=== PATIENT | female | born 1965 | race Caucasian/White ===

== ENCOUNTER 2020-04-02 09:37 | Emergency (ER) | payer MEDICAID, SELFPAY ==
[2020-04-02 09:44] VITALS: BP 117/71; BP 148/72; PULSE 120; PULSE 90; RESP 21; TEMP 36.7; O2SAT 96; O2SAT 99; BMI 31.5
[2020-04-02 09:53] VITALS: BP 117/71; PULSE 90; RESP 21; TEMP 36.7; O2SAT 97; BMI 31.1
--- NOTE | 2020-04-02 10:14 | XR_ITS ---
EXAMINATION: CHEST X-RAY CLINICAL INFORMATION: Chest pain COMPARISON: Previous chest x-ray January 2020 TECHNIQUE: AP portable chest FINDINGS: The cardiac and mediastinal contours are normal. The lungs are clear. There is no pleural effusion or pneumothorax. Bony structures are unremarkable. IMPRESSION: Unremarkable exam.
--- NOTE | 2020-04-02 10:19 | ED.CHESTPAIN ---
HPI - Chest Pain General Chief Complaint: Chest Pain Stated Complaint: CHEST PAIN,NITRO GIVEN Time Seen by Provider: 04/02/20 10:13 Source: patient and EMS Mode of arrival: EMS Limitations: no limitations History of Present Illness MD complaint: chest pain Onset (ago): day(s) (last night) Timing of current episode: constant Prior episodes: Yes Onset: during rest Pain location: substernal and left chest Pain radiation: left arm Severity: moderate Quality: heaviness Relieving factors: nothing Exacerbating factors: nothing Associated symptoms: dyspnea Treatment prior to arrival: nitroglycerin Related Data Home Medications Medication Instructions Recorded Confirmed Lipitor 04/02/20 amlodipine 04/02/20 clonazepam [Klonopin] 0.5 mg PO BID 04/02/20 04/02/20 gabapentin 100 mg PO DAILY 04/02/20 04/02/20 gabapentin 400 mg PO BEDTIME 04/02/20 04/02/20 iron 04/02/20 mirtazapine [Remeron] 30 mg PO BEDTIME 04/02/20 04/02/20 quetiapine [Seroquel] 50 mg PO BEDTIME 04/02/20 04/02/20 zolpidem [Ambien] 10 mg PO BEDTIME PRN 04/02/20 04/02/20 Allergies Allergy/AdvReac Type Severity Reaction Status Date / Time aspirin [ASA] Allergy Intermediate RASH, Unverified 03/19/20 15:41 nausea and vomiting ibuprofen [IBUPROFEN] Allergy Intermediate RASH Unverified 03/19/20 15:41 nicotine Allergy Intermediate RASH FROM Unverified 03/19/20 15:41 NICOTINE PATCH, nausea and vomiting ketorolac [From TORADOL] Allergy Mild RAPID HR Unverified 03/19/20 15:41 AND HIVES fentanyl Allergy Unknown Verified 01/02/20 00:00 Motrin AdvReac Unknown nausea and Uncoded 01/02/20 00:00 vomiting Review of Systems Review of Systems: Constitutional : No Weight loss, No Fever, No Chills ENT/Mouth : No Hearing loss, No Ear Pain Eyes: No Eye Pain, No Swelling Cardiovascular : pos Chest Pain, pos SOB, no Dyspnea on Exertion, No Orthopnea, No Edema, No Palpitations Respiratory : No Cough, No Sputum Gastrointestinal : pos Nausea, No Vomiting, No Diarrhea, No abdominal Pain, No Hematochezia, No Melena Genitourinary : No Urgency, No Flank Pain Musculoskeletal : No joint pain, No Myalgias, No Joint Swelling Skin : No Skin Lesions, No rash Neuro : No Weakness, No Numbness, NoDizziness, No Headache Psych : No Anxiety/Panic, No Depression Heme/Lymph: No Bruising, No Bleeding,No Lymphadenopathy Endocrine : No Polyuria, No Polydipsia PMFSH Past Medical History Attestation statement: The following information was validated with the patient. Medical History Anemia delivery delivered DVT (deep venous thrombosis) HTN (hypertension) Hypercholesteremia Kidney stones Surgical History Total knee replacement status Social History Social History Alcohol intake: never Smoking Status: Current every day smoker Smoked in Last 30 Days: Yes Use of substances other than those prescribed or required for medical reasons: No Advance Directives: No Advance Directives Information Provided: No Physical Exam Vital Signs and I&O and Narrative: Vital Signs and I&O: Vital Signs Temp 98.1 F 04/02/20 09:53 Pulse 75 04/02/20 10:34 Resp 12 04/02/20 11:31 BP 134/69 04/02/20 11:31 Pulse Ox 98 04/02/20 11:31 Intake & Output 04/01/20 04/02/20 04/02/20 18:59 06:59 18:59 Weight 74.642 kg Body Mass Index 31.1 Const: General: cooperative, healthy appearing, comfortable and no acute distress Orientation/consciousness: oriented to person, oriented to place, oriented to time and patient oriented x3 HENMT: Head: Yes normal to inspection Mouth: Normal oral and palatal mucosa present Eyes: Eyelids: Yes eyelids normal Pupils: Equal, round and reactive pupils present Neck: Neck: Yes normal visual inspection and Yes trachea midline Chest: Chest palpation & inspection: normal inspection of the chest and normal palpation of entire chest wall Resp: Effort & Inspection: normal respiratory effort and able to speak in complete sentences Auscultation: clear to auscultation bilaterally Cardio: Rate: regular rate Rhythm: regular rhythm Peripheral pulses: Peripheral pulses 2+ throughout GI: Inspection: Yes normal to inspection Palpation (GI): Soft to palpation and nontender Skin: General skin exam: no rashes or lesions noted Neuro: General: oriented to person, oriented to place, oriented to time and patient oriented x3 Cranial nerves: Yes CN's II-XII intact bilaterally and Yes Equal, round and reactive pupils present Cognition (Neuro): normal cognition Motor exam (neuro): 5/5 motor strength present throughout Sensory Exam: Normal double simultaneous stimulation for sensation Extrem: General: Yes normal to inspection and Yes no pedal edema Psych: Appearance: grossly normal Mental Status: mental status grossly normal Speech and movement: Normal speech and movement present Course Course Hospital Course: no acute findings the patient now wants to leave at this time, negative EKG and troponin stable for DC MDM - Chest Pain MDM Narrative Medical decision making narrative: patient on AC therapy because of recent DVT has been compliant - PE seems unlikely reports chest pain since last night with some nausea and dyspnea, has a hx of chest pain with negative workup, will obtain labs, EKG, troponin x 1, CXR, PO medications, has allergy to ASA and reports no improvement with nitro Lab Data Result diagrams: 04/02/20 10:47 04/02/20 10:47 Labs: Lab Results 04/02/20 04/02/20 04/02/20 Range/Units 10:47 10:47 10:47 WBC 5.8 (4.8-10.8) X10*3/uL RBC 4.09 L (4.20-5.50) X10*6/uL Hgb 10.9 L (12.0-16.0) g/dl Hct 34.1 L (37-47) % MCV 83.4 (80-98) fL MCH 26.7 L (27.0-33.0) pg MCHC 32.0 (31.0-35.0) g/dl RDW 14.2 (11.0-16.0) % Plt Count 225 (160-400) X10*3/uL MPV 9.5 (9.4-12.3) fL Immature Gran % (Auto) 0.3 (0.0-0.4) % Neut % (Auto) 72.2 (45-73) % Lymph % (Auto) 19.2 L (20-40) % [place] % (Auto) 7.3 (2-11) % Eos % (Auto) 0.7 (0-4) % Baso % (Auto) 0.3 (0-2) % Neut # (Auto) 4.2 (2.0-8.3) X10*3/uL Lymph # (Auto) 1.1 L (1.2-4.9) X10*3/uL [place] # (Auto) 0.4 (0.1-1.2) X10*3/uL Eos # (Auto) 0.0 (0.0-0.4) X10*3/uL Baso # (Auto) 0.0 (0.0-0.2) X10*3/uL Abs Immat Gran (auto) 0.02 (0.00-0.03) X10*3/uL Absolute Nucleated RBC 0.000 (0.0-0.012) X10*3/uL Nucleated RBC % (auto) 0.0 (0.0-0.2) /100WBC Hold Blue Top SEE NOTE Sodium 137 (135-145) mmol/L Potassium 4.0 (3.3-5.1) mmol/l Chloride 103 (96-108) mmol/L Carbon Dioxide 26 (22-29) mmol/L Anion Gap 12 (12-20) BUN 12 (9-16) mg/dL Estim Creat Clear Calc 77.3 Estimated GFR > 60 Random Glucose 121 H (60-115) mg/dL Calcium 9.0 (8.4-10.2) mg/dL Magnesium 1.7 (1.6-2.6) mg/dL Total Bilirubin 0.2 (0.0-1.0) mg/dL Direct Bilirubin < 0.2 (0.0-0.5) mg/dL AST 35 H (5-31) U/L ALT 56 H (0-31) U/L Alkaline Phosphatase 110 (39-117) U/L Troponin I High Sens (<3.5-17.0) ng/L Total Protein 6.7 (6.5-8.0) g/dL Albumin 4.2 (3.5-5.0) g/dL Lipase 36 (8-78) U/L 04/02/20 Range/Units 10:47 WBC (4.8-10.8) X10*3/uL RBC (4.20-5.50) X10*6/uL Hgb (12.0-16.0) g/dl Hct (37-47) % MCV (80-98) fL MCH (27.0-33.0) pg MCHC (31.0-35.0) g/dl RDW (11.0-16.0) % Plt Count (160-400) X10*3/uL MPV (9.4-12.3) fL Immature Gran % (Auto) (0.0-0.4) % Neut % (Auto) (45-73) % Lymph % (Auto) (20-40) % Doug[place] % (Auto) (2-11) % Eos % (Auto) (0-4) % Baso % (Auto) (0-2) % Neut # (Auto) (2.0-8.3) X10*3/uL Lymph # (Auto) (1.2-4.9) X10*3/uL [place] # (Auto) (0.1-1.2) X10*3/uL Eos # (Auto) (0.0-0.4) X10*3/uL Baso # (Auto) (0.0-0.2) X10*3/uL Abs Immat Gran (auto) (0.00-0.03) X10*3/uL Absolute Nucleated RBC (0.0-0.012) X10*3/uL Nucleated RBC % (auto) (0.0-0.2) /100WBC Hold Blue Top Sodium (135-145) mmol/L Potassium (3.3-5.1) mmol/l Chloride (96-108) mmol/L Carbon Dioxide (22-29) mmol/L Anion Gap (12-20) BUN (9-16) mg/dL Estim Creat Clear Calc Estimated GFR Random Glucose (60-115) mg/dL Calcium (8.4-10.2) mg/dL Magnesium (1.6-2.6) mg/dL Total Bilirubin (0.0-1.0) mg/dL Direct Bilirubin (0.0-0.5) mg/dL AST (5-31) U/L ALT (0-31) U/L Alkaline Phosphatase (39-117) U/L Troponin I High Sens < 3.5 (<3.5-17.0) ng/L Total Protein (6.5-8.0) g/dL Albumin (3.5-5.0) g/dL Lipase (8-78) U/L ECG Data ECG #1: Attestation: I personally reviewed and interpreted this ECG as follows: ECG interpretation date: 04/02/20 ECG interpretation time: 10:20 Prior ECG tracings: available for review Pacemaker model: normal sinus rhythm 87 normal axis, normal qrs, normal qTc, normal ST T wav Discharge Plan Discharge Clinical Impression: Chest pain Patient Disposition: Home, Self-Care Instructions: Chest Pain (ED) Prescriptions: No Action clonazepam [Klonopin] 0.5 mg Tablet 0.5 mg PO BID RF: 0 gabapentin 400 mg Capsule 400 mg PO BEDTIME RF: 0 mirtazapine [Remeron] 30 mg Tablet 30 mg PO BEDTIME RF: 0 zolpidem [Ambien] 10 mg Tablet 10 mg PO BEDTIME PRN (Reason: Sleep) RF: 0 gabapentin 100 mg Tablet 100 mg PO DAILY RF: 0 quetiapine [Seroquel] 50 mg Tablet 50 mg PO BEDTIME RF: 0 Lipitor RF: 0 amlodipine RF: 0 iron RF: 0 Referrals: Amber Quiroz MD [Primary Care Provider] - 04/06/20
[2020-04-02] MEDS: Acetaminophen 325 MG TABLET 650 MG PO (10:31)
[2020-04-02] MEDS: Cyclobenzaprine HCl 10 MG TABLET PO (10:32)
[2020-04-02 10:34] VITALS: BP 142/76; PULSE 75; RESP 14; O2SAT 99
[2020-04-02 10:55] LABS: MANUAL DIFF FLAG NO
[2020-04-02 10:57] LABS: Basophils Percent Auto 0.3 % (0-2); Eosinophils Percent Auto 0.7 % (0-4); Hematocrit 34.1 % (37-47); Hemoglobin 10.9 g/dl (12.0-16.0); Imm Gran Abs Auto 0.02 X10*3/uL (0.00-0.03); Imm Gran Pct Auto 0.3 % (0.0-0.4); Lymphocytes Absolute Auto 1.1 X10*3/uL (1.2-4.9); Lymphocytes Percent Auto 19.2 % (20-40); Mean Corpuscular Hemoglobin 26.7 pg (27.0-33.0); Mean Corpuscular Volume 83.4 fL (80-98); Mean Platelet Volume 9.5 fL (9.4-12.3); Monocytes Absolute Auto 0.4 X10*3/uL (0.1-1.2); Monocytes Percent Auto 7.3 % (2-11); Neutrophils Absolute Auto 4.2 X10*3/uL (2.0-8.3); Neutrophils Percent Auto 72.2 % (45-73); Platelet Count 225 X10*3/uL (160-400); Red Blood Count 4.09 X10*6/uL (4.20-5.50); Red Cell Distribution Width 14.2 % (11.0-16.0); White Blood Count 5.8 X10*3/uL (4.8-10.8)
[2020-04-02 11:25] LABS: Troponin-I High Sensitivity < 3.5 ng/L (<3.5-17.0)
[2020-04-02 11:26] LABS: Alanine Aminotransferase 56 U/L (0-31); Albumin Level 4.2 g/dL (3.5-5.0); Alkaline Phosphatase 110 U/L (39-117); Anion Gap 12 (12-20); Aspartate Amino Transferase 35 U/L (5-31); Bilirubin Direct < 0.2 mg/dL (0.0-0.5); Bilirubin Total 0.2 mg/dL (0.0-1.0); Blood Urea Nitrogen 12 mg/dL (9-16); Carbon Dioxide 26 mmol/L (22-29); Chloride 103 mmol/L (96-108); Glucose Random 121 mg/dL (60-115); Lipase 36 U/L (8-78); Magnesium 1.7 mg/dL (1.6-2.6); Sodium 137 mmol/L (135-145); Total Protein 6.7 g/dL (6.5-8.0)
[2020-04-02] MEDS: ondansetron HCL 4 MG/2 ML VIAL IVPUSH (11:30)
[2020-04-02 11:31] VITALS: BP 134/69; RESP 12; O2SAT 98
[2020-04-02 12:12] LABS: Creatinine Clr Calc Pharmacy 77.3; Estimated Glomerular Filt Rate > 60
[2020-04-02 12:22] VITALS: BP 144/71; PULSE 76; RESP 12
== END 2020-04-02 12:25 | disposition home or self-care (01) ==
PROVIDERS: Emergency Provider Emergency Medicine; PCP Family Medicine
DX: R07.9 Chest pain, unspecified (principal); I10 Essential (primary) hypertension; Z86.718 Personal history of other venous thrombosis and embolism; Z79.899 Other long term (current) drug therapy
CPT/HCPCS: 36415; 71045; 80048; 80076; 83690; 83735; 84484; 85025; 96374; 99284; J2405

== ENCOUNTER 2020-05-28 05:52 | Emergency (ER) | payer MEDICAID, SELFPAY ==
[2020-05-28 06:03] VITALS: BP 104/58; BP 115/74; PULSE 71; PULSE 74; RESP 18; TEMP 36.6; O2SAT 100; O2SAT 98; BMI 24.1
[2020-05-28 06:11] VITALS: BP 104/68; PULSE 71; RESP 16; TEMP 36.6; O2SAT 94
[2020-05-28 06:39] LABS: Glucose Urine UA NEG (NEG); Leukocyte Esterase Urine NEG (NEG); Nitrite Urine NEG (NEG); PH >= 9.0 (5.0-8.0); Urine Blood 1+ (NEG); Urine Ketones NEG (NEG); Urine Protein NEG (NEG-TRACE)
[2020-05-28 06:40] LABS: Appearance Urine HAZY; Color Urine STRAW
[2020-05-28 06:46] LABS: Bacteria Urine 3+ /LPF; RBC Urine 0 /HPF (0); WBC Urine 0 /HPF (0-4)
[2020-05-28 07:21] LABS: Amphetamine Screen Urine Not Detected (Not Detect); Barbiturates, Urine Not Detected (Not Detect); Benzodiazepines Screen Urine Not Detected (Not Detect); Cannabinoid Screen Urine Not Detected (Not Detect); Cocaine Screen Urine Not Detected (Not Detect); Opiate Screen Urine Not Detected (Not Detect); Phencyclidine Screen Urine Not Detected (Not Detect)
--- NOTE | 2020-05-28 07:30 | CT_ITS ---
EXAMINATION: CT ABDOMEN AND PELVIS WITHOUT CONTRAST CLINICAL INFORMATION: Bilateral flank pain. COMPARISON: 03/24/2020 TECHNIQUE: Multidetector volumetric imaging was performed from the superior aspect of the liver through the pubic symphysis. Sagittal and coronal reformatted images were obtained on the technologist's workstation. This CT examination was performed using dose optimization techniques as appropriate, variously including the following: *Automated exposure control *Adjustment of mA and/or kV according to patient size (this includes techniques or standardized protocols for targeted exams where dose is matched to indication/reason for exam; i.e. extremities or head) *Use of iterative reconstruction technique DLP: 546 mGy-cm FINDINGS: LUNG BASES: Minimal hazy opacity, likely atelectasis, in lower lobes. No focal consolidation or pleural effusion at either lung base. LIVER: The liver has normal size, shape, and attenuation. No focal liver lesion. GALLBLADDER AND BILIARY TREE: No radiopaque gallstones, wall thickening or pericholecystic fluid. No intrahepatic or extrahepatic bile duct dilatation. PANCREAS: Normal. No evidence of pancreatic ductal dilatation or mass. SPLEEN: Normal. ADRENAL GLANDS: Normal. KIDNEYS AND URETERS: Kidneys are normal in size. 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 0.3 cm stone in the interpolar region of the right kidney. No hydronephrosis or perinephric edema. The ureters are unremarkable. BOWEL AND PERITONEUM: Stomach is unremarkable. No dilated loops of bowel. The appendix is normal. Moderate to large amount of fecal material is present in the nondilated colon. No fecal impaction in the rectum. No overt bowel wall thickening or mesenteric fat stranding. No ascites or pneumoperitoneum. ABDOMINAL WALL: There is a very small fat-containing umbilical hernia. VASCULATURE: Unremarkable. LYMPH NODES: No pathologic sized lymph nodes in the abdomen or pelvis. No inguinal lymphadenopathy. BLADDER AND PELVIC VISCERA: The urinary bladder is empty and, therefore, suboptimally evaluated. No bladder calculi. The uterus and adnexa are unremarkable. SKELETAL: The visualized lower thoracic and lumbar vertebra have normal height and alignment. Moderate facet arthropathy of L4-5 and L5-S1. No aggressive osseous lesions. CT/CT abdomen pelvis wo con IMPRESSION: * No acute imaging abnormalities in the abdomen or pelvis compared to 03/24/2020. * Small stone is present within the right kidney. No evidence of ureterolithiasis or hydroureteronephrosis. 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 * The appendix is normal. No inflammatory change or obstruction along the gastrointestinal tract.
--- NOTE | 2020-05-28 07:30 | PC.NURSE ---
this rn and md to bedside. pt is very drowsy, upon exam shows no signs of pain to either flank. pt keeps saying yes to every question. pt to bathroom for ua and aware of plan of care for labs and ? ct
--- NOTE | 2020-05-28 07:38 | ED.GENADULT ---
HPI - General Adult General Chief complaint: General Medical Stated complaint: lbp Time Seen by Provider: 05/28/20 07:23 History of Present Illness HPI narrative: Patient is a 54-year-old female presents today with having abdominal pain. The pain is dull in nature in both flank area as well. Positive nausea no vomiting. No diarrhea. No coughing or congestion or upper respiratory symptoms. No chest pain no shortness of breath. No bloody urine. Patient from home. Question history of kidney stones in the past. Question pain on urination.. MD complaint: Related Data Home Medications Medication Instructions Recorded Confirmed Lipitor 04/02/20 amlodipine 04/02/20 clonazepam [Klonopin] 0.5 mg PO BID 04/02/20 04/02/20 gabapentin 100 mg PO DAILY 04/02/20 04/02/20 gabapentin 400 mg PO BEDTIME 04/02/20 04/02/20 iron 04/02/20 mirtazapine [Remeron] 30 mg PO BEDTIME 04/02/20 04/02/20 quetiapine [Seroquel] 50 mg PO BEDTIME 04/02/20 04/02/20 zolpidem [Ambien] 10 mg PO BEDTIME PRN 04/02/20 04/02/20 Allergies Allergy/AdvReac Type Severity Reaction Status Date / Time aspirin [ASA] Allergy Intermediate RASH, Verified 05/28/20 06:09 nausea and vomiting ibuprofen [IBUPROFEN] Allergy Intermediate RASH Verified 05/28/20 06:09 nicotine Allergy Intermediate RASH FROM Verified 05/28/20 06:09 NICOTINE PATCH, nausea and vomiting ketorolac [From TORADOL] Allergy Mild RAPID HR Verified 05/28/20 06:09 AND BOBBI Motrin AdvReac Unknown nausea and Uncoded 01/02/20 00:00 vomiting Review of Systems Review of Systems: Constitutional: No Weight loss, No Fever, No Chills, No Night Sweats, No Fatigue, No Malaise ENT/Mouth: No Hearing loss, No Ear Pain, No Nasal Congestion, No Sinus Pain, No Hoarseness, No sore throat, No Rhinorrhea, No Swallowing Difficulty Eyes: No Eye Pain, No Swelling, No Redness, No Foreign Body, No Discharge, No Vision Changes Cardiovascular: No Chest Pain, No SOB, No Dyspnea on Exertion, No Orthopnea, No Edema, No Palpitations Respiratory: No Cough, No Sputum, No Wheezing, No Smoke Exposure, No Dyspnea Gastrointestinal: Positive Nausea, No Vomiting, No Diarrhea, No Constipation, positive abdominal Pain, No Hematochezia, No Melena Genitourinary: no irregular bleeding, No Dysuria, No Urinary Frequency, No Hematuria, No Urinary Incontinence, No Urgency, No Flank Pain, No Urinary Flow Changes, No Hesitancy Musculoskeletal: No joint pain, No Myalgias, No Joint Swelling Skin: No Skin Lesions, No rash Neuro: No Weakness, No Numbness, No Paresthesias, No Loss of Consciousness, No Dizziness, No Headache Psych: No Anxiety/Panic, No Depression, No SI/HI/AH/VH, No Social Issues, Heme/Lymph: No Bruising, No Bleeding,No Lymphadenopathy Endocrine: No Polyuria, No Polydipsia, No Temperature Intolerance [facility] Past Medical History Medical History Anemia delivery delivered DVT (deep venous thrombosis) HTN (hypertension) Hypercholesteremia Kidney stones Surgical History Total knee replacement status Social History Social History Alcohol intake: never Smoking Status: Current every day smoker Use of substances other than those prescribed or required for medical reasons: No Advance Directives: No Physical Exam Vital Signs: Vital Signs: Last Vital Signs Temp 98 F 05/28/20 06:11 Pulse 71 05/28/20 06:11 Resp 16 05/28/20 06:11 BP 104/68 05/28/20 06:11 Pulse Ox 94 05/28/20 06:11 Body Mass Index 24.1 Appearance: Alert. Oriented X3. No acute distress. Eyes: Pupils equal, round and reactive to light. ENT: Pharynx normal. Neck: Normal inspection. Neck supple. No lymph nodes noted. No crepitus CVS: Normal heart rate and rhythm. Pulses normal. Normal S1 and S2 Respiratory: No respiratory distress. Breath sounds normal. No Wheezing. No rales Abdomen: Soft and nontender. No rigidity. No distention. good BS x4 Skin: Skin warm and dry. Normal skin color. Normal skin turgor. Extremities: No lower extremity edema. Neurovascular intact to all extremities. No Lacerations. No Rash Neuro: Oriented X 3. No motor deficit. No sensory deficit. Moving all extermities. No slurred speech Medical Decision Making MDM Narrative Medical decision making narrative: CT scan of the abdomen pelvis did not show any acute evidence of abscess, perforation. No kidney stones noted. No obstruction noted. Patient's electrolytes unremarkable. Urine negative for infection. Will discharge patient home close follow-up on an outpatient basis Lab Data Result diagrams: 05/28/20 08:00 05/28/20 08:01 Labs: Lab Results 05/28/20 05/28/20 05/28/20 Range/Units 06:30 06:30 08:00 WBC 6.5 (4.8-10.8) X10*3/uL RBC 3.71 L (4.20-5.50) X10*6/uL Hgb 10.0 L (12.0-16.0) g/dl Hct 31.7 L (37-47) % MCV 85.4 (80-98) fL MCH 27.0 (27.0-33.0) pg MCHC 31.5 (31.0-35.0) g/dl RDW 15.6 (11.0-16.0) % Plt Count 243 (160-400) X10*3/uL MPV 9.8 (9.4-12.3) fL Immature Gran % (Auto) 0.2 (0.0-0.4) % Neut % (Auto) 65.3 (45-73) % Lymph % (Auto) 25.9 (20-40) % [place] % (Auto) 7.2 (2-11) % Eos % (Auto) 1.1 (0-4) % Baso % (Auto) 0.3 (0-2) % Lymph # (Auto) 1.7 (1.2-4.9) X10*3/uL [place] # (Auto) 0.5 (0.1-1.2) X10*3/uL Eos # (Auto) 0.1 (0.0-0.4) X10*3/uL Baso # (Auto) 0.0 (0.0-0.2) X10*3/uL Abs Immat Gran (auto) 0.01 (0.00-0.03) X10*3/uL Absolute Neuts (auto) 4.3 (2.0-8.3) X10*3/uL Absolute Nucleated RBC 0.000 (0.0-0.012) X10*3/uL Nucleated RBC % (auto) 0.0 (0.0-0.2) /100WBC Sodium (135-145) mmol/L Potassium (3.3-5.1) mmol/l Chloride (96-108) mmol/L Carbon Dioxide (22-29) mmol/L Anion Gap (12-20) BUN (9-16) mg/dL Creatinine (0.5-1.4) mg/dL Estim Creat Clear Calc Estimated GFR Random Glucose (60-115) mg/dL Calcium (8.4-10.2) mg/dL Total Bilirubin (0.0-1.0) mg/dL Direct Bilirubin (0.0-0.5) mg/dL AST (5-31) U/L ALT (0-31) U/L Alkaline Phosphatase (39-117) U/L Total Protein (6.5-8.0) g/dL Albumin (3.5-5.0) g/dL Lipase (8-78) U/L Urine Color STRAW Urine Appearance HAZY Urine pH >= 9.0 H (5.0-8.0) Ur Specific [place] 1.010 (1.005-1.025) Urine Protein NEG (NEG-TRACE) MG/DL Urine Glucose (UA) NEG (NEG) MG/DL Urine Ketones NEG (NEG) MG/DL Urine Blood 1+ H (NEG) Urine Nitrite NEG (NEG) Ur Leukocyte Esterase NEG (NEG) Urine RBC 0 (0) /HPF Urine WBC 0 (0-4) /HPF Ur Squamous Epith Cells NONE /LPF Urine Bacteria 3+ /LPF Urine Opiates Screen Not Detected (Not Detect) Ur Barbiturates Screen Not Detected (Not Detect) Ur Phencyclidine Scrn Not Detected (Not Detect) Ur Amphetamines Screen Not Detected (Not Detect) U Benzodiazepines Scrn Not Detected (Not Detect) Urine Cocaine Screen Not Detected (Not Detect) U Marijuana (THC) Screen Not Detected (Not Detect) 05/28/20 05/28/20 Range/Units 08:01 08:01 WBC (4.8-10.8) X10*3/uL RBC (4.20-5.50) X10*6/uL Hgb (12.0-16.0) g/dl Hct (37-47) % MCV (80-98) fL MCH (27.0-33.0) pg MCHC (31.0-35.0) g/dl RDW (11.0-16.0) % Plt Count (160-400) X10*3/uL MPV (9.4-12.3) fL Immature Gran % (Auto) (0.0-0.4) % Neut % (Auto) (45-73) % Lymph % (Auto) (20-40) % [place] % (Auto) (2-11) % Eos % (Auto) (0-4) % Baso % (Auto) (0-2) % Lymph # (Auto) (1.2-4.9) X10*3/uL [place] # (Auto) (0.1-1.2) X10*3/uL Eos # (Auto) (0.0-0.4) X10*3/uL Baso # (Auto) (0.0-0.2) X10*3/uL Abs Immat Gran (auto) (0.00-0.03) X10*3/uL Absolute Neuts (auto) (2.0-8.3) X10*3/uL Absolute Nucleated RBC (0.0-0.012) X10*3/uL Nucleated RBC % (auto) (0.0-0.2) /100WBC Sodium 138 (135-145) mmol/L Potassium 4.0 (3.3-5.1) mmol/l Chloride 106 (96-108) mmol/L Carbon Dioxide 25 (22-29) mmol/L Anion Gap 11 L (12-20) BUN 13 (9-16) mg/dL Creatinine 0.76 (0.5-1.4) mg/dL Estim Creat Clear Calc 68.5 Estimated GFR > 60 Random Glucose 106 (60-115) mg/dL Calcium 8.3 L D (8.4-10.2) mg/dL Total Bilirubin 0.4 (0.0-1.0) mg/dL Direct Bilirubin 0.2 (0.0-0.5) mg/dL AST 24 (5-31) U/L ALT 32 H (0-31) U/L Alkaline Phosphatase 98 (39-117) U/L Total Protein 6.4 L (6.5-8.0) g/dL Albumin 3.9 (3.5-5.0) g/dL Lipase 10 (8-78) U/L Urine Color YELLOW Urine Appearance CLEAR Urine pH 8.0 (5.0-8.0) Ur Specific [place] 1.010 (1.005-1.025) Urine Protein NEG (NEG-TRACE) MG/DL Urine Glucose (UA) NEG (NEG) MG/DL Urine Ketones NEG (NEG) MG/DL Urine Blood 1+ H (NEG) Urine Nitrite NEG (NEG) Ur Leukocyte Esterase NEG (NEG) Urine RBC 0-2 (0) /HPF Urine WBC 0 (0-4) /HPF Ur Squamous Epith Cells NONE /LPF Urine Bacteria 1+ /LPF Urine Opiates Screen (Not Detect) Ur Barbiturates Screen (Not Detect) Ur Phencyclidine Scrn (Not Detect) Ur Amphetamines Screen (Not Detect) U Benzodiazepines Scrn (Not Detect) Urine Cocaine Screen (Not Detect) U Marijuana (THC) Screen (Not Detect) Discharge Plan Discharge Clinical Impression: Abdominal pain Patient Disposition: Home, Self-Care Instructions: Abdominal Pain (ED) Prescriptions: No Action clonazepam [Klonopin] 0.5 mg Tablet 0.5 mg PO BID RF: 0 gabapentin 400 mg Capsule 400 mg PO BEDTIME RF: 0 mirtazapine [Remeron] 30 mg Tablet 30 mg PO BEDTIME RF: 0 zolpidem [Ambien] 10 mg Tablet 10 mg PO BEDTIME PRN (Reason: Sleep) RF: 0 gabapentin 100 mg Tablet 100 mg PO DAILY RF: 0 quetiapine [Seroquel] 50 mg Tablet 50 mg PO BEDTIME RF: 0 Lipitor RF: 0 amlodipine RF: 0 iron RF: 0 Referrals: [facility] [Primary Care Provider] - 2 days Print Language: Turkmen
[2020-05-28 08:09] LABS: MANUAL DIFF FLAG NO
[2020-05-28 08:13] LABS: Basophils Percent Auto 0.3 % (0-2); Eosinophils Absolute Auto 0.1 X10*3/uL (0.0-0.4); Eosinophils Percent Auto 1.1 % (0-4); Hematocrit 31.7 % (37-47); Imm Gran Abs Auto 0.01 X10*3/uL (0.00-0.03); Imm Gran Pct Auto 0.2 % (0.0-0.4); Lymphocytes Absolute Auto 1.7 X10*3/uL (1.2-4.9); Lymphocytes Percent Auto 25.9 % (20-40); Mean Corpuscular HGB Conc 31.5 g/dl (31.0-35.0); Mean Corpuscular Volume 85.4 fL (80-98); Mean Platelet Volume 9.8 fL (9.4-12.3); Monocytes Absolute Auto 0.5 X10*3/uL (0.1-1.2); Monocytes Percent Auto 7.2 % (2-11); Neutrophils Absolute Auto 4.3 X10*3/uL (2.0-8.3); Neutrophils Percent Auto 65.3 % (45-73); Platelet Count 243 X10*3/uL (160-400); Red Blood Count 3.71 X10*6/uL (4.20-5.50); Red Cell Distribution Width 15.6 % (11.0-16.0); White Blood Count 6.5 X10*3/uL (4.8-10.8)
[2020-05-28 08:14] LABS: Glucose Urine UA NEG (NEG); Leukocyte Esterase Urine NEG (NEG); Nitrite Urine NEG (NEG); UACC Culture Trigger NO; Urine Blood 1+ (NEG); Urine Ketones NEG (NEG); Urine Protein NEG (NEG-TRACE)
[2020-05-28 08:15] LABS: Appearance Urine CLEAR; Color Urine YELLOW
[2020-05-28 08:40] LABS: Alanine Aminotransferase 32 U/L (0-31); Albumin Level 3.9 g/dL (3.5-5.0); Alkaline Phosphatase 98 U/L (39-117); Anion Gap 11 (12-20); Aspartate Amino Transferase 24 U/L (5-31); Bilirubin Direct 0.2 mg/dL (0.0-0.5); Bilirubin Total 0.4 mg/dL (0.0-1.0); Blood Urea Nitrogen 13 mg/dL (9-16); Calcium 8.3 mg/dL (8.4-10.2); Carbon Dioxide 25 mmol/L (22-29); Chloride 106 mmol/L (96-108); Creatinine Clr Calc Pharmacy 68.5; Estimated Glomerular Filt Rate > 60; Glucose Random 106 mg/dL (60-115); Lipase 10 U/L (8-78); Sodium 138 mmol/L (135-145); Total Protein 6.4 g/dL (6.5-8.0)
[2020-05-28 08:42] LABS: Bacteria Urine 1+ /LPF; RBC Urine 0-2 /HPF (0); WBC Urine 0 /HPF (0-4)
[2020-05-28] MEDS: 0.9 % Sodium Chloride 1,000 ML 999 ML IVCONT (08:45)
--- NOTE | 2020-05-28 09:28 | PC.NURSE ---
pt woken up for the second time and made aware that she is discharged and can get dressed to go home.
== END 2020-05-28 09:45 | disposition home or self-care (01) ==
PROVIDERS: Emergency Provider Emergency Medicine Emergency Medical Services
DX: R10.9 Unspecified abdominal pain (principal); I10 Essential (primary) hypertension; F17.200 Nicotine dependence, unspecified, uncomplicated; Z71.6 Tobacco abuse counseling; Z79.899 Other long term (current) drug therapy
CPT/HCPCS: 36415; 74176; 80048; 80076; 80307; 81001; 81003; 83690; 85025; 87086; 96361; 96374; 99284

== ENCOUNTER 2020-06-24 18:14 | Emergency (ER) | payer MEDICAID, SELFPAY ==
--- NOTE | 2020-06-24 18:20 | ED.ABDPAIN ---
HPI - Abdominal Pain General Chief Complaint: Abdominal Pain Stated Complaint: abd pain/vomiting Time Seen by Provider: 06/24/20 18:26 Source: patient and EMS Mode of arrival: EMS Limitations: no limitations History of Present Illness HPI narrative: 54-year-old female with past medical history of anemia, arthritis, asthma, COPD, GERD, headaches, hypertension, history of kidney stones with lithotripsy, cardiac murmur, substance abuse, and pancreatitis presents via EMS for 2 days of nausea, vomiting, right flank pain and hematuria. Patient states to have 10/10 pain, feels like something is clawing inside of her kidney, denies fevers, chills, chest pain or pressure, palpitations, shortness of breath, abdominal distention, dysuria, and edema. MD elicited complaint: flank pain Pertinent past history: kidney stones Onset (ago): day(s) (2) Pain Consistency: constant Location: RLQ, LLQ, L flank, R flank and groin Severity: severe Pain scale (0-10): 10 Quality: stabbing and sharp Radiation: bilateral flank Exacerbating factors: vomiting and movement Relieving factors: nothing Associated symptoms: nausea, vomiting and hematuria Treatments prior to arrival: NSAIDs Related Data Home Medications Medication Instructions Recorded Confirmed Lipitor 04/02/20 amlodipine 04/02/20 clonazepam [Klonopin] 0.5 mg PO BID 04/02/20 04/02/20 gabapentin 100 mg PO DAILY 04/02/20 04/02/20 gabapentin 400 mg PO BEDTIME 04/02/20 04/02/20 iron 04/02/20 mirtazapine [Remeron] 30 mg PO BEDTIME 04/02/20 04/02/20 quetiapine [Seroquel] 50 mg PO BEDTIME 04/02/20 04/02/20 zolpidem [Ambien] 10 mg PO BEDTIME PRN 04/02/20 04/02/20 Previous Rx's Medication Instructions Recorded nitrofurantoin monohyd/m-cryst 100 mg PO Q12H 7 Days #14 cap 06/24/20 [Macrobid] phenazopyridine [Pyridium] 200 mg PO TID PRN 3 Days #7 tab 06/24/20 prednisone 20 mg PO DAILY 6 Days #6 tab 06/24/20 tamsulosin 0.4 mg PO DAILY #14 cap 06/24/20 Allergies Allergy/AdvReac Type Severity Reaction Status Date / Time aspirin [ASA] Allergy Intermediate RASH, Verified 05/28/20 06:09 nausea and vomiting ibuprofen [IBUPROFEN] Allergy Intermediate RASH Verified 05/28/20 06:09 nicotine Allergy Intermediate RASH FROM Verified 05/28/20 06:09 NICOTINE PATCH, nausea and vomiting ketorolac [From TORADOL] Allergy Mild RAPID HR Verified 05/28/20 06:09 AND HIVES Review of Systems Review of Systems Constitutional: No Fever, No Chills ENT/Mouth: No sore throat Eyes: No Eye Pain, No Swelling, No Redness Cardiovascular: No Chest Pain, No SOB Respiratory: No Cough, No Sputum, No Wheezing Gastrointestinal: positive Nausea, positive Vomiting, No Diarrhea, positive abdominal pain Genitourinary: No Dysuria, positive urinary frequency, positive Hematuria, positive Flank Pain, no hesitancy Musculoskeletal: No joint pain, No Myalgias Skin: No Skin Lesions, No rash Neuro: No Weakness, No Numbness, No Headache Psych: No Anxiety/Panic, No Depression Heme/Lymph: No Bruising, No Lymphadenopathy Endocrine: No Polyuria, No Polydipsia Yes all other systems are reviewed and are negative Physical Exam Vital Signs: Vital Signs: Last Vital Signs Temp 98.8 F 06/24/20 19:44 Pulse 74 06/24/20 19:44 Resp 16 06/24/20 19:44 BP 131/69 06/24/20 19:44 Pulse Ox 99 06/24/20 19:44 Body Mass Index 27.9 Appearance: Alert. Oriented X3. Moderate distress. Eyes: Pupils equal, round and reactive to light. ENT: Pharynx normal. Neck: Normal inspection. Neck supple. CVS: Normal heart rate and rhythm. Pulses normal. Respiratory: No respiratory distress. Breath sounds normal. Abdomen: Soft and right lower quadrant and suprapubic tender to deep palpation, bilateral CVA tenderness Skin: Skin warm and dry. Normal skin color. Normal skin turgor. Extremities: No lower extremity edema. Neuro: No motor deficit. No sensory deficit. Course Course Course Narrative: 54-year-old female presents with right flank pain, nausea, vomiting, and hematuria. We will order a L of fluid, morphine as she is allergic to Toradol, Zofran for nausea, kidney stone protocol tamsulosin and prednisone, and CT scan of the abdomen. Urinalysis is pending. CT positive for nonobstructing kidney stone and a non changing angio myoma. Urinalysis positive for UTI. Plan is to discharge with p.o. medications. Patient is requesting more narcotics, detailed description regarding proper use of narcotics and that patient does not meet the requirements for prescription. Patient verbalized understanding of and agrees to plan of care to discharge home. MDM - Abdominal Pain Differential Diagnosis Differential diagnosis: Likely abdominal pain, acute appendicitis, bowel perforation, calculus of kidney, ovarian cyst, pancreatitis, renal colic and small bowel obstruction Medical Records Attestation: I reviewed the patient's medical records. Lab Data Attestation: I reviewed the patient's lab results. Result diagrams: 06/24/20 18:59 06/24/20 18:59 Labs: Lab Results 06/24/20 06/24/20 06/24/20 Range/Units 18:59 18:59 18:59 WBC 5.4 (4.8-10.8) X10*3/uL RBC 4.07 L (4.20-5.50) X10*6/uL Hgb 11.1 L (12.0-16.0) g/dl Hct 35.4 L (37-47) % MCV 87.0 (80-98) fL MCH 27.3 (27.0-33.0) pg MCHC 31.4 (31.0-35.0) g/dl RDW 14.6 (11.0-16.0) % Plt Count 250 (160-400) X10*3/uL MPV 9.9 (9.4-12.3) fL Immature Gran % (Auto) 0.0 (0.0-0.4) % Neut % (Auto) 49.8 (45-73) % Lymph % (Auto) 39.8 (20-40) % Sac % (Auto) 8.1 (2-11) % Eos % (Auto) 1.9 (0-4) % Baso % (Auto) 0.4 (0-2) % Lymph # (Auto) 2.2 (1.2-4.9) X10*3/uL Sac # (Auto) 0.4 (0.1-1.2) X10*3/uL Eos # (Auto) 0.1 (0.0-0.4) X10*3/uL Baso # (Auto) 0.0 (0.0-0.2) X10*3/uL Abs Immat Gran (auto) 0.00 (0.00-0.03) X10*3/uL Absolute Neuts (auto) 2.7 (2.0-8.3) X10*3/uL Absolute Nucleated RBC 0.000 (0.0-0.012) X10*3/uL Nucleated RBC % (auto) 0.0 (0.0-0.2) /100WBC PT 11.5 (10.8-13.0) SEC INR 1.0 (0.9-1.1) APTT 35.0 (24.1-38.0) SEC Sodium 145 (135-145) mmol/L Potassium 3.4 (3.3-5.1) mmol/l Chloride 108 (96-108) mmol/L Carbon Dioxide 28 (22-29) mmol/L Anion Gap 12 (12-20) BUN 14 (9-16) mg/dL Creatinine 0.83 (0.5-1.4) mg/dL Estim Creat Clear Calc 67.1 Estimated GFR > 60 Random Glucose 167 H D (60-115) mg/dL Calcium 8.6 (8.4-10.2) mg/dL Total Bilirubin 0.3 (0.0-1.0) mg/dL Direct Bilirubin 0.2 (0.0-0.5) mg/dL AST 17 (5-31) U/L ALT 15 (0-31) U/L Alkaline Phosphatase 102 (39-117) U/L Total Protein 6.8 (6.5-8.0) g/dL Albumin 4.1 (3.5-5.0) g/dL Lipase 21 (8-78) U/L Urine Color Urine Appearance Urine pH (5.0-8.0) Ur Specific [place] (1.005-1.025) Urine Protein (NEG-TRACE) MG/DL Urine Glucose (UA) (NEG) MG/DL Urine Ketones (NEG) MG/DL Urine Blood (NEG) Urine Nitrite (NEG) Ur Leukocyte Esterase (NEG) Urine RBC (0) /HPF Urine WBC (0-4) /HPF Ur Squamous Epith Cells /LPF Urine Bacteria /LPF 06/24/20 Range/Units 19:49 WBC (4.8-10.8) X10*3/uL RBC (4.20-5.50) X10*6/uL Hgb (12.0-16.0) g/dl Hct (37-47) % MCV (80-98) fL MCH (27.0-33.0) pg MCHC (31.0-35.0) g/dl RDW (11.0-16.0) % Plt Count (160-400) X10*3/uL MPV (9.4-12.3) fL Immature Gran % (Auto) (0.0-0.4) % Neut % (Auto) (45-73) % Lymph % (Auto) (20-40) % Sac % (Auto) (2-11) % Eos % (Auto) (0-4) % Baso % (Auto) (0-2) % Lymph # (Auto) (1.2-4.9) X10*3/uL Sac # (Auto) (0.1-1.2) X10*3/uL Eos # (Auto) (0.0-0.4) X10*3/uL Baso # (Auto) (0.0-0.2) X10*3/uL Abs Immat Gran (auto) (0.00-0.03) X10*3/uL Absolute Neuts (auto) (2.0-8.3) X10*3/uL Absolute Nucleated RBC (0.0-0.012) X10*3/uL Nucleated RBC % (auto) (0.0-0.2) /100WBC PT (10.8-13.0) SEC INR (0.9-1.1) APTT (24.1-38.0) SEC Sodium (135-145) mmol/L Potassium (3.3-5.1) mmol/l Chloride (96-108) mmol/L Carbon Dioxide (22-29) mmol/L Anion Gap (12-20) BUN (9-16) mg/dL Creatinine (0.5-1.4) mg/dL Estim Creat Clear Calc Estimated GFR Random Glucose (60-115) mg/dL Calcium (8.4-10.2) mg/dL Total Bilirubin (0.0-1.0) mg/dL Direct Bilirubin (0.0-0.5) mg/dL AST (5-31) U/L ALT (0-31) U/L Alkaline Phosphatase (39-117) U/L Total Protein (6.5-8.0) g/dL Albumin (3.5-5.0) g/dL Lipase (8-78) U/L Urine Color YELLOW Urine Appearance HAZY Urine pH 5.5 (5.0-8.0) Ur Specific [place] >= 1.030 H (1.005-1.025) Urine Protein NEG (NEG-TRACE) MG/DL Urine Glucose (UA) NEG (NEG) MG/DL Urine Ketones NEG (NEG) MG/DL Urine Blood 2+ H (NEG) Urine Nitrite NEG (NEG) Ur Leukocyte Esterase 1+ H (NEG) Urine RBC 1-4 (0) /HPF Urine WBC 5-9 H (0-4) /HPF Ur Squamous Epith Cells 1+ /LPF Urine Bacteria 2+ /LPF Imaging Data CT scan - abdomen: Attestation: I personally reviewed and interpreted this imaging study as follows: Radiologist's impression: EXAMINATION: CT ABDOMEN AND PELVIS WITHOUT CONTRAST CLINICAL INFORMATION: Right flank pain COMPARISON: CT of the abdomen and pelvis 05/28/2020 TECHNIQUE: Multidetector volumetric imaging was performed from the superior aspect of the liver through the pubic symphysis. Sagittal and coronal reformatted images were obtained on the technologist's workstation. This CT examination was performed using dose optimization techniques as appropriate, variously including the following: *Automated exposure control *Adjustment of mA and/or kV according to patient size (this includes techniques or standardized protocols for targeted exams where dose is matched to indication/reason for exam; i.e. extremities or head) *Use of iterative reconstruction technique DLP: 587 mGy-cm FINDINGS: LUNG BASES: The visualized lung bases are unremarkable. LIVER, GALLBLADDER, AND BILIARY TREE: The liver is normal in size, shape, and attenuation. No focal hepatic lesion or biliary ductal dilatation is present. The gallbladder is unremarkable with no evidence of radiopaque gallstones, gallbladder wall thickening, or obvious pericholecystic inflammatory changes. PANCREAS: Unremarkable. SPLEEN: Unremarkable. ADRENAL GLANDS: Unremarkable. KIDNEYS AND URETERS: The kidneys are normal in size, shape, and attenuation. No hydronephrosis or hydroureter. Again demonstrated is a 0.3 cm nonobstructive calculus in the interpolar region of the right kidney. There is also a 1.3 cm fat-containing lesion in the superior pole of the right kidney, likely in store marketing representative of a small angiomyolipoma. No perinephric stranding. BLADDER: Unremarkable. GASTROINTESTINAL TRACT: The stomach and small bowel are nondistended. Moderate amount of stool within the colon. Normal appendix. ABDOMINAL WALL: No significant hernia is appreciated. LYMPH NODES: Normal. VASCULAR: Normal caliber of the abdominal aorta. Minimal scattered atheromatous calcifications. PELVIC VISCERA: Unremarkable. OSSEOUS STRUCTURES: No acute or suspicious osseous abnormalities. CT/CT abdomen pelvis wo con IMPRESSION: No acute process within the abdomen or pelvis. Nonobstructive calculus in the right kidney is stable since the prior study. No ureteral calculi or hydronephrosis. 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 Normal appendix. No inflammatory change or obstruction. Chest x-ray: Attestation: I personally reviewed and interpreted this imaging study as follows: Discharge Plan Discharge Clinical Impression: Calculus of kidney UTI (urinary tract infection) Qualifiers: Urinary tract infection type: acute cystitis Hematuria presence: with hematuria Qualified Code(s): N30.01 - Acute cystitis with hematuria Patient Disposition: Home, Self-Care Instructions: Kidney Stones (ED), Urinary Tract Infection in Women (ED) Additional Instructions: You were evaluated for right flank pain. CT scan shows a nonobstructing small 3 mm kidney stone. Please follow-up with urology. We have prescribed Flomax and prednisone for you. You may take [id number] Tylenol and or Motrin as needed for pain management. Thank you for choosing this emergency department for evaluation. Please follow-up with primary care physician as needed. Return to the emergency department for any new, concerning, or worsening symptoms. Prescriptions: New tamsulosin 0.4 mg capsule 0.4 mg PO DAILY Qty: 14 RF: 0 prednisone 20 mg tablet 20 mg PO DAILY 6 Days Qty: 6 RF: 0 phenazopyridine [Pyridium] 200 mg tablet 200 mg PO TID PRN (Reason: pain) 3 Days Qty: 7 RF: 0 nitrofurantoin monohyd/m-cryst [Macrobid] 100 mg capsule 100 mg PO Q12H 7 Days Qty: 14 RF: 0 No Action clonazepam [Klonopin] 0.5 mg Tablet 0.5 mg PO BID RF: 0 gabapentin 400 mg Capsule 400 mg PO BEDTIME RF: 0 mirtazapine [Remeron] 30 mg Tablet 30 mg PO BEDTIME RF: 0 zolpidem [Ambien] 10 mg Tablet 10 mg PO BEDTIME PRN (Reason: Sleep) RF: 0 gabapentin 100 mg Tablet 100 mg PO DAILY RF: 0 quetiapine [Seroquel] 50 mg Tablet 50 mg PO BEDTIME RF: 0 Lipitor RF: 0 amlodipine RF: 0 iron RF: 0 Referrals: Jim Wing MD [Physician] - 2 days (renal stone) Interventions: ED Discharge Assessment Last Done: 06/24/20 20:41 Discharge Date/Time: 06/24/20 20:42 [facility] Past Medical History Attestation statement: The following information was validated with the patient. Source: old records reviewed Medical History Anemia delivery delivered DVT (deep venous thrombosis) HTN (hypertension) Hypercholesteremia Kidney stones Surgical History Total knee replacement status Social History Social History Alcohol intake: never Smoking Status: Current every day smoker Smoked in Last 30 Days: No Use of substances other than those prescribed or required for medical reasons: No Advance Directives: No Advance Directives Information Provided: Yes
--- NOTE | 2020-06-24 18:21 | ECG_ITS ---
Test Reason : ABD PAIN Blood Pressure : / mmHG Vent. Rate : 073 BPM Atrial Rate : 073 BPM P-R Int : 162 ms QRS Dur : 084 ms QT Int : 402 ms P-R-T Axes : 060 024 045 degrees QTc Int : 442 ms Normal sinus rhythm Normal ECG When compared with ECG of 02-APR-2020 10:13, No significant change was found Referred By: Belinda Buenrostro Electronically Signed By:BRENDEN KERN MD
[2020-06-24 18:22] VITALS: BP 150/65; BP 190/110; PULSE 110; PULSE 95; RESP 20; TEMP 37.2; O2SAT 98; BMI 27.9
[2020-06-24 18:40] VITALS: BP 141/96; PULSE 92; RESP 18; TEMP 37.2; O2SAT 98
[2020-06-24] MEDS: ondansetron HCL 4 MG/2 ML VIAL IVPUSH (18:56)
[2020-06-24] MEDS: Morphine Sulfate 4 MG/ML CARTRIDGE IVPUSH (18:57)
[2020-06-24] MEDS: Tamsulosin HCL 0.4 MG CAPSULE PO (18:57)
[2020-06-24] MEDS: predniSONE 20 MG TABLET PO (18:57)
[2020-06-24] MEDS: 0.9 % Sodium Chloride 1,000 ML 999 ML IVCONT (18:57)
[2020-06-24 19:10] LABS: MANUAL DIFF FLAG NO
[2020-06-24 19:11] LABS: Basophils Percent Auto 0.4 % (0-2); Eosinophils Absolute Auto 0.1 X10*3/uL (0.0-0.4); Eosinophils Percent Auto 1.9 % (0-4); Hematocrit 35.4 % (37-47); Hemoglobin 11.1 g/dl (12.0-16.0); Lymphocytes Absolute Auto 2.2 X10*3/uL (1.2-4.9); Lymphocytes Percent Auto 39.8 % (20-40); Mean Corpuscular HGB Conc 31.4 g/dl (31.0-35.0); Mean Corpuscular Hemoglobin 27.3 pg (27.0-33.0); Mean Platelet Volume 9.9 fL (9.4-12.3); Monocytes Absolute Auto 0.4 X10*3/uL (0.1-1.2); Monocytes Percent Auto 8.1 % (2-11); Neutrophils Absolute Auto 2.7 X10*3/uL (2.0-8.3); Neutrophils Percent Auto 49.8 % (45-73); Platelet Count 250 X10*3/uL (160-400); Red Blood Count 4.07 X10*6/uL (4.20-5.50); Red Cell Distribution Width 14.6 % (11.0-16.0); White Blood Count 5.4 X10*3/uL (4.8-10.8)
[2020-06-24 19:17] LABS: Prothrombin Time 11.5 SEC (10.8-13.0)
[2020-06-24 19:30] LABS: Alanine Aminotransferase 15 U/L (0-31); Albumin Level 4.1 g/dL (3.5-5.0); Alkaline Phosphatase 102 U/L (39-117); Anion Gap 12 (12-20); Aspartate Amino Transferase 17 U/L (5-31); Bilirubin Direct 0.2 mg/dL (0.0-0.5); Bilirubin Total 0.3 mg/dL (0.0-1.0); Blood Urea Nitrogen 14 mg/dL (9-16); Calcium 8.6 mg/dL (8.4-10.2); Carbon Dioxide 28 mmol/L (22-29); Chloride 108 mmol/L (96-108); Creatinine Clr Calc Pharmacy 67.1; Estimated Glomerular Filt Rate > 60; Glucose Random 167 mg/dL (60-115); Lipase 21 U/L (8-78); Potassium 3.4 mmol/l (3.3-5.1); Sodium 145 mmol/L (135-145); Total Protein 6.8 g/dL (6.5-8.0)
[2020-06-24 19:44] VITALS: BP 131/69; PULSE 74; RESP 16; TEMP 37.1; O2SAT 99
[2020-06-24 20:08] LABS: Glucose Urine UA NEG (NEG); Leukocyte Esterase Urine 1+ (NEG); Nitrite Urine NEG (NEG); PH 5.5 (5.0-8.0); Specific Gravity - Urine >= 1.030 (1.005-1.025); Urine Blood 2+ (NEG); Urine Ketones NEG (NEG); Urine Protein NEG (NEG-TRACE)
[2020-06-24 20:15] LABS: Appearance Urine HAZY; Color Urine YELLOW
[2020-06-24 20:29] LABS: Bacteria Urine 2+ /LPF; Squamous Epithelial Cell Urine 1+ /LPF
== END 2020-06-24 20:42 | disposition home or self-care (01) ==
PROVIDERS: Nurse Practitioner Family; Emergency Provider Emergency Medicine; PCP Family Medicine
DX: N20.0 Calculus of kidney (principal); N30.01 Acute cystitis with hematuria; I10 Essential (primary) hypertension; Z87.442 Personal history of urinary calculi
CPT/HCPCS: 36415; 74176; 80048; 80076; 81001; 81003; 83690; 85025; 85610; 85730; 87086; 93005; 96361; 96374; 96375; 99284; J2270; J2405

== ENCOUNTER 2020-06-30 05:47 | Emergency (ER) | payer MEDICAID, SELFPAY ==
[2020-06-30 05:55] VITALS: BP 101/47; PULSE 91; RESP 20; TEMP 36.4; O2SAT 97; BMI 26.0
[2020-06-30 06:00] VITALS: BP 101/47; PULSE 91; RESP 20; TEMP 36.4; O2SAT 97
--- NOTE | 2020-06-30 06:05 | ED.ABDPAIN ---
HPI - Abdominal Pain General Chief Complaint: Abdominal Pain Stated Complaint: flank pain Time Seen by Provider: 06/30/20 05:57 Related Data Home Medications Medication Instructions Recorded Confirmed Lipitor 04/02/20 amlodipine 04/02/20 clonazepam [Klonopin] 0.5 mg PO BID 04/02/20 04/02/20 gabapentin 100 mg PO DAILY 04/02/20 04/02/20 gabapentin 400 mg PO BEDTIME 04/02/20 04/02/20 iron 04/02/20 mirtazapine [Remeron] 30 mg PO BEDTIME 04/02/20 04/02/20 quetiapine [Seroquel] 50 mg PO BEDTIME 04/02/20 04/02/20 zolpidem [Ambien] 10 mg PO BEDTIME PRN 04/02/20 04/02/20 Previous Rx's Medication Instructions Recorded nitrofurantoin monohyd/m-cryst 100 mg PO Q12H 7 Days #14 cap 06/24/20 [Macrobid] phenazopyridine [Pyridium] 200 mg PO TID PRN 3 Days #7 tab 06/24/20 prednisone 20 mg PO DAILY 6 Days #6 tab 06/24/20 tamsulosin 0.4 mg PO DAILY #14 cap 06/24/20 Allergies Allergy/AdvReac Type Severity Reaction Status Date / Time aspirin [ASA] Allergy Intermediate RASH, Verified 05/28/20 06:09 nausea and vomiting ibuprofen [IBUPROFEN] Allergy Intermediate RASH Verified 05/28/20 06:09 nicotine Allergy Intermediate RASH FROM Verified 05/28/20 06:09 NICOTINE PATCH, nausea and vomiting ketorolac [From TORADOL] Allergy Mild RAPID HR Verified 05/28/20 06:09 AND HIVES Physical Exam Vital Signs: Vital Signs: Last Vital Signs Temp 97.6 F 06/30/20 05:55 Pulse 91 06/30/20 05:55 Resp 20 06/30/20 05:55 BP 101/47 L 06/30/20 05:55 Pulse Ox 97 06/30/20 05:55 Body Mass Index 26.0 Discharge Plan Discharge Prescriptions: No Action clonazepam [Klonopin] 0.5 mg Tablet 0.5 mg PO BID RF: 0 gabapentin 400 mg Capsule 400 mg PO BEDTIME RF: 0 mirtazapine [Remeron] 30 mg Tablet 30 mg PO BEDTIME RF: 0 zolpidem [Ambien] 10 mg Tablet 10 mg PO BEDTIME PRN (Reason: Sleep) RF: 0 gabapentin 100 mg Tablet 100 mg PO DAILY RF: 0 quetiapine [Seroquel] 50 mg Tablet 50 mg PO BEDTIME RF: 0 Lipitor RF: 0 amlodipine RF: 0 iron RF: 0 tamsulosin 0.4 mg capsule 0.4 mg PO DAILY Qty: 14 RF: 0 prednisone 20 mg tablet 20 mg PO DAILY 6 Days Qty: 6 RF: 0 phenazopyridine [Pyridium] 200 mg tablet 200 mg PO TID PRN (Reason: pain) 3 Days Qty: 7 RF: 0 nitrofurantoin monohyd/m-cryst [Macrobid] 100 mg capsule 100 mg PO Q12H 7 Days Qty: 14 RF: 0 PMFSH Past Medical History Medical History Anemia delivery delivered DVT (deep venous thrombosis) HTN (hypertension) Hypercholesteremia Kidney stones Surgical History Total knee replacement status Social History Social History Alcohol intake: never Smoking Status: Current every day smoker
[2020-06-30 06:18] LABS: Basophils Percent Auto 0.3 % (0-2); Eosinophils Absolute Auto 0.1 X10*3/uL (0.0-0.4); Eosinophils Percent Auto 0.7 % (0-4); Hematocrit 34.9 % (37-47); Hemoglobin 11.1 g/dl (12.0-16.0); Imm Gran Abs Auto 0.02 X10*3/uL (0.00-0.03); Imm Gran Pct Auto 0.3 % (0.0-0.4); Lymphocytes Absolute Auto 1.8 X10*3/uL (1.2-4.9); Mean Corpuscular HGB Conc 31.8 g/dl (31.0-35.0); Mean Corpuscular Hemoglobin 27.3 pg (27.0-33.0); Mean Corpuscular Volume 85.7 fL (80-98); Mean Platelet Volume 9.4 fL (9.4-12.3); Monocytes Absolute Auto 0.4 X10*3/uL (0.1-1.2); Monocytes Percent Auto 6.5 % (2-11); Neutrophils Absolute Auto 4.5 X10*3/uL (2.0-8.3); Neutrophils Percent Auto 65.2 % (45-73); Platelet Count 271 X10*3/uL (160-400); Red Blood Count 4.07 X10*6/uL (4.20-5.50); Red Cell Distribution Width 14.5 % (11.0-16.0); White Blood Count 6.8 X10*3/uL (4.8-10.8)
[2020-06-30 06:21] LABS: MANUAL DIFF FLAG NO
[2020-06-30] MEDS: 0.9 % Sodium Chloride 1,000 ML 999 ML IV (06:39)
[2020-06-30 06:40] VITALS: RESP 20
[2020-06-30] MEDS: fentaNYL citrate/PF 100 MCG/2 ML VIAL 25 MCG IVPUSH (06:40)
[2020-06-30 07:00] LABS: Alanine Aminotransferase 22 U/L (0-31); Albumin Level 4.5 g/dL (3.5-5.0); Alkaline Phosphatase 99 U/L (39-117); Anion Gap 15 (12-20); Aspartate Amino Transferase 24 U/L (5-31); Bilirubin Total 0.4 mg/dL (0.0-1.0); Blood Urea Nitrogen 8 mg/dL (9-16); Calcium 8.8 mg/dL (8.4-10.2); Carbon Dioxide 23 mmol/L (22-29); Chloride 107 mmol/L (96-108); Creatinine Clr Calc Pharmacy 68.2; Estimated Glomerular Filt Rate > 60; Glucose Random 119 mg/dL (60-115); Potassium 2.8 mmol/l (3.3-5.1); Sodium 142 mmol/L (135-145); Total Protein 7.2 g/dL (6.5-8.0)
[2020-06-30 07:17] LABS: Glucose Urine UA 100 MG/DL (NEG); Leukocyte Esterase Urine NEG (NEG); Nitrite Urine NEG (NEG); Specific Gravity - Urine <= 1.005 (1.005-1.025); Urine Blood NEG (NEG); Urine Ketones NEG (NEG); Urine Protein NEG (NEG-TRACE)
--- NOTE | 2020-06-30 07:18 | ED_ITS ---
HPI - General Adult General Chief complaint: Abdominal Pain Stated complaint: flank pain Time Seen by Provider: 06/30/20 05:57 Source: patient Mode of arrival: EMS Limitations: no limitations History of Present Illness HPI narrative: 54-year-old female who presents the emergency department for evaluation right-sided abdominal pain. The patient was seen in the emergency department on 06/24/2020 for similar complaint. She states that she has been having nausea and vomiting x2 weeks. She states she is vomiting 5-10 times a day. She states that since 06/23/2020 she has been experiencing right-sided abdominal pain. She states that the pain is a constant, grabbing like sensation which is 10/10. The pain is associated with nausea and vomiting. She states that she has had low-grade fever at home but did not check her temperature. She has had frequency and dysuria. When she was seen on 06/24/[address] scan of the abdomen pelvis without IV contrast that revealed a 3 mm right kidney stone with no obstruction and no ureteral stone, she also had a 1.3 cm fat containing lesion of the right kidney which consistent with an angiomyolipoma. Related Data Home Medications Medication Instructions Recorded Confirmed Lipitor 04/02/20 amlodipine 04/02/20 clonazepam [Klonopin] 0.5 mg PO BID 04/02/20 04/02/20 gabapentin 100 mg PO DAILY 04/02/20 04/02/20 gabapentin 400 mg PO BEDTIME 04/02/20 04/02/20 iron 04/02/20 mirtazapine [Remeron] 30 mg PO BEDTIME 04/02/20 04/02/20 quetiapine [Seroquel] 50 mg PO BEDTIME 04/02/20 04/02/20 zolpidem [Ambien] 10 mg PO BEDTIME PRN 04/02/20 04/02/20 Previous Rx's Medication Instructions Recorded nitrofurantoin monohyd/m-cryst 100 mg PO Q12H 7 Days #14 cap 06/24/20 [Macrobid] phenazopyridine [Pyridium] 200 mg PO TID PRN 3 Days #7 tab 06/24/20 prednisone 20 mg PO DAILY 6 Days #6 tab 06/24/20 tamsulosin 0.4 mg PO DAILY #14 cap 06/24/20 Allergies Allergy/AdvReac Type Severity Reaction Status Date / Time aspirin [ASA] Allergy Intermediate RASH, Verified 05/28/20 06:09 nausea and vomiting ibuprofen [IBUPROFEN] Allergy Intermediate RASH Verified 05/28/20 06:09 nicotine Allergy Intermediate RASH FROM Verified 05/28/20 06:09 NICOTINE PATCH, nausea and vomiting ketorolac [From TORADOL] Allergy Mild RAPID HR Verified 05/28/20 06:09 AND HIVES Review of Systems Review of Systems: Yes all other systems are reviewed and are negative Constitutional: Constitutional: Reports as per HPI Eyes: Eyes: Reports as per HPI ENT: Reports as per HPI Cardiovascular: Cardiovascular: Reports as per HPI Respiratory: Respiratory: Reports as per HPI Gastrointestinal: Gastrointestinal: Reports as per HPI Genitourinary: Genitourinary: Reports as per HPI Musculoskeletal: Musculoskeletal: Reports as per HPI Integumentary/Breasts: Skin/Breast: Reports as per HPI Neurologic: Reports as per HPI and Reports Abnormal speech present Psychiatric: Psychiatric: Reports as per HPI Allergic/Immunologic: Allergic/Immunologic: Reports as per HPI FORMERLY [facility] Past Medical History Medical History Anemia delivery delivered DVT (deep venous thrombosis) HTN (hypertension) Hypercholesteremia Kidney stones Surgical History Total knee replacement status Social History Social History Alcohol intake: never Smoking Status: Current every day smoker Advance Directives: No Advance Directives Information Provided: No Physical Exam Vital Signs: Vital Signs: Last Vital Signs Temp 97.6 F 06/30/20 06:00 Pulse 91 06/30/20 06:00 Resp 20 06/30/20 06:40 BP 101/47 L 06/30/20 06:00 Pulse Ox 97 06/30/20 06:00 Body Mass Index 26.0 Const: General: cooperative and in distress ( moderate, secondary to right- sided abdominal pain) Orientation/consciousness: oriented to person and oriented to place Limitations: no limitations HENMT: Head: Yes normal to inspection, Yes normocephalic and Yes atraumatic Ears: external ears normal General nose exam: Normal external nose present Face and sinus: Yes normal facial exam Mouth: Normal oral and palatal mucosa present Throat: Yes posterior oropharynx normal Eyes: Periorbital: periorbital findings normal Eyelids: Yes eyelids normal Conjunctivae: conjunctivae normal Sclerae: sclerae normal Corneas: corneas normal Pupils: Equal, round and reactive pupils present Direct Ophthalmoscopy: normal light reflex Neck: Neck: Yes full ROM, Yes no lymphadenopathy, Yes no meningeal signs, Yes trachea midline and Yes supple Chest: Chest palpation & inspection: normal inspection of the chest and normal palpation of entire chest wall Resp: Effort & Inspection: normal respiratory effort and able to speak in complete sentences Auscultation: clear to auscultation bilaterally Cardio: Rate: regular rate Rhythm: regular rhythm Heart sounds: S1 normal heart sound present, S2 normal heart sound present and no murmurs GI: Inspection: Yes normal to inspection Palpation (GI): Soft to palpation, Tenderness to palpation present (GI) in the RLQ (Moderate) and in the RUQ (Moderate); Dominguez's sign negative, no guarding, not rigid and No hepatosplenomegaly present : General: Yes no CVA tenderness and Yes other (Moderate right CVA tenderness) Back/Spine/Pelvis: Cervical Spine: normal cervical lordosis Thoracic/Lumbar Spine: thoracic and lumbar spine normal to inspection Skin: Lesions: no lesions Rashes: no rashes Wounds: no wounds Neuro: General: oriented to person, oriented to place and no meningeal signs Cranial nerves: Yes Equal, round and reactive pupils present Cognition (Neuro): normal cognition Speech: Abnormal speech present Motor exam (neuro): 5/5 motor strength present throughout Extrem: General: Yes normal to inspection and Yes full ROM Psych: Appearance: well kempt Mental Status: mental status grossly normal Speech and movement: Normal speech and movement present Affect: normal affect Attitude: cooperative Thought process: Normal thought process present Thought content: Normal thought content present Course Course Course Narrative: 54-year-old female with history of hypertension, COPD, anemia, arthritis, pancreatitis, kidney stones, substance use disorder who presents the emergency department for evaluation of 2 weeks of nausea and vomiting and 7 days of right-sided abdominal pain. This is the patient's 2nd ER visit on her 1st ER visit on 06/24/[address] scan which revealed a right-sided kidney stone but no evidence of ureterolithiasis or hydronephrosis. The patient does appear to be in distress secondary to her pain. She was ordered to get fentanyl 25 mg IV for her pain. She was also ordered to get regular 10 mg IV and Benadryl 50 mg IV for her nausea and vomiting. She also be treated with normal saline IV x1 L. 0736: The patient refused the CT scan. The patient does not want to stay in the hospital any longer and wants to leave. The patient was medicated with fentanyl, Reglan and Benadryl. She is feeling slightly better and she states that she wants to go home and follow-up with her urologist. Patient's laboratory evaluation revealed a low potassium of 2.8. The patient was given potassium chloride 20 mEq orally. The patient's renal function is normal. The patient's urinalysis was negative. The patient was advised to follow-up with her urologist, PCP, and return to the emergency department if her symptoms get worse. Medical Decision Making Lab Data Result diagrams: 06/30/20 06:11 06/30/20 06:11 Labs: Lab Results 06/30/20 06/30/20 06/30/20 Range/Units 06:11 06:11 07:07 WBC 6.8 (4.8-10.8) X10*3/uL RBC 4.07 L (4.20-5.50) X10*6/uL Hgb 11.1 L (12.0-16.0) g/dl Hct 34.9 L (37-47) % MCV 85.7 (80-98) fL MCH 27.3 (27.0-33.0) pg MCHC 31.8 (31.0-35.0) g/dl RDW 14.5 (11.0-16.0) % Plt Count 271 (160-400) X10*3/uL MPV 9.4 (9.4-12.3) fL Immature Gran % (Auto) 0.3 (0.0-0.4) % Neut % (Auto) 65.2 (45-73) % Lymph % (Auto) 27.0 (20-40) % [place] % (Auto) 6.5 (2-11) % Eos % (Auto) 0.7 (0-4) % Baso % (Auto) 0.3 (0-2) % Lymph # (Auto) 1.8 (1.2-4.9) X10*3/uL [place] # (Auto) 0.4 (0.1-1.2) X10*3/uL Eos # (Auto) 0.1 (0.0-0.4) X10*3/uL Baso # (Auto) 0.0 (0.0-0.2) X10*3/uL Abs Immat Gran (auto) 0.02 (0.00-0.03) X10*3/uL Absolute Neuts (auto) 4.5 (2.0-8.3) X10*3/uL Absolute Nucleated RBC 0.000 (0.0-0.012) X10*3/uL Nucleated RBC % (auto) 0.0 (0.0-0.2) /100WBC Sodium 142 (135-145) mmol/L Potassium 2.8 L (3.3-5.1) mmol/l Chloride 107 (96-108) mmol/L Carbon Dioxide 23 (22-29) mmol/L Anion Gap 15 (12-20) BUN 8 L (9-16) mg/dL Creatinine 0.79 (0.5-1.4) mg/dL Estim Creat Clear Calc 68.2 Estimated GFR > 60 Random Glucose 119 H (60-115) mg/dL Calcium 8.8 (8.4-10.2) mg/dL Total Bilirubin 0.4 (0.0-1.0) mg/dL AST 24 D (5-31) U/L ALT 22 (0-31) U/L Alkaline Phosphatase 99 (39-117) U/L Total Protein 7.2 (6.5-8.0) g/dL Albumin 4.5 (3.5-5.0) g/dL Urine Color PINK Urine Appearance CLEAR Urine pH 5.0 (5.0-8.0) Ur Specific [place] <= 1.005 (1.005-1.025) Urine Protein NEG (NEG-TRACE) MG/DL Urine Glucose (UA) 100 H (NEG) MG/DL Urine Ketones NEG (NEG) MG/DL Urine Blood NEG (NEG) Urine Nitrite NEG (NEG) Ur Leukocyte Esterase NEG (NEG) Discharge Plan Discharge Clinical Impression: Acute hypokalemia Abdominal pain Qualifiers: Abdominal location: right upper quadrant Qualified Code(s): R10.11 - Right upper quadrant pain Nausea & vomiting Qualifiers: Vomiting type: unspecified Vomiting Intractability: non-intractable Qualified Code(s): R11.2 - Nausea with vomiting, unspecified Patient Disposition: Home, Self-Care Instructions: Hypokalemia (ED), Abdominal Pain (ED) Additional Instructions: Your blood work revealed a low potassium. You were given oral potassium prior to being discharged. Follow the low potassium instructions increase the potassium in her diet. Take Tylenol (acetaminophen) 500 mg pills, 2 pills every 4 to 6 hours as needed for pain. Follow-up with your doctor in 2 days. Please return to the emergency department if your symptoms get worse or if you develop any symptoms that are concerning to you. Prescriptions: No Action clonazepam [Klonopin] 0.5 mg Tablet 0.5 mg PO BID RF: 0 gabapentin 400 mg Capsule 400 mg PO BEDTIME RF: 0 mirtazapine [Remeron] 30 mg Tablet 30 mg PO BEDTIME RF: 0 zolpidem [Ambien] 10 mg Tablet 10 mg PO BEDTIME PRN (Reason: Sleep) RF: 0 gabapentin 100 mg Tablet 100 mg PO DAILY RF: 0 quetiapine [Seroquel] 50 mg Tablet 50 mg PO BEDTIME RF: 0 Lipitor RF: 0 amlodipine RF: 0 iron RF: 0 tamsulosin 0.4 mg capsule 0.4 mg PO DAILY Qty: 14 RF: 0 prednisone 20 mg tablet 20 mg PO DAILY 6 Days Qty: 6 RF: 0 phenazopyridine [Pyridium] 200 mg tablet 200 mg PO TID PRN (Reason: pain) 3 Days Qty: 7 RF: 0 nitrofurantoin monohyd/m-cryst [Macrobid] 100 mg capsule 100 mg PO Q12H 7 Days Qty: 14 RF: 0
[2020-06-30 07:20] LABS: Appearance Urine CLEAR; Color Urine PINK
[2020-06-30] MEDS: diphenhydrAMINE HCL 50 MG/ML VIAL IVPUSH (07:25)
[2020-06-30] MEDS: Metoclopramide HCl 10 MG/2 ML VIAL IVPUSH (07:25)
--- NOTE | 2020-06-30 07:33 | PC.NURSE ---
REPORT FROM ROBYN. PT HERE WITH KIDNEY STONE. MEDICATED WITH FENTANYL DIRECTLY BEFORE SHIFT CHANGE. [id number] MORE PAIN MEDS. MEDICATED WITH BENADRYL AND REGLAN PER ORDERS. URINE TO LAB. AWAITING CT.
--- NOTE | 2020-06-30 07:40 | PC.NURSE ---
PT HAS DECIDED SHE WANT TO GO HOME. HAS URO APPT LATER TODAY. AWARE. IV DC'ED
[2020-06-30] MEDS: Potassium Chloride ER 20 MEQ TAB.ER.PRT PO (07:46)
== END 2020-06-30 07:50 | disposition home or self-care (01) ==
PROVIDERS: Student in an Organized Health Care Education/Training Program; Emergency Provider Emergency Medicine Emergency Medical Services
DX: E87.6 Hypokalemia (principal); R10.11 Right upper quadrant pain; R11.2 Nausea with vomiting, unspecified; I10 Essential (primary) hypertension; Z87.891 Personal history of nicotine dependence; Z79.899 Other long term (current) drug therapy
CPT/HCPCS: 36415; 80053; 81003; 85025; 96361; 96374; 96375; 99284; J1200; J2765; J3010

== ENCOUNTER 2020-07-15 20:34 | Emergency (ER) | payer MEDICAID, SELFPAY | END 2020-07-15 21:19 | disposition left against medical advice (07) | PROVIDERS: Emergency Provider Emergency Medicine | DX: Z13.89 Encounter for screening for other disorder (principal) | CPT/HCPCS: 99281 ==

== ENCOUNTER 2020-07-16 16:26 | Emergency (ER) | payer MEDICAID, SELFPAY ==
[2020-07-16 16:51] VITALS: BP 177/96; PULSE 80; RESP 20; TEMP 37.3; O2SAT 96; BMI 26.0
--- NOTE | 2020-07-16 19:34 | ED_ITS ---
HPI - Abdominal Pain General Chief Complaint: Abdominal Pain Stated Complaint: abd pain Time Seen by Provider: 07/16/20 19:24 Source: patient and EMS Mode of arrival: EMS Limitations: no limitations History of Present Illness HPI narrative: 54 y/o female with history of anxiety, depression, DVT, kidney stones, HLD who presents with left sided flank pain for the last 3 days associated with nausea and vomiting. She states she was here for the same yesterday but left before being seen because she was tired of waiting. She says the pain is constant and she has not been able to eat for the last 2 days because of the pain. She denies urinary symptoms. No fever, chills, or diarrhea. She states she has a known kidney stone that is 3mm that was found on CT scan in June. MD elicited complaint: flank pain Pertinent past history: kidney stones Onset (ago): day(s) (3) Pain Consistency: constant Location: L flank Severity: severe Quality: sharp Radiation: LLQ Exacerbating factors: eating and movement Relieving factors: nothing Context: history of similar episodes Associated symptoms: nausea and vomiting Related Data Home Medications Medication Instructions Recorded Confirmed Lipitor 04/02/20 amlodipine 04/02/20 clonazepam [Klonopin] 0.5 mg PO BID 04/02/20 04/02/20 gabapentin 100 mg PO DAILY 04/02/20 04/02/20 gabapentin 400 mg PO BEDTIME 04/02/20 04/02/20 iron 04/02/20 mirtazapine [Remeron] 30 mg PO BEDTIME 04/02/20 04/02/20 quetiapine [Seroquel] 50 mg PO BEDTIME 04/02/20 04/02/20 zolpidem [Ambien] 10 mg PO BEDTIME PRN 04/02/20 04/02/20 Previous Rx's Medication Instructions Recorded nitrofurantoin monohyd/m-cryst 100 mg PO Q12H 7 Days #14 cap 06/24/20 [Macrobid] phenazopyridine [Pyridium] 200 mg PO TID PRN 3 Days #7 tab 06/24/20 prednisone 20 mg PO DAILY 6 Days #6 tab 06/24/20 tamsulosin 0.4 mg PO DAILY #14 cap 06/24/20 Allergies Allergy/AdvReac Type Severity Reaction Status Date / Time aspirin [ASA] Allergy Intermediate RASH, Verified 05/28/20 06:09 nausea and vomiting ibuprofen [IBUPROFEN] Allergy Intermediate RASH Verified 05/28/20 06:09 nicotine Allergy Intermediate RASH FROM Verified 05/28/20 06:09 NICOTINE PATCH, nausea and vomiting ketorolac [From TORADOL] Allergy Mild RAPID HR Verified 05/28/20 06:09 AND HIVES Review of Systems Review of Systems Constitutional: No Fever, No Chills Cardiovascular: No Chest Pain, No SOB, No Orthopnea, No Edema Respiratory: No Cough, No Sputum, No Wheezing, No dyspnea Gastrointestinal: + Nausea, + Vomiting, No Diarrhea, + abdominal Pain Genitourinary: No Dysuria, No Urinary Frequency, No Hematuria Musculoskeletal: No joint pain, No Myalgias Skin: No Skin Lesions, No rash Neuro: No Weakness, No Numbness, No Dizziness, No Headache Psych: + Anxiety/Panic, No Depression Heme/Lymph: No Bruising, No Lymphadenopathy Endocrine: No Polyuria, No Polydipsia Physical Exam Vital Signs: Vital Signs: Last Vital Signs Temp 99.1 F 07/16/20 16:51 Pulse 80 07/16/20 20:00 Resp 20 07/16/20 20:00 BP 164/84 H 07/16/20 20:00 Pulse Ox 96 07/16/20 20:00 Body Mass Index 26.0 Appearance: Alert. Oriented X3. Appears uncomfortable and in pain. Eyes: Pupils equal, round and reactive to light. ENT: Pharynx normal. Neck: Normal inspection. Neck supple. CVS: Normal heart rate and rhythm. Pulses normal. Respiratory: No respiratory distress. Breath sounds normal. Abdomen: Soft with mild LLQ tenderness, left flank tenderness without CVA tenderness. +BS. No rebound or guarding. Skin: Skin warm and dry. Normal skin color. Normal skin turgor. No rashes. Extremities: No lower extremity edema. Neuro: Oriented X 3. No motor deficit. No sensory deficit. Course Course Course Narrative: 54 y/o female with history of right sided kidney stones presenting with left sided flank pain x3 days ago. Seen here for the same yesterday but left without being seen after not getting IV fentanyl in the ambulance. She was cursing and screaming in the waiting room. After security asked her to quiet down she left the department. Today she returns with persistent pain reported N/V. She has had 2 CT scans in the last 2 months. Will get blood work and renal U/S to assess for hyponephrosis/obstructing stone. Concern for medication seeking given her demands. She is refusing IV decadron, Flomax, asking for IV fentanyl. Reevaluation(s) Reevaluation #1: Patient demanding IV narcotics. When offered oral [place] she accepted. She is now refusing Renal U/S and wants to be discharged. UA is negative. Doubt obstructive nephrolothiasis. Patient can be discharged with plan to f/u with PCP or return to the ER if pain persists or worsens. MDM - Abdominal Pain Lab Data Result diagrams: 07/16/20 19:55 07/16/20 19:55 Labs: Lab Results 07/16/20 07/16/20 07/16/20 Range/Units 19:55 19:55 19:55 WBC 7.3 (4.8-10.8) X10*3/uL RBC 4.04 L (4.20-5.50) X10*6/uL Hgb 11.2 L (12.0-16.0) g/dl Hct 35.6 L (37-47) % MCV 88.1 (80-98) fL MCH 27.7 (27.0-33.0) pg MCHC 31.5 (31.0-35.0) g/dl RDW 14.7 (11.0-16.0) % Plt Count 294 (160-400) X10*3/uL MPV 9.6 (9.4-12.3) fL Immature Gran % (Auto) 0.5 H (0.0-0.4) % Neut % (Auto) 63.4 (45-73) % Lymph % (Auto) 28.7 (20-40) % [place] % (Auto) 5.6 (2-11) % Eos % (Auto) 1.4 (0-4) % Baso % (Auto) 0.4 (0-2) % Lymph # (Auto) 2.1 (1.2-4.9) X10*3/uL [place] # (Auto) 0.4 (0.1-1.2) X10*3/uL Eos # (Auto) 0.1 (0.0-0.4) X10*3/uL Baso # (Auto) 0.0 (0.0-0.2) X10*3/uL Abs Immat Gran (auto) 0.04 H (0.00-0.03) X10*3/uL Absolute Neuts (auto) 4.6 (2.0-8.3) X10*3/uL Absolute Nucleated RBC 0.000 (0.0-0.012) X10*3/uL Nucleated RBC % (auto) 0.0 (0.0-0.2) /100WBC Sodium Cancelled Potassium Cancelled Chloride Cancelled Carbon Dioxide Cancelled Anion Gap Cancelled BUN Cancelled Creatinine Cancelled Estim Creat Clear Calc Cancelled Estimated GFR Cancelled Random Glucose Cancelled Calcium Cancelled Magnesium Cancelled Urine Color YELLOW Urine Appearance CLEAR Urine pH 6.0 (5.0-8.0) Ur Specific [place] 1.025 (1.005-1.025) Urine Protein NEG (NEG-TRACE) MG/DL Urine Glucose (UA) NEG (NEG) MG/DL Urine Ketones NEG (NEG) MG/DL Urine Blood NEG (NEG) Urine Nitrite NEG (NEG) Ur Leukocyte Esterase NEG (NEG) Critical Care Time Critical Care Time Critical Care Time: No Discharge Plan Discharge Clinical Impression: Acute left flank pain Patient Disposition: Home, Self-Care Instructions: Flank Pain (ED) Additional Instructions: Follow up with your doctor tomorrow. Come back to the ER if you have worsening or persistent pain. Prescriptions: No Action clonazepam [Klonopin] 0.5 mg Tablet 0.5 mg PO BID RF: 0 gabapentin 400 mg Capsule 400 mg PO BEDTIME RF: 0 mirtazapine [Remeron] 30 mg Tablet 30 mg PO BEDTIME RF: 0 zolpidem [Ambien] 10 mg Tablet 10 mg PO BEDTIME PRN (Reason: Sleep) RF: 0 gabapentin 100 mg Tablet 100 mg PO DAILY RF: 0 quetiapine [Seroquel] 50 mg Tablet 50 mg PO BEDTIME RF: 0 Lipitor RF: 0 amlodipine RF: 0 iron RF: 0 tamsulosin 0.4 mg capsule 0.4 mg PO DAILY Qty: 14 RF: 0 prednisone 20 mg tablet 20 mg PO DAILY 6 Days Qty: 6 RF: 0 phenazopyridine [Pyridium] 200 mg tablet 200 mg PO TID PRN (Reason: pain) 3 Days Qty: 7 RF: 0 nitrofurantoin monohyd/m-cryst [Macrobid] 100 mg capsule 100 mg PO Q12H 7 Days Qty: 14 RF: 0 Interventions: ED Discharge Assessment Last Done: 07/16/20 20:29 Discharge Date/Time: 07/16/20 20:30 [facility] Past Medical History Attestation statement: The following information was validated with the patient. Medical History Anemia delivery delivered DVT (deep venous thrombosis) HTN (hypertension) Hypercholesteremia Kidney stones Surgical History Total knee replacement status Social History Social History Alcohol intake: unknown Smoking Status: Unknown if ever smoked Use of substances other than those prescribed or required for medical reasons: Unknown Advance Directives: No
[2020-07-16 20:00] VITALS: BP 164/84; PULSE 80; RESP 20; O2SAT 96
[2020-07-16 20:03] LABS: MANUAL DIFF FLAG NO
[2020-07-16 20:05] LABS: Basophils Percent Auto 0.4 % (0-2); Eosinophils Absolute Auto 0.1 X10*3/uL (0.0-0.4); Eosinophils Percent Auto 1.4 % (0-4); Hematocrit 35.6 % (37-47); Hemoglobin 11.2 g/dl (12.0-16.0); Imm Gran Abs Auto 0.04 X10*3/uL (0.00-0.03); Imm Gran Pct Auto 0.5 % (0.0-0.4); Lymphocytes Absolute Auto 2.1 X10*3/uL (1.2-4.9); Lymphocytes Percent Auto 28.7 % (20-40); Mean Corpuscular HGB Conc 31.5 g/dl (31.0-35.0); Mean Corpuscular Hemoglobin 27.7 pg (27.0-33.0); Mean Corpuscular Volume 88.1 fL (80-98); Mean Platelet Volume 9.6 fL (9.4-12.3); Monocytes Absolute Auto 0.4 X10*3/uL (0.1-1.2); Monocytes Percent Auto 5.6 % (2-11); Neutrophils Absolute Auto 4.6 X10*3/uL (2.0-8.3); Neutrophils Percent Auto 63.4 % (45-73); Platelet Count 294 X10*3/uL (160-400); Red Blood Count 4.04 X10*6/uL (4.20-5.50); Red Cell Distribution Width 14.7 % (11.0-16.0); White Blood Count 7.3 X10*3/uL (4.8-10.8)
[2020-07-16] MEDS: ondansetron HCL 4 MG/2 ML VIAL IVPUSH (20:11)
[2020-07-16] MEDS: HYDROcodone Bit/Acetam 5/325 TABLET 1 TAB PO (20:12)
[2020-07-16] MEDS: 0.9 % Sodium Chloride 1,000 ML 999 ML IVCONT (20:12)
[2020-07-16 20:15] LABS: Glucose Urine UA NEG (NEG); Leukocyte Esterase Urine NEG (NEG); Nitrite Urine NEG (NEG); Specific Gravity - Urine 1.025 (1.005-1.025); Urine Blood NEG (NEG); Urine Ketones NEG (NEG); Urine Protein NEG (NEG-TRACE)
[2020-07-16 20:20] LABS: Appearance Urine CLEAR; Color Urine YELLOW
--- NOTE | 2020-07-16 20:26 | PC.NURSE ---
Patient refused steroids and Flomax. Patient only interested in pain medication and antinausea medication. Patient upset at the choice of pain medication she was given stating it wouldn't help her pain and that she needed something for pain. Patient refused ultrasound stating she wanted to leave. ED provider made aware and patient was discharged.
== END 2020-07-16 20:30 | disposition home or self-care (01) ==
PROVIDERS: Physician Assistant; Emergency Provider Internal Medicine
DX: R10.32 Left lower quadrant pain (principal); I10 Essential (primary) hypertension; Z86.718 Personal history of other venous thrombosis and embolism; Z79.899 Other long term (current) drug therapy
CPT/HCPCS: 36415; 81003; 85025; 96374; 96375; 99284; 99285; J2405

== ENCOUNTER 2020-08-05 05:45 | Emergency (ER) | payer MEDICAID, SELFPAY ==
[2020-08-05 05:59] VITALS: BP 139/54; BP 158/82; PULSE 100; PULSE 96; RESP 18; TEMP 37; O2SAT 96; O2SAT 98; BMI 26.0
--- NOTE | 2020-08-05 06:01 | ED_ITS ---
HPI - General Adult General Chief complaint: Abdominal Pain Stated complaint: abd pain Time Seen by Provider: 08/05/20 06:01 Source: patient Mode of arrival: EMS History of Present Illness HPI narrative: This is a 54-year-old female who presents with few days worsening bilateral back pain that she states radiates into both of her lower extremities as well as the anterior abdomen. This is not been associated with any nausea vomiting and patient states that she continues to have a bowel movement daily denies any urinary or fecal incontinence. In addition, patient denies any urinary pain/burning/frequency. She does describe an elevated temperature. She denies any falls or trauma to her back. Related Data Home Medications Medication Instructions Recorded Confirmed Lipitor 04/02/20 amlodipine 04/02/20 clonazepam [Klonopin] 0.5 mg PO BID 04/02/20 04/02/20 gabapentin 100 mg PO DAILY 04/02/20 04/02/20 gabapentin 400 mg PO BEDTIME 04/02/20 04/02/20 iron 04/02/20 mirtazapine [Remeron] 30 mg PO BEDTIME 04/02/20 04/02/20 quetiapine [Seroquel] 50 mg PO BEDTIME 04/02/20 04/02/20 zolpidem [Ambien] 10 mg PO BEDTIME PRN 04/02/20 04/02/20 Previous Rx's Medication Instructions Recorded nitrofurantoin monohyd/m-cryst 100 mg PO Q12H 7 Days #14 cap 06/24/20 [Macrobid] phenazopyridine [Pyridium] 200 mg PO TID PRN 3 Days #7 tab 06/24/20 prednisone 20 mg PO DAILY 6 Days #6 tab 06/24/20 tamsulosin 0.4 mg PO DAILY #14 cap 06/24/20 Allergies Allergy/AdvReac Type Severity Reaction Status Date / Time aspirin [ASA] Allergy Intermediate RASH, Verified 08/05/20 05:59 nausea and vomiting ibuprofen [IBUPROFEN] Allergy Intermediate RASH Verified 08/05/20 05:59 nicotine Allergy Intermediate RASH FROM Verified 08/05/20 05:59 NICOTINE PATCH, nausea and vomiting ketorolac [From TORADOL] Allergy Mild RAPID HR Verified 08/05/20 05:59 AND HIVES Review of Systems Review of Systems: Pertinent positives and negatives as stated in HPI 10 point review of systems otherwise negative. PMFSH Past Medical History Source: nursing notes reviewed Medical History Anemia delivery delivered DVT (deep venous thrombosis) HTN (hypertension) Hypercholesteremia Kidney stones Surgical History Total knee replacement status Social History Social History Alcohol intake: unknown Smoking Status: Unknown if ever smoked Advance Directives: No Physical Exam Vital Signs: Vital Signs: Last Vital Signs Temp 97.8 F 08/05/20 08:02 Pulse 79 08/05/20 08:02 Resp 16 08/05/20 08:02 BP 128/51 L 08/05/20 08:02 Pulse Ox 95 08/05/20 08:02 Body Mass Index 26.0 VITAL SIGNS: Reviewed. GENERAL: Well developed, well nourished, in no acute distress. HEAD: Normocephalic/atraumatic EYES: PERRLA, EOMI EARS: Ext canals without abnormality NOSE: Nares patent bilateral OROPHARYNX: no oral lesions noted, posterior pharynx clear and non-erythematous without noted tonsillar enlargement/erythema/exudates NECK: Supple, no adenopathy LUNGS: Normal breath sounds. SpO2<96> CARDIOVASCULAR: Regular rate and rhythm without noted murmurs, no JVD or lower extremity edema. ABDOMEN: Obese, Soft, non-tender, non-distended with bowel sounds. BACK: No tenderness to palpation along the mid vertebral line, there is some noted tenderness on paraspinal palpation across the lumbar at approximately L3/L4 MUSCULOSKELETAL: No tenderness, deformities, or effusions noted on gross inspection. EXTREMITIES: No cyanosis, clubbing or edema. SKIN: Inspection of the skin reveals no rashes NEUROLOGIC: Alert and oriented x 4. Course Course Course Narrative: This is a 54-year-old female with history and clinical presentation consistent with chronic pain and recurrent ureterolithiasis. Doubt underlying diverticulitis, UTI, pyelonephritis. Review of all investigations is negative for any acute findings of infection, anemia (chronically stable), UTI. Patient decline GI cocktail as well as Tylenol but was requesting Zofran despite denying nausea and vomiting. On re- evaluation patient is noted to have significantly deescalated in her expression of pain during her stay here in the emergency department. She understands that she will undergo a CT scan for further evaluation. Signed out to Dr De Leon: plan f/u CT scan abd/pelvis and likely discharge. Medical Decision Making Lab Data Result diagrams: 08/05/20 06:29 08/05/20 06:29 Labs: Lab Results 08/05/20 08/05/20 08/05/20 Range/Units 06:29 06:29 06:29 WBC 6.4 (4.8-10.8) X10*3/uL RBC 4.29 (4.20-5.50) X10*6/uL Hgb 11.6 L (12.0-16.0) g/dl Hct 36.7 L (37-47) % MCV 85.5 (80-98) fL MCH 27.0 (27.0-33.0) pg MCHC 31.6 (31.0-35.0) g/dl RDW 13.9 (11.0-16.0) % Plt Count 245 (160-400) X10*3/uL MPV 10.2 (9.4-12.3) fL Immature Gran % (Auto) 0.3 (0.0-0.4) % Neut % (Auto) 53.8 (45-73) % Lymph % (Auto) 33.6 (20-40) % Nye % (Auto) 10.0 (2-11) % Eos % (Auto) 2.0 (0-4) % Baso % (Auto) 0.3 (0-2) % Lymph # (Auto) 2.2 (1.2-4.9) X10*3/uL Nye # (Auto) 0.6 (0.1-1.2) X10*3/uL Eos # (Auto) 0.1 (0.0-0.4) X10*3/uL Baso # (Auto) 0.0 (0.0-0.2) X10*3/uL Abs Immat Gran (auto) 0.02 (0.00-0.03) X10*3/uL Absolute Neuts (auto) 3.4 (2.0-8.3) X10*3/uL Absolute Nucleated RBC 0.000 (0.0-0.012) X10*3/uL Nucleated RBC % (auto) 0.0 (0.0-0.2) /100WBC Sodium 145 (135-145) mmol/L Potassium 3.3 (3.3-5.1) mmol/L Chloride 111 H (96-108) mmol/L Carbon Dioxide 24 (22-29) mmol/L Anion Gap 13 (12-20) BUN 11 (9-16) mg/dL Creatinine 0.75 (0.5-1.4) mg/dL Estim Creat Clear Calc 71.8 Estimated GFR > 60 Random Glucose 100 (60-115) mg/dL Calcium 9.2 (8.4-10.2) mg/dL Total Bilirubin 1.2 H (0.0-1.0) mg/dL AST 26 (5-31) U/L ALT 20 (0-31) U/L Alkaline Phosphatase 103 (39-117) U/L Total Protein 7.6 (6.5-8.0) g/dL Albumin 4.7 (3.5-5.0) g/dL Urine Color Urine Appearance Urine pH (5.0-8.0) Ur Specific [place] (1.005-1.025) Urine Protein (NEG-TRACE) MG/DL Urine Glucose (UA) (NEG) MG/DL Urine Ketones (NEG) MG/DL Urine Blood (NEG) Urine Nitrite (NEG) Ur Leukocyte Esterase (NEG) Urine Opiates Screen (Not Detect) Ur Barbiturates Screen (Not Detect) Ur Phencyclidine Scrn (Not Detect) Ur Amphetamines Screen (Not Detect) U Benzodiazepines Scrn (Not Detect) Urine Cocaine Screen (Not Detect) U Marijuana (THC) Screen (Not Detect) Ethyl Alcohol < 10 mg/dL 08/05/20 08/05/20 Range/Units 06:29 06:29 WBC (4.8-10.8) X10*3/uL RBC (4.20-5.50) X10*6/uL Hgb (12.0-16.0) g/dl Hct (37-47) % MCV (80-98) fL MCH (27.0-33.0) pg MCHC (31.0-35.0) g/dl RDW (11.0-16.0) % Plt Count (160-400) X10*3/uL MPV (9.4-12.3) fL Immature Gran % (Auto) (0.0-0.4) % Neut % (Auto) (45-73) % Lymph % (Auto) (20-40) % Nye % (Auto) (2-11) % Eos % (Auto) (0-4) % Baso % (Auto) (0-2) % Lymph # (Auto) (1.2-4.9) X10*3/uL Nye # (Auto) (0.1-1.2) X10*3/uL Eos # (Auto) (0.0-0.4) X10*3/uL Baso # (Auto) (0.0-0.2) X10*3/uL Abs Immat Gran (auto) (0.00-0.03) X10*3/uL Absolute Neuts (auto) (2.0-8.3) X10*3/uL Absolute Nucleated RBC (0.0-0.012) X10*3/uL Nucleated RBC % (auto) (0.0-0.2) /100WBC Sodium (135-145) mmol/L Potassium (3.3-5.1) mmol/L Chloride (96-108) mmol/L Carbon Dioxide (22-29) mmol/L Anion Gap (12-20) BUN (9-16) mg/dL Creatinine (0.5-1.4) mg/dL Estim Creat Clear Calc Estimated GFR Random Glucose (60-115) mg/dL Calcium (8.4-10.2) mg/dL Total Bilirubin (0.0-1.0) mg/dL AST (5-31) U/L ALT (0-31) U/L Alkaline Phosphatase (39-117) U/L Total Protein (6.5-8.0) g/dL Albumin (3.5-5.0) g/dL Urine Color YELLOW Urine Appearance CLOUDY Urine pH 6.0 (5.0-8.0) Ur Specific [place] 1.025 (1.005-1.025) Urine Protein NEG (NEG-TRACE) MG/DL Urine Glucose (UA) NEG (NEG) MG/DL Urine Ketones NEG (NEG) MG/DL Urine Blood NEG (NEG) Urine Nitrite NEG (NEG) Ur Leukocyte Esterase NEG (NEG) Urine Opiates Screen Not Detected (Not Detect) Ur Barbiturates Screen Not Detected (Not Detect) Ur Phencyclidine Scrn Not Detected (Not Detect) Ur Amphetamines Screen Not Detected (Not Detect) U Benzodiazepines Scrn Not Detected (Not Detect) Urine Cocaine Screen Not Detected (Not Detect) U Marijuana (THC) Screen Not Detected (Not Detect) Ethyl Alcohol mg/dL Discharge Plan Discharge Prescriptions: No Action clonazepam [Klonopin] 0.5 mg Tablet 0.5 mg PO BID RF: 0 gabapentin 400 mg Capsule 400 mg PO BEDTIME RF: 0 mirtazapine [Remeron] 30 mg Tablet 30 mg PO BEDTIME RF: 0 zolpidem [Ambien] 10 mg Tablet 10 mg PO BEDTIME PRN (Reason: Sleep) RF: 0 gabapentin 100 mg Tablet 100 mg PO DAILY RF: 0 quetiapine [Seroquel] 50 mg Tablet 50 mg PO BEDTIME RF: 0 Lipitor RF: 0 amlodipine RF: 0 iron RF: 0 tamsulosin 0.4 mg capsule 0.4 mg PO DAILY Qty: 14 RF: 0 prednisone 20 mg tablet 20 mg PO DAILY 6 Days Qty: 6 RF: 0 phenazopyridine [Pyridium] 200 mg tablet 200 mg PO TID PRN (Reason: pain) 3 Days Qty: 7 RF: 0 nitrofurantoin monohyd/m-cryst [Macrobid] 100 mg capsule 100 mg PO Q12H 7 Days Qty: 14 RF: 0
--- NOTE | 2020-08-05 06:02 | CT_ITS ---
EXAMINATION: CT ABDOMEN AND PELVIS WITH CONTRAST CLINICAL INFORMATION: Abdominal pain COMPARISON: Previous CT scan of the abdomen and pelvis most recent June 2020 TECHNIQUE: Multidetector volumetric images were obtained from the superior aspect of the liver through the pubic symphysis following administration 85 mL of Omnipaque 350 intravenous contrast. Sagittal and coronal reformatted images were obtained on the technologist's workstation. Oral contrast: Yes This CT examination was performed using dose optimization techniques as appropriate, variously including the following: *Automated exposure control *Adjustment of mA and/or kV according to patient size (this includes techniques or standardized protocols for targeted exams where dose is matched to indication/reason for exam; i.e. extremities or head) *Use of iterative reconstruction technique DLP: 597 mGy-cm FINDINGS: LUNG BASES: The visualized lung bases are unremarkable. LIVER, GALLBLADDER, AND BILIARY TREE: The liver is normal in size, shape, and attenuation. No focal hepatic lesion or biliary ductal dilatation is present. The gallbladder is unremarkable with no evidence of radiopaque gallstones, gallbladder wall thickening, or obvious pericholecystic inflammatory changes. PANCREAS: Unremarkable. SPLEEN: Unremarkable. ADRENAL GLANDS: Unremarkable. KIDNEYS AND URETERS: There is a 1.4 cm low-attenuation fatty lesion in the upper pole of the right kidney. This is stable from previous exams and likely represents a benign angiomyolipoma. There is a small 3 mm stone in the mid right kidney. There is a small 3 mm low-attenuation lesion exophytic to the upper pole right kidney probably representing a cyst. The left kidney is unremarkable. BLADDER: Unremarkable. GASTROINTESTINAL TRACT: The small and large bowel are unremarkable. The appendix is unremarkable. ABDOMINAL WALL: There is a small umbilical hernia containing fat. LYMPH NODES: Normal. VASCULAR: Unremarkable. PELVIC VISCERA: Unremarkable. OSSEOUS STRUCTURES: Unremarkable. CT/CT abdomen pelvis w con IMPRESSION: No acute findings. Small 3 mm nonobstructing right renal stone. 1.3 cm fatty lesion in the upper pole of the right kidney probably representing a angiomyolipoma.
[2020-08-05 06:36] LABS: MANUAL DIFF FLAG NO
[2020-08-05 06:37] LABS: Glucose Urine UA NEG (NEG); Leukocyte Esterase Urine NEG (NEG); Nitrite Urine NEG (NEG); Specific Gravity - Urine 1.025 (1.005-1.025); Urine Blood NEG (NEG); Urine Ketones NEG (NEG); Urine Protein NEG (NEG-TRACE)
[2020-08-05 06:39] LABS: Appearance Urine CLOUDY; Color Urine YELLOW
[2020-08-05 06:41] LABS: Basophils Percent Auto 0.3 % (0-2); Eosinophils Absolute Auto 0.1 X10*3/uL (0.0-0.4); Hematocrit 36.7 % (37-47); Hemoglobin 11.6 g/dl (12.0-16.0); Imm Gran Abs Auto 0.02 X10*3/uL (0.00-0.03); Imm Gran Pct Auto 0.3 % (0.0-0.4); Lymphocytes Absolute Auto 2.2 X10*3/uL (1.2-4.9); Lymphocytes Percent Auto 33.6 % (20-40); Mean Corpuscular HGB Conc 31.6 g/dl (31.0-35.0); Mean Corpuscular Volume 85.5 fL (80-98); Mean Platelet Volume 10.2 fL (9.4-12.3); Monocytes Absolute Auto 0.6 X10*3/uL (0.1-1.2); Neutrophils Absolute Auto 3.4 X10*3/uL (2.0-8.3); Neutrophils Percent Auto 53.8 % (45-73); Platelet Count 245 X10*3/uL (160-400); Red Blood Count 4.29 X10*6/uL (4.20-5.50); Red Cell Distribution Width 13.9 % (11.0-16.0); White Blood Count 6.4 X10*3/uL (4.8-10.8)
[2020-08-05 07:03] LABS: Ethanol < 10 mg/dL
[2020-08-05 07:06] LABS: Alanine Aminotransferase 20 U/L (0-31); Albumin Level 4.7 g/dL (3.5-5.0); Alkaline Phosphatase 103 U/L (39-117); Anion Gap 13 (12-20); Aspartate Amino Transferase 26 U/L (5-31); Bilirubin Total 1.2 mg/dL (0.0-1.0); Blood Urea Nitrogen 11 mg/dL (9-16); Calcium 9.2 mg/dL (8.4-10.2); Carbon Dioxide 24 mmol/L (22-29); Chloride 111 mmol/L (96-108); Creatinine Clr Calc Pharmacy 71.8; Estimated Glomerular Filt Rate > 60; Glucose Random 100 mg/dL (60-115); Potassium 3.3 mmol/L (3.3-5.1); Sodium 145 mmol/L (135-145); Total Protein 7.6 g/dL (6.5-8.0)
[2020-08-05 07:08] LABS: Amphetamine Screen Urine Not Detected (Not Detect); Barbiturates, Urine Not Detected (Not Detect); Benzodiazepines Screen Urine Not Detected (Not Detect); Cannabinoid Screen Urine Not Detected (Not Detect); Cocaine Screen Urine Not Detected (Not Detect); Opiate Screen Urine Not Detected (Not Detect); Phencyclidine Screen Urine Not Detected (Not Detect)
[2020-08-05] MEDS: ondansetron HCL 4 MG/2 ML VIAL IVPUSH (07:19)
[2020-08-05] MEDS: 0.9 % Sodium Chloride 1,000 ML 999 ML IV (07:19)
[2020-08-05 08:02] VITALS: BP 128/51; PULSE 79; RESP 16; TEMP 36.6; O2SAT 95
--- NOTE | 2020-08-05 08:20 | PC.NURSE ---
report taken from zaihda rn pt here for abd pain, offered gi cocktail and tylenol which pt refused. pt sts ill just go home i have zofran there . pt educated about need for imaging prior to heavy pain management. pt sts she will wait for ct scan and take a dose of zofran. pt appears to be in no distress, resting comfortably in stretcher while conversing with provider and this rn.
[2020-08-05] MEDS: iohexoL 350 MG/ML 100 ML INFUS..BTL 85 ML IV (08:41)
== END 2020-08-05 11:17 | disposition home or self-care (01) ==
PROVIDERS: Emergency Provider Student in an Organized Health Care Education/Training Program
DX: R10.9 Unspecified abdominal pain (principal); M54.42 Lumbago with sciatica, left side; M54.41 Lumbago with sciatica, right side; N20.0 Calculus of kidney; N28.9 Disorder of kidney and ureter, unspecified; I10 Essential (primary) hypertension; Z87.442 Personal history of urinary calculi; Z86.718 Personal history of other venous thrombosis and embolism; Z79.899 Other long term (current) drug therapy
CPT/HCPCS: 36415; 74177; 80053; 80307; 80320; 81003; 85025; 96361; 96374; 99284; J2405; Q9967

== ENCOUNTER 2020-08-18 20:14 | Emergency (ER) | payer MEDICAID, SELFPAY | END 2020-08-18 20:59 | disposition left against medical advice (07) | PROVIDERS: Emergency Provider Emergency Medicine | DX: Z20.822 Contact with and (suspected) exposure to COVID-19 (principal) ==

== ENCOUNTER 2020-09-21 05:26 | Emergency (ER) | payer MEDICAID, SELFPAY ==
--- NOTE | ~2020-09-21 | XR_ITS ---
EXAMINATION: XR CHEST CLINICAL INFORMATION: cough COMPARISON: 04/02/2020 TECHNIQUE: Frontal view of the chest was obtained. FINDINGS: Cardiac leads overlie the chest. Mild dependent atelectasis. No consolidation, pneumothorax, or pleural effusion. Cardiomediastinal contours are normal. Pulmonary vasculature is unremarkable. No acute osseous abnormalities. XR/XR chest 1V IMPRESSION: Mild dependent atelectasis. No acute pulmonary findings.
[2020-09-21 05:38] VITALS: BP 129/70; PULSE 91; RESP 18; TEMP 36.6; O2SAT 97; BMI 26.0
--- NOTE | 2020-09-21 05:44 | ECG_ITS ---
Test Reason : CHEST PAIN Blood Pressure : / mmHG Vent. Rate : 089 BPM Atrial Rate : 089 BPM P-R Int : 130 ms QRS Dur : 072 ms QT Int : 466 ms P-R-T Axes : 045 002 084 degrees QTc Int : 566 ms Normal sinus rhythm Cannot rule out Anterior infarct , age undetermined T wave abnormality, consider lateral ischemia Prolonged QT Abnormal ECG When compared with ECG of 24-JUN-2020 19:40, Nonspecific T wave abnormality now evident in Inferior leads T wave inversion now evident in Anterolateral leads QT has lengthened Referred By: Joann Herman Electronically Signed By:CHEYANNE RODRIGUEZ
--- NOTE | 2020-09-21 05:46 | ED.GENADULT ---
HPI - General Adult General Chief complaint: Chest Pain Stated complaint: CHEST PAIN RADIATES TO LEFT ARM AND JAW Time Seen by Provider: 09/21/20 05:38 Source: patient Mode of arrival: EMS Limitations: no limitations History of Present Illness HPI narrative: Patient comes emergency room complaining of cough and chest pain , occasional shortness of breath that started yesterday and radiates towards the left arm. Patient states it is constant, pressure-like sensation. Patient denies fever chills. Complaining of nausea and vomiting, no diarrhea, no abdominal pain. Related Data Home Medications Medication Instructions Recorded Confirmed Lipitor 04/02/20 amlodipine 04/02/20 clonazepam [Klonopin] 0.5 mg PO BID 04/02/20 04/02/20 gabapentin 100 mg PO DAILY 04/02/20 04/02/20 gabapentin 400 mg PO BEDTIME 04/02/20 04/02/20 iron 04/02/20 mirtazapine [Remeron] 30 mg PO BEDTIME 04/02/20 04/02/20 quetiapine [Seroquel] 50 mg PO BEDTIME 04/02/20 04/02/20 zolpidem [Ambien] 10 mg PO BEDTIME PRN 04/02/20 04/02/20 Previous Rx's Medication Instructions Recorded nitrofurantoin monohyd/m-cryst 100 mg PO Q12H 7 Days #14 cap 06/24/20 [Macrobid] phenazopyridine [Pyridium] 200 mg PO TID PRN 3 Days #7 tab 06/24/20 prednisone 20 mg PO DAILY 6 Days #6 tab 06/24/20 tamsulosin 0.4 mg PO DAILY #14 cap 06/24/20 naproxen [Naprosyn] 500 mg PO BID #20 tab 08/05/20 Allergies Allergy/AdvReac Type Severity Reaction Status Date / Time aspirin [ASA] Allergy Intermediate RASH, Verified 08/05/20 05:59 nausea and vomiting ibuprofen [IBUPROFEN] Allergy Intermediate RASH Verified 08/05/20 05:59 nicotine Allergy Intermediate RASH FROM Verified 08/05/20 05:59 NICOTINE PATCH, nausea and vomiting ketorolac [From TORADOL] Allergy Mild RAPID HR Verified 08/05/20 05:59 AND HIVES Review of Systems Review of Systems: Constitutional : No Weight loss, No Fever, No Chills, No Night Sweats, No Fatigue, No Malaise ENT/Mouth : No Hearing loss, No Ear Pain, No Nasal Congestion, No Sinus Pain, No Hoarseness, No sore throat, No Rhinorrhea, No Swallowing Difficulty Eyes: No Eye Pain, No Swelling, No Redness, No Foreign Body, No Discharge, No Vision Changes Cardiovascular : Complaining of left-sided chest pain radiating towards the left shoulder No SOB, No Dyspnea on Exertion, No Orthopnea, No Edema, No Palpitations Respiratory : No Cough, No Sputum, No Wheezing, No Smoke Exposure, occasional Dyspnea Gastrointestinal : Complaining of nausea and vomiting, No Diarrhea, No Constipation, No abdominal Pain, No Hematochezia, No Melena Genitourinary : no irregular bleeding, No Dysuria, No Urinary Frequency, No Hematuria, No Urinary Incontinence, No Urgency, No Flank Pain, No Urinary Flow Changes, No Hesitancy Musculoskeletal : No joint pain, No Myalgias, No Joint Swelling Skin : No Skin Lesions, No rash Neuro : No Weakness, No Numbness, No Paresthesias, No Loss of Consciousness, No Dizziness, No Headache Psych : No Anxiety/Panic, No Depression, No SI/HI/AH/VH, No Social Issues, Heme/Lymph: No Bruising, No Bleeding,No Lymphadenopathy Endocrine : No Polyuria, No Polydipsia, No Temperature Intolerance [facility] Past Medical History Medical History Anemia delivery delivered DVT (deep venous thrombosis) HTN (hypertension) Hypercholesteremia Kidney stones Surgical History Total knee replacement status Social History Social History Alcohol intake: never Smoking Status: Current every day smoker Use of substances other than those prescribed or required for medical reasons: No Advance Directives: No Physical Exam Vital Signs: Vital Signs: Last Vital Signs Temp 97.8 F 09/21/20 05:38 Pulse 82 09/21/20 07:18 Resp 20 09/21/20 07:18 BP 121/65 09/21/20 07:18 Pulse Ox 98 09/21/20 07:18 Body Mass Index 26.0 Appearance: Alert. Oriented X3. No acute distress but very anxious Eyes: Pupils equal, round and reactive to light. ENT: Pharynx normal. Neck: Normal inspection. Neck supple. No lymph nodes noted. No crepitus CVS: Normal heart rate and rhythm. Pulses normal. Normal S1 and S2, nonreproducible chest pain Respiratory: No respiratory distress. Breath sounds normal. No Wheezing. No rales Abdomen: Soft and nontender. No rigidity. No distention. good BS x4 Skin: Skin warm and dry. Normal skin color. Normal skin turgor. Extremities: No lower extremity edema. No lower extremity edema. No Lacerations. No Rash Neuro: Oriented X 3. No motor deficit. No sensory deficit. Moving all extermities. No slurred speech. Course Course Course Narrative: Patient had several low blood pressure reads, however it was noted that the patient's blood pressure cuff was not placed properly. Patient was sleeping comfortably. When she was walking up, patient requested requesting IV morphine. Declined Tylenol, states that only morphine works. D-dimer pending. And given to Dr. Swan Medical Decision Making Lab Data Result diagrams: 09/21/20 06:10 09/21/20 06:10 Labs: Lab Results 09/21/20 09/21/20 09/21/20 Range/Units 06:10 06:10 06:10 WBC 6.5 (4.8-10.8) X10*3/uL RBC 4.20 (4.20-5.50) X10*6/uL Hgb 11.4 L (12.0-16.0) g/dl Hct 35.8 L (37-47) % MCV 85.2 (80-98) fL MCH 27.1 (27.0-33.0) pg MCHC 31.8 (31.0-35.0) g/dl RDW 14.3 (11.0-16.0) % Plt Count 239 (160-400) X10*3/uL MPV 10.2 (9.4-12.3) fL Immature Gran % (Auto) 0.2 (0.0-0.4) % Neut % (Auto) 62.9 (45-73) % Lymph % (Auto) 26.2 (20-40) % Yell % (Auto) 8.7 (2-11) % Eos % (Auto) 1.7 (0-4) % Baso % (Auto) 0.3 (0-2) % Lymph # (Auto) 1.7 (1.2-4.9) X10*3/uL Yell # (Auto) 0.6 (0.1-1.2) X10*3/uL Eos # (Auto) 0.1 (0.0-0.4) X10*3/uL Baso # (Auto) 0.0 (0.0-0.2) X10*3/uL Abs Immat Gran (auto) 0.01 (0.00-0.03) X10*3/uL Absolute Neuts (auto) 4.1 (2.0-8.3) X10*3/uL Absolute Nucleated RBC 0.000 (0.0-0.012) X10*3/uL Nucleated RBC % (auto) 0.0 (0.0-0.2) /100WBC Sodium 145 (135-145) mmol/L Potassium 3.2 L (3.3-5.1) mmol/L Chloride 109 H (96-108) mmol/L Carbon Dioxide 23 (22-29) mmol/L Anion Gap 16 (12-20) BUN 11 (9-16) mg/dL Creatinine 0.77 (0.5-1.4) mg/dL Estim Creat Clear Calc 70.0 Estimated GFR > 60 Random Glucose 148 H D (60-115) mg/dL Calcium 8.6 D (8.4-10.2) mg/dL Magnesium 2.0 (1.6-2.6) mg/dL Total Bilirubin 0.3 (0.0-1.0) mg/dL Direct Bilirubin 0.2 (0.0-0.5) mg/dL AST 17 (5-31) U/L ALT 13 (0-31) U/L Alkaline Phosphatase 93 (39-117) U/L Troponin I High Sens < 3.5 (<3.5-17.0) ng/L B-Natriuretic Peptide < 10 (<100) pg/mL Total Protein 6.7 (6.5-8.0) g/dL Albumin 4.1 (3.5-5.0) g/dL Imaging Data Chest x-ray: Radiologist's impression: FINDINGS: Cardiac leads overlie the chest. Mild dependent atelectasis. No consolidation, pneumothorax, or pleural effusion. Cardiomediastinal contours are normal. Pulmonary vasculature is unremarkable. No acute osseous abnormalities. XR/XR chest 1V IMPRESSION: Mild dependent atelectasis. No acute pulmonary findings. ECG Data Attestation: I personally reviewed and interpreted this ECG as follows: (Sinus rhythm, heart rate 89, nonspecific ST segment depressions in V4 through V6, no T-wave inversions, prolonged QTC at 566) Discharge Plan Discharge Clinical Impression: Chest pain, Nausea and vomiting Prescriptions: No Action clonazepam [Klonopin] 0.5 mg Tablet 0.5 mg PO BID RF: 0 gabapentin 400 mg Capsule 400 mg PO BEDTIME RF: 0 mirtazapine [Remeron] 30 mg Tablet 30 mg PO BEDTIME RF: 0 zolpidem [Ambien] 10 mg Tablet 10 mg PO BEDTIME PRN (Reason: Sleep) RF: 0 gabapentin 100 mg Tablet 100 mg PO DAILY RF: 0 quetiapine [Seroquel] 50 mg Tablet 50 mg PO BEDTIME RF: 0 Lipitor RF: 0 amlodipine RF: 0 iron RF: 0 tamsulosin 0.4 mg capsule 0.4 mg PO DAILY Qty: 14 RF: 0 prednisone 20 mg tablet 20 mg PO DAILY 6 Days Qty: 6 RF: 0 phenazopyridine [Pyridium] 200 mg tablet 200 mg PO TID PRN (Reason: pain) 3 Days Qty: 7 RF: 0 nitrofurantoin monohyd/m-cryst [Macrobid] 100 mg capsule 100 mg PO Q12H 7 Days Qty: 14 RF: 0 naproxen [Naprosyn] 500 mg tablet 500 mg PO BID Qty: 20 RF: 0
[2020-09-21 06:15] LABS: MANUAL DIFF FLAG NO
[2020-09-21 06:17] LABS: Basophils Percent Auto 0.3 % (0-2); Eosinophils Absolute Auto 0.1 X10*3/uL (0.0-0.4); Eosinophils Percent Auto 1.7 % (0-4); Hematocrit 35.8 % (37-47); Hemoglobin 11.4 g/dl (12.0-16.0); Imm Gran Abs Auto 0.01 X10*3/uL (0.00-0.03); Imm Gran Pct Auto 0.2 % (0.0-0.4); Lymphocytes Absolute Auto 1.7 X10*3/uL (1.2-4.9); Lymphocytes Percent Auto 26.2 % (20-40); Mean Corpuscular HGB Conc 31.8 g/dl (31.0-35.0); Mean Corpuscular Hemoglobin 27.1 pg (27.0-33.0); Mean Corpuscular Volume 85.2 fL (80-98); Mean Platelet Volume 10.2 fL (9.4-12.3); Monocytes Absolute Auto 0.6 X10*3/uL (0.1-1.2); Monocytes Percent Auto 8.7 % (2-11); Neutrophils Absolute Auto 4.1 X10*3/uL (2.0-8.3); Neutrophils Percent Auto 62.9 % (45-73); Platelet Count 239 X10*3/uL (160-400); Red Cell Distribution Width 14.3 % (11.0-16.0); White Blood Count 6.5 X10*3/uL (4.8-10.8)
[2020-09-21] MEDS: ondansetron HCL 4 MG/2 ML VIAL IVPUSH (06:38)
--- NOTE | 2020-09-21 06:39 | PC.NURSE ---
patient woken multiple times from a sound sleep. Patient was medicated with zofran per order, before this RN as done administering the zofran the patient was sleeping, vitals stable.
[2020-09-21 06:41] LABS: Alanine Aminotransferase 13 U/L (0-31); Albumin Level 4.1 g/dL (3.5-5.0); Alkaline Phosphatase 93 U/L (39-117); Anion Gap 16 (12-20); Aspartate Amino Transferase 17 U/L (5-31); Bilirubin Direct 0.2 mg/dL (0.0-0.5); Bilirubin Total 0.3 mg/dL (0.0-1.0); Blood Urea Nitrogen 11 mg/dL (9-16); Calcium 8.6 mg/dL (8.4-10.2); Carbon Dioxide 23 mmol/L (22-29); Chloride 109 mmol/L (96-108); Estimated Glomerular Filt Rate > 60; Glucose Random 148 mg/dL (60-115); Potassium 3.2 mmol/L (3.3-5.1); Sodium 145 mmol/L (135-145); Total Protein 6.7 g/dL (6.5-8.0)
[2020-09-21 06:43] VITALS: BP 115/70; PULSE 80; RESP 20; O2SAT 94
[2020-09-21 06:44] VITALS: PULSE 80
[2020-09-21 06:44] LABS: Troponin-I High Sensitivity < 3.5 ng/L (<3.5-17.0)
--- NOTE | 2020-09-21 06:51 | PC.NURSE ---
RECEIVED REPORT FROM DOROTA PERRY PT IS CURRENTLY ASLEEP, RESPIRATIONS EVEN AND UNLABORED
[2020-09-21 06:52] LABS: B Type Natriuretic Peptide < 10 pg/mL (<100)
[2020-09-21 07:18] VITALS: BP 121/65; PULSE 82; RESP 20; O2SAT 98
--- NOTE | 2020-09-21 07:21 | PC.NURSE ---
pt sleeping but easily arousable, pt still reports chest pain 9/10, vs stable, ns on the monitor. pt is having some audible wheezing, sound mostly in the upper airway but also slight wheezing on the left lower lobe. pt falls right back to sleep
[2020-09-21] MEDS: Potassium Chloride Packet 20 MEQ PACKET 40 MEQ PO (07:36)
[2020-09-21 08:02] LABS: D Dimer 231 NG/ML
[2020-09-21 09:23] VITALS: BP 108/65; PULSE 72; RESP 20; O2SAT 98
== END 2020-09-21 09:24 | disposition home or self-care (01) ==
PROVIDERS: Emergency Provider Emergency Medicine; PCP Internal Medicine Geriatric Medicine
DX: R07.9 Chest pain, unspecified (principal); R11.2 Nausea with vomiting, unspecified; I10 Essential (primary) hypertension; F17.200 Nicotine dependence, unspecified, uncomplicated; Z86.718 Personal history of other venous thrombosis and embolism; Z87.442 Personal history of urinary calculi; Z79.899 Other long term (current) drug therapy
CPT/HCPCS: 36415; 71045; 80048; 80076; 83735; 83880; 84484; 85025; 85379; 93005; 96374; 99284; J2405

== ENCOUNTER 2020-10-18 04:08 | Emergency (ER) | payer MEDICAID, SELFPAY ==
--- NOTE | ~2020-10-18 | XR_ITS ---
EXAMINATION: LUMBOSACRAL SPINE 3 VIEWS CLINICAL INFORMATION: Lumbar pain. COMPARISON: 08/05/2020. TECHNIQUE: AP, lateral, spot lateral views of the lumbosacral spine are provided. FINDINGS: There are no fractures. The lumbar vertebrae are in normal alignment. Disc heights and vertebral body heights are well-preserved. There is slight increased sclerosis within the facet joints of the lumbar spine. XR/XR lumbar spine 2-3V IMPRESSION: Mild lumbar spine degenerative change without evidence of acute injury. EXAMINATIONS: PELVIS 1 VIEW AND BILATERAL HIPS 2 VIEWS EACH CLINICAL INFORMATION: Bilateral hip pain. COMPARISON: 08/05/2020. TECHNIQUE: A supine view of the pelvis is provided. AP neutral and frog-leg lateral views of each hip are provided. FINDINGS: There are no fractures. Both femoral heads are seated within well-formed acetabula. No dysplastic changes are identified. The visualized bowel gas pattern is unremarkable. IMPRESSION: Unremarkable pelvic and bilateral hip radiographs.
--- NOTE | ~2020-10-18 | XR_ITS ---
EXAMINATION: LUMBOSACRAL SPINE 3 VIEWS CLINICAL INFORMATION: Lumbar pain. COMPARISON: 08/05/2020. TECHNIQUE: AP, lateral, spot lateral views of the lumbosacral spine are provided. FINDINGS: There are no fractures. The lumbar vertebrae are in normal alignment. Disc heights and vertebral body heights are well-preserved. There is slight increased sclerosis within the facet joints of the lumbar spine. XR/XR hip BI w PEL1V IMPRESSION: Mild lumbar spine degenerative change without evidence of acute injury. EXAMINATIONS: PELVIS 1 VIEW AND BILATERAL HIPS 2 VIEWS EACH CLINICAL INFORMATION: Bilateral hip pain. COMPARISON: 08/05/2020. TECHNIQUE: A supine view of the pelvis is provided. AP neutral and frog-leg lateral views of each hip are provided. FINDINGS: There are no fractures. Both femoral heads are seated within well-formed acetabula. No dysplastic changes are identified. The visualized bowel gas pattern is unremarkable. IMPRESSION: Unremarkable pelvic and bilateral hip radiographs.
[2020-10-18 04:12] VITALS: BP 144/78; PULSE 98; O2SAT 99
--- NOTE | 2020-10-18 04:16 | ED_ITS ---
HPI - General Adult General Chief complaint: Back Pain/Injury Stated complaint: NON TRAUMATIC HIP/BACK PAIN Time Seen by Provider: 10/18/20 04:09 Source: patient Mode of arrival: EMS Limitations: no limitations History of Present Illness HPI narrative: Patient comes emergency room complaining of bilateral hip pain and lumbar pain. Patient states it has been present for 3 days, was unable to sleep and came to the emergency room via EMS. Patient denies trauma. When EMS arrived to the patient's residence, patient was ambulatory, was able to climb to the ambulance by herself with no assistance. Patient denies fever, chills, denies UTI symptoms, no flank pain. Patient denies urinary/fecal incontinence or retention Related Data Home Medications Medication Instructions Recorded Confirmed clonazepam [Klonopin] 0.5 mg PO BID PRN 04/02/20 04/02/20 gabapentin 400 mg PO BEDTIME 04/02/20 04/02/20 iron 04/02/20 mirtazapine [Remeron] 30 mg PO BEDTIME 04/02/20 04/02/20 zolpidem [Ambien] 10 mg PO BEDTIME PRN 04/02/20 04/02/20 amlodipine 1 tab PO DAILY 09/21/20 atorvastatin 1 tab PO DAILY 09/21/20 clonidine HCl 1 tab PO BID PRN 09/21/20 cyanocobalamin (vitamin B-12) 1 tab PO DAILY 09/21/20 docusate sodium [DOK] 1 - 2 cap PO BEDTIME PRN 09/21/20 fluoxetine 3 cap PO QAM 09/21/20 gabapentin 1 cap PO TID PRN 09/21/20 loratadine 1 tab PO DAILY 09/21/20 ondansetron HCl 1 tab PO Q8H PRN 09/21/20 polyvinyl alcohol [Artificial 1 drp OPHTHALMIC (EYE) TID 09/21/20 Tears (polyvin alc)] quetiapine 1 tab PO BID PRN 09/21/20 topiramate 1 tab PO BID 09/21/20 Previous Rx's Medication Instructions Recorded nitrofurantoin monohyd/m-cryst 100 mg PO Q12H 7 Days #14 cap 06/24/20 [Macrobid] tamsulosin 0.4 mg PO DAILY #14 cap 06/24/20 naproxen [Naprosyn] 500 mg PO BID #20 tab 08/05/20 tramadol 50 mg PO TID PRN #3 tab 10/18/20 Allergies Allergy/AdvReac Type Severity Reaction Status Date / Time aspirin [ASA] Allergy Intermediate RASH, Verified 08/05/20 05:59 nausea and vomiting ibuprofen [IBUPROFEN] Allergy Intermediate RASH Verified 08/05/20 05:59 nicotine Allergy Intermediate RASH FROM Verified 08/05/20 05:59 NICOTINE PATCH, nausea and vomiting ketorolac [From TORADOL] Allergy Mild RAPID HR Verified 08/05/20 05:59 AND HIVES Review of Systems Review of Systems: Constitutional : No Weight loss, No Fever, No Chills, No Night Sweats, No Fatigue, No Malaise ENT/Mouth : No Hearing loss, No Ear Pain, No Nasal Congestion, No Sinus Pain, No Hoarseness, No sore throat, No Rhinorrhea, No Swallowing Difficulty Eyes: No Eye Pain, No Swelling, No Redness, No Foreign Body, No Discharge, No Vision Changes Cardiovascular : No Chest Pain, No SOB, No Dyspnea on Exertion, No Orthopnea, No Edema, No Palpitations Respiratory : No Cough, No Sputum, No Wheezing, No Smoke Exposure, No Dyspnea Gastrointestinal : No Nausea, No Vomiting, No Diarrhea, No Constipation, No abdominal Pain, No Hematochezia, No Melena Genitourinary : no irregular bleeding, No Dysuria, No Urinary Frequency, No Hematuria, No Urinary Incontinence, No Urgency, No Flank Pain, No Urinary Flow Changes, No Hesitancy Musculoskeletal : Complaining of chronic bilateral knee pain, complaining of bilateral hip pain and lumbar pain, denies trauma Skin : No Skin Lesions, No rash Neuro : No Weakness, No Numbness, No Paresthesias, No Loss of Consciousness, No Dizziness, No Headache Psych : No Anxiety/Panic, No Depression, No SI/HI/AH/VH, No Social Issues, Heme/Lymph: No Bruising, No Bleeding,No Lymphadenopathy Endocrine : No Polyuria, No Polydipsia, No Temperature Intolerance [facility] Past Medical History Medical History Anemia delivery delivered DVT (deep venous thrombosis) HTN (hypertension) Hypercholesteremia Kidney stones Surgical History Total knee replacement status Social History Social History Alcohol intake: never Smoking Status: Current every day smoker Advance Directives: No Advance Directives Information Provided: No Physical Exam Vital Signs: Vital Signs: Last Vital Signs Temp 98.6 F 10/18/20 04:22 Pulse 112 H 10/18/20 04:22 Resp 18 10/18/20 04:22 BP 154/72 H 10/18/20 04:22 Pulse Ox 97 10/18/20 04:22 Body Mass Index 30.5 Appearance: Alert. Oriented X3. No acute distress. Eyes: Pupils equal, round and reactive to light. ENT: Pharynx normal. Neck: Normal inspection. Neck supple. No lymph nodes noted. No crepitus CVS: Normal heart rate and rhythm. Pulses normal. Normal S1 and S2 Respiratory: No respiratory distress. Breath sounds normal. No Wheezing. No rales Abdomen: Soft and nontender. No rigidity. No distention. good BS x4 Back: Mild pain to palpation over the lumbar area. Skin: Skin warm and dry. Normal skin color. Normal skin turgor. Extremities: No lower extremity edema. Patient is able to flex and extend knees and hips bilaterally, normal rotation bilaterally. Patient has normal gait Neuro: Oriented X 3. No motor deficit. No sensory deficit. Moving all extermities. No slurred speech. Course Course Course Narrative: I discussed the x-rays with the patient, patient likely has ever musculoskeletal pain. Patient will follow-up with her PCP on Monday Medical Decision Making Lab Data Labs: Lab Results 10/18/20 Range/Units 05:08 Urine Color YELLOW Urine Appearance CLEAR Urine pH 5.0 (5.0-8.0) Ur Specific [place] >= 1.030 H (1.005-1.025) Urine Protein NEG (NEG-TRACE) MG/DL Urine Glucose (UA) >=1000 H (NEG) MG/DL Urine Ketones NEG (NEG) MG/DL Urine Blood NEG (NEG) Urine Nitrite NEG (NEG) Ur Leukocyte Esterase NEG (NEG) Urine RBC 1-4 (0) /HPF Urine WBC 1-4 (0-4) /HPF Ur Squamous Epith Cells 1+ /LPF Urine Bacteria 1+ /LPF Urine Yeast 1+ /HPF Imaging Data Lumbar x-ray: Radiologist's impression: There are no fractures. The lumbar vertebrae are in normal alignment. Disc heights and vertebral body heights are well-preserved. There is slight increased sclerosis within the facet joints of the lumbar spine. XR/XR hip BI w PEL1V IMPRESSION: Mild lumbar spine degenerative change without evidence of acute injury. Bilateral hip: Radiologist's impression: A supine view of the pelvis is provided. AP neutral and frog-leg lateral views of each hip are provided. FINDINGS: There are no fractures. Both femoral heads are seated within well-formed acetabula. No dysplastic changes are identified. The visualized bowel gas pattern is unremarkable. IMPRESSION: Unremarkable pelvic and bilateral hip radiographs. Discharge Plan Discharge Clinical Impression: Arthralgia of hip Qualifiers: Laterality: bilateral Qualified Code(s): M25.551 - Pain in right hip Patient Disposition: Home, Self-Care Instructions: Arthralgia (ED) Additional Instructions: Please follow-up with your primary care physician tomorrow. If you have any worsening or new symptoms, please return to the emergency room or call 911 Prescriptions: New tramadol 50 mg tablet 50 mg PO TID PRN (Reason: pain) Qty: 3 RF: 0 No Action quetiapine 25 mg tablet 1 tab PO BID PRN (Reason: anxiety) RF: 0 atorvastatin 10 mg tablet 1 tab PO DAILY RF: 0 polyvinyl alcohol [Artificial Tears (polyvin alc)] 1.4 % drops 1 drp ophthalmic (eye) TID RF: 0 ondansetron HCl 4 mg tablet 1 tab PO Q8H PRN (Reason: nausea) RF: 0 topiramate 25 mg tablet 1 tab PO BID RF: 0 clonidine HCl 0.2 mg tablet 1 tab PO BID PRN (Reason: Panic Attack(S)) RF: 0 cyanocobalamin (vitamin B-12) 500 mcg tablet 1 tab PO DAILY RF: 0 amlodipine 10 mg tablet 1 tab PO DAILY RF: 0 docusate sodium [DOK] 100 mg capsule 1 - 2 cap PO BEDTIME PRN (Reason: constipation) RF: 0 gabapentin 100 mg capsule 1 cap PO TID PRN (Reason: anxiety) RF: 0 fluoxetine 20 mg capsule 3 cap PO QAM RF: 0 loratadine 10 mg tablet 1 tab PO DAILY RF: 0 clonazepam [Klonopin] 0.5 mg Tablet 0.5 mg PO BID PRN (Reason: Anxiety) RF: 0 gabapentin 400 mg Capsule 400 mg PO BEDTIME RF: 0 mirtazapine [Remeron] 30 mg Tablet 30 mg PO BEDTIME RF: 0 zolpidem [Ambien] 10 mg Tablet 10 mg PO BEDTIME PRN (Reason: Sleep) RF: 0 iron RF: 0 tamsulosin 0.4 mg capsule 0.4 mg PO DAILY Qty: 14 RF: 0 nitrofurantoin monohyd/m-cryst [Macrobid] 100 mg capsule 100 mg PO Q12H 7 Days Qty: 14 RF: 0 naproxen [Naprosyn] 500 mg tablet 500 mg PO BID Qty: 20 RF: 0
[2020-10-18 04:22] VITALS: BP 154/72; PULSE 112; RESP 18; TEMP 37; O2SAT 97; BMI 30.5
[2020-10-18] MEDS: Acetaminophen 325 MG TABLET 650 MG PO (05:03)
[2020-10-18 05:16] LABS: Glucose Urine UA >=1000 MG/DL (NEG); Leukocyte Esterase Urine NEG (NEG); Nitrite Urine NEG (NEG); Specific Gravity - Urine >= 1.030 (1.005-1.025); Urine Blood NEG (NEG); Urine Ketones NEG (NEG); Urine Protein NEG (NEG-TRACE)
[2020-10-18 05:27] LABS: Appearance Urine CLEAR; Bacteria Urine 1+ /LPF; Color Urine YELLOW; Squamous Epithelial Cell Urine 1+ /LPF
[2020-10-18] MEDS: traMADoL HCL 50 MG TABLET PO (05:43)
[2020-10-18 05:45] VITALS: BP 157/61; PULSE 91; RESP 18; O2SAT 98
[2020-10-18 05:52] LABS: Amphetamine Screen Urine Not Detected (Not Detect); Barbiturates, Urine Not Detected (Not Detect); Benzodiazepines Screen Urine Not Detected (Not Detect); Cannabinoid Screen Urine Not Detected (Not Detect); Cocaine Screen Urine Not Detected (Not Detect); Opiate Screen Urine Not Detected (Not Detect); Phencyclidine Screen Urine Not Detected (Not Detect)
== END 2020-10-18 05:52 | disposition home or self-care (01) ==
PROVIDERS: Emergency Provider Emergency Medicine; PCP Family Medicine
DX: M25.551 Pain in right hip (principal); M54.5 Low back pain; M25.552 Pain in left hip; Z79.899 Other long term (current) drug therapy; F17.200 Nicotine dependence, unspecified, uncomplicated; Z71.6 Tobacco abuse counseling
CPT/HCPCS: 72100; 73521; 80307; 81001; 99284

== ENCOUNTER 2020-11-14 18:29 | Emergency (ER) | payer MEDICAID, SELFPAY ==
--- NOTE | 2020-11-14 19:10 | ECG_ITS ---
Test Reason : CP,ANXIETY Blood Pressure : / mmHG Vent. Rate : 081 BPM Atrial Rate : 081 BPM P-R Int : 142 ms QRS Dur : 076 ms QT Int : 404 ms P-R-T Axes : 061 012 067 degrees QTc Int : 469 ms Normal sinus rhythm Nonspecific ST abnormality Abnormal ECG When compared with ECG of 21-SEP-2020 05:46, Nonspecific T wave abnormality no longer evident in Inferior leads T wave inversion no longer evident in Anterolateral leads QT has shortened Referred By: Belinda Buenrostro Electronically Signed By:Himanshu Patrick
--- NOTE | 2020-11-14 19:10 | ED.ANXIETY ---
HPI - Anxiety General Chief Complaint: Anxiety Stated Complaint: panic attack Time Seen by Provider: 11/14/20 20:14 Source: patient Mode of arrival: ambulatory Limitations: no limitations History of Present Illness HPI narrative: 54-year-old female with past medical history of anemia, DVT, hypertension, hyperlipidemia, kidney stones, anxiety depression presents with panic attack and anxiety. Patient was informed approximately an hour ago that her mother suddenly, she was called by emergency room physician from [place]. Patient is appropriately and visibly upset, crying, sobbing, and states to have chest pain at this time. She does not report any other symptoms. MD complaint: anxiety and shortness of breath Onset (ago): hour(s) (Within the hour of arrival) Severity: moderate Quality: constant History of similar episodes: No Provoking factors: emotional stress and recent /illness of family member Relieving factors: nothing Exacerbating factors: thinking about event Associated symptoms: chest pain Related Data Home Medications Medication Instructions Recorded Confirmed clonazepam [Klonopin] 0.5 mg PO BID PRN 04/02/20 04/02/20 gabapentin 400 mg PO BEDTIME 04/02/20 04/02/20 iron 04/02/20 mirtazapine [Remeron] 30 mg PO BEDTIME 04/02/20 04/02/20 zolpidem [Ambien] 10 mg PO BEDTIME PRN 04/02/20 04/02/20 amlodipine 1 tab PO DAILY 09/21/20 atorvastatin 1 tab PO DAILY 09/21/20 clonidine HCl 1 tab PO BID PRN 09/21/20 cyanocobalamin (vitamin B-12) 1 tab PO DAILY 09/21/20 docusate sodium [DOK] 1 - 2 cap PO BEDTIME PRN 09/21/20 fluoxetine 3 cap PO QAM 09/21/20 gabapentin 1 cap PO TID PRN 09/21/20 loratadine 1 tab PO DAILY 09/21/20 ondansetron HCl 1 tab PO Q8H PRN 09/21/20 polyvinyl alcohol [Artificial 1 drp OPHTHALMIC (EYE) TID 09/21/20 Tears (polyvin alc)] quetiapine 1 tab PO BID PRN 09/21/20 topiramate 1 tab PO BID 09/21/20 Previous Rx's Medication Instructions Recorded nitrofurantoin monohyd/m-cryst 100 mg PO Q12H 7 Days #14 cap 06/24/20 [Macrobid] tamsulosin 0.4 mg PO DAILY #14 cap 06/24/20 naproxen [Naprosyn] 500 mg PO BID #20 tab 08/05/20 tramadol 50 mg PO TID PRN #3 tab 10/18/20 Allergies Allergy/AdvReac Type Severity Reaction Status Date / Time aspirin [ASA] Allergy Intermediate RASH, Verified 08/05/20 05:59 nausea and vomiting ibuprofen [IBUPROFEN] Allergy Intermediate RASH Verified 08/05/20 05:59 nicotine Allergy Intermediate RASH FROM Verified 08/05/20 05:59 NICOTINE PATCH, nausea and vomiting ketorolac [From TORADOL] Allergy Mild RAPID HR Verified 08/05/20 05:59 AND HIVES Review of Systems Review of Systems: Constitutional: No Fever, No Chills ENT/Mouth: No Ear Pain, No Nasal Congestion, No sore throat Eyes: No Eye Pain, No Swelling, No Redness Cardiovascular: Positive Chest Pain, positive SOB Respiratory: No Cough, No Sputum, No Dyspnea Gastrointestinal: No Nausea, No Vomiting, No Diarrhea, No Hematochezia, No Melena Genitourinary: No Dysuria, No Urinary Frequency, No Hematuria Musculoskeletal: No Myalgias Skin: No Skin Lesions, No rash Neuro: No Weakness, No Numbness, No Paresthesias, No Dizziness, No Headache Psych: positive Anxiety, positive panic, positive Depression, no SI/HI Heme/Lymph: No Lymphadenopathy Endocrine: No Polyuria, No Polydipsia Yes all other systems are reviewed and are negative [facility] Past Medical History Attestation statement: The following information was validated with the patient. Source: old records reviewed Medical History Anemia delivery delivered DVT (deep venous thrombosis) HTN (hypertension) Hypercholesteremia Kidney stones Surgical History Total knee replacement status Social History Social History Alcohol intake: unknown Smoking Status: Current every day smoker Use of substances other than those prescribed or required for medical reasons: Unknown Last Used Substance: Unknown Advance Directives: No Advance Directives Information Provided: No Patient : No Physical Exam Vital Signs: Vital Signs: Last Vital Signs Temp 98.2 F 11/14/20 19:26 Pulse 76 11/14/20 20:59 Resp 16 11/14/20 20:59 BP 120/61 11/14/20 20:59 Pulse Ox 98 11/14/20 20:59 Body Mass Index 26.0 Appearance: Alert. Oriented X3. Severe emotional distress. Eyes: Pupils equal, round and reactive to light. ENT: Pharynx normal. Neck: Normal inspection. Neck supple. CVS: Tachycardic heart rate and rhythm. Pulses normal. Respiratory: No respiratory distress. Breath sounds normal. Abdomen: Soft and nontender. Skin: Skin warm and dry. Normal skin color. Normal skin turgor. Extremities: No lower extremity edema. Neuro: No motor deficit. No sensory deficit. Course Course Course Narrative: 54-year-old female presents with panic and anxiety, appropriate to the situation. Her mother suddenly and she was informed by telephone by emergency room provider from [place] within the hour arrival. Patient states to have chest pain, we will order EKG, labs and troponin. I will give Ativan 2 mg p.o.. EKG is normal sinus no indication of ST elevation or depression. Patient does not want labs drawn, states that is causing her more anxiety. Approximately an hour and a half after p.o. Ativan, patient heart rate is 76, states to have a dull ache however she would like to leave. Her son has purchased tickets for her to fly to [place] in the morning. Plan of care is to discharge home. She does have a prescription for Klonopin, and she was advised to use that medication to help with anxiety and panic symptoms. MDM - Anxiety Differential Diagnosis Differential diagnosis: Likely hyperventilation, panic disorder and acute anxiety Medical Records Attestation: I reviewed the patient's medical records. ECG Data Attestation: I personally reviewed and interpreted this ECG as follows: ECG interpretation date: 11/14/20 ECG interpretation time: 19:48 Prior ECG tracings: available for review Interpretation: Vent. rate 81 BPM [place] interval 142 ms QRS duration 76 ms QT/QTc 404/469 ms P-R-T axes 61 12 67 Normal sinus rhythm Nonspecific ST abnormality Abnormal ECG When compared with ECG of 21-SEP-2020 05:46, Nonspecific T wave abnormality no longer evident in Inferior leads T wave inversion no longer evident in Anterolateral leads QT has shortened Discharge Plan Discharge Clinical Impression: Acute anxiety, Hyperventilation Patient Disposition: Home, Self-Care Instructions: Anxiety (ED) Additional Instructions: Please follow-up with her primary care physician. You are prescribed Klonopin, please take this medication to help with your anxiety. I am sorry for the loss of your mother. Thank you for choosing this emergency department for evaluation. Please follow-up with primary care physician as needed. Return to the emergency department for any new, concerning, or worsening symptoms. Prescriptions: No Action quetiapine 25 mg tablet 1 tab PO BID PRN (Reason: anxiety) RF: 0 atorvastatin 10 mg tablet 1 tab PO DAILY RF: 0 polyvinyl alcohol [Artificial Tears (polyvin alc)] 1.4 % drops 1 drp ophthalmic (eye) TID RF: 0 ondansetron HCl 4 mg tablet 1 tab PO Q8H PRN (Reason: nausea) RF: 0 topiramate 25 mg tablet 1 tab PO BID RF: 0 clonidine HCl 0.2 mg tablet 1 tab PO BID PRN (Reason: Panic Attack(S)) RF: 0 cyanocobalamin (vitamin B-12) 500 mcg tablet 1 tab PO DAILY RF: 0 amlodipine 10 mg tablet 1 tab PO DAILY RF: 0 docusate sodium [DOK] 100 mg capsule 1 - 2 cap PO BEDTIME PRN (Reason: constipation) RF: 0 gabapentin 100 mg capsule 1 cap PO TID PRN (Reason: anxiety) RF: 0 fluoxetine 20 mg capsule 3 cap PO QAM RF: 0 loratadine 10 mg tablet 1 tab PO DAILY RF: 0 clonazepam [Klonopin] 0.5 mg Tablet 0.5 mg PO BID PRN (Reason: Anxiety) RF: 0 gabapentin 400 mg Capsule 400 mg PO BEDTIME RF: 0 mirtazapine [Remeron] 30 mg Tablet 30 mg PO BEDTIME RF: 0 zolpidem [Ambien] 10 mg Tablet 10 mg PO BEDTIME PRN (Reason: Sleep) RF: 0 iron RF: 0 tamsulosin 0.4 mg capsule 0.4 mg PO DAILY Qty: 14 RF: 0 nitrofurantoin monohyd/m-cryst [Macrobid] 100 mg capsule 100 mg PO Q12H 7 Days Qty: 14 RF: 0 naproxen [Naprosyn] 500 mg tablet 500 mg PO BID Qty: 20 RF: 0 tramadol 50 mg tablet 50 mg PO TID PRN (Reason: pain) Qty: 3 RF: 0 Interventions: ED Discharge Assessment Last Done: 11/14/20 21:00 Discharge Date/Time: 11/14/20 21:02
[2020-11-14 19:26] VITALS: BP 153/76; PULSE 98; RESP 20; TEMP 36.8; O2SAT 97; BMI 26.0
[2020-11-14] MEDS: LORazepam 1 MG TABLET 2 MG PO (19:49)
--- NOTE | 2020-11-14 20:15 | PC.NURSE ---
PT WAS MED WITH TYLENOL PREVIOUSLY. PT NOW CALLED AND STATED THAT SHE HAS TO GO. HER SON IS WAITING IN [facility]. HE HAS BOUGHT TICKETS TO [place] AND THEY ARE LEAVING TONIGHT. PT REPORTS ANXIETY AND PAIN IS UNDER CONTROL. PT APPEARS CALM. NO FURTHER CRYING. PT ATE [employer]. PT DECLINED LABS. PROVIDER AWARE. PT TO BE DISCHARGED.
[2020-11-14] MEDS: Acetaminophen 325 MG TABLET 650 MG PO (20:19)
[2020-11-14 20:59] VITALS: BP 120/61; PULSE 76; RESP 16; O2SAT 98
== END 2020-11-14 21:02 | disposition home or self-care (01) ==
PROVIDERS: Emergency Provider Emergency Medicine; PCP Family Medicine
DX: F41.9 Anxiety disorder, unspecified (principal); R06.4 Hyperventilation; R00.0 Tachycardia, unspecified; Z72.89 Other problems related to lifestyle; Z63.4 Disappearance and death of family member; I10 Essential (primary) hypertension; E78.5 Hyperlipidemia, unspecified; F17.200 Nicotine dependence, unspecified, uncomplicated; Z86.718 Personal history of other venous thrombosis and embolism; Z87.442 Personal history of urinary calculi
CPT/HCPCS: 93005; 99283; 99284

== ENCOUNTER 2020-11-26 02:17 | Emergency (ER) | payer MEDICAID, SELFPAY ==
--- NOTE | ~2020-11-26 | CT_ITS ---
EXAMINATION: CT ABDOMEN AND PELVIS WITHOUT CONTRAST CLINICAL INFORMATION: Left flank pain COMPARISON: 08/05/2020 TECHNIQUE: Multidetector volumetric imaging was performed from the superior aspect of the liver through the pubic symphysis. Sagittal and coronal reformatted images were obtained on the technologist's workstation. This CT examination was performed using dose optimization techniques as appropriate, variously including the following: *Automated exposure control *Adjustment of mA and/or kV according to patient size (this includes techniques or standardized protocols for targeted exams where dose is matched to indication/reason for exam; i.e. extremities or head) *Use of iterative reconstruction technique DLP: 628 mGy-cm FINDINGS: LUNG BASES: The visualized lung bases are unremarkable. LIVER, GALLBLADDER, AND BILIARY TREE: The liver is normal in size, shape, and attenuation. No focal hepatic lesion or biliary ductal dilatation is present. The gallbladder is contracted with no evidence of radiopaque gallstones, gallbladder wall thickening, or obvious pericholecystic inflammatory changes. PANCREAS: Unremarkable. SPLEEN: Unremarkable. ADRENAL GLANDS: Unremarkable. KIDNEYS AND URETERS: The kidneys are normal in size, shape, and attenuation. No hydronephrosis or hydroureter. Left midpole 0.3 cm calculus is 10 cm from the posterior axillary line. Adjacent smaller calculus noted. 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 BLADDER: Unremarkable. GASTROINTESTINAL TRACT: The stomach is unremarkable. Normal caliber small bowel. There is no obstruction. Normal appendix. No colonic wall thickening or inflammatory change. No free air or free fluid. ABDOMINAL WALL: No significant hernia is appreciated. LYMPH NODES: Normal. VASCULAR: Unremarkable. PELVIC VISCERA: The uterus and adnexa are unremarkable. OSSEOUS STRUCTURES: No acute or suspicious osseous abnormality. CT/CT abdomen pelvis wo con IMPRESSION: No hydronephrosis. Small nonobstructing left midpole renal calculi.
[2020-11-26 02:20] VITALS: BP 138/72; PULSE 81; RESP 18; TEMP 36.4; O2SAT 98; BMI 26.4
[2020-11-26 02:48] LABS: MANUAL DIFF FLAG NO
[2020-11-26 02:53] LABS: Basophils Percent Auto 0.3 % (0-2); Eosinophils Absolute Auto 0.2 X10*3/uL (0.0-0.4); Eosinophils Percent Auto 2.3 % (0-4); Hematocrit 35.7 % (37-47); Hemoglobin 11.5 g/dl (12.0-16.0); Imm Gran Abs Auto 0.03 X10*3/uL (0.00-0.03); Imm Gran Pct Auto 0.4 % (0.0-0.4); Lymphocytes Absolute Auto 2.8 X10*3/uL (1.2-4.9); Lymphocytes Percent Auto 40.3 % (20-40); Mean Corpuscular HGB Conc 32.2 g/dl (31.0-35.0); Mean Corpuscular Hemoglobin 27.5 pg (27.0-33.0); Mean Corpuscular Volume 85.4 fL (80-98); Mean Platelet Volume 9.7 fL (9.4-12.3); Monocytes Absolute Auto 0.4 X10*3/uL (0.1-1.2); Monocytes Percent Auto 6.2 % (2-11); Neutrophils Absolute Auto 3.5 X10*3/uL (2.0-8.3); Neutrophils Percent Auto 50.5 % (45-73); Platelet Count 282 X10*3/uL (160-400); Red Blood Count 4.18 X10*6/uL (4.20-5.50); Red Cell Distribution Width 14.6 % (11.0-16.0)
[2020-11-26 02:55] LABS: Glucose Urine UA >=1000 MG/DL (NEG); Leukocyte Esterase Urine NEG (NEG); Nitrite Urine NEG (NEG); Specific Gravity - Urine >= 1.030 (1.005-1.025); Urine Blood NEG (NEG); Urine Ketones NEG (NEG); Urine Protein NEG (NEG-TRACE)
[2020-11-26 02:56] LABS: Appearance Urine CLEAR; Color Urine YELLOW
[2020-11-26 03:01] LABS: Bacteria Urine TRACE /LPF; RBC Urine 0-2 /HPF (0); Squamous Epithelial Cell Urine TRACE /LPF; WBC Urine 0-2 /HPF (0-4)
[2020-11-26 03:03] LABS: COVID-19 Test Negative (Negative); IDNOW Serial# 9DD0AD1C
[2020-11-26 03:15] LABS: Alanine Aminotransferase 39 U/L (0-31); Alkaline Phosphatase 112 U/L (39-117); Anion Gap 13 (12-20); Aspartate Amino Transferase 34 U/L (5-31); Bilirubin Total 0.2 mg/dL (0.0-1.0); Blood Urea Nitrogen 14 mg/dL (9-16); Calcium 8.7 mg/dL (8.4-10.2); Carbon Dioxide 24 mmol/L (22-29); Chloride 108 mmol/L (96-108); Creatinine Clr Calc Pharmacy 77.7; Estimated Glomerular Filt Rate > 60; Glucose Random 139 mg/dL (60-115); Potassium 3.7 mmol/L (3.3-5.1); Sodium 141 mmol/L (135-145); Total Protein 7.2 g/dL (6.5-8.0)
--- NOTE | 2020-11-26 03:28 | ED_ITS ---
HPI - Abdominal Pain General Chief Complaint: Abdominal Pain Stated Complaint: Abd pain Time Seen by Provider: 11/26/20 03:08 Source: patient Mode of arrival: ambulatory Limitations: no limitations History of Present Illness HPI narrative: Patient comes emergency room complaining of left flank pain. Patient states that she has had multiple episodes of flank pain in the past, this episode started yesterday. Patient denies dysuria, no nausea vomiting, no abdominal pain. Related Data Home Medications Medication Instructions Recorded Confirmed albuterol sulfate [ProAir HFA] 2 puff PO Q4-6H PRN 11/26/20 11/26/20 amlodipine 1 tab PO DAILY 11/26/20 11/26/20 ascorbic acid (vitamin C) 1 tab PO BID 11/26/20 11/26/20 atorvastatin 1 tab PO DAILY 11/26/20 11/26/20 clonidine HCl 1 tab PO BID PRN 11/26/20 11/26/20 cyanocobalamin (vitamin B-12) 1 tab PO DAILY 11/26/20 11/26/20 docusate sodium 1 - 2 cap PO BEDTIME PRN 11/26/20 11/26/20 fluoxetine 3 cap PO QAM 11/26/20 11/26/20 gabapentin 1 cap PO BEDTIME 11/26/20 11/26/20 gabapentin 1 cap PO TID PRN 11/26/20 11/26/20 loratadine 1 tab PO DAILY 11/26/20 11/26/20 loratadine 1 tab PO DAILY 11/26/20 11/26/20 mirtazapine 1 tab PO BEDTIME 11/26/20 11/26/20 mirtazapine 1 tab PO BEDTIME 11/26/20 11/26/20 ondansetron HCl 1 tab PO Q8H PRN 11/26/20 11/26/20 polyvinyl alcohol [Artificial 1 drp OPHTHALMIC (EYE) TID 11/26/20 11/26/20 Tears (polyvin alc)] quetiapine 1 tab PO BID PRN 11/26/20 11/26/20 topiramate 1 tab PO BID 11/26/20 11/26/20 zolpidem 1 tab PO BEDTIME PRN 11/26/20 11/26/20 Previous Rx's Medication Instructions Recorded tramadol 50 mg PO Q8H PRN #3 tab 11/26/20 Allergies Allergy/AdvReac Type Severity Reaction Status Date / Time aspirin [ASA] Allergy Intermediate RASH, Verified 08/05/20 05:59 nausea and vomiting ibuprofen [IBUPROFEN] Allergy Intermediate RASH Verified 08/05/20 05:59 nicotine Allergy Intermediate RASH FROM Verified 08/05/20 05:59 NICOTINE PATCH, nausea and vomiting ketorolac [From TORADOL] Allergy Mild RAPID HR Verified 08/05/20 05:59 AND HIVES Review of Systems Review of Systems Constitutional : No Weight loss, No Fever, No Chills, No Night Sweats, No Fatigue, No Malaise ENT/Mouth : No Hearing loss, No Ear Pain, No Nasal Congestion, No Sinus Pain, No Hoarseness, No sore throat, No Rhinorrhea, No Swallowing Difficulty Eyes: No Eye Pain, No Swelling, No Redness, No Foreign Body, No Discharge, No Vision Changes Cardiovascular : No Chest Pain, No SOB, No Dyspnea on Exertion, No Orthopnea, No Edema, No Palpitations Respiratory : No Cough, No Sputum, No Wheezing, No Smoke Exposure, No Dyspnea Gastrointestinal : Complaining of Nausea, No Vomiting, No Diarrhea, No Constipation, No abdominal Pain, complaining of left flank pain, No Hematochezia, No Melena Genitourinary : no irregular bleeding, No Dysuria, No Urinary Frequency, No Hematuria, No Urinary Incontinence, No Urgency, No Flank Pain, No Urinary Flow Changes, No Hesitancy Musculoskeletal : No joint pain, No Myalgias, No Joint Swelling Skin : No Skin Lesions, No rash Neuro : No Weakness, No Numbness, No Paresthesias, No Loss of Consciousness, No Dizziness, No Headache Psych : No Anxiety/Panic, No Depression, No SI/HI/AH/VH, No Social Issues, Heme/Lymph: No Bruising, No Bleeding,No Lymphadenopathy Endocrine : No Polyuria, No Polydipsia, No Temperature Intolerance Physical Exam Vital Signs: Vital Signs: Last Vital Signs Temp 97.6 F 11/26/20 02:20 Pulse 81 11/26/20 02:20 Resp 18 11/26/20 02:20 BP 138/72 11/26/20 02:20 Pulse Ox 98 11/26/20 02:20 Body Mass Index 26.4 Appearance: Alert. Oriented X3. No acute distress. Eyes: Pupils equal, round and reactive to light. ENT: Pharynx normal. Neck: Normal inspection. Neck supple. No lymph nodes noted. No crepitus CVS: Normal heart rate and rhythm. Pulses normal. Normal S1 and S2 Respiratory: No respiratory distress. Breath sounds normal. No Wheezing. No rales Abdomen: Soft and nontender. No rigidity. No distention. , positive CVA tenderness on the left side Skin: Skin warm and dry. Normal skin color. Normal skin turgor. Extremities: No lower extremity edema. No lower extremity edema. No Lacerations. No Rash Neuro: Oriented X 3. No motor deficit. No sensory deficit. Moving all extermities. No slurred speech. Course Course Course Narrative: Discussed the labs and imaging with the patient, patient does not have any signs that patient may be passing stones or passed a stone. Patient does have a chronic 2 mm nonobstructing left midpole renal calculi. MDM - Abdominal Pain Lab Data Result diagrams: 11/26/20 02:31 11/26/20 02:31 Labs: Lab Results 11/26/20 11/26/20 11/26/20 Range/Units 02:31 02:31 02:31 WBC 7.0 (4.8-10.8) X10*3/uL RBC 4.18 L (4.20-5.50) X10*6/uL Hgb 11.5 L (12.0-16.0) g/dl Hct 35.7 L (37-47) % MCV 85.4 (80-98) fL MCH 27.5 (27.0-33.0) pg MCHC 32.2 (31.0-35.0) g/dl RDW 14.6 (11.0-16.0) % Plt Count 282 (160-400) X10*3/uL MPV 9.7 (9.4-12.3) fL Immature Gran % (Auto) 0.4 (0.0-0.4) % Neut % (Auto) 50.5 (45-73) % Lymph % (Auto) 40.3 H (20-40) % [place] % (Auto) 6.2 (2-11) % Eos % (Auto) 2.3 (0-4) % Baso % (Auto) 0.3 (0-2) % Lymph # (Auto) 2.8 (1.2-4.9) X10*3/uL [place] # (Auto) 0.4 (0.1-1.2) X10*3/uL Eos # (Auto) 0.2 (0.0-0.4) X10*3/uL Baso # (Auto) 0.0 (0.0-0.2) X10*3/uL Abs Immat Gran (auto) 0.03 (0.00-0.03) X10*3/uL Absolute Neuts (auto) 3.5 (2.0-8.3) X10*3/uL Absolute Nucleated RBC 0.000 (0.0-0.012) X10*3/uL Nucleated RBC % (auto) 0.0 (0.0-0.2) /100WBC Hold Blue Top SEE NOTE Sodium 141 (135-145) mmol/L Potassium 3.7 (3.3-5.1) mmol/L Chloride 108 (96-108) mmol/L Carbon Dioxide 24 (22-29) mmol/L Anion Gap 13 (12-20) BUN 14 (9-16) mg/dL Creatinine 0.69 (0.5-1.4) mg/dL Estim Creat Clear Calc 77.7 Estimated GFR > 60 Random Glucose 139 H (60-115) mg/dL Calcium 8.7 (8.4-10.2) mg/dL Total Bilirubin 0.2 (0.0-1.0) mg/dL AST 34 H D (5-31) U/L ALT 39 H (0-31) U/L Alkaline Phosphatase 112 D (39-117) U/L Total Protein 7.2 (6.5-8.0) g/dL Albumin 4.0 (3.5-5.0) g/dL Urine Color Urine Appearance Urine pH (5.0-8.0) Ur Specific [place] (1.005-1.025) Urine Protein (NEG-TRACE) MG/DL Urine Glucose (UA) (NEG) MG/DL Urine Ketones (NEG) MG/DL Urine Blood (NEG) Urine Nitrite (NEG) Ur Leukocyte Esterase (NEG) Urine RBC (0) /HPF Urine WBC (0-4) /HPF Ur Squamous Epith Cells /LPF Urine Bacteria /LPF COVID-19 ([facility]) (Negative) COVID-19 Clin Com 11/26/20 11/26/20 Range/Units 02:31 02:31 WBC (4.8-10.8) X10*3/uL RBC (4.20-5.50) X10*6/uL Hgb (12.0-16.0) g/dl Hct (37-47) % MCV (80-98) fL MCH (27.0-33.0) pg MCHC (31.0-35.0) g/dl RDW (11.0-16.0) % Plt Count (160-400) X10*3/uL MPV (9.4-12.3) fL Immature Gran % (Auto) (0.0-0.4) % Neut % (Auto) (45-73) % Lymph % (Auto) (20-40) % [place] % (Auto) (2-11) % Eos % (Auto) (0-4) % Baso % (Auto) (0-2) % Lymph # (Auto) (1.2-4.9) X10*3/uL [place] # (Auto) (0.1-1.2) X10*3/uL Eos # (Auto) (0.0-0.4) X10*3/uL Baso # (Auto) (0.0-0.2) X10*3/uL Abs Immat Gran (auto) (0.00-0.03) X10*3/uL Absolute Neuts (auto) (2.0-8.3) X10*3/uL Absolute Nucleated RBC (0.0-0.012) X10*3/uL Nucleated RBC % (auto) (0.0-0.2) /100WBC Hold Blue Top Sodium (135-145) mmol/L Potassium (3.3-5.1) mmol/L Chloride (96-108) mmol/L Carbon Dioxide (22-29) mmol/L Anion Gap (12-20) BUN (9-16) mg/dL Creatinine (0.5-1.4) mg/dL Estim Creat Clear Calc Estimated GFR Random Glucose (60-115) mg/dL Calcium (8.4-10.2) mg/dL Total Bilirubin (0.0-1.0) mg/dL AST (5-31) U/L ALT (0-31) U/L Alkaline Phosphatase (39-117) U/L Total Protein (6.5-8.0) g/dL Albumin (3.5-5.0) g/dL Urine Color YELLOW Urine Appearance CLEAR Urine pH 5.0 (5.0-8.0) Ur Specific [place] >= 1.030 H (1.005-1.025) Urine Protein NEG (NEG-TRACE) MG/DL Urine Glucose (UA) >=1000 H (NEG) MG/DL Urine Ketones NEG (NEG) MG/DL Urine Blood NEG (NEG) Urine Nitrite NEG (NEG) Ur Leukocyte Esterase NEG (NEG) Urine RBC 0-2 (0) /HPF Urine WBC 0-2 (0-4) /HPF Ur Squamous Epith Cells TRACE /LPF Urine Bacteria TRACE /LPF COVID-19 ([facility]) Negative (Negative) COVID-19 Clin Com See Note Imaging Data CT scan - abdomen: Radiologist's impression: LUNG BASES: The visualized lung bases are unremarkable. LIVER, GALLBLADDER, AND BILIARY TREE: The liver is normal in size, shape, and attenuation. No focal hepatic lesion or biliary ductal dilatation is present. The gallbladder is contracted with no evidence of radiopaque gallstones, gallbladder wall thickening, or obvious pericholecystic inflammatory changes. PANCREAS: Unremarkable. SPLEEN: Unremarkable. ADRENAL GLANDS: Unremarkable. KIDNEYS AND URETERS: The kidneys are normal in size, shape, and attenuation. No hydronephrosis or hydroureter. Left midpole 0.3 cm calculus is 10 cm from the posterior axillary line. Adjacent smaller calculus noted. 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 BLADDER: Unremarkable. GASTROINTESTINAL TRACT: The stomach is unremarkable. Normal caliber small bowel. There is no obstruction. Normal appendix. No colonic wall thickening or inflammatory change. No free air or free fluid. ABDOMINAL WALL: No significant hernia is appreciated. LYMPH NODES: Normal. VASCULAR: Unremarkable. PELVIC VISCERA: The uterus and adnexa are unremarkable. OSSEOUS STRUCTURES: No acute or suspicious osseous abnormality. CT/CT abdomen pelvis wo con IMPRESSION: No hydronephrosis. Small nonobstructing left midpole renal calculi. Discharge Plan Discharge Clinical Impression: Acute flank pain Patient Disposition: Home, Self-Care Instructions: Flank Pain (ED) Additional Instructions: Please follow-up with your primary care physician tomorrow. If you have any wo rsening or new symptoms, please return to the emergency room or call 911 Prescriptions: New tramadol 50 mg tablet 50 mg PO Q8H PRN (Reason: pain) Qty: 3 RF: 0 No Action quetiapine 25 mg tablet 1 tab PO BID PRN (Reason: anxiety) RF: 0 atorvastatin 10 mg tablet 1 tab PO DAILY RF: 0 polyvinyl alcohol [Artificial Tears (polyvin alc)] 1.4 % drops 1 drp ophthalmic (eye) TID RF: 0 ondansetron HCl 4 mg tablet 1 tab PO Q8H PRN (Reason: nausea) RF: 0 gabapentin 400 mg capsule 1 cap PO BEDTIME RF: 0 topiramate 25 mg tablet 1 tab PO BID RF: 0 clonidine HCl 0.2 mg tablet 1 tab PO BID PRN (Reason: panic attack) RF: 0 cyanocobalamin (vitamin B-12) 500 mcg tablet 1 tab PO DAILY RF: 0 ascorbic acid (vitamin C) 250 mg tablet 1 tab PO BID RF: 0 amlodipine 10 mg tablet 1 tab PO DAILY RF: 0 mirtazapine 30 mg tablet 1 tab PO BEDTIME RF: 0 mirtazapine 30 mg tablet 1 tab PO BEDTIME RF: 0 docusate sodium 100 mg capsule 1 - 2 cap PO BEDTIME PRN (Reason: constipation) RF: 0 gabapentin 100 mg capsule 1 cap PO TID PRN (Reason: anxiety) RF: 0 zolpidem 10 mg tablet 1 tab PO BEDTIME PRN (Reason: insomnia) RF: 0 albuterol sulfate [ProAir HFA] 90 mcg/actuation HFA aerosol inhaler 2 puff PO Q4-6H PRN (Reason: dyspnea) RF: 0 fluoxetine 20 mg capsule 3 cap PO QAM RF: 0 loratadine 10 mg tablet 1 tab PO DAILY RF: 0 loratadine 10 mg tablet 1 tab PO DAILY RF: 0 Referrals: Jim Wing MD [Physician] - 2 days PMF Past Medical History Medical History Anemia delivery delivered DVT (deep venous thrombosis) HTN (hypertension) Hypercholesteremia Kidney stones Surgical History Total knee replacement status Social History Social History Alcohol intake: current Alcohol intake frequency: 0-2 drinks per day Patient Tobacco Use Status: Current someday Tobacco user Use of substances other than those prescribed or required for medical reasons: No Advance Directives: No Advance Directives Information Provided: No Patient : No
[2020-11-26] MEDS: traMADoL HCL 50 MG TABLET PO (03:36)
[2020-11-26] MEDS: ondansetron HCL 4 MG/2 ML VIAL IVPUSH (03:36)
[2020-11-26 04:54] VITALS: BP 99/59; PULSE 69; RESP 16; O2SAT 98
--- NOTE | 2020-11-26 04:57 | PC.NURSE ---
pt ready for discharge. pt given juice and saltibes per her request.
== END 2020-11-26 07:06 | disposition home or self-care (01) ==
PROVIDERS: Emergency Provider Emergency Medicine; PCP Family Medicine
DX: R10.9 Unspecified abdominal pain (principal); Z79.899 Other long term (current) drug therapy; Z20.822 Contact with and (suspected) exposure to COVID-19
CPT/HCPCS: 36415; 74176; 80053; 81001; 85025; 87635; 96374; 99284; J2405

== ENCOUNTER 2020-12-01 03:33 | Emergency (ER) | payer MEDICAID, SELFPAY ==
[2020-12-01 03:34] VITALS: BP 159/92; BP 179/92; PULSE 20; PULSE 96; RESP 18; TEMP 37.1; O2SAT 95; O2SAT 98; BMI 26.0
--- NOTE | 2020-12-01 04:40 | PC.NURSE ---
requested records from leightonsonya vasques's [place] [facility] [place] [place]
[2020-12-01 05:02] VITALS: BP 160/60; PULSE 80; RESP 16; O2SAT 98
--- NOTE | 2020-12-01 05:05 | ED.ABDPAIN ---
HPI - Abdominal Pain General Chief Complaint: Abdominal Pain Stated Complaint: abdominal pain Time Seen by Provider: 12/01/20 04:12 Source: patient Mode of arrival: ambulatory Limitations: no limitations History of Present Illness HPI narrative: 55-year-old female came in for evaluation of abdominal pain. Patient is complaining of abdominal pain with nausea and vomiting, that started 3 weeks ago, patient claimed that she had endometrial biopsy done at [facility] last week and she is scheduled for gynecological surgery for hysterectomy next months, record was requested from [facility] there is no biopsy was done on this patient at [facility], patient has multiple ED visits to [facility] for pain related issue last visit was 5 days ago and patient had unremarkable CT and blood workup, reviewing the chart from 5 days ago patient did not mention the 3 weeks history of pelvic pain. Related Data Home Medications Medication Instructions Recorded Confirmed albuterol sulfate [ProAir HFA] 2 puff PO Q4-6H PRN 11/26/20 11/26/20 amlodipine 1 tab PO DAILY 11/26/20 11/26/20 ascorbic acid (vitamin C) 1 tab PO BID 11/26/20 11/26/20 atorvastatin 1 tab PO DAILY 11/26/20 11/26/20 clonidine HCl 1 tab PO BID PRN 11/26/20 11/26/20 cyanocobalamin (vitamin B-12) 1 tab PO DAILY 11/26/20 11/26/20 docusate sodium 1 - 2 cap PO BEDTIME PRN 11/26/20 11/26/20 fluoxetine 3 cap PO QAM 11/26/20 11/26/20 gabapentin 1 cap PO BEDTIME 11/26/20 11/26/20 gabapentin 1 cap PO TID PRN 11/26/20 11/26/20 loratadine 1 tab PO DAILY 11/26/20 11/26/20 loratadine 1 tab PO DAILY 11/26/20 11/26/20 mirtazapine 1 tab PO BEDTIME 11/26/20 11/26/20 mirtazapine 1 tab PO BEDTIME 11/26/20 11/26/20 ondansetron HCl 1 tab PO Q8H PRN 11/26/20 11/26/20 polyvinyl alcohol [Artificial 1 drp OPHTHALMIC (EYE) TID 11/26/20 11/26/20 Tears (polyvin alc)] quetiapine 1 tab PO BID PRN 11/26/20 11/26/20 topiramate 1 tab PO BID 11/26/20 11/26/20 zolpidem 1 tab PO BEDTIME PRN 11/26/20 11/26/20 Previous Rx's Medication Instructions Recorded tramadol 50 mg PO Q8H PRN #3 tab 11/26/20 Allergies Allergy/AdvReac Type Severity Reaction Status Date / Time aspirin [ASA] Allergy Intermediate RASH, Verified 12/01/20 03:34 nausea and vomiting ibuprofen [IBUPROFEN] Allergy Intermediate RASH Verified 12/01/20 03:34 nicotine Allergy Intermediate RASH FROM Verified 12/01/20 03:34 NICOTINE PATCH, nausea and vomiting ketorolac [From TORADOL] Allergy Mild RAPID HR Verified 12/01/20 03:34 AND HIVES Review of Systems Review of Systems All other systems are reviewed and are negative Constitutional: Reports as per HPI and Reports no additional constitutional complaints Eyes: Reports as per HPI and Reports no additional eye complaints Reports system reviewed and no additional complaints, except as documented Cardiovascular: Reports as per HPI and Reports no additional cardiovascular complaints Respiratory: Reports as per HPI and Reports no additional respiratory complaints Gastrointestinal: Reports as per HPI and Reports no additional gastrointestinal complaints Genitourinary: Reports no additional female genitourinary complaints Musculoskeletal: Reports no additional musculoskeletal complaints Skin/Breast: Reports system reviewed and no additional complaints, except as docu Psychiatric: Reports no additional psychiatric complaints Endocrine: Reports no additional endocrine complaints Hematologic/Lymphatic: Reports no additional hematologic/lymphatic complaints Allergic/Immunologic: Reports no additional allergic/immunologic complaints Reports system reviewed and no additional complaints, except as documented and Reports Abnormal speech present Physical Exam Vital Signs: Vital Signs: Last Vital Signs Temp 98.7 F 12/01/20 03:34 Pulse 80 12/01/20 05:02 Resp 16 12/01/20 05:02 BP 160/60 H 12/01/20 05:02 Pulse Ox 98 12/01/20 05:02 Body Mass Index 26.0 Vital signs have been reviewed as appeared to be correct. Blood pressure normal. Heart rate normal. Respiration rate normal. Temperature normal. Oxygen saturation normal. Appearance: Alert. Oriented X3. No acute distress. Head: Normal external exam. Normocephalic. Atraumatic. No Kong signs noted. No raccoon eyes noted Eyes: PERRLA. EOMI. Conjunctiva and sclera normal. Eyelids normal. ENT: TM's Normal. Pharynx normal. Uvula midline. Moist mucous membranes. No trismus noted. No drooling noted. No muffled voice noted. Neck: Normal inspection. Neck supple. FROM. No adenopathy. Thyroid Normal. No meningeal signs. No neck mass noted. CVS: Normal heart rate and rhythm. Heart sound normal. No murmurs noted. Pulses normal throughout. Respiratory: No respiratory distress. Painless inspiration. Breath sounds normal. No wheezes/rales/rhonchi noted. Chest nontender. No accessory muscle usage noted or decreased air movement noted. Abdomen: Soft and nontender. Bowel sounds normal in all 4 quadrants. No distention noted. No organomegaly noted. No visible injury noted. Back: No CVA tenderness. Full range of motion noted. Skin: Skin warm and dry. Normal skin color. Normal skin turgor. No rashes/lesions/lacerations noted. Extremities: No lower extremity edema. Extremities exhibit normal range of motion. Extremities nontender. Neuro: Oriented X 3. No motor deficit. No sensory deficit. Reflexes normal. Course Course Course Narrative: Assessment and plan. 55-year-old female with multiple ED visits for abdominal pain , patient also was asked for narcotic medication, patient also was have a negative workup in the ED, patient gave me a false information that she had gynecological biopsy done at [facility] when the record was requested from [facility] there was no such biopsy done on this patient. Patient was offered p.o. medication to control her symptoms but patient is looking for narcotic medication which I felt no valid indication for strong pain medication especially with a negative recent workup. Patient refused to take discharge instruction and walked out of the ED. Discharge Plan Discharge Clinical Impression: Abdominal pain, chronic, generalized Patient Disposition: Home, Self-Care Instructions: Chronic Pain (ED) Prescriptions: No Action quetiapine 25 mg tablet 1 tab PO BID PRN (Reason: anxiety) RF: 0 atorvastatin 10 mg tablet 1 tab PO DAILY RF: 0 polyvinyl alcohol [Artificial Tears (polyvin alc)] 1.4 % drops 1 drp ophthalmic (eye) TID RF: 0 ondansetron HCl 4 mg tablet 1 tab PO Q8H PRN (Reason: nausea) RF: 0 gabapentin 400 mg capsule 1 cap PO BEDTIME RF: 0 topiramate 25 mg tablet 1 tab PO BID RF: 0 clonidine HCl 0.2 mg tablet 1 tab PO BID PRN (Reason: panic attack) RF: 0 cyanocobalamin (vitamin B-12) 500 mcg tablet 1 tab PO DAILY RF: 0 ascorbic acid (vitamin C) 250 mg tablet 1 tab PO BID RF: 0 amlodipine 10 mg tablet 1 tab PO DAILY RF: 0 mirtazapine 30 mg tablet 1 tab PO BEDTIME RF: 0 mirtazapine 30 mg tablet 1 tab PO BEDTIME RF: 0 docusate sodium 100 mg capsule 1 - 2 cap PO BEDTIME PRN (Reason: constipation) RF: 0 gabapentin 100 mg capsule 1 cap PO TID PRN (Reason: anxiety) RF: 0 zolpidem 10 mg tablet 1 tab PO BEDTIME PRN (Reason: insomnia) RF: 0 albuterol sulfate [ProAir HFA] 90 mcg/actuation HFA aerosol inhaler 2 puff PO Q4-6H PRN (Reason: dyspnea) RF: 0 fluoxetine 20 mg capsule 3 cap PO QAM RF: 0 loratadine 10 mg tablet 1 tab PO DAILY RF: 0 loratadine 10 mg tablet 1 tab PO DAILY RF: 0 tramadol 50 mg tablet 50 mg PO Q8H PRN (Reason: pain) Qty: 3 RF: 0 Referrals: Physician,Unknown [Primary Care Provider] - 2 days PMFSH Past Medical History Medical History Anemia delivery delivered DVT (deep venous thrombosis) HTN (hypertension) Hypercholesteremia Kidney stones Surgical History Total knee replacement status Social History Social History Alcohol intake: current Alcohol intake frequency: 0-2 drinks per day Patient Tobacco Use Status: Current someday Tobacco user Advance Directives: No Advance Directives Information Provided: No
--- NOTE | 2020-12-01 05:07 | PC.NURSE ---
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 pt got dressed immediately following and walked out of room to waiting room. pt does not want to wait for discharge paperwork.
== END 2020-12-01 05:53 | disposition home or self-care (01) ==
PROVIDERS: Emergency Provider Emergency Medicine
DX: R10.84 Generalized abdominal pain (principal); Z79.899 Other long term (current) drug therapy
CPT/HCPCS: 99283

== ENCOUNTER → 2020-12-25 09:24 | Outpatient (BNVA) | payer MEDICAID, SELFPAY | PROVIDERS: PCP Family Medicine; Visit Provider Urology | DX: N20.0 Calculus of kidney (principal); N39.0 Urinary tract infection, site not specified | CPT/HCPCS: 99212 ==

== ENCOUNTER 2021-01-14 20:23 | Emergency (ER) | payer MEDICAID, SELFPAY ==
[2021-01-14 20:27] VITALS: BP 163/94; PULSE 98; RESP 20; TEMP 36.9; O2SAT 95; BMI 26.0
--- NOTE | 2021-01-14 20:48 | ED.FEMALEGU ---
HPI - Female Genitourinary General Chief complaint: Urogenital-Female Stated complaint: back pain ? kidney stones Time Seen by Provider: 01/14/21 20:48 Related Data Home Medications Medication Instructions Recorded Confirmed albuterol sulfate [ProAir HFA] 2 puff PO Q4-6H PRN 11/26/20 11/26/20 amlodipine 1 tab PO DAILY 11/26/20 11/26/20 ascorbic acid (vitamin C) 1 tab PO BID 11/26/20 11/26/20 atorvastatin 1 tab PO DAILY 11/26/20 11/26/20 clonidine HCl 1 tab PO BID PRN 11/26/20 11/26/20 cyanocobalamin (vitamin B-12) 1 tab PO DAILY 11/26/20 11/26/20 docusate sodium 1 - 2 cap PO BEDTIME PRN 11/26/20 11/26/20 fluoxetine 3 cap PO QAM 11/26/20 11/26/20 gabapentin 1 cap PO BEDTIME 11/26/20 11/26/20 gabapentin 1 cap PO TID PRN 11/26/20 11/26/20 loratadine 1 tab PO DAILY 11/26/20 11/26/20 loratadine 1 tab PO DAILY 11/26/20 11/26/20 mirtazapine 1 tab PO BEDTIME 11/26/20 11/26/20 mirtazapine 1 tab PO BEDTIME 11/26/20 11/26/20 ondansetron HCl 1 tab PO Q8H PRN 11/26/20 11/26/20 polyvinyl alcohol [Artificial 1 drp OPHTHALMIC (EYE) TID 11/26/20 11/26/20 Tears (polyvin alc)] quetiapine 1 tab PO BID PRN 11/26/20 11/26/20 topiramate 1 tab PO BID 11/26/20 11/26/20 zolpidem 1 tab PO BEDTIME PRN 11/26/20 11/26/20 Previous Rx's Medication Instructions Recorded tramadol 50 mg PO Q8H PRN #3 tab 11/26/20 Allergies Allergy/AdvReac Type Severity Reaction Status Date / Time aspirin [ASA] Allergy Intermediate RASH, Verified 01/14/21 20:32 nausea and vomiting ibuprofen [IBUPROFEN] Allergy Intermediate RASH Verified 01/14/21 20:32 nicotine Allergy Intermediate RASH FROM Verified 01/14/21 20:32 NICOTINE PATCH, nausea and vomiting ketorolac [From TORADOL] Allergy Mild RAPID HR Verified 01/14/21 20:32 AND HIVES PMF Past Medical History Medical History Anemia delivery delivered DVT (deep venous thrombosis) HTN (hypertension) Hypercholesteremia Kidney stones Surgical History Total knee replacement status Social History Social History Alcohol intake: current Alcohol intake frequency: 0-2 drinks per day Patient Tobacco Use Status: Current someday Tobacco user Advance Directives: No Advance Directives Information Provided: Yes Patient : No Physical Exam Vital Signs: Vital Signs: Last Vital Signs Temp 98.4 F 01/14/21 20:27 Pulse 98 01/14/21 20:27 Resp 20 01/14/21 20:27 BP 163/94 H 01/14/21 20:27 Pulse Ox 95 01/14/21 20:27 Body Mass Index 26.0 MDM - Female Genitourinary Lab Data Result diagrams: 01/14/21 21:50 01/14/21 21:50 Discharge Plan Discharge Prescriptions: No Action quetiapine 25 mg tablet 1 tab PO BID PRN (Reason: anxiety) RF: 0 atorvastatin 10 mg tablet 1 tab PO DAILY RF: 0 polyvinyl alcohol [Artificial Tears (polyvin alc)] 1.4 % drops 1 drp ophthalmic (eye) TID RF: 0 ondansetron HCl 4 mg tablet 1 tab PO Q8H PRN (Reason: nausea) RF: 0 gabapentin 400 mg capsule 1 cap PO BEDTIME RF: 0 topiramate 25 mg tablet 1 tab PO BID RF: 0 clonidine HCl 0.2 mg tablet 1 tab PO BID PRN (Reason: panic attack) RF: 0 cyanocobalamin (vitamin B-12) 500 mcg tablet 1 tab PO DAILY RF: 0 ascorbic acid (vitamin C) 250 mg tablet 1 tab PO BID RF: 0 amlodipine 10 mg tablet 1 tab PO DAILY RF: 0 mirtazapine 30 mg tablet 1 tab PO BEDTIME RF: 0 mirtazapine 30 mg tablet 1 tab PO BEDTIME RF: 0 docusate sodium 100 mg capsule 1 - 2 cap PO BEDTIME PRN (Reason: constipation) RF: 0 gabapentin 100 mg capsule 1 cap PO TID PRN (Reason: anxiety) RF: 0 zolpidem 10 mg tablet 1 tab PO BEDTIME PRN (Reason: insomnia) RF: 0 albuterol sulfate [ProAir HFA] 90 mcg/actuation HFA aerosol inhaler 2 puff PO Q4-6H PRN (Reason: dyspnea) RF: 0 fluoxetine 20 mg capsule 3 cap PO QAM RF: 0 loratadine 10 mg tablet 1 tab PO DAILY RF: 0 loratadine 10 mg tablet 1 tab PO DAILY RF: 0 tramadol 50 mg tablet 50 mg PO Q8H PRN (Reason: pain) Qty: 3 RF: 0
[2021-01-14 21:54] LABS: MANUAL DIFF FLAG NO
[2021-01-14 21:57] LABS: Basophils Percent Auto 0.3 % (0-2); Eosinophils Absolute Auto 0.1 X10*3/uL (0.0-0.4); Hematocrit 35.8 % (37-47); Hemoglobin 11.6 g/dl (12.0-16.0); Imm Gran Abs Auto 0.01 X10*3/uL (0.00-0.03); Imm Gran Pct Auto 0.2 % (0.0-0.4); Lymphocytes Percent Auto 34.1 % (20-40); Mean Corpuscular HGB Conc 32.4 g/dl (31.0-35.0); Mean Corpuscular Hemoglobin 27.3 pg (27.0-33.0); Mean Corpuscular Volume 84.2 fL (80-98); Mean Platelet Volume 9.1 fL (9.4-12.3); Monocytes Absolute Auto 0.4 X10*3/uL (0.1-1.2); Monocytes Percent Auto 6.6 % (2-11); Neutrophils Absolute Auto 3.4 X10*3/uL (2.0-8.3); Neutrophils Percent Auto 57.8 % (45-73); Platelet Count 286 X10*3/uL (160-400); Red Blood Count 4.25 X10*6/uL (4.20-5.50); Red Cell Distribution Width 13.9 % (11.0-16.0); White Blood Count 5.9 X10*3/uL (4.8-10.8)
[2021-01-14 22:21] LABS: Alanine Aminotransferase 12 U/L (0-31); Albumin Level 4.4 g/dL (3.5-5.0); Alkaline Phosphatase 103 U/L (39-117); Anion Gap 13 (12-20); Aspartate Amino Transferase 16 U/L (5-31); Bilirubin Total 0.4 mg/dL (0.0-1.0); Blood Urea Nitrogen 8 mg/dL (9-16); Calcium 9.1 mg/dL (8.4-10.2); Carbon Dioxide 24 mmol/L (22-29); Chloride 110 mmol/L (96-108); Creatinine Clr Calc Pharmacy 66.6; Estimated Glomerular Filt Rate > 60; Glucose Random 96 mg/dL (60-115); Lipase 45 U/L (8-78); Potassium 3.5 mmol/L (3.3-5.1); Sodium 143 mmol/L (135-145); Total Protein 7.4 g/dL (6.5-8.0)
--- NOTE | 2021-01-14 22:23 | ED_ITS ---
HPI - Female Genitourinary General Chief complaint: Urogenital-Female Stated complaint: back pain ? kidney stones Time Seen by Provider: 01/14/21 20:48 Source: patient Mode of arrival: EMS History of Present Illness HPI Narrative: 55-year-old female who denies any past medical history other than kidney stones presents with right flank pain this been ongoing for 4 days and states she has associated nausea, vomiting but denies any diarrhea and describes urinary frequency. Patient states she spoke with Urology today and was advised to come to the ER. She has also been evaluated at [facility] at the end of December. Related Data Home Medications Medication Instructions Recorded Confirmed albuterol sulfate [ProAir HFA] 2 puff PO Q4-6H PRN 11/26/20 11/26/20 amlodipine 1 tab PO DAILY 11/26/20 11/26/20 ascorbic acid (vitamin C) 1 tab PO BID 11/26/20 11/26/20 atorvastatin 1 tab PO DAILY 11/26/20 11/26/20 clonidine HCl 1 tab PO BID PRN 11/26/20 11/26/20 cyanocobalamin (vitamin B-12) 1 tab PO DAILY 11/26/20 11/26/20 docusate sodium 1 - 2 cap PO BEDTIME PRN 11/26/20 11/26/20 fluoxetine 3 cap PO QAM 11/26/20 11/26/20 gabapentin 1 cap PO BEDTIME 11/26/20 11/26/20 gabapentin 1 cap PO TID PRN 11/26/20 11/26/20 loratadine 1 tab PO DAILY 11/26/20 11/26/20 loratadine 1 tab PO DAILY 11/26/20 11/26/20 mirtazapine 1 tab PO BEDTIME 11/26/20 11/26/20 mirtazapine 1 tab PO BEDTIME 11/26/20 11/26/20 ondansetron HCl 1 tab PO Q8H PRN 11/26/20 11/26/20 polyvinyl alcohol [Artificial 1 drp OPHTHALMIC (EYE) TID 11/26/20 11/26/20 Tears (polyvin alc)] quetiapine 1 tab PO BID PRN 11/26/20 11/26/20 topiramate 1 tab PO BID 11/26/20 11/26/20 zolpidem 1 tab PO BEDTIME PRN 11/26/20 11/26/20 Previous Rx's Medication Instructions Recorded tramadol 50 mg PO Q8H PRN #3 tab 11/26/20 Allergies Allergy/AdvReac Type Severity Reaction Status Date / Time aspirin [ASA] Allergy Intermediate RASH, Verified 01/14/21 20:32 nausea and vomiting ibuprofen [IBUPROFEN] Allergy Intermediate RASH Verified 01/14/21 20:32 nicotine Allergy Intermediate RASH FROM Verified 01/14/21 20:32 NICOTINE PATCH, nausea and vomiting ketorolac [From TORADOL] Allergy Mild RAPID HR Verified 01/14/21 20:32 AND HIVES Review of Systems Review of Systems: Pertinent positives and negatives as stated in HPI 10 point review of systems is otherwise negative. [facility] Past Medical History Source: nursing notes reviewed Medical History Anemia delivery delivered DVT (deep venous thrombosis) HTN (hypertension) Hypercholesteremia Kidney stones Surgical History Total knee replacement status Social History Social History Alcohol intake: current Alcohol intake frequency: 0-2 drinks per day Patient Tobacco Use Status: Current someday Tobacco user Advance Directives: No Advance Directives Information Provided: Yes Patient : No Physical Exam Vital Signs: Vital Signs: Last Vital Signs Temp 98.4 F 01/14/21 20:27 Pulse 98 01/14/21 20:27 Resp 20 01/14/21 20:27 BP 163/94 H 01/14/21 20:27 Pulse Ox 95 01/14/21 20:27 Body Mass Index 26.0 VITAL SIGNS: Reviewed. GENERAL: Well developed, well nourished, tearful/crying. HEAD: Normocephalic/atraumatic EYES: PERRLA, EOMI OROPHARYNX: no oral lesions noted, posterior pharynx clear NECK: Supple, no adenopathy LUNGS: Normal breath sounds. No adventitious sounds or accessory muscle use. SpO2<95> CARDIOVASCULAR: Regular rate and rhythm without noted murmurs ABDOMEN: Soft, non-tender, non-distended with bowel sounds, right CVA tenderness SKIN: Inspection of the skin reveals no rashes NEUROLOGIC: Alert and oriented x 4. Strength and sensation to light touch were grossly intact x 4. Course Course Course Narrative: 55-year-old female presents with right-sided flank pain for 4 days, possible pyelonephritis versus renal colic. Patient became upset and eloped refusing to sign paperwork against medical advice and left the emergency room. Review of results and investigations negative for acute findings. MDM - Female Genitourinary Lab Data Result diagrams: 01/14/21 21:50 01/14/21 21:50 Labs: Lab Results 01/14/21 01/14/21 Range/Units 21:50 21:50 WBC 5.9 (4.8-10.8) X10*3/uL RBC 4.25 (4.20-5.50) X10*6/uL Hgb 11.6 L (12.0-16.0) g/dl Hct 35.8 L (37-47) % MCV 84.2 (80-98) fL MCH 27.3 (27.0-33.0) pg MCHC 32.4 (31.0-35.0) g/dl RDW 13.9 (11.0-16.0) % Plt Count 286 (160-400) X10*3/uL MPV 9.1 L (9.4-12.3) fL Immature Gran % (Auto) 0.2 (0.0-0.4) % Neut % (Auto) 57.8 (45-73) % Lymph % (Auto) 34.1 (20-40) % [place] % (Auto) 6.6 (2-11) % Eos % (Auto) 1.0 (0-4) % Baso % (Auto) 0.3 (0-2) % Lymph # (Auto) 2.0 (1.2-4.9) X10*3/uL [place] # (Auto) 0.4 (0.1-1.2) X10*3/uL Eos # (Auto) 0.1 (0.0-0.4) X10*3/uL Baso # (Auto) 0.0 (0.0-0.2) X10*3/uL Abs Immat Gran (auto) 0.01 (0.00-0.03) X10*3/uL Absolute Neuts (auto) 3.4 (2.0-8.3) X10*3/uL Absolute Nucleated RBC 0.000 (0.0-0.012) X10*3/uL Nucleated RBC % (auto) 0.0 (0.0-0.2) /100WBC Sodium 143 (135-145) mmol/L Potassium 3.5 (3.3-5.1) mmol/L Chloride 110 H (96-108) mmol/L Carbon Dioxide 24 (22-29) mmol/L Anion Gap 13 (12-20) BUN 8 L (9-16) mg/dL Creatinine 0.80 (0.5-1.4) mg/dL Estim Creat Clear Calc 66.6 Estimated GFR > 60 Random Glucose 96 (60-115) mg/dL Calcium 9.1 (8.4-10.2) mg/dL Total Bilirubin 0.4 (0.0-1.0) mg/dL AST 16 D (5-31) U/L ALT 12 (0-31) U/L Alkaline Phosphatase 103 (39-117) U/L Total Protein 7.4 (6.5-8.0) g/dL Albumin 4.4 (3.5-5.0) g/dL Lipase 45 (8-78) U/L Discharge Plan Discharge Clinical Impression: Flank pain Patient Disposition: Elopement Prescriptions: No Action quetiapine 25 mg tablet 1 tab PO BID PRN (Reason: anxiety) RF: 0 atorvastatin 10 mg tablet 1 tab PO DAILY RF: 0 polyvinyl alcohol [Artificial Tears (polyvin alc)] 1.4 % drops 1 drp ophthalmic (eye) TID RF: 0 ondansetron HCl 4 mg tablet 1 tab PO Q8H PRN (Reason: nausea) RF: 0 gabapentin 400 mg capsule 1 cap PO BEDTIME RF: 0 topiramate 25 mg tablet 1 tab PO BID RF: 0 clonidine HCl 0.2 mg tablet 1 tab PO BID PRN (Reason: panic attack) RF: 0 cyanocobalamin (vitamin B-12) 500 mcg tablet 1 tab PO DAILY RF: 0 ascorbic acid (vitamin C) 250 mg tablet 1 tab PO BID RF: 0 amlodipine 10 mg tablet 1 tab PO DAILY RF: 0 mirtazapine 30 mg tablet 1 tab PO BEDTIME RF: 0 mirtazapine 30 mg tablet 1 tab PO BEDTIME RF: 0 docusate sodium 100 mg capsule 1 - 2 cap PO BEDTIME PRN (Reason: constipation) RF: 0 gabapentin 100 mg capsule 1 cap PO TID PRN (Reason: anxiety) RF: 0 zolpidem 10 mg tablet 1 tab PO BEDTIME PRN (Reason: insomnia) RF: 0 albuterol sulfate [ProAir HFA] 90 mcg/actuation HFA aerosol inhaler 2 puff PO Q4-6H PRN (Reason: dyspnea) RF: 0 fluoxetine 20 mg capsule 3 cap PO QAM RF: 0 loratadine 10 mg tablet 1 tab PO DAILY RF: 0 loratadine 10 mg tablet 1 tab PO DAILY RF: 0 tramadol 50 mg tablet 50 mg PO Q8H PRN (Reason: pain) Qty: 3 RF: 0 Interventions: ED Discharge Assessment Last Done: 01/14/21 22:43 Discharge Date/Time: 01/14/21 22:44
--- NOTE | 2021-01-14 22:40 | PC.NURSE ---
This RN to bedside to medicate patient for pain. and Radiology also at bedside. Pt refused pain medication and demanded that this RN remove the patient's peripheral IV access. This RN attempted to explain the purpose of initiating pain treatment with Tylenol, but patient refuses medications. States Tylenol and Zofran?! are you fucking kidding me? for this pain?! no! I'll go to [facility]. Fuck you guys, I'm out of here. Give me the gauze or I'll rip out the IV myself! Pt refused to sign AMA paperwork. Eloped from ED refusing medical care. IV access removed from left AC prior to elopement. Provider () & drum puller (Kristopher Villafana) aware/witnessed interaction.
== END 2021-01-14 22:44 | disposition left against medical advice (07) ==
PROVIDERS: Emergency Provider Student in an Organized Health Care Education/Training Program
DX: R10.9 Unspecified abdominal pain (principal); I10 Essential (primary) hypertension; Z87.442 Personal history of urinary calculi
CPT/HCPCS: 36415; 80053; 83690; 85025; 99283

== ENCOUNTER 2021-01-29 02:56 | Emergency (ER) | payer MEDICAID, SELFPAY ==
--- NOTE | ~2021-01-29 | CT_ITS ---
EXAMINATION: CT ABDOMEN AND PELVIS WITHOUT CONTRAST CLINICAL INFORMATION: Flank pain. (Laterality not indicated) COMPARISON: 11/26/2020 TECHNIQUE: Multidetector volumetric imaging was performed from the superior aspect of the liver through the pubic symphysis. Sagittal and coronal reformatted images were obtained on the technologist's workstation. This CT examination was performed using dose optimization techniques as appropriate, variously including the following: *Automated exposure control *Adjustment of mA and/or kV according to patient size (this includes techniques or standardized protocols for targeted exams where dose is matched to indication/reason for exam; i.e. extremities or head) *Use of iterative reconstruction technique DLP: 594 mGy-cm FINDINGS: LUNG BASES: The visualized lung bases are unremarkable. LIVER, GALLBLADDER, AND BILIARY TREE: The liver is normal in size, shape, and attenuation. No focal hepatic lesion or biliary ductal dilatation is present. The gallbladder is unremarkable with no evidence of radiopaque gallstones, gallbladder wall thickening, or obvious pericholecystic inflammatory changes. PANCREAS: Unremarkable. SPLEEN: Unremarkable. ADRENAL GLANDS: Unremarkable. KIDNEYS AND URETERS: There are bilateral nonobstructive intrarenal calculi numbering at least 4 within the left kidney and one within the right kidney ranging in size from punctate to 3 mm. No ureteral calculi. No hydronephrosis. 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 BLADDER: Unremarkable. GASTROINTESTINAL TRACT: No intestinal obstruction or inflammation. Scattered left colonic diverticula. No evidence of diverticulitis. Normal appendix. ABDOMINAL WALL: No significant hernia is appreciated. LYMPH NODES: Normal. VASCULAR: Unremarkable. PELVIC VISCERA: Uterus and adnexa unremarkable. OSSEOUS STRUCTURES: Unremarkable. CT/CT abdomen pelvis wo con IMPRESSION: Bilateral nonobstructive intrarenal calculi. No ureteral calculi or hydronephrosis. Scattered left colonic diverticula without evidence of diverticulitis.
[2021-01-29 03:05] VITALS: BP 140/68; PULSE 87; RESP 20; TEMP 36.6; O2SAT 99; BMI 27.9
[2021-01-29 03:31] LABS: Glucose Urine UA NEG (NEG); Leukocyte Esterase Urine NEG (NEG); Nitrite Urine NEG (NEG); PH 6.5 (5.0-8.0); Specific Gravity - Urine <= 1.005 (1.005-1.025); UACC Culture Trigger NO; Urine Blood 3+ (NEG); Urine Ketones NEG (NEG); Urine Protein 2+ MG/DL (NEG-TRACE)
[2021-01-29 03:33] LABS: Appearance Urine CLEAR; Color Urine PINK
--- NOTE | 2021-01-29 03:57 | ED.ABDPAIN ---
HPI - Abdominal Pain General Chief Complaint: Abdominal Pain Stated Complaint: RIGHT SIDED FLANK PAIN Time Seen by Provider: 01/29/21 03:08 Source: patient Mode of arrival: EMS History of Present Illness HPI narrative: 55-year-old female with history of kidney stones presents with right flank pain for 3 days and associated nausea, vomiting, chills but denies any fevers. Patient also states she has had notable hematuria. Otherwise, she denies any shortness of breath, chest pain. Related Data Home Medications Medication Instructions Recorded Confirmed albuterol sulfate 90 mcg/actuation 2 puff PO Q4-6H PRN 11/26/20 11/26/20 aerosol inhaler (ProAir HFA) amlodipine 10 mg tablet 1 tab PO DAILY 11/26/20 11/26/20 ascorbic acid (vitamin C) 250 mg 1 tab PO BID 11/26/20 11/26/20 tablet atorvastatin 10 mg tablet 1 tab PO DAILY 11/26/20 11/26/20 clonidine HCl 0.2 mg tablet 1 tab PO BID PRN 11/26/20 11/26/20 cyanocobalamin (vitamin B-12) 500 1 tab PO DAILY 11/26/20 11/26/20 mcg tablet docusate sodium 100 mg capsule 1 - 2 cap PO BEDTIME PRN 11/26/20 11/26/20 fluoxetine 20 mg capsule 3 cap PO QAM 11/26/20 11/26/20 gabapentin 100 mg capsule 1 cap PO TID PRN 11/26/20 11/26/20 gabapentin 400 mg capsule 1 cap PO BEDTIME 11/26/20 11/26/20 loratadine 10 mg tablet 1 tab PO DAILY 11/26/20 11/26/20 loratadine 10 mg tablet 1 tab PO DAILY 11/26/20 11/26/20 mirtazapine 30 mg tablet 1 tab PO BEDTIME 11/26/20 11/26/20 mirtazapine 30 mg tablet 1 tab PO BEDTIME 11/26/20 11/26/20 ondansetron HCl 4 mg tablet 1 tab PO Q8H PRN 11/26/20 11/26/20 polyvinyl alcohol 1.4 % eye drops 1 drp OPHTHALMIC (EYE) TID 11/26/20 11/26/20 (Artificial Tears (polyvinyl alcohol)) quetiapine 25 mg tablet 1 tab PO BID PRN 11/26/20 11/26/20 topiramate 25 mg tablet 1 tab PO BID 11/26/20 11/26/20 zolpidem 10 mg tablet 1 tab PO BEDTIME PRN 11/26/20 11/26/20 Previous Rx's Medication Instructions Recorded tramadol 50 mg tablet 50 mg PO Q8H PRN #3 tab 11/26/20 Allergies Allergy/AdvReac Type Severity Reaction Status Date / Time aspirin [ASA] Allergy Intermediate RASH, Verified 01/14/21 20:32 nausea and vomiting ibuprofen [IBUPROFEN] Allergy Intermediate RASH Verified 01/14/21 20:32 nicotine Allergy Intermediate RASH FROM Verified 01/14/21 20:32 NICOTINE PATCH, nausea and vomiting ketorolac [From TORADOL] Allergy Mild RAPID HR Verified 01/14/21 20:32 AND HIVES Review of Systems Review of Systems Pertinent positives and negatives as stated in HPI 10 point review of systems is otherwise negative. Physical Exam Vital Signs: Vital Signs: Last Vital Signs Temp 97.9 F 01/29/21 03:05 Pulse 87 01/29/21 03:05 Resp 20 01/29/21 03:05 BP 140/68 H 01/29/21 03:05 Pulse Ox 99 01/29/21 03:05 Body Mass Index 27.9 VITAL SIGNS: Reviewed. GENERAL: Well developed, well nourished, in no acute distress. HEAD: Normocephalic/atraumatic EYES: PERRLA, EOMI EARS: Ext canals without abnormality OROPHARYNX: no oral lesions noted, posterior pharynx clear LUNGS: Normal breath sounds. No adventitious sounds or accessory muscle use. SpO2<99> CARDIOVASCULAR: Regular rate and rhythm without noted murmurs ABDOMEN: Soft, tenderness to palpation at right flank without rebound non-distended with bowel sounds, no CVA tenderness SKIN: Inspection of the skin reveals no rashes NEUROLOGIC: Alert and oriented x 4. Strength and sensation to light touch were grossly intact x 4. Course Course Course Narrative: 55-year-old female with history and clinical presentation suggestive of renal colic and less likely pyelonephritis or UTI. MDM - Abdominal Pain Lab Data Labs: Lab Results 01/29/21 Range/Units 03:23 Urine Color PINK Urine Appearance CLEAR Urine pH 6.5 (5.0-8.0) Ur Specific [place] <= 1.005 (1.005-1.025) Urine Protein 2+ H (NEG-TRACE) MG/DL Urine Glucose (UA) NEG (NEG) MG/DL Urine Ketones NEG (NEG) MG/DL Urine Blood 3+ H (NEG) Urine Nitrite NEG (NEG) Ur Leukocyte Esterase NEG (NEG) Urine RBC 1-4 (0) /HPF Urine WBC 0-2 (0-4) /HPF Ur Squamous Epith Cells 3+ /LPF Urine Bacteria TRACE /LPF Urine Mucus 1+ /LPF Urine Yeast TRACE /HPF Discharge Plan Discharge Clinical Impression: Flank pain Patient Disposition: Elopement Prescriptions: No Action quetiapine 25 mg tablet 1 tab PO BID PRN (Reason: anxiety) RF: 0 atorvastatin 10 mg tablet 1 tab PO DAILY RF: 0 polyvinyl alcohol [Artificial Tears (polyvin alc)] 1.4 % drops 1 drp ophthalmic (eye) TID RF: 0 ondansetron HCl 4 mg tablet 1 tab PO Q8H PRN (Reason: nausea) RF: 0 gabapentin 400 mg capsule 1 cap PO BEDTIME RF: 0 topiramate 25 mg tablet 1 tab PO BID RF: 0 clonidine HCl 0.2 mg tablet 1 tab PO BID PRN (Reason: panic attack) RF: 0 cyanocobalamin (vitamin B-12) 500 mcg tablet 1 tab PO DAILY RF: 0 ascorbic acid (vitamin C) 250 mg tablet 1 tab PO BID RF: 0 amlodipine 10 mg tablet 1 tab PO DAILY RF: 0 mirtazapine 30 mg tablet 1 tab PO BEDTIME RF: 0 mirtazapine 30 mg tablet 1 tab PO BEDTIME RF: 0 docusate sodium 100 mg capsule 1 - 2 cap PO BEDTIME PRN (Reason: constipation) RF: 0 gabapentin 100 mg capsule 1 cap PO TID PRN (Reason: anxiety) RF: 0 zolpidem 10 mg tablet 1 tab PO BEDTIME PRN (Reason: insomnia) RF: 0 albuterol sulfate [ProAir HFA] 90 mcg/actuation HFA aerosol inhaler 2 puff PO Q4-6H PRN (Reason: dyspnea) RF: 0 fluoxetine 20 mg capsule 3 cap PO QAM RF: 0 loratadine 10 mg tablet 1 tab PO DAILY RF: 0 loratadine 10 mg tablet 1 tab PO DAILY RF: 0 tramadol 50 mg tablet 50 mg PO Q8H PRN (Reason: pain) Qty: 3 RF: 0 PMFSH Past Medical History Source: nursing notes reviewed Medical History Anemia delivery delivered DVT (deep venous thrombosis) HTN (hypertension) Hypercholesteremia Kidney stones Surgical History Total knee replacement status Social History Social History Alcohol intake: current Alcohol intake frequency: 0-2 drinks per day Patient Tobacco Use Status: Current someday Tobacco user Advance Directives: No Patient : No
[2021-01-29 04:06] LABS: Bacteria Urine TRACE /LPF; Mucus Urine 1+ /LPF; Squamous Epithelial Cell Urine 3+ /LPF; WBC Urine 0-2 /HPF (0-4)
[2021-01-29] MEDS: Ondansetron ODT 4 MG TAB.RAPDIS TRANSLINGU (04:12)
--- NOTE | 2021-01-29 05:14 | PC.NURSE ---
Pt requesting pain meds to Dr Delgado directly. Dr Delgado discussed with pt a plan to monitor pt to ensure zofran has been effective and then pain needs can me addressed. Pt agreeable to Dr Delgado. Within 3 minutes' time, pt requesting pain meds from this RN. This RN explains to pt that no pain meds have been ordered, but this RN will advocate for pt. While this RN in another pt's room, pt eloped from dept.
== END 2021-01-29 05:10 | disposition left against medical advice (07) ==
PROVIDERS: Emergency Provider Student in an Organized Health Care Education/Training Program; PCP Family Medicine
DX: N20.0 Calculus of kidney (principal); Z87.442 Personal history of urinary calculi
CPT/HCPCS: 74176; 81001; 99283; 99284

== ENCOUNTER 2021-03-11 03:51 | Emergency (ER) | payer MEDICAID, SELFPAY ==
--- NOTE | ~2021-03-11 | CT_ITS ---
EXAMINATION: CT ABDOMEN AND PELVIS WITHOUT CONTRAST CLINICAL INFORMATION: Flank pain, bilateral COMPARISON: Multiple CT scans of the abdomen and pelvis the most recent of which was 01/29/2021. The patient has had 7 CT scans of the abdomen and pelvis since 12/13/2019 with many more previous TECHNIQUE: Multidetector volumetric imaging was performed from the superior aspect of the liver through the pubic symphysis. Sagittal and coronal reformatted images were obtained on the technologist's workstation. This CT examination was performed using dose optimization techniques as appropriate, variously including the following: *Automated exposure control *Adjustment of mA and/or kV according to patient size (this includes techniques or standardized protocols for targeted exams where dose is matched to indication/reason for exam; i.e. extremities or head) *Use of iterative reconstruction technique DLP: 559 mGy-cm FINDINGS: LUNG BASES: The visualized lung bases are unremarkable. LIVER, GALLBLADDER, AND BILIARY TREE: The liver is normal in size, shape, and attenuation. No focal hepatic lesion or biliary ductal dilatation is present. The gallbladder is unremarkable with no evidence of radiopaque gallstones, gallbladder wall thickening, or obvious pericholecystic inflammatory changes. PANCREAS: Unremarkable. SPLEEN: Unremarkable. ADRENAL GLANDS: Unremarkable. KIDNEYS AND URETERS: The kidneys are normal in size, shape, and attenuation. Again seen are bilateral punctate small calcifications, left greater than right without obstruction. No hydronephrosis, hydroureter, or ureteral calculi seen. No perinephric stranding. BLADDER: Unremarkable. GASTROINTESTINAL TRACT: Scattered colonic diverticula without diverticulitis. The small and large bowel are otherwise unremarkable. The appendix is unremarkable. ABDOMINAL WALL: No significant hernia is appreciated. LYMPH NODES: No retroperitoneal lymphadenopathy. VASCULAR: Unremarkable. PELVIC VISCERA: An anteverted uterus is present. Abnormal adnexal mass is not seen. No free fluid present. OSSEOUS STRUCTURES: Unremarkable. CT/CT abdomen pelvis wo con IMPRESSION: Unchanged bilateral small punctate intrarenal calculi. No evidence of obstruction. A cause for the patient's acute bilateral flank pain has once again not been found.
--- NOTE | 2021-03-11 04:07 | ECG_ITS ---
Test Reason : BACK PAIN Blood Pressure : / mmHG Vent. Rate : 074 BPM Atrial Rate : 074 BPM P-R Int : 166 ms QRS Dur : 078 ms QT Int : 434 ms P-R-T Axes : 039 008 069 degrees QTc Int : 481 ms Normal sinus rhythm Cannot rule out Inferior infarct , age undetermined ST & T wave abnormality, consider anterolateral ischemia Abnormal ECG When compared with ECG of 14-NOV-2020 19:48, Nonspecific T wave abnormality now evident in Inferior leads T wave inversion now evident in Anterolateral leads Referred By: Shanti Delgado Electronically Signed By:JEANMARIE RIVERS
[2021-03-11 04:13] VITALS: BP 125/66; BP 126/86; PULSE 75; PULSE 80; RESP 20; TEMP 36.5; O2SAT 97; O2SAT 98; BMI 24.5
[2021-03-11 04:31] LABS: MANUAL DIFF FLAG NO
--- NOTE | 2021-03-11 04:31 | ED_ITS ---
HPI - Back Pain/Injury General Chief Complaint: Back Pain/Injury Stated Complaint: LOW BACK PAIN,NO INJURY Time Seen by Provider: 03/11/21 04:07 Source: patient Mode of arrival: ambulatory History of Present Illness HPI Narrative: 55-year-old female with presentation for lower back pain since yesterday and unable to get pain relief and states that this is not been associated with any shortness of breath, fevers, chills, urinary pain/burn ing/frequency. Patient insists that she is having kidney stones. Related Data Home Medications Medication Instructions Recorded Confirmed albuterol sulfate 90 mcg/actuation 2 puff PO Q4-6H PRN 11/26/20 11/26/20 aerosol inhaler (ProAir HFA) amlodipine 10 mg tablet 1 tab PO DAILY 11/26/20 11/26/20 ascorbic acid (vitamin C) 250 mg 1 tab PO BID 11/26/20 11/26/20 tablet atorvastatin 10 mg tablet 1 tab PO DAILY 11/26/20 11/26/20 clonidine HCl 0.2 mg tablet 1 tab PO BID PRN 11/26/20 11/26/20 cyanocobalamin (vitamin B-12) 500 1 tab PO DAILY 11/26/20 11/26/20 mcg tablet docusate sodium 100 mg capsule 1 - 2 cap PO BEDTIME PRN 11/26/20 11/26/20 fluoxetine 20 mg capsule 3 cap PO QAM 11/26/20 11/26/20 gabapentin 100 mg capsule 1 cap PO TID PRN 11/26/20 11/26/20 gabapentin 400 mg capsule 1 cap PO BEDTIME 11/26/20 11/26/20 loratadine 10 mg tablet 1 tab PO DAILY 11/26/20 11/26/20 loratadine 10 mg tablet 1 tab PO DAILY 11/26/20 11/26/20 mirtazapine 30 mg tablet 1 tab PO BEDTIME 11/26/20 11/26/20 mirtazapine 30 mg tablet 1 tab PO BEDTIME 11/26/20 11/26/20 ondansetron HCl 4 mg tablet 1 tab PO Q8H PRN 11/26/20 11/26/20 polyvinyl alcohol 1.4 % eye drops 1 drp OPHTHALMIC (EYE) TID 11/26/20 11/26/20 (Artificial Tears (polyvinyl alcohol)) quetiapine 25 mg tablet 1 tab PO BID PRN 11/26/20 11/26/20 topiramate 25 mg tablet 1 tab PO BID 11/26/20 11/26/20 zolpidem 10 mg tablet 1 tab PO BEDTIME PRN 11/26/20 11/26/20 Previous Rx's Medication Instructions Recorded tramadol 50 mg tablet 50 mg PO Q8H PRN #3 tab 11/26/20 Allergies Allergy/AdvReac Type Severity Reaction Status Date / Time aspirin [ASA] Allergy Intermediate RASH, Verified 01/14/21 20:32 nausea and vomiting ibuprofen [IBUPROFEN] Allergy Intermediate RASH Verified 01/14/21 20:32 nicotine Allergy Intermediate RASH FROM Verified 01/14/21 20:32 NICOTINE PATCH, nausea and vomiting ketorolac [From TORADOL] Allergy Mild RAPID HR Verified 01/14/21 20:32 AND HIVES Review of Systems Review of Systems: Pertinent positives and negatives as stated in a HPI and 10 point review of systems is otherwise negative. [facility] Past Medical History Source: nursing notes reviewed Medical History Anemia delivery delivered DVT (deep venous thrombosis) HTN (hypertension) Hypercholesteremia Kidney stones Surgical History Total knee replacement status Social History Social History Alcohol intake: current Alcohol intake frequency: holidays/special occasions only Patient Tobacco Use Status: Current everyday Tobacco user Use of substances other than those prescribed or required for medical reasons: No Advance Directives: No Advance Directives Information Provided: Yes Physical Exam Vital Signs: Vital Signs: Last Vital Signs Temp 97.7 F 03/11/21 04:13 Pulse 75 03/11/21 04:13 Resp 16 03/11/21 06:49 BP 125/66 03/11/21 04:13 Pulse Ox 97 03/11/21 04:13 Body Mass Index 24.5 VITAL SIGNS: Reviewed. GENERAL: Well developed, well nourished, in no acute distress. HEAD: Normocephalic/atraumatic EYES: PERRLA, EOMI OROPHARYNX: no oral lesions noted, posterior pharynx clear LUNGS: Normal breath sounds. No adventitious sounds or accessory muscle use. SpO2<97> CARDIOVASCULAR: Regular rate and rhythm without noted murmurs, no JVD or lower extremity edema. ABDOMEN: Soft, non-tender, non-distended with bowel sounds no CVA tenderness NEUROLOGIC: Alert and oriented x 4. Strength and sensation to light touch were grossly intact x 4. Course Course Course Narrative: 55-year-old female with history and clinical presentation suggestive of possible acute on chronic back pain but will explore infectious etiologies and possible but less likely renal colic. Review of all investigations is only significant for the presence of hypokalemia which was repleted. All results and findings were discussed with patient bedside shoes otherwise discharged home in stable condition. MDM - Back Pain/Injury Lab Data Result diagrams: 03/11/21 04:26 03/11/21 04:26 Labs: Lab Results 03/11/21 03/11/21 03/11/21 Range/Units 04:26 04:26 04:36 WBC 5.9 (4.8-10.8) X10*3/uL RBC 4.16 L (4.20-5.50) X10*6/uL Hgb 11.1 L (12.0-16.0) g/dl Hct 34.7 L (37-47) % MCV 83.4 (80-98) fL MCH 26.7 L (27.0-33.0) pg MCHC 32.0 (31.0-35.0) g/dl RDW 13.9 (11.0-16.0) % Plt Count 258 (160-400) X10*3/uL MPV 9.0 L (9.4-12.3) fL Immature Gran % (Auto) 0.3 (0.0-0.4) % Neut % (Auto) 54.4 (45-73) % Lymph % (Auto) 36.2 (20-40) % [place] % (Auto) 7.7 (2-11) % Eos % (Auto) 1.2 (0-4) % Baso % (Auto) 0.2 (0-2) % Lymph # (Auto) 2.2 (1.2-4.9) X10*3/uL [place] # (Auto) 0.5 (0.1-1.2) X10*3/uL Eos # (Auto) 0.1 (0.0-0.4) X10*3/uL Baso # (Auto) 0.0 (0.0-0.2) X10*3/uL Abs Immat Gran (auto) 0.02 (0.00-0.03) X10*3/uL Absolute Neuts (auto) 3.2 (2.0-8.3) X10*3/uL Absolute Nucleated RBC 0.000 (0.0-0.012) X10*3/uL Nucleated RBC % (auto) 0.0 (0.0-0.2) /100WBC Sodium 140 (135-145) mmol/L Potassium 2.7 L D (3.3-5.1) mmol/L Chloride 107 (96-108) mmol/L Carbon Dioxide 23 (22-29) mmol/L Anion Gap 13 (12-20) BUN 9 (9-16) mg/dL Creatinine 0.78 (0.5-1.4) mg/dL Estim Creat Clear Calc 66.4 Estimated GFR > 60 Random Glucose 123 H (60-115) mg/dL Calcium 8.9 (8.4-10.2) mg/dL Total Bilirubin 0.5 (0.0-1.0) mg/dL AST 17 (5-31) U/L ALT 11 (0-31) U/L Alkaline Phosphatase 98 (39-117) U/L Total Protein 6.7 (6.5-8.0) g/dL Albumin 4.2 (3.5-5.0) g/dL Urine Color YELLOW Urine Appearance HAZY Urine pH 7.5 (5.0-8.0) Ur Specific [place] 1.010 (1.005-1.025) Urine Protein NEG (NEG-TRACE) MG/DL Urine Glucose (UA) NEG (NEG) MG/DL Urine Ketones NEG (NEG) MG/DL Urine Blood TRACE (NEG) Urine Nitrite NEG (NEG) Ur Leukocyte Esterase NEG (NEG) Urine RBC 1-4 (0) /HPF Urine WBC 1-4 (0-4) /HPF Ur Squamous Epith Cells 1+ /LPF Urine Bacteria 4+ /LPF ECG Data Attestation: I personally reviewed and interpreted this ECG as follows: Prior ECG tracings: available for review (11/14/2020 no acute changes on comparison) Interpretation: Normal sinus rhythm, HR-74, no STEMI, [place]/QRS/QTC are within normal limits. Discharge Plan Discharge Clinical Impression: Back pain Patient Disposition: Home, Self-Care Instructions: Back Pain (ED), Lower Back Exercises (ED) Additional Instructions: Recommend [id number] Tylenol/ibuprofen as needed for pain control. Consider lidocaine patch as well as the use of a heating pad. Follow-up with your primary care provider for re-evaluation. Return to the ER for acute worsening of your symptoms. Prescriptions: No Action quetiapine 25 mg tablet 1 tab PO BID PRN (Reason: anxiety) RF: 0 atorvastatin 10 mg tablet 1 tab PO DAILY RF: 0 polyvinyl alcohol [Artificial Tears (polyvin alc)] 1.4 % drops 1 drp ophthalmic (eye) TID RF: 0 ondansetron HCl 4 mg tablet 1 tab PO Q8H PRN (Reason: nausea) RF: 0 gabapentin 400 mg capsule 1 cap PO BEDTIME RF: 0 topiramate 25 mg tablet 1 tab PO BID RF: 0 clonidine HCl 0.2 mg tablet 1 tab PO BID PRN (Reason: panic attack) RF: 0 cyanocobalamin (vitamin B-12) 500 mcg tablet 1 tab PO DAILY RF: 0 ascorbic acid (vitamin C) 250 mg tablet 1 tab PO BID RF: 0 amlodipine 10 mg tablet 1 tab PO DAILY RF: 0 mirtazapine 30 mg tablet 1 tab PO BEDTIME RF: 0 mirtazapine 30 mg tablet 1 tab PO BEDTIME RF: 0 docusate sodium 100 mg capsule 1 - 2 cap PO BEDTIME PRN (Reason: constipation) RF: 0 gabapentin 100 mg capsule 1 cap PO TID PRN (Reason: anxiety) RF: 0 zolpidem 10 mg tablet 1 tab PO BEDTIME PRN (Reason: insomnia) RF: 0 albuterol sulfate [ProAir HFA] 90 mcg/actuation HFA aerosol inhaler 2 puff PO Q4-6H PRN (Reason: dyspnea) RF: 0 fluoxetine 20 mg capsule 3 cap PO QAM RF: 0 loratadine 10 mg tablet 1 tab PO DAILY RF: 0 loratadine 10 mg tablet 1 tab PO DAILY RF: 0 tramadol 50 mg tablet 50 mg PO Q8H PRN (Reason: pain) Qty: 3 RF: 0 Referrals: [facility] [Primary Care Provider] - 2 days Print Language: Luxembourger
[2021-03-11 04:32] LABS: Basophils Percent Auto 0.2 % (0-2); Eosinophils Absolute Auto 0.1 X10*3/uL (0.0-0.4); Eosinophils Percent Auto 1.2 % (0-4); Hematocrit 34.7 % (37-47); Hemoglobin 11.1 g/dl (12.0-16.0); Imm Gran Abs Auto 0.02 X10*3/uL (0.00-0.03); Imm Gran Pct Auto 0.3 % (0.0-0.4); Lymphocytes Absolute Auto 2.2 X10*3/uL (1.2-4.9); Lymphocytes Percent Auto 36.2 % (20-40); Mean Corpuscular Hemoglobin 26.7 pg (27.0-33.0); Mean Corpuscular Volume 83.4 fL (80-98); Monocytes Absolute Auto 0.5 X10*3/uL (0.1-1.2); Monocytes Percent Auto 7.7 % (2-11); Neutrophils Absolute Auto 3.2 X10*3/uL (2.0-8.3); Neutrophils Percent Auto 54.4 % (45-73); Platelet Count 258 X10*3/uL (160-400); Red Blood Count 4.16 X10*6/uL (4.20-5.50); Red Cell Distribution Width 13.9 % (11.0-16.0); White Blood Count 5.9 X10*3/uL (4.8-10.8)
[2021-03-11 04:44] LABS: Appearance Urine HAZY; Color Urine YELLOW; Glucose Urine UA NEG (NEG); Leukocyte Esterase Urine NEG (NEG); Nitrite Urine NEG (NEG); PH 7.5 (5.0-8.0); UACC Culture Trigger NO; Urine Blood TRACE (NEG); Urine Ketones NEG (NEG); Urine Protein NEG (NEG-TRACE)
[2021-03-11] MEDS: Acetaminophen 325 MG TABLET 975 MG PO (04:44)
[2021-03-11 04:51] LABS: Bacteria Urine 4+ /LPF; Squamous Epithelial Cell Urine 1+ /LPF
[2021-03-11 04:59] LABS: Alanine Aminotransferase 11 U/L (0-31); Albumin Level 4.2 g/dL (3.5-5.0); Alkaline Phosphatase 98 U/L (39-117); Anion Gap 13 (12-20); Aspartate Amino Transferase 17 U/L (5-31); Bilirubin Total 0.5 mg/dL (0.0-1.0); Blood Urea Nitrogen 9 mg/dL (9-16); Calcium 8.9 mg/dL (8.4-10.2); Carbon Dioxide 23 mmol/L (22-29); Chloride 107 mmol/L (96-108); Creatinine Clr Calc Pharmacy 66.4; Estimated Glomerular Filt Rate > 60; Glucose Random 123 mg/dL (60-115); Potassium 2.7 mmol/L (3.3-5.1); Sodium 140 mmol/L (135-145); Total Protein 6.7 g/dL (6.5-8.0)
[2021-03-11] MEDS: Ondansetron ODT 4 MG TAB.RAPDIS TRANSLINGU (05:02)
--- NOTE | 2021-03-11 05:25 | PC.NURSE ---
medicated pt for pain. pt still reporting back discomfort. provider is aware. No new orders
--- NOTE | 2021-03-11 05:49 | PC.NURSE ---
pt is a&O, no sob or chest pain. No sign of distress at this time . pt still reports pain. provider is aware and will continue to montor .
[2021-03-11 06:49] VITALS: RESP 16
--- NOTE | 2021-03-11 06:50 | PC.NURSE ---
pt is sleeping at this time, no sign of distress. Will continue to monitor
--- NOTE | 2021-03-11 07:30 | PC.NURSE ---
pt is sound asleep, resp even and unlabored.
[2021-03-11 08:26] VITALS: BP 118/75; PULSE 67; RESP 17; TEMP 36.5; O2SAT 98
[2021-03-11] MEDS: Potassium Chloride ER 20 MEQ TAB.ER.PRT 60 MEQ PO (08:37)
--- NOTE | 2021-03-11 08:48 | PC.NURSE ---
pt took 1 tab of potassium 20meq and refused the other 2 tabs (potassium 40meq)
== END 2021-03-11 08:53 | disposition home or self-care (01) ==
PROVIDERS: Emergency Provider Student in an Organized Health Care Education/Training Program
DX: M54.5 Low back pain (principal); I10 Essential (primary) hypertension; F17.210 Nicotine dependence, cigarettes, uncomplicated; Z86.718 Personal history of other venous thrombosis and embolism; Z87.442 Personal history of urinary calculi; Z87.440 Personal history of urinary (tract) infections
CPT/HCPCS: 36415; 74176; 80053; 81001; 85025; 93005; 99284; 99285

== ENCOUNTER 2021-03-13 01:23 | Emergency (ER) | payer MEDICAID, SELFPAY ==
--- NOTE | ~2021-03-13 | XR_ITS ---
EXAMINATION: XR CHEST CLINICAL INFORMATION: Chest pain COMPARISON: 09/21/2020 TECHNIQUE: Frontal view of the chest was obtained. FINDINGS: No significant abnormality is noted involving the heart, lungs, mediastinum, bony thorax or soft tissues. XR/XR chest 1V IMPRESSION: Unremarkable examination.
[2021-03-13 01:42] VITALS: BP 133/80; BP 144/98; PULSE 72; PULSE 91; RESP 11; TEMP 36.7; O2SAT 97; BMI 26.0
--- NOTE | 2021-03-13 02:25 | ED.CHESTPAIN ---
HPI - Chest Pain General Chief Complaint: Chest Pain Stated Complaint: ? KIDNEY STONE AND CP X'S 20 MINUTES Time Seen by Provider: 03/13/21 02:25 Source: patient Mode of arrival: EMS History of Present Illness HPI narrative: 55-year-old female who arrives from home via EMS with complaints of chest pain that she states was a 10/10 and radiated into the neck left upper arm as well as left lower leg and was associated with chills but denies any vomiting or diarrhea. As per EMS patient had called earlier, but then refused to come in. She is otherwise denying fever, shortness of breath. Related Data Home Medications Medication Instructions Recorded Confirmed albuterol sulfate 90 mcg/actuation 2 puff PO Q4-6H PRN 11/26/20 11/26/20 aerosol inhaler (ProAir HFA) amlodipine 10 mg tablet 1 tab PO DAILY 11/26/20 11/26/20 ascorbic acid (vitamin C) 250 mg 1 tab PO BID 11/26/20 11/26/20 tablet atorvastatin 10 mg tablet 1 tab PO DAILY 11/26/20 11/26/20 clonidine HCl 0.2 mg tablet 1 tab PO BID PRN 11/26/20 11/26/20 cyanocobalamin (vitamin B-12) 500 1 tab PO DAILY 11/26/20 11/26/20 mcg tablet docusate sodium 100 mg capsule 1 - 2 cap PO BEDTIME PRN 11/26/20 11/26/20 fluoxetine 20 mg capsule 3 cap PO QAM 11/26/20 11/26/20 gabapentin 100 mg capsule 1 cap PO TID PRN 11/26/20 11/26/20 gabapentin 400 mg capsule 1 cap PO BEDTIME 11/26/20 11/26/20 loratadine 10 mg tablet 1 tab PO DAILY 11/26/20 11/26/20 loratadine 10 mg tablet 1 tab PO DAILY 11/26/20 11/26/20 mirtazapine 30 mg tablet 1 tab PO BEDTIME 11/26/20 11/26/20 mirtazapine 30 mg tablet 1 tab PO BEDTIME 11/26/20 11/26/20 ondansetron HCl 4 mg tablet 1 tab PO Q8H PRN 11/26/20 11/26/20 polyvinyl alcohol 1.4 % eye drops 1 drp OPHTHALMIC (EYE) TID 11/26/20 11/26/20 (Artificial Tears (polyvinyl alcohol)) quetiapine 25 mg tablet 1 tab PO BID PRN 11/26/20 11/26/20 topiramate 25 mg tablet 1 tab PO BID 11/26/20 11/26/20 zolpidem 10 mg tablet 1 tab PO BEDTIME PRN 11/26/20 11/26/20 Previous Rx's Medication Instructions Recorded tramadol 50 mg tablet 50 mg PO Q8H PRN #3 tab 11/26/20 Allergies Allergy/AdvReac Type Severity Reaction Status Date / Time aspirin [ASA] Allergy Intermediate RASH, Verified 03/13/21 01:54 nausea and vomiting ibuprofen [IBUPROFEN] Allergy Intermediate RASH Verified 03/13/21 01:54 nicotine Allergy Intermediate RASH FROM Verified 03/13/21 01:54 NICOTINE PATCH, nausea and vomiting ketorolac [From TORADOL] Allergy Mild RAPID HR Verified 03/13/21 01:54 AND HIVES Review of Systems Review of Systems: Pertinent positives and negatives as stated in HPI 10 point review of systems is otherwise negative. PMFSH Past Medical History Source: nursing notes reviewed Medical History Anemia delivery delivered DVT (deep venous thrombosis) HTN (hypertension) Hypercholesteremia Kidney stones Surgical History Total knee replacement status Social History Social History Alcohol intake: current Alcohol intake frequency: holidays/special occasions only Patient Tobacco Use Status: Current everyday Tobacco user Advance Directives: No Advance Directives Information Provided: No Physical Exam Vital Signs: Vital Signs: Last Vital Signs Temp 97.8 F 03/13/21 06:00 Pulse 56 03/13/21 06:00 Resp 16 03/13/21 06:00 BP 125/62 03/13/21 06:00 Pulse Ox 98 03/13/21 06:00 Body Mass Index 26.0 VITAL SIGNS: Reviewed. GENERAL: Well developed, well nourished, in no acute distress. HEAD: Normocephalic/atraumatic, EYES: PERRLA, EOMI OROPHARYNX: no oral lesions noted, posterior pharynx clear LUNGS: Normal breath sounds. No adventitious sounds or accessory muscle use. SpO2<97> CARDIOVASCULAR: Regular rate and rhythm without noted murmurs, no JVD or lower extremity edema. ABDOMEN: Soft, non-tender, non-distended with bowel sounds. SKIN: Inspection of the skin reveals no rashes NEUROLOGIC: Alert and oriented x 4. Strength and sensation to light touch were grossly intact x 4. Course Course Course Narrative: 55-year-old female with history and clinical presentation suggestive of possible GERD but will rule out cardiopulmonary etiologies. Review of all investigations without acute findings other than low potassium which was repleted with 60 mEq of potassium chloride by mouth. Will repeat 2nd troponin although there are no significant EKG changes on review and initial high sensitivity troponin is undetectable. Second troponin undetectable and patient was asymptomatic on re-evaluation and discharged home in stable condition. MDM - Chest Pain Lab Data Result diagrams: 03/13/21 02:47 03/13/21 02:47 Labs: Lab Results 03/13/21 03/13/21 03/13/21 Range/Units 02:47 02:47 02:47 WBC 4.6 L (4.8-10.8) X10*3/uL RBC 4.10 L (4.20-5.50) X10*6/uL Hgb 11.1 L (12.0-16.0) g/dl Hct 34.0 L (37-47) % MCV 82.9 (80-98) fL MCH 27.1 (27.0-33.0) pg MCHC 32.6 (31.0-35.0) g/dl RDW 13.5 (11.0-16.0) % Plt Count 235 (160-400) X10*3/uL MPV 9.4 (9.4-12.3) fL Immature Gran % (Auto) 0.2 (0.0-0.4) % Neut % (Auto) 47.5 (45-73) % Lymph % (Auto) 42.1 H (20-40) % [place] % (Auto) 7.8 (2-11) % Eos % (Auto) 2.2 (0-4) % Baso % (Auto) 0.2 (0-2) % Lymph # (Auto) 2.0 (1.2-4.9) X10*3/uL [place] # (Auto) 0.4 (0.1-1.2) X10*3/uL Eos # (Auto) 0.1 (0.0-0.4) X10*3/uL Baso # (Auto) 0.0 (0.0-0.2) X10*3/uL Abs Immat Gran (auto) 0.01 (0.00-0.03) X10*3/uL Absolute Neuts (auto) 2.2 (2.0-8.3) X10*3/uL Absolute Nucleated RBC 0.000 (0.0-0.012) X10*3/uL Nucleated RBC % (auto) 0.0 (0.0-0.2) /100WBC Sodium 141 (135-145) mmol/L Potassium 3.1 L (3.3-5.1) mmol/L Chloride 109 H (96-108) mmol/L Carbon Dioxide 25 (22-29) mmol/L Anion Gap 10 L (12-20) BUN 8 L (9-16) mg/dL Creatinine 0.66 (0.5-1.4) mg/dL Estim Creat Clear Calc 80.7 Estimated GFR > 60 Random Glucose 91 (60-115) mg/dL Calcium 8.8 (8.4-10.2) mg/dL Total Bilirubin 0.3 (0.0-1.0) mg/dL AST 16 (5-31) U/L ALT 11 (0-31) U/L Alkaline Phosphatase 84 (39-117) U/L Troponin I High Sens < 3.5 (<3.5-17.0) ng/L Total Protein 6.3 L (6.5-8.0) g/dL Albumin 3.9 (3.5-5.0) g/dL 03/13/21 Range/Units 06:18 WBC (4.8-10.8) X10*3/uL RBC (4.20-5.50) X10*6/uL Hgb (12.0-16.0) g/dl Hct (37-47) % MCV (80-98) fL MCH (27.0-33.0) pg MCHC (31.0-35.0) g/dl RDW (11.0-16.0) % Plt Count (160-400) X10*3/uL MPV (9.4-12.3) fL Immature Gran % (Auto) (0.0-0.4) % Neut % (Auto) (45-73) % Lymph % (Auto) (20-40) % [place] % (Auto) (2-11) % Eos % (Auto) (0-4) % Baso % (Auto) (0-2) % Lymph # (Auto) (1.2-4.9) X10*3/uL [place] # (Auto) (0.1-1.2) X10*3/uL Eos # (Auto) (0.0-0.4) X10*3/uL Baso # (Auto) (0.0-0.2) X10*3/uL Abs Immat Gran (auto) (0.00-0.03) X10*3/uL Absolute Neuts (auto) (2.0-8.3) X10*3/uL Absolute Nucleated RBC (0.0-0.012) X10*3/uL Nucleated RBC % (auto) (0.0-0.2) /100WBC Sodium (135-145) mmol/L Potassium (3.3-5.1) mmol/L Chloride (96-108) mmol/L Carbon Dioxide (22-29) mmol/L Anion Gap (12-20) BUN (9-16) mg/dL Creatinine (0.5-1.4) mg/dL Estim Creat Clear Calc Estimated GFR Random Glucose (60-115) mg/dL Calcium (8.4-10.2) mg/dL Total Bilirubin (0.0-1.0) mg/dL AST (5-31) U/L ALT (0-31) U/L Alkaline Phosphatase (39-117) U/L Troponin I High Sens < 3.5 (<3.5-17.0) ng/L Total Protein (6.5-8.0) g/dL Albumin (3.5-5.0) g/dL ECG Data ECG #1: Attestation: I personally reviewed and interpreted this ECG as follows: Prior ECG tracings: available for review (03/11/2021 no acute changes on comparison) Interpretation: Normal sinus rhythm, HR -70, no STEMI, [place]/QRS/QTC are within normal limits. Discharge Plan Discharge Clinical Impression: Atypical chest pain, Gastroesophageal reflux disease Patient Disposition: Home, Self-Care Instructions: Diet for Stomach Ulcers and Gastritis (ED), Gastroesophageal Reflux Disease (ED) Additional Instructions: 1. Resume all home medications as prescribed. 2. Will start you on a prescription for omeprazole, an antacid 3. Follow-up with your primary care provider on Monday morning. Return to the ER for acute worsening of her symptoms. Prescriptions: No Action quetiapine 25 mg tablet 1 tab PO BID PRN (Reason: anxiety) RF: 0 atorvastatin 10 mg tablet 1 tab PO DAILY RF: 0 polyvinyl alcohol [Artificial Tears (polyvin alc)] 1.4 % drops 1 drp ophthalmic (eye) TID RF: 0 ondansetron HCl 4 mg tablet 1 tab PO Q8H PRN (Reason: nausea) RF: 0 gabapentin 400 mg capsule 1 cap PO BEDTIME RF: 0 topiramate 25 mg tablet 1 tab PO BID RF: 0 clonidine HCl 0.2 mg tablet 1 tab PO BID PRN (Reason: panic attack) RF: 0 cyanocobalamin (vitamin B-12) 500 mcg tablet 1 tab PO DAILY RF: 0 ascorbic acid (vitamin C) 250 mg tablet 1 tab PO BID RF: 0 amlodipine 10 mg tablet 1 tab PO DAILY RF: 0 mirtazapine 30 mg tablet 1 tab PO BEDTIME RF: 0 mirtazapine 30 mg tablet 1 tab PO BEDTIME RF: 0 docusate sodium 100 mg capsule 1 - 2 cap PO BEDTIME PRN (Reason: constipation) RF: 0 gabapentin 100 mg capsule 1 cap PO TID PRN (Reason: anxiety) RF: 0 zolpidem 10 mg tablet 1 tab PO BEDTIME PRN (Reason: insomnia) RF: 0 albuterol sulfate [ProAir HFA] 90 mcg/actuation HFA aerosol inhaler 2 puff PO Q4-6H PRN (Reason: dyspnea) RF: 0 fluoxetine 20 mg capsule 3 cap PO QAM RF: 0 loratadine 10 mg tablet 1 tab PO DAILY RF: 0 loratadine 10 mg tablet 1 tab PO DAILY RF: 0 tramadol 50 mg tablet 50 mg PO Q8H PRN (Reason: pain) Qty: 3 RF: 0 Referrals: [facility] [Primary Care Provider] - 2 days Print Language: Surinamese
--- NOTE | 2021-03-13 02:26 | ECG_ITS ---
Test Reason : CP Blood Pressure : / mmHG Vent. Rate : 070 BPM Atrial Rate : 070 BPM P-R Int : 156 ms QRS Dur : 080 ms QT Int : 422 ms P-R-T Axes : 047 023 021 degrees QTc Int : 455 ms Normal sinus rhythm Nonspecific ST and T wave abnormality Abnormal ECG When compared with ECG of 11-MAR-2021 04:21, No significant change was found Referred By: Shanti Delgado Electronically Signed By:JEANMARIE RIVERS
[2021-03-13 02:51] LABS: MANUAL DIFF FLAG NO
[2021-03-13 02:55] LABS: Basophils Percent Auto 0.2 % (0-2); Eosinophils Absolute Auto 0.1 X10*3/uL (0.0-0.4); Eosinophils Percent Auto 2.2 % (0-4); Hemoglobin 11.1 g/dl (12.0-16.0); Imm Gran Abs Auto 0.01 X10*3/uL (0.00-0.03); Imm Gran Pct Auto 0.2 % (0.0-0.4); Lymphocytes Percent Auto 42.1 % (20-40); Mean Corpuscular HGB Conc 32.6 g/dl (31.0-35.0); Mean Corpuscular Hemoglobin 27.1 pg (27.0-33.0); Mean Corpuscular Volume 82.9 fL (80-98); Mean Platelet Volume 9.4 fL (9.4-12.3); Monocytes Absolute Auto 0.4 X10*3/uL (0.1-1.2); Monocytes Percent Auto 7.8 % (2-11); Neutrophils Absolute Auto 2.2 X10*3/uL (2.0-8.3); Neutrophils Percent Auto 47.5 % (45-73); Platelet Count 235 X10*3/uL (160-400); Red Cell Distribution Width 13.5 % (11.0-16.0); White Blood Count 4.6 X10*3/uL (4.8-10.8)
[2021-03-13 03:12] LABS: Alanine Aminotransferase 11 U/L (0-31); Albumin Level 3.9 g/dL (3.5-5.0); Alkaline Phosphatase 84 U/L (39-117); Anion Gap 10 (12-20); Aspartate Amino Transferase 16 U/L (5-31); Bilirubin Total 0.3 mg/dL (0.0-1.0); Blood Urea Nitrogen 8 mg/dL (9-16); Calcium 8.8 mg/dL (8.4-10.2); Carbon Dioxide 25 mmol/L (22-29); Chloride 109 mmol/L (96-108); Creatinine Clr Calc Pharmacy 80.7; Estimated Glomerular Filt Rate > 60; Glucose Random 91 mg/dL (60-115); Potassium 3.1 mmol/L (3.3-5.1); Sodium 141 mmol/L (135-145); Total Protein 6.3 g/dL (6.5-8.0); Troponin-I High Sensitivity < 3.5 ng/L (<3.5-17.0)
[2021-03-13 04:31] VITALS: BP 107/55; PULSE 54; RESP 16; O2SAT 95
[2021-03-13] MEDS: Potassium Chloride ER 20 MEQ TAB.ER.PRT 60 MEQ PO (04:44)
--- NOTE | 2021-03-13 04:50 | PC.NURSE ---
Pt medicated per AUG with PO potassium and tolerating well but reports nausea. Dr Delgado made aware. Per Sandy, plan for ODT zofran.
[2021-03-13] MEDS: Ondansetron ODT 4 MG TAB.RAPDIS TRANSLINGU (04:56)
[2021-03-13 06:00] VITALS: BP 125/62; PULSE 56; RESP 16; TEMP 36.6; O2SAT 98
[2021-03-13 06:44] LABS: Troponin-I High Sensitivity < 3.5 ng/L (<3.5-17.0)
== END 2021-03-13 09:06 | disposition home or self-care (01) ==
PROVIDERS: Emergency Provider Student in an Organized Health Care Education/Training Program
DX: R07.89 Other chest pain (principal); K21.9 Gastro-esophageal reflux disease without esophagitis; I10 Essential (primary) hypertension; E78.5 Hyperlipidemia, unspecified; F17.210 Nicotine dependence, cigarettes, uncomplicated; Z86.718 Personal history of other venous thrombosis and embolism; Z87.442 Personal history of urinary calculi; Z87.440 Personal history of urinary (tract) infections; Z79.02 Long term (current) use of antithrombotics/antiplatelets; Z79.899 Other long term (current) drug therapy
CPT/HCPCS: 36415; 71045; 80053; 84484; 85025; 93005; 99283; 99284

== ENCOUNTER 2021-05-26 05:57 | Emergency (ER) | payer MEDICAID, SELFPAY ==
[2021-05-26 06:03] VITALS: BP 129/94; BP 143/85; PULSE 79; PULSE 85; RESP 18; TEMP 36.8; O2SAT 100; O2SAT 99; BMI 27.9
[2021-05-26 06:06] VITALS: BP 143/85; PULSE 66; RESP 18; TEMP 36.8; O2SAT 99
--- NOTE | 2021-05-26 06:34 | ED.FEMALEGU ---
HPI - Female Genitourinary General Chief complaint: Urogenital-Female Stated complaint: VAGINAL BLEEDING Time Seen by Provider: 05/26/21 06:34 Source: patient Mode of arrival: ambulatory Limitations: no limitations History of Present Illness HPI Narrative: Patient went to [facility] for vaginal bleeding and UTI. Patient is taking antibiotics and has some vaginal bleeding. She had a CT scan that was negative. Patient with N/V. 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 came here because the ED is too busy. Patient has been here multiple times for the same. Tearful during the interview MD elicited complaint: dysuria, UTI and vaginal bleeding Pertinent past history: recurrent UTIs Onset (ago): day(s) Consistency: constant Related Data Home Medications Medication Instructions Recorded Confirmed albuterol sulfate 90 mcg/actuation 2 puff PO Q4-6H PRN 11/26/20 11/26/20 aerosol inhaler (ProAir HFA) amlodipine 10 mg tablet 1 tab PO DAILY 11/26/20 11/26/20 ascorbic acid (vitamin C) 250 mg 1 tab PO BID 11/26/20 11/26/20 tablet atorvastatin 10 mg tablet 1 tab PO DAILY 11/26/20 11/26/20 clonidine HCl 0.2 mg tablet 1 tab PO BID PRN 11/26/20 11/26/20 cyanocobalamin (vitamin B-12) 500 1 tab PO DAILY 11/26/20 11/26/20 mcg tablet docusate sodium 100 mg capsule 1 - 2 cap PO BEDTIME PRN 11/26/20 11/26/20 fluoxetine 20 mg capsule 3 cap PO QAM 11/26/20 11/26/20 gabapentin 100 mg capsule 1 cap PO TID PRN 11/26/20 11/26/20 gabapentin 400 mg capsule 1 cap PO BEDTIME 11/26/20 11/26/20 loratadine 10 mg tablet 1 tab PO DAILY 11/26/20 11/26/20 loratadine 10 mg tablet 1 tab PO DAILY 11/26/20 11/26/20 mirtazapine 30 mg tablet 1 tab PO BEDTIME 11/26/20 11/26/20 mirtazapine 30 mg tablet 1 tab PO BEDTIME 11/26/20 11/26/20 ondansetron HCl 4 mg tablet 1 tab PO Q8H PRN 11/26/20 11/26/20 polyvinyl alcohol 1.4 % eye drops 1 drp OPHTHALMIC (EYE) TID 11/26/20 11/26/20 (Artificial Tears (polyvinyl alcohol)) quetiapine 25 mg tablet 1 tab PO BID PRN 11/26/20 11/26/20 topiramate 25 mg tablet 1 tab PO BID 11/26/20 11/26/20 zolpidem 10 mg tablet 1 tab PO BEDTIME PRN 11/26/20 11/26/20 Previous Rx's Medication Instructions Recorded tramadol 50 mg tablet 50 mg PO Q8H PRN #3 tab 11/26/20 nitrofurantoin 100 mg PO BID #14 cap 05/26/21 monohydrate/macrocrystals 100 mg capsule (Macrobid) phenazopyridine 100 mg tablet 100 mg PO TID PRN #6 tab 05/26/21 (Pyridium) Allergies Allergy/AdvReac Type Severity Reaction Status Date / Time aspirin [ASA] Allergy Intermediate RASH, Verified 03/13/21 01:54 nausea and vomiting ibuprofen [IBUPROFEN] Allergy Intermediate RASH Verified 03/13/21 01:54 nicotine Allergy Intermediate RASH FROM Verified 03/13/21 01:54 NICOTINE PATCH, nausea and vomiting ketorolac [From TORADOL] Allergy Mild RAPID HR Verified 03/13/21 01:54 AND HIVES Review of Systems Constitutional: Constitutional: Reports no additional constitutional complaints Eyes: Eyes: Reports no additional eye complaints ENT: Denies dizziness Cardiovascular: Cardiovascular: Reports no additional cardiovascular complaints Respiratory: Respiratory: Reports as per HPI Gastrointestinal: Gastrointestinal: Reports no additional gastrointestinal complaints Genitourinary: Genitourinary: Reports no additional female genitourinary complaints Musculoskeletal: Musculoskeletal: Reports no additional musculoskeletal complaints Integumentary/Breasts: Skin/Breast: Denies rash Neurologic: Reports system reviewed and no additional complaints, except as documented, Denies dizziness and Denies Sensory deficit (Neuro) Psychiatric: Psychiatric: Denies anxiety PMFSH Past Medical History Medical History Anemia delivery delivered DVT (deep venous thrombosis) HTN (hypertension) Hypercholesteremia Kidney stones Surgical History Total knee replacement status Social History Social History Alcohol intake: current Alcohol intake frequency: holidays/special occasions only Patient Tobacco Use Status: Current everyday Tobacco user Advance Directives: No Advance Directives Information Provided: Yes Physical Exam Vital Signs: Vital Signs: Last Vital Signs Temp 98.2 F 05/26/21 06:06 Pulse 66 05/26/21 08:22 Resp 14 05/26/21 08:22 BP 119/55 L 05/26/21 08:22 Pulse Ox 97 05/26/21 08:22 Body Mass Index 27.9 Const: General: healthy appearing Nutritional Appearance: average body habitus Orientation/consciousness: oriented to person and patient oriented x3 Limitations: no limitations HENMT: Head: Yes normal to inspection Ears: external ears normal General nose exam: Normal external nose present Mouth: Normal oral and palatal mucosa present and oropharynx normal Throat: Yes posterior oropharynx normal Eyes: General: appearance normal, both eyes and all related structures Neck: Other: supple Neck: Yes normal visual inspection Chest: Chest palpation & inspection: normal inspection of the chest Resp: Auscultation: clear to auscultation bilaterally Cardio: Jugular venous distension: no JVD Rate: regular rate Rhythm: regular rhythm Heart sounds: S1 normal heart sound present and S2 normal heart sound present GI: Inspection: Yes normal to inspection Palpation (GI): Soft to palpation, nontender and No hepatosplenomegaly present Auscultation: normal bowel sounds : Other: no vaginal bleeding on pelvic exam General: Yes no CVA tenderness Back/Spine/Pelvis: Back: no CVA tenderness Skin: General skin exam: no rashes or lesions noted Neuro: General: oriented to person and patient oriented x3 Cranial nerves: Yes CN's II-XII intact bilaterally Motor exam (neuro): 5/5 motor strength present throughout Sensory Exam: No Sensory deficit (Neuro) Extrem: General: Yes normal to inspection Psych: Appearance: grossly normal Course Reevaluation(s) Reevaluation #1: Reviewed [facility] records, 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 [facility] she has a long history of opiate abuse. will dc on macrobid, no pelvic bleeding today. Time: 09:04 MDM - Female Genitourinary Lab Data Result diagrams: 05/26/21 07:30 05/26/21 07:30 Labs: Lab Results 05/26/21 05/26/21 Range/Units 07:30 07:30 WBC 5.4 (4.8-10.8) X10*3/uL RBC 4.13 L (4.20-5.50) X10*6/uL Hgb 11.2 L (12.0-16.0) g/dl Hct 34.9 L (37.0-47.0) % MCV 84.5 (80.0-98.0) fL MCH 27.1 (27.0-33.0) pg MCHC 32.1 (31.0-35.0) g/dl RDW 14.9 (11.0-16.0) % Plt Count 243 (160-400) X10*3/uL MPV 9.5 (9.4-12.3) fL Immature Gran % (Auto) 0.4 (0.0-0.4) % Neut % (Auto) 60.3 (45-73) % Lymph % (Auto) 27.2 (20-40) % [place] % (Auto) 8.9 (2-11) % Eos % (Auto) 2.6 (0-4) % Baso % (Auto) 0.6 (0-2) % Lymph # (Auto) 1.5 (1.2-4.9) X10*3/uL [place] # (Auto) 0.5 (0.1-1.2) X10*3/uL Eos # (Auto) 0.1 (0.0-0.4) X10*3/uL Baso # (Auto) 0.0 (0.0-0.2) X10*3/uL Abs Immat Gran (auto) 0.02 (0.00-0.03) X10*3/uL Absolute Neuts (auto) 3.2 (2.0-8.3) x10*3/uL Absolute Nucleated RBC 0.000 (0.0-0.012) X10*3/uL Nucleated RBC % (auto) 0.0 (0.0-0.2) /100WBC Sodium 142 (135-145) mmol/L Potassium 3.2 L (3.3-5.1) mmol/L Chloride 111 H (96-108) mmol/L Carbon Dioxide 22 (22-29) mmol/L Anion Gap 12 (12-20) BUN 15 D (9-16) mg/dL Creatinine 0.71 (0.5-1.4) mg/dL Estim Creat Clear Calc 77.5 Estimated GFR > 60 Random Glucose 137 H (60-115) mg/dL Calcium 8.6 (8.4-10.2) mg/dL Discharge Plan Discharge Clinical Impression: Recurrent UTI Patient Disposition: Home, Self-Care Instructions: Urinary Tract Infection in Women (ED) Prescriptions: New nitrofurantoin monohyd/m-cryst [Macrobid] 100 mg capsule 100 mg PO BID Qty: 14 RF: 0 phenazopyridine [Pyridium] 100 mg tablet 100 mg PO TID PRN (Reason: pain) Qty: 6 RF: 0 No Action quetiapine 25 mg tablet 1 tab PO BID PRN (Reason: anxiety) RF: 0 atorvastatin 10 mg tablet 1 tab PO DAILY RF: 0 polyvinyl alcohol [Artificial Tears (polyvin alc)] 1.4 % drops 1 drp ophthalmic (eye) TID RF: 0 ondansetron HCl 4 mg tablet 1 tab PO Q8H PRN (Reason: nausea) RF: 0 gabapentin 400 mg capsule 1 cap PO BEDTIME RF: 0 topiramate 25 mg tablet 1 tab PO BID RF: 0 clonidine HCl 0.2 mg tablet 1 tab PO BID PRN (Reason: panic attack) RF: 0 cyanocobalamin (vitamin B-12) 500 mcg tablet 1 tab PO DAILY RF: 0 ascorbic acid (vitamin C) 250 mg tablet 1 tab PO BID RF: 0 amlodipine 10 mg tablet 1 tab PO DAILY RF: 0 mirtazapine 30 mg tablet 1 tab PO BEDTIME RF: 0 mirtazapine 30 mg tablet 1 tab PO BEDTIME RF: 0 docusate sodium 100 mg capsule 1 - 2 cap PO BEDTIME PRN (Reason: constipation) RF: 0 gabapentin 100 mg capsule 1 cap PO TID PRN (Reason: anxiety) RF: 0 zolpidem 10 mg tablet 1 tab PO BEDTIME PRN (Reason: insomnia) RF: 0 albuterol sulfate [ProAir HFA] 90 mcg/actuation HFA aerosol inhaler 2 puff PO Q4-6H PRN (Reason: dyspnea) RF: 0 fluoxetine 20 mg capsule 3 cap PO QAM RF: 0 loratadine 10 mg tablet 1 tab PO DAILY RF: 0 loratadine 10 mg tablet 1 tab PO DAILY RF: 0 tramadol 50 mg tablet 50 mg PO Q8H PRN (Reason: pain) Qty: 3 RF: 0 Referrals: Physician,Unknown J [Primary Care Provider] - 1 week
[2021-05-26 07:33] LABS: MANUAL DIFF FLAG NO
[2021-05-26 07:34] LABS: Basophils Percent Auto 0.6 % (0-2); Eosinophils Absolute Auto 0.1 X10*3/uL (0.0-0.4); Eosinophils Percent Auto 2.6 % (0-4); Hematocrit 34.9 % (37.0-47.0); Hemoglobin 11.2 g/dl (12.0-16.0); Imm Gran Abs Auto 0.02 X10*3/uL (0.00-0.03); Imm Gran Pct Auto 0.4 % (0.0-0.4); Lymphocytes Absolute Auto 1.5 X10*3/uL (1.2-4.9); Lymphocytes Percent Auto 27.2 % (20-40); Mean Corpuscular HGB Conc 32.1 g/dl (31.0-35.0); Mean Corpuscular Hemoglobin 27.1 pg (27.0-33.0); Mean Corpuscular Volume 84.5 fL (80.0-98.0); Mean Platelet Volume 9.5 fL (9.4-12.3); Monocytes Absolute Auto 0.5 X10*3/uL (0.1-1.2); Monocytes Percent Auto 8.9 % (2-11); Neutrophils Absolute Auto 3.2 x10*3/uL (2.0-8.3); Neutrophils Percent Auto 60.3 % (45-73); Platelet Count 243 X10*3/uL (160-400); Red Blood Count 4.13 X10*6/uL (4.20-5.50); Red Cell Distribution Width 14.9 % (11.0-16.0); White Blood Count 5.4 X10*3/uL (4.8-10.8)
[2021-05-26 07:56] LABS: Anion Gap 12 (12-20); Blood Urea Nitrogen 15 mg/dL (9-16); Calcium 8.6 mg/dL (8.4-10.2); Carbon Dioxide 22 mmol/L (22-29); Chloride 111 mmol/L (96-108); Creatinine Clr Calc Pharmacy 77.5; Estimated Glomerular Filt Rate > 60; Glucose Random 137 mg/dL (60-115); Potassium 3.2 mmol/L (3.3-5.1); Sodium 142 mmol/L (135-145)
--- NOTE | 2021-05-26 07:59 | PC.NURSE ---
Patient alert and oriented x 3. Patient c/o pain and nausea awaiting Md for pelvic exam. MD ordering something for nausea. Patient uncomfortable and aggravated. Will continue to monitor.
[2021-05-26 08:22] VITALS: BP 119/55; PULSE 66; RESP 14; O2SAT 97
[2021-05-26] MEDS: Phenazopyridine HCL 100 MG TABLET PO (09:29)
[2021-05-26] MEDS: Nitrofurantoin Monohyd/M-Cryst 100 MG CAPSULE PO (09:29)
== END 2021-05-26 09:37 | disposition home or self-care (01) ==
PROVIDERS: Emergency Provider Emergency Medicine
DX: N39.0 Urinary tract infection, site not specified (principal); F17.200 Nicotine dependence, unspecified, uncomplicated; Z79.899 Other long term (current) drug therapy; Z71.6 Tobacco abuse counseling
CPT/HCPCS: 36415; 80048; 85025; 99283; 99284

== ENCOUNTER 2021-07-15 12:09 | Emergency (ER) | payer MEDICAID, SELFPAY ==
--- NOTE | ~2021-07-15 | CT_ITS ---
EXAMINATION: CT ABDOMEN AND PELVIS WITHOUT CONTRAST CLINICAL INFORMATION: Bilateral flank pain, hematuria COMPARISON: CT abdomen from 03/11/2021 TECHNIQUE: Multidetector volumetric imaging was performed from the superior aspect of the liver through the pubic symphysis. Sagittal and coronal reformatted images were obtained on the technologist's workstation. This CT examination was performed using dose optimization techniques as appropriate, variously including the following: *Automated exposure control *Adjustment of mA and/or kV according to patient size (this includes techniques or standardized protocols for targeted exams where dose is matched to indication/reason for exam; i.e. extremities or head) *Use of iterative reconstruction technique DLP: 637 mGy-cm FINDINGS: LUNG BASES: Bibasilar atelectasis. Heart is not enlarged. No pericardial effusion. No large pleural effusion. LIVER, GALLBLADDER, AND BILIARY TREE: The liver is normal in size, shape, and attenuation. No focal hepatic lesion or biliary ductal dilatation is present. The gallbladder is unremarkable with no evidence of radiopaque gallstones, gallbladder wall thickening, or obvious pericholecystic inflammatory changes. PANCREAS: Unremarkable. SPLEEN: Unremarkable. ADRENAL GLANDS: Unremarkable. KIDNEYS AND URETERS: Multiple bilateral calculi are noted the largest appearing in the left renal interpolar region measuring 4 mm. No hydronephrosis identified. BLADDER: Suboptimally distended. GASTROINTESTINAL TRACT: Colonic diverticulosis without acute diverticulitis. Mild to moderate fecal loading of the ascending and proximal transverse colon. The small and large bowel are unremarkable. The appendix is unremarkable. ABDOMINAL WALL: No significant hernia is appreciated. LYMPH NODES: No enlarged lymph nodes per size criteria. VASCULAR: Abdominal aorta is nonaneurysmal. Atherosclerotic calcifications of the abdominal aorta and its branches. PELVIC VISCERA: Anteverted uterus. Air noted in the vaginal introitus, likely iatrogenic. OSSEOUS STRUCTURES: Multilevel degenerative changes of the thoracolumbar spine. No large lytic or blastic lesions are noted. CT/CT abdomen pelvis wo con IMPRESSION: 1. No acute process of the abdomen or pelvis identified. 2. Redemonstration of bilateral nephrolithiasis largest measuring up to 4 mm in the left renal interpolar region without hydronephrosis. 3. Colonic diverticulosis without acute diverticulitis.
[2021-07-15 12:21] VITALS: BP 122/72; PULSE 66; O2SAT 99
--- NOTE | 2021-07-15 12:23 | ED.ABDPAIN ---
HPI - Abdominal Pain General Chief Complaint: Back Pain/Injury Stated Complaint: MIGUELINA FLANK PAIN,TIAGO RED BLOOD IN URINE Time Seen by Provider: 07/15/21 12:23 Source: patient Mode of arrival: ambulatory Limitations: no limitations History of Present Illness HPI narrative: This is a 55-year-old female past medical history significant for kidney stones, DVT, HTN presenting to the emergency department with bilateral flank pain and hematuria times 7 days progressively worsening Patient is coming from [facility]. According to provider at [facility] patient initially was complaining of abdominal pain and right-sided flank pain is now turned into bilateral flank pain w/ associated hematuria that is severe in nature. Patient tells me its severe in nature and constant. She was recently seen at [facility] where she had a CT done, he tells me that there were bilateral kidney stones, unsure of the location or size. Emiliana Higginbotham did a UA that showed calcium oxalate crystals. No UTI. Patient complains of nausea, and vomiting. No fevers, chills, chest pain, shortness of breath, weakness, headache, dizziness. She does have a history of kidney stones. She has been given Pyridium, with little to no relief. To note patient is on a section 21 and she should be discharged back to [facility] MD elicited complaint: flank pain Pertinent past history: kidney stones Onset (ago): day(s) (7) Pain Consistency: constant Location: other (Bilateral flanks) Severity: moderate Quality: sharp Radiation: none Migration to: no migration Exacerbating factors: nothing Relieving factors: nothing Associated symptoms: nausea Related Data Home Medications Medication Instructions Recorded Confirmed albuterol sulfate 90 mcg/actuation 2 puff PO Q4-6H PRN 11/26/20 11/26/20 aerosol inhaler (ProAir HFA) amlodipine 10 mg tablet 1 tab PO DAILY 11/26/20 11/26/20 ascorbic acid (vitamin C) 250 mg 1 tab PO BID 11/26/20 11/26/20 tablet atorvastatin 10 mg tablet 1 tab PO DAILY 11/26/20 11/26/20 clonidine HCl 0.2 mg tablet 1 tab PO BID PRN 11/26/20 11/26/20 cyanocobalamin (vitamin B-12) 500 1 tab PO DAILY 11/26/20 11/26/20 mcg tablet docusate sodium 100 mg capsule 1 - 2 cap PO BEDTIME PRN 11/26/20 11/26/20 fluoxetine 20 mg capsule 3 cap PO QAM 11/26/20 11/26/20 gabapentin 100 mg capsule 1 cap PO TID PRN 11/26/20 11/26/20 gabapentin 400 mg capsule 1 cap PO BEDTIME 11/26/20 11/26/20 loratadine 10 mg tablet 1 tab PO DAILY 11/26/20 11/26/20 loratadine 10 mg tablet 1 tab PO DAILY 11/26/20 11/26/20 mirtazapine 30 mg tablet 1 tab PO BEDTIME 11/26/20 11/26/20 mirtazapine 30 mg tablet 1 tab PO BEDTIME 11/26/20 11/26/20 ondansetron HCl 4 mg tablet 1 tab PO Q8H PRN 11/26/20 11/26/20 polyvinyl alcohol 1.4 % eye drops 1 drp OPHTHALMIC (EYE) TID 11/26/20 11/26/20 (Artificial Tears (polyvinyl alcohol)) quetiapine 25 mg tablet 1 tab PO BID PRN 11/26/20 11/26/20 topiramate 25 mg tablet 1 tab PO BID 11/26/20 11/26/20 zolpidem 10 mg tablet 1 tab PO BEDTIME PRN 11/26/20 11/26/20 Previous Rx's Medication Instructions Recorded tramadol 50 mg tablet 50 mg PO Q8H PRN #3 tab 11/26/20 nitrofurantoin 100 mg PO BID #14 cap 05/26/21 monohydrate/macrocrystals 100 mg capsule (Macrobid) phenazopyridine 100 mg tablet 100 mg PO TID PRN #6 tab 05/26/21 (Pyridium) cefuroxime axetil 250 mg tablet 250 mg PO BID 7 Days #14 tab 07/15/21 morphine 15 mg immediate release 15 mg PO BID PRN #8 tab 07/15/21 tablet Allergies Allergy/AdvReac Type Severity Reaction Status Date / Time aspirin [ASA] Allergy Intermediate RASH, Verified 03/13/21 01:54 nausea and vomiting ibuprofen [IBUPROFEN] Allergy Intermediate RASH Verified 03/13/21 01:54 nicotine Allergy Intermediate RASH FROM Verified 03/13/21 01:54 NICOTINE PATCH, nausea and vomiting ketorolac [From TORADOL] Allergy Mild RAPID HR Verified 03/13/21 01:54 AND HIVES Review of Systems Review of Systems Constitutional : No Fever, No Chills ENT/Mouth : No sore throat Eyes: No Eye Pain, No Swelling, No Redness Cardiovascular : No Chest Pain, No SOB Respiratory : No Cough, No Sputum, No Wheezing Gastrointestinal : + Nausea, + Vomiting, No Diarrhea, + abdominal pain Genitourinary : No Dysuria, No urinary frequency, positive Hematuria, positive Flank Pain, positive hesitancy Musculoskeletal : No joint pain, No Myalgias Skin : No Skin Lesions, No rash Neuro : No Weakness, No Numbness, No Headache Psych : No Anxiety/Panic, No Depression Heme/Lymph: No Bruising, No Lymphadenopathy Endocrine : No Polyuria, No Polydipsia All other systems reviewed and are negative Yes all other systems are reviewed and are negative Physical Exam Vital Signs: Vital Signs: Last Vital Signs Temp 97.7 F 07/15/21 12:27 Pulse 69 07/15/21 12:27 Resp 18 07/15/21 12:27 BP 132/71 07/15/21 12:27 Pulse Ox 98 07/15/21 12:27 BMI result Body Mass Index 26.0 VSS Appearance: Alert.? Oriented X3.? No acute distress.? Head: Normocephalic, atraumatic, no step-offs or deformities Eyes: Pupils equal, round and reactive to light.? ENT: Pharynx normal.? Neck: Normal inspection.? Neck supple.? CVS: Normal heart rate and rhythm.? Pulses normal.? Respiratory: No respiratory distress.? Breath sounds normal.? Abdomen: Soft and + diffusely tender.? Skin: Skin warm and dry.? Normal skin color.? Normal skin turgor.? Extremities: No lower extremity edema.? No calf ttp. 5/5 strength to bilateral upper and lower extremities Back: No midline tenderness, no C-spine tenderness, full range of motion, + CVA tenderness bilaterally Neuro: Oriented X 3.? No motor deficit.? No sensory deficit. CN 2-12 intact. Course Reevaluation(s) Reevaluation #1: Urine positive for nitrates, and blood. CT shows a nonobstructing stone about 4 mm. Labs are pending. Pain improved after administration of morphine. Time: 14:22 Reevaluation #2: Lab significant for leukopenia which has been present the past, a normocytic anemia is noted, noted to be present in the past appears to be chronic in nature. No acute electrolyte abnormalities. Chloride is noted to be elevated however this appears to be chronic in nature this could be secondary to dehydration. Time: 16:43 Reevaluation #3: I will discharge patient home and treat her for UTI as she is symptomatic, there is nitrates and the urine. It is likely that patient passed a kidney stone likely why there is blood in her urine. There is a renal stone noted in the left interpolar region however unlikely that this is causing patient's symptoms. Unlikely that this is pyelo however I will treat with an antibiotic that covers Patient tells me she just went to the bathroom and saw a large stone, consistent with patients story. . At this time I feel comfortable with discharge back to [facility] with pain medicine and antibiotics Time: 17:12 MDM - Abdominal Pain MDM Narrative Medical decision making narrative: [id number] 55 yo f pmhx kidney stones, DVT, HTN presenting to ED form [facility] with bilateral flank pain and hematuria times 7 days progressively worsening. She had a CT scan done a few days ago at [facility] which showed bilateral kidney stones, unsure of location or size. [facility] has been giving pyridium little to no relief Patient is currently on a section 21, she is at [facility] for command auditory hallucinations, telling her to harm herself. Pe significant for bilateral CVA tenderness, and diffusely tender abdomen upon palpation. Plan- labs, dry ct, UA Will rule out obstructive uropathy, UTI. Will give fluids, and zofran Medical Records Attestation: I reviewed the patient's medical records. Lab Data Attestation: I reviewed the patient's lab results. Result diagrams: 07/15/21 15:56 07/15/21 15:56 Labs: Lab Results 07/15/21 07/15/21 07/15/21 Range/Units 13:15 13:15 13:17 WBC (4.8-10.8) X10*3/uL RBC (4.20-5.50) X10*6/uL Hgb (12.0-16.0) g/dl Hct (37.0-47.0) % MCV (80.0-98.0) fL MCH (27.0-33.0) pg MCHC (31.0-35.0) g/dl RDW (11.0-16.0) % Plt Count (160-400) X10*3/uL MPV (9.4-12.3) fL Immature Gran % (Auto) (0.0-0.4) % Neut % (Auto) (45-73) % Lymph % (Auto) (20-40) % [place] % (Auto) (2-11) % Eos % (Auto) (0-4) % Baso % (Auto) (0-2) % Lymph # (Auto) (1.2-4.9) X10*3/uL [place] # (Auto) (0.1-1.2) X10*3/uL Eos # (Auto) (0.0-0.4) X10*3/uL Baso # (Auto) (0.0-0.2) X10*3/uL Abs Immat Gran (auto) (0.00-0.03) X10*3/uL Absolute Neuts (auto) (2.0-8.3) x10*3/uL Absolute Nucleated RBC (0.0-0.012) X10*3/uL Nucleated RBC % (auto) (0.0-0.2) /100WBC Sodium (135-145) mmol/L Potassium (3.3-5.1) mmol/L Chloride (96-108) mmol/L Carbon Dioxide (22-29) mmol/L Anion Gap (12-20) BUN (9-16) mg/dL Creatinine (0.5-1.4) mg/dL Estim Creat Clear Calc Estimated GFR Random Glucose (60-115) mg/dL Calcium (8.4-10.2) mg/dL Magnesium (1.6-2.6) mg/dL Total Bilirubin (0.0-1.0) mg/dL AST (5-31) U/L ALT (0-31) U/L Alkaline Phosphatase (39-117) U/L Total Protein (6.5-8.0) g/dL Albumin (3.5-5.0) g/dL Lipase (8-78) U/L Urine Color YELLOW Urine Appearance HAZY Urine pH 6.0 (5.0-8.0) Ur Specific [place] 1.025 (1.005-1.025) Urine Protein TRACE (NEG-TRACE) MG/DL Urine Glucose (UA) NEG (NEG) MG/DL Urine Ketones NEG (NEG) MG/DL Urine Blood 3+ H (NEG) Urine Nitrite POS H (NEG) Ur Leukocyte Esterase NEG (NEG) Urine RBC 1-4 (0) /HPF Urine WBC 0 (0-4) /HPF Ur Squamous Epith Cells 1+ /LPF Urine Bacteria 1+ /LPF Urine Mucus TRACE /LPF Urine Test NEGATIVE (NEGATIVE) COVID-19 ([facility]) Negative (Negative) COVID-19 Clin Com See Note 07/15/21 07/15/21 Range/Units 15:56 15:56 WBC 4.2 L (4.8-10.8) X10*3/uL RBC 3.81 L (4.20-5.50) X10*6/uL Hgb 10.4 L (12.0-16.0) g/dl Hct 33.3 L (37.0-47.0) % MCV 87.4 (80.0-98.0) fL MCH 27.3 (27.0-33.0) pg MCHC 31.2 (31.0-35.0) g/dl RDW 14.2 (11.0-16.0) % Plt Count 216 (160-400) X10*3/uL MPV 10.0 (9.4-12.3) fL Immature Gran % (Auto) 0.2 (0.0-0.4) % Neut % (Auto) 46.3 (45-73) % Lymph % (Auto) 44.1 H (20-40) % [place] % (Auto) 7.5 (2-11) % Eos % (Auto) 1.4 (0-4) % Baso % (Auto) 0.5 (0-2) % Lymph # (Auto) 1.9 (1.2-4.9) X10*3/uL [place] # (Auto) 0.3 (0.1-1.2) X10*3/uL Eos # (Auto) 0.1 (0.0-0.4) X10*3/uL Baso # (Auto) 0.0 (0.0-0.2) X10*3/uL Abs Immat Gran (auto) 0.01 (0.00-0.03) X10*3/uL Absolute Neuts (auto) 2.0 (2.0-8.3) x10*3/uL Absolute Nucleated RBC 0.000 (0.0-0.012) X10*3/uL Nucleated RBC % (auto) 0.0 (0.0-0.2) /100WBC Sodium 144 (135-145) mmol/L Potassium 4.3 D (3.3-5.1) mmol/L Chloride 114 H (96-108) mmol/L Carbon Dioxide 26 (22-29) mmol/L Anion Gap 8 L (12-20) BUN 11 (9-16) mg/dL Creatinine 0.73 (0.5-1.4) mg/dL Estim Creat Clear Calc 72.9 Estimated GFR > 60 Random Glucose 98 (60-115) mg/dL Calcium 8.5 (8.4-10.2) mg/dL Magnesium 1.9 (1.6-2.6) mg/dL Total Bilirubin 0.2 (0.0-1.0) mg/dL AST 22 (5-31) U/L ALT 23 (0-31) U/L Alkaline Phosphatase 95 (39-117) U/L Total Protein 6.4 L (6.5-8.0) g/dL Albumin 3.8 (3.5-5.0) g/dL Lipase 24 (8-78) U/L Urine Color Urine Appearance Urine pH (5.0-8.0) Ur Specific [place] (1.005-1.025) Urine Protein (NEG-TRACE) MG/DL Urine Glucose (UA) (NEG) MG/DL Urine Ketones (NEG) MG/DL Urine Blood (NEG) Urine Nitrite (NEG) Ur Leukocyte Esterase (NEG) Urine RBC (0) /HPF Urine WBC (0-4) /HPF Ur Squamous Epith Cells /LPF Urine Bacteria /LPF Urine Mucus /LPF Urine Test (NEGATIVE) COVID-19 ([facility]) (Negative) COVID-19 Clin Com Imaging Data CT scan - abdomen: Attestation: I personally reviewed and interpreted this imaging study as follows: Radiologist's impression: CT/CT abdomen pelvis wo con IMPRESSION: 1.? No acute process of the abdomen or pelvis identified. 2.? Redemonstration of bilateral nephrolithiasis largest measuring up to 4 mm in the left renal interpolar region without hydronephrosis. 3.? Colonic diverticulosis without acute diverticulitis. Critical Care Time Critical Care Time Critical Care Time: No Discharge Plan Discharge Clinical Impression: Kidney stones, Urinary tract infection Patient Disposition: Home, Self-Care Instructions: Kidney Stones (ED) Additional Instructions: Take your medications as prescribed. If you were prescribed antibiotics today, it is important that you take your medication to their entirety, do not skip any doses, do not finish them early. Follow-up with your primary care provider this week. Follow-up with Urology. Return to the emergency department with new or worsening symptoms. In case of emergency call 911 Prescriptions: New morphine 15 mg tablet 15 mg PO BID PRN (Reason: pain) Qty: 8 RF: 0 cefuroxime axetil 250 mg tablet 250 mg PO BID 7 Days Qty: 14 RF: 0 No Action quetiapine 25 mg tablet 1 tab PO BID PRN (Reason: anxiety) RF: 0 atorvastatin 10 mg tablet 1 tab PO DAILY RF: 0 polyvinyl alcohol [Artificial Tears (polyvin alc)] 1.4 % drops 1 drp ophthalmic (eye) TID RF: 0 ondansetron HCl 4 mg tablet 1 tab PO Q8H PRN (Reason: nausea) RF: 0 gabapentin 400 mg capsule 1 cap PO BEDTIME RF: 0 topiramate 25 mg tablet 1 tab PO BID RF: 0 clonidine HCl 0.2 mg tablet 1 tab PO BID PRN (Reason: panic attack) RF: 0 cyanocobalamin (vitamin B-12) 500 mcg tablet 1 tab PO DAILY RF: 0 ascorbic acid (vitamin C) 250 mg tablet 1 tab PO BID RF: 0 amlodipine 10 mg tablet 1 tab PO DAILY RF: 0 mirtazapine 30 mg tablet 1 tab PO BEDTIME RF: 0 mirtazapine 30 mg tablet 1 tab PO BEDTIME RF: 0 docusate sodium 100 mg capsule 1 - 2 cap PO BEDTIME PRN (Reason: constipation) RF: 0 gabapentin 100 mg capsule 1 cap PO TID PRN (Reason: anxiety) RF: 0 zolpidem 10 mg tablet 1 tab PO BEDTIME PRN (Reason: insomnia) RF: 0 albuterol sulfate [ProAir HFA] 90 mcg/actuation HFA aerosol inhaler 2 puff PO Q4-6H PRN (Reason: dyspnea) RF: 0 fluoxetine 20 mg capsule 3 cap PO QAM RF: 0 loratadine 10 mg tablet 1 tab PO DAILY RF: 0 loratadine 10 mg tablet 1 tab PO DAILY RF: 0 tramadol 50 mg tablet 50 mg PO Q8H PRN (Reason: pain) Qty: 3 RF: 0 nitrofurantoin monohyd/m-cryst [Macrobid] 100 mg capsule 100 mg PO BID Qty: 14 RF: 0 phenazopyridine [Pyridium] 100 mg tablet 100 mg PO TID PRN (Reason: pain) Qty: 6 RF: 0 Referrals: Jim Wing MD [Physician] - 2 days Amber Quiroz MD [Primary Care Provider] - 2 days [facility] Past Medical History Attestation statement: The following information was validated with the patient. Source: old records reviewed and nursing notes reviewed Medical History Anemia delivery delivered DVT (deep venous thrombosis) HTN (hypertension) Hypercholesteremia Kidney stones Surgical History Total knee replacement status Social History Social History Alcohol intake: current Alcohol intake frequency: holidays/special occasions only Patient Tobacco Use Status: Current everyday Tobacco user Advance Directives: No Advance Directives Information Provided: No
[2021-07-15 12:27] VITALS: BP 132/71; PULSE 69; RESP 18; TEMP 36.5; O2SAT 98; BMI 26.0
[2021-07-15 13:26] LABS: Appearance Urine HAZY; Color Urine YELLOW; Glucose Urine UA NEG (NEG); Leukocyte Esterase Urine NEG (NEG); Nitrite Urine POS (NEG); Specific Gravity - Urine 1.025 (1.005-1.025); UACC Culture Trigger YES; Urine Blood 3+ (NEG); Urine Ketones NEG (NEG); Urine Protein TRACE MG/DL (NEG-TRACE)
[2021-07-15 13:29] LABS: UPreg QC Valid YES; Urine Pregnancy NEGATIVE (NEGATIVE)
[2021-07-15 13:42] LABS: Bacteria Urine 1+ /LPF; Mucus Urine TRACE /LPF; Squamous Epithelial Cell Urine 1+ /LPF; WBC Urine 0 /HPF (0-4)
[2021-07-15 13:49] LABS: COVID-19 Test Negative (Negative); IDNOW Serial# 9DD0AD1C
[2021-07-15] MEDS: ondansetron HCL 4 MG/2 ML VIAL IVPUSH (14:29)
[2021-07-15] MEDS: Morphine Sulfate 4 MG/ML CARTRIDGE IVPUSH (14:29)
[2021-07-15] MEDS: 0.9 % Sodium Chloride 1,000 ML 999 ML IV (14:30)
--- NOTE | 2021-07-15 15:02 | PC.NURSE ---
kevin ([place]) from [facility] called [facility] and was updated on pt.
[2021-07-15 16:04] LABS: MANUAL DIFF FLAG NO
[2021-07-15 16:14] LABS: Basophils Percent Auto 0.5 % (0-2); Eosinophils Absolute Auto 0.1 X10*3/uL (0.0-0.4); Eosinophils Percent Auto 1.4 % (0-4); Hematocrit 33.3 % (37.0-47.0); Hemoglobin 10.4 g/dl (12.0-16.0); Imm Gran Abs Auto 0.01 X10*3/uL (0.00-0.03); Imm Gran Pct Auto 0.2 % (0.0-0.4); Lymphocytes Absolute Auto 1.9 X10*3/uL (1.2-4.9); Lymphocytes Percent Auto 44.1 % (20-40); Mean Corpuscular HGB Conc 31.2 g/dl (31.0-35.0); Mean Corpuscular Hemoglobin 27.3 pg (27.0-33.0); Mean Corpuscular Volume 87.4 fL (80.0-98.0); Monocytes Absolute Auto 0.3 X10*3/uL (0.1-1.2); Monocytes Percent Auto 7.5 % (2-11); Neutrophils Percent Auto 46.3 % (45-73); Platelet Count 216 X10*3/uL (160-400); Red Blood Count 3.81 X10*6/uL (4.20-5.50); Red Cell Distribution Width 14.2 % (11.0-16.0); White Blood Count 4.2 X10*3/uL (4.8-10.8)
[2021-07-15 16:23] LABS: Alanine Aminotransferase 23 U/L (0-31); Albumin Level 3.8 g/dL (3.5-5.0); Alkaline Phosphatase 95 U/L (39-117); Anion Gap 8 (12-20); Aspartate Amino Transferase 22 U/L (5-31); Bilirubin Total 0.2 mg/dL (0.0-1.0); Blood Urea Nitrogen 11 mg/dL (9-16); Calcium 8.5 mg/dL (8.4-10.2); Carbon Dioxide 26 mmol/L (22-29); Chloride 114 mmol/L (96-108); Creatinine Clr Calc Pharmacy 72.9; Estimated Glomerular Filt Rate > 60; Glucose Random 98 mg/dL (60-115); Lipase 24 U/L (8-78); Magnesium 1.9 mg/dL (1.6-2.6); Potassium 4.3 mmol/L (3.3-5.1); Sodium 144 mmol/L (135-145); Total Protein 6.4 g/dL (6.5-8.0)
[2021-07-15] MEDS: Morphine Sulfate 2 MG/ML CARTRIDGE IVPUSH (16:39)
[2021-07-15 17:20] VITALS: BP 141/68; PULSE 62; RESP 18; TEMP 36.5; O2SAT 97
--- NOTE | 2021-07-15 17:25 | PC.NURSE ---
attempted x 4 to contact stacie regarding d/c. unsuccessful. careteam to attempt to make contact.
--- NOTE | 2021-07-15 17:50 | PC.NURSE ---
attempted 2x to get in contact with jeff. Unanswered. Care team aware.
== END 2021-07-16 01:50 | disposition home or self-care (01) ==
PROVIDERS: Physician Assistant; Emergency Provider Emergency Medicine; PCP Family Medicine
DX: N20.0 Calculus of kidney (principal); N39.0 Urinary tract infection, site not specified; Z20.822 Contact with and (suspected) exposure to COVID-19; I10 Essential (primary) hypertension; E78.5 Hyperlipidemia, unspecified; Z87.442 Personal history of urinary calculi; Z86.718 Personal history of other venous thrombosis and embolism; Z79.899 Other long term (current) drug therapy; Z87.440 Personal history of urinary (tract) infections; Z79.02 Long term (current) use of antithrombotics/antiplatelets
CPT/HCPCS: 74176; 80053; 81001; 81025; 83690; 83735; 85025; 87086; 87635; 96361; 96374; 96375; 96376; 99284; J2270; J2405

== ENCOUNTER 2021-07-21 12:37 | Emergency (ER) | payer MEDICAID, SELFPAY ==
--- NOTE | ~2021-07-21 | CT_ITS ---
EXAMINATION: CT ABDOMEN AND PELVIS WITHOUT CONTRAST CLINICAL INFORMATION: Left flank pain. Rule out stone. COMPARISON: Previous CT of the abdomen and pelvis most recent 07/20/2021 TECHNIQUE: Multidetector volumetric imaging was performed from the superior aspect of the liver through the pubic symphysis. Sagittal and coronal reformatted images were obtained on the technologist's workstation. This CT examination was performed using dose optimization techniques as appropriate, variously including the following: *Automated exposure control *Adjustment of mA and/or kV according to patient size (this includes techniques or standardized protocols for targeted exams where dose is matched to indication/reason for exam; i.e. extremities or head) *Use of iterative reconstruction technique DLP: 621 mGy-cm FINDINGS: LUNG BASES: The visualized lung bases are unremarkable. LIVER, GALLBLADDER, AND BILIARY TREE: The liver is normal in size, shape, and attenuation. No focal hepatic lesion or biliary ductal dilatation is present. The gallbladder is unremarkable with no evidence of radiopaque gallstones, gallbladder wall thickening, or obvious pericholecystic inflammatory changes. PANCREAS: Unremarkable. SPLEEN: Unremarkable. ADRENAL GLANDS: Unremarkable. 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 There are small bilateral nonobstructing renal stones. Largest stone measures 3 mm in the upper pole of the left kidney. No hydronephrosis, ureteral dilatation or ureteral stone is seen. BLADDER: Unremarkable. GASTROINTESTINAL TRACT: There is stool throughout the colon questionable for constipation. The small and large bowel are otherwise unremarkable. The appendix is unremarkable. ABDOMINAL WALL: There is an umbilical hernia containing fat. LYMPH NODES: Normal. VASCULAR: Unremarkable. PELVIC VISCERA: There is a tampon in place. Pelvic structures are otherwise unremarkable. OSSEOUS STRUCTURES: Unremarkable. CT/CT abdomen pelvis wo con IMPRESSION: Small bilateral nonobstructing renal stones. 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 Stool throughout the colon questionable for constipation. Fleischner guidelines were followed.
--- NOTE | 2021-07-21 12:42 | ED_ITS ---
HPI - Abdominal Pain General Chief Complaint: Urogenital-Female Stated Complaint: left flank pain (miravista expect) Time Seen by Provider: 07/21/21 12:42 Source: patient Mode of arrival: ambulatory Limitations: no limitations History of Present Illness HPI narrative: This is a 55-year-old female past medical history significant for nephrolithiasis, DVT, hypertension presenting to the emergency department with severe 10/10 left-sided flank pain and hematuria times 14 days intermittently. Patient is coming from [facility]. According to the provider from the [facility] patient has been in excruciating pain over the past few days, she has also been complaining about blood in her urine. She tells me that the pain is constant in nature and severe, she describes it as stabbing pain. She was seen here on July 15, 2021 where a CTscan was obtained, and showed a 4 mm stone that was nonobstructing. Patient also complains of nausea. Patient tells me that she is very uncomfortable. She denies fevers, chills, chest pain, shortness of breath, weakness, headache, dizziness. To note, patient is at [facility] for command auditory hallucinations and acute psychosis. She is here on a section 21 MD elicited complaint: flank pain (L) Pertinent past history: kidney stones Onset (ago): day(s) (14) Pain Consistency: constant Severity: severe Quality: sharp Radiation: none Migration to: no migration Exacerbating factors: nothing Relieving factors: nothing Associated symptoms: nausea Treatments prior to arrival: other ( patient has been taking p.o. morphine for pain.) Related Data Home Medications Medication Instructions Recorded Confirmed albuterol sulfate 90 2 puff PO Q4-6H PRN 11/26/20 11/26/20 mcg/actuation aerosol inhaler (ProAir HFA) amlodipine 10 mg tablet 1 tab PO DAILY 11/26/20 11/26/20 ascorbic acid (vitamin C) 250 1 tab PO BID 11/26/20 11/26/20 mg tablet atorvastatin 10 mg tablet 1 tab PO DAILY 11/26/20 11/26/20 clonidine HCl 0.2 mg tablet 1 tab PO BID PRN 11/26/20 11/26/20 cyanocobalamin (vitamin B-12) 1 tab PO DAILY 05/27/21 05/27/21 500 mcg tablet docusate sodium 100 mg 1 - 2 cap PO BEDTIME PRN 11/26/20 11/26/20 capsule fluoxetine 20 mg capsule 3 cap PO QAM 11/26/20 11/26/20 gabapentin 100 mg capsule 1 cap PO TID PRN 11/26/20 11/26/20 gabapentin 400 mg capsule 1 cap PO BEDTIME 11/26/20 11/26/20 loratadine 10 mg tablet 1 tab PO DAILY 11/26/20 11/26/20 loratadine 10 mg tablet 1 tab PO DAILY 11/26/20 11/26/20 mirtazapine 30 mg tablet 1 tab PO BEDTIME 11/26/20 11/26/20 mirtazapine 30 mg tablet 1 tab PO BEDTIME 11/26/20 11/26/20 ondansetron HCl 4 mg tablet 1 tab PO Q8H PRN 11/26/20 11/26/20 polyvinyl alcohol 1.4 % eye 1 drp OPHTHALMIC (EYE) TID 11/26/20 11/26/20 drops (Artificial Tears (polyvinyl alcohol)) quetiapine 25 mg tablet 1 tab PO BID PRN 11/26/20 11/26/20 topiramate 25 mg tablet 1 tab PO BID 11/26/20 11/26/20 zolpidem 10 mg tablet 1 tab PO BEDTIME PRN 11/26/20 11/26/20 Previous Rx's Medication Instructions Recorded tramadol 50 mg tablet 50 mg PO Q8H PRN #3 tab 11/26/20 nitrofurantoin 100 mg PO BID #14 cap 05/26/21 monohydrate/macrocrystals 100 mg capsule (Macrobid) phenazopyridine 100 mg tablet 100 mg PO TID PRN #6 tab 05/26/21 (Pyridium) cefuroxime axetil 250 mg tablet 250 mg PO BID 7 Days #14 tab 07/15/21 morphine 15 mg immediate release 15 mg PO BID PRN #8 tab 07/15/21 tablet docusate sodium 100 mg capsule 100 mg PO BID #20 cap 07/21/21 (Colace) sennosides 8.6 mg tablet (senna) 8.6 mg PO BEDTIME #14 tab 07/21/21 Allergies Allergy/AdvReac Type Severity Reaction Status Date / Time aspirin [ASA] Allergy Intermediate RASH, Verified 03/13/21 01:54 nausea and vomiting ibuprofen Allergy Intermediate RASH Verified 03/13/21 01:54 [IBUPROFEN] nicotine Allergy Intermediate RASH FROM Verified 03/13/21 01:54 NICOTINE PATCH, nausea and vomiting ketorolac [From Allergy Mild RAPID HR Verified 03/13/21 01:54 TORADOL] AND HIVES Review of Systems Review of Systems Constitutional : No Fever, No Chills ENT/Mouth : No sore throat Eyes: No Eye Pain, No Swelling, No Redness Cardiovascular : No Chest Pain, No SOB Respiratory : No Cough, No Sputum, No Wheezing Gastrointestinal : positive Nausea, No Vomiting, No Diarrhea, no abdominal pain Genitourinary : positive Dysuria, positive urinary frequency, positive Hematuria, positive Flank Pain, positive hesitancy Musculoskeletal : No joint pain, No Myalgias Skin : No Skin Lesions, No rash Neuro : No Weakness, No Numbness, No Headache All other systems reviewed and are negative Yes all other systems are reviewed and are negative Physical Exam Verdana 4l Vital Signs: Verdana 4d Verdana 4d Vital Signs: Verdana 4d Verdana 4Bd Last Vital Signs Verdana 4d Harness Repairer New 4d Harness Repairer New 4d Temp 97.9 F 07/21/21 13:48 Harness Repairer New 4d Pulse 83 07/21/21 15:31 Harness Repairer NewNew 4d Resp 16 07/21/21 15:31 BP 130/66 07/21/21 15:31 Pulse Ox 97 07/21/21 15:31 BMI result Body Mass Index 29.2 VSS Appearance: Alert.? Oriented X3.? No acute distress.? Head: Normocephalic, atraumatic, no step-offs or deformities Eyes: Pupils equal, round and reactive to light.? ENT: Pharynx normal.? Neck: Normal inspection.? Neck supple.? CVS: Normal heart rate and rhythm.? Pulses normal.? Respiratory: No respiratory distress.? Breath sounds normal.? Abdomen: Soft and nontender.? Skin: Skin warm and dry.? Normal skin color.? Normal skin turgor.? Extremities: No lower extremity edema.? No calf ttp. 5/5 strength to bilateral upper and lower extremities Back: No midline tenderness, no C-spine tenderness, full range of motion, no CVA tenderness bilaterally Neuro: Oriented X 3.? No motor deficit.? No sensory deficit. Course Reevaluation(s) Reevaluation #1: I discussed this case with Dr. Ham who reviewed patient's labs, and imaging. He feels as though patient is safe for discharge back to [facility]. She could be passing stones which are causing her to have hematuria however they should not be causing her symptoms as they are nonobstructing and due to their location. I will reach out to urology as well. Time: 16:00 Reevaluation #2: Dr. Guerrero agrees that the left flank pain is not secondary to the stones. Likely patient is experiencing remnant cystitis At this time patient will be discharged back to [facility]. Time: 16:08 MDM - Abdominal Pain MDM Narrative Medical decision making narrative: 1249 55-year-old female presenting to the emergency department with left-sided flank pain and hematuria. She has presented to multiple emergency department for the same complaint and has had multiple negative workups. Last time she was here she had a CT of the abdomen and pelvis which showed a nonobstructing Kidney stone. She was discharged on p.o. morphine and treated for a UTI. Patient is out of pain medicine and tells me she is having pain again. She was brought in by ambulance from [facility] where she is admitted for command auditory hallucinations and acute psychosis. Patient tells me shes sure blood is in urine and not vaginal bleeding. Physical exam benign Plan at this time is to obtain a dry CT as requested by the provider at [facility] for her to return. He is concern for obstruction however based off my examination and my history and physical obstruction is unlikely. Patient will be given morphine for pain. I will obtain a urine in basic lab work. Fluids will also be given Medical Records Attestation: I reviewed the patient's medical records. Lab Data Attestation: I reviewed the patient's lab results. Result diagrams: 07/21/21 12:57 07/21/21 12:57 Labs: Lab Results 07/21/21 07/21/21 07/21/21 Range/Units 12:57 12:57 13:05 WBC 4.6 L (4.8-10.8) X10*3/uL RBC 4.13 L (4.20-5.50) X10*6/uL Hgb 11.1 L (12.0-16.0) g/dl Hct 35.5 L (37.0-47.0) % MCV 86.0 (80.0-98.0) fL MCH 26.9 L (27.0-33.0) pg MCHC 31.3 (31.0-35.0) g/dl RDW 14.0 (11.0-16.0) % Plt Count 236 (160-400) X10*3/uL MPV 10.0 (9.4-12.3) fL Immature Gran % (Auto) 0.0 (0.0-0.4) % Neut % (Auto) 54.5 (45-73) % Lymph % (Auto) 33.1 (20-40) % Emanuel % (Auto) 9.4 (2-11) % Eos % (Auto) 2.6 (0-4) % Baso % (Auto) 0.4 (0-2) % Lymph # (Auto) 1.5 (1.2-4.9) X10*3/uL Emanuel # (Auto) 0.4 (0.1-1.2) X10*3/uL Eos # (Auto) 0.1 (0.0-0.4) X10*3/uL Baso # (Auto) 0.0 (0.0-0.2) X10*3/uL Abs Immat Gran (auto) 0.00 (0.00-0.03) X10*3/uL Absolute Neuts (auto) 2.5 (2.0-8.3) x10*3/uL Absolute Nucleated RBC 0.000 (0.0-0.012) X10*3/uL Nucleated RBC % (auto) 0.0 (0.0-0.2) /100WBC Sodium 141 (135-145) mmol/L Potassium 4.3 (3.3-5.1) mmol/L Chloride 106 (96-108) mmol/L Carbon Dioxide 26 (22-29) mmol/L Anion Gap 13 (12-20) BUN 12 (9-16) mg/dL Creatinine 0.67 (0.5-1.4) mg/dL Estim Creat Clear Calc TNP Estimated GFR > 60 Random Glucose 128 H (60-115) mg/dL Calcium 9.2 D (8.4-10.2) mg/dL Total Bilirubin 0.3 (0.0-1.0) mg/dL AST 55 H (5-31) U/L ALT 72 H (0-31) U/L Alkaline Phosphatase 90 (39-117) U/L Total Protein 6.9 (6.5-8.0) g/dL Albumin 4.1 (3.5-5.0) g/dL Lipase 16 (8-78) U/L Urine Color RED A Urine Appearance TURBID Urine pH 8.5 H (5.0-8.0) Ur Specific [place] 1.020 (1.005-1.025) Urine Protein 2+ H (NEG-TRACE) MG/DL Urine Glucose (UA) NEG (NEG) MG/DL Urine Ketones NEG (NEG) MG/DL Urine Blood 3+ H (NEG) Urine Nitrite SEE NOTE (NEG) Ur Leukocyte Esterase SEE NOTE (NEG) Urine RBC 0-2 (0) /HPF Urine WBC 0 (0-4) /HPF Ur Squamous Epith Cells 1+ /LPF Amorphous Sediment 3+ /LPF Urine Bacteria NONE /LPF COVID-19 ([facility]) (Negative) COVID-19 Clin Com 07/21/21 Range/Units 13:35 WBC (4.8-10.8) X10*3/uL RBC (4.20-5.50) X10*6/uL Hgb (12.0-16.0) g/dl Hct (37.0-47.0) % MCV (80.0-98.0) fL MCH (27.0-33.0) pg MCHC (31.0-35.0) g/dl RDW (11.0-16.0) % Plt Count (160-400) X10*3/uL MPV (9.4-12.3) fL Immature Gran % (Auto) (0.0-0.4) % Neut % (Auto) (45-73) % Lymph % (Auto) (20-40) % Emanuel % (Auto) (2-11) % Eos % (Auto) (0-4) % Baso % (Auto) (0-2) % Lymph # (Auto) (1.2-4.9) X10*3/uL Emanuel # (Auto) (0.1-1.2) X10*3/uL Eos # (Auto) (0.0-0.4) X10*3/uL Baso # (Auto) (0.0-0.2) X10*3/uL Abs Immat Gran (auto) (0.00-0.03) X10*3/uL Absolute Neuts (auto) (2.0-8.3) x10*3/uL Absolute Nucleated RBC (0.0-0.012) X10*3/uL Nucleated RBC % (auto) (0.0-0.2) /100WBC Sodium (135-145) mmol/L Potassium (3.3-5.1) mmol/L Chloride (96-108) mmol/L Carbon Dioxide (22-29) mmol/L Anion Gap (12-20) BUN (9-16) mg/dL Creatinine (0.5-1.4) mg/dL Estim Creat Clear Calc Estimated GFR Random Glucose (60-115) mg/dL Calcium (8.4-10.2) mg/dL Total Bilirubin (0.0-1.0) mg/dL AST (5-31) U/L ALT (0-31) U/L Alkaline Phosphatase (39-117) U/L Total Protein (6.5-8.0) g/dL Albumin (3.5-5.0) g/dL Lipase (8-78) U/L Urine Color Urine Appearance Urine pH (5.0-8.0) Ur Specific [place] (1.005-1.025) Urine Protein (NEG-TRACE) MG/DL Urine Glucose (UA) (NEG) MG/DL Urine Ketones (NEG) MG/DL Urine Blood (NEG) Urine Nitrite (NEG) Ur Leukocyte Esterase (NEG) Urine RBC (0) /HPF Urine WBC (0-4) /HPF Ur Squamous Epith Cells /LPF Amorphous Sediment /LPF Urine Bacteria /LPF COVID-19 ([facility]) Negative (Negative) COVID-19 Clin Com See Note Critical Care Time Critical Care Time Critical Care Time: Yes Total Critical Care Time: 35 Attestation: I attest to this time spent taking care of the patient speaking to provider at [facility], obtaining history and physical, reviewing old charts, reviewing imaging speaking to urology & My attending Discharge Plan Discharge Clinical Impression: Flank pain, Hematuria, Constipation Patient Disposition: Home, Self-Care Instructions: Flank Pain (ED) Additional Instructions: Take your medications as prescribed. If you were prescribed antibiotics today, it is important that you take your medication to their entirety, do not skip any doses, do not finish them early. Follow-up with your primary care provider this week. Return to the emergency department with new or worsening symptoms. In case of emergency call 911 Prescriptions: New sennosides [senna] 8.6 mg tablet 8.6 mg PO BEDTIME Qty: 14 RF: 0 docusate sodium [Colace] 100 mg capsule 100 mg PO BID Qty: 20 RF: 0 No Action quetiapine 25 mg tablet 1 tab PO BID PRN (Reason: anxiety) RF: 0 atorvastatin 10 mg tablet 1 tab PO DAILY RF: 0 polyvinyl alcohol [Artificial Tears (polyvin alc)] 1.4 % drops 1 drp ophthalmic (eye) TID RF: 0 ondansetron HCl 4 mg tablet 1 tab PO Q8H PRN (Reason: nausea) RF: 0 gabapentin 400 mg capsule 1 cap PO BEDTIME RF: 0 topiramate 25 mg tablet 1 tab PO BID RF: 0 clonidine HCl 0.2 mg tablet 1 tab PO BID PRN (Reason: panic attack) RF: 0 cyanocobalamin (vitamin B-12) 500 mcg tablet 1 tab PO DAILY RF: 0 ascorbic acid (vitamin C) 250 mg tablet 1 tab PO BID RF: 0 amlodipine 10 mg tablet 1 tab PO DAILY RF: 0 mirtazapine 30 mg tablet 1 tab PO BEDTIME RF: 0 mirtazapine 30 mg tablet 1 tab PO BEDTIME RF: 0 docusate sodium 100 mg capsule 1 - 2 cap PO BEDTIME PRN (Reason: constipation) RF: 0 gabapentin 100 mg capsule 1 cap PO TID PRN (Reason: anxiety) RF: 0 zolpidem 10 mg tablet 1 tab PO BEDTIME PRN (Reason: insomnia) RF: 0 albuterol sulfate [ProAir HFA] 90 mcg/actuation HFA aerosol inhaler 2 puff PO Q4-6H PRN (Reason: dyspnea) RF: 0 fluoxetine 20 mg capsule 3 cap PO QAM RF: 0 loratadine 10 mg tablet 1 tab PO DAILY RF: 0 loratadine 10 mg tablet 1 tab PO DAILY RF: 0 tramadol 50 mg tablet 50 mg PO Q8H PRN (Reason: pain) Qty: 3 RF: 0 morphine 15 mg tablet 15 mg PO BID PRN (Reason: pain) Qty: 8 RF: 0 cefuroxime axetil 250 mg tablet 250 mg PO BID 7 Days Qty: 14 RF: 0 nitrofurantoin monohyd/m-cryst [Macrobid] 100 mg capsule 100 mg PO BID Qty: 14 RF: 0 phenazopyridine [Pyridium] 100 mg tablet 100 mg PO TID PRN (Reason: pain) Qty: 6 RF: 0 PMFSH Past Medical History Attestation statement: The following information was validated with the patient. Source: old records reviewed and nursing notes reviewed Medical History Anemia delivery delivered DVT (deep venous thrombosis) HTN (hypertension) Hypercholesteremia Kidney stones Surgical History Total knee replacement status Social History Social History Alcohol intake: current Alcohol intake frequency: holidays/special occasions only Patient Tobacco Use Status: Current everyday Tobacco user Advance Directives: No Advance Directives Information Provided: Yes
[2021-07-21 13:06] LABS: MANUAL DIFF FLAG NO
[2021-07-21 13:08] LABS: Basophils Percent Auto 0.4 % (0-2); Eosinophils Absolute Auto 0.1 X10*3/uL (0.0-0.4); Eosinophils Percent Auto 2.6 % (0-4); Hematocrit 35.5 % (37.0-47.0); Hemoglobin 11.1 g/dl (12.0-16.0); Lymphocytes Absolute Auto 1.5 X10*3/uL (1.2-4.9); Lymphocytes Percent Auto 33.1 % (20-40); Mean Corpuscular HGB Conc 31.3 g/dl (31.0-35.0); Mean Corpuscular Hemoglobin 26.9 pg (27.0-33.0); Monocytes Absolute Auto 0.4 X10*3/uL (0.1-1.2); Monocytes Percent Auto 9.4 % (2-11); Neutrophils Absolute Auto 2.5 x10*3/uL (2.0-8.3); Neutrophils Percent Auto 54.5 % (45-73); Platelet Count 236 X10*3/uL (160-400); Red Blood Count 4.13 X10*6/uL (4.20-5.50); White Blood Count 4.6 X10*3/uL (4.8-10.8)
[2021-07-21 13:24] LABS: Appearance Urine TURBID; Color Urine RED; Glucose Urine UA NEG (NEG); PH 8.5 (5.0-8.0); UACC Culture Trigger NO; Urine Blood 3+ (NEG); Urine Ketones NEG (NEG); Urine Protein 2+ MG/DL (NEG-TRACE)
[2021-07-21 13:24] LABS: Alanine Aminotransferase 72 U/L (0-31); Albumin Level 4.1 g/dL (3.5-5.0); Alkaline Phosphatase 90 U/L (39-117); Anion Gap 13 (12-20); Aspartate Amino Transferase 55 U/L (5-31); Bilirubin Total 0.3 mg/dL (0.0-1.0); Blood Urea Nitrogen 12 mg/dL (9-16); Calcium 9.2 mg/dL (8.4-10.2); Carbon Dioxide 26 mmol/L (22-29); Chloride 106 mmol/L (96-108); Estimated Glomerular Filt Rate > 60; Glucose Random 128 mg/dL (60-115); Lipase 16 U/L (8-78); Potassium 4.3 mmol/L (3.3-5.1); Sodium 141 mmol/L (135-145); Total Protein 6.9 g/dL (6.5-8.0)
[2021-07-21 13:26] LABS: Amorphous Sediment Urine 3+ /LPF; RBC Urine 0-2 /HPF (0); Squamous Epithelial Cell Urine 1+ /LPF; WBC Urine 0 /HPF (0-4)
[2021-07-21] MEDS: 0.9 % Sodium Chloride 1,000 ML 999 ML IV (13:45)
[2021-07-21] MEDS: Morphine Sulfate 4 MG/ML CARTRIDGE IVPUSH (13:46)
[2021-07-21 13:48] VITALS: BP 139/69; PULSE 92; RESP 18; TEMP 36.6; O2SAT 97; BMI 29.2
[2021-07-21 13:59] LABS: COVID-19 Test Negative (Negative)
[2021-07-21] MEDS: ondansetron HCL 4 MG/2 ML VIAL IVPUSH (15:28)
[2021-07-21 15:31] VITALS: BP 130/66; PULSE 83; RESP 16; O2SAT 97
[2021-07-21] MEDS: Docusate Sodium 100 MG CAPSULE PO (16:37)
[2021-07-21 16:58] VITALS: BP 120/61; PULSE 76; RESP 16; TEMP 36.6; O2SAT 98
== END 2021-07-21 20:07 | disposition home or self-care (01) ==
LOC: HO.ED 13:11
PROVIDERS: Physician Assistant; Emergency Provider Emergency Medicine
DX: R31.9 Hematuria, unspecified (principal); K59.00 Constipation, unspecified; R10.9 Unspecified abdominal pain; F17.200 Nicotine dependence, unspecified, uncomplicated; I10 Essential (primary) hypertension; Z20.822 Contact with and (suspected) exposure to COVID-19; Z86.718 Personal history of other venous thrombosis and embolism; Z79.899 Other long term (current) drug therapy; Z71.6 Tobacco abuse counseling
CPT/HCPCS: 36415; 74176; 80053; 81001; 83690; 85025; 87635; 96361; 96374; 96375; 99284; 99291; J2270; J2405

== ENCOUNTER 2021-11-23 07:50 | Emergency (ER) | payer MEDICAID, SELFPAY ==
--- NOTE | ~2021-11-23 | CT_ITS ---
EXAMINATION: CT ABDOMEN AND PELVIS WITHOUT CONTRAST CLINICAL INFORMATION: History of kidney stones with right flank pain. COMPARISON: None TECHNIQUE: Multidetector volumetric imaging was performed from the superior aspect of the liver through the pubic symphysis. Sagittal and coronal reformatted images were obtained on the technologist's workstation. This CT examination was performed using dose optimization techniques as appropriate, variously including the following: *Automated exposure control *Adjustment of mA and/or kV according to patient size (this includes techniques or standardized protocols for targeted exams where dose is matched to indication/reason for exam; i.e. extremities or head) *Use of iterative reconstruction technique DLP: 475 mGy-cm FINDINGS: LUNG BASES: The lung bases are clear. Heart size is normal. LIVER, GALLBLADDER, AND BILIARY TREE: The liver is normal in size, shape, and attenuation. No focal hepatic lesion or biliary ductal dilatation is present. The gallbladder is unremarkable with no evidence of radiopaque gallstones, gallbladder wall thickening, or obvious pericholecystic inflammatory changes. PANCREAS: Unremarkable. SPLEEN: Unremarkable. ADRENAL GLANDS: Unremarkable. KIDNEYS AND URETERS: The kidneys are normal in size, shape, and attenuation. There are small radiopaque calculi seen in both kidneys. Largest radiopaque calculi left kidney measures 4 mm upper pole and at least four 2mm radiopaque calculi in upper and midpole left kidney. There is no caliectasis or hydronephrosis. A 1.3 cm fatty lesion is seen in the upper pole left kidney cortex likely angiomyolipoma. There is 3 mm and 2 mm radiopaque calculi mid pole right kidney without caliectasis. There is no hydronephrosis or hydroureter. BLADDER: Unremarkable. GASTROINTESTINAL TRACT: The small and large bowel are unremarkable. The appendix is unremarkable. ABDOMINAL WALL: There is a small umbilical hernia containing fat. LYMPH NODES: Normal. VASCULAR: Unremarkable. PELVIC VISCERA: The uterus is anteverted and appears unremarkable. There is fatty's strands extending from the tip of the bladder through the umbilicus likely a urachal remnant or scar. OSSEOUS STRUCTURES: There is bilateral L4-L5 facet joint arthropathy and vacuum disc phenomena. CT/CT abdomen pelvis wo con IMPRESSION: Bilateral nonobstructive radiopaque renal calculi. There is no hydroureteronephrosis on either side. Angiomyolipoma upper pole right kidney. Mild constipation. Appendix is not seen. Small umbilical hernia containing fat Fleischner guidelines were followed.
[2021-11-23 07:55] VITALS: BP 126/94; PULSE 90; O2SAT 98
[2021-11-23 08:00] VITALS: BP 132/84; PULSE 91; RESP 16; TEMP 36.3; O2SAT 99; BMI 27.9
[2021-11-23 08:15] LABS: Appearance Urine CLOUDY; Color Urine YELLOW; Glucose Urine UA NEG (NEG); Leukocyte Esterase Urine TRACE (NEG); Nitrite Urine NEG (NEG); PH 5.5 (5.0-8.0); Specific Gravity - Urine >= 1.030 (1.005-1.025); Urine Blood NEG (NEG); Urine Ketones 5 MG/DL (NEG); Urine Protein TRACE MG/DL (NEG-TRACE)
[2021-11-23 08:38] LABS: Bacteria Urine 1+ /LPF; Mucus Urine 3+ /LPF; RBC Urine 0 /HPF (0); Squamous Epithelial Cell Urine 3+ /LPF
[2021-11-23 08:50] LABS: MANUAL DIFF FLAG NO
[2021-11-23 08:52] LABS: Basophils Percent Auto 0.2 % (0-2); Eosinophils Percent Auto 0.3 % (0-4); Hematocrit 40.9 % (37.0-47.0); Hemoglobin 12.6 g/dl (12.0-16.0); Imm Gran Abs Auto 0.01 X10*3/uL (0.00-0.03); Imm Gran Pct Auto 0.2 % (0.0-0.4); Lymphocytes Absolute Auto 1.5 X10*3/uL (1.2-4.9); Lymphocytes Percent Auto 26.4 % (20-40); Mean Corpuscular HGB Conc 30.8 g/dl (31.0-35.0); Mean Corpuscular Hemoglobin 26.5 pg (27.0-33.0); Mean Corpuscular Volume 86.1 fL (80.0-98.0); Mean Platelet Volume 9.9 fL (9.4-12.3); Monocytes Absolute Auto 0.4 X10*3/uL (0.1-1.2); Monocytes Percent Auto 6.6 % (2-11); Neutrophils Absolute Auto 3.8 x10*3/uL (2.0-8.3); Neutrophils Percent Auto 66.3 % (45-73); Platelet Count 289 X10*3/uL (160-400); Red Blood Count 4.75 X10*6/uL (4.20-5.50); Red Cell Distribution Width 14.9 % (11.0-16.0); White Blood Count 5.8 X10*3/uL (4.8-10.8)
[2021-11-23 09:15] LABS: Alanine Aminotransferase 13 U/L (0-31); Albumin Level 4.8 g/dL (3.5-5.0); Alkaline Phosphatase 93 U/L (39-117); Anion Gap 16 (12-20); Aspartate Amino Transferase 16 U/L (5-31); Bilirubin Total 0.3 mg/dL (0.0-1.0); Blood Urea Nitrogen 19 mg/dL (9-16); Calcium 9.8 mg/dL (8.4-10.2); Carbon Dioxide 25 mmol/L (22-29); Chloride 116 mmol/L (96-108); Creatinine Clr Calc Pharmacy 67.2; Estimated Glomerular Filt Rate > 60; Glucose Random 123 mg/dL (60-115); Lipase 24 U/L (8-78); Potassium 3.7 mmol/L (3.3-5.1); Sodium 153 mmol/L (135-145)
[2021-11-23 09:40] VITALS: RESP 17
[2021-11-23] MEDS: HYDROmorphone HCl 0.5 MG/0.5 ML SYRINGE IVPUSH (09:40)
[2021-11-23 09:58] LABS: Magnesium 2.1 mg/dL (1.6-2.6)
[2021-11-23] MEDS: ondansetron HCL 4 MG/2 ML VIAL IVPUSH (10:08)
[2021-11-23] MEDS: 0.9 % Sodium Chloride 1,000 ML 999 ML IVCONT ×2 (10:34→10:35)
[2021-11-23 10:41] VITALS: BP 142/75; PULSE 67; RESP 17; O2SAT 100
[2021-11-23] MEDS: Nitrofurantoin Monohyd/M-Cryst 100 MG CAPSULE PO (10:41)
[2021-11-23] MEDS: Phenazopyridine HCL 100 MG TABLET PO (10:41)
[2021-11-23 11:43] VITALS: RESP 18
--- NOTE | 2021-11-23 13:46 | ED_ITS ---
HPI - Abdominal Pain General Chief Complaint: Abdominal Pain Stated Complaint: ABD PAIN Time Seen by Provider: 11/23/21 09:14 Source: patient Mode of arrival: ambulatory Limitations: no limitations History of Present Illness HPI narrative: 56-year-old female with a past medical history of kidney stones, DVT, hypert ension presenting to the ED with complaints is severe 10/10 right-sided flank pain with associated suprapubic abdominal pain and nausea/vomiting for the past few days worse since this morning. Reports she is taking Zofran and tramadol and no symptomatic relief. She reports she feels like this is a kidney stone. She denies any fevers, dizziness, headaches, neck pain/stiffness, trouble swallowing or breathing, chest pain or shortness of breath, radiation of the abdominal pain, black or bloody emesis, black or bloody stools, diarrhea, constipation, dysuria, hematuria, abnormal vaginal discharge, recent travel or sick contacts or possible bad food exposure or recent antibiotic usage or hospit alization or any other symptoms complaints or concerns at this time. MD elicited complaint: abdominal pain and flank pain Pertinent past history: kidney stones Onset (ago): day(s) Pain Consistency: constant Location: R flank Severity: severe Pain scale (0-10): 10 Quality: stabbing, aching and sharp Radiation: none Migration to: no migration Exacerbating factors: nothing Relieving factors: nothing Associated symptoms: nausea and vomiting Related Data Home Medications Medication Instructions Recorded Confirmed albuterol sulfate 90 mcg/actuation 2 puff PO Q4-6H PRN 11/26/20 11/26/20 aerosol inhaler (ProAir HFA) amlodipine 10 mg tablet 1 tab PO DAILY 11/26/20 11/26/20 ascorbic acid (vitamin C) 250 mg 1 tab PO BID 11/26/20 11/26/20 tablet atorvastatin 10 mg tablet 1 tab PO DAILY 11/26/20 11/26/20 clonidine HCl 0.2 mg tablet 1 tab PO BID PRN 11/26/20 11/26/20 cyanocobalamin (vitamin B-12) 500 1 tab PO DAILY 11/26/20 11/26/20 mcg tablet docusate sodium 100 mg capsule 1 - 2 cap PO BEDTIME PRN 11/26/20 11/26/20 fluoxetine 20 mg capsule 3 cap PO QAM 11/26/20 11/26/20 gabapentin 100 mg capsule 1 cap PO TID PRN 11/26/20 11/26/20 gabapentin 400 mg capsule 1 cap PO BEDTIME 11/26/20 11/26/20 loratadine 10 mg tablet 1 tab PO DAILY 11/26/20 11/26/20 loratadine 10 mg tablet 1 tab PO DAILY 11/26/20 11/26/20 mirtazapine 30 mg tablet 1 tab PO BEDTIME 11/26/20 11/26/20 mirtazapine 30 mg tablet 1 tab PO BEDTIME 11/26/20 11/26/20 ondansetron HCl 4 mg tablet 1 tab PO Q8H PRN 11/26/20 11/26/20 polyvinyl alcohol 1.4 % eye drops 1 drp OPHTHALMIC (EYE) TID 11/26/20 11/26/20 (Artificial Tears (polyvinyl alcohol)) quetiapine 25 mg tablet 1 tab PO BID PRN 11/26/20 11/26/20 topiramate 25 mg tablet 1 tab PO BID 11/26/20 11/26/20 zolpidem 10 mg tablet 1 tab PO BEDTIME PRN 11/26/20 11/26/20 Previous Rx's Medication Instructions Recorded tramadol 50 mg tablet 50 mg PO Q8H PRN #3 tab 11/26/20 nitrofurantoin 100 mg PO BID #14 cap 05/26/21 monohydrate/macrocrystals 100 mg capsule (Macrobid) phenazopyridine 100 mg tablet 100 mg PO TID PRN #6 tab 05/26/21 (Pyridium) cefuroxime axetil 250 mg tablet 250 mg PO BID 7 Days #14 tab 07/15/21 morphine 15 mg immediate release 15 mg PO BID PRN #8 tab 07/15/21 tablet docusate sodium 100 mg capsule 100 mg PO BID #20 cap 07/21/21 (Colace) sennosides 8.6 mg tablet (senna) 8.6 mg PO BEDTIME #14 tab 07/21/21 docusate sodium 100 mg capsule 100 mg PO BID PRN #14 cap 11/23/21 (Colace) nitrofurantoin 100 mg PO BID 7 Days #14 cap 11/23/21 monohydrate/macrocrystals 100 mg capsule (Macrobid) ondansetron 4 mg disintegrating 4 mg PO Q6H #14 tab 11/23/21 tablet Allergies Allergy/AdvReac Type Severity Reaction Status Date / Time aspirin [ASA] Allergy Intermediate RASH, Verified 11/23/21 08:01 nausea and vomiting ibuprofen [IBUPROFEN] Allergy Intermediate RASH Verified 11/23/21 08:01 nicotine Allergy Intermediate RASH FROM Verified 11/23/21 08:01 NICOTINE PATCH, nausea and vomiting ketorolac [From TORADOL] Allergy Mild RAPID HR Verified 11/23/21 08:01 AND HIVES Review of Systems Review of Systems Constitutional : No Weight loss, No Fever, No Chills, No Night Sweats, No Fatigue, No Malaise ENT/Mouth : No Hearing loss, No Ear Pain, No Nasal Congestion, No Sinus Pain, No Hoarseness, No sore throat, No Rhinorrhea, No Swallowing Difficulty Eyes: No Eye Pain, No Swelling, No Redness, No Foreign Body, No Discharge, No Vision Changes Cardiovascular : No Chest Pain, No SOB, No Dyspnea on Exertion, No Orthopnea, No Edema, No Palpitations Respiratory : No Cough, No Sputum, No Wheezing, No Smoke Exposure, No Dyspnea Gastrointestinal : + Nausea, + Vomiting, No Diarrhea, No Constipation, + abdomin al Pain, No Hematochezia, No Melena Genitourinary : no irregular bleeding, No Dysuria, No Urinary Frequency, No Hematuria, No Urinary Incontinence, No Urgency, No Flank Pain, No Urinary Flow Changes, No Hesitancy Musculoskeletal : No joint pain, No Myalgias, No Joint Swelling Skin : No Skin Lesions, No rash Neuro : No Weakness, No Numbness, No Paresthesias, No Loss of Consciousness, No Dizziness, No Headache Psych : No Anxiety/Panic, No Depression, No SI/HI/AH/VH, No Social Issues, Heme/Lymph: No Bruising, No Bleeding,No Lymphadenopathy Endocrine : No Polyuria, No Polydipsia, No Temperature Intolerance Yes all other systems are reviewed and are negative [facility] Past Medical History Attestation statement: The following information was validated with the patient. Medical History Anemia delivery delivered DVT (deep venous thrombosis) HTN (hypertension) Hypercholesteremia Kidney stones Surgical History Total knee replacement status Social History Social History Alcohol intake: current Alcohol intake frequency: holidays/special occasions only Patient Tobacco Use Status: Current everyday Tobacco user Advance Directives: No Advance Directives Information Provided: No Physical Exam ED Vital Signs: Vital Signs - 24 hr 11/23/21 08:00 11/23/21 09:40 11/23/21 10:41 Temperature 97.4 F Pulse Rate 91 67 Respiratory Rate 16 17 17 Blood Pressure 132/84 142/75 H Pulse Oximetry 99 100 11/23/21 11:43 Temperature Pulse Rate Respiratory Rate 18 Blood Pressure Pulse Oximetry BMI result Body Mass Index 27.9 Vital signs have been reviewed and all within normal limits Appearance: Alert. Oriented X3. No acute distress. Head: Normal external exam. Normocephalic. Eyes: PERRLA. EOMI. Conjunctiva and sclera normal. Eyelids normal. ENT: Pharynx normal. Uvula midline. Moist mucous membranes. No trismus noted. No drooling noted. No muffled voice noted. Neck: Normal inspection. Neck supple. FROM. No adenopathy. No meningeal signs. CVS: Normal heart rate and rhythm. Heart sound normal. No murmurs noted. Pulses normal throughout. Respiratory: No respiratory distress. Painless inspiration. Breath sounds normal. No wheezes/rales/rhonchi noted. Chest nontender. No accessory muscle usage noted or decreased air movement noted. Abdomen: Soft and mild TTP to suprapubic/right flank. Nondistended. No guarding. No rigidity. Bowel sounds normal in all 4 quadrants. No distention noted. No organomegaly noted. No visible injury noted. No rebound tenderness. Negative Rovsing sign. Negative obturator's sign. Negative psoas sign. Negative Dominguez sign. Back: No CVA tenderness. Full range of motion noted. Skin: Skin warm and dry. Normal skin color. Normal skin turgor. No rashes/lesions/lacerations noted. Extremities: Extremities exhibit normal range of motion. Extremities nontender. Neuro: Oriented X 3. No motor deficit. No sensory deficit. Reflexes normal. Normal steady gait. CN's II-XII intact bilaterally? Course Course Course Narrative: 8:40am - 56-year-old female with a past medical history of kidney stones, DVT, hypertension presenting to the ED with complaints is severe 10/10 right-sided flank pain with associated suprapubic abdominal pain and nausea/vomiting for the past few days worse since this morning. Reports she is taking Zofran and tramadol and no symptomatic relief. She reports she feels like this is a kidney stone. Plan: Labs, UA, CT scan abdomen pelvis without IV contrast. Provide IV fluids with 4 mg of Zofran due to patient does not want Reglan and Dilaudid due to patient does not want morphine then re-evaluate. Reevaluation(s) Reevaluation #1: - labs were reviewed and patient's sodium at 01:53. Chloride 116. BUN 19. Random glucose 123. Otherwise all other labs are within normal limits and patient UA with a trace of leukocytes therefore will treat for UTI. - CT scan abdomen pelvis without IV contrast revealed constipation and other acute processes. - will provide 2 L of IV fluids of normal saline then recheck the patient's chemistry. Time: 13:52 Reevaluation #2: - repeat sodium 148. Therefore improving patient is now eating and drinking n ormally. Therefore at this time will instruct to return if any new or worsening symptoms follow-up with PCP for recheck sodium level within the next 2 days. Patient understands agrees with this plan. Time: 13:57 MDM - Abdominal Pain Medical Records Attestation: I reviewed the patient's medical records. Lab Data Attestation: I reviewed the patient's lab results. Result diagrams: 11/23/21 08:45 11/23/21 08:45 Labs: Lab Results 11/23/21 11/23/21 11/23/21 Range/Units 08:07 08:45 08:45 WBC 5.8 (4.8-10.8) X10*3/uL RBC 4.75 (4.20-5.50) X10*6/uL Hgb 12.6 (12.0-16.0) g/dl Hct 40.9 (37.0-47.0) % MCV 86.1 (80.0-98.0) fL MCH 26.5 L (27.0-33.0) pg MCHC 30.8 L (31.0-35.0) g/dl RDW 14.9 (11.0-16.0) % Plt Count 289 (160-400) X10*3/uL MPV 9.9 (9.4-12.3) fL Immature Gran % (Auto) 0.2 (0.0-0.4) % Neut % (Auto) 66.3 (45-73) % Lymph % (Auto) 26.4 (20-40) % Roberts % (Auto) 6.6 (2-11) % Eos % (Auto) 0.3 (0-4) % Baso % (Auto) 0.2 (0-2) % Lymph # (Auto) 1.5 (1.2-4.9) X10*3/uL Roberts # (Auto) 0.4 (0.1-1.2) X10*3/uL Eos # (Auto) 0.0 (0.0-0.4) X10*3/uL Baso # (Auto) 0.0 (0.0-0.2) X10*3/uL Abs Immat Gran (auto) 0.01 (0.00-0.03) X10*3/uL Absolute Neuts (auto) 3.8 (2.0-8.3) x10*3/uL Absolute Nucleated RBC 0.000 (0.0-0.012) X10*3/uL Nucleated RBC % (auto) 0.0 (0.0-0.2) /100WBC Sodium 153 H (135-145) mmol/L Potassium 3.7 (3.3-5.1) mmol/L Chloride 116 H (96-108) mmol/L Carbon Dioxide 25 (22-29) mmol/L Anion Gap 16 (12-20) BUN 19 H D (9-16) mg/dL Creatinine 0.81 (0.5-1.4) mg/dL Estim Creat Clear Calc 67.2 Estimated GFR > 60 Random Glucose 123 H (60-115) mg/dL Calcium 9.8 D (8.4-10.2) mg/dL Magnesium 2.1 (1.6-2.6) mg/dL Total Bilirubin 0.3 (0.0-1.0) mg/dL AST 16 D (5-31) U/L ALT 13 (0-31) U/L Alkaline Phosphatase 93 (39-117) U/L Total Protein 8.0 (6.5-8.0) g/dL Albumin 4.8 (3.5-5.0) g/dL Lipase 24 (8-78) U/L Urine Color YELLOW Urine Appearance CLOUDY Urine pH 5.5 (5.0-8.0) Ur Specific [place] >= 1.030 H (1.005-1.025) Urine Protein TRACE (NEG-TRACE) MG/DL Urine Glucose (UA) NEG (NEG) MG/DL Urine Ketones 5 (NEG) MG/DL Urine Blood NEG (NEG) Urine Nitrite NEG (NEG) Ur Leukocyte Esterase TRACE H (NEG) Urine RBC 0 (0) /HPF Urine WBC 5-9 H (0-4) /HPF Ur Squamous Epith Cells 3+ /LPF Urine Bacteria 1+ /LPF Urine Mucus 3+ /LPF Imaging Data CT scan abdomen pelvis without IV contrast.: Attestation: I personally reviewed and interpreted this imaging study as follows: Radiologist's impression: FINDINGS: LUNG BASES: The lung bases are clear. Heart size is normal.? LIVER, GALLBLADDER, AND BILIARY TREE: The liver is normal in size, shape, and attenuation. No focal hepatic lesion or biliary ductal dilatation is present. The gallbladder is unremarkable with no evidence of radiopaque gallstones, gallbladder wall thickening, or obvious pericholecystic inflammatory changes.? PANCREAS: Unremarkable.? SPLEEN: Unremarkable.? ADRENAL GLANDS: Unremarkable.? KIDNEYS AND URETERS: The kidneys are normal in size, shape, and attenuation. There are small radiopaque calculi seen in both kidneys. Largest radiopaque calculi left kidney measures 4 mm upper pole and at least four 2mm radiopaque calculi in upper and midpole left kidney. There is no caliectasis or hydronephrosis. A 1.3 cm fatty lesion is seen in the upper pole left kidney cortex likely angiomyolipoma. There is 3 mm and 2 mm radiopaque calculi mid pole right kidney without caliectasis. There is no hydronephrosis or hydroureter. BLADDER: Unremarkable.? GASTROINTESTINAL TRACT: The small and large bowel are unremarkable. The appendix is unremarkable.? ABDOMINAL WALL: There is a small umbilical hernia containing fat.? LYMPH NODES: Normal. VASCULAR: Unremarkable. PELVIC VISCERA: The uterus is anteverted and appears unremarkable. There is fatty's strands extending from the tip of the bladder through the umbilicus likely a urachal remnant or scar.? OSSEOUS STRUCTURES: There is bilateral L4-L5 facet joint arthropathy and vacuum disc phenomena. ? CT/CT abdomen pelvis wo con IMPRESSION: Bilateral nonobstructive radiopaque renal calculi. There is no hydroureteronephrosis on either side. ? Angiomyolipoma upper pole right kidney. ? Mild constipation. Appendix is not seen. ? Small umbilical hernia containing fat ? ? ? Fleischner guidelines were followed. Critical Care Time Critical Care Time Critical Care Time: Yes Total Critical Care Time: 60 Attestation: I personally attest to this time spent taking care of the patient Discharge Plan Discharge Clinical Impression: Gastroenteritis, Constipation, UTI (urinary tract infection), Acute hypernatremia Patient Disposition: Home, Self-Care Instructions: Constipation (ED), Urinary Tract Infection in Women (DC), Gastroenteritis (ED), Hypernatremia (ED) Additional Instructions: You should have repeat sodium levels within the next 2-3 days your sodium is now at 148 normal is 135-145. Return if any new or worsening symptoms follow up with her primary care provider for repeat sodium testing. Prescriptions: New docusate sodium [Colace] 100 mg capsule 100 mg PO BID PRN (Reason: Constipation) Qty: 14 0RF ondansetron 4 mg tablet,disintegrating 4 mg PO Q6H Qty: 14 0RF nitrofurantoin monohyd/m-cryst [Macrobid] 100 mg capsule 100 mg PO BID 7 Days Qty: 14 0RF Rx Instructions: must administer with a meal/food No Action quetiapine 25 mg tablet 1 tab PO BID PRN (Reason: anxiety) 0RF atorvastatin 10 mg tablet 1 tab PO DAILY 0RF polyvinyl alcohol [Artificial Tears (polyvin alc)] 1.4 % drops 1 drp ophthalmic (eye) TID 0RF ondansetron HCl 4 mg tablet 1 tab PO Q8H PRN (Reason: nausea) 0RF gabapentin 400 mg capsule 1 cap PO BEDTIME 0RF topiramate 25 mg tablet 1 tab PO BID 0RF clonidine HCl 0.2 mg tablet 1 tab PO BID PRN (Reason: panic attack) 0RF cyanocobalamin (vitamin B-12) 500 mcg tablet 1 tab PO DAILY 0RF ascorbic acid (vitamin C) 250 mg tablet 1 tab PO BID 0RF amlodipine 10 mg tablet 1 tab PO DAILY 0RF mirtazapine 30 mg tablet 1 tab PO BEDTIME 0RF mirtazapine 30 mg tablet 1 tab PO BEDTIME 0RF docusate sodium 100 mg capsule 1 - 2 cap PO BEDTIME PRN (Reason: constipation) 0RF gabapentin 100 mg capsule 1 cap PO TID PRN (Reason: anxiety) 0RF zolpidem 10 mg tablet 1 tab PO BEDTIME PRN (Reason: insomnia) 0RF albuterol sulfate [ProAir HFA] 90 mcg/actuation HFA aerosol inhaler 2 puff PO Q4-6H PRN (Reason: dyspnea) 0RF fluoxetine 20 mg capsule 3 cap PO QAM 0RF loratadine 10 mg tablet 1 tab PO DAILY 0RF loratadine 10 mg tablet 1 tab PO DAILY 0RF tramadol 50 mg tablet 50 mg PO Q8H PRN (Reason: pain) Qty: 3 0RF morphine 15 mg tablet 15 mg PO BID PRN (Reason: pain) Qty: 8 0RF cefuroxime axetil 250 mg tablet 250 mg PO BID 7 Days Qty: 14 0RF nitrofurantoin monohyd/m-cryst [Macrobid] 100 mg capsule 100 mg PO BID Qty: 14 0RF Rx Instructions: must administer with a meal/food phenazopyridine [Pyridium] 100 mg tablet 100 mg PO TID PRN (Reason: pain) Qty: 6 0RF sennosides [senna] 8.6 mg tablet 8.6 mg PO BEDTIME Qty: 14 0RF docusate sodium [Colace] 100 mg capsule 100 mg PO BID Qty: 20 0RF Referrals: Amber Quiroz MD [Primary Care Provider] - 2 days Print Language: Moroccan
[2021-11-23 13:53] LABS: Anion Gap 9 (12-20); Blood Urea Nitrogen 14 mg/dL (9-16); Calcium 8.3 mg/dL (8.4-10.2); Carbon Dioxide 23 mmol/L (22-29); Chloride 120 mmol/L (96-108); Estimated Glomerular Filt Rate > 60; Glucose Random 112 mg/dL (60-115); Potassium 3.7 mmol/L (3.3-5.1); Sodium 148 mmol/L (135-145)
--- NOTE | 2021-11-23 14:09 | PC.NURSE ---
PT UP OOB BY SELF TO BATHROOM AND BACK SEVERAL TIMES, PT REQUESTED FOOT AND DRINK X 5, FOOD AND DRINK WERE PROVIDED. PT REQUESTED BUS PASS TO GET HOME, ONE BUS PASS WAS PROVIDED.
== END 2021-11-23 14:20 | disposition home or self-care (01) ==
PROVIDERS: Physician Assistant Medical; Emergency Provider Emergency Medicine Emergency Medical Services; PCP Family Medicine
DX: K52.9 Noninfective gastroenteritis and colitis, unspecified (principal); K59.00 Constipation, unspecified; N39.0 Urinary tract infection, site not specified; E87.0 Hyperosmolality and hypernatremia; R10.9 Unspecified abdominal pain; F17.200 Nicotine dependence, unspecified, uncomplicated
CPT/HCPCS: 36415; 74176; 80048; 80053; 81001; 83690; 83735; 85025; 87086; 96361; 96374; 96375; 99283; 99284; J1170; J2405

== ENCOUNTER 2022-04-13 11:40 | Emergency (ER) | payer MEDICAID, SELFPAY ==
[2022-04-13 11:43] VITALS: BP 136/94; PULSE 71; O2SAT 98
[2022-04-13 11:57] VITALS: BP 114/63; PULSE 65; RESP 16; TEMP 36.3; O2SAT 95; BMI 26.4
[2022-04-13 12:07] LABS: MANUAL DIFF FLAG NO
[2022-04-13 12:10] LABS: Basophils Percent Auto 0.3 % (0-2); Eosinophils Percent Auto 0.3 % (0-4); Hematocrit 34.7 % (37.0-47.0); Hemoglobin 11.2 g/dl (12.0-16.0); Imm Gran Abs Auto 0.01 X10*3/uL (0.00-0.03); Imm Gran Pct Auto 0.2 % (0.0-0.4); Lymphocytes Absolute Auto 1.7 X10*3/uL (1.2-4.9); Lymphocytes Percent Auto 28.1 % (20-40); Mean Corpuscular HGB Conc 32.3 g/dl (31.0-35.0); Mean Corpuscular Volume 83.6 fL (80.0-98.0); Mean Platelet Volume 9.3 fL (9.4-12.3); Monocytes Absolute Auto 0.4 X10*3/uL (0.1-1.2); Neutrophils Absolute Auto 3.8 x10*3/uL (2.0-8.3); Neutrophils Percent Auto 65.1 % (45-73); Platelet Count 282 X10*3/uL (160-400); Red Blood Count 4.15 X10*6/uL (4.20-5.50); Red Cell Distribution Width 14.1 % (11.0-16.0); White Blood Count 5.9 X10*3/uL (4.8-10.8)
[2022-04-13 12:25] LABS: Anion Gap 17 (12-20); Blood Urea Nitrogen 9 mg/dL (9-16); Calcium 9.2 mg/dL (8.4-10.2); Carbon Dioxide 24 mmol/L (22-29); Chloride 107 mmol/L (96-108); Creatinine Clr Calc Pharmacy 71.6; Estimated Glomerular Filt Rate > 60; Glucose Random 99 mg/dL (60-115); Potassium 3.5 mmol/L (3.3-5.1); Sodium 144 mmol/L (135-145)
== END 2022-04-13 17:52 | disposition left against medical advice (07) ==
LOC: HO.ED 16:48
PROVIDERS: Emergency Provider Emergency Medicine
DX: R10.32 Left lower quadrant pain (principal); Z79.899 Other long term (current) drug therapy
CPT/HCPCS: 36415; 80048; 85025; 99281; 99283

== ENCOUNTER 2022-08-01 23:35 | Emergency (ER) | payer MEDICAID, SELFPAY ==
--- NOTE | ~2022-08-01 | CT_ITS ---
EXAMINATION: CT ABDOMEN AND PELVIS WITHOUT CONTRAST CLINICAL INFORMATION: Bilateral flank pain, history of stones COMPARISON: 11/23/2021 TECHNIQUE: Multidetector volumetric imaging was performed from the superior aspect of the liver through the pubic symphysis. Sagittal and coronal reformatted images were obtained on the technologist's workstation. This CT examination was performed using dose optimization techniques as appropriate, variously including the following: *Automated exposure control *Adjustment of mA and/or kV according to patient size (this includes techniques or standardized protocols for targeted exams where dose is matched to indication/reason for exam; i.e. extremities or head) *Use of iterative reconstruction technique DLP: 527 mGy-cm FINDINGS: LUNG BASES: The visualized lung bases are unremarkable. LIVER, GALLBLADDER, AND BILIARY TREE: The liver is normal in size, shape, and attenuation. No focal hepatic lesion or biliary ductal dilatation is present. The gallbladder is unremarkable with no evidence of radiopaque gallstones, gallbladder wall thickening, or obvious pericholecystic inflammatory changes. PANCREAS: Unremarkable. SPLEEN: Unremarkable. ADRENAL GLANDS: Unremarkable. KIDNEYS AND URETERS: No hydronephrosis or obstructing calculus bilaterally. There are several bilateral renal calculi measuring up to 4 mm. Fat density structure in the upper right kidney measuring 1.3 cm is suspicious for an angiomyolipoma. BLADDER: Nearly empty and not adequately evaluated. GASTROINTESTINAL TRACT: No evidence of bowel obstruction or significant wall thickening. Moderate to large volume of stool is present. Appendix appears collapsed. No free fluid or free air is seen. ABDOMINAL WALL: No significant hernia is appreciated. LYMPH NODES: Normal. VASCULAR: Mild scattered atherosclerotic calcifications. PELVIC VISCERA: Unremarkable. OSSEOUS STRUCTURES: There is facet arthropathy of the lower lumbar spine. CT/CT abdomen pelvis wo IV con IMPRESSION: 1. No hydronephrosis or obstructing calculus bilaterally. Several bilateral renal calculi measuring up to 4 mm. 2. Moderate to large volume of stool.
[2022-08-01 23:44] VITALS: BP 162/70; PULSE 96; O2SAT 99; BMI 24.0
--- NOTE | 2022-08-01 23:47 | ED.ABDPAIN ---
HPI - Abdominal Pain General Chief Complaint: Back Pain/Injury Stated Complaint: LOWER BACK PAIN Time Seen by Provider: 08/01/22 23:40 Source: patient and EMS Mode of arrival: EMS Limitations: no limitations History of Present Illness HPI narrative: 56-year-old female presents via EMS for bilateral lower back pain, hematuria, and 10/10 flank pain. Patient has known kidney stones, recurrent UTIs. MD elicited complaint: flank pain Pertinent past history: kidney stones and past UTI Onset (ago): day(s) (1) Pain Consistency: constant Location: L flank and R flank Severity: severe Pain scale (0-10): 10 Quality: aching Radiation: none Migration to: no migration Exacerbating factors: movement Relieving factors: nothing Context: history of similar episodes Associated symptoms: nausea and vomiting Related Data Home Medications Medication Instructions Recorded Confirmed albuterol sulfate 90 mcg/actuation 2 puff PO Q4-6H PRN dyspnea 11/26/20 11/26/20 aerosol inhaler (ProAir HFA) amlodipine 10 mg tablet 1 tab PO DAILY 11/26/20 11/26/20 ascorbic acid (vitamin C) 250 mg 1 tab PO BID 11/26/20 11/26/20 tablet atorvastatin 10 mg tablet 1 tab PO DAILY 11/26/20 11/26/20 clonidine HCl 0.2 mg tablet 1 tab PO BID PRN panic attack 11/26/20 11/26/20 cyanocobalamin (vitamin B-12) 500 1 tab PO DAILY 11/26/20 11/26/20 mcg tablet docusate sodium 100 mg capsule 1 - 2 cap PO BEDTIME PRN 11/26/20 11/26/20 constipation fluoxetine 20 mg capsule 3 cap PO QAM 11/26/20 11/26/20 gabapentin 100 mg capsule 1 cap PO TID PRN anxiety 11/26/20 11/26/20 gabapentin 400 mg capsule 1 cap PO BEDTIME 11/26/20 11/26/20 loratadine 10 mg tablet 1 tab PO DAILY 11/26/20 11/26/20 loratadine 10 mg tablet 1 tab PO DAILY 11/26/20 11/26/20 mirtazapine 30 mg tablet 1 tab PO BEDTIME 11/26/20 11/26/20 mirtazapine 30 mg tablet 1 tab PO BEDTIME 11/26/20 11/26/20 ondansetron HCl 4 mg tablet 1 tab PO Q8H PRN nausea 11/26/20 11/26/20 polyvinyl alcohol 1.4 % eye drops 1 drp ophthalmic (eye) TID 11/26/20 11/26/20 (Artificial Tears (polyvinyl alcohol)) quetiapine 25 mg tablet 1 tab PO BID PRN anxiety 11/26/20 11/26/20 topiramate 25 mg tablet 1 tab PO BID 11/26/20 11/26/20 zolpidem 10 mg tablet 1 tab PO BEDTIME PRN insomnia 11/26/20 11/26/20 Previous Rx's Medication Instructions Recorded tramadol 50 mg tablet 50 mg PO Q8H PRN pain #3 tabs 11/26/20 nitrofurantoin 100 mg PO BID #14 caps 05/26/21 monohydrate/macrocrystals 100 mg capsule (Macrobid) phenazopyridine 100 mg tablet 100 mg PO TID PRN pain 6 doses #6 05/26/21 (Pyridium) tabs cefuroxime axetil 250 mg tablet 250 mg PO BID 7 days #14 tabs 07/15/21 morphine 15 mg immediate release 15 mg PO BID PRN pain #8 tabs 07/15/21 tablet docusate sodium 100 mg capsule 100 mg PO BID #20 caps 07/21/21 (Colace) sennosides 8.6 mg tablet (senna) 8.6 mg PO BEDTIME #14 tabs 07/21/21 docusate sodium 100 mg capsule 100 mg PO BID PRN Constipation #14 11/23/21 (Colace) caps nitrofurantoin 100 mg PO BID uti 7 days #14 caps 11/23/21 monohydrate/macrocrystals 100 mg capsule (Macrobid) ondansetron 4 mg disintegrating 4 mg PO Q6H nausea/vomiting #14 11/23/21 tablet tabs cephalexin 500 mg capsule 500 mg PO Q8H 7 days #21 caps 08/02/22 Allergies Allergy/AdvReac Type Severity Reaction Status Date / Time aspirin [ASA] Allergy Intermediate RASH, Verified 11/23/21 08:01 nausea and vomiting ibuprofen [IBUPROFEN] Allergy Intermediate RASH Verified 11/23/21 08:01 nicotine Allergy Intermediate RASH FROM Verified 11/23/21 08:01 NICOTINE PATCH, nausea and vomiting ketorolac [From TORADOL] Allergy Mild RAPID HR Verified 11/23/21 08:01 AND HIVES Review of Systems Review of Systems Constitutional: No Fever, No Chills Cardiovascular: No Chest Pain, No SOB Respiratory: No Cough, No Dyspnea Gastrointestinal: Positive Nausea, positive Vomiting, No Diarrhea, positive bilateral flank Pain Genitourinary: No Dysuria, positive Hematuria Musculoskeletal: No joint pain, No Myalgias, No Joint Swelling Skin: No Skin lacerations, No rash Neuro: No Weakness, No Numbness, No Paresthesias No Dizziness, No Headache Yes all other systems are reviewed and are negative [facility] Past Medical History Attestation statement: The following information was validated with the patient. Source: old records reviewed Medical History Anemia delivery delivered DVT (deep venous thrombosis) HTN (hypertension) Hypercholesteremia Kidney stones Surgical History Total knee replacement status Social History Social History Alcohol intake: current Alcohol intake frequency: holidays/special occasions only Patient Tobacco Use Status: Current everyday Tobacco user Advance Directives: No Physical Exam ED Vital Signs: BMI result Body Mass Index 24.0 Appearance: Alert. Oriented X3. Crying upon arrival. Eyes: Pupils equal, round and reactive to light. ENT: Pharynx normal. Neck: Normal inspection. Neck supple. CVS: Normal heart rate and rhythm. Pulses normal. Respiratory: No respiratory distress. Breath sounds normal. Abdomen: Soft and diffusely tender. No rigidity or distention. Skin: Skin warm and dry. Normal skin color. Normal skin turgor. Extremities: No lower extremity edema. Gait will bounce well coordinated. Neuro: No motor deficit. No sensory deficit. Cranial nerves 2-12 intact. Course Course Course Narrative: 56-year-old female presents with out of bilateral flank pain, and hematuria. States that she has bilateral kidney stones. Pain started several hours ago, and is associated with nausea and vomiting. A review of records indicates that this patient presents to this facility on a regular basis. While she does have a history of renal carcinoma, recurrent UTIs, and kidney stones, I feel that pain management should be Tylenol at this time. Patient did refuse Tylenol, considering patient's diffuse abdominal pain to minimal palpation, will order CT scan of abdomen and pelvis. Labs are unremarkable, WBC 6.4, H&H 10.8/33 which is consistent with her prior values. Chemistries are normal. Urinalysis positive for leukocyte esterase and bacteria. Will treat with cephalexin 500 mg every 8 hours. Influenza COVID RSV are negative. Patient is requesting morphine, however I do not feel that morphine is appropriate at this time. Patient also requesting prescription for home use, which I also do not feel is appropriate. Patient is dissatisfied with care, Medical Decision Making Differential Diagnosis Differential Diagnoses: The differential diagnosis associated with the presentation includes Lab Data MDM Lab Attestation statement: I reviewed the patient's lab results. 08/02/22 00:17 08/02/22 00:17 Labs: Lab Results 08/02/22 08/02/22 08/02/22 Range/Units 00:17 00:17 00:17 WBC 6.4 (4.8-10.8) X10*3/uL RBC 3.96 L (4.20-5.50) X10*6/uL Hgb 10.8 L (12.0-16.0) g/dl Hct 33.0 L (37.0-47.0) % MCV 83.3 (80.0-98.0) fL MCH 27.3 (27.0-33.0) pg MCHC 32.7 (31.0-35.0) g/dl RDW 14.2 (11.0-16.0) % Plt Count 202 D (160-400) X10*3/uL MPV 9.2 L (9.4-12.3) fL Immature Gran % (Auto) 0.2 (0.0-0.4) % Neut % (Auto) 68.5 (45-73) % Lymph % (Auto) 21.9 (20-40) % [place] % (Auto) 8.6 (2-11) % Eos % (Auto) 0.5 (0-4) % Baso % (Auto) 0.3 (0-2) % Lymph # (Auto) 1.4 (1.2-4.9) X10*3/uL [place] # (Auto) 0.6 (0.1-1.2) X10*3/uL Eos # (Auto) 0.0 (0.0-0.4) X10*3/uL Baso # (Auto) 0.0 (0.0-0.2) X10*3/uL Abs Immat Gran (auto) 0.01 (0.00-0.03) X10*3/uL Absolute Neuts (auto) 4.4 (2.0-8.3) x10*3/uL Absolute Nucleated RBC 0.000 (0.0-0.012) X10*3/uL Nucleated RBC % (auto) 0.0 (0.0-0.2) /100WBC Sodium 140 (135-145) mmol/L Potassium 3.9 (3.3-5.1) mmol/L Chloride 105 (96-108) mmol/L Carbon Dioxide 24 (22-29) mmol/L Anion Gap 15 (12-20) BUN 14 (9-16) mg/dL Creatinine 0.75 (0.5-1.4) mg/dL Estim Creat Clear Calc 71.4 Estimated GFR > 60 Random Glucose 119 H (60-115) mg/dL Calcium 9.0 (8.4-10.2) mg/dL Urine Color Urine Appearance Urine pH (5.0-9.0) Ur Specific [place] (1.005-1.025) Urine Protein (Neg-Trace) mg/dL Urine Glucose (UA) (Negative) mg/dL Urine Ketones (Negative) mg/dL Urine Blood (Negative) Urine Nitrite (Negative) Ur Leukocyte Esterase (Negative) Urine RBC (0-2) /HPF Urine WBC (0-5) /HPF Ur Squamous Epith Cells (0-2) /HPF Urine Bacteria (None Seen) Hyaline Casts (0-2) /LPF Influenza Type A (PCR) NEGATIVE (Negative) Influenza Type B (PCR) NEGATIVE (Negative) RSV RNA Qual (PCR) NEGATIVE (Negative) SARS-CoV-2 RNA (RT-PCR) NEGATIVE (Negative) 08/02/22 Range/Units 00:29 WBC (4.8-10.8) X10*3/uL RBC (4.20-5.50) X10*6/uL Hgb (12.0-16.0) g/dl Hct (37.0-47.0) % MCV (80.0-98.0) fL MCH (27.0-33.0) pg MCHC (31.0-35.0) g/dl RDW (11.0-16.0) % Plt Count (160-400) X10*3/uL MPV (9.4-12.3) fL Immature Gran % (Auto) (0.0-0.4) % Neut % (Auto) (45-73) % Lymph % (Auto) (20-40) % [place] % (Auto) (2-11) % Eos % (Auto) (0-4) % Baso % (Auto) (0-2) % Lymph # (Auto) (1.2-4.9) X10*3/uL [place] # (Auto) (0.1-1.2) X10*3/uL Eos # (Auto) (0.0-0.4) X10*3/uL Baso # (Auto) (0.0-0.2) X10*3/uL Abs Immat Gran (auto) (0.00-0.03) X10*3/uL Absolute Neuts (auto) (2.0-8.3) x10*3/uL Absolute Nucleated RBC (0.0-0.012) X10*3/uL Nucleated RBC % (auto) (0.0-0.2) /100WBC Sodium (135-145) mmol/L Potassium (3.3-5.1) mmol/L Chloride (96-108) mmol/L Carbon Dioxide (22-29) mmol/L Anion Gap (12-20) BUN (9-16) mg/dL Creatinine (0.5-1.4) mg/dL Estim Creat Clear Calc Estimated GFR Random Glucose (60-115) mg/dL Calcium (8.4-10.2) mg/dL Urine Color Yellow Urine Appearance Turbid Urine pH 6.5 (5.0-9.0) Ur Specific [place] 1.020 (1.005-1.025) Urine Protein 30 (1+) H (Neg-Trace) mg/dL Urine Glucose (UA) Negative (Negative) mg/dL Urine Ketones Negative (Negative) mg/dL Urine Blood Trace H (Negative) Urine Nitrite Negative (Negative) Ur Leukocyte Esterase Large (3+) H (Negative) Urine RBC 0-2 (0-2) /HPF Urine WBC >50 H (0-5) /HPF Ur Squamous Epith Cells 6-10 (0-2) /HPF Urine Bacteria 1+ (None Seen) Hyaline Casts 3-5 (0-2) /LPF Influenza Type A (PCR) (Negative) Influenza Type B (PCR) (Negative) RSV RNA Qual (PCR) (Negative) SARS-CoV-2 RNA (RT-PCR) (Negative) Independent Interpretation I performed an independent interpretation of an: CT Scan Radiology Impression Discussion of test interpretation with radiology: I have reviewed the radiologist's reading. Radiologist Impression: FINDINGS: LUNG BASES: The visualized lung bases are unremarkable.? LIVER, GALLBLADDER, AND BILIARY TREE: The liver is normal in size, shape, and attenuation. No focal hepatic lesion or biliary ductal dilatation is present. The gallbladder is unremarkable with no evidence of radiopaque gallstones, gallbladder wall thickening, or obvious pericholecystic inflammatory changes.? PANCREAS: Unremarkable.? SPLEEN: Unremarkable.? ADRENAL GLANDS: Unremarkable.? KIDNEYS AND URETERS: No hydronephrosis or obstructing calculus bilaterally. There are several bilateral renal calculi measuring up to 4 mm. Fat density structure in the upper right kidney measuring 1.3 cm is suspicious for an angiomyolipoma. BLADDER: Nearly empty and not adequately evaluated.? GASTROINTESTINAL TRACT: No evidence of bowel obstruction or significant wall thickening. Moderate to large volume of stool is present. Appendix appears collapsed. No free fluid or free air is seen. ABDOMINAL WALL: No significant hernia is appreciated.? LYMPH NODES: Normal. VASCULAR: Mild scattered atherosclerotic calcifications. PELVIC VISCERA: Unremarkable.? OSSEOUS STRUCTURES: There is facet arthropathy of the lower lumbar spine.? CT/CT abdomen pelvis wo IV con IMPRESSION: 1.? No hydronephrosis or obstructing calculus bilaterally. Several bilateral renal calculi measuring up to 4 mm. 2.? Moderate to large volume of stool. External Record Review External record reviewed: Outpatient record and Prior outpatient labs Prescription Management I considered prescription management with: Pain Medication (Tylenol Motrin) and Antibiotic Chronic Conditions Patient?s care impacted by: Hypertension Medications Administered Discontinued Medications Generic Name Dose Route Start Last Admin Trade Name Freq PRN Reason Stop Dose Admin Acetaminophen 650 mg 08/01/22 23:49 08/02/22 01:14 Acetaminophen 325 Mg Tablet PO 08/01/22 23:50 Not Given ONCE ONE Sodium Chloride 1,000 mls @ 999 mls/hr 08/01/22 23:45 08/02/22 00:11 Ns IVCONT 08/02/22 00:45 999 mls/hr .Q1H1M ADELA Administration Ondansetron HCl 4 mg 08/01/22 23:49 08/02/22 00:11 Ondansetron Hcl 4 Mg/2 Ml Vial IVPUSH 08/01/22 23:50 4 mg ONCE ONE Administration Discharge Plan Discharge Clinical Impression: Recurrent UTI, Kidney stones Patient Disposition: Home, Self-Care Instructions: Kidney Stones (ED), Urinary Tract Infection in Women (ED) Additional Instructions: You were evaluated for bilateral flank pain. CT scan indicates chronic kidney stones that have not changed, and constipation. Urinalysis positive for UTI. Please take Keflex 500 mg every 8 hours for 7 days. Drink plenty of fluids. Take Tylenol and Motrin as needed for pain management. Thank you for choosing this emergency department for evaluation. Please follow-up with primary care physician as needed. Return to the emergency department for any new, concerning, or worsening symptoms. Prescriptions: New cephalexin 500 mg capsule 500 mg PO Q8H 7 Days Qty: 21 0RF No Action quetiapine 25 mg tablet 1 tab PO BID PRN (Reason: anxiety) atorvastatin 10 mg tablet 1 tab PO DAILY polyvinyl alcohol [Artificial Tears (polyvin alc)] 1.4 % drops 1 drp ophthalmic (eye) TID ondansetron HCl 4 mg tablet 1 tab PO Q8H PRN (Reason: nausea) gabapentin 400 mg capsule 1 cap PO BEDTIME topiramate 25 mg tablet 1 tab PO BID clonidine HCl 0.2 mg tablet 1 tab PO BID PRN (Reason: panic attack) cyanocobalamin (vitamin B-12) 500 mcg tablet 1 tab PO DAILY ascorbic acid (vitamin C) 250 mg tablet 1 tab PO BID amlodipine 10 mg tablet 1 tab PO DAILY mirtazapine 30 mg tablet 1 tab PO BEDTIME mirtazapine 30 mg tablet 1 tab PO BEDTIME docusate sodium 100 mg capsule 1 - 2 cap PO BEDTIME PRN (Reason: constipation) gabapentin 100 mg capsule 1 cap PO TID PRN (Reason: anxiety) zolpidem 10 mg tablet 1 tab PO BEDTIME PRN (Reason: insomnia) albuterol sulfate [ProAir HFA] 90 mcg/actuation HFA aerosol inhaler 2 puff PO Q4-6H PRN (Reason: dyspnea) fluoxetine 20 mg capsule 3 cap PO QAM loratadine 10 mg tablet 1 tab PO DAILY loratadine 10 mg tablet 1 tab PO DAILY tramadol 50 mg tablet 50 mg PO Q8H PRN (Reason: pain) Qty: 3 0RF morphine 15 mg tablet 15 mg PO BID PRN (Reason: pain) Qty: 8 0RF cefuroxime axetil 250 mg tablet 250 mg PO BID 7 Days Qty: 14 0RF nitrofurantoin monohyd/m-cryst [Macrobid] 100 mg capsule 100 mg PO BID Qty: 14 0RF Rx Instructions: must administer with a meal/food phenazopyridine [Pyridium] 100 mg tablet 100 mg PO TID PRN (Reason: pain) Qty: 6 0RF sennosides [senna] 8.6 mg tablet 8.6 mg PO BEDTIME Qty: 14 0RF docusate sodium [Colace] 100 mg capsule 100 mg PO BID Qty: 20 0RF docusate sodium [Colace] 100 mg capsule 100 mg PO BID PRN (Reason: Constipation) Qty: 14 0RF ondansetron 4 mg tablet,disintegrating 4 mg PO Q6H Qty: 14 0RF nitrofurantoin monohyd/m-cryst [Macrobid] 100 mg capsule 100 mg PO BID 7 Days Qty: 14 0RF Rx Instructions: must administer with a meal/food Referrals: Jim Wing MD [Physician] - 2 weeks (Recurrent UTIs kidney stones)
[2022-08-02] MEDS: ondansetron HCL 4 MG/2 ML VIAL IVPUSH (00:11)
[2022-08-02] MEDS: 0.9 % Sodium Chloride 1,000 ML 999 ML IVCONT (00:11)
[2022-08-02 00:21] LABS: MANUAL DIFF FLAG NO
[2022-08-02 00:22] LABS: Basophils Percent Auto 0.3 % (0-2); Eosinophils Percent Auto 0.5 % (0-4); Hemoglobin 10.8 g/dl (12.0-16.0); Imm Gran Abs Auto 0.01 X10*3/uL (0.00-0.03); Imm Gran Pct Auto 0.2 % (0.0-0.4); Lymphocytes Absolute Auto 1.4 X10*3/uL (1.2-4.9); Lymphocytes Percent Auto 21.9 % (20-40); Mean Corpuscular HGB Conc 32.7 g/dl (31.0-35.0); Mean Corpuscular Hemoglobin 27.3 pg (27.0-33.0); Mean Corpuscular Volume 83.3 fL (80.0-98.0); Mean Platelet Volume 9.2 fL (9.4-12.3); Monocytes Absolute Auto 0.6 X10*3/uL (0.1-1.2); Monocytes Percent Auto 8.6 % (2-11); Neutrophils Absolute Auto 4.4 x10*3/uL (2.0-8.3); Neutrophils Percent Auto 68.5 % (45-73); Platelet Count 202 X10*3/uL (160-400); Red Blood Count 3.96 X10*6/uL (4.20-5.50); Red Cell Distribution Width 14.2 % (11.0-16.0); White Blood Count 6.4 X10*3/uL (4.8-10.8)
[2022-08-02 00:36] LABS: Anion Gap 15 (12-20); Blood Urea Nitrogen 14 mg/dL (9-16); Carbon Dioxide 24 mmol/L (22-29); Chloride 105 mmol/L (96-108); Creatinine Clr Calc Pharmacy 71.4; Estimated Glomerular Filt Rate > 60; Glucose Random 119 mg/dL (60-115); Potassium 3.9 mmol/L (3.3-5.1); Sodium 140 mmol/L (135-145)
[2022-08-02 00:41] LABS: Appearance Urine Turbid; Color Urine Yellow; Glucose Urine UA Negative (Negative); Leukocyte Esterase Urine Large (3+) (Negative); Nitrite Urine Negative (Negative); PH 6.5 (5.0-9.0); UMIC TRIGGER UACC YES; Urine Blood Trace (Negative); Urine Ketones Negative (Negative); Urine Protein 30 (1+) mg/dL (Neg-Trace)
[2022-08-02 00:50] LABS: Bacteria Urine 1+ (None Seen); RBC Urine 0-2 /HPF (0-2); UACC Culture Trigger YES; WBC Urine >50 /HPF (0-5)
[2022-08-02 01:13] LABS: Influenza A PCR NEGATIVE (Negative); Influenza B PCR NEGATIVE (Negative); Resp Syncy Virus RNA Qual PCR NEGATIVE (Negative); SARS COV2 PCR INHOUSE NEGATIVE (Negative)
[2022-08-02] MEDS: cephALEXin 500 MG CAPSULE PO (01:32)
== END 2022-08-02 01:45 | disposition home or self-care (01) ==
PROVIDERS: Nurse Practitioner Family; Emergency Provider Emergency Medicine; PCP Family Medicine
DX: N20.0 Calculus of kidney (principal); N39.0 Urinary tract infection, site not specified; Z20.822 Contact with and (suspected) exposure to COVID-19; Z20.828 Contact with and (suspected) exposure to other viral communicable diseases; Z87.442 Personal history of urinary calculi; Z87.440 Personal history of urinary (tract) infections; Z79.02 Long term (current) use of antithrombotics/antiplatelets; Z79.899 Other long term (current) drug therapy
CPT/HCPCS: 0241U; 74176; 80048; 81001; 85025; 87086; 96374; 99284; J2405

== ENCOUNTER 2023-03-02 13:33 | Emergency (ER) | payer MEDICAID, SELFPAY ==
--- NOTE | ~2023-03-02 | CT_ITS ---
EXAMINATION: CT ABDOMEN AND PELVIS WITHOUT CONTRAST CLINICAL INFORMATION: Right flank pain and hematuria. COMPARISON: 08/02/2022 TECHNIQUE: Multidetector volumetric imaging was performed from the superior aspect of the liver through the pubic symphysis. Sagittal and coronal reformatted images were obtained on the technologist's workstation. This CT examination was performed using dose optimization techniques as appropriate, variously including the following: *Automated exposure control *Adjustment of mA and/or kV according to patient size (this includes techniques or standardized protocols for targeted exams where dose is matched to indication/reason for exam; i.e. extremities or head) *Use of iterative reconstruction technique DLP: 508 mGy-cm FINDINGS: LUNG BASES: The visualized lung bases are unremarkable. LIVER, GALLBLADDER, AND BILIARY TREE: The noncontrast liver is normal in size and contour. No biliary ductal dilatation is present. The gallbladder is unremarkable with no evidence of radiopaque gallstones, gallbladder wall thickening, or obvious pericholecystic inflammatory changes. PANCREAS: Unremarkable. SPLEEN: Unremarkable. ADRENAL GLANDS: Unremarkable. KIDNEYS AND URETERS: The kidneys are symmetric in size. There are multiple bilateral renal calculi. No hydronephrosis or perinephric stranding. 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 BLADDER: Unremarkable. GASTROINTESTINAL TRACT: Small and large bowel loops are of normal caliber. No small bowel obstruction. Moderate fecal retention in the colon. ABDOMINAL WALL: No significant hernia is appreciated. LYMPH NODES: No bulky abdominal or pelvic lymphadenopathy. VASCULAR: Normal caliber abdominal aorta. PELVIC VISCERA: Anteverted uterus. Vaginal tampon is in place. OSSEOUS STRUCTURES: No destructive bone lesions. CT/CT abdomen pelvis wo IV con IMPRESSION: Nephrolithiasis without hydronephrosis.
[2023-03-02 13:45] VITALS: BP 153/79; BP 160/100; PULSE 78; PULSE 90; RESP 18; TEMP 36.8; O2SAT 96; O2SAT 99; BMI 26.4
[2023-03-02 13:49] VITALS: BP 153/79; PULSE 73; RESP 16; TEMP 36.8; O2SAT 99
[2023-03-02 14:01] LABS: MANUAL DIFF FLAG NO
[2023-03-02 14:03] LABS: Basophils Percent Auto 0.5 % (0-2); Eosinophils Absolute Auto 0.1 X10*3/uL (0.0-0.4); Eosinophils Percent Auto 1.6 % (0-4); Hematocrit 39.2 % (37.0-47.0); Hemoglobin 12.6 g/dl (12.0-16.0); Imm Gran Abs Auto 0.01 X10*3/uL (0.00-0.03); Imm Gran Pct Auto 0.3 % (0.0-0.4); Lymphocytes Absolute Auto 1.4 X10*3/uL (1.2-4.9); Lymphocytes Percent Auto 37.7 % (20-40); Mean Corpuscular HGB Conc 32.1 g/dl (31.0-35.0); Mean Corpuscular Hemoglobin 26.9 pg (27.0-33.0); Mean Corpuscular Volume 83.8 fL (80.0-98.0); Mean Platelet Volume 10.1 fL (9.4-12.3); Monocytes Absolute Auto 0.3 X10*3/uL (0.1-1.2); Monocytes Percent Auto 7.5 % (2-11); Neutrophils Absolute Auto 1.9 x10*3/uL (2.0-8.3); Neutrophils Percent Auto 52.4 % (45-73); Platelet Count 264 X10*3/uL (160-400); Red Blood Count 4.68 X10*6/uL (4.20-5.50); Red Cell Distribution Width 14.4 % (11.0-16.0); White Blood Count 3.7 X10*3/uL (4.8-10.8)
[2023-03-02] MEDS: 0.9 % Sodium Chloride 1,000 ML 999 ML IV (14:05)
[2023-03-02] MEDS: ondansetron HCL 4 MG/2 ML VIAL IVPUSH (14:05)
[2023-03-02] MEDS: HYDROmorphone HCl 1 MG/ML SYRINGE IVPUSH (14:05)
--- NOTE | 2023-03-02 14:17 | PC.NURSE ---
pt a&ox3, vss, nsr on the athletic monitor. pt tearful d/t 10/10 r flank pain that radiates to RLQ. pt verbalizes n/v/dysuria/hematuria. 22g IV placed in the right hand w/o complications. labs drawn and sent to lab. medications and IVF administered per provider order. call vazquez placed within reach.
--- NOTE | 2023-03-02 14:37 | PC.NURSE ---
pt currently being transferred to CT.
[2023-03-02 14:42] LABS: Alanine Aminotransferase 27 U/L (0-31); Albumin Level 4.4 g/dL (3.5-5.0); Alkaline Phosphatase 106 U/L (39-117); Anion Gap 11 (12-20); Aspartate Amino Transferase 25 U/L (5-31); Bilirubin Total 0.3 mg/dL (0.0-1.0); Blood Urea Nitrogen 18 mg/dL (9-16); Calcium 9.3 mg/dL (8.4-10.2); Carbon Dioxide 25 mmol/L (22-29); Chloride 111 mmol/L (96-108); Creatinine Clr Calc Pharmacy 75.8; Estimated Glomerular Filt Rate > 60; Glucose Random 93 mg/dL (60-115); Potassium 4.1 mmol/L (3.3-5.1); Sodium 143 mmol/L (135-145); Total Protein 7.5 g/dL (6.5-8.0)
--- NOTE | 2023-03-02 14:46 | ED_ITS ---
HPI - General Adult General Chief complaint: General Medical Stated complaint: ABD PAIN Time Seen by Provider: 03/02/23 13:40 Source: patient Limitations: no limitations History of Present Illness HPI narrative: with 57-year-old female presents with right flank pain. Symptoms started 3 days ago. The pain is severe. It is constant with exacerbating features. Associated with nausea vomiting. She has had no fevers or chills. She has hematuria. There is no clear relieving or exacerbating features. She denies any diarrhea constipation. The pain is described as sharp and aching in nature. Related Data Home Medications Medication Instructions Recorded Confirmed albuterol sulfate 90 mcg/actuation 2 puff PO Q4-6H PRN dyspnea 11/26/20 11/26/20 aerosol inhaler (ProAir HFA) amlodipine 10 mg tablet 1 tab PO DAILY 11/26/20 11/26/20 ascorbic acid (vitamin C) 250 mg 1 tab PO BID 11/26/20 11/26/20 tablet atorvastatin 10 mg tablet 1 tab PO DAILY 11/26/20 11/26/20 clonidine HCl 0.2 mg tablet 1 tab PO BID PRN panic attack 11/26/20 11/26/20 cyanocobalamin (vitamin B-12) 500 1 tab PO DAILY 11/26/20 11/26/20 mcg tablet docusate sodium 100 mg capsule 1 - 2 cap PO BEDTIME PRN 11/26/20 11/26/20 constipation fluoxetine 20 mg capsule 3 cap PO QAM 11/26/20 11/26/20 gabapentin 100 mg capsule 1 cap PO TID PRN anxiety 11/26/20 11/26/20 gabapentin 400 mg capsule 1 cap PO BEDTIME 11/26/20 11/26/20 loratadine 10 mg tablet 1 tab PO DAILY 11/26/20 11/26/20 loratadine 10 mg tablet 1 tab PO DAILY 11/26/20 11/26/20 mirtazapine 30 mg tablet 1 tab PO BEDTIME 11/26/20 11/26/20 mirtazapine 30 mg tablet 1 tab PO BEDTIME 11/26/20 11/26/20 ondansetron HCl 4 mg tablet 1 tab PO Q8H PRN nausea 11/26/20 11/26/20 polyvinyl alcohol 1.4 % eye drops 1 drp ophthalmic (eye) TID 11/26/20 11/26/20 (Artificial Tears (polyvinyl alcohol)) quetiapine 25 mg tablet 1 tab PO BID PRN anxiety 11/26/20 11/26/20 topiramate 25 mg tablet 1 tab PO BID 11/26/20 11/26/20 zolpidem 10 mg tablet 1 tab PO BEDTIME PRN insomnia 11/26/20 11/26/20 Previous Rx's Medication Instructions Recorded tramadol 50 mg tablet 50 mg PO Q8H PRN pain #3 tabs 11/26/20 nitrofurantoin 100 mg PO BID #14 caps 05/26/21 monohydrate/macrocrystals 100 mg capsule (Macrobid) phenazopyridine 100 mg tablet 100 mg PO TID PRN pain 6 doses #6 05/26/21 (Pyridium) tabs cefuroxime axetil 250 mg tablet 250 mg PO BID 7 days #14 tabs 07/15/21 morphine 15 mg immediate release 15 mg PO BID PRN pain #8 tabs 07/15/21 tablet docusate sodium 100 mg capsule 100 mg PO BID #20 caps 07/21/21 (Colace) sennosides 8.6 mg tablet (senna) 8.6 mg PO BEDTIME #14 tabs 07/21/21 docusate sodium 100 mg capsule 100 mg PO BID PRN Constipation #14 11/23/21 (Colace) caps nitrofurantoin 100 mg PO BID uti 7 days #14 caps 11/23/21 monohydrate/macrocrystals 100 mg capsule (Macrobid) ondansetron 4 mg disintegrating 4 mg PO Q6H nausea/vomiting #14 11/23/21 tablet tabs cephalexin 500 mg capsule 500 mg PO Q8H 7 days #21 caps 08/02/22 Allergies Allergy/AdvReac Type Severity Reaction Status Date / Time aspirin [ASA] Allergy Intermediate RASH, Verified 03/02/23 13:45 nausea and vomiting ibuprofen [IBUPROFEN] Allergy Intermediate RASH Verified 03/02/23 13:45 nicotine Allergy Intermediate RASH FROM Verified 03/02/23 13:45 NICOTINE PATCH, nausea and vomiting ketorolac [From TORADOL] Allergy Mild RAPID HR Verified 03/02/23 13:45 AND HIVES Review of Systems Review of Systems: CONSTITUTIONAL: Denies weight loss, fever and chills. HEENT: Denies changes in vision and hearing. RESPIRATORY: Denies SOB and cough. CV: Denies palpitations no CP. GI: Denies abdominal pain, nausea, vomiting and diarrhea. : Denies dysuria and urinary frequency. MSK: Denies myalgia and joint pain. SKIN: Denies rash and pruritus. NEUROLOGICAL: Denies headache and syncope. PSYCHIATRIC: Denies recent changes in mood. Denies anxiety and depression. All other ROS are negative unless in HPI PMFSH Past Medical History Medical History Anemia delivery delivered DVT (deep venous thrombosis) HTN (hypertension) Hypercholesteremia Kidney stones Surgical History Total knee replacement status Social History Social History Alcohol intake: never Patient Tobacco Use Status: Current everyday Tobacco user Smoked in Last 30 Days: Yes Use of substances other than those prescribed or required for medical reasons: No Advance Directives: No Patient : No Physical Exam ED Vital Signs: Vital Signs - 24 hr 03/02/23 13:45 03/02/23 13:49 Temperature 98.2 F 98.2 F Pulse Rate 78 73 Respiratory Rate 18 16 Blood Pressure 153/79 H 153/79 H Pulse Oximetry 99 99 Oxygen Delivery Method Room Air Room Air BMI result Body Mass Index 26.4 GEN: Well developed, no acute distress, alert, oriented HEENT: Normocephalic, atraumatic, normal external ears, nose appears normal Eyes: Normal to appearance Neck: Supple, no lymphadenopathy Respiratory: Talks in complete sentences, no respiratory distress Extremities: No clubbing cyanosis or edema Neurologic: No focal neurologic deficits, cranial nerves 2-12 intact, gait normal Skin: No rash Psych: No SI or HI, pressured speech Medications Administered Generic Name Dose Route Start Last Admin Trade Name Freq PRN Reason Stop Dose Admin Hydromorphone HCl 1 mg 03/02/23 13:44 03/02/23 14:05 Hydromorphone Hcl 1 Mg/Ml Syringe IVPUSH 1 mg Q2H PRN Administration Pain, Severe (Pain Scale 7-10) Protocol Discontinued Medications Generic Name Dose Route Start Last Admin Trade Name Freq PRN Reason Stop Dose Admin Sodium Chloride 1,000 mls @ 999 mls/hr 03/02/23 13:45 03/02/23 14:05 Ns IV 03/02/23 14:45 999 mls/hr .Q1H1M ADELA Administration Ondansetron HCl 4 mg 03/02/23 13:44 03/02/23 14:05 Ondansetron Hcl 4 Mg/2 Ml Vial IVPUSH 03/02/23 13:45 4 mg ONCE ONE Administration Medical Decision Making Medical Decision Making [facility] Narrative: 57-year-old female presents with pressured speech, adjustment reaction, possible bipolar. Will medically. The patient. Will re-evaluate the patient. Differential diagnosis includes adjustment reaction, depression, anxiety, PTSD, substance abuse. Differential Diagnosis Differential Diagnoses: The differential diagnosis associated with the presentation includes ( See above) Lab Data [facility] Lab Attestation statement: I reviewed the patient's lab results. 03/02/23 13:57 03/02/23 14:21 Labs: Lab Results 03/02/23 03/02/23 Range/Units 13:57 14:21 WBC 3.7 L (4.8-10.8) X10*3/uL RBC 4.68 (4.20-5.50) X10*6/uL Hgb 12.6 (12.0-16.0) g/dl Hct 39.2 (37.0-47.0) % MCV 83.8 (80.0-98.0) fL MCH 26.9 L (27.0-33.0) pg MCHC 32.1 (31.0-35.0) g/dl RDW 14.4 (11.0-16.0) % Plt Count 264 D (160-400) X10*3/uL MPV 10.1 (9.4-12.3) fL Immature Gran % (Auto) 0.3 (0.0-0.4) % Neut % (Auto) 52.4 (45-73) % Lymph % (Auto) 37.7 (20-40) % [place] % (Auto) 7.5 (2-11) % Eos % (Auto) 1.6 (0-4) % Baso % (Auto) 0.5 (0-2) % Lymph # (Auto) 1.4 (1.2-4.9) X10*3/uL [place] # (Auto) 0.3 (0.1-1.2) X10*3/uL Eos # (Auto) 0.1 (0.0-0.4) X10*3/uL Baso # (Auto) 0.0 (0.0-0.2) X10*3/uL Abs Immat Gran (auto) 0.01 (0.00-0.03) X10*3/uL Absolute Neuts (auto) 1.9 L (2.0-8.3) x10*3/uL Absolute Nucleated RBC 0.000 (0.0-0.012) X10*3/uL Nucleated RBC % (auto) 0.0 (0.0-0.2) /100WBC Sodium 143 (135-145) mmol/L Potassium 4.1 (3.3-5.1) mmol/L Chloride 111 H (96-108) mmol/L Carbon Dioxide 25 (22-29) mmol/L Anion Gap 11 L (12-20) BUN 18 H (9-16) mg/dL Creatinine 0.69 (0.5-1.4) mg/dL Estim Creat Clear Calc 75.8 Estimated GFR > 60 Random Glucose 93 (60-115) mg/dL Calcium 9.3 (8.4-10.2) mg/dL Total Bilirubin 0.3 (0.0-1.0) mg/dL AST 25 (5-31) U/L ALT 27 (0-31) U/L Alkaline Phosphatase 106 (39-117) U/L Total Protein 7.5 (6.5-8.0) g/dL Albumin 4.4 (3.5-5.0) g/dL Independent Historian Clinical information obtained from an independent historian. History obtained from or confirmed by: EMS Prescription Management I considered prescription management with: Other ( antihypertensive, anxiety medications) Discharge Plan Discharge Clinical Impression: Adjustment reaction, Hypertension Patient Disposition: Still a Patient Prescriptions: No Action quetiapine 25 mg tablet 1 tab PO BID PRN (Reason: anxiety) atorvastatin 10 mg tablet 1 tab PO DAILY polyvinyl alcohol [Artificial Tears (polyvin alc)] 1.4 % drops 1 drp ophthalmic (eye) TID ondansetron HCl 4 mg tablet 1 tab PO Q8H PRN (Reason: nausea) gabapentin 400 mg capsule 1 cap PO BEDTIME topiramate 25 mg tablet 1 tab PO BID clonidine HCl 0.2 mg tablet 1 tab PO BID PRN (Reason: panic attack) cyanocobalamin (vitamin B-12) 500 mcg tablet 1 tab PO DAILY ascorbic acid (vitamin C) 250 mg tablet 1 tab PO BID amlodipine 10 mg tablet 1 tab PO DAILY mirtazapine 30 mg tablet 1 tab PO BEDTIME mirtazapine 30 mg tablet 1 tab PO BEDTIME docusate sodium 100 mg capsule 1 - 2 cap PO BEDTIME PRN (Reason: constipation) gabapentin 100 mg capsule 1 cap PO TID PRN (Reason: anxiety) zolpidem 10 mg tablet 1 tab PO BEDTIME PRN (Reason: insomnia) albuterol sulfate [ProAir HFA] 90 mcg/actuation HFA aerosol inhaler 2 puff PO Q4-6H PRN (Reason: dyspnea) fluoxetine 20 mg capsule 3 cap PO QAM loratadine 10 mg tablet 1 tab PO DAILY loratadine 10 mg tablet 1 tab PO DAILY tramadol 50 mg tablet 50 mg PO Q8H PRN (Reason: pain) Qty: 3 0RF morphine 15 mg tablet 15 mg PO BID PRN (Reason: pain) Qty: 8 0RF cefuroxime axetil 250 mg tablet 250 mg PO BID 7 Days Qty: 14 0RF nitrofurantoin monohyd/m-cryst [Macrobid] 100 mg capsule 100 mg PO BID Qty: 14 0RF Rx Instructions: must administer with a meal/food phenazopyridine [Pyridium] 100 mg tablet 100 mg PO TID PRN (Reason: pain) Qty: 6 0RF sennosides [senna] 8.6 mg tablet 8.6 mg PO BEDTIME Qty: 14 0RF docusate sodium [Colace] 100 mg capsule 100 mg PO BID Qty: 20 0RF docusate sodium [Colace] 100 mg capsule 100 mg PO BID PRN (Reason: Constipation) Qty: 14 0RF ondansetron 4 mg tablet,disintegrating 4 mg PO Q6H Qty: 14 0RF nitrofurantoin monohyd/m-cryst [Macrobid] 100 mg capsule 100 mg PO BID 7 Days Qty: 14 0RF Rx Instructions: must administer with a meal/food cephalexin 500 mg capsule 500 mg PO Q8H 7 Days Qty: 21 0RF
[2023-03-02 15:23] VITALS: BP 129/44; PULSE 60; RESP 16; TEMP 36.7; O2SAT 97
--- NOTE | 2023-03-02 15:25 | PC.NURSE ---
pt a&ox3, vss, nsr on the manager monitoring. pt verbalizing no change in pain level post medication administration - still rating r flank/RLQ pain at a 8-9/10. urine specimen obtained and sent to lab. pt's IVF still hung and running. pt resting comfortably with the lights dimmed while watching television. call vazquez placed within reach.
[2023-03-02 16:05] LABS: Appearance Urine Clear; Color Urine Orange; Glucose Urine UA Negative (Negative); Leukocyte Esterase Urine Small (1+) (Negative); Nitrite Urine Negative (Negative); UMIC TRIGGER UACC YES; Urine Blood Large (3+) (Negative); Urine Ketones Negative (Negative); Urine Protein 30 (1+) mg/dL (Neg-Trace)
[2023-03-02 16:07] LABS: Bacteria Urine None Seen (None Seen); Hyaline Casts Urine 0-2 /LPF (0-2); RBC Urine >20 /HPF (0-2); Squamous Epithelial Cell Urine 0-2 /HPF (0-2); UACC Culture Trigger YES; WBC Urine 0-5 /HPF (0-5)
== END 2023-03-02 16:27 | disposition home or self-care (01) ==
PROVIDERS: Emergency Provider Emergency Medicine; PCP Family Medicine
DX: N20.0 Calculus of kidney (principal); F43.20 Adjustment disorder, unspecified; I10 Essential (primary) hypertension; D64.9 Anemia, unspecified; F17.200 Nicotine dependence, unspecified, uncomplicated; Z79.899 Other long term (current) drug therapy
CPT/HCPCS: 36415; 74176; 80053; 81001; 81003; 85025; 87086; 96361; 96374; 96375; 99284; J1170; J2405

== ENCOUNTER 2023-04-26 04:38 | Emergency (ER) | payer MEDICAID, SELFPAY ==
--- NOTE | ~2023-04-26 | CT_ITS ---
EXAMINATION: CT ABDOMEN AND PELVIS WITH CONTRAST CLINICAL INFORMATION: Right flank and upper quadrant pain COMPARISON: 03/02/2023 TECHNIQUE: Multidetector volumetric images were obtained from the superior aspect of the liver through the pubic symphysis following administration 85 mL of Omnipaque 350 intravenous contrast. Sagittal and coronal reformatted images were obtained on the technologist's workstation. Oral contrast: No This CT examination was performed using dose optimization techniques as appropriate, variously including the following: *Automated exposure control *Adjustment of mA and/or kV according to patient size (this includes techniques or standardized protocols for targeted exams where dose is matched to indication/reason for exam; i.e. extremities or head) *Use of iterative reconstruction technique DLP: 534 mGy-cm FINDINGS: LUNG BASES: The visualized lung bases are unremarkable. LIVER, GALLBLADDER, AND BILIARY TREE: The liver is normal in size, shape, and attenuation. Tiny hypodensity adjacent to the gallbladder is suggestive of a cyst. No biliary ductal dilatation is present. The gallbladder is unremarkable with no evidence of radiopaque gallstones, gallbladder wall thickening, or obvious pericholecystic inflammatory changes. PANCREAS: Unremarkable. SPLEEN: Unremarkable. ADRENAL GLANDS: Unremarkable. KIDNEYS AND URETERS: Bilateral nephrograms are symmetric. No hydronephrosis or obstructing calculus identified. A 1.3 cm fat density focus in the right upper pole is most consistent with a benign angiomyolipoma. There are several scattered bilateral renal calculi measuring up to 5 mm on the left. BLADDER: Unremarkable. GASTROINTESTINAL TRACT: No evidence of bowel obstruction or significant wall thickening. The appendix is unremarkable. No free fluid or free air is seen. ABDOMINAL WALL: No significant hernia is appreciated. LYMPH NODES: Normal. VASCULAR: Mild atherosclerotic calcification. PELVIC VISCERA: Unremarkable. OSSEOUS STRUCTURES: Unremarkable. CT/CT abdomen pelvis w IV con IMPRESSION: 1. No acute findings identified in the abdomen/pelvis. 2. Scattered bilateral renal calculi without hydronephrosis.
[2023-04-26 04:45] VITALS: BP 152/80; PULSE 91; RESP 18; TEMP 36.8; O2SAT 98; BMI 27.6
[2023-04-26 05:16] LABS: Basophils Percent Auto 0.3 % (0-2); Eosinophils Absolute Auto 0.1 X10*3/uL (0.0-0.4); Hematocrit 36.7 % (37.0-47.0); Hemoglobin 11.6 g/dl (12.0-16.0); Imm Gran Abs Auto 0.02 X10*3/uL (0.00-0.03); Imm Gran Pct Auto 0.3 % (0.0-0.4); Lymphocytes Absolute Auto 2.2 X10*3/uL (1.2-4.9); Lymphocytes Percent Auto 33.1 % (20-40); MANUAL DIFF FLAG NO; Mean Corpuscular HGB Conc 31.6 g/dl (31.0-35.0); Mean Corpuscular Hemoglobin 26.2 pg (27.0-33.0); Mean Corpuscular Volume 82.8 fL (80.0-98.0); Mean Platelet Volume 9.5 fL (9.4-12.3); Monocytes Absolute Auto 0.5 X10*3/uL (0.1-1.2); Monocytes Percent Auto 7.9 % (2-11); Neutrophils Absolute Auto 3.8 x10*3/uL (2.0-8.3); Neutrophils Percent Auto 57.4 % (45-73); Platelet Count 258 X10*3/uL (160-400); Red Blood Count 4.43 X10*6/uL (4.20-5.50); Red Cell Distribution Width 14.1 % (11.0-16.0); White Blood Count 6.7 X10*3/uL (4.8-10.8)
--- NOTE | 2023-04-26 05:28 | PC.NURSE ---
Pt ambulated with a steady gait to room, Pt AOx3, Pt reporting 10/10 constant lower abdominal pain that radiates to the right flank x2 days. Reporting n/v, denies diarrhea. Pt reports going [employer] [facility] last year for an inflamed appendix that did not get removed, pt states it feels exactly the same. Pt denies burning and pain with urination. denies CP/SOB. Bowel sounds heard in all 4 quadrants, tender on palpation. IV line placed, blood collected and sent to lab. Pt waiting for provider, and CT scan. HX of kidney stones.
[2023-04-26 05:31] LABS: Alanine Aminotransferase 30 U/L (0-31); Albumin Level 4.5 g/dL (3.5-5.0); Alkaline Phosphatase 113 U/L (39-117); Anion Gap 15 (12-20); Aspartate Amino Transferase 31 U/L (5-31); Bilirubin Total 0.4 mg/dL (0.0-1.0); Blood Urea Nitrogen 17 mg/dL (9-16); Calcium 9.3 mg/dL (8.4-10.2); Carbon Dioxide 20 mmol/L (22-29); Chloride 109 mmol/L (96-108); Creatinine Clr Calc Pharmacy 78.2; Estimated Glomerular Filt Rate > 60; Glucose Random 113 mg/dL (60-115); Potassium 3.5 mmol/L (3.3-5.1); Sodium 140 mmol/L (135-145); Total Protein 7.9 g/dL (6.5-8.0)
--- NOTE | 2023-04-26 05:32 | ED.ABDPAIN ---
HPI - Abdominal Pain General Chief Complaint: Abdominal Pain Stated Complaint: Abd pain Time Seen by Provider: 04/26/23 05:20 Source: patient Mode of arrival: ambulatory History of Present Illness HPI narrative: 57[facility] of right flank/right lower quadrant pain that she states has been ongoing since Monday and she reports a history of kidney stones. In addition, patient states that she was recently treated at [facility] non operatively for appendicitis Related Data Home Medications Medication Instructions Recorded Confirmed albuterol sulfate 90 mcg/actuation 2 puff PO Q4-6H PRN dyspnea 11/26/20 11/26/20 aerosol inhaler (ProAir HFA) amlodipine 10 mg tablet 1 tab PO DAILY 11/26/20 11/26/20 ascorbic acid (vitamin C) 250 mg 1 tab PO BID 11/26/20 11/26/20 tablet atorvastatin 10 mg tablet 1 tab PO DAILY 11/26/20 11/26/20 clonidine HCl 0.2 mg tablet 1 tab PO BID PRN panic attack 11/26/20 11/26/20 cyanocobalamin (vitamin B-12) 500 1 tab PO DAILY 11/26/20 11/26/20 mcg tablet docusate sodium 100 mg capsule 1 - 2 cap PO BEDTIME PRN 11/26/20 11/26/20 constipation fluoxetine 20 mg capsule 3 cap PO QAM 11/26/20 11/26/20 gabapentin 100 mg capsule 1 cap PO TID PRN anxiety 11/26/20 11/26/20 gabapentin 400 mg capsule 1 cap PO BEDTIME 11/26/20 11/26/20 loratadine 10 mg tablet 1 tab PO DAILY 11/26/20 11/26/20 loratadine 10 mg tablet 1 tab PO DAILY 11/26/20 11/26/20 mirtazapine 30 mg tablet 1 tab PO BEDTIME 11/26/20 11/26/20 mirtazapine 30 mg tablet 1 tab PO BEDTIME 11/26/20 11/26/20 ondansetron HCl 4 mg tablet 1 tab PO Q8H PRN nausea 11/26/20 11/26/20 polyvinyl alcohol 1.4 % eye drops 1 drp ophthalmic (eye) TID 11/26/20 11/26/20 (Artificial Tears (polyvinyl alcohol)) quetiapine 25 mg tablet 1 tab PO BID PRN anxiety 11/26/20 11/26/20 topiramate 25 mg tablet 1 tab PO BID 11/26/20 11/26/20 zolpidem 10 mg tablet 1 tab PO BEDTIME PRN insomnia 11/26/20 11/26/20 Previous Rx's Medication Instructions Recorded tramadol 50 mg tablet 50 mg PO Q8H PRN pain #3 tabs 11/26/20 nitrofurantoin 100 mg PO BID #14 caps 05/26/21 monohydrate/macrocrystals 100 mg capsule (Macrobid) phenazopyridine 100 mg tablet 100 mg PO TID PRN pain 6 doses #6 05/26/21 (Pyridium) tabs cefuroxime axetil 250 mg tablet 250 mg PO BID 7 days #14 tabs 07/15/21 morphine 15 mg immediate release 15 mg PO BID PRN pain #8 tabs 07/15/21 tablet docusate sodium 100 mg capsule 100 mg PO BID #20 caps 07/21/21 (Colace) sennosides 8.6 mg tablet (senna) 8.6 mg PO BEDTIME #14 tabs 07/21/21 docusate sodium 100 mg capsule 100 mg PO BID PRN Constipation #14 11/23/21 (Colace) caps nitrofurantoin 100 mg PO BID uti 7 days #14 caps 11/23/21 monohydrate/macrocrystals 100 mg capsule (Macrobid) ondansetron 4 mg disintegrating 4 mg PO Q6H nausea/vomiting #14 11/23/21 tablet tabs cephalexin 500 mg capsule 500 mg PO Q8H 7 days #21 caps 08/02/22 ondansetron 4 mg disintegrating 4 mg PO Q8H PRN nausea and 03/02/23 tablet vomiting #10 tabs phenazopyridine 200 mg tablet 200 mg PO TID PRN pain 6 doses #6 03/02/23 (Pyridium) tabs Allergies Allergy/AdvReac Type Severity Reaction Status Date / Time aspirin [ASA] Allergy Intermediate RASH, Verified 04/26/23 04:44 nausea and vomiting ibuprofen [IBUPROFEN] Allergy Intermediate RASH Verified 04/26/23 04:44 nicotine Allergy Intermediate RASH FROM Verified 04/26/23 04:44 NICOTINE PATCH, nausea and vomiting ketorolac [From TORADOL] Allergy Mild RAPID HR Verified 04/26/23 04:44 AND HIVES Review of Systems Review of Systems Pertinent positives and negatives as [facility] Past Medical History Source: nursing notes reviewed Medical History delivery delivered HTN (hypertension) Anemia Hypercholesteremia DVT (deep venous thrombosis) Kidney stones Surgical History Total knee replacement status Social History Social History Unable to assess alcohol history related to: Unknown Alcohol intake: never Patient Tobacco Use Status: Current everyday Tobacco user Smoked in Last 30 Days: No Use of substances other than those prescribed or required for medical reasons: No Advance Directives: No Advance Directives Information Provided: Yes Patient : No Physical Exam ED Vital Signs: Vital Signs - 24 hr 04/26/23 04:45 04/26/23 05:42 04/26/23 06:33 Temperature 98.3 F 98.4 F Pulse Rate 91 68 Respiratory Rate 18 18 24 H Blood Pressure 152/80 H 129/74 Pulse Oximetry 98 98 Oxygen Delivery Method Room Air Room Air BMI result Body Mass Index 27.6 VITAL SIGNS: Reviewed. GENERAL: Well developed, well nourished, in no acute distress. HEAD: Normocephalic/atraumatic EYES: PERRLA, EOMI EARS: Ext canals without abnormality NOSE: Nares patent bilateral OROPHARYNX: no oral lesions noted, posterior pharynx clear NECK: Supple, no adenopathy LUNGS: Normal breath sounds. No adventitious sounds or accessory muscle use. SpO2<98> CARDIOVASCULAR: Regular rate and rhythm without noted murmurs ABDOMEN: Soft, discomfort noted in the right lower quadrant without rebound, non-distended with bowel sounds. MUSCULOSKELETAL: No tenderness, deformities, or effusions noted on gross inspection. EXTREMITIES: No cyanosis, clubbing or edema. SKIN: Inspection of the skin reveals no rashes NEUROLOGIC: Alert and oriented x 4. Strength and sensation to light touch were grossly intact x 4. Medical Decision Making Medical Decision Making MDM Narrative: 57-year-old female with history and clinical presentation, DDX: Renal colic, appendicitis, UTI, no clinical suspicion for obstructive symptoms or cholecystitis. I reviewed all investigations and hematologic indices are negative for leukocytosis or left shift, there is a normocytic stable anemia and no thrombocytopenia. Chemistry indices do not demonstrate any ALL and there is no electrolyte or liver enzyme abnormalities. CT scan was negative for any acute intra-abdominal pathologies and otherwise my interpretation is in agreement with radiology's impression. COVID-19 is negative. Patient received 1 L of IV fluids as well as anti emetics and pain medication. Patient states that she did not get any relief from the pain medication provided. My interpretation is that patient may be suffering from musculoskeletal pain as there is no evidence acute intra-abdominal infection. Patient is otherwise discharged instructions to follow-up with her primary care doctor. Differential Diagnosis Differential Diagnoses: The differential diagnosis associated with the presentation includes Please see the discussion above Admission/Observation Consideration of admission/observation: Escalation of care including admission/observation considered Please see the discussion above Lab Data MDM Lab Attestation statement: I reviewed the patient's lab results. Please see the discussion above 04/26/23 05:10 04/26/23 05:10 Labs: Lab Results 04/26/23 Range/Units 05:10 WBC 6.7 (4.8-10.8) X10*3/uL RBC 4.43 (4.20-5.50) X10*6/uL Hgb 11.6 L (12.0-16.0) g/dl Hct 36.7 L (37.0-47.0) % MCV 82.8 (80.0-98.0) fL MCH 26.2 L (27.0-33.0) pg MCHC 31.6 (31.0-35.0) g/dl RDW 14.1 (11.0-16.0) % Plt Count 258 (160-400) X10*3/uL MPV 9.5 (9.4-12.3) fL Immature Gran % (Auto) 0.3 (0.0-0.4) % Neut % (Auto) 57.4 (45-73) % Lymph % (Auto) 33.1 (20-40) % Meigs % (Auto) 7.9 (2-11) % Eos % (Auto) 1.0 (0-4) % Baso % (Auto) 0.3 (0-2) % Lymph # (Auto) 2.2 (1.2-4.9) X10*3/uL Meigs # (Auto) 0.5 (0.1-1.2) X10*3/uL Eos # (Auto) 0.1 (0.0-0.4) X10*3/uL Baso # (Auto) 0.0 (0.0-0.2) X10*3/uL Abs Immat Gran (auto) 0.02 (0.00-0.03) X10*3/uL Absolute Neuts (auto) 3.8 (2.0-8.3) x10*3/uL Absolute Nucleated RBC 0.000 (0.0-0.012) X10*3/uL Nucleated RBC % (auto) 0.0 (0.0-0.2) /100WBC Sodium 140 (135-145) mmol/L Potassium 3.5 (3.3-5.1) mmol/L Chloride 109 H (96-108) mmol/L Carbon Dioxide 20 L (22-29) mmol/L Anion Gap 15 (12-20) BUN 17 H (9-16) mg/dL Creatinine 0.71 (0.5-1.4) mg/dL Estim Creat Clear Calc 78.2 Estimated GFR > 60 Random Glucose 113 (60-115) mg/dL Calcium 9.3 (8.4-10.2) mg/dL Total Bilirubin 0.4 (0.0-1.0) mg/dL AST 31 (5-31) U/L ALT 30 (0-31) U/L Alkaline Phosphatase 113 (39-117) U/L Total Protein 7.9 (6.5-8.0) g/dL Albumin 4.5 (3.5-5.0) g/dL Lipase 19 (8-78) U/L COVID-19 ([facility]) Negative (Negative) COVID-19 Clin Com See Note Radiology Impression Discussion of test interpretation with radiology: I have reviewed the radiologist's reading. Radiologist Impression: Please see the discussion above External Record Review External record reviewed: Outpatient record, Prior outpatient labs and Prior outpatient radiology Chronic Conditions Patient?s care impacted by: Hypertension Medications Administered Discontinued Medications Generic Name Dose Route Start Last Admin Trade Name Freq PRN Reason Stop Dose Admin Fentanyl 25 mcg 04/26/23 05:29 04/26/23 05:42 Fentanyl Citrate/Pf 100 Mcg/2 Ml Vial IVPUSH 04/26/23 05:30 25 mcg ONCE ONE Administration Protocol Sodium Chloride 1,000 mls @ 999 mls/hr 04/26/23 05:30 04/26/23 07:03 Ns IV 04/26/23 06:30 Infused .Q1H1M ADELA Infusion Iohexol 85 ml 04/26/23 06:06 04/26/23 06:06 Iohexol 350 Mg/Ml 100 Ml Infus..Btl IV 04/26/23 06:07 85 ml ONCE ONE Administration Ondansetron HCl 4 mg 04/26/23 05:29 04/26/23 05:44 Ondansetron Hcl 4 Mg/2 Ml Vial IVPUSH 04/26/23 05:30 4 mg ONCE ONE Administration Critical Care Time Critical Care Time Critical Care Time: Yes Total Critical Care Time: 30 Attestation: I personally attest to this time spent taking care of the patient. Discharge Plan Discharge Clinical Impression: Musculoskeletal pain Patient Disposition: Home, Self-Care Instructions: Musculoskeletal Pain (ED) Additional Instructions: 1. Resume all home medications as prescribed. 2. Follow-up with primary care doctor in the next 1-2 days. Return to the ER for any worsening symptoms. Prescriptions: No Action quetiapine 25 mg tablet 1 tab PO BID PRN (Reason: anxiety) atorvastatin 10 mg tablet 1 tab PO DAILY polyvinyl alcohol [Artificial Tears (polyvin alc)] 1.4 % drops 1 drp ophthalmic (eye) TID ondansetron HCl 4 mg tablet 1 tab PO Q8H PRN (Reason: nausea) gabapentin 400 mg capsule 1 cap PO BEDTIME topiramate 25 mg tablet 1 tab PO BID clonidine HCl 0.2 mg tablet 1 tab PO BID PRN (Reason: panic attack) cyanocobalamin (vitamin B-12) 500 mcg tablet 1 tab PO DAILY ascorbic acid (vitamin C) 250 mg tablet 1 tab PO BID amlodipine 10 mg tablet 1 tab PO DAILY mirtazapine 30 mg tablet 1 tab PO BEDTIME mirtazapine 30 mg tablet 1 tab PO BEDTIME docusate sodium 100 mg capsule 1 - 2 cap PO BEDTIME PRN (Reason: constipation) gabapentin 100 mg capsule 1 cap PO TID PRN (Reason: anxiety) zolpidem 10 mg tablet 1 tab PO BEDTIME PRN (Reason: insomnia) albuterol sulfate [ProAir HFA] 90 mcg/actuation HFA aerosol inhaler 2 puff PO Q4-6H PRN (Reason: dyspnea) fluoxetine 20 mg capsule 3 cap PO QAM loratadine 10 mg tablet 1 tab PO DAILY loratadine 10 mg tablet 1 tab PO DAILY tramadol 50 mg tablet 50 mg PO Q8H PRN (Reason: pain) Qty: 3 0RF morphine 15 mg tablet 15 mg PO BID PRN (Reason: pain) Qty: 8 0RF cefuroxime axetil 250 mg tablet 250 mg PO BID 7 Days Qty: 14 0RF nitrofurantoin monohyd/m-cryst [Macrobid] 100 mg capsule 100 mg PO BID Qty: 14 0RF Rx Instructions: must administer with a meal/food phenazopyridine [Pyridium] 100 mg tablet 100 mg PO TID PRN (Reason: pain) Qty: 6 0RF sennosides [senna] 8.6 mg tablet 8.6 mg PO BEDTIME Qty: 14 0RF docusate sodium [Colace] 100 mg capsule 100 mg PO BID Qty: 20 0RF docusate sodium [Colace] 100 mg capsule 100 mg PO BID PRN (Reason: Constipation) Qty: 14 0RF ondansetron 4 mg tablet,disintegrating 4 mg PO Q6H Qty: 14 0RF nitrofurantoin monohyd/m-cryst [Macrobid] 100 mg capsule 100 mg PO BID 7 Days Qty: 14 0RF Rx Instructions: must administer with a meal/food cephalexin 500 mg capsule 500 mg PO Q8H 7 Days Qty: 21 0RF phenazopyridine [Pyridium] 200 mg tablet 200 mg PO TID PRN (Reason: pain) Qty: 6 0RF ondansetron 4 mg tablet,disintegrating 4 mg PO Q8H PRN (Reason: nausea and vomiting) Qty: 10 0RF Referrals: Amber Quiroz MD [Primary Care Provider] -
[2023-04-26 05:33] LABS: COVID-19 Test Negative (Negative); IDNOW Serial# 6674DD1D
[2023-04-26 05:42] VITALS: RESP 18
[2023-04-26] MEDS: fentaNYL citrate/PF 100 MCG/2 ML VIAL 25 MCG IVPUSH (05:42)
[2023-04-26 05:43] LABS: Lipase 19 U/L (8-78)
[2023-04-26] MEDS: ondansetron HCL 4 MG/2 ML VIAL IVPUSH (05:44)
[2023-04-26] MEDS: 0.9 % Sodium Chloride 1,000 ML 999 ML IV (05:44)
[2023-04-26] MEDS: iohexoL 350 MG/ML 100 ML INFUS..BTL 85 ML IV (06:06)
[2023-04-26 06:33] VITALS: BP 129/74; PULSE 68; RESP 24; TEMP 36.9; O2SAT 98
--- NOTE | 2023-04-26 07:51 | PC.NURSE ---
Initial contact with pt. pt refused tyl and lido patch. pt spoken to by MD regarding dispo. pt adeel, pulled out her own IV, states she will go to [facility].
[2023-04-26 07:59] LABS: Appearance Urine Clear; Color Urine Dark Yellow; Glucose Urine UA Negative (Negative); Leukocyte Esterase Urine Small (1+) (Negative); Nitrite Urine Negative (Negative); PH 6.5 (5.0-9.0); Specific Gravity - Urine >= 1.030 (1.005-1.025); UMIC TRIGGER UACC YES; Urine Blood Large (3+) (Negative); Urine Ketones Negative (Negative); Urine Protein 100 (2+) mg/dL (Neg-Trace)
[2023-04-26 08:12] LABS: Bacteria Urine None Seen (None Seen); Hyaline Casts Urine 0-2 /LPF (0-2); Squamous Epithelial Cell Urine 0-2 /HPF (0-2); UACC Culture Trigger YES; WBC Urine 0-5 /HPF (0-5)
== END 2023-04-26 08:04 | disposition home or self-care (01) ==
PROVIDERS: Student in an Organized Health Care Education/Training Program; Emergency Provider Emergency Medicine; PCP Family Medicine
DX: M79.18 Myalgia, other site (principal); Z11.52 Encounter for screening for COVID-19; I10 Essential (primary) hypertension; E78.00 Pure hypercholesterolemia, unspecified; D64.9 Anemia, unspecified; F17.200 Nicotine dependence, unspecified, uncomplicated; Z86.718 Personal history of other venous thrombosis and embolism; Z87.442 Personal history of urinary calculi; Z79.899 Other long term (current) drug therapy
CPT/HCPCS: 36415; 74177; 80053; 81001; 83690; 85025; 87086; 87635; 96361; 96374; 96375; 99284; 99285; J2405; J3010; Q9967

== ENCOUNTER 2023-06-19 11:58 | Outpatient (REF) | payer MEDICAID, SELFPAY | END 2023-06-19 11:59 | disposition home or self-care (01) | LOC: HO.HOSX 11:58 | PROVIDERS: Visit Provider Orthopaedic Surgery | DX: Z13.89 Encounter for screening for other disorder (principal) ==

== ENCOUNTER 2023-09-28 02:25 | Emergency (ER) | payer MEDICAID, SELFPAY ==
[2023-09-28 06:42] LABS: MANUAL DIFF FLAG NO
[2023-09-28 06:47] LABS: Sodium 143 mmol/L (135-145)
[2023-09-28 06:48] LABS: Anion Gap 13 (12-20); Carbon Dioxide 23 mmol/L (22-29); Chloride 110 mmol/L (96-108); Potassium 2.8 mmol/L (3.3-5.1)
[2023-09-28 06:49] LABS: Blood Urea Nitrogen 14 mg/dL (9-16); Calcium 9.1 mg/dL (8.4-10.2); Estimated Glomerular Filt Rate > 60; Glucose Random 122 mg/dL (60-115)
[2023-09-28 06:50] LABS: Basophils Percent Auto 0.3 % (0-2); Eosinophils Absolute Auto 0.1 X10*3/uL (0.0-0.4); Hematocrit 37.7 % (37.0-47.0); Hemoglobin 12.5 g/dl (12.0-16.0); Imm Gran Abs Auto 0.01 X10*3/uL (0.00-0.03); Imm Gran Pct Auto 0.2 % (0.0-0.4); Lymphocytes Absolute Auto 2.2 X10*3/uL (1.2-4.9); Lymphocytes Percent Auto 38.1 % (20-40); Mean Corpuscular HGB Conc 33.2 g/dl (31.0-35.0); Mean Corpuscular Hemoglobin 27.4 pg (27.0-33.0); Mean Corpuscular Volume 82.7 fL (80.0-98.0); Mean Platelet Volume 9.7 fL (9.4-12.3); Monocytes Absolute Auto 0.4 X10*3/uL (0.1-1.2); Monocytes Percent Auto 7.4 % (2-11); Neutrophils Absolute Auto 3.1 x10*3/uL (2.0-8.3); Platelet Count 240 X10*3/uL (160-400); Red Blood Count 4.56 X10*6/uL (4.20-5.50); Red Cell Distribution Width 14.5 % (11.0-16.0); White Blood Count 5.8 X10*3/uL (4.8-10.8)
== END 2023-09-28 06:10 | disposition left against medical advice (07) ==
PROVIDERS: Emergency Provider Emergency Medicine
DX: N20.0 Calculus of kidney (principal)
CPT/HCPCS: 36415; 80048; 85025; 99283

== ENCOUNTER 2023-11-01 05:09 | Emergency (ER) | payer MEDICAID, SELFPAY ==
--- NOTE | ~2023-11-01 | CT_ITS ---
EXAMINATION: CT ABDOMEN AND PELVIS WITHOUT CONTRAST CLINICAL INFORMATION: History of lithotripsy and stent on the left. Bilateral flank COMPARISON: 04/26/2023 TECHNIQUE: Multidetector volumetric imaging was performed from the superior aspect of the liver through the pubic symphysis. Sagittal and coronal reformatted images were obtained on the technologist's workstation. This CT examination was performed using dose optimization techniques as appropriate, variously including the following: *Automated exposure control *Adjustment of mA and/or kV according to patient size (this includes techniques or standardized protocols for targeted exams where dose is matched to indication/reason for exam; i.e. extremities or head) *Use of iterative reconstruction technique DLP: 500 mGy-cm FINDINGS: LUNG BASES: The visualized lung bases are unremarkable. LIVER, GALLBLADDER, AND BILIARY TREE: The liver is normal in size, shape, and attenuation. No focal hepatic lesion or biliary ductal dilatation is present. The gallbladder is unremarkable with no evidence of radiopaque gallstones, gallbladder wall thickening, or obvious pericholecystic inflammatory changes. PANCREAS: Unremarkable. SPLEEN: Unremarkable. ADRENAL GLANDS: Unremarkable. KIDNEYS AND URETERS: Right kidney demonstrate no hydroureteronephrosis. There is stable upper pole fat-containing lesion consistent with the appearance of angiomyolipoma, measured 1.3 cm and nonobstructing small calculi, with the largest in the interpolar region of the kidney measured 0.2 cm.. Left kidney revealed mild hydroureteronephrosis in spite of ureteral stent, originating from left pelvis with distal pigtail of catheter seen in the urinary bladder. There are a few small stones in the collecting system of left kidney with the largest conglomerate of stones in the lower pole, measured 0.5 cm. There is mild perinephric stranding. BLADDER: Urinary bladder is partially distended with no obvious stones GASTROINTESTINAL TRACT: The small and large bowel are unremarkable. The appendix is unremarkable. ABDOMINAL WALL: There is fat-containing small umbilical hernia LYMPH NODES: Normal. VASCULAR: Unremarkable. PELVIC VISCERA: Unremarkable. OSSEOUS STRUCTURES: There is facets arthropathy at the level of L4-L5 and L5-S1 CT/CT abdomen pelvis wo IV con IMPRESSION: 1. Mild hydroureteronephrosis on the left in spite of ureteral stent. 2. Bilateral nephrolithiasis. 3. 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 4. Small fat-containing umbilical hernia. 5. 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 Fleischner guidelines were followed.
[2023-11-01 05:12] VITALS: BP 160/90; PULSE 103; O2SAT 98
[2023-11-01 05:19] VITALS: BP 156/47; PULSE 98; RESP 18; TEMP 37.2; O2SAT 99; BMI 28.2
--- NOTE | 2023-11-01 05:29 | ED_ITS ---
HPI - Abdominal Pain General Chief Complaint: Abdominal Pain Stated Complaint: ABD PAIN/ BLOOD IN URINE Time Seen by Provider: 11/01/23 05:29 Source: patient Mode of arrival: EMS Limitations: no limitations History of Present Illness HPI narrative: 57-year-old female with a history of hypertension, anemia, hypercholesterolemia, DVT, kidney stones, right total knee replacement, who presents emergency department for evaluation of bilateral flank pain, bilateral lower abdominal pain, hematuria. Patient states she had a left kidney stone with lithotripsy and stent placed on 10/11/2023. She states that she has had increased pain over the last 3 days with increased hematuria. She states that it is hard to urinate and she is concerned that she might have a urine infection. She states she did have a fever of 100.9 degrees F at home. She had nausea and vomiting. She states that she has oxycodone and this is not helping her pain. She states the pain is currently 10/10. Related Data Home Medications ?Medication ?Instructions ?Recorded ?Confirmed albuterol sulfate 90 mcg/actuation 2 puff PO Q4-6H PRN dyspnea 11/26/20 11/26/20 aerosol inhaler (ProAir HFA) amlodipine 10 mg tablet 1 tab PO DAILY 11/26/20 11/26/20 ascorbic acid (vitamin C) 250 mg 1 tab PO BID 11/26/20 11/26/20 tablet atorvastatin 10 mg tablet 1 tab PO DAILY 11/26/20 11/26/20 clonidine HCl 0.2 mg tablet 1 tab PO BID PRN panic attack 11/26/20 11/26/20 cyanocobalamin (vitamin B-12) 500 1 tab PO DAILY 11/26/20 11/26/20 mcg tablet docusate sodium 100 mg capsule 1 - 2 cap PO BEDTIME PRN 11/26/20 11/26/20 constipation fluoxetine 20 mg capsule 3 cap PO QAM 11/26/20 11/26/20 gabapentin 100 mg capsule 1 cap PO TID PRN anxiety 11/26/20 11/26/20 gabapentin 400 mg capsule 1 cap PO BEDTIME 11/26/20 11/26/20 loratadine 10 mg tablet 1 tab PO DAILY 11/26/20 11/26/20 loratadine 10 mg tablet 1 tab PO DAILY 11/26/20 11/26/20 mirtazapine 30 mg tablet 1 tab PO BEDTIME 11/26/20 11/26/20 mirtazapine 30 mg tablet 1 tab PO BEDTIME 11/26/20 11/26/20 ondansetron HCl 4 mg tablet 1 tab PO Q8H PRN nausea 11/26/20 11/26/20 polyvinyl alcohol 1.4 % eye drops 1 drp ophthalmic (eye) TID 11/26/20 11/26/20 (Artificial Tears (polyvinyl alcohol)) quetiapine 25 mg tablet 1 tab PO BID PRN anxiety 11/26/20 11/26/20 topiramate 25 mg tablet 1 tab PO BID 11/26/20 11/26/20 zolpidem 10 mg tablet 1 tab PO BEDTIME PRN insomnia 11/26/20 11/26/20 Previous Rx's ?Medication ?Instructions ?Recorded tramadol 50 mg tablet 50 mg PO Q8H PRN pain #3 tabs 11/26/20 nitrofurantoin 100 mg PO BID #14 caps 05/26/21 monohydrate/macrocrystals 100 mg capsule (Macrobid) phenazopyridine 100 mg tablet 100 mg PO TID PRN pain 6 doses #6 05/26/21 (Pyridium) tabs cefuroxime axetil 250 mg tablet 250 mg PO BID 7 days #14 tabs 07/15/21 morphine 15 mg immediate release 15 mg PO BID PRN pain #8 tabs 07/15/21 tablet docusate sodium 100 mg capsule 100 mg PO BID #20 caps 07/21/21 (Colace) sennosides 8.6 mg tablet (senna) 8.6 mg PO BEDTIME #14 tabs 07/21/21 docusate sodium 100 mg capsule 100 mg PO BID PRN Constipation #14 11/23/21 (Colace) caps nitrofurantoin 100 mg PO BID uti 7 days #14 caps 11/23/21 monohydrate/macrocrystals 100 mg capsule (Macrobid) ondansetron 4 mg disintegrating 4 mg PO Q6H nausea/vomiting #14 11/23/21 tablet tabs cephalexin 500 mg capsule 500 mg PO Q8H 7 days #21 caps 08/02/22 ondansetron 4 mg disintegrating 4 mg PO Q8H PRN nausea and 03/02/23 tablet vomiting #10 tabs phenazopyridine 200 mg tablet 200 mg PO TID PRN pain 6 doses #6 03/02/23 (Pyridium) tabs Allergies Allergy/AdvReac Type Severity Reaction Status Date / Time aspirin [ASA] Allergy Intermediate RASH, Verified 11/01/23 05:21 nausea and vomiting ibuprofen [IBUPROFEN] Allergy Intermediate RASH Verified 11/01/23 05:21 nicotine Allergy Intermediate RASH FROM Verified 11/01/23 05:21 NICOTINE PATCH, nausea and vomiting ketorolac [From TORADOL] Allergy Mild RAPID HR Verified 11/01/23 05:21 AND HIVES haloperidol [From Haldol] Allergy Anaphylaxis Verified 11/01/23 05:21 Review of Systems Review of Systems Yes all other systems are reviewed and are negative [facility] Past Medical History [facility] Narrative: Social history: She denies tobacco, alcohol and drug use Medical History delivery delivered HTN (hypertension) Anemia Hypercholesteremia DVT (deep venous thrombosis) Kidney stones Surgical History Total knee replacement status Social History Social History Unable to assess alcohol history related to: Unknown Alcohol intake: never Patient Tobacco Use Status: Current everyday Tobacco user Smoked in Last 30 Days: No Use of substances other than those prescribed or required for medical reasons: No Advance Directives: No Advance Directives Information Provided: No Do you have a plan to hurt others: No Plan Patient : No Physical Exam ED Vital Signs: Vital Signs - 24 hr 11/01/23 05:19 Temperature 98.9 F Pulse Rate 98 Respiratory Rate 18 Blood Pressure 156/47 H Pulse Oximetry 99 Oxygen Delivery Method Room Air BMI result Body Mass Index 28.2 Vital signs revealed an elevated blood pressure of 156/47 otherwise unremarkable Exam: General: Awake, alert , in moderate distress secondary to abdominal pain Head: Normocephalic, atraumatic EENT: PERRL, Lids normal, sclera normal, conjunctiva normal, nose normal , ears normal, throat without erythema or exudates Neck: Supple, no adenopathy Lung: breath sounds symmetric, no wheezing, rales or rhonchi Chest: symmetric movement, nontender Heart: regular rate and rhythm, normal S1, S2 , 2/6 systolic murmur best heard at left upper sternal border Abdomen: soft, moderate RLQ and LLQ tenderness, normoactive bowel sounds, no rebound Back: Moderate left CVA tenderness, mild to moderate right CVA tenderness Extremities: no deformities, moves all extremities symmetrically Neuro: Awake, alert, oriented, normal speech, moves all extremities symmetrically Psych: Pleasant, cooperative Medical Decision Making Medical Decision Making MDM Narrative: 57-year-old female with a history of hypertension, anemia, hypercholesterolemia, DVT, kidney stones, right total knee replacement, who presents emergency department for evaluation of bilateral flank pain, bilateral lower abdominal pain, hematuria. Patient states she had a left kidney stone with lithotripsy and stent placed on 10/11/2023 with increased pain over the last 3 days, increased hematuria, nausea, difficulty urinating and fever. Patient's vital signs did reveal an elevated blood pressure otherwise unremarkable. Patient's abdominal exam did reveal right lower and left lower quadrant tenderness as well as bilateral CVA tenderness left greater than right. Differential diagnosis: ?Includes but is not limited to ureteral stone, ureteral colic, urinary tract infection, renal infection, diverticulitis, appendicitis, pancreatitis, anemia, electrolyte abnormalities Following evaluation was ordered: CBC, CMP, lipase, PT/INR, PTT, urinalysis, CT scan of the abdomen pelvis with IV contrast Patient was initially treated with the following: Dilaudid 1 mg IV, Benadryl 50 mg IV, Zofran 4 mg IV, normal saline x1 L Course: 08:49 My independent interpretation patient's laboratory evaluation is as follows: CBC was normal. BUN elevated 17. Glucose elevated 139. LFTs were normal. Lipase was normal. Coags normal. Urinalysis revealed elevated specific gravity, positive protein, blood, nitrates, leukocyte esterase. Microscopic revealed greater than 20 RBCs, 0-5 WBCs and no bacteria suggesting that she was not have a urinary tract infection. At the end of my shift, patient's CT scan of the abdomen pelvis without IV contrast is pending and the patient's care was turned over to my colleague, Dr. Nick De Leon Admission/Observation Consideration of admission/observation: Escalation of care including admission/observation considered Lab Data MDM Lab Attestation statement: I reviewed the patient's lab results. 11/01/23 05:30 11/01/23 05:30 Labs: Lab Results 11/01/23 11/01/23 Range/Units 05:30 06:19 WBC 5.4 (4.8-10.8) X10*3/uL RBC 4.48 (4.20-5.50) X10*6/uL Hgb 12.2 (12.0-16.0) g/dl Hct 37.0 (37.0-47.0) % MCV 82.6 (80.0-98.0) fL MCH 27.2 (27.0-33.0) pg MCHC 33.0 (31.0-35.0) g/dl RDW 14.2 (11.0-16.0) % Plt Count 260 (160-400) X10*3/uL MPV 9.1 L (9.4-12.3) fL Immature Gran % (Auto) 0.2 (0.0-0.4) % Neut % (Auto) 55.5 (45-73) % Lymph % (Auto) 35.5 (20-40) % [place] % (Auto) 6.9 (2-11) % Eos % (Auto) 1.5 (0-4) % Baso % (Auto) 0.4 (0-2) % Lymph # (Auto) 1.9 (1.2-4.9) X10*3/uL [place] # (Auto) 0.4 (0.1-1.2) X10*3/uL Eos # (Auto) 0.1 (0.0-0.4) X10*3/uL Baso # (Auto) 0.0 (0.0-0.2) X10*3/uL Abs Immat Gran (auto) 0.01 (0.00-0.03) X10*3/uL Absolute Neuts (auto) 3.0 (2.0-8.3) x10*3/uL Absolute Nucleated RBC 0.000 (0.0-0.012) X10*3/uL Nucleated RBC % (auto) 0.0 (0.0-0.2) /100WBC PT 11.4 (11.1-13.3) SEC INR 0.9 (0.9-1.1) APTT 32.9 (26.0-36.8) SEC Sodium 140 (135-145) mmol/L Potassium 3.3 (3.3-5.1) mmol/L Chloride 107 (96-108) mmol/L Carbon Dioxide 22 (22-29) mmol/L Anion Gap 14 (12-20) BUN 17 H (9-16) mg/dL Creatinine 0.63 (0.5-1.4) mg/dL Estim Creat Clear Calc 85.6 Estimated GFR > 60 Random Glucose 139 H (60-115) mg/dL Calcium 9.3 (8.4-10.2) mg/dL Total Bilirubin 0.2 (0.0-1.0) mg/dL AST 18 (5-31) U/L ALT 15 (0-31) U/L Alkaline Phosphatase 97 (39-117) U/L Total Protein 7.9 (6.5-8.0) g/dL Albumin 4.5 (3.5-5.0) g/dL Lipase 16 (8-78) U/L Urine Color RED Urine Appearance Cloudy Urine pH 6.5 (5.0-9.0) Ur Specific [place] >= 1.030 H (1.005-1.025) Urine Protein 300 (3+) H (Neg-Trace) mg/dL Urine Glucose (UA) Negative (Negative) mg/dL Urine Ketones Negative (Negative) mg/dL Urine Blood Large (3+) H (Negative) Urine Nitrite Positive H (Negative) Ur Leukocyte Esterase Trace H (Negative) Urine RBC >20 H (0-2) /HPF Urine WBC 0-5 (0-5) /HPF Ur Squamous Epith Cells 0-2 (0-2) /HPF Urine Bacteria None Seen (None Seen) Hyaline Casts 0-2 (0-2) /LPF External Record Review External record reviewed: Inpatient record Chronic Conditions Patient?s care impacted by: Other (Kidney stones) Medications Administered Discontinued Medications Generic Name Dose Route Start Last Admin Trade Name Freq PRN Reason Stop Dose Admin Diphenhydramine HCl 50 mg 11/01/23 05:29 11/01/23 05:39 Diphenhydramine Hcl 50 Mg/Ml Vial IVPUSH 11/01/23 05:30 50 mg ONCE STA Administration Hydromorphone HCl 1 mg 11/01/23 05:29 11/01/23 05:39 Hydromorphone Hcl 1 Mg/Ml Syringe IVPUSH 11/01/23 05:30 1 mg ONCE STA Administration Protocol Hydromorphone HCl 1 mg 11/01/23 06:23 11/01/23 06:30 Hydromorphone Hcl 1 Mg/Ml Syringe IVPUSH 11/01/23 06:24 1 mg ONCE STA Administration Protocol Sodium Chloride 1,000 mls @ 999 mls/hr 11/01/23 05:29 11/01/23 06:41 Ns IV 11/01/23 06:29 Infused .Q1H1M STA Infusion Ondansetron HCl 4 mg 11/01/23 05:29 11/01/23 05:39 Ondansetron Hcl 4 Mg/2 Ml Vial IVPUSH 11/01/23 05:30 4 mg ONCE ONE Administration Discharge Plan Discharge Clinical Impression: Bilateral flank pain Patient Disposition: Still a Patient Prescriptions: No Action quetiapine 25 mg tablet 1 tab PO BID PRN (Reason: anxiety) atorvastatin 10 mg tablet 1 tab PO DAILY polyvinyl alcohol [Artificial Tears (polyvin alc)] 1.4 % drops 1 drp ophthalmic (eye) TID ondansetron HCl 4 mg tablet 1 tab PO Q8H PRN (Reason: nausea) gabapentin 400 mg capsule 1 cap PO BEDTIME topiramate 25 mg tablet 1 tab PO BID clonidine HCl 0.2 mg tablet 1 tab PO BID PRN (Reason: panic attack) cyanocobalamin (vitamin B-12) 500 mcg tablet 1 tab PO DAILY ascorbic acid (vitamin C) 250 mg tablet 1 tab PO BID amlodipine 10 mg tablet 1 tab PO DAILY mirtazapine 30 mg tablet 1 tab PO BEDTIME mirtazapine 30 mg tablet 1 tab PO BEDTIME docusate sodium 100 mg capsule 1 - 2 cap PO BEDTIME PRN (Reason: constipation) gabapentin 100 mg capsule 1 cap PO TID PRN (Reason: anxiety) zolpidem 10 mg tablet 1 tab PO BEDTIME PRN (Reason: insomnia) albuterol sulfate [ProAir HFA] 90 mcg/actuation HFA aerosol inhaler 2 puff PO Q4-6H PRN (Reason: dyspnea) fluoxetine 20 mg capsule 3 cap PO QAM loratadine 10 mg tablet 1 tab PO DAILY loratadine 10 mg tablet 1 tab PO DAILY tramadol 50 mg tablet 50 mg PO Q8H PRN (Reason: pain) Qty: 3 0RF morphine 15 mg tablet 15 mg PO BID PRN (Reason: pain) Qty: 8 0RF cefuroxime axetil 250 mg tablet 250 mg PO BID 7 Days Qty: 14 0RF nitrofurantoin monohyd/m-cryst [Macrobid] 100 mg capsule 100 mg PO BID Qty: 14 0RF Rx Instructions: must administer with a meal/food phenazopyridine [Pyridium] 100 mg tablet 100 mg PO TID PRN (Reason: pain) Qty: 6 0RF sennosides [senna] 8.6 mg tablet 8.6 mg PO BEDTIME Qty: 14 0RF docusate sodium [Colace] 100 mg capsule 100 mg PO BID Qty: 20 0RF docusate sodium [Colace] 100 mg capsule 100 mg PO BID PRN (Reason: Constipation) Qty: 14 0RF ondansetron 4 mg tablet,disintegrating 4 mg PO Q6H Qty: 14 0RF nitrofurantoin monohyd/m-cryst [Macrobid] 100 mg capsule 100 mg PO BID 7 Days Qty: 14 0RF Rx Instructions: must administer with a meal/food cephalexin 500 mg capsule 500 mg PO Q8H 7 Days Qty: 21 0RF phenazopyridine [Pyridium] 200 mg tablet 200 mg PO TID PRN (Reason: pain) Qty: 6 0RF ondansetron 4 mg tablet,disintegrating 4 mg PO Q8H PRN (Reason: nausea and vomiting) Qty: 10 0RF Print Language: Bulgarian
[2023-11-01 05:39] LABS: Basophils Percent Auto 0.4 % (0-2); Eosinophils Absolute Auto 0.1 X10*3/uL (0.0-0.4); Eosinophils Percent Auto 1.5 % (0-4); Hemoglobin 12.2 g/dl (12.0-16.0); Imm Gran Abs Auto 0.01 X10*3/uL (0.00-0.03); Imm Gran Pct Auto 0.2 % (0.0-0.4); Lymphocytes Absolute Auto 1.9 X10*3/uL (1.2-4.9); Lymphocytes Percent Auto 35.5 % (20-40); MANUAL DIFF FLAG NO; Mean Corpuscular Hemoglobin 27.2 pg (27.0-33.0); Mean Corpuscular Volume 82.6 fL (80.0-98.0); Mean Platelet Volume 9.1 fL (9.4-12.3); Monocytes Absolute Auto 0.4 X10*3/uL (0.1-1.2); Monocytes Percent Auto 6.9 % (2-11); Neutrophils Percent Auto 55.5 % (45-73); Platelet Count 260 X10*3/uL (160-400); Red Blood Count 4.48 X10*6/uL (4.20-5.50); Red Cell Distribution Width 14.2 % (11.0-16.0); White Blood Count 5.4 X10*3/uL (4.8-10.8)
[2023-11-01] MEDS: HYDROmorphone HCl 1 MG/ML SYRINGE IVPUSH ×2 (05:39→06:30)
[2023-11-01] MEDS: ondansetron HCL 4 MG/2 ML VIAL IVPUSH (05:39)
[2023-11-01] MEDS: 0.9 % Sodium Chloride 1,000 ML 999 ML IV (05:39)
[2023-11-01] MEDS: diphenhydrAMINE HCL 50 MG/ML VIAL IVPUSH (05:39)
[2023-11-01 05:48] LABS: INTERNATIONAL NORM RATIO 0.9 (0.9-1.1); Prothrombin Time 11.4 SEC (11.1-13.3)
[2023-11-01 05:51] LABS: Partial Thromboplastin Time 32.9 SEC (26.0-36.8)
[2023-11-01 05:55] LABS: Alanine Aminotransferase 15 U/L (0-31); Albumin Level 4.5 g/dL (3.5-5.0); Alkaline Phosphatase 97 U/L (39-117); Anion Gap 14 (12-20); Aspartate Amino Transferase 18 U/L (5-31); Bilirubin Total 0.2 mg/dL (0.0-1.0); Blood Urea Nitrogen 17 mg/dL (9-16); Calcium 9.3 mg/dL (8.4-10.2); Carbon Dioxide 22 mmol/L (22-29); Chloride 107 mmol/L (96-108); Creatinine Clr Calc Pharmacy 85.6; Estimated Glomerular Filt Rate > 60; Glucose Random 139 mg/dL (60-115); Lipase 16 U/L (8-78); Potassium 3.3 mmol/L (3.3-5.1); Sodium 140 mmol/L (135-145); Total Protein 7.9 g/dL (6.5-8.0)
[2023-11-01 06:26] LABS: Appearance Urine Cloudy; Color Urine RED; Glucose Urine UA Negative (Negative); Leukocyte Esterase Urine Trace (Negative); Nitrite Urine Positive (Negative); PH 6.5 (5.0-9.0); Specific Gravity - Urine >= 1.030 (1.005-1.025); UMIC TRIGGER UACC YES; Urine Blood Large (3+) (Negative); Urine Ketones Negative (Negative); Urine Protein 300 (3+) mg/dL (Neg-Trace)
[2023-11-01 08:11] LABS: Bacteria Urine None Seen (None Seen); Hyaline Casts Urine 0-2 /LPF (0-2); RBC Urine >20 /HPF (0-2); Squamous Epithelial Cell Urine 0-2 /HPF (0-2); UACC Culture Trigger YES; WBC Urine 0-5 /HPF (0-5)
--- NOTE | 2023-11-01 08:23 | PC.NURSE ---
Pt wants to be discharged, her son is on his way. Does not want to wait for discharge, wants provider to call her.
[2023-11-01 08:26] VITALS: BP 156/47; PULSE 98; RESP 18; TEMP 37.2; O2SAT 99
== END 2023-11-01 08:26 | disposition still patient (30) ==
PROVIDERS: Emergency Medicine Emergency Medical Services; Emergency Provider Emergency Medicine; PCP Family Medicine
DX: R10.9 Unspecified abdominal pain (principal); I10 Essential (primary) hypertension; E78.00 Pure hypercholesterolemia, unspecified; F17.200 Nicotine dependence, unspecified, uncomplicated; Z87.442 Personal history of urinary calculi; Z96.0 Presence of urogenital implants; Z87.440 Personal history of urinary (tract) infections; Z86.718 Personal history of other venous thrombosis and embolism; Z79.02 Long term (current) use of antithrombotics/antiplatelets; Z79.899 Other long term (current) drug therapy
CPT/HCPCS: 36415; 51798; 74176; 80053; 81001; 83690; 85025; 85610; 85730; 87086; 96361; 96374; 96375; 96376; 99284; 99285; J1170; J1200; J2405

== ENCOUNTER 2024-04-01 06:49 | Emergency (ER) | payer MEDICAID, SELFPAY ==
[2024-04-01] VITALS (7 sets, daily range): BP systolic 150–154; BP diastolic 58–76; PULSE 63–70; RESP 14–22; TEMP 36.6–36.8; O2SAT 97–98; BMI 28.0
--- NOTE | ~2024-04-01 | CT_ITS ---
EXAMINATION: CT ABDOMEN AND PELVIS WITHOUT CONTRAST CLINICAL INFORMATION: Flank pain. COMPARISON: November 01, 2023 TECHNIQUE: Multidetector volumetric imaging was performed from the superior aspect of the liver through the pubic symphysis. Sagittal and coronal reformatted images were obtained on the technologist's workstation. This CT examination was performed using dose optimization techniques as appropriate, variously including the following: *Automated exposure control *Adjustment of mA and/or kV according to patient size (this includes techniques or standardized protocols for targeted exams where dose is matched to indication/reason for exam; i.e. extremities or head) *Use of iterative reconstruction technique DLP: 490 mGy-cm FINDINGS: LUNG BASES: No pleural or pericardial effusion. LIVER, GALLBLADDER, AND BILIARY TREE: The noncontrast liver is normal in size and contour. No biliary ductal dilatation is present. The gallbladder is unremarkable with no evidence of radiopaque gallstones, gallbladder wall thickening, or obvious pericholecystic inflammatory changes. PANCREAS: Unremarkable. SPLEEN: Unremarkable. ADRENAL GLANDS: Unremarkable. KIDNEYS AND URETERS: The kidneys are symmetric in size. 1.7 x 1.3 cm upper pole right renal angiomyolipoma. Multiple bilateral nonobstructing renal calculi. No ureteral calculus. No hydronephrosis. No perinephric fluid collection. BLADDER: Under distended No bladder calculus. GASTROINTESTINAL TRACT: Moderate fecal retention in colon. No small bowel obstruction. Appendix is within normal limits. ABDOMINAL WALL: Small fat-containing umbilical hernia. LYMPH NODES: No bulky lymphadenopathy. VASCULAR: Normal caliber abdominal aorta. PELVIC VISCERA: Unremarkable. OSSEOUS STRUCTURES: No destructive bone lesions. CT/CT abdomen pelvis wo IV con IMPRESSION: Bilateral nonobstructing renal calculi. No hydronephrosis. 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 Electronically signed by: Joe Cash MD 04/01/2024 10:02 AM EDT
--- NOTE | 2024-04-01 06:53 | ED_ITS ---
HPI - General Adult General Chief complaint: General Medical Stated complaint: RIGHT SIDED FLANK PAIN Time Seen by Provider: 04/01/24 06:51 Source: patient and EMS Mode of arrival: EMS Limitations: no limitations History of Present Illness ED Provider: Luis F BELLE narrative: This is a 58 year old female presenting w/ right flank pain X few days worsening. Reports this feels like her typical kidney stone. Pain > 10/10. Reports she is followed by urology out of [facility]. Denies fevers, chills, nausea, vomiting, abd pain, headache, changes in urination/bowel habits, cp, sob. Related Data Home Medications ?Medication ?Instructions ?Recorded ?Confirmed albuterol sulfate 90 mcg/actuation 2 puff PO Q4-6H PRN dyspnea 11/26/20 11/26/20 aerosol inhaler (ProAir HFA) amlodipine 10 mg tablet 1 tab PO DAILY 11/26/20 11/26/20 ascorbic acid (vitamin C) 250 mg 1 tab PO BID 11/26/20 11/26/20 tablet atorvastatin 10 mg tablet 1 tab PO DAILY 11/26/20 11/26/20 clonidine HCl 0.2 mg tablet 1 tab PO BID PRN panic attack 11/26/20 11/26/20 cyanocobalamin (vitamin B-12) 500 1 tab PO DAILY 11/26/20 11/26/20 mcg tablet docusate sodium 100 mg capsule 1 - 2 cap PO BEDTIME PRN 11/26/20 11/26/20 constipation fluoxetine 20 mg capsule 3 cap PO QAM 11/26/20 11/26/20 gabapentin 100 mg capsule 1 cap PO TID PRN anxiety 11/26/20 11/26/20 gabapentin 400 mg capsule 1 cap PO BEDTIME 11/26/20 11/26/20 loratadine 10 mg tablet 1 tab PO DAILY 11/26/20 11/26/20 loratadine 10 mg tablet 1 tab PO DAILY 11/26/20 11/26/20 mirtazapine 30 mg tablet 1 tab PO BEDTIME 11/26/20 11/26/20 mirtazapine 30 mg tablet 1 tab PO BEDTIME 11/26/20 11/26/20 ondansetron HCl 4 mg tablet 1 tab PO Q8H PRN nausea 11/26/20 11/26/20 polyvinyl alcohol 1.4 % eye drops 1 drp ophthalmic (eye) TID 11/26/20 11/26/20 (Artificial Tears (polyvinyl alcohol)) quetiapine 25 mg tablet 1 tab PO BID PRN anxiety 11/26/20 11/26/20 topiramate 25 mg tablet 1 tab PO BID 11/26/20 11/26/20 zolpidem 10 mg tablet 1 tab PO BEDTIME PRN insomnia 11/26/20 11/26/20 Previous Rx's ?Medication ?Instructions ?Recorded tramadol 50 mg tablet 50 mg PO Q8H PRN pain #3 tabs 11/26/20 nitrofurantoin 100 mg PO BID #14 caps 05/26/21 monohydrate/macrocrystals 100 mg capsule (Macrobid) phenazopyridine 100 mg tablet 100 mg PO TID PRN pain 6 doses #6 05/26/21 (Pyridium) tabs cefuroxime axetil 250 mg tablet 250 mg PO BID 7 days #14 tabs 07/15/21 morphine 15 mg immediate release 15 mg PO BID PRN pain #8 tabs 07/15/21 tablet docusate sodium 100 mg capsule 100 mg PO BID #20 caps 07/21/21 (Colace) sennosides 8.6 mg tablet (senna) 8.6 mg PO BEDTIME #14 tabs 07/21/21 docusate sodium 100 mg capsule 100 mg PO BID PRN Constipation #14 11/23/21 (Colace) caps nitrofurantoin 100 mg PO BID uti 7 days #14 caps 11/23/21 monohydrate/macrocrystals 100 mg capsule (Macrobid) ondansetron 4 mg disintegrating 4 mg PO Q6H nausea/vomiting #14 11/23/21 tablet tabs cephalexin 500 mg capsule 500 mg PO Q8H 7 days #21 caps 08/02/22 ondansetron 4 mg disintegrating 4 mg PO Q8H PRN nausea and 03/02/23 tablet vomiting #10 tabs phenazopyridine 200 mg tablet 200 mg PO TID PRN pain 6 doses #6 03/02/23 (Pyridium) tabs acetaminophen 325 mg capsule 650 mg (2 x 325 mg) PO Q6H PRN 04/01/24 (Tylenol) pain #30 caps cefdinir 300 mg capsule 300 mg PO BID 5 days #10 caps 04/01/24 Allergies Allergy/AdvReac Type Severity Reaction Status Date / Time aspirin [ASA] Allergy Intermediate RASH, Verified 04/01/24 07:24 nausea and vomiting ibuprofen [IBUPROFEN] Allergy Intermediate RASH Verified 04/01/24 07:24 nicotine Allergy Intermediate RASH FROM Verified 04/01/24 07:24 NICOTINE PATCH, nausea and vomiting ketorolac [From TORADOL] Allergy Mild RAPID HR Verified 04/01/24 07:24 AND HIVES haloperidol [From Haldol] Allergy Anaphylaxis Verified 04/01/24 07:24 Review of Systems 2 Review of Systems: 97 98% 24 poc 111 190/110 Yes all other systems are reviewed and are negative [facility] Past Medical History Attestation statement: The following information was validated with the patient. Source: old records reviewed and nursing notes reviewed Medical History delivery delivered HTN (hypertension) Anemia Hypercholesteremia DVT (deep venous thrombosis) Kidney stones Surgical History Total knee replacement status Social History Social History Unable to assess alcohol history related to: Unknown Alcohol intake: never Patient Tobacco Use Status: Current everyday Tobacco user Smoked in Last 30 Days: No Use of substances other than those prescribed or required for medical reasons: No Advance Directives: No Advance Directives Information Provided: Yes Do you have a plan to hurt others: No Plan Physical Exam ED Vital Signs: Vital Signs - 24 hr 04/01/24 07:18 04/01/24 07:32 04/01/24 07:34 Temperature 97.9 F 97.9 F Pulse Rate 67 70 Respiratory Rate 18 22 H 18 Blood Pressure 154/76 H 154/76 H Pulse Oximetry 98 97 Oxygen Delivery Method Room Air Room Air 04/01/24 08:10 04/01/24 09:37 04/01/24 10:23 Temperature Pulse Rate 63 Respiratory Rate 22 H 14 20 Blood Pressure 152/58 H Pulse Oximetry 97 Oxygen Delivery Method Room Air 04/01/24 10:23 04/01/24 10:34 Temperature 98.2 F Pulse Rate 70 Respiratory Rate 18 18 Blood Pressure 150/76 H Pulse Oximetry 98 Oxygen Delivery Method Room Air BMI result Body Mass Index 28.0 vss Appearance: Alert.? Oriented X3.? No acute distress.? Head: Normocephalic, atraumatic, no step-offs or deformities Eyes: Pupils equal, round and reactive to light.? CVS: Normal heart rate and rhythm.? Pulses normal.? Respiratory: No respiratory distress.? Breath sounds normal.? Abdomen: Soft and nontender.? Skin: Skin warm and dry.? Normal skin color.? Normal skin turgor.? Extremities: No lower extremity edema.? No calf ttp. 5/5 strength to bilateral upper and lower extremities + right sided CVA tenderness Neuro: Oriented X 3.? No motor deficit.? No sensory deficit. CN 2-12 intact Course Reevaluation(s) Reevaluation #1: CBC is leukopenia with baseline normocytic anemia. Chemistry no acute findings eating intervention. 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 Wing who states that they follow this in the office. Unlikely with causing patient's symptoms. Urine still pending. Time: 10:09 Reevaluation #2: UA within trace bacteria likely infection will treat for UTI. Patient eating and drinking crackers wheel alignment technician gave her crackers. Looked better and felt better at time of discharge. Time: 10:50 Medications Administered Discontinued Medications Generic Name Dose Route Start Last Admin Trade Name Heq PRN Reason Stop Dose Admin Fentanyl 50 mcg 04/01/24 10:13 04/01/24 10:23 Fentanyl Citrate/Pf 100 Mcg/2 Ml Vial IVPUSH 04/01/24 10:14 50 mcg ONCE ONE Administration Protocol Hydromorphone HCl 1 mg 04/01/24 08:01 04/01/24 08:10 Hydromorphone Hcl 1 Mg/Ml Syringe IVPUSH 04/01/24 08:02 1 mg ONCE ONE Administration Protocol Sodium Chloride 1,000 mls @ 999 mls/hr 04/01/24 07:00 04/01/24 10:26 Ns IV 04/01/24 08:00 Infused .Q1H1M ADELA Infusion Morphine Sulfate 4 mg 04/01/24 06:54 04/01/24 07:32 Morphine Sulfate 4 Mg/Ml Cartridge IVPUSH 04/01/24 06:55 4 mg ONCE ONE Administration Protocol Prednisone 20 mg 04/01/24 06:59 04/01/24 07:32 Prednisone 20 Mg Tablet PO 04/01/24 07:00 20 mg ONCE ONE Administration Tamsulosin HCl 0.4 mg 04/01/24 06:59 04/01/24 07:32 Tamsulosin Hcl 0.4 Mg Capsule PO 04/01/24 07:00 0.4 mg ONCE ONE Administration Medical Decision Making Medical Decision Making [facility] Narrative: 0655 58 yo f presents w/ right flank pain x few days PE benign Hx and PE concerning for kidney stone vs hydronephrosis vs obstructive uropathy. No signs of systemic illness. Unlikely cauda equina, epidural abscess, cord compression Plan- labs, urine, ct abd Differential Diagnosis Differential Diagnoses: The differential diagnosis associated with the presentation includes Hx and PE concerning for kidney stone vs hydronephrosis vs obstructive uropathy. No signs of systemic illness. Unlikely cauda equina, epidural abscess, cord compression Admission/Observation Consideration of admission/observation: Escalation of care including admission/observation considered Lab Data [facility] Lab Attestation statement: I reviewed the patient's lab results. 04/01/24 07:17 04/01/24 07:17 Labs: Lab Results 04/01/24 04/01/24 Range/Units 07:17 09:37 WBC 3.5 L (4.8-10.8) X10*3/uL RBC 4.20 (4.20-5.50) X10*6/uL Hgb 11.1 L (12.0-16.0) g/dl Hct 34.6 L (37.0-47.0) % MCV 82.4 (80.0-98.0) fL MCH 26.4 L (27.0-33.0) pg MCHC 32.1 (31.0-35.0) g/dl RDW 14.4 (11.0-16.0) % Plt Count 231 (160-400) X10*3/uL MPV 9.4 (9.4-12.3) fL Immature Gran % (Auto) 0.0 (0.0-0.4) % Neut % (Auto) 35.8 L (45-73) % Lymph % (Auto) 54.0 H (20-40) % [place] % (Auto) 8.2 (2-11) % Eos % (Auto) 1.7 (0-4) % Baso % (Auto) 0.3 (0-2) % Lymph # (Auto) 1.9 (1.2-4.9) X10*3/uL [place] # (Auto) 0.3 (0.1-1.2) X10*3/uL Eos # (Auto) 0.1 (0.0-0.4) X10*3/uL Baso # (Auto) 0.0 (0.0-0.2) X10*3/uL Abs Immat Gran (auto) 0.00 (0.00-0.03) X10*3/uL Absolute Neuts (auto) 1.3 L (2.0-8.3) x10*3/uL Absolute Nucleated RBC 0.000 (0.0-0.012) X10*3/uL Nucleated RBC % (auto) 0.0 (0.0-0.2) /100WBC Sodium 143 (135-145) mmol/L Potassium 3.9 (3.3-5.1) mmol/L Chloride 109 H (96-108) mmol/L Carbon Dioxide 24 (22-29) mmol/L Anion Gap 14 (12-20) BUN 12 (9-16) mg/dL Creatinine 0.73 (0.5-1.4) mg/dL Estim Creat Clear Calc 72.7 Estimated GFR > 60 Random Glucose 104 (60-115) mg/dL Calcium 8.6 D (8.4-10.2) mg/dL Magnesium 2.0 (1.6-2.6) mg/dL Total Bilirubin 0.3 (0.0-1.0) mg/dL AST 20 (5-31) U/L ALT 15 (0-31) U/L Alkaline Phosphatase 88 (39-117) U/L Total Protein 6.8 (6.5-8.0) g/dL Albumin 3.8 (3.5-5.0) g/dL Urine Color [place] A Urine Appearance Cloudy Urine pH 7.0 (5.0-9.0) Ur Specific [place] 1.015 (1.005-1.025) Urine Protein 30 (1+) H (Neg-Trace) mg/dL Urine Glucose (UA) Negative (Negative) mg/dL Urine Ketones Negative (Negative) mg/dL Urine Blood Large (3+) H (Negative) Urine Nitrite Negative (Negative) Ur Leukocyte Esterase Trace H (Negative) Urine RBC >20 H (0-2) /HPF Urine WBC 0-5 (0-5) /HPF Ur Squamous Epith Cells >20 (0-2) /HPF Urine Bacteria Trace (None Seen) Hyaline Casts 0-2 (0-2) /LPF External Record Review External record reviewed: Inpatient record, Office record, Outpatient record, Prior outpatient labs, Prior outpatient radiology, Primary care record and Outside ED record Chronic Conditions Patient?s care impacted by: Other (recurent UTI, kidney stones ) Critical Care Time Critical Care Time Critical Care Time: Yes Total Critical Care Time: 35 Attestation: I attest to this time spent taking care of the patient, obtaining history, physical, reviewing labs, imaging, treatment of patients condition +/- specialist/hospitalist consult Discharge Plan Discharge Clinical Impression: Angiomyolipoma of kidney, Acute right flank pain, UTI (urinary tract infection) Patient Disposition: Home, Self-Care Instructions: Urinary Tract Infection in Women (ED), Flank Pain (ED), Lipoma (ED) Additional Instructions: Take your medications as prescribed. If you were prescribed antibiotics today, it is important that you take your medication to their entirety, do not skip any doses, do not finish them early. Follow-up with your primary care provider this week. Return to the emergency department with new or worsening symptoms. Such as fevers, chills, chest pain, shortness of breath, nausea, vomiting, dizziness, headache, vision changes, lethargy In case of emergency call 911 Follow-up with urology CT/CT abdomen pelvis wo IV con IMPRESSION: Bilateral nonobstructing renal calculi. No hydronephrosis. 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 Prescriptions: New cefdinir 300 mg capsule 300 mg PO BID 5 Days Qty: 10 0RF acetaminophen [Tylenol] 325 mg capsule 650 mg PO Q6H PRN (Reason: pain) Qty: 30 0RF No Action quetiapine 25 mg tablet 1 tab PO BID PRN (Reason: anxiety) atorvastatin 10 mg tablet 1 tab PO DAILY polyvinyl alcohol [Artificial Tears (polyvin alc)] 1.4 % drops 1 drp ophthalmic (eye) TID ondansetron HCl 4 mg tablet 1 tab PO Q8H PRN (Reason: nausea) gabapentin 400 mg capsule 1 cap PO BEDTIME topiramate 25 mg tablet 1 tab PO BID clonidine HCl 0.2 mg tablet 1 tab PO BID PRN (Reason: panic attack) cyanocobalamin (vitamin B-12) 500 mcg tablet 1 tab PO DAILY ascorbic acid (vitamin C) 250 mg tablet 1 tab PO BID amlodipine 10 mg tablet 1 tab PO DAILY mirtazapine 30 mg tablet 1 tab PO BEDTIME mirtazapine 30 mg tablet 1 tab PO BEDTIME docusate sodium 100 mg capsule 1 - 2 cap PO BEDTIME PRN (Reason: constipation) gabapentin 100 mg capsule 1 cap PO TID PRN (Reason: anxiety) zolpidem 10 mg tablet 1 tab PO BEDTIME PRN (Reason: insomnia) albuterol sulfate [ProAir HFA] 90 mcg/actuation HFA aerosol inhaler 2 puff PO Q4-6H PRN (Reason: dyspnea) fluoxetine 20 mg capsule 3 cap PO QAM loratadine 10 mg tablet 1 tab PO DAILY loratadine 10 mg tablet 1 tab PO DAILY tramadol 50 mg tablet 50 mg PO Q8H PRN (Reason: pain) Qty: 3 0RF morphine 15 mg tablet 15 mg PO BID PRN (Reason: pain) Qty: 8 0RF cefuroxime axetil 250 mg tablet 250 mg PO BID 7 Days Qty: 14 0RF nitrofurantoin monohyd/m-cryst [Macrobid] 100 mg capsule 100 mg PO BID Qty: 14 0RF Rx Instructions: must administer with a meal/food phenazopyridine [Pyridium] 100 mg tablet 100 mg PO TID PRN (Reason: pain) Qty: 6 0RF sennosides [senna] 8.6 mg tablet 8.6 mg PO BEDTIME Qty: 14 0RF docusate sodium [Colace] 100 mg capsule 100 mg PO BID Qty: 20 0RF docusate sodium [Colace] 100 mg capsule 100 mg PO BID PRN (Reason: Constipation) Qty: 14 0RF ondansetron 4 mg tablet,disintegrating 4 mg PO Q6H Qty: 14 0RF nitrofurantoin monohyd/m-cryst [Macrobid] 100 mg capsule 100 mg PO BID 7 Days Qty: 14 0RF Rx Instructions: must administer with a meal/food cephalexin 500 mg capsule 500 mg PO Q8H 7 Days Qty: 21 0RF phenazopyridine [Pyridium] 200 mg tablet 200 mg PO TID PRN (Reason: pain) Qty: 6 0RF ondansetron 4 mg tablet,disintegrating 4 mg PO Q8H PRN (Reason: nausea and vomiting) Qty: 10 0RF Referrals: [facility] [Provider Group] - 1 day Amber Quiroz MD [Primary Care Provider] - 2 days Stand Alone Forms: Work/School Release Interventions: ED Discharge Assessment Last Done: 04/01/24 10:34 Discharge Date/Time: 04/01/24 10:35 Print Language: Cymro
[2024-04-01 07:23] LABS: MANUAL DIFF FLAG NO
[2024-04-01 07:25] LABS: Basophils Percent Auto 0.3 % (0-2); Eosinophils Absolute Auto 0.1 X10*3/uL (0.0-0.4); Eosinophils Percent Auto 1.7 % (0-4); Hematocrit 34.6 % (37.0-47.0); Hemoglobin 11.1 g/dl (12.0-16.0); Lymphocytes Absolute Auto 1.9 X10*3/uL (1.2-4.9); Mean Corpuscular HGB Conc 32.1 g/dl (31.0-35.0); Mean Corpuscular Hemoglobin 26.4 pg (27.0-33.0); Mean Corpuscular Volume 82.4 fL (80.0-98.0); Mean Platelet Volume 9.4 fL (9.4-12.3); Monocytes Absolute Auto 0.3 X10*3/uL (0.1-1.2); Monocytes Percent Auto 8.2 % (2-11); Neutrophils Absolute Auto 1.3 x10*3/uL (2.0-8.3); Neutrophils Percent Auto 35.8 % (45-73); Platelet Count 231 X10*3/uL (160-400); Red Cell Distribution Width 14.4 % (11.0-16.0); White Blood Count 3.5 X10*3/uL (4.8-10.8)
[2024-04-01] MEDS: predniSONE 20 MG TABLET PO (07:32)
[2024-04-01] MEDS: Tamsulosin HCL 0.4 MG CAPSULE PO (07:32)
[2024-04-01] MEDS: Morphine Sulfate 4 MG/ML CARTRIDGE IVPUSH (07:32)
[2024-04-01] MEDS: 0.9 % Sodium Chloride 1,000 ML 999 ML IV (07:33)
[2024-04-01 07:39] LABS: Alanine Aminotransferase 15 U/L (0-31); Albumin Level 3.8 g/dL (3.5-5.0); Alkaline Phosphatase 88 U/L (39-117); Anion Gap 14 (12-20); Aspartate Amino Transferase 20 U/L (5-31); Bilirubin Total 0.3 mg/dL (0.0-1.0); Blood Urea Nitrogen 12 mg/dL (9-16); Calcium 8.6 mg/dL (8.4-10.2); Carbon Dioxide 24 mmol/L (22-29); Chloride 109 mmol/L (96-108); Creatinine Clr Calc Pharmacy 72.7; Estimated Glomerular Filt Rate > 60; Glucose Random 104 mg/dL (60-115); Potassium 3.9 mmol/L (3.3-5.1); Sodium 143 mmol/L (135-145); Total Protein 6.8 g/dL (6.5-8.0)
[2024-04-01] MEDS: HYDROmorphone HCl 1 MG/ML SYRINGE IVPUSH (08:10)
[2024-04-01 10:06] LABS: Appearance Urine Cloudy; Color Urine Orange; Glucose Urine UA Negative (Negative); Leukocyte Esterase Urine Trace (Negative); Nitrite Urine Negative (Negative); Specific Gravity - Urine 1.015 (1.005-1.025); UMIC TRIGGER UACC YES; Urine Blood Large (3+) (Negative); Urine Ketones Negative (Negative); Urine Protein 30 (1+) mg/dL (Neg-Trace)
[2024-04-01 10:07] LABS: Bacteria Urine Trace (None Seen); Hyaline Casts Urine 0-2 /LPF (0-2); RBC Urine >20 /HPF (0-2); Squamous Epithelial Cell Urine >20 /HPF (0-2); WBC Urine 0-5 /HPF (0-5)
[2024-04-01] MEDS: fentaNYL citrate/PF 100 MCG/2 ML VIAL 50 MCG IVPUSH (10:23)
== END 2024-04-01 10:35 | disposition home or self-care (01) ==
PROVIDERS: Physician Assistant; Emergency Provider Emergency Medicine; PCP Family Medicine
DX: N39.0 Urinary tract infection, site not specified (principal); R10.9 Unspecified abdominal pain; D17.71 Benign lipomatous neoplasm of kidney; Z79.899 Other long term (current) drug therapy
CPT/HCPCS: 36415; 74176; 80053; 81001; 81003; 83735; 85025; 96361; 96374; 96375; 99284; J1170; J2270; J3010

== ENCOUNTER 2024-07-15 15:08 | Emergency (ER) | payer MEDICAID, SELFPAY ==
--- NOTE | ~2024-07-15 | CT_ITS ---
EXAMINATION: CT ABDOMEN AND PELVIS WITHOUT CONTRAST CLINICAL INFORMATION: Right flank pain, hematuria, unable to pee . History of stones. COMPARISON: Numerous priors CTs of the abdomen and pelvis, numbering 43 at this institution since 01/22/2016, the most recent 04/01/2024. TECHNIQUE: Multidetector volumetric imaging was performed from the superior aspect of the liver through the pubic symphysis. Sagittal and coronal reformatted images were obtained on the technologist's workstation. This CT examination was performed using dose optimization techniques as appropriate, variously including the following: *Automated exposure control *Adjustment of mA and/or kV according to patient size (this includes techniques or standardized protocols for targeted exams where dose is matched to indication/reason for exam; i.e. extremities or head) *Use of iterative reconstruction technique DAP = 431 mGy-cm2 FINDINGS: LUNG BASES: The visualized lung bases are unremarkable. There are no effusions. Heart size is normal. LIVER, GALLBLADDER, AND BILIARY TREE: The liver is normal in size, shape, and attenuation. No focal hepatic lesion or biliary ductal dilatation is present. The gallbladder is unremarkable with no evidence of radiopaque gallstones, gallbladder wall thickening, or obvious pericholecystic inflammatory changes. PANCREAS: Unremarkable. SPLEEN: Unremarkable. ADRENAL GLANDS: Unremarkable. KIDNEYS AND URETERS: -Right kidney demonstrates approximately four 2-3 mm calculi, nonobstructing. No hydronephrosis or hydroureter. 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 -Left kidney demonstrates approximately five 2-3 mm calculi, nonobstructing. No hydronephrosis or hydroureter. There is no mass lesion identified. -There is a 3 mm calculus present in the most distal right ureter, which appears nonobstructing (series 3, image 64). This was not present on the prior exam. BLADDER: Normal in appearance. No wall thickening, stone, or mass identified. GASTROINTESTINAL TRACT: -The stomach is distended with a recent meal. -Normal duodenum and small bowel. -The large bowel is unremarkable. The appendix is unremarkable. -No rectal abnormality. ABDOMINAL WALL: No significant hernia is appreciated. LYMPH NODES: -No abnormal lymphadenopathy present. VASCULAR: -Mild vascular calcifications. No aortic aneurysm. PELVIC VISCERA: -Uterus and adnexal structures appear normal. OSSEOUS STRUCTURES: -No acute findings. There is a hemangioma in the L3 vertebral body. Mild degenerative facet changes present L4-S1. -Mild degenerative hip joint changes bilaterally. CT/CT abdomen pelvis wo IV con IMPRESSION: 1. There is a nonobstructing 3 mm calculus in the most distal right ureter, just proximal to the right UVJ . There is no hydronephrosis. 2. Bilateral nonobstructing nephrolithiasis. 3. Normal urinary bladder. 4. Additional ancillary findings as discussed in the body of the report. Electronically signed by: Eliezer Whyte MD 07/15/2024 04:54 PM EST
[2024-07-15 15:16] VITALS: BP 143/87; PULSE 94; O2SAT 98
--- NOTE | 2024-07-15 15:16 | ED.ABDPAIN ---
HPI - Abdominal Pain General Chief Complaint: Abdominal Pain Stated Complaint: R FLANK PAIN,H/O KIDNEY STONE PER EMS Time Seen by Provider: 07/15/24 15:15 Source: patient, EMS, RN notes reviewed and old records reviewed Mode of arrival: EMS History of Present Illness ED Provider: Daksha Mckinnon PA-C HPI narrative: 58-year-old female with a past medical history HTN, anemia, HLD, DVT, renal stones, presenting to the ED via EMS c/o right flank paid radiating to lower abdomen with associated nausea, vomiting, & hematuria since last night. Admits symptoms are similar to prior kidney stones. States now she is unable to urinate. Denies fever, chills, diarrhea/constipation. Patient received 200 mcg of fentanyl [employer] with no relief Related Data Home Medications ?Medication ?Instructions ?Recorded ?Confirmed albuterol sulfate 90 mcg/actuation 2 puff PO Q4-6H PRN dyspnea 11/26/20 11/26/20 aerosol inhaler (ProAir HFA) amlodipine 10 mg tablet 1 tab PO DAILY 11/26/20 11/26/20 ascorbic acid (vitamin C) 250 mg 1 tab PO BID 11/26/20 11/26/20 tablet atorvastatin 10 mg tablet 1 tab PO DAILY 11/26/20 11/26/20 clonidine HCl 0.2 mg tablet 1 tab PO BID PRN panic attack 11/26/20 11/26/20 cyanocobalamin (vitamin B-12) 500 1 tab PO DAILY 11/26/20 11/26/20 mcg tablet docusate sodium 100 mg capsule 1 - 2 cap PO BEDTIME PRN 11/26/20 11/26/20 constipation fluoxetine 20 mg capsule 3 cap PO QAM 11/26/20 11/26/20 gabapentin 100 mg capsule 1 cap PO TID PRN anxiety 11/26/20 11/26/20 gabapentin 400 mg capsule 1 cap PO BEDTIME 11/26/20 11/26/20 loratadine 10 mg tablet 1 tab PO DAILY 11/26/20 11/26/20 loratadine 10 mg tablet 1 tab PO DAILY 11/26/20 11/26/20 mirtazapine 30 mg tablet 1 tab PO BEDTIME 11/26/20 11/26/20 mirtazapine 30 mg tablet 1 tab PO BEDTIME 11/26/20 11/26/20 ondansetron HCl 4 mg tablet 1 tab PO Q8H PRN nausea 11/26/20 11/26/20 polyvinyl alcohol 1.4 % eye drops 1 drp ophthalmic (eye) TID 11/26/20 11/26/20 (Artificial Tears (polyvinyl alcohol)) quetiapine 25 mg tablet 1 tab PO BID PRN anxiety 11/26/20 11/26/20 topiramate 25 mg tablet 1 tab PO BID 11/26/20 11/26/20 zolpidem 10 mg tablet 1 tab PO BEDTIME PRN insomnia 11/26/20 11/26/20 Previous Rx's ?Medication ?Instructions ?Recorded tramadol 50 mg tablet 50 mg PO Q8H PRN pain #3 tabs 11/26/20 nitrofurantoin 100 mg PO BID #14 caps 05/26/21 monohydrate/macrocrystals 100 mg capsule (Macrobid) phenazopyridine 100 mg tablet 100 mg PO TID PRN pain 6 doses #6 05/26/21 (Pyridium) tabs cefuroxime axetil 250 mg tablet 250 mg PO BID 7 days #14 tabs 07/15/21 morphine 15 mg immediate release 15 mg PO BID PRN pain #8 tabs 07/15/21 tablet docusate sodium 100 mg capsule 100 mg PO BID #20 caps 07/21/21 (Colace) sennosides 8.6 mg tablet (senna) 8.6 mg PO BEDTIME #14 tabs 07/21/21 docusate sodium 100 mg capsule 100 mg PO BID PRN Constipation #14 11/23/21 (Colace) caps nitrofurantoin 100 mg PO BID uti 7 days #14 caps 11/23/21 monohydrate/macrocrystals 100 mg capsule (Macrobid) ondansetron 4 mg disintegrating 4 mg PO Q6H nausea/vomiting #14 11/23/21 tablet tabs cephalexin 500 mg capsule 500 mg PO Q8H 7 days #21 caps 08/02/22 ondansetron 4 mg disintegrating 4 mg PO Q8H PRN nausea and 03/02/23 tablet vomiting #10 tabs phenazopyridine 200 mg tablet 200 mg PO TID PRN pain 6 doses #6 03/02/23 (Pyridium) tabs acetaminophen 325 mg capsule 650 mg (2 x 325 mg) PO Q6H PRN 09/30/24 (Tylenol) pain #30 caps cefdinir 300 mg capsule 300 mg PO BID 5 days #10 caps 04/01/24 Allergies Allergy/AdvReac Type Severity Reaction Status Date / Time aspirin [ASA] Allergy Intermediate RASH, Verified 04/01/24 07:24 nausea and vomiting ibuprofen [IBUPROFEN] Allergy Intermediate RASH Verified 04/01/24 07:24 nicotine Allergy Intermediate RASH FROM Verified 04/01/24 07:24 NICOTINE PATCH, nausea and vomiting ketorolac [From TORADOL] Allergy Mild RAPID HR Verified 04/01/24 07:24 AND HIVES haloperidol [From Haldol] Allergy Anaphylaxis Verified 04/01/24 07:24 metoclopramide [From Reglan] Allergy Unknown Verified 07/15/24 15:28 Review of Systems Review of Systems Yes all other systems are reviewed and are negative Constitutional: Reports as per [facility] Past Medical History Attestation statement: The following information was validated with the patient. Source: old records reviewed Medical History delivery delivered HTN (hypertension) Anemia Hypercholesteremia DVT (deep venous thrombosis) Kidney stones Surgical History Total knee replacement status Social History Social History Unable to assess alcohol history related to: Unknown Alcohol intake: never Patient Tobacco Use Status: Current everyday Tobacco user Smoked in Last 30 Days: No Use of substances other than those prescribed or required for medical reasons: No Advance Directives: No Advance Directives Information Provided: Yes Do you have a plan to hurt others: No Plan Physical Exam ED Vital Signs: Vital Signs - 24 hr 07/15/24 15:18 07/15/24 15:32 Temperature 98.3 F 98.3 F Pulse Rate 90 90 Respiratory Rate 20 20 Blood Pressure 164/82 H 164/82 H Pulse Oximetry 95 95 Oxygen Delivery Method Room Air Room Air BMI result Body Mass Index 28.0 Const Other: tearful General: cooperative, healthy appearing and no acute distress Orientation/consciousness: patient oriented x3 Limitations: no limitations HENMT Head: Yes normal to inspection and Yes atraumatic Ears: hearing grossly normal bilaterally General nose exam: Normal external nose present Face and sinus: Yes normal facial exam Eyes General: appearance normal, both eyes and all related structures EOM: EOMs intact bilaterally Neck Neck: Yes normal visual inspection and Yes no meningeal signs Resp Effort & Inspection: normal respiratory effort and no respiratory distress Auscultation: clear to auscultation bilaterally Cardio Rate: regular rate Heart sounds: S1 normal heart sound present and S2 normal heart sound present GI Inspection: Yes normal to inspection Palpation (GI): Soft to palpation, Tenderness to palpation present (GI) suprapubicly, no guarding and not rigid General: Yes no CVA tenderness Back/Spine/Pelvis Back: no CVA tenderness Skin Rashes: no rashes Wounds: no wounds Neuro General: patient oriented x3, tone normal and no meningeal signs Cranial nerves: Yes CN's II-XII intact bilaterally Gait exam (Neuro): Normal gait present Extrem General: Yes normal to inspection Course Course Course Narrative: -1630-- ED care transferred to [facility] pending labs, UA & CT. Dispo per results Medical Decision Making Medical Decision Making [facility] Narrative: 58-year-old female with a past medical history HTN, anemia, HLD, DVT, renal stones, presenting to the ED via EMS c/o right flank paid radiating to lower abdomen with associated nausea, vomiting, & hematuria since last night. On exam vital signs stable, NAD, nontoxic appearing, abdomen soft with suprapubic tenderness, no CVAT. Tearful. Appears uncomfortable. Concern for renal stone. Rule out UTI/pyelo. Lower suspicion for appendicitis/diverticulitis or cholecystitis/lithiasis Plan: Labs, UA, CT AP, IVF, pain control, re-evaluate Please refer to course for remaining clinical decision making, interpretation of labs/imaging results, and discussions with consultants and/or family members. Differential Diagnosis Differential Diagnoses: The differential diagnosis associated with the presentation includes As above Admission/Observation Consideration of admission/observation: Escalation of care including admission/observation considered Lab Data MDM Lab Attestation statement: I reviewed the patient's lab results. 07/15/24 15:47 07/15/24 15:47 Labs: Lab Results 07/15/24 Range/Units 15:47 WBC 4.3 L (4.8-10.8) X10*3/uL RBC 4.33 (4.20-5.50) X10*6/uL Hgb 11.6 L (12.0-16.0) g/dl Hct 35.4 L (37.0-47.0) % MCV 81.8 (80.0-98.0) fL MCH 26.8 L (27.0-33.0) pg MCHC 32.8 (31.0-35.0) g/dl RDW 14.6 (11.0-16.0) % Plt Count 236 (160-400) X10*3/uL MPV 9.1 L (9.4-12.3) fL Immature Gran % (Auto) 0.2 (0.0-0.4) % Neut % (Auto) 46.3 (45-73) % Lymph % (Auto) 44.7 H (20-40) % [place] % (Auto) 6.5 (2-11) % Eos % (Auto) 1.6 (0-4) % Baso % (Auto) 0.7 (0-2) % Lymph # (Auto) 1.9 (1.2-4.9) X10*3/uL [place] # (Auto) 0.3 (0.1-1.2) X10*3/uL Eos # (Auto) 0.1 (0.0-0.4) X10*3/uL Baso # (Auto) 0.0 (0.0-0.2) X10*3/uL Abs Immat Gran (auto) 0.01 (0.00-0.03) X10*3/uL Absolute Neuts (auto) 2.0 (2.0-8.3) x10*3/uL Absolute Nucleated RBC 0.000 (0.0-0.012) X10*3/uL Nucleated RBC % (auto) 0.0 (0.0-0.2) /100WBC Independent Interpretation I performed an independent interpretation of an: CT Scan Radiology Impression Discussion of test interpretation with radiology: I have reviewed the radiologist's reading. Independent Historian Clinical information obtained from an independent historian. History obtained from or confirmed by: EMS External Record Review External record reviewed: Inpatient record, Office record, Outpatient record, Prior outpatient labs, Prior outpatient radiology, Primary care record and Outside ED record Tests considered The following testing was considered but not selected: As above Prescription Management I considered prescription management with: Pain Medication Chronic Conditions Patient?s care impacted by: Other Social Determinants Patient?s care significantly limited by Social Determinants of Health including: Other Social Determinant of Health Medications Administered Generic Name Dose Route Start Last Admin Trade Name Freq PRN Reason Stop Dose Admin Sodium Chloride 1,000 mls @ 999 mls/hr 07/15/24 15:30 07/15/24 15:44 Ns IV 07/15/24 16:30 999 mls/hr .Q1H1M ADELA Administration Discontinued Medications Generic Name Dose Route Start Last Admin Trade Name Freq PRN Reason Stop Dose Admin Morphine Sulfate 2 mg 07/15/24 15:25 07/15/24 15:44 Morphine Sulfate 2 Mg/Ml Cartridge IVPUSH 07/15/24 15:26 2 mg ONCE ONE Administration Protocol Discharge Plan Discharge Clinical Impression: Acute right flank pain Patient Disposition: Still a Patient Prescriptions: No Action quetiapine 25 mg tablet 1 tab PO BID PRN (Reason: anxiety) atorvastatin 10 mg tablet 1 tab PO DAILY polyvinyl alcohol [Artificial Tears (polyvin alc)] 1.4 % drops 1 drp ophthalmic (eye) TID ondansetron HCl 4 mg tablet 1 tab PO Q8H PRN (Reason: nausea) gabapentin 400 mg capsule 1 cap PO BEDTIME topiramate 25 mg tablet 1 tab PO BID clonidine HCl 0.2 mg tablet 1 tab PO BID PRN (Reason: panic attack) cyanocobalamin (vitamin B-12) 500 mcg tablet 1 tab PO DAILY ascorbic acid (vitamin C) 250 mg tablet 1 tab PO BID amlodipine 10 mg tablet 1 tab PO DAILY mirtazapine 30 mg tablet 1 tab PO BEDTIME mirtazapine 30 mg tablet 1 tab PO BEDTIME docusate sodium 100 mg capsule 1 - 2 cap PO BEDTIME PRN (Reason: constipation) gabapentin 100 mg capsule 1 cap PO TID PRN (Reason: anxiety) zolpidem 10 mg tablet 1 tab PO BEDTIME PRN (Reason: insomnia) albuterol sulfate [ProAir HFA] 90 mcg/actuation HFA aerosol inhaler 2 puff PO Q4-6H PRN (Reason: dyspnea) fluoxetine 20 mg capsule 3 cap PO QAM loratadine 10 mg tablet 1 tab PO DAILY loratadine 10 mg tablet 1 tab PO DAILY tramadol 50 mg tablet 50 mg PO Q8H PRN (Reason: pain) Qty: 3 0RF morphine 15 mg tablet 15 mg PO BID PRN (Reason: pain) Qty: 8 0RF cefuroxime axetil 250 mg tablet 250 mg PO BID 7 Days Qty: 14 0RF nitrofurantoin monohyd/m-cryst [Macrobid] 100 mg capsule 100 mg PO BID Qty: 14 0RF Rx Instructions: must administer with a meal/food phenazopyridine [Pyridium] 100 mg tablet 100 mg PO TID PRN (Reason: pain) Qty: 6 0RF sennosides [senna] 8.6 mg tablet 8.6 mg PO BEDTIME Qty: 14 0RF docusate sodium [Colace] 100 mg capsule 100 mg PO BID Qty: 20 0RF docusate sodium [Colace] 100 mg capsule 100 mg PO BID PRN (Reason: Constipation) Qty: 14 0RF ondansetron 4 mg tablet,disintegrating 4 mg PO Q6H Qty: 14 0RF nitrofurantoin monohyd/m-cryst [Macrobid] 100 mg capsule 100 mg PO BID 7 Days Qty: 14 0RF Rx Instructions: must administer with a meal/food cephalexin 500 mg capsule 500 mg PO Q8H 7 Days Qty: 21 0RF phenazopyridine [Pyridium] 200 mg tablet 200 mg PO TID PRN (Reason: pain) Qty: 6 0RF ondansetron 4 mg tablet,disintegrating 4 mg PO Q8H PRN (Reason: nausea and vomiting) Qty: 10 0RF cefdinir 300 mg capsule 300 mg PO BID 5 Days Qty: 10 0RF acetaminophen [Tylenol] 325 mg capsule 650 mg PO Q6H PRN (Reason: pain) Qty: 30 0RF Print Language: Kinyarwanda
[2024-07-15 15:18] VITALS: BP 164/82; PULSE 90; RESP 20; TEMP 36.8; O2SAT 95; BMI 28.0
[2024-07-15 15:32] VITALS: BP 164/82; PULSE 90; RESP 20; TEMP 36.8; O2SAT 95
[2024-07-15] MEDS: Morphine Sulfate 2 MG/ML CARTRIDGE IVPUSH ×2 (15:44→16:33)
[2024-07-15] MEDS: 0.9 % Sodium Chloride 1,000 ML 999 ML IV (15:44)
[2024-07-15 15:50] LABS: MANUAL DIFF FLAG NO
[2024-07-15 15:54] LABS: Basophils Percent Auto 0.7 % (0-2); Eosinophils Absolute Auto 0.1 X10*3/uL (0.0-0.4); Eosinophils Percent Auto 1.6 % (0-4); Hematocrit 35.4 % (37.0-47.0); Hemoglobin 11.6 g/dl (12.0-16.0); Imm Gran Abs Auto 0.01 X10*3/uL (0.00-0.03); Imm Gran Pct Auto 0.2 % (0.0-0.4); Lymphocytes Absolute Auto 1.9 X10*3/uL (1.2-4.9); Lymphocytes Percent Auto 44.7 % (20-40); Mean Corpuscular HGB Conc 32.8 g/dl (31.0-35.0); Mean Corpuscular Hemoglobin 26.8 pg (27.0-33.0); Mean Corpuscular Volume 81.8 fL (80.0-98.0); Mean Platelet Volume 9.1 fL (9.4-12.3); Monocytes Absolute Auto 0.3 X10*3/uL (0.1-1.2); Monocytes Percent Auto 6.5 % (2-11); Neutrophils Percent Auto 46.3 % (45-73); Platelet Count 236 X10*3/uL (160-400); Red Blood Count 4.33 X10*6/uL (4.20-5.50); Red Cell Distribution Width 14.6 % (11.0-16.0); White Blood Count 4.3 X10*3/uL (4.8-10.8)
[2024-07-15 16:07] LABS: Alanine Aminotransferase 18 U/L (0-31); Albumin Level 3.9 g/dL (3.5-5.0); Alkaline Phosphatase 86 U/L (39-117); Anion Gap 10 (12-20); Aspartate Amino Transferase 24 U/L (5-31); Bilirubin Direct < 0.2 mg/dL (0.0-0.5); Bilirubin Total 0.2 mg/dL (0.0-1.0); Blood Urea Nitrogen 12 mg/dL (9-16); Calcium 8.1 mg/dL (8.4-10.2); Carbon Dioxide 26 mmol/L (22-29); Chloride 113 mmol/L (96-108); Creatinine Clr Calc Pharmacy 73.8; Estimated Glomerular Filt Rate > 60; Glucose Random 137 mg/dL (60-115); Lipase 32 U/L (8-78); Magnesium 1.8 mg/dL (1.6-2.6); Potassium 3.6 mmol/L (3.3-5.1); Sodium 145 mmol/L (135-145); Total Protein 6.7 g/dL (6.5-8.0)
[2024-07-15 16:33] VITALS: RESP 22
[2024-07-15 16:52] LABS: Appearance Urine Hazy; Color Urine Other; Glucose Urine UA Negative (Negative); Leukocyte Esterase Urine Negative (Negative); Nitrite Urine Positive (Negative); PH 5.5 (5.0-9.0); Specific Gravity - Urine 1.025 (1.005-1.025); UMIC TRIGGER UACC YES; Urine Blood Large (3+) (Negative); Urine Ketones Negative (Negative); Urine Protein 100 (2+) mg/dL (Neg-Trace)
[2024-07-15 16:58] LABS: Bacteria Urine None Seen (None Seen); Hyaline Casts Urine 0-2 /LPF (0-2); RBC Urine >20 /HPF (0-2); UACC Culture Trigger YES; WBC Urine 0-5 /HPF (0-5)
[2024-07-15 17:16] VITALS: RESP 24
[2024-07-15] MEDS: Tamsulosin HCL 0.4 MG CAPSULE PO (17:16)
[2024-07-15] MEDS: HYDROmorphone HCl 1 MG/ML SYRINGE IVPUSH (17:16)
[2024-07-15] MEDS: cefTRIAXone sodium 2 GM VIAL IVPUSH (18:23)
[2024-07-15] MEDS: Acetaminophen 1,000 MG/100 ML PIGGYBACK 400 MG IV (18:24)
[2024-07-15] MEDS: diphenhydrAMINE HCL 50 MG/ML VIAL 25 MG IVPUSH (18:24)
--- NOTE | 2024-07-15 18:37 | PC.NURSE ---
Pt. audibly crying in bui, stating that she needs pain medication. This RN brought over the ordered IV Tylenol for pt. Pt. refused Tylenol and Compazine, stating I only want Dilaudid . [facility] Rizvi notified
[2024-07-15] MEDS: oxyCODONE HCl Immed Release 5 MG TABLET 10 MG PO (19:11)
[2024-07-15] MEDS: Ondansetron ODT 4 MG TAB.RAPDIS TRANSLINGU (19:11)
[2024-07-15 19:19] VITALS: BP 164/82; PULSE 90; RESP 20; TEMP 36.8; O2SAT 95
== END 2024-07-15 19:21 | disposition home or self-care (01) ==
PROVIDERS: Physician Assistant; Emergency Provider Emergency Medicine; PCP Family Medicine
DX: R10.9 Unspecified abdominal pain (principal); I10 Essential (primary) hypertension; E78.00 Pure hypercholesterolemia, unspecified; F17.200 Nicotine dependence, unspecified, uncomplicated; Z86.718 Personal history of other venous thrombosis and embolism; Z87.442 Personal history of urinary calculi; Z79.02 Long term (current) use of antithrombotics/antiplatelets; Z79.899 Other long term (current) drug therapy
CPT/HCPCS: 36415; 74176; 80048; 80076; 81001; 83690; 83735; 85025; 87040; 87086; 96361; 96365; 96375; 96376; 99284; J0131; J0696; J0737; J1171; J1200; J2270

== ENCOUNTER → 2024-07-15 15:23 | Outpatient (BNV) | payer MEDICAID, SELFPAY | PROVIDERS: Emergency Provider Emergency Medicine; PCP Family Medicine; Visit Provider Radiology Diagnostic Radiology | DX: N20.2 Calculus of kidney with calculus of ureter (principal) | CPT/HCPCS: 74176 ==

== ENCOUNTER 2024-08-14 09:30 | Emergency (ER) | payer MEDICAID, SELFPAY ==
--- NOTE | ~2024-08-14 | CT_ITS ---
EXAMINATION: CT ABDOMEN PELVIS WITHOUT IV CONTRAST HISTORY: R flank pain, hx stones COMPARISON: Comparison is made with the prior examination dated 07/15/2024. TECHNIQUE: CT scan of the abdomen and pelvis was performed without contrast using standard departmental protocol. Coronal and sagittal reformatted images were generated and reviewed. Oral contrast material was not administered per department protocol. This CT exam was performed with one or more of the following dose reduction techniques: automated exposure control, adjustment of the mA and/or kV according to patient size, use of iterative reconstruction technique. DLP: 365 mGy-cm FINDINGS: LOWER CHEST: The visualized lung bases are clear. There is no pleural effusion. CARDIOVASCULATURE: The heart is normal in size. There is no pericardial effusion. LIVER: The liver is normal in size and contour. The liver has an unremarkable unenhanced appearance. GALLBLADDER / BILE DUCTS: The gallbladder is unremarkable. There is no intra or extrahepatic biliary ductal dilatation. SPLEEN: The spleen is normal in size and has an unremarkable unenhanced appearance. PANCREAS: The pancreas has an unremarkable unenhanced appearance. ADRENAL GLANDS: Unremarkable. KIDNEYS/RETROPERITONEUM: Again seen is a 1.3 cm fat density mass at the upper pole of the right kidney, consistent with an angiomyolipoma. Multiple tiny bilateral renal calculi are noted measuring up to 2 mm in size. There is no hydronephrosis. No ureteral calculi are identified. LYMPH NODES: No retroperitoneal lymphadenopathy is identified in the abdomen or pelvis. VASCULATURE: The abdominal aorta is normal in caliber. MESENTERY/PERITONEUM: No free fluid. No masses. There is no free intraperitoneal gas. STOMACH: The stomach is collapsed, limiting evaluation. SMALL BOWEL: The small bowel is normal in caliber. COLON: The colon is unremarkable. APPENDIX: Normal. URINARY BLADDER/PELVIC ORGANS: The urinary bladder is collapsed, limiting evaluation. The uterus has an unremarkable unenhanced appearance. BONES / SOFT TISSUES: There is a tiny fat-containing umbilical hernia. The bones are intact. CT/CT abdomen pelvis wo IV con IMPRESSION: Bilateral nephrolithiasis as described, without evidence of ureteral obstruction. Electronically signed by: Misha Curtis MD 08/14/2024 11:31 AM [facility]
--- NOTE | 2024-08-14 09:37 | ED.GENADULT ---
HPI - General Adult General Chief complaint: Abdominal Pain Stated complaint: R FLANK TO GROIN PAIN,BLOODY URINE,H/O KID STONES Time Seen by Provider: 08/14/24 09:34 Source: patient, RN notes reviewed and old records reviewed Mode of arrival: ambulatory Limitations: no limitations History of Present Illness ED Provider: Lakesha HPI narrative: Patient is a 58-year-old female presenting to the emergency department with complaint of right flank pain radiating to lower abdomen which began yesterday. Also complains of hematuria/dark urine. Denies fevers. Reports nausea but denies vomiting denies diarrhea or constipation. Reports history of kidney stones and states that her symptoms feel similar. MD complaint: flank pain Onset (ago): day(s) Location: right Radiation: abdomen Severity: severe Quality: aching Pain Consistency: constant Treatments prior to arrival: none Related Data Home Medications ?Medication ?Instructions ?Recorded ?Confirmed albuterol sulfate 90 mcg/actuation 2 puff PO Q4-6H PRN dyspnea 11/26/20 11/26/20 aerosol inhaler (ProAir HFA) amlodipine 10 mg tablet 1 tab PO DAILY 11/26/20 11/26/20 ascorbic acid (vitamin C) 250 mg 1 tab PO BID 11/26/20 11/26/20 tablet atorvastatin 10 mg tablet 1 tab PO DAILY 11/26/20 11/26/20 clonidine HCl 0.2 mg tablet 1 tab PO BID PRN panic attack 11/26/20 11/26/20 cyanocobalamin (vitamin B-12) 500 1 tab PO DAILY 11/26/20 11/26/20 mcg tablet docusate sodium 100 mg capsule 1 - 2 cap PO BEDTIME PRN 11/26/20 11/26/20 constipation fluoxetine 20 mg capsule 3 cap PO QAM 11/26/20 11/26/20 gabapentin 100 mg capsule 1 cap PO TID PRN anxiety 11/26/20 11/26/20 gabapentin 400 mg capsule 1 cap PO BEDTIME 11/26/20 11/26/20 loratadine 10 mg tablet 1 tab PO DAILY 11/26/20 11/26/20 loratadine 10 mg tablet 1 tab PO DAILY 11/26/20 11/26/20 mirtazapine 30 mg tablet 1 tab PO BEDTIME 11/26/20 11/26/20 mirtazapine 30 mg tablet 1 tab PO BEDTIME 11/26/20 11/26/20 ondansetron HCl 4 mg tablet 1 tab PO Q8H PRN nausea 11/26/20 11/26/20 polyvinyl alcohol 1.4 % eye drops 1 drp ophthalmic (eye) TID 11/26/20 11/26/20 (Artificial Tears (polyvinyl alcohol)) quetiapine 25 mg tablet 1 tab PO BID PRN anxiety 11/26/20 11/26/20 topiramate 25 mg tablet 1 tab PO BID 11/26/20 11/26/20 zolpidem 10 mg tablet 1 tab PO BEDTIME PRN insomnia 11/26/20 11/26/20 Previous Rx's ?Medication ?Instructions ?Recorded tramadol 50 mg tablet 50 mg PO Q8H PRN pain #3 tabs 11/26/20 nitrofurantoin 100 mg PO BID #14 caps 05/26/21 monohydrate/macrocrystals 100 mg capsule (Macrobid) phenazopyridine 100 mg tablet 100 mg PO TID PRN pain 6 doses #6 05/26/21 (Pyridium) tabs cefuroxime axetil 250 mg tablet 250 mg PO BID 7 days #14 tabs 07/15/21 morphine 15 mg immediate release 15 mg PO BID PRN pain #8 tabs 07/15/21 tablet docusate sodium 100 mg capsule 100 mg PO BID #20 caps 07/21/21 (Colace) sennosides 8.6 mg tablet (senna) 8.6 mg PO BEDTIME #14 tabs 07/21/21 docusate sodium 100 mg capsule 100 mg PO BID PRN Constipation #14 11/23/21 (Colace) caps nitrofurantoin 100 mg PO BID uti 7 days #14 caps 11/23/21 monohydrate/macrocrystals 100 mg capsule (Macrobid) ondansetron 4 mg disintegrating 4 mg PO Q6H nausea/vomiting #14 11/23/21 tablet tabs cephalexin 500 mg capsule 500 mg PO Q8H 7 days #21 caps 08/02/22 ondansetron 4 mg disintegrating 4 mg PO Q8H PRN nausea and 03/02/23 tablet vomiting #10 tabs phenazopyridine 200 mg tablet 200 mg PO TID PRN pain 6 doses #6 03/02/23 (Pyridium) tabs acetaminophen 325 mg capsule 650 mg (2 x 325 mg) PO Q6H PRN 04/01/24 (Tylenol) pain #30 caps cefdinir 300 mg capsule 300 mg PO BID 5 days #10 caps 04/01/24 cephalexin 500 mg capsule 500 mg PO BID #14 caps 07/15/24 ondansetron HCl 4 mg tablet 4 mg PO Q8H PRN nausea and 07/15/24 vomiting #10 tabs oxycodone 5 mg tablet 5 mg PO Q6H PRN pain, moderate #10 07/15/24 tabs tamsulosin 0.4 mg capsule (Flomax) 0.4 mg PO DAILY #6 caps 07/15/24 dicyclomine 10 mg capsule 10 mg PO BID #14 caps 08/14/24 ondansetron 4 mg disintegrating 4 mg PO Q8H PRN nausea and 08/14/24 tablet vomiting #10 tabs Allergies Allergy/AdvReac Type Severity Reaction Status Date / Time aspirin [ASA] Allergy Intermediate RASH, Verified 08/14/24 09:57 nausea and vomiting ibuprofen [IBUPROFEN] Allergy Intermediate RASH Verified 08/14/24 09:57 nicotine Allergy Intermediate RASH FROM Verified 08/14/24 09:57 NICOTINE PATCH, nausea and vomiting ketorolac [From TORADOL] Allergy Mild RAPID HR Verified 08/14/24 09:57 AND HIVES haloperidol [From Haldol] Allergy Anaphylaxis Verified 08/14/24 09:57 metoclopramide [From Reglan] Allergy Unknown Verified 08/14/24 09:57 Review of Systems Review of Systems: As per hpi Yes all other systems are reviewed and are negative Constitutional: Constitutional: Reports as per [facility]PI [facility] Past Medical History Medical History delivery delivered HTN (hypertension) Anemia Hypercholesteremia DVT (deep venous thrombosis) Kidney stones Surgical History Total knee replacement status Social History Social History Unable to assess alcohol history related to: Unknown Alcohol intake: never Patient Tobacco Use Status: Current everyday Tobacco user Smoked in Last 30 Days: Yes Use of substances other than those prescribed or required for medical reasons: No Advance Directives: No Advance Directives Information Provided: Yes Do you have a plan to hurt others: No Plan Patient : No Physical Exam ED Vital Signs: Vital Signs - 24 hr 08/14/24 09:56 08/14/24 11:55 08/14/24 12:17 Temperature 97.9 F Pulse Rate 84 64 Respiratory Rate 18 18 18 Blood Pressure 126/61 123/64 Pulse Oximetry 99 99 Oxygen Delivery Method Room Air Room Air BMI result Body Mass Index 22.1 Vital signs have been reviewed and appear to be correct. Blood pressure normal. Heart rate normal. Respiratory rate normal. Temperature normal. Oxygen saturation normal. Const General: cooperative, healthy appearing and no acute distress Orientation/consciousness: oriented to person, oriented to place, oriented to time and patient oriented x3 Limitations: no limitations HENMT Head: Yes normocephalic and Yes atraumatic Ears: external ears normal General nose exam: Normal external nose present Face and sinus: Yes face symmetric Mouth: oropharynx normal and moist mucous membranes Throat: Yes uvula midline Eyes Pupils: Equal, round and reactive pupils present Neck Neck: Yes normal visual inspection and Yes supple Resp Effort & Inspection: normal respiratory effort and able to speak in complete sentences Auscultation: clear to auscultation bilaterally Cardio Rate: regular rate Rhythm: regular rhythm Heart sounds: S1 normal heart sound present and S2 normal heart sound present GI Palpation (GI): Soft to palpation and nontender Auscultation: normoactive bowel sounds General: Yes no CVA tenderness Back/Spine/Pelvis Back: no CVA tenderness Skin General skin exam: elasticity normal and turgor normal Neuro General: oriented to person, oriented to place, oriented to time, patient oriented x3, moves all extremities, no focal motor deficits and CN's II-XI intact bilaterally Cranial nerves: Yes Equal, round and reactive pupils present Cognition (Neuro): normal cognition Extrem General: Yes full ROM, Yes no pedal edema and Yes no calf tenderness Psych Mental Status: mental status grossly normal Affect: normal affect Thought process: Normal thought process present Medications Administered Discontinued Medications Generic Name Dose Route Start Last Admin Trade Name Freq PRN Reason Stop Dose Admin Sodium Chloride 1,000 mls @ 999 mls/hr 08/14/24 10:00 08/14/24 11:33 Ns IV 08/14/24 11:00 Infused .Q1H1M ADELA Infusion Morphine Sulfate 4 mg 08/14/24 09:57 08/14/24 10:18 Morphine Sulfate 4 Mg/Ml Cartridge IVPUSH 08/14/24 09:58 4 mg ONCE ONE Administration Protocol Morphine Sulfate 2 mg 08/14/24 11:49 08/14/24 11:55 Morphine Sulfate 2 Mg/Ml Cartridge IVPUSH 08/14/24 11:50 2 mg ONCE ONE Administration Protocol Ondansetron HCl 4 mg 08/14/24 09:57 08/14/24 10:18 Ondansetron Hcl 4 Mg/2 Ml Vial IVPUSH 08/14/24 09:58 4 mg ONCE ONE Administration Medical Decision Making Medical Decision Making [facility] Narrative: Patient is a 58-year-old female presenting to the emergency department with complaint of right flank pain radiating to lower abdomen which began yesterday. On exam patient is awake, A+Ox3, VS WNL, afebrile, normal neurological exam without focal deficits, physical exam findings as above. Given reported symptoms and physical exam findings, initial differential includes but is not limited to UTI, pyelonephritis, renal colic, ureteral calculi, hydronephrosis. Labs unremarkable. UA is without evidence of infection. CT A/P notable for no evidence of obstructing calculi or other explanation for patient's symptoms. My interpretation is in agreement with the radiologist's interpretation. Pain improved with medication given in the ED. Feel patient is stable for discharge home, follow up with PCP. Will send prescriptions for bentyl, zofran. Return precautions discussed at bedside. Patient verbalized understanding of and agreement with plan. Differential Diagnosis Differential Diagnoses: The differential diagnosis associated with the presentation includes As per [facility] Admission/Observation Consideration of admission/observation: Escalation of care including admission/observation considered Patient would have been admitted to the hospital had their work up had any findings where hospital admission was appropriate and their clinical presentation warranted hospital admission. Lab Data [facility] Lab Attestation statement: I reviewed the patient's lab results. As per [facility] 08/14/24 10:04 08/14/24 10:04 Labs: Lab Results 08/14/24 08/14/24 08/14/24 Range/Units 10:04 10:39 11:57 WBC 4.1 L (4.8-10.8) X10*3/uL RBC 4.64 (4.20-5.50) X10*6/uL Hgb 12.5 (12.0-16.0) g/dl Hct 37.9 (37.0-47.0) % MCV 81.7 (80.0-98.0) fL MCH 26.9 L (27.0-33.0) pg MCHC 33.0 (31.0-35.0) g/dl RDW 14.9 (11.0-16.0) % Plt Count 229 (160-400) X10*3/uL MPV 10.1 (9.4-12.3) fL Immature Gran % (Auto) 0.2 (0.0-0.4) % Neut % (Auto) 49.7 (45-73) % Lymph % (Auto) 41.0 H (20-40) % [place] % (Auto) 6.4 (2-11) % Eos % (Auto) 2.0 (0-4) % Baso % (Auto) 0.7 (0-2) % Lymph # (Auto) 1.7 (1.2-4.9) X10*3/uL [place] # (Auto) 0.3 (0.1-1.2) X10*3/uL Eos # (Auto) 0.1 (0.0-0.4) X10*3/uL Baso # (Auto) 0.0 (0.0-0.2) X10*3/uL Abs Immat Gran (auto) 0.01 (0.00-0.03) X10*3/uL Absolute Neuts (auto) 2.0 (2.0-8.3) x10*3/uL Absolute Nucleated RBC 0.000 (0.0-0.012) X10*3/uL Nucleated RBC % (auto) 0.0 (0.0-0.2) /100WBC Sodium 143 (135-145) mmol/L Potassium 3.1 L (3.3-5.1) mmol/L Chloride 113 H (96-108) mmol/L Carbon Dioxide 22 (22-29) mmol/L Anion Gap 11 L (12-20) BUN 10 (9-16) mg/dL Creatinine 0.74 (0.5-1.4) mg/dL Estim Creat Clear Calc 61.7 Estimated GFR > 60 Random Glucose 109 (60-115) mg/dL Calcium 8.7 D (8.4-10.2) mg/dL Total Bilirubin 0.4 (0.0-1.0) mg/dL AST 21 (5-31) U/L ALT 14 (0-31) U/L Alkaline Phosphatase 75 (39-117) U/L Total Protein 7.4 (6.5-8.0) g/dL Albumin 4.3 (3.5-5.0) g/dL Urine Color Yellow Urine Appearance Clear Urine pH 7.0 (5.0-9.0) Ur Specific [place] 1.015 (1.005-1.025) Urine Protein Negative (Neg-Trace) mg/dL Urine Glucose (UA) Negative (Negative) mg/dL Urine Ketones Negative (Negative) mg/dL Urine Blood Negative (Negative) Urine Nitrite Negative (Negative) Ur Leukocyte Esterase Negative (Negative) Influenza Type A (PCR) NEGATIVE (Negative) Influenza Type B (PCR) NEGATIVE (Negative) RSV RNA Qual (PCR) NEGATIVE (Negative) SARS-CoV-2 RNA (RT-PCR) NEGATIVE (Negative) Independent Interpretation I performed an independent interpretation of an: CT Scan Interpretation: CT A/P is without evidence of obstructing calculi or hydronephrosis Radiology Impression Discussion of test interpretation with radiology: I have reviewed the radiologist's reading. Radiologist Impression: CT/CT abdomen pelvis wo IV con IMPRESSION: Bilateral nephrolithiasis as described, without evidence of ureteral obstruction. External Record Review External record reviewed: Inpatient record, Office record and Outpatient record Prescription Management I considered prescription management with: Pain Medication and Other Discharge Plan Discharge Clinical Impression: Abdominal pain Patient Disposition: Home, Self-Care Instructions: Abdominal Pain (ED) Additional Instructions: You have been evaluated in the emergency department today for abdominal pain. Your evaluation did not show evidence of medical conditions requiring emergent intervention at this time. Please schedule an appointment with your primary care physician. Take medications as prescribed. Return to the emergency department if you experience worsening or uncontrolled pain, fevers 100.4? F or greater, recurrent vomiting, inability to tolerate food or fluids by mouth, bloody stools or vomit, black or tarry stools, or any other concerning symptoms. Prescriptions: New ondansetron 4 mg tablet,disintegrating 4 mg PO Q8H PRN (Reason: nausea and vomiting) Qty: 10 0RF dicyclomine 10 mg capsule 10 mg PO BID Qty: 14 0RF No Action quetiapine 25 mg tablet 1 tab PO BID PRN (Reason: anxiety) atorvastatin 10 mg tablet 1 tab PO DAILY polyvinyl alcohol [Artificial Tears (polyvin alc)] 1.4 % drops 1 drp ophthalmic (eye) TID ondansetron HCl 4 mg tablet 1 tab PO Q8H PRN (Reason: nausea) gabapentin 400 mg capsule 1 cap PO BEDTIME topiramate 25 mg tablet 1 tab PO BID clonidine HCl 0.2 mg tablet 1 tab PO BID PRN (Reason: panic attack) cyanocobalamin (vitamin B-12) 500 mcg tablet 1 tab PO DAILY ascorbic acid (vitamin C) 250 mg tablet 1 tab PO BID amlodipine 10 mg tablet 1 tab PO DAILY mirtazapine 30 mg tablet 1 tab PO BEDTIME mirtazapine 30 mg tablet 1 tab PO BEDTIME docusate sodium 100 mg capsule 1 - 2 cap PO BEDTIME PRN (Reason: constipation) gabapentin 100 mg capsule 1 cap PO TID PRN (Reason: anxiety) zolpidem 10 mg tablet 1 tab PO BEDTIME PRN (Reason: insomnia) albuterol sulfate [ProAir HFA] 90 mcg/actuation HFA aerosol inhaler 2 puff PO Q4-6H PRN (Reason: dyspnea) fluoxetine 20 mg capsule 3 cap PO QAM loratadine 10 mg tablet 1 tab PO DAILY loratadine 10 mg tablet 1 tab PO DAILY tramadol 50 mg tablet 50 mg PO Q8H PRN (Reason: pain) Qty: 3 0RF morphine 15 mg tablet 15 mg PO BID PRN (Reason: pain) Qty: 8 0RF cefuroxime axetil 250 mg tablet 250 mg PO BID 7 Days Qty: 14 0RF nitrofurantoin monohyd/m-cryst [Macrobid] 100 mg capsule 100 mg PO BID Qty: 14 0RF Rx Instructions: must administer with a meal/food phenazopyridine [Pyridium] 100 mg tablet 100 mg PO TID PRN (Reason: pain) Qty: 6 0RF sennosides [senna] 8.6 mg tablet 8.6 mg PO BEDTIME Qty: 14 0RF docusate sodium [Colace] 100 mg capsule 100 mg PO BID Qty: 20 0RF docusate sodium [Colace] 100 mg capsule 100 mg PO BID PRN (Reason: Constipation) Qty: 14 0RF ondansetron 4 mg tablet,disintegrating 4 mg PO Q6H Qty: 14 0RF nitrofurantoin monohyd/m-cryst [Macrobid] 100 mg capsule 100 mg PO BID 7 Days Qty: 14 0RF Rx Instructions: must administer with a meal/food cephalexin 500 mg capsule 500 mg PO Q8H 7 Days Qty: 21 0RF phenazopyridine [Pyridium] 200 mg tablet 200 mg PO TID PRN (Reason: pain) Qty: 6 0RF ondansetron 4 mg tablet,disintegrating 4 mg PO Q8H PRN (Reason: nausea and vomiting) Qty: 10 0RF cephalexin 500 mg capsule 500 mg PO BID Qty: 14 0RF ondansetron HCl 4 mg tablet 4 mg PO Q8H PRN (Reason: nausea and vomiting) Qty: 10 0RF tamsulosin [Flomax] 0.4 mg capsule 0.4 mg PO DAILY Qty: 6 0RF oxycodone 5 mg tablet 5 mg PO Q6H PRN (Reason: pain, moderate) Qty: 10 0RF Rx Instructions: Partial Fill upon patient request. cefdinir 300 mg capsule 300 mg PO BID 5 Days Qty: 10 0RF acetaminophen [Tylenol] 325 mg capsule 650 mg PO Q6H PRN (Reason: pain) Qty: 30 0RF Print Language: Somali
[2024-08-14 09:56] VITALS: BP 126/61; BP 148/96; PULSE 84; PULSE 96; RESP 18; TEMP 36.6; O2SAT 100; O2SAT 99; BMI 22.1
[2024-08-14] MEDS: ondansetron HCL 4 MG/2 ML VIAL IVPUSH (10:18)
[2024-08-14] MEDS: Morphine Sulfate 4 MG/ML CARTRIDGE IVPUSH (10:18)
[2024-08-14] MEDS: 0.9 % Sodium Chloride 1,000 ML 999 ML IV (10:19)
[2024-08-14 10:33] LABS: MANUAL DIFF FLAG NO
[2024-08-14 10:36] LABS: Basophils Percent Auto 0.7 % (0-2); Eosinophils Absolute Auto 0.1 X10*3/uL (0.0-0.4); Hematocrit 37.9 % (37.0-47.0); Hemoglobin 12.5 g/dl (12.0-16.0); Imm Gran Abs Auto 0.01 X10*3/uL (0.00-0.03); Imm Gran Pct Auto 0.2 % (0.0-0.4); Lymphocytes Absolute Auto 1.7 X10*3/uL (1.2-4.9); Mean Corpuscular Hemoglobin 26.9 pg (27.0-33.0); Mean Corpuscular Volume 81.7 fL (80.0-98.0); Mean Platelet Volume 10.1 fL (9.4-12.3); Monocytes Absolute Auto 0.3 X10*3/uL (0.1-1.2); Monocytes Percent Auto 6.4 % (2-11); Neutrophils Percent Auto 49.7 % (45-73); Platelet Count 229 X10*3/uL (160-400); Red Blood Count 4.64 X10*6/uL (4.20-5.50); Red Cell Distribution Width 14.9 % (11.0-16.0); White Blood Count 4.1 X10*3/uL (4.8-10.8)
[2024-08-14 10:49] LABS: Alanine Aminotransferase 14 U/L (0-31); Albumin Level 4.3 g/dL (3.5-5.0); Alkaline Phosphatase 75 U/L (39-117); Anion Gap 11 (12-20); Aspartate Amino Transferase 21 U/L (5-31); Bilirubin Total 0.4 mg/dL (0.0-1.0); Blood Urea Nitrogen 10 mg/dL (9-16); Calcium 8.7 mg/dL (8.4-10.2); Carbon Dioxide 22 mmol/L (22-29); Chloride 113 mmol/L (96-108); Creatinine Clr Calc Pharmacy 61.7; Estimated Glomerular Filt Rate > 60; Glucose Random 109 mg/dL (60-115); Potassium 3.1 mmol/L (3.3-5.1); Sodium 143 mmol/L (135-145); Total Protein 7.4 g/dL (6.5-8.0)
[2024-08-14 11:23] LABS: Influenza A PCR NEGATIVE (Negative); Influenza B PCR NEGATIVE (Negative); Resp Syncy Virus RNA Qual PCR NEGATIVE (Negative); SARS COV2 PCR INHOUSE NEGATIVE (Negative)
--- OUTSIDE RECORDS SUMMARY | 2024-08-14 11:48 | XMS_ITS | Encounter Summary ---
Author Organization [employer] Address [address] [place] [address] Care Team Providers Care Vat Overhauler Name Role Phone Amber Quiroz MD Primary Care Provider [phone] Reason for Visit * Reason Onset Date Comments Appointment Request 11/22/2023 Encounter Details Date Type Department Care Team ([facility] st Contact Info) Description 11/22/2023 Telephone [facility] [address], [place] [phone] Amber Quiroz MD [address] [place], [place] [phone] Appointment Request Social History Tobacco Use Types Packs/Day Years Used Date Smoking Tobacco: Every Day Cigarettes Housing Stability Answer Date Recorded What is your housing situation today? I have olyedgar soria 05/08/[address] you li ve. Do you have problems with any of the following? None of the above 05/08/2023 Food Insecurity Answer Date Recorded Within the past 12 months, y ou worried that your food would run out before you got money to buy more: Never True 05/10/2023 Within the past 12 months,th e food you bought just didn't last and you didn't have enough money to get more: Never True 01/2023 Transportation Answer Date Recorded In the past 12 months, has l ack of transportation kept you from medical appts, meetings, work or from getting things needed for daily living? Yes, it has kept me from medical appointments or getting medications. 05/08/2023 Utilities Answer Date Recorded In the past 12 months, has t he electric, gas, oil or water company threatened to shut off services in your home? No 05/08/2023 Comments Unknown Sex and Gender Information Value Date Recorded Sex Assigned at Female 05/02/2022 10:14 AM EDT Legal Sex Female 10:14 AM EDT Gender Identity Female 05/02/2022 10:14 AM EDT Sexual Orientation Straight 05/02/2022 10 :14 AM EDT documented as of this encounter Miscellaneous Notes * Telephone Encounter - Luis Dsouza - 11/22/2023 2:05 PM EDT Tc from pt requesting to reschedule HDF appt for today, pt stated she wasn't able to make it due tosleep difficulty. Please contact pt at [phone]. documented in this encounter Plan of Treatment Not on file documented as of this encounter Visit Diagnoses Not on filedocumented in this encounter Care Teams Vat Overhauler Relationship Specialty Start Date End Date Amber Quiroz MD [address] [place] [address] PCP - General Family Medicine 07/03/18 documented as of this encounter
--- OUTSIDE RECORDS SUMMARY | 2024-08-14 11:48 | XMS_ITS | Encounter Summary ---
Author Organization [employer] Address [address] [place] [address] Care Team Providers Care Negative Assembler Name Role Phone Amber Quiroz MD Primary Care Provider [phone] Encounter Details Date Type Department Care Team (Late st Contact Info) Description 11/16/2022 Abstract [facility]INE [address] [place], [place] [phone] Amber Quiroz MD [address] [place] [address] Social History Tobacco Use Types Packs/Day Years Used Date Smoking Tobacco: Never Assessed Comments Unknown Sex and Gender Information Value Date Recorded Sex Assigned at Female 05/02/2022 10:14 AM EDT Legal Sex Female 10:14 AM EDT Gender Identity Female 05/02/2022 10:14 AM EDT Sexual Orientation Straight 05/02/2022 10 :14 AM EDT documented as of this encounter Plan of Treatment Not on file documented as of this encounter Visit Diagnoses Not on filedocumented in this encounter Care Teams Negative Assembler Relationship Specialty Start Date End Date Amber Quiroz MD [address] [place], [place] [phone] PCP - General Family Medicine 07/03/18 documented as of this encounter
--- OUTSIDE RECORDS SUMMARY | 2024-08-14 11:48 | XMS_ITS | Encounter Summary ---
Author Organization [employer] Address [address] [place] [address] Care Team Providers Care Living Supervisor Name Role Phone Amber Quiroz MD Primary Care Provider [phone] Encounter Details Date Type Department Care Team (Late st Contact Info) Description 07/15/2024 Orders Only GENERIC EXTERNAL DATA DEPARTMENT Provider, Generic External Data Social History Tobacco Use Types Packs/Day Years Used Date Smoking Tobacco: Former Cigarettes Housing Stability Answer Date Recorded What [...] before you got money to buy more: Sometimes True 2023 Within the past 12 months,th e food you bought just didn't last and you didn't have enough money to get more: Sometimes True 02/27/2024 Transportation Answer Date Recorded In the past [...] off services in your home? No 05/08/2023 Internet Access Answer Date Recorded Internet Access Q1 No 03/04/2024 Internet Access Q2 I do not want or need it 08/2023 Comments Unknown Sex and Gender Information Value Date Recorded Sex Assigned at Female 05/02/2022 10:14 AM EDT Legal Sex Female 10:14 AM EDT Gender Identity Female 05/02/2022 10:14 AM EDT Sexual Orientation Straight 05/02/2022 10 :14 AM EDT documented as of this encounter Plan of Treatment Not on file documented as of this encounter Procedures Procedure Name Priority Date/Time Associated Diagnosis Comments CT ABDOMEN PELVIS WO CONTRAST Routine 08/14/2024 10:31 AM EST BLOOD CULTURE (FIRST) Routine 07/15/2024 6:09 PM EST BLOOD CULTURE (SECOND) Routine 07/15/2024 6:09 PM EST CULTURE, URINE, ROUTINE Routine 07/15/2024 5:00 PM EST URINALYSIS, COMPLETE, WITH REFLEX TO CULTURE Routine 07/15/2024 4:[address] ABDOMEN PELVIS WO CONTRAST Routine 07/15/2024 4:03 PM EST documented in this encounter Results * CT Abdomen Pelvis w/o Contrast (08/14/2024 10:31 AM EST) Anatomical Region Laterality Modality Body, Pelvis, Abdomen Computed T omography 08/14/2024 10:3 1 AM EST Narrative 08/14/2024 11:34 AM EST ? [facility] ?[address] ?[place] [address] ? CT Scan Report ? Signed ? Patient: Marquez,Zelidez ?MR#: [id number] ?? 760 ? : 1965 ?Acct:[id number] ? Age/Sex: 58 / F ?ADM Date: 02/12/25 ? Loc: HO.ED ? Attending Dr: ? Ordering Physician: Radha Crowder NP ?? Date of Service: 08/14/24 ?? Procedure(s): CT abdomen pelvis wo IV con ?? Accession Number(s): [id number] ? cc: Amber Quiroz MD; Radha Crowder NP ? Report Number: ?? [id number]: Total DLP = ??365.00 mGy-cm ?? EXAMINATION: ??CT ABDOMEN PELVIS WITHOUT IV CONTRAST ? HISTORY: R flank pain, hx stones ? COMPARISON: Comparison is made with the prior examination dated ?? 07/15/2024. ? TECHNIQUE: CT scan of the abdomen and pelvis was performed without ?? contrast using standard departmental protocol. ?? Coronal and sagittal ?? reformatted images were generated and reviewed. ??Oral contrast material ?? was not administered per department protocol. ? This CT exam was performed with one or more of the following dose ?? reduction techniques: automated exposure control, adjustment of the mA ?? and/or kV according to patient size, use of iterative reconstruction ?? technique. ? DLP: 365 mGy-cm ? FINDINGS: ? LOWER CHEST: The visualized lung bases are clear. There is no pleural ?? effusion. ? CARDIOVASCULATURE: The heart is normal in size. ??There is no ?? pericardial effusion. ? LIVER: ??The liver is normal in size and contour. ??The liver has an ?? unremarkable unenhanced appearance. ? GALLBLADDER / BILE DUCTS: ??The gallbladder is unremarkable. There is no ?? intra or extrahepatic biliary ductal dilatation. ? SPLEEN: The spleen is normal in size and has an unremarkable unenhanced ?? appearance. ? PANCREAS: The pancreas has an unremarkable unenhanced appearance. ? ADRENAL GLANDS: Unremarkable. ? KIDNEYS/RETROPERITONEUM: Again seen is a 1.3 cm fat density mass at the ?? upper pole of the right kidney, consistent with an angiomyolipoma. ?? Multiple tiny bilateral renal calculi are noted measuring up to 2 mm in ?? size. There is no hydronephrosis. No ureteral calculi are identified. ? LYMPH NODES: ??No retroperitoneal lymphadenopathy is identified in the ?? abdomen or pelvis. ? VASCULATURE: ??The abdominal aorta is normal in caliber. ? MESENTERY/PERITONEUM: No free fluid. No masses. ??There is no free ?? intraperitoneal gas. ? STOMACH: ??The stomach is collapsed, limiting evaluation. ? SMALL BOWEL: ?? The small bowel is normal in caliber. ? COLON: ??The colon is unremarkable. ? APPENDIX: ??Normal. ? URINARY BLADDER/PELVIC ORGANS: The urinary bladder is collapsed, ?? limiting evaluation. ??The uterus has an unremarkable unenhanced ?? appearance. ? BONES / SOFT TISSUES: ??There is a tiny fat-containing umbilical hernia. ?? The bones are intact. ? CT/CT abdomen pelvis wo IV con ?? IMPRESSION: ?? Bilateral nephrolithiasis as described, without evidence of ureteral ?? obstruction. ? Electronically signed by: ??Misha Curtis MD ??08/14/2024 11:31 AM EST ?? RP ? Dictated By: ?Misha Curtis MD ? Signed By: ?<Electronically signed by Misha Curtis MD in OV> ?08/14/24 1131 ? DD/ 1031 ? TD/TT: 08/14/24 1104 ? Cigar Brander: ? Procedure Note True, Image - 08/14/[address] [place] [address] [address] Scan Report Signed Patient: Heidi Marquez#: [id number] 760 : 1965Acct:[id number] Age/Sex: 58 / FADM Date: 08/14/24 Loc: HO.ED Attending Dr: Ordering Physician: Radha Crowder NP Date of Service: 08/14/24 Procedure(s): CT abdomen pelvis wo IV con Accession Number(s): [id number] cc: Amber Quiroz MD; Radha Crowder NP Report Number: [id number]: Total DLP = 365.00 mGy-cm EXAMINATION: CT ABDOMEN PELVIS WITHOUT IV CONTRAST HISTORY: R flank pain, hx stones COMPARISON: Comparison is made with the prior examination dated 07/15/2024. TECHNIQUE: CT scan of the abdomen and pelvis was performed without contrast using standard departmental protocol. Coronal and sagittal reformatted images were generated and reviewed. Oral contrast material was not administered per department protocol. This CT exam was performed with one or more of the following dose reduction techniques: automated exposure control, adjustment of the mA and/or kV according to patient size, use of iterative reconstruction technique. DLP: 365 mGy-cm FINDINGS: LOWER CHEST: The visualized lung bases are clear. There is no pleural effusion. CARDIOVASCULATURE: The heart is normal in size. There is no pericardial effusion. LIVER: The liver is normal in size and contour. The liver has an unremarkable unenhanced appearance. GALLBLADDER / BILE DUCTS: The gallbladder is unremarkable. There is no intra or extrahepatic biliary ductal dilatation. SPLEEN: The spleen is normal in size and has an unremarkable unenhanced appearance. PANCREAS: The pancreas has an unremarkable unenhanced appearance. ADRENAL GLANDS: Unremarkable. KIDNEYS/RETROPERITONEUM: Again seen is a 1.3 cm fat density mass at the upper pole of the right kidney, consistent with an angiomyolipoma. Multiple tiny bilateral renal calculi are noted measuring up to 2 mm in size. There is no hydronephrosis. No ureteral calculi are identified. LYMPH NODES: No retroperitoneal lymphadenopathy is identified in the abdomen or pelvis. VASCULATURE: The abdominal aorta is normal in caliber. MESENTERY/PERITONEUM: No free fluid. No masses. There is no free intraperitoneal gas. STOMACH: The stomach is collapsed, limiting evaluation. SMALL BOWEL: The small bowel is normal in caliber. COLON: The colon is unremarkable. APPENDIX: Normal. URINARY BLADDER/PELVIC ORGANS: The urinary bladder is collapsed, limiting evaluation. The uterus has an unremarkable unenhanced appearance. BONES / SOFT TISSUES: There is a tiny fat-containing umbilical hernia. The bones are intact. CT/CT abdomen pelvis wo IV con IMPRESSION: Bilateral nephrolithiasis as described, without evidence of ureteral obstruction. Electronically signed by: Misha Curtis MD 08/14/2024 11:31 AM EST Dictated By: Misha Curtis MD Signed By: <Electronically signed by Misha Curtis MD in OV> 08/14/24 1131 DD/ 1031 TD/TT: 08/14/24 1104 Cigar Brander: [facility] External Provider IMG CT PROCEDURES Final Result * Blood Culture (First) (07/15/2024 6:09 PM EST) Blood Venous blood specimen / Unknown 07/15/2024 6:09 PM EST 07/15/2024 6:14 PM EST Comment:Blood [facility] - 07/20/2024 8:14 PM EST Blood Culture (First) No growth after 5 days. Specimen Source: Blood Generic External Data Provider LAB MICROBIOLOGY - GENERAL ORDERABLES Final Result Performing Organization Address City/[facility]/ZIP Co de Phone Number [facility] [address] [place] [phone] * Blood Culture (Second) (07/15/2024 6:09 PM EST) Blood Venous blood specimen / Unknown 07/15/2024 6:09 PM EST 07/15/2024 6:14 PM EST Comment:Blood [facility] - 07/20/2024 8:14 PM EST Blood Culture (Second) No growth after 5 days. Specimen Source: Blood Generic External Data Provider LAB MICROBIOLOGY - GENERAL ORDERABLES Final Result Performing Organization Address City/[facility]/ZIP Co de Phone Number [facility] [address] [place] [phone] * Culture, Urine, Routine (07/15/2024 5:00 PM EST) Urine Urine specimen obtained by clean catch procedure / Unknown 07/15/2024 5:00 PM EST 07/15/2024 5:00 PM EST Comment:[facility] - 07/17/2024 10:40 AM EST Urine Culture Report Result Urine Culture 10,000 to 50,000 cfu/ml Urine Culture Mixed bacterial geovanny characteristic of Urine Culture urogenital contamination. Specimen Source: Urine clean catch Generic External Data Provider LAB MICROBIOLOGY - GENERAL ORDERABLES Final Result Performing Organization Address City/[facility]/ZIP Co de Phone Number [facility] [address] [place] [address] [phone] * (ABNORMAL) Urinalysis, Complete, with Reflex to Culture (07/15/2024 4:36 PM EST) Color Urine Other(A) [facility] Appearance Urine Hazy [facility] PH 5.5 5.0 - 9.0 [facility] Glucose Urine UA Negative Negative mg/dL [facility] Urine Blood Large (3+)(A) Negative [facility] Specific Irons - Urine 1.025 1.005 - 1.025 [facility] Urine Protein 100 (2+)(A) Neg-Trace mg/dL [facility] Urine Ketones Negative Negative mg/dL [facility] Nitrite Urine Positive(A) Negative [facility] Leukocyte Esterase Urine Negative Negative [facility] RBC Urine >20(A) 0 - 2 /HPF [facility] Urine WBC 0-5 0 - 5 /HPF [facility] Urine Squamous Epithelial Cell 3-5 0 - 2 /HPF [facility] Urine Bacteria None Seen None Seen [facility] Hyaline Casts, Urine 0-2 0 - 2 /LPF [facility] 07/15/2024 4:36 PM EST 07/15/2024 4:49 PM EST Narrative [facility] - 07/15/2024 4:59 PM EST [id number], Clean Catch us Generic External Data Provider LAB URINE ORDERAB LES Final Result Performing Organization Address [facility]/ZIP Co de Phone Number [facility] [address] [place] [address] [phone] * CT Abdomen Pelvis w/o Contrast (07/15/2024 4:03 PM EST) Anatomical Region Laterality Modality Body, Pelvis, Abdomen Computed T omography 07/15/2024 4:03 PM EST Narrative 07/15/2024 4:58 PM EST ? [facility] ?[address] ?[place] [address] ? CT Scan Report ? Signed ? Patient: Marquez,Zelidez ?MR#: [id number] ?? 760 ? : 1965 ?Acct:[id number] ? Age/Sex: 58 / F ?ADM Date: 07/15/24 ? Loc: HO.ED ? Attending Dr: ? Ordering Physician: Daksha Mckinnon ?? Date of Service: 07/15/24 ?? Procedure(s): CT abdomen pelvis wo IV con ?? Accession Number(s): [id number] ? cc: Daksha Mckinnon; Amber Quiroz MD ? Report Number: ?? [id number]: Total DLP = ??431.00 mGy-cm ?? EXAMINATION: ?? CT ABDOMEN AND PELVIS WITHOUT CONTRAST ? CLINICAL INFORMATION: ?? Right flank pain, hematuria, unable to pee . History of stones. ? COMPARISON: ?? Numerous priors CTs of the abdomen and pelvis, numbering 43 at this ?? institution since 01/22/2016, the most recent 04/01/2024. ? TECHNIQUE: ?? Multidetector volumetric imaging was performed from the superior aspect ?? of the liver through the pubic symphysis. Sagittal and coronal ?? reformatted images were obtained on the technologist's workstation. ? This CT examination was performed using dose optimization techniques as ?? appropriate, variously including the following: ?? *Automated exposure control ?? *Adjustment of mA and/or kV according to patient size (this includes ?? techniques or standardized protocols for targeted exams where dose is ?? matched to indication/reason for exam; i.e. extremities or head) ?? *Use of iterative reconstruction technique ? DAP = 431 mGy-cm2 ? FINDINGS: ?? LUNG BASES: The visualized lung bases are unremarkable. There are no ?? effusions. Heart size is normal. ? LIVER, GALLBLADDER, AND BILIARY TREE: The liver is normal in size, ?? shape, and attenuation. No focal hepatic lesion or biliary ductal ?? dilatation is present. The gallbladder is unremarkable with no evidence ?? of radiopaque gallstones, gallbladder wall thickening, or obvious ?? pericholecystic inflammatory changes. ? PANCREAS: Unremarkable. ? SPLEEN: Unremarkable. ? ADRENAL GLANDS: Unremarkable. ? KIDNEYS AND URETERS: ?? -Right kidney demonstrates approximately four 2-3 mm calculi, ?? nonobstructing. No hydronephrosis or hydroureter. There is a stable 1.6 ?? cm angiomyolipoma in the superior pole. ?? -Left kidney demonstrates approximately five 2-3 mm calculi, ?? nonobstructing. No hydronephrosis or hydroureter. There is no mass ?? lesion identified. ?? -There is a 3 mm calculus present in the most distal right ureter, ?? which appears nonobstructing (series 3, image 64). This was not present ?? on the prior exam. ? BLADDER: Normal in appearance. No wall thickening, stone, or mass ?? identified. ? GASTROINTESTINAL TRACT: ?? -The stomach is distended with a recent meal. ?? -Normal duodenum and small bowel. ?? -The large bowel is unremarkable. The appendix is unremarkable. ? -No rectal abnormality. ? ABDOMINAL WALL: No significant hernia is appreciated. ? LYMPH NODES: ?? -No abnormal lymphadenopathy present. ? VASCULAR: ?? -Mild vascular calcifications. No aortic aneurysm. ? PELVIC VISCERA: ?? -Uterus and adnexal structures appear normal. ? OSSEOUS STRUCTURES: ?? -No acute findings. There is a hemangioma in the L3 vertebral body. ?? Mild degenerative facet changes present L4-S1. ?? -Mild degenerative hip joint changes bilaterally. ? CT/CT abdomen pelvis wo IV con ?? IMPRESSION: ?? 1. There is a nonobstructing 3 mm calculus in the most distal right ?? ureter, just proximal to the right UVJ . There is no hydronephrosis. ?? 2. Bilateral nonobstructing nephrolithiasis. ?? 3. Normal urinary bladder. ?? 4. Additional ancillary findings as discussed in the body of the report. ? Electronically signed by: ??Eliezer Whyte MD ??07/15/2024 04:54 PM EST RP ? Dictated By: ?Eliezer Whyte MD ? Signed By: ?<Electronically signed by Eliezer Whyte MD in OV> ?07/15/24 1654 ? DD/ 1603 ? TD/TT: 07/15/24 1617 ? Cigar Brander: ? Procedure Note Donotuseinterpreter, Image - 07/15/[address] [address] [address] Scan Report Signed Patient: John MarquezMR#: [id number] 760 : 1965Acct:[id number] Age/Sex: 58 / FADM Date: 07/15/24 Loc: HO.ED Attending Dr: Ordering Physician: Daksha Mckinnon Date of Service: 07/15/24 Procedure(s): CT abdomen pelvis wo IV con Accession Number(s): [id number] cc: Daksha Mckinnon; Amber Quiroz MD Report Number: [id number]: Total DLP = 431.00 mGy-cm EXAMINATION: CT ABDOMEN AND PELVIS WITHOUT CONTRAST CLINICAL INFORMATION: Right flank pain, hematuria, unable to pee . History of stones. COMPARISON: Numerous priors CTs of the abdomen and pelvis, numbering 43 at this institution since 01/22/2016, the most recent 04/01/2024. TECHNIQUE: Multidetector volumetric imaging was performed from the superior aspect of the liver through the pubic symphysis. Sagittal and coronal reformatted images were obtained on the technologist's workstation. This CT examination was performed using dose optimization techniques as appropriate, variously including the following: *Automated exposure control *Adjustment of mA and/or kV according to patient size (this includes techniques or standardized protocols for targeted exams where dose is matched to indication/reason for exam; i.e. extremities or head) *Use of iterative reconstruction technique DAP = 431 mGy-cm2 FINDINGS: LUNG BASES: The visualized lung bases are unremarkable. There are no effusions. Heart size is normal. LIVER, GALLBLADDER, AND BILIARY TREE: The liver is normal in size, shape, and attenuation. No focal hepatic lesion or biliary ductal dilatation is present. The gallbladder is unremarkable with no evidence of radiopaque gallstones, gallbladder wall thickening, or obvious pericholecystic inflammatory changes. PANCREAS: Unremarkable. SPLEEN: Unremarkable. ADRENAL GLANDS: Unremarkable. KIDNEYS AND URETERS: -Right kidney demonstrates approximately four 2-3 mm calculi, nonobstructing. No hydronephrosis or hydroureter. 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 -Left kidney demonstrates approximately five 2-3 mm calculi, nonobstructing. No hydronephrosis or hydroureter. There is no mass lesion identified. -There is a 3 mm calculus present in the most distal right ureter, which appears nonobstructing (series 3, image 64). This was not present on the prior exam. BLADDER: Normal in appearance. No wall thickening, stone, or mass identified. GASTROINTESTINAL TRACT: -The stomach is distended with a recent meal. -Normal duodenum and small bowel. -The large bowel is unremarkable. The appendix is unremarkable. -No rectal abnormality. ABDOMINAL WALL: No significant hernia is appreciated. LYMPH NODES: -No abnormal lymphadenopathy present. VASCULAR: -Mild vascular calcifications. No aortic aneurysm. PELVIC VISCERA: -Uterus and adnexal structures appear normal. OSSEOUS STRUCTURES: -No acute findings. There is a hemangioma in the L3 vertebral body. Mild degenerative facet changes present L4-S1. -Mild degenerative hip joint changes bilaterally. CT/CT abdomen pelvis wo IV con IMPRESSION: 1. There is a nonobstructing 3 mm calculus in the most distal right ureter, just proximal to the right UVJ . There is no hydronephrosis. 2. Bilateral nonobstructing nephrolithiasis. 3. Normal urinary bladder. 4. Additional ancillary findings as discussed in the body of the report. Electronically signed by: Eliezer Whyte MD 07/15/2024 04:54 PM [facility] Dictated By: Eliezer Whyte MD Signed By: <Electronically signed by Eliezer Whyte MD in OV> 07/15/24 1654 DD/ 1603 TD/TT: 07/15/24 1617 Cigar Brander: [facility] External Provider IMG CT PROCEDURES Final Result documented in this encounter Visit Diagnoses Not on filedocumented in this encounter Care Teams Living Supervisor Relationship Specialty Start Date End Date Amber Quiroz MD [address] [place] [address] PCP - General Family Medicine 07/03/18 documented as of this encounter
--- OUTSIDE RECORDS SUMMARY | 2024-08-14 11:48 | XMS_ITS | Encounter Summary ---
Author Organization [employer] Address [address] [facility] [address] [place] [address] Care Team Providers Care Furnishings Conservator Name Role Phone Amber Quiroz MD Primary Care Provider [phone] Reason for Visit * Reason Comments Med Refill Encounter Details Date Type Department Care Team (Late st Contact Info) Description 04/26/2023 Refill [facility] MEDICINE [address] [place], [place] [phone] Amber Quiroz MD [address] [place] [address] Nausea Social History Tobacco Use Types Packs/Day Years Used Date Smoking Tobacco: Every Day Cigarettes Comments Unknown Sex and Gender Information Value Date Recorded Sex Assigned at Female 05/02/2022 10:14 AM EDT Legal Sex Female 10:14 AM EDT Gender Identity Female 05/02/2022 10:14 AM EDT Sexual Orientation Straight 05/02/2022 10 :14 AM EDT documented as of this encounter Plan of Treatment Not on file documented as of this encounter Visit Diagnoses Diagnosis Nausea Nausea alone documented in this encounter Care Teams Furnishings Conservator Relationship Specialty Start Date End Date Amber Quiroz MD [address] [place], [place] [phone] PCP - General Family Medicine 07/03/18 documented as of this encounter
--- OUTSIDE RECORDS SUMMARY | 2024-08-14 11:48 | XMS_ITS | Encounter Summary ---
Author Organization [employer] Address [address] [facility] [address] [place] [address] Care Team Providers Care [facility] Shift Lead Name Role Phone Amber Quiroz MD Primary Care Provider [phone] Reason for Visit * Reason Comments Med Refill Encounter Details Date Type Department Care Team (Late st Contact Info) Description 04/26/2023 Refill [facility] MEDICINE [address] [place] [address] Alan Partida MD [address] [place] [address] Moderate persistent asthma without complication; Nausea Social History Tobacco Use Types Packs/Day [...] as of this encounter Visit Diagnoses Diagnosis Moderate persistent asthma without complication Nausea Nausea alone documented in this encounter Care Teams [facility] Shift Lead Relationship Specialty Start Date End Date Amber Quiroz MD [address] [place], [place] [phone] PCP - General Family Medicine 07/03/18 documented as of this encounter
--- OUTSIDE RECORDS SUMMARY | 2024-08-14 11:48 | XMS_ITS | Encounter Summary ---
Author Organization [employer] Address [address] [facility] [address] [place] [address] Care Team Providers Care Desk Manager Name Role Phone Amber Quiroz MD Primary Care Provider [phone] Reason for Visit * Reason Comments Med Refill Encounter Details Date Type Department Care Team ([facility] st Contact Info) Description 11/29/2023 Refill [facility] MEDICINE [address] [place], [place] [phone] Charleen Latif MD [address] [place], [place] [phone] Nephrolithiasis Social History Tobacco Use Types Packs/Day Years [...] t he electric, gas, oil or water [employer] threatened to shut off services in your [...] as of this encounter Visit Diagnoses Diagnosis Nephrolithiasis Calculus of kidney documented in this encounter Care Teams Desk Manager Relationship Specialty Start Date End Date Amber Quiroz MD [address] [place] [address] PCP - General Family Medicine 07/03/18 documented as of this encounter
--- OUTSIDE RECORDS SUMMARY | 2024-08-14 11:48 | XMS_ITS | Encounter Summary ---
Author Organization [email or web address] Address [address] 7t [place] [address] Care Team Providers Care Retail Business Manager Name Role Phone Amber Quiroz MD Primary Care Provider [phone] Encounter Details Date Type Department Care Team (Late st Contact Info) Description 07/28/2022 Orders Only [facility] MEDICINE [address] [place], [place] [phone] Anabell Martinez LPN Social History Tobacco Use Types Packs/Day Years [...] Procedure Name Priority Date/Time Associated Diagnosis Comments URINALYSIS, COMPLETE, WITH REFLEX TO CULTURE Routine 08/02/2022 12:29 AM EST SARS COV2/INFLUENZA A/B AND RSV RNA QL NAAT Routine 08/02/2022 12:17 AM EST CBC WITH AUTO DIFFERENTIAL Routine 08/02/2022 12:17 AM EST BASIC METABOLIC PANEL Routine 08/02/2022 12:17 AM EST CULTURE, URINE, ROUTINE Routine 08/02/2022 12:00 AM EST documented in this encounter Results * (ABNORMAL) Urinalysis, Complete, with Reflex to Culture (08/02/2022 12:29 AM EST) Color Urine Yellow [facility] Appearance Urine Turbid [facility] PH 6.5 5.0 - 9.0 [facility] Glucose Urine UA Negative Negative mg/dL [facility] Urine Blood Trace(A) Negative [facility] Specific [place] - Urine 1.020 1.005 - 1.025 [facility] Urine Protein 30 (1+)(A) Neg-Trace mg/dL [facility] Urine Ketones Negative Negative mg/dL [facility] Nitrite Urine Negative Negative [facility] Leukocyte Esterase Urine Large (3+)(A) Negative [facility] RBC Urine 0-2 0 - 2 /HPF [facility] Urine WBC >50(A) 0 - 5 /HPF [facility] Urine Squamous Epithelial Cell 6-10 0 - 2 /HPF [facility] Urine Bacteria 1+ None Seen [facility] Hyaline Casts, Urine 3-5 0 - 2 /LPF [facility] 08/02/2022 12:2 9 AM EST 08/02/2022 12:31 AM EST Narrative [facility] - 08/02/2022 12:50 AM EST Urine, Clean Catch [facility] External Provider LAB URI NE ORDERABLES Final Result [facility] [address] [place] [address] [phone] * SARS-CoV-2 RNA, Influenza A/B, and RSV RNA, Ql NAAT (08/02/2022 12:17 AM EST) Influenza A PCR NEGATIVE Negative [facility] Influenza B PCR NEGATIVE Negative [facility] Resp Syncy Virus RNA Qual PCR NEGATIVE Negative [facility] SARS COV2 PCR NEGATIVE Negative [facility] SARS/Flu/RSV Note See Note [facility] Comment:All test results mus t be correlated with clinical findings.Negative results do not preclude SARS-CoV2, influenza Avirus, influenza B virus and/or RSV infectionand should not be used as the sole basis for treatment orother patient management decisions. Negative results must becombined with clinical observations, patient history, andepidemiological information.This test has not been evaluated for monitoring treatment ofinfection.This test has been authorized by the FDA under an EmergencyUse Authorization (EUA) for use by authorized laboratories.Testing performed on the [employer] GeneXpert utilizingreal-time RT-PCR.All SARS CoV2 and positive influenza A/B results arereported to [facility]. 08/02/2022 12:1 7 AM EST 08/02/2022 12:19 AM EST [facility] Exter nal Provider LAB MICROBIOLOGY - GENERAL ORDERABLES Final Result [facility] [address] [place] [phone] * (ABNORMAL) Basic Metabolic Panel (08/02/2022 12:17 AM EST) Sodium 140 135 - 145 mmol/L [facility] Potassium 3.9 3.3 - 5.1 mmol/L [facility] Chloride 105 96 - 108 mmol/L [facility] Carbon Dioxide 24 22 - 29 mmol/L [facility] Anion Gap 15 12 - 20 [facility] Urea Nitrogen (BUN) 14 9 - 16 mg/dL [facility] Creatinine, Serum 0.75 0.5 - 1.4 mg/dL [facility] Creatinine Clr Calc Pharmacy 71.4 [facility] Comment:Provided height and weight: 162.56 cm,63.503 kg.eGFR (calculated from the MDRD study equation) and eCrCl(calculated from the Cockcroft-Gault equation) are based ondifferent parameters and may not yield comparable results.If eCrCl result is absurd, please check patient'sheight/weight. Estimated Glomerular Filt Rate >60 [facility] Comment:NOTE: For -Am erican individuals, multiply the result by 1.210.Chronic Kidney Disease: Estimated GFR < 60 mL/min/1.61b9Lyeium Kidney Disease: Estimated GFR < 15 mL/min/1.73m2 Glucose 119(H) 60 - 115 mg/dL [facility] Calcium 9.0 8.4 - 10.2 mg/dL [facility] 08/02/2022 12:1 7 AM EST 08/02/2022 12:19 AM EST [facility] External Provider LAB BLO OD ORDERABLES Final Result [facility] [address] [place] [address] [phone] * (ABNORMAL) CBC auto differential (08/02/2022 12:17 AM EST) White Blood Count 6.4 4.8 - 10.8 X10*3/uL [facility] Red Blood Count 3.96(L) 4.20 - 5.50 X10*6/uL [facility] Hemoglobin 10.8(L) 12.0 - 16.0 g/dl [facility] Hematocrit 33.0(L) 37.0 - 47.0 % [facility] Mean Corpuscular Volume 83.3 80.0 - 98.0 fL [facility] Mean Corpuscular Hemoglobin 27.3 27.0 - 33.0 pg [facility] Mean Corpuscular HGB Conc 32.7 31.0 - 35.0 g/dl [facility] Red Cell Distribution Width 14.2 11.0 - 16.0 % [facility] Platelet Count 202 160 - 400 X10*3/uL [facility] Mean Platelet Volume 9.2(L) 9.4 - 12.3 fL [facility] Neutrophils Percent Auto 68.5 45 - 73 % [facility] Imm Gran Pct Auto 0.2 0.0 - 0.4 % [facility] Lymphocytes Percent Auto 21.9 20 - 40 % [facility] Monocytes Percent Auto 8.6 2 - 11 % [facility] Eosinophils Percent Auto 0.5 0 - 4 % [facility] Basophils Percent Auto 0.3 0 - 2 % [facility] NRBC Pct Auto 0.0 0.0 - 0.2 /100WBC [facility] Neutrophils Absolute Auto 4.4 2.0 - 8.3 x10*3/uL [facility] Imm Gran Abs Auto 0.01 0.00 - 0.03 X10*3/uL [facility] Lymphocytes Absolute Auto 1.4 1.2 - 4.9 X10*3/uL [facility] Monocytes Absolute Auto 0.6 0.1 - 1.2 X10*3/uL [facility] Eosinophils Absolute Auto 0.0 0.0 - 0.4 X10*3/uL [facility] Basophils Absolute Auto 0.0 0.0 - 0.2 X10*3/uL [facility] NRBC Abs Auto 0.000 0.0 - 0.012 X10*3/uL [facility] 08/02/2022 12:1 7 AM EST 08/02/2022 12:19 AM EST [facility] External Provider LAB BLO OD ORDERABLES Final Result Performing Organization Address City[facility]/ZIP Co de Phone Number [facility] [address] [place] [phone] * Culture, Urine, Routine (08/02/2022 12:00 AM EST) 08/02/2022 08/02/2022 7:3 1 AM EST Comment:UACC Narrative [facility] - 08/03/2022 9:19 AM EST Urine Culture No growth. Specimen Source: Urine clean catch [facility] Exter nal Provider LAB MICROBIOLOGY - GENERAL ORDERABLES Final Result Performing Organization Address [facility] Co de Phone Number [facility] [address] [place] [phone] documented in this encounter Visit Diagnoses Not on filedocumented in this encounter Care Teams Retail Business Manager Relationship Specialty Start Date End Date Amber Quiroz MD [address] [place] [phone] PCP - General Family Medicine 07/03/18 documented as of this encounter
--- OUTSIDE RECORDS SUMMARY | 2024-08-14 11:48 | XMS_ITS | Encounter Summary ---
Author Organization [employer] Address [address] [place] [address] Care Team Providers Care Chairman President And Chief Executive Officer Name Role Phone Amber Quiroz MD Primary Care Provider [phone] Encounter Details Date Type Department Care Team (Late st Contact Info) Description 12/12/2023 Orders Only [facility] MEDICINE [address] [place], [place] [phone] Amber Quiroz MD [address] [place], [place] [phone] Nephrolithiasis (Primary Dx) Social History Tobacco Use Types Packs/Day Years Used Date Smoking Tobacco: Former Cigarettes Housing Stability Answer Date Recorded What is your housing situation today? I have oly estella 05/08/[address] you li [...] as of this encounter Visit Diagnoses Diagnosis Nephrolithiasis- Primary Calculus of kidney documented in this encounter Care Teams Chairman President And Chief Executive Officer Relationship Specialty Start Date End Date Amber Quiroz MD [address] [place] [address] PCP - General Family Medicine 07/03/18 documented as of this encounter
--- OUTSIDE RECORDS SUMMARY | 2024-08-14 11:48 | XMS_ITS | Encounter Summary ---
Author Organization [employer] Address [address] [facility] 7t [place] [address] Care Team Providers Care Laundry Marker Supervisor Name Role Phone Amber Quiroz MD Primary Care Provider [phone] Reason for Visit * Reason Comments Med Refill Encounter Details Date Type Department Care Team ([facility] st Contact Info) Description 06/01/2023 Refill [facility] MED[facility]INE [address] [place], [place] [phone] Amber Quiroz MD [address] [place], [place] [phone] Pain Social History Tobacco Use Types Packs/Day Years [...] the past 12 months, has t he [employer], oil or water company threatened to shut [...] as of this encounter Visit Diagnoses Diagnosis Pain Generalized pain documented in this encounter Care Teams Laundry Marker Supervisor Relationship Specialty Start Date End Date Amber Quiroz MD [address] [place] [address] PCP - General Family Medicine 07/03/18 documented as of this encounter
--- OUTSIDE RECORDS SUMMARY | 2024-08-14 11:48 | XMS_ITS | Encounter Summary ---
Author Organization [employer] Address [address] [facility] [address]t [place] [address] Care Team Providers Care Resolution Analyst Name Role Phone Amber Quiroz MD Primary Care Provider [phone] Reason for Visit * Reason Onset Date Comments Nurse Triage 01/11/2024 Encounter Details Date Type Department Care Team ([facility] st Contact Info) Description 01/11/2024 Telephone [facility] MED[facility]INE [address] [place], [place] [phone] Amber Quiroz MD [address] [place], [place] [phone] Nurse Triage Social History Tobacco Use Types Packs/Day Years [...] t he electric, gas, oil or water [employer] threatened to shut off services in your home? No 05/08/2023 Comments Unknown Sex and Gender Information Value Date Recorded Sex Assigned at Female 05/02/2022 10:14 AM EDT Legal Sex Female 10:14 AM EDT Gender Identity Female 05/02/2022 10:14 AM EDT Sexual Orientation Straight 05/02/2022 10 :14 AM EDT documented as of this encounter Miscellaneous Notes * Telephone Encounter - Lacy Sahni LPN - 01/11/2024 3:39 PM EDT Triage call returend again once HDF appt slot provided to use. Patient in tears due to pain. Tylenol not at all helpful. Given HDF appt tomorrow at 1030am with [employer] G[employer] ADJUSTER. RX updated with pending HDF. Team tasked that if medication available from PCP [facility] * Telephone Encounter - Lacy Sahni LPN - 01/11/2024 3:31 PM EDT Triage in process. Patient requesting pain medication for kidney stone pain in [facility] 01/07/24-01/08/24. Patient not seeing any stones passing. Was given pain medication and IVF at time of hospitalization. Requires HDF appt. and is looking to see if some medication may be prescribed pending a visit. PCP Team tasked to follow with patient if medication available. Will continue to look for HDF appt andcall patient back. Protocol Used: Medication Question Call (Adult) Protocol-Based Disposition: Callback or Video Visit by PCP Today Override (Final) Disposition: Discuss with PCP and Callback by Nurse within 1 Hour Override Reason: Already seen and worse Override Notes: Seen and treated at [facility] known kidney stones wants something for pain . Previously had Oxycodone. Video visit offer not recorded Positive Triage Question: * Caller wants to use a complementary or alternative medicine * All higher-acuity triage questions were negative * Telephone Encounter - Ezekiel Lorenzo - 01/11/2024 2:53 PM EDT Symptom: Urination Pain Outcome: Schedule an urgent appointment (within 1 hour) or talk to a nurse or provider soon Reason: Severe pain now The caller accepted this outcome Patient is having pain due to Kidney Stones documented in this encounter Plan of Treatment Not on file documented as of this encounter Visit Diagnoses Not on filedocumented in this encounter Care Teams Resolution Analyst Relationship Specialty Start Date End Date Amber Quiroz MD [address] [place] [phone] PCP - General Family Medicine 07/03/18 documented as of this encounter
--- OUTSIDE RECORDS SUMMARY | 2024-08-14 11:48 | XMS_ITS | Encounter Summary ---
Author Organization [employer] Address [address] [place] [address] Care Team Providers Care Checker Loader Name Role Phone Amber Quiroz MD Primary Care Provider [phone] Encounter Details Date Type Department Care Team ([facility] st Contact Info) Description 11/24/2023 Telephone [facility] MEDICINE [address] [place], [place] [phone] Amber Quiroz MD [address] [place], [place] [phone] Social History Tobacco Use Types Packs/Day Years [...] on filedocumented in this encounter Care Teams Checker Loader Relationship Specialty Start Date End Date Amber Quiroz MD [address] [place] [address] PCP - General Family Medicine 07/03/18 documented as of this encounter
--- OUTSIDE RECORDS SUMMARY | 2024-08-14 11:48 | XMS_ITS | Encounter Summary ---
Author Organization [employer] Address [address] [facility] 7t [place] [address] Care Team Providers Care Assistant Toddler Teacher Name Role Phone Amber Quiroz MD Primary Care Provider [phone] Reason for Visit * Reason Onset Date Comments Med Refill 01/10/2024 Encounter Details Date Type Department Care Team ([facility] st Contact Info) Description 01/10/2024 Telephone [facility] MEDICINE [address] [place], [place] [phone] Amber Quiroz MD [address] [place], [place] [phone] Med Refill Social History Tobacco Use Types Packs/Day Years [...] encounter Miscellaneous Notes * Telephone Encounter - Rachelle Lucero RN - 01/10/2024 3:54 PM EDT Pt asking for both refills of Oxycodone 5mg (last refill on 11/29 qty 12)and Tramadol 50mg (last refill 12/11 qty15). Please advise * Telephone Encounter - Ezekiel Lorenzo - 01/10/2024 3:30 PM EDT TC from pt requesting medication refill. Medications needing refill : traMADol (Ultram) 50 MG tablet and oxyCODONE (Roxicodone) 5 MG immediate release tablet To be sent to: [facility] - [place], [place] - [address] [place] [address] documented in this encounter Plan of Treatment Not on file documented as of this encounter Visit Diagnoses Not on filedocumented in this encounter Care Teams Assistant Toddler Teacher Relationship Specialty Start Date End Date Amber Quiroz MD [address] [facility] [place] [address] PCP - General Family Medicine 07/03/18 documented as of this encounter
--- OUTSIDE RECORDS SUMMARY | 2024-08-14 11:49 | XMS_ITS | Encounter Summary ---
Author Organization [employer] Address [address] 7t [place] [address] Care Team Providers Care Reviewer Sales Name Role Phone Amber Quiroz MD Primary Care Provider [phone] Encounter Details Date Type Department Care Team (Late st Contact Info) Description 04/05/2023 Orders Only [facility] [address] [facility] [address] Anabell Martinez LPN Social History Tobacco Use [...] on filedocumented in this encounter Care Teams Reviewer Sales Relationship Specialty Start Date End Date Amber Quiroz MD [address] [place] [address] PCP - General Family Medicine 07/03/18 documented as of this encounter
--- OUTSIDE RECORDS SUMMARY | 2024-08-14 11:49 | XMS_ITS | Encounter Summary ---
Author Organization [employer] Address [address] [facility] 7t [place] [address] Care Team Providers Care Optical Instrument Inspector Name Role Phone Amber Quiroz MD Primary Care Provider [phone] Reason for Visit * Reason Onset Date Comments Med Refill 06/21/2024 Encounter Details Date Type Department Care Team ([facility] st Contact Info) Description 06/21/[address] [facility] MED[facility]INE [address] [place], [place] [phone] Amber Quiroz MD [address] [place], [place] [phone] Med Refill Social History Tobacco Use Types [...] Telephone Encounter - Rachelle Lucero RN - 06/21/2024 10:31 AM EST Please see message below from triage nurse and advise. Called pt. She states she has a kidney infection, stones and severe back pain. Pain 04/11. Pt states The pain is so bad that it is making me vomit . Pt. Was put on antibiotic and pt. Is requesting a refill on her Oxycodone to ease pain. Pt istaking Tylenol extra strength with no relief. Please advise. RIDER TICKET WORKER checked 06/21/24. Last refill of Oxycodone 5mg 11/30/23 qty 12. * Telephone Encounter - Gemma Oliveira - 06/21/2024 10:12 AM EST TC from pt requesting medication refill. Medications needing refill : oxyCODONE (Oxy-IR) 5 MG immediate release capsule To be sent to: [facility] - [place], [place] - [address] [facility] documented in this encounter Plan of Treatment Not on file documented as of this encounter Visit Diagnoses Not on filedocumented in this encounter Care Teams Optical Instrument Inspector Relationship Specialty Start Date End Date Amber Quiroz MD [address] [facility] [place] [address] PCP - General Family Medicine 07/03/18 documented as of this encounter
--- OUTSIDE RECORDS SUMMARY | 2024-08-14 11:49 | XMS_ITS | Encounter Summary ---
Author Organization [employer] Address [address] [facility] [address] 7t [place] [address] Care Team Providers Care Insulation Engineman Name Role Phone Amber Quiroz MD Primary Care Provider [phone] Encounter Details Date Type Department Care Team (Late st Contact Info) Description 03/22/2023 Orders Only [facility] MED[facility]INE [address] [place], [place] [phone] Amber Quiroz MD [address] [place] [address] ASCUS of cervix with negative high risk HPV (Primary Dx); History of cervical dysplasia Social History Tobacco Use Types Packs/Day Years [...] as of this encounter Visit Diagnoses Diagnosis ASCUS of cervix with negative high risk HPV- Primary History of cervical dysplasia Personal history of cervical dysplasia documented in this encounter Care Teams Insulation Engineman Relationship Specialty Start Date End Date Amber Quiroz MD [address] [place] [phone] PCP - General Family Medicine 07/03/18 documented as of this encounter
--- OUTSIDE RECORDS SUMMARY | 2024-08-14 11:49 | XMS_ITS | Encounter Summary ---
Author Organization [employer] Address [address] [facility] 7t [place] [address] Care Team Providers Care Post Closing Specialist Name Role Phone Amber Quiroz MD Primary Care Provider [phone] Reason for Visit * Reason Onset Date Comments Nurse Triage 07/16/2024 Encounter Details Date Type Department Care Team ([facility] st Contact Info) Description 07/16/2024 Telephone [facility] MED[facility]INE [address] [place], [place] [phone] Amber Quiroz MD [address] [place], [place] [phone] Nurse Triage Social History Tobacco Use Types [...] t he electric, gas, oil or water [employer] threatened to shut off services in your [...] Telephone Encounter - Lacy Sahni LPN - 07/16/2024 11:35 AM EST Triage call returned to patient who confirms she was seen last night for right flank pain with identified kidney stone. Patient reports that she is having vomiting as related to pain in right side. Is able to drink water. Patient reports she is unsure how many of the ABT she was discharge home withshe has taken and that she continues with blood noted in urine. Patient reporting severe pain as stone is still inside me . Med compliance and increased fluids discussed. Reviewed with patient home care recommendations, reasons to call back and symptoms that require immediate evaluation in UC or ER. Patient verbalized understanding and agrees. Protocol Used: Recent Medical Visit for Illness Follow-up Call (Adult) Protocol-Based Disposition: Home Care Positive Triage Question: * Recent medical visit within 24 hours and symptoms SAME (unchanged) and caller has additional questions triager can answer * All higher-acuity triage questions were negative Care Advice Discussed: * Note to Triager - Patient Feels Same * Continue Treatment * Reasons To Call Back - You become worse * Telephone Encounter - Khai Kaminski - 07/16/2024 10:32 AM EST Symptoms: Abdominal Pain - Female - Not , Vomiting, Urine - Blood In Outcome: Talk to a nurse or provider within 15 minutes Reason: Severe pain now The caller accepted this outcome. documented in this encounter Plan of Treatment Not on file documented as of this encounter Visit Diagnoses Not on filedocumented in this encounter Care Teams Post Closing Specialist Relationship Specialty Start Date End Date Amber Quiroz MD [address] [place] [address] PCP - General Family Medicine 07/03/18 documented as of this encounter
--- OUTSIDE RECORDS SUMMARY | 2024-08-14 11:49 | XMS_ITS | Clinical Summary ---
Author Organization [employer] Address [address] [facility] [address] [place] [address] Care Team Providers Care Play Back Operator Name Role Phone Amber Quiroz MD Primary Care Provider [phone] Allergies Active Allergy Reactions Criticality Noted Date Comments Acetaminophen 04/24/2023 Aspirin Rash Low 03/02/2023 Haloperidol 04/24/2023 Ibuprofen Rash Low 04/22/2013 Iodinated Contrast Media Hives 03/02/2023 Iodine Rash Low 03/02/2023 Ketorolac Tromethamine Other 03/02/2023 Increased heart rate Metoclopramide 04/24/2023 Nicotine Rash Low 03/02/2023 Nicotine patch Medications FLUoxetine (PROzac) 20 MG capsule TOME ELIZABETH C PSULAS POR V A ORAL TODOS LOS D EN LA DE RICKY 3 Active gabapentin (Neurontin) 100 MG capsule TOME BELINDA C PSULA TODOS LOS D EN LA DE RICKY 3 Active gabapentin (Neurontin) 400 MG capsule TOME BELINDA C PSULA TODOS LOS D AL ACOSTARSE 3 Active clonazePAM (KlonoPIN) 0.5 MG tablet TAKE 1 TABLET BY MOUTH TWICE A DAY NEEDED FOR SEVERE ANXIETY 3 Active mirtazapine (Remeron) 30 MG tablet TOME BELINAD TABLETA TODOS LOS D AL ACOSTARSE 3 Active prazosin (Minipress) 1 MG capsule TOME BELINDA C PSULA TODOS LOS D AL ACOSTARSE 3 Active QUEtiapine (SEROquel) 100 MG tablet TOME BELINDA TABLETA TODOS LOS D AL ACOSTARSE 3 Active topiramate (Topamax) 25 MG tablet TOME BELIDNA TABLETA DOS VECES AL D A 3 Active zolpidem (Ambien) 10 MG tablet TOME BELINDA TABLETA TODOS LOS D AL ACOSTARSE CUANDO SEA NECESARIO FOR INSOMNIA 3 Active lisinopril 10 MG tabletIndications: Essential hypertension TAKE 1 TABLET BY MOUTH EVERY DAY IN THE MORNING 90 tablet 4 Active Fluticasone-Salmet nusrat (Advair Diskus) 500-50 MCG/ACT aerosol powder Inhale 1 puff 2 times daily. 60 each 5 4 Active loratadine (Claritin) 10 MG tabletIndications: Allergic rhinitis, unspecified seasonality, unspecified trigger Take 1 tablet (10 mg) by mouth Once per day. 90 tablet 3 4 Active melatonin 5 MG tablet Take 2 tablets by mouth at bedtime. 4 Active naloxone (Narcan) 4 mg/0.1 mL nasal spray PLEASE SEE ATTACHED FOR DETAILED DIRECTIONS 4 Active amLODIPine (Norvasc) 10 MG tablet TAKE 1 TABLET BY MOUTH EVERY DAY 90 tablet 1 4 Active atorvastatin (Lipitor) 10 MG tablet TAKE 1 TABLET BY MOUTH EVERY DAY 90 tablet 1 4 Active cefpodoxime (Vantin) 100 MG tablet TOME BELINDA TABLETA CADA 12 HORAS POR 5 D 3 Active ondansetron ODT (Zofran-ODT) 4 MG disintegrating tablet TOME BELINDA TABLETA POR V A ORAL CADA OCHO HORAS CUANDO SEA NECESARIO FOR NAUSEA 4 Active oxyCODONE (Oxy-IR) 5 MG immediate release capsule TAKE 1 CAPSULE BY MOUTH EVERY 8 HOURS NEEDED FOR PAIN 4 Active potassium chloride ER (Micro-K) 10 MEQ ER capsule TOME BELINDA C PSULA TODOS LOS D POR 7 D 3 Active traMADol (Ultram) 50 MG tablet TOME 1 TABLETA POR V A ORAL CADA 12 HORAS 4 Active ondansetron (Zofran) 4 MG tabletIndications: Nausea TAKE 1 TABLET BY MOUTH EVERY 8 HOURS NEEDED FOR NAUSEA AND VOMITING 30 tablet 1 4 Active albuterol (Ventolin HFA) 108 (90 Base) MCG/ACT inhalerIndications :Moderate persistent asthma without complication INHALE 2 PUFFS BY MOUTH EVERY 4 TO 6 HOURS NEEDED DIFFICULTY BREATHING NO MORE THAN FOUR TIMES DAILY 18 g 4 Active acetaminophen (Tylenol 8 Hour) 650 MG ER tabletIndications: Pain TAKE 1 TABLET BY MOUTH EVERY 8 HOURS NEEDED FOR PAIN OR FEVER 60 tablet 1 4 Active Active Problems Patient Care Coordination No te Formatting of this note migh t be different from the original. 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 Atypical chest pain 04/01/2024 Arthralgia of hip 04/01/2024 Back pain 04/01/2024 Hyperlipidemia 04/01/2024 Moderate persistent asthma without complication 11/30/2023 Allergic rhinitis 11/30/2023 Nephrolithiasis 11/30/2023 Nausea 11/30/2023 Assessment & Plan (11/30/2023 8:32 AM EDT): Continue Zofran prn Kidney stones 07/27/2023 Loin pain hematuria syndrome 05/04/202308/2022 Anxiety 03/22/2023 CP (chronic pancreatitis) 03/22/2023 Delivery by elective section 03/22/2023 H/O tubal ligation 03/22/2023 Hx of renal calculi 03/22/2023 Cobalamin deficiency 11/07/2018 History of total knee arthroplasty 03/19/2018 Dyslipidemia 07/13/2016 Osteoarthritis of knee 07/13/2016 Essential hypertension 09/16/2015 Assessment & Plan (11/30/2023 8:30 AM EDT): -Goal BP < 140/90 per JNC-8, < 130/80 per ACC/AHA guideline (Tx threshold > 140/90) -Continue Amlodipine 10 mg daily. -Continue working on lifestyle modification. -Continue checking home BP -Follow up in 2 months or sooner if any problem arises Recurrent urinary tract infection 04/21/2014 Disorder of lung 04/22/2013 05/04/2023 Asthma with COPD 10/22/2012 Lung mass 10/22/2012 05/04/2023 Anemia 06/05/2012 Assessment & Plan (11/30/2023 8:31 AM EDT): - Labs ordered - Counseled on increasing consumption of iron rich foods Gastroesophageal reflux disease 06/05/2012 Impaired fasting glucose 06/05/2012 Mood disorder 06/05/2012 Panic disorder without agoraphobia 12/26/2011 Encounters Date Type Department Care Team Description 07/16/2024 Telephone [facility] [address] [place] [address] Amber Quiroz MD Nurse Triage 07/15/2024 Orders Only GENERIC EXTERNAL DATA DEPARTMENT Provider, Generic External Data 06/21/2024 Telephone [facility] [address] [place] [address] Amber Quiroz MD Med Refill 06/21/2024 Telephone [facility] [address] [place] [address] Amber Quiroz MD ER Follow-up 06/20/2024 Refill [facility] [address] [place], [place] [phone] Amber Quiroz MD Pain 06/07/2024 Refill [facility] [address] [place] [address] Amber Quiroz MD Nausea; Moderate persistent asthma without complication from Last 3 Months Immunizations Name Administration Dates Next Due DTaP 11/05/2012 Hep B, adult 11/29/2023,04/18/2023,03/22/2023 Influenza Injectable Quadriv alant Preservative Free IIV4 MDCK 07/17/2018 Influenza injectable quadriv alent preservative free 03/22/2023,04/02/2021,06/29/2020,03/07,04/29/2017,04/28/2017,07/13/2016 Influenza, IIV3, injectable 04/21/2014, 8 Influenza, Injectable, MDCK, preservative free 06/02/2015 Influenza, Split (incl. archana fied surface antigen) 07/25/2013 Moderna Covid-19 Vaccine + 08/10/2021 Pfizer Covid-19 Vaccine 12+ 02/19/2021, 1 Pneumococcal Conjugate PCV 13 04/29/2017 Pneumococcal Polysaccharide PPSV23 09/14/2015,,08/15/2012 Pneumococcal, Unspecified 08/15/2012 TD (adult), 2 Lf tetanus tox oid, preservative free, adsorbed 03/15/2019 Td (adult), 5 Lf tetanus tox oid, preservative free, adsorbed 12/21/2012 Tdap 08/15/2012 Zoster, Recombinant 04/03/2023 Family History Medical History Relation Name Comments Coronary artery disease Father Relation Name Status Comments Father Social History Tobacco Use Types Packs/Day Years Used Date Smoking Tobacco: Former Cigarettes Tobacco Cessation:Counseling Given: Not Answered Housing Stability Answer Date Recorded What is your housing situation today? I have oly soria 05/08/[address] you [...] Orientation Straight 05/02/2022 10 :14 AM EDT Last Filed Vital Signs Vital Sign Reading Time Taken Comments Blood Pressure 137/96 01/12/2024 10:24 AM EDT Pulse 82 01/12/2024 10:24 AM EDT Temperature 36.7 ??C (98 ??F) 01/12/2024 10:24 AM EDT Respiratory Rate 20 01/12/2024 10:24 AM EDT Oxygen Saturation 98% 01/12/2024 10:24 AM EDT Inhaled Oxygen Concentration - - Weight 67.1 kg (148 lb) 01/12/2024 10:24 AM EDT Height 152.4 cm (5') 01/12/2024 10:24 AM EDT Body Mass Index 28.9 01/12/2024 10:24 AM EDT Plan of Treatment Health Maintenance Due Date Last Done Comments CT Colonography 1964 Depression Screening 1964 FIT DNA/Cologuard 1964 FIT 1964 FOBT 1965 HIV Screening 1965 Lipid Panel 1964 Sigmoidoscopy 1964 Alcohol/Substance Use Screening 1976 Hepatitis C Screening 1982 Mammogram 2004 Colonoscopy 07/31/2021 Colorectal Cancer Screening 07/31/2021 Colposcopy 07/31/2021 Pneumococcal Vaccine: 50+ Years (3 of 3 - PCV20 or PCV21) 04/29/2022 04/29/2017, 09/14/2015, 09/21/2014, Additional history exists Zoster Vaccines (2 of 2) 05/29/2023 04/03/2023 COVID-19 Vaccine ( season) 2024 08/10/2021, 02/19/2021, 01/29/2021 Influenza Vaccine (#1) 2024 , 04/02/2021, 06/29/2020, Additional history exists Pap Smear 07/30/2024 07/30/2021 Tobacco Screening 01/18/2025 01/19/2024 SDOH Screening 02/26/2025 02/27/2024 Cervical Cancer Screening 07/30/2026 HPV/Cotest 07/30/2026 07/30/2021, 01/28/2019 DTaP/Tdap/Td Vaccines (5 - Td or Tdap) 03/15/2029 03/15/2019, 12/21/2012, 11/05/2012, Additional history exists RSV Patients and Patients Aged 60 years or older (1 - 1-dose 75+ series) 11/20/2039 Hepatitis B Vaccines Completed 11/29/2023, 04/18/2023, 03/22/2023 HIB Vaccines Aged Out No longer eligi ble based on patient's age to complete this topic HPV Vaccines Aged Out No longer eligi ble based on patient's age to complete this topic Hepatitis A Vaccines Aged Out No long er eligible based on patient's age to complete this topic IPV Vaccines Aged Out No longer eligi ble based on patient's age to complete this topic Meningococcal Vaccine Aged Out No isela laila eligible based on patient's age to complete this topic RSV under 20 months Aged Out No longe r eligible based on patient's age to complete this topic Rotavirus Vaccines Aged Out No longer eligible based on patient's age to complete this topic Procedures Procedure Name Priority Date/Time Associated Diagnosis Comments CT ABDOMEN PELVIS WO CONTRAST Routine 08/14/2024 10:31 AM EST BLOOD CULTURE (FIRST) Routine 07/15/2024 6:09 PM EST BLOOD CULTURE (SECOND) Routine 07/15/2024 6:09 PM EST CULTURE, URINE, ROUTINE Routine 07/15/2024 5:00 PM EST URINALYSIS, COMPLETE, WITH REFLEX TO CULTURE Routine 07/15/2024 4:[address] ABDOMEN PELVIS WO CONTRAST Routine 07/15/2024 4:03 PM EST THINPREP IMAGING PAP AND HPV MRNA E6/E7 WITH REFLEX TO HPV 16,18/45 Routine 07/30/2021 10:17 AM EST from Last 3 Months or Most Recently Relevant to Health Maintenance Results * CT Abdomen Pelvis w/o Contrast (08/14/2024 10:31 AM EST) Only the most recent of2 resultswithin the time period is included. Anatomical Region Laterality Modality Body, Pelvis, Abdomen Computed T omography 08/14/2024 10:3 1 AM EST Narrative 08/14/2024 11:34 AM EST ? [facility] ?[address] ?[place] [address] ? CT Scan Report ? Signed ? Patient: Marquez,Zelidez ?MR#: [id number] ?? [id number] ? : 1965 ?Acct:[id number] ? Age/Sex: 58 / F ?ADM Date: 08/14/24 ? Loc: HO.ED ? Attending Dr: ? Ordering Physician: Radha Crowder NP ?? Date of Service: 08/14/24 ?? Procedure(s): CT abdomen pelvis wo IV con ?? Accession Number(s): [id number] ? cc: Amber Quiroz MD; Radha Crowder NP ? Report Number: ?? [id number]: Total DLP = ??365.00 mGy-cm ?? EXAMINATION: [...] DD/ 1031 ? TD/TT: 08/14/24 1104 ? Chiropractic Physician: ? Procedure Note Donotuseinterpreter, Image - 08/14/[address] [address] [address] Scan Report Signed Patient: Heidi Marquez#: [id number] : 1965Acct:[id number] Age/Sex: 58 / FADM Date: 08/14/24 Loc: HO.ED Attending Dr: Ordering Physician: Radha Crowder NP Date of Service: 08/14/24 Procedure(s): CT abdomen pelvis wo IV con Accession Number(s): [id number] cc: Amber Quiroz MD; Radha Crowder NP Report Number: [id number]: Total DLP = 365.00 mGy-cm EXAMINATION: CT [...] 08/14/24 1131 DD/ 1031 TD/TT: 08/14/24 1104 Chiropractic Physician: [facility] External Provider IMG CT PROCEDURES Final Result * Blood Culture (First) (07/15/2024 6:09 PM EST) Blood Venous blood specimen / Unknown 07/15/2024 6:09 PM EST 07/15/2024 6:14 PM EST Comment:Blood Narrative [facility] - 07/20/2024 8:14 PM EST Blood Culture (First) No growth after 5 days. Specimen Source: Blood Generic External Data Provider LAB MICROBIOLOGY - GENERAL ORDERABLES Final Result [facility] [address] [place] [phone] * Blood Culture (Second) (07/15/2024 6:09 PM EST) Blood Venous blood specimen / Unknown 07/15/2024 6:09 PM EST 07/15/2024 6:14 PM EST Comment:Blood Narrative [facility] - 07/20/2024 8:14 PM EST Blood Culture (Second) No growth after 5 days. Specimen Source: Blood Generic External Data Provider LAB MICROBIOLOGY - GENERAL ORDERABLES Final Result Performing Organization Address [facility] Co de Phone Number [facility] [address] [place] [phone] * Culture, Urine, Routine (07/15/2024 5:00 PM EST) Urine Urine specimen obtained by clean catch procedure / Unknown 07/15/2024 5:00 PM EST 07/15/2024 5:00 PM EST Comment:UACC Narrative [facility] - 07/17/2024 10:40 AM EST Urine Culture Report Result Urine Culture 10,000 to 50,000 cfu/ml Urine Culture Mixed bacterial geovanny characteristic of Urine Culture urogenital contamination. Specimen Source: Urine clean catch [employer] External Data Provider LAB MICROBIOLOGY - GENERAL ORDERABLES Final Result Performing Organization Address [facility] de Phone Number [facility] [address] [place] [phone] * (ABNORMAL) Urinalysis, Complete, with Reflex to Culture (07/15/2024 4:36 PM EST) Color Urine Other(A) [facility] Appearance Urine Hazy [facility] PH 5.5 5.0 - 9.0 [facility] Glucose Urine UA Negative Negative mg/dL [facility] Urine Blood Large (3+)(A) Negative [facility] Specific [place] - Urine 1.025 1.005 - 1.025 [facility] Urine Protein 100 (2+)(A) Neg-Trace mg/dL [facility] Urine Ketones Negative Negative mg/dL [facility] Nitrite Urine Positive(A) Negative [facility] Leukocyte Esterase Urine Negative Negative [facility] RBC Urine >20(A) 0 - 2 /HPF [facility] Urine WBC 0-5 0 - 5 /HPF [facility] Urine Squamous Epithelial Cell 3-5 0 - 2 /HPF [facility] Urine Bacteria None Seen None Seen [facility] Hyaline Casts, Urine 0-2 0 - 2 /LPF [facility] 07/15/2024 4:36 PM EST 07/15/2024 4:49 PM EST Narrative [facility] - 07/15/2024 4:59 PM EST [id number], Clean Catch us Generic External Data Provider LAB URINE ORDERAB LES Final Result [facility] [address] [place] [phone] * (ABNORMAL) THINPREP TIS PAP AND HPV mRNA E6/E7 WITH REFLEX TO HPV 16,18/45 (07/30/2021 10:17 AM EST) Clinical Information: PM BLEEDING [facility] COMMENT SEE COMMENT [facility] Comment: EXPLANATORY NOTE: ? The Pap is a screening test for cervical cancer. It is ?? not a diagnostic test and is subject to false negative ?? and false positive results. It is most reliable when a ?? satisfactory sample, regularly obtained, is submitted ?? with relevant clinical findings and history, and when ?? the Pap result is evaluated along with historic and ?? current clinical information. ?? COMMENT: This Pap test has been evaluated with computer assisted technology. [facility] Household Chores: SEE COMMENT [facility] Comment: BJ, CT(ASCP) CT screening location: [address] ??[phone] General Categorization: EPITHELIAL CELL ABNORMALITY(A ) [facility] HPV nRNA E6/E7 Not Detected Not Detected [facility] Comment: Methodology: Assistant Guest Services Manager-Mediated Amplification This assay detects E6/E7 viral messenger RNA (mRNA) from 14 high-risk HPV types (16,18,31,33,35,39,45,51,52,56,58,59,66,68). ? The analytical performance characteristics of this assay have been determined by [employer]. The modifications have not been cleared or approved by the FDA. This assay has been validated pursuant to the CLIA regulations and is used for clinical purposes. ?? For additional information, please refer to http://education.Aptera/faq/AWG776i9 (This link if provided for information/ educational purposes only.) Infection Shift in vaginal geovanny suggestive of bacterial vaginosis. [facility] Interpretation/Res ult: SEE COMMENT(A) [facility] Comment: Atypical Squamous Cells of Undetermined Significance (ASC-US) Rare cells are approaching low grade dysplasia. LMP: NONE GIVEN [facility] PATHOLOGIST: SEE COMMENT [facility] Comment: Jennifer Branch M.D., Board Certified in Anatomic and Clinical Pathology (electronic signature) Consulting Pathologist [facility] Pathology [phone] Prev. BX: NONE GIVEN [facility] Prev. PAP: NONE [facility]IVEN [facility] SOURCE: None given [facility] Statement Of Adequacy: SEE COMMENT [facility] Comment: Satisfactory for evaluation. Endocervical/transformation zone component present. 07/30/2021 10:1 7 AM EST us Saleem Maier MD LAB PATHOLOGY ORDERABLES Final R esult Performing Organization Address City/State/[facility] Co de Phone Number [facility] [address] from Last 3 Months or Most Recently Relevant to Health Maintenance Insurance [facility] C3 Care Teams Play Back Operator Relationship Specialty Start Date End Date Amber Quiroz MD [address] [place] [phone] PCP - General Family Medicine 07/03/18
--- OUTSIDE RECORDS SUMMARY | 2024-08-14 11:49 | XMS_ITS | Encounter Summary ---
Author Organization [employer] Address [address] [facility] [address] [place] [address] Care Team Providers Care Manufacturing Finance Manager Name Role Phone Amber Quiroz MD Primary Care Provider [phone] Encounter Details Date Type Department Care Team (Late st Contact Info) Description 12/12/2022 Orders Only [facility] MEDICINE [address] [place], [place] [phone] Anabell Martinez LPN Social History Tobacco Use [...] on filedocumented in this encounter Care Teams Manufacturing Finance Manager Relationship Specialty Start Date End Date Amber Quiroz MD [address] [place] [address] PCP - General Family Medicine 07/03/18 documented as of this encounter
[2024-08-14 11:55] VITALS: RESP 18
[2024-08-14] MEDS: Morphine Sulfate 2 MG/ML CARTRIDGE IVPUSH (11:55)
[2024-08-14 12:06] LABS: Appearance Urine Clear; Color Urine Yellow; Glucose Urine UA Negative (Negative); Leukocyte Esterase Urine Negative (Negative); Nitrite Urine Negative (Negative); Specific Gravity - Urine 1.015 (1.005-1.025); Urine Blood Negative (Negative); Urine Ketones Negative (Negative); Urine Protein Negative (Neg-Trace)
[2024-08-14 12:17] VITALS: BP 123/64; PULSE 64; RESP 18; O2SAT 99
[2024-08-14 12:49] VITALS: BP 123/64; PULSE 64; RESP 18; TEMP 36.8; O2SAT 99
== END 2024-08-14 12:56 | disposition home or self-care (01) ==
PROVIDERS: Registered Nurse Emergency; Emergency Provider Emergency Medicine; PCP Family Medicine
DX: R10.2 Pelvic and perineal pain (principal); R31.9 Hematuria, unspecified; R11.0 Nausea; Z03.818 Encounter for observation for suspected exposure to other biological agents ruled out; Z79.899 Other long term (current) drug therapy
CPT/HCPCS: 0241U; 36415; 74176; 80053; 81003; 85025; 96361; 96374; 96375; 96376; 99284; J2270; J2405

== ENCOUNTER → 2024-08-14 09:57 | Outpatient (BNV) | payer MEDICAID, SELFPAY | PROVIDERS: Emergency Provider Emergency Medicine; PCP Family Medicine; Visit Provider Radiology Diagnostic Radiology | DX: N20.0 Calculus of kidney (principal) | CPT/HCPCS: 74176 ==

== ENCOUNTER 2024-08-17 05:43 | Emergency (ER) | payer MEDICAID, SELFPAY ==
[2024-08-17 05:51] VITALS: BP 124/70; PULSE 68; O2SAT 99
[2024-08-17 05:54] VITALS: BP 133/71; PULSE 88; RESP 20; TEMP 36.8; O2SAT 100
[2024-08-17 05:56] VITALS: BMI 24.6
--- NOTE | 2024-08-17 06:08 | PC.NURSE ---
pt unhappy with meds offered her for pain. states she wanted to leave instead. aware
--- NOTE | 2024-08-17 06:25 | ED_ITS ---
HPI - General Adult General Chief complaint: Back Pain/Injury Stated complaint: UPPER ABD PAIN Time Seen by Provider: 08/17/24 05:50 Source: patient Mode of arrival: EMS Limitations: no limitations History of Present Illness ED Provider: HPI narrative: Patient with frequent ED visits with nonobstructive kidney stones been here on 08/[address] scans in last 6 months showing nonobstructive kidney stone asking for narcotics comes here for the pain which is similar pain as in the past no nausea no vomiting Related Data Home Medications ?Medication ?Instructions ?Recorded ?Confirmed albuterol sulfate 90 mcg/actuation 2 puff PO Q4-6H PRN dyspnea 11/26/20 11/26/20 aerosol inhaler (ProAir HFA) amlodipine 10 mg tablet 1 tab PO DAILY 11/26/20 11/26/20 ascorbic acid (vitamin C) 250 mg 1 tab PO BID 11/26/20 11/26/20 tablet atorvastatin 10 mg tablet 1 tab PO DAILY 11/26/20 11/26/20 clonidine HCl 0.2 mg tablet 1 tab PO BID PRN panic attack 11/26/20 11/26/20 cyanocobalamin (vitamin B-12) 500 1 tab PO DAILY 11/26/20 11/26/20 mcg tablet docusate sodium 100 mg capsule 1 - 2 cap PO BEDTIME PRN 11/26/20 11/26/20 constipation fluoxetine 20 mg capsule 3 cap PO QAM 11/26/20 11/26/20 gabapentin 100 mg capsule 1 cap PO TID PRN anxiety 11/26/20 11/26/20 gabapentin 400 mg capsule 1 cap PO BEDTIME 11/26/20 11/26/20 loratadine 10 mg tablet 1 tab PO DAILY 11/26/20 11/26/20 loratadine 10 mg tablet 1 tab PO DAILY 11/26/20 11/26/20 mirtazapine 30 mg tablet 1 tab PO BEDTIME 11/26/20 11/26/20 mirtazapine 30 mg tablet 1 tab PO BEDTIME 11/26/20 11/26/20 ondansetron HCl 4 mg tablet 1 tab PO Q8H PRN nausea 11/26/20 11/26/20 polyvinyl alcohol 1.4 % eye drops 1 drp ophthalmic (eye) TID 11/26/20 11/26/20 (Artificial Tears (polyvinyl alcohol)) quetiapine 25 mg tablet 1 tab PO BID PRN anxiety 11/26/20 11/26/20 topiramate 25 mg tablet 1 tab PO BID 11/26/20 11/26/20 zolpidem 10 mg tablet 1 tab PO BEDTIME PRN insomnia 11/26/20 11/26/20 Previous Rx's ?Medication ?Instructions ?Recorded tramadol 50 mg tablet 50 mg PO Q8H PRN pain #3 tabs 11/26/20 nitrofurantoin 100 mg PO BID #14 caps 05/26/21 monohydrate/macrocrystals 100 mg capsule (Macrobid) phenazopyridine 100 mg tablet 100 mg PO TID PRN pain 6 doses #6 05/26/21 (Pyridium) tabs cefuroxime axetil 250 mg tablet 250 mg PO BID 7 days #14 tabs 07/15/21 morphine 15 mg immediate release 15 mg PO BID PRN pain #8 tabs 07/15/21 tablet docusate sodium 100 mg capsule 100 mg PO BID #20 caps 07/21/21 (Colace) sennosides 8.6 mg tablet (senna) 8.6 mg PO BEDTIME #14 tabs 07/21/21 docusate sodium 100 mg capsule 100 mg PO BID PRN Constipation #14 11/23/21 (Colace) caps nitrofurantoin 100 mg PO BID uti 7 days #14 caps 11/23/21 monohydrate/macrocrystals 100 mg capsule (Macrobid) ondansetron 4 mg disintegrating 4 mg PO Q6H nausea/vomiting #14 11/23/21 tablet tabs cephalexin 500 mg capsule 500 mg PO Q8H 7 days #21 caps 08/02/22 ondansetron 4 mg disintegrating 4 mg PO Q8H PRN nausea and 03/02/23 tablet vomiting #10 tabs phenazopyridine 200 mg tablet 200 mg PO TID PRN pain 6 doses #6 03/02/23 (Pyridium) tabs acetaminophen 325 mg capsule 650 mg (2 x 325 mg) PO Q6H PRN 04/01/24 (Tylenol) pain #30 caps cefdinir 300 mg capsule 300 mg PO BID 5 days #10 caps 04/01/24 cephalexin 500 mg capsule 500 mg PO BID #14 caps 07/15/24 ondansetron HCl 4 mg tablet 4 mg PO Q8H PRN nausea and 07/15/24 vomiting #10 tabs oxycodone 5 mg tablet 5 mg PO Q6H PRN pain, moderate #10 07/15/24 tabs tamsulosin 0.4 mg capsule (Flomax) 0.4 mg PO DAILY #6 caps 07/15/24 dicyclomine 10 mg capsule 10 mg PO BID #14 caps 08/14/24 ondansetron 4 mg disintegrating 4 mg PO Q8H PRN nausea and 08/14/24 tablet vomiting #10 tabs Allergies Allergy/AdvReac Type Severity Reaction Status Date / Time aspirin [ASA] Allergy Intermediate RASH, Verified 08/17/24 05:57 nausea and vomiting ibuprofen [IBUPROFEN] Allergy Intermediate RASH Verified 08/17/24 05:57 nicotine Allergy Intermediate RASH FROM Verified 08/17/24 05:57 NICOTINE PATCH, nausea and vomiting ketorolac [From TORADOL] Allergy Mild RAPID HR Verified 08/17/24 05:57 AND HIVES haloperidol [From Haldol] Allergy Anaphylaxis Verified 08/17/24 05:57 metoclopramide [From Reglan] Allergy Unknown Verified 08/17/24 05:57 Review of Systems Review of Systems: Yes all other systems are reviewed and are negative [facility] Past Medical History Medical History delivery delivered HTN (hypertension) Anemia Hypercholesteremia DVT (deep venous thrombosis) Kidney stones Surgical History Total knee replacement status Social History Social History Unable to assess alcohol history related to: Unknown Alcohol intake: never Patient Tobacco Use Status: Current everyday Tobacco user Advance Directives: No Advance Directives Information Provided: No Physical Exam ED Vital Signs: Vital Signs - 24 hr 08/17/24 05:54 08/17/24 06:36 Temperature 98.3 F 98.3 F Pulse Rate 88 88 Respiratory Rate 20 20 Blood Pressure 133/71 133/71 Pulse Oximetry 100 100 Oxygen Delivery Method Room Air Room Air BMI result Body Mass Index 24.6 Appearance: Alert. Oriented X3. No acute distress. Eyes: PERRLA, No Nystagmus ENT: Pharynx normal. Oral Mucosa moist Neck: Normal inspection. Neck supple. CVS: Normal heart rate and rhythm. Pulses normal. Respiratory: No respiratory distress. Equal air entry bilateral, no wheezing/rales/rhonchi Abdomen: Soft and nontender. Bowel sounds are present, no mass palpable, no CVA tenderness Skin: Skin warm and dry. Normal skin color. Normal skin turgor. Extremities: No lower extremity edema. No calf tenderness Neuro: Oriented X 3. No motor deficit. 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's narcotic seeker refused other pain management and walked out of the ER without any significant with distress Discharge Plan Discharge Clinical Impression: Chronic pain Patient Disposition: Left W/O Completing Treatment Prescriptions: No Action quetiapine 25 mg tablet 1 tab PO BID PRN (Reason: anxiety) atorvastatin 10 mg tablet 1 tab PO DAILY polyvinyl alcohol [Artificial Tears (polyvin alc)] 1.4 % drops 1 drp ophthalmic (eye) TID ondansetron HCl 4 mg tablet 1 tab PO Q8H PRN (Reason: nausea) gabapentin 400 mg capsule 1 cap PO BEDTIME topiramate 25 mg tablet 1 tab PO BID clonidine HCl 0.2 mg tablet 1 tab PO BID PRN (Reason: panic attack) cyanocobalamin (vitamin B-12) 500 mcg tablet 1 tab PO DAILY ascorbic acid (vitamin C) 250 mg tablet 1 tab PO BID amlodipine 10 mg tablet 1 tab PO DAILY mirtazapine 30 mg tablet 1 tab PO BEDTIME mirtazapine 30 mg tablet 1 tab PO BEDTIME docusate sodium 100 mg capsule 1 - 2 cap PO BEDTIME PRN (Reason: constipation) gabapentin 100 mg capsule 1 cap PO TID PRN (Reason: anxiety) zolpidem 10 mg tablet 1 tab PO BEDTIME PRN (Reason: insomnia) albuterol sulfate [ProAir HFA] 90 mcg/actuation HFA aerosol inhaler 2 puff PO Q4-6H PRN (Reason: dyspnea) fluoxetine 20 mg capsule 3 cap PO QAM loratadine 10 mg tablet 1 tab PO DAILY loratadine 10 mg tablet 1 tab PO DAILY tramadol 50 mg tablet 50 mg PO Q8H PRN (Reason: pain) Qty: 3 0RF morphine 15 mg tablet 15 mg PO BID PRN (Reason: pain) Qty: 8 0RF cefuroxime axetil 250 mg tablet 250 mg PO BID 7 Days Qty: 14 0RF nitrofurantoin monohyd/m-cryst [Macrobid] 100 mg capsule 100 mg PO BID Qty: 14 0RF Rx Instructions: must administer with a meal/food phenazopyridine [Pyridium] 100 mg tablet 100 mg PO TID PRN (Reason: pain) Qty: 6 0RF sennosides [senna] 8.6 mg tablet 8.6 mg PO BEDTIME Qty: 14 0RF docusate sodium [Colace] 100 mg capsule 100 mg PO BID Qty: 20 0RF docusate sodium [Colace] 100 mg capsule 100 mg PO BID PRN (Reason: Constipation) Qty: 14 0RF ondansetron 4 mg tablet,disintegrating 4 mg PO Q6H Qty: 14 0RF nitrofurantoin monohyd/m-cryst [Macrobid] 100 mg capsule 100 mg PO BID 7 Days Qty: 14 0RF Rx Instructions: must administer with a meal/food cephalexin 500 mg capsule 500 mg PO Q8H 7 Days Qty: 21 0RF phenazopyridine [Pyridium] 200 mg tablet 200 mg PO TID PRN (Reason: pain) Qty: 6 0RF ondansetron 4 mg tablet,disintegrating 4 mg PO Q8H PRN (Reason: nausea and vomiting) Qty: 10 0RF cephalexin 500 mg capsule 500 mg PO BID Qty: 14 0RF ondansetron HCl 4 mg tablet 4 mg PO Q8H PRN (Reason: nausea and vomiting) Qty: 10 0RF tamsulosin [Flomax] 0.4 mg capsule 0.4 mg PO DAILY Qty: 6 0RF oxycodone 5 mg tablet 5 mg PO Q6H PRN (Reason: pain, moderate) Qty: 10 0RF Rx Instructions: Partial Fill upon patient request. ondansetron 4 mg tablet,disintegrating 4 mg PO Q8H PRN (Reason: nausea and vomiting) Qty: 10 0RF dicyclomine 10 mg capsule 10 mg PO BID Qty: 14 0RF cefdinir 300 mg capsule 300 mg PO BID 5 Days Qty: 10 0RF acetaminophen [Tylenol] 325 mg capsule 650 mg PO Q6H PRN (Reason: pain) Qty: 30 0RF Interventions: ED Discharge Assessment Last Done: 08/17/24 06:36 Discharge Date/Time: 08/17/24 06:34
[2024-08-17 06:36] VITALS: BP 133/71; PULSE 88; RESP 20; TEMP 36.8; O2SAT 100
== END 2024-08-17 06:34 | disposition left against medical advice (07) ==
PROVIDERS: Emergency Provider Internal Medicine; PCP Family Medicine
DX: G89.29 Other chronic pain (principal); N20.0 Calculus of kidney; Z79.899 Other long term (current) drug therapy
CPT/HCPCS: 99281; 99283

== ENCOUNTER 2024-09-03 16:23 | Outpatient (REF) | payer MEDICAID, SELFPAY ==
[2024-09-03 18:16] LABS: MANUAL DIFF FLAG NO
[2024-09-03 18:35] LABS: Estimated Average Glucose 114 mg/dL; Hemoglobin A1C 114.6314 umol/L; Hemoglobin A1c % 5.6 % (<6.0); Total Hemoglobin (HGBA1C) 3066.5146 umol/L
[2024-09-03 18:45] LABS: Basophils Percent Auto 0.5 % (0-2); Eosinophils Absolute Auto 0.1 X10*3/uL (0.0-0.4); Eosinophils Percent Auto 1.4 % (0-4); Hematocrit 35.9 % (37.0-47.0); Hemoglobin 11.4 g/dl (12.0-16.0); Imm Gran Abs Auto 0.01 X10*3/uL (0.00-0.03); Imm Gran Pct Auto 0.2 % (0.0-0.4); Lymphocytes Absolute Auto 1.9 X10*3/uL (1.2-4.9); Lymphocytes Percent Auto 45.1 % (20-40); Mean Corpuscular HGB Conc 31.8 g/dl (31.0-35.0); Mean Corpuscular Hemoglobin 26.3 pg (27.0-33.0); Mean Corpuscular Volume 82.7 fL (80.0-98.0); Mean Platelet Volume 10.5 fL (9.4-12.3); Monocytes Absolute Auto 0.3 X10*3/uL (0.1-1.2); Monocytes Percent Auto 6.8 % (2-11); Platelet Count 277 X10*3/uL (160-400); Red Blood Count 4.34 X10*6/uL (4.20-5.50); Red Cell Distribution Width 15.3 % (11.0-16.0); White Blood Count 4.3 X10*3/uL (4.8-10.8)
[2024-09-03 18:47] LABS: Alanine Aminotransferase 11 U/L (0-31); Albumin Level 4.4 g/dL (3.5-5.0); Alkaline Phosphatase 87 U/L (39-117); Anion Gap 13 (12-20); Aspartate Amino Transferase 28 U/L (5-31); Bilirubin Total 0.4 mg/dL (0.0-1.0); Blood Urea Nitrogen 15 mg/dL (9-16); Calcium 8.6 mg/dL (8.4-10.2); Carbon Dioxide 23 mmol/L (22-29); Chloride 111 mmol/L (96-108); Cholesterol 183 mg/dL (<200); Estimated Glomerular Filt Rate > 60; Glucose Random 91 mg/dL (60-115); HDL Cholesterol 49 mg/dL (>40); Iron 69 mcg/dL (30-160); LDL Cholesterol Calculated 112 mg/dL (<100); Percent Iron Saturation 28 % (15-50); Potassium 3.9 mmol/L (3.3-5.1); Sodium 143 mmol/L (135-145); Total Iron Binding Capacity 250 mcg/dL (228-428); Triglycerides 112 mg/dL (<150); Unsaturated Iron Binding 181 ug/dL
[2024-09-03 19:05] LABS: Ferritin 51 ng/mL (10-250); TSH reflex Free T4 1.08 uIU/mL (0.32-4.0)
[2024-09-03 19:08] LABS: Folate 9.9 ng/mL (> or = 4.0); Vitamin B12 247 pg/mL (200-900)
[2024-09-03 19:15] LABS: Reflex LDLD? No
--- OUTSIDE RECORDS SUMMARY | 2024-09-03 20:09 | XMS_ITS | Encounter Summary ---
Author Organization [employer] Address [address] [facility] 7t [place] [address] Care Team Providers Care Wire Stitcher Operator Name Role Phone Amber Quiroz MD Primary Care Provider [phone] Reason for Visit * Reason Comments Med Refill Encounter Details Date Type Department Care Team ([facility] st Contact Info) Description 08/15/2024 Refill [facility] MEDICINE [address] [place], [place] [phone] Amber Quiroz MD [address] [place], [place] [phone] Nausea Social History Tobacco Use Types Packs/Day [...] the past 12 months, has t he [employer], [employer], oil or water company threatened to shut [...] as of this encounter Plan of Treatment Upcoming Encounters Date Type Department Care Team (Late st Contact Info) Description 10/01/2024 11:30 AM EDT Telemedicine [facility] MEDICINE [address] [place] [address] 11/12/2024 1:30 PM EDT Office Visit [facility] MEDICINE [address] [place] [phone] Amber Quiroz MD [address] [place] [address] documented as of this encounter Visit Diagnoses Diagnosis Nausea Nausea alone documented in this encounter Care Teams Wire Stitcher Operator Relationship Specialty Start Date End Date Amber Quiroz MD [address] [place] [address] PCP - General Family Medicine 07/03/18 documented as of this encounter
--- OUTSIDE RECORDS SUMMARY | 2024-09-03 20:09 | XMS_ITS | Encounter Summary ---
Author Organization [employer] Address [address] [facility] 7t [place] [address] Care Team Providers Care Aircraft Cylinder Mechanic Name Role Phone Amber Quiroz MD Primary Care Provider [phone] Reason for Visit * Reason Comments Med Refill Encounter Details Date Type Department Care Team ([facility] st Contact Info) Description 08/29/2024 Refill [facility] MEDICINE [address] [place], [place] [phone] Amber Quiroz MD 230 [place], [place] [phone] Social History Tobacco Use Types Packs/Day Years [...] the past 12 months, has t he [employer], [employer], [employer], oil or water [employer] threatened to shut off services in [...] Info) Description 10/01/2024 11:30 AM EDT Telemedicine [facility] MEDICINE [address] [place] [address] 11/12/2024 1:30 PM EDT Office Visit [facility] MEDICINE [address] [place] [address] Amber Quiroz MD [address] [place] [address] documented as of this encounter Visit Diagnoses Not on filedocumented in this encounter Care Teams Aircraft Cylinder Mechanic Relationship Specialty Start Date End Date Amber Quiroz MD [address] [place] [phone] PCP - General Family Medicine 07/03/18 documented as of this encounter
--- OUTSIDE RECORDS SUMMARY | 2024-09-03 20:09 | XMS_ITS | Encounter Summary ---
Author Organization [employer] Address [address] [facility] [address] 7t [place] [address] Care Team Providers Care Surface Boss Name Role Phone Amber Quiroz MD Primary Care Provider [phone] Encounter Details Date Type Department Care Team (Late st Contact Info) Description 08/14/2024 Orders Only GENERIC EXTERNAL DATA DEPARTMENT Provider, [...] Info) Description 10/01/2024 11:30 AM EDT Telemedicine [facility] MEDICINE [address] [place] [phone] 11/12/2024 1:30 PM EDT Office Visit [facility] [address] [place] [address] Amber Quiroz MD [address] [place] [address] documented as of this encounter Procedures Procedure Name Priority Date/Time Associated Diagnosis Comments URINALYSIS WITH REFLEX MICROSCOPIC Routine 08/14/2024 11:57 AM EST documented in this encounter Results * Urinalysis w/reflex microscopic (08/14/2024 11:57 AM EST) Color Urine Yellow [facility] Appearance Urine Clear [facility] PH 7.0 5.0 - 9.0 [facility] Glucose Urine UA Negative Negative mg/dL [facility] Urine Blood Negative Negative [facility] Specific [place] - Urine 1.015 1.005 - 1.025 [facility] Urine Protein Negative Neg-Trace mg/dL [facility] Urine Ketones Negative Negative mg/dL [facility] Nitrite Urine Negative Negative [facility] Leukocyte Esterase Urine Negative Negative [facility] 08/14/2024 11:5 7 AM EST 08/14/2024 12:00 PM EST Narrative [facility] - 08/14/2024 12:07 PM EST Urine, Clean Catch us Generic External Data Provider LAB URINE ORDERAB LES Final Result [facility] [address] [place] [phone] documented in this encounter Visit Diagnoses Not on filedocumented in this encounter Care Teams Surface Boss Relationship Specialty Start Date End Date Amber Quiroz MD [address] [place] [phone] PCP - General Family Medicine 07/03/18 documented as of this encounter
--- OUTSIDE RECORDS SUMMARY | 2024-09-03 20:09 | XMS_ITS | Encounter Summary ---
Author Organization [employer] Address [address] [facility] 7t [place] [address] Care Team Providers Care Spray Painter Name Role Phone Amber Quiroz MD Primary Care Provider [phone] Reason for Visit * Reason Onset Date Comments Med Refill 01/10/2024 Encounter Details Date Type Department Care Team ([facility] st Contact Info) Description 01/10/2024 Telephone [facility] MEDICINE [address] [place], [place] [phone] Amber Quiroz MD [address] [place], [place] [phone] Med Refill Social History Tobacco Use Types [...] immediate release tablet To be sent to: [facility] - [place], [place] - [address] [place] [address] documented in this encounter Plan of Treatment Upcoming Encounters Date Type Department Care Team (Late st Contact Info) Description 10/01/2024 11:30 AM EDT Telemedicine [facility] MEDICINE [address] [place] [address] 11/12/2024 1:30 PM EDT Office Visit [facility] MEDICINE [address] [place] [address] Amber Quiroz MD [address] [place] [phone] documented as of this encounter Visit Diagnoses Not on filedocumented in this encounter Care Teams Spray Painter Relationship Specialty Start Date End Date Amber Quiroz MD [address] [place] [phone] PCP - General Family Medicine 07/03/18 documented as of this encounter
--- OUTSIDE RECORDS SUMMARY | 2024-09-03 20:09 | XMS_ITS | Encounter Summary ---
Author Organization [employer] Address 75 [facility] 7t [place] [address] Care Team Providers Care Sports Equipment Supervisor Name Role Phone Amber Quiroz MD Primary Care Provider Reason for Visit * Reason Comments Med Refill Encounter Details Date Type Department Care Team (Late st Contact Info) Description 04/26/2023 Refill [facility] MEDICINE [address] [place] [phone] Alan Partida MD [address] [place], [place] [phone] Moderate persistent asthma without complication; Nausea Social [...] Info) Description 10/01/2024 11:30 AM EDT Telemedicine [facility] MEDICINE [address] [place] [address] [phone] 11/12/2024 1:30 PM EDT Office Visit [facility] MEDICINE [address] [place] [phone] Amber Quiroz MD [address] [place], [place] [phone] documented as of this encounter Visit Diagnoses Diagnosis Moderate persistent asthma without complication Nausea Nausea alone documented in this encounter Care Teams Sports Equipment Supervisor Relationship Specialty Start Date End Date Amber Quiroz MD [address] [place] [address] 24071 PCP - General Family Medicine 07/03/18 documented as of this encounter
--- OUTSIDE RECORDS SUMMARY | 2024-09-03 20:09 | XMS_ITS | Encounter Summary ---
Author Organization [employer] Address [address] [facility] 7t [place] [address] Care Team Providers Care Supervisor Fertilizer Name Role Phone Amber Quiroz MD Primary Care Provider [phone] Reason for Visit * Reason Onset Date Comments Nurse Triage 08/21/2024 Encounter Details Date Type Department Care Team ([facility] st Contact Info) Description 08/21/2024 Telephone [facility] MEDICINE [address] [place], [place] [phone] Amber Quiroz MD [address] [place], [place] [phone] Nurse Triage Social History Tobacco Use Types [...] t he electric, gas, oil or water [employer] threatened to shut off services in your [...] encounter Miscellaneous Notes * Telephone Encounter - Cheryl Larkin RN - 08/22/2024 11:01 AM EST Pt went to [facility] ED last night. Pt to F/U PRN * Telephone Encounter - Lacy Sahni LPN - 08/21/2024 12:56 PM EST Triage call returned to patient who reports recent ED visits where they did nothing to help me . Patient seen in [facility] ED most recent on 08/17/24 note in chart. Patient reports severe pain in both flanks. Reports that she is unable to sleep is tearful and has vomited 5 times since midnight due to thepain. Is not taking any OTC analgesics due to allergies. Patient reports that she needs to see a Urologist and that she can't wait . Patient advised no sick appts available at time of call and PCP not available. Patient does not want to return to ED as she is too sick. Concerns for dehydration discussed and fluids encouraged in small amounts due to nausea. Disposition reviewed. Forwarded to PCP and team as FYI to follow up PRN Protocol Used: Flank Pain (Adult) Protocol-Based Disposition: Go to ED Now Override (Final) Disposition: Discuss with PCP and Callback by Nurse Today Override Reason: Caller refused suggested disposition Positive Triage Question: * Severe pain (e.g., excruciating, scale 8-10) and present > 1 hour * All higher-acuity triage questions were negative Care Advice Discussed: * Reasons To Call Back - You become worse * Telephone Encounter - Riccardo Danielarez - 08/21/2024 12:07 PM EST Symptom: Flank Pain Outcome: Schedule an urgent appointment (within 1 hour) or talk to a nurse or provider soon Reason: Kidney stone diagnosed in the past The caller accepted this outcome. documented in this encounter Plan of Treatment Upcoming Encounters Date Type Department Care Team (Late st Contact Info) Description 10/01/2024 11:30 AM EDT Telemedicine [facility] MEDICINE [address] [place] [phone] 11/12/2024 1:30 PM EDT Office Visit [facility] MEDICINE [address] [place] [address] 84[address] Amber Quiroz MD [address] [place] [address] [phone] documented as of this encounter Visit Diagnoses Not on filedocumented in this encounter Care Teams Supervisor Fertilizer Relationship Specialty Start Date End Date Amber Quiroz MD [address] [place] [address] [phone] PCP - General Family Medicine 07/03/18 documented as of this encounter
--- OUTSIDE RECORDS SUMMARY | 2024-09-03 20:09 | XMS_ITS | Encounter Summary ---
Author Organization [employer] Address 75 [facility] 7t [place] [address] Care Team Providers Care Creative Designer Name Role Phone Amber Quiroz MD Primary Care Provider Reason for Visit * Reason Comments Care Coordination CM/CHW outreach Encounter Details Date Type Department Care Team (Latest Contact Info) Description 08/28/2024 Patient Outreach [facility] MEDICINE [address] [place], [place] [phone] Amber Quiroz MD [address] [place], [place] [phone] Care Coordination (CM/CHW outreach) Social History Tobacco Use Types Packs/Day Years [...] AM EDT documented as of this encounter Progress Notes * Roxanne Dsouza - 08/28/2024 10:54 AM EST CHW Roxanne Dsouza, placed outbound call to patient in regards to offer Adult Complex Care Program and SDOH services. No answer at this time. CHW LVM introducing herself from [facility] CMDepartment with CHW's name, department and direct contact number requesting call back. Will re-attempt to contact within 5 days. and address not confirmed. documented in this encounter Plan of Treatment Upcoming Encounters Date Type Department Care Team (Late st Contact Info) Description 10/01/2024 11:30 AM EDT Telemedicine [facility] MEDICINE [address] [place] [phone] 11/12/2024 1:30 PM EDT Office Visit [facility] MEDICINE [address] [place] [phone] Amber Quiroz MD [address] [place] [address] [phone] documented as of this encounter Visit Diagnoses Not on filedocumented in this encounter Care Teams Creative Designer Relationship Specialty Start Date End Date Amber Quiroz MD [address] [place] [address] [phone] PCP - General Family Medicine 07/03/18 documented as of this encounter
--- OUTSIDE RECORDS SUMMARY | 2024-09-03 20:09 | XMS_ITS | Encounter Summary ---
Author Organization [employer] Address [address] [facility] 7t [place] [address] Care Team Providers Care Clinical Data Management Director Name Role Phone Amber Quiroz MD Primary Care Provider [phone] Reason for Visit * Reason Onset Date Comments Appointment Request 11/22/2023 Encounter Details Date Type Department Care Team ([facility] st Contact Info) Description 11/22/2023 Telephone [facility] MEDICINE [address] [place], [place] [phone] Amber Quiroz MD [address] [place], [place] [phone] Appointment Request Social History Tobacco Use Types [...] due tosleep difficulty. Please contact pt at [phone]. documented in this encounter Plan of Treatment Upcoming Encounters Date Type Department Care Team (Late st Contact Info) Description 10/01/2024 11:30 AM EDT Telemedicine [facility] MEDICINE [address] [place] [phone] 11/12/2024 1:30 PM EDT Office Visit [facility] MEDICINE [address] [place] [address] Amber Quiroz MD [address] [place] [address] [phone] documented as of this encounter Visit Diagnoses Not on filedocumented in this encounter Care Teams Clinical Data Management Director Relationship Specialty Start Date End Date Amber Quiroz MD [address] [place] [address] [phone] PCP - General Family Medicine 07/03/18 documented as of this encounter
--- OUTSIDE RECORDS SUMMARY | 2024-09-03 20:09 | XMS_ITS | Encounter Summary ---
Author Organization [employer] Address [address] [facility] [address] 7[address] [place] [address] Care Team Providers Care Floating Labor Gang Supervisor Name Role Phone Amber Quiroz MD Primary Care Provider [phone] Reason for Visit * Reason Onset Date Comments Care Management 08/15/2024 [facility]- chart revi ew Encounter Details Date Type Department Care Team ([facility] st Contact Info) Description 08/15/2024 Telephone [facility] [address] [place] [address] Marixa Eric, [place] [address] [place], [place] [phone] Care Management ([facility]- chart review) Social History Tobacco Use Types Packs/Day Years [...] encounter Miscellaneous Notes * Telephone Encounter - Marixa Eric RN - 08/15/2024 8:03 AM EST MARIE Eric RN, performed chart review, in anticipation of initial assessment with patient, as patient has stratified for Adult Complex Care through the ADT feed. History significant for anemia, anxiety, asthma and COPD, chronic pancreatitis, dyslipidemia, HTN, GERD, total knee arthroplasty, renal calculi, impaired fasting glucose, mood disorder, osteoarthritis of knee, panic disorder with agoraphobia, recurrent UTI, disorder of lung, lung mass, kidney stones, chronic generalized abdominal pain, atypical chest pain, arthralgia, and back pain. Specialists include [facility], Cardiology, and [facility]. ED visits within the last 12 months include [facility] ED 08/14/24, [facility] ED 07[facility]17/24, [facility] ED , [facility] ED 05/04/24, [facility] ED 04/01/24, and [facility] ED 03/20/24. Last appointmentin PCP office on 01/12/24. Patient no showed PE with PCP on 03/12/24 and no showed f/u visit on 04/01/24. No future appointments scheduled at this time. documented in this encounter Plan of Treatment Upcoming Encounters Date Type Department Care Team (Late st Contact Info) Description 10/01/2024 11:30 AM EDT Telemedicine [facility] [address] [place] [address] 11/12/2024 1:30 PM EDT Office Visit [facility] [address] [place] [address] Amber Quiroz MD [address] [place] [address] documented as of this encounter Visit Diagnoses Not on filedocumented in this encounter Care Teams Floating Labor Gang Supervisor Relationship Specialty Start Date End Date Amber Quiroz MD [address] [place] [address] PCP - General Family Medicine 07/03/18 documented as of this encounter
--- OUTSIDE RECORDS SUMMARY | 2024-09-03 20:09 | XMS_ITS | Encounter Summary ---
Author Organization [employer] Address [address] [facility] 7t [place] [address] Care Team Providers Care Accountant Cost Name Role Phone Amber Quiroz MD Primary Care Provider [phone] Reason for Visit * Reason Onset Date Comments Nurse Triage 08/26/2024 Encounter Details Date Type Department Care Team ([facility] st Contact Info) Description 08/26/2024 Telephone [facility] [address] [place], [place] [phone] Amber Quiroz MD [address] [place], [place] [phone] Nurse Triage Social History Tobacco Use Types [...] t he electric, gas, oil or water [employer] threatened to shut off services in your [...] Telephone Encounter - Cheryl Larkin RN - 08/27/2024 10:45 AM EST This is an ongoing issue. Pt has been seen at the ED multiple times for this. Telephone call placed to pt. She hasn't had follow up for multiple ED visits. Pt tearful on the phone. Reporting hematuria and severe 10/10 flank pain. Reports, I have stones deep down . Booked apptwith PCP for next week /. Pt agreeable. * Telephone Encounter - Jaimie Beckman RN - 08/26/2024 9:40 AM EST Sent to team for ER status check PRN. * Telephone Encounter - Jaimie Beckman RN - 08/26/2024 9:30 AM EST No broadcaster needed as this story writer speaks Kiswahili. Call returned to John Marquez to triage below. Pt reports having Bilat flank pain x 1-2 weeks. Reports having burning pain with passing urine. Having also bloody urine. Pt having nausea and vomiting. Pt advised of disposition, pt states wants something for pain. Pt advised that due to sx requires evaluation. Agrees to seek ER. Protocol Used: Flank Pain (Adult) Protocol-Based Disposition: Go to ED/UCC Now (or to Office with PCP Approval) Positive Triage Questions: * Blood in urine (red, pink, or tea-colored) * Vomiting * All higher-acuity triage questions were negative Care Advice Discussed: * Reasons To Call Back - Fever over 100.4 F (38.0 C) - Burning with urination or blood in urine - You become worse * Telephone Encounter - Rashmi Iyer - 08/26/2024 9:16 AM EST Symptom: Flank Pain Outcome: Schedule an urgent appointment (within 1 hour) or talk to a nurse or provider soon Reason: Kidney stone diagnosed in the past The caller accepted this outcome. [phone] tongan documented in this encounter Plan of Treatment Upcoming Encounters Date Type Department Care Team (Late st Contact Info) Description 10/01/2024 11:30 AM EDT Telemedicine [facility] [address] [place] [address] 11/12/2024 1:30 PM EDT Office Visit [facility] [address] [place] [address] Amber Quiroz MD [address] [place] [address] documented as of this encounter Visit Diagnoses Not on filedocumented in this encounter Care Teams Accountant Cost Relationship Specialty Start Date End Date Amber Quiroz MD [address] [place] [address] PCP - General Family Medicine 07/03/18 documented as of this encounter
--- OUTSIDE RECORDS SUMMARY | 2024-09-03 20:09 | XMS_ITS | Encounter Summary ---
Author Organization [employer] Address [address] [facility] 7 [place] [address] Care Team Providers Care Computer Publisher Name Role Phone Amber Quiroz MD Primary Care Provider [phone] Reason for Visit * Reason Comments Med Refill Encounter Details Date Type Department Care Team ([facility] st Contact Info) Description 11/29/2023 Refill [facility] [address] [place], [place] [phone] Charleen Latif MD 230 [place], [place] [phone] Nephrolithiasis Social History Tobacco Use Types Packs/Day [...] t he electric, gas, oil or water [employer] threatened to shut off services in your [...] Info) Description 10/01/2024 11:30 AM EDT Telemedicine [facility] [address] [place] [address] 11/12/2024 1:30 PM EDT Office Visit [facility] [address] [place] [address] Amber Quiroz MD [address] [place] [address] documented as of this encounter Visit Diagnoses Diagnosis Nephrolithiasis Calculus of kidney documented in this encounter Care Teams Computer Publisher Relationship Specialty Start Date End Date Amber Quiroz MD [address] [place] [address] PCP - General Family Medicine 07/03/18 documented as of this encounter
--- OUTSIDE RECORDS SUMMARY | 2024-09-03 20:09 | XMS_ITS | Encounter Summary ---
Author Organization [employer] Address [address] [facility] 7t [place] [address] Care Team Providers Care Food Preparation Worker Name Role Phone Amber Quiroz MD Primary Care Provider [phone] Reason for Visit * Reason Comments Med Refill Encounter Details Date Type Department Care Team ([facility] st Contact Info) Description 06/01/2023 Refill [facility] [address] [place], [place] [phone] Amber Quiroz MD 230 [place], [place] [phone] Pain Social History Tobacco Use Types Packs/Day [...] the past 12 months, has t he [employer], [facility], oil or water company threatened to shut [...] 10/01/2024 11:30 AM EDT Telemedicine [facility] [address] [place] [address] 11/12/2024 1:30 PM EDT Office Visit [facility] [address] [place] [address] Amber Quiroz MD [address] [place] [address] documented as of this encounter Visit Diagnoses Diagnosis Pain Generalized pain documented in this encounter Care Teams Food Preparation Worker Relationship Specialty Start Date End Date Amber Quiroz MD [address] [place] [address] PCP - General Family Medicine 07/03/18 documented as of this encounter
--- OUTSIDE RECORDS SUMMARY | 2024-09-03 20:09 | XMS_ITS | Encounter Summary ---
Author Organization [employer] Address [address] [facility] 7t [place] [address] Care Team Providers Care Head Of Integrated Media Name Role Phone Amber Quiroz MD Primary Care Provider [phone] Encounter Details Date Type Department Care Team ([facility] st Contact Info) Description 09/03/2024 3:00 PM EST Office Visit [facility] [address] [place], [place] [phone] Amber Quiroz MD 230 [place], [place] [phone] Loin pain hematuria syndrome (Primary Dx); Essential hypertension; Kidney stones; Nephrolithiasis; Mood disorder (CMS/HCC); Dyslipidemia; Encounter for immunization Social History Tobacco Use Types Packs/Day Years [...] AM EDT documented as of this encounter Last Filed Vital Signs Vital Sign Reading Time Taken Comments Blood Pressure 159/99 09/03/2024 3:19 PM EST Pulse 78 09/03/2024 3:19 PM EST Temperature 36.2 ??C (97.1 ??F) 09/03/2024 3:19 PM ES T Respiratory Rate 17 09/03/2024 3:19 PM EST Oxygen Saturation 99% 09/03/2024 3:19 PM EST Inhaled Oxygen Concentration - - Weight 61 kg (134 lb 6.4 oz) 09/03/2024 3:19 PM EST Height 154.9 cm (5' 1 ) 09/03/2024 3:19 PM EST Body Mass Index 25.39 09/03/2024 3:19 PM EST documented in this encounter Miscellaneous Notes * Assessment & Plan Note - Magda Patel MA - 09/03/2024 1:18 PM ESTAssociated Problem(s): Essential hypertension -Goal BP < 140/90 per JNC-8, < 130/80 per ACC/AHA guideline (Tx threshold > 140/90) -Continue Amlodipine 10 mg daily. -Continue working on lifestyle modification. -Continue checking home BP -Follow up in 2 months or sooner if any problem arises documented in this encounter Plan of Treatment Upcoming Encounters Date Type Department Care Team (Late st Contact Info) Description 10/01/2024 11:30 AM EDT Telemedicine [facility] [address] [place] [address] 11/12/2024 1:30 PM EDT Office Visit [facility] [address] [place] [address] Amber Quiroz MD [address] [place] [address] documented as of this encounter Visit Diagnoses Diagnosis Loin pain hematuria syndrome- Primary Essential hypertension Unspecified essential hypertension Kidney stones Calculus of kidney Nephrolithiasis Calculus of kidney Mood disorder (CMS/HCC) Unspecified episodic mood disorder Dyslipidemia Other and unspecified hyperlipidemia Encounter for immunization documented in this encounter Care Teams Head Of Integrated Media Relationship Specialty Start Date End Date Amber Quiroz MD [address] [place] [address] PCP - General Family Medicine 07/03/18 documented as of this encounter
--- OUTSIDE RECORDS SUMMARY | 2024-09-03 20:09 | XMS_ITS | Encounter Summary ---
Author Organization [employer] Address [address] [facility] 7t [place] [address] Care Team Providers Care Advertising Consultant Name Role Phone Amber Quiroz MD Primary Care Provider [phone] Encounter Details Date Type Department Care Team (Latest Contact Info) Description 09/03/2024 Travel Social History Tobacco Use Types Packs/Day Years [...] Info) Description 10/01/2024 11:30 AM EDT Telemedicine [address] [address] 11/12/2024 1:30 PM EDT Office Visit [facility] [address] [place] [address] Amber Quiroz MD [address] [place] [address] documented as of this encounter Visit Diagnoses Not on filedocumented in this encounter Care Teams Advertising Consultant Relationship Specialty Start Date End Date Amber Quiroz MD [address] [place] [address] PCP - General Family Medicine 07/03/18 documented as of this encounter
--- OUTSIDE RECORDS SUMMARY | 2024-09-03 20:09 | XMS_ITS | Encounter Summary ---
Author Organization [employer] Address [address] [facility] [address] 7t [place] [address] Care Team Providers Care Pathology Laboratory Aide Name Role Phone Amber Quiroz MD Primary Care Provider [phone] Encounter Details Date Type Department Care Team (Late st Contact Info) Description 12/12/2023 Orders Only [facility] 230 [place], [place] [phone] Amber Quiroz MD [address] [place], [place] [phone] Nephrolithiasis (Primary Dx) Social History Tobacco Use [...] Info) Description 10/01/2024 11:30 AM EDT Telemedicine [facility] [address] [place] [address] 11/12/2024 1:30 PM EDT Office Visit [facility] [address] [place] [address] Amber Quiroz MD [address] [place] [address] documented as of this encounter Visit Diagnoses Diagnosis Nephrolithiasis- Primary Calculus of kidney documented in this encounter Care Teams Pathology Laboratory Aide Relationship Specialty Start Date End Date Amber Quiroz MD [address] [place] [address] PCP - General Family Medicine 07/03/18 documented as of this encounter
--- OUTSIDE RECORDS SUMMARY | 2024-09-03 20:09 | XMS_ITS | Encounter Summary ---
Author Organization [employer] Address [address] [facility] [address] 7t [place] [address] Care Team Providers Care Welder Gas Automatic Name Role Phone Amber Quiroz MD Primary Care Provider [phone] Reason for Visit * Reason Onset Date Comments chart prep 08/28/2024 Encounter Details Date Type Department Care Team ([facility] st Contact Info) Description 08/28/2024 Telephone [facility] [address] [place], [place] [phone] Shellie Eric MA chart prep Social History Tobacco Use Types Packs/Day Years [...] encounter Miscellaneous Notes * Telephone Encounter - Shellie Eric MA - 08/28/2024 3:34 PM EST ..chart Prep Labs: not applicable Images: not applicable Vaccines due: Covid Due and Flu Due Referrals: Completed Screenings: Colonoscopy and Mammogram Overdue care gaps: Sbirt, PHQ-9, and rosa-7 documented in this encounter Plan of Treatment Upcoming Encounters Date Type Department Care Team (Late st Contact Info) Description 10/01/2024 11:30 AM EDT Telemedicine [facility] [address] [place] [address] 11/12/2024 1:30 PM EDT Office Visit [facility] [address] [place] [address] Amber Quiroz MD [address] [place] [address] documented as of this encounter Visit Diagnoses Not on filedocumented in this encounter Care Teams Welder Gas Automatic Relationship Specialty Start Date End Date Amber Quiroz MD [address] [place] [address] PCP - General Family Medicine 07/03/18 documented as of this encounter
--- OUTSIDE RECORDS SUMMARY | 2024-09-03 20:09 | XMS_ITS | Encounter Summary ---
Author Organization [employer] Address [address] [facility] 7t [place] [address] Care Team Providers Care Regulatory Manager Name Role Phone Amber Quiroz MD Primary Care Provider [phone] Reason for Visit * Reason Comments Care Coordination CM/CHW outreach Encounter Details Date Type Department Care Team (Latest Contact Info) Description 08/15/2024 Patient Outreach [facility] [address] [place], [place] [phone] Amber Quiroz MD 230 [place], [place] [phone] Care Coordination (CM/CHW outreach) Social History Tobacco [...] encounter Progress Notes * Roxanne Dsouza - 08/15/2024 9:42 AM EST CHW Roxanne Dsouza, placed outbound call to patient in regards to offer Adult Complex Care Program and SDOH services. No answer at this time. CHW LVM introducing herself from [facility] CMDepartment with CHW's name, department and direct contact number requesting call back. Will re-attempt to contact within 5 days. and address not confirmed. documented in this encounter Plan of Treatment Upcoming Encounters Date Type Department Care Team (Late st Contact Info) Description 10/01/2024 11:30 AM EDT Telemedicine [facility] [address] [place] [address] 11/12/2024 1:30 PM EDT Office Visit [facility] [address] [place] [address] Amber Quiroz MD [address] [place] [address] documented as of this encounter Visit Diagnoses Not on filedocumented in this encounter Care Teams Regulatory Manager Relationship Specialty Start Date End Date Amber Quiroz MD [address] [place] [address] PCP - General Family Medicine 07/03/18 documented as of this encounter
--- OUTSIDE RECORDS SUMMARY | 2024-09-03 20:09 | XMS_ITS | Encounter Summary ---
Author Organization [facility] Address [address] [facility] 7 [place] [address] Care Team Providers Care Lettuce Cutter Name Role Phone Amber Quiroz MD Primary Care Provider [phone] Reason for Visit * Reason Comments Med Refill Encounter Details Date Type Department Care Team (Late st Contact Info) Description 04/26/2023 Refill [facility] [address] [place] [address] [phone] Amber Quiroz MD [address] [place] [address] Nausea Social History Tobacco Use Types Packs/Day [...] Info) Description 10/01/2024 11:30 AM EDT Telemedicine [facility] [address] [place] [address] [phone] 11/12/2024 1:30 PM EDT Office Visit [facility] [address] [place] [address] Amber Quiroz MD [address] [place] [address] [phone] documented as of this encounter Visit Diagnoses Diagnosis Nausea Nausea alone documented in this encounter Care Teams Lettuce Cutter Relationship Specialty Start Date End Date Amber Quiroz MD 230 [place] [address] PCP - General Family Medicine 07/03/18 documented as of this encounter
--- OUTSIDE RECORDS SUMMARY | 2024-09-03 20:09 | XMS_ITS | Encounter Summary ---
Author Organization [facility] Address [address] [facility] 7t [place] [address] Care Team Providers Care Bar Staff Name Role Phone Amber Quiroz MD Primary Care Provider [phone] Encounter Details Date Type Department Care Team (Late st Contact Info) Description 07/28/2022 Orders Only [facility]INE [address] [place] [phone] Anabell Martinez LPN Social History Tobacco Use [...] Info) Description 10/01/2024 11:30 AM EDT Telemedicine [address] [address] 11/12/2024 1:30 PM EDT Office Visit [address] [phone] Amber Quiroz MD [address] [place] [phone] documented as of this encounter Procedures Procedure [...] (08/02/2022 12:29 AM EST) Color Urine Yellow [facility] Appearance Urine Turbid [facility] PH 6.5 5.0 - 9.0 [facility] Glucose Urine UA Negative Negative mg/dL [facility] Urine Blood Trace(A) Negative [facility] Specific Combs - Urine 1.020 1.005 - 1.025 [facility] Urine Protein 30 (1+)(A) Neg-Trace mg/dL [facility] Urine Ketones Negative Negative mg/dL [facility] Nitrite Urine Negative Negative [facility] Leukocyte Esterase Urine Large (3+)(A) Negative [facility] RBC Urine 0-2 0 - 2 /HPF [facility] Urine WBC >50(A) 0 - 5 /HPF [facility] Urine Squamous Epithelial Cell 6-10 0 - 2 /HPF [facility] Urine Bacteria 1+ None Seen [facility] Hyaline Casts, Urine 3-5 0 - 2 /LPF [facility] 08/02/2022 12:2 9 AM EST 08/02/2022 12:31 AM EST Narrative [facility] - 08/02/2022 12:50 AM EST Urine, Clean Catch [facility] External Provider LAB URI NE ORDERABLES Final Result [facility] [address] [place] [address] [phone] * SARS-CoV-2 RNA, Influenza A/B, and RSV RNA, Ql NAAT (08/02/2022 12:17 AM EST) Influenza A PCR NEGATIVE Negative [facility] Influenza B PCR NEGATIVE Negative [facility] Resp Syncy Virus RNA Qual PCR NEGATIVE Negative [facility] SARS COV2 PCR NEGATIVE Negative [facility] SARS/Flu/RSV Note See Note [facility] Comment:All test results mus t be [...] use by authorized laboratories.Testing performed on the [employer] GeneXpert utilizingreal-time RT-PCR.All SARS CoV2 and positive influenza A/B results arereported to [facility]. 08/02/2022 12:1 7 AM EST 08/02/2022 12:19 AM EST [facility] Exter nal Provider LAB MICROBIOLOGY - GENERAL ORDERABLES Final Result [facility] [address] [place] [phone] * (ABNORMAL) Basic Metabolic Panel (08/02/2022 12:17 AM EST) Sodium 140 135 - 145 mmol/L [facility] Potassium 3.9 3.3 - 5.1 mmol/L [facility] Chloride 105 96 - 108 mmol/L [facility] Carbon Dioxide 24 22 - 29 mmol/L [facility] Anion Gap 15 12 - 20 [facility] Urea Nitrogen (BUN) 14 9 - 16 mg/dL [facility] Creatinine, Serum 0.75 0.5 - 1.4 mg/dL [facility] Creatinine Clr Calc Pharmacy 71.4 [facility] Comment:Provided height and weight: 162.56 cm,63.503 kg.eGFR (calculated from the MDRD study equation) and eCrCl(calculated from the Cockcroft-Gault equation) are based ondifferent parameters and may not yield comparable results.If eCrCl result is absurd, please check patient'sheight/weight. Estimated Glomerular Filt Rate >60 [facility] Comment:NOTE: For -Am erican individuals, multiply the result by 1.210.Chronic Kidney Disease: Estimated GFR < 60 mL/min/1.73c2Vqxkmb Kidney Disease: Estimated GFR < 15 mL/min/1.73m2 Glucose 119(H) 60 - 115 mg/dL [facility] Calcium 9.0 8.4 - 10.2 mg/dL [facility] 08/02/2022 12:1 7 AM EST 08/02/2022 12:19 AM EST [facility] External Provider LAB BLO OD ORDERABLES Final Result [facility] [address] [place] [phone] * (ABNORMAL) CBC auto differential (08/02/2022 12:17 AM EST) White Blood Count 6.4 4.8 - 10.8 X10*3/uL [facility] Red Blood Count 3.96(L) 4.20 - 5.50 X10*6/uL [facility] Hemoglobin 10.8(L) 12.0 - 16.0 g/dl [facility] Hematocrit 33.0(L) 37.0 - 47.0 % [facility] Mean Corpuscular Volume 83.3 80.0 - 98.0 fL [facility] Mean Corpuscular Hemoglobin 27.3 27.0 - 33.0 pg [facility] Mean Corpuscular HGB Conc 32.7 31.0 - 35.0 g/dl [facility] Red Cell Distribution Width 14.2 11.0 - 16.0 % [facility] Platelet Count 202 160 - 400 X10*3/uL [facility] Mean Platelet Volume 9.2(L) 9.4 - 12.3 fL [facility] Neutrophils Percent Auto 68.5 45 - 73 % [facility] Imm Gran Pct Auto 0.2 0.0 - 0.4 % [facility] Lymphocytes Percent Auto 21.9 20 - 40 % [facility] Monocytes Percent Auto 8.6 2 - 11 % [facility] Eosinophils Percent Auto 0.5 0 - 4 % [facility] Basophils Percent Auto 0.3 0 - 2 % [facility] NRBC Pct Auto 0.0 0.0 - 0.2 /100WBC [facility] Neutrophils Absolute Auto 4.4 2.0 - 8.3 x10*3/uL [facility] Imm Gran Abs Auto 0.01 0.00 - 0.03 X10*3/uL [facility] Lymphocytes Absolute Auto 1.4 1.2 - 4.9 X10*3/uL [facility] Monocytes Absolute Auto 0.6 0.1 - 1.2 X10*3/uL [facility] Eosinophils Absolute Auto 0.0 0.0 - 0.4 X10*3/uL [facility] Basophils Absolute Auto 0.0 0.0 - 0.2 X10*3/uL [facility] NRBC Abs Auto 0.000 0.0 - 0.012 X10*3/uL [facility] 08/02/2022 12:1 7 AM EST 08/02/2022 12:19 AM EST [facility] External Provider LAB BLO OD ORDERABLES Final Result [facility] [address] [place] [phone] * Culture, Urine, Routine (08/02/2022 12:00 AM EST) 08/02/2022 08/02/2022 7:3 1 AM EST Comment:UACC Narrative [facility] - 08/03/2022 9:19 AM EST Urine Culture No growth. Specimen Source: Urine clean catch [facility] Exter nal Provider LAB MICROBIOLOGY - GENERAL ORDERABLES Final Result Performing Organization Address City/State/[facility] Co de Phone Number [facility] [address] [place] [phone] documented in this encounter Visit Diagnoses Not on filedocumented in this encounter Care Teams Bar Staff Relationship Specialty Start Date End Date Amber Quiroz MD [address] [place] [phone] PCP - General Family Medicine 07/03/18 documented as of this encounter
--- OUTSIDE RECORDS SUMMARY | 2024-09-03 20:09 | XMS_ITS | Encounter Summary ---
Author Organization [employer] Address [address] 7t [place] [address] Care Team Providers Care Manager Women Name Role Phone Amber Quiroz MD Primary Care Provider Encounter Details Date Type Department Care Team ([facility] st Contact Info) Description 11/24/2023 Telephone [facility] [address] [place], [place] [phone] Amber Quiroz MD [address] [place], [place] [phone] Social History Tobacco Use Types Packs/Day Years [...] Info) Description 10/01/2024 11:30 AM EDT Telemedicine [facility] [address] [place] [address] 11/12/2024 1:30 PM EDT Office Visit [address] [address] Amber Quiroz MD [address] [place] [phone] documented as of this encounter Visit Diagnoses Not on filedocumented in this encounter Care Teams Manager Women Relationship Specialty Start Date End Date Amber Quiroz MD [address] [place] [phone] PCP - General Family Medicine 07/03/18 documented as of this encounter
--- OUTSIDE RECORDS SUMMARY | 2024-09-03 20:09 | XMS_ITS | Encounter Summary ---
Author Organization [employer] Address [address] [facility] 7t [place] [address] Care Team Providers Care Hogshead Dumper Name Role Phone Amber Quiroz MD Primary Care Provider [phone] Reason for Visit * Reason Onset Date Comments Nurse Triage 01/11/2024 Encounter Details Date Type Department Care Team ([facility] st Contact Info) Description 01/11/2024 Telephone [facility] [address] [place], [place] [phone] Amber Quiroz MD 230 [place], [place] [phone] Nurse Triage Social History Tobacco Use Types [...] t he electric, gas, oil or water [employer] threatened to shut off services in your [...] HDF appt tomorrow at 1030am with García PICKLE PROCESSOR. RX updated with pending HDF. Team tasked that if medication available from PCP for [facility]. * Telephone Encounter - Lacy Sahni LPN - 01/11/2024 3:31 PM EDT Triage in process. Patient requesting pain medication for kidney stone pain in [facility] 01/07/24-01/08/24. Patient not seeing any stones passing. [...] worse Override Notes: Seen and treated at [facility] known kidney stones wants something for pain [...] Info) Description 10/01/2024 11:30 AM EDT Telemedicine [facility] [address] [place] [phone] 11/12/2024 1:30 PM EDT Office Visit [facility] [address] [place] [phone] Amber Quiroz MD [address] [place] [address] documented as of this encounter Visit Diagnoses Not on filedocumented in this encounter Care Teams Hogshead Dumper Relationship Specialty Start Date End Date Amber Quiroz MD [address] [place] [phone] PCP - General Family Medicine 07/03/18 documented as of this encounter
--- OUTSIDE RECORDS SUMMARY | 2024-09-03 20:09 | XMS_ITS | Encounter Summary ---
Author Organization [employer] [facility] Address [address] [facility] 7t [place] [address] Care Team Providers Care Quality Assurance Clerk Name Role Phone Amber Quiroz MD Primary Care Provider [phone] Encounter Details Date Type Department Care Team (Late st Contact Info) Description 11/16/[address] [facility] MEDICINE [address] [place] [address] [phone] Amber Quiroz MD [address] [place] [address] [phone] Social History Tobacco Use Types Packs/Day Years [...] 11:30 AM EDT Telemedicine [facility]INE [address] [place] [address] [phone] 11/12/2024 1:30 PM EDT Office Visit [facility] [address] [place] [address] [phone] Amber Qiuroz MD [address] [place] [address] [phone] documented as of this encounter Visit Diagnoses Not on filedocumented in this encounter Care Teams Quality Assurance Clerk Relationship Specialty Start Date End Date Amber Quiroz MD [address] [place] [address] PCP - General Family Medicine 07/03/18 documented as of this encounter
--- OUTSIDE RECORDS SUMMARY | 2024-09-03 20:09 | XMS_ITS | Encounter Summary ---
Author Organization [employer] Address [address] [facility] 7t [place] [address] Care Team Providers Care Prefitter Doors Name Role Phone Amber Quiroz MD Primary Care Provider [phone] Reason for Visit * Reason Onset Date Comments Appointment Request 09/03/2024 Encounter Details Date Type Department Care Team ([facility] st Contact Info) Description 09/03/2024 Telephone [facility] MEDICINE [address] [place], [place] [phone] Amber Quiorz MD 230 [place], [place] [phone] Appointment Request Social History Tobacco Use Types [...] t he electric, gas, oil or water [employer] threatened to shut off services in your [...] encounter Miscellaneous Notes * Telephone Encounter - Sofía Samayoa - 09/03/2024 4:21 PM EST Called Patient, left vm advised to call back and make 2 f/u appointments: Nabor RAYA visit 2-3 weeks for BP check 30 min 10 weeks f/u with PCP 15 min for for RV HTN / kidney stone Ok to schedule if Patient calls back. documented in this encounter Plan of Treatment Upcoming Encounters Date Type Department Care Team (Late st Contact Info) Description 10/01/2024 11:30 AM EDT Telemedicine [facility] MEDICINE [address] [place] [address] 11/12/2024 1:30 PM EDT Office Visit [facility] [address] [place] [phone] Amber Quiroz MD [address] [place] [phone] documented as of this encounter Visit Diagnoses Not on filedocumented in this encounter Care Teams Prefitter Doors Relationship Specialty Start Date End Date Amber Quiroz MD [address] [place] [phone] PCP - General Family Medicine 07/03/18 documented as of this encounter
--- OUTSIDE RECORDS SUMMARY | 2024-09-03 20:09 | XMS_ITS | Encounter Summary ---
Author Organization [employer] Address [address] [facility] [address] [place] [address] Care Team Providers Care Chemist Organic Name Role Phone Amber Quiroz MD Primary Care Provider [phone] Reason for Visit * Reason Comments Med Refill Encounter Details Date Type Department Care Team ([facility] st Contact Info) Description 08/25/2024 Refill [facility] [address] [place], [place] [phone] Amber Quiroz MD 230 [place], [place] [phone] Pain Social History Tobacco Use Types Packs/Day [...] t he electric, gas, oil or water [employer] threatened to shut off services in your [...] Info) Description 10/01/2024 11:30 AM EDT Telemedicine [facility] MED[facility] [address] [place] [phone] 11/12/2024 1:30 PM EDT Office Visit [facility] [address] [place] [phone] Amber Quiroz MD [address] [place] [address] documented as of this encounter Visit Diagnoses Diagnosis Pain Generalized pain documented in this encounter Care Teams Chemist Organic Relationship Specialty Start Date End Date Amber Quiroz MD [address] [place] [phone] PCP - General Family Medicine 07/03/18 documented as of this encounter
--- OUTSIDE RECORDS SUMMARY | 2024-09-03 20:10 | XMS_ITS | Encounter Summary ---
Author Organization [employer] Address [address] [facility] 7t [place] [address] Care Team Providers Care Disability Insurance Hearing Officer Name Role Phone Amber Quiroz MD Primary Care Provider [phone] Reason for Visit * Reason Onset Date Comments Med Refill 06/21/2024 Encounter Details Date Type Department Care Team ([facility] st Contact Info) Description 06/21/2024 Telephone [facility] [address] [place], [place] [phone] Amber Quiroz MD [address] [place], [place] [phone] Med Refill Social History Tobacco Use Types [...] extra strength with no relief. Please advise. WOOD LAST MAKER checked 06/21/24. Last refill of Oxycodone 5mg 11/30/23 qty 12. * Telephone Encounter - Gemma Oliveira - 06/21/2024 10:12 AM EST TC from pt requesting medication refill. Medications needing refill : oxyCODONE (Oxy-IR) 5 MG immediate release capsule To be sent to: [facility] - [place], [place] - [address] documented in this encounter Plan of Treatment Upcoming Encounters Date Type Department Care Team ([facility] st Contact Info) Description 10/01/2024 11:30 AM EDT Telemedicine [facility] [address] [place] [address] 11/12/2024 1:30 PM EDT Office Visit [facility] [address] [place] [address] [phone] Amber Quiroz MD [address] [place], [place] [phone] documented as of this encounter Visit Diagnoses Not on filedocumented in this encounter Care Teams Disability Insurance Hearing Officer Relationship Specialty Start Date End Date Amber Quiroz MD [address] [place], [place] [phone] PCP - General Family Medicine 07/03/18 documented as of this encounter
--- OUTSIDE RECORDS SUMMARY | 2024-09-03 20:10 | XMS_ITS | Clinical Summary ---
Author Organization [employer] Address [address] [facility] [address] [place] [address] Care Team Providers Care Pharmacy Technician Infusion Name Role Phone Amber Quiroz MD Primary Care Provider [phone] Allergies Active Allergy Reactions Criticality Noted Date Comments Acetaminophen 04/24/2023 Aspirin Rash Low 03/02/2023 Haloperidol 04/24/2023 Ibuprofen Rash Low 04/22/2013 Iodinated Contrast Media Hives 03/02/2023 Iodine Rash Low 03/02/2023 Ketorolac Tromethamine Other 03/02/2023 Increased heart rate Metoclopramide 04/24/2023 Nicotine Rash Low 03/02/2023 Nicotine patch Medications FLUoxetine (PROzac) 20 MG capsule TOME ELIZABETH C PSULAS POR V A ORAL TODOS LOS D EN LA [place] RICKY 023 Active gabapentin (Neurontin) 100 MG capsule TOME BELINDA C PSULA TODOS LOS D EN LA [place] RICKY 023 Active gabapentin (Neurontin) 400 MG capsule TOME BELINDA C PSULA TODOS LOS D AL ACOSTARSE 023 Active clonazePAM (KlonoPIN) 0.5 MG tablet TAKE 1 TABLET BY MOUTH TWICE A DAY NEEDED FOR SEVERE ANXIETY 023 Active mirtazapine (Remeron) 30 MG tablet TOME BELINDA TABLETA TODOS LOS D AL ACOSTARSE 023 Active prazosin (Minipress) 1 MG capsule TOME BELINDA C PSULA TODOS LOS D AL ACOSTARSE 10/08/2 023 Active QUEtiapine (SEROquel) 100 MG tablet TOME BELINDA TABLETA TODOS LOS D AL ACOSTARSE Active topiramate (Topamax) 25 MG tablet TOME BELINDA TABLETA DOS VECES AL D A Active zolpidem (Ambien) 10 MG tablet TOME BELINDA TABLETA TODOS LOS D AL ACOSTARSE CUANDO SEA NECESARIO FOR INSOMNIA Active lisinopril 10 MG tabletIndications :Essential hypertension TAKE 1 TABLET BY MOUTH EVERY DAY IN THE MORNING 90 tablet Active Fluticasone-Salme terol (Advair Diskus) 500-50 MCG/ACT aerosol powder Inhale 1 puff 2 times daily. 60 each 5 Active loratadine (Claritin) 10 MG tabletIndications :Allergic rhinitis, unspecified seasonality, unspecified trigger Take 1 tablet (10 mg) by mouth Once per day. 90 tablet 3 Active melatonin 5 MG tablet Take 2 tablets by mouth at bedtime. Active naloxone (Narcan) 4 mg/0.1 mL nasal spray PLEASE SEE ATTACHED FOR DETAILED DIRECTIONS Active cefpodoxime (Vantin) 100 MG tablet TOME BELINDA TABLETA CADA 12 HORAS POR 5 D Active ondansetron ODT (Zofran-ODT) 4 MG disintegrating tablet TOME BELINDA TABLETA POR V A ORAL CADA OCHO HORAS CUANDO SEA NECESARIO FOR NAUSEA Active oxyCODONE (Oxy-IR) 5 MG immediate release capsule TAKE 1 CAPSULE BY MOUTH EVERY 8 HOURS NEEDED FOR PAIN Active potassium chloride ER (Micro-K) 10 MEQ ER capsule TOME BELINDA C PSULA TODOS LOS D POR 7 D Active albuterol (Ventolin HFA) 108 (90 Base) MCG/ACT inhalerIndication s:Moderate persistent asthma without complication INHALE 2 PUFFS BY MOUTH EVERY 4 TO 6 HOURS NEEDED DIFFICULTY BREATHING NO MORE THAN FOUR TIMES DAILY 18 g Active ondansetron (Zofran) 4 MG tabletIndications :Nausea TAKE 1 TABLET BY MOUTH EVERY 8 HOURS NEEDED FOR NAUSEA AND VOMITING 30 tablet 1 025 Active acetaminophen (Tylenol 8 Hour) 650 MG ER tabletIndications :Pain TAKE 1 TABLET BY MOUTH EVERY 8 HOURS NEEDED FOR PAIN OR FEVER 60 tablet 1 025 Active amLODIPine (Norvasc) 10 MG tablet TAKE 1 TABLET BY MOUTH EVERY DAY 90 tablet 1 025 Active atorvastatin (Lipitor) 10 MG tablet TAKE 1 TABLET BY MOUTH EVERY DAY 90 tablet 1 025 Active traMADol (Ultram) 50 MG tabletIndications :Nephrolithiasis Take 1 tablet (50 mg) by mouth every 8 (eight) hours if needed for severe pain. 15 tablet 025 Active amLODIPine (Norvasc) 10 MG tablet TAKE 1 TABLET BY MOUTH EVERY DAY 90 tablet 1 024 2024 Discontinued atorvastatin (Lipitor) 10 MG tablet TAKE 1 TABLET BY MOUTH EVERY DAY 90 tablet 1 024 2024 Discontinued traMADol (Ultram) 50 MG tablet TOME 1 TABLETA POR V A ORAL CADA 12 HORAS 024 2024 Discontinued(R eorder (will not trigger notification to Pharmacy)) ondansetron (Zofran) 4 MG tabletIndications :Nausea TAKE 1 TABLET BY MOUTH EVERY 8 HOURS NEEDED FOR NAUSEA AND VOMITING 30 tablet 1 024 2024 Discontinued acetaminophen (Tylenol 8 Hour) 650 MG ER tabletIndications :Pain TAKE 1 TABLET BY MOUTH EVERY 8 HOURS NEEDED FOR PAIN OR FEVER 60 tablet 1 024 2024 Discontinued Active Problems Patient Care Coordination No te Formatting of this note migh t be different from the original. 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 Atypical chest pain 04/01/2024 Arthralgia of hip 04/01/2024 Back pain 04/01/2024 Hyperlipidemia 04/01/2024 Moderate persistent asthma without complication 11/30/2023 Allergic rhinitis 11/30/2023 Nausea 11/30/2023 Assessment & Plan (11/30/2023 8:32 AM EDT): Continue Zofran prn Nephrolithiasis 07/27/2023 Loin pain hematuria syndrome 05/04/202308/2022 Anxiety 03/22/2023 CP (chronic pancreatitis) 03/22/2023 Delivery by elective section 03/22/2023 H/O tubal ligation 03/22/2023 Cobalamin deficiency 11/07/2018 History of total knee arthroplasty 03/19/2018 Dyslipidemia 07/13/2016 Osteoarthritis of knee 07/13/2016 Essential hypertension 09/16/2015 Assessment & Plan (09/03/2024 1:18 PM EST): -Goal BP < 140/90 per JNC-8, < 130/80 per ACC/AHA guideline (Tx threshold > 140/90) -Continue Amlodipine 10 mg daily. -Continue working on lifestyle modification. -Continue checking home BP -Follow up in 2 months or sooner if any problem arises Assessment & Plan (11/30/2023 8:30 AM EDT): [...] Encounters Date Type Department Care Team Description 09/03/2024 3:00 PM EST Office Visit [address] [phone] Amber Quiroz MD Loin pain hematuria syndrome (Primary Dx); Essential hypertension; Kidney stones; Nephrolithiasis; Mood disorder ([facility]/HCC); Dyslipidemia; Encounter for immunization 09/03/[address] [facility] [address] [place] [phone] Amber Quiroz MD Appointment Request 09/03/2024 Travel 08/29/[address] [facility] [address] [place] [phone] Amber Quiroz MD 08/28/[address] [facility] [address] [place] [phone] Shellie Eric MA chart prep 08/28/2024 Patient Outreach [address] [address] Amber Quiroz MD Care Coordination (CM/CHW outreach) 08/26/[address] [facility] [address] [place] [phone] Amber Quiroz MD Nurse Triage 08/25/2024 Refill [facility] [address] [place], [place] [phone] Amber Quiroz MD Pain 08/21/[address] [facility] [address] [place] [phone] Amber Quiroz MD Nurse Triage 08/15/[address] [facility] [address] [place] [phone] Amber Quiroz MD Care Coordination (CM/CHW outreach) 08/15/[address] [facility] [address] [place] [phone] Marixa Eric RN Care Management (C3CM- chart review) 08/15/[address] [facility] [address] [place] [address] [phone] Amber Quiroz MD Nausea 08/14/2024 Orders Only GENERIC EXTERNAL DATA DEPARTMENT Provider, Generic External Data 07/16/[address] [facility] [address] [place] [phone] Amber Quiroz MD Nurse Triage 07/15/2024 Orders Only GENERIC EXTERNAL DATA DEPARTMENT Provider, Generic External Data 06/21/[address] [facility] [address] [place] [address] Amber Quiroz MD Med Refill 06/21/[address] [facility] [address] [place] [address] Amber Quiroz MD ER Follow-up 06/20/[address] [facility] [address] [place], [place] [phone] Amber Quiroz MD Pain 06/07/[address] [facility] [address] [place] [address] Amber Quiroz MD Nausea; Moderate persistent asthma without complication from Last 3 Months Immunizations Name Administration Dates Next Due DTaP 11/05/2012 Hep B, adult 11/29/2023,04/18/2023,03/22/2023 Influenza Injectable Quadriv alant Preservative Free IIV4 MDCK 07/17/2018 Influenza injectable quadriv alent preservative free 03/22/2023,04/02/2021,06/29/2020,03/07,04/29/2017,04/28/2017,07/13/2016 Influenza, IIV3, injectable 04/21/2014, 8 Influenza, Injectable, MDCK, preservative free 06/02/2015 Influenza, Split (incl. archana fied surface antigen) 07/25/2013 Influenza, seasonal, injecta ble, preservative free 09/03/2024 Moderna Covid-19 Vaccine 12+ 08/10/2021 Pfizer Covid-19 Vaccine 12+ 02/19/2021, 1 Pneumococcal Conjugate PCV 13 04/29/2017 Pneumococcal Conjugate PCV 20 09/03/2024 Pneumococcal Polysaccharide PPSV23 09/14/2015,,08/15/2012 Pneumococcal, Unspecified 08/15/2012 [...] Mass Index 25.39 09/03/2024 3:19 PM EST Plan of Treatment Upcoming Encounters Date Type Department Care Team (Late st Contact Info) Description 10/01/2024 11:[address] [facility] [address] [place] [address] [phone] 11/12/2024 1:30 PM EDT Office Visit [facility] [address] [place] [address] [phone] Amber Quiroz MD [address] [place], [place] [phone] Health Maintenance Due Date Last Done Comments CT Colonography 1965 Depression Screening 1965 FIT DNA/Cologuard 1965 FIT 1965 FOBT 1965 HIV Screening 1965 Sigmoidoscopy 1965 Hepatitis C Screening 1982 Mammogram 2004 Colonoscopy 07/31/2021 Colorectal Cancer Screening 07/31/2021 Colposcopy 07/31/2021 Zoster Vaccines (2 of 2) 05/29/2023 04/03/2023 COVID-19 Vaccine ( season) 2024 08/10/2021, 02/19/2021, 01/29/2021 Pap Smear 07/30/2024 07/30/2021 SDOH Screening 02/26/2025 02/27/2024 Alcohol/Substance Use Screening 09/03/2025 09/03/2024 Tobacco Screening 09/03/2025 09/03/2024 Cervical Cancer Screening 07/30/2026 HPV/Cotest 07/30/2026 07/30/2021, 01/28/2019 DTaP/Tdap/Td Vaccines (5 - Td or Tdap) 03/15/2029 03/15/2019, 12/21/2012, 11/05/2012, Additional history exists Lipid Panel 09/03/2029 09/03/2024 RSV Patients and Patients Aged 60 years or older (1 - 1-dose 75+ series) 11/20/2039 Hepatitis B Vaccines Completed 11/29/2023, 04/18/2023, 03/22/2023 Influenza Vaccine Completed 09/03/2024, , 04/02/2021, Additional history exists Pneumococcal Vaccine: 50+ Years Completed 09/03/2024, 04/29/2017, 09/14/2015, Additional history exists HIB Vaccines Aged Out No longer eligi [...] Procedure Name Priority Date/Time Associated Diagnosis Comments VITAMIN B12/FOLATE, SERUM PANEL Routine 09/03/2024 4:26 PM EST Iron deficiency anemia, unspecified iron deficiency anemia type IRON AND TOTAL IRON BINDING CAPACITY Routine 09/03/2024 4:26 PM EST Iron deficiency anemia, unspecified iron deficiency anemia type FERRITIN Routine 09/03/2024 4:26 PM EST Iron deficiency anemia, unspecified iron deficiency anemia type CBC WITH AUTO DIFFERENTIAL Routine 09/03/2024 4:26 PM EST Iron deficiency anemia, unspecified iron deficiency anemia type LIPID PANEL WITH REFLEX TO DIRECT LDL Routine 09/03/2024 4:26 PM EST Dyslipidemia COMPREHENSIVE METABOLIC PANEL Routine 09/03/2024 4:26 PM EST Essential hypertension HEMOGLOBIN A1C Routine 09/03/2024 4:26 PM EST Dyslipidemia TSH W/REFLEX TO FT4 Routine 09/03/2024 4 :26 PM EST Essential hypertension URINALYSIS WITH REFLEX MICROSCOPIC Routine 08/14/2024 11:[address] ABDOMEN PELVIS WO CONTRAST Routine 08/14/2024 [...] Recently Relevant to Health Maintenance Results * Vitamin B12/Folate, Serum Panel (09/03/2024 4:26 PM EST) Vitamin B12 247 200 - 900 pg/mL [facility] Comment:NORMAL 200-900 PG/ML INDETERMINATE 160-199 PG/ML DEFICIENT < 160 PG/ML Folate 9.9 > or = 4.0 ng/mL [facility] Comment:Reference Values:> o r = 4.0 ng/mL< 4.0 ng/mL suggests folate deficiency Methotrexate, aminopterin and folinic acid(leucovorin) are chemotherapeutic agents whose molecularstructures are similar to folate; therefore, the Architectfolate assay cannot be used for patients using these drugs. 09/03/2024 4:26 PM EST 09/03/2024 6:14 PM EST us Amber Quiroz MD LAB BLOOD ORDERABLES Final Resul t [facility] [address] [place] [phone] * TSH with Reflex to Free T4 (09/03/2024 4:26 PM EST) TSH reflex Free T4 1.08 0.32 - 4.0 uIU/mL [facility] Blood 09/03/2024 4:26 PM EST 09/03/2024 6:14 PM EST Amber Quiroz MD LAB BLOOD ORDERABLES Final Resul t Performing Organization Address [facility] Co de Phone Number [facility] [address] [place] [phone] * (ABNORMAL) Lipid Panel with Reflex to Direct LDL (09/03/2024 4:26 PM EST) Triglycerides 112 <150 mg/dL [facility] Comment:Desirable Triglyceri de: less than 150 mg/dLBorderline High Triglyceride 150-199 mg/dLHigh Triglyceride: 200-499 mg/dLVery High Triglyceride: greater than or equal to 5OO mg/dL Cholesterol 183 <200 mg/dL [facility] Comment:Desirable Cholestero l: less than 200 mg/dLBorderline High Cholesterol: 200-239 mg/dLHigh Cholesterol: greater than 239 mg/dL LDL Cholesterol Calculated 112(H) <100 mg/dL [facility] Comment:Desirable LDL: less than 100 mg/dLNear Optimal/Above Optimal LDL: 110- 129 mg/dLBorderline High LDL: 130-159 mg/dLHigh LDL: 160-189 mg/dLVery High LDL: greater than or equal to 190 mg/dL HDL Cholesterol 49 >40 mg/dL [facility] Comment:Desirable HDL: great er than 40 mg/dL Note: This HDL assay may give artificially low results in patients with liver disease. Blood 09/03/2024 4:26 PM EST 09/03/2024 6:14 PM EST Amber Quiroz MD LAB BLOOD ORDERABLES Final Resul t Performing Organization Address [facility]/ZIP Co de Phone Number [facility] [address] [place] [phone] * Iron And Total Iron Binding Capacity (09/03/2024 4:26 PM EST) Iron 69 30 - 160 mcg/dL [facility] Comment:Slight Hemolysis.Int erpret result with caution. Total Iron Binding Capacity 250 228 - 428 mcg/dL [facility] Percent Iron Saturation 28 15 - 50 % [facility] Unsaturated Iron Binding 181 ug/dL [facility] Blood Venous blood specimen / Unknown 09/03/2024 4:26 PM EST 09/03/2024 6:14 PM EST Amber Quiroz MD LAB BLOOD ORDERABLES Final Resul t Performing Organization Address [facility]/ZIP Co de Phone Number [facility] [address] [place] [phone] * Hemoglobin A1c (09/03/2024 4:26 PM EST) Hemoglobin A1c 5.6 <6.0 % [facility] Comment:Hemoglobin A1C Refer ence Range Adults: 4.8 - 6.0 % Non diabetic: < 6.0 % Goal: < 7.0 %Additional Action Suggested: > 8.0 %Note: Hemoglobin A1c results are invalid for patients with abnormal amounts of HbF. Blood transfusions may impact the HbA1c concentration in the patient sample. Estimated Average Glucose 114 mg/dL [facility] Comment:eAG = Estimated ave rage glucose which is %A1C expressed asaverage glucose, using the formula of the [id number] Glucose study (ADAG), Diabetes Care, Vol.31,#8,Jan. 2007 Blood Venous blood specimen / Unknown 09/03/2024 4:26 PM EST 09/03/2024 6:14 PM EST Amber Quiroz MD LAB BLOOD ORDERABLES Final Resul t Performing Organization Address [facility]/ZIP Co de Phone Number [facility] [address] [place] [phone] * Ferritin (09/03/2024 4:26 PM EST) Ferritin 51 10 - 250 ng/mL [facility] Blood Venous blood specimen / Unknown 09/03/2024 4:26 PM EST 09/03/2024 6:14 PM EST us Amber Quiroz MD LAB BLOOD ORDERABLES Final Resul t [facility] [address] [place] [address] [phone] * (ABNORMAL) Comprehensive Metabolic Panel (09/03/2024 4:26 PM EST) Sodium 143 135 - 145 mmol/L [facility] Potassium 3.9 3.3 - 5.1 mmol/L [facility] Comment:Slight Hemolysis.Int erpret result with caution. Chloride 111(H) 96 - 108 mmol/L [facility] Carbon Dioxide 23 22 - 29 mmol/L [facility] Anion Gap 13 12 - 20 [facility] Urea Nitrogen (BUN) 15 9 - 16 mg/dL [facility] Creatinine, Serum 0.66 0.5 - 1.4 mg/dL [facility] Estimated Glomerular Filt Rate >60 [facility] Comment:Chronic Kidney Disea se: Estimated GFR < 60 mL/min/1.01j5Apufwy Kidney Disease: Estimated GFR < 15 mL/min/1.73m2 Glucose 91 60 - 115 mg/dL [facility] Calcium 8.6 8.4 - 10.2 mg/dL [facility] Bilirubin, Total 0.4 0.0 - 1.0 mg/dL [facility] Aspartate Amino Transferase 28 5 - 31 U/L [facility] Comment:Slight Hemolysis.Int erpret result with caution. Alanine Aminotransferase 11 0 - 31 U/L [facility] Total Protein 8.0 6.5 - 8.0 g/dL [facility] Albumin Level 4.4 3.5 - 5.0 g/dL [facility] Alkaline Phosphatase 87 39 - 117 U/L [facility] Blood Venous blood specimen / Unknown 09/03/2024 4:26 PM EST 09/03/2024 6:14 PM EST us Amber Quiroz MD LAB BLOOD ORDERABLES Final Resul t Performing Organization Address [facility] Co de Phone Number [facility] [address] [place] [phone] * Urinalysis w/reflex microscopic (08/14/2024 11:57 AM EST) Color Urine Yellow [facility] Appearance Urine Clear [facility] PH 7.0 5.0 - 9.0 [facility] Glucose Urine UA Negative Negative mg/dL [facility] Urine Blood Negative Negative [facility] Specific [place] - Urine 1.015 1.005 - 1.025 [facility] Urine Protein Negative Neg-Trace mg/dL [facility] Urine Ketones Negative Negative mg/dL [facility] Nitrite Urine Negative Negative [facility] Leukocyte Esterase Urine Negative Negative [facility] 08/14/2024 11:5 7 AM EST 08/14/2024 12:00 PM EST Narrative [facility] - 08/14/2024 12:07 PM EST Urine, Clean Catch us Generic External Data Provider LAB URINE ORDERAB LES Final Result Performing Organization Address [facility] Co de Phone Number [facility] [address] [place] [phone] * CT Abdomen Pelvis w/o Contrast (08/14/2024 10:31 AM EST) Only the most recent of2 resultswithin the time period is included. Anatomical Region Laterality Modality Body, Pelvis, Abdomen Computed T omography 08/14/2024 10:3 1 AM EST Narrative 08/14/2024 11:34 AM EST ? [facility] ?[address] ?[place] [address] ? CT Scan Report ? Signed ? Patient: Marquez,Zelidez ?MR#: [id number] ?? [id number] ? : 1965 ?Acct:[id number] ? Age/Sex: 58 / F ?ADM Date: 08/14/24 ? Loc: HO.ED ? Attending Dr: ? Ordering Physician: Radha Crowder NP ?? Date of Service: 08/14/24 ?? Procedure(s): CT abdomen pelvis wo IV con ?? Accession Number(s): [id number] ? cc: Amber Quiroz MD; Radha Crowder NP ? Report Number: ?? [id number]: Total DLP = ??365.00 mGy-cm ?? EXAMINATION: [...] DD/ 1031 ? TD/TT: 08/14/24 1104 ? Sales Representative Publications: ? Procedure Note True, Nisha - 08/14/[address] [address] [address] Scan Report Signed Patient: Heidi Marquez#: [id number] : 1965Acct:[id number] Age/Sex: 58 / FADM Date: 08/14/24 Loc: HO.ED Attending Dr: Ordering Physician: Radha Crowder NP Date of Service: 08/14/24 Procedure(s): CT abdomen pelvis wo IV con Accession Number(s): [id number] cc: Amber Quiroz MD; Radha Crowder NP Report Number: [id number]: Total DLP = 365.00 mGy-cm EXAMINATION: CT [...] 08/14/24 1131 DD/ 1031 TD/TT: 08/14/24 1104 Sales Representative Publications: [facility] External Provider IMG CT PROCEDURES Final Result * Blood Culture (First) (07/15/2024 6:09 PM EST) Blood Venous blood specimen / Unknown 07/15/2024 6:09 PM EST 07/15/2024 6:14 PM EST Comment:Blood Narrative [facility] - 07/20/2024 8:14 PM EST Blood Culture (First) No growth after 5 days. Specimen Source: Blood Generic External Data Provider LAB MICROBIOLOGY - GENERAL ORDERABLES Final Result Performing Organization Address City/[facility]/ZIP Co de Phone Number [facility] [address] [place] [address] [phone] * Blood Culture (Second) (07/15/2024 6:09 PM EST) Blood Venous blood specimen / Unknown 07/15/2024 6:09 PM EST 07/15/2024 6:14 PM EST Comment:Blood [facility] - 07/20/2024 8:14 PM EST Blood Culture (Second) No growth after 5 days. Specimen Source: Blood Generic External Data Provider LAB MICROBIOLOGY - GENERAL ORDERABLES Final Result Performing Organization Address [facility]/ZIP Co de Phone Number [facility] [address] [place] [address] [phone] * Culture, Urine, Routine (07/15/2024 5:00 PM EST) Urine Urine specimen obtained by clean catch procedure / Unknown 07/15/2024 5:00 PM EST 07/15/2024 5:00 PM EST Comment:UACC Maxx [facility] - 07/17/2024 10:40 AM EST Urine Culture Report Result Urine Culture 10,000 to 50,000 cfu/ml Urine Culture Mixed bacterial geovanny characteristic of Urine Culture urogenital contamination. Specimen Source: Urine clean catch us Generic External Data Provider LAB MICROBIOLOGY - GENERAL ORDERABLES Final Result [facility] [address] [place] [phone] * (ABNORMAL) Urinalysis, Complete, with Reflex to Culture (07/15/2024 4:36 PM EST) Color Urine Other(A) [facility] Appearance Urine Hazy [facility] PH 5.5 5.0 - 9.0 [facility] Glucose Urine UA Negative Negative mg/dL [facility] Urine Blood Large (3+)(A) Negative [facility] Specific [place] - Urine 1.025 1.005 - 1.025 [facility] Urine Protein 100 (2+)(A) Neg-Trace mg/dL [facility] Urine Ketones Negative Negative mg/dL [facility] Nitrite Urine Positive(A) Negative [facility] Leukocyte Esterase Urine Negative Negative [facility] RBC Urine >20(A) 0 - 2 /HPF [facility] Urine WBC 0-5 0 - 5 /HPF [facility] Urine Squamous Epithelial Cell 3-5 0 - 2 /HPF [facility] Urine Bacteria None Seen None Seen [facility] Hyaline Casts, Urine 0-2 0 - 2 /LPF [facility] 07/15/2024 4:36 PM EST 07/15/2024 4:49 PM EST Narrative [facility] - 07/15/2024 4:59 PM EST [id number], Clean Catch us Generic External Data Provider LAB URINE ORDERAB LES Final Result [facility] [address] [place] [address] [phone] * (ABNORMAL) THINPREP TIS PAP AND HPV mRNA E6/E7 WITH REFLEX TO HPV 16,18/45 (07/30/2021 10:17 AM EST) Clinical Information: PM [facility] COMMENT SEE COMMENT [facility] [...] has been evaluated with computer assisted technology. [facility] Corporate Sales Trainer: SEE COMMENT [facility] Comment: BJ, CT(ASCP) CT screening location: [address] ??[phone] General Categorization: EPITHELIAL CELL ABNORMALITY(A ) [facility] HPV nRNA E6/E7 Not Detected Not Detected [facility] Comment: Methodology: Compliance Attorney-Mediated Amplification This assay detects E6/E7 viral messenger RNA (mRNA) from 14 high-risk HPV types (16,18,31,33,35,39,45,51,52,56,58,59,66,68). ? The analytical performance characteristics of this assay have been determined by [employer]. The modifications have not been cleared or approved by the FDA. This assay has been validated pursuant to the CLIA regulations and is used for clinical purposes. ?? For additional information, please refer to http://education.[employer]/faq/IHK214y8 (This link if provided for information/ educational purposes only.) Infection Shift in vaginal geovanny suggestive of bacterial vaginosis. 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 LMP: NONE [facility] PATHOLOGIST: SEE COMMENT [facility] Comment: Jennifer Branch M.D., Board Certified in Anatomic and Clinical Pathology (electronic signature) Consulting Pathologist [facility] [phone] Prev. BX: NONE [facility]EN [facility] Prev. PAP: NONE [facility]IVEN [facility] SOURCE: None given [facility] Statement Of Adequacy: SEE COMMENT [facility] Comment: Satisfactory for evaluation. Endocervical/transformation zone component present. 07/30/2021 10:1 7 AM EST us Saleem Maier MD LAB PATHOLOGY ORDERABLES Final R esult [facility] [address] [place] [address], from Last 3 Months or Most Recently Relevant to Health Maintenance Insurance [employer] Care Teams Pharmacy Technician Infusion Relationship Specialty Start Date End Date Amber Quiroz MD [address] [place] [address] PCP - General Family Medicine 07/03/18
--- OUTSIDE RECORDS SUMMARY | 2024-09-03 20:10 | XMS_ITS | Clinical Summary ---
Author Organization [facility] Address [address] [place] [address] Phone Care Team Providers Care Graphic Art Technician Name Role Phone Physician, No Pcp Primary Care Provider Unavaila ble Allergies Active Allergy Reactions Criticality Noted Date Comments Aspirin Congestion of the throat 08/21/2024 Ibuprofen Swallowing Problem 08/21/2024 Acetaminophen Swallowing Problem 08/21/2024 Medications No known medications Active Problems No known active problems Encounters Date Type Department Care Team Description 08/21/2024 3:41 PM EST - 08/21/2024 7:08 PM EST Emergency [facility] Emergency [address] [place] [address] Bilateral flank pain (Primary Dx); Cocaine use; Injury of head, initial encounter Discharge Disposition: Home or Self Care from Last 3 Months Social History Tobacco Use Types Packs/Day Years Used Date Smoking Tobacco: Never Assessed Comments Unknown Sex and Gender Information Value Date Recorded Sex Assigned at Female 08/21/2024 5:24 PM EST Legal Sex Female 1:51 PM EST Gender Identity Female 08/21/2024 5:15 PM EST Sexual Orientation Straight 08/21/2024 5: 24 PM EST Obstetrics History Last Filed Vital Signs Vital Sign Reading Time Taken Comments Blood Pressure 119/70 08/21/2024 4:25 PM EST Pulse 74 08/21/2024 4:25 PM EST Temperature 36.6 ??C (97.9 ??F) 08/21/2024 4:10 PM ES T Respiratory Rate 16 08/21/2024 4:25 PM EST Oxygen Saturation 99% 08/21/2024 4:25 PM EST Inhaled Oxygen Concentration - - Weight 62.6 kg (138 lb) 08/21/2024 3:14 PM EST Height 154.9 cm (5' 1 ) 08/21/2024 3:14 PM EST Body Mass Index 26.07 08/21/2024 3:14 PM EST Plan of Treatment Health Maintenance Due Date Last Done Comments Breast Cancer Screening 1965 Cervical Cancer Screening: Pap Smear 1985 Pneumococcal Vaccine: 50+ Years (3 of 3 - PCV20 or PCV21) 04/29/2022 04/29/2017, 09/14/2015, 09/21/2014, Additional history exists Pneumococcal Vaccine: Pediatrics (0 to 5 Years) and At-Risk Patients (6 to 64 Years) (3 of 3 - PCV20 or PCV21) 04/29/2022 04/29/2017, 09/14/2015, 09/21/2014, Additional history exists Cholesterol Screening (Lipid Panel) 05/31/2022 Colorectal Cancer Screening: Colonoscopy 05/31/2022 Depression Screening 05/31/2022 HIV Screening 05/31/2022 Hepatitis C Screening 05/31/2022 Social Influencers of Health Screening 05/31/2022 Zoster Vaccines (2 of 2) 05/29/2023 04/03/2023 COVID-19 Vaccine ( season) 2024 08/10/2021, 02/19/2021, 01/29/2021 Influenza Vaccine (#1) 2024 , 04/02/2021, 06/29/2020, Additional history exists Hypertension/CHF/CAD Annual BMP Blood Test 08/21/2025 08/21/2024 DTaP,Tdap,and Td Vaccines (5 - Td or Tdap) 03/15/2029 03/15/2019, 12/21/2012, 11/05/2012, Additional history exists RSV Immunization Patients 60+ Years Old (1 - 1-dose 75+ series) 11/20/2039 Hepatitis [...] on patient's age to complete this topic MMR Vaccines Aged Out No longer eligi ble based on patient's age to complete this topic Meningococcal ACWY Vaccine Aged Out N o longer eligible based on patient's age to complete this topic Meningococcal B Vacine Aged Out No lo nger eligible based on patient's age to complete this topic RSV Immunization Patients Under 20 months Aged Out No longer eligible based on patient's age to complete this topic Varicella Vaccines Aged Out No longer eligible based on patient's age to complete this topic Procedures Procedure Name Priority Date/Time Associated Diagnosis Comments ECG ANNOTATED 08/22/2024 DRUG ABUSE SCREEN 8A PANEL, URINE STAT 08/21/2024 6:02 PM EST VAUGHN URINE CULTURE TUBE STAT 08/21/2024 6:00 PM EST URINALYSIS WITH REFLEX MICROSCOPIC AND CULTURE STAT 08/21/2024 6:00 PM EST URINALYSIS WITH REFLEX MICROSCOPIC AND CULTURE STAT 08/21/2024 6:00 PM EST CULTURE URINE STAT 08/21/2024 6:[address] HEAD WO CONTRAST STAT 08/21/2024 5 :00 PM EST ECG 12-LEAD STAT 08/21/2024 4:34 PM EST CBC WITH AUTO DIFFERENTIAL STAT 08/21/2024 3:50 PM EST LIPASE STAT 08/21/2024 3:50 PM EST COMPREHENSIVE METABOLIC PANEL STAT 08/21/2024 3:50 PM EST CBC AND DIFFERENTIAL STAT 08/21/2024 3:50 PM EST from Last 3 Months Results * ECG-Annotated (08/22/2024) us Provider Onbase MD ECG ORDERABLES Final Result * (ABNORMAL) Drug abuse screen 8a panel, urine (08/21/2024 6:02 PM EST) Amphetamine Screen, Ur Negative Negative LAB CHEMISTRY METHOD 5 6:35 PM [facility] Comment:Certain OTC medicati ons containing ephedrine, phenylephrine, pseudoephedrine and phenylpropanolamine can cause false positive results. Barbiturate Screen, Ur Negative Negative LAB CHEMISTRY METHOD 5 6:35 PM EST [facility] Benzodiazepine Screen, Ur Negative Negative LAB CHEMISTRY METHOD 5 6:35 PM [facility] Cocaine Screen, Ur Positive(A ) Negative LAB CHEMISTRY METHOD 5 6:35 PM [facility] Opiate Screen, Ur Negative Negative LAB CHEMISTRY METHOD 5 6:35 PM [facility] Cannabinoid (THC) Screen, Ur Positive(A ) Negative LAB CHEMISTRY METHOD 5 6:35 PM [facility] Comment:Specimens from patie nts taking pantoprazole sodium (Protonix) have been shown to produce false positive results. Oxycodone Screen, Ur Negative Negative LAB CHEMISTRY METHOD 5 6:35 PM [facility] Fentanyl, Ur Negative Negative LAB CHEMISTRY METHOD 5 6:35 PM [facility] Urine Urine specimen obtained by clean catch procedure / Unknown Non-blood Collection / Unknown 08/21/2024 6:02 PM EST 08/21/2024 6:09 PM EST [facility] - 08/21/2024 6:35 PM EST Assay cutoffs: Amphetamines ? 1000 ng/mL Barbiturates ?200 ng/mL Benzodiazepines ?? 200 ng/mL Cocaine ? 300 ng/mL Fentanyl ?1 ng/mL Opiates ? 300 ng/mL Oxycodone ? 100 ng/mL THC ?50 ng/mL Semi-quantitative assay for screening purposes only. Unconfirmed screening result should not be used for non-medical purposes. *ALTERNATE METHOD CONFIRMATION DONE UPON REQUEST ONLY* Za LUO LAB URINE ORDERABLES Final Result [facility] [address] [place] [address], * (ABNORMAL) Urinalysis with reflex microscopic and culture (08/21/2024 6:00 PM EST) Specific [place] Urine 1.019 1.003 - 1.030 LAB URINALYSIS - AUTOMATED METHOD 08/21/2024 6:43 PM [facility] pH, Urine 6.5 5.0 - 8.0 pH LAB URINALYSIS - AUTOMATED METHOD 08/21/2024 6:43 PM [facility] Leukocytes, Urine Trace(A) Negative LAB URINALYSIS - AUTOMATED METHOD 08/21/2024 6:43 PM [facility] Nitrite, Urine Negative Negative LAB URINALYSIS - AUTOMATED METHOD 08/21/2024 6:43 PM [facility] Protein, Urine Negative <=Trace mg/dL LAB URINALYSIS - AUTOMATED METHOD 08/21/2024 6:43 PM [facility] Glucose, Urine Negative Negative mg/dL LAB URINALYSIS - AUTOMATED METHOD 08/21/2024 6:43 PM [facility] Ketones, Urine Negative Negative mg/dL LAB URINALYSIS - AUTOMATED METHOD 08/21/2024 6:43 PM [facility] Urobilinogen , Urine 1.0 0.2 - 1.0 mg/dL LAB URINALYSIS - AUTOMATED METHOD 08/21/2024 6:43 PM [facility] Bilirubin, Urine Negative Negative LAB URINALYSIS - AUTOMATED METHOD 08/21/2024 6:43 PM [facility] Blood, Urine Negative Negative LAB URINALYSIS - AUTOMATED METHOD 08/21/2024 6:43 PM [facility] RBC, Urine 3.9 0 - 4 /HPF LAB URINALYSIS - AUTOMATED METHOD 08/21/2024 6:43 PM [facility] WBC, Urine 4.4(H) 0 - 4 /HPF LAB URINALYSIS - AUTOMATED METHOD 08/21/2024 6:43 PM [facility] Squamous Epithelial, Urine >100(H) 0 - 60 /LPF LAB URINALYSIS - AUTOMATED METHOD 08/21/2024 6:43 PM [facility] Bacteria, Urine Moderate(A) Negative /HPF LAB URINALYSIS - AUTOMATED METHOD 08/21/2024 6:43 PM [facility] Hyaline Casts, Urine 2.4 0 - 3 /LPF LAB URINALYSIS - AUTOMATED METHOD 08/21/2024 6:43 PM [facility] Urine Urine specimen obtained by clean catch procedure / Unknown Non-blood Collection / Unknown 08/21/2024 6:00 PM EST 08/21/2024 6:09 PM EST us Ramiro Maier DO LAB URINE ORDERABLES Final Resu lt [facility] [address] [place] [address], * Vaughn urine culture tube (08/21/2024 6:00 PM EST) Extra Tube Hold for add-ons. 08/21/2024 8:01 PM [facility] Comment:Auto resulted. Urine Urine specimen obtained by clean catch procedure / Unknown Non-blood Collection / Unknown 08/21/2024 6:00 PM EST 08/21/2024 6:09 PM EST Ramiro Miguelrussell Maier DO LAB URINE ORDERABLES Final Resu lt Performing Organization Address City/[facility]/ZIP Co de Phone Number [facility] [address] [place] [address], [place] [phone] * Culture urine (08/21/2024 6:00 PM EST) Culture, Urine 10,000-49,000 CFU/mL Mixed urogenital geovanny, no uropathogens present. Suggest repeat specimen if clinically indicated. 08/22/2024 2:06 PM EST [facility] Urine Urine specimen obtained by clean catch procedure / Unknown Non-blood Collection / Unknown 08/21/2024 6:00 PM EST 08/21/2024 6:43 PM EST Ramiro Ryan Livier [facility] MICROBIOLOGY - GENERAL ORDE RABLES Final Result Performing Organization Address [facility] Co de Phone Number [facility] [address] [place] [address], [place] [phone] * CT Head wo Contrast (08/21/2024 5:00 PM EST) Anatomical Region Laterality Modality Head and Neck Computed Tomogra phy 08/21/2024 5:12 PM EST Impressions 08/21/2024 5:12 PM EST 1. No acute intracranial findings. This document has been electronically signed by: Marycruz Kevin MD on 08/21/2024 17:12:02 Narrative 08/21/2024 5:12 PM EST INDICATION: Syncope, simple, normal neuro exam CT head without contrast Comparison: None Findings: No intra-axial mass, midline shift, hydrocephalus, or acute hemorrhage. No significant atrophy-like change or white matter disease. There is no sinus or mastoid fluid. The orbits are unremarkable. There is no acute fracture. Procedure Note Marycruz Kevin MD - 08/21/2024 INDICATION: Syncope, simple, normal neuro exam CT head without contrast Comparison: None Findings: No intra-axial mass, midline shift, hydrocephalus, or acute hemorrhage. No significant atrophy-like change or white matter disease. There is no sinus or mastoid fluid. The orbits are unremarkable. There is no acute fracture. IMPRESSION: 1. No acute intracranial findings. This document has been electronically signed by: Marycruz Kevin MD on 08/21/2024 17:12:[address] PROCEDURES Final Resu lt * ECG 12 lead (08/21/2024 4:34 PM EST) [facility] Ventricular Rate ECG 77 BPM GEMUSE Atrial Rate 77 BPM GEMUSE P-R Interval 160 ms GEMUSE QRS Duration 86 ms GEMUSE Q-T Interval 392 ms GEMUSE QTc 443 ms GEMUSE P Wave [place] 58 degrees GEMUSE R [place] 11 degrees GEMUSE T [place] 43 degrees GEMUSE ECG Interpretation Normal sinus rhythm When compared with ECG of 16-SEP-2021 21:49, Nonspecific T wave abnormality no longer evident in Lateral leads Confirmed by YAQUELIN DE LA FUENTE ([id number]) on 08/21/2024 8:22:46 PM GEMUSE 08/21/2024 4:34 PM EST 08/21/2024 8:22 PM EST Wayne Kay MD ECG ORDERABLES Final Result GEMUSE * (ABNORMAL) CBC auto differential (08/21/2024 3:50 PM EST) [facility] WBC 4.6(L) 4.8 - 10.8 K/mcL LAB HEMETOLOGY METHOD 08/21/2024 4:06 PM EST [facility] RBC 4.60 3.80 - 4.80 M/mcL LAB HEMETOLOGY METHOD 08/21/2024 4:06 PM EST [facility] Hemoglobin 12.2 11.5 - 16.0 g/dL LAB HEMETOLOGY METHOD 08/21/2024 4:06 PM EST [facility] Hematocrit 37.6 35.0 - 47.0 % LAB HEMETOLOGY METHOD 08/21/2024 4:06 PM [facility] MCV 82.6 79.0 - 98.0 FL LAB HEMETOLOGY METHOD 08/21/2024 4:06 PM [facility] MCH 26.8(L) 27.0 - 32.0 pcg LAB HEMETOLOGY METHOD 08/21/2024 4:06 PM [facility] MCHC 32.4 32.0 - 37.0 g/dL LAB HEMETOLOGY METHOD 08/21/2024 4:06 PM [facility] RDW 15.2(H) 11.0 - 15.0 % LAB HEMETOLOGY METHOD 08/21/2024 4:06 PM [facility] Platelets 235 130 - 400 K/mcL LAB HEMETOLOGY METHOD 08/21/2024 4:06 PM [facility] MPV 10.3 7.0 - 11.0 FL LAB HEMETOLOGY METHOD 08/21/2024 4:06 PM [facility] NRBC 0.0 <1.0 % LAB HEMETOLOGY METHOD 08/21/2024 4:06 PM [facility] NRBC Absolute 0.00 <0.10 K/mcL LAB HEMETOLOGY METHOD 08/21/2024 4:06 PM [facility] Neutrophils Relative 49.4 % LAB HEMETOLOGY METHOD 08/21/2024 4:06 PM [facility] Lymphocytes Relative 40.3 % LAB HEMETOLOGY METHOD 08/21/2024 4:06 PM [facility] Monocytes Relative 7.7 % LAB HEMETOLOGY METHOD 08/21/2024 4:06 PM [facility] Eosinophils Relative 2.2 % LAB HEMETOLOGY METHOD 08/21/2024 4:06 PM [facility] Basophils Relative 0.2 % LAB HEMETOLOGY METHOD 08/21/2024 4:06 PM EST [facility] Immature Granulocytes Relative 0.2 % LAB HEMETOLOGY METHOD 08/21/2024 4:06 PM [facility] Neutrophils Absolute 2.26 1.50 - 7.00 K/mcL LAB HEMETOLOGY METHOD 08/21/2024 4:06 PM [facility] Lymphocytes Absolute 1.84 1.00 - 5.00 K/mcL LAB HEMETOLOGY METHOD 08/21/2024 4:06 PM [facility] Monocytes Absolute 0.35 0.20 - 1.00 K/mcL LAB HEMETOLOGY METHOD 08/21/2024 4:06 PM [facility] Eosinophils Absolute 0.10 0.00 - 0.50 K/mcL LAB HEMETOLOGY METHOD 08/21/2024 4:06 PM EST [facility] Basophils Absolute 0.01 0.00 - 0.20 K/mcL LAB HEMETOLOGY METHOD 08/21/2024 4:06 PM [facility] Immature Granulocytes Absolute 0.01 0.00 - 0.03 K/mcL LAB HEMETOLOGY METHOD 08/21/2024 4:06 PM [facility] Blood Venous blood specimen / Unknown Venipuncture / Unknown 08/21/2024 3:50 PM EST 08/21/2024 3:56 PM EST us Ramiro Maier DO LAB BLOOD ORDERABLES Final Resu lt [facility] [address] [place] [address], * Lipase (08/21/2024 3:50 PM EST) Lipase 34 13 - 75 unit/L LAB CHEMISTRY METHOD 08/21/2024 4:26 PM EST [facility] Blood Venous blood specimen / Unknown Venipuncture / Unknown 08/21/2024 3:50 PM EST 08/21/2024 3:56 PM EST us Ramiro Davis Livier [facility] BLOOD ORDERABLES Final Resu lt [facility] [address] [place] [address], [place] [phone] * (ABNORMAL) Comprehensive metabolic panel (08/21/2024 3:50 PM EST) Sodium 144 133 - 145 mmol/L LAB CHEMISTRY METHOD 08/21/2024 4:26 PM [facility] Potassium 3.5 3.5 - 5.5 mmol/L LAB CHEMISTRY METHOD 08/21/2024 4:26 PM [facility] Chloride 113(H) 96 - 110 mmol/L LAB CHEMISTRY METHOD 08/21/2024 4:26 PM [facility] CO2 23 21 - 32 mmol/L LAB CHEMISTRY METHOD 08/21/2024 4:26 PM [facility] Anion Gap 8 3 - 11 LAB CHEMISTRY METHOD 08/21/2024 4:26 PM [facility] Glucose 108(H) 70 - 100 mg/dL LAB CHEMISTRY METHOD 08/21/2024 4:26 PM [facility] BUN 13 5 - 25 mg/dL LAB CHEMISTRY METHOD 08/21/2024 4:26 PM [facility] Creatinine 0.54 0.50 - 1.10 mg/dL LAB CHEMISTRY METHOD 08/21/2024 4:26 PM [facility] eGFR 106 >=60 mL/min/1. 73m2 LAB CHEMISTRY METHOD 08/21/2024 4:26 PM [facility] Comment:Calculation based on the??Chronic Kidney Disease Epidemiology Collaboration (CKD-EPI) equation refit??without adjustment for race. BUN/Creatinine Ratio 24.1 LAB CHEMISTRY METHOD 08/21/2024 4:26 PM [facility] Calcium 9.3 8.5 - 10.5 mg/dL LAB CHEMISTRY METHOD 08/21/2024 4:26 PM [facility] AST (SGOT) 27 10 - 42 unit/L LAB CHEMISTRY METHOD 08/21/2024 4:26 PM [facility] ALT (SGPT) 36 10 - 60 unit/L LAB CHEMISTRY METHOD 08/21/2024 4:26 PM [facility] Alkaline Phosphatase 109 42 - 121 unit/L LAB CHEMISTRY METHOD 08/21/2024 4:26 PM [facility] Total Protein 7.2 6.0 - 8.0 g/dL LAB CHEMISTRY METHOD 08/21/2024 4:26 PM [facility] Albumin 3.9 3.2 - 5.0 g/dL LAB CHEMISTRY METHOD 08/21/2024 4:26 PM [facility] Total Bilirubin 0.2 0.0 - 1.4 mg/dL LAB CHEMISTRY METHOD 08/21/2024 4:26 PM [facility] Blood Venous blood specimen / Unknown Venipuncture / Unknown 08/21/2024 3:50 PM EST 08/21/2024 3:56 PM EST us Ramiro Maier DO LAB BLOOD ORDERABLES Final Resu lt [facility] [address] [place] [address], [place] [phone] from Last 3 [id number] MEDICAID - [place] Care Teams Graphic Art Technician Relationship Specialty Start Date End Date Physician, No Pcp PCP - General 08/21/24
--- OUTSIDE RECORDS SUMMARY | 2024-09-03 20:10 | XMS_ITS | Encounter Summary ---
Author Organization [employer] Address [address] [place] [address] Care Team Providers Care Resource Management Planner Name Role Phone Amber Quiroz MD Primary Care Provider [phone] Encounter Details Date Type Department Care Team (Late st Contact Info) Description 03/22/2023 Orders Only [facility] [address] [place] [address] [phone] Amber Quiroz MD [address] [place] [address] [phone] ASCUS of cervix with negative high risk [...] Info) Description 10/01/2024 11:30 AM EDT Telemedicine [facility] [address] [place] [address] [phone] 11/12/2024 1:30 PM EDT Office Visit [facility] [address] [place] [address] [phone] Amber Quiroz MD [address] [place] [address] [phone] documented as of this encounter Visit Diagnoses Diagnosis ASCUS of cervix with negative high risk HPV- Primary History of cervical dysplasia Personal history of cervical dysplasia documented in this encounter Care Teams Resource Management Planner Relationship Specialty Start Date End Date Amber Quiroz MD [address] [place] [address] PCP - General Family Medicine 07/03/18 documented as of this encounter
--- OUTSIDE RECORDS SUMMARY | 2024-09-03 20:10 | XMS_ITS | Encounter Summary ---
Author Organization [facility] Address [address] [place] [address] Care Team Providers Care Br[employer] Supervisor Name Role Phone Physician, No Pcp Primary Care Provider Unavaila ble Reason for Visit * Reason Comments Flank Pain Bilat flank pain Encounter Details Date Type Department Care Team (Late st Contact Info) Description 08/21/2024 3:41 PM EST - 08/21/2024 7:08 PM EST Emergency [facility] Emergency [address] [place] [address] Bilateral flank pain (Primary Dx); Cocaine use; Injury of head, initial encounter Discharge Disposition: Home or Self Care Social History Tobacco Use Types Packs/Day Years Used Date Smoking Tobacco: Never Assessed Comments Unknown Sex and Gender Information Value Date Recorded Sex Assigned at Female 08/21/2024 5:24 PM EST Legal Sex Female 1:51 PM EST Gender Identity Female 08/21/2024 5:15 PM EST Sexual Orientation Straight 08/21/2024 5: 24 PM EST documented as of this encounter Last Filed [...] Mass Index 26.07 08/21/2024 3:14 PM EST documented in this encounter Functional Status * Are you deaf or do you have serious difficulty hearing? Answer Date of Assessment Author No 08/21/2024 3:20 PM EST Lynn Bentley RN * Are you blind or do you have serious difficulty seeing, even when wearing glasses? Answer Date of Assessment Author No 08/21/2024 3:20 PM EST Lynn Bentley RN * Do you have serious difficulty walking or climbing stairs? Answer Date of Assessment Author No 08/21/2024 3:20 PM EST Lynn Bentley RN * Do you have serious difficulty dressing or bathing? Answer Date of Assessment Author No 08/21/2024 3:20 PM EST Lynn Bentley RN * Because of a physical, mental, or emotional condition, do you have serious difficulty doing errandsalone such as visiting the doctor? Answer Date of Assessment Author No 08/21/2024 3:20 PM Lynn Mason RN documented as of this encounter Mental Status * Because of a physical, mental, or emotional condition, do you have serious difficulty concentrating, remembering, or making decisions? (5 years old or older) Answer Entry Date Author No 08/21/2024 3:20 PM Lynn Mason RN documented in this encounter Discharge Instructions * Discharge Instructions* PUJA Dickson - 08/21/2024 6:53 PM EST I am discharging you home with head injury precautions. Please follow-up with your primary care provider within 1 week for a reevaluation of your symptoms. If you do not have a primary care provider of record, referrals are given. Follow up with your primary provider. Call tomorrow for appointment. Return to Emergency Department if symptoms worsen, do not improve, or any other concern. Get well soon! Thank you for coming to the [facility] Emergency Department today. Our entire team works together to provide you with the best care possible. Examination and treatment you received in the emergency department has been rendered on an EMERGENCY basis only. It is not intended to be a substitute for or an effort to provide complete medical care. You should follow-up with your primary care provider. Please report to your physician any new or remaining problems, because it is impossible to recognize and treat all elements of injury or illness in a single emergency department visit. In the event that you're unable to obtain a followup appointment in a timely fashion, OR you are not getting any better, OR you are getting worse, OR you develop any symptoms of concern, please return here immediately for further evaluation. The emergency department is open 24 hours a day, 7 days aweek. Your discharge report is based on information that was available when you were in the emergency department. If you do not have a primary care provider, please contact one of the following to make arrangements to follow up. [facility] Gabriela Kennedy [facility] * Attachments The following attachments cannot be sent through Care Everywhere. * Flank Pain ([place]) * Head Injury: Closed: General Info ([place]) documented in this encounter Discharge Disposition Disposition Code Departure Means Destination Comment s Home or Self Care documented in this encounter Progress Notes * Holly Castro RN - 08/21/2024 3:51 PM EST Patient brought back from waiting room post fall in the waiting room restroom. Patient endorses flank pain, headache and new onset dizziness. Patient has a lump to the anterior right forehead. Patient stated she was able to pull the pull cord in the restroom to call for assistance. Patient A&O x4. * Lynn Bentley RN - 08/21/2024 3:16 PM EST BIBA from home. Pt c/o of bilateral flank pain for 5 days. Pt reports that she vomited 5 x today. Pt reports dizziness, poor PO intake, cannot sleep from the pain. Pt reports a hx of kidney stones/kidney disease. Denies any urinary symptoms. * Nicci Espinal RN - 08/21/2024 2:36 PM EST PT BIBA FROM HOME, HERE FOR BILATERAL FLANK PAIN, PT UNCLEAR ON TIMELINE, PT HAS BEEN PRIMARILY GOING TO [facility] BUT NO LONGER WANTS TO GO BACK THERE BECAUSE THEY WILL NO LONGER GIVE HER MORPHINE, PT BEING DIFFICULT IN ANSWERING EMS QUESTIONS, TOOK APAP 30 MINS OFFICE MESSENGER. PT AMBULATORY ON SCENE FOR EMS. Nicci sEpinal RN 08/21/24 1437 * PUJA Dickson - 08/21/2024 2:29 PM EST Emergency Medicine Note Patient Name: John Marquez Initial Evaluation: 08/21/2024 : 1965 Patient's PCP: No Pcp Physician Emergency Physician: PUJA Dickson History of Present Illness Chief Complaint: Chief Complaint Patient presents with Flank Pain Bilat flank pain This is a 58-year-old female with a past medical history of hyperlipidemia, anxiety and renal calculi presenting for evaluation of bilateral flank pain that she states she has had for the past 7 days. Patient states the pain is there and has not been worsening, equal bilaterally. Patient has not taken any [id number]-[id number] medication for treatment of her discomfort. She denies have any fevers, chills, dysuria, hematuria, nausea or vomiting. Following her arrival in the emergency department thepatient was in the bathroom in the waiting room alone and had an unwitnessed fall, striking her head on the floor. Patient denies any loss of consciousness. CT imaging of the brain was ordered immedia tely thereafter. patrol guard used: No ROS: I have performed a ROS with the pertinent positives and negatives documented in the history ofpresent illness. Previous History History reviewed. No pertinent past medical history. History reviewed. No pertinent surgical history. No family history on file. is allergic to aspirin, motrin [ibuprofen], and tylenol [acetaminophen]. No current facility-administered medications on file prior to encounter. No current outpatient medications on file prior to encounter. Physical Exam ED Triage Vitals Temp Heart Rate Resp BP 08/21/24 1514 08/21/24 1514 08/21/24 1514 08/21/24 1514 36.5 ??C (97.7 ??F) 91 18 103/74 SpO2 Temp Source Heart Rate Source Patient Position 08/21/24 1514 08/21/24 1514 08/21/24 1514 08/21/24 1539 100 % Oral Monitor Sitting BP Location FiO2 (%) 08/21/24 1514 -- Left arm Physical Exam General: awake, anxious, cooperative, no apparent distress, vital signs reviewed, patient is afebrile Skin: warm, dry, no diaphoresis, hematoma measuring approximately 2.5 cm round on the right forehead, no active bleeding Eyes: EOMI, no photophobia, no nystagmus Neck: soft/supple, full range of motion, no nuchal rigidity, no midline or paraspinous muscular tenderness of the cervical spine Respiratory: clear to auscultation bilaterally throughout Cardiovascular: regular rate and rhythm, no murmur Gastrointestinal: soft, nontender, no flank pain or CVA tenderness on examination, abdomen is nondistended, normal active bowel sounds Musculoskeletal: patient able to move all four extremities without limitation Neurological: alert and oriented X3, no focal deficits Results Labs Reviewed COMPREHENSIVE METABOLIC PANEL - Abnormal Result Value Sodium 144 Potassium 3.5 Chloride 113 (*) CO2 23 Anion Gap 8 Glucose 108 (*) BUN 13 Creatinine 0.54 eGFR 106 BUN/Creatinine Ratio 24.1 Calcium 9.3 AST (SGOT) 27 ALT (SGPT) 36 Alkaline Phosphatase 109 Total Protein 7.2 Albumin 3.9 Total Bilirubin 0.2 CBC WITH AUTO DIFFERENTIAL - Abnormal WBC 4.6 (*) RBC 4.60 Hemoglobin 12.2 Hematocrit 37.6 MCV 82.6 MCH 26.8 (*) MCHC 32.4 RDW 15.2 (*) Platelets 235 MPV 10.3 NRBC 0.0 NRBC Absolute 0.00 Neutrophils Relative 49.4 Lymphocytes Relative 40.3 Monocytes Relative 7.7 Eosinophils Relative 2.2 Basophils Relative 0.2 Immature Granulocytes Relative 0.2 Neutrophils Absolute 2.26 Lymphocytes Absolute 1.84 Monocytes Absolute 0.35 Eosinophils Absolute 0.10 Basophils Absolute 0.01 Immature Granulocytes Absolute 0.01 URINALYSIS WITH REFLEX MICROSCOPIC AND CULTURE - Abnormal Specific [place] Urine 1.019 pH, Urine 6.5 Leukocytes, Urine Trace (*) Nitrite, Urine Negative Protein, Urine Negative Glucose, Urine Negative Ketones, Urine Negative Urobilinogen, Urine 1.0 Bilirubin, Urine Negative Blood, Urine Negative RBC, Urine 3.9 WBC, Urine 4.4 (*) Squamous Epithelial, Urine >100 (*) Bacteria, Urine Moderate (*) Hyaline Casts, Urine 2.4 DRUG ABUSE SCREEN 8A PANEL, URINE - Abnormal Amphetamine Screen, Ur Negative Barbiturate Screen, Ur Negative Benzodiazepine Screen, Ur Negative Cocaine Screen, Ur Positive (*) Opiate Screen, Ur Negative Cannabinoid (THC) Screen, Ur Positive (*) Oxycodone Screen, Ur Negative Fentanyl, Ur Negative Narrative: Assay cutoffs: Amphetamines 1000 ng/mL Barbiturates 200 ng/mL Benzodiazepines 200 ng/mL Cocaine 300 ng/mL Fentanyl 1 ng/mL Opiates 300 ng/mL Oxycodone 100 ng/mL THC 50 ng/mL Semi-quantitative assay for screening purposes only. Unconfirmed screening result should not be used for non-medical purposes. *ALTERNATE METHOD CONFIRMATION DONE UPON REQUEST ONLY* LIPASE - Normal Lipase 34 CULTURE URINE CBC AND DIFFERENTIAL Narrative: The following orders were created for panel order CBC and differential. Procedure Abnormality Status --------- ------ CBC auto differential[[id number]] Abnormal Final result Please view results for these tests on the individual orders. URINALYSIS WITH REFLEX MICROSCOPIC AND CULTURE Narrative: The following orders were created for panel order Urinalysis with reflex microscopic and culture. Procedure Abnormality Status --------- ------ Urinalysis with reflex m...[[id number]] Abnormal Final result Vaughn urine culture tube[[id number]] In process Please view results for these tests on the individual orders. Abnormal Labs Reviewed COMPREHENSIVE METABOLIC PANEL - Abnormal; Notable for the following components: Result Value Chloride 113 (*) Glucose 108 (*) All other components within normal limits CBC WITH AUTO DIFFERENTIAL - Abnormal; Notable for the following components: WBC 4.6 (*) MCH 26.8 (*) RDW 15.2 (*) All other components within normal limits URINALYSIS WITH REFLEX MICROSCOPIC AND CULTURE - Abnormal; Notable for the following components: Leukocytes, Urine Trace (*) WBC, Urine 4.4 (*) Squamous Epithelial, Urine >100 (*) Bacteria, Urine Moderate (*) All other components within normal limits DRUG ABUSE SCREEN 8A PANEL, URINE - Abnormal; Notable for the following components: Cocaine Screen, Ur Positive (*) Cannabinoid (THC) Screen, Ur Positive (*) All other components within normal limits Narrative: Assay cutoffs: Amphetamines 1000 ng/mL Barbiturates 200 ng/mL Benzodiazepines 200 ng/mL Cocaine 300 ng/mL Fentanyl 1 ng/mL Opiates 300 ng/mL Oxycodone 100 ng/mL THC 50 ng/mL Semi-quantitative assay for screening purposes only. Unconfirmed screening result should not be used for non-medical purposes. *ALTERNATE METHOD CONFIRMATION DONE UPON REQUEST ONLY* CT Head wo Contrast Final Result 1. No acute intracranial findings. This document has been electronically signed by: Marycruz Kevin MD on 08/21/2024 17:12:02 I have discussed the incidental/abnormal imaging and/or lab abnormalities with the patient and haveinstructed them the need for further evaluation and workup with their primary care doctor. The laboratory results, imaging results and other diagnostic exam results were reviewed in the EMR. EKG Interpretation Critical Care Time None ? Differential Diagnosis Bilateral flank pain Acute urinary tract infection Pyelonephritis Nephrolithiasis Medical Decision Making Medical Decision Making Patient is evaluated. Results of CT imaging of the brain is pending at this time. Patient's laboratories are reviewed and urinalysis will be obtained. Patient will be given IV fluids, morphine and Zofran for her symptoms. Medications ondansetron ODT (ZOFRAN-ODT) disintegrating tablet 4 mg (4 mg oral Given 08/21/241725) sodium chloride 0.9 % bolus 1,000 mL (1,000 mL intravenous New Bag 08/21/241725) morphine 2 mg/mL injection 2 mg (2 mg intravenous Given 08/21/241725) ED Course as of 08/21/241853Aug 21, 20241818 There were no acute abnormalities noted on CT imaging of the brain. Urinalysis is pending. [RO] 1849 Patient's laboratories are reviewed. There is no evidence of hematuria and the patient does not have flank pain on examination. Patient will be discharged home. [RO] ED Course User Index [RO] PUJA Dickson Clinical Impressions as of 08/21/24 1854 Bilateral flank pain Cocaine use Injury of head, initial encounter Procedures Procedures Diagnosis 1. Bilateral flank pain 2. Cocaine use 3. Injury of head, initial encounter Disposition Discharge ED Prescriptions None Physician Attestation PUJA Dickson 08/21/24 1720 PUJA Dickson 08/21/24 1854 Cosigned by Ramiro Maier DO at 08/22/2024 3:19 PM EST documented in this encounter Plan of Treatment Not on file documented as of this encounter Procedures Procedure Name Priority Date/Time Associated Diagnosis Comments ECG ANNOTATED 08/22/2024 DRUG ABUSE SCREEN 8A PANEL, URINE STAT 08/21/2024 6:02 PM EST URINALYSIS WITH REFLEX MICROSCOPIC AND CULTURE STAT 08/21/2024 6:00 PM EST VAUGHN URINE CULTURE TUBE STAT 08/21/2024 6:00 PM EST URINALYSIS WITH REFLEX MICROSCOPIC AND CULTURE STAT 08/21/2024 6:00 PM EST CULTURE URINE STAT 08/21/2024 6:[address] HEAD WO CONTRAST STAT 08/21/2024 5 :00 PM EST ECG 12-LEAD STAT 08/21/2024 4:34 PM EST CBC WITH AUTO DIFFERENTIAL STAT 08/21/2024 3:50 PM EST CBC AND DIFFERENTIAL STAT 08/21/2024 3:50 PM EST LIPASE STAT 08/21/2024 3:50 PM EST COMPREHENSIVE METABOLIC PANEL STAT 08/21/2024 3:50 PM EST documented in this encounter Results * ECG-Annotated (08/22/2024) us Provider Onbase MD ECG ORDERABLES Final Result * (ABNORMAL) Drug abuse screen 8a panel, urine (08/21/2024 6:02 PM EST) Amphetamine Screen, Ur Negative Negative LAB CHEMISTRY METHOD 5 6:35 PM [facility] Comment:Certain OTC medicati ons containing ephedrine, phenylephrine, pseudoephedrine and phenylpropanolamine can cause false positive results. Barbiturate Screen, Ur Negative Negative LAB CHEMISTRY METHOD 5 6:35 PM [facility] Benzodiazepine Screen, Ur Negative Negative LAB CHEMISTRY METHOD 5 6:35 PM [facility] Cocaine Screen, Ur Positive(A ) Negative LAB CHEMISTRY METHOD 5 6:35 PM [facility] Opiate Screen, Ur Negative Negative LAB CHEMISTRY METHOD 5 6:35 PM [facility] Cannabinoid (THC) Screen, Ur Positive(A ) Negative LAB CHEMISTRY METHOD 5 6:35 PM [facility] Comment:Specimens from patie nts taking pantoprazole sodium (Protonix) have been shown to produce false positive results. Oxycodone Screen, Ur Negative Negative LAB CHEMISTRY METHOD 5 6:35 PM [facility] Fentanyl, Ur Negative Negative LAB CHEMISTRY METHOD 5 6:35 PM [facility] Urine Urine specimen obtained by clean catch procedure / Unknown Non-blood Collection / Unknown 08/21/2024 6:02 PM EST 08/21/2024 6:[address] [facility] - 08/21/2024 6:35 PM EST [...] Za LUO LAB URINE ORDERABLES Final Result Performing Organization Address [facility] de Phone Number [facility] [address] [place] [address], [place] [phone] * Culture urine (08/21/2024 6:00 PM EST) Culture, Urine 10,000-49,000 CFU/mL Mixed urogenital geovanny, no uropathogens present. Suggest repeat specimen if clinically indicated. 08/22/2024 2:06 PM EST [facility] Urine Urine specimen obtained by clean catch procedure / Unknown Non-blood Collection / Unknown 08/21/2024 6:00 PM EST 08/21/2024 6:43 PM EST Ramiro Maier DO LAB MICROBIOLOGY - GENERAL ORDMarisel VALLEJO Final Result Performing Organization Address [facility] Co de Phone Number [facility] [address] [place] [address], [place] [phone] * Vaughn urine culture tube (08/21/2024 6:00 PM EST) Extra Tube Hold for add-ons. 08/21/2024 8:01 PM EST [facility] Comment:Auto resulted. Urine Urine specimen obtained by clean catch procedure / Unknown Non-blood Collection / Unknown 08/21/2024 6:00 PM EST 08/21/2024 6:09 PM EST us Ramiro Maier DO LAB URINE ORDERABLES Final Resu lt [facility] [address] [place] [address], [place] [phone] * (ABNORMAL) Urinalysis with reflex microscopic and culture (08/21/2024 6:00 PM EST) Specific [place] Urine 1.019 1.003 - 1.030 LAB URINALYSIS - AUTOMATED METHOD 08/21/2024 6:43 PM [facility] pH, Urine 6.5 5.0 - 8.0 pH LAB URINALYSIS - AUTOMATED METHOD 08/21/2024 6:43 PM [facility] Leukocytes, Urine Trace(A) Negative LAB URINALYSIS - AUTOMATED METHOD 08/21/2024 6:43 PM [facility] Nitrite, Urine Negative Negative LAB URINALYSIS - AUTOMATED METHOD 08/21/2024 6:43 PM [facility] Protein, Urine Negative <=Trace mg/dL LAB URINALYSIS - AUTOMATED METHOD 08/21/2024 6:43 PM [facility] Glucose, Urine Negative Negative mg/dL LAB URINALYSIS - AUTOMATED METHOD 08/21/2024 6:43 PM [facility] Ketones, Urine Negative Negative mg/dL LAB URINALYSIS - AUTOMATED METHOD 08/21/2024 6:43 PM [facility] Urobilinogen , Urine 1.0 0.2 - 1.0 mg/dL LAB URINALYSIS - AUTOMATED METHOD 08/21/2024 6:43 PM [facility] Bilirubin, Urine Negative Negative LAB URINALYSIS - AUTOMATED METHOD 08/21/2024 6:43 PM [facility] Blood, Urine Negative Negative LAB URINALYSIS - AUTOMATED METHOD 08/21/2024 6:43 PM EST [facility] RBC, Urine 3.9 0 - 4 /HPF LAB URINALYSIS - AUTOMATED METHOD 08/21/2024 6:43 PM [facility] WBC, Urine 4.4(H) 0 - 4 /HPF LAB URINALYSIS - AUTOMATED METHOD 08/21/2024 6:43 PM [facility] Squamous Epithelial, Urine >100(H) 0 - 60 /LPF LAB URINALYSIS - AUTOMATED METHOD 08/21/2024 6:43 PM [facility] Bacteria, Urine Moderate(A) Negative /HPF LAB URINALYSIS - AUTOMATED METHOD 08/21/2024 6:43 PM [facility] Hyaline Casts, Urine 2.4 0 - 3 /LPF LAB URINALYSIS - AUTOMATED METHOD 08/21/2024 6:43 PM [facility] Urine Urine specimen obtained by clean catch procedure / Unknown Non-blood Collection / Unknown 08/21/2024 6:00 PM EST 08/21/2024 6:09 PM EST us Ramiro Maier DO LAB URINE ORDERABLES Final Resu lt [facility] [address] [place] [address], [place] [phone] * CT Head wo Contrast (08/21/2024 5:00 [...] ECG 12 lead (08/21/2024 4:34 PM EST) Ventricular Rate ECG 77 BPM GEMUSE Atrial Rate 77 BPM GEMUSE P-R Interval 160 ms GEMUSE QRS Duration 86 ms GEMUSE Q-T Interval 392 ms GEMUSE QTc 443 ms GEMUSE P Wave [place] 58 degrees GEMUSE R [place] 11 degrees GEMUSE T [place] 43 degrees GEMUSE ECG Interpretation Normal sinus rhythm When compared with ECG of 16-SEP-2021 21:49, Nonspecific T wave abnormality no longer evident in Lateral leads Confirmed by YAQUELIN DE LA FUENTE ([id number]) on 08/21/2024 8:22:46 PM GEMUSE 08/21/2024 4:34 PM EST 08/21/2024 8:22 PM EST Wayne Kay MD ECG ORDERABLES Final Result GEMUSE * (ABNORMAL) CBC auto differential (08/21/2024 3:50 PM EST) WBC 4.6(L) 4.8 - 10.8 K/[facility] HEMETOLOGY METHOD 08/21/2024 4:06 PM EST [facility] RBC 4.60 3.80 - 4.80 M/[facility] LAB HEMETOLOGY METHOD 08/21/2024 4:06 PM [facility] Hemoglobin 12.2 11.5 - 16.0 g/dL LAB HEMETOLOGY METHOD 08/21/2024 4:06 PM [facility] Hematocrit 37.6 35.0 - 47.0 % LAB HEMETOLOGY METHOD 08/21/2024 4:06 PM [facility] MCV 82.6 79.0 - 98.0 FL LAB HEMETOLOGY METHOD 08/21/2024 4:06 PM [facility] MCH 26.8(L) 27.0 - 32.0 pcg LAB HEMETOLOGY METHOD 08/21/2024 4:06 PM [facility] MCHC 32.4 32.0 - 37.0 g/dL LAB HEMETOLOGY METHOD 08/21/2024 4:06 PM [facility] RDW 15.2(H) 11.0 - 15.0 % LAB HEMETOLOGY METHOD 08/21/2024 4:06 PM [facility] Platelets 235 130 - 400 K/mcL LAB HEMETOLOGY METHOD 08/21/2024 4:06 PM [facility] MPV 10.3 7.0 - 11.0 FL LAB HEMETOLOGY METHOD 08/21/2024 4:06 PM [facility] NRBC 0.0 <1.0 % LAB HEMETOLOGY METHOD 08/21/2024 4:06 PM [facility] NRBC Absolute 0.00 <0.10 K/mcL LAB HEMETOLOGY METHOD 08/21/2024 4:06 PM [facility] Neutrophils Relative 49.4 % LAB HEMETOLOGY METHOD 08/21/2024 4:06 PM [facility] Lymphocytes Relative 40.3 % LAB HEMETOLOGY METHOD 08/21/2024 4:06 PM [facility] Monocytes Relative 7.7 % LAB HEMETOLOGY METHOD 08/21/2024 4:06 PM EST [facility] Eosinophils Relative 2.2 % LAB HEMETOLOGY METHOD 08/21/2024 4:06 PM [facility] Basophils Relative 0.2 % LAB HEMETOLOGY METHOD 08/21/2024 4:06 PM [facility] Immature Granulocytes Relative 0.2 % LAB HEMETOLOGY METHOD 08/21/2024 4:06 PM [facility] Neutrophils Absolute 2.26 1.50 - 7.00 K/mcL LAB HEMETOLOGY METHOD 08/21/2024 4:06 PM [facility] Lymphocytes Absolute 1.84 1.00 - 5.00 K/mcL LAB HEMETOLOGY METHOD 08/21/2024 4:06 PM [facility] Monocytes Absolute 0.35 0.20 - 1.00 K/mcL LAB HEMETOLOGY METHOD 08/21/2024 4:06 PM EST [facility] Eosinophils Absolute 0.10 0.00 - 0.50 K/mcL LAB HEMETOLOGY METHOD 08/21/2024 4:06 PM [facility] Basophils Absolute 0.01 0.00 - 0.20 K/mcL LAB HEMETOLOGY METHOD 08/21/2024 4:06 PM [facility] Immature Granulocytes Absolute 0.01 0.00 - 0.03 K/mcL LAB HEMETOLOGY METHOD 08/21/2024 4:06 PM [facility] Blood Venous blood specimen / Unknown Venipuncture / Unknown 08/21/2024 3:50 PM EST 08/21/2024 3:56 PM EST us Ramiro Maier DO LAB BLOOD ORDERABLES Final Resu lt [facility]) [facility] [address] [place] [address], [place] [phone] * Lipase (08/21/2024 3:50 PM EST) Lipase 34 13 - 75 unit/L LAB CHEMISTRY METHOD 08/21/2024 4:26 PM [facility] Blood Venous blood specimen / Unknown Venipuncture / Unknown 08/21/2024 3:50 PM EST 08/21/2024 3:56 PM EST Ramiro Maier DO LAB BLOOD ORDERABLES Final Resu lt [facility] [address] [place] [address], [place] [phone] * (ABNORMAL) Comprehensive metabolic panel (08/21/2024 3:50 PM EST) Pathologist [facility] Sodium 144 133 - 145 mmol/L LAB CHEMISTRY METHOD 08/21/2024 4:26 PM [facility] Potassium 3.5 3.5 - 5.5 mmol/L LAB CHEMISTRY METHOD 08/21/2024 4:26 PM [facility] Chloride 113(H) 96 - 110 mmol/L LAB CHEMISTRY METHOD 08/21/2024 4:26 PM [facility] CO2 23 21 - 32 mmol/L LAB CHEMISTRY METHOD 08/21/2024 4:26 PM [facility] Anion Gap 8 3 - 11 LAB CHEMISTRY METHOD 08/21/2024 4:26 PM [facility] Glucose 108(H) 70 - 100 mg/dL LAB CHEMISTRY METHOD 08/21/2024 4:26 PM [facility] BUN 13 5 - 25 mg/dL LAB CHEMISTRY METHOD 08/21/2024 4:26 PM [facility] Creatinine 0.54 0.50 - 1.10 mg/dL LAB CHEMISTRY METHOD 08/21/2024 4:26 PM [facility] eGFR 106 >=60 mL/min/1. 73m2 LAB CHEMISTRY METHOD 08/21/2024 4:26 PM [facility] Comment:Calculation based on the??Chronic Kidney Disease Epidemiology Collaboration (CKD-EPI) equation refit??without adjustment for race. BUN/Creatinine Ratio 24.1 LAB CHEMISTRY METHOD 08/21/2024 4:26 PM [facility] Calcium 9.3 8.5 - 10.5 mg/dL LAB CHEMISTRY METHOD 08/21/2024 4:26 PM [facility] AST (SGOT) 27 10 - 42 unit/L LAB CHEMISTRY METHOD 08/21/2024 4:26 PM [facility] ALT (SGPT) 36 10 - 60 unit/L LAB CHEMISTRY METHOD 08/21/2024 4:26 PM [facility] Alkaline Phosphatase 109 42 - 121 unit/L LAB CHEMISTRY METHOD 08/21/2024 4:26 PM [facility] Total Protein 7.2 6.0 - 8.0 g/dL LAB CHEMISTRY METHOD 08/21/2024 4:26 PM [facility] Albumin 3.9 3.2 - 5.0 g/dL LAB CHEMISTRY METHOD 08/21/2024 4:26 PM [facility] Total Bilirubin 0.2 0.0 - 1.4 mg/dL LAB CHEMISTRY METHOD 08/21/2024 4:26 PM [facility] Blood Venous blood specimen / Unknown Venipuncture / Unknown 08/21/2024 3:50 PM EST 08/21/2024 3:56 PM EST us Ramiro Maier DO LAB BLOOD ORDERABLES Final Resu lt [facility] [address] [place] [address], [place] [phone] documented in this encounter Visit Diagnoses Diagnosis Bilateral flank pain- Primary Abdominal pain, unspecified site Cocaine use Injury of head, initial encounter documented in this encounter Administered Medications Inactive Administered Medications - up to 3 most recent administrations Medication Order MAR Action Action Date Dose Rate Site morphine 2 mg/mL injection 2 mg 2 mg, intravenous, Once, On Mon08/21/24 at 1714, For 1 dose Given 08/21/2024 5:26 PM EST 2 mg ondansetron ODT (ZOFRAN-ODT) disintegrating tablet 4 mg 4 mg, oral, Once, On Mon08/21/24 at 1704, For 1 dose Given 08/21/2024 5:26 PM EST 4 mg sodium chloride 0.9 % bolus 1,000 mL 1,000 mL, intravenous, at 4,000 mL/hr, Administer over 0.25 Hours, Once, On Mon08/21/24 at 1714, For 1 dose New Bag 08/21/2024 5:26 PM EST 1,000 mL 4000 mL/hr documented in this encounter Active and Recently Administered Medications Times are shown in EST. Scheduled Medication Order 08/19/2024 08/20/2024 08/21/2024 morphine 2 mg/mL injection 2 mg (COMPLETED) 2 mg, intravenous, Once, On Mon08/21/24 at 1714, For 1 dose 1726 (Given - Provid er: Holly Castro RN) ondansetron ODT (ZOFRAN-ODT) disintegrating tablet 4 mg (COMPLETED) 4 mg, oral, Once, On Mon08/21/24 at 1704, For 1 dose 1726 (Given - Provid er: Holly Castro RN) sodium chloride 0.9 % bolus 1,000 mL (COMPLETED) 1,000 mL, intravenous, at 4,000 mL/hr, Administer over 0.25 Hours, Once, On Mon08/21/24 at 1714, For 1 dose 1726 (New Bag - Prov ider: Holly Castro, DOROTA)1741 (Stopped - Provider: Holly Castro RN) documented in this encounter Care Teams Brush Fabrication Supervisor Relationship Specialty Start Date End Date Physician, No Pcp PCP - General 08/21/24 documented as of this encounter
--- OUTSIDE RECORDS SUMMARY | 2024-09-03 20:10 | XMS_ITS | Encounter Summary ---
Author Organization [employer] Address [address] [facility] [address] [place] [address] Care Team Providers Care Nanotechnology Engineering Technician Name Role Phone Amber Quiroz MD Primary Care Provider [phone] Encounter Details Date Type Department Care Team (Late st Contact Info) Description 04/05/2023 Orders Only [facility] MED & PEDS [address] [place] [address] Anabell Martinez LPN Social History Tobacco Use [...] 10/01/2024 11:30 AM EDT Telemedicine [facility] MEDICINE [address] [place] [address] [phone] 11/12/2024 1:30 PM EDT Office Visit [facility] [address] [place] [phone] Amber Quiroz MD [address] [place] [phone] documented as of this encounter Visit Diagnoses Not on filedocumented in this encounter Care Teams Nanotechnology Engineering Technician Relationship Specialty Start Date End Date Amber Quiroz MD [address] [place] [address] PCP - General Family Medicine 07/03/18 documented as of this encounter
--- OUTSIDE RECORDS SUMMARY | 2024-09-03 20:10 | XMS_ITS | Encounter Summary ---
Author Organization [employer] [facility] Address [address] [facility] [address] [place] [address] Care Team Providers Care Patch Worker Name Role Phone Amber Quiroz MD Primary Care Provider [phone] Encounter Details Date Type Department Care Team (Late st Contact Info) Description 12/12/2022 Orders Only [facility] [address] [place] [phone] Anabell Martinez LPN Social History Tobacco Use [...] Info) Description 10/01/2024 11:30 AM EDT Telemedicine [facility] [address] [place] [phone] 11/12/2024 1:30 PM EDT Office Visit [facility] [address] [place] [phone] Amber Quiroz MD [address] [place] [phone] documented as of this encounter Visit Diagnoses Not on filedocumented in this encounter Care Teams Patch Worker Relationship Specialty Start Date End Date Amber Quiroz MD [address] [place] [address] PCP - General Family Medicine 07/03/18 documented as of this encounter
== END 2024-09-03 16:24 | disposition home or self-care (01) ==
LOC: HO.HHCL 16:23
PROVIDERS: Visit Provider Family Medicine
DX: D50.9 Iron deficiency anemia, unspecified (principal); E78.5 Hyperlipidemia, unspecified; I10 Essential (primary) hypertension
CPT/HCPCS: 80053; 80061; 82607; 82728; 82746; 83036; 83540; 84443; 85025

== ENCOUNTER 2024-09-30 14:57 | Emergency (ER) | payer MEDICAID, SELFPAY ==
--- NOTE | ~2024-09-30 | CT_ITS ---
EXAMINATION: CT ABDOMEN AND PELVIS WITHOUT CONTRAST CLINICAL INFORMATION: Left flank pain. COMPARISON: August 14, 2024. TECHNIQUE: Multidetector volumetric imaging was performed from the superior aspect of the liver through the pubic symphysis. Sagittal and coronal reformatted images were obtained on the technologist's workstation. This CT examination was performed using dose optimization techniques as appropriate, variously including the following: *Automated exposure control *Adjustment of mA and/or kV according to patient size (this includes techniques or standardized protocols for targeted exams where dose is matched to indication/reason for exam; i.e. extremities or head) *Use of iterative reconstruction technique. DLP: 395 mGy centimeter. FINDINGS: Limited evaluation of the intra-abdominal organs and vascular structures due to lack of IV contrast. LUNG BASES: No acute airspace disease. LIVER, GALLBLADDER, AND BILIARY TREE: Liver measures 15 cm. No pericholecystic fluid collection or gallbladder wall thickening. No intrahepatic or extrahepatic biliary ductal dilatation. PANCREAS: No peripancreatic fluid collections. No main pancreatic ductal dilatation. SPLEEN: 7 cm. ADRENAL GLANDS: No nodular lesions. KIDNEYS AND URETERS: Multiple, punctate, less than 1.5 mm calculi throughout the pelvicalyceal systems both kidneys. No hydronephrosis. There is a 1.7 cm well-defined fat density lesion in the corticomedullary junction, upper pole right kidney. BLADDER: Fluid-filled. GASTROINTESTINAL TRACT: Inspissated secretions versus tiny appendicolith and within normal size short length appendix.. No ascites. No pneumoperitoneum. No pneumatosis intestinalis. No gross wall thickening. There is a group of distal prominent gas-filled small bowel loops/ileal loops converging in the left lower pelvis. ABDOMINAL WALL: Small fat-containing umbilical hernia. LYMPH NODES: No lymphadenopathy, mesenteric, retroperitoneum. VASCULAR: Calcified plaques without aneurysm, abdominal aorta. Calcified plaque in the origin of the right main renal artery. PELVIC VISCERA: Inadequate evaluation. 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 Mild multilevel thoracolumbar spondylosis. No acute fracture or gross listhesis. CT/CT abdomen pelvis wo IV con IMPRESSION: Nonobstructing, less than 1.5 mm, nephrolithiasis, bilaterally. Mild gas distended ileal loops without intestinal obstruction pattern. 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 Small fat-containing umbilical hernia. Fleischner guidelines were followed. Electronically signed by: Shayan Newberry MD 10/01/2024 08:12 AM EDT
[2024-09-30 15:22] VITALS: BP 131/73; PULSE 65; O2SAT 100
[2024-09-30 15:23] VITALS: BP 126/74; PULSE 66; RESP 20; TEMP 37.2; O2SAT 100; O2SAT 99; BMI 26.6
--- NOTE | 2024-09-30 15:30 | ED.ABDPAIN ---
HPI - Abdominal Pain General Chief Complaint: General Medical Stated Complaint: L FLANK [id number], N/V,H/O HIDNEY CA & STONES Time Seen by Provider: 09/30/24 15:26 Source: patient, EMS, RN notes reviewed and old records reviewed Mode of arrival: EMS Limitations: no limitations History of Present Illness ED Provider: CONRADO ALANIZ PA-C HPI narrative: 58 year old female with pmhx significant for nephrolithiasis, hypertension, anemia, DVT, chronic pain presents to the ED today via EMS from home for evaluation of left flank pain x3 days. Admits to associated nausea and vomiting. States she is unable to tolerate PO. She has been taking Tramadol at home without improvement. Admits to voiding in small amounts. Denies dysuria or hematuria. Reports recent diagnosis of kidney cancer 2-3 weeks ago. Has a surgery scheduled with her urologist for removal of mass in two weeks. Denies starting chemo or radiation. Denies fever, chills, diarrhea, constipation. Patient has been evaluated various times or flank pain and nonobstructing renal stones over the past few years. Multiple CTs of her abdomen. Requests opioid pain medication for management. Given fentanyl and zofran via [facility] [employer] today. Related Data Home Medications ?Medication ?Instructions ?Recorded ?Confirmed albuterol sulfate 90 mcg/actuation 2 puff PO Q4-6H PRN dyspnea 11/26/20 11/26/20 aerosol inhaler (ProAir HFA) amlodipine 10 mg tablet 1 tab PO DAILY 11/26/20 11/26/20 ascorbic acid (vitamin C) 250 mg 1 tab PO BID 11/26/20 11/26/20 tablet atorvastatin 10 mg tablet 1 tab PO DAILY 11/26/20 11/26/20 clonidine HCl 0.2 mg tablet 1 tab PO BID PRN panic attack 11/26/20 11/26/20 cyanocobalamin (vitamin B-12) 500 1 tab PO DAILY 11/26/20 11/26/20 mcg tablet docusate sodium 100 mg capsule 1 - 2 cap PO BEDTIME PRN 11/26/20 11/26/20 constipation fluoxetine 20 mg capsule 3 cap PO QAM 11/26/20 11/26/20 gabapentin 100 mg capsule 1 cap PO TID PRN anxiety 11/26/20 11/26/20 gabapentin 400 mg capsule 1 cap PO BEDTIME 11/26/20 11/26/20 loratadine 10 mg tablet 1 tab PO DAILY 11/26/20 11/26/20 loratadine 10 mg tablet 1 tab PO DAILY 11/26/20 11/26/20 mirtazapine 30 mg tablet 1 tab PO BEDTIME 11/26/20 11/26/20 mirtazapine 30 mg tablet 1 tab PO BEDTIME 11/26/20 11/26/20 ondansetron HCl 4 mg tablet 1 tab PO Q8H PRN nausea 11/26/20 11/26/20 polyvinyl alcohol 1.4 % eye drops 1 drp ophthalmic (eye) TID 11/26/20 11/26/20 (Artificial Tears (polyvinyl alcohol)) quetiapine 25 mg tablet 1 tab PO BID PRN anxiety 11/26/20 11/26/20 topiramate 25 mg tablet 1 tab PO BID 11/26/20 11/26/20 zolpidem 10 mg tablet 1 tab PO BEDTIME PRN insomnia 11/26/20 11/26/20 Previous Rx's ?Medication ?Instructions ?Recorded tramadol 50 mg tablet 50 mg PO Q8H PRN pain #3 tabs 11/26/20 nitrofurantoin 100 mg PO BID #14 caps 05/26/21 monohydrate/macrocrystals 100 mg capsule (Macrobid) phenazopyridine 100 mg tablet 100 mg PO TID PRN pain 6 doses #6 05/26/21 (Pyridium) tabs cefuroxime axetil 250 mg tablet 250 mg PO BID 7 days #14 tabs 07/15/21 morphine 15 mg immediate release 15 mg PO BID PRN pain #8 tabs 07/15/21 tablet docusate sodium 100 mg capsule 100 mg PO BID #20 caps 07/21/21 (Colace) sennosides 8.6 mg tablet (senna) 8.6 mg PO BEDTIME #14 tabs 07/21/21 docusate sodium 100 mg capsule 100 mg PO BID PRN Constipation #14 11/23/21 (Colace) caps nitrofurantoin 100 mg PO BID uti 7 days #14 caps 11/23/21 monohydrate/macrocrystals 100 mg capsule (Macrobid) ondansetron 4 mg disintegrating 4 mg PO Q6H nausea/vomiting #14 11/23/21 tablet tabs cephalexin 500 mg capsule 500 mg PO Q8H 7 days #21 caps 08/02/22 ondansetron 4 mg disintegrating 4 mg PO Q8H PRN nausea and 03/02/23 tablet vomiting #10 tabs phenazopyridine 200 mg tablet 200 mg PO TID PRN pain 6 doses #6 03/02/23 (Pyridium) tabs acetaminophen 325 mg capsule 650 mg (2 x 325 mg) PO Q6H PRN 04/01/24 (Tylenol) pain #30 caps cefdinir 300 mg capsule 300 mg PO BID 5 days #10 caps 04/01/24 cephalexin 500 mg capsule 500 mg PO BID #14 caps 07/15/24 ondansetron HCl 4 mg tablet 4 mg PO Q8H PRN nausea and 07/15/24 vomiting #10 tabs oxycodone 5 mg tablet 5 mg PO Q6H PRN pain, moderate #10 07/15/24 tabs tamsulosin 0.4 mg capsule (Flomax) 0.4 mg PO DAILY #6 caps 07/15/24 dicyclomine 10 mg capsule 10 mg PO BID #14 caps 08/14/24 ondansetron 4 mg disintegrating 4 mg PO Q8H PRN nausea and 08/14/24 tablet vomiting #10 tabs Allergies Allergy/AdvReac Type Severity Reaction Status Date / Time aspirin [ASA] Allergy Intermediate RASH, Verified 09/30/24 15:27 nausea and vomiting ibuprofen [IBUPROFEN] Allergy Intermediate RASH Verified 09/30/24 15:27 nicotine Allergy Intermediate RASH FROM Verified 09/30/24 15:27 NICOTINE PATCH, nausea and vomiting ketorolac [From TORADOL] Allergy Mild RAPID HR Verified 09/30/24 15:27 AND HIVES haloperidol [From Haldol] Allergy Anaphylaxis Verified 09/30/24 15:27 metoclopramide [From Reglan] Allergy Unknown Verified 09/30/24 15:27 Review of Systems Review of Systems Yes all other systems are reviewed and are negative PMFSH Past Medical History Attestation statement: The following information was validated with the patient. Source: old records reviewed and nursing notes reviewed Medical History delivery delivered HTN (hypertension) Anemia Hypercholesteremia DVT (deep venous thrombosis) Kidney stones Surgical History Total knee replacement status Social History Social History Unable to assess alcohol history related to: Unknown Alcohol intake: never Patient Tobacco Use Status: Current everyday Tobacco user Smoked in Last 30 Days: No Use of substances other than those prescribed or required for medical reasons: No Advance Directives: No Advance Directives Information Provided: Yes Do you have a plan to hurt others: No Plan Patient : No Physical Exam ED Vital Signs: Vital Signs - 24 hr 09/30/24 15:23 09/30/24 15:23 09/30/24 16:23 Temperature 98.9 F 98.9 F 98.9 F Pulse Rate 66 66 66 Respiratory Rate 20 20 20 Blood Pressure 126/74 126/74 126/74 Pulse Oximetry 100 99 100 Oxygen Delivery Method Room Air Room Air Room Air BMI result Body Mass Index 26.6 vital signs stable General: Well appearing, in no acute distress. intermittently tearful. Skin: Warm, dry, intact. No rashes or lesions. Head: Normocephalic, atraumatic. EENT: Hearing is intact b/l. Conjunctiva clear. PERRLA. EOM intact. Moist mucous membranes.? Neck: Supple without LAD Cardiac: Chest wall symmetric. RRR Lungs: Normal respiratory effort without accessory muscle use. CTA bilaterally Abdomen: Soft, non-tender, non-distended. No rebound tenderness or guarding. Positive BS x4. bilateral cvat. Back: No midline spinous or paraspinal tenderness. No step off deformity. Ext: Upper and lower extremities atraumatic, without tenderness, deformity, swelling or erythema Neuro: AOx3. Normal speech. Ambulating with steady gait. Course Course Course Narrative: 7537 -- Patient states that she follows with urology/nephrology in [facility]. She can not recall the name of her doctor. She tells me that they recently diagnosed her with renal cancer and have plans for surgical excision in 2 weeks. I had the ED office secretary call over and request records from [facility] urology/nephrology. They state that they have not evaluated the patient in approximately 3 years. I have reviewed prior scans in our ED. 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 There were also multiple tiny bilateral renal calculi without evidence of obstruction. no other masses visualized. she was last evaluated by our urologist in 2020. > labs, UA, imaging pending 1619 -- bladder scan shows >145 cc. Patient states she has not voided since 7:00 a.m. today. She is refusing to provide us with a urine sample. tylenol ordered for pain. patient initially agreeable however quickly became agitated that she was not receiving anything stronger. I informed her that she had just received fentanyl en route to ED and that we are awaiting her work up results. > patient immediately dressed herself and requested to leave the ED AMA. she is choosing to leave without lab work/ UA/ imaging results. risks of leaving the ED without work up results discussed with patient. she verbalizes understanding. AMA paperwork signed. > at this time CBC without leukocytosis or left shift. There is normocytic anemia, stable when compared to priors. H&H above transfusion threshold. Chemistry without acute electrolyte abnormality requiring intervention. BUN slightly elevated to 19 with normal creatinine. Liver function at baseline. Lipase WNL. CTA/P pending. urine was never collected as patient did not provide a sample. Medical Decision Making Medical Decision Making [facility] Narrative: 58 year old female with pmhx significant for renal stones and chronic pain presents to the ED today via EMS from home for evaluation of left flank pain x3 days. Vital signs stable. Well-appearing and in no acute distress. Intermittently tearful. Abdomen is soft, nondistended, nontender to palpation. No rebound tenderness or guarding. There is bilateral CVAT. Differential diagnosis includes renal colic, nephrolithiasis, urinary tract infection, renal mass. Lower suspicion for obstructive uropathy. At this time, will obtain screening lab, urinalysis, bladder scan, and CT a/p. Records requested from [facility] nephrology/ urology. Medicated with Zofran and fentanyl prior to arrival in ED. Tylenol ordered. Differential Diagnosis Differential Diagnoses: The differential diagnosis associated with the presentation includes as above. Admission/Observation not indicated. Lab Data [facility] Lab Attestation statement: I reviewed the patient's lab results. as above. 09/30/24 15:40 09/30/24 15:40 Labs: Lab Results 09/30/24 Range/Units 15:40 WBC 5.2 (4.8-10.8) X10*3/uL RBC 4.16 L (4.20-5.50) X10*6/uL Hgb 11.3 L (12.0-16.0) g/dl Hct 34.6 L (37.0-47.0) % MCV 83.2 (80.0-98.0) fL MCH 27.2 (27.0-33.0) pg MCHC 32.7 (31.0-35.0) g/dl RDW 15.2 (11.0-16.0) % Plt Count 241 (160-400) X10*3/uL MPV 9.6 (9.4-12.3) fL Immature Gran % (Auto) 0.2 (0.0-0.4) % Neut % (Auto) 48.4 (45-73) % Lymph % (Auto) 43.7 H (20-40) % Tift % (Auto) 5.8 (2-11) % Eos % (Auto) 1.7 (0-4) % Baso % (Auto) 0.2 (0-2) % Lymph # (Auto) 2.3 (1.2-4.9) X10*3/uL Tift # (Auto) 0.3 (0.1-1.2) X10*3/uL Eos # (Auto) 0.1 (0.0-0.4) X10*3/uL Baso # (Auto) 0.0 (0.0-0.2) X10*3/uL Abs Immat Gran (auto) 0.01 (0.00-0.03) X10*3/uL Absolute Neuts (auto) 2.5 (2.0-8.3) x10*3/uL Absolute Nucleated RBC 0.000 (0.0-0.012) X10*3/uL Nucleated RBC % (auto) 0.0 (0.0-0.2) /100WBC Sodium 142 (135-145) mmol/L Potassium 3.7 (3.3-5.1) mmol/L Chloride 113 H (96-108) mmol/L Carbon Dioxide 21 L (22-29) mmol/L Anion Gap 12 (12-20) BUN 19 H (9-16) mg/dL Creatinine 0.64 (0.5-1.4) mg/dL Estim Creat Clear Calc 87.6 Estimated GFR > 60 Random Glucose 101 (60-115) mg/dL Calcium 8.5 (8.4-10.2) mg/dL Magnesium 1.9 (1.6-2.6) mg/dL Total Bilirubin 0.4 (0.0-1.0) mg/dL AST 29 (5-31) U/L ALT 14 (0-31) U/L Alkaline Phosphatase 87 (39-117) U/L Total Protein 6.8 (6.5-8.0) g/dL Albumin 4.0 (3.5-5.0) g/dL Lipase 17 (8-78) U/L Independent Historian Clinical information obtained from an independent historian. History obtained from or confirmed by: EMS External Record Review External record reviewed: Inpatient record, Office record, Outpatient record, Prior outpatient labs, Prior outpatient radiology, Primary care record and Outside ED record Prescription Management I considered prescription management with: Pain Medication Chronic Conditions Patient?s care impacted by: Hypertension Social Determinants Patient?s care significantly limited by Social Determinants of Health including: Other Social Determinant of Health Medications Administered Discontinued Medications Generic Name Dose Route Start Last Admin Trade Name Freq PRN Reason Stop Dose Admin Acetaminophen 975 mg 09/30/24 15:37 09/30/24 16:03 Acetaminophen 325 Mg Tablet PO 09/30/24 15:38 975 mg ONCE ONE Administration Critical Care Time Critical Care Time Critical Care Time: No Discharge Plan Discharge Clinical Impression: Left flank pain Patient Disposition: Left Against Medical Advice Instructions: Abdominal Pain (ED) Prescriptions: No Action quetiapine 25 mg tablet 1 tab PO BID PRN (Reason: anxiety) atorvastatin 10 mg tablet 1 tab PO DAILY polyvinyl alcohol [Artificial Tears (polyvin alc)] 1.4 % drops 1 drp ophthalmic (eye) TID ondansetron HCl 4 mg tablet 1 tab PO Q8H PRN (Reason: nausea) gabapentin 400 mg capsule 1 cap PO BEDTIME topiramate 25 mg tablet 1 tab PO BID clonidine HCl 0.2 mg tablet 1 tab PO BID PRN (Reason: panic attack) cyanocobalamin (vitamin B-12) 500 mcg tablet 1 tab PO DAILY ascorbic acid (vitamin C) 250 mg tablet 1 tab PO BID amlodipine 10 mg tablet 1 tab PO DAILY mirtazapine 30 mg tablet 1 tab PO BEDTIME mirtazapine 30 mg tablet 1 tab PO BEDTIME docusate sodium 100 mg capsule 1 - 2 cap PO BEDTIME PRN (Reason: constipation) gabapentin 100 mg capsule 1 cap PO TID PRN (Reason: anxiety) zolpidem 10 mg tablet 1 tab PO BEDTIME PRN (Reason: insomnia) albuterol sulfate [ProAir HFA] 90 mcg/actuation HFA aerosol inhaler 2 puff PO Q4-6H PRN (Reason: dyspnea) fluoxetine 20 mg capsule 3 cap PO QAM loratadine 10 mg tablet 1 tab PO DAILY loratadine 10 mg tablet 1 tab PO DAILY tramadol 50 mg tablet 50 mg PO Q8H PRN (Reason: pain) Qty: 3 0RF morphine 15 mg tablet 15 mg PO BID PRN (Reason: pain) Qty: 8 0RF cefuroxime axetil 250 mg tablet 250 mg PO BID 7 Days Qty: 14 0RF nitrofurantoin monohyd/m-cryst [Macrobid] 100 mg capsule 100 mg PO BID Qty: 14 0RF Rx Instructions: must administer with a meal/food phenazopyridine [Pyridium] 100 mg tablet 100 mg PO TID PRN (Reason: pain) Qty: 6 0RF sennosides [senna] 8.6 mg tablet 8.6 mg PO BEDTIME Qty: 14 0RF docusate sodium [Colace] 100 mg capsule 100 mg PO BID Qty: 20 0RF docusate sodium [Colace] 100 mg capsule 100 mg PO BID PRN (Reason: Constipation) Qty: 14 0RF ondansetron 4 mg tablet,disintegrating 4 mg PO Q6H Qty: 14 0RF nitrofurantoin monohyd/m-cryst [Macrobid] 100 mg capsule 100 mg PO BID 7 Days Qty: 14 0RF Rx Instructions: must administer with a meal/food cephalexin 500 mg capsule 500 mg PO Q8H 7 Days Qty: 21 0RF phenazopyridine [Pyridium] 200 mg tablet 200 mg PO TID PRN (Reason: pain) Qty: 6 0RF ondansetron 4 mg tablet,disintegrating 4 mg PO Q8H PRN (Reason: nausea and vomiting) Qty: 10 0RF cephalexin 500 mg capsule 500 mg PO BID Qty: 14 0RF ondansetron HCl 4 mg tablet 4 mg PO Q8H PRN (Reason: nausea and vomiting) Qty: 10 0RF tamsulosin [Flomax] 0.4 mg capsule 0.4 mg PO DAILY Qty: 6 0RF oxycodone 5 mg tablet 5 mg PO Q6H PRN (Reason: pain, moderate) Qty: 10 0RF Rx Instructions: Partial Fill upon patient request. ondansetron 4 mg tablet,disintegrating 4 mg PO Q8H PRN (Reason: nausea and vomiting) Qty: 10 0RF dicyclomine 10 mg capsule 10 mg PO BID Qty: 14 0RF cefdinir 300 mg capsule 300 mg PO BID 5 Days Qty: 10 0RF acetaminophen [Tylenol] 325 mg capsule 650 mg PO Q6H PRN (Reason: pain) Qty: 30 0RF Stand Alone Forms: Against Medical Advice Interventions: ED Discharge Assessment Last Done: 09/30/24 16:23 Discharge Date/Time: 09/30/24 16:27 Print Language: Occitan
[2024-09-30 15:45] LABS: MANUAL DIFF FLAG NO
[2024-09-30 15:50] LABS: Basophils Percent Auto 0.2 % (0-2); Eosinophils Absolute Auto 0.1 X10*3/uL (0.0-0.4); Eosinophils Percent Auto 1.7 % (0-4); Hematocrit 34.6 % (37.0-47.0); Hemoglobin 11.3 g/dl (12.0-16.0); Imm Gran Abs Auto 0.01 X10*3/uL (0.00-0.03); Imm Gran Pct Auto 0.2 % (0.0-0.4); Lymphocytes Absolute Auto 2.3 X10*3/uL (1.2-4.9); Lymphocytes Percent Auto 43.7 % (20-40); Mean Corpuscular HGB Conc 32.7 g/dl (31.0-35.0); Mean Corpuscular Hemoglobin 27.2 pg (27.0-33.0); Mean Corpuscular Volume 83.2 fL (80.0-98.0); Mean Platelet Volume 9.6 fL (9.4-12.3); Monocytes Absolute Auto 0.3 X10*3/uL (0.1-1.2); Monocytes Percent Auto 5.8 % (2-11); Neutrophils Absolute Auto 2.5 x10*3/uL (2.0-8.3); Neutrophils Percent Auto 48.4 % (45-73); Platelet Count 241 X10*3/uL (160-400); Red Blood Count 4.16 X10*6/uL (4.20-5.50); Red Cell Distribution Width 15.2 % (11.0-16.0); White Blood Count 5.2 X10*3/uL (4.8-10.8)
[2024-09-30] MEDS: Acetaminophen 325 MG TABLET 975 MG PO (16:03)
[2024-09-30 16:06] LABS: Alanine Aminotransferase 14 U/L (0-31); Anion Gap 12 (12-20); Aspartate Amino Transferase 29 U/L (5-31); Bilirubin Total 0.4 mg/dL (0.0-1.0); Blood Urea Nitrogen 19 mg/dL (9-16); Calcium 8.5 mg/dL (8.4-10.2); Carbon Dioxide 21 mmol/L (22-29); Chloride 113 mmol/L (96-108); Creatinine Clr Calc Pharmacy 87.6; Estimated Glomerular Filt Rate > 60; Glucose Random 101 mg/dL (60-115); Lipase 17 U/L (8-78); Magnesium 1.9 mg/dL (1.6-2.6); Potassium 3.7 mmol/L (3.3-5.1); Sodium 142 mmol/L (135-145); Total Protein 6.8 g/dL (6.5-8.0)
--- NOTE | 2024-09-30 16:06 | PC.NURSE ---
Informed MD about pt's bladder scan over >145, and asked pt. if she can provide u/a sample, pt. unable to provide at this time and informed RN that she is having anxiety, made MD aware at this time.
[2024-09-30 16:19] LABS: Alkaline Phosphatase 87 U/L (39-117)
[2024-09-30 16:23] VITALS: BP 126/74; PULSE 66; RESP 20; TEMP 37.2; O2SAT 100
--- NOTE | 2024-09-30 16:25 | PC.NURSE ---
Pt. signed AMA form, was informed what AMA meant and is still agreeing to leave, refusing to stay. made aware. Pt. informed that ER is not responsible for what happens to pt , if leaving. Pt. left with all belongings.
--- OUTSIDE RECORDS SUMMARY | 2024-09-30 17:30 | XMS_ITS | Encounter Summary ---
Author Organization [employer] Address [address] [facility] [address] [place] [address] Care Team Providers Care Flat Bed Knitter Name Role Phone Amber Quiroz MD Primary Care Provider [phone] Reason for Visit * Reason Onset Date Comments Nurse Triage 09/26/2024 Encounter Details Date Type Department Care Team ([facility] st Contact Info) Description 09/26/2024 Telephone [facility] [address] [place], [place] [phone] Amber Quiroz MD [address] [place], [place] [phone] Nurse Triage Social History Tobacco Use Types [...] t he electric, gas, oil or water [employer] threatened to shut off services in your [...] encounter Miscellaneous Notes * Telephone Encounter - Stacey Mathew RN - 09/26/2024 2:34 PM EDT Called pt. She states that yesterday she had an appt. With her Urologist yesterday. Pt. States she has a kidney stone. Pt. Is having increased pain and having a hard time urinating. Pt. States that Urologist states she may need surgery to remove stone. Pt. States she is having so much pain 04/11. Pt has been taking Tramadol with no relief. Pt. States that she thought Urologist, Dr. Shea , ? was going to send a stronger medication to her Pharmacy but there is nothing sent there. Pt. Also statesthat she has been calling the Urologist office but, she has not been able to get through. PCP is done for the day at [facility]. I advised pt. To try to get in touch with Urologist or if pain is intolerablewith Tramadol, to go to ED> Pt. Is in agreement with plan. No fever. Only small amounts of urinethroughout the day due to pain. No blood in urine but, pt. Is vomiting from the pain. Protocol Used: Flank Pain (Adult) Protocol-Based Disposition: Go to ED/[facility] Now (or to Office with PCP Approval) Video visit offer not recorded Positive Triage Questions: * Pain radiates into groin, scrotum * Pain or burning with passing urine (urination) * All higher-acuity triage questions were negative Care Advice Discussed: * Use Heat After 48 Hours for Pain * Continue Activity * Telephone Encounter - Albin Gamboa - 09/26/2024 2:30 PM EDT Symptom: Abdominal Pain - Female - Not Outcome: Schedule an urgent appointment (within 4 hours) or talk to a nurse or provider soon Reason: Fever The caller accepted this outcome. Contact pt at [phone] documented in this encounter Plan of Treatment Upcoming Encounters Date Type Department Care Team (Late st Contact Info) Description 10/01/2024 11:30 AM EDT Telemedicine [address] [address] 11/12/2024 1:30 PM EDT Office Visit [facility] [address] [place] [phone] Amber Quiroz MD [address] [place] [phone] documented as of this encounter Visit Diagnoses Not on filedocumented in this encounter Care Teams Flat Bed Knitter Relationship Specialty Start Date End Date Amber Quiroz MD [address] [place] [phone] PCP - General Family Medicine 07/03/18 documented as of this encounter
--- OUTSIDE RECORDS SUMMARY | 2024-09-30 17:30 | XMS_ITS | Clinical Summary ---
Author Organization [employer] Address [address] [facility] [address] [place] [address] Care Team Providers Care Dining Room Maid Name Role Phone Amber Quiroz MD Primary Care Provider [phone] Allergies Active Allergy Reactions Criticality Noted Date [...] DAY NEEDED FOR SEVERE ANXIETY 023 Active prazosin (Minipress) 1 MG capsule TOME BELINDA C PSULA TODOS LOS D AL ACOSTARSE 023 Active topiramate (Topamax) 25 MG tablet TOME BELINDA TABLETA DOS VECES AL D A 023 Active zolpidem (Ambien) 10 MG tablet TOME BELINDA TABLETA TODOS LOS D AL ACOSTARSE CUANDO SEA NECESARIO FOR INSOMNIA 023 Active loratadine (Claritin) 10 MG tabletIndications :Allergic rhinitis, unspecified seasonality, unspecified trigger Take 1 tablet (10 mg) by mouth Once per day. 90 tablet 3 024 Active naloxone (Narcan) 4 mg/0.1 mL nasal spray PLEASE SEE ATTACHED FOR DETAILED DIRECTIONS 024 Active ondansetron ODT (Zofran-ODT) 4 MG disintegrating tablet TOME BELINDA TABLETA POR V A ORAL CADA OCHO HORAS CUANDO SEA NECESARIO FOR NAUSEA 024 Active potassium chloride ER (Micro-K) 10 MEQ ER capsule TOME BELINDA C PSULA TODOS LOS D POR 7 D 023 Active ondansetron (Zofran) 4 MG tabletIndications :Nausea [...] EVERY DAY 90 tablet 1 025 Active Advair Diskus 500-50 MCG/ACT aerosol powder INHALE 1 PUFF BY MOUTH TWICE DAILY 60 each 5 025 Active gabapentin (Neurontin) 300 MG capsule TAKE 1 CAPSULE BY MOUTH TWICE A DAY AM & AFTERNOON 025 Active Melatonin 10 MG capsule TOME 1 C PSULA POR V A ORAL TODOS LOS D AL ACOSTARSE 025 Active mirtazapine (Remeron) 45 MG tablet TOME 1 TABLETA POR V A ORAL TODOS LOS D AL ACOSTARSE 025 Active traMADol (Ultram) 50 MG tabletIndications :Nephrolithiasis TAKE 1 TABLET BY MOUTH EVERY 8 HOURS NEEDED FOR SEVERE PAIN 15 tablet 025 Active albuterol (Ventolin HFA) 108 (90 Base) MCG/ACT inhalerIndication s:Moderate persistent asthma without complication INHALE 2 PUFFS BY MOUTH EVERY 4 TO 6 HOURS OR DIFFICULTY BREATHING. DO NOT EXCEED FOUR TIMES DAILY. 18 g 025 Active mirtazapine (Remeron) 30 MG tablet TOME BELINDA TABLETA TODOS LOS D AL ACOSTARSE 023 2024 Discontinued QUEtiapine (SEROquel) 100 MG tablet TOME BELINDA TABLETA TODOS LOS D AL ACOSTARSE 023 2024 Discontinued(M ed list cleanup (will not trigger notification to Pharmacy)) lisinopril 10 MG tabletIndications :Essential hypertension TAKE 1 TABLET BY MOUTH EVERY DAY IN THE MORNING 90 tablet 2024 Discontinued Fluticasone-Salme terol (Advair Diskus) 500-50 MCG/ACT aerosol powder Inhale 1 puff 2 times daily. 60 each 5 024 2024 Discontinued melatonin 5 MG tablet Take 2 tablets by mouth at bedtime. 2024 Discontinued cefpodoxime (Vantin) 100 MG tablet TOME BELINDA TABLETA CADA 12 HORAS POR 5 D 2024 Discontinued(M ed list cleanup (will not trigger notification to Pharmacy)) oxyCODONE (Oxy-IR) 5 MG immediate release capsule TAKE 1 CAPSULE BY MOUTH EVERY 8 HOURS NEEDED FOR PAIN 2024 Discontinued(M ed list cleanup (will not trigger notification to Pharmacy)) traMADol (Ultram) 50 MG tablet TOME 1 TABLETA POR V A ORAL CADA 12 HORAS 024 2024 Discontinued(R eorder (will not trigger notification to Pharmacy)) albuterol (Ventolin HFA) 108 (90 Base) MCG/ACT inhalerIndication s:Moderate persistent asthma without complication INHALE 2 PUFFS BY MOUTH EVERY 4 TO 6 HOURS NEEDED DIFFICULTY BREATHING NO MORE THAN FOUR TIMES DAILY 18 g 024 2024 Discontinued traMADol (Ultram) 50 MG tabletIndications :Nephrolithiasis Take 1 tablet (50 mg) by mouth every 8 (eight) hours if needed for severe pain. 15 tablet 025 2024 Discontinued Active Problems Patient Care Coordination No te Formatting of this note migh t be different from the original. 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 Most recent CT scan was in 2024 - They found a very small kidney stone and a 1.3 cm cyst on her right kidney. - Pt was advised to reschedule her appointment with urologist 09/03/24 - Prescribed traMADol (Ultram) 50 MG tablet 09/03/24 Loin pain hematuria syndrome 05/04/202308/2022 Assessment & Plan (09/10/2024 11:49 AM EDT): - Discussed about judicious use of pain medication - Discussed about the importance of keeping appointment with urologist - Agreed to prescribe tramadol to be used for severe pain Anxiety 03/22/2023 CP (chronic pancreatitis) 03/22/2023 Delivery by elective section 03/22/2023 H/O tubal ligation 03/22/2023 Cobalamin deficiency 11/07/2018 History of total knee arthroplasty 03/19/2018 Dyslipidemia 07/13/2016 Osteoarthritis of knee 07/13/2016 Essential hypertension 09/16/2015 Assessment & Plan (09/10/2024 12:04 PM EDT): -Goal BP < 140/90 per JNC-8, < 130/80 per ACC/AHA guideline (Tx threshold > 140/90) -Continue Amlodipine 10 mg daily. (Prazosin for mood disorder). -Previously prescribed lisinopril 10 mg daily -Continue working on lifestyle modification. -Continue checking home BP -Follow up in 2-3 weeks for BP check with our nurse. If home BP is persistently elevated (SBP > 130) or clinic SBP > 140, will add telmesartan. 20 mg daily or valsartan 40 mg daily. Assessment & Plan (11/30/2023 8:30 AM EDT): [...] Impaired fasting glucose 06/05/2012 Mood disorder 06/05/2012 Assessment & Plan (09/10/2024 11:59 AM EDT): - behavioral health service provider: Dr. Gordon. Patient has a therapist. - current Dx is unknown: depression; anxiety ; PTSD; panic attack; history of NTAY; bipolar - continue keeping appointments with behavioral health service provider and following their treatment plan - currently prescribed medications: gabapentin, melatonin; topiramate; mirtazapine; fluoxetine; clonazepam; zolpidem; prazosin Panic disorder without agoraphobia 12/26/2011 Resolved Problems Problem Noted Date Diagnosed Date Resolved Date Hyperlipidemia 04/01/2024 09/10/2024 Encounters Date Type Department Care Team Description 09/26/2024 Telephone [facility] [address] [place] [phone] Amber Quiroz MD Nurse Triage 09/25/2024 Refill [facility] [place] [address] Amber Quiroz MD Moderate persistent asthma without complication 09/25/2024 Telephone [facility] [place] [address] Amber Quiroz MD Care Management (C3- initial assessment/ enrollment #2. lvm) 09/24/2024 Patient Outreach [facility] [place] [phone] Amber Quiroz MD Care Coordination (CM/CHW appt reminder) 09/20/2024 Refill [facility] [place] [address] Amber Quiroz MD Nephrolithiasis 09/13/2024 Population Health Risk Score [facility] () [address] [phone] Provider, Population Health Generic 09/05/2024 Telephone [facility] [place] [phone] 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, RN Results 09/04/2024 Orders Only [facility] [place] [address] Amber Quiroz MD Routine screening for STI (sexually transmitted infection) (Primary Dx) 09/04/2024 Patient Outreach [facility] [place] [address] Amber Quiroz MD Care Coordination (CM/CHW outreach) 09/04/2024 Refill [facility] [place] [address] Amber Quiroz MD 09/03/2024 3:00 PM EST Office Visit [facility] [place] [phone] Amber Quiroz MD Loin pain hematuria syndrome (Primary Dx); Essential hypertension; Kidney stones; Nephrolithiasis; Mood disorder (CMS/HCC); Dyslipidemia; Encounter for immunization; Dietary counseling; Exercise counseling; Overweight; Panic disorder without agoraphobia; Anxiety; Iron deficiency anemia, unspecified iron deficiency anemia type 09/03/2024 Telephone [facility] [address] [place] [phone] Amber Quiroz MD Appointment Request 09/03/2024 Travel 08/29/2024 Refill [facility] [address] [place] [phone] Amber Quiroz MD 08/28/[address] [address] Shellie Eric MA chart prep 08/28/2024 Patient Outreach [address] [address] Amber Quiroz MD Care Coordination (CM/CHW outreach) 08/26/[address] [address] Amber Quiroz MD Nurse Triage 08/25/2024 Refill [facility] [address] [place], [place] [phone] Amber Quiroz MD Pain 08/21/[address] [address] Amber Quiroz MD Nurse Triage 08/15/2024 Patient Outreach [address] [address] Amber Quiroz MD Care Coordination (CM/CHW outreach) 08/15/[address] [address] Marixa Eric RN Care Management (C3- chart review) 08/15/2024 Refill [facility] [address] [place] [phone] Amber Quiroz MD Nausea 08/14/2024 Orders Only GENERIC EXTERNAL DATA DEPARTMENT Provider, Generic External Data 07/16/2024 Telephone [facility] [address] [place] [phone] Amber Quiroz MD Nurse Triage 07/15/2024 Orders Only GENERIC EXTERNAL DATA DEPARTMENT Provider, Generic External Data from Last 3 Months Immunizations Name Administration [...] 10/01/2024 11:30 AM EDT Telemedicine [facility] [address] [place] [phone] 11/12/2024 1:30 PM EDT Office Visit [facility] [address] [place] [phone] Amber Quiroz MD [address] [place] [phone] Health Maintenance Due Date Last Done Comments CT Colonography 1965 Depression Screening 1965 FIT DNA/Cologuard 1965 FIT 1965 FOBT 1965 HIV Screening 1965 Sigmoidoscopy 1965 Hepatitis C Screening 1982 Mammogram 2004 Colonoscopy 07/31/2021 Colorectal Cancer Screening 07/31/2021 Colposcopy 07/31/2021 Zoster Vaccines (2 of 2) 05/29/2023 04/03/2023 COVID-19 Vaccine ( - season) 2024 08/10/2021, 02/19/2021, 01/29/2021 Pap Smear 07/30/2024 07/30/2021 SDOH Screening 02/26/2025 02/27/2024 Alcohol/Substance Use Screening 09/03/2025 09/03/2024 Tobacco Screening 09/10/2025 09/10/2024 Cervical Cancer Screening 07/30/2026 HPV/Cotest 07/30/2026 07/30/2021, [...] Procedure Name Priority Date/Time Associated Diagnosis Comments AMB REFERRAL TO UROLOGY Urgent 09/25/2024 Nephrolithiasis PATHOLOGIST REVIEW - CBC Routine 09/03/2024 4:26 PM EST Iron deficiency anemia, unspecified iron deficiency anemia type VITAMIN B12/FOLATE, SERUM PANEL Routine 09/03/2024 4:26 [...] Recently Relevant to Health Maintenance Results * Referral to Urology (09/25/2024) us Amber Quiroz MD OUTPATIENT REFERRAL ORDERABLES F inal Result * Pathologist Review - CBC (09/03/2024 4:26 PM EST) Pathologist Review - CBC SEE NOTE [facility] Comment:Normochromic normocy tic anemia; white blood cells are mildlydecreased in number, but otherwise normal appearing.- Ray Viera M.D. Pathology Blood Venous blood specimen / Unknown 09/03/2024 4:26 PM EST 09/03/2024 6:14 PM EST Amber Quiroz MD LAB BLOOD ORDERABLES Final Resul t [facility] [address] [place] [phone] * Vitamin B12/Folate, Serum Panel (09/03/2024 4:26 PM EST) Vitamin B12 247 200 - 900 pg/mL [facility] Comment:NORMAL 200-900 PG/ML INDETERMINATE 160-199 PG/ML DEFICIENT < 160 PG/ML Folate 9.9 > or = 4.0 ng/mL [facility] Comment:Reference Values:> o r = 4.0 ng/mL< 4.0 ng/mL suggests folate deficiency Methotrexate, aminopterin and folinic acid(leucovorin) are chemotherapeutic agents whose molecularstructures are similar to folate; therefore, the Architectfolate assay cannot be used for patients using these drugs. 09/03/2024 4:26 PM EST 09/03/2024 6:14 PM EST us Amber Quiroz MD LAB BLOOD ORDERABLES Final Resul t Performing Organization Address City/[facility]/ZIP Co de Phone Number [facility] [address] [place] [phone] * TSH with Reflex to Free T4 (09/03/2024 4:26 PM EST) TSH reflex Free T4 1.08 0.32 - 4.0 uIU/mL [facility] Blood 09/03/2024 4:26 PM EST 09/03/2024 6:14 PM EST Amber Quiroz MD LAB BLOOD ORDERABLES Final Resul t Performing Organization Address City/[facility] Co de Phone Number [facility] [address] [place] [phone] * (ABNORMAL) Lipid Panel with Reflex to Direct LDL (09/03/2024 4:26 PM EST) Triglycerides 112 <150 mg/dL [facility] Comment:Desirable Triglyceri de: less than 150 mg/dLBorderline High Triglyceride 150-199 mg/dLHigh Triglyceride: 200-499 mg/dLVery High Triglyceride: greater than or equal to 5OO mg/dL Cholesterol 183 <200 mg/dL [facility] Comment:Desirable Cholestero l: less than 200 mg/dLBorderline High Cholesterol: 200-239 mg/dLHigh Cholesterol: greater than 239 mg/dL LDL Cholesterol Calculated 112(H) <100 mg/dL [facility] Comment:Desirable LDL: less than 100 mg/dLNear Optimal/Above Optimal LDL: 110- 129 mg/dLBorderline High LDL: 130-159 mg/dLHigh LDL: 160-189 mg/dLVery High LDL: greater than or equal to 190 mg/dL HDL Cholesterol 49 >40 mg/dL [facility] Comment:Desirable HDL: great er than 40 mg/dL Note: This HDL assay may give artificially low results in patients with liver disease. Blood 09/03/2024 4:26 PM EST 09/03/2024 6:14 PM EST us Abmer Quiroz MD LAB BLOOD ORDERABLES Final Resul t [facility] [address] [place] [phone] * (ABNORMAL) CBC auto differential (09/03/2024 4:26 PM EST) White Blood Count 4.3(L) 4.8 - 10.8 X10*3/uL [facility] Red Blood Count 4.34 4.20 - 5.50 X10*6/uL [facility] Hemoglobin 11.4(L) 12.0 - 16.0 g/dl [facility] Hematocrit 35.9(L) 37.0 - 47.0 % [facility] Mean Corpuscular Volume 82.7 80.0 - 98.0 fL [facility] Mean Corpuscular Hemoglobin 26.3(L) 27.0 - 33.0 pg [facility] Mean Corpuscular HGB Conc 31.8 31.0 - 35.0 g/dl [facility] Red Cell Distribution Width 15.3 11.0 - 16.0 % [facility] Platelet Count 277 160 - 400 X10*3/uL [facility] Mean Platelet Volume 10.5 9.4 - 12.3 fL [facility] Neutrophils Percent Auto 46.0 45 - 73 % [facility] Imm Gran Pct Auto 0.2 0.0 - 0.4 % [facility] Lymphocytes Percent Auto 45.1(H) 20 - 40 % [facility] Monocytes Percent Auto 6.8 2 - 11 % [facility] Eosinophils Percent Auto 1.4 0 - 4 % [facility] Basophils Percent Auto 0.5 0 - 2 % [facility] NRBC Pct Auto 0.0 0.0 - 0.2 /100WBC [facility] Neutrophils Absolute Auto 2.0 2.0 - 8.3 x10*3/uL [facility] Imm Gran Abs Auto 0.01 0.00 - 0.03 X10*3/uL [facility] Lymphocytes Absolute Auto 1.9 1.2 - 4.9 X10*3/uL [facility] Monocytes Absolute Auto 0.3 0.1 - 1.2 X10*3/uL [facility] Eosinophils Absolute Auto 0.1 0.0 - 0.4 X10*3/uL [facility] Basophils Absolute Auto 0.0 0.0 - 0.2 X10*3/uL [facility] NRBC Abs Auto 0.000 0.0 - 0.012 X10*3/uL [facility] Blood Venous blood specimen / Unknown 09/03/2024 4:26 PM EST 09/03/2024 6:14 PM EST Amber Quiroz MD LAB BLOOD ORDERABLES Final Resul t Performing Organization Address [facility] de Phone Number [facility] [address] [place] [phone] * Iron And Total Iron Binding Capacity (09/03/2024 4:26 PM EST) [facility] Iron 69 30 - 160 mcg/dL [facility] Comment:Slight Hemolysis.Int erpret result with caution. Total Iron Binding Capacity 250 228 - 428 mcg/dL [facility] Percent Iron Saturation 28 15 - 50 % [facility] Unsaturated Iron Binding 181 ug/dL [facility] Blood Venous blood specimen / Unknown 09/03/2024 4:26 PM EST 09/03/2024 6:14 PM EST Amber Quiroz MD LAB BLOOD ORDERABLES Final Resul t Performing Organization Address [facility] Co de Phone Number [facility] [address] [place] [phone] * Hemoglobin A1c (09/03/2024 4:26 PM EST) [facility] Hemoglobin A1c 5.6 <6.0 % [facility] Comment:Hemoglobin A1C Refer ence Range Adults: 4.8 - 6.0 % Non diabetic: < 6.0 % Goal: < 7.0 %Additional Action Suggested: > 8.0 %Note: Hemoglobin A1c results are invalid for patients with abnormal amounts of HbF. Blood transfusions may impact the HbA1c concentration in the patient sample. Estimated Average Glucose 114 mg/dL [facility] Comment:eAG = Estimated ave rage glucose which is %A1C expressed asaverage glucose, using the formula of the H3N-WonberaUcfhrvv Glucose study (ADAG), Diabetes Care, Vol.31,#8,2007 Blood Venous blood specimen / Unknown 09/03/2024 4:26 PM EST 09/03/2024 6:14 PM EST Amber Quiroz MD LAB BLOOD ORDERABLES Final Resul t Performing Organization Address [facility] de Phone Number [facility] [address] [place] [phone] * Ferritin (09/03/2024 4:26 PM EST) [facility] Ferritin 51 10 - 250 ng/mL [facility] Blood Venous blood specimen / Unknown 09/03/2024 4:26 PM EST 09/03/2024 6:14 PM EST Amber Quiroz MD LAB BLOOD ORDERABLES Final Resul t Performing Organization Address [facility] de Phone Number [facility] [address] [place] [phone] * (ABNORMAL) Comprehensive Metabolic Panel (09/03/2024 4:26 PM EST) [facility] Sodium 143 135 - 145 mmol/L [facility] Potassium 3.9 3.3 - 5.1 mmol/L [facility] Comment:Slight Hemolysis.Int erpret result with caution. Chloride 111(H) 96 - 108 mmol/L [facility] Carbon Dioxide 23 22 - 29 mmol/L [facility] Anion Gap 13 12 - 20 [facility] Urea Nitrogen (BUN) 15 9 - 16 mg/dL [facility] Creatinine, Serum 0.66 0.5 - 1.4 mg/dL [facility] Estimated Glomerular Filt Rate >60 [facility] Comment:Chronic Kidney Disea se: Estimated GFR < 60 mL/min/1.01o3Jyncwk Kidney Disease: Estimated GFR < 15 mL/min/1.73m2 Glucose 91 60 - 115 mg/dL [facility] Calcium 8.6 8.4 - 10.2 mg/dL [facility] Bilirubin, Total 0.4 0.0 - 1.0 mg/dL [facility] Aspartate Amino Transferase 28 5 - 31 U/L [facility] Comment:Slight Hemolysis.Int erpret result with caution. Alanine Aminotransferase 11 0 - 31 U/L [facility] Total Protein 8.0 6.5 - 8.0 g/dL [facility] Albumin Level 4.4 3.5 - 5.0 g/dL [facility] Alkaline Phosphatase 87 39 - 117 U/L [facility] Blood Venous blood specimen / Unknown 09/03/2024 4:26 PM EST 09/03/2024 6:14 PM EST us Amber Quiroz MD LAB BLOOD ORDERABLES Final Resul t [facility] [address] [place] [address] [phone] * Urinalysis w/reflex microscopic (08/14/2024 11:57 AM EST) Color Urine Yellow [facility] Appearance Urine Clear [facility] PH 7.0 5.0 - 9.0 [facility] Glucose Urine UA Negative Negative mg/dL [facility] Urine Blood Negative Negative [facility] Specific [place] - Urine 1.015 1.005 - 1.025 [facility] Urine Protein Negative Neg-Trace mg/dL [facility] Urine Ketones Negative Negative mg/dL [facility] Nitrite Urine Negative Negative [facility] Leukocyte Esterase Urine Negative Negative [facility] 08/14/2024 11:5 7 AM EST 08/14/2024 12:00 PM EST Narrative [facility] - 08/14/2024 12:07 PM EST Urine, Clean Catch us Generic External Data Provider LAB URINE ORDERAB LES Final Result [facility] [address] [place] [phone] * CT Abdomen Pelvis w/o Contrast (08/14/2024 10:31 AM EST) Only the most recent of2 resultswithin the time period is included. Anatomical Region Laterality Modality Body, Pelvis, Abdomen Computed T omography 08/14/2024 10:3 1 AM EST Narrative 08/14/2024 11:34 AM EST ? [facility] ?[address] ?[place] [address] ? CT Scan Report ? Signed ? Patient: John Mraquez ?MR#: [id number] ?? [id number] ? : 1965 ?Acct:[id number] ? Age/Sex: 58 / F ?ADM Date: 08/14/24 ? Loc: HO.ED ? Attending Dr: ? Ordering Physician: Radha Crowder NP ?? Date of Service: 08/14/24 ?? Procedure(s): CT abdomen pelvis wo IV con ?? Accession Number(s): [id number] ? cc: Amber Quiroz MD; Radha Crowder NP ? Report Number: ?? [id number]: Total DLP = ??365.00 mGy-cm ?? EXAMINATION: [...] signed by Misha Curtis MD in OV> ?08/14/241 ? DD/ 1031 ? TD/TT: 08/14/24 1104 ? Petroleum Inspector Supervisor: ? Procedure Note [facility], Image - 08/14/[address] [place] [address] [address] Scan Report Signed Patient: Heidi Marquez#: [id number] : 1965Acct:[id number] Age/Sex: 58 / FADM Date: 08/14/24 Loc: HO.ED Attending Dr: Ordering Physician: Radha Crowder NP Date of Service: 08/14/24 Procedure(s): CT abdomen pelvis wo IV con Accession Number(s): [id number] cc: Amber Quiroz MD; Radha Crowder NP Report Number: [id number]: Total DLP = 365.00 mGy-cm EXAMINATION: CT [...] 08/14/24 1131 DD/ 1031 TD/TT: 08/14/24 1104 Petroleum Inspector Supervisor: [facility] External Provider IMG CT PROCEDURES Final Result * Blood Culture (First) (07/15/2024 6:09 PM EST) Blood Venous blood specimen / Unknown 07/15/2024 6:09 PM EST 07/15/2024 6:14 PM EST Comment:[facility] - 07/20/2024 8:14 PM EST Blood Culture (First) No growth after 5 days. Specimen Source: Blood us Generic External Data Provider LAB MICROBIOLOGY - GENERAL ORDERABLES Final Result Performing Organization Address [facility]/ZIP Co de Phone Number [facility] [address] [place] [phone] * Blood Culture (Second) (07/15/2024 6:09 PM EST) Blood Venous blood specimen / Unknown 07/15/2024 6:09 PM EST 07/15/2024 6:14 PM EST Comment:[facility] - 07/20/2024 8:14 PM EST Blood Culture (Second) No growth after 5 days. Specimen Source: Blood Generic External Data Provider LAB MICROBIOLOGY - GENERAL ORDERABLES Final Result Performing Organization Address [facility] Co de Phone Number [facility] [address] [place] [phone] * Culture, Urine, Routine (07/15/2024 5:00 PM EST) Urine Urine specimen obtained by clean catch procedure / Unknown 07/15/2024 5:00 PM EST 07/15/2024 5:00 PM EST Comment:[facility] - 07/17/2024 10:40 AM EST Urine Culture Report Result Urine Culture 10,000 to 50,000 cfu/ml Urine Culture Mixed bacterial geovanny characteristic of Urine Culture urogenital contamination. Specimen Source: Urine clean catch Generic External Data Provider LAB MICROBIOLOGY - GENERAL ORDERABLES Final Result Performing Organization Address [facility] Co de Phone Number [facility] [address] [place] [phone] * (ABNORMAL) Urinalysis, Complete, with Reflex to Culture (07/15/2024 4:36 PM EST) Color Urine Other(A) [facility] Appearance Urine Hazy [facility] PH 5.5 5.0 - 9.0 [facility] Glucose Urine UA Negative Negative mg/dL [facility] Urine Blood Large (3+)(A) Negative [facility] Specific [place] - Urine 1.025 1.005 - 1.025 [facility] Urine Protein 100 (2+)(A) Neg-Trace mg/dL [facility] Urine Ketones Negative Negative mg/dL [facility] Nitrite Urine Positive(A) Negative [facility] Leukocyte Esterase Urine Negative Negative [facility] RBC Urine >20(A) 0 - 2 /HPF [facility] Urine WBC 0-5 0 - 5 /HPF [facility] Urine Squamous Epithelial Cell 3-5 0 - 2 /HPF [facility] Urine Bacteria None Seen None Seen [facility] Hyaline Casts, Urine 0-2 0 - 2 /LPF [facility] 07/15/2024 4:36 PM EST 07/15/2024 4:49 PM EST Narrative [facility] - 07/15/2024 4:59 PM EST [id number], Clean Catch us Generic External Data Provider LAB URINE ORDERAB LES Final Result Performing Organization Address [facility]/State/[facility] Co de Phone Number [facility] [address] [place] [phone] * (ABNORMAL) THINPREP TIS PAP AND HPV mRNA E6/E7 WITH REFLEX TO HPV 16,18/45 (07/30/2021 10:17 AM EST) Clinical Information: PM [facility] COMMENT SEE COMMENT [facility] Director Data Architecture: SEE COMMENT [facility] Comment: [facility], CT(ASCP) CT screening location: [address] ??[phone] General Categorization: EPITHELIAL CELL ABNORMALITY(A ) [facility] HPV nRNA E6/E7 Not Detected Not Detected [facility] Comment: Methodology: Parts Facilitator-Mediated Amplification This assay detects E6/E7 viral messenger RNA (mRNA) from 14 high-risk HPV types (16,18,31,33,35,39,45,51,52,56,58,59,66,68). ? The analytical performance characteristics of this assay have been determined by [employer]. The modifications have not been cleared or approved by the FDA. This assay has been validated pursuant to the CLIA regulations and is used for clinical purposes. ?? For additional information, please refer to http://education.[employer]/faq/DRC219y1 (This link if provided for information/ educational [...] N LAB SYSTEM PATHOLOGIST: SEE COMMENT FOUND [facility] Comment: Jennifer Branch M.D., Board Certified in Anatomic and Clinical Pathology (electronic signature) Consulting Pathologist [facility] [phone] Prev. BX: NONE GIVEN [facility]OUND[facility] N LAB SYSTEM Prev. PAP: NONE GIVEN [facility]OUND[facility] ON LAB SYSTEM SOURCE: None given [facility] N LAB SYSTEM Statement Of Adequacy: SEE COMMENT [facility] Comment: Satisfactory for evaluation. Endocervical/transformation zone component present. 07/30/2021 10:1 7 AM EST us Saleem Maier MD LAB PATHOLOGY ORDERABLES Final R esult [facility] [address] from Last 3 Months or Most Recently Relevant to Health Maintenance Insurance [facility] C3 Care Teams Dining Room Maid Relationship Specialty Start Date End Date Amber Quiroz MD [address] [place] [phone] PCP - General Family Medicine 07/03/18
--- OUTSIDE RECORDS SUMMARY | 2024-09-30 17:30 | XMS_ITS | Encounter Summary ---
Author Organization [employer] Address [address] [facility] 7t [place] [address] Care Team Providers Care Wooden Box Maker Name Role Phone Amber Quiroz MD Primary Care Provider [phone] Reason for Visit * Reason Onset Date Comments Appointment Request 11/22/2023 Encounter Details Date Type Department Care Team ([facility] st Contact Info) Description 11/22/2023 Telephone [facility] [address] [place], [place] [phone] Amber Quiroz MD [address] [place], [place] [phone] Appointment Request Social History Tobacco Use Types [...] due tosleep difficulty. Please contact pt at [phone]. documented in this encounter Plan of Treatment Upcoming Encounters Date Type Department Care Team (Late st Contact Info) Description 10/01/2024 11:30 AM EDT Telemedicine [facility] [address] [place] [address] 11/12/2024 1:30 PM EDT Office Visit [facility] [address] [place] [address] Amber Quiroz MD [address] [place] [phone] documented as of this encounter Visit Diagnoses Not on filedocumented in this encounter Care Teams Wooden Box Maker Relationship Specialty Start Date End Date Amber Quiroz MD [address] [place] [phone] PCP - General Family Medicine 07/03/18 documented as of this encounter
--- OUTSIDE RECORDS SUMMARY | 2024-09-30 17:30 | XMS_ITS | Encounter Summary ---
Author Organization [employer] Address [address] 7t [place] [address] Care Team Providers Care Supervisor Mattress And Boxsprings Name Role Phone Amber Quiroz MD Primary Care Provider [phone] Encounter Details Date Type Department Care Team (Late st Contact Info) Description 12/12/2023 Orders Only [facility] [address] [place], [place] [phone] Amber Quiroz MD [address] [place], [place] [phone] Nephrolithiasis (Primary Dx) Social History Tobacco Use [...] Info) Description 10/01/2024 11:30 AM EDT Telemedicine [facility] [address] [place] [address] 11/12/2024 1:30 PM EDT Office Visit [facility] [address] [place] [address] Amber Quiroz MD [address] [place] [phone] documented as of this encounter Visit Diagnoses Diagnosis Nephrolithiasis- Primary Calculus of kidney documented in this encounter Care Teams Supervisor Mattress And Boxsprings Relationship Specialty Start Date End Date Amber Quiroz MD [address] [place] [phone] PCP - General Family Medicine 07/03/18 documented as of this encounter
--- OUTSIDE RECORDS SUMMARY | 2024-09-30 17:30 | XMS_ITS | Encounter Summary ---
Author Organization [employer] [facility] Address [address] [facility] 7t [place] [address] Care Team Providers Care Sheriffs Officer Name Role Phone Amber Quiroz MD Primary Care Provider [phone] Encounter Details Date Type Department Care Team (Late st Contact Info) Description 07/28/2022 Orders Only [facility] [address] [place] [phone] Anabell Martinez LPN Social History Tobacco Use [...] Info) Description 10/01/2024 11:30 AM EDT Telemedicine [address] [address] 11/12/2024 1:30 PM EDT Office Visit [address] [phone] Amber Quiroz MD [address] [place] [address] documented as of this encounter Procedures Procedure [...] (08/02/2022 12:29 AM EST) Color Urine Yellow [facility] Appearance Urine Turbid [facility] PH 6.5 5.0 - 9.0 [facility] Glucose Urine UA Negative Negative mg/dL [facility] Urine Blood Trace(A) Negative [facility] Specific [place] - Urine 1.020 1.005 - 1.025 [facility] Urine Protein 30 (1+)(A) Neg-Trace mg/dL [facility] Urine Ketones Negative Negative mg/dL [facility] Nitrite Urine Negative Negative [facility] Leukocyte Esterase Urine Large (3+)(A) Negative [facility] RBC Urine 0-2 0 - 2 /HPF [facility] Urine WBC >50(A) 0 - 5 /HPF [facility] Urine Squamous Epithelial Cell 6-10 0 - 2 /HPF [facility] Urine Bacteria 1+ None Seen [facility] Hyaline Casts, Urine 3-5 0 - 2 /LPF [facility] 08/02/2022 12:2 9 AM EST 08/02/2022 12:31 AM EST Narrative [facility] - 08/02/2022 12:50 AM EST Urine, Clean Catch us [facility] External Provider LAB URI NE ORDERABLES Final Result [facility] [address] [place] [address] [phone] * SARS-CoV-2 RNA, Influenza A/B, and RSV RNA, Ql NAAT (08/02/2022 12:17 AM EST) Influenza A PCR NEGATIVE Negative [facility] Influenza B PCR NEGATIVE Negative [facility] Resp Syncy Virus RNA Qual PCR NEGATIVE Negative [facility] SARS COV2 PCR NEGATIVE Negative [facility] SARS/Flu/RSV Note See Note [facility] Comment:All test results mus t be [...] use by authorized laboratories.Testing performed on the [employer] GeneXpert utilizingreal-time RT-PCR.All SARS CoV2 and positive influenza A/B results arereported to [facility]. 08/02/2022 12:1 7 AM EST 08/02/2022 12:19 AM EST us [facility] Exter nal Provider LAB MICROBIOLOGY - GENERAL ORDERABLES Final Result [facility] [address] [place] [phone] * (ABNORMAL) Basic Metabolic Panel (08/02/2022 12:17 AM EST) Sodium 140 135 - 145 mmol/L [facility] Potassium 3.9 3.3 - 5.1 mmol/L [facility] Chloride 105 96 - 108 mmol/L [facility] Carbon Dioxide 24 22 - 29 mmol/L [facility] Anion Gap 15 12 - 20 [facility] Urea Nitrogen (BUN) 14 9 - 16 mg/dL [facility] Creatinine, Serum 0.75 0.5 - 1.4 mg/dL [facility] Creatinine Clr Calc Pharmacy 71.4 [facility] Comment:Provided height and weight: 162.56 cm,63.503 kg.eGFR (calculated from the MDRD study equation) and eCrCl(calculated from the Cockcroft-Gault equation) are based ondifferent parameters and may not yield comparable results.If eCrCl result is absurd, please check patient'sheight/weight. Estimated Glomerular Filt Rate >60 [facility] Comment:NOTE: For -Am erican individuals, multiply the result by 1.210.Chronic Kidney Disease: Estimated GFR < 60 mL/min/1.45o5Xuiuat Kidney Disease: Estimated GFR < 15 mL/min/1.73m2 Glucose 119(H) 60 - 115 mg/dL [facility] Calcium 9.0 8.4 - 10.2 mg/dL [facility] 08/02/2022 12:1 7 AM EST 08/02/2022 12:19 AM EST us [facility] External Provider LAB BLO OD ORDERABLES Final Result [facility] [address] [place] [phone] * (ABNORMAL) CBC auto differential (08/02/2022 12:17 AM EST) White Blood Count 6.4 4.8 - 10.8 X10*3/uL [facility] Red Blood Count 3.96(L) 4.20 - 5.50 X10*6/uL [facility] Hemoglobin 10.8(L) 12.0 - 16.0 g/dl [facility] Hematocrit 33.0(L) 37.0 - 47.0 % [facility] Mean Corpuscular Volume 83.3 80.0 - 98.0 fL [facility] Mean Corpuscular Hemoglobin 27.3 27.0 - 33.0 pg [facility] Mean Corpuscular HGB Conc 32.7 31.0 - 35.0 g/dl [facility] Red Cell Distribution Width 14.2 11.0 - 16.0 % [facility] Platelet Count 202 160 - 400 X10*3/uL [facility] Mean Platelet Volume 9.2(L) 9.4 - 12.3 fL [facility] Neutrophils Percent Auto 68.5 45 - 73 % [facility] Imm Gran Pct Auto 0.2 0.0 - 0.4 % [facility] Lymphocytes Percent Auto 21.9 20 - 40 % [facility] Monocytes Percent Auto 8.6 2 - 11 % [facility] Eosinophils Percent Auto 0.5 0 - 4 % [facility] Basophils Percent Auto 0.3 0 - 2 % [facility] NRBC Pct Auto 0.0 0.0 - 0.2 /100WBC [facility] Neutrophils Absolute Auto 4.4 2.0 - 8.3 x10*3/uL [facility] Imm Gran Abs Auto 0.01 0.00 - 0.03 X10*3/uL [facility] Lymphocytes Absolute Auto 1.4 1.2 - 4.9 X10*3/uL [facility] Monocytes Absolute Auto 0.6 0.1 - 1.2 X10*3/uL [facility] Eosinophils Absolute Auto 0.0 0.0 - 0.4 X10*3/uL [facility] Basophils Absolute Auto 0.0 0.0 - 0.2 X10*3/uL [facility] NRBC Abs Auto 0.000 0.0 - 0.012 X10*3/uL [facility] 08/02/2022 12:1 7 AM EST 08/02/2022 12:19 AM EST us [facility] External Provider LAB BLO OD ORDERABLES Final Result [facility] [address] [place] [phone] [phone] * Culture, Urine, Routine (08/02/2022 12:00 AM EST) 08/02/2022 08/02/2022 7:3 1 AM EST Comment:UACC Narrative [facility] - 08/03/2022 9:19 AM EST Urine Culture No growth. Specimen Source: Urine clean catch us [facility] Exter nal Provider LAB MICROBIOLOGY - GENERAL ORDERABLES Final Result Performing Organization Address City/State/[facility] Co de Phone Number [facility] [address] [place] [address] [phone] documented in this encounter Visit Diagnoses Not on filedocumented in this encounter Care Teams Sheriffs Officer Relationship Specialty Start Date End Date Amber Quiroz MD [address] [place] [phone] PCP - General Family Medicine 07/03/18 documented as of this encounter
--- OUTSIDE RECORDS SUMMARY | 2024-09-30 17:30 | XMS_ITS | Encounter Summary ---
Author Organization [employer] Address [address] [facility] 7t [place] [address] Care Team Providers Care Casting Room Helper Name Role Phone Amber Quiroz MD Primary Care Provider [phone] Reason for Visit * Reason Onset Date Comments Med Refill 01/10/2024 Encounter Details Date Type Department Care Team ([facility] st Contact Info) Description 01/10/[address] [facility] [address] [place], [place] [phone] Amber Quiroz MD [address] [place], [place] [phone] Med Refill Social History Tobacco Use Types [...] immediate release tablet To be sent to: [facility] - [place], [place] - [address] [place] [address] documented in this encounter Plan of Treatment Upcoming Encounters Date Type Department Care Team (Late st Contact Info) Description 10/01/2024 11:[address] [facility] [address] [place] [phone] 11/12/2024 1:30 PM EDT Office Visit [facility] [address] [place] [address] Amber Quiroz MD [address] [place] [address] documented as of this encounter Visit Diagnoses Not on filedocumented in this encounter Care Teams Casting Room Helper Relationship Specialty Start Date End Date Amber Quiroz MD [address] [place] [phone] PCP - General Family Medicine 07/03/18 documented as of this encounter
--- OUTSIDE RECORDS SUMMARY | 2024-09-30 17:30 | XMS_ITS | Encounter Summary ---
Author Organization [employer] Address [address] [facility] [address] 7t [place] [address] Care Team Providers Care Coal Trammer Name Role Phone Amber Quiroz MD Primary Care Provider [phone] Encounter Details Date Type Department Care Team ([facility] st Contact Info) Description 11/24/2023 Telephone [facility] [address] [place], [place] [phone] Amber Quiroz MD [address] [place], [place] [phone] Social History Tobacco Use Types Packs/Day Years [...] 10/01/2024 11:30 AM EDT Telemedicine [facility] [address] [place] [address] 11/12/2024 1:30 PM EDT Office Visit [address] [address] Amber Quiroz MD [address] [place] [address] documented as of this encounter Visit Diagnoses Not on filedocumented in this encounter Care Teams Coal Trammer Relationship Specialty Start Date End Date Amber Quiroz MD [address] [place] [phone] PCP - General Family Medicine 07/03/18 documented as of this encounter
--- OUTSIDE RECORDS SUMMARY | 2024-09-30 17:30 | XMS_ITS | Encounter Summary ---
Author Organization [employer] Address [address] [facility] 7t [place] [address] Care Team Providers Care Neurological Physiotherapist Name Role Phone Amber Quiroz MD Primary Care Provider [phone] Reason for Visit * Reason Comments Med Refill Encounter Details Date Type Department Care Team ([facility] st Contact Info) Description 06/01/2023 Refill [facility] [address] [place], [place] [phone] Amber Quiroz MD [address] [place], [place] [phone] Pain Social History Tobacco Use Types Packs/Day [...] the past 12 months, has t he [employer], oil or water company threatened to shut [...] Description 10/01/2024 11:30 AM EDT Telemedicine [facility] [address] [place] [address] 11/12/2024 1:30 PM EDT Office Visit [facility] [address] [place] [address] Amber Quiroz MD [address] [place] [address] documented as of this encounter Visit Diagnoses Diagnosis Pain Generalized pain documented in this encounter Care Teams Neurological Physiotherapist Relationship Specialty Start Date End Date Amber Quiroz MD [address] [place] [phone] PCP - General Family Medicine 07/03/18 documented as of this encounter
--- OUTSIDE RECORDS SUMMARY | 2024-09-30 17:30 | XMS_ITS | Encounter Summary ---
Author Organization [employer] Address [address] [facility] 7t [place] [address] Care Team Providers Care Foil Cutter Name Role Phone Amber Quiroz MD Primary Care Provider [phone] Reason for Visit * Reason Onset Date Comments Care Management 09/25/2024 C3CM- initial as sessment/ enrollment #2. lvm Encounter Details Date Type Department Care Team ([facility] st Contact Info) Description 09/25/2024 Telephone [facility] [address] [place], [place] [phone] Amber Quiroz MD [address] [place], [place] [phone] Care Management (C3CM- initial assessment/ enrollment #2. lvm) Social History Tobacco Use Types Packs/Day Years [...] Telephone Encounter - Marixa Eric RN - 09/25/2024 1:04 PM EDT CM Marixa Eric RN, placed outbound call to patient for agreed upon assessment time. No answer atthis time, left message requesting call back at [phone]. CM/CHW will attempt contact with patient to reschedule missed initial assessment. documented in this encounter Plan of Treatment Upcoming Encounters Date Type Department Care Team (Late st Contact Info) Description 10/01/2024 11:30 AM EDT Telemedicine [facility] [address] [place] [address] 11/12/2024 1:30 PM EDT Office Visit [facility] [address] [place] [address] Amber Quiroz MD [address] [place] [address] documented as of this encounter Visit Diagnoses Not on filedocumented in this encounter Care Teams Foil Cutter Relationship Specialty Start Date End Date Amber Quiroz MD [address] [place] [phone] PCP - General Family Medicine 07/03/18 documented as of this encounter
--- OUTSIDE RECORDS SUMMARY | 2024-09-30 17:30 | XMS_ITS | Encounter Summary ---
Author Organization [employer] [facility] Address [address] [facility] 7 [place] [address] Care Team Providers Care Building Materials Sales Attendant Name Role Phone Amber Quiroz MD Primary Care Provider [phone] Reason for Visit * Reason Comments Med Refill Encounter Details Date Type Department Care Team (Late st Contact Info) Description 04/26/2023 Refill [facility] [address] [place] [address] [phone] Amber Quiroz MD [address] [place] [phone] Nausea Social History Tobacco Use Types Packs/Day [...] Info) Description 10/01/2024 11:30 AM EDT Telemedicine [facility] [address] [place] [address] [phone] 11/12/2024 1:30 PM EDT Office Visit [facility] [address] [place] [address] Amber Quiroz MD [address] [place] [address] [phone] documented as of this encounter Visit Diagnoses Diagnosis Nausea Nausea alone documented in this encounter Care Teams Building Materials Sales Attendant Relationship Specialty Start Date End Date Amber Quiroz MD [address] [place] [address] PCP - General Family Medicine 07/03/18 documented as of this encounter
--- OUTSIDE RECORDS SUMMARY | 2024-09-30 17:30 | XMS_ITS | Encounter Summary ---
Author Organization [employer] Address [address] [facility] 7t [place] [address] Care Team Providers Care Stripper Color Name Role Phone Amber Quiroz MD Primary Care Provider [phone] Encounter Details Date Type Department Care Team (Late st Contact Info) Description 09/04/2024 Orders Only [facility] [address] [place], [place] [phone] Amber Quiroz MD [address] [place], [place] [phone] Routine screening for STI (sexually transmitted infection) (Primary Dx) Social History Tobacco Use Types [...] t he electric, gas, oil or water [employer] threatened to shut off services in your [...] 10/01/2024 11:30 AM EDT Telemedicine [facility] [address] [place] [phone] 11/12/2024 1:30 PM EDT Office Visit [facility] [address] [place] [address] [phone] Amber Quiroz MD [address] [place] [address] [phone] Scheduled Orders Name Type Priority Associated Diagnoses Orde r Schedule Syphilis Screen Lab Routine Routine screening for STI (sexually transmitted infection) Expected: 09/04/2024 (Approximate), Expires: 09/04/2025 Hepatitis C Antibody with Reflex to HCV, RNA, Quantitative, Real-Time PCR Lab Routine Routine screening for STI (sexually transmitted infection) Expected: 09/04/2024 (Approximate), Expires: 09/04/2025 Chlamydia/N. Gonorrhoeae RNA, TMA, Urogenitial Microbiology Routine Routine screening for STI (sexually transmitted infection) Expected: 09/04/2024 (Approximate), Expires: 09/04/2025 HIV-1/2 Antigen and Antibodies, Fourth Generation, with Reflexes Lab Routine Routine screening for STI (sexually transmitted infection) Expected: 09/04/2024 (Approximate), Expires: 09/04/2025 Hepatitis A Antibody, Total Lab Routine Routine screening for STI (sexually transmitted infection) Expected: 09/04/2024 (Approximate), Expires: 09/04/2025 documented as of this encounter Visit Diagnoses Diagnosis Routine screening for STI (sexually transmitted infection)- Primary Screening examination for venereal disease documented in this encounter Care Teams Stripper Color Relationship Specialty Start Date End Date Amber Quiroz MD [address] [place] [address] PCP - General Family Medicine 07/03/18 documented as of this encounter
--- OUTSIDE RECORDS SUMMARY | 2024-09-30 17:30 | XMS_ITS | Encounter Summary ---
Author Organization [employer] Address 75 [facility] 7t [place] [address] Care Team Providers Care Novelty Twister Tender Name Role Phone Amber Quiroz MD Primary Care Provider [phone] Reason for Visit * Reason Comments Med Refill Encounter Details Date Type Department Care Team ([facility] st Contact Info) Description 09/25/2024 Refill [facility] [address] [place], [place] [phone] Amber Quiroz MD 230 [place], [place] [phone] Moderate persistent asthma without complication Social History Tobacco Use Types Packs/Day Years [...] t he electric, gas, oil or water [employer] threatened to shut off services in your [...] Info) Description 10/01/2024 11:30 AM EDT Telemedicine [facility] [address] [place] [address] 11/12/2024 1:30 PM EDT Office Visit [facility] [address] [place] [address] Amber Quiroz MD [address] [place] [phone] documented as of this encounter Visit Diagnoses Diagnosis Moderate persistent asthma without complication documented in this encounter Care Teams Novelty Twister Tender Relationship Specialty Start Date End Date Amber Quiroz MD [address] [place] [address] 87667 PCP - General Family Medicine 07/03/18 documented as of this encounter
--- OUTSIDE RECORDS SUMMARY | 2024-09-30 17:30 | XMS_ITS | Encounter Summary ---
Author Organization [employer] Address 75 [facility] 7t [place] [address] Care Team Providers Care Re Dye Hand Name Role Phone Amber Quiroz MD Primary Care Provider [phone] Reason for Visit * Reason Comments Med Refill Encounter Details Date Type Department Care Team ([facility] st Contact Info) Description 09/20/2024 Refill [facility] 230 [place], [place] [phone] Amber Quiroz MD 230 [place], [place] [phone] Nephrolithiasis Social History Tobacco Use Types Packs/Day [...] t he electric, gas, oil or water [employer] threatened to shut off services in your [...] Telephone Encounter - Cheryl Larkin RN - 09/26/2024 9:31 AM EDT Telephone call placed to [facility] Cardiology. They confirmed pt went to her appt. They will fax me the OV note now. * Telephone Encounter - Briana Mitchell RN - 09/23/2024 11:06 AM EDT Called [facility] Urology, pt has appt there on 09/25/24. Will notify PCP and postpone to request office visit notes following this appt. documented in this encounter Plan of Treatment Upcoming Encounters Date Type Department Care Team (Late st Contact Info) Description 10/01/2024 11:30 AM EDT Telemedicine [facility] [address] [place] [phone] 11/12/2024 1:30 PM EDT Office Visit [facility] [address] [place] [phone] Amber Quiroz MD [address] [place] [phone] documented as of this encounter Visit Diagnoses Diagnosis Nephrolithiasis Calculus of kidney documented in this encounter Care Teams Re Dye Hand Relationship Specialty Start Date End Date Amber Quiroz MD [address] [place] [address] 98366 PCP - General Family Medicine 07/03/18 documented as of this encounter
--- OUTSIDE RECORDS SUMMARY | 2024-09-30 17:30 | XMS_ITS | Encounter Summary ---
Author Organization [employer] Address 75 [facility] 7t [place] [address] Care Team Providers Care Import/Export Freight Forwarder Name Role Phone Amber Quiroz MD Primary Care Provider [phone] Reason for Visit * Reason Onset Date Comments Nurse Triage 01/11/2024 Encounter Details Date Type Department Care Team ([facility] st Contact Info) Description 01/11/2024 Telephone [facility] 230 [place], [place] [phone] Amber Quiroz MD [address] [employer] [place], [place] [phone] Nurse Triage Social History Tobacco Use Types [...] t he electric, gas, oil or water [employer] threatened to shut off services in your home? No 05/08/2023 Comments Unknown Sex and Gender Information Value Date Recorded Sex Assigned at Female 05/02/2022 10:14 AM EDT Legal Sex Female 10:14 AM EDT Gender Identity Female 05/02/2022 10:14 AM EDT Sexual Orientation Straight 05/02/2022 10 :14 AM EDT documented as of this encounter Miscellaneous Notes * Telephone Encounter - Layc Sahni LPN - 01/11/2024 3:39 PM EDT Triage call returend again once HDF appt slot provided to use. Patient in tears due to pain. Tylenol not at all helpful. Given HDF appt tomorrow at 1030am with [facility]. RX updated with pending HDF. Team tasked that if medication available from [facility]CP [facility] * Telephone Encounter - Lacy Sahni LPN - 01/11/2024 3:31 PM EDT Triage in process. Patient requesting pain medication for kidney stone pain in [facility] 01/07/24-01/08/24. Patient not seeing any stones [...] worse Override Notes: Seen and treated at [facility] known kidney stones wants something for [...] Info) Description 10/01/2024 11:30 AM EDT Telemedicine [facility] [address] [place] [address] 11/12/2024 1:30 PM EDT Office Visit [facility] [address] [place] [address] Amber Quiroz MD [address] [place] [address] documented as of this encounter Visit Diagnoses Not on filedocumented in this encounter Care Teams Import/Export Freight Forwarder Relationship Specialty Start Date End Date Amber Quiroz MD [address] [place] [address] PCP - General Family Medicine 07/03/18 documented as of this encounter
--- OUTSIDE RECORDS SUMMARY | 2024-09-30 17:30 | XMS_ITS | Encounter Summary ---
Author Organization [id number] Address 75 [facility] 7 [place] [address] Care Team Providers Care Eyedotter Name Role Phone Amber Quiroz MD Primary Care Provider [phone] Reason for Visit * Reason Comments Med Refill Encounter Details Date Type Department Care Team ([facility] st Contact Info) Description 11/29/[address] [facility] 230 [place], [place] [phone] Charleen Latif MD [address] [place], [place] [phone] Nephrolithiasis Social History Tobacco Use Types Packs/Day [...] t he electric, gas, oil or water [employer] threatened to shut off services in your [...] 11:30 AM EDT Telemedicine [facility] [address] [place] [phone] 11/12/2024 1:30 PM EDT Office Visit [facility] [address] [place] [address] Amber Quiroz MD [address] [place] [address] documented as of this encounter Visit Diagnoses Diagnosis Nephrolithiasis Calculus of kidney documented in this encounter Care Teams Eyedotter Relationship Specialty Start Date End Date Amber Quiroz MD [address] [place] [address] PCP - General Family Medicine 07/03/18 documented as of this encounter
--- OUTSIDE RECORDS SUMMARY | 2024-09-30 17:30 | XMS_ITS | Encounter Summary ---
Author Organization [employer] [facility] Address [address] [facility] 7t [place] [address] Care Team Providers Care Furnace Combustion Analyst Name Role Phone Amber Quiroz MD Primary Care Provider [phone] Encounter Details Date Type Department Care Team (Late st Contact Info) Description 11/16/2022 Abstract [facility] [address] [place] [address] [phone] Amber Quiroz MD [address] [place] [address] [phone] Social History Tobacco Use Types Packs/Day Years [...] Info) Description 10/01/2024 11:30 AM EDT Telemedicine [facility] [address] [place] [address] [phone] 11/12/2024 1:30 PM EDT Office Visit [facility] [address] [place] [address] [phone] Amber Quiroz MD [address] [place] [address] [phone] documented as of this encounter Visit Diagnoses Not on filedocumented in this encounter Care Teams Furnace Combustion Analyst Relationship Specialty Start Date End Date Amber Quiroz MD 230 [place] [address] PCP - General Family Medicine 07/03/18 documented as of this encounter
--- OUTSIDE RECORDS SUMMARY | 2024-09-30 17:30 | XMS_ITS | Encounter Summary ---
Author Organization [facility] Address [address] [place] [address] Care Team Providers Care Floor Clerk Name Role Phone Physician, No Pcp Primary Care Provider Unavaila ble Encounter Details Date Type Department Care Team (Late st Contact Info) Description 09/25/2024 Lab Requisition [facility] - Main Lab [address] [facility] [place] [address] Zachery Chi PA [address] [place] [address] Calculus of ureter Social History Tobacco Use Types Packs/Day Years Used Date Smoking Tobacco: Never Assessed Comments Unknown Sex and Gender Information Value Date Recorded Sex Assigned at Female 08/21/2024 5:24 PM EST Legal Sex Female 1:51 PM EST Gender Identity Female 08/21/2024 5:15 PM EST Sexual Orientation Straight 08/21/2024 5: 24 PM EST documented as of this encounter Functional Status * Are you [...] Lynn Mason RN documented in this encounter Plan of Treatment Not on file documented as of this encounter Procedures Procedure Name Priority Date/Time Associated Diagnosis Comments PARATHYROID HORMONE INTACT Routine 09/25/2024 3:15 PM EDT Calculus of ureter documented in this encounter Results * Parathyroid hormone intact (09/25/2024 3:15 PM EDT) PTH 31.1 18.5 - 88.0 pcg/mL LAB CHEMISTRY METHOD 09/25/2024 7:10 PM EDT [facility] Blood Venous blood specimen / Unknown 09/25/2024 3:15 PM EDT 09/25/2024 6:18 PM EDT us Zachery Chi PA LAB BLOOD ORDERABLES Final Res ult [facility] [address] [place] [address], documented in this encounter Visit Diagnoses Diagnosis Calculus of ureter documented in this encounter Care Teams Floor Clerk Relationship Specialty Start Date End Date Physician, No Pcp PCP - General 08/21/24 documented as of this encounter
--- OUTSIDE RECORDS SUMMARY | 2024-09-30 17:30 | XMS_ITS | Encounter Summary ---
Author Organization [employer] Address [address] [facility] 7t [place] [address] Care Team Providers Care Cut Off Saw Tender Metal Name Role Phone Amber Quiroz MD Primary Care Provider [phone] Reason for Visit * Reason Comments Med Refill Encounter Details Date Type Department Care Team (Late st Contact Info) Description 04/26/2023 Refill [facility] [address] [place] [phone] Alan Partida MD 230 [place] [address] Moderate persistent asthma without complication; Nausea Social [...] Info) Description 10/01/2024 11:30 AM EDT Telemedicine [facility] [address] [place] [address] [phone] 11/12/2024 1:30 PM EDT Office Visit [facility] [address] [place] [address] Amber Quiroz MD [address] [place], [place] [phone] documented as of this encounter Visit Diagnoses Diagnosis Moderate persistent asthma without complication Nausea Nausea alone documented in this encounter Care Teams Cut Off Saw Tender Metal Relationship Specialty Start Date End Date Amber Quiroz MD [address] [place] [phone] PCP - General Family Medicine 07/03/18 documented as of this encounter
--- OUTSIDE RECORDS SUMMARY | 2024-09-30 17:31 | XMS_ITS | Encounter Summary ---
Author Organization [employer] Address 75 [facility] 7t [place] [address] Care Team Providers Care Renderer Name Role Phone Amber Quiroz MD Primary Care Provider [phone] Reason for Visit * Reason Onset Date Comments Med Refill 06/21/2024 Encounter Details Date Type Department Care Team ([facility] st Contact Info) Description 06/21/2024 Telephone [facility] [address] [place], [place] [phone] Amber Quiroz MD [address] [place], [place] [phone] Med Refill Social History Tobacco Use Types [...] extra strength with no relief. Please advise. EDUCATION ADVISER checked 06/21/24. Last refill of Oxycodone 5mg 11/30/23 qty 12. * Telephone Encounter - Gemma Oliveira - 06/21/2024 10:12 AM EST TC from pt requesting medication refill. Medications needing refill : oxyCODONE (Oxy-IR) 5 MG immediate release capsule To be sent to: [facility] - [place], [place] - [address] [facility] documented in this encounter Plan of Treatment Upcoming Encounters Date Type Department Care Team ([facility] st Contact Info) Description 10/01/2024 11:30 AM EDT Telemedicine [facility] [address] [place] [address] 11/12/2024 1:30 PM EDT Office Visit [facility] [address] [place] [address] [phone] Amber Quiroz MD [address] [place], [place] [phone] documented as of this encounter Visit Diagnoses Not on filedocumented in this encounter Care Teams Renderer Relationship Specialty Start Date End Date Amber Quiroz MD [address] [place], [place] [phone] PCP - General Family Medicine 07/03/18 documented as of this encounter
--- OUTSIDE RECORDS SUMMARY | 2024-09-30 17:31 | XMS_ITS | Encounter Summary ---
Author Organization [employer] Address 75 [facility] 7t [place] [address] Care Team Providers Care Electric Motorman Name Role Phone Amber Quiroz MD Primary Care Provider [phone] Encounter Details Date Type Department Care Team (Late st Contact Info) Description 03/22/2023 Orders Only [facility] [address] [place] [address] [phone] Amber Quiroz MD [address] [place] [address] [phone] ASCUS of cervix with negative high risk [...] Info) Description 10/01/2024 11:30 AM EDT Telemedicine [facility] [address] [place] [address] [phone] 11/12/2024 1:30 PM EDT Office Visit [facility] [address] [place] [address] [phone] Amber Quiroz MD [address] [place] [address] [phone] documented as of this encounter Visit Diagnoses Diagnosis ASCUS of cervix with negative high risk HPV- Primary History of cervical dysplasia Personal history of cervical dysplasia documented in this encounter Care Teams Electric Motorman Relationship Specialty Start Date End Date Amber Quiroz MD 230 [place] [address] PCP - General Family Medicine 07/03/18 documented as of this encounter
--- OUTSIDE RECORDS SUMMARY | 2024-09-30 17:31 | XMS_ITS | Encounter Summary ---
Author Organization [employer] Address 75 [facility] 7t [place] [address] Care Team Providers Care Education Rep Name Role Phone Amber Quiroz MD Primary Care Provider [phone] Encounter Details Date Type Department Care Team (Late st Contact Info) Description 04/05/2023 Orders Only [facility] [address] [place] [address] Anabell Martinez LPN Social History Tobacco Use [...] Info) Description 10/01/2024 11:30 AM EDT Telemedicine [facility] [address] [place] [address] [phone] 11/12/2024 1:30 PM EDT Office Visit [facility] [address] [place] [address] 16[address] Amber Quiroz MD [address] [place] [phone] documented as of this encounter Visit Diagnoses Not on filedocumented in this encounter Care Teams Education Rep Relationship Specialty Start Date End Date Amber Quiroz MD 230 [place] [address] PCP - General Family Medicine 07/03/18 documented as of this encounter
--- OUTSIDE RECORDS SUMMARY | 2024-09-30 17:31 | XMS_ITS | Encounter Summary ---
Author Organization [employer] [facility] Address 75 [facility] 7t [place] [address] Care Team Providers Care Geology Technician Name Role Phone Amber Quiroz MD Primary Care Provider [phone] Encounter Details Date Type Department Care Team (Late st Contact Info) Description 12/12/2022 Orders Only [facility] [address] [place] [address] Anabell Martinez LPN Social History Tobacco Use [...] Info) Description 10/01/2024 11:30 AM EDT Telemedicine [facility] [address] [place] [address] [phone] 11/12/2024 1:30 PM EDT Office Visit [facility] [address] [place] [address] 9[address] Amber Quiroz MD [address] [place] [address] [phone] documented as of this encounter Visit Diagnoses Not on filedocumented in this encounter Care Teams Geology Technician Relationship Specialty Start Date End Date Amber Quiroz MD 230 [place] [address] PCP - General Family Medicine 07/03/18 documented as of this encounter
--- OUTSIDE RECORDS SUMMARY | 2024-09-30 17:31 | XMS_ITS | Clinical Summary ---
Author Organization [facility] Address [address] [place] [address] Phone Care Team Providers Care Truck Headlight Assembler Name Role Phone Physician, No Pcp Primary Care Provider Unavaila ble Allergies Active Allergy Reactions Criticality Noted Date Comments Aspirin Congestion of the throat 08/21/2024 Ibuprofen Swallowing Problem 08/21/2024 Acetaminophen Swallowing Problem 08/21/2024 Medications No known medications Active Problems No known active problems Encounters Date Type Department Care Team Description 09/25/2024 Lab Requisition [facility] - Main Lab [address] [facility] [place] [address] Zachery Chi PA Calculus of ureter 08/21/2024 3:41 PM EST - 08/21/2024 7:08 PM EST Emergency [facility] Emergency [address] [place] [address] Bilateral flank pain (Primary Dx); [...] 08/10/2021, 02/19/2021, 01/29/2021 Influenza Vaccine (#1) 2024 3, 04/02/2021, 06/29/2020, Additional history exists Hypertension/CHF/CAD Annual [...] 09/25/2024 3:15 PM EDT Calculus of ureter ECG ANNOTATED 08/22/2024 DRUG ABUSE SCREEN 8A [...] EST from Last 3 Months Results * Parathyroid hormone intact (09/25/2024 3:15 PM EDT) Pathologist [facility] PTH 31.1 18.5 - 88.0 pcg/mL LAB CHEMISTRY METHOD 09/25/2024 7:10 PM EDT [facility] Blood Venous blood specimen / Unknown 09/25/2024 3:15 PM EDT 09/25/2024 6:18 PM EDT Zachery LUO LAB BLOOD ORDERABLES Final Res ult [facility] [address] [place] [address], [place] [phone] * ECG-Annotated (08/22/2024) Provider Onbase MD ECG ORDERABLES Final Result * (ABNORMAL) Drug abuse screen 8a panel, urine (08/21/2024 6:02 PM EST) Pathologist [facility] Amphetamine Screen, Ur Negative Negative LAB CHEMISTRY METHOD 5 6:35 PM EST [facility] Comment:Certain OTC medicati ons containing ephedrine, phenylephrine, pseudoephedrine and phenylpropanolamine can cause false positive results. Barbiturate Screen, Ur Negative Negative LAB CHEMISTRY METHOD 5 6:35 PM EST [facility] Benzodiazepine Screen, Ur Negative Negative LAB CHEMISTRY METHOD 5 6:35 PM EST [facility] Cocaine Screen, Ur Positive(A ) Negative LAB CHEMISTRY METHOD 5 6:35 PM EST [facility] Opiate Screen, Ur Negative Negative LAB CHEMISTRY METHOD 5 6:35 PM EST [facility] Cannabinoid (THC) Screen, Ur Positive(A ) Negative LAB CHEMISTRY METHOD 5 6:35 PM EST [facility] Comment:Specimens from patie nts taking pantoprazole sodium (Protonix) have been shown to produce false positive results. Oxycodone Screen, Ur Negative Negative LAB CHEMISTRY METHOD 5 6:35 PM EST [facility] Fentanyl, Ur Negative Negative LAB CHEMISTRY METHOD 5 6:35 PM [facility] Urine Urine specimen obtained by clean catch procedure / Unknown Non-blood Collection / Unknown 08/21/2024 6:02 PM EST 08/21/2024 6:09 PM EST [facility] - 08/21/2024 6:35 PM EST [...] Za LUO LAB URINE ORDERABLES Final Result [facility] [address] [place] [address], * (ABNORMAL) Urinalysis with reflex microscopic and culture (08/21/2024 6:00 PM EST) Specific [place] Urine 1.019 1.003 - 1.030 LAB URINALYSIS - AUTOMATED METHOD 08/21/2024 6:43 PM [facility] pH, Urine 6.5 5.0 - 8.0 pH LAB URINALYSIS - AUTOMATED METHOD 08/21/2024 6:43 PM [facility] Leukocytes, Urine Trace(A) Negative LAB URINALYSIS - AUTOMATED METHOD 08/21/2024 6:43 PM [facility] Nitrite, Urine Negative Negative LAB URINALYSIS - AUTOMATED METHOD 08/21/2024 6:43 PM [facility] Protein, Urine Negative <=Trace mg/dL LAB URINALYSIS - AUTOMATED METHOD 08/21/2024 6:43 PM [facility] Glucose, Urine Negative Negative mg/dL LAB URINALYSIS - AUTOMATED METHOD 08/21/2024 6:43 PM [facility] Ketones, Urine Negative Negative mg/dL LAB URINALYSIS - AUTOMATED METHOD 08/21/2024 6:43 PM [facility] Urobilinogen , Urine 1.0 0.2 - 1.0 mg/dL LAB URINALYSIS - AUTOMATED METHOD 08/21/2024 6:43 PM [facility] Bilirubin, Urine Negative Negative LAB URINALYSIS - AUTOMATED METHOD 08/21/2024 6:43 PM [facility] Blood, Urine Negative Negative LAB URINALYSIS - AUTOMATED METHOD 08/21/2024 6:43 PM [facility] RBC, Urine 3.9 0 - 4 /HPF LAB URINALYSIS - AUTOMATED METHOD 08/21/2024 6:43 PM [facility] WBC, Urine 4.4(H) 0 - 4 /HPF LAB URINALYSIS - AUTOMATED METHOD 08/21/2024 6:43 PM [facility] Squamous Epithelial, Urine >100(H) 0 - 60 /LPF LAB URINALYSIS - AUTOMATED METHOD 08/21/2024 6:43 PM [facility] Bacteria, Urine Moderate(A) Negative /HPF LAB URINALYSIS - AUTOMATED METHOD 08/21/2024 6:43 PM [facility] Hyaline Casts, Urine 2.4 0 - 3 /LPF LAB URINALYSIS - AUTOMATED METHOD 08/21/2024 6:43 PM EST [facility] Urine Urine specimen obtained by clean catch procedure / Unknown Non-blood Collection / Unknown 08/21/2024 6:00 PM EST 08/21/2024 6:09 PM EST Ramiro Maier DO LAB URINE ORDERABLES Final Resu lt Performing Organization Address City/[facility]/ZIP Co de Phone Number [facility] [address] [place] [address], [place] [phone] * Vaughn urine culture tube (08/21/2024 6:00 PM EST) Extra Tube Hold for add-ons. 08/21/2024 8:01 PM EST [facility] Comment:Auto resulted. Urine Urine specimen obtained by clean catch procedure / Unknown Non-blood Collection / Unknown 08/21/2024 6:00 PM EST 08/21/2024 6:09 PM EST Ramiro Miguelrussell Maier DO LAB URINE ORDERABLES Final Resu lt Performing Organization Address [facility]/ZIP Co de Phone Number [facility] [address] [place] [address], [place] [phone] * Culture urine (08/21/2024 6:00 PM EST) Culture, Urine 10,000-49,000 CFU/mL Mixed urogenital geovanny, no uropathogens present. Suggest repeat specimen if clinically indicated. 08/22/2024 2:06 PM EST [facility] Urine Urine specimen obtained by clean catch procedure / Unknown Non-blood Collection / Unknown 08/21/2024 6:00 PM EST 08/21/2024 6:43 PM EST Ramiro Miguelrussell Maier DO LAB MICROBIOLOGY - GENERAL ORDE RABDEANNA Final Result [facility] [place] [facility] [address] [place] [address], * CT Head wo Contrast (08/21/2024 5:00 [...] Kevin MD on 08/21/2024 17:12:[address] PROCEDURES Final Resu lt * ECG 12 lead (08/21/2024 4:34 PM EST) Ventricular Rate ECG 77 BPM GEMUSE Atrial Rate 77 BPM GEMUSE P-R Interval 160 ms GEMUSE QRS Duration 86 ms GEMUSE Q-T Interval 392 ms GEMUSE QTc 443 ms GEMUSE P Wave [place] 58 degrees GEMUSE R [place] 11 degrees GEMUSE T [place] 43 degrees GEMUSE ECG Interpretation Normal sinus [...] PM EST) WBC 4.6(L) 4.8 - 10.8 K/mcL LAB HEMETOLOGY METHOD 08/21/2024 4:06 PM [facility] RBC 4.60 3.80 - 4.80 M/mcL LAB HEMETOLOGY METHOD 08/21/2024 4:06 PM [facility] Hemoglobin 12.2 11.5 - 16.0 g/dL LAB HEMETOLOGY METHOD 08/21/2024 4:06 PM [facility] Hematocrit 37.6 35.0 - 47.0 % LAB HEMETOLOGY METHOD 08/21/2024 4:06 PM [facility] MCV 82.6 79.0 - 98.0 FL LAB HEMETOLOGY METHOD 08/21/2024 4:06 PM [facility] MCH 26.8(L) 27.0 - 32.0 pcg LAB HEMETOLOGY METHOD 08/21/2024 4:06 PM [facility] MCHC 32.4 32.0 - 37.0 g/dL LAB HEMETOLOGY METHOD 08/21/2024 4:06 PM [facility] RDW 15.2(H) 11.0 - 15.0 % LAB HEMETOLOGY METHOD 08/21/2024 4:06 PM [facility] Platelets 235 130 - 400 K/mcL LAB HEMETOLOGY METHOD 08/21/2024 4:06 PM [facility] MPV 10.3 7.0 - 11.0 FL LAB HEMETOLOGY METHOD 08/21/2024 4:06 PM [facility] NRBC 0.0 <1.0 % LAB HEMETOLOGY METHOD 08/21/2024 4:06 PM [facility] NRBC Absolute 0.00 <0.10 K/mcL LAB HEMETOLOGY METHOD 08/21/2024 4:06 PM [facility] Neutrophils Relative 49.4 % LAB HEMETOLOGY METHOD 08/21/2024 4:06 PM [facility] Lymphocytes Relative 40.3 % LAB HEMETOLOGY METHOD 08/21/2024 4:06 PM [facility] Monocytes Relative 7.7 % LAB HEMETOLOGY METHOD 08/21/2024 4:06 PM [facility] Eosinophils Relative 2.2 % LAB HEMETOLOGY METHOD 08/21/2024 4:06 PM [facility] Basophils Relative 0.2 % LAB HEMETOLOGY METHOD 08/21/2024 4:06 PM [facility] Immature Granulocytes Relative 0.2 % LAB HEMETOLOGY METHOD 08/21/2024 4:06 PM [facility] Neutrophils Absolute 2.26 1.50 - 7.00 K/mcL LAB HEMETOLOGY METHOD 08/21/2024 4:06 PM [facility] Lymphocytes Absolute 1.84 1.00 - 5.00 K/mcL LAB HEMETOLOGY METHOD 08/21/2024 4:06 PM [facility] Monocytes Absolute 0.35 0.20 - 1.00 K/mcL LAB HEMETOLOGY METHOD 08/21/2024 4:06 PM [facility] Eosinophils Absolute 0.10 0.00 - 0.50 K/mcL LAB HEMETOLOGY METHOD 08/21/2024 4:06 PM EST [facility] Basophils Absolute 0.01 0.00 - 0.20 K/mcL LAB HEMETOLOGY METHOD 08/21/2024 4:06 PM EST [facility] Immature Granulocytes Absolute 0.01 0.00 - 0.03 K/[facility] LAB HEMETOLOGY METHOD 08/21/2024 4:06 PM EST [facility] Blood Venous blood specimen / Unknown Venipuncture / Unknown 08/21/2024 3:50 PM EST 08/21/2024 3:56 PM EST Ramiro Maier DO LAB BLOOD ORDERABLES Final Resu lt Performing Organization Address [facility]/ZIP Co de Phone Number [facility] [address] [place] [address], [place] [phone] * Lipase (08/21/2024 3:50 PM EST) Pathologist [facility] Lipase 34 13 - 75 unit/L LAB CHEMISTRY METHOD 08/21/2024 4:26 PM EST [facility] Blood Venous blood specimen / Unknown Venipuncture / Unknown 08/21/2024 3:50 PM EST 08/21/2024 3:56 PM EST Ramiro Maier DO LAB BLOOD ORDERABLES Final Resu lt Performing Organization Address City/[facility]/ZIP Co de Phone Number [facility] [address] [place] [address], [place] [phone] * (ABNORMAL) Comprehensive metabolic panel (08/21/2024 3:50 PM EST) Pathologist [facility] Sodium 144 133 - 145 mmol/L LAB CHEMISTRY METHOD 08/21/2024 4:26 PM EST [facility] Potassium 3.5 3.5 - 5.5 mmol/L LAB CHEMISTRY METHOD 08/21/2024 4:26 PM EST [facility] Chloride 113(H) 96 - 110 mmol/L LAB CHEMISTRY METHOD 08/21/2024 4:26 PM [facility] CO2 23 21 - 32 mmol/L LAB CHEMISTRY METHOD 08/21/2024 4:26 PM [facility] Anion Gap 8 3 - 11 LAB CHEMISTRY METHOD 08/21/2024 4:26 PM [facility] Glucose 108(H) 70 - 100 mg/dL LAB CHEMISTRY METHOD 08/21/2024 4:26 PM [facility] BUN 13 5 - 25 mg/dL LAB CHEMISTRY METHOD 08/21/2024 4:26 PM [facility] Creatinine 0.54 0.50 - 1.10 mg/dL LAB CHEMISTRY METHOD 08/21/2024 4:26 PM [facility] eGFR 106 >=60 mL/min/1. 73m2 LAB CHEMISTRY METHOD 08/21/2024 4:26 PM [facility] Comment:Calculation based on the??Chronic Kidney Disease Epidemiology Collaboration (CKD-EPI) equation refit??without adjustment for race. BUN/Creatinine Ratio 24.1 LAB CHEMISTRY METHOD 08/21/2024 4:26 PM [facility] Calcium 9.3 8.5 - 10.5 mg/dL LAB CHEMISTRY METHOD 08/21/2024 4:26 PM [facility] AST (SGOT) 27 10 - 42 unit/L LAB CHEMISTRY METHOD 08/21/2024 4:26 PM [facility] ALT (SGPT) 36 10 - 60 unit/L LAB CHEMISTRY METHOD 08/21/2024 4:26 PM [facility] Alkaline Phosphatase 109 42 - 121 unit/L LAB CHEMISTRY METHOD 08/21/2024 4:26 PM [facility] Total Protein 7.2 6.0 - 8.0 g/dL LAB CHEMISTRY METHOD 08/21/2024 4:26 PM [facility] Albumin 3.9 3.2 - 5.0 g/dL LAB CHEMISTRY METHOD 08/21/2024 4:26 PM EST [facility] Total Bilirubin 0.2 0.0 - 1.4 mg/dL LAB CHEMISTRY METHOD 08/21/2024 4:26 PM EST [facility] Blood Venous blood specimen / Unknown Venipuncture / Unknown 08/21/2024 3:50 PM EST 08/21/2024 3:56 PM EST us Ramiro Maier DO LAB BLOOD ORDERABLES Final Resu lt [facility] ([facility]) [facility] [address] [place] [address], [place] [phone] from Last 3 Months Insurance MEDICAID - [place] Care Teams Truck Headlight Assembler Relationship Specialty Start Date End Date Physician, No Pcp PCP - General 08/21/24
== END 2024-09-30 16:27 | disposition left against medical advice (07) ==
PROVIDERS: Physician Assistant Medical; Emergency Provider Emergency Medicine
DX: R10.9 Unspecified abdominal pain (principal); R11.2 Nausea with vomiting, unspecified; I10 Essential (primary) hypertension; F17.210 Nicotine dependence, cigarettes, uncomplicated; Z79.899 Other long term (current) drug therapy; Z85.528 Personal history of other malignant neoplasm of kidney; Z87.442 Personal history of urinary calculi
CPT/HCPCS: 36415; 51798; 74176; 80053; 83690; 83735; 85025; 99284

== ENCOUNTER → 2024-09-30 15:33 | Outpatient (BNV) | payer MEDICAID, SELFPAY | PROVIDERS: Emergency Provider Emergency Medicine; Visit Provider Radiology Diagnostic Radiology | DX: N20.0 Calculus of kidney (principal); D17.71 Benign lipomatous neoplasm of kidney; K42.9 Umbilical hernia without obstruction or gangrene | CPT/HCPCS: 74176 ==

== ENCOUNTER 2024-10-09 01:00 | Emergency (ER) | payer MEDICAID, SELFPAY ==
--- NOTE | ~2024-10-09 | CT_ITS ---
CLINICAL HISTORY: flank pain CT abdomen and pelvis without contrast Comparison: CT/SR - CT ABDOMEN PELVIS WO IV CON - 09/30/24 16:06 EDT Findings: The lung bases are clear. The liver, gallbladder, pancreas, spleen, and adrenal glands are unremarkable. There are several punctate bilateral nonobstructing renal stones. There is no hydronephrosis. There is no ureteral stone or stone in the bladder. 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 The appendix is normal. The remainder of the gastrointestinal tract is unremarkable. The aorta is normal in diameter. There are no enlarged lymph nodes. Uterus and adnexa are grossly unremarkable. There is lower lumbar facet osteoarthritis. There is no fracture or suspicious lytic or sclerotic lesion. IMPRESSION: 1. No acute abnormality in the abdomen or pelvis. 2. Punctate bilateral nonobstructing renal stones. This document has been electronically signed by: Jhony Velez MD on 10/09/2024 03:51:10
[2024-10-09 01:11] VITALS: BP 118/77; BP 120/70; PULSE 83; PULSE 87; RESP 16; TEMP 36.5; O2SAT 95; O2SAT 96; BMI 26.1
[2024-10-09 01:14] VITALS: BP 118/77; PULSE 83; RESP 16; TEMP 36.5; O2SAT 95
[2024-10-09 01:25] LABS: Basophils Percent Auto 0.4 % (0-2); Eosinophils Absolute Auto 0.1 X10*3/uL (0.0-0.4); Eosinophils Percent Auto 2.2 % (0-4); Hematocrit 34.1 % (37.0-47.0); Hemoglobin 11.4 g/dl (12.0-16.0); Imm Gran Abs Auto 0.01 X10*3/uL (0.00-0.03); Imm Gran Pct Auto 0.2 % (0.0-0.4); MANUAL DIFF FLAG NO; Mean Corpuscular HGB Conc 33.4 g/dl (31.0-35.0); Mean Corpuscular Hemoglobin 27.4 pg (27.0-33.0); Mean Platelet Volume 9.6 fL (9.4-12.3); Monocytes Absolute Auto 0.4 X10*3/uL (0.1-1.2); Monocytes Percent Auto 8.6 % (2-11); Neutrophils Absolute Auto 2.2 x10*3/uL (2.0-8.3); Neutrophils Percent Auto 46.6 % (45-73); Platelet Count 232 X10*3/uL (160-400); Red Blood Count 4.16 X10*6/uL (4.20-5.50); Red Cell Distribution Width 15.1 % (11.0-16.0); White Blood Count 4.6 X10*3/uL (4.8-10.8)
[2024-10-09 01:26] LABS: Appearance Urine Cloudy; Color Urine Dark Yellow; Glucose Urine UA Negative (Negative); Leukocyte Esterase Urine Small (1+) (Negative); Nitrite Urine Negative (Negative); PH 5.5 (5.0-9.0); Specific Gravity - Urine >= 1.030 (1.005-1.025); UMIC TRIGGER UACC YES; Urine Blood Negative (Negative); Urine Ketones Trace mg/dL (Negative); Urine Protein Trace mg/dL (Neg-Trace)
--- OUTSIDE RECORDS SUMMARY | 2024-10-09 01:32 | XMS_ITS | Clinical Summary ---
Author Organization [employer] Address [address] [facility] [address] [place] [address] Care Team Providers Care Certified Nurse Midwife Name Role Phone Amber Quiroz MD Primary Care Provider [phone] Allergies Active Allergy Reactions Criticality Noted Date [...] LOS D POR 7 D 023 Active acetaminophen (Tylenol 8 Hour) 650 MG [...] TODOS LOS D AL ACOSTARSE 025 Active albuterol (Ventolin HFA) 108 (90 Base) MCG/ACT inhalerIndication s:Moderate persistent asthma without complication INHALE 2 PUFFS BY MOUTH EVERY 4 TO 6 HOURS OR DIFFICULTY BREATHING. DO NOT EXCEED FOUR TIMES DAILY. 18 g 025 Active ondansetron (Zofran) 4 MG tabletIndications :Nausea TAKE 1 TABLET BY MOUTH EVERY 8 HOURS NEEDED FOR NAUSEA AND VOMITING 30 tablet 025 Active traMADol (Ultram) 50 MG tabletIndications :Nephrolithiasis Take 1 tablet (50 mg) by mouth every 8 (eight) hours if needed for severe pain. 15 tablet 025 Active mirtazapine (Remeron) 30 MG tablet TOME BELINDA TABLETA TODOS LOS D AL ACOSTARSE 023 2024 Discontinued QUEtiapine (SEROquel) 100 MG tablet TOME BELINDA TABLETA TODOS LOS D AL ACOSTARSE 023 2024 Discontinued(M ed list cleanup (will not trigger notification to Pharmacy)) lisinopril 10 MG tabletIndications :Essential hypertension TAKE 1 TABLET BY MOUTH EVERY DAY IN THE MORNING 90 tablet 024 2024 Discontinued melatonin 5 MG tablet Take 2 tablets by mouth at bedtime. 024 2024 Discontinued cefpodoxime (Vantin) 100 MG tablet TOME BELINDA TABLETA CADA 12 HORAS POR 5 D 023 2024 Discontinued(M ed list cleanup (will not trigger notification to Pharmacy)) oxyCODONE (Oxy-IR) 5 MG immediate release capsule TAKE 1 CAPSULE BY MOUTH EVERY 8 HOURS NEEDED FOR PAIN 024 2024 Discontinued(M ed list cleanup (will not trigger notification to Pharmacy)) albuterol (Ventolin HFA) 108 (90 Base) MCG/ACT inhalerIndication s:Moderate persistent asthma without complication INHALE 2 PUFFS BY MOUTH EVERY 4 TO 6 HOURS NEEDED DIFFICULTY BREATHING NO MORE THAN FOUR TIMES DAILY 18 g 024 2024 Discontinued ondansetron (Zofran) 4 MG tabletIndications :Nausea TAKE 1 TABLET BY MOUTH EVERY 8 HOURS NEEDED FOR NAUSEA AND VOMITING 30 tablet 1 025 2024 Discontinued traMADol (Ultram) 50 MG tabletIndications :Nephrolithiasis Take 1 tablet (50 mg) by mouth every 8 (eight) hours if needed for severe pain. 15 tablet 025 2024 Discontinued traMADol (Ultram) 50 MG tabletIndications :Nephrolithiasis TAKE 1 TABLET BY MOUTH EVERY 8 HOURS NEEDED FOR SEVERE PAIN 15 tablet 025 2024 Discontinued(R eorder (will not trigger notification to Pharmacy)) Active Problems Patient Care Coordination No te [...] anxiety ; PTSD; panic attack; history of NATY; bipolar - continue keeping appointments with behavioral health service provider and following their treatment plan - currently prescribed medications: gabapentin, melatonin; topiramate; mirtazapine; fluoxetine; clonazepam; zolpidem; prazosin Panic disorder without agoraphobia 12/26/2011 Resolved Problems Problem Noted Date Diagnosed Date Resolved Date Hyperlipidemia 04/01/2024 09/10/2024 Encounters Date Type Department Care Team Description 10/08/2024 Refill [facility] [address] [place] [address] Rachelle Lucero RN Nephrolithiasis 10/08/2024 Telephone [facility] [address] [place] [address] Amber Quiroz MD 10/07/2024 Refill [facility] [address] [facility] [place] [address] Amber Quiroz MD Nausea 10/02/2024 Telephone [facility] [address] [facility] [place] [address] 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, 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 Question 10/01/2024 11:30 AM EDT Telemedicine [facility] [address] [facility] [place] [address] 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 RN Essential hypertension 10/01/2024 Travel 10/01/2024 Telephone [facility] [address] [place], [place] [address] [address] Amber Quiroz MD 09/26/[address] [place] [address] Amber Quiroz MD Nurse Triage 09/25/2024 Refill [facility] [address] [facility] [place] [address] Amber Quiroz MD Moderate persistent asthma without complication 09/25/2024 Telephone [facility] [address] [place], [place] [address] [address] Amber Quiroz MD Care Management (C3- initial assessment/ enrollment #2. lvm) 09/24/2024 Patient Outreach [facility] [address] [place], [place] [address] [address] Amber Quiroz MD Care Coordination (CM/CHW appt reminder) 09/20/2024 Refill [facility] [address] [facility] [place] [address] Amber Quiroz MD Nephrolithiasis 09/13/2024 Population Health Risk Score [facility] (C3) Department [address] [place] [phone] Provider, Population Health Generic 09/05/2024 Telephone [facility] [address] [place] [phone] 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 RN Results 09/04/2024 Orders Only [facility] [address] [place] [phone] Amber Quiroz MD Routine screening for STI (sexually transmitted infection) (Primary Dx) 09/04/2024 Patient Outreach [facility] [address] [place] [phone] Amber Quiroz MD Care Coordination (CM/CHW outreach) 09/04/2024 Refill [facility] [address] [place] [phone] Amber Quiroz MD 09/03/2024 3:00 PM EST Office Visit [facility] [address] [place] [phone] Amber Quiroz MD Loin pain hematuria syndrome (Primary Dx); Essential hypertension; Kidney stones; Nephrolithiasis; Mood disorder (CMS/HCC); Dyslipidemia; Encounter for immunization; Dietary counseling; Exercise counseling; Overweight; Panic disorder without agoraphobia; Anxiety; Iron deficiency anemia, unspecified iron deficiency anemia type 09/03/2024 Telephone [facility] [address] [place] [phone] Amber Quiroz MD Appointment Request 09/03/2024 Travel 08/29/2024 Refill [facility] [address] [place] [phone] Amber Quiroz MD 08/28/[address] [address] Shellie Eric MA chart prep 08/28/2024 Patient Outreach [address] [address] Amber Quiroz MD Care Coordination (CM/CHW outreach) 08/26/2024 Telephone [facility] [address] [place] [phone] Amber Quiroz MD Nurse Triage 08/25/2024 Refill [facility] [address] [place] [address] Amber Quiroz MD Pain 08/21/2024 Telephone [facility] [address] [place] [phone] Amber Quiroz MD Nurse Triage 08/15/2024 Patient Outreach [address] [address] Amber Quiroz MD Care Coordination (CM/CHW outreach) 08/15/[address] [address] Marixa Eric RN Care Management (C3CM- chart review) 08/15/[address] [address] Amber Quiroz MD Nausea 08/14/2024 Orders Only GENERIC EXTERNAL DATA DEPARTMENT Provider, Generic External Data 07/16/[address] [address] Amber Quiroz MD Nurse Triage 07/15/2024 Orders [...] Care Team (Late st Contact Info) Description 11/12/2024 1:30 PM EDT Office Visit [facility] [address] [place], [place] [phone] Amber Quiroz MD [address] [place], [place] [phone] Health Maintenance Due Date Last Done Comments [...] Maintenance Results * Referral to Urology (09/25/2024) Amber Quiroz MD OUTPATIENT REFERRAL ORDERABLES F inal Result * Pathologist Review - CBC (09/03/2024 4:26 PM EST) Pathologist Review - CBC SEE NOTE [facility] Comment:Normochromic normocy tic anemia; white blood cells are mildlydecreased in number, but otherwise normal appearing.- Ray Viera M.D. Pathology Blood Venous blood specimen / Unknown 09/03/2024 4:26 PM EST 09/03/2024 6:14 PM EST Amber Quiroz MD LAB BLOOD ORDERABLES Final Resul t [facility] [address] [place] [address] [phone] * Vitamin B12/Folate, Serum Panel (09/03/2024 4:26 PM EST) Vitamin B12 247 200 - 900 pg/mL [facility] Comment:NORMAL 200-900 PG/ML INDETERMINATE 160-199 PG/ML DEFICIENT < 160 PG/ML Folate 9.9 > or = 4.0 ng/mL [facility] Comment:Reference Values:> o r = 4.0 ng/mL< 4.0 ng/mL suggests folate deficiency Methotrexate, aminopterin and folinic acid(leucovorin) are chemotherapeutic agents whose molecularstructures are similar to folate; therefore, the Architectfolate assay cannot be used for patients using these drugs. 09/03/2024 4:26 PM EST 09/03/2024 6:14 PM EST Amber Quiroz MD LAB BLOOD ORDERABLES Final Resul t Performing Organization Address [facility]/ZIP Co de Phone Number [facility] [address] [place] [phone] * TSH with Reflex to Free T4 (09/03/2024 4:26 PM EST) TSH reflex Free T4 1.08 0.32 - 4.0 uIU/mL [facility] Blood 09/03/2024 4:26 PM EST 09/03/2024 6:14 PM EST Amber Quiroz MD LAB BLOOD ORDERABLES Final Resul t Performing Organization Address City/[facility]/ZIP Co de Phone Number [facility] [address] [place] [phone] * (ABNORMAL) Lipid Panel with Reflex to Direct LDL (09/03/2024 4:26 PM EST) Triglycerides 112 <150 mg/dL [facility] Comment:Desirable Triglyceri de: less than 150 mg/dLBorderline High Triglyceride 150-199 mg/dLHigh Triglyceride: 200-499 mg/dLVery High Triglyceride: greater than or equal to 5OO mg/dL Cholesterol 183 <200 mg/dL [facility] Comment:Desirable Cholestero l: less than 200 mg/dLBorderline High Cholesterol: 200-239 mg/dLHigh Cholesterol: greater than 239 mg/dL LDL Cholesterol Calculated 112(H) <100 mg/dL [facility] Comment:Desirable LDL: less than 100 mg/dLNear Optimal/Above Optimal LDL: 110- 129 mg/dLBorderline High LDL: 130-159 mg/dLHigh LDL: 160-189 mg/dLVery High LDL: greater than or equal to 190 mg/dL HDL Cholesterol 49 >40 mg/dL [facility] Comment:Desirable HDL: great er than 40 mg/dL Note: This HDL assay may give artificially low results in patients with liver disease. Blood 09/03/2024 4:26 PM EST 09/03/2024 6:14 PM EST us Amber Quiroz MD LAB BLOOD ORDERABLES Final Resul t [facility] [address] [place] [phone] * (ABNORMAL) CBC auto differential (09/03/2024 4:26 PM EST) White Blood Count 4.3(L) 4.8 - 10.8 X10*3/uL [facility] Red Blood Count 4.34 4.20 - 5.50 X10*6/uL [facility] Hemoglobin 11.4(L) 12.0 - 16.0 g/dl [facility] Hematocrit 35.9(L) 37.0 - 47.0 % [facility] Mean Corpuscular Volume 82.7 80.0 - 98.0 fL [facility] Mean Corpuscular Hemoglobin 26.3(L) 27.0 - 33.0 pg [facility] Mean Corpuscular HGB Conc 31.8 31.0 - 35.0 g/dl [facility] Red Cell Distribution Width 15.3 11.0 - 16.0 % [facility] Platelet Count 277 160 - 400 X10*3/uL [facility] Mean Platelet Volume 10.5 9.4 - 12.3 fL [facility] Neutrophils Percent Auto 46.0 45 - 73 % [facility] Imm Gran Pct Auto 0.2 0.0 - 0.4 % [facility] Lymphocytes Percent Auto 45.1(H) 20 - 40 % [facility] Monocytes Percent Auto 6.8 2 - 11 % [facility] Eosinophils Percent Auto 1.4 0 - 4 % [facility] Basophils Percent Auto 0.5 0 - 2 % [facility] NRBC Pct Auto 0.0 0.0 - 0.2 /100WBC [facility] Neutrophils Absolute Auto 2.0 2.0 - 8.3 x10*3/uL [facility] Imm Gran Abs Auto 0.01 0.00 - 0.03 X10*3/uL [facility] Lymphocytes Absolute Auto 1.9 1.2 - 4.9 X10*3/uL [facility] Monocytes Absolute Auto 0.3 0.1 - 1.2 X10*3/uL [facility] Eosinophils Absolute Auto 0.1 0.0 - 0.4 X10*3/uL [facility] Basophils Absolute Auto 0.0 0.0 - 0.2 X10*3/uL [facility] NRBC Abs Auto 0.000 0.0 - 0.012 X10*3/uL [facility] Blood Venous blood specimen / Unknown 09/03/2024 4:26 PM EST 09/03/2024 6:14 PM EST us Amber Quiroz MD LAB BLOOD ORDERABLES Final Resul t [facility] [address] [place] [phone] * Iron And Total Iron Binding Capacity (09/03/2024 4:26 PM EST) Iron 69 30 - 160 mcg/dL [facility] Comment:Slight Hemolysis.Int erpret result with caution. Total Iron Binding Capacity 250 228 - 428 mcg/dL [facility] Percent Iron Saturation 28 15 - 50 % [facility] Unsaturated Iron Binding 181 ug/dL [facility] Blood Venous blood specimen / Unknown 09/03/2024 4:26 PM EST 09/03/2024 6:14 PM EST Amber Quiroz MD LAB BLOOD ORDERABLES Final Resul t Performing Organization Address City/[facility]/ZIP Co de Phone Number [facility] [address] [place] [phone] * Hemoglobin A1c (09/03/2024 4:26 PM EST) Hemoglobin A1c 5.6 <6.0 % [facility] Comment:Hemoglobin A1C Refer ence Range Adults: 4.8 - 6.0 % Non diabetic: < 6.0 % Goal: < 7.0 %Additional Action Suggested: > 8.0 %Note: Hemoglobin A1c results are invalid for patients with abnormal amounts of HbF. Blood transfusions may impact the HbA1c concentration in the patient sample. Estimated Average Glucose 114 mg/dL [facility] Comment:eAG = Estimated ave rage glucose which is %A1C expressed asaverage glucose, using the formula of the Q0H-HphglngFuvsrmg Glucose study (ADAG), Diabetes Care, Vol.31,#8,Jan. 2007 Blood Venous blood specimen / Unknown 09/03/2024 4:26 PM EST 09/03/2024 6:14 PM EST Amber Quiroz MD LAB BLOOD ORDERABLES Final Resul t Performing Organization Address [facility] Co de Phone Number [facility] [address] [place] [phone] * Ferritin (09/03/2024 4:26 PM EST) Ferritin 51 10 - 250 ng/mL [facility] Blood Venous blood specimen / Unknown 09/03/2024 4:26 PM EST 09/03/2024 6:14 PM EST us Amber Quiroz MD LAB BLOOD ORDERABLES Final Resul t [facility] [address] [place] [phone] [phone] * (ABNORMAL) Comprehensive Metabolic Panel (09/03/2024 4:26 PM EST) Sodium 143 135 - 145 mmol/L [facility] Potassium 3.9 3.3 - 5.1 mmol/L [facility] Comment:Slight Hemolysis.Int erpret result with caution. Chloride 111(H) 96 - 108 mmol/L [facility] Carbon Dioxide 23 22 - 29 mmol/L [facility] Anion Gap 13 12 - 20 [facility] Urea Nitrogen (BUN) 15 9 - 16 mg/dL [facility] Creatinine, Serum 0.66 0.5 - 1.4 mg/dL [facility] Estimated Glomerular Filt Rate >60 [facility] Comment:Chronic Kidney Disea se: Estimated GFR < 60 mL/min/[id number] Kidney Disease: Estimated GFR < 15 mL/min/1.73m2 Glucose 91 60 - 115 mg/dL [facility] Calcium 8.6 8.4 - 10.2 mg/dL [facility] Bilirubin, Total 0.4 0.0 - 1.0 mg/dL [facility] Aspartate Amino Transferase 28 5 - 31 U/L [facility] Comment:Slight Hemolysis.Int erpret result with caution. Alanine Aminotransferase 11 0 - 31 U/L [facility] Total Protein 8.0 6.5 - 8.0 g/dL [facility] Albumin Level 4.4 3.5 - 5.0 g/dL [facility] Alkaline Phosphatase 87 39 - 117 U/L [facility] Blood Venous blood specimen / Unknown 09/03/2024 4:26 PM EST 09/03/2024 6:14 PM EST us Amber Quiroz MD LAB BLOOD ORDERABLES Final Resul t Performing Organization Address [facility] Co de Phone Number [facility] [address] [place] [phone] * Urinalysis w/reflex microscopic (08/14/2024 11:57 AM EST) Color Urine Yellow [facility] Appearance Urine Clear [facility] PH 7.0 5.0 - 9.0 [facility] Glucose Urine UA Negative Negative mg/dL [facility] Urine Blood Negative Negative [facility] Specific [place] - Urine 1.015 1.005 - 1.025 [facility] Urine Protein Negative Neg-Trace mg/dL [facility] Urine Ketones Negative Negative mg/dL [facility] Nitrite Urine Negative Negative [facility] Leukocyte Esterase Urine Negative Negative [facility] 08/14/2024 11:5 7 AM EST 08/14/2024 12:00 PM EST Narrative [facility] - 08/14/2024 12:07 PM EST Urine, Clean Catch us Generic External Data Provider LAB URINE ORDERAB LES Final Result Performing Organization Address [facility] de Phone Number [facility] [address] [place] [phone] * CT Abdomen Pelvis w/o Contrast (08/14/2024 10:31 AM EST) Only the most recent of2 resultswithin the time period is included. Anatomical Region Laterality Modality Body, Pelvis, Abdomen Computed T omography 08/14/2024 10:3 1 AM EST Narrative 08/14/2024 11:34 AM EST ? [facility] ?[address] ?[place] [address] ? CT Scan Report ? Signed ? Patient: Marquez,Zelidez ?MR#: [id number] ?? [id number] ? : 1965 ?Acct:[id number] ? Age/Sex: 58 / F ?ADM Date: 08/14/24 ? Loc: HO.ED ? Attending Dr: ? Ordering Physician: Radha Crowder NP ?? Date of Service: 08/14/24 ?? Procedure(s): CT abdomen pelvis wo IV con ?? Accession Number(s): [id number] ? cc: Amber Quiroz MD; Radha Crowder NP ? Report Number: ?? [id number]: Total DLP = ??365.00 mGy-cm ?? EXAMINATION: [...] DD/ 1031 ? TD/TT: 08/14/24 1104 ? Materials Management Manager: ? Procedure Note True, Image - 08/14/[address] [address] [address] Scan Report Signed Patient: Heidi Marquez#: [id number] : 1965Acct:[id number] Age/Sex: 58 / FADM Date: 08/14/24 Loc: HO.ED Attending Dr: Ordering Physician: Radha Crowder NP Date of Service: 08/14/24 Procedure(s): CT abdomen pelvis wo IV con Accession Number(s): [id number] cc: Amber Quiroz MD; Radha Crowder NP Report Number: [id number]: Total DLP = 365.00 mGy-cm EXAMINATION: CT [...] Misha Curtis MD 08/14/2024 11:31 AM EST RP Dictated By: Misha Curtis MD Signed By: <Electronically signed by Misha Curtis MD in OV> 08/14/24 1131 DD/ 1031 TD/TT: 08/14/24 1104 Materials Management Manager: [facility] External Provider IMG CT PROCEDURES Final Result * Blood Culture (First) (07/15/2024 6:09 PM EST) Blood Venous blood specimen / Unknown 07/15/2024 6:09 PM EST 07/15/2024 6:14 PM EST Comment:Blood [facility] - 07/20/2024 8:14 PM EST Blood Culture (First) No growth after 5 days. Specimen Source: Blood Generic External Data Provider LAB MICROBIOLOGY - GENERAL ORDERABLES Final Result Performing Organization Address City/[facility]/ZIP Co de Phone Number [facility] [address] [place] [phone] * Blood Culture (Second) (07/15/2024 6:09 PM EST) Blood Venous blood specimen / Unknown 07/15/2024 6:09 PM EST 07/15/2024 6:14 PM EST Comment:Blood [facility] - 07/20/2024 8:14 PM EST Blood Culture (Second) No growth after 5 days. Specimen Source: Blood Generic External Data Provider LAB MICROBIOLOGY - GENERAL ORDERABLES Final Result Performing Organization Address City/[facility]/ZIP Co de Phone Number [facility] [address] [place] [phone] * Culture, Urine, Routine (07/15/2024 5:00 PM EST) Urine Urine specimen obtained by clean catch procedure / Unknown 07/15/2024 5:00 PM EST 07/15/2024 5:00 PM EST Comment:UACC Narrative [facility] - 07/17/2024 10:40 AM EST Urine Culture Report Result Urine Culture 10,000 to 50,000 cfu/ml Urine Culture Mixed bacterial geovanny characteristic of Urine Culture urogenital contamination. Specimen Source: Urine clean catch us Generic External Data Provider LAB MICROBIOLOGY - GENERAL ORDERABLES Final Result [facility] [address] [place] [phone] [phone] * (ABNORMAL) Urinalysis, Complete, with Reflex to Culture (07/15/2024 4:36 PM EST) Color Urine Other(A) [facility] Appearance Urine Hazy [facility] PH 5.5 5.0 - 9.0 [facility] Glucose Urine UA Negative Negative mg/dL [facility] Urine Blood Large (3+)(A) Negative [facility] Specific [place] - Urine 1.025 1.005 - 1.025 [facility] Urine Protein 100 (2+)(A) Neg-Trace mg/dL [facility] Urine Ketones Negative Negative mg/dL [facility] [facility] Nitrite Urine Positive(A) Negative [facility] Leukocyte Esterase Urine Negative Negative [facility] RBC Urine >20(A) 0 - 2 /HPF [facility] Urine WBC 0-5 0 - 5 /HPF [facility] Urine Squamous Epithelial Cell 3-5 0 - 2 /HPF [facility] Urine Bacteria None Seen None Seen [facility] Hyaline Casts, Urine 0-2 0 - 2 /LPF [facility] 07/15/2024 4:36 PM EST 07/15/2024 4:49 PM EST Narrative [facility] - 07/15/2024 4:59 PM EST [id number], Clean Catch us Generic External Data Provider LAB URINE ORDERAB LES Final Result [facility] [address] [place] [address] [phone] * (ABNORMAL) THINPREP TIS PAP AND HPV mRNA E6/E7 WITH REFLEX TO HPV 16,18/45 (07/30/2021 10:17 AM EST) Clinical Information: PM BLEEDING [facility] COMMENT SEE COMMENT FOUNDATI [...] has been evaluated with computer assisted technology. [facility] Roastmaster: SEE COMMENT [facility] Comment: CHRISTIE CT(ASCP) CT screening location: [address] ??[id number] General Categorization: EPITHELIAL CELL ABNORMALITY(A ) [facility] HPV nRNA E6/E7 Not Detected Not Detected [facility] Comment: Methodology: Mastic Man-Mediated Amplification This assay detects E6/E7 viral messenger RNA (mRNA) from 14 high-risk HPV types (16,18,31,33,35,39,45,51,52,56,58,59,66,68). ? The analytical performance characteristics of this assay have been determined by [employer]. The modifications have not been cleared or approved by the FDA. This assay has been validated pursuant to the CLIA regulations and is used for clinical purposes. ?? For additional information, please refer to http://education.Fancorps/faq/PEK176f4 (This link if provided for information/ educational purposes only.) Infection Shift in vaginal geovanny suggestive of bacterial vaginosis. [facility] Interpretation/Res ult: SEE COMMENT(A) [facility] Comment: Atypical Squamous Cells of Undetermined Significance (ASC-US) Rare cells are approaching low grade dysplasia. LMP: NONE GIVEN [facility] PATHOLOGIST: SEE COMMENT FOUND ATPENDING SALE TO [facility] Comment: Jennifer Branch M.D., Board Certified in Anatomic and Clinical Pathology (electronic signature) Consulting Pathologist [facility] [phone] Prev. BX: NONE GIVEN [facility] Prev. PAP: NONE GIVEN [facility] ON [facility] SOURCE: None given [facility] Statement Of Adequacy: SEE COMMENT [facility] Comment: Satisfactory for evaluation. Endocervical/transformation zone component present. 07/30/2021 10:1 7 AM EST us Saleem Maier MD LAB PATHOLOGY ORDERABLES Final R esult [facility] [address] from Last 3 Months or Most Recently Relevant to Health Maintenance Insurance [employer] C3 * Guarantor: John Marquez Account Type Relation to Patient Date of Phone Billing Address Personal/Family [place] [address] Care Teams Certified Nurse Midwife Relationship Specialty Start Date End Date Amber Quiroz MD [address] [place] [phone] PCP - General Family Medicine 07/03/18
--- OUTSIDE RECORDS SUMMARY | 2024-10-09 01:32 | XMS_ITS | Encounter Summary ---
Author Organization [facility] Address [address] [facility] 7 [place] [address] Care Team Providers Care Welfare Specialist Name Role Phone Amber Quiroz MD Primary Care Provider [phone] Encounter Details Date Type Department Care Team (Late st Contact Info) Description 11/16/2022 Abstract [facility] [address] [place] [address] [phone] Amber Quiroz MD [address] [place] [address] Social History Tobacco Use Types Packs/Day Years [...] Description 11/12/2024 1:30 PM EDT Office Visit [facility] [address] [place] [address] [phone] Amber Quiroz MD [address], [place] [phone] documented as of this encounter Visit Diagnoses Not on filedocumented in this encounter Care Teams Welfare Specialist Relationship Specialty Start Date End Date Amber Quiroz MD [address] [place] [address], [place] [address] PCP - General Family Medicine 07/03/18 documented as of this encounter
--- OUTSIDE RECORDS SUMMARY | 2024-10-09 01:32 | XMS_ITS | Encounter Summary ---
Author Organization [employer] Address [address] [facility] 7t [place] [address] Care Team Providers Care Community Living Instructor Name Role Phone Amber Quiroz MD Primary Care Provider [phone] Reason for Visit * Reason Comments Med Refill Encounter Details Date Type Department Care Team ([facility] st Contact Info) Description 06/01/2023 Refill [facility] [address] [place], [place] [phone] Amber Quiroz MD [address] [place], [place] [phone] Pain Social History Tobacco Use Types Packs/Day [...] the past 12 months, has t he [employer] oil or water company threatened to shut [...] 11/12/2024 1:30 PM EDT Office Visit [facility] [address] [place] [address] Amber Quiroz MD [address] [place] [address] documented as of this encounter Visit Diagnoses Diagnosis Pain Generalized pain documented in this encounter Care Teams Community Living Instructor Relationship Specialty Start Date End Date Amber Quiroz MD [address] [place] [address] PCP - General Family Medicine 07/03/18 documented as of this encounter
--- OUTSIDE RECORDS SUMMARY | 2024-10-09 01:32 | XMS_ITS | Encounter Summary ---
Author Organization [employer] [facility] Address [address] [facility] 7t [place] [address] Care Team Providers Care Skidway Worker Name Role Phone Amber Quiroz MD Primary Care Provider [phone] Encounter Details Date Type Department Care Team (Late st Contact Info) Description 03/22/2023 Orders Only [facility] [address] [place] [address] [phone] Amber Quiroz MD [address] [place] [phone] ASCUS of cervix with negative high risk [...] Description 11/12/2024 1:30 PM EDT Office Visit [facility] [address] [place] [address] [phone] Amber Quiroz MD [address] [place] [address] [phone] documented as of this encounter Visit Diagnoses Diagnosis ASCUS of cervix with negative high risk HPV- Primary History of cervical dysplasia Personal history of cervical dysplasia documented in this encounter Care Teams Skidway Worker Relationship Specialty Start Date End Date Amber Quiroz MD [address] [place] [phone] PCP - General Family Medicine 07/03/18 documented as of this encounter
--- OUTSIDE RECORDS SUMMARY | 2024-10-09 01:32 | XMS_ITS | Clinical Summary ---
Author Organization [facility] Address [address] [place] [address] Phone Care Team Providers Care Charcoal Unloader Name Role Phone Physician, No Pcp Primary Care Provider Unavaila ble Allergies Active Allergy Reactions Criticality Noted Date Comments Aspirin Congestion of the throat 08/21/2024 Ibuprofen Swallowing Problem 08/21/2024 Acetaminophen Swallowing Problem 08/21/2024 Medications No known medications Active Problems No known active problems Encounters Date Type Department Care Team Description 09/25/2024 Lab Requisition [facility] - Main Lab [address] [facility] [place] [address] Zachery Chi PA Calculus of ureter 08/21/2024 3:41 PM EST - 08/21/2024 7:08 PM EST Emergency [facility] Emergency [address] [place] [address] Bilateral flank pain (Primary Dx); [...] season) 2024 08/10/2021, 02/19/2021, 01/29/2021 Influenza Vaccine (Season Ended) 2025 03/22/2023, 04/02/2021, 06/29/2020, Additional history exists Hypertension/CHF/CAD Annual BMP Blood Test 08/21/2025 08/21/2024 DTaP,Tdap,and Td Vaccines (5 - Td or Tdap) 03/15/2029 03/15/2019, 12/21/2012, 11/05/2012, Additional history exists RSV Immunization Adult Patients (1 - 1-dose 75+ series) 11/20/2039 Hepatitis [...] age to complete this topic Meningococcal B Vaccine Aged Out No l onger eligible based on patient's age to complete [...] hormone intact (09/25/2024 3:15 PM EDT) Pathologist [facility] 31.1 18.5 - 88.0 pcg/mL LAB CHEMISTRY METHOD 09/25/2024 7:10 PM EDT [facility] Blood Venous blood specimen / Unknown 09/25/2024 3:15 PM EDT 09/25/2024 6:18 PM EDT Zachery LUO LAB BLOOD ORDERABLES Final Res ult [facility] [address] [place] [address], [place] [phone] * ECG-Annotated (08/22/2024) Provider Onbase MD ECG ORDERABLES Final Result * (ABNORMAL) Drug abuse screen 8a panel, urine (08/21/2024 6:02 PM EST) [facility] [address] Amphetamine Screen, Ur Negative Negative LAB CHEMISTRY METHOD 5 6:35 PM EST [facility] Comment:Certain OTC medicati ons containing ephedrine, phenylephrine, pseudoephedrine and phenylpropanolamine can cause false positive results. Barbiturate Screen, Ur Negative Negative LAB CHEMISTRY METHOD 5 6:35 PM EST [facility] Benzodiazepine Screen, Ur Negative Negative LAB CHEMISTRY METHOD 5 6:35 PM EST [facility] Cocaine Screen, Ur Positive(A ) Negative LAB CHEMISTRY METHOD 5 6:35 PM EST [facility] Opiate Screen, Ur Negative Negative LAB CHEMISTRY METHOD 5 6:35 PM EST [facility] Cannabinoid (THC) Screen, Ur Positive(A ) Negative LAB CHEMISTRY METHOD 5 6:35 PM EST [facility] Comment:Specimens from patie nts taking pantoprazole sodium (Protonix) have been shown to produce false positive results. Oxycodone Screen, Ur Negative Negative LAB CHEMISTRY METHOD 5 6:35 PM EST [facility] Fentanyl, Ur Negative Negative LAB CHEMISTRY METHOD 5 6:35 PM EST [facility] Urine Urine specimen obtained by clean catch procedure / Unknown Non-blood Collection / Unknown 08/21/2024 6:02 PM EST 08/21/2024 6:09 PM EST Narrative [facility] - 08/21/2024 6:35 PM EST Assay [...] Final Result [facility] [address] [place] [address], * (ABNORMAL) Urinalysis with reflex microscopic and culture (08/21/2024 6:00 PM EST) Specific [place] Urine 1.019 1.003 - 1.030 LAB URINALYSIS - AUTOMATED METHOD 08/21/2024 6:43 PM EST [facility] pH, Urine 6.5 5.0 - 8.0 pH LAB URINALYSIS - AUTOMATED METHOD 08/21/2024 6:43 PM [facility] Leukocytes, Urine Trace(A) Negative LAB URINALYSIS - AUTOMATED METHOD 08/21/2024 6:43 PM [facility] Nitrite, Urine Negative Negative LAB URINALYSIS - AUTOMATED METHOD 08/21/2024 6:43 PM [facility] Protein, Urine Negative <=Trace mg/dL LAB URINALYSIS - AUTOMATED METHOD 08/21/2024 6:43 PM [facility] Glucose, Urine Negative Negative mg/dL LAB URINALYSIS - AUTOMATED METHOD 08/21/2024 6:43 PM [facility] Ketones, Urine Negative Negative mg/dL LAB URINALYSIS - AUTOMATED METHOD 08/21/2024 6:43 PM [facility] Urobilinogen , Urine 1.0 0.2 - 1.0 mg/dL LAB URINALYSIS - AUTOMATED METHOD 08/21/2024 6:43 PM [facility] Bilirubin, Urine Negative Negative LAB URINALYSIS - AUTOMATED METHOD 08/21/2024 6:43 PM [facility] Blood, Urine Negative Negative LAB URINALYSIS - AUTOMATED METHOD 08/21/2024 6:43 PM [facility] RBC, Urine 3.9 0 - 4 /HPF LAB URINALYSIS - AUTOMATED METHOD 08/21/2024 6:43 PM [facility] WBC, Urine 4.4(H) 0 - 4 /HPF LAB URINALYSIS - AUTOMATED METHOD 08/21/2024 6:43 PM [facility] Squamous Epithelial, Urine >100(H) 0 - 60 /LPF LAB URINALYSIS - AUTOMATED METHOD 08/21/2024 6:43 PM [facility] Bacteria, Urine Moderate(A) Negative /HPF LAB URINALYSIS - AUTOMATED METHOD 08/21/2024 6:43 PM [facility] Hyaline Casts, Urine 2.4 0 - 3 /LPF LAB URINALYSIS - AUTOMATED METHOD 08/21/2024 6:43 PM EST [facility] Urine Urine specimen obtained by clean catch procedure / Unknown Non-blood Collection / Unknown 08/21/2024 6:00 PM EST 08/21/2024 6:09 PM EST Ramiro Miguelrussell Maier DO LAB URINE ORDERABLES Final Resu lt [facility] [address] [place] [address], [place] [phone] * Vaughn urine culture tube (08/21/2024 6:00 PM EST) Extra Tube Hold for add-ons. 08/21/2024 8:01 PM EST [facility] Comment:Auto resulted. Urine Urine specimen obtained by clean catch procedure / Unknown Non-blood Collection / Unknown 08/21/2024 6:00 PM EST 08/21/2024 6:09 PM EST Ramiro Ryan Livier [facility] LAB URINE ORDERABLES Final Resu lt Performing Organization Address [facility]/ZIP Co de Phone Number [facility] [address] [place] [address], [place] [phone] * Culture urine (08/21/2024 6:00 PM EST) Culture, Urine 10,000-49,000 CFU/mL Mixed urogenital geovanny, no uropathogens present. Suggest repeat specimen if clinically indicated. 08/22/2024 2:06 PM EST [facility] Urine Urine specimen obtained by clean catch procedure / Unknown Non-blood Collection / Unknown 08/21/2024 6:00 PM EST 08/21/2024 6:43 PM EST Ramiro Miguelrussell Maier DO LAB MICROBIOLOGY - GENERAL ORDE RABLES Final Result Performing Organization Address [facility] Co de Phone Number [facility] [address] [place] [address], * CT Head wo Contrast (08/21/2024 5:00 [...] GEMUSE QTc 443 ms GEMUSE P Wave [place] 58 degrees GEMUSE R [place] 11 degrees GEMUSE T [place] 43 degrees GEMUSE ECG Interpretation Normal sinus rhythm When compared with ECG of 16-SEP-2021 21:49, Nonspecific T wave abnormality no longer evident in Lateral leads Confirmed by YAQUELIN DE LA FUENTE ([id number]) on 08/21/2024 8:22:46 PM GEMUSE 08/21/2024 4:34 PM EST 08/21/2024 8:22 PM EST us Wayne Kay MD ECG ORDERABLES Final Result GEMUSE * (ABNORMAL) CBC auto differential (08/21/2024 3:50 PM EST) WBC 4.6(L) 4.8 - 10.8 K/mcL LAB HEMETOLOGY METHOD 08/21/2024 4:06 PM [facility] RBC 4.60 3.80 - 4.80 M/mcL LAB HEMETOLOGY METHOD 08/21/2024 4:06 PM [facility] Hemoglobin 12.2 11.5 - 16.0 g/dL LAB HEMETOLOGY METHOD 08/21/2024 4:06 PM [facility] Hematocrit 37.6 35.0 - 47.0 % LAB HEMETOLOGY METHOD 08/21/2024 4:06 PM [facility] MCV 82.6 79.0 - 98.0 FL LAB HEMETOLOGY METHOD 08/21/2024 4:06 PM [facility] MCH 26.8(L) 27.0 - 32.0 pcg LAB HEMETOLOGY METHOD 08/21/2024 4:06 PM [facility] MCHC 32.4 32.0 - 37.0 g/dL LAB HEMETOLOGY METHOD 08/21/2024 4:06 PM [facility] RDW 15.2(H) 11.0 - 15.0 % LAB HEMETOLOGY METHOD 08/21/2024 4:06 PM [facility] Platelets 235 130 - 400 K/mcL LAB HEMETOLOGY METHOD 08/21/2024 4:06 PM [facility] MPV 10.3 7.0 - 11.0 FL LAB HEMETOLOGY METHOD 08/21/2024 4:06 PM [facility] NRBC 0.0 <1.0 % LAB HEMETOLOGY METHOD 08/21/2024 4:06 PM [facility] NRBC Absolute 0.00 <0.10 K/mcL LAB HEMETOLOGY METHOD 08/21/2024 4:06 PM [facility] Neutrophils Relative 49.4 % LAB HEMETOLOGY METHOD 08/21/2024 4:06 PM [facility] Lymphocytes Relative 40.3 % LAB HEMETOLOGY METHOD 08/21/2024 4:06 PM [facility] Monocytes Relative 7.7 % LAB HEMETOLOGY METHOD 08/21/2024 4:06 PM [facility] Eosinophils Relative 2.2 % LAB HEMETOLOGY METHOD 08/21/2024 4:06 PM [facility] Basophils Relative 0.2 % LAB HEMETOLOGY METHOD 08/21/2024 4:06 PM [facility] Immature Granulocytes Relative 0.2 % LAB HEMETOLOGY METHOD 08/21/2024 4:06 PM [facility] Neutrophils Absolute 2.26 1.50 - 7.00 K/mcL LAB HEMETOLOGY METHOD 08/21/2024 4:06 PM [facility] Lymphocytes Absolute 1.84 1.00 - 5.00 K/mcL LAB HEMETOLOGY METHOD 08/21/2024 4:06 PM [facility] Monocytes Absolute 0.35 0.20 - 1.00 K/mcL LAB HEMETOLOGY METHOD 08/21/2024 4:06 PM [facility] Eosinophils Absolute 0.10 0.00 - 0.50 K/mcL LAB HEMETOLOGY METHOD 08/21/2024 4:06 PM EST [facility] Basophils Absolute 0.01 0.00 - 0.20 K/[facility] HEMETOLOGY METHOD 08/21/2024 4:06 PM EST [facility] Immature Granulocytes Absolute 0.01 0.00 - 0.03 K/[facility] HEMETOLOGY METHOD 08/21/2024 4:06 PM [facility] Blood Venous blood specimen / Unknown Venipuncture / Unknown 08/21/2024 3:50 PM EST 08/21/2024 3:56 PM EST [employer] [facility] BLOOD ORDERABLES Final Resu lt Performing Organization Address City/[facility]/ZIP Co de Phone Number [facility] [address] [place] [address], [place] [phone] * Lipase (08/21/2024 3:50 PM EST) Lipase 34 13 - 75 unit/L LAB CHEMISTRY METHOD 08/21/2024 4:26 PM [facility] Blood Venous blood specimen / Unknown Venipuncture / Unknown 08/21/2024 3:50 PM EST 08/21/2024 3:56 PM EST [employer] Davis Livier LAB BLOOD ORDERABLES Final Resu lt Performing Organization Address City/[facility]/ZIP Co de Phone Number [facility] [address] [place] [address], [place] [phone] * (ABNORMAL) Comprehensive metabolic panel (08/21/2024 3:50 PM EST) Sodium 144 133 - 145 mmol/L LAB CHEMISTRY METHOD 08/21/2024 4:26 PM [facility] Potassium 3.5 3.5 - 5.5 mmol/L LAB CHEMISTRY METHOD 08/21/2024 4:26 PM [facility] Chloride 113(H) 96 - 110 mmol/L LAB CHEMISTRY METHOD 08/21/2024 4:26 PM [facility] CO2 23 21 - 32 mmol/L LAB CHEMISTRY METHOD 08/21/2024 4:26 PM [facility] Anion Gap 8 3 - 11 LAB CHEMISTRY METHOD 08/21/2024 4:26 PM [facility] Glucose 108(H) 70 - 100 mg/dL LAB CHEMISTRY METHOD 08/21/2024 4:26 PM [facility] BUN 13 5 - 25 mg/dL LAB CHEMISTRY METHOD 08/21/2024 4:26 PM [facility] Creatinine 0.54 0.50 - 1.10 mg/dL LAB CHEMISTRY METHOD 08/21/2024 4:26 PM [facility] eGFR 106 >=60 mL/min/1. 73m2 LAB CHEMISTRY METHOD 08/21/2024 4:26 PM [facility] Comment:Calculation based on the??Chronic Kidney Disease Epidemiology Collaboration (CKD-EPI) equation refit??without adjustment for race. BUN/Creatinine Ratio 24.1 LAB CHEMISTRY METHOD 08/21/2024 4:26 PM [facility] Calcium 9.3 8.5 - 10.5 mg/dL LAB CHEMISTRY METHOD 08/21/2024 4:26 PM [facility] AST (SGOT) 27 10 - 42 unit/L LAB CHEMISTRY METHOD 08/21/2024 4:26 PM [facility] ALT (SGPT) 36 10 - 60 unit/L LAB CHEMISTRY METHOD 08/21/2024 4:26 PM [facility] Alkaline Phosphatase 109 42 - 121 unit/L LAB CHEMISTRY METHOD 08/21/2024 4:26 PM [facility] Total Protein 7.2 6.0 - 8.0 g/dL LAB CHEMISTRY METHOD 08/21/2024 4:26 PM [facility] Albumin 3.9 3.2 - 5.0 g/dL LAB CHEMISTRY METHOD 08/21/2024 4:26 PM EST [facility] Total Bilirubin 0.2 0.0 - 1.4 mg/dL LAB CHEMISTRY METHOD 08/21/2024 4:26 PM EST [facility] Blood Venous blood specimen / Unknown Venipuncture / Unknown 08/21/2024 3:50 PM EST 08/21/2024 3:56 PM EST us Ramiro Maier DO LAB BLOOD ORDERABLES Final Resu lt [facility] [address] [place] [address], [place] [phone] from Last 3 Months Insurance MEDICAID - [place] Care Teams Charcoal Unloader Relationship Specialty Start Date End Date Physician, No Pcp PCP - General 08/21/24
--- OUTSIDE RECORDS SUMMARY | 2024-10-09 01:32 | XMS_ITS | Encounter Summary ---
Author Organization [facility] Address [address] [place] [address] Care Team Providers Care Claims Representative Name Role Phone Physician, No Pcp Primary Care Provider Unavaila ble Encounter Details Date Type Department Care Team (Late st Contact Info) Description 09/25/2024 Lab Requisition [facility] - Main Lab [address] [facility] [place] [address] Zachery Chi PA [address] [place] [address] Calculus of ureter Social History [...] LAB CHEMISTRY METHOD 09/25/2024 7:10 PM EDT [facility] Blood Venous blood specimen / Unknown 09/25/2024 3:15 PM EDT 09/25/2024 6:18 PM EDT us Zachery Chi PA LAB BLOOD ORDERABLES Final Res ult [facility] [address] [place] [address], documented in this encounter Visit Diagnoses Diagnosis Calculus of ureter documented in this encounter Care Teams Claims Representative Relationship Specialty Start Date End Date Physician, No Pcp PCP - General 08/21/24 documented as of this encounter
--- OUTSIDE RECORDS SUMMARY | 2024-10-09 01:32 | XMS_ITS | Encounter Summary ---
Author Organization [employer] Address [address] [facility] 7 [place] [address] Care Team Providers Care Manager Maintenance Name Role Phone Amber Quiroz MD Primary Care Provider [phone] Reason for Visit * Reason Comments Med Refill Encounter Details Date Type Department Care Team ([facility] st Contact Info) Description 11/29/2023 Refill [facility] [address] [place], [place] [phone] Charleen Latif MD [address] [place], [place] [phone] Nephrolithiasis Social History Tobacco Use Types Packs/Day [...] t he electric, gas, oil or water [employer] threatened to shut off services in your [...] 11/12/2024 1:30 PM EDT Office Visit [facility] [address] [place] [address] Amber Quiroz MD [address] [place] [phone] documented as of this encounter Visit Diagnoses Diagnosis Nephrolithiasis Calculus of kidney documented in this encounter Care Teams Manager Maintenance Relationship Specialty Start Date End Date Amber Quiroz MD [address] [place] [phone] PCP - General Family Medicine 07/03/18 documented as of this encounter
--- OUTSIDE RECORDS SUMMARY | 2024-10-09 01:32 | XMS_ITS | Encounter Summary ---
Author Organization [employer] Address [address] [facility] 7t [place] [address] Care Team Providers Care Contact Officer Name Role Phone Amber Quiroz MD Primary Care Provider [phone] Reason for Visit * Reason Comments Med Refill Encounter Details Date Type Department Care Team (Late st Contact Info) Description 04/26/2023 Refill [facility] [address] [place] [phone] Alan Partida MD [address] [place] [phone] Moderate persistent asthma without complication; Nausea Social [...] 11/12/2024 1:30 PM EDT Office Visit [facility] [address] [place] [address] [phone] Amber Quiroz MD [address] [place] [phone] documented as of this encounter Visit Diagnoses Diagnosis Moderate persistent asthma without complication Nausea Nausea alone documented in this encounter Care Teams Contact Officer Relationship Specialty Start Date End Date Amber Quiroz MD [address] [place] [address] PCP - General Family Medicine 07/03/18 documented as of this encounter
--- OUTSIDE RECORDS SUMMARY | 2024-10-09 01:32 | XMS_ITS | Encounter Summary ---
Author Organization [employer] Address [address] 7t [place] [address] Care Team Providers Care Creative Writing Professor Name Role Phone Amber Quiroz MD Primary Care Provider [phone] Encounter Details Date Type Department Care Team (Late st Contact Info) Description 09/04/2024 Orders Only [facility] MED[facility]INE 230 [place], [place] [phone] Amber Quiroz MD 230 [place], [place] [phone] Routine screening for STI (sexually transmitted infection) [...] t he electric, gas, oil or water [employer] threatened to shut off services in your [...] Visit [facility] MED[facility]INE [address] [place] [address] Amber Quiroz MD [address] [place] [phone] Scheduled Orders Name Type Priority Associated Diagnoses [...] disease documented in this encounter Care Teams Creative Writing Professor Relationship Specialty Start Date End Date Amber Quiroz MD [address] [place] [address], [place] [address] PCP - General Family Medicine 07/03/18 documented as of this encounter
--- OUTSIDE RECORDS SUMMARY | 2024-10-09 01:32 | XMS_ITS | Encounter Summary ---
Author Organization [employer] Address [address] [facility] [address] 7t [place] [address] Care Team Providers Care Staff Auditor Name Role Phone Amber Quiroz MD Primary Care Provider [phone] Encounter Details Date Type Department Care Team (Late st Contact Info) Description 12/12/2023 Orders Only [facility] 230 [place], [place] [phone] Amber Quiroz MD 230 [place], [place] [phone] Nephrolithiasis (Primary Dx) Social History Tobacco Use [...] Description 11/12/2024 1:30 PM EDT Office Visit [facility] 230 [place] [address] Amber Quiroz MD 230 [place] [address] documented as of this encounter Visit Diagnoses Diagnosis Nephrolithiasis- Primary Calculus of kidney documented in this encounter Care Teams Staff Auditor Relationship Specialty Start Date End Date Amber Quiroz MD [address] [place] [address] PCP - General Family Medicine 07/03/18 documented as of this encounter
--- OUTSIDE RECORDS SUMMARY | 2024-10-09 01:32 | XMS_ITS | Encounter Summary ---
Author Organization [employer] Address [address] [address] [address] [facility] [address] 7t [place] [address] Care Team Providers Care Air And Missile Defense Crewmember Name Role Phone Amber Quiroz MD Primary Care Provider [phone] Encounter Details Date Type Department Care Team (Late st Contact Info) Description 10/08/2024 Telephone [facility] [address] [place], [place] [phone] Amber Quiroz MD 230 [place], [place] [phone] Social History Tobacco Use Types Packs/Day Years [...] encounter Miscellaneous Notes * Telephone Encounter - Magda Haro LPN - 10/08/2024 1:41 PM EDT Received fax from [facility] requesting refill on Tramadol 50 mg. documented in this encounter Plan of Treatment Upcoming Encounters Date Type Department Care Team (Late st Contact Info) Description 11/12/2024 1:30 PM EDT Office Visit [facility] MEDICINE [address] [place] [address] Amber Quiroz MD 230 [place] [address] documented as of this encounter Visit Diagnoses Not on filedocumented in this encounter Care Teams Air And Missile Defense Crewmember Relationship Specialty Start Date End Date Amber Quiroz MD 230 [place] [address] PCP - General Family Medicine 07/03/18 documented as of this encounter
--- OUTSIDE RECORDS SUMMARY | 2024-10-09 01:32 | XMS_ITS | Encounter Summary ---
Author Organization [employer] Address [address] [facility] 7t [place] [address] Care Team Providers Care Staff Radiation Therapist Name Role Phone Amber Quiroz MD Primary Care Provider [phone] Reason for Visit * Reason Onset Date Comments Med Refill 10/08/2024 Encounter Details Date Type Department Care Team ([facility] st Contact Info) Description 10/08/2024 Refill [facility] MED & PEDS 505 [place] [address] Rachelle Lucero, RN 505 [place] [address] Nephrolithiasis Social History Tobacco Use Types Packs/Day [...] t he electric, gas, oil or water [employer] threatened to shut off services in your [...] Description 11/12/2024 1:30 PM EDT Office Visit [facility] 230 [place], [place] [phone] Amber Quiroz MD [address] [place] [address] documented as of this encounter Visit Diagnoses Diagnosis Nephrolithiasis Calculus of kidney documented in this encounter Care Teams Staff Radiation Therapist Relationship Specialty Start Date End Date Amber Quiroz MD [address] [place] [address] [phone] PCP - General Family Medicine 07/03/18 documented as of this encounter
--- OUTSIDE RECORDS SUMMARY | 2024-10-09 01:32 | XMS_ITS | Encounter Summary ---
Author Organization [employer] Address [address] [facility] [address] [facility] [facility] [address] 7t [place] [address] Care Team Providers Care Dude Wrangler Name Role Phone Amber Quiroz MD Primary Care Provider [phone] Encounter Details Date Type Department Care Team ([facility] st Contact Info) Description 11/24/2023 Telephone [facility] MED[facility]INE 230 [place], [place] [phone] Amber Quiroz MD 230 [place], [place] [phone] Social History Tobacco Use Types Packs/Day Years [...] PM EDT Office Visit [facility] MED[facility]INE 230 [place] [address] Amber Quiroz MD 230 [place] [address] documented as of this encounter Visit Diagnoses Not on filedocumented in this encounter Care Teams Dude Wrangler Relationship Specialty Start Date End Date Amber Quiroz MD 230 [place] [address] PCP - General Family Medicine 07/03/18 documented as of this encounter
--- OUTSIDE RECORDS SUMMARY | 2024-10-09 01:32 | XMS_ITS | Encounter Summary ---
Author Organization [employer] Address [address] [facility] 7t [place] [address] Care Team Providers Care Informatics Educator Name Role Phone Amber Quiroz MD Primary Care Provider [phone] Reason for Visit * Reason Comments Med Refill Encounter Details Date Type Department Care Team ([facility] st Contact Info) Description 10/07/2024 Refill [facility] MEDICINE 230 [place], [place] [phone] Amber Quiroz MD 230 [place], [place] [phone] Nausea Social History Tobacco Use Types Packs/Day [...] the past 12 months, has t he [employer], [employer], oil or water [employer] threatened to shut off services in your [...] Description 11/12/2024 1:30 PM EDT Office Visit [facility] MEDICINE [address] [place] [address] Amber Quiroz MD [address] [place] [address] documented as of this encounter Visit Diagnoses Diagnosis Nausea Nausea alone documented in this encounter Care Teams Informatics Educator Relationship Specialty Start Date End Date Amber Quiroz MD [address] [place] [address] PCP - General Family Medicine 07/03/18 documented as of this encounter
--- OUTSIDE RECORDS SUMMARY | 2024-10-09 01:32 | XMS_ITS | Encounter Summary ---
Author Organization [facility] Address [address] [facility] 7t [place] [address] Care Team Providers Care Powerbuilder Name Role Phone Amber Quiroz MD Primary Care Provider [phone] Encounter Details Date Type Department Care Team (Late st Contact Info) Description 12/12/2022 Orders Only [facility] MEDICINE [address] [place] [phone] Anabell Martinez LPN Social History Tobacco Use [...] Description 11/12/2024 1:30 PM EDT Office Visit [facility] [address] [place] [address] Amber Quiroz MD [address] [place] [address] documented as of this encounter Visit Diagnoses Not on filedocumented in this encounter Care Teams Powerbuilder Relationship Specialty Start Date End Date Amber Quiroz MD [address] [place] [address] PCP - General Family Medicine 1/1/19 documented as of this encounter
--- OUTSIDE RECORDS SUMMARY | 2024-10-09 01:32 | XMS_ITS | Encounter Summary ---
Author Organization [employer] Address 75 [facility] 7t [place] [address] Care Team Providers Care Director Community Center Name Role Phone Amber Quiroz MD Primary Care Provider [phone] Reason for Visit * Reason Onset Date Comments Appointment Request 11/22/2023 Encounter Details Date Type Department Care Team ([facility] st Contact Info) Description 11/22/2023 Telephone [facility] MEDICINE 230 [place], [place] [phone] Amber Quiroz MD 230 [place], [place] [phone] Appointment Request Social History Tobacco Use Types [...] Miscellaneous Notes * Telephone Encounter - Luis Meet - 11/22/2023 2:05 PM EDT Tc from pt requesting to reschedule HDF appt for today, pt stated she wasn't able to make it due tosleep difficulty. Please contact pt at [phone]. documented in this encounter Plan of Treatment Upcoming Encounters Date Type Department Care Team (Late st Contact Info) Description 11/12/2024 1:30 PM EDT Office Visit [facility]INE 230 [place] [address] Amber Quiroz MD 230 [place] [address] documented as of this encounter Visit Diagnoses Not on filedocumented in this encounter Care Teams Director Community Center Relationship Specialty Start Date End Date Amber Quiroz MD 230 [place] [address] PCP - General Family Medicine 07/03/18 documented as of this encounter
--- OUTSIDE RECORDS SUMMARY | 2024-10-09 01:32 | XMS_ITS | Encounter Summary ---
Author Organization [employer] Address [address] [facility] 7t [place] [address] Care Team Providers Care Building Drafter Name Role Phone Amber Quiroz MD Primary Care Provider [phone] Reason for Visit * Reason Onset Date Comments Nurse Triage 01/11/2024 Encounter Details Date Type Department Care Team ([facility] st Contact Info) Description 01/11/2024 Telephone [facility] MEDICINE 230 [place], [place] [phone] Amebr Quiroz MD 230 [place], [place] [phone] Nurse Triage Social History Tobacco Use Types [...] t he electric, gas, oil or water [employer] threatened to shut off services in your [...] HDF appt tomorrow at 1030am 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 RX updated with pending HDF. Team tasked that if medication available from [facility]CP for [facility] * Telephone Encounter - Lacy Sahni LPN - 01/11/2024 3:31 PM EDT Triage in process. Patient requesting pain medication for kidney stone pain in [facility] 01/07/24-01/08/24. Patient not seeing any stones passing. [...] worse Override Notes: Seen and treated at [facility] known kidney stones wants something for pain [...] Description 11/12/2024 1:30 PM EDT Office Visit [facility] MEDICINE [address] [place] [address] Amber Quiroz MD [address] [place] [address] [phone] documented as of this encounter Visit Diagnoses Not on filedocumented in this encounter Care Teams Building Drafter Relationship Specialty Start Date End Date Amber Quiroz MD [address] [place] [address] [phone] PCP - General Family Medicine 07/03/18 documented as of this encounter
--- OUTSIDE RECORDS SUMMARY | 2024-10-09 01:32 | XMS_ITS | Encounter Summary ---
Author Organization [employer] [facility] Address [address] [facility] 7 [place] [address] Care Team Providers Care Newspaper Delivery Counselor Name Role Phone Amber Quiroz MD Primary Care Provider [phone] Reason for Visit * Reason Comments Med Refill Encounter Details Date Type Department Care Team (Late st Contact Info) Description 04/26/2023 Refill [facility] MEDICINE [address] [place] [address] [phone] Amber Quiroz MD [address] [place] [address] Nausea Social History Tobacco Use Types Packs/Day [...] Description 11/12/2024 1:30 PM EDT Office Visit [facility] MEDICINE [address] [place] [address] [phone] Amber Quiroz MD [address] [place] [address] documented as of this encounter Visit Diagnoses Diagnosis Nausea Nausea alone documented in this encounter Care Teams Newspaper Delivery Counselor Relationship Specialty Start Date End Date Amber Quiroz MD [address] [place] [address] PCP - General Family Medicine 07/03/18 documented as of this encounter
--- OUTSIDE RECORDS SUMMARY | 2024-10-09 01:32 | XMS_ITS | Encounter Summary ---
Author Organization [employer] Address 75 [facility] 7t [place] [address] Care Team Providers Care Marketing Communications Leader Name Role Phone Amber Quiroz MD Primary Care Provider [phone] Reason for Visit * Reason Onset Date Comments Med Refill 01/10/2024 Encounter Details Date Type Department Care Team ([facility] st Contact Info) Description 01/10/2024 Telephone [facility] MEDICINE 230 [place], [place] [phone] Amber Quiroz MD 230 [place], [place] [phone] Med Refill Social History Tobacco Use Types [...] immediate release tablet To be sent to: [facility] - [place], [place] - [address] [place] [address] documented in this encounter Plan of Treatment Upcoming Encounters Date Type Department Care Team (Late st Contact Info) Description 11/12/2024 1:30 PM EDT Office Visit [facility] MEDICINE 230 [place] [address] Amber Quiroz MD 230 [place] [address] documented as of this encounter Visit Diagnoses Not on filedocumented in this encounter Care Teams Marketing Communications Leader Relationship Specialty Start Date End Date Amber Quiroz MD 230 [place] [address] PCP - General Family Medicine 07/03/18 documented as of this encounter
--- OUTSIDE RECORDS SUMMARY | 2024-10-09 01:32 | XMS_ITS | Encounter Summary ---
Author Organization [employer] Address [address] [facility] 7t [place] [address] Care Team Providers Care Gyroscope Technician Name Role Phone Amber Quiroz MD Primary Care Provider Encounter Details Date Type Department Care Team (Late st Contact Info) Description 07/28/2022 Orders Only [facility] [address] [place] [address] Anabell Martinez LPN Social History Tobacco Use [...] Description 11/12/2024 1:30 PM EDT Office Visit [facility] [address] [place] [address] Amber Quiroz MD [address] [place] [address] documented as of this encounter Procedures Procedure [...] (08/02/2022 12:29 AM EST) Color Urine Yellow [facility] Appearance Urine Turbid [facility] PH 6.5 5.0 - 9.0 [facility] Glucose Urine UA Negative Negative mg/dL [facility] Urine Blood Trace(A) Negative [facility] Specific [place] - Urine 1.020 1.005 - 1.025 [facility] Urine Protein 30 (1+)(A) Neg-Trace mg/dL [facility] Urine Ketones Negative Negative mg/dL [facility] Nitrite Urine Negative Negative [facility] Leukocyte Esterase Urine Large (3+)(A) Negative [facility] RBC Urine 0-2 0 - 2 /HPF [facility] Urine WBC >50(A) 0 - 5 /HPF [facility] Urine Squamous Epithelial Cell 6-10 0 - 2 /HPF [facility] Urine Bacteria 1+ None Seen [facility] Hyaline Casts, Urine 3-5 0 - 2 /LPF [facility] 08/02/2022 12:2 9 AM EST 08/02/2022 12:31 AM EST Narrative [facility] - 08/02/2022 12:50 AM EST Urine, Clean Catch us [facility] External Provider LAB URI NE ORDERABLES Final Result [facility] [address] [place] [phone] * SARS-CoV-2 RNA, Influenza A/B, and RSV RNA, Ql NAAT (08/02/2022 12:17 AM EST) Influenza A PCR NEGATIVE Negative [facility] Influenza B PCR NEGATIVE Negative [facility] Resp Syncy Virus RNA Qual PCR NEGATIVE Negative [facility] SARS COV2 PCR NEGATIVE Negative [facility] SARS/Flu/RSV Note See Note [facility] Comment:All test results mus t be [...] use by authorized laboratories.Testing performed on the [employer] GeneXpert utilizingreal-time RT-PCR.All SARS CoV2 and positive influenza A/B results arereported to [facility]. 08/02/2022 12:1 7 AM EST 08/02/2022 12:19 AM EST [facility] Exter nal Provider LAB MICROBIOLOGY - GENERAL ORDERABLES Final Result [facility] [address] [place] [phone] * (ABNORMAL) Basic Metabolic Panel (08/02/2022 12:17 AM EST) Sodium 140 135 - 145 mmol/L [facility] Potassium 3.9 3.3 - 5.1 mmol/L [facility] Chloride 105 96 - 108 mmol/L [facility] Carbon Dioxide 24 22 - 29 mmol/L [facility] Anion Gap 15 12 - 20 [facility] Urea Nitrogen (BUN) 14 9 - 16 mg/dL [facility] Creatinine, Serum 0.75 0.5 - 1.4 mg/dL [facility] Creatinine Clr Calc Pharmacy 71.4 [facility] Comment:Provided height and weight: 162.56 cm,63.503 kg.eGFR (calculated from the MDRD study equation) and eCrCl(calculated from the Cockcroft-Gault equation) are based ondifferent parameters and may not yield comparable results.If eCrCl result is absurd, please check patient'sheight/weight. Estimated Glomerular Filt Rate >60 [facility] Comment:NOTE: For -Am erican individuals, multiply the result by 1.210.Chronic Kidney Disease: Estimated GFR < 60 mL/min/1.16s7Lnuiym Kidney Disease: Estimated GFR < 15 mL/min/1.73m2 Glucose 119(H) 60 - 115 mg/dL [facility] Calcium 9.0 8.4 - 10.2 mg/dL [facility] 08/02/2022 12:1 7 AM EST 08/02/2022 12:19 AM EST [facility] External Provider LAB BLO OD ORDERABLES Final Result [facility] [address] [place] [address] [phone] * (ABNORMAL) CBC auto differential (08/02/2022 12:17 AM EST) White Blood Count 6.4 4.8 - 10.8 X10*3/uL [facility] Red Blood Count 3.96(L) 4.20 - 5.50 X10*6/uL [facility] Hemoglobin 10.8(L) 12.0 - 16.0 g/dl [facility] Hematocrit 33.0(L) 37.0 - 47.0 % [facility] Mean Corpuscular Volume 83.3 80.0 - 98.0 fL [facility] Mean Corpuscular Hemoglobin 27.3 27.0 - 33.0 pg [facility] Mean Corpuscular HGB Conc 32.7 31.0 - 35.0 g/dl [facility] Red Cell Distribution Width 14.2 11.0 - 16.0 % [facility] Platelet Count 202 160 - 400 X10*3/uL [facility] Mean Platelet Volume 9.2(L) 9.4 - 12.3 fL [facility] Neutrophils Percent Auto 68.5 45 - 73 % [facility] Imm Gran Pct Auto 0.2 0.0 - 0.4 % [facility] Lymphocytes Percent Auto 21.9 20 - 40 % [facility] Monocytes Percent Auto 8.6 2 - 11 % [facility] Eosinophils Percent Auto 0.5 0 - 4 % [facility] Basophils Percent Auto 0.3 0 - 2 % [facility] NRBC Pct Auto 0.0 0.0 - 0.2 /100WBC [facility] Neutrophils Absolute Auto 4.4 2.0 - 8.3 x10*3/uL [facility] Imm Gran Abs Auto 0.01 0.00 - 0.03 X10*3/uL [facility] Lymphocytes Absolute Auto 1.4 1.2 - 4.9 X10*3/uL [facility] Monocytes Absolute Auto 0.6 0.1 - 1.2 X10*3/uL [facility] Eosinophils Absolute Auto 0.0 0.0 - 0.4 X10*3/uL [facility] Basophils Absolute Auto 0.0 0.0 - 0.2 X10*3/uL [facility] NRBC Abs Auto 0.000 0.0 - 0.012 X10*3/uL [facility] 08/02/2022 12:1 7 AM EST 08/02/2022 12:19 AM EST us [facility] External Provider LAB BLO OD ORDERABLES Final Result [facility] [address] [place] [address] [phone] * Culture, Urine, Routine (08/02/2022 12:00 AM EST) 08/02/2022 08/02/2022 7:3 1 AM EST Comment:UACC Narrative [facility] - 08/03/2022 9:19 AM EST Urine Culture No growth. Specimen Source: Urine clean catch [facility] Exter nal Provider LAB MICROBIOLOGY - GENERAL ORDERABLES Final Result Performing Organization Address City/State/[facility] Co de Phone Number [facility] [address] [place] [address] [phone] documented in this encounter Visit Diagnoses Not on filedocumented in this encounter Care Teams Gyroscope Technician Relationship Specialty Start Date End Date Amber Quiroz MD [address] [place] [phone] PCP - General Family Medicine 07/03/18 documented as of this encounter
--- OUTSIDE RECORDS SUMMARY | 2024-10-09 01:32 | XMS_ITS | Encounter Summary ---
Author Organization [employer] Address [address] [facility] 7t [place] [address] Care Team Providers Care Heavy Duty Mechanic Name Role Phone Amber Quiroz MD Primary Care Provider [phone] Reason for Visit * Reason Onset Date Comments Med Refill 06/21/2024 Encounter Details Date Type Department Care Team ([facility] st Contact Info) Description 06/21/2024 Telephone [facility] MEDICINE 230 [place], [place] [phone] Amber Quiroz MD 230 [place], [place] [phone] Med Refill Social History Tobacco Use Types [...] extra strength with no relief. Please advise. MAILMASTER checked 06/21/24. Last refill of Oxycodone 5mg 11/30/23 qty 12. * Telephone Encounter - Gemma Oliveira - 06/21/2024 10:12 AM EST TC from pt requesting medication refill. Medications needing refill : oxyCODONE (Oxy-IR) 5 MG immediate release capsule To be sent to: [facility] - [place], [place] - [address] [facility] documented in this encounter Plan of Treatment Upcoming Encounters Date Type Department Care Team (Late st Contact Info) Description 11/12/2024 1:30 PM EDT Office Visit [facility] MEDICINE [address] [place] [address] Amber Quiroz MD 230 [place] [address] documented as of this encounter Visit Diagnoses Not on filedocumented in this encounter Care Teams Heavy Duty Mechanic Relationship Specialty Start Date End Date Amber Quiroz MD 230 [place] [address] PCP - General Family Medicine 07/03/18 documented as of this encounter
--- OUTSIDE RECORDS SUMMARY | 2024-10-09 01:32 | XMS_ITS | Encounter Summary ---
Author Organization [employer] Address [address] [facility] 7t [place] [address] Care Team Providers Care Community Support Specialist Name Role Phone Amber Quiroz MD Primary Care Provider [phone] Encounter Details Date Type Department Care Team (Late st Contact Info) Description 04/05/2023 Orders Only [facility]EDS [address] [place] [address] Anabell Martinez LPN Social History Tobacco Use [...] Description 11/12/2024 1:30 PM EDT Office Visit [facility] MEDICINE 230 [place] [address] Amber Quiroz MD 230 [place], [place] [phone] documented as of this encounter Visit Diagnoses Not on filedocumented in this encounter Care Teams Community Support Specialist Relationship Specialty Start Date End Date Amber Quiroz MD 230 [place], [place] [phone] PCP - General Family Medicine 07/03/18 documented as of this encounter
[2024-10-09 01:39] LABS: Bacteria Urine 4+ (None Seen); Calcium Oxalate Crystals Urine Present; RBC Urine 0-2 /HPF (0-2); UACC Culture Trigger YES
[2024-10-09 01:49] LABS: Alanine Aminotransferase 25 U/L (0-31); Alkaline Phosphatase 106 U/L (39-117); Anion Gap 14 (12-20); Aspartate Amino Transferase 29 U/L (5-31); Bilirubin Total 0.2 mg/dL (0.0-1.0); Blood Urea Nitrogen 20 mg/dL (9-16); Carbon Dioxide 21 mmol/L (22-29); Chloride 111 mmol/L (96-108); Creatinine Clr Calc Pharmacy 73.4; Estimated Glomerular Filt Rate > 60; Glucose Random 158 mg/dL (60-115); Lipase 120 U/L (8-78); Potassium 3.2 mmol/L (3.3-5.1); Sodium 143 mmol/L (135-145); Total Protein 6.7 g/dL (6.5-8.0)
[2024-10-09] MEDS: 0.9 % Sodium Chloride 1,000 ML 999 ML IV (02:20)
[2024-10-09] MEDS: ondansetron HCL 4 MG/2 ML VIAL IVPUSH ×2 (02:23→03:52)
[2024-10-09] MEDS: Morphine Sulfate 4 MG/ML CARTRIDGE IVPUSH ×2 (02:23→03:52)
[2024-10-09 02:24] VITALS: BP 120/68; PULSE 70; RESP 16; O2SAT 97
[2024-10-09 03:53] VITALS: BP 136/74; PULSE 70; RESP 18; TEMP 36.8; O2SAT 99
--- NOTE | 2024-10-09 04:13 | ED.FEMALEGU ---
HPI - Female Genitourinary General Chief complaint: Urogenital-Female Stated complaint: KIDNEY PAIN/CHEST PAIN Time Seen by Provider: 10/09/24 02:09 Source: patient Limitations: no limitations History of Present Illness ED Provider: Mercedes Valencia PA-C HPI Narrative: 58-year-old female with a history of kidney stones, recurrent urinary tract infections, hypertension, hyperlipidemia, constipation, who presents with bilateral flank pain. Patient states she was seen by her urologist today, she was diagnosed with renal colic. She states she was prescribed nausea and pain medication, but was not able to crab picker her meds. Patient did not have imaging by urology. Related Data Home Medications ?Medication ?Instructions ?Recorded ?Confirmed albuterol sulfate 90 mcg/actuation 2 puff PO Q4-6H PRN dyspnea 11/26/20 11/26/20 aerosol inhaler (ProAir HFA) amlodipine 10 mg tablet 1 tab PO DAILY 11/26/20 11/26/20 ascorbic acid (vitamin C) 250 mg 1 tab PO BID 11/26/20 11/26/20 tablet atorvastatin 10 mg tablet 1 tab PO DAILY 11/26/20 11/26/20 clonidine HCl 0.2 mg tablet 1 tab PO BID PRN panic attack 11/26/20 11/26/20 cyanocobalamin (vitamin B-12) 500 1 tab PO DAILY 11/26/20 11/26/20 mcg tablet docusate sodium 100 mg capsule 1 - 2 cap PO BEDTIME PRN 11/26/20 11/26/20 constipation fluoxetine 20 mg capsule 3 cap PO QAM 11/26/20 11/26/20 gabapentin 100 mg capsule 1 cap PO TID PRN anxiety 11/26/20 11/26/20 gabapentin 400 mg capsule 1 cap PO BEDTIME 11/26/20 11/26/20 loratadine 10 mg tablet 1 tab PO DAILY 11/26/20 11/26/20 loratadine 10 mg tablet 1 tab PO DAILY 11/26/20 11/26/20 mirtazapine 30 mg tablet 1 tab PO BEDTIME 11/26/20 11/26/20 mirtazapine 30 mg tablet 1 tab PO BEDTIME 11/26/20 11/26/20 ondansetron HCl 4 mg tablet 1 tab PO Q8H PRN nausea 11/26/20 11/26/20 polyvinyl alcohol 1.4 % eye drops 1 drp ophthalmic (eye) TID 11/26/20 11/26/20 (Artificial Tears (polyvinyl alcohol)) quetiapine 25 mg tablet 1 tab PO BID PRN anxiety 11/26/20 11/26/20 topiramate 25 mg tablet 1 tab PO BID 11/26/20 11/26/20 zolpidem 10 mg tablet 1 tab PO BEDTIME PRN insomnia 11/26/20 11/26/20 Previous Rx's ?Medication ?Instructions ?Recorded tramadol 50 mg tablet 50 mg PO Q8H PRN pain #3 tabs 11/26/20 nitrofurantoin 100 mg PO BID #14 caps 05/26/21 monohydrate/macrocrystals 100 mg capsule (Macrobid) phenazopyridine 100 mg tablet 100 mg PO TID PRN pain 6 doses #6 05/26/21 (Pyridium) tabs cefuroxime axetil 250 mg tablet 250 mg PO BID 7 days #14 tabs 07/15/21 morphine 15 mg immediate release 15 mg PO BID PRN pain #8 tabs 07/15/21 tablet docusate sodium 100 mg capsule 100 mg PO BID #20 caps 07/21/21 (Colace) sennosides 8.6 mg tablet (senna) 8.6 mg PO BEDTIME #14 tabs 07/21/21 docusate sodium 100 mg capsule 100 mg PO BID PRN Constipation #14 11/23/21 (Colace) caps nitrofurantoin 100 mg PO BID uti 7 days #14 caps 11/23/21 monohydrate/macrocrystals 100 mg capsule (Macrobid) ondansetron 4 mg disintegrating 4 mg PO Q6H nausea/vomiting #14 11/23/21 tablet tabs cephalexin 500 mg capsule 500 mg PO Q8H 7 days #21 caps 08/02/22 ondansetron 4 mg disintegrating 4 mg PO Q8H PRN nausea and 03/02/23 tablet vomiting #10 tabs phenazopyridine 200 mg tablet 200 mg PO TID PRN pain 6 doses #6 03/02/23 (Pyridium) tabs acetaminophen 325 mg capsule 650 mg (2 x 325 mg) PO Q6H PRN 04/01/24 (Tylenol) pain #30 caps cefdinir 300 mg capsule 300 mg PO BID 5 days #10 caps 04/01/24 cephalexin 500 mg capsule 500 mg PO BID #14 caps 07/15/24 ondansetron HCl 4 mg tablet 4 mg PO Q8H PRN nausea and 07/15/24 vomiting #10 tabs oxycodone 5 mg tablet 5 mg PO Q6H PRN pain, moderate #10 07/15/24 tabs tamsulosin 0.4 mg capsule (Flomax) 0.4 mg PO DAILY #6 caps 07/15/24 dicyclomine 10 mg capsule 10 mg PO BID #14 caps 08/14/24 ondansetron 4 mg disintegrating 4 mg PO Q8H PRN nausea and 08/14/24 tablet vomiting #10 tabs Allergies Allergy/AdvReac Type Severity Reaction Status Date / Time aspirin [ASA] Allergy Intermediate RASH, Verified 10/09/24 01:13 nausea and vomiting ibuprofen [IBUPROFEN] Allergy Intermediate RASH Verified 10/09/24 01:13 nicotine Allergy Intermediate RASH FROM Verified 10/09/24 01:13 NICOTINE PATCH, nausea and vomiting ketorolac [From TORADOL] Allergy Mild RAPID HR Verified 10/09/24 01:13 AND HIVES haloperidol [From Haldol] Allergy Anaphylaxis Verified 10/09/24 01:13 metoclopramide [From Reglan] Allergy Unknown Verified 10/09/24 01:13 Review of Systems Review of Systems: Yes all other systems are reviewed and are negative Constitutional: Constitutional: Denies fatigue and Denies fever(s) Cardiovascular: Cardiovascular: Denies chest pain and Denies dyspnea Respiratory: Respiratory: Denies cough and Denies dyspnea Gastrointestinal: Gastrointestinal: Denies abdominal pain, Reports nausea and Reports vomiting Genitourinary: Genitourinary: Reports hematuria, Reports dysuria and Reports flank pain Endocrine: Endocrine: Denies fatigue [facility] Past Medical History Attestation statement: The following information was validated with the patient. Medical History delivery delivered HTN (hypertension) Anemia Hypercholesteremia DVT (deep venous thrombosis) Kidney stones Surgical History Total knee replacement status Social History Social History Unable to assess alcohol history related to: Unknown Alcohol intake: never Patient Tobacco Use Status: Current everyday Tobacco user Physical Exam Vital Signs: Vital Signs: Last Vital Signs Temp 98.3 F 10/09/24 04:36 Pulse 70 10/09/24 04:36 Resp 18 10/09/24 04:36 BP 136/74 10/09/24 04:36 Pulse Ox 99 10/09/24 04:36 O2 Del Method Room Air 10/09/24 04:36 BMI result Body Mass Index 26.1 Const: Other: Alert, acting as if she is crying but yet there are no tears Orientation/consciousness: patient oriented x3 Resp: Effort & Inspection: normal respiratory effort Cardio: Other: Normal peripheral perfusion Skin: Other: Warm dry no rash Neuro: General: patient oriented x3, gait normal, no focal motor deficits and CN's II-XI intact bilaterally Medications Administered Discontinued Medications Generic Name Dose Route Start Last Admin Trade Name Freq PRN Reason Stop Dose Admin Sodium Chloride 1,000 mls @ 999 mls/hr 10/09/24 02:15 10/09/24 03:22 Ns IV 10/09/24 03:15 Infused .Q1H1M ADELA Infusion Morphine Sulfate 4 mg 10/09/24 02:09 10/09/24 02:23 Morphine Sulfate 4 Mg/Ml Cartridge IVPUSH 10/09/24 02:10 4 mg ONCE ONE Administration Protocol Morphine Sulfate 4 mg 10/09/24 03:42 10/09/24 03:52 Morphine Sulfate 4 Mg/Ml Cartridge IVPUSH 10/09/24 03:43 4 mg ONCE ONE Administration Protocol Ondansetron HCl 4 mg 10/09/24 02:09 10/09/24 02:23 Ondansetron Hcl 4 Mg/2 Ml Vial IVPUSH 10/09/24 02:10 4 mg ONCE ONE Administration Ondansetron HCl 4 mg 10/09/24 03:42 10/09/24 03:52 Ondansetron Hcl 4 Mg/2 Ml Vial IVPUSH 10/09/24 03:43 4 mg ONCE ONE Administration Medical Decision Making Medical Decision Making MDM Narrative: 58-year-old female with a history of kidney stones, recurrent urinary tract infections, hypertension, hyperlipidemia, constipation, who presents with bilateral flank pain. Patient states she was seen by her urologist today, she was diagnosed with renal colic. She states she was prescribed nausea and pain medication, but was not able to crab picker her meds. Problem: Known kidney stones History: Per patient I have considered the following differential diagnoses: Pyelonephritis, renal colic, UTI, medication seeking behavior Plan: Screening labs ordered including a urinalysis, there was no hematuria her urine saw infected her labs are unremarkable. The patient is well known to the emergency department, she often comes here with a presentation of ?renal colic?, and will have a negative assessment. It is very concerning that she is exhibiting medication seeking behaviors. I will objectively treat her pain and order a CT scan. Labs: No leukocytosis, not anemic, no electrolyte abnormality, renal function at baseline, urine not infected, no hematuria IMPRESSION: 1. No acute abnormality in the abdomen or pelvis. 2. Punctate bilateral nonobstructing renal stones. Lab Data 10/09/24 01:20 10/09/24 01:20 Labs: Lab Results 10/09/24 Range/Units 01:20 WBC 4.6 L (4.8-10.8) X10*3/uL RBC 4.16 L (4.20-5.50) X10*6/uL Hgb 11.4 L (12.0-16.0) g/dl Hct 34.1 L (37.0-47.0) % MCV 82.0 (80.0-98.0) fL MCH 27.4 (27.0-33.0) pg MCHC 33.4 (31.0-35.0) g/dl RDW 15.1 (11.0-16.0) % Plt Count 232 (160-400) X10*3/uL MPV 9.6 (9.4-12.3) fL Immature Gran % (Auto) 0.2 (0.0-0.4) % Neut % (Auto) 46.6 (45-73) % Lymph % (Auto) 42.0 H (20-40) % [place] % (Auto) 8.6 (2-11) % Eos % (Auto) 2.2 (0-4) % Baso % (Auto) 0.4 (0-2) % Lymph # (Auto) 2.0 (1.2-4.9) X10*3/uL [place] # (Auto) 0.4 (0.1-1.2) X10*3/uL Eos # (Auto) 0.1 (0.0-0.4) X10*3/uL Baso # (Auto) 0.0 (0.0-0.2) X10*3/uL Abs Immat Gran (auto) 0.01 (0.00-0.03) X10*3/uL Absolute Neuts (auto) 2.2 (2.0-8.3) x10*3/uL Absolute Nucleated RBC 0.000 (0.0-0.012) X10*3/uL Nucleated RBC % (auto) 0.0 (0.0-0.2) /100WBC Sodium 143 (135-145) mmol/L Potassium 3.2 L (3.3-5.1) mmol/L Chloride 111 H (96-108) mmol/L Carbon Dioxide 21 L (22-29) mmol/L Anion Gap 14 (12-20) BUN 20 H (9-16) mg/dL Creatinine 0.70 (0.5-1.4) mg/dL Estim Creat Clear Calc 73.4 Estimated GFR > 60 Random Glucose 158 H (60-115) mg/dL Calcium 9.0 (8.4-10.2) mg/dL Total Bilirubin 0.2 (0.0-1.0) mg/dL AST 29 (5-31) U/L ALT 25 (0-31) U/L Alkaline Phosphatase 106 (39-117) U/L Total Protein 6.7 (6.5-8.0) g/dL Albumin 4.0 (3.5-5.0) g/dL Lipase 120 H (8-78) U/L Urine Color Dark Yellow Urine Appearance Cloudy Urine pH 5.5 (5.0-9.0) Ur Specific [place] >= 1.030 H (1.005-1.025) Urine Protein Trace (Neg-Trace) mg/dL Urine Glucose (UA) Negative (Negative) mg/dL Urine Ketones Trace (Negative) mg/dL Urine Blood Negative (Negative) Urine Nitrite Negative (Negative) Ur Leukocyte Esterase Small (1+) H (Negative) Urine RBC 0-2 (0-2) /HPF Urine WBC 6-10 H (0-5) /HPF Ur Squamous Epith Cells 11-20 (0-2) /HPF Calcium Oxalate Crystal Present Urine Bacteria 4+ (None Seen) Hyaline Casts 3-5 (0-2) /LPF Discharge Plan Discharge Clinical Impression: Bilateral flank pain Patient Disposition: Home, Self-Care Additional Instructions: All of your labs were completely normal, including your urinalysis, you were not passing blood it was not infected. The CT scan of the abdomen and pelvis was completely normal as well you are not passing a kidney stone. Continue to follow up with your urologist as needed. Prescriptions: No Action quetiapine 25 mg tablet 1 tab PO BID PRN (Reason: anxiety) atorvastatin 10 mg tablet 1 tab PO DAILY polyvinyl alcohol [Artificial Tears (polyvin alc)] 1.4 % drops 1 drp ophthalmic (eye) TID ondansetron HCl 4 mg tablet 1 tab PO Q8H PRN (Reason: nausea) gabapentin 400 mg capsule 1 cap PO BEDTIME topiramate 25 mg tablet 1 tab PO BID clonidine HCl 0.2 mg tablet 1 tab PO BID PRN (Reason: panic attack) cyanocobalamin (vitamin B-12) 500 mcg tablet 1 tab PO DAILY ascorbic acid (vitamin C) 250 mg tablet 1 tab PO BID amlodipine 10 mg tablet 1 tab PO DAILY mirtazapine 30 mg tablet 1 tab PO BEDTIME mirtazapine 30 mg tablet 1 tab PO BEDTIME docusate sodium 100 mg capsule 1 - 2 cap PO BEDTIME PRN (Reason: constipation) gabapentin 100 mg capsule 1 cap PO TID PRN (Reason: anxiety) zolpidem 10 mg tablet 1 tab PO BEDTIME PRN (Reason: insomnia) albuterol sulfate [ProAir HFA] 90 mcg/actuation HFA aerosol inhaler 2 puff PO Q4-6H PRN (Reason: dyspnea) fluoxetine 20 mg capsule 3 cap PO QAM loratadine 10 mg tablet 1 tab PO DAILY loratadine 10 mg tablet 1 tab PO DAILY tramadol 50 mg tablet 50 mg PO Q8H PRN (Reason: pain) Qty: 3 0RF morphine 15 mg tablet 15 mg PO BID PRN (Reason: pain) Qty: 8 0RF cefuroxime axetil 250 mg tablet 250 mg PO BID 7 Days Qty: 14 0RF nitrofurantoin monohyd/m-cryst [Macrobid] 100 mg capsule 100 mg PO BID Qty: 14 0RF Rx Instructions: must administer with a meal/food phenazopyridine [Pyridium] 100 mg tablet 100 mg PO TID PRN (Reason: pain) Qty: 6 0RF sennosides [senna] 8.6 mg tablet 8.6 mg PO BEDTIME Qty: 14 0RF docusate sodium [Colace] 100 mg capsule 100 mg PO BID Qty: 20 0RF docusate sodium [Colace] 100 mg capsule 100 mg PO BID PRN (Reason: Constipation) Qty: 14 0RF ondansetron 4 mg tablet,disintegrating 4 mg PO Q6H Qty: 14 0RF nitrofurantoin monohyd/m-cryst [Macrobid] 100 mg capsule 100 mg PO BID 7 Days Qty: 14 0RF Rx Instructions: must administer with a meal/food cephalexin 500 mg capsule 500 mg PO Q8H 7 Days Qty: 21 0RF phenazopyridine [Pyridium] 200 mg tablet 200 mg PO TID PRN (Reason: pain) Qty: 6 0RF ondansetron 4 mg tablet,disintegrating 4 mg PO Q8H PRN (Reason: nausea and vomiting) Qty: 10 0RF cephalexin 500 mg capsule 500 mg PO BID Qty: 14 0RF ondansetron HCl 4 mg tablet 4 mg PO Q8H PRN (Reason: nausea and vomiting) Qty: 10 0RF tamsulosin [Flomax] 0.4 mg capsule 0.4 mg PO DAILY Qty: 6 0RF oxycodone 5 mg tablet 5 mg PO Q6H PRN (Reason: pain, moderate) Qty: 10 0RF Rx Instructions: Partial Fill upon patient request. ondansetron 4 mg tablet,disintegrating 4 mg PO Q8H PRN (Reason: nausea and vomiting) Qty: 10 0RF dicyclomine 10 mg capsule 10 mg PO BID Qty: 14 0RF cefdinir 300 mg capsule 300 mg PO BID 5 Days Qty: 10 0RF acetaminophen [Tylenol] 325 mg capsule 650 mg PO Q6H PRN (Reason: pain) Qty: 30 0RF Interventions: ED Discharge Assessment Last Done: 10/09/24 04:36 Discharge Date/Time: 10/09/24 04:37 Print Language: Tajik
[2024-10-09 04:36] VITALS: BP 136/74; PULSE 70; RESP 18; TEMP 36.8; O2SAT 99
== END 2024-10-09 04:37 | disposition home or self-care (01) ==
PROVIDERS: Emergency Provider Emergency Medicine
DX: N23 Unspecified renal colic (principal); R07.89 Other chest pain; N39.0 Urinary tract infection, site not specified; R11.0 Nausea; Z79.899 Other long term (current) drug therapy
CPT/HCPCS: 36415; 74176; 80053; 81001; 83690; 85025; 87086; 96361; 96374; 96375; 96376; 99284; J2270; J2405

== ENCOUNTER → 2024-10-09 02:06 | Outpatient (BNV) | payer MEDICAID, SELFPAY | PROVIDERS: Visit Provider Radiology Diagnostic Radiology | DX: N20.0 Calculus of kidney (principal); R10.9 Unspecified abdominal pain | CPT/HCPCS: 74176 ==

== ENCOUNTER 2024-10-17 10:06 | Emergency (ER) | payer MEDICAID, SELFPAY ==
--- NOTE | ~2024-10-17 | US_ITS ---
EXAMINATION: US KIDNEY BILATERAL HISTORY: right flank pain, hx kidney stones TECHNIQUE: Real-time grayscale ultrasound imaging of the kidneys was performed and images were reviewed. COMPARISON: Correlation is made with an unenhanced CT of the abdomen dated 10/09/2024. FINDINGS: Right kidney: The right kidney measures 10.6 x 4.2 x 5.0 cm. Renal parenchymal echotexture and thickness are normal. There is a 1.5 x 1.4 x 1.5 cm echogenic mass at the upper pole consistent with an angiomyolipoma as noted on CT. There is a 2 mm nonobstructing calculus in the interpolar region and a 3 mm nonobstructing calculus at the lower pole. There is minimal prominence of the renal pelvis without hydronephrosis. Left Kidney: The left kidney measures 10.3 x 5.2 x 5.0 cm. Renal parenchymal echotexture and thickness are normal. There are no masses. There is a 4 mm nonobstructing calculus in the interpolar region and a 3 mm nonobstructing calculus at the lower pole. There is no hydronephrosis. US/US renal BI IMPRESSION: 1. Bilateral nephrolithiasis as described. No hydronephrosis. 2. 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 Electronically signed by: Misha Curtis MD 10/17/2024 12:40 PM EDT
[2024-10-17 10:16] VITALS: BP 134/76; BP 146/65; PULSE 81; PULSE 92; RESP 16; TEMP 36.4; O2SAT 97; O2SAT 98; BMI 26.7
[2024-10-17 10:34] LABS: Basophils Percent Auto 0.5 % (0-2); Eosinophils Absolute Auto 0.1 X10*3/uL (0.0-0.4); Eosinophils Percent Auto 1.4 % (0-4); Hematocrit 36.7 % (37.0-47.0); Hemoglobin 11.8 g/dl (12.0-16.0); Imm Gran Abs Auto 0.01 X10*3/uL (0.00-0.03); Imm Gran Pct Auto 0.2 % (0.0-0.4); Lymphocytes Absolute Auto 1.4 X10*3/uL (1.2-4.9); Lymphocytes Percent Auto 31.3 % (20-40); MANUAL DIFF FLAG NO; Mean Corpuscular HGB Conc 32.2 g/dl (31.0-35.0); Mean Corpuscular Hemoglobin 27.2 pg (27.0-33.0); Mean Corpuscular Volume 84.6 fL (80.0-98.0); Mean Platelet Volume 9.5 fL (9.4-12.3); Monocytes Absolute Auto 0.3 X10*3/uL (0.1-1.2); Neutrophils Absolute Auto 2.6 x10*3/uL (2.0-8.3); Neutrophils Percent Auto 59.6 % (45-73); Platelet Count 229 X10*3/uL (160-400); Red Blood Count 4.34 X10*6/uL (4.20-5.50); Red Cell Distribution Width 14.7 % (11.0-16.0); White Blood Count 4.3 X10*3/uL (4.8-10.8)
--- NOTE | 2024-10-17 10:53 | ED_ITS ---
HPI - Abdominal Pain General Chief Complaint: Abdominal Pain Stated Complaint: R FLANK PAIN,N/V,H/O KIDNEY STONES PER EMS Time Seen by Provider: 10/17/24 10:36 Source: patient and EMS Mode of arrival: EMS Limitations: no limitations History of Present Illness ED Provider: Jacque Hassan PA-C HPI narrative: 58 yo female with history of kidney stones, history of UTIs who presents to the ER for evaluation of 1 week of bilateral, R>L flank pain along with pain w/ urination, blood in the urine and difficulty initiating urine stream for the last 1 week. She was recently seen at [facility] for the same, was told she has kidney stones with plans for outpatient intervention in 2 weeks. she reports today she had a fevers today and vomiting prompting visit today. she denies chest pain or SOB. no abdominal pain. MD elicited complaint: flank pain Pertinent past history: kidney stones Onset (ago): week(s) (1) Pain Consistency: constant Location: L flank and R flank Severity: severe Pain scale (0-10): 10 Quality: stabbing Radiation: none Exacerbating factors: vomiting and movement Relieving factors: nothing Context: history of similar episodes Associated symptoms: nausea, vomiting, fever and chills Related Data Home Medications ?Medication ?Instructions ?Recorded ?Confirmed albuterol sulfate 90 mcg/actuation 2 puff PO Q4-6H PRN dyspnea 11/26/20 11/26/20 aerosol inhaler (ProAir HFA) amlodipine 10 mg tablet 1 tab PO DAILY 11/26/20 11/26/20 ascorbic acid (vitamin C) 250 mg 1 tab PO BID 11/26/20 11/26/20 tablet atorvastatin 10 mg tablet 1 tab PO DAILY 11/26/20 11/26/20 clonidine HCl 0.2 mg tablet 1 tab PO BID PRN panic attack 11/26/20 11/26/20 cyanocobalamin (vitamin B-12) 500 1 tab PO DAILY 11/26/20 11/26/20 mcg tablet docusate sodium 100 mg capsule 1 - 2 cap PO BEDTIME PRN 11/26/20 11/26/20 constipation fluoxetine 20 mg capsule 3 cap PO QAM 11/26/20 11/26/20 gabapentin 100 mg capsule 1 cap PO TID PRN anxiety 11/26/20 11/26/20 gabapentin 400 mg capsule 1 cap PO BEDTIME 11/26/20 11/26/20 loratadine 10 mg tablet 1 tab PO DAILY 11/26/20 11/26/20 loratadine 10 mg tablet 1 tab PO DAILY 11/26/20 11/26/20 mirtazapine 30 mg tablet 1 tab PO BEDTIME 11/26/20 11/26/20 mirtazapine 30 mg tablet 1 tab PO BEDTIME 11/26/20 11/26/20 ondansetron HCl 4 mg tablet 1 tab PO Q8H PRN nausea 11/26/20 11/26/20 polyvinyl alcohol 1.4 % eye drops 1 drp ophthalmic (eye) TID 11/26/20 11/26/20 (Artificial Tears (polyvinyl alcohol)) quetiapine 25 mg tablet 1 tab PO BID PRN anxiety 11/26/20 11/26/20 topiramate 25 mg tablet 1 tab PO BID 11/26/20 11/26/20 zolpidem 10 mg tablet 1 tab PO BEDTIME PRN insomnia 11/26/20 11/26/20 Previous Rx's ?Medication ?Instructions ?Recorded tramadol 50 mg tablet 50 mg PO Q8H PRN pain #3 tabs 11/26/20 nitrofurantoin 100 mg PO BID #14 caps 05/26/21 monohydrate/macrocrystals 100 mg capsule (Macrobid) phenazopyridine 100 mg tablet 100 mg PO TID PRN pain 6 doses #6 05/26/21 (Pyridium) tabs cefuroxime axetil 250 mg tablet 250 mg PO BID 7 days #14 tabs 07/15/21 morphine 15 mg immediate release 15 mg PO BID PRN pain #8 tabs 07/15/21 tablet docusate sodium 100 mg capsule 100 mg PO BID #20 caps 07/21/21 (Colace) sennosides 8.6 mg tablet (senna) 8.6 mg PO BEDTIME #14 tabs 07/21/21 docusate sodium 100 mg capsule 100 mg PO BID PRN Constipation #14 11/23/21 (Colace) caps nitrofurantoin 100 mg PO BID uti 7 days #14 caps 11/23/21 monohydrate/macrocrystals 100 mg capsule (Macrobid) ondansetron 4 mg disintegrating 4 mg PO Q6H nausea/vomiting #14 11/23/21 tablet tabs cephalexin 500 mg capsule 500 mg PO Q8H 7 days #21 caps 08/02/22 ondansetron 4 mg disintegrating 4 mg PO Q8H PRN nausea and 03/02/23 tablet vomiting #10 tabs phenazopyridine 200 mg tablet 200 mg PO TID PRN pain 6 doses #6 03/02/23 (Pyridium) tabs acetaminophen 325 mg capsule 650 mg (2 x 325 mg) PO Q6H PRN 04/01/24 (Tylenol) pain #30 caps cefdinir 300 mg capsule 300 mg PO BID 5 days #10 caps 04/01/24 cephalexin 500 mg capsule 500 mg PO BID #14 caps 07/15/24 ondansetron HCl 4 mg tablet 4 mg PO Q8H PRN nausea and 07/15/24 vomiting #10 tabs oxycodone 5 mg tablet 5 mg PO Q6H PRN pain, moderate #10 07/15/24 tabs tamsulosin 0.4 mg capsule (Flomax) 0.4 mg PO DAILY #6 caps 07/15/24 dicyclomine 10 mg capsule 10 mg PO BID #14 caps 08/14/24 ondansetron 4 mg disintegrating 4 mg PO Q8H PRN nausea and 08/14/24 tablet vomiting #10 tabs cefuroxime axetil 250 mg tablet 250 mg PO BID 7 days #14 tabs 10/17/24 ondansetron 4 mg disintegrating 4 mg PO Q8H PRN nausea and 10/17/24 tablet vomiting #7 tabs oxycodone 5 mg tablet 5 mg PO Q8H PRN severe pain (scale 10/17/24 score 7-10) #9 tabs tamsulosin 0.4 mg capsule (Flomax) 0.4 mg PO BEDTIME #14 caps 10/17/24 Allergies Allergy/AdvReac Type Severity Reaction Status Date / Time aspirin [ASA] Allergy Intermediate RASH, Verified 10/17/24 10:16 nausea and vomiting ibuprofen [IBUPROFEN] Allergy Intermediate RASH Verified 10/17/24 10:16 nicotine Allergy Intermediate RASH FROM Verified 10/17/24 10:16 NICOTINE PATCH, nausea and vomiting ketorolac [From TORADOL] Allergy Mild RAPID HR Verified 10/17/24 10:16 AND HIVES haloperidol [From Haldol] Allergy Anaphylaxis Verified 10/17/24 10:16 metoclopramide [From Reglan] Allergy Unknown Verified 10/17/24 10:16 Review of Systems Review of Systems Yes all other systems are reviewed and are negative [facility] Past Medical History Medical History delivery delivered HTN (hypertension) Anemia Hypercholesteremia DVT (deep venous thrombosis) Kidney stones Surgical History Total knee replacement status Social History Social History Unable to assess alcohol history related to: Unknown Alcohol intake: never Patient Tobacco Use Status: Current everyday Tobacco user Advance Directives: No Advance Directives Information Provided: No Do you have a plan to hurt others: No Plan Physical Exam ED Vital Signs: Vital Signs - 24 hr 10/17/24 10:16 10/17/24 12:28 10/17/24 13:14 Temperature 97.6 F 98.6 F 98.6 F Pulse Rate 81 64 64 Respiratory Rate 16 18 18 Blood Pressure 134/76 111/64 111/64 Pulse Oximetry 98 99 99 Oxygen Delivery Method Room Air Room Air Room Air BMI result Body Mass Index 26.7 Appearance: Alert. Oriented X3. appears uncomfortable, laying on her left side, in pain Head: normocephalic, atraumatic. Eyes: Pupils equal, round and reactive to light. ENT: Pharynx normal. No tonsillar swelling or exudate. Neck: Normal inspection. Neck supple. CVS: Normal heart rate and rhythm. Pulses normal. Respiratory: No respiratory distress. Breath sounds normal. Abdomen: Soft and nontender. +BS x4. +CVA tenderness bilaterally Skin: Skin warm and dry. Normal skin color. Normal skin turgor. No rashes. Extremities: No lower extremity edema. No joint swelling. Neuro/psych: Oriented X 3. No motor deficit. No sensory deficit. CN II-XII intact. Normal speech and cognition. Medical Decision Making Medical Decision Making MDM Narrative: 58 yo female with history of recurrent kidney stones, history of recurrent UTIs presenting with urinary symptoms and flank pain for the last 1 week. afebrile with stable VS on arrival. asking for pain medication, reporting 10/10 pain. IV established and patient given IV morphine with minimal relief. Labs showing mild leukopenia, normal renal function. UA with blood and WBCs. chart reviewed - she had a recent CT scan of her abd/pelvis that showed punctate stones bilaterally without hydro. renal u/s today showing bilateral intrarenal stones without hydronephrosis upon re-evaluation patient was c/o ongoing pain so IV dilaudid given. this improved her pain. she was up ambulating and feeling much better. at this time she is stable for discharge home with pain control, abx, treatment for stones. she will call her urologist to see if she can get in sooner than the 2 weeks when her appointment is. Differential Diagnosis Differential Diagnoses: The differential diagnosis associated with the presentation includes obstructing kidney stone w/ hydronephrosis, UTI, interstitial cystitis, pyelonephritis, sepsis Admission/Observation Consideration of admission/observation: Escalation of care including admission/observation considered Lab Data MDM Lab Attestation statement: I reviewed the patient's lab results. stable anemia, normal renal function, as able 10/17/24 10:27 10/17/24 10:27 Labs: Lab Results 10/17/24 10/17/24 Range/Units 10:27 10:33 WBC 4.3 L (4.8-10.8) X10*3/uL RBC 4.34 (4.20-5.50) X10*6/uL Hgb 11.8 L (12.0-16.0) g/dl Hct 36.7 L (37.0-47.0) % MCV 84.6 (80.0-98.0) fL MCH 27.2 (27.0-33.0) pg MCHC 32.2 (31.0-35.0) g/dl RDW 14.7 (11.0-16.0) % Plt Count 229 (160-400) X10*3/uL MPV 9.5 (9.4-12.3) fL Immature Gran % (Auto) 0.2 (0.0-0.4) % Neut % (Auto) 59.6 (45-73) % Lymph % (Auto) 31.3 (20-40) % [place] % (Auto) 7.0 (2-11) % Eos % (Auto) 1.4 (0-4) % Baso % (Auto) 0.5 (0-2) % Lymph # (Auto) 1.4 (1.2-4.9) X10*3/uL [place] # (Auto) 0.3 (0.1-1.2) X10*3/uL Eos # (Auto) 0.1 (0.0-0.4) X10*3/uL Baso # (Auto) 0.0 (0.0-0.2) X10*3/uL Abs Immat Gran (auto) 0.01 (0.00-0.03) X10*3/uL Absolute Neuts (auto) 2.6 (2.0-8.3) x10*3/uL Absolute Nucleated RBC 0.000 (0.0-0.012) X10*3/uL Nucleated RBC % (auto) 0.0 (0.0-0.2) /100WBC Sodium 140 (135-145) mmol/L Potassium 3.8 (3.3-5.1) mmol/L Chloride 111 H (96-108) mmol/L Carbon Dioxide 22 (22-29) mmol/L Anion Gap 11 L (12-20) BUN 12 (9-16) mg/dL Creatinine 0.69 (0.5-1.4) mg/dL Estim Creat Clear Calc 75.2 Estimated GFR > 60 Random Glucose 160 H (60-115) mg/dL Calcium 8.8 (8.4-10.2) mg/dL Total Bilirubin 0.3 (0.0-1.0) mg/dL AST 22 (5-31) U/L ALT 16 (0-31) U/L Alkaline Phosphatase 103 (39-117) U/L Total Protein 7.0 (6.5-8.0) g/dL Albumin 4.3 (3.5-5.0) g/dL Urine Color Yellow Urine Appearance Cloudy Urine pH 6.0 (5.0-9.0) Ur Specific Ransom 1.020 (1.005-1.025) Urine Protein 100 (2+) H (Neg-Trace) mg/dL Urine Glucose (UA) Negative (Negative) mg/dL Urine Ketones Trace (Negative) mg/dL Urine Blood Large (3+) H (Negative) Urine Nitrite Negative (Negative) Ur Leukocyte Esterase Negative (Negative) Urine RBC >20 H (0-2) /HPF Urine WBC 6-10 H (0-5) /HPF Ur Squamous Epith Cells 0-2 (0-2) /HPF Urine Bacteria None Seen (None Seen) Hyaline Casts 3-5 (0-2) /LPF Influenza Type A (PCR) NEGATIVE (Negative) Influenza Type B (PCR) NEGATIVE (Negative) RSV RNA Qual (PCR) NEGATIVE (Negative) SARS-CoV-2 RNA (RT-PCR) NEGATIVE (Negative) Independent Interpretation I performed an independent interpretation of an: Ultrasound Interpretation: no visible hydroneprhosis Radiology Impression Discussion of test interpretation with radiology: I have reviewed the radiologist's reading. External Record Review External record reviewed: Outpatient record, Prior outpatient labs and Prior outpatient radiology Prescription Management I considered prescription management with: Pain Medication and Antibiotic Chronic Conditions Patient?s care impacted by: Other (kidney stones) Medications Administered Discontinued Medications Generic Name Dose Route Start Last Admin Trade Name Freq PRN Reason Stop Dose Admin Ceftriaxone Sodium 1 gm 10/17/24 10:59 10/17/24 12:37 Ceftriaxone Sodium 1 Gm Vial IVPUSH 10/17/24 11:00 1 gm ONCE ONE Administration Hydromorphone HCl 1 mg 10/17/24 12:27 10/17/24 12:37 Hydromorphone Hcl 1 Mg/Ml Syringe IVPUSH 10/17/24 12:28 1 mg ONCE ONE Administration Protocol Morphine Sulfate 4 mg 10/17/24 10:51 10/17/24 10:58 Morphine Sulfate 4 Mg/Ml Cartridge IVPUSH 10/17/24 10:52 4 mg ONCE ONE Administration Protocol Ondansetron HCl 4 mg 10/17/24 10:51 10/17/24 10:58 Ondansetron Hcl 4 Mg/2 Ml Vial IVPUSH 10/17/24 10:52 4 mg ONCE ONE Administration Critical Care Time Critical Care Time Critical Care Time: Yes Total Critical Care Time: 36 Attestation: I have personally provided critical care time exclusive of time spent on separately billable procedures. Time includes review of lab data, radiology results, bedside re-evaluation after IV narcotics and monitoring for potential decompensation. Intervention performed as documented. Discharge Plan Discharge Clinical Impression: Kidney stones, Recurrent UTI Patient Disposition: Home, Self-Care Instructions: Kidney Stones (ED), Urinary Tract Infection in Women (DC) Additional Instructions: Your kidney ultrasound today showed stones on both sided within the kidneys but no kidney swelling, obstruction, or need for intervention today Take the prescribed antibiotics as directed, complete the entire course and do not miss any doses Start the antibiotic tomorrow - you were given IV antibiotic today in the ER Take tylenol 975 mg every 6 hours Take the prescribed oxycodone as needed for severe pain only. do not drive after taking this medication take flomax nightly follow up with your Urologist as soon as possible Drink plenty of fluids If you develop new or worsening symptoms call 911 or come back to the ER for further evaluation. Prescriptions: New cefuroxime axetil 250 mg tablet 250 mg PO BID 7 Days Qty: 14 0RF ondansetron 4 mg tablet,disintegrating 4 mg PO Q8H PRN (Reason: nausea and vomiting) Qty: 7 0RF tamsulosin [Flomax] 0.4 mg capsule 0.4 mg PO BEDTIME Qty: 14 0RF oxycodone 5 mg tablet 5 mg PO Q8H PRN (Reason: severe pain (scale score 7-10)) Qty: 9 0RF Rx Instructions: Partial Fill upon patient request. No Action quetiapine 25 mg tablet 1 tab PO BID PRN (Reason: anxiety) atorvastatin 10 mg tablet 1 tab PO DAILY polyvinyl alcohol [Artificial Tears (polyvin alc)] 1.4 % drops 1 drp ophthalmic (eye) TID ondansetron HCl 4 mg tablet 1 tab PO Q8H PRN (Reason: nausea) gabapentin 400 mg capsule 1 cap PO BEDTIME topiramate 25 mg tablet 1 tab PO BID clonidine HCl 0.2 mg tablet 1 tab PO BID PRN (Reason: panic attack) cyanocobalamin (vitamin B-12) 500 mcg tablet 1 tab PO DAILY ascorbic acid (vitamin C) 250 mg tablet 1 tab PO BID amlodipine 10 mg tablet 1 tab PO DAILY mirtazapine 30 mg tablet 1 tab PO BEDTIME mirtazapine 30 mg tablet 1 tab PO BEDTIME docusate sodium 100 mg capsule 1 - 2 cap PO BEDTIME PRN (Reason: constipation) gabapentin 100 mg capsule 1 cap PO TID PRN (Reason: anxiety) zolpidem 10 mg tablet 1 tab PO BEDTIME PRN (Reason: insomnia) albuterol sulfate [ProAir HFA] 90 mcg/actuation HFA aerosol inhaler 2 puff PO Q4-6H PRN (Reason: dyspnea) fluoxetine 20 mg capsule 3 cap PO QAM loratadine 10 mg tablet 1 tab PO DAILY loratadine 10 mg tablet 1 tab PO DAILY tramadol 50 mg tablet 50 mg PO Q8H PRN (Reason: pain) Qty: 3 0RF morphine 15 mg tablet 15 mg PO BID PRN (Reason: pain) Qty: 8 0RF cefuroxime axetil 250 mg tablet 250 mg PO BID 7 Days Qty: 14 0RF nitrofurantoin monohyd/m-cryst [Macrobid] 100 mg capsule 100 mg PO BID Qty: 14 0RF Rx Instructions: must administer with a meal/food phenazopyridine [Pyridium] 100 mg tablet 100 mg PO TID PRN (Reason: pain) Qty: 6 0RF sennosides [senna] 8.6 mg tablet 8.6 mg PO BEDTIME Qty: 14 0RF docusate sodium [Colace] 100 mg capsule 100 mg PO BID Qty: 20 0RF docusate sodium [Colace] 100 mg capsule 100 mg PO BID PRN (Reason: Constipation) Qty: 14 0RF ondansetron 4 mg tablet,disintegrating 4 mg PO Q6H Qty: 14 0RF nitrofurantoin monohyd/m-cryst [Macrobid] 100 mg capsule 100 mg PO BID 7 Days Qty: 14 0RF Rx Instructions: must administer with a meal/food cephalexin 500 mg capsule 500 mg PO Q8H 7 Days Qty: 21 0RF phenazopyridine [Pyridium] 200 mg tablet 200 mg PO TID PRN (Reason: pain) Qty: 6 0RF ondansetron 4 mg tablet,disintegrating 4 mg PO Q8H PRN (Reason: nausea and vomiting) Qty: 10 0RF cephalexin 500 mg capsule 500 mg PO BID Qty: 14 0RF ondansetron HCl 4 mg tablet 4 mg PO Q8H PRN (Reason: nausea and vomiting) Qty: 10 0RF tamsulosin [Flomax] 0.4 mg capsule 0.4 mg PO DAILY Qty: 6 0RF oxycodone 5 mg tablet 5 mg PO Q6H PRN (Reason: pain, moderate) Qty: 10 0RF Rx Instructions: Partial Fill upon patient request. ondansetron 4 mg tablet,disintegrating 4 mg PO Q8H PRN (Reason: nausea and vomiting) Qty: 10 0RF dicyclomine 10 mg capsule 10 mg PO BID Qty: 14 0RF cefdinir 300 mg capsule 300 mg PO BID 5 Days Qty: 10 0RF acetaminophen [Tylenol] 325 mg capsule 650 mg PO Q6H PRN (Reason: pain) Qty: 30 0RF Interventions: ED Discharge Assessment Last Done: 10/17/24 13:14 Discharge Date/Time: 10/17/24 13:14 Print Language: Ugandan
[2024-10-17 10:55] LABS: Appearance Urine Cloudy; Color Urine Yellow; Glucose Urine UA Negative (Negative); Leukocyte Esterase Urine Negative (Negative); Nitrite Urine Negative (Negative); UMIC TRIGGER UACC YES; Urine Blood Large (3+) (Negative); Urine Ketones Trace mg/dL (Negative); Urine Protein 100 (2+) mg/dL (Neg-Trace)
[2024-10-17 10:56] LABS: Bacteria Urine None Seen (None Seen); RBC Urine >20 /HPF (0-2); Squamous Epithelial Cell Urine 0-2 /HPF (0-2); UACC Culture Trigger YES
[2024-10-17 10:58] LABS: Alanine Aminotransferase 16 U/L (0-31); Albumin Level 4.3 g/dL (3.5-5.0); Alkaline Phosphatase 103 U/L (39-117); Anion Gap 11 (12-20); Aspartate Amino Transferase 22 U/L (5-31); Bilirubin Total 0.3 mg/dL (0.0-1.0); Blood Urea Nitrogen 12 mg/dL (9-16); Calcium 8.8 mg/dL (8.4-10.2); Carbon Dioxide 22 mmol/L (22-29); Chloride 111 mmol/L (96-108); Creatinine Clr Calc Pharmacy 75.2; Estimated Glomerular Filt Rate > 60; Glucose Random 160 mg/dL (60-115); Potassium 3.8 mmol/L (3.3-5.1); Sodium 140 mmol/L (135-145)
[2024-10-17] MEDS: ondansetron HCL 4 MG/2 ML VIAL IVPUSH (10:58)
[2024-10-17] MEDS: Morphine Sulfate 4 MG/ML CARTRIDGE IVPUSH (10:58)
[2024-10-17 11:23] LABS: Influenza A PCR NEGATIVE (Negative); Influenza B PCR NEGATIVE (Negative); Resp Syncy Virus RNA Qual PCR NEGATIVE (Negative); SARS COV2 PCR INHOUSE NEGATIVE (Negative)
[2024-10-17 12:28] VITALS: BP 111/64; PULSE 64; RESP 18; TEMP 37; O2SAT 99
[2024-10-17] MEDS: HYDROmorphone HCl 1 MG/ML SYRINGE IVPUSH (12:37)
[2024-10-17] MEDS: cefTRIAXone sodium 1 GM VIAL IVPUSH (12:37)
--- OUTSIDE RECORDS SUMMARY | 2024-10-17 12:58 | XMS_ITS | Encounter Summary ---
Author Organization [email or web address] Address [address] [facility] [address] [place] [address] Care Team Providers Care Aircraft Engine Installer Name Role Phone Amber Quiroz MD Primary Care Provider [phone] Reason for Visit * Reason Onset Date Comments Appointment Request 11/22/2023 Encounter Details Date Type Department Care Team ([facility] st Contact Info) Description 11/22/2023 Telephone [facility] MEDICINE [address] [place], [place] [phone] Amber Quiroz MD [address] [place], [place] [phone] Appointment Request Social History Tobacco Use Types [...] due tosleep difficulty. Please contact pt at [phone]. documented in this encounter Plan of Treatment Upcoming Encounters Date Type Department Care Team (Late st Contact Info) Description 11/12/2024 1:30 PM EDT Office Visit [facility] MEDICINE [address] [place] [address] Amber Quiroz MD [address] [place] [address] documented as of this encounter Visit Diagnoses Not on filedocumented in this encounter Care Teams Aircraft Engine Installer Relationship Specialty Start Date End Date Amber Quiroz MD [address] [place] [address] PCP - General Family Medicine 07/03/18 documented as of this encounter
--- OUTSIDE RECORDS SUMMARY | 2024-10-17 12:58 | XMS_ITS | Encounter Summary ---
Author Organization [employer] Address [address] [facility] [address] [place] [address] Care Team Providers Care Pipe Installer Name Role Phone Amber Quiroz MD Primary Care Provider [phone] Encounter Details Date Type Department Care Team (Late st Contact Info) Description 09/04/2024 Orders Only [facility] MEDICINE [address] [place], [place] [phone] Amber Quiroz MD [address] [place], [place] [phone] Routine screening for STI (sexually transmitted infection) [...] t he electric, gas, oil or water [employer] threatened to shut off services in your [...] Description 11/12/2024 1:30 PM EDT Office Visit [facility] MEDICINE [address] [place] [phone] Amber Quiroz MD [address] [place] [phone] Scheduled Orders Name Type Priority Associated Diagnoses [...] disease documented in this encounter Care Teams Pipe Installer Relationship Specialty Start Date End Date Amber Quiroz MD [address] [place] [address], [place] [address] PCP - General Family Medicine 07/03/18 documented as of this encounter
--- OUTSIDE RECORDS SUMMARY | 2024-10-17 12:58 | XMS_ITS | Encounter Summary ---
Author Organization [employer] [facility] Address [address] [facility] [address] [place] [address] Care Team Providers Care Brick Tester Name Role Phone Amber Quiroz MD Primary Care Provider [phone] Encounter Details Date Type Department Care Team (Late st Contact Info) Description 11/16/2022 Abstract [facility] MEDICINE [address] [place] [address] [phone] Amber Quiroz MD [address] [place] [phone] Social History Tobacco Use Types Packs/Day Years [...] Description 11/12/2024 1:30 PM EDT Office Visit [facility] [address] [place] [address] [phone] Amber Quiroz MD [address] [place], [place] [phone] documented as of this encounter Visit Diagnoses Not on filedocumented in this encounter Care Teams Brick Tester Relationship Specialty Start Date End Date Amber Quiroz MD [address] [place] [address], [place] [address] PCP - General Family Medicine 07/03/18 documented as of this encounter
--- OUTSIDE RECORDS SUMMARY | 2024-10-17 12:58 | XMS_ITS | Encounter Summary ---
Author Organization [employer] Address [address] [facility] [address] [place] [address] Care Team Providers Care Mat Gauger Name Role Phone Amber Quiroz MD Primary Care Provider [phone] Encounter Details Date Type Department Care Team ([facility] st Contact Info) Description 11/24/2023 Telephone [facility] MEDICINE [address] [place], [place] [phone] Amber Quiroz MD [address] [place], [place] [phone] Social History Tobacco Use Types Packs/Day Years [...] Description 11/12/2024 1:30 PM EDT Office Visit [facility] MEDICINE [address] [place] [address] Amber Quiroz MD [address] [place] [address] documented as of this encounter Visit Diagnoses Not on filedocumented in this encounter Care Teams Mat Gauger Relationship Specialty Start Date End Date Amber Quiroz MD [address] [place] [address] PCP - General Family Medicine 07/03/18 documented as of this encounter
--- OUTSIDE RECORDS SUMMARY | 2024-10-17 12:58 | XMS_ITS | Encounter Summary ---
Author Organization [employer] Address [address] [facility] [address] [place] [address] Care Team Providers Care Making Line Worker Name Role Phone Amber Quiroz MD Primary Care Provider [phone] Reason for Visit * Reason Onset Date Comments Med Refill 01/10/2024 Encounter Details Date Type Department Care Team ([facility] st Contact Info) Description 01/10/2024 Telephone [facility] MEDICINE [address] [place], [place] [phone] Amber Quiroz MD [address] [place], [place] [phone] Med Refill Social History Tobacco Use Types [...] immediate release tablet To be sent to: [facility] - [place], [place] - [address] [place] [address] documented in this encounter Plan of Treatment Upcoming Encounters Date Type Department Care Team (Late st Contact Info) Description 11/12/2024 1:30 PM EDT Office Visit [facility] MEDICINE [address] [place] [address] Amber Quiroz MD [address] [place] [address] documented as of this encounter Visit Diagnoses Not on filedocumented in this encounter Care Teams Making Line Worker Relationship Specialty Start Date End Date Amber Quiroz MD [address] [place] [address] PCP - General Family Medicine 07/03/18 documented as of this encounter
--- OUTSIDE RECORDS SUMMARY | 2024-10-17 12:58 | XMS_ITS | Encounter Summary ---
Author Organization [employer] Address 75 [facility] 7t [place] [address] Care Team Providers Care Prison Guard Name Role Phone Amber Quiroz MD Primary Care Provider [phone] Encounter Details Date Type Department Care Team (Late st Contact Info) Description 07/28/2022 Orders Only [facility] [address] [place] [address] [phone] Anabell Martinez LPN Social History Tobacco Use [...] Description 11/12/2024 1:30 PM EDT Office Visit [facility] [address] [place] [address] 16751 Amber Quiroz MD [address] [place] [phone] documented as of this encounter Procedures Procedure [...] (08/02/2022 12:29 AM EST) Color Urine Yellow [facility] Appearance Urine Turbid [facility] PH 6.5 5.0 - 9.0 [facility] Glucose Urine UA Negative Negative mg/dL [facility] Urine Blood Trace(A) Negative [facility] Specific [place] - Urine 1.020 1.005 - 1.025 [facility] Urine Protein 30 (1+)(A) Neg-Trace mg/dL [facility] Urine Ketones Negative Negative mg/dL [facility] Nitrite Urine Negative Negative [facility] Leukocyte Esterase Urine Large (3+)(A) Negative [facility] RBC Urine 0-2 0 - 2 /HPF [facility] Urine WBC >50(A) 0 - 5 /HPF [facility] Urine Squamous Epithelial Cell 6-10 0 - 2 /HPF [facility] Urine Bacteria 1+ None Seen [facility] Hyaline Casts, Urine 3-5 0 - 2 /LPF [facility] 08/02/2022 12:2 9 AM EST 08/02/2022 12:31 AM EST Narrative [facility] - 08/02/2022 12:50 AM EST Urine, Clean Catch us [facility] External Provider LAB URI NE ORDERABLES Final Result [facility] [address] [place] [phone] * SARS-CoV-2 RNA, Influenza A/B, and RSV RNA, Ql NAAT (08/02/2022 12:17 AM EST) Influenza A PCR NEGATIVE Negative [facility] Influenza B PCR NEGATIVE Negative [facility] Resp Syncy Virus RNA Qual PCR NEGATIVE Negative [facility] SARS COV2 PCR NEGATIVE Negative [facility] SARS/Flu/RSV Note See Note [facility] Comment:All test results mus t [...] use by authorized laboratories.Testing performed on the [employer] GeneXpert utilizingreal-time RT-PCR.All SARS CoV2 and positive influenza A/B results arereported to [facility]. 08/02/2022 12:1 7 AM EST 08/02/2022 12:19 AM EST [facility] Exter nal Provider LAB MICROBIOLOGY - GENERAL ORDERABLES Final Result [facility] [address] [place] [address] [phone] * (ABNORMAL) Basic Metabolic Panel (08/02/2022 12:17 AM EST) Sodium 140 135 - 145 mmol/L [facility] Potassium 3.9 3.3 - 5.1 mmol/L [facility] Chloride 105 96 - 108 mmol/L [facility] Carbon Dioxide 24 22 - 29 mmol/L [facility] Anion Gap 15 12 - 20 [facility] Urea Nitrogen (BUN) 14 9 - 16 mg/dL [facility] Creatinine, Serum 0.75 0.5 - 1.4 mg/dL [facility] Creatinine Clr Calc Pharmacy 71.4 [facility] Comment:Provided height and weight: 162.56 cm,63.503 kg.eGFR (calculated from the MDRD study equation) and eCrCl(calculated from the Cockcroft-Gault equation) are based ondifferent parameters and may not yield comparable results.If eCrCl result is absurd, please check patient'sheight/weight. Estimated Glomerular Filt Rate >60 [facility] Comment:NOTE: For -Am erican individuals, multiply the result by 1.210.Chronic Kidney Disease: Estimated GFR < 60 mL/min/1.43h8Uuxasj Kidney Disease: Estimated GFR < 15 mL/min/1.73m2 Glucose 119(H) 60 - 115 mg/dL [facility] Calcium 9.0 8.4 - 10.2 mg/dL [facility] 08/02/2022 12:1 7 AM EST 08/02/2022 12:19 AM EST [facility] External Provider LAB BLO OD ORDERABLES Final Result [facility] [address] [place] [address] [phone] * (ABNORMAL) CBC auto differential (08/02/2022 12:17 AM EST) White Blood Count 6.4 4.8 - 10.8 X10*3/uL [facility] Red Blood Count 3.96(L) 4.20 - 5.50 X10*6/uL [facility] Hemoglobin 10.8(L) 12.0 - 16.0 g/dl [facility] Hematocrit 33.0(L) 37.0 - 47.0 % [facility] Mean Corpuscular Volume 83.3 80.0 - 98.0 fL [facility] Mean Corpuscular Hemoglobin 27.3 27.0 - 33.0 pg [facility] Mean Corpuscular HGB Conc 32.7 31.0 - 35.0 g/dl [facility] Red Cell Distribution Width 14.2 11.0 - 16.0 % [facility] Platelet Count 202 160 - 400 X10*3/uL [facility] Mean Platelet Volume 9.2(L) 9.4 - 12.3 fL [facility] Neutrophils Percent Auto 68.5 45 - 73 % [facility] Imm Gran Pct Auto 0.2 0.0 - 0.4 % [facility] Lymphocytes Percent Auto 21.9 20 - 40 % [facility] Monocytes Percent Auto 8.6 2 - 11 % [facility] Eosinophils Percent Auto 0.5 0 - 4 % [facility] Basophils Percent Auto 0.3 0 - 2 % [facility] NRBC Pct Auto 0.0 0.0 - 0.2 /100WBC [facility] Neutrophils Absolute Auto 4.4 2.0 - 8.3 x10*3/uL [facility] Imm Gran Abs Auto 0.01 0.00 - 0.03 X10*3/uL [facility] Lymphocytes Absolute Auto 1.4 1.2 - 4.9 X10*3/uL [facility] Monocytes Absolute Auto 0.6 0.1 - 1.2 X10*3/uL [facility] Eosinophils Absolute Auto 0.0 0.0 - 0.4 X10*3/uL [facility] Basophils Absolute Auto 0.0 0.0 - 0.2 X10*3/uL [facility] NRBC Abs Auto 0.000 0.0 - 0.012 X10*3/uL [facility] 08/02/2022 12:1 7 AM EST 08/02/2022 12:19 AM EST us [facility] External Provider LAB BLO OD ORDERABLES Final Result [facility] [address] [place] [phone] * Culture, Urine, Routine (08/02/2022 12:00 AM EST) 08/02/2022 08/02/2022 7:3 1 AM EST Comment:UACC Narrative [facility] - 08/03/2022 9:19 AM EST Urine Culture No growth. Specimen Source: Urine clean catch [facility] Exter nal Provider LAB MICROBIOLOGY - GENERAL ORDERABLES Final Result Performing Organization Address City/State/[facility] Co de Phone Number [facility] [address] [place] [phone] documented in this encounter Visit Diagnoses Not on filedocumented in this encounter Care Teams Prison Guard Relationship Specialty Start Date End Date Amber Quiroz MD [address] [place] [phone] PCP - General Family Medicine 07/03/18 documented as of this encounter
--- OUTSIDE RECORDS SUMMARY | 2024-10-17 12:58 | XMS_ITS | Encounter Summary ---
Author Organization [employer] Address [address] [facility] 7t [place] [address] Care Team Providers Care Train Planner Name Role Phone Amber Quiroz MD Primary Care Provider [phone] Reason for Visit * Reason Onset Date Comments Nurse Triage 10/15/2024 Encounter Details Date Type Department Care Team ([facility] st Contact Info) Description 10/15/2024 Telephone [facility] [address] [place], [place] [phone] Amber Quiroz MD 230 [place], [place] [phone] Nurse Triage Social History Tobacco Use Types [...] t he electric, gas, oil or water [employer] threatened to shut off services in your [...] Telephone Encounter - Stacey Mathew RN - 10/15/2024 11:32 AM EDT Date: 10/13/24 Hospital: [facility] Seen for: kidney stone Symptomatic Yes Called pt. She states that she was seen at [facility] on 10/13/24 for kidney stones and she still has not passed any. Pt was given a script for Oxycodone for 5 days and wants fu with a provider. Pt. Drinking lots of fluids to try to flush out kidney stone and wants fu this week. Appt given for10/16/24 at 215pm with Dilcia Villagran Protocol Used: Flank Pain (Adult) Protocol-Based Disposition: See in Office or Video Visit Today Video visit not offered Positive Triage Questions: * Moderate pain (e.g., interferes with normal activities or awakens from sleep) * History of kidney stones * All higher-acuity triage questions were negative Care Advice Discussed: * Use a Cold Pack for Pain * Use Heat After 48 Hours for Pain * Continue Activity * Pain Medicines * Telephone Encounter - Gemma Oliveira - 10/15/2024 11:00 AM EDT Patient calling to report ED visit on : Date: 10/13/24 Hospital: [facility] Seen for: kidney stone Symptomatic Yes *if yes message should go to Triage Patient advised will forward to team nurse for follow up Best contact number [phone] documented in this encounter Plan of Treatment Upcoming Encounters Date Type Department Care Team (Late st Contact Info) Description 11/12/2024 1:30 PM EDT Office Visit [facility] [address] [place] [address] Amber Quiroz MD [address] [place], [place] [phone] documented as of this encounter Visit Diagnoses Not on filedocumented in this encounter Care Teams Train Planner Relationship Specialty Start Date End Date Amber Quiroz MD [address] [place], [place] [phone] PCP - General Family Medicine 07/03/18 documented as of this encounter
--- OUTSIDE RECORDS SUMMARY | 2024-10-17 12:58 | XMS_ITS | Encounter Summary ---
Author Organization [employer] Address [address] [facility] [address] [place] [address] Care Team Providers Care Rn Cardiovascular Name Role Phone Amber Quiroz MD Primary Care Provider [phone] Encounter Details Date Type Department Care Team (Late st Contact Info) Description 12/12/2023 Orders Only [facility] [address] [place], [place] [phone] Amber Quiroz MD 230 [place], [place] [phone] Nephrolithiasis (Primary Dx) Social History Tobacco Use [...] EDT Office Visit [facility] [address] [place] [address] Amber Quiroz MD [address] [place] [address] documented as of this encounter Visit Diagnoses Diagnosis Nephrolithiasis- Primary Calculus of kidney documented in this encounter Care Teams Rn Cardiovascular Relationship Specialty Start Date End Date Amber Quiroz MD [address] [place] [phone] PCP - General Family Medicine 07/03/18 documented as of this encounter
--- OUTSIDE RECORDS SUMMARY | 2024-10-17 12:58 | XMS_ITS | Encounter Summary ---
Author Organization [employer] Address 75 [facility] 7 [place] [address] Care Team Providers Care Sustain Engineer Name Role Phone Amber Quiroz MD Primary Care Provider [phone] Reason for Visit * Reason Comments Med Refill Encounter Details Date Type Department Care Team ([facility] st Contact Info) Description 11/29/2023 Refill [facility] 230 [place], [place] [phone] Charleen Latif MD 230 [place], [place] [phone] Nephrolithiasis Social History Tobacco Use Types Packs/Day [...] t he electric, gas, oil or water [employer] threatened to shut off services in your [...] Visit [facility] [address] [place] [address] Amber Quiroz MD [address] [place] [phone] documented as of this encounter Visit Diagnoses Diagnosis Nephrolithiasis Calculus of kidney documented in this encounter Care Teams Sustain Engineer Relationship Specialty Start Date End Date Amber Quiroz MD [address] [place] [phone] PCP - General Family Medicine 07/03/18 documented as of this encounter
--- OUTSIDE RECORDS SUMMARY | 2024-10-17 12:58 | XMS_ITS | Encounter Summary ---
Author Organization [employer] [facility] Address 75 [facility] 7 [place] [address] Care Team Providers Care Director Of Collections Name Role Phone Amber Quiroz MD Primary Care Provider [phone] Reason for Visit * Reason Comments Med Refill Encounter Details Date Type Department Care Team (Late st Contact Info) Description 04/26/2023 Refill [facility] [address] [place] [address] [phone] Amber Quiroz MD [address] [place] [phone] Nausea Social History Tobacco Use Types Packs/Day [...] Description 11/12/2024 1:30 PM EDT Office Visit [facility] [address] [place] [address] [phone] Amber Quiroz MD [address] [place] [phone] documented as of this encounter Visit Diagnoses Diagnosis Nausea Nausea alone documented in this encounter Care Teams Director Of Collections Relationship Specialty Start Date End Date Amber Quiroz MD [address] [place] [phone] PCP - General Family Medicine 07/03/18 documented as of this encounter
--- OUTSIDE RECORDS SUMMARY | 2024-10-17 12:58 | XMS_ITS | Encounter Summary ---
Author Organization [facility] Address [address] [facility] 7t [place] [address] Care Team Providers Care Yard Operator Name Role Phone Amber Quiroz MD Primary Care Provider [phone] Reason for Visit * Reason Comments Med Refill Encounter Details Date Type Department Care Team (Late st Contact Info) Description 04/26/2023 Refill [facility] [address] [place] [phone] Alan Partida MD [address] [place] [phone] Moderate persistent asthma without complication; Nausea Social [...] 1:30 PM EDT Office Visit [facility] [address] [place] [phone] Amber Quiroz MD [address] [place] [address] documented as of this encounter Visit Diagnoses Diagnosis Moderate persistent asthma without complication Nausea Nausea alone documented in this encounter Care Teams Yard Operator Relationship Specialty Start Date End Date Amber Quiroz MD [address] [place] [address] PCP - General Family Medicine 07/03/18 documented as of this encounter
--- OUTSIDE RECORDS SUMMARY | 2024-10-17 12:58 | XMS_ITS | Encounter Summary ---
Author Organization [facility] Address [address] [place] [address] Care Team Providers Care Striker Off Name Role Phone Physician, No Pcp Primary Care Provider Unavaila ble Encounter Details Date Type Department Care Team (Late st Contact Info) Description 09/25/2024 Lab Requisition [facility] Main Lab [address] [facility] [place] [address] Zachery Chi PA [address] [place] [address] Calculus of ureter Social History [...] LAB CHEMISTRY METHOD 09/25/2024 7:10 PM EDT [facility] Blood Venous blood specimen / Unknown 09/25/2024 3:15 PM EDT 09/25/2024 6:18 PM EDT us Zachery Chi PA LAB BLOOD ORDERABLES Final Res ult [facility] [address] [place] [address], documented in this encounter Visit Diagnoses Diagnosis Calculus of ureter documented in this encounter Care Teams Striker Off Relationship Specialty Start Date End Date Physician, No Pcp PCP - General 08/21/24 documented as of this encounter
--- OUTSIDE RECORDS SUMMARY | 2024-10-17 12:58 | XMS_ITS | Encounter Summary ---
Author Organization [employer] Address 75 [facility] 7t [place] [address] Care Team Providers Care Clarification Operator Name Role Phone Amber Quiroz MD Primary Care Provider [phone] Reason for Visit * Reason Onset Date Comments Nurse Triage 01/11/2024 Encounter Details Date Type Department Care Team ([facility] st Contact Info) Description 01/11/2024 Telephone [facility] [address] [place], [place] [phone] Amber Quiroz MD 230 [place], [place] [phone] Nurse Triage Social History Tobacco Use Types [...] t he electric, gas, oil or water [employer] threatened to shut off services in your [...] HDF appt tomorrow at 1030am with García WEB MARKETING ANALYST. RX updated with pending HDF. Team tasked that if medication available from PCP for overnight use [facility] * Telephone Encounter - Lacy Sahni LPN - 01/11/2024 3:31 PM EDT Triage in process. Patient requesting pain medication for kidney stone pain in [facility] 01/07/24-01/08/24. Patient not seeing any stones [...] worse Override Notes: Seen and treated at [facility] known kidney stones wants something for [...] Description 11/12/2024 1:30 PM EDT Office Visit [facility] [address] [place] [phone] Amber Quiroz MD [address] [place] [address] [phone] documented as of this encounter Visit Diagnoses Not on filedocumented in this encounter Care Teams Clarification Operator Relationship Specialty Start Date End Date Amber Quiroz MD [address] [place] [address] [phone] PCP - General Family Medicine 07/03/18 documented as of this encounter
--- OUTSIDE RECORDS SUMMARY | 2024-10-17 12:58 | XMS_ITS | Encounter Summary ---
Author Organization [employer] Address 75 [facility] 7t [place] [address] Care Team Providers Care Plasterer Spot Name Role Phone Amber Quiroz MD Primary Care Provider [phone] Reason for Visit * Reason Onset Date Comments Sent to ED from Office 10/17/2024 Encounter Details Date Type Department Care Team ([facility] st Contact Info) Description 10/17/2024 Telephone [facility] 230 [place], [place] [phone] Cheryl Larkin, RN 230 [place], [place] [phone] Sent to ED from Office Social History Tobacco Use Types Packs/Day Years [...] t he electric, gas, oil or water [employer] threatened to shut off services in your [...] Telephone Encounter - Cheryl Larkin RN - 10/17/2024 9:52 AM EDT Pt walked into [facility] lobby. Has HDF booked for later this afternoon but is sobbing and statingthat she is in pain. This RN brought pt to a private exam room for triage. Pt was at [facility] 10/13-10/14 and at [facility] ED 10/16 for kidney stones. Pt reportedly has not passed any stones. Is in 10/10 right flank pain. Pain has worsened. Starting yesterday, pt is vomiting, unable to keep any food down, and has had a fever. No fever currently but reports temp was 100.0F this morning prior to her taking tylenol. Last vomited this morning. Also reporting blood in her urine. Is hunched over, clutching he abdomen. Appears to have difficulty walking d/t pain standing st raight. Vitals: Blood pressure: 146/65 RR: 20 Heart rate: 92 T: 97.3 F Pain: 10/10 right flank Given new Sx and severity of her pain, I recommended she return to the hospital. Discussed with Henry who she is scheduled to see later today who agrees with this assessment. Pt states that she had an Uber here, needs ambulance as she can barely walk she is in so much pain. Ambulance called. Gave report to EMT along with discharge paperwork and vitals. Pt wants to go to [facility], they agreed to bring her there. documented in this encounter Plan of Treatment Upcoming Encounters Date Type Department Care Team (Late Contact Info) Description 11/12/2024 1:30 PM EDT Office Visit [facility] [address] [place], [place] [phone] Amber Quiroz MD [address] [place] [address] documented as of this encounter Visit Diagnoses Not on filedocumented in this encounter Care Teams Plasterer Spot Relationship Specialty Start Date End Date Amber Quiroz MD [address] [place] [address] [phone] PCP - General Family Medicine 07/03/18 documented as of this encounter
--- OUTSIDE RECORDS SUMMARY | 2024-10-17 12:58 | XMS_ITS | Encounter Summary ---
Author Organization [employer] Address 75 [facility] 7t [place] [address] Care Team Providers Care Chief Technologist Name Role Phone Amber Quiroz MD Primary Care Provider [phone] Reason for Visit * Reason Comments Med Refill Encounter Details Date Type Department Care Team ([facility] st Contact Info) Description 06/01/2023 Refill [facility] 230 [place], [place] [phone] Amber Quiroz MD 230 [place], [place] [phone] Pain Social History Tobacco Use Types Packs/Day [...] the past 12 months, has t he [employer], oil or water company threatened to shut [...] Description 11/12/2024 1:30 PM EDT Office Visit [facility] [address] [place] [address] Amber Quiroz MD [address] [place] [address] documented as of this encounter Visit Diagnoses Diagnosis Pain Generalized pain documented in this encounter Care Teams Chief Technologist Relationship Specialty Start Date End Date Amber Quiroz MD [address] [place] [address] PCP - General Family Medicine 07/03/18 documented as of this encounter
--- OUTSIDE RECORDS SUMMARY | 2024-10-17 12:58 | XMS_ITS | Encounter Summary ---
Author Organization [employer] Address [address] [facility] 7t [place] [address] Care Team Providers Care Architecture Technician Name Role Phone Amber Quiroz MD Primary Care Provider [phone] Reason for Visit * Reason Onset Date Comments Chart Prep 10/16/2024 Encounter Details Date Type Department Care Team ([facility] st Contact Info) Description 10/16/2024 Telephone [facility] MED[facility]INE 230 [place], [place] [phone] Amber Quiroz MD 230 [place], [place] [phone] Chart Prep Social History Tobacco Use Types Packs/Day Years [...] t he electric, gas, oil or water [employer] threatened to shut off services in your [...] encounter Miscellaneous Notes * Telephone Encounter - Iraida Jo MA - 10/16/2024 3:14 PM EDT Chart Prep Labs: done ; labs sent 09/04/2024 not done. Images: not applicable Vaccines due: Covid Due and Shingles in pharmacy Due Referrals: Not Applicable Screenings: Colonoscopy , Mammogram, and Colposcopy Overdue care gaps: PQ9 and Disability documented in this encounter Plan of Treatment Upcoming Encounters Date Type Department Care Team (Late st Contact Info) Description 11/12/2024 1:30 PM EDT Office Visit [facility] [address] [place] [address] Amber Quiroz MD [address] [place] [phone] documented as of this encounter Visit Diagnoses Not on filedocumented in this encounter Care Teams Architecture Technician Relationship Specialty Start Date End Date Amber Quiroz MD [address] [place] [address] PCP - General Family Medicine 07/03/18 documented as of this encounter
--- OUTSIDE RECORDS SUMMARY | 2024-10-17 12:59 | XMS_ITS | Encounter Summary ---
Author Organization [employer] [facility] Address [address] [place] [address] Care Team Providers Care Shoe Stamper Name Role Phone Amber Quiroz MD Primary Care Provider [phone] Encounter Details Date Type Department Care Team (Late st Contact Info) Description 03/22/2023 Orders Only [facility] [address] [place] [address] [phone] Amber Quiroz MD [address] [place] [phone] ASCUS of cervix with negative high risk [...] Description 11/12/2024 1:30 PM EDT Office Visit [facility] [address] [place] [address] [phone] Amber Quiroz MD [address] [place] [address] [phone] documented as of this encounter Visit Diagnoses Diagnosis ASCUS of cervix with negative high risk HPV- Primary History of cervical dysplasia Personal history of cervical dysplasia documented in this encounter Care Teams Shoe Stamper Relationship Specialty Start Date End Date Amber Quiroz MD [address] [place] [phone] PCP - General Family Medicine 07/03/18 documented as of this encounter
--- OUTSIDE RECORDS SUMMARY | 2024-10-17 12:59 | XMS_ITS | Clinical Summary ---
Author Organization [facility] Address [address] [place] [address] Phone Care Team Providers Care Logistics Team Leader Name Role Phone Physician, No Pcp Primary Care Provider Unavaila ble Allergies Active Allergy Reactions Criticality Noted Date Comments Aspirin Congestion of the throat 08/21/2024 Ibuprofen Swallowing Problem 08/21/2024 Acetaminophen Swallowing Problem 08/21/2024 Medications No known medications Active Problems No known active problems Encounters Date Type Department Care Team Description 09/25/2024 Lab Requisition [facility] - Main Lab [address] [place] [address] Zachery Chi PA Calculus of ureter 08/21/2024 3:41 PM EST - 08/21/2024 7:[address] [facility] [address] [place] [address] Bilateral flank pain (Primary Dx); [...] hormone intact (09/25/2024 3:15 PM EDT) Pathologist [facility] PTH 31.1 18.5 - 88.0 pcg/mL LAB CHEMISTRY METHOD 09/25/2024 7:10 PM EDT [facility] Blood Venous blood specimen / Unknown 09/25/2024 3:15 PM EDT 09/25/2024 6:18 PM EDT Zachery LUO LAB BLOOD ORDERABLES Final Res ult [facility] [address] [place] [address], [place] [phone] * ECG-Annotated (08/22/2024) Provider Onbase MD ECG ORDERABLES Final Result * (ABNORMAL) Drug abuse screen 8a panel, urine (08/21/2024 6:02 PM EST) [facility] Amphetamine Screen, Ur Negative Negative LAB CHEMISTRY METHOD 5 6:35 PM EST [facility] Comment:Certain OTC medicati ons containing ephedrine, phenylephrine, pseudoephedrine and phenylpropanolamine can cause false positive results. Barbiturate Screen, Ur Negative Negative LAB CHEMISTRY METHOD 5 6:35 PM EST [facility] Benzodiazepine Screen, Ur Negative Negative LAB CHEMISTRY METHOD 5 6:35 PM EST [facility] Cocaine Screen, Ur Positive(A ) Negative LAB CHEMISTRY METHOD 5 6:35 PM EST [facility] Opiate Screen, Ur Negative Negative LAB CHEMISTRY METHOD 5 6:35 PM EST [facility] Cannabinoid (THC) Screen, Ur Positive(A ) Negative LAB CHEMISTRY METHOD 5 6:35 PM EST [facility] Comment:Specimens from patie nts taking pantoprazole sodium (Protonix) have been shown to produce false positive results. Oxycodone Screen, Ur Negative Negative LAB CHEMISTRY METHOD 5 6:35 PM EST [facility] Fentanyl, Ur Negative Negative LAB CHEMISTRY METHOD 5 6:35 PM EST [facility] Urine Urine specimen obtained by clean catch procedure / Unknown Non-blood Collection / Unknown 08/21/2024 6:02 PM EST 08/21/2024 6:09 PM EST Narrative [facility] - 08/21/2024 6:35 PM [...] Za LUO LAB URINE ORDERABLES Final Result [facility] [address] [place] [address], * (ABNORMAL) Urinalysis with reflex microscopic and culture (08/21/2024 6:00 PM EST) Specific [place] Urine 1.019 1.003 - 1.030 LAB URINALYSIS - AUTOMATED METHOD 08/21/2024 6:43 PM EST [facility] pH, Urine 6.5 5.0 - 8.0 pH LAB URINALYSIS - AUTOMATED METHOD 08/21/2024 6:43 PM [facility] Leukocytes, Urine Trace(A) Negative LAB URINALYSIS - AUTOMATED METHOD 08/21/2024 6:43 PM [facility] Nitrite, Urine Negative Negative LAB URINALYSIS - AUTOMATED METHOD 08/21/2024 6:43 PM [facility] Protein, Urine Negative <=Trace mg/dL LAB URINALYSIS - AUTOMATED METHOD 08/21/2024 6:43 PM [facility] Glucose, Urine Negative Negative mg/dL LAB URINALYSIS - AUTOMATED METHOD 08/21/2024 6:43 PM [facility] Ketones, Urine Negative Negative mg/dL LAB URINALYSIS - AUTOMATED METHOD 08/21/2024 6:43 PM [facility] Urobilinogen , Urine 1.0 0.2 - 1.0 mg/dL LAB URINALYSIS - AUTOMATED METHOD 08/21/2024 6:43 PM [facility] Bilirubin, Urine Negative Negative LAB URINALYSIS - AUTOMATED METHOD 08/21/2024 6:43 PM [facility] Blood, Urine Negative Negative LAB URINALYSIS - AUTOMATED METHOD 08/21/2024 6:43 PM [facility] RBC, Urine 3.9 0 - 4 /HPF LAB URINALYSIS - AUTOMATED METHOD 08/21/2024 6:43 PM [facility] WBC, Urine 4.4(H) 0 - 4 /HPF LAB URINALYSIS - AUTOMATED METHOD 08/21/2024 6:43 PM [facility] Squamous Epithelial, Urine >100(H) 0 - 60 /LPF LAB URINALYSIS - AUTOMATED METHOD 08/21/2024 6:43 PM [facility] Bacteria, Urine Moderate(A) Negative /HPF LAB URINALYSIS - AUTOMATED METHOD 08/21/2024 6:43 PM [facility] Hyaline Casts, Urine 2.4 0 - 3 /LPF LAB URINALYSIS - AUTOMATED METHOD 08/21/2024 6:43 PM EST [facility] Urine Urine specimen obtained by clean catch procedure / Unknown Non-blood Collection / Unknown 08/21/2024 6:00 PM EST 08/21/2024 6:09 PM EST Ramiro Miguelrussell Maier DO LAB URINE ORDERABLES Final Resu lt [facility] [address] [place] [address], [place] [phone] * Vaughn urine culture tube (08/21/2024 6:00 PM EST) Extra Tube Hold for add-ons. 08/21/2024 8:01 PM EST [facility] Comment:Auto resulted. Urine Urine specimen obtained by clean catch procedure / Unknown Non-blood Collection / Unknown 08/21/2024 6:00 PM EST 08/21/2024 6:09 PM EST Ramiro Ryan Livier [facility] LAB URINE ORDERABLES Final Resu lt Performing Organization Address [facility]/ZIP Co de Phone Number [facility] [address] [place] [address], [place] [phone] * Culture urine (08/21/2024 6:00 PM EST) Culture, Urine 10,000-49,000 CFU/mL Mixed urogenital geovanny, no uropathogens present. Suggest repeat specimen if clinically indicated. 08/22/2024 2:06 PM EST [facility] Urine Urine specimen obtained by clean catch procedure / Unknown Non-blood Collection / Unknown 08/21/2024 6:00 PM EST 08/21/2024 6:43 PM EST Ramiro Miguelrussell Maier DO LAB MICROBIOLOGY - GENERAL ORDE RABLES Final Result Performing Organization Address City/[facility] Co de Phone Number [facility] [address] [place] [address], * CT Head wo Contrast (08/21/2024 5:00 [...] GEMUSE QTc 443 ms GEMUSE P Wave Garland 58 degrees GEMUSE R Garland 11 degrees GEMUSE T Garland 43 degrees GEMUSE ECG Interpretation Normal sinus [...] K/mcL LAB HEMETOLOGY METHOD 08/21/2024 4:06 PM [facility] RBC 4.60 3.80 - 4.80 M/mcL LAB HEMETOLOGY METHOD 08/21/2024 4:06 PM [facility] Hemoglobin 12.2 11.5 - 16.0 g/dL LAB HEMETOLOGY METHOD 08/21/2024 4:06 PM [facility] Hematocrit 37.6 35.0 - 47.0 % LAB HEMETOLOGY METHOD 08/21/2024 4:06 PM [facility] MCV 82.6 79.0 - 98.0 FL LAB HEMETOLOGY METHOD 08/21/2024 4:06 PM [facility] MCH 26.8(L) 27.0 - 32.0 pcg LAB HEMETOLOGY METHOD 08/21/2024 4:06 PM [facility] MCHC 32.4 32.0 - 37.0 g/dL LAB HEMETOLOGY METHOD 08/21/2024 4:06 PM [facility] RDW 15.2(H) 11.0 - 15.0 % LAB HEMETOLOGY METHOD 08/21/2024 4:06 PM [facility] Platelets 235 130 - 400 K/mcL LAB HEMETOLOGY METHOD 08/21/2024 4:06 PM [facility] MPV 10.3 7.0 - 11.0 FL LAB HEMETOLOGY METHOD 08/21/2024 4:06 PM [facility] NRBC 0.0 <1.0 % LAB HEMETOLOGY METHOD 08/21/2024 4:06 PM [facility] NRBC Absolute 0.00 <0.10 K/mcL LAB HEMETOLOGY METHOD 08/21/2024 4:06 PM [facility] Neutrophils Relative 49.4 % LAB HEMETOLOGY METHOD 08/21/2024 4:06 PM [facility] Lymphocytes Relative 40.3 % LAB HEMETOLOGY METHOD 08/21/2024 4:06 PM [facility] Monocytes Relative 7.7 % LAB HEMETOLOGY METHOD 08/21/2024 4:06 PM [facility] Eosinophils Relative 2.2 % LAB HEMETOLOGY METHOD 08/21/2024 4:06 PM [facility] Basophils Relative 0.2 % LAB HEMETOLOGY METHOD 08/21/2024 4:06 PM [facility] Immature Granulocytes Relative 0.2 % LAB HEMETOLOGY METHOD 08/21/2024 4:06 PM [facility] Neutrophils Absolute 2.26 1.50 - 7.00 K/mcL LAB HEMETOLOGY METHOD 08/21/2024 4:06 PM [facility] Lymphocytes Absolute 1.84 1.00 - 5.00 K/mcL LAB HEMETOLOGY METHOD 08/21/2024 4:06 PM [facility] Monocytes Absolute 0.35 0.20 - 1.00 K/mcL LAB HEMETOLOGY METHOD 08/21/2024 4:06 PM [facility] Eosinophils Absolute 0.10 0.00 - 0.50 K/mcL LAB HEMETOLOGY METHOD 08/21/2024 4:06 PM EST [facility] Basophils Absolute 0.01 0.00 - 0.20 K/[facility] LAB HEMETOLOGY METHOD 08/21/2024 4:06 PM EST [facility] Immature Granulocytes Absolute 0.01 0.00 - 0.03 K/[facility] LAB HEMETOLOGY METHOD 08/21/2024 4:06 PM [facility] Blood Venous blood specimen / Unknown Venipuncture / Unknown 08/21/2024 3:50 PM EST 08/21/2024 3:56 PM EST Tonojameson mobicanvasrussell [facility] LAB BLOOD ORDERABLES Final Resu lt Performing Organization Address City/[facility]/ZIP Co de Phone Number [facility] [address] [place] [address], [place] [phone] * Lipase (08/21/2024 3:50 PM EST) Lipase 34 13 - 75 unit/L LAB CHEMISTRY METHOD 08/21/2024 4:26 PM [facility] Blood Venous blood specimen / Unknown Venipuncture / Unknown 08/21/2024 3:50 PM EST 08/21/2024 3:56 PM EST Tonojameson Davis Livier LAB BLOOD ORDERABLES Final Resu lt Performing Organization Address City/[facility]/ZIP Co de Phone Number [facility] [address] [place] [address], [place] [phone] * (ABNORMAL) Comprehensive metabolic panel (08/21/2024 3:50 PM EST) Sodium 144 133 - 145 mmol/L LAB CHEMISTRY METHOD 08/21/2024 4:26 PM [facility] Potassium 3.5 3.5 - 5.5 mmol/L LAB CHEMISTRY METHOD 08/21/2024 4:26 PM [facility] Chloride 113(H) 96 - 110 mmol/L LAB CHEMISTRY METHOD 08/21/2024 4:26 PM [facility] CO2 23 21 - 32 mmol/L LAB CHEMISTRY METHOD 08/21/2024 4:26 PM [facility] Anion Gap 8 3 - 11 LAB CHEMISTRY METHOD 08/21/2024 4:26 PM [facility] Glucose 108(H) 70 - 100 mg/dL LAB CHEMISTRY METHOD 08/21/2024 4:26 PM [facility] BUN 13 5 - 25 mg/dL LAB CHEMISTRY METHOD 08/21/2024 4:26 PM [facility] Creatinine 0.54 0.50 - 1.10 mg/dL LAB CHEMISTRY METHOD 08/21/2024 4:26 PM [facility] eGFR 106 >=60 mL/min/1. 73m2 LAB CHEMISTRY METHOD 08/21/2024 4:26 PM [facility] Comment:Calculation based on the??Chronic Kidney Disease Epidemiology Collaboration (CKD-EPI) equation refit??without adjustment for race. BUN/Creatinine Ratio 24.1 LAB CHEMISTRY METHOD 08/21/2024 4:26 PM [facility] Calcium 9.3 8.5 - 10.5 mg/dL LAB CHEMISTRY METHOD 08/21/2024 4:26 PM [facility] AST (SGOT) 27 10 - 42 unit/L LAB CHEMISTRY METHOD 08/21/2024 4:26 PM [facility] ALT (SGPT) 36 10 - 60 unit/L LAB CHEMISTRY METHOD 08/21/2024 4:26 PM [facility] Alkaline Phosphatase 109 42 - 121 unit/L LAB CHEMISTRY METHOD 08/21/2024 4:26 PM [facility] Total Protein 7.2 6.0 - 8.0 g/dL LAB CHEMISTRY METHOD 08/21/2024 4:26 PM [facility] Albumin 3.9 3.2 - 5.0 g/dL LAB CHEMISTRY METHOD 08/21/2024 4:26 PM EST [facility] Total Bilirubin 0.2 0.0 - 1.4 mg/dL LAB CHEMISTRY METHOD 08/21/2024 4:26 PM EST [facility] Blood Venous blood specimen / Unknown Venipuncture / Unknown 08/21/2024 3:50 PM EST 08/21/2024 3:56 PM EST us Ramiro Maier DO LAB BLOOD ORDERABLES Final Resu lt [facility] [address] [place] [address], [place] [phone] from Last 3 Months Insurance MEDICAID - [place] Care Teams Logistics Team Leader Relationship Specialty Start Date End Date Physician, No Pcp PCP - General 08/21/24
--- OUTSIDE RECORDS SUMMARY | 2024-10-17 12:59 | XMS_ITS | Encounter Summary ---
Author Organization [employer] Address [address] [place] [address] Care Team Providers Care Wool Grader Name Role Phone Amber Quiroz MD Primary Care Provider [phone] Encounter Details Date Type Department Care Team (Late st Contact Info) Description 04/05/2023 Orders Only [facility] [address] [place] [address] Anabell Martinez LPN Social History Tobacco Use [...] Description 11/12/2024 1:30 PM EDT Office Visit [facility] [address] [place] [address] Amber Quiroz MD [address] [place], [place] [phone] documented as of this encounter Visit Diagnoses Not on filedocumented in this encounter Care Teams Wool Grader Relationship Specialty Start Date End Date Amber Quiroz MD [address] [place], [place] [phone] PCP - General Family Medicine 07/03/18 documented as of this encounter
--- OUTSIDE RECORDS SUMMARY | 2024-10-17 12:59 | XMS_ITS | Clinical Summary ---
Author Organization [employer] Address [address] [facility] 7t [place] [address] Care Team Providers Care Buccaro Name Role Phone Amber Quiroz MD Primary Care Provider [phone] Allergies Active Allergy Reactions Criticality Noted Date [...] for severe pain. 15 tablet 025 Active albuterol (Ventolin HFA) [...] Encounters Date Type Department Care Team Description 10/17/2024 Telephone [facility] [address] [place] [phone] Cheryl Larkin, DOR[place] Sent to ED from Office 10/16/2024 Telephone [facility] [address] [place] [phone] Amber Quiroz MD Chart Prep 10/15/2024 Telephone [facility] [address] [place] [address] Amber Quiroz MD Nurse Triage 10/11/2024 Patient Outreach [facility] [address] [place] [address] Amber Quiroz MD Care Coordination (CM/CHW outreach) 10/11/2024 Patient Outreach [facility] [address] [place] [address] Amber Quiroz MD Care Coordination (CM/CHW outreach) 10/08/2024 Refill [facility] [address] [place] [address] Rachelle Lucero, DOROTA Nephrolithiasis 10/08/2024 Telephone [facility] [address] [place] [address] Amber Quiroz MD 10/07/2024 Refill [facility] [place] [address] Amber Quiroz MD Nausea 10/02/2024 Telephone [facility] [place] [address] 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, 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 Question 10/01/2024 11:30 AM EDT Telemedicine [facility] [place] [address] 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 RN Essential hypertension 10/01/2024 Travel 10/01/2024 Telephone [facility] [place] [address] Amber Quiroz MD 09/26/2024 Telephone [facility] [place] [address] Amber Quiroz MD Nurse Triage 09/25/2024 Refill [facility] [place] [address] Amber Quiroz MD Moderate persistent asthma without complication 09/25/2024 Telephone [facility] [place] [address] Amber Quiroz MD Care Management (C3- initial assessment/ enrollment #2. lvm) 09/24/2024 Patient Outreach [facility] [place] [address] Amber Quiroz MD Care Coordination (CM/CHW appt reminder) 09/20/2024 Refill [facility] [place] [address] Amber Quiroz MD Nephrolithiasis 09/13/2024 Population Health Risk Score Community [facility] (C3) Department [address] [place] [address] [phone] Provider, Population Health Generic 09/05/2024 Telephone [facility] [place] [address] 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 RN Results 09/04/2024 Orders Only [facility] [place] [address] Amber Quiroz MD Routine screening for STI (sexually transmitted infection) (Primary Dx) 09/04/2024 Patient Outreach [facility] [address] [place] [phone] Abmer Quiroz MD Care Coordination (CM/CHW outreach) 09/04/2024 Refill [facility] [address] [place] [address] Amber Quiroz MD 09/03/2024 3:00 PM EST Office Visit [facility] [address] [place] [address] Amber Quiroz MD Loin pain hematuria syndrome (Primary Dx); Essential hypertension; Kidney stones; Nephrolithiasis; Mood disorder (CMS/HCC); Dyslipidemia; Encounter for immunization; Dietary counseling; Exercise counseling; Overweight; Panic disorder without agoraphobia; Anxiety; Iron deficiency anemia, unspecified iron deficiency anemia type 09/03/2024 Telephone [facility] [address] [place] [phone] Amber Quiroz MD Appointment Request 09/03/2024 Travel 08/29/2024 Refill [facility] [address] [place] [address] Amber Quiroz MD 08/28/2024 Telephone [facility] [address] [place] [address] Shellie Eric MA chart prep 08/28/2024 Patient Outreach [facility] [address] [place] [phone] Amber Quiroz MD Care Coordination (CM/CHW outreach) 08/26/2024 Telephone [facility] [address] [place] [address] Amber Quiroz MD Nurse Triage 08/25/2024 Refill [facility] [address] [place] [address] Amber Quiroz MD Pain 08/21/2024 Telephone [facility] [address] [place] [address] Amber Quiroz MD Nurse Triage 08/15/2024 Patient Outreach [facility] [address] [place] [address] Amber Quiroz MD Care Coordination (CM/CHW outreach) 08/15/2024 Telephone [facility] [address] [place] [address] Marixa Eric RN Care Management (C3- chart review) 08/15/2024 Refill [facility] [address] [place] [address] Amber Quiroz MD Nausea 08/14/2024 Orders Only [...] 11/12/2024 1:30 PM EDT Office Visit [facility] [address] [place] [address] Amber Quiroz MD [address] [place] [address] Health Maintenance Due Date Last Done Comments [...] WO CONTRAST Routine 08/14/2024 10:31 AM EST THINPREP IMAGING PAP AND HPV MRNA E6/E7 WITH REFLEX TO HPV 16,18/45 Routine 07/30/2021 10:17 AM EST from Last 3 Months or Most Recently Relevant to Health Maintenance Results * Referral to Urology (09/25/2024) us Amber Quiroz MD OUTPATIENT REFERRAL ORDERABLES F inal Result * Pathologist Review - CBC (09/03/2024 4:26 PM EST) Pathologist Review - CBC SEE NOTE [facility] Comment:Normochromic normocy tic anemia; white blood cells are mildlydecreased in number, but otherwise normal appearing.- Ray Viera M.D. Pathology Blood Venous blood specimen / Unknown 09/03/2024 4:26 PM EST 09/03/2024 6:14 PM EST Amber Quiroz MD LAB BLOOD ORDERABLES Final Resul t Performing Organization Address [facility] Co de Phone Number [facility] [address] [place] [phone] * Vitamin B12/Folate, Serum Panel (09/03/2024 4:26 PM EST) Vitamin B12 247 200 - 900 pg/mL [facility] Comment:NORMAL 200-900 PG/ML INDETERMINATE 160-199 PG/ML DEFICIENT < 160 PG/ML Folate 9.9 > or = 4.0 ng/mL [facility] Comment:Reference Values:> o r = 4.0 ng/mL< 4.0 ng/mL suggests folate deficiency Methotrexate, aminopterin and folinic acid(leucovorin) are chemotherapeutic agents whose molecularstructures are similar to folate; therefore, the Architectfolate assay cannot be used for patients using these drugs. 09/03/2024 4:26 PM EST 09/03/2024 6:14 PM EST Amber Quiroz MD LAB BLOOD ORDERABLES Final Resul t Performing Organization Address [facility] Co de Phone Number [facility] [address] [place] [address] [phone] * TSH with Reflex to Free T4 (09/03/2024 4:26 PM EST) TSH reflex Free T4 1.08 0.32 - 4.0 uIU/mL [facility] Blood 09/03/2024 4:26 PM EST 09/03/2024 6:14 PM EST Amber Quiroz MD LAB BLOOD ORDERABLES Final Resul t [facility] [address] [place] [phone] * (ABNORMAL) Lipid Panel with Reflex to Direct LDL (09/03/2024 4:26 PM EST) Triglycerides 112 <150 mg/dL [facility] Comment:Desirable Triglyceri de: less than 150 mg/dLBorderline High Triglyceride 150-199 mg/dLHigh Triglyceride: 200-499 mg/dLVery High Triglyceride: greater than or equal to 5OO mg/dL Cholesterol 183 <200 mg/dL [facility] Comment:Desirable Cholestero l: less than 200 mg/dLBorderline High Cholesterol: 200-239 mg/dLHigh Cholesterol: greater than 239 mg/dL LDL Cholesterol Calculated 112(H) <100 mg/dL [facility] Comment:Desirable LDL: less than 100 mg/dLNear Optimal/Above Optimal LDL: 110- 129 mg/dLBorderline High LDL: 130-159 mg/dLHigh LDL: 160-189 mg/dLVery High LDL: greater than or equal to 190 mg/dL HDL Cholesterol 49 >40 mg/dL [facility] Comment:Desirable HDL: great er than 40 mg/dL Note: This HDL assay may give artificially low results in patients with liver disease. Blood 09/03/2024 4:2 6 PM EST 09/03/2024 6:14 PM EST Amber Quiroz MD LAB BLOOD ORDERABLES Final Resul t [facility] [address] [place], [place] [phone] * (ABNORMAL) CBC auto differential (09/03/2024 4:26 PM EST) White Blood Count 4.3(L) 4.8 - 10.8 X10*3/uL [facility] Red Blood Count 4.34 4.20 - 5.50 X10*6/uL [facility] Hemoglobin 11.4(L) 12.0 - 16.0 g/dl [facility] Hematocrit 35.9(L) 37.0 - 47.0 % [facility] Mean Corpuscular Volume 82.7 80.0 - 98.0 fL [facility] Mean Corpuscular Hemoglobin 26.3(L) 27.0 - 33.0 pg [facility] Mean Corpuscular HGB Conc 31.8 31.0 - 35.0 g/dl [facility] Red Cell Distribution Width 15.3 11.0 - 16.0 % [facility] Platelet Count 277 160 - 400 X10*3/uL [facility] Mean Platelet Volume 10.5 9.4 - 12.3 fL [facility] Neutrophils Percent Auto 46.0 45 - 73 % [facility] Imm Gran Pct Auto 0.2 0.0 - 0.4 % [facility] Lymphocytes Percent Auto 45.1(H) 20 - 40 % [facility] Monocytes Percent Auto 6.8 2 - 11 % [facility] Eosinophils Percent Auto 1.4 0 - 4 % [facility] Basophils Percent Auto 0.5 0 - 2 % [facility] NRBC Pct Auto 0.0 0.0 - 0.2 /100WBC [facility] Neutrophils Absolute Auto 2.0 2.0 - 8.3 x10*3/uL [facility] Imm Gran Abs Auto 0.01 0.00 - 0.03 X10*3/uL [facility] Lymphocytes Absolute Auto 1.9 1.2 - 4.9 X10*3/uL [facility] Monocytes Absolute Auto 0.3 0.1 - 1.2 X10*3/uL [facility] Eosinophils Absolute Auto 0.1 0.0 - 0.4 X10*3/uL [facility] Basophils Absolute Auto 0.0 0.0 - 0.2 X10*3/uL [facility] NRBC Abs Auto 0.000 0.0 - 0.012 X10*3/uL [facility] Blood Venous blood specimen / Unknown 09/03/2024 4:26 PM EST 09/03/2024 6:14 PM EST Amber Quiroz MD LAB BLOOD ORDERABLES Final Resul t Performing Organization Address [facility] Co de Phone Number [facility] [address] [place] [phone] * Iron And Total Iron Binding Capacity (09/03/2024 4:26 PM EST) Iron 69 30 - 160 mcg/dL [facility] Comment:Slight Hemolysis.Int erpret result with caution. Total Iron Binding Capacity 250 228 - 428 mcg/dL [facility] Percent Iron Saturation 28 15 - 50 % [facility] Unsaturated Iron Binding 181 ug/dL [facility] Blood Venous blood specimen / Unknown 09/03/2024 4:26 PM EST 09/03/2024 6:14 PM EST Amber Quiroz MD LAB BLOOD ORDERABLES Final Resul t Performing Organization Address [facility] Co de Phone Number [facility] [address] [place] [phone] * Hemoglobin A1c (09/03/2024 4:26 PM EST) Hemoglobin A1c 5.6 <6.0 % [facility] Comment:Hemoglobin A1C Refer ence Range Adults: 4.8 - 6.0 % Non diabetic: < 6.0 % Goal: < 7.0 %Additional Action Suggested: > 8.0 %Note: Hemoglobin A1c results are invalid for patients with abnormal amounts of HbF. Blood transfusions may impact the HbA1c concentration in the patient sample. Estimated Average Glucose 114 mg/dL [facility] Comment:eAG = Estimated ave rage glucose which is %A1C expressed asaverage glucose, using the formula of the [id number]-[id number] Glucose study (ADAG), Diabetes Care, Vol.31,#8,2007 Blood Venous blood specimen / Unknown 09/03/2024 4:26 PM EST 09/03/2024 6:14 PM EST Amber Quiroz MD LAB BLOOD ORDERABLES Final Resul t Performing Organization Address City/[facility]/ZIP Co de Phone Number [facility] [address] [place] [phone] * Ferritin (09/03/2024 4:26 PM EST) Ferritin 51 10 - 250 ng/mL [facility] Blood Venous blood specimen / Unknown 09/03/2024 4:26 PM EST 09/03/2024 6:14 PM EST Amber Quiroz MD LAB BLOOD ORDERABLES Final Resul t Performing Organization Address [facility] Co de Phone Number [facility] [address] [place] [address] [phone] * (ABNORMAL) Comprehensive Metabolic Panel (09/03/2024 4:26 PM EST) Sodium 143 135 - 145 mmol/L [facility] Potassium 3.9 3.3 - 5.1 mmol/L [facility] Comment:Slight Hemolysis.Int erpret result with caution. Chloride 111(H) 96 - 108 mmol/L [facility] Carbon Dioxide 23 22 - 29 mmol/L [facility] Anion Gap 13 12 - 20 [facility] Urea Nitrogen (BUN) 15 9 - 16 mg/dL [facility] Creatinine, Serum 0.66 0.5 - 1.4 mg/dL [facility] Estimated Glomerular Filt Rate >60 [facility] Comment:Chronic Kidney Disea se: Estimated GFR < 60 mL/min/1.37m7Uvkndr Kidney Disease: Estimated GFR < 15 mL/min/1.73m2 Glucose 91 60 - 115 mg/dL [facility] Calcium 8.6 8.4 - 10.2 mg/dL [facility] Bilirubin, Total 0.4 0.0 - 1.0 mg/dL [facility] Aspartate Amino Transferase 28 5 - 31 U/L [facility] Comment:Slight Hemolysis.Int erpret result with caution. Alanine Aminotransferase 11 0 - 31 U/L [facility] Total Protein 8.0 6.5 - 8.0 g/dL [facility] Albumin Level 4.4 3.5 - 5.0 g/dL [facility] Alkaline Phosphatase 87 39 - 117 U/L [facility] Blood Venous blood specimen / Unknown 09/03/2024 4:26 PM EST 09/03/2024 6:14 PM EST us Amber Quiroz MD LAB BLOOD ORDERABLES Final Resul t [facility] [address] [place] [address] [phone] * Urinalysis w/reflex microscopic (08/14/2024 11:57 AM EST) Color Urine Yellow [facility] Appearance Urine Clear [facility] PH 7.0 5.0 - 9.0 [facility] Glucose Urine UA Negative Negative mg/dL [facility] Urine Blood Negative Negative [facility] Specific [place] - Urine 1.015 1.005 - 1.025 [facility] Urine Protein Negative Neg-Trace mg/dL [facility] Urine Ketones Negative Negative mg/dL [facility] Nitrite Urine Negative Negative [facility] Leukocyte Esterase Urine Negative Negative [facility] 08/14/2024 11:5 7 AM EST 08/14/2024 12:00 PM EST Narrative [facility] - 08/14/2024 12:07 PM EST Urine, Clean Catch us Generic External Data Provider LAB URINE ORDERAB LES Final Result [facility] [address] [facility] [place] [address] [phone] * CT Abdomen Pelvis w/o Contrast (08/14/2024 10:31 AM EST) Anatomical Region Laterality Modality Body, Pelvis, Abdomen Computed T omography 08/14/2024 10:3 1 AM EST Narrative 08/14/2024 11:34 AM EST ? [facility] ?[address] ?[place] [address] ? CT Scan Report ? Signed ? Patient: Marquez,Zelidez ?MR#: [id number] ?? [id number] ? : 1965 ?Acct:[id number] ? Age/Sex: 58 / F ?ADM Date: 08/14/24 ? Loc: HO.ED ? Attending Dr: ? Ordering Physician: Radha Crowder NP ?? Date of Service: 08/14/24 ?? Procedure(s): CT abdomen pelvis wo IV con ?? Accession Number(s): [id number] ? cc: Amber Quiroz MD; Radha Crowder NP ? Report Number: ?? [id number]: Total DLP = ??365.00 mGy-cm ?? EXAMINATION: [...] by Misha Curtis MD in OV> ?08/14/24 113 ? DD/ 1031 ? TD/TT: 08/14/24 1104 ? [employer]: ? Procedure Note True, Nisha - 08/14/[address] [address] [address] Scan Report Signed Patient: Heidi Marquez#: [id number] : 1965Acct:[id number] Age/Sex: 58 / FADM Date: 08/14/24 Loc: HO.ED Attending Dr: Ordering Physician: Radha Crowder NP Date of Service: 08/14/24 Procedure(s): CT abdomen pelvis wo IV con Accession Number(s): [id number] cc: Amber Quiroz MD; Radha Crowder NP Report Number: [id number]: Total DLP = 365.00 mGy-cm EXAMINATION: CT [...] 08/14/24 1131 DD/ 1031 TD/TT: 08/14/24 1104 [employer]: [facility] External Provider IMG CT PROCEDURES Final Result * (ABNORMAL) THINPREP TIS PAP AND HPV mRNA E6/E7 WITH REFLEX TO HPV 16,18/45 (07/30/2021 10:17 AM EST) Clinical Information: [facility] COMMENT SEE COMMENT FOUNDAT[facility] [...] has been evaluated with computer assisted technology. [facility] Sound Effects Person: SEE COMMENT [facility] Comment: CHRISTIE CT(ASCP) CT screening location: [address] ??[id number] General Categorization: EPITHELIAL CELL ABNORMALITY(A ) [facility] HPV nRNA E6/E7 Not Detected Not Detected [facility] Comment: Methodology: Outreach Clinician-Mediated Amplification This assay detects E6/E7 viral messenger RNA (mRNA) from 14 high-risk HPV types (16,18,31,33,35,39,45,51,52,56,58,59,66,68). ? The analytical performance characteristics of this assay have been determined by [employer]. The modifications have not been cleared or approved by the FDA. This assay has been validated pursuant to the CLIA regulations and is used for clinical purposes. ?? For additional information, please refer to http://education.wst.cn/faq/WFP921g9 (This link if provided for information/ educational purposes only.) Infection Shift in vaginal geovanny suggestive of bacterial vaginosis. [facility] Interpretation/Res ult: SEE COMMENT(A) [facility] Comment: Atypical Squamous Cells of Undetermined Significance (ASC-US) Rare cells are approaching low grade dysplasia. LMP: NONE GIVEN [facility]OUND[facility] N LAB SYSTEM PATHOLOGIST: SEE COMMENT FOUND [facility] Comment: Jennifer Branch M.D., Board Certified in Anatomic and Clinical Pathology (electronic signature) Consulting Pathologist [facility] [phone] Prev. BX: NONE GIVEN [facility]OUND[facility] N LAB SYSTEM Prev. PAP: NONE GIVEN FOUNDATI ON LAB SYSTEM SOURCE: None given [facility] N [facility] SYSTEM Statement Of Adequacy: SEE COMMENT [facility] Comment: Satisfactory for evaluation. Endocervical/transformation zone component present. 07/30/2021 10:1 7 AM EST us Saleem Maier MD LAB PATHOLOGY ORDERABLES Final R esult [facility] [address] from Last 3 Months or Most Recently Relevant to Health Maintenance Insurance [facility] C3 Care Teams Buccaro Relationship Specialty Start Date End Date Amber Qiuroz MD [address] [place] [phone] PCP - General Family Medicine 07/03/18
--- OUTSIDE RECORDS SUMMARY | 2024-10-17 12:59 | XMS_ITS | Encounter Summary ---
Author Organization [employer] Address [address] [facility] 7t [place] [address] Care Team Providers Care Local Sales Associate Name Role Phone Amber Quiroz MD Primary Care Provider [phone] Reason for Visit * Reason Onset Date Comments Med Refill 06/21/2024 Encounter Details Date Type Department Care Team ([facility] st Contact Info) Description 06/21/2024 Telephone [facility] [address] [place], [place] [phone] Amber Quiroz MD [address] [place], [place] [phone] Med Refill Social History Tobacco Use Types [...] extra strength with no relief. Please advise. PIPELINE CONTROLLER checked 06/21/24. Last refill of Oxycodone 5mg 11/30/23 qty 12. * Telephone Encounter - Gemma Oliveira - 06/21/2024 10:12 AM EST TC from pt requesting medication refill. Medications needing refill : oxyCODONE (Oxy-IR) 5 MG immediate release capsule To be sent to: [facility] - [place], [place] - [address] [facility] documented in this encounter Plan of Treatment Upcoming Encounters Date Type Department Care Team (Late st Contact Info) Description 11/12/2024 1:30 PM EDT Office Visit [facility] [address] [place] [address] Amber Quiroz MD [address] [place] [address] documented as of this encounter Visit Diagnoses Not on filedocumented in this encounter Care Teams Local Sales Associate Relationship Specialty Start Date End Date Amber Quiroz MD [address] [place] [address] PCP - General Family Medicine 07/03/18 documented as of this encounter
--- OUTSIDE RECORDS SUMMARY | 2024-10-17 12:59 | XMS_ITS | Encounter Summary ---
Author Organization [employer] [facility] Address [address] [facility] 7t [place] [address] Care Team Providers Care Manager Database Administration Name Role Phone Amber Quiroz MD Primary Care Provider [phone] Encounter Details Date Type Department Care Team (Late st Contact Info) Description 12/12/2022 Orders Only [facility] [address] [place] [phone] Anabell Martinez LPN Social History Tobacco Use [...] Description 11/12/2024 1:30 PM EDT Office Visit [facility] [address] [place] [phone] Amber Quiroz MD [address] [place] [phone] documented as of this encounter Visit Diagnoses Not on filedocumented in this encounter Care Teams Manager Database Administration Relationship Specialty Start Date End Date Amber Quiroz MD [address] [place] [phone] PCP - General Family Medicine 1/1/19 documented as of this encounter
[2024-10-17 13:14] VITALS: BP 111/64; PULSE 64; RESP 18; TEMP 37; O2SAT 99
== END 2024-10-17 13:14 | disposition home or self-care (01) ==
PROVIDERS: Emergency Provider Emergency Medicine
DX: N20.0 Calculus of kidney (principal); R10.9 Unspecified abdominal pain; Z87.440 Personal history of urinary (tract) infections; Z03.818 Encounter for observation for suspected exposure to other biological agents ruled out
CPT/HCPCS: 0241U; 36415; 76775; 80053; 81001; 85025; 87086; 96374; 96375; 99284; J0696; J1171; J2270; J2405

== ENCOUNTER → 2024-10-17 10:36 | Outpatient (BNV) | payer MEDICAID, SELFPAY | PROVIDERS: Emergency Provider Emergency Medicine; Visit Provider Radiology Diagnostic Radiology | DX: N20.0 Calculus of kidney (principal); D17.71 Benign lipomatous neoplasm of kidney | CPT/HCPCS: 76775 ==

== ENCOUNTER 2024-10-19 03:00 | Emergency (ER) | payer MEDICAID, SELFPAY ==
[2024-10-19 03:07] VITALS: BP 110/70; PULSE 78; O2SAT 98
[2024-10-19 03:09] VITALS: BP 128/47; PULSE 84; RESP 18; TEMP 36.9; O2SAT 98; BMI 25.3
[2024-10-19 03:19] VITALS: BP 128/47; PULSE 80; RESP 17; TEMP 36.9; O2SAT 97
--- NOTE | 2024-10-19 03:28 | ED_ITS ---
HPI - General Adult General Chief complaint: Abdominal Pain Stated complaint: Right side Flank Pain N/V weakness Time Seen by Provider: 10/19/24 03:11 Source: patient, RN notes reviewed and old records reviewed Mode of arrival: EMS Limitations: no limitations History of Present Illness ED Provider: Aubrey HPI narrative: 58-year-old female past medical history significant for hypertension, anemia, kidney stones and recurrent UTIs presents for evaluation of abdominal pain. Patient reports abdominal pain that led upper abdomen that radiates around to her epigastric and left upper abdomen. She states this feels different than her previous kidney stone pain She reports her pain is 10/10. Denies any nausea vomiting, diarrhea. The patient was seen here 2 days ago for flank pain She had labs, urinalysis and an ultrasound of the kidneys bilaterally She was ultimately discharged home with cefuroxime for UTI, Zofran, Flomax and oxycodone, 5 mg tablets with 9 tablets being prescribed She reports that she was also recently seen at [facility] The patient also states that she sees her urologist in 2 weeks' time Related Data Home Medications ?Medication ?Instructions ?Recorded ?Confirmed albuterol sulfate 90 mcg/actuation 2 puff PO Q4-6H PRN dyspnea 11/26/20 11/26/20 aerosol inhaler (ProAir HFA) amlodipine 10 mg tablet 1 tab PO DAILY 11/26/20 11/26/20 ascorbic acid (vitamin C) 250 mg 1 tab PO BID 11/26/20 11/26/20 tablet atorvastatin 10 mg tablet 1 tab PO DAILY 11/26/20 11/26/20 clonidine HCl 0.2 mg tablet 1 tab PO BID PRN panic attack 11/26/20 11/26/20 cyanocobalamin (vitamin B-12) 500 1 tab PO DAILY 11/26/20 11/26/20 mcg tablet docusate sodium 100 mg capsule 1 - 2 cap PO BEDTIME PRN 11/26/20 11/26/20 constipation fluoxetine 20 mg capsule 3 cap PO QAM 11/26/20 11/26/20 gabapentin 100 mg capsule 1 cap PO TID PRN anxiety 11/26/20 11/26/20 gabapentin 400 mg capsule 1 cap PO BEDTIME 11/26/20 11/26/20 loratadine 10 mg tablet 1 tab PO DAILY 11/26/20 11/26/20 loratadine 10 mg tablet 1 tab PO DAILY 11/26/20 11/26/20 mirtazapine 30 mg tablet 1 tab PO BEDTIME 11/26/20 11/26/20 mirtazapine 30 mg tablet 1 tab PO BEDTIME 11/26/20 11/26/20 ondansetron HCl 4 mg tablet 1 tab PO Q8H PRN nausea 11/26/20 11/26/20 polyvinyl alcohol 1.4 % eye drops 1 drp ophthalmic (eye) TID 11/26/20 11/26/20 (Artificial Tears (polyvinyl alcohol)) quetiapine 25 mg tablet 1 tab PO BID PRN anxiety 11/26/20 11/26/20 topiramate 25 mg tablet 1 tab PO BID 11/26/20 11/26/20 zolpidem 10 mg tablet 1 tab PO BEDTIME PRN insomnia 11/26/20 11/26/20 Previous Rx's ?Medication ?Instructions ?Recorded tramadol 50 mg tablet 50 mg PO Q8H PRN pain #3 tabs 11/26/20 nitrofurantoin 100 mg PO BID #14 caps 05/26/21 monohydrate/macrocrystals 100 mg capsule (Macrobid) phenazopyridine 100 mg tablet 100 mg PO TID PRN pain 6 doses #6 05/26/21 (Pyridium) tabs cefuroxime axetil 250 mg tablet 250 mg PO BID 7 days #14 tabs 07/15/21 morphine 15 mg immediate release 15 mg PO BID PRN pain #8 tabs 07/15/21 tablet docusate sodium 100 mg capsule 100 mg PO BID #20 caps 07/21/21 (Colace) sennosides 8.6 mg tablet (senna) 8.6 mg PO BEDTIME #14 tabs 07/21/21 docusate sodium 100 mg capsule 100 mg PO BID PRN Constipation #14 11/23/21 (Colace) caps nitrofurantoin 100 mg PO BID uti 7 days #14 caps 11/23/21 monohydrate/macrocrystals 100 mg capsule (Macrobid) ondansetron 4 mg disintegrating 4 mg PO Q6H nausea/vomiting #14 11/23/21 tablet tabs cephalexin 500 mg capsule 500 mg PO Q8H 7 days #21 caps 08/02/22 ondansetron 4 mg disintegrating 4 mg PO Q8H PRN nausea and 03/02/23 tablet vomiting #10 tabs phenazopyridine 200 mg tablet 200 mg PO TID PRN pain 6 doses #6 03/02/23 (Pyridium) tabs acetaminophen 325 mg capsule 650 mg (2 x 325 mg) PO Q6H PRN 04/01/24 (Tylenol) pain #30 caps cefdinir 300 mg capsule 300 mg PO BID 5 days #10 caps 04/01/24 cephalexin 500 mg capsule 500 mg PO BID #14 caps 07/15/24 ondansetron HCl 4 mg tablet 4 mg PO Q8H PRN nausea and 07/15/24 vomiting #10 tabs oxycodone 5 mg tablet 5 mg PO Q6H PRN pain, moderate #10 07/15/24 tabs tamsulosin 0.4 mg capsule (Flomax) 0.4 mg PO DAILY #6 caps 07/15/24 dicyclomine 10 mg capsule 10 mg PO BID #14 caps 08/14/24 ondansetron 4 mg disintegrating 4 mg PO Q8H PRN nausea and 08/14/24 tablet vomiting #10 tabs cefuroxime axetil 250 mg tablet 250 mg PO BID 7 days #14 tabs 10/17/24 ondansetron 4 mg disintegrating 4 mg PO Q8H PRN nausea and 10/17/24 tablet vomiting #7 tabs oxycodone 5 mg tablet 5 mg PO Q8H PRN severe pain (scale 10/17/24 score 7-10) #9 tabs tamsulosin 0.4 mg capsule (Flomax) 0.4 mg PO BEDTIME #14 caps 10/17/24 Allergies Allergy/AdvReac Type Severity Reaction Status Date / Time aspirin [ASA] Allergy Intermediate RASH, Verified 10/19/24 03:17 nausea and vomiting ibuprofen [IBUPROFEN] Allergy Intermediate RASH Verified 10/19/24 03:17 nicotine Allergy Intermediate RASH FROM Verified 10/19/24 03:17 NICOTINE PATCH, nausea and vomiting ketorolac [From TORADOL] Allergy Mild RAPID HR Verified 10/19/24 03:17 AND HIVES haloperidol [From Haldol] Allergy Anaphylaxis Verified 10/19/24 03:17 metoclopramide [From Reglan] Allergy Unknown Verified 10/19/24 03:17 Review of Systems 2 Constitutional: Constitutional: Denies body ache(s), Denies chills and Denies fever(s) ENT: Denies vertigo and Denies dizziness Cardiovascular: Cardiovascular: Denies chest pain and Denies dyspnea Respiratory: Respiratory: Denies cough and Denies dyspnea Gastrointestinal: Gastrointestinal: Reports abdominal pain, Denies hematochezia, Reports nausea and Denies vomiting Genitourinary: Genitourinary: Reports hematuria, Denies dysuria and Denies pelvic pain Musculoskeletal: Musculoskeletal: Denies back pain Integumentary/Breasts: Skin/Breast: Denies rash Neurologic: Denies vertigo and Denies dizziness Psychiatric: Psychiatric: Denies anxiety [facility] Past Medical History Medical History delivery delivered HTN (hypertension) Anemia Hypercholesteremia DVT (deep venous thrombosis) Kidney stones Surgical History Total knee replacement status Social History Social History Unable to assess alcohol history related to: Unknown Alcohol intake: never Patient Tobacco Use Status: Current everyday Tobacco user Smoked in Last 30 Days: No Use of substances other than those prescribed or required for medical reasons: Yes Substance Use Type: Prescription Drugs Patient : No Physical Exam ED Vital Signs: Vital Signs - 24 hr 10/19/24 03:09 10/19/24 03:19 Temperature 98.4 F 98.4 F Pulse Rate 84 80 Respiratory Rate 18 17 Blood Pressure 128/47 L 128/47 L Pulse Oximetry 98 97 Oxygen Delivery Method Room Air Room Air BMI result Body Mass Index 25.3 Const General: healthy appearing, comfortable, no acute distress, alert and awake Nutritional Appearance: well nourished Orientation/consciousness: patient oriented x3 HENMT Head: Yes normocephalic and Yes atraumatic Eyes Eyelids: Yes eyelids normal Conjunctivae: conjunctivae normal Sclerae: sclerae normal Corneas: corneas normal Pupils: Equal, round and reactive pupils present EOM: EOMs intact bilaterally Neck Neck: Yes full ROM Resp Effort & Inspection: normal respiratory effort, able to speak in complete sentences and not labored GI Inspection: No distended Palpation (GI): Soft to palpation, not firm, nontender, no guarding and not rigid Skin General skin exam: elasticity normal Neuro General: patient oriented x3 Cranial nerves: Yes Equal, round and reactive pupils present and Yes Bilaterally intact EOM present Cognition (Neuro): normal cognition Extrem Other: Moving all extremities well without any obvious deformities Medical Decision Making Medical Decision Making [facility] Narrative: 58-year-old female with a past medical history as above presents for evaluation of abdominal pain. She has a history of chronic abdominal pain. She has had [address] scans at this facility since December of 2020. She also goes to other local hospitals and reports having had CT scans at [facility] recently. The patient's exam is quite reassuring, vital signs are stable. She was afebrile, her blood pressure is 128/47, she was not tachycardic, tachypneic or hypoxic. I checked the patient's controlled substance prescription monitoring program which shows 107 prescriptions for the last 2 years for controlled substances. She has had a different prescribed visit 5 different pharmacies in the last 12 months. She was requesting a CT scan of the abdomen pelvis, I discussed the risks of ionizing radiation from numerous CAT scans. If she has drastically different labs are urinalysis findings compared to 2 days ago we could consider advanced imaging. But her vital signs are stable, exam is reassuring and I do not see any indication for emergent imaging at this time. The patient's right upper abdominal pain that radiates across the epigastrium and left upper quadrant also not consistent with her history of obstructive uropathy. Differential Diagnosis Differential Diagnoses: The differential diagnosis associated with the presentation includes Chronic abdominal pain Drug-seeking behavior Constipation Pancreatitis Cholecystitis Obstructive uropathy Pyelonephritis Lab Data [facility] Lab Attestation statement: I reviewed the patient's lab results. The patient has a mild leukopenia of 3 point 8 which is consistent with a baseline. No significant anemia. Normal platelet count. No electrolyte abnormalities. Renal function within normal limits. Urinalysis did not show any evidence of infection but does show hematuria which is chronic for the patient and again she has outpatient follow-up already scheduled. 10/19/24 03:31 10/19/24 03:31 Labs: Lab Results 10/19/24 Range/Units 03:31 WBC 3.8 L (4.8-10.8) X10*3/uL RBC 4.48 (4.20-5.50) X10*6/uL Hgb 12.2 (12.0-16.0) g/dl Hct 37.2 (37.0-47.0) % MCV 83.0 (80.0-98.0) fL MCH 27.2 (27.0-33.0) pg MCHC 32.8 (31.0-35.0) g/dl RDW 14.6 (11.0-16.0) % Plt Count 250 (160-400) X10*3/uL MPV 9.5 (9.4-12.3) fL Immature Gran % (Auto) 0.3 (0.0-0.4) % Neut % (Auto) 42.4 L (45-73) % Lymph % (Auto) 46.4 H (20-40) % [place] % (Auto) 7.7 (2-11) % Eos % (Auto) 2.7 (0-4) % Baso % (Auto) 0.5 (0-2) % Lymph # (Auto) 1.7 (1.2-4.9) X10*3/uL [place] # (Auto) 0.3 (0.1-1.2) X10*3/uL Eos # (Auto) 0.1 (0.0-0.4) X10*3/uL Baso # (Auto) 0.0 (0.0-0.2) X10*3/uL Abs Immat Gran (auto) 0.01 (0.00-0.03) X10*3/uL Absolute Neuts (auto) 1.6 L (2.0-8.3) x10*3/uL Absolute Nucleated RBC 0.000 (0.0-0.012) X10*3/uL Nucleated RBC % (auto) 0.0 (0.0-0.2) /100WBC Sodium 143 (135-145) mmol/L Potassium 3.6 (3.3-5.1) mmol/L Chloride 114 H (96-108) mmol/L Carbon Dioxide 22 (22-29) mmol/L Anion Gap 11 L (12-20) BUN 9 (9-16) mg/dL Creatinine 0.68 (0.5-1.4) mg/dL Estim Creat Clear Calc 74.5 Estimated GFR > 60 Random Glucose 105 (60-115) mg/dL Calcium 9.1 (8.4-10.2) mg/dL Total Bilirubin 0.6 (0.0-1.0) mg/dL AST 50 H (5-31) U/L ALT 35 H (0-31) U/L Alkaline Phosphatase 104 (39-117) U/L Total Protein 7.4 (6.5-8.0) g/dL Albumin 4.5 (3.5-5.0) g/dL Lipase 72 (8-78) U/L Urine Color Red A Urine Appearance Cloudy Urine pH 6.5 (5.0-9.0) Ur Specific [place] 1.015 (1.005-1.025) Urine Protein 30 (1+) H (Neg-Trace) mg/dL Urine Glucose (UA) Negative (Negative) mg/dL Urine Ketones Negative (Negative) mg/dL Urine Blood Large (3+) H (Negative) Urine Nitrite Negative (Negative) Ur Leukocyte Esterase Small (1+) H (Negative) Urine RBC >20 H (0-2) /HPF Urine WBC 0-5 (0-5) /HPF Ur Squamous Epith Cells 0-2 (0-2) /HPF Urine Bacteria None Seen (None Seen) Hyaline Casts 0-2 (0-2) /LPF Discharge Plan Discharge Clinical Impression: Abdominal pain Patient Disposition: Home, Self-Care Instructions: Abdominal Pain (ED) Additional Instructions: Your workup in the ER today was reassuring. Your pain is not consistent with pain related to kidney stones. You may follow up with GI as you may need an upper endoscopy. Take all of your medication as prescribed Follow-up with urology as planned for your hematuria Prescriptions: No Action quetiapine 25 mg tablet 1 tab PO BID PRN (Reason: anxiety) atorvastatin 10 mg tablet 1 tab PO DAILY polyvinyl alcohol [Artificial Tears (polyvin alc)] 1.4 % drops 1 drp ophthalmic (eye) TID ondansetron HCl 4 mg tablet 1 tab PO Q8H PRN (Reason: nausea) gabapentin 400 mg capsule 1 cap PO BEDTIME topiramate 25 mg tablet 1 tab PO BID clonidine HCl 0.2 mg tablet 1 tab PO BID PRN (Reason: panic attack) cyanocobalamin (vitamin B-12) 500 mcg tablet 1 tab PO DAILY ascorbic acid (vitamin C) 250 mg tablet 1 tab PO BID amlodipine 10 mg tablet 1 tab PO DAILY mirtazapine 30 mg tablet 1 tab PO BEDTIME mirtazapine 30 mg tablet 1 tab PO BEDTIME docusate sodium 100 mg capsule 1 - 2 cap PO BEDTIME PRN (Reason: constipation) gabapentin 100 mg capsule 1 cap PO TID PRN (Reason: anxiety) zolpidem 10 mg tablet 1 tab PO BEDTIME PRN (Reason: insomnia) albuterol sulfate [ProAir HFA] 90 mcg/actuation HFA aerosol inhaler 2 puff PO Q4-6H PRN (Reason: dyspnea) fluoxetine 20 mg capsule 3 cap PO QAM loratadine 10 mg tablet 1 tab PO DAILY loratadine 10 mg tablet 1 tab PO DAILY tramadol 50 mg tablet 50 mg PO Q8H PRN (Reason: pain) Qty: 3 0RF morphine 15 mg tablet 15 mg PO BID PRN (Reason: pain) Qty: 8 0RF cefuroxime axetil 250 mg tablet 250 mg PO BID 7 Days Qty: 14 0RF nitrofurantoin monohyd/m-cryst [Macrobid] 100 mg capsule 100 mg PO BID Qty: 14 0RF Rx Instructions: must administer with a meal/food phenazopyridine [Pyridium] 100 mg tablet 100 mg PO TID PRN (Reason: pain) Qty: 6 0RF sennosides [senna] 8.6 mg tablet 8.6 mg PO BEDTIME Qty: 14 0RF docusate sodium [Colace] 100 mg capsule 100 mg PO BID Qty: 20 0RF docusate sodium [Colace] 100 mg capsule 100 mg PO BID PRN (Reason: Constipation) Qty: 14 0RF ondansetron 4 mg tablet,disintegrating 4 mg PO Q6H Qty: 14 0RF nitrofurantoin monohyd/m-cryst [Macrobid] 100 mg capsule 100 mg PO BID 7 Days Qty: 14 0RF Rx Instructions: must administer with a meal/food cephalexin 500 mg capsule 500 mg PO Q8H 7 Days Qty: 21 0RF phenazopyridine [Pyridium] 200 mg tablet 200 mg PO TID PRN (Reason: pain) Qty: 6 0RF ondansetron 4 mg tablet,disintegrating 4 mg PO Q8H PRN (Reason: nausea and vomiting) Qty: 10 0RF cephalexin 500 mg capsule 500 mg PO BID Qty: 14 0RF ondansetron HCl 4 mg tablet 4 mg PO Q8H PRN (Reason: nausea and vomiting) Qty: 10 0RF tamsulosin [Flomax] 0.4 mg capsule 0.4 mg PO DAILY Qty: 6 0RF oxycodone 5 mg tablet 5 mg PO Q6H PRN (Reason: pain, moderate) Qty: 10 0RF Rx Instructions: Partial Fill upon patient request. ondansetron 4 mg tablet,disintegrating 4 mg PO Q8H PRN (Reason: nausea and vomiting) Qty: 10 0RF dicyclomine 10 mg capsule 10 mg PO BID Qty: 14 0RF cefuroxime axetil 250 mg tablet 250 mg PO BID 7 Days Qty: 14 0RF ondansetron 4 mg tablet,disintegrating 4 mg PO Q8H PRN (Reason: nausea and vomiting) Qty: 7 0RF tamsulosin [Flomax] 0.4 mg capsule 0.4 mg PO BEDTIME Qty: 14 0RF oxycodone 5 mg tablet 5 mg PO Q8H PRN (Reason: severe pain (scale score 7-10)) Qty: 9 0RF Rx Instructions: Partial Fill upon patient request. cefdinir 300 mg capsule 300 mg PO BID 5 Days Qty: 10 0RF acetaminophen [Tylenol] 325 mg capsule 650 mg PO Q6H PRN (Reason: pain) Qty: 30 0RF Referrals: Scotty Orr MD [Physician] - (chronic abdominal pain) Print Language: E[place]re[place]
[2024-10-19 03:39] LABS: Basophils Percent Auto 0.5 % (0-2); Eosinophils Absolute Auto 0.1 X10*3/uL (0.0-0.4); Eosinophils Percent Auto 2.7 % (0-4); Hematocrit 37.2 % (37.0-47.0); Hemoglobin 12.2 g/dl (12.0-16.0); Imm Gran Abs Auto 0.01 X10*3/uL (0.00-0.03); Imm Gran Pct Auto 0.3 % (0.0-0.4); Lymphocytes Absolute Auto 1.7 X10*3/uL (1.2-4.9); Lymphocytes Percent Auto 46.4 % (20-40); MANUAL DIFF FLAG NO; Mean Corpuscular HGB Conc 32.8 g/dl (31.0-35.0); Mean Corpuscular Hemoglobin 27.2 pg (27.0-33.0); Mean Platelet Volume 9.5 fL (9.4-12.3); Monocytes Absolute Auto 0.3 X10*3/uL (0.1-1.2); Monocytes Percent Auto 7.7 % (2-11); Neutrophils Absolute Auto 1.6 x10*3/uL (2.0-8.3); Neutrophils Percent Auto 42.4 % (45-73); Platelet Count 250 X10*3/uL (160-400); Red Blood Count 4.48 X10*6/uL (4.20-5.50); Red Cell Distribution Width 14.6 % (11.0-16.0); White Blood Count 3.8 X10*3/uL (4.8-10.8)
[2024-10-19 03:41] LABS: Appearance Urine Cloudy; Color Urine Red; Glucose Urine UA Negative (Negative); Leukocyte Esterase Urine Small (1+) (Negative); Nitrite Urine Negative (Negative); PH 6.5 (5.0-9.0); Specific Gravity - Urine 1.015 (1.005-1.025); UMIC TRIGGER UACC YES; Urine Blood Large (3+) (Negative); Urine Ketones Negative (Negative); Urine Protein 30 (1+) mg/dL (Neg-Trace)
[2024-10-19 03:48] LABS: Bacteria Urine None Seen (None Seen); Hyaline Casts Urine 0-2 /LPF (0-2); RBC Urine >20 /HPF (0-2); Squamous Epithelial Cell Urine 0-2 /HPF (0-2); UACC Culture Trigger YES; WBC Urine 0-5 /HPF (0-5)
[2024-10-19 04:07] LABS: Alanine Aminotransferase 35 U/L (0-31); Albumin Level 4.5 g/dL (3.5-5.0); Alkaline Phosphatase 104 U/L (39-117); Anion Gap 11 (12-20); Aspartate Amino Transferase 50 U/L (5-31); Bilirubin Total 0.6 mg/dL (0.0-1.0); Blood Urea Nitrogen 9 mg/dL (9-16); Calcium 9.1 mg/dL (8.4-10.2); Carbon Dioxide 22 mmol/L (22-29); Chloride 114 mmol/L (96-108); Creatinine Clr Calc Pharmacy 74.5; Estimated Glomerular Filt Rate > 60; Glucose Random 105 mg/dL (60-115); Lipase 72 U/L (8-78); Potassium 3.6 mmol/L (3.3-5.1); Sodium 143 mmol/L (135-145); Total Protein 7.4 g/dL (6.5-8.0)
[2024-10-19] MEDS: oxyCODONE HCl Immed Release 5 MG TABLET PO (04:29)
--- OUTSIDE RECORDS SUMMARY | 2024-10-19 04:43 | XMS_ITS | Encounter Summary ---
Author Organization [employer] Address [address] [facility] [address] [place] [address] Care Team Providers Care Juvenile Detention Officer Name Role Phone Amber Quiroz MD Primary Care Provider [phone] Encounter Details Date Type Department Care Team (Late st Contact Info) Description 07/28/[address] [facility] [address] [place] [phone] Anabell Martinez LPN Social History Tobacco Use [...] Description 11/12/2024 1:30 PM EDT Office Visit [facility] [address] [place] [phone] Amber Quiroz MD [address] [place] [phone] documented as of this encounter Procedures Procedure [...] (08/02/2022 12:29 AM EST) Color Urine Yellow [facility] Appearance Urine Turbid [facility] PH 6.5 5.0 - 9.0 [facility] Glucose Urine UA Negative Negative mg/dL [facility] Urine Blood Trace(A) Negative [facility] Specific [place] - Urine 1.020 1.005 - 1.025 [facility] Urine Protein 30 (1+)(A) Neg-Trace mg/dL [facility] Urine Ketones Negative Negative mg/dL [facility] Nitrite Urine Negative Negative [facility] Leukocyte Esterase Urine Large (3+)(A) Negative [facility] RBC Urine 0-2 0 - 2 /HPF [facility] Urine WBC >50(A) 0 - 5 /HPF [facility] Urine Squamous Epithelial Cell 6-10 0 - 2 /HPF [facility] Urine Bacteria 1+ None Seen [facility] Hyaline Casts, Urine 3-5 0 - 2 /LPF [facility] 08/02/2022 12:2 9 AM EST 08/02/2022 12:31 AM EST Narrative [facility] - 08/02/2022 12:50 AM EST Urine, Clean Catch us [facility] External Provider LAB URI NE ORDERABLES Final Result [facility] [address] [place] [phone] * SARS-CoV-2 RNA, Influenza A/B, and RSV RNA, Ql NAAT (08/02/2022 12:17 AM EST) Influenza A PCR NEGATIVE Negative [facility] Influenza B PCR NEGATIVE Negative [facility] Resp Syncy Virus RNA Qual PCR NEGATIVE Negative [facility] SARS COV2 PCR NEGATIVE Negative [facility] SARS/Flu/RSV Note See Note [facility] Comment:All test results mus t [...] use by authorized laboratories.Testing performed on the [employer] GeneXpert utilizingreal-time RT-PCR.All SARS CoV2 and positive influenza A/B results arereported to [facility]. 08/02/2022 12:1 7 AM EST 08/02/2022 12:19 AM EST [facility] Exter nal Provider LAB MICROBIOLOGY - GENERAL ORDERABLES Final Result [facility] [address] [place] [phone] * (ABNORMAL) Basic Metabolic Panel (08/02/2022 12:17 AM EST) Sodium 140 135 - 145 mmol/L [facility] Potassium 3.9 3.3 - 5.1 mmol/L [facility] Chloride 105 96 - 108 mmol/L [facility] Carbon Dioxide 24 22 - 29 mmol/L [facility] Anion Gap 15 12 - 20 [facility] Urea Nitrogen (BUN) 14 9 - 16 mg/dL [facility] Creatinine, Serum 0.75 0.5 - 1.4 mg/dL [facility] Creatinine Clr Calc Pharmacy 71.4 [facility] Comment:Provided height and weight: 162.56 cm,63.503 kg.eGFR (calculated from the MDRD study equation) and eCrCl(calculated from the Cockcroft-Gault equation) are based ondifferent parameters and may not yield comparable results.If eCrCl result is absurd, please check patient'sheight/weight. Estimated Glomerular Filt Rate >60 [facility] Comment:NOTE: For -Am erican individuals, multiply the result by 1.210.Chronic Kidney Disease: Estimated GFR < 60 mL/min/1.02a6Lmedgm Kidney Disease: Estimated GFR < 15 mL/min/1.73m2 Glucose 119(H) 60 - 115 mg/dL [facility] Calcium 9.0 8.4 - 10.2 mg/dL [facility] 08/02/2022 12:1 7 AM EST 08/02/2022 12:19 AM EST [facility] External Provider LAB BLO OD ORDERABLES Final Result [facility] [address] [place] [address] [phone] * (ABNORMAL) CBC auto differential (08/02/2022 12:17 AM EST) White Blood Count 6.4 4.8 - 10.8 X10*3/uL [facility] Red Blood Count 3.96(L) 4.20 - 5.50 X10*6/uL [facility] Hemoglobin 10.8(L) 12.0 - 16.0 g/dl [facility] Hematocrit 33.0(L) 37.0 - 47.0 % [facility] Mean Corpuscular Volume 83.3 80.0 - 98.0 fL [facility] Mean Corpuscular Hemoglobin 27.3 27.0 - 33.0 pg [facility] Mean Corpuscular HGB Conc 32.7 31.0 - 35.0 g/dl [facility] Red Cell Distribution Width 14.2 11.0 - 16.0 % [facility] Platelet Count 202 160 - 400 X10*3/uL [facility] Mean Platelet Volume 9.2(L) 9.4 - 12.3 fL [facility] Neutrophils Percent Auto 68.5 45 - 73 % [facility] Imm Gran Pct Auto 0.2 0.0 - 0.4 % [facility] Lymphocytes Percent Auto 21.9 20 - 40 % [facility] Monocytes Percent Auto 8.6 2 - 11 % [facility] Eosinophils Percent Auto 0.5 0 - 4 % [facility] Basophils Percent Auto 0.3 0 - 2 % [facility] NRBC Pct Auto 0.0 0.0 - 0.2 /100WBC [facility] Neutrophils Absolute Auto 4.4 2.0 - 8.3 x10*3/uL [facility] Imm Gran Abs Auto 0.01 0.00 - 0.03 X10*3/uL [facility] Lymphocytes Absolute Auto 1.4 1.2 - 4.9 X10*3/uL [facility] Monocytes Absolute Auto 0.6 0.1 - 1.2 X10*3/uL [facility] Eosinophils Absolute Auto 0.0 0.0 - 0.4 X10*3/uL [facility] Basophils Absolute Auto 0.0 0.0 - 0.2 X10*3/uL [facility] NRBC Abs Auto 0.000 0.0 - 0.012 X10*3/uL [facility] 08/02/2022 12:1 7 AM EST 08/02/2022 12:19 AM EST us [facility] External Provider LAB BLO OD ORDERABLES Final Result [facility] [address] [place] [phone] * Culture, Urine, Routine (08/02/2022 12:00 AM EST) 08/02/2022 08/02/2022 7:3 1 AM EST Comment:UACC Narrative [facility] - 08/03/2022 9:19 AM EST Urine Culture No growth. Specimen Source: Urine clean catch [facility] Exter nal Provider LAB MICROBIOLOGY - GENERAL ORDERABLES Final Result Performing Organization Address City/State/[facility] Co de Phone Number [facility] [address] [place] [phone] documented in this encounter Visit Diagnoses Not on filedocumented in this encounter Care Teams Juvenile Detention Officer Relationship Specialty Start Date End Date Amber Quiroz MD [address] [place] [phone] PCP - General Family Medicine 07/03/18 documented as of this encounter
--- OUTSIDE RECORDS SUMMARY | 2024-10-19 04:43 | XMS_ITS | Encounter Summary ---
Author Organization [email or web address] [facility] Address [address] [facility] 7[address] [place] [address] Care Team Providers Care Earth Science Professor Name Role Phone Amber Quiroz MD Primary Care Provider [phone] Encounter Details Date Type Department Care Team (Late st Contact Info) Description 12/12/2022 Orders Only [facility] [address] [place] [phone] Anabell Martinez LPN Social History Tobacco Use [...] Description 11/12/2024 1:30 PM EDT Office Visit [facility] [address] [place] [phone] Amber Quiroz MD [address] [place] [phone] documented as of this encounter Visit Diagnoses Not on filedocumented in this encounter Care Teams Earth Science Professor Relationship Specialty Start Date End Date Amber Quiroz MD [address] [place] [phone] PCP - General Family Medicine 1/1/19 documented as of this encounter
--- OUTSIDE RECORDS SUMMARY | 2024-10-19 04:43 | XMS_ITS | Clinical Summary ---
Author Organization [employer] Address [address] [facility] [address]t [place] [address] Care Team Providers Care Locomotive Operator Name Role Phone Amber Quiroz MD Primary Care Provider [phone] Allergies Active Allergy Reactions Criticality Noted Date [...] eorder (will not trigger notification to Pharmacy)) traMADol (Ultram) 50 MG tabletIndications :Nephrolithiasis Take 1 tablet (50 mg) by mouth every 8 (eight) hours if needed for severe pain. 15 tablet 025 2024 Discontinued(R eorder (will [...] Encounters Date Type Department Care Team Description 10/18/2024 Refill [facility] [address] [place] [address] Rachelle Lucero, DOROTA Nephrolithiasis 10/18/2024 Telephone [facility] [address] [place] [phone] Amber Quiroz MD Med Refill 10/17/2024 Telephone [facility] [address] [place] [phone] Cheryl Larkin, RN Sent to ED from Office 10/16/2024 Telephone [facility] [address] [place] [phone] Amber Quiroz MD Chart Prep 10/15/2024 Telephone [facility] [address] [place] [address] [phone] Amber Quiroz MD Nurse Triage 10/11/2024 Patient Outreach [facility] [address] [place] [address] [phone] Amber Quiroz MD Care Coordination (CM/CHW outreach) 10/11/2024 Patient Outreach [facility] [address] [place], [place] [address] [place] [address] Amber Quiroz MD Care Coordination (CM/CHW outreach) 10/08/2024 Refill [facility] [address] [place] [address] Rachelle Lucero, DOROTA Nephrolithiasis 10/08/2024 Telephone [facility] [address] [place] [address] Amber Quiroz MD 10/07/2024 Refill [facility] [address] [place] [phone] Amber Quiroz MD Nausea 10/02/2024 Telephone [facility] [address] [place] [phone] 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, detacker Question 10/01/2024 11:30 AM EDT Telemedicine [facility] [address] [place] [address] 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, DOROTA Essential hypertension 10/01/2024 Travel 10/01/2024 Telephone [facility] [address] [place] [address] Amber Quiroz MD 09/26/[address] [address] Amber Quiroz MD Nurse Triage 09/25/2024 Refill [facility] [address] [place] [phone] Amber Quiroz MD Moderate persistent asthma without complication 09/25/2024 Telephone [facility] [address] [place] [address] Amber Quiroz MD Care Management ([facility]- initial assessment/ enrollment #2. lvm) 09/24/2024 Patient Outreach [facility] [address] [place] [address] [phone] Amber Quiroz MD Care Coordination (CM/CHW appt reminder) 09/20/2024 Refill [facility] [address] [place] [address] [phone] Amber Quiroz MD Nephrolithiasis 09/13/2024 Population Health Risk Score [facility] () Department [address] [place] [phone] Provider, Population Health Generic 09/05/2024 Telephone [facility] [place] [address] 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 RN Results 09/04/2024 Orders Only [facility] [place] [address] Amber Quiroz MD Routine screening for STI (sexually transmitted infection) (Primary Dx) 09/04/2024 Patient Outreach [facility] [place] [address] Amber Quiroz MD Care Coordination (CM/CHW outreach) 09/04/2024 Refill [facility] [place] [address] Amber Quiroz MD 09/03/2024 3:00 PM EST Office Visit [facility] [place] [address] Amber Quiroz MD Loin pain hematuria syndrome (Primary Dx); Essential hypertension; Kidney stones; Nephrolithiasis; Mood disorder (CMS/HCC); Dyslipidemia; Encounter for immunization; Dietary counseling; Exercise counseling; Overweight; Panic disorder without agoraphobia; Anxiety; Iron deficiency anemia, unspecified iron deficiency anemia type 09/03/2024 Telephone [facility] [place] [address] Amber Quiroz MD Appointment Request 09/03/2024 Travel 08/29/2024 Refill [facility] [place] [address] Amber Quiroz MD 08/28/2024 Telephone [facility] [place] [address] Shellie Eric MA chart prep 08/28/2024 Patient Outreach [facility] [place] [address] Amber Quiroz MD Care Coordination (CM/CHW outreach) 08/26/2024 Telephone [facility] [address] [place] [phone] Amber Quiroz MD Nurse Triage 08/25/2024 Refill [facility] [address] [place] [address] Amber Quiroz MD Pain 08/21/2024 Telephone [facility] [address] [place] [address] Amber Quiroz MD Nurse Triage 08/15/2024 Patient Outreach [facility] [address] [place], [place] [phone] Amber Quiroz MD Care Coordination (CM/CHW outreach) 08/15/2024 Telephone [facility] [address] [place], [place] [phone] Marixa Eric RN Care Management (C3- chart review) 08/15/2024 Refill [facility] [address] [place], [place] [phone] Amber Quiroz MD Nausea 08/14/2024 Orders Only [...] ble, preservative free 09/03/2024 Moderna Covid-19 Vaccine + 08/10/2021 Pfizer Covid-19 [...] Description 11/12/2024 1:30 PM EDT Office Visit [facility] [address] [place] [address] Amber Quiroz MD [address] [place], [place] [phone] Health Maintenance Due Date Last Done Comments [...] EST) Pathologist Review - CBC SEE NOTE [facility] Comment:Normochromic normocy tic anemia; white blood cells are mildlydecreased in number, but otherwise normal appearing.- Ray Viera M.D. Pathology Blood Venous blood specimen / Unknown 09/03/2024 4:26 PM EST 09/03/2024 6:14 PM EST Amber Quiroz MD LAB BLOOD ORDERABLES Final Resul t [facility] [address] [place] [address] [phone] * Vitamin B12/Folate, Serum Panel (09/03/2024 4:26 PM EST) Vitamin B12 247 200 - 900 pg/mL [facility] Comment:NORMAL 200-900 PG/ML INDETERMINATE 160-199 PG/ML DEFICIENT < 160 PG/ML Folate 9.9 > or = 4.0 ng/mL [facility] Comment:Reference Values:> o r = 4.0 ng/mL< 4.0 ng/mL suggests folate deficiency Methotrexate, aminopterin and folinic acid(leucovorin) are chemotherapeutic agents whose molecularstructures are similar to folate; therefore, the Architectfolate assay cannot be used for patients using these drugs. 09/03/2024 4:26 PM EST 09/03/2024 6:14 PM EST Amber Quiroz MD LAB BLOOD ORDERABLES Final Resul t Performing Organization Address [facility] Co de Phone Number [facility] [address] [place] [phone] * TSH with Reflex to Free T4 (09/03/2024 4:26 PM EST) TSH reflex Free T4 1.08 0.32 - 4.0 uIU/mL [facility] Blood 09/03/2024 4:26 PM EST 09/03/2024 6:14 PM EST Amber Quiroz MD LAB BLOOD ORDERABLES Final Resul t Performing Organization Address [facility] Co de Phone Number [facility] [address] [place] [phone] * (ABNORMAL) Lipid Panel with Reflex to Direct LDL (09/03/2024 4:26 PM EST) Triglycerides 112 <150 mg/dL [facility] Comment:Desirable Triglyceri de: less than 150 mg/dLBorderline High Triglyceride 150-199 mg/dLHigh Triglyceride: 200-499 mg/dLVery High Triglyceride: greater than or equal to 5OO mg/dL Cholesterol 183 <200 mg/dL [facility] Comment:Desirable Cholestero l: less than 200 mg/dLBorderline High Cholesterol: 200-239 mg/dLHigh Cholesterol: greater than 239 mg/dL LDL Cholesterol Calculated 112(H) <100 mg/dL [facility] Comment:Desirable LDL: less than 100 mg/dLNear Optimal/Above Optimal LDL: 110- 129 mg/dLBorderline High LDL: 130-159 mg/dLHigh LDL: 160-189 mg/dLVery High LDL: greater than or equal to 190 mg/dL HDL Cholesterol 49 >40 mg/dL [facility] Comment:Desirable HDL: great er than 40 mg/dL Note: This HDL assay may give artificially low results in patients with liver disease. Blood 09/03/2024 4:26 PM EST 09/03/2024 6:14 PM EST us Amber Quiroz MD LAB BLOOD ORDERABLES Final Resul t [facility] [address] [place] [address] [phone] * (ABNORMAL) CBC auto differential (09/03/2024 4:26 PM EST) White Blood Count 4.3(L) 4.8 - 10.8 X10*3/uL [facility] Red Blood Count 4.34 4.20 - 5.50 X10*6/uL [facility] Hemoglobin 11.4(L) 12.0 - 16.0 g/dl [facility] Hematocrit 35.9(L) 37.0 - 47.0 % [facility] Mean Corpuscular Volume 82.7 80.0 - 98.0 fL [facility] Mean Corpuscular Hemoglobin 26.3(L) 27.0 - 33.0 pg [facility] Mean Corpuscular HGB Conc 31.8 31.0 - 35.0 g/dl [facility] Red Cell Distribution Width 15.3 11.0 - 16.0 % [facility] Platelet Count 277 160 - 400 X10*3/uL [facility] Mean Platelet Volume 10.5 9.4 - 12.3 fL [facility] Neutrophils Percent Auto 46.0 45 - 73 % [facility] Imm Gran Pct Auto 0.2 0.0 - 0.4 % [facility] Lymphocytes Percent Auto 45.1(H) 20 - 40 % [facility] Monocytes Percent Auto 6.8 2 - 11 % [facility] Eosinophils Percent Auto 1.4 0 - 4 % [facility] Basophils Percent Auto 0.5 0 - 2 % [facility] NRBC Pct Auto 0.0 0.0 - 0.2 /100WBC [facility] Neutrophils Absolute Auto 2.0 2.0 - 8.3 x10*3/uL [facility] Imm Gran Abs Auto 0.01 0.00 - 0.03 X10*3/uL [facility] Lymphocytes Absolute Auto 1.9 1.2 - 4.9 X10*3/uL [facility] Monocytes Absolute Auto 0.3 0.1 - 1.2 X10*3/uL [facility] Eosinophils Absolute Auto 0.1 0.0 - 0.4 X10*3/uL [facility] Basophils Absolute Auto 0.0 0.0 - 0.2 X10*3/uL [facility] NRBC Abs Auto 0.000 0.0 - 0.012 X10*3/uL [facility] Blood Venous blood specimen / Unknown 09/03/2024 4:26 PM EST 09/03/2024 6:14 PM EST us Amber Quiroz MD LAB BLOOD ORDERABLES Final Resul t [facility] [address] [place] [address] [phone] * Iron And Total Iron Binding Capacity (09/03/2024 4:26 PM EST) Iron 69 30 - 160 mcg/dL [facility] Comment:Slight Hemolysis.Int erpret result with caution. Total Iron Binding Capacity 250 228 - 428 mcg/dL [facility] Percent Iron Saturation 28 15 - 50 % [facility] Unsaturated Iron Binding 181 ug/dL [facility] Blood Venous blood specimen / Unknown 09/03/2024 4:26 PM EST 09/03/2024 6:14 PM EST us Amber Quiroz MD LAB BLOOD ORDERABLES Final Resul t Performing Organization Address [facility] Co de Phone Number [facility] [address] [place] [address] [phone] * Hemoglobin A1c (09/03/2024 4:26 PM EST) Hemoglobin A1c 5.6 <6.0 % [facility] Comment:Hemoglobin A1C Refer ence Range Adults: 4.8 - 6.0 % Non diabetic: < 6.0 % Goal: < 7.0 %Additional Action Suggested: > 8.0 %Note: Hemoglobin A1c results are invalid for patients with abnormal amounts of HbF. Blood transfusions may impact the HbA1c concentration in the patient sample. Estimated Average Glucose 114 mg/dL [facility] Comment:eAG = Estimated ave rage glucose which is %A1C expressed asaverage glucose, using the formula of the Q7C-AohzxieDkmolog Glucose study (ADAG), Diabetes Care, Vol.31,#8,Jan. 2007 Blood Venous blood specimen / Unknown 09/03/2024 4:26 PM EST 09/03/2024 6:14 PM EST us Amber Quiroz MD LAB BLOOD ORDERABLES Final Resul t Performing Organization Address [facility] Co de Phone Number [facility] [address] [place] [phone] * Ferritin (09/03/2024 4:26 PM EST) Ferritin 51 10 - 250 ng/mL [facility] Blood Venous blood specimen / Unknown 09/03/2024 4:26 PM EST 09/03/2024 6:14 PM EST Amber Quiroz MD LAB BLOOD ORDERABLES Final Resul t Performing Organization Address [facility] Co de Phone Number [facility] [address] [place] [phone] * (ABNORMAL) Comprehensive Metabolic Panel (09/03/2024 4:26 PM EST) Sodium 143 135 - 145 mmol/L [facility] Potassium 3.9 3.3 - 5.1 mmol/L [facility] Comment:Slight Hemolysis.Int erpret result with caution. Chloride 111(H) 96 - 108 mmol/L [facility] Carbon Dioxide 23 22 - 29 mmol/L [facility] Anion Gap 13 12 - 20 [facility] Urea Nitrogen (BUN) 15 9 - 16 mg/dL [facility] Creatinine, Serum 0.66 0.5 - 1.4 mg/dL [facility] Estimated Glomerular Filt Rate >60 [facility] Comment:Chronic Kidney Disea se: Estimated GFR < 60 mL/min/1.77q5Hmynpe Kidney Disease: Estimated GFR < 15 mL/min/1.73m2 Glucose 91 60 - 115 mg/dL [facility] Calcium 8.6 8.4 - 10.2 mg/dL [facility] Bilirubin, Total 0.4 0.0 - 1.0 mg/dL [facility] Aspartate Amino Transferase 28 5 - 31 U/L [facility] Comment:Slight Hemolysis.Int erpret result with caution. Alanine Aminotransferase 11 0 - 31 U/L [facility] Total Protein 8.0 6.5 - 8.0 g/dL [facility] Albumin Level 4.4 3.5 - 5.0 g/dL [facility] Alkaline Phosphatase 87 39 - 117 U/L [facility] Blood Venous blood specimen / Unknown 09/03/2024 4:26 PM EST 09/03/2024 6:14 PM EST us Amber Quiroz MD LAB BLOOD ORDERABLES Final Resul t [facility] [address] [place] [address] [phone] * Urinalysis w/reflex microscopic (08/14/2024 11:57 AM EST) Color Urine Yellow [facility] Appearance Urine Clear [facility] PH 7.0 5.0 - 9.0 [facility] Glucose Urine UA Negative Negative mg/dL [facility] Urine Blood Negative Negative [facility] Specific Porter - Urine 1.015 1.005 - 1.025 [facility] Urine Protein Negative Neg-Trace mg/dL [facility] Urine Ketones Negative Negative mg/dL [facility] Nitrite Urine Negative Negative [facility] Leukocyte Esterase Urine Negative Negative [facility] 08/14/2024 11:5 7 AM EST 08/14/2024 12:00 PM EST Narrative [facility] - 08/14/2024 12:07 PM EST Urine, Clean Catch us Generic External Data Provider LAB URINE ORDERAB LES Final Result [facility] [address] [place] [address] [phone] * CT Abdomen Pelvis w/o Contrast (08/14/2024 10:31 AM EST) Anatomical Region Laterality Modality Body, Pelvis, Abdomen Computed T omography 08/14/2024 10:3 1 AM EST Narrative 08/14/2024 11:34 AM EST ? [facility] ?[address] ?[place] [address] ? CT Scan Report ? Signed ? Patient: Marquez,Zelidez ?MR#: [id number] ?? [id number] ? : 1965 ?Acct:[id number] ? Age/Sex: 58 / F ?ADM Date: 08/14/25 ? Loc: HO.ED ? Attending Dr: ? Ordering Physician: Radha Crowder KILN DRAWER ?? Date of Service: 08/14/24 ?? Procedure(s): CT abdomen pelvis wo IV con ?? Accession Number(s): [id number] ? cc: Amber Quiroz MD; Radha Crowder NP ? Report Number: ?? [id number]: Total DLP = ??365.00 mGy-cm ?? EXAMINATION: [...] MD ? Signed By: ?<Electronically signed by iMsha Curtis MD in OV> ?08/14/24 1131 ? DD/ 1031 ? TD/TT: 08/14/24 1104 ? Sanitary Landfill Supervisor: ? Procedure Note True, Image - 08/14/[address] [place] [address] [address] Scan Report Signed Patient: Heidi Marquez#: [id number] : 1965Acct:[id number] Age/Sex: 58 / FADM Date: 08/14/24 Loc: HO.ED Attending Dr: Ordering Physician: Radha Crowder NP Date of Service: 08/14/24 Procedure(s): CT abdomen pelvis wo IV con Accession Number(s): [id number] cc: Amber Quiroz MD; Radha Crowder NP Report Number: [id number]: Total DLP = 365.00 mGy-cm EXAMINATION: CT [...] 08/14/24 1131 DD/ 1031 TD/TT: 08/14/24 1104 Sanitary Landfill Supervisor: us [facility] External Provider IMG CT PROCEDURES Final Result * (ABNORMAL) THINPREP TIS PAP AND HPV mRNA E6/E7 WITH REFLEX TO HPV 16,18/45 (07/30/2021 10:17 AM EST) Clinical Information: PM BLEEDING [facility] COMMENT SEE COMMENT [facility] ON [...] assisted technology. [facility] Welding Machine Operator Electroslag: SEE COMMENT [facility] Comment: BJ, CT(ASCP) CT screening location: [address] ??[address] General Categorization: EPITHELIAL CELL ABNORMALITY(A ) [facility] HPV nRNA E6/E7 Not Detected Not Detected [facility] Comment: Methodology: Title Insurance Examiner-Mediated Amplification This assay detects E6/E7 viral messenger RNA (mRNA) from 14 high-risk HPV types (16,18,31,33,35,39,45,51,52,56,58,59,66,68). ? The analytical performance characteristics of this assay have been determined by [employer]. The modifications have not been cleared or approved by the FDA. This assay has been validated pursuant to the CLIA regulations and is used for clinical purposes. ?? For additional information, please refer to http://education.MumsWay/faq/QLC525d2 (This link if provided for information/ educational purposes only.) Infection Shift in vaginal geovanny suggestive of bacterial vaginosis. 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 LMP: NONE GIVEN [facility] PATHOLOGIST: SEE COMMENT [facility] Comment: Jennifer Branch M.D., Board Certified in Anatomic and Clinical Pathology (electronic signature) Consulting Pathologist [facility] [phone] Prev. BX: NONE GIVEN [facility] Prev. PAP: NONE GIVEN [facility] ON [facility] SOURCE: None given [facility] Statement Of Adequacy: SEE COMMENT [facility] Comment: Satisfactory for evaluation. Endocervical/transformation zone component present. 07/30/2021 10:1 7 AM EST us Saleem Maier MD LAB PATHOLOGY ORDERABLES Final R esult [facility] [address] from Last 3 Months or Most Recently Relevant to Health Maintenance Insurance Care Teams Locomotive Operator Relationship Specialty Start Date End Date Amber Quiroz MD [address] [place] [address] PCP - General Family Medicine 07/03/18
--- OUTSIDE RECORDS SUMMARY | 2024-10-19 04:43 | XMS_ITS | Encounter Summary ---
Author Organization [employer] [facility] Address [address] [facility] [address] [place] [address] Care Team Providers Care Rotary Driller Name Role Phone Amber Quiroz MD Primary Care Provider [phone] Encounter Details Date Type Department Care Team (Late st Contact Info) Description 11/16/2022 Abstract [facility] [address] [place] [address] [phone] Amber Quiroz MD [address] [place] [phone] Social History Tobacco Use Types Packs/Day Years [...] Description 11/12/2024 1:30 PM EDT Office Visit [facility] [address] [place] [address] [phone] Amber Quiroz MD [address] [place], [place] [phone] documented as of this encounter Visit Diagnoses Not on filedocumented in this encounter Care Teams Rotary Driller Relationship Specialty Start Date End Date Amber Quiroz MD [address] [place] [address], [place] [address] PCP - General Family Medicine 07/03/18 documented as of this encounter
--- OUTSIDE RECORDS SUMMARY | 2024-10-19 04:43 | XMS_ITS | Encounter Summary ---
Author Organization [employer] Address [address] [facility] [address] [place] [address] Care Team Providers Care Etl Developer Name Role Phone Amber Quiroz MD Primary Care Provider [phone] Reason for Visit * Reason Onset Date Comments Nurse Triage 10/15/2024 Encounter Details Date Type Department Care Team ([facility] st Contact Info) Description 10/15/2024 Telephone [facility] [address] [place], [place] [phone] Amber Quiroz MD [address] [place], [place] [phone] Nurse Triage Social History Tobacco Use Types [...] t he electric, gas, oil or water [employer] threatened to shut off services in [...] 10/15/2024 11:32 AM EDT Date: 10/13/24 Hospital: [facility] Seen for: kidney stone Symptomatic Yes Called pt. She states that she was seen at [facility] on 10/13/24 for kidney stones and she [...] ED visit on : Date: 10/13/24 Hospital: [facility] Seen for: kidney stone Symptomatic Yes *if yes message should go to Triage Patient advised will forward to team nurse for follow up Best contact number [phone] documented in this encounter Plan of Treatment Upcoming Encounters Date Type Department Care Team (Late st Contact Info) Description 11/12/2024 1:30 PM EDT Office Visit [facility] [address] [place] [address] Amber Quiroz MD [address] [place], [place] [phone] documented as of this encounter Visit Diagnoses Not on filedocumented in this encounter Care Teams Etl Developer Relationship Specialty Start Date End Date Amber Quiroz MD [address] [place], [place] [phone] PCP - General Family Medicine 07/03/18 documented as of this encounter
--- OUTSIDE RECORDS SUMMARY | 2024-10-19 04:43 | XMS_ITS | Encounter Summary ---
Author Organization [employer] Address [address] [facility] 7t [place] [address] Care Team Providers Care Instructor Programmable Controllers Name Role Phone Amber Quiroz MD Primary Care Provider [phone] Reason for Visit * Reason Onset Date Comments Appointment Request 11/22/2023 Encounter Details Date Type Department Care Team ([facility] st Contact Info) Description 11/22/2023 Telephone [facility] MEDICINE [address] [place], [place] [phone] Amber Quiroz MD [address] [place], [place] [phone] Appointment Request Social History Tobacco Use Types [...] due tosleep difficulty. Please contact pt at [phone]. documented in this encounter Plan of Treatment Upcoming Encounters Date Type Department Care Team (Late st Contact Info) Description 11/12/2024 1:30 PM EDT Office Visit [facility] MEDICINE [address] [place] [address] Amber Quiroz MD 230 [place] [address] documented as of this encounter Visit Diagnoses Not on filedocumented in this encounter Care Teams Instructor Programmable Controllers Relationship Specialty Start Date End Date Amber Quiroz MD [address] [place] [address] PCP - General Family Medicine 07/03/18 documented as of this encounter
--- OUTSIDE RECORDS SUMMARY | 2024-10-19 04:43 | XMS_ITS | Encounter Summary ---
Author Organization [employer] Address [address] [facility] 7t [place] [address] Care Team Providers Care Head Tennis Coach Name Role Phone Amber Quiroz MD Primary Care Provider [phone] Encounter Details Date Type Department Care Team (Late st Contact Info) Description 09/04/2024 Orders Only [facility] MEDICINE [address] [place], [place] [phone] Amber Quiroz MD 230 [place], [place] [phone] Routine screening for STI (sexually transmitted infection) [...] t he electric, gas, oil or water [employer] threatened to shut off services in your [...] Description 11/12/2024 1:30 PM EDT Office Visit [facility] MEDICINE [address] [place] [address] Amber Quiroz MD [address] [place] [phone] Scheduled Orders Name Type Priority Associated Diagnoses [...] disease documented in this encounter Care Teams Head Tennis Coach Relationship Specialty Start Date End Date Amber Quiroz MD [address] [place] [address], [place] [address] PCP - General Family Medicine 07/03/18 documented as of this encounter
--- OUTSIDE RECORDS SUMMARY | 2024-10-19 04:43 | XMS_ITS | Clinical Summary ---
Author Organization [facility] Address [address] [place] [address] Phone Care Team Providers Care Assistant Product Manager Name Role Phone Physician, No Pcp Primary Care Provider Unavaila ble Allergies Active Allergy Reactions Criticality Noted Date Comments Aspirin Congestion of the throat 08/21/2024 Ibuprofen Swallowing Problem 08/21/2024 Acetaminophen Swallowing Problem 08/21/2024 Medications No known medications Active Problems No known active problems Encounters Date Type Department Care Team Description 09/25/2024 Lab Requisition [facility] [address] [facility] [place] [address] Zachery Chi PA Calculus of ureter 08/21/2024 3:41 PM EST - 08/21/2024 7:08 PM EST Emergency [facility] Emergency [address] [place] [address] Bilateral flank pain (Primary Dx); [...] hormone intact (09/25/2024 3:15 PM EDT) Pathologist [facility] PTH 31.1 18.5 - 88.0 pcg/mL LAB CHEMISTRY METHOD 09/25/2024 7:10 PM EDT [facility] Blood Venous blood specimen / Unknown 09/25/2024 3:15 PM EDT 09/25/2024 6:18 PM EDT Zachery LUO LAB BLOOD ORDERABLES Final Res ult [facility] [address] [place] [address], [place] [phone] * ECG-Annotated (08/22/2024) Provider Onbase MD ECG ORDERABLES Final Result * (ABNORMAL) Drug abuse screen 8a panel, urine (08/21/2024 6:02 PM EST) [facility] Amphetamine Screen, Ur Negative Negative LAB CHEMISTRY METHOD 5 6:35 PM EST [facility] Comment:Certain OTC medicati ons containing ephedrine, phenylephrine, pseudoephedrine and phenylpropanolamine can cause false positive results. Barbiturate Screen, Ur Negative Negative LAB CHEMISTRY METHOD 5 6:35 PM EST [facility] Benzodiazepine Screen, Ur Negative Negative LAB CHEMISTRY METHOD 5 6:35 PM EST [facility] Cocaine Screen, Ur Positive(A ) Negative LAB CHEMISTRY METHOD 5 6:35 PM EST [facility] Opiate Screen, Ur Negative Negative LAB CHEMISTRY METHOD 5 6:35 PM EST [facility] Cannabinoid (THC) Screen, Ur Positive(A ) Negative LAB CHEMISTRY METHOD 5 6:35 PM EST [facility] Comment:Specimens from patie nts taking pantoprazole sodium (Protonix) have been shown to produce false positive results. Oxycodone Screen, Ur Negative Negative LAB CHEMISTRY METHOD 5 6:35 PM EST [facility] Fentanyl, Ur Negative Negative LAB CHEMISTRY METHOD 5 6:35 PM EST [facility] Urine Urine specimen obtained by clean catch procedure / Unknown Non-blood Collection / Unknown 08/21/2024 6:02 PM EST 08/21/2024 6:09 PM EST Narrative [facility] - 08/21/2024 6:35 PM EST Assay [...] Za LUO LAB URINE ORDERABLES Final Result [facility] [address] [place] [address], * (ABNORMAL) Urinalysis with reflex microscopic and culture (08/21/2024 6:00 PM EST) Specific [place] Urine 1.019 1.003 - 1.030 LAB URINALYSIS - AUTOMATED METHOD 08/21/2024 6:43 PM EST [facility] pH, Urine 6.5 [...] - AUTOMATED METHOD 08/21/2024 6:43 PM EST [facility] Urine Urine specimen obtained by clean catch procedure / Unknown Non-blood Collection / Unknown 08/21/2024 6:00 PM EST 08/21/2024 6:09 PM EST Ramiro Miguelrussell Maier DO LAB URINE ORDERABLES Final Resu lt [facility] [address] [place] [address], [place] [phone] * Vaughn urine culture tube (08/21/2024 6:00 PM EST) Extra Tube Hold for add-ons. 08/21/2024 8:01 PM EST [facility] Comment:Auto resulted. Urine Urine specimen obtained by clean catch procedure / Unknown Non-blood Collection / Unknown 08/21/2024 6:00 PM EST 08/21/2024 6:09 PM EST Ramiro Ryan Livier [facility] LAB URINE ORDERABLES Final Resu lt Performing Organization Address [facility]/ZIP Co de Phone Number [facility] [address] [place] [address], [place] [phone] * Culture urine (08/21/2024 6:00 PM EST) Culture, Urine 10,000-49,000 CFU/mL Mixed urogenital geovanny, no uropathogens present. Suggest repeat specimen if clinically indicated. 08/22/2024 2:06 PM EST [facility] Urine Urine specimen obtained by clean catch procedure / Unknown Non-blood Collection / Unknown 08/21/2024 6:00 PM EST 08/21/2024 6:43 PM EST Ramiro Miguelrussell Maier DO LAB MICROBIOLOGY - GENERAL ORDE RABLES Final Result Performing Organization Address City/[facility] Co de Phone Number [facility] [address] [place] [address], * CT Head wo Contrast (08/21/2024 5:00 [...] GEMUSE QTc 443 ms GEMUSE P Wave [place] 58 degrees GEMUSE R [place] 11 degrees GEMUSE T [place] 43 degrees GEMUSE ECG Interpretation Normal sinus [...] 08/21/2024 4:06 PM [facility] RBC 4.60 3.80 - 4.80 M/mcL LAB HEMETOLOGY METHOD 08/21/2024 4:06 PM [facility] Hemoglobin 12.2 11.5 - 16.0 g/dL LAB HEMETOLOGY METHOD 08/21/2024 4:06 PM [facility] Hematocrit 37.6 35.0 - 47.0 [...] PM [facility] Immature Granulocytes Relative 0.2 % [...] LAB HEMETOLOGY METHOD 08/21/2024 4:06 PM EST [facility] Basophils Absolute 0.01 0.00 - 0.20 K[facility] LAB HEMETOLOGY METHOD 08/21/2024 4:06 PM EST [facility] Immature Granulocytes Absolute 0.01 0.00 - 0.03 [facility] LAB HEMETOLOGY METHOD 08/21/2024 4:06 PM [facility] Blood Venous blood specimen / Unknown Venipuncture / Unknown 08/21/2024 3:50 PM EST 08/21/2024 3:56 PM EST [employer]on [employer] [facility] LAB BLOOD ORDERABLES Final Resu lt Performing Organization Address City/[facility]/ZIP Co de Phone Number [facility] [address] [place] [address], [place] [phone] * Lipase (08/21/2024 3:50 PM EST) Lipase 34 13 - 75 unit/L LAB CHEMISTRY METHOD 08/21/2024 4:26 PM [facility] Blood Venous blood specimen / Unknown Venipuncture / Unknown 08/21/2024 3:50 PM EST 08/21/2024 3:56 PM EST [employer] Davis Livier LAB BLOOD ORDERABLES Final Resu lt Performing Organization Address City/[facility]/ZIP Co de Phone Number [facility] [address] [place] [address], [place] [phone] * (ABNORMAL) Comprehensive metabolic panel (08/21/2024 3:50 [...] LAB CHEMISTRY METHOD 08/21/2024 4:26 PM EST [facility] Total Bilirubin 0.2 0.0 - 1.4 mg/dL LAB CHEMISTRY METHOD 08/21/2024 4:26 PM EST [facility] Blood Venous blood specimen / Unknown Venipuncture / Unknown 08/21/2024 3:50 PM EST 08/21/2024 3:56 PM EST us Ramiro Maier DO LAB BLOOD ORDERABLES Final Resu lt [facility] [address] [place] [address], [place] [phone] from Last 3 Months Insurance MEDICAID - [place] Care Teams Assistant Product Manager Relationship Specialty Start Date End Date Physician, No Pcp PCP - General 08/21/24
--- OUTSIDE RECORDS SUMMARY | 2024-10-19 04:43 | XMS_ITS | Encounter Summary ---
Author Organization [employer] Address [address] [facility] 7t [place] [address] Care Team Providers Care Crusher And Binder Operator Name Role Phone Amber Quiroz MD Primary Care Provider [phone] Reason for Visit * Reason Onset Date Comments Med Refill 10/18/2024 Encounter Details Date Type Department Care Team ([facility] st Contact Info) Description 10/18/2024 Refill [facility] [address] [place] [address] Rachelle Lucero, RN [address] [place] [address] Nephrolithiasis Social History Tobacco Use Types Packs/Day [...] t he electric, gas, oil or water [employer] threatened to shut off services in your [...] 11/12/2024 1:30 PM EDT Office Visit [facility] MEDICINE [address] [place], [place] [phone] Amber Quiroz MD [address] [place] [address] documented as of this encounter Visit Diagnoses Diagnosis Nephrolithiasis Calculus of kidney documented in this encounter Care Teams Crusher And Binder Operator Relationship Specialty Start Date End Date Amber Quiroz MD [address] [place] [address] [phone] PCP - General Family Medicine 07/03/18 documented as of this encounter
--- OUTSIDE RECORDS SUMMARY | 2024-10-19 04:43 | XMS_ITS | Encounter Summary ---
Author Organization [employer] [facility] Address 75 [facility] 7 [place] [address] Care Team Providers Care Tobacco Sizer Name Role Phone Amber Quiroz MD Primary Care Provider [phone] Reason for Visit * Reason Comments Med Refill Encounter Details Date Type Department Care Team (Late st Contact Info) Description 04/26/2023 Refill [facility] MEDICINE [address] [place] [phone] Amber Quiroz MD [address] [place] [address] Nausea Social History Tobacco Use Types Packs/Day [...] Description 11/12/2024 1:30 PM EDT Office Visit [facility] MEDICINE [address] [place] [address] [phone] Amber Quiroz MD [address] [place] [phone] documented as of this encounter Visit Diagnoses Diagnosis Nausea Nausea alone documented in this encounter Care Teams Tobacco Sizer Relationship Specialty Start Date End Date Amber Quiroz MD [address] [place] [phone] PCP - General Family Medicine 07/03/18 documented as of this encounter
--- OUTSIDE RECORDS SUMMARY | 2024-10-19 04:43 | XMS_ITS | Encounter Summary ---
Author Organization [email or web address] Address 75 [facility] 7t [place] [address] Care Team Providers Care Executive Vice President Business Development Name Role Phone Amber Quiroz MD Primary Care Provider [phone] Reason for Visit * Reason Comments Med Refill Encounter Details Date Type Department Care Team ([facility] st Contact Info) Description 06/01/2023 Refill [facility] MEDICINE [address] [place], [place] [phone] Amber Quiroz MD [address] [place], [place] [phone] Pain Social History Tobacco Use Types Packs/Day [...] the past 12 months, has t he [employer], oil or water company threatened to shut [...] Description 11/12/2024 1:30 PM EDT Office Visit [facility] MEDICINE [address] [place] [address] Amber Quiroz MD [address] [place] [address] documented as of this encounter Visit Diagnoses Diagnosis Pain Generalized pain documented in this encounter Care Teams Executive Vice President Business Development Relationship Specialty Start Date End Date Amber Quiroz MD [address] [place] [address] PCP - General Family Medicine 07/03/18 documented as of this encounter
--- OUTSIDE RECORDS SUMMARY | 2024-10-19 04:43 | XMS_ITS | Encounter Summary ---
Author Organization [employer] [facility] Address 75 [facility] 7t [place] [address] Care Team Providers Care Machine Packer Name Role Phone Amber Quiroz MD Primary Care Provider [phone] Encounter Details Date Type Department Care Team (Late st Contact Info) Description 03/22/2023 Orders Only [facility] MEDICINE [address] [place] [address] [phone] Amber Quiroz MD [address] [place] [phone] ASCUS of cervix with negative high risk [...] 11/12/2024 1:30 PM EDT Office Visit [facility] MEDICINE [address] [place] [address] [phone] Amber Quiroz MD [address] [place] [address] [phone] documented as of this encounter Visit Diagnoses Diagnosis ASCUS of cervix with negative high risk HPV- Primary History of cervical dysplasia Personal history of cervical dysplasia documented in this encounter Care Teams Machine Packer Relationship Specialty Start Date End Date Amber Quiroz MD [address] [place] [phone] PCP - General Family Medicine 07/03/18 documented as of this encounter
--- OUTSIDE RECORDS SUMMARY | 2024-10-19 04:43 | XMS_ITS | Encounter Summary ---
Author Organization [facility] [employer] Address [address] [facility] 7t [place] [address] Care Team Providers Care Roll Panner Name Role Phone Amber Quiroz MD Primary Care Provider [phone] Encounter Details Date Type Department Care Team (Late st Contact Info) Description 12/12/2023 Orders Only [facility] MEDICINE [address] [place], [place] [phone] Amber Quiroz MD [address] [place], [place] [phone] Nephrolithiasis (Primary Dx) Social History Tobacco Use [...] Office Visit [facility] MEDICINE [address] [place] [address] Amber Quiroz MD [address] [place] [address] documented as of this encounter Visit Diagnoses Diagnosis Nephrolithiasis- Primary Calculus of kidney documented in this encounter Care Teams Roll Panner Relationship Specialty Start Date End Date Amber Quiroz MD [address] [place] [phone] PCP - General Family Medicine 07/03/18 documented as of this encounter
--- OUTSIDE RECORDS SUMMARY | 2024-10-19 04:43 | XMS_ITS | Encounter Summary ---
Author Organization [employer] Address 75 [facility] 7t [place] [address] Care Team Providers Care Material Control Supervisor Name Role Phone Amber Quiroz MD Primary Care Provider [phone] Reason for Visit * Reason Onset Date Comments Med Refill 01/10/2024 Encounter Details Date Type Department Care Team ([facility] st Contact Info) Description 01/10/2024 Telephone [facility] MEDICINE [address] [place], [place] [phone] Amber Quiroz MD [address] [place], [place] [phone] Med Refill Social History Tobacco Use Types [...] immediate release tablet To be sent to: [facility] - [place], [place] - [address] [place] [address] documented in this encounter Plan of Treatment Upcoming Encounters Date Type Department Care Team (Late st Contact Info) Description 11/12/2024 1:30 PM EDT Office Visit [facility] MEDICINE [address] [place] [address] Amber Quiroz MD [address] [place] [address] documented as of this encounter Visit Diagnoses Not on filedocumented in this encounter Care Teams Material Control Supervisor Relationship Specialty Start Date End Date Amber Quiroz MD [address] [place] [address] PCP - General Family Medicine 07/03/18 documented as of this encounter
--- OUTSIDE RECORDS SUMMARY | 2024-10-19 04:43 | XMS_ITS | Encounter Summary ---
Author Organization [employer] Address 75 [facility] 7t [place] [address] Care Team Providers Care Decorator Consultant Name Role Phone Amber Quiroz MD Primary Care Provider [phone] Reason for Visit * Reason Onset Date Comments Nurse Triage 01/11/2024 Encounter Details Date Type Department Care Team ([facility] st Contact Info) Description 01/11/2024 Telephone [facility] MEDICINE 230 [place], [place] [phone] Amber Quiroz MD 230 [place], [place] [phone] Nurse Triage Social History Tobacco Use Types [...] t he electric, gas, oil or water [employer] threatened to shut off services in your [...] HDF appt tomorrow at 1030am with García FINGERPRINT TECHNICIAN. RX updated with pending HDF. Team tasked that if medication available from PCP for overnight use [facility]. * Telephone Encounter - Lacy Sahni LPN - 01/11/2024 3:31 PM EDT Triage in process. Patient requesting pain medication for kidney stone pain in [facility] 01/07/24-01/08/24. Patient not seeing any [...] worse Override Notes: Seen and treated at [facility] known kidney stones wants something [...] Description 11/12/2024 1:30 PM EDT Office Visit [facility] MEDICINE [address] [place] [phone] Amber Quiroz MD [address] [place] [address] [phone] documented as of this encounter Visit Diagnoses Not on filedocumented in this encounter Care Teams Decorator Consultant Relationship Specialty Start Date End Date Amber Quiroz MD [address] [place] [address] [phone] PCP - General Family Medicine 07/03/18 documented as of this encounter
--- OUTSIDE RECORDS SUMMARY | 2024-10-19 04:43 | XMS_ITS | Encounter Summary ---
Author Organization [employer] Address 75 [facility] 7t [place] [address] Care Team Providers Care Tank Refinisher Name Role Phone Amber Quiroz MD Primary Care Provider Reason for Visit * Reason Onset Date Comments Med Refill 06/21/2024 Encounter Details Date Type Department Care Team ([facility] st Contact Info) Description 06/21/2024 Telephone [facility] MEDICINE [address] [place], [place] [phone] Amber Quiroz MD [address] [place], [place] [phone] Med Refill Social History Tobacco Use Types [...] extra strength with no relief. Please advise. EXPERIENTIAL THERAPIST checked 06/21/24. Last refill of Oxycodone 5mg 11/30/23 qty 12. * Telephone Encounter - Gemma Oliveira - 06/21/2024 10:12 AM EST TC from pt requesting medication refill. Medications needing refill : oxyCODONE (Oxy-IR) 5 MG immediate release capsule To be sent to: [facility] - [place], [place] - [address] [facility] documented in this encounter Plan of Treatment Upcoming Encounters Date Type Department Care Team (Late st Contact Info) Description 11/12/2024 1:30 PM EDT Office Visit [facility] MEDICINE [address] [place] [address] Amber Quiroz MD [address] [place] [address] documented as of this encounter Visit Diagnoses Not on filedocumented in this encounter Care Teams Tank Refinisher Relationship Specialty Start Date End Date Amber Quiroz MD [address] [place] [address] PCP - General Family Medicine 07/03/18 documented as of this encounter
--- OUTSIDE RECORDS SUMMARY | 2024-10-19 04:43 | XMS_ITS | Encounter Summary ---
Author Organization [email or web address] Address [address] [facility] [address] 7t [place] [address] Care Team Providers Care Strategic Partnership Representative Name Role Phone Amber Quiroz MD Primary Care Provider [phone] Encounter Details Date Type Department Care Team ([facility] st Contact Info) Description 11/24/2023 Telephone [facility] MEDICINE [address] [place], [place] [phone] Amber Quiroz MD [address] [place], [place] [phone] Social History Tobacco Use Types Packs/Day Years [...] EDT Office Visit [facility] MEDICINE [address] [place] [address] Amber Quiroz MD [address] [place] [address] documented as of this encounter Visit Diagnoses Not on filedocumented in this encounter Care Teams Strategic Partnership Representative Relationship Specialty Start Date End Date Amber Quiroz MD [address] [place] [address] PCP - General Family Medicine 07/03/18 documented as of this encounter
--- OUTSIDE RECORDS SUMMARY | 2024-10-19 04:43 | XMS_ITS | Encounter Summary ---
Author Organization [facility] Address [address] [place] [address] Care Team Providers Care Medical Pathology Teacher Name Role Phone Physician, No Pcp Primary Care Provider Unavaila ble Encounter Details Date Type Department Care Team (Late st Contact Info) Description 09/25/2024 Lab Requisition [facility] - Main Lab [address] [facility] [place] [address] Zachery Chi PA [address] [place] [address] Calculus of ureter Social History [...] LAB CHEMISTRY METHOD 09/25/2024 7:10 PM EDT [facility] Blood Venous blood specimen / Unknown 09/25/2024 3:15 PM EDT 09/25/2024 6:18 PM EDT us Zachery Chi PA LAB BLOOD ORDERABLES Final Res ult [facility] [address] [place] [address], documented in this encounter Visit Diagnoses Diagnosis Calculus of ureter documented in this encounter Care Teams Medical Pathology Teacher Relationship Specialty Start Date End Date Physician, No Pcp PCP - General 08/21/24 documented as of this encounter
--- OUTSIDE RECORDS SUMMARY | 2024-10-19 04:43 | XMS_ITS | Encounter Summary ---
Author Organization [employer] Address [address] [facility] 7t [place] [address] Care Team Providers Care Electrical Products Engineer Name Role Phone Amber Quiroz MD Primary Care Provider [phone] Reason for Visit * Reason Onset Date Comments Med Refill 10/18/2024 Encounter Details Date Type Department Care Team ([facility] st Contact Info) Description 10/18/2024 Telephone [facility] 230 [place], [place] [phone] Amber Quiroz MD 230 [place], [place] [phone] Med Refill Social History Tobacco Use Types [...] encounter Miscellaneous Notes * Telephone Encounter - Rashmi Iyer - 10/18/2024 9:22 AM EDT TC from pt requesting medication refill. Medications needing refill : traMADol (Ultram) 50 MG tablet To be sent to: [facility] Pharmacy- [address] [place] [phone] documented in this encounter Plan of Treatment Upcoming Encounters Date Type Department Care Team (Late st Contact Info) Description 11/12/2024 1:30 PM EDT Office Visit [facility] [address] [place] [phone] Amber Quiroz MD [address] [place] [phone] documented as of this encounter Visit Diagnoses Not on filedocumented in this encounter Care Teams Electrical Products Engineer Relationship Specialty Start Date End Date Amber Quiroz MD [address] [place] [phone] PCP - General Family Medicine 07/03/18 documented as of this encounter
--- OUTSIDE RECORDS SUMMARY | 2024-10-19 04:43 | XMS_ITS | Encounter Summary ---
Author Organization [employer] Address [address] [facility] 7t [place] [address] Care Team Providers Care Fire Support Specialist Name Role Phone Amber Quiroz MD Primary Care Provider [phone] Reason for Visit * Reason Onset Date Comments Sent to ED from Office 10/17/2024 Encounter Details Date Type Department Care Team ([facility] st Contact Info) Description 10/17/2024 Telephone [facility] 230 [place], [place] [phone] Cheryl Larkin, RN 230 [place], [place] [phone] Sent to ED from Office Social History [...] t he electric, gas, oil or water [employer] threatened to shut off services in your [...] 10/17/2024 9:52 AM EDT Pt walked into [facility] lobby. Has HDF booked for later this afternoon but is sobbing and statingthat she is in pain. This RN brought pt to a private exam room for triage. Pt was at [facility] 10/13-10/14 and at [facility] ED 10/16 for kidney stones. Pt [...] and vitals. Pt wants to go to [facility], they agreed to bring her there. documented in this encounter Plan of Treatment Upcoming Encounters Date Type Department Care Team (Late Contact Info) Description 11/12/2024 1:30 PM EDT Office Visit [facility] [address] [place], [place] [phone] Amber Quiroz MD 230 [place] [address] documented as of this encounter Visit Diagnoses Not on filedocumented in this encounter Care Teams Fire Support Specialist Relationship Specialty Start Date End Date Amber Quiroz MD [address] [place] [address] [phone] PCP - General Family Medicine 07/03/18 documented as of this encounter
--- OUTSIDE RECORDS SUMMARY | 2024-10-19 04:43 | XMS_ITS | Encounter Summary ---
Author Organization [email or web address] Address [address] [facility] 7 [place] [address] Care Team Providers Care Warehouse Receiver Name Role Phone Amber Quiorz MD Primary Care Provider [phone] Reason for Visit * Reason Comments Med Refill Encounter Details Date Type Department Care Team ([facility] st Contact Info) Description 11/29/2023 Refill [facility] 230 [place], [place] [phone] Charleen Latif MD 230 [place], [place] [phone] Nephrolithiasis Social History Tobacco Use Types Packs/Day [...] t he electric, gas, oil or water [employer] threatened to shut off services in your [...] Visit [facility]INE 230 [place] [phone] Amber Quiroz MD [address] [place] [phone] documented as of this encounter Visit Diagnoses Diagnosis Nephrolithiasis Calculus of kidney documented in this encounter Care Teams Warehouse Receiver Relationship Specialty Start Date End Date Amber Quiroz MD [address] [place] [phone] PCP - General Family Medicine 07/03/18 documented as of this encounter
--- OUTSIDE RECORDS SUMMARY | 2024-10-19 04:43 | XMS_ITS | Encounter Summary ---
Author Organization [employer] [facility] Address [address] [facility] 7t [place] [address] Care Team Providers Care Supervisor Rough End Name Role Phone Amber Quiroz MD Primary Care Provider [phone] Reason for Visit * Reason Comments Med Refill Encounter Details Date Type Department Care Team (Late st Contact Info) Description 04/26/2023 Refill [facility] [address] [place] [phone] Alan Partida MD [address] [place] [phone] Moderate persistent asthma without complication; Nausea Social [...] Description 11/12/2024 1:30 PM EDT Office Visit [facility] [address] [place] [phone] Amber Quiroz MD [address] [place] [phone] documented as of this encounter Visit Diagnoses Diagnosis Moderate persistent asthma without complication Nausea Nausea alone documented in this encounter Care Teams Supervisor Rough End Relationship Specialty Start Date End Date Amber Quiroz MD 230 [place] [address] PCP - General Family Medicine 07/03/18 documented as of this encounter
--- OUTSIDE RECORDS SUMMARY | 2024-10-19 04:43 | XMS_ITS | Encounter Summary ---
Author Organization [employer] Address [address] [facility] 7t [place] [address] Care Team Providers Care Policy Change Clerk Name Role Phone Amber Quiroz MD Primary Care Provider [phone] Encounter Details Date Type Department Care Team (Late st Contact Info) Description 04/05/2023 Orders Only [facility] [address] [place] [address] Anabell Martinez LPN Social History Tobacco Use [...] Description 11/12/2024 1:30 PM EDT Office Visit [facility] 230 [place] [address] Amber Quiroz MD 230 [place], [place] [phone] documented as of this encounter Visit Diagnoses Not on filedocumented in this encounter Care Teams Policy Change Clerk Relationship Specialty Start Date End Date Amber Quiroz MD 230 [place], [place] [phone] PCP - General Family Medicine 07/03/18 documented as of this encounter
--- OUTSIDE RECORDS SUMMARY | 2024-10-19 04:43 | XMS_ITS | Encounter Summary ---
Author Organization [employer] Address [address] [facility] 7t [place] [address] Care Team Providers Care Hospital Television Rental Clerk Name Role Phone Amber Quiroz MD Primary Care Provider [phone] Reason for Visit * Reason Onset Date Comments Chart Prep 10/16/2024 Encounter Details Date Type Department Care Team ([facility] st Contact Info) Description 10/16/2024 Telephone [facility] 230 [place], [place] [phone] Amber Quiroz MD 230 [place], [place] [phone] Chart Prep Social History Tobacco Use Types [...] t he electric, gas, oil or water [employer] threatened to shut off services in your [...] Description 11/12/2024 1:30 PM EDT Office Visit [facility] 230 [place] [address] Amber Quiroz MD 230 [place] [phone] documented as of this encounter Visit Diagnoses Not on filedocumented in this encounter Care Teams Hospital Television Rental Clerk Relationship Specialty Start Date End Date Amber Quiroz MD 230 [place] [address] PCP - General Family Medicine 07/03/18 documented as of this encounter
[2024-10-19 04:49] VITALS: BP 114/61; PULSE 65; RESP 17; TEMP 36.9; O2SAT 95
== END 2024-10-19 04:51 | disposition home or self-care (01) ==
LOC: HO.ED 04:40
PROVIDERS: Physician Assistant; Emergency Provider Emergency Medicine
DX: R10.12 Left upper quadrant pain (principal); R10.9 Unspecified abdominal pain; N39.0 Urinary tract infection, site not specified; D64.9 Anemia, unspecified; I10 Essential (primary) hypertension; Z79.899 Other long term (current) drug therapy
CPT/HCPCS: 36415; 80053; 81001; 83690; 85025; 87086; 99283; 99284

== ENCOUNTER 2024-11-02 12:48 | Emergency (ER) | payer MEDICAID, SELFPAY ==
[2024-11-02] VITALS (7 sets, daily range): BP systolic 117–153; BP diastolic 60–84; PULSE 61–104; RESP 18; TEMP 36.9; O2SAT 95–98
--- NOTE | ~2024-11-02 | CT_ITS ---
CLINICAL HISTORY: left flank pain CT abdomen and pelvis without contrast Comparison: CT/SR - CT ABDOMEN PELVIS WO IV CON - 10/09/24 02:42 EDT Findings: No consolidation or effusion. 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 Multiple tiny nonobstructive calculi within the bilateral kidneys. No ureteral calculus or hydronephrosis. Unremarkable liver, spleen, pancreas and adrenal glands. No calcified gallstones. No bowel obstruction, pneumoperitoneum, or pneumatosis. Pelvic contents unremarkable. Normal appendix. The bones are intact. IMPRESSION: 1. There are multiple tiny nonobstructive calculi within the bilateral kidneys. 2. 1.5 cm angiomyolipoma within the right upper kidney. This document has been electronically signed by: Xuan Paredes MD on 11/02/2024 14:39:55
--- NOTE | 2024-11-02 13:00 | ED.GENADULT ---
HPI - General Adult General Chief complaint: General Medical Stated complaint: FLANK PAIN,BLOODY URINE PER EMS Time Seen by Provider: 11/02/24 12:49 Source: patient Mode of arrival: EMS Limitations: no limitations History of Present Illness HPI narrative: This is a 58 years old the patient presented to emergency department via ambulance with a chief complaint of left flank pain hematuria pain and nausea. Denies any fever or chills Onset (ago): day(s) (3) Radiation: non-radiation Severity: moderate Quality: aching Pain Consistency: constant Relieving factors: none Exacerbating factors: none Associated symptoms: denies other symptoms Related Data Home Medications ?Medication ?Instructions ?Recorded ?Confirmed albuterol sulfate 90 mcg/actuation 2 puff PO Q4-6H PRN dyspnea 11/26/20 11/26/20 aerosol inhaler (ProAir HFA) amlodipine 10 mg tablet 1 tab PO DAILY 11/26/20 11/26/20 ascorbic acid (vitamin C) 250 mg 1 tab PO BID 11/26/20 11/26/20 tablet atorvastatin 10 mg tablet 1 tab PO DAILY 11/26/20 11/26/20 clonidine HCl 0.2 mg tablet 1 tab PO BID PRN panic attack 11/26/20 11/26/20 cyanocobalamin (vitamin B-12) 500 1 tab PO DAILY 11/26/20 11/26/20 mcg tablet docusate sodium 100 mg capsule 1 - 2 cap PO BEDTIME PRN 11/26/20 11/26/20 constipation fluoxetine 20 mg capsule 3 cap PO QAM 11/26/20 11/26/20 gabapentin 100 mg capsule 1 cap PO TID PRN anxiety 11/26/20 11/26/20 gabapentin 400 mg capsule 1 cap PO BEDTIME 11/26/20 11/26/20 loratadine 10 mg tablet 1 tab PO DAILY 11/26/20 11/26/20 loratadine 10 mg tablet 1 tab PO DAILY 11/26/20 11/26/20 mirtazapine 30 mg tablet 1 tab PO BEDTIME 11/26/20 11/26/20 mirtazapine 30 mg tablet 1 tab PO BEDTIME 11/26/20 11/26/20 ondansetron HCl 4 mg tablet 1 tab PO Q8H PRN nausea 11/26/20 11/26/20 polyvinyl alcohol 1.4 % eye drops 1 drp ophthalmic (eye) TID 11/26/20 11/26/20 (Artificial Tears (polyvinyl alcohol)) quetiapine 25 mg tablet 1 tab PO BID PRN anxiety 11/26/20 11/26/20 topiramate 25 mg tablet 1 tab PO BID 11/26/20 11/26/20 zolpidem 10 mg tablet 1 tab PO BEDTIME PRN insomnia 11/26/20 11/26/20 Previous Rx's ?Medication ?Instructions ?Recorded tramadol 50 mg tablet 50 mg PO Q8H PRN pain #3 tabs 11/26/20 nitrofurantoin 100 mg PO BID #14 caps 05/26/21 monohydrate/macrocrystals 100 mg capsule (Macrobid) phenazopyridine 100 mg tablet 100 mg PO TID PRN pain 6 doses #6 05/26/21 (Pyridium) tabs cefuroxime axetil 250 mg tablet 250 mg PO BID 7 days #14 tabs 07/15/21 morphine 15 mg immediate release 15 mg PO BID PRN pain #8 tabs 07/15/21 tablet docusate sodium 100 mg capsule 100 mg PO BID #20 caps 07/21/21 (Colace) sennosides 8.6 mg tablet (senna) 8.6 mg PO BEDTIME #14 tabs 07/21/21 docusate sodium 100 mg capsule 100 mg PO BID PRN Constipation #14 11/23/21 (Colace) caps nitrofurantoin 100 mg PO BID uti 7 days #14 caps 11/23/21 monohydrate/macrocrystals 100 mg capsule (Macrobid) ondansetron 4 mg disintegrating 4 mg PO Q6H nausea/vomiting #14 11/23/21 tablet tabs cephalexin 500 mg capsule 500 mg PO Q8H 7 days #21 caps 08/02/22 ondansetron 4 mg disintegrating 4 mg PO Q8H PRN nausea and 03/02/23 tablet vomiting #10 tabs phenazopyridine 200 mg tablet 200 mg PO TID PRN pain 6 doses #6 03/02/23 (Pyridium) tabs acetaminophen 325 mg capsule 650 mg (2 x 325 mg) PO Q6H PRN 04/01/24 (Tylenol) pain #30 caps cefdinir 300 mg capsule 300 mg PO BID 5 days #10 caps 04/01/24 cephalexin 500 mg capsule 500 mg PO BID #14 caps 07/15/24 ondansetron HCl 4 mg tablet 4 mg PO Q8H PRN nausea and 07/15/24 vomiting #10 tabs oxycodone 5 mg tablet 5 mg PO Q6H PRN pain, moderate #10 07/15/24 tabs tamsulosin 0.4 mg capsule (Flomax) 0.4 mg PO DAILY #6 caps 07/15/24 dicyclomine 10 mg capsule 10 mg PO BID #14 caps 08/14/24 ondansetron 4 mg disintegrating 4 mg PO Q8H PRN nausea and 08/14/24 tablet vomiting #10 tabs cefuroxime axetil 250 mg tablet 250 mg PO BID 7 days #14 tabs 10/17/24 ondansetron 4 mg disintegrating 4 mg PO Q8H PRN nausea and 10/17/24 tablet vomiting #7 tabs oxycodone 5 mg tablet 5 mg PO Q8H PRN severe pain (scale 10/17/24 score 7-10) #9 tabs tamsulosin 0.4 mg capsule (Flomax) 0.4 mg PO BEDTIME #14 caps 10/17/24 Allergies Allergy/AdvReac Type Severity Reaction Status Date / Time aspirin [ASA] Allergy Intermediate RASH, Verified 11/02/24 12:59 nausea and vomiting ibuprofen [IBUPROFEN] Allergy Intermediate RASH Verified 11/02/24 12:59 nicotine Allergy Intermediate RASH FROM Verified 11/02/24 12:59 NICOTINE PATCH, nausea and vomiting ketorolac [From TORADOL] Allergy Mild RAPID HR Verified 11/02/24 12:59 AND HIVES haloperidol [From Haldol] Allergy Anaphylaxis Verified 11/02/24 12:59 metoclopramide [From Reglan] Allergy Unknown Verified 11/02/24 12:59 Review of Systems Constitutional: Constitutional: Reports no additional constitutional complaints Cardiovascular: Cardiovascular: Reports no additional cardiovascular complaints PMFSH Past Medical History Attestation statement: The following information was validated with the patient. Medical History delivery delivered HTN (hypertension) Anemia Hypercholesteremia DVT (deep venous thrombosis) Kidney stones Surgical History Total knee replacement status Social History Social History Unable to assess alcohol history related to: Unknown Alcohol intake: never Patient Tobacco Use Status: Current everyday Tobacco user Smoked in Last 30 Days: No Use of substances other than those prescribed or required for medical reasons: No Substance Use Type: Prescription Drugs Advance Directives: No Advance Directives Information Provided: No Do you have a plan to hurt others: No Plan Patient : No Physical Exam ED Vital Signs: Vital Signs - 24 hr 11/02/24 12:57 11/02/24 13:31 11/02/24 14:00 Temperature 98.5 F Pulse Rate 67 104 H Respiratory Rate 18 18 18 Blood Pressure 117/60 153/84 H Pulse Oximetry 98 97 Oxygen Delivery Method Room Air Room Air 11/02/24 14:17 11/02/24 14:18 Temperature Pulse Rate 67 Respiratory Rate 18 18 Blood Pressure 120/63 Pulse Oximetry Oxygen Delivery Method BMI result Body Mass Index 30.0 No acute distress comfortable in the stretcher Const General: cooperative Nutritional Appearance: well nourished Orientation/consciousness: patient oriented x3 Limitations: no limitations HENMT Head: Yes normal to inspection General nose exam: Normal external nose present Mouth: Normal oral and palatal mucosa present Neck Neck: Yes normal visual inspection, Yes full ROM and Yes no lymphadenopathy Chest Chest palpation & inspection: normal inspection of the chest Resp Effort & Inspection: normal respiratory effort Auscultation: clear to auscultation bilaterally Cardio Jugular venous distension: no JVD Rate: regular rate Rhythm: regular rhythm GI Inspection: Yes normal to inspection Palpation (GI): Soft to palpation, not firm, nontender and no guarding Skin General skin exam: no rashes or lesions noted, elasticity normal and turgor normal Rashes: no rashes Neuro General: patient oriented x3 Cranial nerves: Yes CN's II-XII intact bilaterally Course Reevaluation(s) Reevaluation #1: On re-examination the patient is asymptomatic workup is essentially negative CT scan shows no ureteral stone no hydronephrosis UA shows no evidence of infection at this point I think the patient can be safely discharged home Time: 15:14 Medications Administered Discontinued Medications Generic Name Dose Route Start Last Admin Trade Name Freq PRN Reason Stop Dose Admin Sodium Chloride 1,000 mls @ 999 mls/hr 11/02/24 13:00 11/02/24 14:32 Ns IVCONT 11/02/24 14:00 Infused .Q1H1M ADELA Infusion Morphine Sulfate 4 mg 11/02/24 12:59 11/02/24 13:31 Morphine Sulfate 4 Mg/Ml Cartridge IVPUSH 11/02/24 13:00 4 mg ONCE ONE Administration Protocol Morphine Sulfate 4 mg 11/02/24 14:10 11/02/24 14:18 Morphine Sulfate 4 Mg/Ml Cartridge IVPUSH 11/02/24 14:11 4 mg ONCE ONE Administration Protocol Ondansetron HCl 4 mg 11/02/24 12:59 11/02/24 13:31 Ondansetron Hcl 4 Mg/2 Ml Vial IVPUSH 11/02/24 13:00 4 mg ONCE ONE Administration Medical Decision Making Medical Decision Making [facility] Narrative: Patient is here complaining of left flank pain hematuria working diagnosis renal colic we will do UA CT and reassess 15:18 CT scan shows no hydronephrosis no ureteral stone she does have hematuria in the urine, we will discharge the patient home follow-up with the urologist Differential Diagnosis Differential Diagnoses: The differential diagnosis associated with the presentation includes Differential diagnosis pyelonephritis/renal colic/musculoskeletal pain Admission/Observation Consideration of admission/observation: Escalation of care including admission/observation considered Lab Data [facility] Lab Attestation statement: I reviewed the patient's lab results. 11/02/24 13:21 11/02/24 13:21 Labs: Lab Results 11/02/24 11/02/24 Range/Units 13:21 14:17 WBC 5.5 (4.8-10.8) X10*3/uL RBC 3.79 L (4.20-5.50) X10*6/uL Hgb 10.4 L (12.0-16.0) g/dl Hct 31.6 L (37.0-47.0) % MCV 83.4 (80.0-98.0) fL MCH 27.4 (27.0-33.0) pg MCHC 32.9 (31.0-35.0) g/dl RDW 15.2 (11.0-16.0) % Plt Count 265 (160-400) X10*3/uL MPV 9.5 (9.4-12.3) fL Immature Gran % (Auto) 0.4 (0.0-0.4) % Neut % (Auto) 61.7 (45-73) % Lymph % (Auto) 30.0 (20-40) % [place] % (Auto) 6.1 (2-11) % Eos % (Auto) 1.4 (0-4) % Baso % (Auto) 0.4 (0-2) % Lymph # (Auto) 1.7 (1.2-4.9) X10*3/uL [place] # (Auto) 0.3 (0.1-1.2) X10*3/uL Eos # (Auto) 0.1 (0.0-0.4) X10*3/uL Baso # (Auto) 0.0 (0.0-0.2) X10*3/uL Abs Immat Gran (auto) 0.02 (0.00-0.03) X10*3/uL Absolute Neuts (auto) 3.4 (2.0-8.3) x10*3/uL Absolute Nucleated RBC 0.000 (0.0-0.012) X10*3/uL Nucleated RBC % (auto) 0.0 (0.0-0.2) /100WBC Sodium 145 (135-145) mmol/L Potassium 3.7 (3.3-5.1) mmol/L Chloride 115 H (96-108) mmol/L Carbon Dioxide 23 (22-29) mmol/L Anion Gap 11 L (12-20) BUN 16 (9-16) mg/dL Creatinine 0.61 (0.5-1.4) mg/dL Estim Creat Clear Calc 104.9 Estimated GFR > 60 Random Glucose 111 (60-115) mg/dL Calcium 8.7 (8.4-10.2) mg/dL Total Bilirubin 0.2 (0.0-1.0) mg/dL AST 29 (5-31) U/L ALT 27 (0-31) U/L Alkaline Phosphatase 91 (39-117) U/L Total Protein 6.5 (6.5-8.0) g/dL Albumin 3.9 (3.5-5.0) g/dL Urine Color Yellow Urine Appearance Clear Urine pH 5.0 (5.0-9.0) Ur Specific [place] 1.015 (1.005-1.025) Urine Protein 100 (2+) H (Neg-Trace) mg/dL Urine Glucose (UA) >=1000 H (Negative) mg/dL Urine Ketones Negative (Negative) mg/dL Urine Blood Large (3+) H (Negative) Urine Nitrite Negative (Negative) Ur Leukocyte Esterase Trace H (Negative) Urine RBC >20 H (0-2) /HPF Urine WBC 0-5 (0-5) /HPF Ur Squamous Epith Cells 0-2 (0-2) /HPF Urine Bacteria None Seen (None Seen) Hyaline Casts 0-2 (0-2) /LPF Independent Interpretation Interpretation: No hydronephrosis Radiology Impression Discussion of test interpretation with radiology: I have reviewed the radiologist's reading. Radiologist Impression: No hydronephrosis no ureteral stone External Record Review External record reviewed: Inpatient record Discharge Plan Discharge Clinical Impression: Acute left flank pain Hematuria Qualifiers: Hematuria type: unspecified type Qualified Code(s): R31.9 - Hematuria, unspecified Patient Disposition: Home, Self-Care Instructions: Hematuria (ED), Flank Pain (ED) Additional Instructions: Follow-up with the urologist, blood in the urine is to be followed up Prescriptions: No Action quetiapine 25 mg tablet 1 tab PO BID PRN (Reason: anxiety) atorvastatin 10 mg tablet 1 tab PO DAILY polyvinyl alcohol [Artificial Tears (polyvin alc)] 1.4 % drops 1 drp ophthalmic (eye) TID ondansetron HCl 4 mg tablet 1 tab PO Q8H PRN (Reason: nausea) gabapentin 400 mg capsule 1 cap PO BEDTIME topiramate 25 mg tablet 1 tab PO BID clonidine HCl 0.2 mg tablet 1 tab PO BID PRN (Reason: panic attack) cyanocobalamin (vitamin B-12) 500 mcg tablet 1 tab PO DAILY ascorbic acid (vitamin C) 250 mg tablet 1 tab PO BID amlodipine 10 mg tablet 1 tab PO DAILY mirtazapine 30 mg tablet 1 tab PO BEDTIME mirtazapine 30 mg tablet 1 tab PO BEDTIME docusate sodium 100 mg capsule 1 - 2 cap PO BEDTIME PRN (Reason: constipation) gabapentin 100 mg capsule 1 cap PO TID PRN (Reason: anxiety) zolpidem 10 mg tablet 1 tab PO BEDTIME PRN (Reason: insomnia) albuterol sulfate [ProAir HFA] 90 mcg/actuation HFA aerosol inhaler 2 puff PO Q4-6H PRN (Reason: dyspnea) fluoxetine 20 mg capsule 3 cap PO QAM loratadine 10 mg tablet 1 tab PO DAILY loratadine 10 mg tablet 1 tab PO DAILY tramadol 50 mg tablet 50 mg PO Q8H PRN (Reason: pain) Qty: 3 0RF morphine 15 mg tablet 15 mg PO BID PRN (Reason: pain) Qty: 8 0RF cefuroxime axetil 250 mg tablet 250 mg PO BID 7 Days Qty: 14 0RF nitrofurantoin monohyd/m-cryst [Macrobid] 100 mg capsule 100 mg PO BID Qty: 14 0RF Rx Instructions: must administer with a meal/food phenazopyridine [Pyridium] 100 mg tablet 100 mg PO TID PRN (Reason: pain) Qty: 6 0RF sennosides [senna] 8.6 mg tablet 8.6 mg PO BEDTIME Qty: 14 0RF docusate sodium [Colace] 100 mg capsule 100 mg PO BID Qty: 20 0RF docusate sodium [Colace] 100 mg capsule 100 mg PO BID PRN (Reason: Constipation) Qty: 14 0RF ondansetron 4 mg tablet,disintegrating 4 mg PO Q6H Qty: 14 0RF nitrofurantoin monohyd/m-cryst [Macrobid] 100 mg capsule 100 mg PO BID 7 Days Qty: 14 0RF Rx Instructions: must administer with a meal/food cephalexin 500 mg capsule 500 mg PO Q8H 7 Days Qty: 21 0RF phenazopyridine [Pyridium] 200 mg tablet 200 mg PO TID PRN (Reason: pain) Qty: 6 0RF ondansetron 4 mg tablet,disintegrating 4 mg PO Q8H PRN (Reason: nausea and vomiting) Qty: 10 0RF cephalexin 500 mg capsule 500 mg PO BID Qty: 14 0RF ondansetron HCl 4 mg tablet 4 mg PO Q8H PRN (Reason: nausea and vomiting) Qty: 10 0RF tamsulosin [Flomax] 0.4 mg capsule 0.4 mg PO DAILY Qty: 6 0RF oxycodone 5 mg tablet 5 mg PO Q6H PRN (Reason: pain, moderate) Qty: 10 0RF Rx Instructions: Partial Fill upon patient request. ondansetron 4 mg tablet,disintegrating 4 mg PO Q8H PRN (Reason: nausea and vomiting) Qty: 10 0RF dicyclomine 10 mg capsule 10 mg PO BID Qty: 14 0RF cefuroxime axetil 250 mg tablet 250 mg PO BID 7 Days Qty: 14 0RF ondansetron 4 mg tablet,disintegrating 4 mg PO Q8H PRN (Reason: nausea and vomiting) Qty: 7 0RF tamsulosin [Flomax] 0.4 mg capsule 0.4 mg PO BEDTIME Qty: 14 0RF oxycodone 5 mg tablet 5 mg PO Q8H PRN (Reason: severe pain (scale score 7-10)) Qty: 9 0RF Rx Instructions: Partial Fill upon patient request. cefdinir 300 mg capsule 300 mg PO BID 5 Days Qty: 10 0RF acetaminophen [Tylenol] 325 mg capsule 650 mg PO Q6H PRN (Reason: pain) Qty: 30 0RF Referrals: Jim Wing MD [Physician] - 3 days Print Language: Bruneian
--- OUTSIDE RECORDS SUMMARY | 2024-11-02 13:19 | XMS_ITS | Encounter Summary ---
Author Organization [employer] [facility] Address [address] [facility] [address] [place] [address] Care Team Providers Care Shot Polisher And Inspector Name Role Phone Amber Quiroz MD Primary Care Provider [phone] Encounter Details Date Type Department Care Team (Late st Contact Info) Description 11/16/2022 Abstract [facility] [address] [place] [address] [phone] Amber Quiroz MD [address] [place] [address] [phone] Social History Tobacco Use Types Packs/Day Years [...] Description 11/12/2024 1:30 PM EDT Office Visit [facility] [address] [place] [address] [phone] Amber Quiroz MD [address] [place], [place] [phone] documented as of this encounter Visit Diagnoses Not on filedocumented in this encounter Care Teams Shot Polisher And Inspector Relationship Specialty Start Date End Date Amber Quiroz MD [address] [place] [address], [place] [address] PCP - General Family Medicine 07/03/18 documented as of this encounter
--- OUTSIDE RECORDS SUMMARY | 2024-11-02 13:19 | XMS_ITS | Encounter Summary ---
Author Organization [employer] Address 75 [facility] 7t [place] [address] Care Team Providers Care Automobile Leasing Supervisor Name Role Phone Amber Quiroz MD Primary Care Provider [phone] Reason for Visit * Reason Onset Date Comments Med Refill 10/30/2024 Encounter Details Date Type Department Care Team ([facility] st Contact Info) Description 10/30/2024 Telephone [facility] MEDICINE [address] [place], [place] [phone] Amber Quiroz MD 230 [place], [place] [phone] Med Refill Social History Tobacco Use Types [...] encounter Miscellaneous Notes * Telephone Encounter - Rhona Iyer - 10/30/2024 9:12 AM EDT Pt walked in requesting refill on tramadol due to pain getting worse . documented in this encounter Plan of Treatment Upcoming Encounters Date Type Department Care Team (Late st Contact Info) Description 11/12/2024 1:30 PM EDT Office Visit [facility] MEDICINE [address] [place] [address] Amber Quiroz MD 230 [place] [address] documented as of this encounter Visit Diagnoses Not on filedocumented in this encounter Care Teams Automobile Leasing Supervisor Relationship Specialty Start Date End Date Amber Quiroz MD 230 [place] [address] PCP - General Family Medicine 07/03/18 documented as of this encounter
--- OUTSIDE RECORDS SUMMARY | 2024-11-02 13:19 | XMS_ITS | Encounter Summary ---
Author Organization [employer] Address [address] [facility] [address] 7t [place] [address] Care Team Providers Care Internal Sales Name Role Phone Amber Quiroz MD Primary Care Provider [phone] Encounter Details Date Type Department Care Team ([facility] st Contact Info) Description 11/24/2023 Telephone [facility] MEDICINE 230 [place], [place] [phone] Amber Quiroz MD 230 [place], [place] [phone] Social History Tobacco Use Types Packs/Day Years [...] Description 11/12/2024 1:30 PM EDT Office Visit [facility] MEDICINE [address] [place] [address] Amber Quiroz MD 230 [place] [address] documented as of this encounter Visit Diagnoses Not on filedocumented in this encounter Care Teams Internal Sales Relationship Specialty Start Date End Date Amber Quiroz MD 230 [place] [address] PCP - General Family Medicine 07/03/18 documented as of this encounter
--- OUTSIDE RECORDS SUMMARY | 2024-11-02 13:19 | XMS_ITS | Encounter Summary ---
Author Organization [employer] Address 75 [facility] 7 [place] [address] Care Team Providers Care Senior Marketing Specialist Name Role Phone Amber Quiroz MD Primary Care Provider [phone] Reason for Visit * Reason Comments Med Refill Encounter Details Date Type Department Care Team ([facility] st Contact Info) Description 10/30/2024 Refill [facility] MEDICINE 230 [place], [place] [phone] Charleen Latif MD 230 [place], [place] [phone] Nausea; Moderate persistent asthma without complication Social History [...] Office Visit [facility] MEDICINE 230 [place], [place] [phone] Amber Quiroz MD 230 [place] [address] documented as of this encounter Visit Diagnoses Diagnosis Nausea Nausea alone Moderate persistent asthma without complication documented in this encounter Care Teams Senior Marketing Specialist Relationship Specialty Start Date End Date Amber Quiroz MD 230 [place], [place] [phone] PCP - General Family Medicine 07/03/18 documented as of this encounter
--- OUTSIDE RECORDS SUMMARY | 2024-11-02 13:19 | XMS_ITS | Encounter Summary ---
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); White without pressure of peripheral retina of both eyes; Hyperopia of both eyes Social History Tobacco Use Types Packs/Day Years [...] Description 11/12/2024 1:30 PM EDT Office Visit [facility] MEDICINE 230 [place] [address] Amber Quiroz MD 230 [place] [address] documented as of this encounter Visit Diagnoses Diagnosis Anatomical narrow angle of both eyes- Primary White without pressure of peripheral retina of both eyes Other retinal disorders Hyperopia of both eyes documented in this encounter Care Teams Tow Operator Relationship Specialty Start Date End Date Amber Quiroz MD [address] [place] [phone] PCP - General Family Medicine 07/03/18 documented as of this encounter
--- OUTSIDE RECORDS SUMMARY | 2024-11-02 13:19 | XMS_ITS | Encounter Summary ---
Author Organization [employer] [facility] Address 75 [facility] 7t [place] [address] Care Team Providers Care Plant Packer Name Role Phone Amber Quiroz MD Primary Care Provider Reason for Visit * Reason Comments Med Refill Encounter Details Date Type Department Care Team (Late st Contact Info) Description 04/26/2023 Refill [facility] MEDICINE [address] [place] [phone] Alan Partida MD [address] [place] [phone] Moderate persistent asthma without complication; Nausea Social [...] 1:30 PM EDT Office Visit [facility] MEDICINE [address] [place] [address] [phone] Amber Quiroz MD [address] [place] [address] documented as of this encounter Visit Diagnoses Diagnosis Moderate persistent asthma without complication Nausea Nausea alone documented in this encounter Care Teams Plant Packer Relationship Specialty Start Date End Date Amber Quiroz MD 230 [place] [address] PCP - General Family Medicine 07/03/18 documented as of this encounter
--- OUTSIDE RECORDS SUMMARY | 2024-11-02 13:19 | XMS_ITS | Encounter Summary ---
Author Organization [employer] Address 75 [facility] 7t [place] [address] Care Team Providers Care Loom Control Chain Builder Name Role Phone Amber Quiroz MD Primary Care Provider [phone] Reason for Visit * Reason Comments Med Refill Encounter Details Date Type Department Care Team ([facility] st Contact Info) Description 06/01/2023 Refill [facility] MEDICINE 230 [place], [place] [phone] Amber Quiroz MD 230 [place], [place] [phone] Pain Social History Tobacco Use Types Packs/Day [...] the past 12 months, has t he [employer], oil or water company threatened to shut [...] Description 11/12/2024 1:30 PM EDT Office Visit [facility] MEDICINE 230 [place] [address] Amber Quiroz MD 230 [place] [address] documented as of this encounter Visit Diagnoses Diagnosis Pain Generalized pain documented in this encounter Care Teams Loom Control Chain Builder Relationship Specialty Start Date End Date Amber Quiroz MD 230 [place] [address] PCP - General Family Medicine 07/03/18 documented as of this encounter
--- OUTSIDE RECORDS SUMMARY | 2024-11-02 13:19 | XMS_ITS | Encounter Summary ---
Author Organization [employer] Address 75 [facility] 7t [place] [address] Care Team Providers Care Regional Climate Change Analyst Name Role Phone Amber Quiroz MD Primary Care Provider [phone] Reason for Visit * Reason Comments Med Refill Encounter Details Date Type Department Care Team ([facility] st Contact Info) Description 10/30/2024 Refill [facility] MEDICINE 230 [place], [place] [phone] Amber Quiroz MD 230 [place], [place] [phone] Moderate persistent asthma without complication Social History [...] t he electric, gas, oil or water [employer] threatened to shut off services in your [...] Description 11/12/2024 1:30 PM EDT Office Visit [facility] MEDICINE [address] [place] [address] [phone] Amber Quiroz MD [address] [place] [address] documented as of this encounter Visit Diagnoses Diagnosis Moderate persistent asthma without complication documented in this encounter Care Teams Regional Climate Change Analyst Relationship Specialty Start Date End Date Amber Quiroz MD [address] [place] [address] PCP - General Family Medicine 07/03/18 documented as of this encounter
--- OUTSIDE RECORDS SUMMARY | 2024-11-02 13:19 | XMS_ITS | Encounter Summary ---
Author Organization [email or web address] Address [address] [facility] [address] 7t [place] [address] Care Team Providers Care Chief Power Dispatcher Name Role Phone Amber Quiroz MD Primary Care Provider [phone] Reason for Visit * Reason Comments Med Refill Encounter Details Date Type Department Care Team ([facility] st Contact Info) Description 10/30/2024 Refill [facility]EDS [address] [place], [place] [phone] Dilcia Henry, ANP 230 [place] [address] Nephrolithiasis Social History Tobacco Use Types Packs/Day [...] t he electric, gas, oil or water [employer] threatened to shut off services in your [...] Telephone Encounter - Rachelle Lucero RN - 10/30/2024 4:26 PM EDT I tried calling pt with no answer. It does state on Rx Tramadol Q 8 hr, so maybe pt was not aware that 15 tab was to be per month? * Telephone Encounter - Rachelle Lucero RN - 10/30/2024 11:49 AM EDT TC back to pt, no answer. Refill request of Tramadol queued to PCP. documented in this encounter Plan of Treatment Upcoming Encounters Date Type Department Care Team (Late st Contact Info) Description 11/12/2024 1:30 PM EDT Office Visit [facility] MEDICINE [address] [place] [address] Amber Quiroz MD 230 [place] [address] documented as of this encounter Visit Diagnoses Diagnosis Nephrolithiasis Calculus of kidney documented in this encounter Care Teams Chief Power Dispatcher Relationship Specialty Start Date End Date Amber Quiroz MD [address] [place] [address] PCP - General Family Medicine 07/03/18 documented as of this encounter
--- OUTSIDE RECORDS SUMMARY | 2024-11-02 13:19 | XMS_ITS | Encounter Summary ---
Author Organization [employer] Address [address] [facility] 7t [place] [address] Care Team Providers Care Thread Machine Operator Name Role Phone Amber Quiroz MD Primary Care Provider [phone] Encounter Details Date Type Department Care Team (Late st Contact Info) Description 07/28/2022 Orders Only [facility] MEDICINE [address] [place] [phone] Anabell Martinez LPN Social History Tobacco Use [...] Description 11/12/2024 1:30 PM EDT Office Visit [facility] MEDICINE [address] [place] [phone] Amber Quiroz MD [address] [place] [address] [phone] documented as of this encounter Procedures Procedure [...] (08/02/2022 12:29 AM EST) Color Urine Yellow [facility] Appearance Urine Turbid [facility] PH 6.5 5.0 - 9.0 [facility] Glucose Urine UA Negative Negative mg/dL [facility] Urine Blood Trace(A) Negative [facility] Specific [employer] - Urine 1.020 1.005 - 1.025 [facility] Urine Protein 30 (1+)(A) Neg-Trace mg/dL [facility] Urine Ketones Negative Negative mg/dL [facility] Nitrite Urine Negative Negative [facility] Leukocyte Esterase Urine Large (3+)(A) Negative [facility] RBC Urine 0-2 0 - 2 /HPF [facility] Urine WBC >50(A) 0 - 5 /HPF [facility] Urine Squamous Epithelial Cell 6-10 0 - 2 /HPF [facility] Urine Bacteria 1+ None Seen [facility] Hyaline Casts, Urine 3-5 0 - 2 /LPF [facility] 08/02/2022 12:2 9 AM EST 08/02/2022 12:31 AM EST Narrative [facility] - 08/02/2022 12:50 AM EST Urine, Clean Catch us [facility] External Provider LAB URI NE ORDERABLES Final Result [facility] [address] [place] [phone] * SARS-CoV-2 RNA, Influenza A/B, and RSV RNA, Ql NAAT (08/02/2022 12:17 AM EST) Influenza A PCR NEGATIVE Negative [facility] Influenza B PCR NEGATIVE Negative [facility] Resp Syncy Virus RNA Qual PCR NEGATIVE Negative [facility] SARS COV2 PCR NEGATIVE Negative [facility] SARS/Flu/RSV Note See Note [facility] Comment:All test results mus t be [...] use by authorized laboratories.Testing performed on the [employer] GeneXpert utilizingreal-time RT-PCR.All SARS CoV2 and positive influenza A/B results arereported to [facility]. 08/02/2022 12:1 7 AM EST 08/02/2022 12:19 AM EST [facility] Exter nal Provider LAB MICROBIOLOGY - GENERAL ORDERABLES Final Result [facility] [address] [place] [phone] * (ABNORMAL) Basic Metabolic Panel (08/02/2022 12:17 AM EST) Sodium 140 135 - 145 mmol/L [facility] Potassium 3.9 3.3 - 5.1 mmol/L [facility] Chloride 105 96 - 108 mmol/L [facility] Carbon Dioxide 24 22 - 29 mmol/L [facility] Anion Gap 15 12 - 20 [facility] Urea Nitrogen (BUN) 14 9 - 16 mg/dL [facility] Creatinine, Serum 0.75 0.5 - 1.4 mg/dL [facility] Creatinine Clr Calc Pharmacy 71.4 [facility] Comment:Provided height and weight: 162.56 cm,63.503 kg.eGFR (calculated from the MDRD study equation) and eCrCl(calculated from the Cockcroft-Gault equation) are based ondifferent parameters and may not yield comparable results.If eCrCl result is absurd, please check patient'sheight/weight. Estimated Glomerular Filt Rate >60 [facility] Comment:NOTE: For -Am erican individuals, multiply the result by 1.210.Chronic Kidney Disease: Estimated GFR < 60 mL/min/1.31n2Ubppze Kidney Disease: Estimated GFR < 15 mL/min/1.73m2 Glucose 119(H) 60 - 115 mg/dL [facility] Calcium 9.0 8.4 - 10.2 mg/dL [facility] 08/02/2022 12:1 7 AM EST 08/02/2022 12:19 AM EST [facility] External Provider LAB BLO OD ORDERABLES Final Result [facility] [address] [place] [address] [phone] * (ABNORMAL) CBC auto differential (08/02/2022 12:17 AM EST) White Blood Count 6.4 4.8 - 10.8 X10*3/uL [facility] Red Blood Count 3.96(L) 4.20 - 5.50 X10*6/uL [facility] Hemoglobin 10.8(L) 12.0 - 16.0 g/dl [facility] Hematocrit 33.0(L) 37.0 - 47.0 % [facility] Mean Corpuscular Volume 83.3 80.0 - 98.0 fL [facility] Mean Corpuscular Hemoglobin 27.3 27.0 - 33.0 pg [facility] Mean Corpuscular HGB Conc 32.7 31.0 - 35.0 g/dl [facility] Red Cell Distribution Width 14.2 11.0 - 16.0 % [facility] Platelet Count 202 160 - 400 X10*3/uL [facility] Mean Platelet Volume 9.2(L) 9.4 - 12.3 fL [facility] Neutrophils Percent Auto 68.5 45 - 73 % [facility] Imm Gran Pct Auto 0.2 0.0 - 0.4 % [facility] Lymphocytes Percent Auto 21.9 20 - 40 % [facility] Monocytes Percent Auto 8.6 2 - 11 % [facility] Eosinophils Percent Auto 0.5 0 - 4 % [facility] Basophils Percent Auto 0.3 0 - 2 % [facility] NRBC Pct Auto 0.0 0.0 - 0.2 /100WBC [facility] Neutrophils Absolute Auto 4.4 2.0 - 8.3 x10*3/uL [facility] Imm Gran Abs Auto 0.01 0.00 - 0.03 X10*3/uL [facility] Lymphocytes Absolute Auto 1.4 1.2 - 4.9 X10*3/uL [facility] Monocytes Absolute Auto 0.6 0.1 - 1.2 X10*3/uL [facility] Eosinophils Absolute Auto 0.0 0.0 - 0.4 X10*3/uL [facility] Basophils Absolute Auto 0.0 0.0 - 0.2 X10*3/uL [facility] NRBC Abs Auto 0.000 0.0 - 0.012 X10*3/uL [facility] 08/02/2022 12:1 7 AM EST 08/02/2022 12:19 AM EST us [facility] External Provider LAB BLO OD ORDERABLES Final Result [facility] [address] [place] [address] [phone] * Culture, Urine, Routine (08/02/2022 12:00 AM EST) 08/02/2022 08/02/2022 7:3 1 AM EST Comment:UACC Narrative [facility] - 08/03/2022 9:19 AM EST Urine Culture No growth. Specimen Source: Urine clean catch [facility] Exter nal Provider LAB MICROBIOLOGY - GENERAL ORDERABLES Final Result Performing Organization Address City/State/[facility] Co de Phone Number [facility] [address] [place] [address] [phone] documented in this encounter Visit Diagnoses Not on filedocumented in this encounter Care Teams Thread Machine Operator Relationship Specialty Start Date End Date Amber Quiroz MD [address] [place] [phone] PCP - General Family Medicine 07/03/18 documented as of this encounter
--- OUTSIDE RECORDS SUMMARY | 2024-11-02 13:19 | XMS_ITS | Encounter Summary ---
Author Organization [employer] Address [address] [facility] [address] 7t [place] [address] Care Team Providers Care Charcoal Unloader Name Role Phone Amber Quiroz MD Primary Care Provider [phone] Encounter Details Date Type Department Care Team (Late st Contact Info) Description 12/12/2023 Orders Only [facility] MEDICINE 230 [place], [place] [phone] Amber Quiroz MD 230 [place], [place] [phone] Nephrolithiasis (Primary Dx) Social History Tobacco Use [...] 1:30 PM EDT Office Visit [facility] MEDICINE 230 [place] [address] Amber Quiroz MD 230 [place] [address] documented as of this encounter Visit Diagnoses Diagnosis Nephrolithiasis- Primary Calculus of kidney documented in this encounter Care Teams Charcoal Unloader Relationship Specialty Start Date End Date Amber Quiroz MD [address] [place] [address] PCP - General Family Medicine 07/03/18 documented as of this encounter
--- OUTSIDE RECORDS SUMMARY | 2024-11-02 13:19 | XMS_ITS | Encounter Summary ---
Author Organization [employer] Address 75 [facility] 7 [place] [address] Care Team Providers Care Scuba Dive Training Instructor Name Role Phone Amber Quiroz MD Primary Care Provider [phone] Reason for Visit * Reason Comments Med Refill Encounter Details Date Type Department Care Team ([facility] st Contact Info) Description 11/29/2023 Refill [facility] MEDICINE 230 [place], [place] [phone] Charleen Latif MD 230 [place], [place] [phone] Nephrolithiasis Social History Tobacco Use Types Packs/Day [...] t he electric, gas, oil or water How do you roll? threatened to shut off services in your [...] Description 11/12/2024 1:30 PM EDT Office Visit [facility] MEDICINE 230 [place] [address] Amber Quiroz MD [address] [place] [address] documented as of this encounter Visit Diagnoses Diagnosis Nephrolithiasis Calculus of kidney documented in this encounter Care Teams Scuba Dive Training Instructor Relationship Specialty Start Date End Date Amber Quiroz MD [address] [place] [address] PCP - General Family Medicine 07/03/18 documented as of this encounter
--- OUTSIDE RECORDS SUMMARY | 2024-11-02 13:19 | XMS_ITS | Encounter Summary ---
Author Organization [employer] Address 75 [facility] 7t [place] [address] Care Team Providers Care Chemistry Physics Teacher Name Role Phone Amber Quiroz MD Primary Care Provider [phone] Reason for Visit * Reason Onset Date Comments Med Refill 01/10/2024 Encounter Details Date Type Department Care Team ([facility] st Contact Info) Description 01/10/2024 Telephone [facility] MEDICINE 230 [place], [place] [phone] Amber Quiroz MD 230 [place], [place] [phone] Med Refill Social History Tobacco Use Types [...] immediate release tablet To be sent to: [facility] [place], [place] - [address] [place] [address] documented in this encounter Plan of Treatment Upcoming Encounters Date Type Department Care Team (Late st Contact Info) Description 11/12/2024 1:30 PM EDT Office Visit [facility] MEDICINE [address] [place] [address] Amber Quiroz MD [address] [place] [address] documented as of this encounter Visit Diagnoses Not on filedocumented in this encounter Care Teams Chemistry Physics Teacher Relationship Specialty Start Date End Date Amber Quiroz MD 230 [place] [address] PCP - General Family Medicine 07/03/18 documented as of this encounter
--- OUTSIDE RECORDS SUMMARY | 2024-11-02 13:19 | XMS_ITS | Encounter Summary ---
Author Organization [employer] turn off the lights [facility] Address 75 [facility] 7 [place] [address] Care Team Providers Care Dairy Husbandry Teacher Name Role Phone Amber Quiroz MD Primary Care Provider Reason for Visit * Reason Comments Med Refill Encounter Details Date Type Department Care Team (Late st Contact Info) Description 04/26/2023 Refill [facility] MEDICINE [address] [place] [address] [phone] Amber Quiroz MD [address] [place] [phone] Nausea Social History Tobacco Use Types Packs/Day [...] Description 11/12/2024 1:30 PM EDT Office Visit [facility] MEDICINE [address] [place] [address] [phone] Amber Quiroz MD [address] [place] [address] [phone] documented as of this encounter Visit Diagnoses Diagnosis Nausea Nausea alone documented in this encounter Care Teams Dairy Husbandry Teacher Relationship Specialty Start Date End Date Amber Quiroz MD [address] [place] [address] PCP - General Family Medicine 07/03/18 documented as of this encounter
--- OUTSIDE RECORDS SUMMARY | 2024-11-02 13:19 | XMS_ITS | Encounter Summary ---
Author Organization [employer] Address 75 [facility] 7t [place] [address] Care Team Providers Care [employer] Flatbed Truck Driver Name Role Phone Amber Quiroz MD Primary Care Provider [phone] Reason for Visit * Reason Onset Date Comments Nurse Triage 01/11/2024 Encounter Details Date Type Department Care Team ([facility] st Contact Info) Description 01/11/2024 Telephone [facility] [address] [place], [place] [phone] Amber Quiroz MD [address] [place], [place] [phone] Nurse Triage Social History Tobacco Use Types [...] t he electric, gas, oil or water [employer] threatened to shut off services in your [...] HDF appt tomorrow at 1030am with García JOB DEVELOPER. RX updated with pending HDF. Team tasked that if medication available from PCP for overnight use [facility]. * Telephone Encounter - Lacy Sahni LPN - 01/11/2024 3:31 PM EDT Triage in process. Patient requesting pain medication for kidney stone pain in [facility] 01/07/24-01/08/24. Patient not seeing any [...] worse Override Notes: Seen and treated at [facility] known kidney stones wants something [...] Visit [facility] [address] [place] [phone] Amber Quiroz MD [address] [place] [address] [phone] documented as of this encounter Visit Diagnoses Not on filedocumented in this encounter Care Teams Regional Company Flatbed Truck Driver Relationship Specialty Start Date End Date Amber Quiroz MD [address] [place] [address] [phone] PCP - General Family Medicine 07/03/18 documented as of this encounter
--- OUTSIDE RECORDS SUMMARY | 2024-11-02 13:19 | XMS_ITS | Encounter Summary ---
Author Organization [employer] Address 75 [facility] 7t [place] [address] Care Team Providers Care Tablet Making Machine Operator Helper Name Role Phone Amber Quiroz MD Primary Care Provider [phone] Reason for Visit * Reason Onset Date Comments Appointment Request 11/22/2023 Encounter Details Date Type Department Care Team ([facility] st Contact Info) Description 11/22/2023 Telephone [facility] MEDICINE [address] [place], [place] [phone] Amber Quiroz MD 230 [place], [place] [phone] Appointment Request Social History Tobacco Use Types [...] due tosleep difficulty. Please contact pt at [phone]. documented in this encounter Plan of Treatment Upcoming Encounters Date Type Department Care Team (Late st Contact Info) Description 11/12/2024 1:30 PM EDT Office Visit [facility] MED[facility]INE [address] [place] [address] Amber Quiroz MD 230 [place] [address] documented as of this encounter Visit Diagnoses Not on filedocumented in this encounter Care Teams Tablet Making Machine Operator Helper Relationship Specialty Start Date End Date Amber Quiroz MD [address] [place] [address] PCP - General Family Medicine 07/03/18 documented as of this encounter
--- OUTSIDE RECORDS SUMMARY | 2024-11-02 13:19 | XMS_ITS | Encounter Summary ---
Author Organization [employer] Address [address] [facility] [address] 7t [place] [address] Care Team Providers Care Container Finisher Name Role Phone Amber Quiroz MD Primary Care Provider [phone] Encounter Details Date Type Department Care Team (Latest Contact Info) Description 11/01/2024 Travel Social History Tobacco Use Types Packs/Day [...] Office Visit [facility] MED[facility]INE 230 [place], [place] [phone] Amber Quiroz MD 230 [place] [address] documented as of this encounter Visit Diagnoses Not on filedocumented in this encounter Care Teams Container Finisher Relationship Specialty Start Date End Date Amber Quiroz MD [address] [place] [address] [phone] PCP - General Family Medicine 07/03/18 documented as of this encounter
--- OUTSIDE RECORDS SUMMARY | 2024-11-02 13:19 | XMS_ITS | Encounter Summary ---
Author Organization [employer] Address 75 [facility] 7 [place] [address] Care Team Providers Care Mold Polisher Name Role Phone Amber Quiroz MD Primary Care Provider [phone] Reason for Visit * Reason Onset Date Comments Social Security Form 10/18/2024 I called re garding a Medical Source Opinion of Patient's Capability to Manage Benefits, from the Social Security Administration. I asked the patient if she has a psych provider, because her PCP feels that they may be able to complete for form. She stated that she has a psych provider that she sees every 2 months, but she would like for her PCP to complete the form, because she feels that her condition is not so bad that it would require for it to be completed by a psych provider. Encounter Details Date Type Department Care Team (Late st Contact Info) Description 10/18/[address] [facility] MEDICINE [address] [place] [address] Amber Quiroz MD [address] [place] [address] Social Security Form (I called regarding a Medical Source Opinion of Patient's Capability to Manage Benefits, from the Social Security Administration. I asked the patient if she has a psych provider, because her PCP feels that they may be able to complete for form. She stated that she has a psych provider that she sees every 2 months, but she would like for her PCP to complete the form, because she feels that her condition is not so bad that it would require for it to be completed by a psych provider.) Social History Tobacco Use Types Packs/Day Years [...] encounter Miscellaneous Notes * Telephone Encounter - Erin Kaminski MA - 10/29/2024 2:38 PM EDT I called regarding a Medical Source Opinion of Patient's Capability to Manage Benefits, from the Social Security Administration. I asked the patient if she has a psych provider, because her PCP feelsthat they may be able to complete the form. She stated that she has a psych provider that she sees every 2 months, but she would like for her PCP to complete the form, because she feels that her condition is not so bad that it would require for it to be completed by a psych provider. * Telephone Encounter - Rashmi Kojo Iyer - 10/18/2024 9:22 AM EDT TC from pt requesting medication refill. Medications needing refill : traMADol (Ultram) 50 MG tablet To be sent to: [facility] [address] [place] [phone] documented in this encounter Plan of Treatment Upcoming Encounters Date Type Department Care Team (Late st Contact Info) Description 11/12/2024 1:30 PM EDT Office Visit [facility] MEDICINE [address] [place], [place] [phone] Amber Quiroz MD 230 [place], [place] [phone] documented as of this encounter Visit Diagnoses Not on filedocumented in this encounter Care Teams Mold Polisher Relationship Specialty Start Date End Date Amber Quiroz MD [address] [place] [address] [phone] PCP - General Family Medicine 07/03/18 documented as of this encounter
--- OUTSIDE RECORDS SUMMARY | 2024-11-02 13:19 | XMS_ITS | Encounter Summary ---
Author Organization [employer] Address [address] [facility] [address] 7t [place] [address] Care Team Providers Care Dumper Central Concrete Mixing Plant Name Role Phone Amber Quiroz MD Primary Care Provider [phone] Encounter Details Date Type Department Care Team (Late st Contact Info) Description 09/04/2024 Orders Only [facility] MEDICINE 230 [place], [place] [phone] Amber Quiroz MD 230 [place], [place] [phone] Routine screening for STI (sexually transmitted infection) [...] t he electric, gas, oil or water [employer] threatened to shut off services in your [...] 1:30 PM EDT Office Visit [facility] MEDICINE [address] [place] [phone] Amber Quiroz MD [address] [place] [phone] Scheduled Orders Name Type Priority Associated Diagnoses [...] disease documented in this encounter Care Teams Dumper Central Concrete Mixing Plant Relationship Specialty Start Date End Date Amber Quiroz MD [address] [place] [address], [place] [address] PCP - General Family Medicine 07/03/18 documented as of this encounter
--- OUTSIDE RECORDS SUMMARY | 2024-11-02 13:19 | XMS_ITS | Encounter Summary ---
Author Organization [employer] Address [address] [facility] [address] 7t [place] [address] Care Team Providers Care Sales Associate Name Role Phone Amber Quiroz MD Primary Care Provider [phone] Encounter Details Date Type Department Care Team ([facility] Contact Info) Description 10/28/[address] [facility] PEDS [address] [place], [place] [phone] Rachelle Lucero, RN [address] [place], [place] Social History Tobacco Use Types Packs/Day Years [...] encounter Miscellaneous Notes * Telephone Encounter - Dede Christine - 10/30/2024 9:52 AM EDT Tc from pt returning call. Pt requesting to speak to KNIFE CUTTER nurse. Contact pt at [phone] * Telephone Encounter - Rachelle Lucero RN - 10/28/2024 9:31 AM EDT TC to [facility] urology regarding message below. Pt has not been seen in their office for over a year. NSto multiple appts. Pt has been seen in ER on 10/17 and 10/19. No documentation regarding changing themedication, pt might have been consulter by an ER provider. TC to pt to clarify, no answer. Lvm to v/b. documented in this encounter Plan of Treatment Upcoming Encounters Date Type Department Care Team (Late st Contact Info) Description 11/12/2024 1:30 PM EDT Office Visit [facility] MEDICINE [address] [place] [address] Amber Quiroz MD 230 [place] [address] documented as of this encounter Visit Diagnoses Not on filedocumented in this encounter Care Teams Sales Associate Relationship Specialty Start Date End Date Amber Quiroz MD 230 [place] [address] PCP - General Family Medicine 07/03/18 documented as of this encounter
--- OUTSIDE RECORDS SUMMARY | 2024-11-02 13:20 | XMS_ITS | Encounter Summary ---
Author Organization [employer] Address 75 [facility] 7t [place] [address] Care Team Providers Care Kiln Burner Name Role Phone Amber Quiroz MD Primary Care Provider [phone] Encounter Details Date Type Department Care Team (Late st Contact Info) Description 04/05/2023 Orders Only [facility] CH[facility] MED & PEDS [address] [place] [address] Anabell Martinez LPN Social History Tobacco Use [...] 1:30 PM EDT Office Visit [facility] MEDICINE [address] [place] [address] Amber Quiroz MD 230 [place], [place] [phone] documented as of this encounter Visit Diagnoses Not on filedocumented in this encounter Care Teams Kiln Burner Relationship Specialty Start Date End Date Amber Quiroz MD [address] [place], [place] [phone] PCP - General Family Medicine 07/03/18 documented as of this encounter
--- OUTSIDE RECORDS SUMMARY | 2024-11-02 13:20 | XMS_ITS | Clinical Summary ---
Author Organization [facility] Address [address] [place] [address] Phone Care Team Providers Care Senior Laboratory Technician Name Role Phone Physician, No Pcp Primary Care Provider Unavaila ble Allergies Active Allergy Reactions Criticality Noted Date Comments Aspirin Congestion of the throat 08/21/2024 Ibuprofen Swallowing Problem 08/21/2024 Acetaminophen Swallowing Problem 08/21/2024 Medications No known medications Active Problems No known active problems Encounters Date Type Department Care Team Description 09/25/2024 Lab Requisition [facility] - Main Lab [address] [facility] [place] [address] Zachery Chi PA Calculus of ureter 08/21/2024 3:41 PM EST - 08/21/2024 7:08 PM EST Emergency [facility] Emergency [address] [place] [address] Bilateral flank pain (Primary Dx); [...] hormone intact (09/25/2024 3:15 PM EDT) Pathologist [facility] PTH 31.1 18.5 - 88.0 pcg/mL LAB CHEMISTRY METHOD 09/25/2024 7:10 PM EDT [facility] Blood Venous blood specimen / Unknown 09/25/2024 3:15 PM EDT 09/25/2024 6:18 PM EDT Zachery LUO LAB BLOOD ORDERABLES Final Res ult [facility] [address] [place] [address], [place] [phone] * ECG-Annotated (08/22/2024) Provider Onbase MD ECG ORDERABLES Final Result * (ABNORMAL) Drug abuse screen 8a panel, urine (08/21/2024 6:02 PM EST) [facility] Amphetamine Screen, Ur Negative Negative LAB CHEMISTRY [...] 5 6:35 PM EST [facility] Urine Urine specimen obtained by clean catch procedure / Unknown Non-blood Collection / Unknown 08/21/2024 6:02 PM EST 08/21/2024 6:09 PM EST Narrative [facility] - 08/21/2024 6:35 PM EST [...] ORDERABLES Final Result [facility] [address] [place] [address], * (ABNORMAL) Urinalysis with reflex microscopic and culture (08/21/2024 6:00 PM EST) Specific [place] Urine 1.019 1.003 - 1.030 LAB URINALYSIS - AUTOMATED METHOD 08/21/2024 6:43 PM EST [facility] pH, Urine 6.5 5.0 - 8.0 pH LAB URINALYSIS - AUTOMATED METHOD 08/21/2024 6:43 PM [facility] Leukocytes, Urine Trace(A) Negative LAB URINALYSIS - AUTOMATED METHOD 08/21/2024 6:43 PM [facility] Nitrite, Urine Negative Negative LAB URINALYSIS - AUTOMATED METHOD 08/21/2024 6:43 PM [facility] Protein, Urine Negative <=Trace mg/dL LAB URINALYSIS - AUTOMATED METHOD 08/21/2024 6:43 PM [facility] Glucose, Urine Negative Negative mg/dL LAB URINALYSIS - AUTOMATED METHOD 08/21/2024 6:43 PM [facility] Ketones, Urine Negative Negative mg/dL LAB URINALYSIS - AUTOMATED METHOD 08/21/2024 6:43 PM [facility] Urobilinogen , Urine 1.0 0.2 - 1.0 mg/dL LAB URINALYSIS - AUTOMATED METHOD 08/21/2024 6:43 PM [facility] Bilirubin, Urine Negative Negative LAB URINALYSIS - AUTOMATED METHOD 08/21/2024 6:43 PM [facility] Blood, Urine Negative Negative LAB URINALYSIS - AUTOMATED METHOD 08/21/2024 6:43 PM [facility] RBC, Urine 3.9 0 - 4 /HPF LAB URINALYSIS - AUTOMATED METHOD 08/21/2024 6:43 PM [facility] WBC, Urine 4.4(H) 0 - 4 /HPF LAB URINALYSIS - AUTOMATED METHOD 08/21/2024 6:43 PM [facility] Squamous Epithelial, Urine >100(H) 0 - 60 /LPF LAB URINALYSIS - AUTOMATED METHOD 08/21/2024 6:43 PM [facility] Bacteria, Urine Moderate(A) Negative /HPF LAB URINALYSIS - AUTOMATED METHOD 08/21/2024 6:43 PM [facility] Hyaline Casts, Urine 2.4 0 - 3 /LPF LAB URINALYSIS - AUTOMATED METHOD 08/21/2024 6:43 PM EST [facility] Urine Urine specimen obtained by clean catch procedure / Unknown Non-blood Collection / Unknown 08/21/2024 6:00 PM EST 08/21/2024 6:09 PM EST Ramiro Miguelrussell Maier DO LAB URINE ORDERABLES Final Resu lt [facility] [address] [place] [address], [place] [phone] * Vaughn urine culture tube (08/21/2024 6:00 PM EST) Extra Tube Hold for add-ons. 08/21/2024 8:01 PM EST [facility] Comment:Auto resulted. Urine Urine specimen obtained by clean catch procedure / Unknown Non-blood Collection / Unknown 08/21/2024 6:00 PM EST 08/21/2024 6:09 PM EST Ramiro Ryan Livier [facility] LAB URINE ORDERABLES Final Resu lt Performing Organization Address [facility]/ZIP Co de Phone Number [facility] [address] [place] [address], [place] [phone] * Culture urine (08/21/2024 6:00 PM EST) [...] ORDE RABLES Final Result Performing Organization Address City/[facility] Co de Phone Number [facility]LY[facility] WILLIAMSON [facility] [address] [place] [address], * CT Head wo Contrast (08/21/2024 5:00 [...] GEMUSE QTc 443 ms GEMUSE P Wave [place] 58 degrees GEMUSE R [place] 11 degrees GEMUSE T [place] 43 degrees GEMUSE ECG Interpretation Normal sinus [...] K/mcL LAB HEMETOLOGY METHOD 08/21/2024 4:06 PM [facility] RBC 4.60 3.80 - 4.80 M/mcL LAB HEMETOLOGY METHOD 08/21/2024 4:06 PM [facility] Hemoglobin 12.2 11.5 - 16.0 g/dL LAB HEMETOLOGY METHOD 08/21/2024 4:06 PM [facility] Hematocrit 37.6 35.0 - 47.0 % LAB HEMETOLOGY METHOD 08/21/2024 4:06 PM [facility] MCV 82.6 79.0 - 98.0 FL LAB HEMETOLOGY METHOD 08/21/2024 4:06 PM [facility] MCH 26.8(L) 27.0 - 32.0 pcg LAB HEMETOLOGY METHOD 08/21/2024 4:06 PM [facility] MCHC 32.4 32.0 - 37.0 g/dL LAB HEMETOLOGY METHOD 08/21/2024 4:06 PM [facility] RDW 15.2(H) 11.0 - 15.0 % LAB HEMETOLOGY METHOD 08/21/2024 4:06 PM [facility] Platelets 235 130 - 400 K/mcL LAB HEMETOLOGY METHOD 08/21/2024 4:06 PM [facility] MPV 10.3 7.0 - 11.0 FL LAB HEMETOLOGY METHOD 08/21/2024 4:06 PM [facility] NRBC 0.0 <1.0 % LAB HEMETOLOGY METHOD 08/21/2024 4:06 PM [facility] NRBC Absolute 0.00 <0.10 K/mcL LAB HEMETOLOGY METHOD 08/21/2024 4:06 PM [facility] Neutrophils Relative 49.4 % LAB HEMETOLOGY METHOD 08/21/2024 4:06 PM [facility] Lymphocytes Relative 40.3 % LAB HEMETOLOGY METHOD 08/21/2024 4:06 PM [facility] Monocytes Relative 7.7 % LAB HEMETOLOGY METHOD 08/21/2024 4:06 PM [facility] Eosinophils Relative 2.2 % LAB HEMETOLOGY METHOD 08/21/2024 4:06 PM [facility] Basophils Relative 0.2 % LAB HEMETOLOGY METHOD 08/21/2024 4:06 PM [facility] Immature Granulocytes Relative 0.2 % LAB HEMETOLOGY METHOD 08/21/2024 4:06 PM [facility] Neutrophils Absolute 2.26 1.50 - 7.00 K/mcL LAB HEMETOLOGY METHOD 08/21/2024 4:06 PM [facility] Lymphocytes Absolute 1.84 1.00 - 5.00 K/mcL LAB HEMETOLOGY METHOD 08/21/2024 4:06 PM [facility] Monocytes Absolute 0.35 0.20 - 1.00 K/mcL LAB HEMETOLOGY METHOD 08/21/2024 4:06 PM [facility] Eosinophils Absolute 0.10 0.00 - 0.50 K/mcL LAB HEMETOLOGY METHOD 08/21/2024 4:06 PM EST [facility] Basophils Absolute 0.01 0.00 - 0.20 K/[facility] LAB HEMETOLOGY METHOD 08/21/2024 4:06 PM EST [facility] Immature Granulocytes Absolute 0.01 0.00 - 0.03 K/[facility] LAB HEMETOLOGY METHOD 08/21/2024 4:06 PM [facility] Blood Venous blood specimen / Unknown Venipuncture / Unknown 08/21/2024 3:50 PM EST 08/21/2024 3:56 PM EST Tonojameson Scanadurussell [facility] LAB BLOOD ORDERABLES Final Resu lt Performing Organization Address City/[facility]/ZIP Co de Phone Number [facility] [address] [place] [address], [place] [phone] * Lipase (08/21/2024 3:50 PM EST) Lipase 34 13 - 75 unit/L LAB CHEMISTRY METHOD 08/21/2024 4:26 PM [facility] Blood Venous blood specimen / Unknown Venipuncture / Unknown 08/21/2024 3:50 PM EST 08/21/2024 3:56 PM EST Tonojameson Davis Livier LAB BLOOD ORDERABLES Final Resu lt Performing Organization Address City/[facility]/ZIP Co de Phone Number [facility] [address] [place] [address], [place] [phone] * (ABNORMAL) Comprehensive metabolic panel (08/21/2024 3:50 PM EST) Sodium 144 133 - 145 mmol/L LAB CHEMISTRY METHOD 08/21/2024 4:26 PM [facility] Potassium 3.5 3.5 - 5.5 mmol/L LAB CHEMISTRY METHOD 08/21/2024 4:26 PM [facility] Chloride 113(H) 96 - 110 mmol/L LAB CHEMISTRY METHOD 08/21/2024 4:26 PM [facility] CO2 23 21 - 32 mmol/L LAB CHEMISTRY METHOD 08/21/2024 4:26 PM [facility] Anion Gap 8 3 - 11 LAB CHEMISTRY METHOD 08/21/2024 4:26 PM [facility] Glucose 108(H) 70 - 100 mg/dL LAB CHEMISTRY METHOD 08/21/2024 4:26 PM [facility] BUN 13 5 - 25 mg/dL LAB CHEMISTRY METHOD 08/21/2024 4:26 PM [facility] Creatinine 0.54 0.50 - 1.10 mg/dL LAB CHEMISTRY METHOD 08/21/2024 4:26 PM [facility] eGFR 106 >=60 mL/min/1. 73m2 LAB CHEMISTRY METHOD 08/21/2024 4:26 PM [facility] Comment:Calculation based on the??Chronic Kidney Disease Epidemiology Collaboration (CKD-EPI) equation refit??without adjustment for race. BUN/Creatinine Ratio 24.1 LAB CHEMISTRY METHOD 08/21/2024 4:26 PM [facility] Calcium 9.3 8.5 - 10.5 mg/dL LAB CHEMISTRY METHOD 08/21/2024 4:26 PM [facility] AST (SGOT) 27 10 - 42 unit/L LAB CHEMISTRY METHOD 08/21/2024 4:26 PM [facility] ALT (SGPT) 36 10 - 60 unit/L LAB CHEMISTRY METHOD 08/21/2024 4:26 PM [facility] Alkaline Phosphatase 109 42 - 121 unit/L LAB CHEMISTRY METHOD 08/21/2024 4:26 PM [facility] Total Protein 7.2 6.0 - 8.0 g/dL LAB CHEMISTRY METHOD 08/21/2024 4:26 PM [facility] Albumin 3.9 3.2 - 5.0 g/dL LAB CHEMISTRY METHOD 08/21/2024 4:26 PM EST [facility] Total Bilirubin 0.2 0.0 - 1.4 mg/dL LAB CHEMISTRY METHOD 08/21/2024 4:26 PM EST [facility] Blood Venous blood specimen / Unknown Venipuncture / Unknown 08/21/2024 3:50 PM EST 08/21/2024 3:56 PM EST us Ramiro Maier DO LAB BLOOD ORDERABLES Final Resu lt [facility] [address] [place] [address], [place] [phone] from Last 3 Months Insurance MEDICAID - [place] Care Teams Senior Laboratory Technician Relationship Specialty Start Date End Date Physician, No Pcp PCP - General 08/21/24
--- OUTSIDE RECORDS SUMMARY | 2024-11-02 13:20 | XMS_ITS | Encounter Summary ---
Author Organization [employer] Address [address] [facility] [address] [place] [address] Care Team Providers Care Passenger Brakeman Name Role Phone Amber Quiroz MD Primary Care Provider [phone] Encounter Details Date Type Department Care Team (Late st Contact Info) Description 12/12/[address] [facility] [address] [place] [address] [phone] Anabell Martinez LPN Social History Tobacco Use [...] Description 11/12/2024 1:30 PM EDT Office Visit [facility] [address] [place] [phone] Amber Quiroz MD [address] [place] [phone] documented as of this encounter Visit Diagnoses Not on filedocumented in this encounter Care Teams Passenger Brakeman Relationship Specialty Start Date End Date Amber Quiroz MD [address] [place] [phone] PCP - General Family Medicine 1/1/19 documented as of this encounter
--- OUTSIDE RECORDS SUMMARY | 2024-11-02 13:20 | XMS_ITS | Clinical Summary ---
Author Organization [employer] Address [address] [facility] [address] [place] [address] Care Team Providers Care Charge Poster Name Role Phone Amber Quiroz MD Primary Care Provider [phone] Allergies Active Allergy Reactions Criticality Noted Date [...] for severe pain. 15 tablet 025 Active gabapentin (Neurontin) 600 MG tablet TOME 1 TABLETA POR V A ORAL ELIZABETH VECES AL D A 025 Active Melatonin 10 MG sublingual tablet TOME 1 TABLETA POR V A ORAL TODOS LOS D AL ACOSTARSE Active ARIPiprazole (Abilify) 2 MG tablet Take 2 mg by mouth. Active ondansetron (Zofran) 4 MG tabletIndications :Nausea TAKE 1 TABLET BY MOUTH EVERY 8 HOURS NEEDED FOR NAUSEA AND VOMITING 30 tablet Active albuterol (Ventolin HFA) 108 (90 Base) MCG/ACT inhalerIndication s:Moderate persistent asthma without complication INHALE 2 PUFFS BY MOUTH EVERY 4 TO 6 HOURS OR DIFFICULTY BREATHING. DO NOT EXCEED FOUR TIMES DAILY. 18 g Active ondansetron (Zofran) 4 MG [...] EXCEED FOUR TIMES DAILY. 18 g 025 2024 Discontinued(R eorder (will not trigger notification to Pharmacy)) ondansetron (Zofran) 4 MG tabletIndications :Nausea TAKE 1 TABLET BY MOUTH EVERY 8 HOURS NEEDED FOR NAUSEA AND VOMITING 30 tablet 025 2024 Discontinued traMADol (Ultram) 50 MG tabletIndications :Nephrolithiasis Take 1 tablet (50 mg) by mouth every 8 (eight) hours if needed for severe pain. 15 tablet 025 2024 Discontinued(R eorder (will not trigger notification to Pharmacy)) amoxicillin (Amoxil) 500 MG capsule Take 1 capsule (500 mg) by mouth every 8 (eight) hours for 7 days. 21 capsule 025 2024 acetaminophen (Tylenol 8 Hour) 650 MG ER tablet Take 1 tablet (650 mg) by mouth every 8 (eight) hours if needed for mild pain for up to 7 days. Do not crush, chew, or split. 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); White without pressure of peripheral retina of both eyes; Hyperopia of both eyes 11/01/2024 Travel 10/30/[address] [address] Amber Quiroz MD Moderate persistent asthma without complication 10/30/[address] [address] Charleen Latif MD Nausea; Moderate persistent asthma without complication 10/30/2024 Refill [facility] [address] [place] [address] Dilcia Henry ANP Nephrolithiasis 10/30/[address] [address] Amber Quiroz MD Med Refill 10/28/2024 Telephone [facility] [address] [place] [address] Rachelle Lucero RN 10/25/2024 10:00 AM EDT Office Visit [facility]ENTAL [address] [place] [address] Boom Franklin DDS Pain 10/24/2024 10:45 AM EDT Immunization [address] [address] Allison Montgomery RN Encounter for immunization 10/24/[address] [address] Amber Quiroz MD 10/18/2024 Refill [facility] [address] [place] [address] Rachelle Lucero RN Nephrolithiasis 10/18/[address] [address] Amber Quiroz MD Social Security Form (I called regarding a [...] to be completed by a psych provider.) 10/17/2024 Telephone [facility] [address] [place] [address] Cheryl Larkin, RN Sent to ED from Office 10/16/2024 Telephone [facility] [address] [place] [address] Amber Quiroz MD Chart Prep 10/15/[address] [address] Amber Quiroz MD Nurse Triage 10/11/2024 Patient Outreach [address] [address] Amber Quiroz MD Care Coordination (CM/CHW outreach) 10/11/2024 Patient Outreach [address] [address] Amber Quiroz MD Care Coordination (CM/CHW outreach) 10/08/2024 Refill [facility] [address] [place] [address] Rachelle Lucero, DOROTA Nephrolithiasis 10/08/2024 Telephone [facility] [address] [place] [address] Amber Quiroz MD 10/07/2024 Refill [facility] [address] [place] [address] Amber Quiroz MD Nausea 10/02/2024 Telephone [facility] [address] [place] [address] 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 RN Medication Question 10/01/2024 11:30 AM EDT Telemedicine [facility] [address] [place] [address] 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 RN Essential hypertension 10/01/2024 Travel 10/01/2024 Telephone [facility] [address] [place] [address] Amber Quiroz MD 09/26/2024 Telephone [facility] [place] [address] Amber Quiroz MD Nurse Triage 09/25/2024 Refill [facility] [place] [address] Amber Quiroz MD Moderate persistent asthma without complication 09/25/2024 Telephone [facility] [place] [address] Amber Quiroz MD Care Management (C3- initial assessment/ enrollment #2. lvm) 09/24/2024 Patient Outreach [facility] [place] [address] Amber Quiroz MD Care Coordination (CM/CHW appt reminder) 09/20/2024 Refill [facility] [place] [address] Amber Quiroz MD Nephrolithiasis 09/13/2024 Population Health Risk Score [facility] () [address] [phone] Provider, Population Health Generic 09/05/2024 Telephone [facility] [place] [address] 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 RN Results 09/04/2024 Orders Only [facility] [place] [address] Amber Quiroz MD Routine screening for STI (sexually transmitted infection) (Primary Dx) 09/04/2024 Patient Outreach [facility] [place] [address] Amber Quiroz MD Care Coordination (CM/CHW outreach) 09/04/2024 Refill [facility] [place] [address] Amber Quiroz MD 09/03/2024 3:00 PM EST Office Visit [facility] [place] [address] Amber Quiroz MD Loin pain hematuria syndrome (Primary Dx); Essential hypertension; Kidney stones; Nephrolithiasis; Mood disorder (CMS/HCC); Dyslipidemia; Encounter for immunization; Dietary counseling; Exercise counseling; Overweight; Panic disorder without agoraphobia; Anxiety; Iron deficiency anemia, unspecified iron deficiency anemia type 09/03/2024 Telephone [facility] [address] [place] [address] Amber Quiroz MD Appointment Request 09/03/2024 Travel 08/29/2024 Refill [facility] [address] [place] [address] Amber Quiroz MD 08/28/2024 Telephone [facility] [address] [place] [address] Shellie Eric MA chart prep 08/28/2024 Patient Outreach [address] [address] Amber Quiroz MD Care Coordination (CM/CHW outreach) 08/26/2024 Telephone [facility] [address] [place] [address] Amber Quiroz MD Nurse Triage 08/25/2024 Refill [facility] [address] [place], [place] [phone] Amber Quiroz MD Pain 08/21/2024 Telephone [facility] [address] [place] [address] Amber Quiroz MD Nurse Triage 08/15/2024 Patient Outreach [address] [address] Amber Quiroz MD Care Coordination (CM/CHW outreach) 08/15/2024 Telephone [facility] [address] [place] [phone] Marixa Eric RN Care Management (C3CM- chart review) 08/15/2024 Refill [facility] [address] [place] [address] [phone] Amber Quiroz MD Nausea 08/14/2024 Orders Only [...] Vaccine 12+ 08/10/2021 Pfizer Covid-19 Vaccine 12+ 10/24/2024,,01/29/2021 Pneumococcal Conjugate PCV 13 04/29/2017 Pneumococcal Conjugate [...] 1:30 PM EDT Office Visit [facility] [address] [place] [address] Amber Quiroz MD [address] [place] [address] Health Maintenance Due Date Last Done Comments CT Colonography 1965 Dental Prophylaxis 1965 Depression Screening 1965 FIT DNA/Cologuard 1965 FIT 1965 FOBT 1965 HIV Screening 1965 Sigmoidoscopy 1965 Hepatitis C Screening 1982 Mammogram 2004 Dental X-Ray: Bitewings 11/24/2012 11/24/2011 Colonoscopy 07/31/2021 Colorectal Cancer Screening 07/31/2021 Colposcopy 07/31/2021 Zoster Vaccines (2 of 2) 05/29/2023 04/03/2023 Pap Smear 07/30/2024 07/30/2021 SDOH Screening 02/26/2025 02/27/2024 Dental Oral Exam 04/27/2025 10/25/2024 Alcohol/Substance Use Screening 09/03/2025 09/03/2024 Tobacco Screening 09/10/2025 09/10/2024 Cervical Cancer Screening 07/30/2026 HPV/Cotest 07/30/2026 07/30/2021, 01/28/2019 Dental X-Ray: Full Mouth 10/27/2027 025, 07/09/2012, 11/24/2011 DTaP/Tdap/Td Vaccines (5 - Td or Tdap) 03/15/2029 03/15/2019, 12/21/2012, 11/05/2012, Additional history exists Lipid Panel 09/03/2029 09/03/2024 RSV Patients and Patients Aged 60 years or older (1 - 1-dose 75+ series) 11/20/2039 Hepatitis B Vaccines Completed 11/29/2023, 04/18/2023, 03/22/2023 Influenza Vaccine Completed 09/03/2024, , 04/02/2021, Additional history exists Pneumococcal Vaccine: 50+ Years Completed 09/03/2024, 04/29/2017, 09/14/2015, Additional history exists COVID-19 Vaccine Completed 10/24/2024, 01/2022, 02/19/2021, Additional history exists HIB Vaccines Aged Out [...] topic Meningococcal Vaccine Aged Out No isela alila eligible based on patient's age to complete this topic RSV under 20 months Aged Out No longe r eligible based on patient's age to complete this topic Rotavirus Vaccines Aged Out No longer eligible based on patient's age to complete this topic Procedures Procedure Name Priority Date/Time Associated Diagnosis Comments CASE PRESENTATION, DETAILED AND EXTENSIVE TREATMENT PLANNING Routine 10/25/2024 10:00 AM EDT PANORAMIC RADIOGRAPHIC IMAGE Routine 10/25/2024 10:00 AM EDT PERIODIC ORAL EVALUATION - ESTABLISHED PATIENT Routine 10/25/2024 10:00 AM EDT COMPREHENSIVE PERIODONTAL EVALUATION - NEW OR ESTABLISHED PATIENT Routine 10/25/2024 10:00 AM EDT AMB REFERRAL TO UROLOGY Urgent 09/25/2024 Nephrolithiasis [...] HPV 16,18/45 Routine 07/30/2021 10:17 AM EST INTRAORAL - COMPLETE SERIES OF RADIOGRAPHIC IMAGES Routine 11/24/2011 12:00 AM EDT from Last 3 Months or Most Recently Relevant to Health Maintenance Results * Referral to Urology (09/25/2024) Amber Quiroz MD OUTPATIENT REFERRAL ORDERABLES F inal Result * Pathologist Review - CBC (09/03/2024 4:26 PM EST) Pathologist Review - CBC SEE NOTE [facility] Comment:Normochromic normocy tic anemia; white blood cells are mildlydecreased in number, but otherwise normal appearing.- Ray Viera M.D. Pathology Blood Venous blood specimen / Unknown 09/03/2024 4:26 PM EST 09/03/2024 6:14 PM EST Amber Quiroz MD LAB BLOOD ORDERABLES Final Resul t [facility] [address] [place] [phone] * Vitamin B12/Folate, Serum Panel (09/03/2024 4:26 PM EST) Vitamin B12 247 200 - 900 pg/mL [facility] Comment:NORMAL 200-900 PG/ML INDETERMINATE 160-199 PG/ML DEFICIENT < 160 PG/ML Folate 9.9 > or = 4.0 ng/mL [facility] Comment:Reference Values:> o r = 4.0 ng/mL< 4.0 ng/mL suggests folate deficiency Methotrexate, aminopterin and folinic acid(leucovorin) are chemotherapeutic agents whose molecularstructures are similar to folate; therefore, the Architectfolate assay cannot be used for patients using these drugs. 09/03/2024 4:26 PM EST 09/03/2024 6:14 PM EST Amber Quiroz MD LAB BLOOD ORDERABLES Final Resul t Performing Organization Address City/[facility]/ZIP Co de Phone Number [facility] [address] [place] [address] [phone] * TSH with Reflex to Free T4 (09/03/2024 4:26 PM EST) TSH reflex Free T4 1.08 0.32 - 4.0 uIU/mL [facility] Blood 09/03/2024 4:26 PM EST 09/03/2024 6:14 PM EST Amber Quiroz MD LAB BLOOD ORDERABLES Final Resul t Performing Organization Address [facility] Co de Phone Number [facility] [address] [place] [phone] * (ABNORMAL) Lipid Panel with Reflex to Direct LDL (09/03/2024 4:26 PM EST) Triglycerides 112 <150 mg/dL [facility] Comment:Desirable Triglyceri de: less than 150 mg/dLBorderline High Triglyceride 150-199 mg/dLHigh Triglyceride: 200-499 mg/dLVery High Triglyceride: greater than or equal to 5OO mg/dL Cholesterol 183 <200 mg/dL [facility] Comment:Desirable Cholestero l: less than 200 mg/dLBorderline High Cholesterol: 200-239 mg/dLHigh Cholesterol: greater than 239 mg/dL LDL Cholesterol Calculated 112(H) <100 mg/dL [facility] Comment:Desirable LDL: less than 100 mg/dLNear Optimal/Above Optimal LDL: 110- 129 mg/dLBorderline High LDL: 130-159 mg/dLHigh LDL: 160-189 mg/dLVery High LDL: greater than or equal to 190 mg/dL HDL Cholesterol 49 >40 mg/dL [facility] Comment:Desirable HDL: great er than 40 mg/dL Note: This HDL assay may give artificially low results in patients with liver disease. Blood 09/03/2024 4:2 6 PM EST 09/03/2024 6:14 PM EST us Amber Quiroz MD LAB BLOOD ORDERABLES Final Resul t [facility] [address] [place], [place] [phone] * (ABNORMAL) CBC auto differential (09/03/2024 4:26 PM EST) White Blood Count 4.3(L) 4.8 - 10.8 X10*3/uL [facility] Red Blood Count 4.34 4.20 - 5.50 X10*6/uL [facility] Hemoglobin 11.4(L) 12.0 - 16.0 g/dl [facility] Hematocrit 35.9(L) 37.0 - 47.0 % [facility] Mean Corpuscular Volume 82.7 80.0 - 98.0 fL [facility] Mean Corpuscular Hemoglobin 26.3(L) 27.0 - 33.0 pg [facility] Mean Corpuscular HGB Conc 31.8 31.0 - 35.0 g/dl [facility] Red Cell Distribution Width 15.3 11.0 - 16.0 % [facility] Platelet Count 277 160 - 400 X10*3/uL [facility] Mean Platelet Volume 10.5 9.4 - 12.3 fL [facility] Neutrophils Percent Auto 46.0 45 - 73 % [facility] Imm Gran Pct Auto 0.2 0.0 - 0.4 % [facility] Lymphocytes Percent Auto 45.1(H) 20 - 40 % [facility] Monocytes Percent Auto 6.8 2 - 11 % [facility] Eosinophils Percent Auto 1.4 0 - 4 % [facility] Basophils Percent Auto 0.5 0 - 2 % [facility] NRBC Pct Auto 0.0 0.0 - 0.2 /100WBC [facility] Neutrophils Absolute Auto 2.0 2.0 - 8.3 x10*3/uL [facility] Imm Gran Abs Auto 0.01 0.00 - 0.03 X10*3/uL [facility] Lymphocytes Absolute Auto 1.9 1.2 - 4.9 X10*3/uL [facility] Monocytes Absolute Auto 0.3 0.1 - 1.2 X10*3/uL [facility] Eosinophils Absolute Auto 0.1 0.0 - 0.4 X10*3/uL [facility] Basophils Absolute Auto 0.0 0.0 - 0.2 X10*3/uL [facility] NRBC Abs Auto 0.000 0.0 - 0.012 X10*3/uL [facility] Blood Venous blood specimen / Unknown 09/03/2024 4:26 PM EST 09/03/2024 6:14 PM EST Amber Quiroz MD LAB BLOOD ORDERABLES Final Resul t Performing Organization Address [facility] Phone Number [facility] [address] [place] [phone] * Iron And Total Iron Binding Capacity (09/03/2024 4:26 PM EST) Iron 69 30 - 160 mcg/dL [facility] Comment:Slight Hemolysis.Int erpret result with caution. Total Iron Binding Capacity 250 228 - 428 mcg/dL [facility] Percent Iron Saturation 28 15 - 50 % [facility] Unsaturated Iron Binding 181 ug/dL [facility] Blood Venous blood specimen / Unknown 09/03/2024 4:26 PM EST 09/03/2024 6:14 PM EST Amber Quiroz MD LAB BLOOD ORDERABLES Final Resul t Performing Organization Address [facility] de Phone Number [facility] [address] [place] [phone] * Hemoglobin A1c (09/03/2024 4:26 PM EST) Hemoglobin A1c 5.6 <6.0 % [facility] Comment:Hemoglobin A1C Refer ence Range Adults: 4.8 - 6.0 % Non diabetic: < 6.0 % Goal: < 7.0 %Additional Action Suggested: > 8.0 %Note: Hemoglobin A1c results are invalid for patients with abnormal amounts of HbF. Blood transfusions may impact the HbA1c concentration in the patient sample. Estimated Average Glucose 114 mg/dL [facility] Comment:eAG = Estimated ave rage glucose which is %A1C expressed asaverage glucose, using the formula of the B8O-JfcrvuwPmhtsta Glucose study (ADAG), Diabetes Care, Vol.31,#8,Jan. 2007 Blood Venous blood specimen / Unknown 09/03/2024 4:26 PM EST 09/03/2024 6:14 PM EST Amber Quiroz MD LAB BLOOD ORDERABLES Final Resul t Performing Organization Address City/[facility]/ZIP Co de Phone Number [facility] [address] [place] [phone] * Ferritin (09/03/2024 4:26 PM EST) Ferritin 51 10 - 250 ng/mL [facility] Blood Venous blood specimen / Unknown 09/03/2024 4:26 PM EST 09/03/2024 6:14 PM EST us Amber Quiroz MD LAB BLOOD ORDERABLES Final Resul t Performing Organization Address [facility]/ZIP Co de Phone Number [facility] [address] [place] [phone] * (ABNORMAL) Comprehensive Metabolic Panel (09/03/2024 4:26 PM EST) Sodium 143 135 - 145 mmol/L [facility] Potassium 3.9 3.3 - 5.1 mmol/L [facility] Comment:Slight Hemolysis.Int erpret result with caution. Chloride 111(H) 96 - 108 mmol/L [facility] Carbon Dioxide 23 22 - 29 mmol/L [facility] Anion Gap 13 12 - 20 [facility] Urea Nitrogen (BUN) 15 9 - 16 mg/dL [facility] Creatinine, Serum 0.66 0.5 - 1.4 mg/dL [facility] Estimated Glomerular Filt Rate >60 [facility] Comment:Chronic Kidney Disea se: Estimated GFR < 60 mL/min/[id number] Kidney Disease: Estimated GFR < 15 mL/min/1.73m2 Glucose 91 60 - 115 mg/dL [facility] Calcium 8.6 8.4 - 10.2 mg/dL [facility] Bilirubin, Total 0.4 0.0 - 1.0 mg/dL [facility] Aspartate Amino Transferase 28 5 - 31 U/L [facility] Comment:Slight Hemolysis.Int erpret result with caution. Alanine Aminotransferase 11 0 - 31 U/L [facility] Total Protein 8.0 6.5 - 8.0 g/dL [facility] Albumin Level 4.4 3.5 - 5.0 g/dL [facility] Alkaline Phosphatase 87 39 - 117 U/L [facility] Blood Venous blood specimen / Unknown 09/03/2024 4:26 PM EST 09/03/2024 6:14 PM EST us Amber Quiroz MD LAB BLOOD ORDERABLES Final Resul t [facility] [address] [place] [phone] * Urinalysis w/reflex microscopic (08/14/2024 11:57 AM EST) Color Urine Yellow [facility] Appearance Urine Clear [facility] PH 7.0 5.0 - 9.0 [facility] Glucose Urine UA Negative Negative mg/dL [facility] Urine Blood Negative Negative [facility] Specific [place] - Urine 1.015 1.005 - 1.025 [facility] Urine Protein Negative Neg-Trace mg/dL [facility] Urine Ketones Negative Negative mg/dL [facility] Nitrite Urine Negative Negative [facility] Leukocyte Esterase Urine Negative Negative [facility] 08/14/2024 11:5 7 AM EST 08/14/2024 12:00 PM EST Narrative [facility] - 08/14/2024 12:07 PM EST Urine, Clean Catch us Generic External Data Provider LAB URINE ORDERAB LES Final Result [facility] [address] [place] [address] [phone] * CT Abdomen Pelvis w/o Contrast (08/14/2024 10:31 AM EST) Anatomical Region Laterality Modality Body, Pelvis, Abdomen Computed T omography 08/14/2024 10:3 1 AM EST Narrative 08/14/2024 11:34 AM EST ? [facility] ?[address] ?[place] [address] ? CT Scan Report ? Signed ? Patient: Marquez,Zelidez ?MR#: [id number] ?? [id number] ? : 1965 ?Acct:[id number] ? Age/Sex: 58 / F ?ADM Date: 08/14/24 ? Loc: HO.ED ? Attending Dr: ? Ordering Physician: Radha Crowder NP ?? Date of Service: 08/14/24 ?? Procedure(s): CT abdomen pelvis wo IV con ?? Accession Number(s): [id number] ? cc: Amber Quiroz MD; Radha Crowder NP ? Report Number: ?? [id number]: Total DLP = ??365.00 mGy-cm ?? EXAMINATION: [...] DD/ 1031 ? TD/TT: 08/14/24 1104 ? Lien Searcher: ? Procedure Note Donotuseinterpreter, Image - 08/14/[address] [address] [address] Scan Report Signed Patient: Heidi Marquez#: [id number] : 1965Acct:[id number] Age/Sex: 58 / FADM Date: 08/14/24 Loc: HO.ED Attending Dr: Ordering Physician: Radha Crowder NP Date of Service: 08/14/24 Procedure(s): CT abdomen pelvis wo IV con Accession Number(s): [id number] cc: Amber Quiroz MD; Radha Crowder NP Report Number: [id number]: Total DLP = 365.00 mGy-cm EXAMINATION: CT [...] 08/14/24 1131 DD/ 1031 TD/TT: 08/14/24 1104 Lien Searcher: [facility] External Provider IMG CT PROCEDURES Final Result * (ABNORMAL) THINPREP TIS PAP AND HPV mRNA E6/E7 WITH REFLEX TO HPV 16,18/45 (07/30/2021 10:17 AM EST) Clinical Information: [facility] COMMENT SEE COMMENT [facility] ON [...] has been evaluated with computer assisted technology. [facility] Sexual Assault Counsellor: SEE COMMENT [facility] Comment: [facility], CT(ASCP) CT screening location: [address] ??[id number] General Categorization: EPITHELIAL CELL ABNORMALITY(A ) [facility] HPV nRNA E6/E7 Not Detected Not Detected [facility] Comment: Methodology: Dope Weigh Operator-Mediated Amplification This assay detects E6/E7 viral messenger RNA (mRNA) from 14 high-risk HPV types (16,18,31,33,35,39,45,51,52,56,58,59,66,68). ? The analytical performance characteristics of this assay have been determined by [employer]. The modifications have not been cleared or approved by the FDA. This assay has been validated pursuant to the CLIA regulations and is used for clinical purposes. ?? For additional information, please refer to http://education.incir.com/faq/MIW132x6 (This link if provided for information/ educational purposes only.) Infection Shift in vaginal geovanny suggestive of bacterial vaginosis. [facility] Interpretation/Res ult: SEE COMMENT(A) [facility] Comment: Atypical Squamous Cells of Undetermined Significance (ASC-US) Rare cells are approaching low grade dysplasia. LMP: NONE GIVEN [facility] SYSTEM PATHOLOGIST: SEE COMMENT FOUND [facility] Comment: Jennifer Branch M.D., Board Certified in Anatomic and Clinical Pathology (electronic signature) Consulting Pathologist [facility] [phone] Prev. BX: NONE GIVEN [facility] Prev. PAP: NONE GIVEN [facility]OUND[facility] ON LAB SYSTEM SOURCE: None given [facility] Statement Of Adequacy: SEE COMMENT [facility] Comment: Satisfactory for evaluation. Endocervical/transformation zone component present. 07/30/2021 10:1 7 AM EST us Saleem Maier MD LAB PATHOLOGY ORDERABLES Final R esult [facility] [address] from Last 3 Months or Most Recently Relevant to Health Maintenance Insurance [facility] C3 DENTAL-[facility] MEDICAID STAND ADULT Care Teams Charge Poster Relationship Specialty Start Date End Date Amber Quiroz MD [address] [place] [phone] PCP - General Family Medicine 07/03/18
--- OUTSIDE RECORDS SUMMARY | 2024-11-02 13:20 | XMS_ITS | Encounter Summary ---
Author Organization [employer] Address [address] [facility] 7[address] [place] [address] Care Team Providers Care Firer Retort Name Role Phone Amber Quiroz MD Primary Care Provider [phone] Reason for Visit * Reason Onset Date Comments Med Refill 06/21/2024 Encounter Details Date Type Department Care Team ([facility] st Contact Info) Description 06/21/2024 Telephone [facility] [address] [place], [place] [phone] Amber Quiroz MD [address] [place], [place] [phone] Med Refill Social History Tobacco Use Types [...] extra strength with no relief. Please advise. NEURO OPHTHALMOLOGIST checked 06/21/24. Last refill of Oxycodone 5mg 11/30/23 qty 12. * Telephone Encounter - Gemma Oliveira - 06/21/2024 10:12 AM EST TC from pt requesting medication refill. Medications needing refill : oxyCODONE (Oxy-IR) 5 MG immediate release capsule To be sent to: [facility] - [place], [place] - [address] [facility] documented in this encounter Plan of Treatment Upcoming Encounters Date Type Department Care Team (Late st Contact Info) Description 11/12/2024 1:30 PM EDT Office Visit [facility] [address] [place] [address] Amber Quiroz MD [address] [place] [phone] documented as of this encounter Visit Diagnoses Not on filedocumented in this encounter Care Teams Firer Retort Relationship Specialty Start Date End Date Amber Quiroz MD [address] [place] [address] PCP - General Family Medicine 07/03/18 documented as of this encounter
--- OUTSIDE RECORDS SUMMARY | 2024-11-02 13:20 | XMS_ITS | Encounter Summary ---
Author Organization [employer] [facility] Address [address] [facility] 7[address] [place] [address] Care Team Providers Care Correction Officer Head Name Role Phone Amber Quiroz MD Primary Care Provider [phone] Encounter Details Date Type Department Care Team (Late st Contact Info) Description 03/22/2023 Orders Only [facility] [address] [place] [address] [phone] Amber Quiroz MD [address] [place] [phone] ASCUS of cervix with negative high risk [...] Office Visit [facility] [address] [place] [address] [phone] Amber Quiroz MD [address] [place] [address] [phone] documented as of this encounter Visit Diagnoses Diagnosis ASCUS of cervix with negative high risk HPV- Primary History of cervical dysplasia Personal history of cervical dysplasia documented in this encounter Care Teams Correction Officer Head Relationship Specialty Start Date End Date Amber Quiroz MD [address] [place] [phone] PCP - General Family Medicine 07/03/18 documented as of this encounter
[2024-11-02 13:26] LABS: MANUAL DIFF FLAG NO
[2024-11-02] MEDS: 0.9 % Sodium Chloride 1,000 ML 999 ML IVCONT (13:28)
[2024-11-02 13:31] LABS: Basophils Percent Auto 0.4 % (0-2); Eosinophils Absolute Auto 0.1 X10*3/uL (0.0-0.4); Eosinophils Percent Auto 1.4 % (0-4); Hematocrit 31.6 % (37.0-47.0); Hemoglobin 10.4 g/dl (12.0-16.0); Imm Gran Abs Auto 0.02 X10*3/uL (0.00-0.03); Imm Gran Pct Auto 0.4 % (0.0-0.4); Lymphocytes Absolute Auto 1.7 X10*3/uL (1.2-4.9); Mean Corpuscular HGB Conc 32.9 g/dl (31.0-35.0); Mean Corpuscular Hemoglobin 27.4 pg (27.0-33.0); Mean Corpuscular Volume 83.4 fL (80.0-98.0); Mean Platelet Volume 9.5 fL (9.4-12.3); Monocytes Absolute Auto 0.3 X10*3/uL (0.1-1.2); Monocytes Percent Auto 6.1 % (2-11); Neutrophils Absolute Auto 3.4 x10*3/uL (2.0-8.3); Neutrophils Percent Auto 61.7 % (45-73); Platelet Count 265 X10*3/uL (160-400); Red Blood Count 3.79 X10*6/uL (4.20-5.50); Red Cell Distribution Width 15.2 % (11.0-16.0); White Blood Count 5.5 X10*3/uL (4.8-10.8)
[2024-11-02] MEDS: ondansetron HCL 4 MG/2 ML VIAL IVPUSH (13:31)
[2024-11-02] MEDS: Morphine Sulfate 4 MG/ML CARTRIDGE IVPUSH ×2 (13:31→14:18)
[2024-11-02 13:43] LABS: Alanine Aminotransferase 27 U/L (0-31); Albumin Level 3.9 g/dL (3.5-5.0); Alkaline Phosphatase 91 U/L (39-117); Anion Gap 11 (12-20); Aspartate Amino Transferase 29 U/L (5-31); Bilirubin Total 0.2 mg/dL (0.0-1.0); Blood Urea Nitrogen 16 mg/dL (9-16); Calcium 8.7 mg/dL (8.4-10.2); Carbon Dioxide 23 mmol/L (22-29); Chloride 115 mmol/L (96-108); Creatinine Clr Calc Pharmacy 104.9; Estimated Glomerular Filt Rate > 60; Glucose Random 111 mg/dL (60-115); Potassium 3.7 mmol/L (3.3-5.1); Sodium 145 mmol/L (135-145); Total Protein 6.5 g/dL (6.5-8.0)
--- NOTE | 2024-11-02 13:55 | PC.NURSE ---
Informed MD that pt. is requesting more pain medication.
[2024-11-02 14:40] LABS: Appearance Urine Clear; Color Urine Yellow; Glucose Urine UA >=1000 mg/dL (Negative); Leukocyte Esterase Urine Trace (Negative); Nitrite Urine Negative (Negative); Specific Gravity - Urine 1.015 (1.005-1.025); UMIC TRIGGER UACC YES; Urine Blood Large (3+) (Negative); Urine Ketones Negative (Negative); Urine Protein 100 (2+) mg/dL (Neg-Trace)
[2024-11-02 14:41] LABS: Bacteria Urine None Seen (None Seen); Hyaline Casts Urine 0-2 /LPF (0-2); RBC Urine >20 /HPF (0-2); Squamous Epithelial Cell Urine 0-2 /HPF (0-2); WBC Urine 0-5 /HPF (0-5)
== END 2024-11-02 15:27 | disposition home or self-care (01) ==
PROVIDERS: Emergency Provider Emergency Medicine; PCP Family Medicine
DX: R31.9 Hematuria, unspecified (principal); R10.9 Unspecified abdominal pain; I10 Essential (primary) hypertension; E78.00 Pure hypercholesterolemia, unspecified; F17.200 Nicotine dependence, unspecified, uncomplicated
CPT/HCPCS: 36415; 74176; 80053; 81001; 85025; 96361; 96374; 96375; 96376; 99284; J2270; J2405

== ENCOUNTER → 2024-11-02 12:59 | Outpatient (BNV) | payer MEDICAID, SELFPAY | PROVIDERS: Emergency Provider Emergency Medicine; PCP Family Medicine; Visit Provider Radiology Diagnostic Radiology | DX: D17.71 Benign lipomatous neoplasm of kidney (principal) | CPT/HCPCS: 74176 ==

== ENCOUNTER 2024-11-11 10:45 | Emergency (ER) | payer MEDICAID, SELFPAY ==
--- NOTE | ~2024-11-11 | CT_ITS ---
EXAMINATION: CT ABDOMEN AND PELVIS WITHOUT CONTRAST CLINICAL INFORMATION: Abdominal pain. COMPARISON: Numerous priors, most recently 11/02/2024. TECHNIQUE: Multidetector volumetric imaging was performed from the superior aspect of the liver through the pubic symphysis. Sagittal and coronal reformatted images were obtained on the technologist's workstation. This CT examination was performed using dose optimization techniques as appropriate, variously including the following: *Automated exposure control *Adjustment of mA and/or kV according to patient size (this includes techniques or standardized protocols for targeted exams where dose is matched to indication/reason for exam; i.e. extremities or head) *Use of iterative reconstruction technique FINDINGS: LUNG BASES: The visualized lung bases are unremarkable. There are no effusions. Heart size is normal. LIVER, GALLBLADDER, AND BILIARY TREE: The liver is normal in size, shape, and attenuation. No focal hepatic lesion or biliary ductal dilatation is present. The gallbladder is unremarkable with no evidence of radiopaque gallstones, gallbladder wall thickening, or obvious pericholecystic inflammatory changes. PANCREAS: Unremarkable. SPLEEN: Unremarkable. ADRENAL GLANDS: Unremarkable. KIDNEYS AND URETERS: -Right kidney demonstrates approximately four 2-3 mm calculi, nonobstructing. No hydronephrosis or hydroureter. 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 -Left kidney demonstrates approximately five 2-3 mm calculi, nonobstructing. No hydronephrosis or hydroureter. There is no mass lesion identified. -There is a 3 mm calculus present in the most distal right ureter, which appears nonobstructing (series 3, image 64). This was not present on the prior exam. BLADDER: Normal in appearance. No wall thickening, stone, or mass identified. GASTROINTESTINAL TRACT: -The stomach is distended with a recent meal. -Normal duodenum and small bowel. -The large bowel is unremarkable. The appendix is unremarkable. -No rectal abnormality. ABDOMINAL WALL: No significant hernia is appreciated. LYMPH NODES: -No abnormal lymphadenopathy present. VASCULAR: -Mild vascular calcifications. No aortic aneurysm. PELVIC VISCERA: -Uterus and adnexal structures appear normal. OSSEOUS STRUCTURES: -No acute findings. There is a hemangioma in the L3 vertebral body. Mild degenerative facet changes present L4-S1. -Mild degenerative hip joint changes bilaterally. CT/CT abdomen pelvis wo IV con IMPRESSION: 1. There are small bilateral nonobstructing renal calculi without evidence of hydronephrosis or urological obstruction. 2. Normal urinary bladder. 3. Additional ancillary findings as discussed in the body of the report. Electronically signed by: Eliezer Whyte MD 11/11/2024 11:52 AM EDT
[2024-11-11 11:01] VITALS: BP 184/92; PULSE 98; O2SAT 98
[2024-11-11 11:10] VITALS: BP 162/89; PULSE 87; RESP 18; TEMP 37.3; O2SAT 99; BMI 28.2
--- NOTE | 2024-11-11 11:16 | ED_ITS ---
HPI - Abdominal Pain General Chief Complaint: Abdominal Pain Stated Complaint: ABD/LOW BACK PAIN,NAUSEA/VOMTING PER EMS Time Seen by Provider: 11/11/24 11:06 Source: patient Mode of arrival: ambulatory Limitations: no limitations History of Present Illness ED Provider: Dr. Malik HPI narrative: 58 year old female past medical history chronic abdominal and flank pain recurrent UTI's and kidney stones who presents to the ER for acute flank pain and crying about bilateral pain and hematuria. She states she has nothing at home to take for her pain either. Denies any falls or injuries. Related Data Home Medications ?Medication ?Instructions ?Recorded ?Confirmed albuterol sulfate 90 mcg/actuation 2 puff PO Q4-6H PRN dyspnea 11/26/20 11/26/20 aerosol inhaler (ProAir HFA) amlodipine 10 mg tablet 1 tab PO DAILY 11/26/20 11/26/20 ascorbic acid (vitamin C) 250 mg 1 tab PO BID 11/26/20 11/26/20 tablet atorvastatin 10 mg tablet 1 tab PO DAILY 11/26/20 11/26/20 clonidine HCl 0.2 mg tablet 1 tab PO BID PRN panic attack 11/26/20 11/26/20 cyanocobalamin (vitamin B-12) 500 1 tab PO DAILY 11/26/20 11/26/20 mcg tablet docusate sodium 100 mg capsule 1 - 2 cap PO BEDTIME PRN 11/26/20 11/26/20 constipation fluoxetine 20 mg capsule 3 cap PO QAM 11/26/20 11/26/20 gabapentin 100 mg capsule 1 cap PO TID PRN anxiety 11/26/20 11/26/20 gabapentin 400 mg capsule 1 cap PO BEDTIME 11/26/20 11/26/20 loratadine 10 mg tablet 1 tab PO DAILY 11/26/20 11/26/20 loratadine 10 mg tablet 1 tab PO DAILY 11/26/20 11/26/20 mirtazapine 30 mg tablet 1 tab PO BEDTIME 11/26/20 11/26/20 mirtazapine 30 mg tablet 1 tab PO BEDTIME 11/26/20 11/26/20 ondansetron HCl 4 mg tablet 1 tab PO Q8H PRN nausea 11/26/20 11/26/20 polyvinyl alcohol 1.4 % eye drops 1 drp ophthalmic (eye) TID 11/26/20 11/26/20 (Artificial Tears (polyvinyl alcohol)) quetiapine 25 mg tablet 1 tab PO BID PRN anxiety 11/26/20 11/26/20 topiramate 25 mg tablet 1 tab PO BID 11/26/20 11/26/20 zolpidem 10 mg tablet 1 tab PO BEDTIME PRN insomnia 11/26/20 11/26/20 Previous Rx's ?Medication ?Instructions ?Recorded tramadol 50 mg tablet 50 mg PO Q8H PRN pain #3 tabs 11/26/20 nitrofurantoin 100 mg PO BID #14 caps 05/26/21 monohydrate/macrocrystals 100 mg capsule (Macrobid) phenazopyridine 100 mg tablet 100 mg PO TID PRN pain 6 doses #6 05/26/21 (Pyridium) tabs cefuroxime axetil 250 mg tablet 250 mg PO BID 7 days #14 tabs 07/15/21 morphine 15 mg immediate release 15 mg PO BID PRN pain #8 tabs 07/15/21 tablet docusate sodium 100 mg capsule 100 mg PO BID #20 caps 07/21/21 (Colace) sennosides 8.6 mg tablet (senna) 8.6 mg PO BEDTIME #14 tabs 07/21/21 docusate sodium 100 mg capsule 100 mg PO BID PRN Constipation #14 11/23/21 (Colace) caps nitrofurantoin 100 mg PO BID uti 7 days #14 caps 11/23/21 monohydrate/macrocrystals 100 mg capsule (Macrobid) ondansetron 4 mg disintegrating 4 mg PO Q6H nausea/vomiting #14 11/23/21 tablet tabs cephalexin 500 mg capsule 500 mg PO Q8H 7 days #21 caps 08/02/22 ondansetron 4 mg disintegrating 4 mg PO Q8H PRN nausea and 03/02/23 tablet vomiting #10 tabs phenazopyridine 200 mg tablet 200 mg PO TID PRN pain 6 doses #6 03/02/23 (Pyridium) tabs acetaminophen 325 mg capsule 650 mg (2 x 325 mg) PO Q6H PRN 04/01/24 (Tylenol) pain #30 caps cefdinir 300 mg capsule 300 mg PO BID 5 days #10 caps 04/01/24 cephalexin 500 mg capsule 500 mg PO BID #14 caps 07/15/24 ondansetron HCl 4 mg tablet 4 mg PO Q8H PRN nausea and 07/15/24 vomiting #10 tabs oxycodone 5 mg tablet 5 mg PO Q6H PRN pain, moderate #10 07/15/24 tabs tamsulosin 0.4 mg capsule (Flomax) 0.4 mg PO DAILY #6 caps 07/15/24 dicyclomine 10 mg capsule 10 mg PO BID #14 caps 08/14/24 ondansetron 4 mg disintegrating 4 mg PO Q8H PRN nausea and 08/14/24 tablet vomiting #10 tabs cefuroxime axetil 250 mg tablet 250 mg PO BID 7 days #14 tabs 10/17/24 ondansetron 4 mg disintegrating 4 mg PO Q8H PRN nausea and 10/17/24 tablet vomiting #7 tabs oxycodone 5 mg tablet 5 mg PO Q8H PRN severe pain (scale 10/17/24 score 7-10) #9 tabs tamsulosin 0.4 mg capsule (Flomax) 0.4 mg PO BEDTIME #14 caps 10/17/24 Allergies Allergy/AdvReac Type Severity Reaction Status Date / Time aspirin [ASA] Allergy Intermediate RASH, Verified 11/11/24 11:11 nausea and vomiting ibuprofen [IBUPROFEN] Allergy Intermediate RASH Verified 11/02/24 12:59 nicotine Allergy Intermediate RASH FROM Verified 11/02/24 12:59 NICOTINE PATCH, nausea and vomiting ketorolac [From TORADOL] Allergy Mild RAPID HR Verified 11/02/24 12:59 AND HIVES haloperidol [From Haldol] Allergy Anaphylaxis Verified 11/02/24 12:59 metoclopramide [From Reglan] Allergy Unknown Verified 11/02/24 12:59 Review of Systems Review of Systems Review of systems: General: Patient denies any fever chills recent illness or falls Musculoskeletal: Denies back pain or body aches or other injuries HEENT: denies headache, runny nose, ear pain Respiratory: denies shortness of breath, cough Cardiovascular: no chest pain or palpitations : denies dysuria, frequency Abdomen: no nausea vomiting denies abdominal pain Extremities: no swelling, no pain Skin: no diaphoresis Yes all other systems are reviewed and are negative PMFSH Past Medical History Medical History delivery delivered HTN (hypertension) Anemia Hypercholesteremia DVT (deep venous thrombosis) Kidney stones Surgical History Total knee replacement status Social History Social History Unable to assess alcohol history related to: Unknown Alcohol intake: never Patient Tobacco Use Status: Current everyday Tobacco user Substance Use Type: Prescription Drugs Advance Directives: No Advance Directives Information Provided: Yes Physical Exam ED Vital Signs: Vital Signs - 24 hr 11/11/24 11:10 Temperature 99.2 F Pulse Rate 87 Respiratory Rate 18 Blood Pressure 162/89 H Pulse Oximetry 99 Oxygen Delivery Method Room Air BMI result Body Mass Index 28.2 General: Well-appearing well-nourished in no signs of distress HEENT: Normocephalic atraumatic Neck: No signs of JVD, no masses no tenderness or lymphadenopathy Cardiovascular: Regular rate and rhythm Respiratory: Clear to auscultation bilaterally Abdomen: Soft nontender no masses no CVA tenderness Extremities: Normal pedal pulses no signs of edema Skin: Dry warm no rashes Back: No tenderness full ROM Course Course Course Narrative: CT is negative for anything acute labs are so far unremarkable we will give the patient over for urinalysis. Reevaluation(s) Reevaluation #1: with negative imaging and labs and normal vitals I do think this is likely chronic pain especially after reviewing her multiple visits. She is demanding more pain medications to give us a urine sample. I explained my concerns as I would feel okay giving some droperidol benadryl but I don't think IV morphine makes sense in a patient who is going home and has chronic pain. I would not feel comfortable sending home on morphine either so I will continue to wait for the urine. This took 15 minutes patient was noted to be manipulative and talking in circles about the pain medications. I did reassure her that we attempted to find something concerning and the last thing we need is her urine which she continues to tell me she will give me. Reevaluation #2: Urine again shows hematuria. Patient had no adverse reaction to the droperidol. I will send home with Urology follow up. Medical Decision Making Medical Decision Making MDM Narrative: I will send for CT and labs urine and treat with tylenol morpine droperidol benadryl and reassess. Differential Diagnosis Differential Diagnoses: The differential diagnosis associated with the presentation includes Kidney stone chronic pain, UTI, pyelo Admission/Observation Consideration of admission/observation: Escalation of care including admission/observation considered Lab Data [facility] Lab Attestation statement: I reviewed the patient's lab results. 11/11/24 11:17 11/11/24 11:17 Labs: Lab Results 11/11/24 11/11/24 Range/Units 11:17 12:56 WBC 5.9 (4.8-10.8) X10*3/uL RBC 3.87 L (4.20-5.50) X10*6/uL Hgb 10.5 L (12.0-16.0) g/dl Hct 33.5 L (37.0-47.0) % MCV 86.6 (80.0-98.0) fL MCH 27.1 (27.0-33.0) pg MCHC 31.3 (31.0-35.0) g/dl RDW 15.3 (11.0-16.0) % Plt Count 255 (160-400) X10*3/uL MPV 9.5 (9.4-12.3) fL Immature Gran % (Auto) 0.2 (0.0-0.4) % Neut % (Auto) 54.7 (45-73) % Lymph % (Auto) 36.4 (20-40) % Milam % (Auto) 6.6 (2-11) % Eos % (Auto) 1.9 (0-4) % Baso % (Auto) 0.2 (0-2) % Lymph # (Auto) 2.2 (1.2-4.9) X10*3/uL Milam # (Auto) 0.4 (0.1-1.2) X10*3/uL Eos # (Auto) 0.1 (0.0-0.4) X10*3/uL Baso # (Auto) 0.0 (0.0-0.2) X10*3/uL Abs Immat Gran (auto) 0.01 (0.00-0.03) X10*3/uL Absolute Neuts (auto) 3.2 (2.0-8.3) x10*3/uL Absolute Nucleated RBC 0.000 (0.0-0.012) X10*3/uL Nucleated RBC % (auto) 0.0 (0.0-0.2) /100WBC Sodium 141 (135-145) mmol/L Potassium 3.6 (3.3-5.1) mmol/L Chloride 109 H (96-108) mmol/L Carbon Dioxide 25 (22-29) mmol/L Anion Gap 11 L (12-20) BUN 15 (9-16) mg/dL Creatinine 0.55 (0.5-1.4) mg/dL Estim Creat Clear Calc 97.0 Estimated GFR > 60 Random Glucose 139 H (60-115) mg/dL Calcium 8.6 (8.4-10.2) mg/dL Total Bilirubin 0.1 (0.0-1.0) mg/dL Direct Bilirubin < 0.2 (0.0-0.5) mg/dL AST 25 (5-31) U/L ALT 22 (0-31) U/L Alkaline Phosphatase 121 H (39-117) U/L Total Protein 6.5 (6.5-8.0) g/dL Albumin 3.8 (3.5-5.0) g/dL Lipase 23 (8-78) U/L Urine Color DK YELLOW Urine Appearance Clear Urine pH 5.0 (5.0-9.0) Ur Specific [place] 1.010 (1.005-1.025) Urine Protein 300 (3+) H (Neg-Trace) mg/dL Urine Glucose (UA) Negative (Negative) mg/dL Urine Ketones Negative (Negative) mg/dL Urine Blood Large (3+) H (Negative) Urine Nitrite Negative (Negative) Ur Leukocyte Esterase Negative (Negative) Urine RBC >20 H (0-2) /HPF Urine WBC 0-5 (0-5) /HPF Ur Squamous Epith Cells 0-2 (0-2) /HPF Urine Bacteria Trace (None Seen) Hyaline Casts 0-2 (0-2) /LPF Independent Interpretation I performed an independent interpretation of an: CT Scan External Record Review External record reviewed: Inpatient record, Office record and Outpatient record Medications Administered Discontinued Medications Generic Name Dose Route Start Last Admin Trade Name Freq PRN Reason Stop Dose Admin Diphenhydramine HCl 25 mg 11/11/24 11:13 11/11/24 11:21 Diphenhydramine Hcl 50 Mg/Ml Vial IVPUSH 11/11/24 11:14 25 mg ONCE ONE Administration Diphenhydramine HCl 12.5 mg 11/11/24 12:15 11/11/24 12:27 Diphenhydramine Hcl 50 Mg/Ml Vial IVPUSH 11/11/24 12:16 12.5 mg ONCE ONE Administration Droperidol 1.25 mg 11/11/24 11:13 11/11/24 11:30 Droperidol 5 Mg/2 Ml Vial IM 11/11/24 11:14 Not Given ONCE ONE Droperidol 1.25 mg 11/11/24 12:15 11/11/24 12:28 Droperidol 5 Mg/2 Ml Vial IVPUSH 11/11/24 12:16 1.25 mg ONCE ONE Administration Sodium Chloride 1,000 mls @ 999 mls/hr 11/11/24 11:15 11/11/24 12:28 Ns IV 11/11/24 12:15 Infused .Q1H1M ADELA Infusion Morphine Sulfate 4 mg 11/11/24 11:13 11/11/24 11:22 Morphine Sulfate 4 Mg/Ml Cartridge IVPUSH 11/11/24 11:14 4 mg ONCE ONE Administration Protocol Ondansetron HCl 4 mg 11/11/24 11:28 11/11/24 11:39 Ondansetron Hcl 4 Mg/2 Ml Vial IVPUSH 11/11/24 11:29 4 mg ONCE ONE Administration Discharge Plan Discharge Clinical Impression: Hematuria, Chronic pain Patient Disposition: Home, Self-Care Instructions: Cancer Pain (ED), Hematuria (ED) Additional Instructions: You were seen today for acute on chronic pain and hematuria. You had labs urine and CT scan done. I do feel this is a chronic pain issue and you need to talk to your doctor or a pain specialist otherwise please follow up with your Urologist. Prescriptions: No Action quetiapine 25 mg tablet 1 tab PO BID PRN (Reason: anxiety) atorvastatin 10 mg tablet 1 tab PO DAILY polyvinyl alcohol [Artificial Tears (polyvin alc)] 1.4 % drops 1 drp ophthalmic (eye) TID ondansetron HCl 4 mg tablet 1 tab PO Q8H PRN (Reason: nausea) gabapentin 400 mg capsule 1 cap PO BEDTIME topiramate 25 mg tablet 1 tab PO BID clonidine HCl 0.2 mg tablet 1 tab PO BID PRN (Reason: panic attack) cyanocobalamin (vitamin B-12) 500 mcg tablet 1 tab PO DAILY ascorbic acid (vitamin C) 250 mg tablet 1 tab PO BID amlodipine 10 mg tablet 1 tab PO DAILY mirtazapine 30 mg tablet 1 tab PO BEDTIME mirtazapine 30 mg tablet 1 tab PO BEDTIME docusate sodium 100 mg capsule 1 - 2 cap PO BEDTIME PRN (Reason: constipation) gabapentin 100 mg capsule 1 cap PO TID PRN (Reason: anxiety) zolpidem 10 mg tablet 1 tab PO BEDTIME PRN (Reason: insomnia) albuterol sulfate [ProAir HFA] 90 mcg/actuation HFA aerosol inhaler 2 puff PO Q4-6H PRN (Reason: dyspnea) fluoxetine 20 mg capsule 3 cap PO QAM loratadine 10 mg tablet 1 tab PO DAILY loratadine 10 mg tablet 1 tab PO DAILY tramadol 50 mg tablet 50 mg PO Q8H PRN (Reason: pain) Qty: 3 0RF morphine 15 mg tablet 15 mg PO BID PRN (Reason: pain) Qty: 8 0RF cefuroxime axetil 250 mg tablet 250 mg PO BID 7 Days Qty: 14 0RF nitrofurantoin monohyd/m-cryst [Macrobid] 100 mg capsule 100 mg PO BID Qty: 14 0RF Rx Instructions: must administer with a meal/food phenazopyridine [Pyridium] 100 mg tablet 100 mg PO TID PRN (Reason: pain) Qty: 6 0RF sennosides [senna] 8.6 mg tablet 8.6 mg PO BEDTIME Qty: 14 0RF docusate sodium [Colace] 100 mg capsule 100 mg PO BID Qty: 20 0RF docusate sodium [Colace] 100 mg capsule 100 mg PO BID PRN (Reason: Constipation) Qty: 14 0RF ondansetron 4 mg tablet,disintegrating 4 mg PO Q6H Qty: 14 0RF nitrofurantoin monohyd/m-cryst [Macrobid] 100 mg capsule 100 mg PO BID 7 Days Qty: 14 0RF Rx Instructions: must administer with a meal/food cephalexin 500 mg capsule 500 mg PO Q8H 7 Days Qty: 21 0RF phenazopyridine [Pyridium] 200 mg tablet 200 mg PO TID PRN (Reason: pain) Qty: 6 0RF ondansetron 4 mg tablet,disintegrating 4 mg PO Q8H PRN (Reason: nausea and vomiting) Qty: 10 0RF cephalexin 500 mg capsule 500 mg PO BID Qty: 14 0RF ondansetron HCl 4 mg tablet 4 mg PO Q8H PRN (Reason: nausea and vomiting) Qty: 10 0RF tamsulosin [Flomax] 0.4 mg capsule 0.4 mg PO DAILY Qty: 6 0RF oxycodone 5 mg tablet 5 mg PO Q6H PRN (Reason: pain, moderate) Qty: 10 0RF Rx Instructions: Partial Fill upon patient request. ondansetron 4 mg tablet,disintegrating 4 mg PO Q8H PRN (Reason: nausea and vomiting) Qty: 10 0RF dicyclomine 10 mg capsule 10 mg PO BID Qty: 14 0RF cefuroxime axetil 250 mg tablet 250 mg PO BID 7 Days Qty: 14 0RF ondansetron 4 mg tablet,disintegrating 4 mg PO Q8H PRN (Reason: nausea and vomiting) Qty: 7 0RF tamsulosin [Flomax] 0.4 mg capsule 0.4 mg PO BEDTIME Qty: 14 0RF oxycodone 5 mg tablet 5 mg PO Q8H PRN (Reason: severe pain (scale score 7-10)) Qty: 9 0RF Rx Instructions: Partial Fill upon patient request. cefdinir 300 mg capsule 300 mg PO BID 5 Days Qty: 10 0RF acetaminophen [Tylenol] 325 mg capsule 650 mg PO Q6H PRN (Reason: pain) Qty: 30 0RF Print Language: Nepali
[2024-11-11 11:21] LABS: MANUAL DIFF FLAG NO
[2024-11-11] MEDS: diphenhydrAMINE HCL 50 MG/ML VIAL 25 MG IVPUSH (11:21)
[2024-11-11] MEDS: Morphine Sulfate 4 MG/ML CARTRIDGE IVPUSH (11:22)
[2024-11-11] MEDS: 0.9 % Sodium Chloride 1,000 ML 999 ML IV (11:26)
[2024-11-11 11:27] LABS: Basophils Percent Auto 0.2 % (0-2); Eosinophils Absolute Auto 0.1 X10*3/uL (0.0-0.4); Eosinophils Percent Auto 1.9 % (0-4); Hematocrit 33.5 % (37.0-47.0); Hemoglobin 10.5 g/dl (12.0-16.0); Imm Gran Abs Auto 0.01 X10*3/uL (0.00-0.03); Imm Gran Pct Auto 0.2 % (0.0-0.4); Lymphocytes Absolute Auto 2.2 X10*3/uL (1.2-4.9); Lymphocytes Percent Auto 36.4 % (20-40); Mean Corpuscular HGB Conc 31.3 g/dl (31.0-35.0); Mean Corpuscular Hemoglobin 27.1 pg (27.0-33.0); Mean Corpuscular Volume 86.6 fL (80.0-98.0); Mean Platelet Volume 9.5 fL (9.4-12.3); Monocytes Absolute Auto 0.4 X10*3/uL (0.1-1.2); Monocytes Percent Auto 6.6 % (2-11); Neutrophils Absolute Auto 3.2 x10*3/uL (2.0-8.3); Neutrophils Percent Auto 54.7 % (45-73); Platelet Count 255 X10*3/uL (160-400); Red Blood Count 3.87 X10*6/uL (4.20-5.50); Red Cell Distribution Width 15.3 % (11.0-16.0); White Blood Count 5.9 X10*3/uL (4.8-10.8)
[2024-11-11] MEDS: ondansetron HCL 4 MG/2 ML VIAL IVPUSH (11:39)
[2024-11-11 11:56] LABS: Alanine Aminotransferase 22 U/L (0-31); Albumin Level 3.8 g/dL (3.5-5.0); Anion Gap 11 (12-20); Aspartate Amino Transferase 25 U/L (5-31); Bilirubin Direct < 0.2 mg/dL (0.0-0.5); Bilirubin Total 0.1 mg/dL (0.0-1.0); Blood Urea Nitrogen 15 mg/dL (9-16); Calcium 8.6 mg/dL (8.4-10.2); Carbon Dioxide 25 mmol/L (22-29); Chloride 109 mmol/L (96-108); Estimated Glomerular Filt Rate > 60; Glucose Random 139 mg/dL (60-115); Lipase 23 U/L (8-78); Potassium 3.6 mmol/L (3.3-5.1); Sodium 141 mmol/L (135-145); Total Protein 6.5 g/dL (6.5-8.0)
--- OUTSIDE RECORDS SUMMARY | 2024-11-11 12:11 | XMS_ITS | Encounter Summary ---
Author Organization [employer] Address [address] [facility] 7t [place] [address] Care Team Providers Care Zigzag Stitcher Name Role Phone Amber Quiroz MD Primary Care Provider [phone] Reason for Visit * Reason Comments Care Coordination PT1 Encounter Details Date Type Department Care Team (Latest Contact Info) Description 11/08/2024 Patient Outreach [facility] [address] [place], [place] [phone] Amber Quiroz MD [address] [place], [place] [phone] Care Coordination (PT1) Social History Tobacco Use Types Packs/Day Years [...] t he electric, gas, oil or water [employer] threatened to shut off services in your [...] encounter Progress Notes * Roxanne Dsouza - 11/08/2024 9:50 AM EDT CHW Roxanne Dsouza scheduled PT1 for patients appt for 11/12/[address] Quiroz. Patient will be picked up at 1pm. CHW will remind patient of appt. documented in this encounter Plan of Treatment Upcoming Encounters Date Type Department Care Team (Late st Contact Info) Description 11/12/2024 1:30 PM EDT Office Visit [facility] [address] [place] [address] Amber Quiroz MD [address] [place] [address] documented as of this encounter Visit Diagnoses Not on filedocumented in this encounter Care Teams Zigzag Stitcher Relationship Specialty Start Date End Date Amber Quiroz MD [address] [place] [address] PCP - General Family Medicine 07/03/18 documented as of this encounter
--- OUTSIDE RECORDS SUMMARY | 2024-11-11 12:11 | XMS_ITS | Encounter Summary ---
Author Organization [employer] Address [address] [facility] [address] [place] [address] Care Team Providers Care Vice President Of Product Marketing Name Role Phone Amber Quiroz MD Primary Care Provider [phone] Encounter Details Date Type Department Care Team ([facility] st Contact Info) Description 11/24/2023 Telephone [facility] [address] [place], [place] [phone] Amber Quiroz MD [address] [place], [place] [phone] Social History Tobacco Use Types Packs/Day Years [...] Description 11/12/2024 1:30 PM EDT Office Visit [facility] [address] [place] [address] Amber Quiroz MD [address] [place] [address] documented as of this encounter Visit Diagnoses Not on filedocumented in this encounter Care Teams Vice President Of Product Marketing Relationship Specialty Start Date End Date Amber Quiroz MD [address] [place] [address] PCP - General Family Medicine 07/03/18 documented as of this encounter
--- OUTSIDE RECORDS SUMMARY | 2024-11-11 12:11 | XMS_ITS | Encounter Summary ---
Author Organization [employer] Address [address] [facility] [address] [place] [address] Care Team Providers Care Seat Builder Name Role Phone Amber Quiroz MD Primary Care Provider Reason for Visit * Reason Comments Med Refill Encounter Details Date Type Department Care Team (Late st Contact Info) Description 04/26/2023 Refill [facility] [address] [place] [address] [phone] Amber Quiroz MD [address] [place] [address] [phone] Nausea Social History Tobacco Use Types Packs/Day [...] 1:30 PM EDT Office Visit [facility] [address] [place] [address] [phone] Amber Quiroz MD [address] [place] [address] [phone] documented as of this encounter Visit Diagnoses Diagnosis Nausea Nausea alone documented in this encounter Care Teams Seat Builder Relationship Specialty Start Date End Date Amber Quiroz MD [address] [place] [address] PCP - General Family Medicine 07/03/18 documented as of this encounter
--- OUTSIDE RECORDS SUMMARY | 2024-11-11 12:11 | XMS_ITS | Encounter Summary ---
Author Organization [employer] Address [address] [facility] 7 [place] [address] Care Team Providers Care Building Services Supervisor Name Role Phone Amber Quiroz MD Primary Care Provider [phone] Encounter Details Date Type Department Care Team (Late st Contact Info) Description 11/16/2022 Abstract [facility] [address] [place] [address] [phone] Amber Quiroz MD [address] [place] [phone] Social History Tobacco Use Types Packs/Day Years [...] 11/12/2024 1:30 PM EDT Office Visit [facility] [address] [place] [address] [phone] Amber Quiroz MD [address] [place] [address] [phone] documented as of this encounter Visit Diagnoses Not on filedocumented in this encounter Care Teams Building Services Supervisor Relationship Specialty Start Date End Date Amber Quiroz MD [address] [place] [phone] PCP - General Family Medicine 07/03/18 documented as of this encounter
--- OUTSIDE RECORDS SUMMARY | 2024-11-11 12:11 | XMS_ITS | Clinical Summary ---
Author Organization [employer] Address [address] [facility] 7t [place] [address] Care Team Providers Care Residential Sales Representative Name Role Phone Amber Quiroz MD Primary Care Provider [phone] Allergies Active Allergy Reactions Criticality Noted Date Comments Acetaminophen 04/24/2023 Aspirin Rash Low 03/02/2023 Haloperidol 04/24/2023 Ibuprofen Rash Low 04/22/2013 Iodinated Contrast Media Hives 03/02/2023 Iodine Rash Low 03/02/2023 Ketorolac Tromethamine Other 03/02/2023 Increased heart rate Metoclopramide 04/24/2023 Nicotine Rash Low 03/02/2023 Nicotine patch Medications FLUoxetine (PROzac) 20 MG capsule TOME ELIZABETH C PSULAS POR V A ORAL TODOS LOS D EN LA AR RICKY 023 Active gabapentin (Neurontin) 100 MG capsule TOME BELINDA C PSULA TODOS LOS D EN LA AR RICKY 023 Active gabapentin (Neurontin) 400 MG [...] TODOS LOS D AL ACOSTARSE 025 Active gabapentin (Neurontin) 600 MG tablet TOME 1 TABLETA POR V A ORAL ELIZABETH VECES AL D A 025 Active Melatonin 10 MG sublingual tablet TOME 1 TABLETA POR V A ORAL TODOS LOS D AL ACOSTARSE 025 Active ARIPiprazole (Abilify) 2 MG tablet Take 2 mg by mouth. 025 Active traMADol (Ultram) 50 MG tabletIndications :Nephrolithiasis TAKE 1 TABLET BY MOUTH EVERY 8 HOURS NEEDED FOR SEVERE PAIN 15 tablet 025 Active ondansetron (Zofran) 4 MG tabletIndications :Nausea TAKE 1 TABLET BY MOUTH EVERY 8 HOURS NEEDED FOR NAUSEA AND VOMITING 30 tablet 025 Active albuterol (Ventolin HFA) 108 (90 Base) MCG/ACT inhalerIndication s:Moderate persistent asthma without complication INHALE 2 PUFFS BY MOUTH EVERY 4 TO 6 HOURS OR DIFFICULTY BREATHING. DO NOT EXCEED FOUR TIMES DAILY. 18 g 025 Active albuterol (Ventolin HFA) 108 (90 [...] severe pain. 15 tablet 025 2024 Discontinued amoxicillin (Amoxil) 500 MG capsule Take 1 capsule (500 mg) by mouth every 8 (eight) hours for 7 days. 21 capsule 025 2024 acetaminophen (Tylenol 8 Hour) 650 MG ER tablet Take 1 tablet (650 mg) by mouth every 8 (eight) hours if needed for mild pain for up to 7 days. Do not crush, chew, or split. 21 tablet 2024 Active Problems Patient Care Coordination No [...] Encounters Date Type Department Care Team Description 11/11/2024 Telephone [facility] MEDICINE [address] [place] [address] Amber Quiroz MD CHART PREP 11/11/2024 Telephone [facility] CHC ADULT DENTAL [address] [place], [place] [phone] Francisco Mohan DMD status of oral surgery appt 11/08/2024 Patient Outreach [facility] [address] [place] [address] Amber Quiroz MD Care Coordination (PT1) 11/06/2024 Patient Outreach [address] [address] Roxanne Dsouza Care Coordination (SDOH) 11/05/[address] [address] Amber Quiroz MD Care Management (C3CM- initial assessment/ enrollment.) 11/04/2024 Patient Outreach [address] [address] Amber Quiroz MD Care Coordination (CM/CHW appt reminder) 11/04/2024 Patient Outreach [address] [address] Amber Quiroz MD 11/04/2024 Patient Outreach [address] [address] Amber Quiroz MD 11/04/2024 Patient Outreach [address] [address] Amber Quiroz MD 11/02/2024 Orders Only GENERIC EXTERNAL DATA DEPARTMENT Provider, Generic External Data 11/01/2024 2:00 PM EDT Office Visit [facility] OPTOMETRY [address] [place] [address] Bernardo, Comfort, OD 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); White without pressure of peripheral retina of both eyes; Hyperopia of both eyes 11/01/2024 Travel 10/30/2024 Refill [facility] [address] [place] [address] Amber Quiroz MD Moderate persistent asthma without complication 10/30/[address] [address] Charleen Latif MD Nausea; Moderate persistent asthma without complication 10/30/2024 Refill [facility] [address] [place], [place] [phone] Dilcia Henry ANP Nephrolithiasis 10/30/2024 Telephone [facility] [address] [place] [address] Amber Quiroz MD Med Refill 10/28/2024 Telephone [facility] [address] [place] [address] Rachelle Lucero, DOROTA 10/25/2024 10:00 AM EDT Office Visit [facility] ADULT DENTAL [address] [place] [address] Boom Franklin DDS Pain 10/24/2024 10:45 AM EDT Immunization [address] [address] Allison Montgomery RN Encounter for immunization 10/24/[address] [address] Amber Quiroz MD 10/18/2024 Refill [facility] [address] [place], [place] [phone] Rachelle Lucero, DOROTA Nephrolithiasis 10/18/[address] [address] Amber Quiroz MD Social Security Form (I [...] completed by a psych provider.) 10/17/[address] [address] Cheryl Larkin, RN Sent to ED from Office 10/16/[address] [address] Amber Quiroz MD Chart Prep 10/15/[address] [address] Amber Quiroz MD Nurse Triage 10/11/2024 Patient Outreach [address] [place] [address] Amber Quiroz MD Care Coordination (CM/CHW outreach) 10/11/2024 Patient Outreach [facility] MEDICINE [address] [facility] [place] [address] Amber Quiroz MD Care Coordination (CM/CHW outreach) 10/08/2024 Refill [facility] [address] [place] [address] Rachelle Lucero, DOROTA Nephrolithiasis 10/08/2024 Telephone [facility] [address] [place] [address] Amber Quiroz MD 10/07/2024 Refill [facility] MEDICINE [address] [facility] [place] [address] Amber Quiroz MD Nausea 10/02/2024 Telephone [facility] MEDICINE [address] [place] [address] 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, supervisor instant potato 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 Question 10/01/2024 11:30 AM EDT Telemedicine [facility] MEDICINE [address] [place], [place] [address]j[place] [address] 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 RN Essential hypertension 10/01/2024 Travel 10/01/2024 Telephone [facility] MEDICINE [address] [place] [address] Amber Quiroz MD 09/26/2024 Telephone [facility] MEDICINE [address] [place] [address] Amber Quiroz MD Nurse Triage 09/25/2024 Refill [facility] MEDICINE [address] [place] [address] Amber Quiroz MD Moderate persistent asthma without complication 09/25/2024 Telephone [facility] MEDICINE [address] [place] [address] Amber Quiroz MD Care Management (C3- initial assessment/ enrollment #2. lvm) 09/24/2024 Patient Outreach [facility] MEDICINE [address] [place] [address] Amber Quiroz MD Care Coordination (CM/CHW appt reminder) 09/20/2024 Refill [facility] [place] [address] Amber Quiroz MD Nephrolithiasis 09/13/2024 Population Health Risk Score [facility] () [address] [phone] Provider, Population Health Generic 09/05/2024 Telephone [facility] [place] [address] 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 RN Results 09/04/2024 Orders Only [facility] [place] [address] Amber Quiroz MD Routine screening for STI (sexually transmitted infection) (Primary Dx) 09/04/2024 Patient Outreach [facility] [place] [address] Amber Quiroz MD Care Coordination (CM/CHW outreach) 09/04/2024 Refill [facility] [place] [address] Amber Quiroz MD 09/03/2024 3:00 PM EST Office Visit [facility] [place] [address] Amber Quiroz MD Loin pain hematuria syndrome (Primary Dx); Essential hypertension; Kidney stones; Nephrolithiasis; Mood disorder (CMS/HCC); Dyslipidemia; Encounter for immunization; Dietary counseling; Exercise counseling; Overweight; Panic disorder without agoraphobia; Anxiety; Iron deficiency anemia, unspecified iron deficiency anemia type 09/03/2024 Telephone [facility] [place] [address] Amber Quiroz MD Appointment Request 09/03/2024 Travel 08/29/2024 Refill [facility] [place] [address] Amber Quiroz MD 08/28/2024 Telephone [facility] [place] [address] Shellie Eric MA chart prep 08/28/2024 Patient Outreach [facility] MEDIC[facility] [address] [facility] [place] [address] Amber Quiroz MD Care Coordination (CM/CHW outreach) 08/26/2024 Telephone [facility] MEDICINE [address] [place] [address] Amber Quiroz MD Nurse Triage 08/25/2024 Refill [facility]S [address] [place], [place] [phone] Amber Quiroz MD Pain 08/21/2024 Telephone [facility] MEDICINE [address] [place] [address] Amber Quiroz MD Nurse Triage 08/15/2024 Patient Outreach [facility] MEDICINE [address] [place] [address] Amber Quiroz MD Care Coordination (CM/CHW outreach) 08/15/[address] [address] Marixa Eric RN Care Management (C3CM- chart review) 08/15/2024 Refill [facility] MEDICINE [address] [place] [address] Amber Quiroz MD Nausea 08/14/2024 Orders Only [...] Office Visit [facility] MEDICINE [address] [place], [place] [phone] Amber Quiroz MD [address] [place], [place] [phone] Health Maintenance Due Date Last Done Comments [...] Comments CT ABDOMEN PELVIS WO CONTRAST Routine 11/11/2024 11:[address] ABDOMEN PELVIS WO CONTRAST Routine 11/02/2024 2:39 PM EDT URINALYSIS, COMPLETE, WITH REFLEX TO CULTURE Routine 11/02/2024 2:17 PM EDT CASE PRESENTATION, DETAILED AND EXTENSIVE TREATMENT PLANNING [...] Results * CT Abdomen Pelvis w/o Contrast (11/11/2024 11:14 AM EDT) Only the most recent of3 resultswithin the time period is included. Anatomical Region Laterality Modality Body, Pelvis, Abdomen Computed T omography 11/11/2024 11:1 4 AM EDT Narrative 11/11/2024 11:55 AM EDT ? [facility] ?[address] ?[place] [address] ? CT Scan Report ? Signed ? Patient: Marquez,Zelimarcelo ?MR#: [id number] ?? [id number] ? : 1965 ?Acct:[id number] ? Age/Sex: 58 / F ?ADM Date: 11/11/24 ? Loc: HO.ED ? Attending Dr: ? Ordering Physician: Felix Malik DO ?? Date of Service: 11/11/24 ?? Procedure(s): CT abdomen pelvis wo IV con ?? Accession Number(s): [id number] ? cc: Felix Malik DO; Amber Quiroz MD ? Report Number: ?? [id number]: Total DLP = ??447.00 mGy-cm ?? EXAMINATION: ?? CT ABDOMEN AND PELVIS WITHOUT CONTRAST ? CLINICAL INFORMATION: ?? Abdominal pain. ? COMPARISON: ?? Numerous priors, most recently 11/02/2024. ? TECHNIQUE: ?? Multidetector volumetric imaging was [...] ?? *Use of iterative reconstruction technique ? FINDINGS: ?? LUNG BASES: The visualized [...] IV con ?? IMPRESSION: ?? 1. There are small bilateral nonobstructing renal calculi without ?? evidence of hydronephrosis or urological obstruction. ?? 2. Normal urinary bladder. ?? 3. Additional ancillary findings as discussed in the body of the report. ? Electronically signed by: ??Eliezer Whyte MD ??11/11/2024 11:52 AM EDT RP ? Dictated By: ?Eliezer Whyte MD ? Signed By: ?<Electronically signed by Eliezer Whyte MD in OV> ?11/11/24 1152 ? DD/ 1114 ? TD/TT: 11/11/24 1139 ? Lining Maker Hand: ? Procedure Note Donotuseinterpreter, Image - 11/11/[address] [place] [address] [address] Scan Report Signed Patient: John MarquezMR#: [id number] : 1965Acct:[id number] Age/Sex: 58 / FADM Date: 11/11/24 Loc: HO.ED Attending Dr: Ordering Physician: Felix Malik DO Date of Service: 11/11/24 Procedure(s): CT abdomen pelvis wo IV con Accession Number(s): [id number] cc: Felix Malik DO; Amber Quiroz MD Report Number: [id number]: Total DLP = 447.00 mGy-cm EXAMINATION: CT ABDOMEN AND PELVIS WITHOUT CONTRAST CLINICAL INFORMATION: Abdominal pain. COMPARISON: Numerous priors, most recently 11/02/2024. TECHNIQUE: Multidetector volumetric imaging was performed from [...] or head) *Use of iterative reconstruction technique FINDINGS: LUNG BASES: The visualized lung bases [...] pelvis wo IV con IMPRESSION: 1. There are small bilateral nonobstructing renal calculi without evidence of hydronephrosis or urological obstruction. 2. Normal urinary bladder. 3. Additional ancillary findings as discussed in the body of the report. Electronically signed by: Eliezer Whyte MD 11/11/2024 11:52 AM EDT Dictated By: Eliezer Whyte MD Signed By: <Electronically signed by Eliezer Whyte MD in OV> 11/11/24 1152 DD/ 1114 TD/TT: 11/11/24 1139 Lining Maker Hand: [facility] External Provider IMG CT PROCEDURES Final Result * (ABNORMAL) Urinalysis, Complete, with Reflex to Culture (11/02/2024 2:17 PM EDT) Color Urine Yellow [facility] Appearance Urine Clear [facility] PH 5.0 5.0 - 9.0 [facility] Glucose Urine UA >=1000(A) Negative mg/dL [facility] Urine Blood Large (3+)(A) Negative [facility] Specific [place] - Urine 1.015 1.005 - 1.025 [facility] Urine Protein 100 (2+)(A) Neg-Trace mg/dL [facility] Urine Ketones Negative Negative mg/dL [facility] Nitrite Urine Negative Negative [facility] Leukocyte Esterase Urine Trace(A) Negative [facility] RBC Urine >20(A) 0 - 2 /HPF [facility] Urine WBC 0-5 0 - 5 /HPF [facility] Urine Squamous Epithelial Cell 0-2 0 - 2 /HPF [facility] Urine Bacteria None Seen None Seen [facility] Hyaline Casts, Urine 0-2 0 - 2 /LPF [facility] 11/02/2024 2:17 PM EDT 11/02/2024 2:23 PM EDT Narrative [facility] - 11/02/2024 2:42 PM EDT Urine, Clean Catch us Generic External Data Provider LAB URINE ORDERAB LES Final Result Performing Organization Address [facility] de Phone Number [facility] [address] [place] [phone] * Referral to Urology (09/25/2024) us Amber [...] ORDERABLES Final Resul t Performing Organization Address [facility] Co de Phone Number [facility] [address] [place] [address] [phone] * Vitamin B12/Folate, Serum Panel (09/03/2024 [...] Resul t Performing Organization Address City/[facility]/ZIP Co de Phone Number [facility] [address] [place] [phone] * TSH with Reflex to Free T4 (09/03/2024 4:26 PM EST) Pathologist [facility] TSH reflex Free T4 1.08 0.32 - 4.0 uIU/mL [facility] Blood 09/03/2024 4:26 PM EST 09/03/2024 6:14 PM EST Amber Quiroz MD LAB BLOOD ORDERABLES Final Resul t Performing Organization Address City/[facility]/ZIP Co de Phone Number [facility] [address] [place] [phone] * (ABNORMAL) Lipid Panel with Reflex to Direct LDL (09/03/2024 4:26 PM EST) Triglycerides 112 <150 mg/dL [facility] Comment:Desirable Triglyceri de: less than [...] mg/dL HDL Cholesterol 49 >40 mg/dL [facility] Comment:Desirable HDL: great er than 40 mg/dL Note: This HDL assay may give artificially low results in patients with liver disease. Blood 09/03/2024 4:26 PM EST 09/03/2024 6:14 PM EST us Amber Quiroz MD LAB BLOOD ORDERABLES Final Resul t [facility] [address] [place] [phone] * (ABNORMAL) CBC auto differential [...] [facility] [address] [place] [phone] [phone] * Iron And Total Iron Binding [...] ORDERABLES Final Resul t Performing Organization Address [facility] Co de Phone Number [facility] [address] [place] [phone] * Hemoglobin A1c (09/03/2024 4:26 PM EST) Hemoglobin A1c 5.6 <6.0 % [facility] Comment:Hemoglobin A1C Refer ence Range [...] asaverage glucose, using the formula of the O4G-RrgxcimDbagujw Glucose study (ADAG), Diabetes Care, Vol.31,#8,Jan. 2007 Blood Venous blood specimen / Unknown 09/03/2024 4:26 PM EST 09/03/2024 6:14 PM EST Amber Quiroz MD LAB BLOOD ORDERABLES Final Resul t Performing Organization Address [facility] Co de Phone Number [facility] [address] [place] [phone] * Ferritin (09/03/2024 4:26 PM EST) Ferritin 51 10 - 250 ng/mL [facility] Blood Venous blood specimen / Unknown 09/03/2024 4:26 PM EST 09/03/2024 6:14 PM EST us Amber Quiroz MD LAB BLOOD ORDERABLES Final Resul t [facility] [address] [place] [phone] [phone] * (ABNORMAL) Comprehensive Metabolic Panel (09/03/2024 [...] Kidney Disea se: Estimated GFR < 60 mL/min/[id number] Kidney Disease: Estimated GFR < 15 mL/min/1.73m2 [...] ORDERABLES Final Resul t Performing Organization Address [facility] de Phone Number [facility] [address] [place] [phone] * Urinalysis w/reflex microscopic (08/14/2024 11:57 [...] [facility] Specific [place] - Urine 1.015 1.005 - 1.025 [facility] Urine Protein Negative Neg-Trace mg/dL [facility] Urine Ketones Negative Negative mg/dL [facility] Nitrite Urine Negative Negative [facility] Leukocyte Esterase Urine Negative Negative [facility] 08/14/2024 11:5 7 AM EST 08/14/2024 12:00 PM EST Narrative [facility] - 08/14/2024 12:07 PM EST Urine, Clean Catch us Generic External Data Provider LAB URINE ORDERAB LES Final Result Performing Organization Address [facility] de Phone Number [facility] [address] [place] [phone] * (ABNORMAL) THINPREP TIS PAP AND HPV mRNA E6/E7 WITH REFLEX TO HPV 16,18/45 (07/30/2021 10:17 AM EST) Clinical Information: PM [facility] COMMENT SEE COMMENT [facility] ON [...] has been evaluated with computer assisted technology. [facility] Supervisor Patching: SEE COMMENT [facility] Comment: [facility], CT(ASCP) CT screening location: [address] ??[phone] General Categorization: EPITHELIAL CELL ABNORMALITY(A ) [facility] HPV nRNA E6/E7 Not Detected Not Detected [facility] Comment: Methodology: Healthcare Architect-Mediated Amplification This assay detects E6/E7 viral messenger RNA (mRNA) from 14 high-risk HPV types (16,18,31,33,35,39,45,51,52,56,58,59,66,68). ? The analytical performance characteristics of this assay have been determined by [employer]. The modifications have not been cleared or approved by the FDA. This assay has been validated pursuant to the CLIA regulations and is used for clinical purposes. ?? For additional information, please refer to http://education.[employer]/faq/BBF490y7 (This link if provided for information/ educational purposes only.) Infection Shift in vaginal geovanny suggestive of bacterial vaginosis. [facility] Interpretation/Res ult: SEE COMMENT(A) [facility] Comment: Atypical Squamous Cells of Undetermined Significance (ASC-US) Rare cells are approaching low grade dysplasia. LMP: NONE GIVEN [facility] PATHOLOGIST: SEE COMMENT [facility]OUND [facility] Comment: Jennifer Branch M.D., Board Certified in Anatomic and Clinical Pathology (electronic signature) Consulting Pathologist [facility] [phone] Prev. BX: NONE GIVEN [facility] Prev. PAP: NONE GIVEN [facility] ON LAB SYSTEM SOURCE: None given [facility] Statement Of Adequacy: SEE COMMENT [facility] Comment: Satisfactory for evaluation. Endocervical/transformation zone component present. 07/30/2021 10:1 7 AM EST us Saleem Maier MD LAB PATHOLOGY ORDERABLES Final R esult [facility] [address] [place] [address], from Last 3 Months or Most Recently Relevant to Health Maintenance Insurance [facility] STANDARD DENTAL-[facility] MEDICAID STAND ADULT Care Teams Residential Sales Representative Relationship Specialty Start Date End Date Amber Quiroz MD [address] [facility] [place] [address] PCP - General Family Medicine 07/03/18
--- OUTSIDE RECORDS SUMMARY | 2024-11-11 12:11 | XMS_ITS | Encounter Summary ---
Author Organization [employer] Address [address] [facility] [address] [place] [address] Care Team Providers Care [employer] Manager Name Role Phone Amber Quiroz MD Primary Care Provider [phone] Reason for Visit * Reason Onset Date Comments CHART PREP 11/11/2024 Encounter Details Date Type Department Care Team ([facility] st Contact Info) Description 11/11/2024 Telephone [facility] [address] [place], [place] [phone] Amber Quiroz MD [address] [place], [place] [phone] CHART PREP Social History Tobacco Use Types Packs/Day Years [...] encounter Miscellaneous Notes * Telephone Encounter - Xochitl Bey MA - 11/11/2024 11:08 AM EDT Chart Prep Labs: not done 09/04/24 t/c for lab reminder no answer Images: done CT/ABD pelvis 11/02/24 Referrals: not applicable Vaccines due: Zoster Screenings: colonoscopy, mammogram, and pap smear Overdue care gaps: SDOH, PHQ-9, Oral health screening, Disability screen, and Tobacco documented in this encounter Plan of Treatment Upcoming Encounters Date Type Department Care Team (Late st Contact Info) Description 11/12/2024 1:30 PM EDT Office Visit [facility] [address] [place] [address] Amber Quiroz MD [address] [place] [phone] documented as of this encounter Visit Diagnoses Not on filedocumented in this encounter Care Teams [employer] Manager Relationship Specialty Start Date End Date Amber Quiroz MD [address] [place] [phone] PCP - General Family Medicine 07/03/18 documented as of this encounter
--- OUTSIDE RECORDS SUMMARY | 2024-11-11 12:11 | XMS_ITS | Encounter Summary ---
Author Organization [employer] Address 75 [facility] 7t [place] [address] Care Team Providers Care Plant Technician Name Role Phone Amber Quiroz MD Primary Care Provider [phone] Reason for Visit * Reason Onset Date Comments Appointment Request 11/22/2023 Encounter Details Date Type Department Care Team ([facility] st Contact Info) Description 11/22/2023 Telephone [facility] MEDICINE [address] [place], [place] [phone] Amber Quiroz MD [address] [place], [place] [phone] Appointment Request Social History Tobacco Use Types [...] t he electric, gas, oil or water Track the [employer] threatened to shut off services in your [...] due tosleep difficulty. Please contact pt at [phone]. documented in this encounter Plan of Treatment Upcoming Encounters Date Type Department Care Team (Late st Contact Info) Description 11/12/2024 1:30 PM EDT Office Visit [facility] MEDICINE [address] [place] [address] Amber Quiroz MD [address] [place] [address] documented as of this encounter Visit Diagnoses Not on filedocumented in this encounter Care Teams Plant Technician Relationship Specialty Start Date End Date Amber Quiroz MD [address] [place] [address] PCP - General Family Medicine 07/03/18 documented as of this encounter
--- OUTSIDE RECORDS SUMMARY | 2024-11-11 12:11 | XMS_ITS | Encounter Summary ---
Author Organization [employer] Address 75 [facility] 7t [place] [address] Care Team Providers Care Journeyman Pipefitter Name Role Phone Amber Quiroz MD Primary Care Provider [phone] Reason for Visit * Reason Onset Date Comments status of oral surgery appt 11/11/2024 Encounter Details Date Type Department Care Team ([facility] st Contact Info) Description 11/11/2024 Telephone [facility] CHC ADULT DENTAL [address] [place] [address] Francisco Mohan, DMD [address] [place], [place] status of oral surgery appt Social History Tobacco Use Types Packs/Day Years [...] encounter Miscellaneous Notes * Telephone Encounter - Raven Zeyad - 11/11/2024 8:48 AM EDT Patient is calling in to check in on status of Oral Surgery appt. Patient has shayan reminded that provider is in 1x per month and there is an active waiting list. She has been informed that appt is active requested and when it is her turn she will receive a call for scheduling. Patient understood DR documented in this encounter Plan of Treatment Upcoming Encounters Date Type Department Care Team (Late st Contact Info) Description 11/12/2024 1:30 PM EDT Office Visit [facility] MEDICINE [address] [place] [phone] Amber Quiroz MD [address] [place] [address] documented as of this encounter Visit Diagnoses Not on filedocumented in this encounter Care Teams Journeyman Pipefitter Relationship Specialty Start Date End Date Amber Quiroz MD [address] [place] [phone] PCP - General Family Medicine 07/03/18 documented as of this encounter
--- OUTSIDE RECORDS SUMMARY | 2024-11-11 12:11 | XMS_ITS | Encounter Summary ---
Author Organization [employer] Address 75 [facility] 7t [place] [address] Care Team Providers Care Deposition Operator Name Role Phone Amber Quiroz MD Primary Care Provider [phone] Reason for Visit * Reason Onset Date Comments Care Management 11/05/2024 C3CM- initial as sessment/ enrollment. Encounter Details Date Type Department Care Team ([facility] st Contact Info) Description 11/05/2024 Telephone [facility] MEDICINE [address] [place], [place] [phone] Amber Quiroz MD [address] [place], [place] [phone] Care Management (C3CM- initial assessment/ enrollment.) Social History Tobacco Use Types Packs/Day Years [...] Telephone Encounter - Marixa Eric RN - 11/05/2024 7:47 PM EDT MARIE Eric RN, provided notification to PCP Dr. Quiroz of patient's enrollment into C3 Complex Care Program. MARIE Eric RN, completed care plan and sent to HIM to be scanned into the medical record. PCP notified and awaiting review from provider. CM plan: -CM will assist with coordinating care, following up with referrals to specialists/scheduling appointments, and reminding patient of her scheduled visits -CM/CHW will assist with setting up transportation to the scheduled appointments -CM will assist with obtaining a BP monitor and Rx shower bar -CM will provide education on disease processes and management of chronic conditions -CM/CHW will provide resources based on positive SDOH needs. * Telephone Encounter - Marixa Eric RN - 11/05/2024 7:46 PM EDT MARIE Eric RN placed outbound call to patient for agreed upon time for initial assessment for enrollment into Adult Care Management Program. Patient's name, , and address were verified. John is a 58 year old female with Hx of anemia, anxiety, asthma with COPD, cobalamin deficiency, chronic pancreatitis, dyslipidemia, HTN, GERD, total knee arthroplasty, impaired fasting glucose, mood disorder, osteoarthritis of knee, panic disorder without agoraphobia, recurrent UTI, disorder of lung, lung mass, loin pain hematuria syndrome, asthma, allergic rhinitis, nephrolithiasis, abdominal pain/chronic generalized, angiomyolipoma of kidney, arthralgia of hip, back pain. Patient reports being followed by psych. She states she has an appointment scheduled via telehealth at 1:40pm today. Per patient, not currently established with a therapist. She states her therapist left practice and sheis currently in the process of getting a new one assigned to her. Patient states she will ask her psych provider to provide her with a status today. Patient states she is scheduled to see her Urologist on this week and is requesting assistance with setting up PT1. FELIPE Oliveira made aware and she will follow up with patient once transportation is set. Patient states she is established with vision and dental. She was recently seen by [facility] Optometry and states she was prescribed glasses. Per patient, informed that she would be referred to a specialist due to having cataracts and also seeing floaters in her visual field. She would like assistance with coordinating this. CM will outreach the office to f/u on the referral. Patient states she is also waiting on dental to contact her to schedule a f/u with oral surgery as she will be getting dentures. Patient c/o left knee pain and swelling x1 week. She denies injury or trauma. Patient reports elevating the extremity with no relief. She s tates she does take tramadol which does help manage the pain. Patient states she did have a right total knee arthroplasty in 2018. She states she has not seen Ortho since then and cannot recall who she did see at the time. She would like for PCP to refer to Ortho for further eval. Per patient, is scheduled to see PCP on 11/12 and plans on addressing her concerns during the office visit. 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 She states she filled out the application several weeks ago and is waiting on a nurse to go to the home to do an evaluation. She will f/u with the agency to inquire on a status and will f/u with CM if in need of additional assistance with this. Patient states she follows a healthy diet. She states she eats fruits/ vegetables and eats foods that arelow in salt. She denies any concerns with her weight. Patient is also requesting a BP monitor. She states she knows how to use the monitor. She also states she knows BP parameters and knows to f/u with PCP if readings are outside of normal range and/or if symptomatic. Patient verbalizes that she isable to recognize s/s evalated BP. Patient is agreeable with beginning to monitor and will keep logto review with CM at the next f/u call. Patient reports compliance to medications. She denies any concerns or side effects. Patient denies any further needs or concerns at this time. Care management program explained and contact information given. Patient verbalizes understanding, and able to repeat back to justowriter operator. A follow up call will be placed within 10 days, patient agrees with plan. documented in this encounter Plan of Treatment Upcoming Encounters Date Type Department Care Team (Late st Contact Info) Description 11/12/2024 1:30 PM EDT Office Visit [facility] MEDICINE [address] [place] [address] Amber Quiroz MD [address] [place] [address] documented as of this encounter Visit Diagnoses Not on filedocumented in this encounter Care Teams Deposition Operator Relationship Specialty Start Date End Date Amber Quiroz MD [address] [place] [phone] PCP - General Family Medicine 07/03/18 documented as of this encounter
--- OUTSIDE RECORDS SUMMARY | 2024-11-11 12:11 | XMS_ITS | Encounter Summary ---
Author Organization [employer] Address 75 [facility] 7t [place] [address] Care Team Providers Care Liberal Arts Dean Name Role Phone Amber Quiroz MD Primary Care Provider [phone] Encounter Details Date Type Department Care Team ([facility] st Contact Info) Description 09/04/2024 Orders Only [facility] MEDICINE [address] [place], [place] [phone] Amber Quiroz MD 230 [place], [place] [phone] Routine screening for STI (sexually transmitted infection) [...] the past 12 months, has t he [employer], [employer], oil or water company threatened to shut [...] Description 11/12/2024 1:30 PM EDT Office Visit [facility] MEDICINE [address] [place] [phone] Amber Quiroz MD [address] [place] [phone] Scheduled Orders Name Type Priority Associated Diagnoses [...] disease documented in this encounter Care Teams Liberal Arts Dean Relationship Specialty Start Date End Date Amber Quiroz MD [address] [place] [phone] PCP - General Family Medicine 07/03/18 documented as of this encounter
--- OUTSIDE RECORDS SUMMARY | 2024-11-11 12:11 | XMS_ITS | Encounter Summary ---
Author Organization [employer] Address 75 [facility] 7t [place] [address] Care Team Providers Care Bottle Cleaner Name Role Phone Amber Quiroz MD Primary Care Provider [phone] Reason for Visit * Reason Comments Med Refill Encounter Details Date Type Department Care Team (Late st Contact Info) Description 04/26/2023 Refill [facility] [address] [place] [address] Alan Partida MD [address] [place] [phone] Moderate persistent asthma without complication; Nausea Social [...] PM EDT Office Visit [facility] [address] [place] [address] [phone] Amber Quiroz MD [address] [place] [address] [phone] documented as of this encounter Visit Diagnoses Diagnosis Moderate persistent asthma without complication Nausea Nausea alone documented in this encounter Care Teams Bottle Cleaner Relationship Specialty Start Date End Date Amber Quiroz MD [address] [place] [address] PCP - General Family Medicine 07/03/18 documented as of this encounter
--- OUTSIDE RECORDS SUMMARY | 2024-11-11 12:11 | XMS_ITS | Encounter Summary ---
Author Organization [employer] Address [address] [facility] 7t [place] [address] Care Team Providers Care Head Grease Maker Name Role Phone Amber Quiroz MD Primary Care Provider [phone] Encounter Details Date Type Department Care Team (Late st Contact Info) Description 07/28/2022 Orders Only [facility] MEDICINE [address] [place] [address] [phone] Anabell Martinez LPN Social History Tobacco Use [...] 1:30 PM EDT Office Visit [facility] MEDICINE [address] [place] [address] Amber Quiroz MD [address] [place] [address] [phone] documented as of this encounter Procedures Procedure [...] (08/02/2022 12:29 AM EST) Color Urine Yellow [facility] Appearance Urine Turbid [facility] PH 6.5 5.0 - 9.0 [facility] Glucose Urine UA Negative Negative mg/dL [facility] Urine Blood Trace(A) Negative [facility] Specific [place] - Urine 1.020 1.005 - 1.025 [facility] Urine Protein 30 (1+)(A) Neg-Trace mg/dL [facility] Urine Ketones Negative Negative mg/dL [facility] Nitrite Urine Negative Negative [facility] Leukocyte Esterase Urine Large (3+)(A) Negative [facility] RBC Urine 0-2 0 - 2 /HPF [facility] Urine WBC >50(A) 0 - 5 /HPF [facility] Urine Squamous Epithelial Cell 6-10 0 - 2 /HPF [facility] Urine Bacteria 1+ None Seen [facility] Hyaline Casts, Urine 3-5 0 - 2 /LPF [facility] 08/02/2022 12:2 9 AM EST 08/02/2022 12:31 AM EST Narrative [facility] - 08/02/2022 12:50 AM EST Urine, Clean Catch us [facility] External Provider LAB URI NE ORDERABLES Final Result [facility] [address] [place] [phone] * SARS-CoV-2 RNA, Influenza A/B, and RSV RNA, Ql NAAT (08/02/2022 12:17 AM EST) Influenza A PCR NEGATIVE Negative [facility] Influenza B PCR NEGATIVE Negative [facility] Resp Syncy Virus RNA Qual PCR NEGATIVE Negative [facility] SARS COV2 PCR NEGATIVE Negative [facility] SARS/Flu/RSV Note See Note [facility] Comment:All test results mus t be [...] use by authorized laboratories.Testing performed on the [employer] GeneXpert utilizingreal-time RT-PCR.All SARS CoV2 and positive influenza A/B results arereported to [facility]. 08/02/2022 12:1 7 AM EST 08/02/2022 12:19 AM EST [facility] Exter nal Provider LAB MICROBIOLOGY - GENERAL ORDERABLES Final Result [facility] [address] [place] [phone] * (ABNORMAL) Basic Metabolic Panel (08/02/2022 12:17 AM EST) Sodium 140 135 - 145 mmol/L [facility] Potassium 3.9 3.3 - 5.1 mmol/L [facility] Chloride 105 96 - 108 mmol/L [facility] Carbon Dioxide 24 22 - 29 mmol/L [facility] Anion Gap 15 12 - 20 [facility] Urea Nitrogen (BUN) 14 9 - 16 mg/dL [facility] Creatinine, Serum 0.75 0.5 - 1.4 mg/dL [facility] Creatinine Clr Calc Pharmacy 71.4 [facility] Comment:Provided height and weight: 162.56 cm,63.503 kg.eGFR (calculated from the MDRD study equation) and eCrCl(calculated from the Cockcroft-Gault equation) are based ondifferent parameters and may not yield comparable results.If eCrCl result is absurd, please check patient'sheight/weight. Estimated Glomerular Filt Rate >60 [facility] Comment:NOTE: For -Am erican individuals, multiply the result by 1.210.Chronic Kidney Disease: Estimated GFR < 60 mL/min/1.36a3Fblsso Kidney Disease: Estimated GFR < 15 mL/min/1.73m2 Glucose 119(H) 60 - 115 mg/dL [facility] Calcium 9.0 8.4 - 10.2 mg/dL [facility] 08/02/2022 12:1 7 AM EST 08/02/2022 12:19 AM EST us [facility] External Provider LAB BLO OD ORDERABLES Final Result [facility] [address] [place] [phone] * (ABNORMAL) CBC auto differential (08/02/2022 12:17 AM EST) White Blood Count 6.4 4.8 - 10.8 X10*3/uL [facility] Red Blood Count 3.96(L) 4.20 - 5.50 X10*6/uL [facility] Hemoglobin 10.8(L) 12.0 - 16.0 g/dl [facility] Hematocrit 33.0(L) 37.0 - 47.0 % [facility] Mean Corpuscular Volume 83.3 80.0 - 98.0 fL [facility] Mean Corpuscular Hemoglobin 27.3 27.0 - 33.0 pg [facility] Mean Corpuscular HGB Conc 32.7 31.0 - 35.0 g/dl [facility] Red Cell Distribution Width 14.2 11.0 - 16.0 % [facility] Platelet Count 202 160 - 400 X10*3/uL [facility] Mean Platelet Volume 9.2(L) 9.4 - 12.3 fL [facility] Neutrophils Percent Auto 68.5 45 - 73 % [facility] Imm Gran Pct Auto 0.2 0.0 - 0.4 % [facility] Lymphocytes Percent Auto 21.9 20 - 40 % [facility] Monocytes Percent Auto 8.6 2 - 11 % [facility] Eosinophils Percent Auto 0.5 0 - 4 % [facility] Basophils Percent Auto 0.3 0 - 2 % [facility] NRBC Pct Auto 0.0 0.0 - 0.2 /100WBC [facility] Neutrophils Absolute Auto 4.4 2.0 - 8.3 x10*3/uL [facility] Imm Gran Abs Auto 0.01 0.00 - 0.03 X10*3/uL [facility] Lymphocytes Absolute Auto 1.4 1.2 - 4.9 X10*3/uL [facility] Monocytes Absolute Auto 0.6 0.1 - 1.2 X10*3/uL [facility] Eosinophils Absolute Auto 0.0 0.0 - 0.4 X10*3/uL [facility] Basophils Absolute Auto 0.0 0.0 - 0.2 X10*3/uL [facility] NRBC Abs Auto 0.000 0.0 - 0.012 X10*3/uL [facility] 08/02/2022 12:1 7 AM EST 08/02/2022 12:19 AM EST us [facility] External Provider LAB BLO OD ORDERABLES Final Result [facility] [address] [place] [phone] * Culture, Urine, Routine (08/02/2022 12:00 AM EST) 08/02/2022 08/02/2022 7:3 1 AM EST Comment:UACC Narrative [facility] - 08/03/2022 9:19 AM EST Urine Culture No growth. Specimen Source: Urine clean catch [facility] Exter nal Provider LAB MICROBIOLOGY - GENERAL ORDERABLES Final Result Performing Organization Address City/State/[facility] Co de Phone Number [facility] [address] [place] [address] [phone] documented in this encounter Visit Diagnoses Not on filedocumented in this encounter Care Teams Head Grease Maker Relationship Specialty Start Date End Date Amber Quiroz MD [address] [place] [phone] PCP - General Family Medicine 07/03/18 documented as of this encounter
--- OUTSIDE RECORDS SUMMARY | 2024-11-11 12:11 | XMS_ITS | Encounter Summary ---
Author Organization [employer] Address 75 [facility] 7 [place] [address] Care Team Providers Care Lapidary Apprentice Name Role Phone Amber Quiroz MD Primary Care Provider [phone] Encounter Details Date Type Department Care Team (Late st Contact Info) Description 12/12/2022 Orders Only [facility] MEDICINE [address] [place] [phone] Anabell Martinez LPN Social History Tobacco Use [...] Description 11/12/2024 1:30 PM EDT Office Visit [facility] MEDICINE [address] [place] [address] Amber Quiroz MD [address] [place] [phone] documented as of this encounter Visit Diagnoses Not on filedocumented in this encounter Care Teams Lapidary Apprentice Relationship Specialty Start Date End Date Amber Quiroz MD [address] [place] [phone] PCP - General Family Medicine 07/03/18 documented as of this encounter
--- OUTSIDE RECORDS SUMMARY | 2024-11-11 12:11 | XMS_ITS | Encounter Summary ---
Author Organization [employer] Address 75 [facility] 7t [place] [address] Care Team Providers Care Street Light Servicer Supervisor Name Role Phone Amber Quiroz MD Primary Care Provider [phone] Reason for Visit * Reason Onset Date Comments Med Refill 01/10/2024 Encounter Details Date Type Department Care Team (Late st Contact Info) Description 01/10/2024 Telephone [facility] [address] [place], [place] [phone] Amber Quiroz MD [address] [place], [place] [phone] Med Refill Social History Tobacco Use Types [...] immediate release tablet To be sent to: [facility] - [place], [place] - [address] [place] [address] documented in this encounter Plan of Treatment Upcoming Encounters Date Type Department Care Team (Late st Contact Info) Description 11/12/2024 1:30 PM EDT Office Visit [facility] [address] [place] [address] Amber Quiroz MD [address] [place] [address] documented as of this encounter Visit Diagnoses Not on filedocumented in this encounter Care Teams Street Light Servicer Supervisor Relationship Specialty Start Date End Date Amber Quiroz MD [address] [place] [address] PCP - General Family Medicine 07/03/18 documented as of this encounter
--- OUTSIDE RECORDS SUMMARY | 2024-11-11 12:11 | XMS_ITS | Encounter Summary ---
Author Organization [email or web address] Address [address] [facility] [address] 7t [place] [address] Care Team Providers Care Project Management Director Name Role Phone Amber Quiroz MD Primary Care Provider [phone] Reason for Visit * Reason Comments Care Coordination SDOH Encounter Details Date Type Department Care Team (Latest Contact Info) Description 11/06/2024 Patient Outreach [facility] MEDICINE [address] [place], [place] [phone] Roxanne Dsouza Care Coordination (SDOH) Social History Tobacco Use Types Packs/Day Years [...] encounter Progress Notes * Roxanne Dsouza - 11/06/2024 9:01 AM EDT CHW Roxanne Dsouza placed outbound call to patient to follow up on SDOH needs. Patient's name, and address confirmed. Patient states is doing well. CHW let patient know that I will be sending a referral to [facility] and will also help with PT1 to appts. No further questions or concerns. CHW reinforced direct contact information or CM for any additional questions or concerns and extended clinic hours on Mondays and Wednesdays, and Walk-In Urgent Care Located in [facility] of [facility]. Patient provided with after-hours line for [facility], , which offer night time triage service and option to transfer to marketing communications manager provider if needed. Patient verbalizes understanding, and able to repeat back to process description writer. A follow up call willbe placed within 10 days, patient agrees with plan. documented in this encounter Plan of Treatment Upcoming Encounters Date Type Department Care Team (Late st Contact Info) Description 11/12/2024 1:30 PM EDT Office Visit [facility] MEDICINE [address] [place] [address] Amber Quiroz MD [address] [place], [place] [phone] documented as of this encounter Visit Diagnoses Not on filedocumented in this encounter Care Teams Project Management Director Relationship Specialty Start Date End Date Amber Quiroz MD [address] [place] [address] PCP - General Family Medicine 07/03/18 documented as of this encounter
--- OUTSIDE RECORDS SUMMARY | 2024-11-11 12:11 | XMS_ITS | Clinical Summary ---
Author Organization [facility] Address [address] [place] [address] Phone Care Team Providers Care Manager Transport Name Role Phone Physician, No Pcp Primary Care Provider Unavaila ble Allergies Active Allergy Reactions Criticality Noted Date Comments Aspirin Congestion of the throat 08/21/2024 Ibuprofen Swallowing Problem 08/21/2024 Acetaminophen Swallowing Problem 08/21/2024 Medications No known medications Active Problems No known active problems Encounters Date Type Department Care Team Description 09/25/2024 Lab Requisition [facility] [address] [facility] [place] [address] Zachery Chi PA Calculus of ureter 08/21/2024 3:41 PM EST - 08/21/2024 7:08 PM EST Emergency [facility] Emergency [address] [place] [address] Bilateral flank pain (Primary Dx); [...] LAB CHEMISTRY METHOD 09/25/2024 7:10 PM EDT [facility] Blood Venous blood specimen / Unknown 09/25/2024 3:15 PM EDT 09/25/2024 6:18 PM EDT Zachery LUO LAB BLOOD ORDERABLES Final Res ult [facility] [address] [place] [address], [place] [phone] * ECG-Annotated (08/22/2024) Provider Onbase MD ECG ORDERABLES Final Result * (ABNORMAL) Drug abuse screen 8a panel, urine (08/21/2024 6:02 PM EST) [facility] Amphetamine Screen, Ur Negative Negative LAB CHEMISTRY METHOD 5 6:35 PM EST [facility] Comment:Certain OTC medicati ons containing ephedrine, phenylephrine, pseudoephedrine and phenylpropanolamine can cause false positive results. Barbiturate Screen, Ur Negative Negative LAB CHEMISTRY METHOD 5 6:35 PM EST [facility] Benzodiazepine Screen, Ur Negative Negative LAB CHEMISTRY METHOD 5 6:35 PM EST [facility] Cocaine Screen, Ur Positive(A ) Negative LAB CHEMISTRY METHOD 5 6:35 PM EST [facility] Opiate Screen, Ur Negative Negative LAB CHEMISTRY METHOD 5 6:35 PM EST [facility] Cannabinoid (THC) Screen, Ur Positive(A ) Negative LAB CHEMISTRY METHOD 5 6:35 PM EST [facility] Comment:Specimens from patie nts taking pantoprazole sodium (Protonix) have been shown to produce false positive results. Oxycodone Screen, Ur Negative Negative LAB CHEMISTRY METHOD 5 6:35 PM EST [facility] Fentanyl, Ur Negative Negative LAB CHEMISTRY METHOD 5 6:35 PM EST [facility] Urine Urine specimen obtained by clean catch procedure / Unknown Non-blood Collection / Unknown 08/21/2024 6:02 PM EST 08/21/2024 6:09 PM EST Narrative [facility] - 08/21/2024 6:35 PM EST [...] Za LUO LAB URINE ORDERABLES Final Result [facility] [address] [place] [address], * (ABNORMAL) Urinalysis with reflex microscopic and culture (08/21/2024 6:00 PM EST) Specific [place] Urine 1.019 1.003 - 1.030 LAB URINALYSIS - AUTOMATED METHOD 08/21/2024 6:43 PM EST [facility] pH, Urine 6.5 5.0 - 8.0 pH LAB URINALYSIS - AUTOMATED METHOD 08/21/2024 6:43 PM [facility] Leukocytes, Urine Trace(A) Negative LAB URINALYSIS - AUTOMATED METHOD 08/21/2024 6:43 PM [facility] Nitrite, Urine Negative Negative LAB URINALYSIS - AUTOMATED METHOD 08/21/2024 6:43 PM [facility] Protein, Urine Negative <=Trace mg/dL LAB URINALYSIS - AUTOMATED METHOD 08/21/2024 6:43 PM [facility] Glucose, Urine Negative Negative mg/dL LAB URINALYSIS - AUTOMATED METHOD 08/21/2024 6:43 PM [facility] Ketones, Urine Negative Negative mg/dL LAB URINALYSIS - AUTOMATED METHOD 08/21/2024 6:43 PM [facility] Urobilinogen , Urine 1.0 0.2 - 1.0 mg/dL LAB URINALYSIS - AUTOMATED METHOD 08/21/2024 6:43 PM [facility] Bilirubin, Urine Negative Negative LAB URINALYSIS - AUTOMATED METHOD 08/21/2024 6:43 PM [facility] Blood, Urine Negative Negative LAB URINALYSIS - AUTOMATED METHOD 08/21/2024 6:43 PM [facility] RBC, Urine 3.9 0 - 4 /HPF LAB URINALYSIS - AUTOMATED METHOD 08/21/2024 6:43 PM [facility] WBC, Urine 4.4(H) 0 - 4 /HPF LAB URINALYSIS - AUTOMATED METHOD 08/21/2024 6:43 PM [facility] Squamous Epithelial, Urine >100(H) 0 - 60 /LPF LAB URINALYSIS - AUTOMATED METHOD 08/21/2024 6:43 PM [facility] Bacteria, Urine Moderate(A) Negative /HPF LAB URINALYSIS - AUTOMATED METHOD 08/21/2024 6:43 PM [facility] Hyaline Casts, Urine 2.4 0 - 3 /LPF LAB URINALYSIS - AUTOMATED METHOD 08/21/2024 6:43 PM EST [facility] Urine Urine specimen obtained by clean catch procedure / Unknown Non-blood Collection / Unknown 08/21/2024 6:00 PM EST 08/21/2024 6:09 PM EST Ramiro Miguelrussell Maier DO LAB URINE ORDERABLES Final Resu lt [facility] [address] [place] [address], [place] [phone] * Vaughn urine culture tube (08/21/2024 6:00 PM EST) Extra Tube Hold for add-ons. 08/21/2024 8:01 PM EST [facility] Comment:Auto resulted. Urine Urine specimen obtained by clean catch procedure / Unknown Non-blood Collection / Unknown 08/21/2024 6:00 PM EST 08/21/2024 6:09 PM EST Ramiro Ryan Livier [facility]INLEY LAB URINE ORDERABLES Final Resu lt Performing Organization Address [facility]/ZIP Co de Phone Number [facility] [address] [place] [address], [place] [phone] * Culture urine (08/21/2024 6:00 PM EST) Culture, Urine 10,000-49,000 CFU/mL Mixed urogenital geovanny, no uropathogens present. Suggest repeat specimen if clinically indicated. 08/22/2024 2:06 PM EST [facility] Urine Urine specimen obtained by clean catch procedure / Unknown Non-blood Collection / Unknown 08/21/2024 6:00 PM EST 08/21/2024 6:43 PM EST Ramiro Miguelrussell Maier DO LAB MICROBIOLOGY - GENERAL ORDE RABLES Final Result Performing Organization Address City/[facility] Co de Phone Number [facility] [address] [place] [address], * CT Head wo Contrast (08/21/2024 5:00 [...] GEMUSE QTc 443 ms GEMUSE P Wave [place] 58 degrees GEMUSE R [place] 11 degrees GEMUSE T [place] 43 degrees GEMUSE ECG Interpretation Normal sinus [...] K/mcL LAB HEMETOLOGY METHOD 08/21/2024 4:06 PM [facility] RBC 4.60 3.80 - 4.80 M/mcL LAB HEMETOLOGY METHOD 08/21/2024 4:06 PM [facility] Hemoglobin 12.2 11.5 - 16.0 g/dL LAB HEMETOLOGY METHOD 08/21/2024 4:06 PM [facility] Hematocrit 37.6 35.0 - 47.0 % LAB HEMETOLOGY METHOD 08/21/2024 4:06 PM [facility] MCV 82.6 79.0 - 98.0 FL LAB HEMETOLOGY METHOD 08/21/2024 4:06 PM [facility] MCH 26.8(L) 27.0 - 32.0 pcg LAB HEMETOLOGY METHOD 08/21/2024 4:06 PM [facility] MCHC 32.4 32.0 - 37.0 g/dL LAB HEMETOLOGY METHOD 08/21/2024 4:06 PM [facility] RDW 15.2(H) 11.0 - 15.0 % LAB HEMETOLOGY METHOD 08/21/2024 4:06 PM [facility] Platelets 235 130 - 400 K/mcL LAB HEMETOLOGY METHOD 08/21/2024 4:06 PM [facility] MPV 10.3 7.0 - 11.0 FL LAB HEMETOLOGY METHOD 08/21/2024 4:06 PM [facility] NRBC 0.0 <1.0 % LAB HEMETOLOGY METHOD 08/21/2024 4:06 PM [facility] NRBC Absolute 0.00 <0.10 K/mcL LAB HEMETOLOGY METHOD 08/21/2024 4:06 PM [facility] Neutrophils Relative 49.4 % LAB HEMETOLOGY METHOD 08/21/2024 4:06 PM [facility] Lymphocytes Relative 40.3 % LAB HEMETOLOGY METHOD 08/21/2024 4:06 PM [facility] Monocytes Relative 7.7 % LAB HEMETOLOGY METHOD 08/21/2024 4:06 PM [facility] Eosinophils Relative 2.2 % LAB HEMETOLOGY METHOD 08/21/2024 4:06 PM [facility] Basophils Relative 0.2 % LAB HEMETOLOGY METHOD 08/21/2024 4:06 PM [facility] Immature Granulocytes Relative 0.2 % LAB HEMETOLOGY METHOD 08/21/2024 4:06 PM [facility] Neutrophils Absolute 2.26 1.50 - 7.00 K/mcL LAB HEMETOLOGY METHOD 08/21/2024 4:06 PM [facility] Lymphocytes Absolute 1.84 1.00 - 5.00 K/mcL LAB HEMETOLOGY METHOD 08/21/2024 4:06 PM [facility] Monocytes Absolute 0.35 0.20 - 1.00 K/mcL LAB HEMETOLOGY METHOD 08/21/2024 4:06 PM [facility] Eosinophils Absolute 0.10 0.00 - 0.50 K/mcL LAB HEMETOLOGY METHOD 08/21/2024 4:06 PM EST [facility] Basophils Absolute 0.01 0.00 - 0.20 K/[facility] LAB HEMETOLOGY METHOD 08/21/2024 4:06 PM EST [facility] Immature Granulocytes Absolute 0.01 0.00 - 0.03 K/[facility] LAB HEMETOLOGY METHOD 08/21/2024 4:06 PM [facility] Blood Venous blood specimen / Unknown Venipuncture / Unknown 08/21/2024 3:50 PM EST 08/21/2024 3:56 PM EST [employer] [facility] LAB BLOOD ORDERABLES Final Resu lt Performing Organization Address City/[facility]/ZIP Co de Phone Number [facility] [address] [place] [address], [place] [phone] * Lipase (08/21/2024 3:50 PM EST) Lipase 34 13 - 75 unit/L LAB CHEMISTRY METHOD 08/21/2024 4:26 PM [facility] Blood Venous blood specimen / Unknown Venipuncture / Unknown 08/21/2024 3:50 PM EST 08/21/2024 3:56 PM EST [employer] Davis Livier LAB BLOOD ORDERABLES Final Resu lt Performing Organization Address City/[facility]/ZIP Co de Phone Number [facility] [address] [place] [address], [place] [phone] * (ABNORMAL) Comprehensive metabolic panel (08/21/2024 3:50 PM EST) Sodium 144 133 - 145 mmol/L LAB CHEMISTRY METHOD 08/21/2024 4:26 PM [facility] Potassium 3.5 3.5 - 5.5 mmol/L LAB CHEMISTRY METHOD 08/21/2024 4:26 PM [facility] Chloride 113(H) 96 - 110 mmol/L LAB CHEMISTRY METHOD 08/21/2024 4:26 PM [facility] CO2 23 21 - 32 mmol/L LAB CHEMISTRY METHOD 08/21/2024 4:26 PM [facility] Anion Gap 8 3 - 11 LAB CHEMISTRY METHOD 08/21/2024 4:26 PM [facility] Glucose 108(H) 70 - 100 mg/dL LAB CHEMISTRY METHOD 08/21/2024 4:26 PM [facility] BUN 13 5 - 25 mg/dL LAB CHEMISTRY METHOD 08/21/2024 4:26 PM [facility] Creatinine 0.54 0.50 - 1.10 mg/dL LAB CHEMISTRY METHOD 08/21/2024 4:26 PM [facility] eGFR 106 >=60 mL/min/1. 73m2 LAB CHEMISTRY METHOD 08/21/2024 4:26 PM [facility] Comment:Calculation based on the??Chronic Kidney Disease Epidemiology Collaboration (CKD-EPI) equation refit??without adjustment for race. BUN/Creatinine Ratio 24.1 LAB CHEMISTRY METHOD 08/21/2024 4:26 PM [facility] Calcium 9.3 8.5 - 10.5 mg/dL LAB CHEMISTRY METHOD 08/21/2024 4:26 PM [facility] AST (SGOT) 27 10 - 42 unit/L LAB CHEMISTRY METHOD 08/21/2024 4:26 PM [facility] ALT (SGPT) 36 10 - 60 unit/L LAB CHEMISTRY METHOD 08/21/2024 4:26 PM [facility] Alkaline Phosphatase 109 42 - 121 unit/L LAB CHEMISTRY METHOD 08/21/2024 4:26 PM [facility] Total Protein 7.2 6.0 - 8.0 g/dL LAB CHEMISTRY METHOD 08/21/2024 4:26 PM [facility] Albumin 3.9 3.2 - 5.0 g/dL LAB CHEMISTRY METHOD 08/21/2024 4:26 PM EST [facility] Total Bilirubin 0.2 0.0 - 1.4 mg/dL LAB CHEMISTRY METHOD 08/21/2024 4:26 PM EST [facility] Blood Venous blood specimen / Unknown Venipuncture / Unknown 08/21/2024 3:50 PM EST 08/21/2024 3:56 PM EST us Ramiro Maier DO LAB BLOOD ORDERABLES Final Resu lt [facility] [address] [place] [address], [place] [phone] from Last 3 Months Insurance MEDICAID - [place] Care Teams Manager Transport Relationship Specialty Start Date End Date Physician, No Pcp PCP - General 08/21/24
--- OUTSIDE RECORDS SUMMARY | 2024-11-11 12:11 | XMS_ITS | Encounter Summary ---
Author Organization [employer] Address [address] 7[address] [place] [address] Care Team Providers Care Reel Worker Name Role Phone Amber Quiroz MD Primary Care Provider [phone] Encounter Details Date Type Department Care Team ([facility] st Contact Info) Description 11/04/2024 Patient Outreach [facility] [address] [place], [place] [phone] Amber Quiroz MD [address] [place], [place] [phone] Social History Tobacco Use Types Packs/Day Years [...] Description 11/12/2024 1:30 PM EDT Office Visit [facility] [address] [place] [address] [phone] Amber Quiroz MD [address] [place] [phone] documented as of this encounter Visit Diagnoses Not on filedocumented in this encounter Care Teams Reel Worker Relationship Specialty Start Date End Date Amber Quiroz MD [address] [place] [phone] PCP - General Family Medicine 07/03/18 documented as of this encounter
--- OUTSIDE RECORDS SUMMARY | 2024-11-11 12:11 | XMS_ITS | Encounter Summary ---
Author Organization [employer] Address [address] [facility] 7t [place] [address] Care Team Providers Care Child Development Teacher Name Role Phone Amber Quiroz MD Primary Care Provider [phone] Reason for Visit * Reason Onset Date Comments Med Refill 06/21/2024 Encounter Details Date Type Department Care Team ([facility] st Contact Info) Description 06/21/2024 Telephone [facility] [address] [place], [place] [phone] Amber Quiroz MD [address] [place], [place] [phone] Med Refill Social History Tobacco Use Types [...] t he electric, gas, oil or water [employer] threatened to shut off services in your [...] extra strength with no relief. Please advise. GRADALL OPERATOR checked 06/21/24. Last refill of Oxycodone 5mg 11/30/23 qty 12. * Telephone Encounter - Gemma Oliveira - 06/21/2024 10:12 AM EST TC from pt requesting medication refill. Medications needing refill : oxyCODONE (Oxy-IR) 5 MG immediate release capsule To be sent to: [facility] - [place], [place] - [address] [facility] documented in this encounter Plan of Treatment Upcoming Encounters Date Type Department Care Team (Late st Contact Info) Description 11/12/2024 1:30 PM EDT Office Visit [facility] [address] [place] [address] Amber Quiroz MD [address] [place] [address] documented as of this encounter Visit Diagnoses Not on filedocumented in this encounter Care Teams Child Development Teacher Relationship Specialty Start Date End Date Amber Quiroz MD [address] [place] [phone] PCP - General Family Medicine 07/03/18 documented as of this encounter
--- OUTSIDE RECORDS SUMMARY | 2024-11-11 12:11 | XMS_ITS | Encounter Summary ---
Author Organization [employer] Address [address] [facility] 7t [place] [address] Care Team Providers Care Dry Plasterer Name Role Phone Amber Quiroz MD Primary Care Provider [phone] Encounter Details Date Type Department Care Team (Late st Contact Info) Description 03/22/2023 Orders Only [facility] [address] [place] [address] [phone] Amber Quiroz MD [address] [place] [phone] ASCUS of cervix with negative high risk [...] Visit [facility] [address] [place] [address] [phone] Amber Quiroz MD [address] [place] [address] [phone] documented as of this encounter Visit Diagnoses Diagnosis ASCUS of cervix with negative high risk HPV- Primary History of cervical dysplasia Personal history of cervical dysplasia documented in this encounter Care Teams Dry Plasterer Relationship Specialty Start Date End Date Amber Quiroz MD [address] [place] [address] PCP - General Family Medicine 07/03/18 documented as of this encounter
--- OUTSIDE RECORDS SUMMARY | 2024-11-11 12:11 | XMS_ITS | Encounter Summary ---
Author Organization [employer] Address [address] 7t [place] [address] Care Team Providers Care Copra Processor Name Role Phone Amber Quiroz MD Primary Care Provider [phone] Encounter Details Date Type Department Care Team ([facility] st Contact Info) Description 12/12/2023 Orders Only [facility] [address] [place], [place] [phone] Amber Quiroz MD [address] [place], [place] [phone] Nephrolithiasis (Primary Dx) Social History Tobacco Use [...] PM EDT Office Visit [facility] [address] [place] [address] Amber Quiroz MD [address] [place] [phone] documented as of this encounter Visit Diagnoses Diagnosis Nephrolithiasis- Primary Calculus of kidney documented in this encounter Care Teams Copra Processor Relationship Specialty Start Date End Date Amber Quiroz MD [address] [place] [phone] PCP - General Family Medicine 07/03/18 documented as of this encounter
--- OUTSIDE RECORDS SUMMARY | 2024-11-11 12:11 | XMS_ITS | Encounter Summary ---
Author Organization [employer] Address [address] [facility] 7t [place] [address] Care Team Providers Care Mat Repairer Name Role Phone Amber Quiroz MD Primary Care Provider [phone] Encounter Details Date Type Department Care Team (Late st Contact Info) Description 04/05/2023 Orders Only [facility] [address] [place] [address] Anabell Martinez LPN Social History Tobacco Use [...] Visit [facility] [address] [place] [address] Amber Quiroz MD [address] [place], [place] [phone] documented as of this encounter Visit Diagnoses Not on filedocumented in this encounter Care Teams Mat Repairer Relationship Specialty Start Date End Date Amber Quiroz MD [address] [place] [address] [phone] PCP - General Family Medicine 07/03/18 documented as of this encounter
--- OUTSIDE RECORDS SUMMARY | 2024-11-11 12:11 | XMS_ITS | Encounter Summary ---
Author Organization [employer] Address [address] [facility] 7t [place] [address] Care Team Providers Care Guard Immigration Name Role Phone Amber Quiroz MD Primary Care Provider [phone] Reason for Visit * Reason Comments Med Refill Encounter Details Date Type Department Care Team ([facility] st Contact Info) Description 06/01/2023 Refill [facility] [address] [place], [place] [phone] Amber Quiroz MD [address] [place], [place] [phone] Pain Social History Tobacco Use Types Packs/Day [...] the past 12 months, has t he [id number], [employer], oil or water company threatened to shut [...] Office Visit [facility] [address] [place] [address] Amber Quiroz MD [address] [place] [address] documented as of this encounter Visit Diagnoses Diagnosis Pain Generalized pain documented in this encounter Care Teams Guard Immigration Relationship Specialty Start Date End Date Amber Quiroz MD [address] [place] [address] PCP - General Family Medicine 07/03/18 documented as of this encounter
--- OUTSIDE RECORDS SUMMARY | 2024-11-11 12:11 | XMS_ITS | Encounter Summary ---
Author Organization [employer] Address [address] [facility] 7 [place] [address] Care Team Providers Care Casting Chipper Name Role Phone Amber Quiroz MD Primary Care Provider [phone] Reason for Visit * Reason Comments Med Refill Encounter Details Date Type Department Care Team ([facility] st Contact Info) Description 11/29/2023 Refill [facility] [address] [place], [place] [phone] Charleen Latif MD [address] [place], [place] [phone] Nephrolithiasis Social History Tobacco Use Types Packs/Day [...] the past 12 months, has t he [employer], [employer], oil or water company threatened to shut [...] 11/12/2024 1:30 PM EDT Office Visit [facility] [address] [place] [address] Amber Quiroz MD [address] [place] [address] documented as of this encounter Visit Diagnoses Diagnosis Nephrolithiasis Calculus of kidney documented in this encounter Care Teams Casting Chipper Relationship Specialty Start Date End Date Amber Quiroz MD [address] [place] [address] PCP - General Family Medicine 07/03/18 documented as of this encounter
--- OUTSIDE RECORDS SUMMARY | 2024-11-11 12:11 | XMS_ITS | Encounter Summary ---
Author Organization [employer] Address [address] [facility] 7t [place] [address] Care Team Providers Care County Court Judge Name Role Phone Amber Quiroz MD Primary Care Provider [phone] Reason for Visit * Reason Onset Date Comments Nurse Triage 01/11/2024 Encounter Details Date Type Department Care Team ([facility] st Contact Info) Description 01/11/2024 Telephone [facility] [address] [place], [place] [phone] Amber Quiroz MD [address] [place], [place] [phone] Nurse Triage Social History Tobacco Use Types [...] HDF appt tomorrow at 1030am with García CARD PLAYER. RX updated with pending HDF. Team tasked that if medication available from PCP for [facility] * Telephone Encounter - Lacy Sahni LPN - 01/11/2024 3:31 PM EDT Triage in process. Patient requesting pain medication for kidney stone pain in [facility] 01/07/24-01/08/24. Patient not seeing any [...] worse Override Notes: Seen and treated at [facility] known kidney stones wants something [...] Office Visit [facility] [address] [place] [address] [phone] Amber Quiroz MD [address] [place] [address] [phone] documented as of this encounter Visit Diagnoses Not on filedocumented in this encounter Care Teams County Court Judge Relationship Specialty Start Date End Date Amber Quiroz MD [address] [place] [address] [phone] PCP - General Family Medicine 07/03/18 documented as of this encounter
--- OUTSIDE RECORDS SUMMARY | 2024-11-11 12:11 | XMS_ITS | Encounter Summary ---
Author Organization [facility] Address [address] [place] [address] Care Team Providers Care Supervisor Personnel Clerks Name Role Phone Physician, No Pcp Primary Care Provider Unavaila ble Encounter Details Date Type Department Care Team (Late st Contact Info) Description 09/25/2024 Lab Requisition [facility] - Main Lab [address] [facility] [place] [address] Zachery Chi PA [address] [place] [address] Calculus of ureter Social History [...] PA LAB BLOOD ORDERABLES Final Res ult [facility] [address] [place] [address], documented in this encounter Visit Diagnoses Diagnosis Calculus of ureter documented in this encounter Care Teams Supervisor Personnel Clerks Relationship Specialty Start Date End Date Physician, No Pcp PCP - General 08/21/24 documented as of this encounter
[2024-11-11 12:23] LABS: Alkaline Phosphatase 121 U/L (39-117)
[2024-11-11] MEDS: diphenhydrAMINE HCL 50 MG/ML VIAL 12.5 MG IVPUSH (12:27)
[2024-11-11] MEDS: droPERidol 5 MG/2 ML VIAL 1.25 MG IVPUSH (12:28)
[2024-11-11 13:10] LABS: Appearance Urine Clear; Color Urine DK YELLOW; Glucose Urine UA Negative (Negative); Leukocyte Esterase Urine Negative (Negative); UMIC TRIGGER UACC YES; Urine Blood Large (3+) (Negative); Urine Ketones Negative (Negative); Urine Protein 300 (3+) mg/dL (Neg-Trace)
[2024-11-11 13:23] LABS: Bacteria Urine Trace (None Seen); Hyaline Casts Urine 0-2 /LPF (0-2); Nitrite Urine Negative (Negative); RBC Urine >20 /HPF (0-2); Squamous Epithelial Cell Urine 0-2 /HPF (0-2); WBC Urine 0-5 /HPF (0-5)
[2024-11-11 13:47] VITALS: BP 143/80; PULSE 77; RESP 18; TEMP 37.2; O2SAT 99
== END 2024-11-11 13:47 | disposition home or self-care (01) ==
PROVIDERS: Emergency Provider Student in an Organized Health Care Education/Training Program; PCP Family Medicine
DX: R31.9 Hematuria, unspecified (principal); G89.4 Chronic pain syndrome; R10.30 Lower abdominal pain, unspecified; I10 Essential (primary) hypertension; E78.00 Pure hypercholesterolemia, unspecified; Z86.718 Personal history of other venous thrombosis and embolism
CPT/HCPCS: 36415; 74176; 80048; 80076; 81001; 81003; 83690; 85025; 96361; 96374; 96375; 96376; 99283; 99284; J1200; J1790; J2270; J2405

== ENCOUNTER → 2024-11-11 11:14 | Outpatient (BNV) | payer MEDICAID, SELFPAY | PROVIDERS: Emergency Provider Student in an Organized Health Care Education/Training Program; PCP Family Medicine; Visit Provider Radiology Diagnostic Radiology | DX: R10.9 Unspecified abdominal pain (principal) | CPT/HCPCS: 74176 ==

== ENCOUNTER 2024-11-14 05:18 | Emergency (ER) | payer MEDICAID, SELFPAY ==
--- NOTE | 2024-11-14 | ECG_ITS ---
Test Reason : CHEST PAIN Blood Pressure : */* mmHG Vent. Rate : 77 BPM Atrial Rate : 77 BPM P-R Int : 138 ms QRS Dur : 72 ms QT Int : 408 ms P-R-T Axes : 58 25 52 degrees QTcB Int : 461 ms Normal sinus rhythm Normal ECG When compared with ECG of 13-Mar-2021 01:37, Nonspecific T wave abnormality no longer evident in Inferior leads Referred By: Generic ED Physician Electronically Signed By: BRENDEN KERN MD
--- NOTE | ~2024-11-14 | XR_ITS ---
EXAMINATION: XR CHEST 1 VIEW HISTORY: chest pain COMPARISON: Comparison is made with the prior examination dated 03/13/2021. FINDINGS: A single AP portable view of the chest performed at 7:54 AM is submitted. The lungs are expanded and clear. There is no pleural effusion, pneumothorax, or pulmonary vascular congestion. The heart is normal in size. There is degenerative disc disease of the spine. XR/XR chest 1V IMPRESSION: No acute cardiopulmonary abnormality. Electronically signed by: Misha Curtis MD 11/14/2024 08:14 AM EDT
[2024-11-14 05:25] VITALS: BP 103/57; BP 134/95; PULSE 61; PULSE 85; RESP 11; TEMP 36.8; O2SAT 98; BMI 18.6
[2024-11-14 05:41] LABS: MANUAL DIFF FLAG NO
[2024-11-14 05:43] LABS: Basophils Percent Auto 0.2 % (0-2); Eosinophils Absolute Auto 0.1 X10*3/uL (0.0-0.4); Eosinophils Percent Auto 2.1 % (0-4); Hematocrit 37.7 % (37.0-47.0); Hemoglobin 12.4 g/dl (12.0-16.0); Lymphocytes Absolute Auto 1.8 X10*3/uL (1.2-4.9); Lymphocytes Percent Auto 32.8 % (20-40); Mean Corpuscular HGB Conc 32.9 g/dl (31.0-35.0); Mean Corpuscular Hemoglobin 27.4 pg (27.0-33.0); Mean Corpuscular Volume 83.4 fL (80.0-98.0); Mean Platelet Volume 9.5 fL (9.4-12.3); Monocytes Absolute Auto 0.4 X10*3/uL (0.1-1.2); Monocytes Percent Auto 7.9 % (2-11); Neutrophils Absolute Auto 3.1 x10*3/uL (2.0-8.3); Platelet Count 270 X10*3/uL (160-400); Red Blood Count 4.52 X10*6/uL (4.20-5.50); Red Cell Distribution Width 15.2 % (11.0-16.0); White Blood Count 5.3 X10*3/uL (4.8-10.8)
[2024-11-14 06:00] LABS: Alanine Aminotransferase 37 U/L (0-31); Albumin Level 4.4 g/dL (3.5-5.0); Alkaline Phosphatase 107 U/L (39-117); Anion Gap 14 (12-20); Aspartate Amino Transferase 44 U/L (5-31); Bilirubin Total 0.3 mg/dL (0.0-1.0); Blood Urea Nitrogen 16 mg/dL (9-16); Calcium 9.3 mg/dL (8.4-10.2); Carbon Dioxide 23 mmol/L (22-29); Chloride 110 mmol/L (96-108); Creatinine Clr Calc Pharmacy 66.7; Estimated Glomerular Filt Rate > 60; Glucose Random 97 mg/dL (60-115); Potassium 3.8 mmol/L (3.3-5.1); Sodium 143 mmol/L (135-145); Total Protein 7.5 g/dL (6.5-8.0)
[2024-11-14 06:05] LABS: Troponin-I High Sensitivity < 2.7 ng/L (<3.5-17.0)
--- NOTE | 2024-11-14 07:40 | ED.CHESTPAIN ---
HPI - Chest Pain General Chief Complaint: Chest Pain Stated Complaint: CP Sharp & radiating down L arm, Nausea Time Seen by Provider: 11/14/24 07:35 Source: patient Mode of arrival: EMS Limitations: no limitations History of Present Illness HPI narrative: This is a 58 years old female presented to the emergency department complaining of left sinus pain pain is described as sharp also complaining of nausea and vomiting. Pain started few hours ago. She is also complaining of chronic left flank pain. The patient is a frequent utilizer of the emergency department MD complaint: chest pain Onset (ago): hour(s) Onset: during rest Pain location: substernal and left chest Severity: moderate Quality: sharp Relieving factors: nothing Exacerbating factors: nothing Context: recent illness Risk Factors Coronary artery disease risk factors: none Related Data On Oral Contraceptives: No Home Medications ?Medication ?Instructions ?Recorded ?Confirmed albuterol sulfate 90 mcg/actuation 2 puff PO Q4-6H PRN dyspnea 11/26/20 11/26/20 aerosol inhaler (ProAir HFA) amlodipine 10 mg tablet 1 tab PO DAILY 11/26/20 11/26/20 ascorbic acid (vitamin C) 250 mg 1 tab PO BID 11/26/20 11/26/20 tablet atorvastatin 10 mg tablet 1 tab PO DAILY 11/26/20 11/26/20 clonidine HCl 0.2 mg tablet 1 tab PO BID PRN panic attack 11/26/20 11/26/20 cyanocobalamin (vitamin B-12) 500 1 tab PO DAILY 11/26/20 11/26/20 mcg tablet docusate sodium 100 mg capsule 1 - 2 cap PO BEDTIME PRN 11/26/20 11/26/20 constipation fluoxetine 20 mg capsule 3 cap PO QAM 11/26/20 11/26/20 gabapentin 100 mg capsule 1 cap PO TID PRN anxiety 11/26/20 11/26/20 gabapentin 400 mg capsule 1 cap PO BEDTIME 11/26/20 11/26/20 loratadine 10 mg tablet 1 tab PO DAILY 11/26/20 11/26/20 loratadine 10 mg tablet 1 tab PO DAILY 11/26/20 11/26/20 mirtazapine 30 mg tablet 1 tab PO BEDTIME 11/26/20 11/26/20 mirtazapine 30 mg tablet 1 tab PO BEDTIME 11/26/20 11/26/20 ondansetron HCl 4 mg tablet 1 tab PO Q8H PRN nausea 11/26/20 11/26/20 polyvinyl alcohol 1.4 % eye drops 1 drp ophthalmic (eye) TID 11/26/20 11/26/20 (Artificial Tears (polyvinyl alcohol)) quetiapine 25 mg tablet 1 tab PO BID PRN anxiety 11/26/20 11/26/20 topiramate 25 mg tablet 1 tab PO BID 11/26/20 11/26/20 zolpidem 10 mg tablet 1 tab PO BEDTIME PRN insomnia 11/26/20 11/26/20 Previous Rx's ?Medication ?Instructions ?Recorded tramadol 50 mg tablet 50 mg PO Q8H PRN pain #3 tabs 11/26/20 nitrofurantoin 100 mg PO BID #14 caps 05/26/21 monohydrate/macrocrystals 100 mg capsule (Macrobid) phenazopyridine 100 mg tablet 100 mg PO TID PRN pain 6 doses #6 05/26/21 (Pyridium) tabs cefuroxime axetil 250 mg tablet 250 mg PO BID 7 days #14 tabs 07/15/21 morphine 15 mg immediate release 15 mg PO BID PRN pain #8 tabs 07/15/21 tablet docusate sodium 100 mg capsule 100 mg PO BID #20 caps 07/21/21 (Colace) sennosides 8.6 mg tablet (senna) 8.6 mg PO BEDTIME #14 tabs 07/21/21 docusate sodium 100 mg capsule 100 mg PO BID PRN Constipation #14 11/23/21 (Colace) caps nitrofurantoin 100 mg PO BID uti 7 days #14 caps 11/23/21 monohydrate/macrocrystals 100 mg capsule (Macrobid) ondansetron 4 mg disintegrating 4 mg PO Q6H nausea/vomiting #14 11/23/21 tablet tabs cephalexin 500 mg capsule 500 mg PO Q8H 7 days #21 caps 08/02/22 ondansetron 4 mg disintegrating 4 mg PO Q8H PRN nausea and 03/02/23 tablet vomiting #10 tabs phenazopyridine 200 mg tablet 200 mg PO TID PRN pain 6 doses #6 03/02/23 (Pyridium) tabs acetaminophen 325 mg capsule 650 mg (2 x 325 mg) PO Q6H PRN 04/01/24 (Tylenol) pain #30 caps cefdinir 300 mg capsule 300 mg PO BID 5 days #10 caps 04/01/24 cephalexin 500 mg capsule 500 mg PO BID #14 caps 07/15/24 ondansetron HCl 4 mg tablet 4 mg PO Q8H PRN nausea and 07/15/24 vomiting #10 tabs oxycodone 5 mg tablet 5 mg PO Q6H PRN pain, moderate #10 07/15/24 tabs tamsulosin 0.4 mg capsule (Flomax) 0.4 mg PO DAILY #6 caps 07/15/24 dicyclomine 10 mg capsule 10 mg PO BID #14 caps 08/14/24 ondansetron 4 mg disintegrating 4 mg PO Q8H PRN nausea and 08/14/24 tablet vomiting #10 tabs cefuroxime axetil 250 mg tablet 250 mg PO BID 7 days #14 tabs 10/17/24 ondansetron 4 mg disintegrating 4 mg PO Q8H PRN nausea and 10/17/24 tablet vomiting #7 tabs oxycodone 5 mg tablet 5 mg PO Q8H PRN severe pain (scale 10/17/24 score 7-10) #9 tabs tamsulosin 0.4 mg capsule (Flomax) 0.4 mg PO BEDTIME #14 caps 10/17/24 Allergies Allergy/AdvReac Type Severity Reaction Status Date / Time aspirin [ASA] Allergy Intermediate RASH, Verified 11/14/24 05:30 nausea and vomiting ibuprofen [IBUPROFEN] Allergy Intermediate RASH Verified 11/14/24 05:30 nicotine Allergy Intermediate RASH FROM Verified 11/14/24 05:30 NICOTINE PATCH, nausea and vomiting ketorolac [From TORADOL] Allergy Mild RAPID HR Verified 11/14/24 05:30 AND HIVES haloperidol [From Haldol] Allergy Anaphylaxis Verified 11/14/24 05:30 metoclopramide [From Reglan] Allergy Unknown Verified 11/14/24 05:30 Review of Systems Constitutional: Constitutional: Reports no additional constitutional complaints Cardiovascular: Cardiovascular: Reports as per HPI ( ) and Reports chest pain Respiratory: Respiratory: Reports no additional respiratory complaints PMFSH Past Medical History Attestation statement: The following information was validated with the patient. Source: unable to obtain Medical History delivery delivered HTN (hypertension) Anemia Hypercholesteremia DVT (deep venous thrombosis) Kidney stones Surgical History Total knee replacement status Social History Social History Unable to assess alcohol history related to: Unknown Alcohol intake: never Patient Tobacco Use Status: Current everyday Tobacco user Smoked in Last 30 Days: No Use of substances other than those prescribed or required for medical reasons: No Substance Use Type: Prescription Drugs Advance Directives: No Advance Directives Information Provided: No Do you have a plan to hurt others: No Plan Patient : No Physical Exam Vital Signs: Vital Signs: Last Vital Signs Temp 98.2 F 11/14/24 05:25 Pulse 61 11/14/24 05:25 Resp 11 L 11/14/24 05:25 BP 103/57 L 11/14/24 05:25 Pulse Ox 98 11/14/24 05:25 O2 Del Method Room Air 11/14/24 05:25 BMI result Body Mass Index 18.6 No acute distress comfortable in the stretcher Const: General: cooperative Orientation/consciousness: patient oriented x3 HEENT: Head: Yes normal to inspection General nose exam: Normal external nose present Face and sinus: Yes normal facial exam Neck: Neck: Yes normal visual inspection and Yes full ROM Chest: Chest palpation & inspection: normal inspection of the chest Resp: Effort & Inspection: normal respiratory effort Auscultation: clear to auscultation bilaterally Cardio: Jugular venous distension: no JVD Rate: regular rate Rhythm: regular rhythm GI: Inspection: Yes normal to inspection Skin: General skin exam: no rashes or lesions noted Neuro: General: patient oriented x3 Cranial nerves: Yes CN's II-XII intact bilaterally Course Reevaluation(s) Reevaluation #1: She is feeling better at this time troponin x2 negative D-dimer negative anticipate discharge Time: 09:07 Medications Administered Discontinued Medications Generic Name Dose Route Start Last Admin Trade Name Freq PRN Reason Stop Dose Admin Diazepam 2.5 mg 11/14/24 08:26 11/14/24 08:33 Diazepam 10 Mg/2 Ml Cartridge IVPUSH 11/14/24 08:27 2.5 mg STAT STA Administration Morphine Sulfate 4 mg 11/14/24 07:40 11/14/24 07:52 Morphine Sulfate 4 Mg/Ml Cartridge IVPUSH 11/14/24 07:41 4 mg ONCE ONE Administration Protocol Morphine Sulfate 4 mg 11/14/24 08:26 11/14/24 08:33 Morphine Sulfate 4 Mg/Ml Cartridge IVPUSH 11/14/24 08:27 4 mg ONCE ONE Administration Protocol Ondansetron HCl 4 mg 11/14/24 07:40 11/14/24 07:51 Ondansetron Hcl 4 Mg/2 Ml Vial IVPUSH 11/14/24 07:41 4 mg ONCE ONE Administration Medical Decision Making Medical Decision Making [facility] Narrative: Patient is here with chest pain the chest pain is the size sharp atypical we will obtain a chest x-ray electrocardiogram and reassessed 09:00 workup completed delta trop is flat D-dimer negative anticipate discharge ACS has been ruled out, PE he has been rule out, pneumothorax has been ruled out most likely musculoskeletal pain Differential Diagnosis Differential Diagnoses: The differential diagnosis associated with the presentation includes Acute coronary syndrome/musculoskeletal chest pain/PE Admission/Observation Consideration of admission/observation: Escalation of care including admission/observation considered Lab Data [facility] Lab Attestation statement: I reviewed the patient's lab results. 11/14/24 05:36 11/14/24 05:36 Labs: Lab Results 11/14/24 11/14/24 Range/Units 05:36 07:49 WBC 5.3 (4.8-10.8) X10*3/uL RBC 4.52 (4.20-5.50) X10*6/uL Hgb 12.4 (12.0-16.0) g/dl Hct 37.7 (37.0-47.0) % MCV 83.4 (80.0-98.0) fL MCH 27.4 (27.0-33.0) pg MCHC 32.9 (31.0-35.0) g/dl RDW 15.2 (11.0-16.0) % Plt Count 270 (160-400) X10*3/uL MPV 9.5 (9.4-12.3) fL Immature Gran % (Auto) 0.0 (0.0-0.4) % Neut % (Auto) 57.0 (45-73) % Lymph % (Auto) 32.8 (20-40) % [place] % (Auto) 7.9 (2-11) % Eos % (Auto) 2.1 (0-4) % Baso % (Auto) 0.2 (0-2) % Lymph # (Auto) 1.8 (1.2-4.9) X10*3/uL [place] # (Auto) 0.4 (0.1-1.2) X10*3/uL Eos # (Auto) 0.1 (0.0-0.4) X10*3/uL Baso # (Auto) 0.0 (0.0-0.2) X10*3/uL Abs Immat Gran (auto) 0.00 (0.00-0.03) X10*3/uL Absolute Neuts (auto) 3.1 (2.0-8.3) x10*3/uL Absolute Nucleated RBC 0.000 (0.0-0.012) X10*3/uL Nucleated RBC % (auto) 0.0 (0.0-0.2) /100WBC D-Dimer High Sensitivty 231 NG/ML Sodium 143 (135-145) mmol/L Potassium 3.8 (3.3-5.1) mmol/L Chloride 110 H (96-108) mmol/L Carbon Dioxide 23 (22-29) mmol/L Anion Gap 14 (12-20) BUN 16 (9-16) mg/dL Creatinine 0.64 (0.5-1.4) mg/dL Estim Creat Clear Calc 66.7 Estimated GFR > 60 Random Glucose 97 (60-115) mg/dL Calcium 9.3 D (8.4-10.2) mg/dL Total Bilirubin 0.3 (0.0-1.0) mg/dL AST 44 H (5-31) U/L ALT 37 H (0-31) U/L Alkaline Phosphatase 107 (39-117) U/L Troponin I High Sens < 2.7 < 2.7 (<3.5-17.0) ng/L Total Protein 7.5 (6.5-8.0) g/dL Albumin 4.4 (3.5-5.0) g/dL Independent Interpretation I performed an independent interpretation of an: EKG (Normal sinus rhythm no ST-T changes no ischemia) and Plain X-Ray Radiology Impression Discussion of test interpretation with radiology: I have reviewed the radiologist's reading. Radiologist Impression: No acute disease External Record Review External record reviewed: Inpatient record Prescription Management I considered prescription management with: Pain Medication Discharge Plan Discharge Clinical Impression: Chest pain Qualifiers: Chest pain type: unspecified Qualified Code(s): R07.9 - Chest pain, unspecified Patient Disposition: Home, Self-Care Instructions: Chest Pain (DC) Additional Instructions: Follow-up with your primary care physician return if worse Prescriptions: No Action quetiapine 25 mg tablet 1 tab PO BID PRN (Reason: anxiety) atorvastatin 10 mg tablet 1 tab PO DAILY polyvinyl alcohol [Artificial Tears (polyvin alc)] 1.4 % drops 1 drp ophthalmic (eye) TID ondansetron HCl 4 mg tablet 1 tab PO Q8H PRN (Reason: nausea) gabapentin 400 mg capsule 1 cap PO BEDTIME topiramate 25 mg tablet 1 tab PO BID clonidine HCl 0.2 mg tablet 1 tab PO BID PRN (Reason: panic attack) cyanocobalamin (vitamin B-12) 500 mcg tablet 1 tab PO DAILY ascorbic acid (vitamin C) 250 mg tablet 1 tab PO BID amlodipine 10 mg tablet 1 tab PO DAILY mirtazapine 30 mg tablet 1 tab PO BEDTIME mirtazapine 30 mg tablet 1 tab PO BEDTIME docusate sodium 100 mg capsule 1 - 2 cap PO BEDTIME PRN (Reason: constipation) gabapentin 100 mg capsule 1 cap PO TID PRN (Reason: anxiety) zolpidem 10 mg tablet 1 tab PO BEDTIME PRN (Reason: insomnia) albuterol sulfate [ProAir HFA] 90 mcg/actuation HFA aerosol inhaler 2 puff PO Q4-6H PRN (Reason: dyspnea) fluoxetine 20 mg capsule 3 cap PO QAM loratadine 10 mg tablet 1 tab PO DAILY loratadine 10 mg tablet 1 tab PO DAILY tramadol 50 mg tablet 50 mg PO Q8H PRN (Reason: pain) Qty: 3 0RF morphine 15 mg tablet 15 mg PO BID PRN (Reason: pain) Qty: 8 0RF cefuroxime axetil 250 mg tablet 250 mg PO BID 7 Days Qty: 14 0RF nitrofurantoin monohyd/m-cryst [Macrobid] 100 mg capsule 100 mg PO BID Qty: 14 0RF Rx Instructions: must administer with a meal/food phenazopyridine [Pyridium] 100 mg tablet 100 mg PO TID PRN (Reason: pain) Qty: 6 0RF sennosides [senna] 8.6 mg tablet 8.6 mg PO BEDTIME Qty: 14 0RF docusate sodium [Colace] 100 mg capsule 100 mg PO BID Qty: 20 0RF docusate sodium [Colace] 100 mg capsule 100 mg PO BID PRN (Reason: Constipation) Qty: 14 0RF ondansetron 4 mg tablet,disintegrating 4 mg PO Q6H Qty: 14 0RF nitrofurantoin monohyd/m-cryst [Macrobid] 100 mg capsule 100 mg PO BID 7 Days Qty: 14 0RF Rx Instructions: must administer with a meal/food cephalexin 500 mg capsule 500 mg PO Q8H 7 Days Qty: 21 0RF phenazopyridine [Pyridium] 200 mg tablet 200 mg PO TID PRN (Reason: pain) Qty: 6 0RF ondansetron 4 mg tablet,disintegrating 4 mg PO Q8H PRN (Reason: nausea and vomiting) Qty: 10 0RF cephalexin 500 mg capsule 500 mg PO BID Qty: 14 0RF ondansetron HCl 4 mg tablet 4 mg PO Q8H PRN (Reason: nausea and vomiting) Qty: 10 0RF tamsulosin [Flomax] 0.4 mg capsule 0.4 mg PO DAILY Qty: 6 0RF oxycodone 5 mg tablet 5 mg PO Q6H PRN (Reason: pain, moderate) Qty: 10 0RF Rx Instructions: Partial Fill upon patient request. ondansetron 4 mg tablet,disintegrating 4 mg PO Q8H PRN (Reason: nausea and vomiting) Qty: 10 0RF dicyclomine 10 mg capsule 10 mg PO BID Qty: 14 0RF cefuroxime axetil 250 mg tablet 250 mg PO BID 7 Days Qty: 14 0RF ondansetron 4 mg tablet,disintegrating 4 mg PO Q8H PRN (Reason: nausea and vomiting) Qty: 7 0RF tamsulosin [Flomax] 0.4 mg capsule 0.4 mg PO BEDTIME Qty: 14 0RF oxycodone 5 mg tablet 5 mg PO Q8H PRN (Reason: severe pain (scale score 7-10)) Qty: 9 0RF Rx Instructions: Partial Fill upon patient request. cefdinir 300 mg capsule 300 mg PO BID 5 Days Qty: 10 0RF acetaminophen [Tylenol] 325 mg capsule 650 mg PO Q6H PRN (Reason: pain) Qty: 30 0RF Print Language: Citizen [place]
[2024-11-14] MEDS: ondansetron HCL 4 MG/2 ML VIAL IVPUSH (07:51)
[2024-11-14] MEDS: Morphine Sulfate 4 MG/ML CARTRIDGE IVPUSH ×2 (07:52→08:33)
[2024-11-14 08:05] LABS: D Dimer High Sensitivity 231 NG/ML
--- NOTE | 2024-11-14 08:08 | PC.NURSE ---
Pt yelling for nurse. crying stating she has pain. pt informed that there is not another order for pain medicine, dr cai notified via tiger text that pt would like more pain medicine.
[2024-11-14 08:19] LABS: Troponin-I High Sensitivity < 2.7 ng/L (<3.5-17.0)
[2024-11-14] MEDS: diazePAM 10 MG/2 ML CARTRIDGE 2.5 MG IVPUSH (08:33)
[2024-11-14 09:27] VITALS: BP 111/80; PULSE 63; RESP 14; TEMP 36.6; O2SAT 99
== END 2024-11-14 09:28 | disposition home or self-care (01) ==
PROVIDERS: Emergency Provider Emergency Medicine; PCP Family Medicine
DX: R07.9 Chest pain, unspecified (principal); J34.89 Other specified disorders of nose and nasal sinuses; R11.2 Nausea with vomiting, unspecified
CPT/HCPCS: 36415; 71045; 80053; 84484; 85025; 85379; 93005; 96374; 96375; 96376; 99284; J2270; J2405; J3360

== ENCOUNTER → 2024-11-14 05:25 | Outpatient (BNV) | payer MEDICAID, SELFPAY | PROVIDERS: Emergency Provider Emergency Medicine; PCP Family Medicine; Visit Provider Internal Medicine Cardiovascular Disease | DX: R07.9 Chest pain, unspecified (principal) | CPT/HCPCS: 93010 ==

== ENCOUNTER → 2024-11-14 07:38 | Outpatient (BNV) | payer MEDICAID, SELFPAY | PROVIDERS: Emergency Provider Emergency Medicine; PCP Family Medicine; Visit Provider Radiology Diagnostic Radiology | DX: R07.9 Chest pain, unspecified (principal) | CPT/HCPCS: 71045 ==

== ENCOUNTER 2024-11-15 17:53 | Emergency (ER) | payer MEDICAID, SELFPAY ==
--- NOTE | ~2024-11-15 | US_ITS ---
CLINICAL HISTORY: bilat flank pain --- Additional Notes or Special Instructions: please evaluate for hydronephrosis US renal Comparison: 10/17/2024 Findings: Right kidney 9.9 cm length. No significant focal abnormality. 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 Left kidney 10.4 cm length. No significant focal abnormality. Small nonobstructing lower pole stone. No bilateral hydronephrosis. Normal bilateral renal echogenicity. Impression: Small nonobstructing left renal stone Otherwise unremarkable This document has been electronically signed by: Gee Lucero MD on 11/15/2024 19:44:29
[2024-11-15 18:01] VITALS: BP 180/90; BP 187/77; PULSE 86; PULSE 90; RESP 18; TEMP 36.7; O2SAT 97; O2SAT 98; BMI 38.5
--- NOTE | 2024-11-15 18:07 | ECG_ITS ---
Test Reason : chest pain Blood Pressure : */* mmHG Vent. Rate : 77 BPM Atrial Rate : 77 BPM P-R Int : 138 ms QRS Dur : 72 ms QT Int : 410 ms P-R-T Axes : 47 8 31 degrees QTcB Int : 463 ms Normal sinus rhythm Normal ECG When compared with ECG of 14-Nov-2024 05:25, No significant change was found Referred By: Jonathan Burgos Electronically Signed By: BRENDEN KERN MD
--- OUTSIDE RECORDS SUMMARY | 2024-11-15 19:00 | XMS_ITS | Encounter Summary ---
Author Organization [employer] Address [address] [place] [address] Care Team Providers Care Groundman Name Role Phone Amber Quiroz MD Primary Care Provider [phone] Encounter Details Date Type Department Care Team ([facility] st Contact Info) Description 11/24/2023 Telephone [facility] [address] [place], [place] [phone] Amber Quiroz MD [address] [place], [place] [phone] Social History Tobacco Use Types Packs/Day Years [...] Care Team (Late st Contact Info) Description 12/04/2024 2:00 PM EDT Clinical Support [facility] [address] [place] [address] documented as of this encounter Visit Diagnoses Not on filedocumented in this encounter Care Teams Groundman Relationship Specialty Start Date End Date Amber Quiroz MD [address] [place] [address] PCP - General Family Medicine 07/03/18 documented as of this encounter
--- OUTSIDE RECORDS SUMMARY | 2024-11-15 19:00 | XMS_ITS | Encounter Summary ---
Author Organization [employer] Address [address] [place] [address] Care Team Providers Care Hand Ironer Name Role Phone Amber Quiroz MD Primary Care Provider [phone] Encounter Details Date Type Department Care Team (Late st Contact Info) Description 11/16/2022 Abstract [facility] [address] [place], [place] [phone] Amber Quiroz MD [address] [place] [address] Social History Tobacco Use Types Packs/Day Years [...] Description 12/04/2024 2:00 PM EDT Clinical Support [facility] [address] [place], [place] [phone] documented as of this encounter Visit Diagnoses Not on filedocumented in this encounter Care Teams Hand Ironer Relationship Specialty Start Date End Date Amber Quiroz MD [address] [place] [address] PCP - General Family Medicine 07/03/18 documented as of this encounter
--- OUTSIDE RECORDS SUMMARY | 2024-11-15 19:00 | XMS_ITS | Encounter Summary ---
Author Organization [employer] Address [address] [facility] [address] [address] [place] [address] Care Team Providers Care Bus Repair Supervisor Name Role Phone Amber Quiroz MD Primary Care Provider [phone] Reason for Visit * Reason Onset Date Comments Appointment Request 11/22/2023 Encounter Details Date Type Department Care Team ([facility] st Contact Info) Description 11/22/2023 Telephone [facility] [address] [place], [place] [phone] Amber Quiroz MD [address] [place], [place] [phone] Appointment Request Social History Tobacco Use Types [...] t he electric, gas, oil or water [employer] threatened to shut off services in your [...] due tosleep difficulty. Please contact pt at [phone]. documented in this encounter Plan of Treatment Upcoming Encounters Date Type Department Care Team (Late st Contact Info) Description 12/04/2024 2:00 PM EDT Clinical Support [facility] [address] [place] [address] documented as of this encounter Visit Diagnoses Not on filedocumented in this encounter Care Teams Bus Repair Supervisor Relationship Specialty Start Date End Date Amber Quiroz MD [address] [place] [address] PCP - General Family Medicine 07/03/18 documented as of this encounter
--- OUTSIDE RECORDS SUMMARY | 2024-11-15 19:00 | XMS_ITS | Encounter Summary ---
Author Organization [employer] Address [address] [place] [address] Care Team Providers Care Mechanical Sound Technician Name Role Phone Amber Quiroz MD Primary Care Provider [phone] Reason for Visit * Reason Onset Date Comments Care Management 11/05/2024 [facility]- initial as sessment/ enrollment. Encounter Details Date Type Department Care Team ([facility] st Contact Info) Description 11/05/2024 Telephone [facility] [address] [place], [place] [phone] Amber Quiroz MD [address] [place], [place] [phone] Care Management ([facility]- initial assessment/ enrollment.) Social [...] got money to buy more: Never True 11/12/2024 Within the past 12 months,th e food you bought just didn't last and you didn't have enough money to get more: Never True Transportation Answer Date Recorded In the past 12 months, has l ack of transportation kept you from medical appts, meetings, work or from getting things needed for daily living? No 11/12/2024 Utilities Answer Date Recorded In the past 12 months, has t he electric, gas, oil or water [employer] threatened to shut off services in your home? No 05/08/2023 Internet Access Answer Date Recorded Internet Access Q1 Yes 11/12/2024 Internet Access Q2 I do not want or need it 10/31 Comments Unknown Sex and Gender Information Value [...] and dental. She was recently seen by [facility] and states she was prescribed glasses. [...] is in the process of getting a TEST DESIGN ENGINEER. She states she filled out the application [...] understanding, and able to repeat back to health technical writer. A follow up call will be placed within 10 days, patient agrees with plan. documented in this encounter Plan of Treatment Upcoming Encounters Date Type Department Care Team (Late st Contact Info) Description 12/04/2024 2:00 PM EDT Clinical Support [facility] [address] [place] [address] documented as of this encounter Visit Diagnoses Not on filedocumented in this encounter Care Teams Mechanical Sound Technician Relationship Specialty Start Date End Date Amber Quiroz MD [address] [place] [address] PCP - General Family Medicine 07/03/18 documented as of this encounter
--- OUTSIDE RECORDS SUMMARY | 2024-11-15 19:00 | XMS_ITS | Encounter Summary ---
Author Organization [employer] Address 75 [facility] 7t [place] [address] Care Team Providers Care Industrial Controls Technician Name Role Phone Amber Quiroz MD Primary Care Provider [phone] Encounter Details Date Type Department Care Team ([facility] st Contact Info) Description 09/04/2024 Orders Only [facility] [address] [place], [place] [phone] Amber Quiroz MD 230 [place], [place] [phone] Routine screening for STI (sexually transmitted infection) [...] the past 12 months, has t he [employer], [employer], oil or water company threatened to shut [...] Description 12/04/2024 2:00 PM EDT Clinical Support [facility] [address] [place] [phone] Scheduled Orders Name Type Priority Associated Diagnoses [...] disease documented in this encounter Care Teams Industrial Controls Technician Relationship Specialty Start Date End Date Amber Quiroz MD [address] [place] [address] PCP - General Family Medicine 07/03/18 documented as of this encounter
--- OUTSIDE RECORDS SUMMARY | 2024-11-15 19:00 | XMS_ITS | Encounter Summary ---
Author Organization [employer] Address 75 [facility] 7 [place] [address] Care Team Providers Care Parking Enforcement Specialist Name Role Phone Amber Quiroz MD Primary Care Provider [phone] Reason for Visit * Reason Comments Med Refill Encounter Details Date Type Department Care Team ([facility] st Contact Info) Description 11/29/2023 Refill [facility] [address] [place], [place] [phone] Charleen Latif MD 230 [place], [place] [phone] Nephrolithiasis Social History Tobacco Use Types Packs/Day [...] the past 12 months, has t he [employer], [employer], oil or water company threatened to shut [...] Description 12/04/2024 2:00 PM EDT Clinical Support [facility] [address] [place] [address] documented as of this encounter Visit Diagnoses Diagnosis Nephrolithiasis Calculus of kidney documented in this encounter Care Teams Parking Enforcement Specialist Relationship Specialty Start Date End Date Amber Quiroz MD 230 [place] [address] PCP - General Family Medicine 07/03/18 documented as of this encounter
--- OUTSIDE RECORDS SUMMARY | 2024-11-15 19:00 | XMS_ITS | Encounter Summary ---
Author Organization [employer] Address [address] [facility] [address] 7t [place] [address] Care Team Providers Care Aircraft Maintenance Technician Name Role Phone Amber Quiroz MD Primary Care Provider [phone] Encounter Details Date Type Department Care Team (Late st Contact Info) Description 11/11/2024 Orders Only GENERIC EXTERNAL DATA DEPARTMENT Provider, [...] Description 12/04/2024 2:00 PM EDT Clinical Support [facility] 230 [place] [address] documented as of this encounter Procedures Procedure Name Priority Date/Time Associated Diagnosis Comments URINALYSIS, COMPLETE, WITH REFLEX TO CULTURE Routine 11/11/2024 12:56 PM EDT documented in this encounter Results * (ABNORMAL) Urinalysis, Complete, with Reflex to Culture (11/11/2024 12:56 PM EDT) Color Urine DK YELLOW [facility] Appearance Urine Clear [facility] PH 5.0 5.0 - 9.0 [facility] Glucose Urine UA Negative Negative mg/dL [facility] Urine Blood Large (3+)(A) Negative [facility] Specific [place] - Urine 1.010 1.005 - 1.025 [facility] Urine Protein 300 (3+)(A) Neg-Trace mg/dL [facility] Urine Ketones Negative Negative mg/dL [facility] Nitrite Urine Negative Negative [facility] Leukocyte Esterase Urine Negative Negative [facility] RBC Urine >20(A) 0 - 2 /HPF [facility] Urine WBC 0-5 0 - 5 /HPF [facility] Urine Squamous Epithelial Cell 0-2 0 - 2 /HPF [facility] Urine Bacteria Trace None Seen [facility] Hyaline Casts, Urine 0-2 0 - 2 /LPF [facility] 11/11/2024 12:5 6 PM EDT 11/11/2024 12:59 PM EDT Narrative [facility] - 11/11/2024 1:24 PM EDT Urine, Clean Catch us Generic External Data Provider LAB URINE ORDERAB LES Edited Result - Final [facility] [address] [place] [address] [phone] documented in this encounter Visit Diagnoses Not on filedocumented in this encounter Care Teams Aircraft Maintenance Technician Relationship Specialty Start Date End Date Amber Quiroz MD [address] [place] [phone] PCP - General Family Medicine 07/03/18 documented as of this encounter
--- OUTSIDE RECORDS SUMMARY | 2024-11-15 19:00 | XMS_ITS | Encounter Summary ---
Author Organization [employer] Address 75 [facility] 7t [place] [address] Care Team Providers Care Molecular Pathologist Name Role Phone Amber Quiroz MD Primary Care Provider [phone] Reason for Visit * Reason Comments Med Refill Encounter Details Date Type Department Care Team ([facility] st Contact Info) Description 06/01/2023 Refill [facility] 230 [place], [place] [phone] Amber Quiroz MD 230 [place], [place] [phone] Pain Social History Tobacco Use Types Packs/Day [...] the past 12 months, has t he [employer], [employer], oil or water company threatened to shut [...] Description 12/04/2024 2:00 PM EDT Clinical Support [facility] [address] [place] [address] documented as of this encounter Visit Diagnoses Diagnosis Pain Generalized pain documented in this encounter Care Teams Molecular Pathologist Relationship Specialty Start Date End Date Amber Quiroz MD [address] [place] [phone] PCP - General Family Medicine 07/03/18 documented as of this encounter
--- OUTSIDE RECORDS SUMMARY | 2024-11-15 19:00 | XMS_ITS | Encounter Summary ---
Author Organization [employer] Address [address] [facility] 7t [place] [address] Care Team Providers Care Baccarat Dealer Name Role Phone Amber Quiroz MD Primary Care Provider [phone] Encounter Details Date Type Department Care Team ([facility] st Contact Info) Description 11/04/2024 Patient Outreach [facility] 230 [place], [place] [phone] Amber Quiroz MD 230 [place], [place] [phone] Social History Tobacco Use Types Packs/Day Years [...] encounter Progress Notes * Roxanne Dsouza - 11/04/2024 10:27 AM EDT Patient requesting a call from WARDROBE COORDINATOR RN in regards to her tramadol 50mg. Stated she is due and has not received. Please call [phone]. documented in this encounter Plan of Treatment Upcoming Encounters Date Type Department Care Team (Late st Contact Info) Description 12/04/2024 2:00 PM EDT Clinical Support [facility] 230 [place] [address] documented as of this encounter Visit Diagnoses Not on filedocumented in this encounter Care Teams Baccarat Dealer Relationship Specialty Start Date End Date Amber Quiroz MD 230 [place] [address] PCP - General Family Medicine 07/03/18 documented as of this encounter
--- OUTSIDE RECORDS SUMMARY | 2024-11-15 19:00 | XMS_ITS | Encounter Summary ---
Author Organization [employer] Address [address] [facility] [address] 7t [place] [address] Care Team Providers Care Supervisor Compressed Yeast Name Role Phone Amber Quiroz MD Primary Care Provider [phone] Encounter Details Date Type Department Care Team ([facility] st Contact Info) Description 12/12/2023 Orders Only [facility] 230 [place], [place] [phone] Amber Quiroz MD 230 [place], [place] [phone] Nephrolithiasis (Primary Dx) Social History Tobacco Use [...] Description 12/04/2024 2:00 PM EDT Clinical Support [facility] [address] [place] [address] documented as of this encounter Visit Diagnoses Diagnosis Nephrolithiasis- Primary Calculus of kidney documented in this encounter Care Teams Supervisor Compressed Yeast Relationship Specialty Start Date End Date Amber Quiroz MD 230 [place] [address] PCP - General Family Medicine 07/03/18 documented as of this encounter
--- OUTSIDE RECORDS SUMMARY | 2024-11-15 19:00 | XMS_ITS | Encounter Summary ---
Author Organization [employer] Address [address] [place] [address] Care Team Providers Care Package Line Relief Operator Name Role Phone Physician, No Pcp Primary Care Provider Unavaila ble Encounter Details Date Type Department Care Team (Late st Contact Info) Description 09/25/2024 Lab Requisition [facility] - Main Lab [address] [facility] [place] [address] Zachery Chi PA [address] [place] [address] [place] [address] Calculus of ureter Social History [...] [facility] [address] [place] [address], documented in this encounter Visit Diagnoses Diagnosis Calculus of ureter documented in this encounter Care Teams Package Line Relief Operator Relationship Specialty Start Date End Date Physician, No Pcp PCP - General 08/21/24 documented as of this encounter
--- OUTSIDE RECORDS SUMMARY | 2024-11-15 19:00 | XMS_ITS | Encounter Summary ---
Author Organization [employer] Address 75 [facility] 7t [place] [address] Care Team Providers Care Blasting Helper Name Role Phone Amber Quiroz MD Primary Care Provider [phone] Reason for Visit * Reason Onset Date Comments status of oral surgery appt 11/11/2024 Encounter Details Date Type Department Care Team ([facility] Contact Info) Description 11/11/2024 Telephone [facility] [address] [place] [address] Francisco Mohan, DMD [address] [place], [place] status of oral surgery appt Social [...] the past 12 months, has t he [employer], [employer], oil or water company threatened to shut [...] Miscellaneous Notes * Telephone Encounter - Raven Jeffers - 11/11/2024 8:48 AM EDT Patient is [...] Description 12/04/2024 2:00 PM EDT Clinical Support [facility] 230 [place] [address] documented as of this encounter Visit Diagnoses Not on filedocumented in this encounter Care Teams Blasting Helper Relationship Specialty Start Date End Date Amber Quiroz MD 230 [place] [address] PCP - General Family Medicine 07/03/18 documented as of this encounter
--- OUTSIDE RECORDS SUMMARY | 2024-11-15 19:01 | XMS_ITS | Encounter Summary ---
Author Organization [employer] Address 75 [facility] 7t [place] [address] Care Team Providers Care Welder Experimental Name Role Phone Amber Quiroz MD Primary Care Provider [phone] Encounter Details Date Type Department Care Team (Late st Contact Info) Description 07/28/2022 Orders Only [facility] [address] [place] [address] [phone] Anabell Martinez LPN Social History Tobacco Use [...] Description 12/04/2024 2:00 PM EDT Clinical Support [facility] [address] [place] [phone] documented as of this encounter Procedures Procedure [...] (08/02/2022 12:29 AM EST) Color Urine Yellow [facility] Appearance Urine Turbid [facility] PH 6.5 5.0 - 9.0 [facility] Glucose Urine UA Negative Negative mg/dL [facility] Urine Blood Trace(A) Negative [facility] Specific [place] - Urine 1.020 1.005 - 1.025 [facility] Urine Protein 30 (1+)(A) Neg-Trace mg/dL [facility] Urine Ketones Negative Negative mg/dL [facility] Nitrite Urine Negative Negative [facility] Leukocyte Esterase Urine Large (3+)(A) Negative [facility] RBC Urine 0-2 0 - 2 /HPF [facility] Urine WBC >50(A) 0 - 5 /HPF [facility] Urine Squamous Epithelial Cell 6-10 0 - 2 /HPF [facility] Urine Bacteria 1+ None Seen [facility] Hyaline Casts, Urine 3-5 0 - 2 /LPF [facility] 08/02/2022 12:2 9 AM EST 08/02/2022 12:31 AM EST Narrative [facility] - 08/02/2022 12:50 AM EST Urine, Clean Catch us [facility] External Provider LAB URI NE ORDERABLES Final Result [facility] [address] [place] [phone] * SARS-CoV-2 RNA, Influenza A/B, and RSV RNA, Ql NAAT (08/02/2022 12:17 AM EST) Influenza A PCR NEGATIVE Negative [facility] Influenza B PCR NEGATIVE Negative [facility] Resp Syncy Virus RNA Qual PCR NEGATIVE Negative [facility] SARS COV2 PCR NEGATIVE Negative [facility] SARS/Flu/RSV Note See Note [facility] Comment:All test results mus t [...] use by authorized laboratories.Testing performed on the [employer] GeneXpert utilizingreal-time RT-PCR.All SARS CoV2 and positive influenza A/B results arereported to [facility]. 08/02/2022 12:1 7 AM EST 08/02/2022 12:19 AM EST us [facility] Exter nal Provider LAB MICROBIOLOGY - GENERAL ORDERABLES Final Result [facility] [address] [place] [phone] * (ABNORMAL) Basic Metabolic Panel (08/02/2022 12:17 AM EST) Pathologist [facility] Sodium 140 135 - 145 mmol/L [facility] Potassium 3.9 3.3 - 5.1 mmol/L [facility] Chloride 105 96 - 108 mmol/L [facility] Carbon Dioxide 24 22 - 29 mmol/L [facility] Anion Gap 15 12 - 20 [facility] Urea Nitrogen (BUN) 14 9 - 16 mg/dL [facility] Creatinine, Serum 0.75 0.5 - 1.4 mg/dL [facility] Creatinine Clr Calc Pharmacy 71.4 [facility] Comment:Provided height and weight: 162.56 cm,63.503 kg.eGFR (calculated from the MDRD study equation) and eCrCl(calculated from the Cockcroft-Gault equation) are based ondifferent parameters and may not yield comparable results.If eCrCl result is absurd, please check patient'sheight/weight. Estimated Glomerular Filt Rate >60 [facility] Comment:NOTE: For -Am erican individuals, multiply the result by 1.210.Chronic Kidney Disease: Estimated GFR < 60 mL/min/[id number] Kidney Disease: Estimated GFR < 15 mL/min/1.73m2 Glucose 119(H) 60 - 115 mg/dL [facility] Calcium 9.0 8.4 - 10.2 mg/dL [facility] 08/02/2022 12:1 7 AM EST 08/02/2022 12:19 AM EST [facility] External Provider LAB BLO OD ORDERABLES Final Result [facility] [address] [place] [phone] * (ABNORMAL) CBC auto differential (08/02/2022 12:17 AM EST) White Blood Count 6.4 4.8 - 10.8 X10*3/uL [facility] Red Blood Count 3.96(L) 4.20 - 5.50 X10*6/uL [facility] Hemoglobin 10.8(L) 12.0 - 16.0 g/dl [facility] Hematocrit 33.0(L) 37.0 - 47.0 % [facility] Mean Corpuscular Volume 83.3 80.0 - 98.0 fL [facility] Mean Corpuscular Hemoglobin 27.3 27.0 - 33.0 pg [facility] Mean Corpuscular HGB Conc 32.7 31.0 - 35.0 g/dl [facility] Red Cell Distribution Width 14.2 11.0 - 16.0 % [facility] Platelet Count 202 160 - 400 X10*3/uL [facility] Mean Platelet Volume 9.2(L) 9.4 - 12.3 fL [facility] Neutrophils Percent Auto 68.5 45 - 73 % [facility] Imm Gran Pct Auto 0.2 0.0 - 0.4 % [facility] Lymphocytes Percent Auto 21.9 20 - 40 % [facility] Monocytes Percent Auto 8.6 2 - 11 % [facility] Eosinophils Percent Auto 0.5 0 - 4 % [facility] Basophils Percent Auto 0.3 0 - 2 % [facility] NRBC Pct Auto 0.0 0.0 - 0.2 /100WBC [facility] Neutrophils Absolute Auto 4.4 2.0 - 8.3 x10*3/uL [facility] Imm Gran Abs Auto 0.01 0.00 - 0.03 X10*3/uL [facility] Lymphocytes Absolute Auto 1.4 1.2 - 4.9 X10*3/uL [facility] Monocytes Absolute Auto 0.6 0.1 - 1.2 X10*3/uL [facility] Eosinophils Absolute Auto 0.0 0.0 - 0.4 X10*3/uL [facility] Basophils Absolute Auto 0.0 0.0 - 0.2 X10*3/uL [facility] NRBC Abs Auto 0.000 0.0 - 0.012 X10*3/uL [facility] 08/02/2022 12:1 7 AM EST 08/02/2022 12:19 AM EST us [facility] External Provider LAB BLO OD ORDERABLES Final Result [facility] [address] [place] [phone] * Culture, Urine, Routine (08/02/2022 12:00 AM EST) 08/02/2022 08/02/2022 7:3 1 AM EST Comment:UACC Narrative [facility] - 08/03/2022 9:19 AM EST Urine Culture No growth. Specimen Source: Urine clean catch us [facility] Exter nal Provider LAB MICROBIOLOGY - GENERAL ORDERABLES Final Result [facility] [address] [place] [address] [phone] documented in this encounter Visit Diagnoses Not on filedocumented in this encounter Care Teams Welder Experimental Relationship Specialty Start Date End Date Amber Quiroz MD [address] [place] [phone] PCP - General Family Medicine 07/03/18 documented as of this encounter
--- OUTSIDE RECORDS SUMMARY | 2024-11-15 19:01 | XMS_ITS | Encounter Summary ---
Author Organization [employer] Address [address] [facility] [address] [place] [address] Care Team Providers Care Speedometer Mechanic Name Role Phone Amber Quiroz MD Primary Care Provider [phone] Encounter Details Date Type Department Care Team ([facility] st Contact Info) Description 11/15/2024 Telephone [facility] [address] [place], [place] [phone] Kian Sevilla, PharmD 230 [place], [place] [phone] Social History Tobacco Use Types Packs/Day Years [...] encounter Miscellaneous Notes * Telephone Encounter - Kian Sevilla PharmD - 11/15/2024 5:41 PM EDT Patient arrived at pharmacy appearing distressed ~5:30pm on 11/15. Stating she said the doctor wanted to see her as she was reporting pain pointing to abdominal area. This was after hours, the patientwas crying and stating my kidneys hurt her blood pressure is high . Called 911, EMS arrived ~5:42 PM. documented in this encounter Plan of Treatment Upcoming Encounters Date Type Department Care Team (Late st Contact Info) Description 12/04/2024 2:00 PM EDT Clinical Support [facility] [address] [place] [address] documented as of this encounter Visit Diagnoses Not on filedocumented in this encounter Care Teams Speedometer Mechanic Relationship Specialty Start Date End Date Amber Quiroz MD [address] [place] [address] PCP - General Family Medicine 07/03/18 documented as of this encounter
--- OUTSIDE RECORDS SUMMARY | 2024-11-15 19:01 | XMS_ITS | Encounter Summary ---
Author Organization [employer] Address 75 [facility] 7 [place] [address] Care Team Providers Care Equal Opportunity Representative Name Role Phone Amber Quiroz MD Primary Care Provider [phone] Reason for Visit * Reason Comments Med Refill Encounter Details Date Type Department Care Team (Late st Contact Info) Description 04/26/2023 Refill [facility] [address] [place] [address] [phone] Alan Partida MD [address] [place] [phone] Moderate persistent asthma without complication; Nausea Social [...] Description 12/04/2024 2:00 PM EDT Clinical Support [facility] [address] [place] [address] [phone] documented as of this encounter Visit Diagnoses Diagnosis Moderate persistent asthma without complication Nausea Nausea alone documented in this encounter Care Teams Equal Opportunity Representative Relationship Specialty Start Date End Date Amber Quiroz MD [address] [place] [address] [phone] PCP - General Family Medicine 07/03/18 documented as of this encounter
--- OUTSIDE RECORDS SUMMARY | 2024-11-15 19:01 | XMS_ITS | Encounter Summary ---
Author Organization [employer] Address 75 [facility] 7 [place] [address] Care Team Providers Care Grab Hooker Name Role Phone Amber Quiroz MD Primary Care Provider [phone] Reason for Visit * Reason Comments Med Refill Encounter Details Date Type Department Care Team (Late st Contact Info) Description 04/26/2023 Refill [facility] [address] [place] [address] [phone] Amber Quiroz MD [address] [place] [address] [phone] Nausea Social History Tobacco Use Types Packs/Day [...] Description 12/04/2024 2:00 PM EDT Clinical Support [facility] [address] [place] [address] [phone] documented as of this encounter Visit Diagnoses Diagnosis Nausea Nausea alone documented in this encounter Care Teams Grab Hooker Relationship Specialty Start Date End Date Amber Quiroz MD [address] [place] [address] [phone] PCP - General Family Medicine 07/03/18 documented as of this encounter
--- OUTSIDE RECORDS SUMMARY | 2024-11-15 19:01 | XMS_ITS | Encounter Summary ---
Author Organization [employer] Address 75 [facility] 7t [place] [address] Care Team Providers Care Geology Faculty Member Name Role Phone Amber Quiroz MD Primary Care Provider [phone] Encounter Details Date Type Department Care Team (Late st Contact Info) Description 04/05/2023 Orders Only [facility] [address] [place] [address] Anabell Martinez LPN Social History Tobacco Use [...] Description 12/04/2024 2:00 PM EDT Clinical Support [facility] [address] [place] [address] documented as of this encounter Visit Diagnoses Not on filedocumented in this encounter Care Teams Geology Faculty Member Relationship Specialty Start Date End Date Amber Quiroz MD [address] [place] [address] PCP - General Family Medicine 07/03/18 documented as of this encounter
--- OUTSIDE RECORDS SUMMARY | 2024-11-15 19:01 | XMS_ITS | Encounter Summary ---
Author Organization [employer] Address 75 [facility] 7t [place] [address] Care Team Providers Care Shift Commander Name Role Phone Amber Quiroz MD Primary Care Provider [phone] Encounter Details Date Type Department Care Team (Late st Contact Info) Description 03/22/2023 Orders Only [facility] [address] [place] [phone] Amber Quiroz MD [address] [place] [phone] ASCUS of cervix with negative high risk [...] Description 12/04/2024 2:00 PM EDT Clinical Support [facility] [address] [place] [phone] documented as of this encounter Visit Diagnoses Diagnosis ASCUS of cervix with negative high risk HPV- Primary History of cervical dysplasia Personal history of cervical dysplasia documented in this encounter Care Teams Shift Commander Relationship Specialty Start Date End Date Amber Quiroz MD [address] [place] [phone] PCP - General Family Medicine 07/03/18 documented as of this encounter
--- OUTSIDE RECORDS SUMMARY | 2024-11-15 19:01 | XMS_ITS | Clinical Summary ---
Author Organization [facility] Address [address] [place] [address] Phone Care Team Providers Care Taproom Attendant Name Role Phone Physician, No Pcp Primary Care Provider Unavaila ble Allergies Active Allergy Reactions Criticality Noted Date Comments Aspirin Congestion of the throat 08/21/2024 Ibuprofen Swallowing Problem 08/21/2024 Acetaminophen Swallowing Problem 08/21/2024 Medications No known medications Active Problems No known active problems Encounters Date Type Department Care Team Description 09/25/2024 Lab Requisition [facility] - Main Lab [address] [facility] [place] [address] Zachery Chi PA Calculus of ureter 08/21/2024 3:41 PM EST - 08/21/2024 7:08 PM EST Emergency [facility] Emergency [address] [place] [address] Bilateral flank pain (Primary Dx); [...] hormone intact (09/25/2024 3:15 PM EDT) Pathologist [facility] PTH 31.1 18.5 - 88.0 pcg/mL LAB CHEMISTRY METHOD 09/25/2024 7:10 PM EDT [facility] Blood Venous blood specimen / Unknown 09/25/2024 3:15 PM EDT 09/25/2024 6:18 PM EDT Zachery LUO LAB BLOOD ORDERABLES Final Res ult [facility] [address] [place] [address], [place] [phone] * ECG-Annotated (08/22/2024) Provider Onbase MD ECG ORDERABLES Final Result * (ABNORMAL) Drug abuse screen 8a panel, urine (08/21/2024 6:02 PM EST) [facility] Amphetamine Screen, Ur Negative Negative LAB CHEMISTRY METHOD 5 6:35 PM EST [facility] Comment:Certain OTC medicati ons containing ephedrine, phenylephrine, pseudoephedrine and phenylpropanolamine can cause false positive results. Barbiturate Screen, Ur Negative Negative LAB CHEMISTRY METHOD 5 6:35 PM EST [facility] Benzodiazepine Screen, Ur Negative Negative LAB CHEMISTRY METHOD 5 6:35 PM EST [facility] Cocaine Screen, Ur Positive(A ) Negative LAB CHEMISTRY METHOD 5 6:35 PM EST [facility] Opiate Screen, Ur Negative Negative LAB CHEMISTRY METHOD 5 6:35 PM EST [facility] Cannabinoid (THC) Screen, Ur Positive(A ) Negative LAB CHEMISTRY METHOD 5 6:35 PM EST [facility] Comment:Specimens from patie nts taking pantoprazole sodium (Protonix) have been shown to produce false positive results. Oxycodone Screen, Ur Negative Negative LAB CHEMISTRY METHOD 5 6:35 PM EST [facility] Fentanyl, Ur Negative Negative LAB CHEMISTRY METHOD 5 6:35 PM EST [facility] Urine Urine specimen obtained by clean catch procedure / Unknown Non-blood Collection / Unknown 08/21/2024 6:02 PM EST 08/21/2024 6:09 PM EST Narrative [facility] - 08/21/2024 6:35 PM EST [...] Za LUO LAB URINE ORDERABLES Final Result [facility] [address] [place] [address], * (ABNORMAL) Urinalysis with reflex microscopic and culture (08/21/2024 6:00 PM EST) Specific Malone Urine 1.019 1.003 - 1.030 LAB URINALYSIS - AUTOMATED METHOD 08/21/2024 6:43 PM EST [facility] pH, Urine 6.5 5.0 - 8.0 pH LAB URINALYSIS - AUTOMATED METHOD 08/21/2024 6:43 PM [facility] Leukocytes, Urine Trace(A) Negative LAB URINALYSIS - AUTOMATED METHOD 08/21/2024 6:43 PM [facility] Nitrite, Urine Negative Negative LAB URINALYSIS - AUTOMATED METHOD 08/21/2024 6:43 PM [facility] Protein, Urine Negative <=Trace mg/dL LAB URINALYSIS - AUTOMATED METHOD 08/21/2024 6:43 PM [facility] Glucose, Urine Negative Negative mg/dL LAB URINALYSIS - AUTOMATED METHOD 08/21/2024 6:43 PM [facility] Ketones, Urine Negative Negative mg/dL LAB URINALYSIS - AUTOMATED METHOD 08/21/2024 6:43 PM [facility] Urobilinogen , Urine 1.0 0.2 - 1.0 mg/dL LAB URINALYSIS - AUTOMATED METHOD 08/21/2024 6:43 PM [facility] Bilirubin, Urine Negative Negative LAB URINALYSIS - AUTOMATED METHOD 08/21/2024 6:43 PM [facility] Blood, Urine Negative Negative LAB URINALYSIS - AUTOMATED METHOD 08/21/2024 6:43 PM [facility] RBC, Urine 3.9 0 - 4 /HPF LAB URINALYSIS - AUTOMATED METHOD 08/21/2024 6:43 PM [facility] WBC, Urine 4.4(H) 0 - 4 /HPF LAB URINALYSIS - AUTOMATED METHOD 08/21/2024 6:43 PM [facility] Squamous Epithelial, Urine >100(H) 0 - 60 /LPF LAB URINALYSIS - AUTOMATED METHOD 08/21/2024 6:43 PM [facility] Bacteria, Urine Moderate(A) Negative /HPF LAB URINALYSIS - AUTOMATED METHOD 08/21/2024 6:43 PM [facility] Hyaline Casts, Urine 2.4 0 - 3 /LPF LAB URINALYSIS - AUTOMATED METHOD 08/21/2024 6:43 PM EST [facility] Urine Urine specimen obtained by clean catch procedure / Unknown Non-blood Collection / Unknown 08/21/2024 6:00 PM EST 08/21/2024 6:09 PM EST Ramiro Miguelrussell Maier DO LAB URINE ORDERABLES Final Resu lt [facility] [address] [place] [address], [place] [phone] * Vaughn urine culture tube (08/21/2024 6:00 PM EST) Extra Tube Hold for add-ons. 08/21/2024 8:01 PM EST [facility] Comment:Auto resulted. Urine Urine specimen obtained by clean catch procedure / Unknown Non-blood Collection / Unknown 08/21/2024 6:00 PM EST 08/21/2024 6:09 PM EST Ramiro Ryan Livier [facility]INLEY LAB URINE ORDERABLES Final Resu lt Performing Organization Address [facility]/ZIP Co de Phone Number [facility] [address] [place] [address], [place] [phone] * Culture urine (08/21/2024 6:00 PM EST) Culture, Urine 10,000-49,000 CFU/mL Mixed urogenital geovanny, no uropathogens present. Suggest repeat specimen if clinically indicated. 08/22/2024 2:06 PM EST [facility] Urine Urine specimen obtained by clean catch procedure / Unknown Non-blood Collection / Unknown 08/21/2024 6:00 PM EST 08/21/2024 6:43 PM EST Ramiro Miguelrussell Maier DO LAB MICROBIOLOGY - GENERAL ORDE RABLES Final Result Performing Organization Address City/[facility]/[place] Co de Phone Number [facility] ([facility] LAB [address] [place] [address], * CT Head wo Contrast (08/21/2024 5:00 [...] GEMUSE QTc 443 ms GEMUSE P Wave [place] 58 degrees GEMUSE R [place] 11 degrees GEMUSE T [place] 43 degrees GEMUSE ECG Interpretation Normal sinus [...] K/mcL LAB HEMETOLOGY METHOD 08/21/2024 4:06 PM [facility] RBC 4.60 3.80 - 4.80 M/mcL LAB HEMETOLOGY METHOD 08/21/2024 4:06 PM [facility] Hemoglobin 12.2 11.5 - 16.0 g/dL LAB HEMETOLOGY METHOD 08/21/2024 4:06 PM [facility] Hematocrit 37.6 35.0 - 47.0 % LAB HEMETOLOGY METHOD 08/21/2024 4:06 PM [facility] MCV 82.6 79.0 - 98.0 FL LAB HEMETOLOGY METHOD 08/21/2024 4:06 PM [facility] MCH 26.8(L) 27.0 - 32.0 pcg LAB HEMETOLOGY METHOD 08/21/2024 4:06 PM [facility] MCHC 32.4 32.0 - 37.0 g/dL LAB HEMETOLOGY METHOD 08/21/2024 4:06 PM [facility] RDW 15.2(H) 11.0 - 15.0 % LAB HEMETOLOGY METHOD 08/21/2024 4:06 PM [facility] Platelets 235 130 - 400 K/mcL LAB HEMETOLOGY METHOD 08/21/2024 4:06 PM [facility] MPV 10.3 7.0 - 11.0 FL LAB HEMETOLOGY METHOD 08/21/2024 4:06 PM [facility] NRBC 0.0 <1.0 % LAB HEMETOLOGY METHOD 08/21/2024 4:06 PM [facility] NRBC Absolute 0.00 <0.10 K/mcL LAB HEMETOLOGY METHOD 08/21/2024 4:06 PM [facility] Neutrophils Relative 49.4 % LAB HEMETOLOGY METHOD 08/21/2024 4:06 PM [facility] Lymphocytes Relative 40.3 % LAB HEMETOLOGY METHOD 08/21/2024 4:06 PM [facility] Monocytes Relative 7.7 % LAB HEMETOLOGY METHOD 08/21/2024 4:06 PM [facility] Eosinophils Relative 2.2 % LAB HEMETOLOGY METHOD 08/21/2024 4:06 PM [facility] Basophils Relative 0.2 % LAB HEMETOLOGY METHOD 08/21/2024 4:06 PM [facility] Immature Granulocytes Relative 0.2 % LAB HEMETOLOGY METHOD 08/21/2024 4:06 PM [facility] Neutrophils Absolute 2.26 1.50 - 7.00 K/mcL LAB HEMETOLOGY METHOD 08/21/2024 4:06 PM [facility] Lymphocytes Absolute 1.84 1.00 - 5.00 K/mcL LAB HEMETOLOGY METHOD 08/21/2024 4:06 PM [facility] Monocytes Absolute 0.35 0.20 - 1.00 K/mcL LAB HEMETOLOGY METHOD 08/21/2024 4:06 PM [facility] Eosinophils Absolute 0.10 0.00 - 0.50 K/mcL LAB HEMETOLOGY METHOD 08/21/2024 4:06 PM EST [facility] Basophils Absolute 0.01 0.00 - 0.20 K/[facility] LAB HEMETOLOGY METHOD 08/21/2024 4:06 PM EST [facility] Immature Granulocytes Absolute 0.01 0.00 - 0.03 K/[facility] LAB HEMETOLOGY METHOD 08/21/2024 4:06 PM [facility] Blood Venous blood specimen / Unknown Venipuncture / Unknown 08/21/2024 3:50 PM EST 08/21/2024 3:56 PM EST Tonojameson Invodorussell [facility] LAB BLOOD ORDERABLES Final Resu lt Performing Organization Address City/[facility]/ZIP Co de Phone Number [facility] [address] [place] [address], [place] [phone] * Lipase (08/21/2024 3:50 PM EST) Lipase 34 13 - 75 unit/L LAB CHEMISTRY METHOD 08/21/2024 4:26 PM [facility] Blood Venous blood specimen / Unknown Venipuncture / Unknown 08/21/2024 3:50 PM EST 08/21/2024 3:56 PM EST Tonojameson [facility] [employer] LAB BLOOD ORDERABLES Final Resu lt Performing Organization Address City/[facility]/ZIP Co de Phone Number [facility] [address] [place] [address], [place] [phone] * (ABNORMAL) Comprehensive metabolic panel (08/21/2024 3:50 PM EST) Sodium 144 133 - 145 mmol/L LAB CHEMISTRY METHOD 08/21/2024 4:26 PM [facility] Potassium 3.5 3.5 - 5.5 mmol/L LAB CHEMISTRY METHOD 08/21/2024 4:26 PM [facility] Chloride 113(H) 96 - 110 mmol/L LAB CHEMISTRY METHOD 08/21/2024 4:26 PM [facility] CO2 23 21 - 32 mmol/L LAB CHEMISTRY METHOD 08/21/2024 4:26 PM [facility] Anion Gap 8 3 - 11 LAB CHEMISTRY METHOD 08/21/2024 4:26 PM [facility] Glucose 108(H) 70 - 100 mg/dL LAB CHEMISTRY METHOD 08/21/2024 4:26 PM [facility] BUN 13 5 - 25 mg/dL LAB CHEMISTRY METHOD 08/21/2024 4:26 PM [facility] Creatinine 0.54 0.50 - 1.10 mg/dL LAB CHEMISTRY METHOD 08/21/2024 4:26 PM [facility] eGFR 106 >=60 mL/min/1. 73m2 LAB CHEMISTRY METHOD 08/21/2024 4:26 PM [facility] Comment:Calculation based on the??Chronic Kidney Disease Epidemiology Collaboration (CKD-EPI) equation refit??without adjustment for race. BUN/Creatinine Ratio 24.1 LAB CHEMISTRY METHOD 08/21/2024 4:26 PM [facility] Calcium 9.3 8.5 - 10.5 mg/dL LAB CHEMISTRY METHOD 08/21/2024 4:26 PM [facility] AST (SGOT) 27 10 - 42 unit/L LAB CHEMISTRY METHOD 08/21/2024 4:26 PM [facility] ALT (SGPT) 36 10 - 60 unit/L LAB CHEMISTRY METHOD 08/21/2024 4:26 PM [facility] Alkaline Phosphatase 109 42 - 121 unit/L LAB CHEMISTRY METHOD 08/21/2024 4:26 PM [facility] Total Protein 7.2 6.0 - 8.0 g/dL LAB CHEMISTRY METHOD 08/21/2024 4:26 PM [facility] Albumin 3.9 3.2 - 5.0 g/dL LAB CHEMISTRY METHOD 08/21/2024 4:26 PM EST [facility] Total Bilirubin 0.2 0.0 - 1.4 mg/dL LAB CHEMISTRY METHOD 08/21/2024 4:26 PM EST [facility] Blood Venous blood specimen / Unknown Venipuncture / Unknown 08/21/2024 3:50 PM EST 08/21/2024 3:56 PM EST us Ramiro Maier DO LAB BLOOD ORDERABLES Final Resu lt [facility] [address] [place] [address], [place] [phone] from Last 3 Months Insurance MEDICAID - [place] Care Teams Taproom Attendant Relationship Specialty Start Date End Date Physician, No Pcp PCP - General 08/21/24
--- OUTSIDE RECORDS SUMMARY | 2024-11-15 19:01 | XMS_ITS | Encounter Summary ---
Author Organization [employer] Address [address] [facility] 7t [place] [address] Care Team Providers Care Human Performance Consultant Name Role Phone Amber Quiroz MD Primary Care Provider [phone] Reason for Visit * Reason Onset Date Comments Nurse Triage 01/11/2024 Encounter Details Date Type Department Care Team ([facility] st Contact Info) Description 01/11/[address] 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 RX updated with pending HDF. Team tasked that if medication available from PCP for overnight use [facility] * Telephone Encounter - Lacy Sahni LPN - 01/11/2024 3:31 PM EDT Triage in process. Patient requesting pain medication for kidney stone pain in [facility] 01/07/24-01/08/24. Patient not seeing any stones passing. [...] worse Override Notes: Seen and treated at [facility] known kidney stones wants something for pain [...] Description 12/04/2024 2:00 PM EDT Clinical Support [facility] [address] [place] [address] documented as of this encounter Visit Diagnoses Not on filedocumented in this encounter Care Teams Human Performance Consultant Relationship Specialty Start Date End Date Amber Quiroz MD [address] [place] [id number] PCP - General Family Medicine 07/03/18 documented as of this encounter
--- OUTSIDE RECORDS SUMMARY | 2024-11-15 19:01 | XMS_ITS | Encounter Summary ---
Author Organization [employer] Address [address] [facility] [address] [place] [address] Care Team Providers Care Consultant In Ergonomics And Safety Name Role Phone Amber Quiroz MD Primary Care Provider [phone] Encounter Details Date Type Department Care Team (Late st Contact Info) Description 12/12/2022 Orders Only [facility] MED[facility]INE [address] [place] [phone] Anabell Martinez LPN Social History Tobacco Use [...] EDT Clinical Support [facility] [address] [place] [phone] documented as of this encounter Visit Diagnoses Not on filedocumented in this encounter Care Teams Consultant In Ergonomics And Safety Relationship Specialty Start Date End Date Amber Quiroz MD [address] [place] [phone] PCP - General Family Medicine 07/03/18 documented as of this encounter
--- OUTSIDE RECORDS SUMMARY | 2024-11-15 19:01 | XMS_ITS | Encounter Summary ---
Author Organization [employer] Address [address] [facility] [address] [place] [address] Care Team Providers Care Marketing Sales Consultant Name Role Phone Amber Quiroz MD Primary Care Provider [phone] Encounter Details Date Type Department Care Team ([facility] st Contact Info) Description 11/12/2024 1:30 PM EDT Office Visit [facility] MEDICINE [address] [place], [place] [phone] Amber Quiroz MD [address] [place], [place] [phone] Essential hypertension (Primary Dx); Nephrolithiasis; Chronic pain of left knee Social History Tobacco Use Types Packs/Day Years [...] Sign Reading Time Taken Comments Blood Pressure 168/96 11/12/2024 2:08 PM EDT Pulse 72 11/12/2024 1:33 PM EDT Temperature 36.2 ??C (97.2 ??F) 11/12/2024 1:33 PM ED T Respiratory Rate 14 11/12/2024 1:33 PM EDT Oxygen Saturation 98% 11/12/2024 1:33 PM EDT Inhaled Oxygen Concentration - - Weight 62.6 kg (138 lb) 11/12/2024 1:33 PM EDT Height 154.9 cm (5' 1 ) 11/12/2024 1:33 PM EDT Body Mass Index 26.07 11/12/2024 1:33 PM EDT documented in this encounter Miscellaneous Notes * Assessment & Plan Note - Magda Patel MA - 11/14/2024 9:24 AM EDTAssociated Problem(s): Nephrolithiasis - Pt had multiple ED visits. Most recent CT scan was in 2024 - They found a very small kidney stone and a 1.3 cm cyst on her right kidney. - Pt was advised to reschedule her appointment with urologist 09/03/24 - Prescribed traMADol (Ultram) 50 MG tablet 09/03/24 * Assessment & Plan Note - Magda Patel MA - 11/14/2024 9:23 AM EDTAssociated Problem(s): Essential hypertension -Goal BP < 140/90 [...] mg daily or valsartan 40 mg daily. documented in this encounter Plan of Treatment Upcoming Encounters Date Type Department Care Team (Late st Contact Info) Description 12/04/2024 2:00 PM EDT Clinical Support [facility] MEDICINE [address] [place] [address] Scheduled Orders Name Type Priority Associated Diagnoses Orde r Schedule XR Knee 3 Views Left Imaging Routine Chronic pain of left knee Expected: 11/12/2024, Expires: 11/12/2025 documented as of this encounter Visit Diagnoses Diagnosis Essential hypertension- Primary Unspecified essential hypertension Nephrolithiasis Calculus of kidney Chronic pain of left knee documented in this encounter Care Teams Marketing Sales Consultant Relationship Specialty Start Date End Date Amber Quiroz MD [address] [place] [address] PCP - General Family Medicine 07/03/18 documented as of this encounter
--- OUTSIDE RECORDS SUMMARY | 2024-11-15 19:01 | XMS_ITS | Encounter Summary ---
Author Organization [employer] Address [address] [facility] [address] [place] [address] Care Team Providers Care Data Scientist Name Role Phone Amber Quiroz MD Primary Care Provider [phone] Reason for Visit * Reason Comments Med Refill Encounter Details Date Type Department Care Team ([facility] st Contact Info) Description 11/12/2024 Refill [facility] [address] [place], [place] [phone] Amber Quiroz MD [address] [place], [place] [phone] Moderate persistent asthma without complication Social History [...] Description 12/04/2024 2:00 PM EDT Clinical Support [facility] [address] [place] [address] documented as of this encounter Visit Diagnoses Diagnosis Moderate persistent asthma without complication documented in this encounter Care Teams Data Scientist Relationship Specialty Start Date End Date Amber Quiroz MD [address] [place] [address] PCP - General Family Medicine 07/03/18 documented as of this encounter
--- OUTSIDE RECORDS SUMMARY | 2024-11-15 19:01 | XMS_ITS | Clinical Summary ---
Author Organization [employer] Address [address] [facility] [address] [place] [address] Care Team Providers Care Director Of Materials Management Name Role Phone Amber Quiroz MD Primary Care Provider [phone] Allergies Active Allergy Reactions Criticality Noted Date Comments Acetaminophen 04/24/2023 Aspirin Rash Low 03/02/2023 Haloperidol 04/24/2023 Ibuprofen Rash Low 04/22/2013 Iodinated Contrast Media Hives 03/02/2023 Iodine Rash Low 03/02/2023 Ketorolac Tromethamine Other 03/02/2023 Increased heart rate Metoclopramide 04/24/2023 Nicotine Rash Low 03/02/2023 Nicotine patch Medications FLUoxetine (PROzac) 20 MG capsule TOME ELIZABETH C PSULAS POR V A ORAL TODOS LOS D EN LA ME RICKY 023 Active gabapentin (Neurontin) 100 MG capsule TOME BELINDA C PSULA TODOS LOS D EN LA ME RICKY 023 Active gabapentin (Neurontin) 400 MG [...] FOUR TIMES DAILY. 18 g 025 Active Blood Pressure Monitor misc Check BP daily 1 each 025 Active albuterol (Ventolin HFA) 108 (90 [...] Zofran prn Nephrolithiasis 07/27/2023 Assessment & Plan (11/14/2024 9:24 AM EDT): - Pt had multiple ED visits. Most recent CT scan was in 2024 - They found a very small kidney stone and a 1.3 cm cyst on her right kidney. - Pt was advised to reschedule her appointment with urologist 09/03/24 - Prescribed traMADol (Ultram) 50 MG tablet 09/03/24 Assessment & Plan (09/03/2024 8:50 PM EST): [...] 07/13/2016 Essential hypertension 09/16/2015 Assessment & Plan (11/14/2024 9:23 AM EDT): -Goal BP < 140/90 per [...] valsartan 40 mg daily. Assessment & Plan (09/10/2024 12:04 PM EDT): [...] Encounters Date Type Department Care Team Description 11/15/[address] [address] Kian Sevilla, PharmD 11/15/[address] [address] Amber Quiroz MD Care Management (C3CM- f/u call) 11/14/2024 Orders Only GENERIC EXTERNAL DATA DEPARTMENT Provider, Generic External Data 11/12/2024 1:30 PM EDT Office Visit [address] [address] Amber Quiroz MD Essential hypertension (Primary Dx); Nephrolithiasis; Chronic pain of left knee 11/12/[address] [address] Amber Quiroz MD Moderate persistent asthma without complication 11/12/2024 Travel 11/11/2024 Orders Only GENERIC EXTERNAL DATA DEPARTMENT Provider, Generic External Data 11/11/[address] [address] Amber Quiroz MD CHART PREP 11/11/2024 Telephone [facility] [address] [place] [address] Francisco Mohan DMD status of oral surgery appt 11/08/2024 Patient Outreach [address] [address] Amber Quiroz MD Care Coordination (PT1) 11/06/2024 Patient Outreach [address] [address] Roxanne Dsouza Care Coordination (SDOH) 11/05/[address] [address] Amber Quiroz MD Care Management (C3CM- initial assessment/ enrollment.) 11/04/2024 Patient Outreach [address] [address] Amber Quiroz MD Care Coordination (CM/CHW appt reminder) 11/04/2024 Patient Outreach [address] [address] Amber Quirzo MD 11/04/2024 Patient Outreach [address] [address] Amber Quiroz MD 11/04/2024 Patient Outreach [address] [address] Amber Quiroz MD 11/02/2024 Orders Only GENERIC EXTERNAL DATA DEPARTMENT Provider, Generic External Data 11/01/2024 2:00 PM EDT Office Visit [facility] [address] [place] [address] Bernardo, Comfort, OD 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); White without pressure of peripheral retina of both eyes; Hyperopia of both eyes 11/01/2024 Travel 10/30/[address] [address] Amber Quiroz MD Moderate persistent asthma without complication 10/30/[address] [address] Charleen Latif MD Nausea; Moderate persistent asthma without complication 10/30/2024 Refill [facility] [address] [place], [place] [phone] Dilcia Henry ANP Nephrolithiasis 10/30/[address] [address] Amber Quiroz MD Med Refill 10/28/2024 Telephone [facility] [address] [place] [address] Rachelle Lucero, DOROTA 10/25/2024 10:00 AM EDT Office Visit [facility] [address] [place] [address] Boom Franklin DDS Pain 10/24/2024 10:45 AM EDT Immunization [facility] [address] [place] [address] Allison Montgomery RN Encounter for immunization 10/24/[address] [address] Amber Quiroz MD 10/18/2024 Refill [facility] [address] [place], [place] [phone] Rachelle Lucero, RN Nephrolithiasis 10/18/[address] [address] Amber Quiroz MD Social Security Form (I [...] completed by a psych provider.) 10/17/2024 Telephone [facility] [address] [place] [address] Cheryl Larkin, RN Sent to ED from Office 10/16/[address] [address] Amber Quiroz MD Chart Prep 10/15/[address] [address] Amber Quiroz MD Nurse Triage 10/11/2024 Patient Outreach [address] [address] Amber Quiroz MD Care Coordination (CM/CHW outreach) 10/11/2024 Patient Outreach [facility] [address] [place] [address] Amber Quiroz MD Care Coordination (CM/CHW outreach) 10/08/2024 Refill [facility] [address] [place] [address] Rachelle Lucero, DOROTA Nephrolithiasis 10/08/2024 Telephone [facility] [address] [place] [address] Amber Quiroz MD 10/07/2024 Refill [facility] [address] [place] [address] Amber Quiroz MD Nausea 10/02/2024 Telephone [facility] [address] [place] [phone] 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, bark tanner Question 10/01/2024 11:30 AM EDT Telemedicine [facility] [address] [place] [address] 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 RN Essential hypertension 10/01/2024 Travel 10/01/2024 Telephone [facility] [address] [place] [address] Amber Quiroz MD 09/26/2024 Telephone [facility] [address] [place] [address] Amber Quiroz MD Nurse Triage 09/25/2024 Refill [facility] [address] [place] [address] Amber Quiroz MD Moderate persistent asthma without complication 09/25/2024 Telephone [facility] [address] [place] [address] Amber Quiroz MD Care Management (C3- initial assessment/ enrollment #2. lvm) 09/24/2024 Patient Outreach [facility] [address] [place] [address] Amber Quiroz MD Care Coordination (CM/CHW appt reminder) 09/20/2024 Refill [facility] [address] [place] [address] Amber Quiroz MD Nephrolithiasis 09/13/2024 Population Health Risk Score [facility] () [address] [phone] Provider, Population Health Generic 09/05/2024 Telephone [facility] [place] [address] 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, RN Results 09/04/2024 Orders Only [facility] [place] [place] [address] Amber Quiroz MD Routine screening for STI (sexually transmitted infection) (Primary Dx) 09/04/2024 Patient Outreach [facility] [place] [address] Amber Quiroz MD Care Coordination (CM/CHW outreach) 09/04/2024 Refill [facility] [place] [address] Amber Quiroz MD 09/03/2024 3:00 PM EST Office Visit [facility] [place] [address] Amber Quiroz MD Loin pain hematuria syndrome (Primary Dx); Essential hypertension; Kidney stones; Nephrolithiasis; Mood disorder (CMS/HCC); Dyslipidemia; Encounter for immunization; Dietary counseling; Exercise counseling; Overweight; Panic disorder without agoraphobia; Anxiety; Iron deficiency anemia, unspecified iron deficiency anemia type 09/03/2024 Telephone [facility] [place] [address] Abmer Quiroz MD Appointment Request 09/03/2024 Travel 08/29/2024 Refill [facility] [place] [address] Amber Quiroz MD 08/28/2024 Telephone [facility] [place] [address] Shellie Eric MA chart prep 08/28/2024 Patient Outreach [facility] [place] [address] Amber Quiroz MD Care Coordination (CM/CHW outreach) 08/26/2024 Telephone [facility] [address] [place] [address] Amber Quiroz MD Nurse Triage 08/25/2024 Refill [facility] [address] [place] [address] Amber Quiroz MD Pain 08/21/2024 Telephone [facility] [address] [place] [address] Amber Quiroz MD Nurse Triage from Last 3 Months Immunizations Immunization Administration Dates Next Due DTaP 11/05/2012 Hep [...] Mass Index 26.07 11/12/2024 1:33 PM EDT Plan of Treatment Upcoming Encounters Date Type Department Care Team (Late st Contact Info) Description 12/04/2024 2:00 PM EDT Clinical Support [facility] [address] [place] [address] Health Maintenance Due Date Last Done Comments CT Colonography 1965 Dental Prophylaxis 1965 Depression Screening 1965 FIT DNA/Cologuard 1965 FIT 1965 FOBT 1965 HIV Screening 1965 Sigmoidoscopy 1965 Hepatitis C Screening 1982 Mammogram 2004 Dental X-Ray: Bitewings 11/24/2012 11/24/2011 Colonoscopy 07/31/2021 Colorectal Cancer Screening 07/31/2021 Colposcopy 07/31/2021 Zoster Vaccines (2 of 2) 05/29/2023 04/03/2023 Pap Smear 07/30/2024 07/30/2021 Dental Oral Exam 04/27/2025 10/25/2024 Alcohol/Substance Use Screening 09/03/2025 09/03/2024 SDOH Screening 11/12/2025 11/12/2024 Tobacco Screening 11/12/2025 11/12/2024 Cervical Cancer Screening 07/30/2026 HPV/Cotest 07/30/2026 07/30/2021, [...] Procedure Name Priority Date/Time Associated Diagnosis Comments XR CHEST 1 VIEW Routine 11/14/2024 7:54 AM EDT HIGH SENSITIVITY TROPONIN I Routine 11/14/2024 7:49 AM EDT D DIMER HIGH SENSITIVITY Routine 11/14/2024 7:49 AM EDT HIGH SENSITIVITY TROPONIN I Routine 11/14/2024 5:36 AM EDT COMPREHENSIVE METABOLIC PANEL Routine 11/14/2024 5:36 AM EDT CBC WITH AUTO DIFFERENTIAL Routine 11/14/2024 5:36 AM EDT URINALYSIS, COMPLETE, WITH REFLEX TO CULTURE Routine 11/11/2024 12:[address] ABDOMEN PELVIS WO CONTRAST Routine 11/11/2024 [...] 09/03/2024 4 :26 PM EST Essential hypertension THINPREP IMAGING PAP AND HPV MRNA E6/E7 WITH REFLEX TO HPV 16,18/45 Routine 07/30/2021 10:17 AM EST INTRAORAL - COMPLETE SERIES OF RADIOGRAPHIC IMAGES Routine 11/24/2011 12:00 AM EDT from Last 3 Months or Most Recently Relevant to Health Maintenance Results * XR Chest 1 View (11/14/2024 7:54 AM EDT) Anatomical Region Laterality Modality Chest Radiographic Shy ging 11/14/2024 7:54 AM EDT Narrative 11/14/2024 8:16 AM EDT ? [facility] ?[address] ?[place] [address] ?XRay Report ? Signed ? Patient: Marquez,Zelidez ?MR#: [id number] ?? 760 ? : 1965 ?Acct:[id number] ? Age/Sex: 58 / F ?ADM Date: 11/14/24 ? Loc: HO.ED ? Attending Dr: ? Ordering Physician: Bobby Ham MD ?? Date of Service: 11/14/24 ?? Procedure(s): XR chest 1V ?? Accession Number(s): [id number] ? cc: Bobby Ham MD; Amber Quiroz MD ? EXAMINATION: ??XR CHEST 1 VIEW ? HISTORY: chest pain ? COMPARISON: Comparison is made with the prior examination dated ?? 03/13/2021. ? FINDINGS: ??A single AP portable view of the chest performed at 7:54 AM ?? is submitted. The lungs are expanded and clear. ??There is no pleural ?? effusion, pneumothorax, or pulmonary vascular congestion. ??The heart is ?? normal in size. ??There is degenerative disc disease of the spine. ? XR/XR chest 1V ?? IMPRESSION: ?? No acute cardiopulmonary abnormality. ? Electronically signed by: ??Misha Curtis MD ??11/14/2024 08:14 AM EDT ? Dictated By: ?Misha Curtis MD ? Signed By: ?<Electronically signed by Misha Curtis MD in OV> ?11/14/24 0814 ? DD/ 0754 ? TD/TT: 11/14/24 0800 ? College Advisor: ? Procedure Note True, Nisha - 11/14/[address] [address] XRay Report Signed Patient: Heidi Marquez#: [id number] 760 : 1965Acct:[id number] Age/Sex: 58 / FADM Date: 11/14/24 Loc: HO.ED Attending Dr: Ordering Physician: Bobby Ham MD Date of Service: 11/14/24 Procedure(s): XR chest 1V Accession Number(s): [id number] cc: Bobby Ham MD; Amber Quiroz MD EXAMINATION: XR CHEST 1 VIEW HISTORY: chest pain COMPARISON: Comparison is made with the prior examination dated 03/13/2021. FINDINGS: A single AP portable view of the chest performed at 7:54 AM is submitted. The lungs are expanded and clear. There is no pleural effusion, pneumothorax, or pulmonary vascular congestion. The heart is normal in size. There is degenerative disc disease of the spine. XR/XR chest 1V IMPRESSION: No acute cardiopulmonary abnormality. Electronically signed by: Misha Curtis MD 11/14/2024 08:14 AM EDT RP Dictated By: Misha Curtis MD Signed By: <Electronically signed by Misha Curtis MD in OV> 11/14/24 0814 DD/ 0754 TD/TT: 11/14/24 0800 College Advisor: [facility] External Provider IMG XR PROCEDURES Final Result * D Dimer High Sensitivity (11/14/2024 7:49 AM EDT) D Dimer High Sensitivity 231 NG/ML [facility] Comment:D-DIMER HS REFERENCE RANGENote: Our assay reports D-Dimer Units (D- DU).The cut-off value for venous thromboembolic (VTE) disease is230 ng/mL. This value has a very high negative predictivevalue when the patient has a low to moderate clinicalprobability of VTE.The upper limit of normal is 243 ng/mL. 11/14/2024 7:49 AM EDT 11/14/2024 7:51 AM EDT Generic External Data Provider LAB BLOOD ORDERAB LES Final Result [facility] [address] [place] [phone] * High Sensitivity Troponin I (11/14/2024 7:49 AM EDT) Only the most recent of2 resultswithin the time period is included. [facility] TROPONIN I HIGH SENSITIVITY <2.7 <3.5 - 17.0 ng/L [facility] Comment:The [place] high sens itivity Troponin-I results should beused in conjunction with other diagnostic information suchas ECG, clinical observations and information, and patientsymptoms to aid in the diagnosis of [place]. 11/14/2024 7:49 AM EDT 11/14/2024 7:51 AM EDT us Generic External Data Provider LAB BLOOD ORDERAB LES Final Result [facility] [address] [place] [phone] * CBC auto differential (11/14/2024 5:36 AM EDT) Only the most recent of2 resultswithin the time period is included. [facility] White Blood Count 5.3 4.8 - 10.8 X10*3/uL [facility] Red Blood Count 4.52 4.20 - 5.50 X10*6/uL [facility] Hemoglobin 12.4 12.0 - 16.0 g/dl [facility] Hematocrit 37.7 37.0 - 47.0 % [facility] Mean Corpuscular Volume 83.4 80.0 - 98.0 fL [facility] Mean Corpuscular Hemoglobin 27.4 27.0 - 33.0 pg [facility] Mean Corpuscular HGB Conc 32.9 31.0 - 35.0 g/dl [facility] Red Cell Distribution Width 15.2 11.0 - 16.0 % [facility] Platelet Count 270 160 - 400 X10*3/uL [facility] Mean Platelet Volume 9.5 9.4 - 12.3 fL [facility] Neutrophils Percent Auto 57.0 45 - 73 % [facility] Imm Gran Pct Auto 0.0 0.0 - 0.4 % [facility] Lymphocytes Percent Auto 32.8 20 - 40 % [facility] Monocytes Percent Auto 7.9 2 - 11 % [facility] Eosinophils Percent Auto 2.1 0 - 4 % [facility] Basophils Percent Auto 0.2 0 - 2 % [facility] NRBC Pct Auto 0.0 0.0 - 0.2 /100WBC [facility] Neutrophils Absolute Auto 3.1 2.0 - 8.3 x10*3/uL [facility] Imm Gran Abs Auto 0.00 0.00 - 0.03 X10*3/uL [facility] Lymphocytes Absolute Auto 1.8 1.2 - 4.9 X10*3/uL [facility] Monocytes Absolute Auto 0.4 0.1 - 1.2 X10*3/uL [facility] Eosinophils Absolute Auto 0.1 0.0 - 0.4 X10*3/uL [facility] Basophils Absolute Auto 0.0 0.0 - 0.2 X10*3/uL [facility] NRBC Abs Auto 0.000 0.0 - 0.012 X10*3/uL [facility] 11/14/2024 5:36 AM EDT 11/14/2024 5:40 AM EDT us Generic External Data Provider LAB BLOOD ORDERAB LES Final Result [facility] [address] [place] [phone] [phone] * (ABNORMAL) Comprehensive Metabolic Panel (11/14/2024 5:36 AM EDT) Only the most recent of2 resultswithin the time period is included. Sodium 143 135 - 145 mmol/L [facility] Potassium 3.8 3.3 - 5.1 mmol/L [facility] Chloride 110(H) 96 - 108 mmol/L [facility] Carbon Dioxide 23 22 - 29 mmol/L [facility] Anion Gap 14 12 - 20 [facility] Urea Nitrogen (BUN) 16 9 - 16 mg/dL [facility] Creatinine, Serum 0.64 0.5 - 1.4 mg/dL [facility] Creatinine Clr Calc Pharmacy 66.7 [facility] Comment:Provided height and weight: 154.94 cm,44.7 kg.eGFR (calculated from the MDRD study equation) and eCrCl(calculated from the Cockcroft-Gault equation) are based ondifferent parameters and may not yield comparable results.If eCrCl result is absurd, please check patient'sheight/weight. Estimated Glomerular Filt Rate >60 [facility] Comment:Chronic Kidney Disea se: Estimated GFR < 60 mL/min/1.68o1Jmelrq Kidney Disease: Estimated GFR < 15 mL/min/1.73m2 Glucose 97 60 - 115 mg/dL [facility] Calcium 9.3 8.4 - 10.2 mg/dL [facility] Bilirubin, Total 0.3 0.0 - 1.0 mg/dL [facility] Aspartate Amino Transferase 44(H) 5 - 31 U/L [facility] Alanine Aminotransferase 37(H) 0 - 31 U/L [facility] Total Protein 7.5 6.5 - 8.0 g/dL [facility] Albumin Level 4.4 3.5 - 5.0 g/dL [facility] Alkaline Phosphatase 107 39 - 117 U/L [facility] 11/14/2024 5:36 AM EDT 11/14/2024 5:40 AM EDT us Generic External Data Provider LAB BLOOD ORDERAB LES Final Result [facility] [address] [place] [address] [phone] * (ABNORMAL) Urinalysis, Complete, with Reflex to Culture (11/11/2024 12:56 PM EDT) Only the most recent of2 resultswithin the time period is included. Color Urine DK YELLOW [facility] Appearance Urine Clear [facility] PH 5.0 5.0 - 9.0 [facility] Glucose Urine UA Negative Negative mg/dL [facility] Urine Blood Large (3+)(A) Negative [facility] Specific [place] - Urine 1.010 1.005 - 1.025 [facility] Urine Protein 300 (3+)(A) Neg-Trace mg/dL [facility] Urine Ketones Negative Negative mg/dL [facility] Nitrite Urine Negative Negative [facility] Leukocyte Esterase Urine Negative Negative [facility] RBC Urine >20(A) 0 - 2 /HPF [facility] Urine WBC 0-5 0 - 5 /HPF [facility] Urine Squamous Epithelial Cell 0-2 0 - 2 /HPF [facility] Urine Bacteria Trace None Seen [facility] Hyaline Casts, Urine 0-2 0 - 2 /LPF [facility] 11/11/2024 12:5 6 PM EDT 11/11/2024 12:59 PM EDT Narrative [facility] - 11/11/2024 1:24 PM EDT Urine, Clean Catch us Generic External Data Provider LAB URINE ORDERAB LES Edited Result - Final [facility] [address] [place] [address] [phone] * CT Abdomen Pelvis w/o Contrast (11/11/2024 11:14 AM EDT) Only the most recent of2 resultswithin the time period is included. Anatomical Region Laterality Modality Body, Pelvis, Abdomen Computed T omography 11/11/2024 11:1 4 AM EDT Narrative 11/11/2024 11:55 AM EDT ? [facility] ?[address] ?[place] [address] ? CT Scan Report ? Signed ? Patient: Marquez,Zelidez ?MR#: [id number] ?? 760 ? : 1965 ?Acct:[id number] ? Age/Sex: 58 / F ?ADM Date: 05/12/25 ? Loc: HO.ED ? Attending Dr: ? Ordering Physician: Felix Malik DO ?? Date of Service: 11/11/24 ?? Procedure(s): CT abdomen pelvis wo IV con ?? Accession Number(s): [id number] ? cc: Felix Malik DO; Amber Quiroz MD ? Report Number: ?? [id number]: Total DLP = ??447.00 mGy-cm ?? EXAMINATION: [...] DD/ 1114 ? TD/TT: 11/11/24 1139 ? College Advisor: ? Procedure Note Nisha Biswas - 11/11/[address] [address] CT Scan Report Signed Patient: Heidi Marquez#: [id number] 760 : 1965Acct:[id number] Age/Sex: 58 / FADM Date: 11/11/24 Loc: HO.ED Attending Dr: Ordering Physician: Felix Malik DO Date of Service: 11/11/24 Procedure(s): CT abdomen pelvis wo IV con Accession Number(s): [id number] cc: Felix Malik DO; Amber Quiroz MD Report Number: [id number]: Total DLP = 447.00 mGy-cm EXAMINATION: CT [...] Eliezer Whyte MD 11/11/2024 11:52 AM EDT RP Dictated By: Eliezer Whyte MD Signed By: <Electronically signed by Eliezer Whyte MD in OV> 11/11/24 1152 DD/ 1114 TD/TT: 11/11/24 1139 College Advisor: [facility] External Provider IMG CT PROCEDURES Final Result * Referral to Urology (09/25/2024) Amber Quiroz MD OUTPATIENT REFERRAL ORDERABLES F inal Result * Pathologist Review - CBC (09/03/2024 4:26 PM EST) [facility] Pathologist Review - CBC SEE NOTE [facility] Comment:Normochromic normocy tic anemia; white blood cells are mildlydecreased in number, but otherwise normal appearing.- Ray Viera M.D. Pathology Blood Venous blood specimen / Unknown 09/03/2024 4:26 PM EST 09/03/2024 6:14 PM EST Amber Quiroz MD LAB BLOOD ORDERABLES Final Resul t [facility] [address] [place] [phone] * Vitamin B12/Folate, Serum Panel (09/03/2024 4:26 PM EST) Pathologist [facility] Vitamin B12 247 200 - 900 pg/mL [facility] Comment:NORMAL 200-900 PG/ML INDETERMINATE 160-199 PG/ML DEFICIENT < 160 PG/ML Folate 9.9 > or = 4.0 ng/mL [facility] Comment:Reference Values:> o r = 4.0 ng/mL< 4.0 ng/mL suggests folate deficiency Methotrexate, aminopterin and folinic acid(leucovorin) are chemotherapeutic agents whose molecularstructures are similar to folate; therefore, the Architectfolate assay cannot be used for patients using these drugs. 09/03/2024 4:26 PM EST 09/03/2024 6:14 PM EST Amber Quiroz MD LAB BLOOD ORDERABLES Final Resul t Performing Organization Address City/[facility] Co de Phone Number [facility] [address] [place] [phone] * TSH with Reflex to Free T4 (09/03/2024 4:26 PM EST) TSH reflex Free T4 1.08 0.32 - 4.0 uIU/mL [facility] Blood 09/03/2024 4:26 PM EST 09/03/2024 6:14 PM EST Amber Quiroz MD LAB BLOOD ORDERABLES Final Resul t Performing Organization Address City/[facility]/ZIP Co de Phone Number [facility] [address] [place] [phone] * (ABNORMAL) Lipid Panel with Reflex to Direct LDL (09/03/2024 4:26 PM EST) Triglycerides 112 <150 mg/dL [facility] Comment:Desirable Triglyceri de: less than 150 mg/dLBorderline High Triglyceride 150-199 mg/dLHigh Triglyceride: 200-499 mg/dLVery High Triglyceride: greater than or equal to 5OO mg/dL Cholesterol 183 <200 mg/dL [facility] Comment:Desirable Cholestero l: less than 200 mg/dLBorderline High Cholesterol: 200-239 mg/dLHigh Cholesterol: greater than 239 mg/dL LDL Cholesterol Calculated 112(H) <100 mg/dL [facility] Comment:Desirable LDL: less than 100 mg/dLNear Optimal/Above Optimal LDL: 110- 129 mg/dLBorderline High LDL: 130-159 mg/dLHigh LDL: 160-189 mg/dLVery High LDL: greater than or equal to 190 mg/dL HDL Cholesterol 49 >40 mg/dL [facility] Comment:Desirable HDL: great er than 40 mg/dL Note: This HDL assay may give artificially low results in patients with liver disease. Blood 09/03/2024 4:26 PM EST 09/03/2024 6:14 PM EST Amber Quiroz MD LAB BLOOD ORDERABLES Final Resul t Performing Organization Address [facility] [place]/[facility] Phone Number [facility] [address] [place] [phone] * Iron And Total Iron Binding Capacity (09/03/2024 4:26 PM EST) Iron 69 30 - 160 mcg/dL [facility] Comment:Slight Hemolysis.Int erpret result with caution. Total Iron Binding Capacity 250 228 - 428 mcg/dL [facility] Percent Iron Saturation 28 15 - 50 % [facility] Unsaturated Iron Binding 181 ug/dL [facility] Blood Venous blood specimen / Unknown 09/03/2024 4:26 PM EST 09/03/2024 6:14 PM EST Amber Quiroz MD LAB BLOOD ORDERABLES Final Resul t Performing Organization Address [facility] [place]/[facility] de Phone Number [facility] [address] [place] [phone] * Hemoglobin A1c (09/03/2024 4:26 PM EST) Hemoglobin A1c 5.6 <6.0 % [facility] Comment:Hemoglobin A1C Refer ence Range Adults: 4.8 - 6.0 % Non diabetic: < 6.0 % Goal: < 7.0 %Additional Action Suggested: > 8.0 %Note: Hemoglobin A1c results are invalid for patients with abnormal amounts of HbF. Blood transfusions may impact the HbA1c concentration in the patient sample. Estimated Average Glucose 114 mg/dL [facility] Comment:eAG = Estimated ave rage glucose which is %A1C expressed asaverage glucose, using the formula of the Y6O-WvshvobZqlvatx Glucose study (ADAG), Diabetes Care, Vol.31,#8,2007 Blood Venous blood specimen / Unknown 09/03/2024 4:26 PM EST 09/03/2024 6:14 PM EST us Amber Quiroz MD LAB BLOOD ORDERABLES Final Resul t Performing Organization Address City/[facility]/ZIP Co de Phone Number [facility] [address] [place] [phone] * Ferritin (09/03/2024 4:26 PM EST) Ferritin 51 10 - 250 ng/mL [facility] Blood Venous blood specimen / Unknown 09/03/2024 4:26 PM EST 09/03/2024 6:14 PM EST us Amber Quiroz MD LAB BLOOD ORDERABLES Final Resul t Performing Organization Address City/[facility]/ZIP Co de Phone Number [facility] [address] [place] [phone] * (ABNORMAL) THINPREP TIS PAP AND [...] [facility] Fine Arts Packer: SEE COMMENT [facility] Comment: BJHam CT(ASCP) CT screening location: [address] ??[phone] General Categorization: EPITHELIAL CELL ABNORMALITY(A ) [facility] HPV nRNA E6/E7 Not Detected Not Detected [facility] Comment: Methodology: Metallurgical Technician-Mediated Amplification This assay detects E6/E7 viral messenger RNA (mRNA) from 14 high-risk HPV types (16,18,31,33,35,39,45,51,52,56,58,59,66,68). ? The analytical performance characteristics of this assay have been determined by [facility]. The modifications have not been cleared or approved by the FDA. This assay has been validated pursuant to the CLIA regulations and is used for clinical purposes. ?? For additional information, please refer to http://education.ViewRay/faq/QZH132h7 (This link if provided for information/ educational [...] N LAB SYSTEM PATHOLOGIST: SEE COMMENT FOUND [facility] Comment: Jennifer Branch M.D., Board Certified in Anatomic and Clinical Pathology (electronic signature) Consulting Pathologist [facility] [phone] Prev. BX: NONE GIVEN FOUNDATIO N LAB [...] CAMPUS EMERGENCY DEPARTMENT LAB SYSTEM [address] [place] [address], from Last 3 Months or Most Recently Relevant to Health Maintenance Insurance [facility] ST[employer] Care Teams Director Of Materials Management Relationship Specialty Start Date End Date Amber Quiroz MD [address] [place] [phone] PCP - General Family Medicine 07/03/18
--- OUTSIDE RECORDS SUMMARY | 2024-11-15 19:01 | XMS_ITS | Encounter Summary ---
Author Organization [employer] Address [address] [facility] 7t [place] [address] Care Team Providers Care Engine Generator Assembler Name Role Phone Amber Quiroz MD Primary Care Provider [phone] Reason for Visit * Reason Onset Date Comments Med Refill 06/21/2024 Encounter Details Date Type Department Care Team ([facility] st Contact Info) Description 06/21/2024 Telephone [facility] [address] [place], [place] [phone] Amber Quiroz MD [address] [place], [place] [phone] Med Refill Social History Tobacco Use Types [...] extra strength with no relief. Please advise. FILM DRYING MACHINE OPERATOR checked 06/21/24. Last refill of Oxycodone 5mg 11/30/23 qty 12. * Telephone Encounter - Gemma Oliveira - 06/21/2024 10:12 AM EST TC from pt requesting medication refill. Medications needing refill : oxyCODONE (Oxy-IR) 5 MG immediate release capsule To be sent to: [facility] - [place], [place] - [address] [facility] documented in this encounter Plan of Treatment Upcoming Encounters Date Type Department Care Team ([facility] st Contact Info) Description 12/04/2024 2:00 PM EDT Clinical Support [facility] [address] [place] [address] documented as of this encounter Visit Diagnoses Not on filedocumented in this encounter Care Teams Engine Generator Assembler Relationship Specialty Start Date End Date Amber Quiroz MD [address] [place] [address] PCP - General Family Medicine 07/03/18 documented as of this encounter
--- OUTSIDE RECORDS SUMMARY | 2024-11-15 19:01 | XMS_ITS | Encounter Summary ---
Author Organization [employer] Address [address] [facility] 7t [place] [address] Care Team Providers Care Manager Of Internal Name Role Phone Amber Quiroz MD Primary Care Provider [phone] Reason for Visit * Reason Onset Date Comments Med Refill 01/10/2024 Encounter Details Date Type Department Care Team (Late st Contact Info) Description 01/10/2024 Telephone [facility] [address] [place], [place] [phone] Amber Quiroz MD [address] [place], [place] [phone] Med Refill Social History Tobacco Use Types [...] immediate release tablet To be sent to: [facility] - [place], [place] - [address] [place] [address] documented in this encounter Plan of Treatment Upcoming Encounters Date Type Department Care Team (Late st Contact Info) Description 12/04/2024 2:00 PM EDT Clinical Support [facility] [address] [place] [address] documented as of this encounter Visit Diagnoses Not on filedocumented in this encounter Care Teams Manager Of Internal Relationship Specialty Start Date End Date Amber Quiroz MD [address] [place] [phone] PCP - General Family Medicine 07/03/18 documented as of this encounter
--- OUTSIDE RECORDS SUMMARY | 2024-11-15 19:01 | XMS_ITS | Encounter Summary ---
Author Organization [employer] Address [address] [facility] [address] [place] [address] Care Team Providers Care Inserting Machine Operator Name Role Phone Amber Quiroz MD Primary Care Provider [phone] Encounter Details Date Type Department Care Team (Late st Contact Info) Description 11/14/2024 Orders Only GENERIC EXTERNAL DATA DEPARTMENT [...] Description 12/04/2024 2:00 PM EDT Clinical Support [facility] [address] [place] [address] documented as of this encounter Procedures Procedure Name Priority Date/Time Associated Diagnosis Comments XR CHEST 1 VIEW Routine 11/14/2024 7:54 AM EDT D DIMER HIGH SENSITIVITY Routine 11/14/2024 7:49 AM EDT HIGH SENSITIVITY TROPONIN I Routine 11/14/2024 7:49 AM EDT HIGH SENSITIVITY TROPONIN I Routine 11/14/2024 5:36 AM EDT CBC WITH AUTO DIFFERENTIAL Routine 11/14/2024 5:36 AM EDT COMPREHENSIVE METABOLIC PANEL Routine 11/14/2024 5:36 AM EDT documented in this encounter Results * XR Chest 1 View (11/14/2024 7:54 AM EDT) Anatomical Region Laterality Modality Chest Radiographic Shy ging 11/14/2024 7:54 AM EDT Narrative 11/14/2024 8:16 AM EDT ? [facility] ?[address] ?[place] [address] ?XRay Report ? Signed ? Patient: Marquez,Zelidez ?MR#: [id number] ?? [id number] ? : 1965 ?Acct:[id number] ? Age/Sex: 58 / F ?ADM Date: 05/15/25 ? Loc: HO.ED ? Attending Dr: ? Ordering Physician: Bobby Ham MD ?? Date of Service: 11/14/24 ?? Procedure(s): XR chest 1V ?? Accession Number(s): [id number] ? cc: Bobby Ham MD; Amber Quiroz [...] DD/ 0754 ? TD/TT: 11/14/24 0800 ? Associate Principal: ? Procedure Note Nisha Biswas - 11/14/[address] [address] XRay Report Signed Patient: John MarquezMR#: [id number] : 1965Acct:[id number] Age/Sex: 58 / FADM Date: 11/14/24 Loc: HO.ED Attending Dr: Ordering Physician: Bobby Ham MD Date of Service: 11/14/24 Procedure(s): XR chest 1V Accession Number(s): [id number] cc: Bobby Ham MD; Amber Quiroz MD [...] 11/14/24 0814 DD/ 0754 TD/TT: 11/14/24 0800 Associate Principal: [facility] External Provider IMG XR PROCEDURES Final Result * High Sensitivity Troponin I (11/14/2024 7:49 AM EDT) [facility] TROPONIN I HIGH SENSITIVITY <2.7 <3.5 - 17.0 ng/L [facility] Comment:The [place] high sens itivity Troponin-I results should beused in conjunction with other diagnostic information suchas ECG, clinical observations and information, and patientsymptoms to aid in the diagnosis of AL. 11/14/2024 7:49 AM EDT 11/14/2024 7:51 AM EDT Generic External Data Provider LAB BLOOD ORDERAB LES Final Result Performing Organization Address [facility] [address]/ZIP Co de Phone Number [facility] [address] [place] [address] [phone] * D Dimer High Sensitivity (11/14/2024 7:49 AM EDT) [facility] D Dimer High Sensitivity 231 NG/ML [facility] Comment:D-DIMER HS REFERENCE RANGENote: Our assay [...] Provider LAB BLOOD ORDERAB LES Final Result [facility] [address] [place] [phone] * High Sensitivity Troponin I (11/14/2024 5:36 AM EDT) Pathologist [facility] TROPONIN I HIGH SENSITIVITY <2.7 <3.5 - 17.0 ng/L [facility] Comment:The [place] high sens itivity Troponin-I results should beused in conjunction with other diagnostic information suchas ECG, clinical observations and information, and patientsymptoms to aid in the diagnosis of AL. 11/14/2024 5:36 AM EDT 11/14/2024 5:40 AM EDT us Generic External Data Provider LAB BLOOD ORDERAB LES Final Result [facility] [address] [place] [phone] * (ABNORMAL) Comprehensive Metabolic Panel (11/14/2024 5:36 AM EDT) [facility] Sodium 143 135 - 145 mmol/L [facility] Potassium 3.8 3.3 - 5.1 mmol/L [facility] Chloride 110(H) 96 - 108 mmol/L [facility] Carbon Dioxide 23 22 - 29 mmol/L [facility] Anion Gap 14 12 - 20 [facility] Urea Nitrogen (BUN) 16 9 - 16 mg/dL [facility] Creatinine, Serum 0.64 0.5 - 1.4 mg/dL [facility] Creatinine Clr Calc Pharmacy 66.7 [facility] Comment:Provided height and weight: 154.94 cm,44.7 kg.eGFR (calculated from the MDRD study equation) and eCrCl(calculated from the Cockcroft-Gault equation) are based ondifferent parameters and may not yield comparable results.If eCrCl result is absurd, please check patient'sheight/weight. Estimated Glomerular Filt Rate >60 [facility] Comment:Chronic Kidney Disea se: Estimated GFR < 60 mL/min/1.44v2Mbhdxu Kidney Disease: Estimated GFR < 15 mL/min/1.73m2 Glucose 97 60 - 115 mg/dL [facility] Calcium 9.3 8.4 - 10.2 mg/dL [facility] Bilirubin, Total 0.3 0.0 - 1.0 mg/dL [facility] Aspartate Amino Transferase 44(H) 5 - 31 U/L [facility] Alanine Aminotransferase 37(H) 0 - 31 U/L [facility] Total Protein 7.5 6.5 - 8.0 g/dL [facility] Albumin Level 4.4 3.5 - 5.0 g/dL [facility] Alkaline Phosphatase 107 39 - 117 U/L [facility] 11/14/2024 5:36 AM EDT 11/14/2024 5:40 AM EDT us Generic External Data Provider LAB BLOOD ORDERAB LES Final Result [facility] [address] [place] [phone] * CBC auto differential (11/14/2024 5:36 AM EDT) White Blood Count 5.3 4.8 - 10.8 X10*3/uL [facility] Red Blood Count 4.52 4.20 - 5.50 X10*6/uL [facility] Hemoglobin 12.4 12.0 - 16.0 g/dl [facility] Hematocrit 37.7 37.0 - 47.0 % [facility] Mean Corpuscular Volume 83.4 80.0 - 98.0 fL [facility] Mean Corpuscular Hemoglobin 27.4 27.0 - 33.0 pg [facility] Mean Corpuscular HGB Conc 32.9 31.0 - 35.0 g/dl [facility] Red Cell Distribution Width 15.2 11.0 - 16.0 % [facility] Platelet Count 270 160 - 400 X10*3/uL [facility] Mean Platelet Volume 9.5 9.4 - 12.3 fL [facility] Neutrophils Percent Auto 57.0 45 - 73 % [facility] Imm Gran Pct Auto 0.0 0.0 - 0.4 % [facility] Lymphocytes Percent Auto 32.8 20 - 40 % [facility] Monocytes Percent Auto 7.9 2 - 11 % [facility] Eosinophils Percent Auto 2.1 0 - 4 % [facility] Basophils Percent Auto 0.2 0 - 2 % [facility] NRBC Pct Auto 0.0 0.0 - 0.2 /100WBC [facility] Neutrophils Absolute Auto 3.1 2.0 - 8.3 x10*3/uL [facility] Imm Gran Abs Auto 0.00 0.00 - 0.03 X10*3/uL [facility] Lymphocytes Absolute Auto 1.8 1.2 - 4.9 X10*3/uL [facility] Monocytes Absolute Auto 0.4 0.1 - 1.2 X10*3/uL [facility] Eosinophils Absolute Auto 0.1 0.0 - 0.4 X10*3/uL [facility] Basophils Absolute Auto 0.0 0.0 - 0.2 X10*3/uL [facility] NRBC Abs Auto 0.000 0.0 - 0.012 X10*3/uL [facility] 11/14/2024 5:36 AM EDT 11/14/2024 5:40 AM EDT us Generic External Data Provider LAB BLOOD ORDERAB LES Final Result [facility] [address] [place] [phone] [phone] documented in this encounter Visit Diagnoses Not on filedocumented in this encounter Care Teams Inserting Machine Operator Relationship Specialty Start Date End Date Amber Quiroz MD [address] [place] [address] PCP - General Family Medicine 07/03/18 documented as of this encounter
--- OUTSIDE RECORDS SUMMARY | 2024-11-15 19:01 | XMS_ITS | Encounter Summary ---
Author Organization [employer] Address [address] [facility] [address] [place] [address] Care Team Providers Care Manager Simulation Name Role Phone Amber Quiroz MD Primary Care Provider [phone] Encounter Details Date Type Department Care Team (Latest Contact Info) Description 11/12/2024 Travel Social History Tobacco Use Types Packs/Day [...] Description 12/04/2024 2:00 PM EDT Clinical Support [facility] [address] [place] [address] documented as of this encounter Visit Diagnoses Not on filedocumented in this encounter Care Teams Manager Simulation Relationship Specialty Start Date End Date Amber Quiroz MD [address] [place] [address] PCP - General Family Medicine 07/03/18 documented as of this encounter
--- OUTSIDE RECORDS SUMMARY | 2024-11-15 19:01 | XMS_ITS | Encounter Summary ---
Author Organization [employer] Address [address] [facility] 7t [place] [address] Care Team Providers Care Tool And Cutter Grinder Name Role Phone Amber Quiroz MD Primary Care Provider [phone] Reason for Visit * Reason Onset Date Comments Care Management 11/15/2024 C3CM- f/u call Encounter Details Date Type Department Care Team (Late st Contact Info) Description 11/15/2024 Telephone [facility] [address] [place], [place] [phone] Amber Quiroz MD [address] [place], [place] [phone] Care Management (C3CM- f/u call) Social History Tobacco Use Types Packs/Day Years [...] t he electric, gas, oil or water Copyright Agent threatened to shut off services in your [...] Telephone Encounter - Marixa Eric RN - 11/15/2024 11:50 AM EDT CM Marixa Eric RN and CHW Roxanne Dsouza placed outbound call to patient. Patient's name, and address confirmed. Patient with multiple ED visits since last call with CM. Patient seen at [facility] 11/14 for eval of CP. Patient home now. Patient states she missed her appt with Urology due to being in the ED at the time. She states her appt was rescheduled to December 03. Per patient, experiencing flank pain now. She also reports fever and nausea. Patient states she usually takes the tramadol for pain but feels the medication is not as effective. Patient reports Hx of kidney stones. She states she passes them frequently. Per patient, there's always blood in her urine. She states she does not understand why she always has kidney stones as she eats a healthy diet and doesn't consume soda. Patient states the pain is only bringing up her BP. Patient states she took her BP meds around 6am this morning. Per patient, checked her BP several hours later and noted that it was high. Patient unable to provide an exact reading. Patient states she is in pain now. Patient states she does not want to call an ambulance or return to the ED as she is embarrassed. Patient crying on the line and requesting that a call be placed to her Urologist's office to schedule a sooner visit. No further questions or concerns. CM reinforced direct contact information or CHW for any additional questions or concerns. Education provided on [facility] located in [facility] of [facility]. Patient provided with after-hours line for [facility], , which offer night time triage service and option to transfer to concrete laborer provider if needed. Patient verbalizes understanding, and able to repeat back to curriculum writer. A follow up call will be placed within 10 days, patientagrees with plan. Call placed to Urology and transferred to triage line. Left v/m requesting return call. Call placedto patient and patient informed. Advised that she please seek medical attention for further eval ofsymptoms. Patient states she does not want to go to the ED. She states she just received a call from the hospital for a status check. She states the nurse asked her about her symptoms and that she reported that she was in pain and that her symptoms had not improved. CM recommended that she return to ED for eval. She agrees. documented in this encounter Plan of Treatment Upcoming Encounters Date Type Department Care Team (Late st Contact Info) Description 12/04/2024 2:00 PM EDT Clinical Support [facility] [address] [place] [address] documented as of this encounter Visit Diagnoses Not on filedocumented in this encounter Care Teams Tool And Cutter Grinder Relationship Specialty Start Date End Date Amber Quiroz MD [address] [place] [address] PCP - General Family Medicine 07/03/18 documented as of this encounter
[2024-11-15] MEDS: Ondansetron ODT 4 MG TAB.RAPDIS TRANSLINGU (19:14)
--- NOTE | 2024-11-15 19:31 | MHC.EDTECH ---
pt aware we need urine sample, blood drawn now, sent to lab.
[2024-11-15 19:32] LABS: MANUAL DIFF FLAG NO
[2024-11-15 19:39] LABS: Basophils Percent Auto 0.2 % (0-2); Eosinophils Absolute Auto 0.1 X10*3/uL (0.0-0.4); Eosinophils Percent Auto 0.8 % (0-4); Hemoglobin 11.3 g/dl (12.0-16.0); Imm Gran Abs Auto 0.01 X10*3/uL (0.00-0.03); Imm Gran Pct Auto 0.2 % (0.0-0.4); Lymphocytes Percent Auto 33.1 % (20-40); Mean Corpuscular HGB Conc 33.2 g/dl (31.0-35.0); Mean Corpuscular Hemoglobin 27.6 pg (27.0-33.0); Mean Corpuscular Volume 83.1 fL (80.0-98.0); Mean Platelet Volume 9.4 fL (9.4-12.3); Monocytes Absolute Auto 0.5 X10*3/uL (0.1-1.2); Neutrophils Absolute Auto 3.4 x10*3/uL (2.0-8.3); Neutrophils Percent Auto 57.7 % (45-73); Platelet Count 270 X10*3/uL (160-400); Red Blood Count 4.09 X10*6/uL (4.20-5.50); White Blood Count 5.9 X10*3/uL (4.8-10.8)
[2024-11-15 19:45] LABS: Anion Gap 15 (12-20); Blood Urea Nitrogen 12 mg/dL (9-16); Carbon Dioxide 26 mmol/L (22-29); Chloride 107 mmol/L (96-108); Creatinine Clr Calc Pharmacy 67.1; Estimated Glomerular Filt Rate > 60; Glucose Random 94 mg/dL (60-115); Potassium 4.2 mmol/L (3.3-5.1); Sodium 144 mmol/L (135-145)
[2024-11-15 19:53] LABS: Troponin-I High Sensitivity < 2.7 ng/L (<3.5-17.0)
[2024-11-15] MEDS: oxyCODONE HCl Immed Release 5 MG TABLET PO (19:59)
--- NOTE | 2024-11-15 19:59 | PC.NURSE ---
pt tearful upon entering room. stating she needs pain medication, this nurse returned to PUJA jones to inform. order placed for oxycodone. this nurse returned to pt room, pt calm scrolling on phone. pt accepted oxycodone. urine sent
[2024-11-15 20:14] LABS: Appearance Urine Cloudy; Color Urine Orange; Glucose Urine UA Negative (Negative); Leukocyte Esterase Urine Small (1+) (Negative); Nitrite Urine Negative (Negative); PH 6.5 (5.0-9.0); Specific Gravity - Urine 1.025 (1.005-1.025); UMIC TRIGGER UACC YES; Urine Blood Large (3+) (Negative); Urine Ketones Negative (Negative); Urine Protein 30 (1+) mg/dL (Neg-Trace)
[2024-11-15 20:15] VITALS: BP 0/0; PULSE 0; RESP 0; TEMP -17.7; TEMP 0; O2SAT 0
--- NOTE | 2024-11-15 20:15 | PC.NURSE ---
refused to wait for PU[facility] Hunter to put in discharge papers. states she wants to leave and has a ride waiting
[2024-11-15 20:17] LABS: Bacteria Urine 3+ (None Seen); Hyaline Casts Urine 0-2 /LPF (0-2); RBC Urine >20 /HPF (0-2); UACC Culture Trigger YES
--- NOTE | 2024-11-15 20:28 | ED_ITS ---
HPI - General Adult General Chief complaint: Abdominal Pain Stated complaint: abd pain, chest pain Time Seen by Provider: 11/15/24 18:04 Source: patient, RN notes reviewed and old records reviewed Mode of arrival: EMS Limitations: no limitations History of Present Illness ED Provider: Aubrey BELLE narrative: 58-year-old female with a past medical history significant for hypertension, recurrent UTIs, hematuria presents for evaluation of flank pain and chest pain. The patient was seen here yesterday for similar complaints and was ultimately discharged after a negative workup She follows with urology in [place] due to blood in urine. She reports that she has an appointment coming up in April She states that she has 10/10 chest pain, 10/10 pain to both flanks and blood in the urine. She reports fevers this morning with associated nausea and vomiting She states ?I am just tired of being in pain all the time. I Related Data Home Medications ?Medication ?Instructions ?Recorded ?Confirmed albuterol sulfate 90 mcg/actuation 2 puff PO Q4-6H PRN dyspnea 11/26/20 11/26/20 aerosol inhaler (ProAir HFA) amlodipine 10 mg tablet 1 tab PO DAILY 11/26/20 11/26/20 ascorbic acid (vitamin C) 250 mg 1 tab PO BID 11/26/20 11/26/20 tablet atorvastatin 10 mg tablet 1 tab PO DAILY 11/26/20 11/26/20 clonidine HCl 0.2 mg tablet 1 tab PO BID PRN panic attack 11/26/20 11/26/20 cyanocobalamin (vitamin B-12) 500 1 tab PO DAILY 11/26/20 11/26/20 mcg tablet docusate sodium 100 mg capsule 1 - 2 cap PO BEDTIME PRN 11/26/20 11/26/20 constipation fluoxetine 20 mg capsule 3 cap PO QAM 11/26/20 11/26/20 gabapentin 100 mg capsule 1 cap PO TID PRN anxiety 11/26/20 11/26/20 gabapentin 400 mg capsule 1 cap PO BEDTIME 11/26/20 11/26/20 loratadine 10 mg tablet 1 tab PO DAILY 11/26/20 11/26/20 loratadine 10 mg tablet 1 tab PO DAILY 11/26/20 11/26/20 mirtazapine 30 mg tablet 1 tab PO BEDTIME 11/26/20 11/26/20 mirtazapine 30 mg tablet 1 tab PO BEDTIME 11/26/20 11/26/20 ondansetron HCl 4 mg tablet 1 tab PO Q8H PRN nausea 11/26/20 11/26/20 polyvinyl alcohol 1.4 % eye drops 1 drp ophthalmic (eye) TID 11/26/20 11/26/20 (Artificial Tears (polyvinyl alcohol)) quetiapine 25 mg tablet 1 tab PO BID PRN anxiety 11/26/20 11/26/20 topiramate 25 mg tablet 1 tab PO BID 11/26/20 11/26/20 zolpidem 10 mg tablet 1 tab PO BEDTIME PRN insomnia 11/26/20 11/26/20 Previous Rx's ?Medication ?Instructions ?Recorded tramadol 50 mg tablet 50 mg PO Q8H PRN pain #3 tabs 11/26/20 nitrofurantoin 100 mg PO BID #14 caps 05/26/21 monohydrate/macrocrystals 100 mg capsule (Macrobid) phenazopyridine 100 mg tablet 100 mg PO TID PRN pain 6 doses #6 05/26/21 (Pyridium) tabs cefuroxime axetil 250 mg tablet 250 mg PO BID 7 days #14 tabs 07/15/21 morphine 15 mg immediate release 15 mg PO BID PRN pain #8 tabs 07/15/21 tablet docusate sodium 100 mg capsule 100 mg PO BID #20 caps 07/21/21 (Colace) sennosides 8.6 mg tablet (senna) 8.6 mg PO BEDTIME #14 tabs 07/21/21 docusate sodium 100 mg capsule 100 mg PO BID PRN Constipation #14 11/23/21 (Colace) caps nitrofurantoin 100 mg PO BID uti 7 days #14 caps 11/23/21 monohydrate/macrocrystals 100 mg capsule (Macrobid) ondansetron 4 mg disintegrating 4 mg PO Q6H nausea/vomiting #14 11/23/21 tablet tabs cephalexin 500 mg capsule 500 mg PO Q8H 7 days #21 caps 08/02/22 ondansetron 4 mg disintegrating 4 mg PO Q8H PRN nausea and 03/02/23 tablet vomiting #10 tabs phenazopyridine 200 mg tablet 200 mg PO TID PRN pain 6 doses #6 03/02/23 (Pyridium) tabs acetaminophen 325 mg capsule 650 mg (2 x 325 mg) PO Q6H PRN 04/01/24 (Tylenol) pain #30 caps cefdinir 300 mg capsule 300 mg PO BID 5 days #10 caps 04/01/24 cephalexin 500 mg capsule 500 mg PO BID #14 caps 07/15/24 ondansetron HCl 4 mg tablet 4 mg PO Q8H PRN nausea and 07/15/24 vomiting #10 tabs oxycodone 5 mg tablet 5 mg PO Q6H PRN pain, moderate #10 07/15/24 tabs tamsulosin 0.4 mg capsule (Flomax) 0.4 mg PO DAILY #6 caps 07/15/24 dicyclomine 10 mg capsule 10 mg PO BID #14 caps 08/14/24 ondansetron 4 mg disintegrating 4 mg PO Q8H PRN nausea and 08/14/24 tablet vomiting #10 tabs cefuroxime axetil 250 mg tablet 250 mg PO BID 7 days #14 tabs 10/17/24 ondansetron 4 mg disintegrating 4 mg PO Q8H PRN nausea and 10/17/24 tablet vomiting #7 tabs oxycodone 5 mg tablet 5 mg PO Q8H PRN severe pain (scale 10/17/24 score 7-10) #9 tabs tamsulosin 0.4 mg capsule (Flomax) 0.4 mg PO BEDTIME #14 caps 10/17/24 Allergies Allergy/AdvReac Type Severity Reaction Status Date / Time aspirin [ASA] Allergy Intermediate RASH, Verified 11/15/24 18:02 nausea and vomiting ibuprofen [IBUPROFEN] Allergy Intermediate RASH Verified 11/14/24 05:30 nicotine Allergy Intermediate RASH FROM Verified 11/14/24 05:30 NICOTINE PATCH, nausea and vomiting ketorolac [From TORADOL] Allergy Mild RAPID HR Verified 11/14/24 05:30 AND HIVES haloperidol [From Haldol] Allergy Anaphylaxis Verified 11/14/24 05:30 metoclopramide [From Reglan] Allergy Unknown Verified 11/14/24 05:30 Review of Systems 2 Constitutional: Constitutional: Reports body ache(s), Reports chills, Reports fever(s) and Denies headache(s) Eyes: Eyes: Denies blurry vision ENT: Denies vertigo, Denies dizziness and Denies headache(s) Cardiovascular: Cardiovascular: Reports chest pain, Reports chest pain at rest and Denies dyspnea Respiratory: Respiratory: Denies cough and Denies dyspnea Gastrointestinal: Gastrointestinal: Reports abdominal pain, Reports nausea and Reports vomiting Genitourinary: Genitourinary: Reports hematuria, Denies dysuria and Reports flank pain Musculoskeletal: Musculoskeletal: Reports back pain Integumentary/Breasts: Skin/Breast: Denies rash Neurologic: Denies vertigo, Denies dizziness and Denies headache(s) [facility] Past Medical History Medical History delivery delivered HTN (hypertension) Anemia Hypercholesteremia DVT (deep venous thrombosis) Kidney stones Surgical History Total knee replacement status Social History Social History Unable to assess alcohol history related to: Unknown Alcohol intake: never Patient Tobacco Use Status: Current everyday Tobacco user Smoked in Last 30 Days: No Use of substances other than those prescribed or required for medical reasons: No Substance Use Type: Prescription Drugs Advance Directives: No Advance Directives Information Provided: Yes Patient : No Physical Exam ED Vital Signs: Vital Signs - 24 hr 11/15/24 18:01 Temperature 98.1 F Pulse Rate 86 Respiratory Rate 18 Blood Pressure 187/77 H Pulse Oximetry 97 Oxygen Delivery Method Room Air BMI result Body Mass Index 38.5 Const Other: The patient is tearful but well-appearing General: healthy appearing, comfortable, no acute distress, alert and awake Nutritional Appearance: well nourished Orientation/consciousness: patient oriented x3 HENMT Head: Yes normocephalic and Yes atraumatic Eyes Eyelids: Yes eyelids normal Conjunctivae: conjunctivae normal Sclerae: sclerae normal Corneas: corneas normal Pupils: Equal, round and reactive pupils present EOM: EOMs intact bilaterally Neck Neck: Yes full ROM Resp Effort & Inspection: normal respiratory effort, able to speak in complete sentences and not labored Cardio Rate: regular rate Rhythm: regular rhythm GI Inspection: No distended Palpation (GI): Soft to palpation, not firm, nontender, no guarding and not rigid Skin General skin exam: elasticity normal Neuro General: patient oriented x3 Cranial nerves: Yes CN's II-XII intact bilaterally, Yes Equal, round and reactive pupils present and Yes Bilaterally intact EOM present Cognition (Neuro): normal cognition Extrem Other: Moving all extremities well without any obvious deformities Course Reevaluation(s) Reevaluation #1: Patient's urinalysis does have 3+ bacteria with hematuria. She has no leukocytosis and she is afebrile in the ER. We will defer antibiotic treatment pending culture and she will follow up with her your as an outpatient. The patient's EKG is nonischemic, troponin is negative. Blood pressure improved Time: 20:40 Medications Administered Discontinued Medications Generic Name Dose Route Start Last Admin Trade Name Freq PRN Reason Stop Dose Admin Droperidol 1.25 mg 11/15/24 19:26 11/15/24 19:58 Droperidol 5 Mg/2 Ml Vial IM 11/15/24 19:27 Not Given ONCE ONE Ondansetron HCl 4 mg 11/15/24 19:11 11/15/24 19:14 Ondansetron Odt 4 Mg Tab.Rapdis TRANSLINGU 11/15/24 19:12 4 mg ONCE ONE Administration Oxycodone HCl 5 mg 11/15/24 19:54 11/15/24 19:59 Oxycodone Hcl Immed Release 5 Mg Tablet PO 11/15/24 19:55 5 mg ONCE ONE Administration Medical Decision Making Medical Decision Making MDM Narrative: 58-year-old female with past medical history as above presents for evaluation of multiple complaints including chest pain and flank pain. She was seen here yesterday and ruled out for ACS. The patient has had multiple ER visits for pain related complaints. She also reports that she seeks care at other local hospitals. She has had 20 cat scans at this facility of the abdomen pelvis alone in the last 5 years. She had a CT scan of the abdomen pelvis performed yesterday that did not show any acute findings. The patient's prescription monitoring program is significant for 111 controlled substance prescriptions by 12 different providers and filled it 5 different pharmacies in the last 2 years. I agreed to give her a dose of oxycodone 5 mg orally, she was requesting IV narcotics frequently and previous notes suggest similar behavior. I informed the patient that I will not order IV narcotics without objective findings to warrant parenteral narcotic analgesia. Differential Diagnosis Differential Diagnoses: The differential diagnosis associated with the presentation includes Chronic pain syndrome Drug-seeking behavior Obstructive uropathy Hematuria Lab Data MDM Lab Attestation statement: I reviewed the patient's lab results. No leukocytosis. The patient has a stable, mild anemia. No significant electrolyte abnormalities. Renal function within normal limits. 11/15/24 19:28 11/15/24 19:28 Labs: Lab Results 11/15/24 11/15/24 Range/Units 19:28 19:57 WBC 5.9 (4.8-10.8) X10*3/uL RBC 4.09 L (4.20-5.50) X10*6/uL Hgb 11.3 L (12.0-16.0) g/dl Hct 34.0 L (37.0-47.0) % MCV 83.1 (80.0-98.0) fL MCH 27.6 (27.0-33.0) pg MCHC 33.2 (31.0-35.0) g/dl RDW 15.0 (11.0-16.0) % Plt Count 270 (160-400) X10*3/uL MPV 9.4 (9.4-12.3) fL Immature Gran % (Auto) 0.2 (0.0-0.4) % Neut % (Auto) 57.7 (45-73) % Lymph % (Auto) 33.1 (20-40) % [place] % (Auto) 8.0 (2-11) % Eos % (Auto) 0.8 (0-4) % Baso % (Auto) 0.2 (0-2) % Lymph # (Auto) 2.0 (1.2-4.9) X10*3/uL [place] # (Auto) 0.5 (0.1-1.2) X10*3/uL Eos # (Auto) 0.1 (0.0-0.4) X10*3/uL Baso # (Auto) 0.0 (0.0-0.2) X10*3/uL Abs Immat Gran (auto) 0.01 (0.00-0.03) X10*3/uL Absolute Neuts (auto) 3.4 (2.0-8.3) x10*3/uL Absolute Nucleated RBC 0.000 (0.0-0.012) X10*3/uL Nucleated RBC % (auto) 0.0 (0.0-0.2) /100WBC Sodium 144 (135-145) mmol/L Potassium 4.2 (3.3-5.1) mmol/L Chloride 107 (96-108) mmol/L Carbon Dioxide 26 (22-29) mmol/L Anion Gap 15 (12-20) BUN 12 (9-16) mg/dL Creatinine 0.58 (0.5-1.4) mg/dL Estim Creat Clear Calc 67.1 Estimated GFR > 60 Random Glucose 94 (60-115) mg/dL Calcium 9.0 (8.4-10.2) mg/dL Troponin I High Sens < 2.7 (<3.5-17.0) ng/L Urine Color [place] A Urine Appearance Cloudy Urine pH 6.5 (5.0-9.0) Ur Specific [place] 1.025 (1.005-1.025) Urine Protein 30 (1+) H (Neg-Trace) mg/dL Urine Glucose (UA) Negative (Negative) mg/dL Urine Ketones Negative (Negative) mg/dL Urine Blood Large (3+) H (Negative) Urine Nitrite Negative (Negative) Ur Leukocyte Esterase Small (1+) H (Negative) Urine RBC >20 H (0-2) /HPF Urine WBC 6-10 H (0-5) /HPF Ur Squamous Epith Cells 11-20 (0-2) /HPF Urine Bacteria 3+ (None Seen) Hyaline Casts 0-2 (0-2) /LPF Independent Interpretation I performed an independent interpretation of an: EKG Interpretation: Normal sinus rhythm with a rate of [address] segment changes. Radiology Impression Discussion of test interpretation with radiology: I have reviewed the radiologist's reading. Radiologist Impression: Chart Viewer - ObserveIT John Marquez - Chart Viewer ? Chart Viewer Orders Diagnostics Subcategory All Activity ??:?? All Time ??:?? All Subcategories Filter Laboratory Imaging Microbiology Pathology Blood Bank Tests Cardiovascular Other Specialty DATE TYPE STATUS REF RANGE/AUTHOR Hx Today 19:44 Renal Ultrasound Signed Gee Lucero 11/14/24 07:54 Chest X-Ray Signed Misha Curtis 11/11/24 11:14 Abdomen/Pelvis CT Signed Eliezer Whyte 11/02/24 14:39 Abdomen/Pelvis CT Signed Xuan Paredes 10/17/24 12:13 Renal Ultrasound Signed Misha Curtis 10/09/24 03:51 Abdomen/Pelvis CT Signed Jhony Velez 09/30/24 16:06 Abdomen/Pelvis CT Signed Shayan Purvis 08/14/24 10:31 Abdomen/Pelvis CT Signed Misha Curtis 07/15/24 16:03 Abdomen/Pelvis CT Signed Eliezer Whyte 04/01/24 06:51 Abdomen/Pelvis CT Signed Chuabran,Anvi 11/01/23 06:45 Abdomen/Pelvis CT Signed Lynnette Malik 04/26/23 06:05 Abdomen/Pelvis CT Signed Gee Velasco 03/02/23 14:46 Abdomen/Pelvis CT Signed Shreya,Anvi 08/02/22 00:56 Abdomen/Pelvis CT Signed Gee Velasco 11/23/21 09:35 Abdomen/Pelvis CT Signed Isaías Fairchild 07/21/21 14:05 Abdomen/Pelvis CT Signed Shanit Thayer 07/15/21 13:20 Abdomen/Pelvis CT Signed Maria T Russell 03/13/21 02:26 Chest X-Ray Signed Dayday Gonzales 03/11/21 05:43 Abdomen/Pelvis CT Signed Lars Miller 01/29/21 03:08 Abdomen/Pelvis CT Signed Dayday Gonzales 11/26/20 03:27 Abdomen/Pelvis CT Signed Han Godinez 10/18/20 04:15 Lumbar Spine X-Ray Signed Adilson Meehan 10/18/20 04:15 Hip/Pelvis X-Ray Signed Adilson Meehan 09/21/20 05:44 Chest X-Ray Signed Eliezer Jones 08/05/20 06:02 Abdomen/Pelvis CT Signed Shanti Thayer 06/24/20 18:21 Abdomen/Pelvis CT Signed Charis Whitley 05/28/20 07:30 Abdomen/Pelvis CT Signed Sathish Machado 04/02/20 10:14 Chest X-Ray Signed Shanti Thayer Zelidez ED 58, F?1965 MRN#? [id number] REG ER,?Emergency Department??Discharge Bed?-DIS2? 4ft 3in 64.6kg BMI: 38.5kg/m? VIP Abdominal Pain Acc#? [id number] Resus Status Not Ordered No Hx Avail Historical Visits Triage Note to ED from [facility]. bilateral flank pain 04/11. left sided chest pain. blood in urine. Allergies aspirin (ASA) RASH, nausea and vomiting ibuprofen (IBUPROFEN) RASH nicotine RASH FROM NICOTINE PATCH, nausea and vomiting ketorolac (From TORADOL) RAPID HR AND HIVES haloperidol (From Haldol) Anaphylaxis metoclopramide (From Reglan) Unknown Problems ? ONSET Hypertension Chest pain Hematuria Recurrent UTI Kidney stones Home Meds Not Confirmed Prescription Monitoring Program Total 97.5 MME/Day Unconfirmed MEDICATIONS (INSTRUCTIONS) LAST TAKEN Active ??acetaminophen [Tylenol] ??650 mg(2 x 325 mg)CTH4BGHWrglq#30 caps *Product no longer available ??albuterol sulfate [ProAir HFA] ??2 puffPOQ4-6HPRNdyspnea *Product no longer available ??amlodipine ??1 tabPODAILY ??ascorbic acid (vitamin C) ??1 tabPOBID ??atorvastatin ??1 tabPODAILY ??cefdinir ??300 mgPOBID5 days#10 caps ??cefuroxime axetil ??250 mgPOBID7 days#14 tabs ??cefuroxime axetil ??250 mgPOBID7 days#14 tabs ??cephalexin ??500 qkEFP0N5 days#21 caps ??cephalexin ??500 mgPOBID#14 caps ??clonidine HCl ??1 tabPOBIDPRNpanic attack ??cyanocobalamin (vitamin B-12) ??1 tabPODAILY ??dicyclomine ??10 mgPOBID#14 caps ??docusate sodium ??1 - 2 capPOBEDTIMEPRNconstipation ??docusate sodium [Colace] ??100 mgPOBID#20 caps ??docusate sodium [Colace] ??100 mgPOBIDPRNConstipation#14 caps ??fluoxetine ??3 capPOQAM ??gabapentin ??1 capPOTIDPRNanxiety ??gabapentin ??1 capPOBEDTIME ??loratadine ??1 tabPODAILY ??loratadine ??1 tabPODAILY ??mirtazapine ??1 tabPOBEDTIME ??mirtazapine ??1 tabPOBEDTIME ??morphine ??15 mgPOBIDPRNpain#8 tabs 30 MME/Day ??nitrofurantoin monohyd/m-cryst [Macrobid] ??100 mgPOBID#14 caps ??nitrofurantoin monohyd/m-cryst [Macrobid] ??100 mgPOBIDuti7 days#14 caps ??ondansetron ??4 dtQSP3Hvtikkq/vomiting#14 tabs ??ondansetron ??4 gtPZI7WYMGlsywra and vomiting#10 tabs ??ondansetron ??4 ugYDA0NNVTcginxq and vomiting#10 tabs ??ondansetron ??4 keJRZ2KCWQjkoosp and vomiting#7 tabs ??ondansetron HCl ??1 ksbOGX6OCAGoqhtjv ??ondansetron HCl ??4 feOSS3QLNTfodujr and vomiting#10 tabs ??oxycodone ??5 ffOTU9LXCSyhmh, moderate#10 tabs 30 MME/Day ??oxycodone ??5 mqPGK7WTALlrnfjx pain (scale score 7-10)#9 tabs 22.5 MME/Day ??phenazopyridine [Pyridium] ??100 mgPOTIDPRNpain6 doses#6 tabs ??phenazopyridine [Pyridium] ??200 mgPOTIDPRNpain6 doses#6 tabs ??polyvinyl alcohol [Artificial Tears (polyvin alc)] ??1 drpophthalmic (eye)TID ??quetiapine ??1 tabPOBIDPRNanxiety ??sennosides [senna] ??8.6 mgPOBEDTIME#14 tabs ??tamsulosin [Flomax] ??0.4 mgPODAILY#6 caps ??tamsulosin [Flomax] ??0.4 mgPOBEDTIME#14 caps ??topiramate ??1 tabPOBID ??tramadol ??50 jxGEH6POSFthyl#3 tabs 15 MME/Day ??zolpidem ??1 tabPOBEDTIMEPRNinsomnia ED EMS Hand-Off No Data to Display Orders Snapshot DISCONTINUED MEDICATIONS Ondansetron ODT [Zofran ODT]4mgTRANSLINGUONCEONE Discontinued droPERidol1.25mgIMONCEONE Discontinued oxyCODONE HCl Immed Release [Roxicodone]5mgPOONCEONE Discontinued CARDIOLOGY SERVICES ECG 12 lead EKG Stat Draft CARE EKG Documentation DIRECTED Completed LABORATORY CBC W/AUTO DIFF [Complete Blood Count Auto Diff] Stat Abnormal BMP [Basic Metabolic Panel] Stat Completed UA ClnCatch+Micro w/rflx Cult Stat Abnormal Troponin-I High Sensitivity Stat < 2.7 ng/L (<3.5-17.0)? MICROBIOLOGY Urine Culture Routine Received ULTRASOUND US renal BI Stat Completed [facility] ONSET delivery delivered HTN (hypertension) Anemia Hypercholesteremia DVT (deep venous thrombosis) Kidney stones SURGICAL HISTORY ONSET Total knee replacement status FAMILY HISTORY SOCIAL HISTORY My Widget No Data to Display Lab Results Last 24 Hrs Most Recent Hematology WBC (4.8-10.8) 5.9 X10*3/uL Today 19:28 RBC (4.20-5.50) 4.09 X10*6/uL L Today 19:28 Hgb (12.0-16.0) 11.3 g/dl L Today 19:28 Hct (37.0-47.0) 34.0 % L Today 19:28 MCV (80.0-98.0) 83.1 fL Today 19:28 MCH (27.0-33.0) 27.6 pg Today 19:28 MCHC (31.0-35.0) 33.2 g/dl Today 19:28 RDW (11.0-16.0) 15.0 % Today 19:28 Plt Count (160-400) 270 X10*3/uL Today 19:28 MPV (9.4-12.3) 9.4 fL Today 19:28 Immature Gran % (Auto) (0.0-0.4) 0.2 % Today 19:28 Neut % (Auto) (45-73) 57.7 % Today 19:28 Lymph % (Auto) (20-40) 33.1 % Today 19:28 [place] % (Auto) (2-11) 8.0 % Today 19:28 Eos % (Auto) (0-4) 0.8 % Today 19:28 Baso % (Auto) (0-2) 0.2 % Today 19: Lymph # (Auto) (1.2-4.9) 2.0 X10*3/uL Today 19: [place] # (Auto) (0.1-1.2) 0.5 X10*3/uL Today 19: Eos # (Auto) (0.0-0.4) 0.1 X10*3/uL Today 19: Baso # (Auto) (0.0-0.2) 0.0 X10*3/uL Today 19: Abs Immat Gran (auto) (0.00-0.03) 0.01 X10*3/uL Today 19: Absolute Neuts (auto) (2.0-8.3) 3.4 x10*3/uL Today 19: Absolute Nucleated RBC (0.0-0.012) 0.000 X10*3/uL Today 19: Nucleated RBC % (auto) (0.0-0.2) 0.0 /100WBC Today 19:28 Chemistry Sodium (135-145) 144 mmol/L Today 19:28 Potassium (3.3-5.1) 4.2 mmol/L Today 19: Chloride (96-108) 107 mmol/L Today 19:28 Carbon Dioxide (22-29) 26 mmol/L Today 19:28 Anion Gap (12-20) 15 Today 19:28 BUN (9-16) 12 mg/dL Today 19:28 Creatinine (0.5-1.4) 0.58 mg/dL Today 19:28 Estim Creat Clear Calc 67.1? Today 19:28 Estimated GFR > 60? Today 19:28 Random Glucose (60-115) 94 mg/dL Today 19:28 Calcium (8.4-10.2) 9.0 mg/dL Today 19:28 Troponin I High Sens (<3.5-17.0) < 2.7 ng/L Today 19:28 Urines Urine Color [place] A Today 19:57 Urine Appearance Cloudy Today 19:57 Urine pH (5.0-9.0) 6.5 Today 19:57 Ur Specific [place] (1.005-1.025) 1.025 Today 19:57 Urine Protein (Neg-Trace) 30 (1+) mg/dL H Today 19:57 Urine Glucose (UA) (Negative) Negative mg/dL Today 19:57 Urine Ketones (Negative) Negative mg/dL Today 19:57 Urine Blood (Negative) Large (3+) H Today 19:57 Urine Nitrite (Negative) Negative Today 19:57 Ur Leukocyte Esterase (Negative) Small (1+) H Today 19:57 Urine RBC (0-2) >20 /HPF H Today 19:57 Urine WBC (0-5) 6-10 /HPF H Today 19:57 Ur Squamous Epith Cells (0-2) 11-20 /HPF Today 19:57 Urine Bacteria (None Seen) 3+ Today 19:57 Hyaline Casts (0-2) 0-2 /LPF Today 19:57 Diagnostic Imaging Reports Renal Ultrasound Signed Today Diagnostic Departmental Reports CARDIOVASCULAR Electrocardiogram Draft Today MICROBIOLOGY Micro Urine Specimen Received Today Vitals - Initial & Most Recent CURRENT Today 18:01 BP 187/77 H Pulse 86 Resp 18 Temp 98.1 F O2 Sat 97 O2 Delivery Room Air Diagnostics Reports John Marquez?(VIP)??58??F??1965 ? Allergy/Adv: aspirin, ibuprofen, nicotine, ketorolac, haloperidol, metoclopramide (More??) Close Renal Ultrasound (Signed) Gee Lucero - 11/15/24 Chest X-Ray (Signed) Misha Curtis - 11/14/24 Abdomen/Pelvis CT (Signed) Eliezer Whyte - 11/11/24 Abdomen/Pelvis CT (Signed) Xuan Paredes - 11/02/24 Renal Ultrasound (Signed) Misha Curtis - 10/17/24 Abdomen/Pelvis CT (Signed) Jhony Velez - 10/09/24 Abdomen/Pelvis CT (Signed) Shayan Purvis - 09/30/24 Abdomen/Pelvis CT (Signed) Mihsa Curtis - 08/14/24 Abdomen/Pelvis CT (Signed) Eliezer Whyte - 07/15/24 Abdomen/Pelvis CT (Signed) Faustina Cash - 04/01/24 Abdomen/Pelvis CT (Signed) Lynnette Malik - 11/01/23 Abdomen/Pelvis CT (Signed) Gee Velasco - 04/26/23 Abdomen/Pelvis CT (Signed) Faustina Cash - 03/02/23 Abdomen/Pelvis CT (Signed) Gee Velasco - 08/02/22 Abdomen/Pelvis CT (Signed) DevorahAmericoIsaías - 11/23/21 Abdomen/Pelvis CT (Signed) Shanti Thayer - 07/21/21 Abdomen/Pelvis CT (Signed) Maria T Russell - 07/15/21 Chest X-Ray (Signed) Dayday Gonzales - 03/13/21 Abdomen/Pelvis CT (Signed) Lars Miller - 03/11/21 Abdomen/Pelvis CT (Signed) Dayday Gonzales - 01/29/21 Abdomen/Pelvis CT (Signed) Han Godinez - 11/26/20 Lumbar Spine X-Ray (Signed) Adilson Meehan - 10/18/20 Hip and Pelvis X-Ray (Signed) Adilson Meehan - 10/18/20 Chest X-Ray (Signed) Eliezer Jones - 09/21/20 Abdomen/Pelvis CT (Signed) Shanti Thayer - 08/05/20 Abdomen/Pelvis CT (Signed) Charis Whitley - 06/24/20 Abdomen/Pelvis CT (Signed) Sathish Machado - 05/28/20 Chest X-Ray (Signed) Shanti Thayer - 04/02/20 Launch?Image [place] [id number] Ultrasound Report Signed Patient: John Marquez MR#: [id number] : 1965 Acct:[id number] Age/Sex: 58 / F ADM Date: 11/15/24 Loc: .ED Attending Dr: Ordering Physician: Jonathan Burgos Date of Service: 11/15/24 Procedure(s): US renal BI Accession Number(s): [id number] cc: Jonathan Burgos; Amber Quiroz MD~ CLINICAL HISTORY: bilat flank pain --- Additional Notes or Special Instructions: please evaluate for hydronephrosis US renal Comparison: 10/17/2024 Findings: Right kidney 9.9 cm length. No significant focal abnormality. 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 Left kidney 10.4 cm length. No significant focal abnormality. Small nonobstructing lower pole stone. No bilateral hydronephrosis. Normal bilateral renal echogenicity. Impression: Small nonobstructing left renal stone Otherwise unremarkable This document has been electronically signed by: Gee Lucero MD on 11/15/2024 19:44:29 Dictated By: Gee Lucero MD Signed By: <Electronically signed by Gee Lucero MD in OV> 11/15/241944 DD/ 43 TD/TT: 11/15/241943 [facility] Caretaker: Discharge Plan Discharge Clinical Impression: Hematuria, Chest pain, Hypertension Patient Disposition: Home, Self-Care Instructions: Hematuria (ED) Additional Instructions: It is very important that you follow up with urology for the blood in your urine. Your blood work and ultrasound was reassuring today Prescriptions: No Action quetiapine 25 mg tablet 1 tab PO BID PRN (Reason: anxiety) atorvastatin 10 mg tablet 1 tab PO DAILY polyvinyl alcohol [Artificial Tears (polyvin alc)] 1.4 % drops 1 drp ophthalmic (eye) TID ondansetron HCl 4 mg tablet 1 tab PO Q8H PRN (Reason: nausea) gabapentin 400 mg capsule 1 cap PO BEDTIME topiramate 25 mg tablet 1 tab PO BID clonidine HCl 0.2 mg tablet 1 tab PO BID PRN (Reason: panic attack) cyanocobalamin (vitamin B-12) 500 mcg tablet 1 tab PO DAILY ascorbic acid (vitamin C) 250 mg tablet 1 tab PO BID amlodipine 10 mg tablet 1 tab PO DAILY mirtazapine 30 mg tablet 1 tab PO BEDTIME mirtazapine 30 mg tablet 1 tab PO BEDTIME docusate sodium 100 mg capsule 1 - 2 cap PO BEDTIME PRN (Reason: constipation) gabapentin 100 mg capsule 1 cap PO TID PRN (Reason: anxiety) zolpidem 10 mg tablet 1 tab PO BEDTIME PRN (Reason: insomnia) albuterol sulfate [ProAir HFA] 90 mcg/actuation HFA aerosol inhaler 2 puff PO Q4-6H PRN (Reason: dyspnea) fluoxetine 20 mg capsule 3 cap PO QAM loratadine 10 mg tablet 1 tab PO DAILY loratadine 10 mg tablet 1 tab PO DAILY tramadol 50 mg tablet 50 mg PO Q8H PRN (Reason: pain) Qty: 3 0RF morphine 15 mg tablet 15 mg PO BID PRN (Reason: pain) Qty: 8 0RF cefuroxime axetil 250 mg tablet 250 mg PO BID 7 Days Qty: 14 0RF nitrofurantoin monohyd/m-cryst [Macrobid] 100 mg capsule 100 mg PO BID Qty: 14 0RF Rx Instructions: must administer with a meal/food phenazopyridine [Pyridium] 100 mg tablet 100 mg PO TID PRN (Reason: pain) Qty: 6 0RF sennosides [senna] 8.6 mg tablet 8.6 mg PO BEDTIME Qty: 14 0RF docusate sodium [Colace] 100 mg capsule 100 mg PO BID Qty: 20 0RF docusate sodium [Colace] 100 mg capsule 100 mg PO BID PRN (Reason: Constipation) Qty: 14 0RF ondansetron 4 mg tablet,disintegrating 4 mg PO Q6H Qty: 14 0RF nitrofurantoin monohyd/m-cryst [Macrobid] 100 mg capsule 100 mg PO BID 7 Days Qty: 14 0RF Rx Instructions: must administer with a meal/food cephalexin 500 mg capsule 500 mg PO Q8H 7 Days Qty: 21 0RF phenazopyridine [Pyridium] 200 mg tablet 200 mg PO TID PRN (Reason: pain) Qty: 6 0RF ondansetron 4 mg tablet,disintegrating 4 mg PO Q8H PRN (Reason: nausea and vomiting) Qty: 10 0RF cephalexin 500 mg capsule 500 mg PO BID Qty: 14 0RF ondansetron HCl 4 mg tablet 4 mg PO Q8H PRN (Reason: nausea and vomiting) Qty: 10 0RF tamsulosin [Flomax] 0.4 mg capsule 0.4 mg PO DAILY Qty: 6 0RF oxycodone 5 mg tablet 5 mg PO Q6H PRN (Reason: pain, moderate) Qty: 10 0RF Rx Instructions: Partial Fill upon patient request. ondansetron 4 mg tablet,disintegrating 4 mg PO Q8H PRN (Reason: nausea and vomiting) Qty: 10 0RF dicyclomine 10 mg capsule 10 mg PO BID Qty: 14 0RF cefuroxime axetil 250 mg tablet 250 mg PO BID 7 Days Qty: 14 0RF ondansetron 4 mg tablet,disintegrating 4 mg PO Q8H PRN (Reason: nausea and vomiting) Qty: 7 0RF tamsulosin [Flomax] 0.4 mg capsule 0.4 mg PO BEDTIME Qty: 14 0RF oxycodone 5 mg tablet 5 mg PO Q8H PRN (Reason: severe pain (scale score 7-10)) Qty: 9 0RF Rx Instructions: Partial Fill upon patient request. cefdinir 300 mg capsule 300 mg PO BID 5 Days Qty: 10 0RF acetaminophen [Tylenol] 325 mg capsule 650 mg PO Q6H PRN (Reason: pain) Qty: 30 0RF Print Language: Mongolian
== END 2024-11-15 20:15 | disposition home or self-care (01) ==
PROVIDERS: Physician Assistant; Emergency Provider Emergency Medicine; PCP Family Medicine
DX: R07.89 Other chest pain (principal); R31.9 Hematuria, unspecified; R10.2 Pelvic and perineal pain; R42 Dizziness and giddiness; M79.602 Pain in left arm; I10 Essential (primary) hypertension; R11.2 Nausea with vomiting, unspecified; Z79.899 Other long term (current) drug therapy; Z87.440 Personal history of urinary (tract) infections
CPT/HCPCS: 36415; 76775; 80048; 81001; 84484; 85025; 87086; 93005; 99284; 99285

== ENCOUNTER → 2024-11-15 18:07 | Outpatient (BNV) | payer MEDICAID, SELFPAY | PROVIDERS: Emergency Provider Emergency Medicine; PCP Family Medicine; Visit Provider Internal Medicine Cardiovascular Disease | DX: R07.9 Chest pain, unspecified (principal) | CPT/HCPCS: 93010 ==

== ENCOUNTER → 2024-11-15 18:49 | Outpatient (BNV) | payer MEDICAID, SELFPAY | PROVIDERS: PCP Family Medicine; Visit Provider Radiology Diagnostic Radiology | DX: N20.0 Calculus of kidney (principal) | CPT/HCPCS: 76775 ==

== ENCOUNTER 2024-11-18 08:40 | Outpatient (REF) | payer MEDICAID, SELFPAY ==
--- NOTE | ~2024-11-18 | XR_ITS ---
EXAMINATION: XR KNEE, LEFT CLINICAL INFORMATION: left knee pain, chronic. s/p TKR on right COMPARISON: None available. TECHNIQUE: Four views of the left knee. FINDINGS: Normal bone mineralization. No fracture, dislocation, or suspicious bone lesion. Normal alignment. Mild to moderate medial compartment osteoarthrosis with mild joint space narrowing and marginal osteophytic spurs. The lateral and patellofemoral compartment appear relatively preserved. There is spurring of the tibial spines. There is no joint effusion. Soft tissues appear normal. XR/XR knee LT 3V IMPRESSION: 1. No acute bony abnormalities. 2. Mild to moderate medial compartment osteoarthrosis. 3. No joint effusion. Electronically signed by: Eliezer Whyte MD 11/18/2024 09:23 AM EDT
--- OUTSIDE RECORDS SUMMARY | 2024-11-18 08:46 | XMS_ITS | Encounter Summary ---
Author Organization [employer] Address [address] [facility] 7t [place] [address] Care Team Providers Care Lamination Builder Name Role Phone Amber Quiroz MD Primary Care Provider [phone] Reason for Visit * Reason Onset Date Comments status of oral surgery appt 11/11/2024 Encounter Details Date Type Department Care Team ([facility] Contact Info) Description 11/11/2024 Telephone [facility] ADULT DENTAL [address] [place] [address] Francisco Mohan, DMD [address] [place], [place] status of oral surgery appt Social [...] the past 12 months, has t he [employer], [employer], oil or water company threatened to shut [...] Description 12/04/2024 2:00 PM EDT Clinical Support [facility] [address] [place] [address] documented as of this encounter Visit Diagnoses Not on filedocumented in this encounter Care Teams Lamination Builder Relationship Specialty Start Date End Date Amber Quiroz MD [address] [place] [address] PCP - General Family Medicine 07/03/18 documented as of this encounter
--- OUTSIDE RECORDS SUMMARY | 2024-11-18 08:46 | XMS_ITS | Encounter Summary ---
Author Organization [employer] Address [address] [facility] 7t [place] [address] Care Team Providers Care Negative Restorer Name Role Phone Amber Quiroz MD Primary Care Provider [phone] Reason for Visit * Reason Onset Date Comments Appointment Request 11/22/2023 Encounter Details Date Type Department Care Team ([facility] st Contact Info) Description 11/22/2023 Telephone [facility] MEDICINE [address] [place], [place] [phone] Amber Quiroz MD [address] [place], [place] [phone] Appointment Request Social History Tobacco Use Types [...] t he electric, gas, oil or water [employer] threatened to shut off services in your [...] due tosleep difficulty. Please contact pt at [phone]. documented in this encounter Plan of Treatment Upcoming Encounters Date Type Department Care Team (Late st Contact Info) Description 12/04/2024 2:00 PM EDT Clinical Support [facility] [address] [place] [address] documented as of this encounter Visit Diagnoses Not on filedocumented in this encounter Care Teams Negative Restorer Relationship Specialty Start Date End Date Amber Quiroz MD [address] [place] [address] PCP - General Family Medicine 07/03/18 documented as of this encounter
--- OUTSIDE RECORDS SUMMARY | 2024-11-18 08:46 | XMS_ITS | Encounter Summary ---
Author Organization [employer] Address [address] [facility] 7t [place] [address] Care Team Providers Care Nurse School Name Role Phone Amber Quiroz MD Primary Care Provider [phone] Reason for Visit * Reason Comments Med Refill Encounter Details Date Type Department Care Team ([facility] st Contact Info) Description 06/01/2023 Refill [facility] MEDICINE [address] [place], [place] [phone] Amber Quiroz MD [address] [place], [place] [phone] Pain Social History Tobacco Use Types Packs/Day [...] the past 12 months, has t he [employer], [employer], oil or water company threatened to shut [...] 2:00 PM EDT Clinical Support [facility] [address] [place] [address] documented as of this encounter Visit Diagnoses Diagnosis Pain Generalized pain documented in this encounter Care Teams Nurse School Relationship Specialty Start Date End Date Amber Quiroz MD [address] [place] [address] PCP - General Family Medicine 07/03/18 documented as of this encounter
--- OUTSIDE RECORDS SUMMARY | 2024-11-18 08:46 | XMS_ITS | Encounter Summary ---
Author Organization [employer] Address [address] 7t [place] [address] Care Team Providers Care Director Staffing Name Role Phone Amber Quiroz MD Primary Care Provider [phone] Encounter Details Date Type Department Care Team ([facility] st Contact Info) Description 12/12/2023 Orders Only [facility]ICINE [address] [place], [place] [phone] Amber Quiroz MD [address] [place], [place] [phone] Nephrolithiasis (Primary Dx) Social History Tobacco Use [...] Description 12/04/2024 2:00 PM EDT Clinical Support [facility] [address] [place] [address] documented as of this encounter Visit Diagnoses Diagnosis Nephrolithiasis- Primary Calculus of kidney documented in this encounter Care Teams Director Staffing Relationship Specialty Start Date End Date Amber Quiroz MD [address] [place] [address] PCP - General Family Medicine 07/03/18 documented as of this encounter
--- OUTSIDE RECORDS SUMMARY | 2024-11-18 08:46 | XMS_ITS | Encounter Summary ---
Author Organization [employer] Address [address] [facility] 7t [place] [address] Care Team Providers Care Cosmetic Manager Name Role Phone Amber Quiroz MD Primary Care Provider [phone] Encounter Details Date Type Department Care Team ([facility] st Contact Info) Description 09/04/2024 Orders Only [facility] MED[facility]INE [address] [place], [place] [phone] Amber Quiroz MD [address] [place], [place] [phone] Routine screening for STI (sexually transmitted infection) [...] the past 12 months, has t he [employer], oil or water company threatened to shut [...] Description 12/04/2024 2:00 PM EDT Clinical Support [facility] [address] [place] [phone] Scheduled Orders Name Type Priority Associated Diagnoses [...] disease documented in this encounter Care Teams Cosmetic Manager Relationship Specialty Start Date End Date Amber Quiroz MD [address] [place] [address] PCP - General Family Medicine 07/03/18 documented as of this encounter
--- OUTSIDE RECORDS SUMMARY | 2024-11-18 08:46 | XMS_ITS | Encounter Summary ---
Author Organization [employer] Address [address] 7[address] [place] [address] Care Team Providers Care Painting Worker Name Role Phone Amber Quiroz MD Primary Care Provider [phone] Encounter Details Date Type Department Care Team (Late st Contact Info) Description 11/15/2024 Orders Only [facility] External Provider, [facility] Social History Tobacco Use Types Packs/Day Years [...] Description 12/04/2024 2:00 PM EDT Clinical Support [address] [address] documented as of this encounter Procedures Procedure Name Priority Date/Time Associated Diagnosis Comments CULTURE, URINE, ROUTINE Routine 11/15/2024 8:26 PM EDT URINALYSIS, COMPLETE, WITH REFLEX TO CULTURE Routine 11/15/2024 7:57 PM EDT US RENAL BI Routine 11/15/2024 7:44 PM EDT documented in this encounter Results * Culture, Urine, Routine (11/15/2024 8:26 PM EDT) Urine Urine specimen obtained by clean catch procedure / Unknown 11/15/2024 8:26 PM EDT 11/15/2024 8:26 PM EDT Comment:[facility] Narrative [facility] - 11/17/2024 9:02 AM EDT Urine Culture Report Result Urine Culture 50,000 to 100,000 cfu/ml Urine Culture Mixed bacterial geovanny characteristic of Urine Culture urogenital contamination. Specimen Source: Urine clean catch us Generic External Data Provider LAB MICROBIOLOGY - GENERAL ORDERABLES Final Result [facility] [address] [place] [address] [phone] * (ABNORMAL) Urinalysis, Complete, with Reflex to Culture (11/15/2024 7:57 PM EDT) Color Urine [place](A) [facility] Appearance Urine Cloudy [facility] PH 6.5 5.0 - 9.0 [facility] Glucose Urine UA Negative Negative mg/dL [facility] Urine Blood Large (3+)(A) Negative [facility] Specific [place] - Urine 1.025 1.005 - 1.025 [facility] Urine Protein 30 (1+)(A) Neg-Trace mg/dL [facility] Urine Ketones Negative Negative mg/dL [facility] Nitrite Urine Negative Negative [facility] Leukocyte Esterase Urine Small (1+)(A) Negative [facility] RBC Urine >20(A) 0 - 2 /HPF [facility] Urine WBC 6-10(A) 0 - 5 /HPF [facility] Urine Squamous Epithelial Cell 11-20 0 - 2 /HPF [facility] Urine Bacteria 3+ None Seen [facility] Hyaline Casts, Urine 0-2 0 - 2 /LPF [facility] 11/15/2024 7:57 PM EDT 11/15/2024 8:00 PM EDT Narrative [facility] - 11/15/2024 8:17 PM EDT [id number], Clean Catch us Generic External Data Provider LAB URINE ORDERAB LES Final Result Performing Organization Address City/State/[facility] Co de Phone Number [facility] [address] [place] [address] [phone] * US RENAL BI (11/15/2024 7:44 PM EDT) Anatomical Region Laterality Modality Abdomen Ultrasound 11/15/2024 7:44 PM EDT Narrative 11/15/2024 7:46 PM EDT ? [facility] ?[address] [facility] [facility] ?[place] [address] ? Ultrasound Report ? Signed ? Patient: Marquez,Zelidez ?MR#: [id number] ?? [id number] ? : 1965 ?Acct:[id number] ? Age/Sex: 58 / F ?ADM Date: 05/16/25 ? Loc: HO.ED ? Attending Dr: ? Ordering Physician: Jonathan Burgos ?? Date of Service: 11/15/24 ?? Procedure(s): US renal BI ?? Accession Number(s): [id number] ? cc: Jonathan Burgos; Amber Quiroz MD ? CLINICAL HISTORY: bilat flank pain --- Additional Notes or Special Instructions: please evaluate for hydronephrosis ? US renal ? Comparison: 10/17/2024 ? Findings: ? Right kidney 9.9 cm length. ?? No significant focal abnormality. ?? 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 ? Left kidney 10.4 cm length. ?? No significant focal abnormality. ?? Small nonobstructing lower pole stone. ? No bilateral hydronephrosis. ?? Normal bilateral renal echogenicity. ? Impression: ? Small nonobstructing left renal stone ? Otherwise unremarkable ? This document has been electronically signed by: Gee Lucero MD on ?? 11/15/2024 19:44:29 ? Dictated By: ?Gee Lucero MD ? Signed By: ?<Electronically signed by Gee Lucero MD in OV> ? 11/15/245 ? DD/ 43 ? TD/TT: 11/15/241943 ? Auto Job Estimator: ? Procedure Note Nisha Biswas - 11/15/2024 [place] [address] Ultrasound Report Signed Patient: Heidi Marquez#: [id number] : 1965Acct:[id number] Age/Sex: 58 / FADM Date: 11/15/24 Loc: HO.ED Attending Dr: Ordering Physician: Jonathan Burgos Date of Service: 11/15/24 Procedure(s): US renal BI Accession Number(s): [id number] cc: Jonathan Burgos; Amber Quiroz MD CLINICAL HISTORY: bilat flank pain --- Additional Notes or SpecialInstructions: please evaluate for hydronephrosis US renal Comparison: 10/17/2024 Findings: Right kidney 9.9 cm length. No significant focal abnormality. 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 Left kidney 10.4 cm length. No significant focal abnormality. Small nonobstructing lower pole stone. No bilateral hydronephrosis. Normal bilateral renal echogenicity. Impression: Small nonobstructing left renal stone Otherwise unremarkable This document has been electronically signed by: Gee Lucero MD on 11/15/2024 19:44:29 Dictated By: Gee Lucero MD Signed By: <Electronically signed by Gee Lucero MD in OV> 11/15/241944 DD/ 43 TD/TT: 11/15/241943 Auto Job Estimator: [facility] External Provider IMG US PROCEDURES Final Result documented in this encounter Visit Diagnoses Not on filedocumented in this encounter Care Teams Painting Worker Relationship Specialty Start Date End Date Amber Quiroz MD [address] [place] [address] PCP - General Family Medicine 07/03/18 documented as of this encounter
--- OUTSIDE RECORDS SUMMARY | 2024-11-18 08:46 | XMS_ITS | Encounter Summary ---
Author Organization [facility] Address [address] [place] [address] Care Team Providers Care Agricultural Service Technician Name Role Phone Physician, No Pcp Primary Care Provider Unavaila ble Encounter Details Date Type Department Care Team (Late st Contact Info) Description 09/25/2024 Lab Requisition [facility] - Main Lab [address] [facility] [place] [address] Zachery Chi PA [address] [place] [address] Calculus of ureter Social History [...] LAB CHEMISTRY METHOD 09/25/2024 7:10 PM EDT [facility] Blood Venous blood specimen / Unknown 09/25/2024 3:15 PM EDT 09/25/2024 6:18 PM EDT us Zachery Chi PA LAB BLOOD ORDERABLES Final Res ult [facility] [address] [place] [address], documented in this encounter Visit Diagnoses Diagnosis Calculus of ureter documented in this encounter Care Teams Agricultural Service Technician Relationship Specialty Start Date End Date Physician, No Pcp PCP - General 08/21/24 documented as of this encounter
--- OUTSIDE RECORDS SUMMARY | 2024-11-18 08:46 | XMS_ITS | Encounter Summary ---
Author Organization [employer] Address [address] 7[address] [place] [address] Care Team Providers Care Systems Software Engineer Name Role Phone Amber Quiroz MD Primary Care Provider Encounter Details Date Type Department Care Team ([facility] st Contact Info) Description 11/24/2023 Telephone [facility] MED[facility]INE [address] [place], [place] [phone] Amber Quiroz MD [address] [place], [place] [phone] Social History Tobacco Use Types Packs/Day Years [...] Clinical Support [facility] [address] [place] [address] documented as of this encounter Visit Diagnoses Not on filedocumented in this encounter Care Teams Systems Software Engineer Relationship Specialty Start Date End Date Amber Quiroz MD [address] [place] [address] PCP - General Family Medicine 07/03/18 documented as of this encounter
--- OUTSIDE RECORDS SUMMARY | 2024-11-18 08:46 | XMS_ITS | Encounter Summary ---
Author Organization [employer] Address [address] [facility] 7 [place] [address] Care Team Providers Care Purler Name Role Phone Amber Quiroz MD Primary Care Provider [phone] Reason for Visit * Reason Comments Med Refill Encounter Details Date Type Department Care Team ([facility] st Contact Info) Description 11/29/2023 Refill [facility] MEDICINE [address] [place], [place] [phone] Charleen Latif MD [address] [place], [place] [phone] Nephrolithiasis Social History Tobacco Use Types Packs/Day [...] the past 12 months, has t he [employer], [employer], oil or water company threatened to shut [...] Description 12/04/2024 2:00 PM EDT Clinical Support [facility]ICINE [address] [place] [address] documented as of this encounter Visit Diagnoses Diagnosis Nephrolithiasis Calculus of kidney documented in this encounter Care Teams Purler Relationship Specialty Start Date End Date Amber Quiroz MD [address] [place] [address] PCP - General Family Medicine 07/03/18 documented as of this encounter
--- OUTSIDE RECORDS SUMMARY | 2024-11-18 08:46 | XMS_ITS | Encounter Summary ---
Author Organization [employer] Address [address] [facility] 7 [place] [address] Care Team Providers Care Hot Air Furnace Installer Repairer Name Role Phone Amber Quiroz MD Primary Care Provider [phone] Reason for Visit * Reason Onset Date Comments Care Management 11/05/2024 C3CM- initial as sessment/ enrollment. Encounter Details Date Type Department Care Team ([facility] st Contact Info) Description 11/05/2024 Telephone [facility] MEDICINE [address] [place], [place] [phone] Amber Quiroz MD [address] [place], [place] [phone] Care Management (C3CM- initial assessment/ enrollment.) Social [...] t he electric, gas, oil or water [employer] threatened to shut off services in your [...] and dental. She was recently seen by [facility] Optometry and states she was [...] is in the process of getting a PLASTICS DESIGN ENGINEER. She states she filled out [...] understanding, and able to repeat back to ad copy writer. A follow up call will be placed within 10 days, patient agrees with plan. documented in this encounter Plan of Treatment Upcoming Encounters Date Type Department Care Team (Late st Contact Info) Description 12/04/2024 2:00 PM EDT Clinical Support [facility] MEDICINE [address] [place] [address] documented as of this encounter Visit Diagnoses Not on filedocumented in this encounter Care Teams Hot Air Furnace Installer Repairer Relationship Specialty Start Date End Date Amber Quiroz MD [address] [place] [address] PCP - General Family Medicine 07/03/18 documented as of this encounter
--- OUTSIDE RECORDS SUMMARY | 2024-11-18 08:46 | XMS_ITS | Encounter Summary ---
Author Organization [employer] Address [address] [place] [address] Care Team Providers Care City Alderman Name Role Phone Amber Quiroz MD Primary Care Provider [phone] Reason for Visit * Reason Comments Med Refill Encounter Details Date Type Department Care Team (Late st Contact Info) Description 11/18/2024 Refill [facility]EDS [address] [place], [place] [phone] Amber Quiroz MD [address] [place], [place] [phone] Nephrolithiasis Social History Tobacco Use Types Packs/Day [...] Description 12/04/2024 2:00 PM EDT Clinical Support [facility]ICINE [address] [place] [address] documented as of this encounter Visit Diagnoses Diagnosis Nephrolithiasis Calculus of kidney documented in this encounter Care Teams City Alderman Relationship Specialty Start Date End Date Amber Quiroz MD [address] [place] [address] PCP - General Family Medicine 07/03/18 documented as of this encounter
--- OUTSIDE RECORDS SUMMARY | 2024-11-18 08:47 | XMS_ITS | Encounter Summary ---
Author Organization [employer] Address [address] [facility] 7t [place] [address] Care Team Providers Care Software Configuration Manager Name Role Phone Amber Quiroz MD Primary Care Provider [phone] Reason for Visit * Reason Onset Date Comments Med Refill 06/21/2024 Encounter Details Date Type Department Care Team ([facility] st Contact Info) Description 06/21/2024 Telephone [facility] MEDICINE [address] [place], [place] [phone] Amber Quiroz MD 230 [place], [place] [phone] Med Refill Social History Tobacco Use Types [...] extra strength with no relief. Please advise. TRUCK DRIVER TEAMSTER checked 06/21/24. Last refill of Oxycodone 5mg 11/30/23 qty 12. * Telephone Encounter - Gemma Oliveira - 06/21/2024 10:12 AM EST TC from pt requesting medication refill. Medications needing refill : oxyCODONE (Oxy-IR) 5 MG immediate release capsule To be sent to: [facility] - [place], [place] - [address] [facility] documented in this encounter Plan of Treatment Upcoming Encounters Date Type Department Care Team ([facility] st Contact Info) Description 12/04/2024 2:00 PM EDT Clinical Support [facility]INE [address] [place] [address] documented as of this encounter Visit Diagnoses Not on filedocumented in this encounter Care Teams Software Configuration Manager Relationship Specialty Start Date End Date Amber Quiroz MD [address] [place] [address] PCP - General Family Medicine 07/03/18 documented as of this encounter
--- OUTSIDE RECORDS SUMMARY | 2024-11-18 08:47 | XMS_ITS | Encounter Summary ---
Author Organization [employer] Address [address] [facility] 7 [place] [address] Care Team Providers Care Javascript Ui Developer Name Role Phone Amber Quiroz MD Primary Care Provider [phone] Encounter Details Date Type Department Care Team (Late st Contact Info) Description 12/12/2022 Orders Only [facility] MEDICINE [address] [place] [address] Anabell Martinez LPN Social History Tobacco Use [...] Description 12/04/2024 2:00 PM EDT Clinical Support [facility] [address] [place] [address] documented as of this encounter Visit Diagnoses Not on filedocumented in this encounter Care Teams Javascript Ui Developer Relationship Specialty Start Date End Date Amber Quiroz MD [address] [place] [address] PCP - General Family Medicine 07/03/18 documented as of this encounter
--- OUTSIDE RECORDS SUMMARY | 2024-11-18 08:47 | XMS_ITS | Encounter Summary ---
Author Organization [facility] [facility] Address [address] [facility] [address] [place] [address] Care Team Providers Care [employer] Name Role Phone Amber Quiroz MD Primary Care Provider [phone] Encounter Details Date Type Department Care Team (Late st Contact Info) Description 03/22/2023 Orders Only [facility] MEDICINE [address] [place] [phone] Amber Quiroz MD [address] [place] [phone] ASCUS of cervix with negative high risk [...] Description 12/04/2024 2:00 PM EDT Clinical Support [facility] MED[facility] [address] [place] [phone] documented as of this encounter Visit Diagnoses Diagnosis ASCUS of cervix with negative high risk HPV- Primary History of cervical dysplasia Personal history of cervical dysplasia documented in this encounter Care Teams [employer] Relationship Specialty Start Date End Date Amber Quiroz MD [address] [place] [phone] PCP - General Family Medicine 07/03/18 documented as of this encounter
--- OUTSIDE RECORDS SUMMARY | 2024-11-18 08:47 | XMS_ITS | Clinical Summary ---
Author Organization [employer] Address [address] [place] [address] 7[address] [place] [address] Care Team Providers Care Credit Authorizer Name Role Phone Amber Quiroz MD Primary Care Provider [phone] Allergies Active Allergy Reactions Criticality Noted Date [...] D EN LA MA RICKY 023 Active clonazePAM (KlonoPIN) 0.5 MG tablet [...] TWICE DAILY 60 each 5 025 Active Melatonin 10 MG capsule TOME [...] Monitor misc Check BP daily 1 each Active gabapentin (Neurontin) 100 MG capsule TOME BELINDA C PSULA TODOS LOS D EN LA MA RICKY 023 2024 Discontinued(D uplicate order (will not trigger notification to Pharmacy)) gabapentin (Neurontin) 400 MG capsule TOME BELINDA C PSULA TODOS LOS D AL ACOSTARSE 023 2024 Discontinued(D uplicate order (will not trigger notification to Pharmacy)) gabapentin (Neurontin) 300 MG capsule TAKE 1 CAPSULE BY MOUTH TWICE A DAY AM & AFTERNOON 2024 Discontinued(D uplicate order (will not trigger notification to Pharmacy)) albuterol [...] NEEDED FOR NAUSEA AND VOMITING 30 tablet 2024 Discontinued traMADol (Ultram) 50 MG tabletIndications :Nephrolithiasis Take 1 tablet (50 mg) by mouth every 8 (eight) hours if needed for severe pain. 15 tablet 2024 Discontinued amoxicillin (Amoxil) 500 MG capsule Take 1 capsule (500 mg) by mouth every 8 (eight) hours for 7 days. 21 capsule 2024 acetaminophen (Tylenol 8 Hour) 650 MG [...] Zofran prn Nephrolithiasis 07/27/2023 Assessment & Plan (11/17/2024 7:24 PM EDT): - Pt had multiple ED visits. Most recent CT scan was in 2024 - They found a very small kidney stone and a 1.3 cm cyst on her right kidney. - Pt was informed that she cannot take both oxycodone and tramadol. - Patient states she dislikes morphine or oxycodone, and now requesting codeine. When asked to return oxycodone which she picked up recently, she agreed so that she can get tramadol. Again, we states it is only for acute pain, not chronic. 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 Patient disagreed. Assessment & Plan (09/03/2024 8:50 PM EST): [...] 07/13/2016 Essential hypertension 09/16/2015 Assessment & Plan (11/17/2024 7:27 PM EDT): -Goal BP < 140/90 per [...] or clinic SBP > 140, will add telmesartan 20 mg daily or valsartan 40 mg [...] 10/22/2012 05/04/2023 Anemia 06/05/2012 Assessment & Plan (11/17/2024 7:22 PM EDT): - Last CBC was normal Assessment & Plan (11/30/2023 8:31 AM EDT): - Labs ordered - Counseled on increasing consumption of iron rich foods Gastroesophageal reflux disease 06/05/2012 Impaired fasting glucose 06/05/2012 Assessment & Plan (11/17/2024 7:25 PM EDT): - most recent A1C 5.6% - lifestyle modification Mood disorder 06/05/2012 Assessment & Plan (09/10/2024 [...] Encounters Date Type Department Care Team Description 11/18/2024 Refill [facility] MED & PEDS [address] [place] [address] Amber Quiroz MD Nephrolithiasis 11/15/2024 Orders Only [facility] External Provider, [facility] 11/15/2024 Telephone [facility] MEDICINE [address] [place] [address] Kian Sevilla, GuichoD 11/15/2024 Telephone [facility] MEDICINE [address] [place] [address] Amber Quiroz MD Care Management (C3CM- f/u call) 11/14/2024 Orders Only GENERIC EXTERNAL DATA DEPARTMENT Provider, Generic External Data 11/12/2024 1:30 PM EDT Office Visit [address] [address] Amber Quiroz MD Essential hypertension (Primary Dx); Nephrolithiasis; Chronic pain of left knee; Iron deficiency anemia, unspecified iron deficiency anemia type; Impaired fasting glucose 11/12/[address] [address] Amber Quiroz MD Moderate persistent asthma without complication 11/12/2024 Travel 11/11/2024 Orders Only GENERIC EXTERNAL DATA DEPARTMENT Provider, Generic External Data 11/11/[address] [address] Amber Quiroz MD CHART PREP 11/11/2024 Telephone [facility] ADULT DENTAL [address] [place] [address] Francisco Mohan DMD status of oral surgery appt 11/08/2024 Patient Outreach [address] [address] Amber Quiroz MD Care Coordination (PT1) 11/06/2024 Patient Outreach [address] [address] Roxanne Dsouza Care Coordination (SDOH) 11/05/[address] [address] Amber Quiroz MD Care Management (C3CM- initial assessment/ enrollment.) 11/04/2024 Patient Outreach [address] [address] Amber Quiroz MD Care Coordination (CM/CHW appt reminder) 11/04/2024 Patient Outreach [address] [phone] Amber Quiroz MD 11/04/2024 Patient Outreach [address] [address] Amber Quiroz MD 11/04/2024 Patient Outreach [address] [address] Amber Quiroz MD 11/02/2024 Orders Only GENERIC EXTERNAL DATA DEPARTMENT Provider, Generic External Data 11/01/2024 2:00 PM EDT Office Visit [facility] OPTOMETRY [address] [place] [address] Bernardo, Comfort, OD 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); White without pressure of peripheral retina of both eyes; Hyperopia of both eyes 11/01/2024 Travel 10/30/2024 Refill [facility] MEDICINE [address] [place] [address] Amber Quiroz MD Moderate persistent asthma without complication 10/30/[address] [address] Charleen Latif MD Nausea; Moderate persistent asthma without complication 10/30/2024 Refill [facility] MED & PEDS [address] [place] [address] Dilcia Henry ANP Nephrolithiasis 10/30/[address] [address] Amber Quiroz MD Med Refill 10/28/2024 Telephone [facility] MED & PEDS [address] [place] [address] Rachelle Lucero RN 10/25/2024 10:00 AM EDT Office Visit [facility] ADULT DENTAL [address] [place] [address] Boom Franklin, DDS Pain 10/24/2024 10:45 AM EDT Immunization [address] [address] Allison Montgomery RN Encounter for immunization 10/24/[address] [address] Amber Quiroz MD 10/18/2024 Refill [facility] MED & PEDS [address] [place] [address] Rachelle Lucero RN Nephrolithiasis 10/18/[address] [address] Amber Quiroz MD Social Security Form (I [...] 10/17/2024 Telephone [facility] MEDICINE [address] [place] [address] Cheryl Larkin RN Sent to ED from Office 10/16/2024 Telephone [facility] MEDICINE [address] [place] [address] Amber Quiroz MD Chart Prep 10/15/[address] [address] Amber Quiroz MD Nurse Triage 10/11/2024 Patient Outreach [address] [address] Amber Quiroz MD Care Coordination (CM/CHW outreach) 10/11/2024 Patient Outreach [facility] MEDICINE [address] [place] [address] Amber Quiroz MD Care Coordination (CM/CHW outreach) 10/08/2024 Refill [facility] MED & PEDS [address] [place] [address] Rachelle Lucero RN Nephrolithiasis 10/08/2024 Telephone [facility] MED & PEDS [address] [place], [place] [phone] Amber Quiroz MD 10/07/2024 Refill [facility] MEDICINE [address] [place] [address] Amber Quiroz MD Nausea 10/02/2024 Telephone [facility] MEDICINE [address] [place] [address] 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, systems testing laboratory technician Question 10/01/2024 11:30 AM EDT Telemedicine [facility] MEDICINE [address] [place] [address] 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 RN Essential hypertension 10/01/2024 Travel 10/01/2024 Telephone [facility] MEDICINE [address] [place] [address] Amber Quiroz MD 09/26/2024 Telephone [facility] [place] [address] Amber Quiroz MD Nurse Triage 09/25/2024 Refill [facility] [place] [address] Amber Quiroz MD Moderate persistent asthma without complication 09/25/2024 Telephone [facility] [place] [address] Amber Quiroz MD Care Management ([facility]- initial assessment/ enrollment #2. lvm) 09/24/2024 Patient Outreach [facility] [address] Amber Quiroz MD Care Coordination (CM/CHW appt reminder) 09/20/2024 Refill [facility] [place] [address] Amber Quiroz MD Nephrolithiasis 09/13/2024 Population Health Risk Score [facility] () Department [address] [place] [phone] Provider, Population Health Generic 09/05/2024 Telephone [facility] [place] [address] 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 RN Results 09/04/2024 Orders Only [facility] [place] [address] Amber Quiroz MD Routine screening for STI (sexually transmitted infection) (Primary Dx) 09/04/2024 Patient Outreach [facility] [place] [address] Amber Quiroz MD Care Coordination (CM/CHW outreach) 09/04/2024 Refill [facility] [place] [address] Amber Quiroz MD 09/03/2024 3:00 PM EST Office Visit [facility] [place] [address] Amber Quiroz MD Loin pain hematuria syndrome (Primary Dx); Essential hypertension; Kidney stones; Nephrolithiasis; Mood disorder (CMS/[facility]); Dyslipidemia; Encounter for immunization; Dietary counseling; Exercise counseling; Overweight; Panic disorder without agoraphobia; Anxiety; Iron deficiency anemia, unspecified iron deficiency anemia type 09/03/2024 Telephone [facility] MEDICINE [address] [place] [address] Amber Quiroz MD Appointment Request 09/03/2024 Travel 08/29/2024 Refill [facility] MED[facility] [address] [place] [address] Amber Quiroz MD 08/28/[address] [address] Shellie Eric MA chart prep 08/28/2024 Patient Outreach [address] [phone] Amber Quiroz MD Care Coordination (CM/CHW outreach) 08/26/[address] [phone] Amber Quiroz MD Nurse Triage 08/25/2024 Refill [facility] MED & PEDS [address] [place], [place] [phone] Amber Quiroz MD Pain 08/21/[address] [phone] Amber Quiroz MD Nurse Triage from Last [...] Description 12/04/2024 2:00 PM EDT Clinical Support [address] [phone] Health Maintenance Due Date Last Done Comments [...] RENAL BI Routine 11/15/2024 7:44 PM EDT XR CHEST 1 VIEW Routine 11/14/2024 7:54 [...] Recently Relevant to Health Maintenance Results * Culture, Urine, Routine (11/15/2024 8:26 PM EDT) Urine Urine specimen obtained by clean catch procedure / Unknown 11/15/2024 8:26 PM EDT 11/15/2024 8:26 PM EDT Comment:[facility] - 11/17/2024 9:02 AM EDT Urine Culture Report Result Urine Culture 50,000 to 100,000 cfu/ml Urine Culture Mixed bacterial geovanny characteristic of Urine Culture urogenital contamination. Specimen Source: Urine clean catch us Generic External Data Provider LAB MICROBIOLOGY - GENERAL ORDERABLES Final Result [facility] [address] [place] [phone] * (ABNORMAL) Urinalysis, Complete, with Reflex to Culture (11/15/2024 7:57 PM EDT) Only the most recent of3 resultswithin the time period is included. Color Urine [place](A) [facility] Appearance Urine Cloudy [facility] PH 6.5 5.0 - 9.0 [facility] Glucose Urine UA Negative Negative mg/dL [facility] Urine Blood Large (3+)(A) Negative [facility] Specific [place] - Urine 1.025 1.005 - 1.025 [facility] Urine Protein 30 (1+)(A) Neg-Trace mg/dL [facility] Urine Ketones Negative Negative mg/dL [facility] Nitrite Urine Negative Negative [facility] Leukocyte Esterase Urine Small (1+)(A) Negative [facility] RBC Urine >20(A) 0 - 2 /HPF [facility] Urine WBC 6-10(A) 0 - 5 /HPF [facility] Urine Squamous Epithelial Cell 11-20 0 - 2 /HPF [facility] Urine Bacteria 3+ None Seen [facility] Hyaline Casts, Urine 0-2 0 - 2 /LPF [facility] 11/15/2024 7:57 PM EDT 11/15/2024 8:00 PM EDT Narrative [facility] - 11/15/2024 8:17 PM EDT [id number], Clean Catch us Generic External Data Provider LAB URINE ORDERAB LES Final Result Performing Organization Address City/State/[facility] Co de Phone Number [facility] [address] [place] [phone] * US RENAL BI (11/15/2024 7:44 PM EDT) Anatomical Region Laterality Modality Abdomen Ultrasound 11/15/2024 7:44 PM EDT Narrative 11/15/2024 7:46 PM EDT ? [facility] ?[address] ?[place] [address] ? Ultrasound Report ? Signed ? Patient: Marquez,Zelidez ?MR#: [id number] ?? 760 ? : 1965 ?Acct:[id number] ? Age/Sex: 58 / F ?ADM Date: 05/16/25 ? Loc: HO.ED ? Attending Dr: ? Ordering Physician: Jonathan Burgos ?? Date of Service: 11/15/24 ?? Procedure(s): US renal BI ?? Accession Number(s): [id number] ? cc: Jonathan Burgos; Amber Quiroz MD [...] ? DD/ 43 ? TD/TT: 11/15/241943 ? Time Lock Expert: ? Procedure Note Nisha Biswas - 11/15/2024 [place] [address] Ultrasound Report Signed Patient: John MarquezMR#: [id number] 760 : 1965Acct:[id number] Age/Sex: 58 / FADM Date: 11/15/24 Loc: HO.ED Attending Dr: Ordering Physician: Jonathan Burgos Date of Service: 11/15/24 Procedure(s): US renal BI Accession Number(s): [id number] cc: Jonathan Burgos; Amber Quiroz MD CLINICAL [...] in OV> 11/15/241944 DD/ 43 TD/TT: 11/15/241943 Time Lock Expert: us [facility] External Provider IMG US PROCEDURES Final Result * XR Chest 1 View (11/14/2024 7:54 AM EDT) Anatomical Region Laterality Modality Chest Radiographic Shy ging 11/14/2024 7:54 AM EDT Narrative 11/14/2024 8:16 AM EDT ? [facility] ?[address] ?[place] [address] ?XRay Report ? Signed ? Patient: John Marquez ?MR#: [id number] ?? 760 ? : 1965 ?Acct:[id number] ? Age/Sex: 58 / F ?ADM Date: 11/14/24 ? Loc: HO.ED ? Attending Dr: ? Ordering Physician: Bobby Ham MD ?? Date of Service: 11/14/24 ?? Procedure(s): XR chest 1V ?? Accession Number(s): [id number] ? cc: Bobby Ham MD; Amber Quiroz [...] ??Misha Curtis MD ??11/14/2024 08:14 AM EDT ?? RP ? Dictated By: ?Misha Curtis MD ? Signed By: ?<Electronically signed by Misha Curtis MD in OV> ?11/14/24 0814 ? DD/ 0754 ? TD/TT: 11/14/24 0800 ? Time Lock Expert: ? Procedure Note Donrakel, Image - 11/14/[address] [address] XRay Report Signed Patient: John MarquezMR#: [id number] 760 : 1965Acct:[id number] Age/Sex: 58 / FADM Date: 11/14/24 Loc: HO.ED Attending Dr: Ordering Physician: Bobby Ham MD Date of Service: 11/14/24 Procedure(s): XR chest 1V Accession Number(s): [id number] cc: Bobby Ham MD; Amber Quiroz MD [...] signed by Misha Curtis MD in OV> 11/14/24813 DD/ 3 TD/TT: 11/14/24 08 Time Lock Expert: [facility] External Provider IMG XR PROCEDURES Final Result * D Dimer High Sensitivity (11/14/2024 7:49 AM EDT) D Dimer High Sensitivity 231 NG/ML [facility] Comment:D-DIMER HS REFERENCE RANGENote: Our [...] ORDERAB LES Final Result Performing Organization Address [facility] [address]/[facility] de Phone Number [facility] [address] [place] [phone] * High Sensitivity Troponin I (11/14/2024 7:49 AM EDT) Only the most recent of2 resultswithin the time period is included. [facility] TROPONIN I HIGH SENSITIVITY <2.7 <3.5 - 17.0 ng/L [facility] Comment:The [place] high sens itivity Troponin-I results should beused in conjunction with other diagnostic information suchas ECG, clinical observations and information, and patientsymptoms to aid in the diagnosis of SC. 11/14/2024 7:49 AM EDT 11/14/2024 7:51 AM EDT Generic External Data Provider LAB BLOOD ORDERAB LES Final Result Performing Organization Address [facility] [address]/[facility] Co de Phone Number [facility] [address] [place] [phone] * CBC auto differential (11/14/2024 5:36 AM EDT) Only the most recent of2 resultswithin the time period is included. [facility] White Blood Count 5.3 4.8 - 10.8 X10*3/uL [facility] Red Blood Count 4.52 4.20 - 5.50 X10*6/uL [facility] Hemoglobin 12.4 12.0 - 16.0 g/dl [facility] Hematocrit 37.7 37.0 - 47.0 % [facility] Mean Corpuscular Volume 83.4 80.0 - 98.0 fL [facility] Mean Corpuscular Hemoglobin 27.4 27.0 - 33.0 pg [facility] Mean Corpuscular HGB Conc 32.9 31.0 - 35.0 g/dl [facility] Red Cell Distribution Width 15.2 11.0 - 16.0 % [facility] Platelet Count 270 160 - 400 X10*3/uL [facility] Mean Platelet Volume 9.5 9.4 - 12.3 fL [facility] Neutrophils Percent Auto 57.0 45 - 73 % [facility] Imm Gran Pct Auto 0.0 0.0 - 0.4 % [facility] Lymphocytes Percent Auto 32.8 20 - 40 % [facility] Monocytes Percent Auto 7.9 2 - 11 % [facility] Eosinophils Percent Auto 2.1 0 - 4 % [facility] Basophils Percent Auto 0.2 0 - 2 % [facility] NRBC Pct Auto 0.0 0.0 - 0.2 /100WBC [facility] Neutrophils Absolute Auto 3.1 2.0 - 8.3 x10*3/uL [facility] Imm Gran Abs Auto 0.00 0.00 - 0.03 X10*3/uL [facility] Lymphocytes Absolute Auto 1.8 1.2 - 4.9 X10*3/uL [facility] Monocytes Absolute Auto 0.4 0.1 - 1.2 X10*3/uL [facility] Eosinophils Absolute Auto 0.1 0.0 - 0.4 X10*3/uL [facility] Basophils Absolute Auto 0.0 0.0 - 0.2 X10*3/uL [facility] NRBC Abs Auto 0.000 0.0 - 0.012 X10*3/uL [facility] 11/14/2024 5:36 AM EDT 11/14/2024 5:40 AM EDT us Generic External Data Provider LAB BLOOD ORDERAB LES Final Result [facility] [address] [place] [address] [phone] * (ABNORMAL) Comprehensive Metabolic Panel (11/14/2024 5:36 AM EDT) Only the most recent of2 resultswithin the time period is included. Sodium 143 135 - 145 mmol/L [facility] Potassium 3.8 3.3 - 5.1 mmol/L [facility] Chloride 110(H) 96 - 108 mmol/L [facility] Carbon Dioxide 23 22 - 29 mmol/L [facility] Anion Gap 14 12 - 20 [facility] Urea Nitrogen (BUN) 16 9 - 16 mg/dL [facility] Creatinine, Serum 0.64 0.5 - 1.4 mg/dL [facility] Creatinine Clr Calc Pharmacy 66.7 [facility] Comment:Provided height and weight: 154.94 cm,44.7 kg.eGFR (calculated from the MDRD study equation) and eCrCl(calculated from the Cockcroft-Gault equation) are based ondifferent parameters and may not yield comparable results.If eCrCl result is absurd, please check patient'sheight/weight. Estimated Glomerular Filt Rate >60 [facility] Comment:Chronic Kidney Disea se: Estimated GFR < 60 mL/min/[id number] Kidney Disease: Estimated GFR < 15 mL/min/1.73m2 Glucose 97 60 - 115 mg/dL [facility] Calcium 9.3 8.4 - 10.2 mg/dL [facility] Bilirubin, Total 0.3 0.0 - 1.0 mg/dL [facility] Aspartate Amino Transferase 44(H) 5 - 31 U/L [facility] Alanine Aminotransferase 37(H) 0 - 31 U/L [facility] Total Protein 7.5 6.5 - 8.0 g/dL [facility] Albumin Level 4.4 3.5 - 5.0 g/dL [facility] Alkaline Phosphatase 107 39 - 117 U/L [facility] 11/14/2024 5:36 AM EDT 11/14/2024 5:40 AM EDT us Generic External Data Provider LAB BLOOD ORDERAB LES Final Result [facility] [address] [place] [address] [phone] * CT Abdomen Pelvis w/o Contrast (11/11/2024 11:14 AM EDT) Only the most recent of2 resultswithin the time period is included. Anatomical Region Laterality Modality Body, Pelvis, Abdomen Computed T omography 11/11/2024 11:1 4 AM EDT Narrative 11/11/2024 11:55 AM EDT ? [facility] ?[address] ?[place] [address] ? CT Scan Report ? Signed ? Patient: John Marquez ?MR#: [id number] ?? 760 ? : 1965 ?Acct:[id number] ? Age/Sex: 58 / F ?ADM Date: 11/11/24 ? Loc: HO.ED ? Attending Dr: ? Ordering Physician: Felix Malik DO ?? Date of Service: 11/11/24 ?? Procedure(s): CT abdomen pelvis wo IV con ?? Accession Number(s): [id number] ? cc: Felix Malik DO; Amber Quiroz MD ? Report Number: ?? [id number]: Total DLP = ??447.00 mGy-cm ?? EXAMINATION: [...] DD/ 1114 ? TD/TT: 11/11/24 1139 ? Time Lock Expert: ? Procedure Note Nisha Biswas - 11/11/[address] [place] [address] [address] Scan Report Signed Patient: John MarquezMR#: [id number] 760 : 1965Acct:[id number] Age/Sex: 58 / FADM Date: 11/11/24 Loc: .ED Attending Dr: Ordering Physician: Felix Malik DO Date of Service: 11/11/24 Procedure(s): CT abdomen pelvis wo IV con Accession Number(s): [id number] cc: Felix Malik DO; Amber Quiroz MD Report Number: [id number]: Total DLP = 447.00 mGy-cm EXAMINATION: CT [...] 11/11/24 1152 DD/ 1114 TD/TT: 11/11/24 1139 Time Lock Expert: Result [facility] External Provider IMG CT PROCEDURES Final Result * Referral to Urology (09/25/2024) Result [facility] Amber Quiroz MD OUTPATIENT REFERRAL ORDERABLES F inal Result * Pathologist Review - CBC (09/03/2024 4:26 PM EST) Pathologist Review - CBC SEE NOTE [facility] Comment:Normochromic normocy tic anemia; white blood cells are mildlydecreased in number, but otherwise normal appearing.- Ray Viera M.D. Pathology Blood Venous blood specimen / Unknown 09/03/2024 4:26 PM EST 09/03/2024 6:14 PM EST Result [facility] Amber Quiroz MD LAB BLOOD ORDERABLES Final Resul t Performing Organization Address City/State/[facility] Co de Phone Number [facility] [address] [place] [phone] * Vitamin B12/Folate, Serum Panel (09/03/2024 4:26 PM EST) Vitamin B12 247 200 - 900 pg/mL [facility] Comment:NORMAL 200-900 PG/ML INDETERMINATE 160-199 PG/ML DEFICIENT < 160 PG/ML Folate 9.9 > or = 4.0 ng/mL [facility] Comment:Reference Values:> o r = 4.0 ng/mL< 4.0 ng/mL suggests folate deficiency Methotrexate, aminopterin and folinic acid(leucovorin) are chemotherapeutic agents whose molecularstructures are similar to folate; therefore, the Architectfolate assay cannot be used for patients using these drugs. 09/03/2024 4:26 PM EST 09/03/2024 6:14 PM EST Result [facility] Amber Quiroz MD LAB BLOOD ORDERABLES Final Resul t [facility] [address] [place] [phone] * TSH with Reflex to Free T4 (09/03/2024 4:26 PM EST) TSH reflex Free T4 1.08 0.32 - 4.0 uIU/mL [facility] Blood 09/03/2024 4:26 PM EST 09/03/2024 6:14 PM EST Amber Quiroz MD LAB BLOOD ORDERABLES Final Resul t Performing Organization Address [facility] [address]/[facility] Co de Phone Number [facility] [address] [place] [phone] * (ABNORMAL) Lipid Panel with Reflex to Direct LDL (09/03/2024 4:26 PM EST) Triglycerides 112 <150 mg/dL [facility] Comment:Desirable Triglyceri de: less than 150 mg/dLBorderline High Triglyceride 150-199 mg/dLHigh Triglyceride: 200-499 mg/dLVery High Triglyceride: greater than or equal to 5OO mg/dL Cholesterol 183 <200 mg/dL [facility] Comment:Desirable Cholestero l: less than 200 mg/dLBorderline High Cholesterol: 200-239 mg/dLHigh Cholesterol: greater than 239 mg/dL LDL Cholesterol Calculated 112(H) <100 mg/dL [facility] Comment:Desirable LDL: less than 100 mg/dLNear Optimal/Above Optimal LDL: 110- 129 mg/dLBorderline High LDL: 130-159 mg/dLHigh LDL: 160-189 mg/dLVery High LDL: greater than or equal to 190 mg/dL HDL Cholesterol 49 >40 mg/dL [facility] Comment:Desirable HDL: great er than 40 mg/dL Note: This HDL assay may give artificially low results in patients with liver disease. Blood 09/03/2024 4:26 PM EST 09/03/2024 6:14 PM EST Amber Quiroz MD LAB BLOOD ORDERABLES Final Resul t Performing Organization Address [facility] [address]/ZIP Co de Phone Number [facility] [address] [place] [phone] * Iron And Total Iron Binding Capacity (09/03/2024 4:26 PM EST) Iron 69 30 - 160 mcg/dL [facility] Comment:Slight Hemolysis.Int erpret result with caution. Total Iron Binding Capacity 250 228 - 428 mcg/dL [facility] Percent Iron Saturation 28 15 - 50 % [facility] Unsaturated Iron Binding 181 ug/dL [facility] Blood Venous blood specimen / Unknown 09/03/2024 4:26 PM EST 09/03/2024 6:14 PM EST Amber Quiroz MD LAB BLOOD ORDERABLES Final Resul t Performing Organization Address [facility] [address]/[facility] de Phone Number [facility] [address] [place] [phone] * Hemoglobin A1c (09/03/2024 4:26 PM EST) Hemoglobin A1c 5.6 <6.0 % [facility] Comment:Hemoglobin A1C Refer ence Range Adults: 4.8 - 6.0 % Non diabetic: < 6.0 % Goal: < 7.0 %Additional Action Suggested: > 8.0 %Note: Hemoglobin A1c results are invalid for patients with abnormal amounts of HbF. Blood transfusions may impact the HbA1c concentration in the patient sample. Estimated Average Glucose 114 mg/dL [facility] Comment:eAG = Estimated ave rage glucose which is %A1C expressed asaverage glucose, using the formula of the G6K-FcerwpoFhvyfms Glucose study (ADAG), Diabetes Care, Vol.31,#8,Jan. 2007 Blood Venous blood specimen / Unknown 09/03/2024 4:26 PM EST 09/03/2024 6:14 PM EST Amber Quiroz MD LAB BLOOD ORDERABLES Final Resul t Performing Organization Address City/[facility] [address]/ZIP Co de Phone Number [facility] [address] [place] [address] [phone] * Ferritin (09/03/2024 4:26 PM EST) Ferritin 51 10 - 250 ng/mL [facility] Blood Venous blood specimen / Unknown 09/03/2024 4:26 PM EST 09/03/2024 6:14 PM EST us Amber Quiroz MD LAB BLOOD ORDERABLES Final Resul t Performing Organization Address [facility] [address]/[facility] Co de Phone Number [facility] [address] [place] [address] [phone] * (ABNORMAL) THINPREP TIS PAP AND HPV mRNA E6/E7 WITH REFLEX TO HPV 16,18/45 (07/30/2021 10:17 AM EST) Clinical Information: PM BLEEDING [facility] COMMENT SEE COMMENT FOUNDAT[facility] ON [...] has been evaluated with computer assisted technology. [facility] [place]: SEE COMMENT [facility] Comment: [facility], CT(ASCP) CT screening location: [address] ??[phone] General Categorization: EPITHELIAL CELL ABNORMALITY(A ) [facility] HPV nRNA E6/E7 Not Detected Not Detected [facility] Comment: Methodology: Act English Tutor-Mediated Amplification This assay detects E6/E7 viral messenger RNA (mRNA) from 14 high-risk HPV types (16,18,31,33,35,39,45,51,52,56,58,59,66,68). ? The analytical performance characteristics of this assay have been determined by [facility]. The modifications have not been cleared or approved by the FDA. This assay has been validated pursuant to the CLIA regulations and is used for clinical purposes. ?? For additional information, please refer to http://education.Tizaro/faq/CCE122r5 (This link if provided for information/ educational purposes only.) Infection Shift in vaginal geovanny suggestive of bacterial vaginosis. 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 LMP: NONE GIVEN [facility] PATHOLOGIST: SEE COMMENT [facility] Comment: Jennifer Branch M.D., Board Certified in Anatomic and Clinical Pathology (electronic signature) Consulting Pathologist [facility] [phone] Prev. BX: NONE GIVEN [facility] Prev. PAP: NONE GIVEN [facility]OUND[facility] ON LAB SYSTEM SOURCE: None given [facility] Statement Of Adequacy: SEE COMMENT [facility] Comment: Satisfactory for evaluation. Endocervical/transformation zone component present. 07/30/2021 10:1 7 AM EST us Saleem Maier MD LAB PATHOLOGY ORDERABLES Final R esult [facility] [address] from Last 3 Months or Most Recently Relevant to Health Maintenance Insurance [facility] STANDARD DENTAL-[facility] MEDICAID STAND ADULT Care Teams Credit Authorizer Relationship Specialty Start Date End Date Amber Quiroz MD [address] [place] [phone] PCP - General Family Medicine 07/03/18
--- OUTSIDE RECORDS SUMMARY | 2024-11-18 08:47 | XMS_ITS | Encounter Summary ---
Author Organization [employer] Address [address] [facility] 7t [place] [address] Care Team Providers Care Cremator Name Role Phone Amber Quiroz MD Primary Care Provider [phone] Encounter Details Date Type Department Care Team (Late st Contact Info) Description 11/16/2022 Abstract [facility] [address] [place], [place] [phone] Amber Quiroz MD [address] [place] [address] Social History Tobacco Use Types Packs/Day Years [...] 12/04/2024 2:00 PM EDT Clinical Support [facility] [address] [place], [place] [phone] documented as of this encounter Visit Diagnoses Not on filedocumented in this encounter Care Teams Cremator Relationship Specialty Start Date End Date Amber Quiroz MD [address] [place] [address] PCP - General Family Medicine 07/03/18 documented as of this encounter
--- OUTSIDE RECORDS SUMMARY | 2024-11-18 08:47 | XMS_ITS | Encounter Summary ---
Author Organization [employer] Address [address] [facility] [address] 7t [place] [address] Care Team Providers Care Recreational Programs Director Name Role Phone Amber Quiroz MD Primary Care Provider [phone] Encounter Details Date Type Department Care Team ([facility] st Contact Info) Description 11/15/2024 Telephone [facility] [address] [place], [place] [phone] Kian Sevilla, PharmD [address] [place], [place] [phone] Social History Tobacco Use Types Packs/Day Years [...] Description 12/04/2024 2:00 PM EDT Clinical Support [facility] [address] [place] [address] documented as of this encounter Visit Diagnoses Not on filedocumented in this encounter Care Teams Recreational Programs Director Relationship Specialty Start Date End Date Amber Quiroz MD [address] [place] [address] PCP - General Family Medicine 07/03/18 documented as of this encounter
--- OUTSIDE RECORDS SUMMARY | 2024-11-18 08:47 | XMS_ITS | Encounter Summary ---
Author Organization [employer] Address [address] [facility] 7t [place] [address] Care Team Providers Care Wire Communications Engineer Name Role Phone Amber Quiroz MD Primary Care Provider [phone] Reason for Visit * Reason Onset Date Comments Nurse Triage 01/11/2024 Encounter Details Date Type Department Care Team ([facility] st Contact Info) Description 01/11/2024 Telephone [facility] [address] [place], [place] [phone] Abmer Quiroz MD [address] [place], [place] [phone] Nurse Triage Social History Tobacco Use Types [...] HDF appt tomorrow at 1030am with García [employer] PROCESSOR. RX updated with pending HDF. Team tasked that if medication available from PCP for overnight [facility] * Telephone Encounter - Lacy Sahni LPN - 01/11/2024 3:31 PM EDT Triage in process. Patient requesting pain medication for kidney stone pain in [facility] 01/07/24-01/08/24. Patient not seeing any stones [...] worse Override Notes: Seen and treated at [facility] known kidney stones wants something for [...] Description 12/04/2024 2:00 PM EDT Clinical Support [facility] [address] [place] [address] documented as of this encounter Visit Diagnoses Not on filedocumented in this encounter Care Teams Wire Communications Engineer Relationship Specialty Start Date End Date Amber Quiroz MD [address] [place] [phone] PCP - General Family Medicine 07/03/18 documented as of this encounter
--- OUTSIDE RECORDS SUMMARY | 2024-11-18 08:47 | XMS_ITS | Encounter Summary ---
Author Organization [employer] Address [address] [facility] 7t [place] [address] Care Team Providers Care Network Design Architect Name Role Phone Amber Quiroz MD Primary Care Provider [phone] Reason for Visit * Reason Comments Med Refill Encounter Details Date Type Department Care Team ([facility] st Contact Info) Description 11/12/2024 Refill [facility] [address] [place], [place] [phone] Amber Quiroz MD [address] [place], [place] [phone] Moderate persistent asthma without complication Social History [...] Description 12/04/2024 2:00 PM EDT Clinical Support [facility] [address] [place] [address] documented as of this encounter Visit Diagnoses Diagnosis Moderate persistent asthma without complication documented in this encounter Care Teams Network Design Architect Relationship Specialty Start Date End Date Amber Quiroz MD [address] [place] [address] PCP - General Family Medicine 07/03/18 documented as of this encounter
--- OUTSIDE RECORDS SUMMARY | 2024-11-18 08:47 | XMS_ITS | Encounter Summary ---
Author Organization [employer] Address [address] [facility] 7t [place] [address] Care Team Providers Care Payroll Assistant Name Role Phone Amber Quiroz MD Primary Care Provider [phone] Reason for Visit * Reason Onset Date Comments Care Management 11/15/2024 C3CM- f/u call Encounter Details Date Type Department Care Team (Late st Contact Info) Description 11/15/2024 Telephone [facility] [address] [place], [place] [phone] Amber Quiroz MD [address] [place], [place] [phone] Care Management (C3CM- f/u call) Social History [...] t he electric, gas, oil or water [employer] threatened to shut off services in your [...] last call with CM. Patient seen at [facility] 11/14 for eval of CP. Patient [...] provided on [facility] located in [facility]. Patient provided with after-hours line for [facility], , which offer night time triage service and option to transfer to transportation coordinator provider if needed. Patient verbalizes understanding, and able to repeat back to selling underwriter. A follow up call will be placed [...] 12/04/2024 2:00 PM EDT Clinical Support [facility] [address] [place] [address] documented as of this encounter Visit Diagnoses Not on filedocumented in this encounter Care Teams Payroll Assistant Relationship Specialty Start Date End Date Amber Quiroz MD [address] [place] [address] PCP - General Family Medicine 07/03/18 documented as of this encounter
--- OUTSIDE RECORDS SUMMARY | 2024-11-18 08:47 | XMS_ITS | Encounter Summary ---
Author Organization [employer] Address [address] [facility] 7 [place] [address] Care Team Providers Care Sew Out Operator Name Role Phone Amber Quiroz MD Primary Care Provider [phone] Reason for Visit * Reason Comments Med Refill Encounter Details Date Type Department Care Team (Late st Contact Info) Description 04/26/2023 Refill [facility] [address] [place] [address] [phone] Alan Partida MD [address] [place] [phone] Moderate persistent asthma without complication; Nausea Social [...] Description 12/04/2024 2:00 PM EDT Clinical Support [facility] [address] [place] [address] [phone] documented as of this encounter Visit Diagnoses Diagnosis Moderate persistent asthma without complication Nausea Nausea alone documented in this encounter Care Teams Sew Out Operator Relationship Specialty Start Date End Date Amber Quiroz MD [address] [place] [address] [phone] PCP - General Family Medicine 07/03/18 documented as of this encounter
--- OUTSIDE RECORDS SUMMARY | 2024-11-18 08:47 | XMS_ITS | Clinical Summary ---
Author Organization [facility] Address [address] [place] [address] Phone Care Team Providers Care District Branch Manager Name Role Phone Physician, No Pcp Primary Care Provider Unavaila ble Allergies Active Allergy Reactions Criticality Noted Date Comments Aspirin Congestion of the throat 08/21/2024 Ibuprofen Swallowing Problem 08/21/2024 Acetaminophen Swallowing Problem 08/21/2024 Medications No known medications Active Problems No known active problems Encounters Date Type Department Care Team Description 09/25/[address] [facility] [address] [facility] [place] [address] Zachery Chi PA Calculus of ureter 08/21/2024 3:41 PM EST - 08/21/2024 7:08 PM EST Emergency [facility] Emergency [address] [place] [address] Bilateral flank pain (Primary Dx); [...] Res ult [facility] [address] [place] [address], [place] [phone] * ECG-Annotated (08/22/2024) Provider Onbase MD ECG ORDERABLES Final Result * (ABNORMAL) Drug abuse screen 8a panel, urine (08/21/2024 6:02 PM EST) [facility] Amphetamine Screen, Ur Negative Negative LAB CHEMISTRY [...] Final Result [facility] [address] [place] [address], * (ABNORMAL) Urinalysis with reflex microscopic and culture (08/21/2024 6:00 PM EST) Specific [place] Urine 1.019 1.003 - 1.030 LAB URINALYSIS - AUTOMATED METHOD 08/21/2024 6:43 PM EST [facility] pH, Urine 6.5 5.0 - 8.0 pH LAB URINALYSIS - AUTOMATED METHOD 08/21/2024 6:43 PM [facility] Leukocytes, Urine Trace(A) Negative LAB URINALYSIS - AUTOMATED METHOD 08/21/2024 6:43 PM [facility] Nitrite, Urine Negative Negative LAB URINALYSIS - AUTOMATED METHOD 08/21/2024 6:43 PM [facility] Protein, Urine Negative <=Trace mg/dL LAB URINALYSIS - AUTOMATED METHOD 08/21/2024 6:43 PM [facility] Glucose, Urine Negative Negative mg/dL LAB URINALYSIS - AUTOMATED METHOD 08/21/2024 6:43 PM [facility] Ketones, Urine Negative Negative mg/dL LAB URINALYSIS - AUTOMATED METHOD 08/21/2024 6:43 PM [facility] Urobilinogen , Urine 1.0 0.2 - 1.0 mg/dL LAB URINALYSIS - AUTOMATED METHOD 08/21/2024 6:43 PM [facility] Bilirubin, Urine Negative Negative LAB URINALYSIS - AUTOMATED METHOD 08/21/2024 6:43 PM [facility] Blood, Urine Negative Negative LAB URINALYSIS - AUTOMATED METHOD 08/21/2024 6:43 PM [facility] RBC, Urine 3.9 0 - 4 /HPF LAB URINALYSIS - AUTOMATED METHOD 08/21/2024 6:43 PM [facility] WBC, Urine 4.4(H) 0 - 4 /HPF LAB URINALYSIS - AUTOMATED METHOD 08/21/2024 6:43 PM [facility] Squamous Epithelial, Urine >100(H) 0 - 60 /LPF LAB URINALYSIS - AUTOMATED METHOD 08/21/2024 6:43 PM [facility] Bacteria, Urine Moderate(A) Negative /HPF LAB URINALYSIS - AUTOMATED METHOD 08/21/2024 6:43 PM [facility] Hyaline Casts, Urine 2.4 0 - 3 /LPF LAB URINALYSIS - AUTOMATED METHOD 08/21/2024 6:43 PM EST [facility] Urine Urine specimen obtained by clean catch procedure / Unknown Non-blood Collection / Unknown 08/21/2024 6:00 PM EST 08/21/2024 6:09 PM EST Ramiro Miguelrussell Maier DO LAB URINE ORDERABLES Final Resu lt [facility] [address] [place] [address], [place] [phone] * Vaughn urine culture tube (08/21/2024 6:00 PM EST) Extra Tube Hold for add-ons. 08/21/2024 8:01 PM EST [facility] Comment:Auto resulted. Urine Urine specimen obtained by clean catch procedure / Unknown Non-blood Collection / Unknown 08/21/2024 6:00 PM EST 08/21/2024 6:09 PM EST Ramiro Ryan Livier [facility] LAB URINE ORDERABLES Final Resu lt Performing Organization Address [facility]/ZIP Co de Phone Number [facility] [address] [place] [address], [place] [phone] * Culture urine (08/21/2024 6:00 PM EST) [...] ORDE RABLES Final Result Performing Organization Address City/[facility] Co de Phone Number [facility] [address] [place] [address], * CT Head wo Contrast (08/21/2024 5:00 [...] GEMUSE QTc 443 ms GEMUSE P Wave [place] 58 degrees GEMUSE R [place] 11 degrees GEMUSE T [place] 43 degrees GEMUSE ECG Interpretation Normal sinus [...] K/mcL LAB HEMETOLOGY METHOD 08/21/2024 4:06 PM [facility] RBC 4.60 3.80 - 4.80 M/mcL LAB HEMETOLOGY METHOD 08/21/2024 4:06 PM [facility] Hemoglobin 12.2 11.5 - 16.0 g/dL LAB HEMETOLOGY METHOD 08/21/2024 4:06 PM [facility] Hematocrit 37.6 35.0 - 47.0 % LAB HEMETOLOGY METHOD 08/21/2024 4:06 PM [facility] MCV 82.6 79.0 - 98.0 FL LAB HEMETOLOGY METHOD 08/21/2024 4:06 PM [facility] MCH 26.8(L) 27.0 - 32.0 pcg LAB HEMETOLOGY METHOD 08/21/2024 4:06 PM [facility] MCHC 32.4 32.0 - 37.0 g/dL LAB HEMETOLOGY METHOD 08/21/2024 4:06 PM [facility] RDW 15.2(H) 11.0 - 15.0 % LAB HEMETOLOGY METHOD 08/21/2024 4:06 PM [facility] Platelets 235 130 - 400 K/mcL LAB HEMETOLOGY METHOD 08/21/2024 4:06 PM [facility] MPV 10.3 7.0 - 11.0 FL LAB HEMETOLOGY METHOD 08/21/2024 4:06 PM [facility] NRBC 0.0 <1.0 % LAB HEMETOLOGY METHOD 08/21/2024 4:06 PM [facility] NRBC Absolute 0.00 <0.10 K/mcL LAB HEMETOLOGY METHOD 08/21/2024 4:06 PM [facility] Neutrophils Relative 49.4 % LAB HEMETOLOGY METHOD 08/21/2024 4:06 PM [facility] Lymphocytes Relative 40.3 % LAB HEMETOLOGY METHOD 08/21/2024 4:06 PM [facility] Monocytes Relative 7.7 % LAB HEMETOLOGY METHOD 08/21/2024 4:06 PM [facility] Eosinophils Relative 2.2 % LAB HEMETOLOGY METHOD 08/21/2024 4:06 PM [facility] Basophils Relative 0.2 % LAB HEMETOLOGY METHOD 08/21/2024 4:06 PM [facility] Immature Granulocytes Relative 0.2 % LAB HEMETOLOGY METHOD 08/21/2024 4:06 PM [facility] Neutrophils Absolute 2.26 1.50 - 7.00 K/mcL LAB HEMETOLOGY METHOD 08/21/2024 4:06 PM [facility] Lymphocytes Absolute 1.84 1.00 - 5.00 K/mcL LAB HEMETOLOGY METHOD 08/21/2024 4:06 PM [facility] Monocytes Absolute 0.35 0.20 - 1.00 K/mcL LAB HEMETOLOGY METHOD 08/21/2024 4:06 PM [facility] Eosinophils Absolute 0.10 0.00 - 0.50 K/mcL LAB HEMETOLOGY METHOD 08/21/2024 4:06 PM EST [facility] Basophils Absolute 0.01 0.00 - 0.20 K/[facility] LAB HEMETOLOGY METHOD 08/21/2024 4:06 PM EST [facility] Immature Granulocytes Absolute 0.01 0.00 - 0.03 K/[facility] LAB HEMETOLOGY METHOD 08/21/2024 4:06 PM [facility] Blood Venous blood specimen / Unknown Venipuncture / Unknown 08/21/2024 3:50 PM EST 08/21/2024 3:56 PM EST [employer] LAB BLOOD ORDERABLES Final Resu lt Performing Organization Address City/[facility]/ZIP Co de Phone Number [facility] [address] [place] [address], [place] [phone] * Lipase (08/21/2024 3:50 PM EST) Lipase 34 13 - 75 unit/L LAB CHEMISTRY METHOD 08/21/2024 4:26 PM [facility] Blood Venous blood specimen / Unknown Venipuncture / Unknown 08/21/2024 3:50 PM EST 08/21/2024 3:56 PM EST [employer]on Davis Livier LAB BLOOD ORDERABLES Final Resu lt Performing Organization Address City/[facility]/ZIP Co de Phone Number [facility] [address] [place] [address], [place] [phone] * (ABNORMAL) Comprehensive metabolic panel (08/21/2024 3:50 PM EST) Sodium 144 133 - 145 mmol/L LAB CHEMISTRY METHOD 08/21/2024 4:26 PM [facility] Potassium 3.5 3.5 - 5.5 mmol/L LAB CHEMISTRY METHOD 08/21/2024 4:26 PM [facility] Chloride 113(H) 96 - 110 mmol/L LAB CHEMISTRY METHOD 08/21/2024 4:26 PM [facility] CO2 23 21 - 32 mmol/L LAB CHEMISTRY METHOD 08/21/2024 4:26 PM [facility] Anion Gap 8 3 - 11 LAB CHEMISTRY METHOD 08/21/2024 4:26 PM [facility] Glucose 108(H) 70 - 100 mg/dL LAB CHEMISTRY METHOD 08/21/2024 4:26 PM [facility] BUN 13 5 - 25 mg/dL LAB CHEMISTRY METHOD 08/21/2024 4:26 PM [facility] Creatinine 0.54 0.50 - 1.10 mg/dL LAB CHEMISTRY METHOD 08/21/2024 4:26 PM [facility] eGFR 106 >=60 mL/min/1. 73m2 LAB CHEMISTRY METHOD 08/21/2024 4:26 PM [facility] Comment:Calculation based on the??Chronic Kidney Disease Epidemiology Collaboration (CKD-EPI) equation refit??without adjustment for race. BUN/Creatinine Ratio 24.1 LAB CHEMISTRY METHOD 08/21/2024 4:26 PM [facility] Calcium 9.3 8.5 - 10.5 mg/dL LAB CHEMISTRY METHOD 08/21/2024 4:26 PM [facility] AST (SGOT) 27 10 - 42 unit/L LAB CHEMISTRY METHOD 08/21/2024 4:26 PM [facility] ALT (SGPT) 36 10 - 60 unit/L LAB CHEMISTRY METHOD 08/21/2024 4:26 PM [facility] Alkaline Phosphatase 109 42 - 121 unit/L LAB CHEMISTRY METHOD 08/21/2024 4:26 PM [facility] Total Protein 7.2 6.0 - 8.0 g/dL LAB CHEMISTRY METHOD 08/21/2024 4:26 PM [facility] Albumin 3.9 3.2 - [...] lt [facility] [address] [place] [address], [place] [phone] from Last 3 Months Insurance MEDICAID - [place] Care Teams District Branch Manager Relationship Specialty Start Date End Date Physician, No Pcp PCP - General 08/21/24
--- OUTSIDE RECORDS SUMMARY | 2024-11-18 08:47 | XMS_ITS | Encounter Summary ---
Author Organization [employer] Address [address] [place] [address] Care Team Providers Care Courtroom Reporter Name Role Phone Amber Quiroz MD Primary [...] 12/04/2024 2:00 PM EDT Clinical Support [facility] [address] [place] [address] documented as of this encounter Procedures Procedure [...] EDT) Anatomical Region Laterality Modality Chest Radiographic Hsy ging 11/14/2024 7:54 AM EDT Narrative 11/14/2024 8:16 AM EDT ? [facility] ?[address] ?[place] [address] ?XRay Report ? Signed ? Patient: Marquez,Zelidez ?MR#: [id number] ?? [id number] ? : 1965 ?Acct:[id number] ? Age/Sex: 58 / F ?ADM Date: 05/15/25 ? Loc: HO.ED ? Attending Dr: ? Ordering Physician: Bobby Ham MD ?? Date of Service: 11/14/24 ?? Procedure(s): XR chest 1V ?? Accession Number(s): [id number] ? cc: Bobby Ham MD; Amber Quiroz [...] acute cardiopulmonary abnormality. ? Electronically signed by: ??Msiha Curtis MD ??11/14/2024 08:14 AM EDT ? Dictated By: ?Misha Curtis MD ? Signed By: ?<Electronically signed by Misha Curtis MD in OV> ?11/14/24 0814 ? DD/ 0754 ? TD/TT: 11/14/24 0800 ? Electrical Line Splicer: ? Procedure Note Nisha Biswas - 11/14/[address] [address] XRay Report Signed Patient: John MarquezMR#: [id number] : 1965Acct:[id number] Age/Sex: 58 / FADM Date: 11/14/24 Loc: HO.ED Attending Dr: Ordering Physician: Bobby Ham MD Date of Service: 11/14/24 Procedure(s): XR chest 1V Accession Number(s): [id number] cc: Bobby Ham MD; Amber Quiroz MD [...] 11/14/24 0814 DD/ 0754 TD/TT: 11/14/24 0800 Electrical Line Splicer: [facility] External Provider IMG XR PROCEDURES Final Result * High Sensitivity Troponin I (11/14/2024 7:49 AM EDT) [facility] TROPONIN I HIGH SENSITIVITY <2.7 <3.5 - 17.0 ng/L [facility] Comment:The [place] high sens itivity Troponin-I results should beused in conjunction with other diagnostic information suchas ECG, clinical observations and information, and patientsymptoms to aid in the diagnosis of [place]. 11/14/2024 7:49 AM EDT 11/14/2024 7:51 AM EDT Generic External Data Provider LAB BLOOD ORDERAB LES Final Result Performing Organization Address [facility]/ZIP Co de Phone Number [facility] [address] [place] [address] [phone] * D Dimer High Sensitivity (11/14/2024 7:49 AM EDT) [facility] D Dimer High Sensitivity 231 NG/ML [facility] Comment:D-DIMER HS REFERENCE RANGENote: Our [...] Provider LAB BLOOD ORDERAB LES Final Result [facility] [address] [place] [address] [phone] * High Sensitivity Troponin I (11/14/2024 5:36 AM EDT) Pathologist [facility] TROPONIN I HIGH SENSITIVITY <2.7 <3.5 - 17.0 ng/L [facility] Comment:The [place] high sens itivity Troponin-I results should beused in conjunction with other diagnostic information suchas ECG, clinical observations and information, and patientsymptoms to aid in the diagnosis of [place]. 11/14/2024 5:36 AM EDT 11/14/2024 5:40 AM EDT us Generic External Data Provider LAB BLOOD ORDERAB LES Final Result [facility] [address] [place] [phone] * (ABNORMAL) Comprehensive Metabolic Panel (11/14/2024 5:36 AM EDT) [facility] Sodium 143 135 - 145 mmol/L [facility] Potassium 3.8 3.3 - 5.1 mmol/L [facility] Chloride 110(H) 96 - 108 mmol/L [facility] Carbon Dioxide 23 22 - 29 mmol/L [facility] Anion Gap 14 12 - 20 [facility] Urea Nitrogen (BUN) 16 9 - 16 mg/dL [facility] Creatinine, Serum 0.64 0.5 - 1.4 mg/dL [facility] Creatinine Clr Calc Pharmacy 66.7 [facility] Comment:Provided height and weight: 154.94 cm,44.7 kg.eGFR (calculated from the MDRD study equation) and eCrCl(calculated from the Cockcroft-Gault equation) are based ondifferent parameters and may not yield comparable results.If eCrCl result is absurd, please check patient'sheight/weight. Estimated Glomerular Filt Rate >60 [facility] Comment:Chronic Kidney Disea se: Estimated GFR < 60 mL/min/1.69s8Dawxbl Kidney Disease: Estimated GFR < 15 mL/min/1.73m2 Glucose 97 60 - 115 mg/dL [facility] Calcium 9.3 8.4 - 10.2 mg/dL [facility] Bilirubin, Total 0.3 0.0 - 1.0 mg/dL [facility] Aspartate Amino Transferase 44(H) 5 - 31 U/L [facility] Alanine Aminotransferase 37(H) 0 - 31 U/L [facility] Total Protein 7.5 6.5 - 8.0 g/dL [facility] Albumin Level 4.4 3.5 - 5.0 g/dL [facility] Alkaline Phosphatase 107 39 - 117 U/L [facility] 11/14/2024 5:36 AM EDT 11/14/2024 5:40 AM EDT us Generic External Data Provider LAB BLOOD ORDERAB LES Final Result [facility] [address] [place] [phone] * CBC auto differential (11/14/2024 5:36 AM EDT) White Blood Count 5.3 4.8 - 10.8 X10*3/uL [facility] Red Blood Count 4.52 4.20 - 5.50 X10*6/uL [facility] Hemoglobin 12.4 12.0 - 16.0 g/dl [facility] Hematocrit 37.7 37.0 - 47.0 % [facility] Mean Corpuscular Volume 83.4 80.0 - 98.0 fL [facility] Mean Corpuscular Hemoglobin 27.4 27.0 - 33.0 pg [facility] Mean Corpuscular HGB Conc 32.9 31.0 - 35.0 g/dl [facility] Red Cell Distribution Width 15.2 11.0 - 16.0 % [facility] Platelet Count 270 160 - 400 X10*3/uL [facility] Mean Platelet Volume 9.5 9.4 - 12.3 fL [facility] Neutrophils Percent Auto 57.0 45 - 73 % [facility] Imm Gran Pct Auto 0.0 0.0 - 0.4 % [facility] Lymphocytes Percent Auto 32.8 20 - 40 % [facility] Monocytes Percent Auto 7.9 2 - 11 % [facility] Eosinophils Percent Auto 2.1 0 - 4 % [facility] Basophils Percent Auto 0.2 0 - 2 % [facility] NRBC Pct Auto 0.0 0.0 - 0.2 /100WBC [facility] Neutrophils Absolute Auto 3.1 2.0 - 8.3 x10*3/uL [facility] Imm Gran Abs Auto 0.00 0.00 - 0.03 X10*3/uL [facility] Lymphocytes Absolute Auto 1.8 1.2 - 4.9 X10*3/uL [facility] Monocytes Absolute Auto 0.4 0.1 - 1.2 X10*3/uL [facility] Eosinophils Absolute Auto 0.1 0.0 - 0.4 X10*3/uL [facility] Basophils Absolute Auto 0.0 0.0 - 0.2 X10*3/uL [facility] NRBC Abs Auto 0.000 0.0 - 0.012 X10*3/uL [facility] 11/14/2024 5:36 AM EDT 11/14/2024 5:40 AM EDT us Generic External Data Provider LAB BLOOD ORDERAB LES Final Result [facility] [address] [place] [phone] documented in this encounter Visit Diagnoses Not on filedocumented in this encounter Care Teams Courtroom Reporter Relationship Specialty Start Date End Date Amber Quiroz MD [address] [place] [address] PCP - General Family Medicine 07/03/18 documented as of this encounter
--- OUTSIDE RECORDS SUMMARY | 2024-11-18 08:47 | XMS_ITS | Encounter Summary ---
Author Organization [employer] Address [address] [facility] 7[address] [place] [address] Care Team Providers Care Retail Account Representative Name Role Phone Amber Quiroz MD Primary Care Provider [phone] Reason for Visit * Reason Onset Date Comments Med Refill 01/10/2024 Encounter Details Date Type Department Care Team (Late st Contact Info) Description 01/10/2024 Telephone [facility] [address] [place], [place] [phone] Amber Quiroz MD [address] [place], [place] [phone] Med Refill Social History Tobacco Use Types [...] immediate release tablet To be sent to: [facility] - [place], [place] - [address] [place] [address] documented in this encounter Plan of Treatment Upcoming Encounters Date Type Department Care Team (Late st Contact Info) Description 12/04/2024 2:00 PM EDT Clinical Support [facility] [address] [place] [address] documented as of this encounter Visit Diagnoses Not on filedocumented in this encounter Care Teams Retail Account Representative Relationship Specialty Start Date End Date Amber Quiroz MD [address] [place] [phone] PCP - General Family Medicine 07/03/18 documented as of this encounter
--- OUTSIDE RECORDS SUMMARY | 2024-11-18 08:47 | XMS_ITS | Encounter Summary ---
Author Organization [employer] Address [address] [facility] 7t [place] [address] Care Team Providers Care Snow Groomer Name Role Phone Amber Quiroz MD Primary Care Provider [phone] Encounter Details Date Type Department Care Team (Late st Contact Info) Description 07/28/2022 Orders Only [facility] [address] [place] [address] [phone] Anabell Martinez LPN Social History Tobacco Use [...] Description 12/04/2024 2:00 PM EDT Clinical Support [facility] [address] [place] [phone] documented as of this encounter Procedures Procedure [...] (08/02/2022 12:29 AM EST) Color Urine Yellow [facility] Appearance Urine Turbid [facility] PH 6.5 5.0 - 9.0 [facility] Glucose Urine UA Negative Negative mg/dL [facility] Urine Blood Trace(A) Negative [facility] Specific Hiko - Urine 1.020 1.005 - 1.025 [facility] Urine Protein 30 (1+)(A) Neg-Trace mg/dL [facility] Urine Ketones Negative Negative mg/dL [facility] Nitrite Urine Negative Negative [facility] Leukocyte Esterase Urine Large (3+)(A) Negative [facility] RBC Urine 0-2 0 - 2 /HPF [facility] Urine WBC >50(A) 0 - 5 /HPF [facility] Urine Squamous Epithelial Cell 6-10 0 - 2 /HPF [facility] Urine Bacteria 1+ None Seen [facility] Hyaline Casts, Urine 3-5 0 - 2 /LPF [facility] 08/02/2022 12:2 9 AM EST 08/02/2022 12:31 AM EST Narrative [facility] - 08/02/2022 12:50 AM EST Urine, Clean Catch us [facility] External Provider LAB URI NE ORDERABLES Final Result [facility] [address] [place] [phone] * SARS-CoV-2 RNA, Influenza A/B, and RSV RNA, Ql NAAT (08/02/2022 12:17 AM EST) Influenza A PCR NEGATIVE Negative [facility] Influenza B PCR NEGATIVE Negative [facility] Resp Syncy Virus RNA Qual PCR NEGATIVE Negative [facility] SARS COV2 PCR NEGATIVE Negative [facility] SARS/Flu/RSV Note See Note [facility] Comment:All test results mus t [...] use by authorized laboratories.Testing performed on the [employer] GeneXpert utilizingreal-time RT-PCR.All SARS CoV2 and positive influenza A/B results arereported to [facility]. 08/02/2022 12:1 7 AM EST 08/02/2022 12:19 AM EST us [facility] Exter nal Provider LAB MICROBIOLOGY - GENERAL ORDERABLES Final Result [facility] [address] [place] [phone] * (ABNORMAL) Basic Metabolic Panel (08/02/2022 12:17 AM EST) Pathologist [facility] Sodium 140 135 - 145 mmol/L [facility] Potassium 3.9 3.3 - 5.1 mmol/L [facility] Chloride 105 96 - 108 mmol/L [facility] Carbon Dioxide 24 22 - 29 mmol/L [facility] Anion Gap 15 12 - 20 [facility] Urea Nitrogen (BUN) 14 9 - 16 mg/dL [facility] Creatinine, Serum 0.75 0.5 - 1.4 mg/dL [facility] Creatinine Clr Calc Pharmacy 71.4 [facility] Comment:Provided height and weight: 162.56 cm,63.503 kg.eGFR (calculated from the MDRD study equation) and eCrCl(calculated from the Cockcroft-Gault equation) are based ondifferent parameters and may not yield comparable results.If eCrCl result is absurd, please check patient'sheight/weight. Estimated Glomerular Filt Rate >60 [facility] Comment:NOTE: For -Am erican individuals, multiply the result by 1.210.Chronic Kidney Disease: Estimated GFR < 60 mL/min/1.85z1Irpkgc Kidney Disease: Estimated GFR < 15 mL/min/1.73m2 Glucose 119(H) 60 - 115 mg/dL [facility] Calcium 9.0 8.4 - 10.2 mg/dL [facility] 08/02/2022 12:1 7 AM EST 08/02/2022 12:19 AM EST [facility] External Provider LAB BLO OD ORDERABLES Final Result [facility] [address] [place] [phone] * (ABNORMAL) CBC auto differential (08/02/2022 12:17 AM EST) White Blood Count 6.4 4.8 - 10.8 X10*3/uL [facility] Red Blood Count 3.96(L) 4.20 - 5.50 X10*6/uL [facility] Hemoglobin 10.8(L) 12.0 - 16.0 g/dl [facility] Hematocrit 33.0(L) 37.0 - 47.0 % [facility] Mean Corpuscular Volume 83.3 80.0 - 98.0 fL [facility] Mean Corpuscular Hemoglobin 27.3 27.0 - 33.0 pg [facility] Mean Corpuscular HGB Conc 32.7 31.0 - 35.0 g/dl [facility] Red Cell Distribution Width 14.2 11.0 - 16.0 % [facility] Platelet Count 202 160 - 400 X10*3/uL [facility] Mean Platelet Volume 9.2(L) 9.4 - 12.3 fL [facility] Neutrophils Percent Auto 68.5 45 - 73 % [facility] Imm Gran Pct Auto 0.2 0.0 - 0.4 % [facility] Lymphocytes Percent Auto 21.9 20 - 40 % [facility] Monocytes Percent Auto 8.6 2 - 11 % [facility] Eosinophils Percent Auto 0.5 0 - 4 % [facility] Basophils Percent Auto 0.3 0 - 2 % [facility] NRBC Pct Auto 0.0 0.0 - 0.2 /100WBC [facility] Neutrophils Absolute Auto 4.4 2.0 - 8.3 x10*3/uL [facility] Imm Gran Abs Auto 0.01 0.00 - 0.03 X10*3/uL [facility] Lymphocytes Absolute Auto 1.4 1.2 - 4.9 X10*3/uL [facility] Monocytes Absolute Auto 0.6 0.1 - 1.2 X10*3/uL [facility] Eosinophils Absolute Auto 0.0 0.0 - 0.4 X10*3/uL [facility] Basophils Absolute Auto 0.0 0.0 - 0.2 X10*3/uL [facility] NRBC Abs Auto 0.000 0.0 - 0.012 X10*3/uL [facility] 08/02/2022 12:1 7 AM EST 08/02/2022 12:19 AM EST us [facility] External Provider LAB BLO OD ORDERABLES Final Result [facility] [address] [place] [phone] * Culture, Urine, Routine (08/02/2022 12:00 AM EST) 08/02/2022 08/02/2022 7:3 1 AM EST Comment:UACC Narrative [facility] - 08/03/2022 9:19 AM EST Urine Culture No growth. Specimen Source: Urine clean catch us [facility] Exter nal Provider LAB MICROBIOLOGY - GENERAL ORDERABLES Final Result [facility] [address] [place] [phone] [phone] documented in this encounter Visit Diagnoses Not on filedocumented in this encounter Care Teams Snow Groomer Relationship Specialty Start Date End Date Amber Quiroz MD [address] [place] [phone] PCP - General Family Medicine 07/03/18 documented as of this encounter
--- OUTSIDE RECORDS SUMMARY | 2024-11-18 08:47 | XMS_ITS | Encounter Summary ---
Author Organization [employer] Address [address] [facility] 7 [place] [address] Care Team Providers Care Development Representative Name Role Phone Amber Quiroz MD Primary Care Provider [phone] Reason for Visit * Reason Comments Med Refill Encounter Details Date Type Department Care Team (Late st Contact Info) Description 04/26/2023 Refill [facility] [address] [place] [phone] Amber Quiroz MD [address] [place] [address] [phone] Nausea Social History Tobacco Use Types Packs/Day [...] Description 12/04/2024 2:00 PM EDT Clinical Support [facility] [address] [place] [address] [phone] documented as of this encounter Visit Diagnoses Diagnosis Nausea Nausea alone documented in this encounter Care Teams Development Representative Relationship Specialty Start Date End Date Amber Quiroz MD [address] [place] [address] [phone] PCP - General Family Medicine 07/03/18 documented as of this encounter
--- OUTSIDE RECORDS SUMMARY | 2024-11-18 08:47 | XMS_ITS | Encounter Summary ---
Author Organization [employer] Address [address] [facility] 7t [place] [address] Care Team Providers Care Digital Producer Name Role Phone Amber Quiroz MD Primary Care Provider [phone] Encounter Details Date Type Department Care Team (Late st Contact Info) Description 04/05/2023 Orders Only [facility] [address] [place] [address] Anabell Martinez LPN Social History Tobacco Use [...] Description 12/04/2024 2:00 PM EDT Clinical Support [facility] [address] [place] [address] documented as of this encounter Visit Diagnoses Not on filedocumented in this encounter Care Teams Digital Producer Relationship Specialty Start Date End Date Amber Quiroz MD [address] [place] [address] PCP - General Family Medicine 07/03/18 documented as of this encounter
== END 2024-11-18 08:41 | disposition home or self-care (01) ==
LOC: HO.HHCX 08:40
PROVIDERS: Visit Provider Family Medicine
DX: M25.562 Pain in left knee (principal); G89.29 Other chronic pain
CPT/HCPCS: 73562

== ENCOUNTER → 2024-11-18 08:40 | Outpatient (BNV) | payer MEDICAID, SELFPAY | PROVIDERS: Visit Provider Radiology Diagnostic Radiology | DX: M17.12 Unilateral primary osteoarthritis, left knee (principal) | CPT/HCPCS: 73562 ==

== ENCOUNTER 2024-11-19 05:07 | Emergency (ER) | payer MEDICAID, SELFPAY ==
[2024-11-19 05:22] VITALS: BP 118/70; BP 160/81; PULSE 78; PULSE 84; RESP 16; TEMP 37; O2SAT 94; O2SAT 98; BMI 26.1
--- NOTE | 2024-11-19 05:25 | ED_ITS ---
HPI - General Adult General Chief complaint: Abdominal Pain Stated complaint: BLOOD IN URINE Time Seen by Provider: 11/19/24 05:24 History of Present Illness ED Provider: Maurice BELLE narrative: The patient is a 59-year-old woman with a history of kidney stones. She has a history of multiple emergency room visits related to possible kidney stone issues. Since July of [address] she has had 14 [address] scans of the abdomen and pelvis at this emergency room. In this calendar year alone she has had 6 CT scans of the abdomen and pelvis.. She has had 2 CT scans this month. She had a CT scan on November 02 that showed multiple intrarenal stones but no obstructing stones. She had a CT scan on November 11 that showed a 3 mm calculus in the distal right ureter which was felt to be nonobstructing. She had a renal ultrasound on November 15 that showed no hydronephrosis. She returns saying that she had worsening bilateral lower abdominal pain tonight associated with hematuria. She describes her pain as 10/10. She has had multiple recent ER visits for similar complaints. She has submitted multiple urine specimens which usually test positive for blood. She has had no positive urine cultures. Related Data Home Medications ?Medication ?Instructions ?Recorded ?Confirmed albuterol sulfate 90 mcg/actuation 2 puff PO Q4-6H PRN dyspnea 11/26/20 11/26/20 aerosol inhaler (ProAir HFA) amlodipine 10 mg tablet 1 tab PO DAILY 11/26/20 11/26/20 ascorbic acid (vitamin C) 250 mg 1 tab PO BID 11/26/20 11/26/20 tablet atorvastatin 10 mg tablet 1 tab PO DAILY 11/26/20 11/26/20 clonidine HCl 0.2 mg tablet 1 tab PO BID PRN panic attack 11/26/20 11/26/20 cyanocobalamin (vitamin B-12) 500 1 tab PO DAILY 11/26/20 11/26/20 mcg tablet docusate sodium 100 mg capsule 1 - 2 cap PO BEDTIME PRN 11/26/20 11/26/20 constipation fluoxetine 20 mg capsule 3 cap PO QAM 11/26/20 11/26/20 gabapentin 100 mg capsule 1 cap PO TID PRN anxiety 11/26/20 11/26/20 gabapentin 400 mg capsule 1 cap PO BEDTIME 11/26/20 11/26/20 loratadine 10 mg tablet 1 tab PO DAILY 11/26/20 11/26/20 loratadine 10 mg tablet 1 tab PO DAILY 11/26/20 11/26/20 mirtazapine 30 mg tablet 1 tab PO BEDTIME 11/26/20 11/26/20 mirtazapine 30 mg tablet 1 tab PO BEDTIME 11/26/20 11/26/20 ondansetron HCl 4 mg tablet 1 tab PO Q8H PRN nausea 11/26/20 11/26/20 polyvinyl alcohol 1.4 % eye drops 1 drp ophthalmic (eye) TID 11/26/20 11/26/20 (Artificial Tears (polyvinyl alcohol)) quetiapine 25 mg tablet 1 tab PO BID PRN anxiety 11/26/20 11/26/20 topiramate 25 mg tablet 1 tab PO BID 11/26/20 11/26/20 zolpidem 10 mg tablet 1 tab PO BEDTIME PRN insomnia 11/26/20 11/26/20 Previous Rx's ?Medication ?Instructions ?Recorded tramadol 50 mg tablet 50 mg PO Q8H PRN pain #3 tabs 11/26/20 nitrofurantoin 100 mg PO BID #14 caps 05/26/21 monohydrate/macrocrystals 100 mg capsule (Macrobid) phenazopyridine 100 mg tablet 100 mg PO TID PRN pain 6 doses #6 05/26/21 (Pyridium) tabs cefuroxime axetil 250 mg tablet 250 mg PO BID 7 days #14 tabs 07/15/21 morphine 15 mg immediate release 15 mg PO BID PRN pain #8 tabs 07/15/21 tablet docusate sodium 100 mg capsule 100 mg PO BID #20 caps 07/21/21 (Colace) sennosides 8.6 mg tablet (senna) 8.6 mg PO BEDTIME #14 tabs 07/21/21 docusate sodium 100 mg capsule 100 mg PO BID PRN Constipation #14 11/23/21 (Colace) caps nitrofurantoin 100 mg PO BID uti 7 days #14 caps 11/23/21 monohydrate/macrocrystals 100 mg capsule (Macrobid) ondansetron 4 mg disintegrating 4 mg PO Q6H nausea/vomiting #14 11/23/21 tablet tabs cephalexin 500 mg capsule 500 mg PO Q8H 7 days #21 caps 08/02/22 ondansetron 4 mg disintegrating 4 mg PO Q8H PRN nausea and 03/02/23 tablet vomiting #10 tabs phenazopyridine 200 mg tablet 200 mg PO TID PRN pain 6 doses #6 03/02/23 (Pyridium) tabs acetaminophen 325 mg capsule 650 mg (2 x 325 mg) PO Q6H PRN 04/01/24 (Tylenol) pain #30 caps cefdinir 300 mg capsule 300 mg PO BID 5 days #10 caps 04/01/24 cephalexin 500 mg capsule 500 mg PO BID #14 caps 07/15/24 ondansetron HCl 4 mg tablet 4 mg PO Q8H PRN nausea and 07/15/24 vomiting #10 tabs oxycodone 5 mg tablet 5 mg PO Q6H PRN pain, moderate #10 07/15/24 tabs tamsulosin 0.4 mg capsule (Flomax) 0.4 mg PO DAILY #6 caps 07/15/24 dicyclomine 10 mg capsule 10 mg PO BID #14 caps 08/14/24 ondansetron 4 mg disintegrating 4 mg PO Q8H PRN nausea and 08/14/24 tablet vomiting #10 tabs cefuroxime axetil 250 mg tablet 250 mg PO BID 7 days #14 tabs 10/17/24 ondansetron 4 mg disintegrating 4 mg PO Q8H PRN nausea and 10/17/24 tablet vomiting #7 tabs oxycodone 5 mg tablet 5 mg PO Q8H PRN severe pain (scale 10/17/24 score 7-10) #9 tabs tamsulosin 0.4 mg capsule (Flomax) 0.4 mg PO BEDTIME #14 caps 10/17/24 acetaminophen 500 mg capsule 1,000 mg (2 x 500 mg) PO Q8H PRN 11/19/24 fever or pain #14 caps cephalexin 500 mg capsule 500 mg PO BID #12 caps 11/19/24 ondansetron 4 mg disintegrating 4 mg PO Q6H PRN nausea and 11/19/24 tablet vomiting #10 tabs phenazopyridine 200 mg tablet 200 mg PO TID PRN Dysuria 6 doses 11/19/24 #6 tabs Allergies Allergy/AdvReac Type Severity Reaction Status Date / Time aspirin [ASA] Allergy Intermediate RASH, Verified 11/19/24 05:27 nausea and vomiting ibuprofen [IBUPROFEN] Allergy Intermediate RASH Verified 11/14/24 05:30 nicotine Allergy Intermediate RASH FROM Verified 11/14/24 05:30 NICOTINE PATCH, nausea and vomiting ketorolac [From TORADOL] Allergy Mild RAPID HR Verified 11/14/24 05:30 AND HIVES haloperidol [From Haldol] Allergy Anaphylaxis Verified 11/14/24 05:30 metoclopramide [From Reglan] Allergy Unknown Verified 11/14/24 05:30 Review of Systems 2 Review of Systems: Yes all other systems are reviewed and are negative [facility] Past Medical History Medical History delivery delivered HTN (hypertension) Anemia Hypercholesteremia DVT (deep venous thrombosis) Kidney stones Surgical History Total knee replacement status Social History Social History Unable to assess alcohol history related to: Unknown Alcohol intake: never Patient Tobacco Use Status: Current everyday Tobacco user Use of substances other than those prescribed or required for medical reasons: No Substance Use Type: Prescription Drugs Any prior treatment program specific to substance use: No Advance Directives: No Advance Directives Information Provided: Yes Do you have a plan to hurt others: No Plan Physical Exam ED Vital Signs: Vital Signs - 24 hr 11/19/24 05:22 11/19/24 06:42 Temperature 98.6 F 98.6 F Pulse Rate 78 78 Respiratory Rate 16 16 Blood Pressure 160/81 H 160/81 H Pulse Oximetry 94 94 Oxygen Delivery Method Room Air Room Air BMI result Body Mass Index 26.1 Const Other: The patient is awake and alert. She said that she was very uncomfortable but she seemed to be moving around very easily and normally. She does not seem obviously acutely ill. HENMT Other: Face is symmetrical. Mucous membranes moist. Eyes General: appearance normal, both eyes and all related structures Neck Neck: Yes normal visual inspection and Yes full ROM Resp Effort & Inspection: normal respiratory effort Auscultation: clear to auscultation bilaterally Cardio Rate: regular rate Rhythm: regular rhythm Heart sounds: S1 normal heart sound present and S2 normal heart sound present GI Other: The abdomen was flat and soft. She reported tenderness in both lower quadrants. There was no rebound or guarding. When she was distracted she did not seem tender. Back/Spine/Pelvis Other: No CVA percussion tenderness on either flank. Skin Other: Skin is dry and unremarkable Neuro Other: The patient is awake and alert with a normal level of consciousness and a normal mental status. Cranial nerves 2-12 are intact. She moves her extremities normally. She has a normal gait. Extrem Other: No peripheral edema Medications Administered Discontinued Medications Generic Name Dose Route Start Last Admin Trade Name Freq PRN Reason Stop Dose Admin Cephalexin HCl 500 mg 11/19/24 06:29 11/19/24 06:35 Cephalexin 500 Mg Capsule PO 11/19/24 06:30 500 mg ONCE ONE Administration Ondansetron HCl 4 mg 11/19/24 06:29 11/19/24 06:35 Ondansetron Odt 4 Mg Tab.Rapdis TRANSLINGU 11/19/24 06:30 4 mg ONCE ONE Administration Phenazopyridine HCl 200 mg 11/19/24 06:29 11/19/24 06:34 Phenazopyridine Hcl 200 Mg Tablet PO 11/19/24 06:30 200 mg ONCE ONE Administration Medical Decision Making Medical Decision Making MDM Narrative: The patient is a 59-year-old female with a history of kidney stones. She also has a history of multiple emergency room visits with complaints of pain and she has had a very large number of CT scans of the abdomen and pelvis, many of which do not show any acute findings. She presents today complaining of urinary pain, bilateral lower abdominal pain, and bilateral flank pain. Her physical exam seems very benign. I have the impression that she is narcotic seeking. Her urinalysis today has greater than 50 white cells. Previous urine cultures recently have not grown any organisms. However today's urinalysis is more suggestive of a UTI the recent previous urinalyses. The patient will be started on cephalexin. She will also be prescribed phenazopyridine and acetaminophen. She claimed that she has been vomiting but I am somewhat skeptical. I will prescribe ondansetron. I explained that I would not prescribe narcotics. Despite initially saying that she was in horrible 10/10 pain, when she left the emergency room she walked easily and was smiling. Lab Data 11/19/24 05:56 11/19/24 05:56 Labs: Lab Results 11/19/24 Range/Units 05:56 WBC 5.3 (4.8-10.8) X10*3/uL RBC 4.18 L (4.20-5.50) X10*6/uL Hgb 11.3 L (12.0-16.0) g/dl Hct 35.2 L (37.0-47.0) % MCV 84.2 (80.0-98.0) fL MCH 27.0 (27.0-33.0) pg MCHC 32.1 (31.0-35.0) g/dl RDW 15.4 (11.0-16.0) % Plt Count 271 (160-400) X10*3/uL MPV 9.7 (9.4-12.3) fL Immature Gran % (Auto) 0.2 (0.0-0.4) % Neut % (Auto) 57.6 (45-73) % Lymph % (Auto) 31.8 (20-40) % Pepin % (Auto) 7.9 (2-11) % Eos % (Auto) 1.9 (0-4) % Baso % (Auto) 0.6 (0-2) % Lymph # (Auto) 1.7 (1.2-4.9) X10*3/uL Pepin # (Auto) 0.4 (0.1-1.2) X10*3/uL Eos # (Auto) 0.1 (0.0-0.4) X10*3/uL Baso # (Auto) 0.0 (0.0-0.2) X10*3/uL Abs Immat Gran (auto) 0.01 (0.00-0.03) X10*3/uL Absolute Neuts (auto) 3.1 (2.0-8.3) x10*3/uL Absolute Nucleated RBC 0.000 (0.0-0.012) X10*3/uL Nucleated RBC % (auto) 0.0 (0.0-0.2) /100WBC Sodium 142 (135-145) mmol/L Potassium 4.6 (3.3-5.1) mmol/L Chloride 110 H (96-108) mmol/L Carbon Dioxide 23 (22-29) mmol/L Anion Gap 14 (12-20) BUN 17 H (9-16) mg/dL Creatinine 0.66 (0.5-1.4) mg/dL Estim Creat Clear Calc 76.8 Estimated GFR > 60 Random Glucose 107 (60-115) mg/dL Calcium 8.9 (8.4-10.2) mg/dL Total Bilirubin 0.2 (0.0-1.0) mg/dL Direct Bilirubin < 0.2 (0.0-0.5) mg/dL AST 38 H (5-31) U/L ALT 26 (0-31) U/L Alkaline Phosphatase 103 (39-117) U/L C-Reactive Protein < 0.10 (< or = 0.50) mg/dL Total Protein 7.1 (6.5-8.0) g/dL Albumin 4.0 (3.5-5.0) g/dL Lipase 29 (8-78) U/L Urine Color Yellow Urine Appearance Cloudy Urine pH 6.5 (5.0-9.0) Ur Specific [place] 1.025 (1.005-1.025) Urine Protein 30 (1+) H (Neg-Trace) mg/dL Urine Glucose (UA) Negative (Negative) mg/dL Urine Ketones Trace (Negative) mg/dL Urine Blood Small (1+) H (Negative) Urine Nitrite Negative (Negative) Ur Leukocyte Esterase Large (3+) H (Negative) Urine RBC 6-10 H (0-2) /HPF Urine WBC >50 H (0-5) /HPF Ur Squamous Epith Cells 3-5 (0-2) /HPF Urine Bacteria 1+ (None Seen) Hyaline Casts 3-5 (0-2) /LPF Ethyl Alcohol < 10 mg/dL Discharge Plan Discharge Clinical Impression: Abnormal urinalysis Patient Disposition: Home, Self-Care Additional Instructions: Your urinalysis in the emergency room today is possibly indicating a urinary tract infection. Your blood testing is very reassuring. There was no evidence of a systemic infection. You has been started on a course of antibiotics, cephalexin. Please take this medication 2 times a day as prescribed. In addition to the prescription for cephalexin prescriptions has been sent for phenazopyridine (commonly known as Pyridium) which can help reduce the pain of urination with a urinary tract infection. This medication usually turns urine orange. Also there is a prescription for ondansetron that you may use as needed for nausea. Also there is a prescription for acetaminophen to be used as needed for pain. Please follow up soon with your regular doctor. Prescriptions: New cephalexin 500 mg capsule 500 mg PO BID Qty: 12 0RF acetaminophen 500 mg capsule 1,000 mg PO Q8H PRN (Reason: fever or pain) Qty: 14 0RF phenazopyridine 200 mg tablet 200 mg PO TID PRN (Reason: Dysuria) Qty: 6 0RF ondansetron 4 mg tablet,disintegrating 4 mg PO Q6H PRN (Reason: nausea and vomiting) Qty: 10 0RF No Action quetiapine 25 mg tablet 1 tab PO BID PRN (Reason: anxiety) atorvastatin 10 mg tablet 1 tab PO DAILY polyvinyl alcohol [Artificial Tears (polyvin alc)] 1.4 % drops 1 drp ophthalmic (eye) TID ondansetron HCl 4 mg tablet 1 tab PO Q8H PRN (Reason: nausea) gabapentin 400 mg capsule 1 cap PO BEDTIME topiramate 25 mg tablet 1 tab PO BID clonidine HCl 0.2 mg tablet 1 tab PO BID PRN (Reason: panic attack) cyanocobalamin (vitamin B-12) 500 mcg tablet 1 tab PO DAILY ascorbic acid (vitamin C) 250 mg tablet 1 tab PO BID amlodipine 10 mg tablet 1 tab PO DAILY mirtazapine 30 mg tablet 1 tab PO BEDTIME mirtazapine 30 mg tablet 1 tab PO BEDTIME docusate sodium 100 mg capsule 1 - 2 cap PO BEDTIME PRN (Reason: constipation) gabapentin 100 mg capsule 1 cap PO TID PRN (Reason: anxiety) zolpidem 10 mg tablet 1 tab PO BEDTIME PRN (Reason: insomnia) albuterol sulfate [ProAir HFA] 90 mcg/actuation HFA aerosol inhaler 2 puff PO Q4-6H PRN (Reason: dyspnea) fluoxetine 20 mg capsule 3 cap PO QAM loratadine 10 mg tablet 1 tab PO DAILY loratadine 10 mg tablet 1 tab PO DAILY tramadol 50 mg tablet 50 mg PO Q8H PRN (Reason: pain) Qty: 3 0RF morphine 15 mg tablet 15 mg PO BID PRN (Reason: pain) Qty: 8 0RF cefuroxime axetil 250 mg tablet 250 mg PO BID 7 Days Qty: 14 0RF nitrofurantoin monohyd/m-cryst [Macrobid] 100 mg capsule 100 mg PO BID Qty: 14 0RF Rx Instructions: must administer with a meal/food phenazopyridine [Pyridium] 100 mg tablet 100 mg PO TID PRN (Reason: pain) Qty: 6 0RF sennosides [senna] 8.6 mg tablet 8.6 mg PO BEDTIME Qty: 14 0RF docusate sodium [Colace] 100 mg capsule 100 mg PO BID Qty: 20 0RF docusate sodium [Colace] 100 mg capsule 100 mg PO BID PRN (Reason: Constipation) Qty: 14 0RF ondansetron 4 mg tablet,disintegrating 4 mg PO Q6H Qty: 14 0RF nitrofurantoin monohyd/m-cryst [Macrobid] 100 mg capsule 100 mg PO BID 7 Days Qty: 14 0RF Rx Instructions: must administer with a meal/food cephalexin 500 mg capsule 500 mg PO Q8H 7 Days Qty: 21 0RF phenazopyridine [Pyridium] 200 mg tablet 200 mg PO TID PRN (Reason: pain) Qty: 6 0RF ondansetron 4 mg tablet,disintegrating 4 mg PO Q8H PRN (Reason: nausea and vomiting) Qty: 10 0RF cephalexin 500 mg capsule 500 mg PO BID Qty: 14 0RF ondansetron HCl 4 mg tablet 4 mg PO Q8H PRN (Reason: nausea and vomiting) Qty: 10 0RF tamsulosin [Flomax] 0.4 mg capsule 0.4 mg PO DAILY Qty: 6 0RF oxycodone 5 mg tablet 5 mg PO Q6H PRN (Reason: pain, moderate) Qty: 10 0RF Rx Instructions: Partial Fill upon patient request. ondansetron 4 mg tablet,disintegrating 4 mg PO Q8H PRN (Reason: nausea and vomiting) Qty: 10 0RF dicyclomine 10 mg capsule 10 mg PO BID Qty: 14 0RF cefuroxime axetil 250 mg tablet 250 mg PO BID 7 Days Qty: 14 0RF ondansetron 4 mg tablet,disintegrating 4 mg PO Q8H PRN (Reason: nausea and vomiting) Qty: 7 0RF tamsulosin [Flomax] 0.4 mg capsule 0.4 mg PO BEDTIME Qty: 14 0RF oxycodone 5 mg tablet 5 mg PO Q8H PRN (Reason: severe pain (scale score 7-10)) Qty: 9 0RF Rx Instructions: Partial Fill upon patient request. cefdinir 300 mg capsule 300 mg PO BID 5 Days Qty: 10 0RF acetaminophen [Tylenol] 325 mg capsule 650 mg PO Q6H PRN (Reason: pain) Qty: 30 0RF Referrals: Amber Quiroz MD [Physician] - (Possible UTI, multiple ER visits) Interventions: ED Discharge Assessment Last Done: 11/19/24 06:42 Discharge Date/Time: 11/19/24 06:46 Print Language: Qatari
[2024-11-19 06:02] LABS: MANUAL DIFF FLAG NO
[2024-11-19 06:03] LABS: Basophils Percent Auto 0.6 % (0-2); Eosinophils Absolute Auto 0.1 X10*3/uL (0.0-0.4); Eosinophils Percent Auto 1.9 % (0-4); Hematocrit 35.2 % (37.0-47.0); Hemoglobin 11.3 g/dl (12.0-16.0); Imm Gran Abs Auto 0.01 X10*3/uL (0.00-0.03); Imm Gran Pct Auto 0.2 % (0.0-0.4); Lymphocytes Absolute Auto 1.7 X10*3/uL (1.2-4.9); Lymphocytes Percent Auto 31.8 % (20-40); Mean Corpuscular HGB Conc 32.1 g/dl (31.0-35.0); Mean Corpuscular Volume 84.2 fL (80.0-98.0); Mean Platelet Volume 9.7 fL (9.4-12.3); Monocytes Absolute Auto 0.4 X10*3/uL (0.1-1.2); Monocytes Percent Auto 7.9 % (2-11); Neutrophils Absolute Auto 3.1 x10*3/uL (2.0-8.3); Neutrophils Percent Auto 57.6 % (45-73); Platelet Count 271 X10*3/uL (160-400); Red Blood Count 4.18 X10*6/uL (4.20-5.50); Red Cell Distribution Width 15.4 % (11.0-16.0); White Blood Count 5.3 X10*3/uL (4.8-10.8)
[2024-11-19 06:13] LABS: Appearance Urine Cloudy; Color Urine Yellow; Glucose Urine UA Negative (Negative); Leukocyte Esterase Urine Large (3+) (Negative); Nitrite Urine Negative (Negative); PH 6.5 (5.0-9.0); Specific Gravity - Urine 1.025 (1.005-1.025); UMIC TRIGGER UACC YES; Urine Blood Small (1+) (Negative); Urine Ketones Trace mg/dL (Negative); Urine Protein 30 (1+) mg/dL (Neg-Trace)
[2024-11-19 06:18] LABS: Bacteria Urine 1+ (None Seen); UACC Culture Trigger YES; WBC Urine >50 /HPF (0-5)
[2024-11-19 06:22] LABS: Alanine Aminotransferase 26 U/L (0-31); Alkaline Phosphatase 103 U/L (39-117); Anion Gap 14 (12-20); Aspartate Amino Transferase 38 U/L (5-31); Bilirubin Direct < 0.2 mg/dL (0.0-0.5); Bilirubin Total 0.2 mg/dL (0.0-1.0); Blood Urea Nitrogen 17 mg/dL (9-16); C Reactive Protein < 0.10 mg/dL (< or = 0.50); Calcium 8.9 mg/dL (8.4-10.2); Carbon Dioxide 23 mmol/L (22-29); Chloride 110 mmol/L (96-108); Creatinine Clr Calc Pharmacy 76.8; Estimated Glomerular Filt Rate > 60; Ethanol < 10 mg/dL; Glucose Random 107 mg/dL (60-115); Lipase 29 U/L (8-78); Potassium 4.6 mmol/L (3.3-5.1); Sodium 142 mmol/L (135-145); Total Protein 7.1 g/dL (6.5-8.0)
[2024-11-19] MEDS: Phenazopyridine HCL 200 MG TABLET PO (06:34)
[2024-11-19] MEDS: cephALEXin 500 MG CAPSULE PO (06:35)
[2024-11-19] MEDS: Ondansetron ODT 4 MG TAB.RAPDIS TRANSLINGU (06:35)
[2024-11-19 06:42] VITALS: BP 160/81; PULSE 78; RESP 16; TEMP 37; O2SAT 94
--- OUTSIDE RECORDS SUMMARY | 2024-11-19 06:42 | XMS_ITS | Encounter Summary ---
Author Organization [facility] Address [address] [place] [address] Care Team Providers Care Community Health Nurse Supervisor Name Role Phone Physician, No Pcp Primary Care Provider Unavaila ble Encounter Details Date Type Department Care Team (Late st Contact Info) Description 09/25/2024 Lab Requisition [facility] Main Lab [address] [facility] [place] [address] Zachery Chi PA [address] [place] [address] Calculus of ureter Social History [...] Assessment Author No 08/21/2024 3:20 PM Lynn Masno RN documented as of this encounter Mental [...] LAB CHEMISTRY METHOD 09/25/2024 7:10 PM EDT [facility] Blood Venous blood specimen / Unknown 09/25/2024 3:15 PM EDT 09/25/2024 6:18 PM EDT us Zachery Chi PA LAB BLOOD ORDERABLES Final Res ult [facility] [address] [place] [address], documented in this encounter Visit Diagnoses Diagnosis Calculus of ureter documented in this encounter Care Teams Community Health Nurse Supervisor Relationship Specialty Start Date End Date Physician, No Pcp PCP - General 08/21/24 documented as of this encounter
--- OUTSIDE RECORDS SUMMARY | 2024-11-19 06:43 | XMS_ITS | Encounter Summary ---
Author Organization [employer] Address [address] [facility] [address] [address] [place] [address] Care Team Providers Care Facility Worker Name Role Phone Amber Quiroz MD Primary Care Provider [phone] Encounter Details Date Type Department Care Team ([facility] st Contact Info) Description 11/15/2024 Telephone [facility] MEDICINE [address] [place], [place] [phone] Kian Sevilla, PharmD [address] [place], [place] [phone] Social History Tobacco Use Types Packs/Day Years [...] Description 12/04/2024 2:00 PM EDT Clinical Support [facility] MEDICINE [address] [place] [address] documented as of this encounter Visit Diagnoses Not on filedocumented in this encounter Care Teams Facility Worker Relationship Specialty Start Date End Date Amber Quiroz MD [address] [place] [address] PCP - General Family Medicine 07/03/18 documented as of this encounter
--- OUTSIDE RECORDS SUMMARY | 2024-11-19 06:43 | XMS_ITS | Encounter Summary ---
Author Organization [email or web address] Address [address] [facility] 7 [place] [address] Care Team Providers Care Assembly Repairer Name Role Phone Amber Quiroz MD Primary Care Provider [phone] Reason for Visit * Reason Onset Date Comments Nurse Triage 01/11/2024 Encounter Details Date Type Department Care Team ([facility] st Contact Info) Description 01/11/2024 Telephone [facility] MEDICINE [address] [place], [place] [phone] Amber Quiroz MD [address] [place], [place] [phone] Nurse Triage Social History Tobacco Use Types [...] t he electric, gas, oil or water [employer] threatened to shut off services in your [...] HDF appt tomorrow at 1030am with García TRANSFER STATION ATTENDANT. RX updated with pending HDF. Team tasked that if medication available from PCP for overnight use [facility] * Telephone Encounter - Lacy Sahni LPN - 01/11/2024 3:31 PM EDT Triage in process. Patient requesting pain medication for kidney stone pain in [facility] 01/07/24-01/08/24. Patient not seeing any stones [...] worse Override Notes: Seen and treated at [facility] known kidney stones wants something for [...] 2:00 PM EDT Clinical Support [facility] MEDICINE [address] [place] [phone] documented as of this encounter Visit Diagnoses Not on filedocumented in this encounter Care Teams Assembly Repairer Relationship Specialty Start Date End Date Amber Quiroz MD [address] [place] [address] PCP - General Family Medicine 07/03/18 documented as of this encounter
--- OUTSIDE RECORDS SUMMARY | 2024-11-19 06:43 | XMS_ITS | Encounter Summary ---
Author Organization [email or web address] Address [address] [place] [address] 7 [place] [address] Care Team Providers Care Tobacco Stripper Name Role Phone Amber Quiroz MD Primary Care Provider [phone] Reason for Visit * Reason Comments Med Refill Encounter Details Date Type Department Care Team (Late st Contact Info) Description 04/26/2023 Refill [facility] MEDICINE [address] [place] [address] [phone] Amber Quiroz MD [address] [place] [address] [phone] Nausea Social History Tobacco Use Types Packs/Day [...] 12/04/2024 2:00 PM EDT Clinical Support [facility] MEDICINE [address] [place] [address] [phone] documented as of this encounter Visit Diagnoses Diagnosis Nausea Nausea alone documented in this encounter Care Teams Tobacco Stripper Relationship Specialty Start Date End Date Amber Quiroz MD [address] [place] [address] [phone] PCP - General Family Medicine 1/1/19 documented as of this encounter
--- OUTSIDE RECORDS SUMMARY | 2024-11-19 06:43 | XMS_ITS | Encounter Summary ---
Author Organization [employer] Address [address] [facility] 7 [place] [address] Care Team Providers Care Data Processing Equipment Repairer Name Role Phone Amber Quiroz MD Primary Care Provider [phone] Reason for Visit * Reason Onset Date Comments Care Management 11/05/2024 C3CM- initial as sessment/ enrollment. Encounter Details Date Type Department Care Team ([facility] st Contact Info) Description 11/05/2024 Telephone [facility] MEDICINE [address] [place], [place] [phone] Amber Quiroz MD [address] [place] [address] Care Management (C3CM- initial assessment/ enrollment.) Social [...] t he electric, gas, oil or water [id number] threatened to shut off services in your [...] SDOH needs. * Telephone Encounter - Marixa rEic RN - 11/05/2024 7:46 PM EDT MARIE [...] and dental. She was recently seen by [facility] Optometry and states she was prescribed glasses. 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 She states she filled out the application [...] understanding, and able to repeat back to director underwriter sales. A follow up call will be placed within 10 days, patient agrees with plan. documented in this encounter Plan of Treatment Upcoming Encounters Date Type Department Care Team (Late st Contact Info) Description 12/04/2024 2:00 PM EDT Clinical Support [facility] MEDICINE [address] [place] [address] documented as of this encounter Visit Diagnoses Not on filedocumented in this encounter Care Teams Data Processing Equipment Repairer Relationship Specialty Start Date End Date Amber Quiroz MD [address] [place] [address] PCP - General Family Medicine 07/03/18 documented as of this encounter
--- OUTSIDE RECORDS SUMMARY | 2024-11-19 06:43 | XMS_ITS | Encounter Summary ---
Author Organization [employer] Address [address] [place] [address] 7 [place] [address] Care Team Providers Care Ocean Export Account Manager Name Role Phone Amber Quiroz MD Primary Care Provider [phone] Reason for Visit * Reason Comments Med Refill Encounter Details Date Type Department Care Team (Late st Contact Info) Description 04/26/2023 Refill [facility] MEDICINE [address] [place] [address] [phone] Alan Partida MD [address] [place] [phone] Moderate persistent asthma without complication; Nausea Social [...] Description 12/04/2024 2:00 PM EDT Clinical Support [facility] MEDICINE [address] [place] [address] [phone] documented as of this encounter Visit Diagnoses Diagnosis Moderate persistent asthma without complication Nausea Nausea alone documented in this encounter Care Teams Ocean [employer] Account Manager Relationship Specialty Start Date End Date Amber Quiroz MD [address] [place] [address] [phone] PCP - General Family Medicine 07/03/18 documented as of this encounter
--- OUTSIDE RECORDS SUMMARY | 2024-11-19 06:43 | XMS_ITS | Encounter Summary ---
Author Organization [employer] Address [address] [place] [address] 7 [place] [address] Care Team Providers Care Trial Judge Name Role Phone Amber Quiroz MD Primary Care Provider [phone] Encounter Details Date Type Department Care Team (Late st Contact Info) Description 12/12/2022 Orders Only [facility] MEDICINE [address] [place] [phone] Anabell Martinez LPN Social History Tobacco Use [...] 2:00 PM EDT Clinical Support [facility] MEDICINE [address] [place] [phone] documented as of this encounter Visit Diagnoses Not on filedocumented in this encounter Care Teams Trial Judge Relationship Specialty Start Date End Date Amber Quiroz MD [address] [place] [phone] PCP - General Family Medicine 07/03/18 documented as of this encounter
--- OUTSIDE RECORDS SUMMARY | 2024-11-19 06:43 | XMS_ITS | Encounter Summary ---
Author Organization [employer] Address [address] [facility] 7 [place] [address] Care Team Providers Care Wet Process Miller Head Name Role Phone Amber Quiroz MD Primary Care Provider Encounter Details Date Type Department Care Team (Late st Contact Info) Description 04/05/2023 Orders Only [facility] MED & PEDS [address] [place] [address] Anabell Martinez LPN Social History Tobacco Use [...] Clinical Support [facility] MEDICINE [address] [place] [address] documented as of this encounter Visit Diagnoses Not on filedocumented in this encounter Care Teams Wet Process Miller Head Relationship Specialty Start Date End Date Amber Quiroz MD [address] [place] [address] PCP - General Family Medicine 07/03/18 documented as of this encounter
--- OUTSIDE RECORDS SUMMARY | 2024-11-19 06:43 | XMS_ITS | Encounter Summary ---
Author Organization [employer] Address 75 [facility] 7t [place] [address] Care Team Providers Care Continuous Pickling Line Pickler Name Role Phone Amber Quiroz MD Primary Care Provider Encounter Details Date Type Department Care Team (Late st Contact Info) Description 07/28/2022 Orders Only [facility] MEDICINE [address] [place] [address] [phone] Anabell Martinez LPN Social History Tobacco Use [...] 2:00 PM EDT Clinical Support [facility] MEDICINE [address] [place] [phone] documented as of this encounter Procedures Procedure [...] (08/02/2022 12:29 AM EST) Color Urine Yellow [facility] Appearance Urine Turbid [facility] PH 6.5 5.0 - 9.0 [facility] Glucose Urine UA Negative Negative mg/dL [facility] Urine Blood Trace(A) Negative [facility] Specific Chilo - Urine 1.020 1.005 - 1.025 [facility] Urine Protein 30 (1+)(A) Neg-Trace mg/dL [facility] Urine Ketones Negative Negative mg/dL [facility] Nitrite Urine Negative Negative [facility] Leukocyte Esterase Urine Large (3+)(A) Negative [facility] RBC Urine 0-2 0 - 2 /HPF [facility] Urine WBC >50(A) 0 - 5 /HPF [facility] Urine Squamous Epithelial Cell 6-10 0 - 2 /HPF [facility] Urine Bacteria 1+ None Seen [facility] Hyaline Casts, Urine 3-5 0 - 2 /LPF [facility] 08/02/2022 12:2 9 AM EST 08/02/2022 12:31 AM EST Narrative [facility] - 08/02/2022 12:50 AM EST Urine, Clean Catch us [facility] External Provider LAB URI NE ORDERABLES Final Result [facility] [address] [place] [phone] * SARS-CoV-2 RNA, Influenza A/B, and RSV RNA, Ql NAAT (08/02/2022 12:17 AM EST) Influenza A PCR NEGATIVE Negative [facility] Influenza B PCR NEGATIVE Negative [facility] Resp Syncy Virus RNA Qual PCR NEGATIVE Negative [facility] SARS COV2 PCR NEGATIVE Negative [facility] SARS/Flu/RSV Note See Note [facility] Comment:All test results mus t [...] use by authorized laboratories.Testing performed on the [employer] GeneXpert utilizingreal-time RT-PCR.All SARS CoV2 and positive influenza A/B results arereported to [facility]. 08/02/2022 12:1 7 AM EST 08/02/2022 12:19 AM EST us [facility] Exter nal Provider LAB MICROBIOLOGY - GENERAL ORDERABLES Final Result [facility] [address] [place] [phone] * (ABNORMAL) Basic Metabolic Panel (08/02/2022 12:17 AM EST) Pathologist [facility] Sodium 140 135 - 145 mmol/L [facility] Potassium 3.9 3.3 - 5.1 mmol/L [facility] Chloride 105 96 - 108 mmol/L [facility] Carbon Dioxide 24 22 - 29 mmol/L [facility] Anion Gap 15 12 - 20 [facility] Urea Nitrogen (BUN) 14 9 - 16 mg/dL [facility] Creatinine, Serum 0.75 0.5 - 1.4 mg/dL [facility] Creatinine Clr Calc Pharmacy 71.4 [facility] Comment:Provided height and weight: 162.56 cm,63.503 kg.eGFR (calculated from the MDRD study equation) and eCrCl(calculated from the Cockcroft-Gault equation) are based ondifferent parameters and may not yield comparable results.If eCrCl result is absurd, please check patient'sheight/weight. Estimated Glomerular Filt Rate >60 [facility] Comment:NOTE: For -Am erican individuals, multiply the result by 1.210.Chronic Kidney Disease: Estimated GFR < 60 mL/min/[id number] Kidney Disease: Estimated GFR < 15 mL/min/1.73m2 Glucose 119(H) 60 - 115 mg/dL [facility] Calcium 9.0 8.4 - 10.2 mg/dL [facility] 08/02/2022 12:1 7 AM EST 08/02/2022 12:19 AM EST [facility] External Provider LAB BLO OD ORDERABLES Final Result [facility] [address] [place] [phone] * (ABNORMAL) CBC auto differential (08/02/2022 12:17 AM EST) White Blood Count 6.4 4.8 - 10.8 X10*3/uL [facility] Red Blood Count 3.96(L) 4.20 - 5.50 X10*6/uL [facility] Hemoglobin 10.8(L) 12.0 - 16.0 g/dl [facility] Hematocrit 33.0(L) 37.0 - 47.0 % [facility] Mean Corpuscular Volume 83.3 80.0 - 98.0 fL [facility] Mean Corpuscular Hemoglobin 27.3 27.0 - 33.0 pg [facility] Mean Corpuscular HGB Conc 32.7 31.0 - 35.0 g/dl [facility] Red Cell Distribution Width 14.2 11.0 - 16.0 % [facility] Platelet Count 202 160 - 400 X10*3/uL [facility] Mean Platelet Volume 9.2(L) 9.4 - 12.3 fL [facility] Neutrophils Percent Auto 68.5 45 - 73 % [facility] Imm Gran Pct Auto 0.2 0.0 - 0.4 % [facility] Lymphocytes Percent Auto 21.9 20 - 40 % [facility] Monocytes Percent Auto 8.6 2 - 11 % [facility] Eosinophils Percent Auto 0.5 0 - 4 % [facility] Basophils Percent Auto 0.3 0 - 2 % [facility] NRBC Pct Auto 0.0 0.0 - 0.2 /100WBC [facility] Neutrophils Absolute Auto 4.4 2.0 - 8.3 x10*3/uL [facility] Imm Gran Abs Auto 0.01 0.00 - 0.03 X10*3/uL [facility] Lymphocytes Absolute Auto 1.4 1.2 - 4.9 X10*3/uL [facility] Monocytes Absolute Auto 0.6 0.1 - 1.2 X10*3/uL [facility] Eosinophils Absolute Auto 0.0 0.0 - 0.4 X10*3/uL [facility] Basophils Absolute Auto 0.0 0.0 - 0.2 X10*3/uL [facility] NRBC Abs Auto 0.000 0.0 - 0.012 X10*3/uL [facility] 08/02/2022 12:1 7 AM EST 08/02/2022 12:19 AM EST us [facility] External Provider LAB BLO OD ORDERABLES Final Result [facility] [address] [place] [address] [phone] * Culture, Urine, Routine (08/02/2022 12:00 AM EST) 08/02/2022 08/02/2022 7:3 1 AM EST Comment:UACC Narrative [facility] - 08/03/2022 9:19 AM EST Urine Culture No growth. Specimen Source: Urine clean catch us [facility] Exter nal Provider LAB MICROBIOLOGY - GENERAL ORDERABLES Final Result [facility] [address] [place] [phone] documented in this encounter Visit Diagnoses Not on filedocumented in this encounter Care Teams Continuous Pickling Line Pickler Relationship Specialty Start Date End Date Amber Quiroz MD [address] [place] [phone] PCP - General Family Medicine 07/03/18 documented as of this encounter
--- OUTSIDE RECORDS SUMMARY | 2024-11-19 06:43 | XMS_ITS | Encounter Summary ---
Author Organization [employer] Address [address] [facility] 7 [place] [address] Care Team Providers Care Brush Fabrication Supervisor Name Role Phone Amber Quiroz MD Primary Care Provider [phone] Reason for Visit * Reason Onset Date Comments Med Refill 11/18/2024 Encounter Details Date Type Department Care Team ([facility] st Contact Info) Description 11/18/2024 Telephone [facility] MEDICINE [address] [place], [place] [phone] Amber Quiroz MD [address] [place], [place] [phone] Med Refill Social History Tobacco Use Types [...] * Telephone Encounter - Rhona Iyer - 11/18/2024 9:04 AM EDT Pt walked in requesting refill on tramadol . Pt has been coming for about 2 weeks now , and Is stating she has not got anything . documented in this encounter Plan of Treatment Upcoming Encounters Date Type Department Care Team (Late st Contact Info) Description 12/04/2024 2:00 PM EDT Clinical Support [facility] MEDICINE [address] [place] [address] documented as of this encounter Visit Diagnoses Not on filedocumented in this encounter Care Teams Brush Fabrication Supervisor Relationship Specialty Start Date End Date Amber Quiroz MD [address] [place] [address] PCP - General Family Medicine 07/03/18 documented as of this encounter
--- OUTSIDE RECORDS SUMMARY | 2024-11-19 06:43 | XMS_ITS | Encounter Summary ---
Author Organization [employer] Address [address] [facility] 7 [place] [address] Care Team Providers Care Director Of Marketing Name Role Phone Amber Quiroz MD Primary Care Provider [phone] Reason for Visit * Reason Comments Med Refill Encounter Details Date Type Department Care Team ([facility] st Contact Info) Description 06/01/2023 Refill [facility] MEDICINE [address] [place], [place] [phone] Amber Quiroz MD [address] [place], [place] [phone] Pain Social History Tobacco Use Types Packs/Day [...] the past 12 months, has t he [employer], oil or water company threatened to shut [...] Description 12/04/2024 2:00 PM EDT Clinical Support [facility] MEDICINE [address] [place] [address] documented as of this encounter Visit Diagnoses Diagnosis Pain Generalized pain documented in this encounter Care Teams Director Of Marketing Relationship Specialty Start Date End Date Amber Quiroz MD [address] [place] [phone] PCP - General Family Medicine 07/03/18 documented as of this encounter
--- OUTSIDE RECORDS SUMMARY | 2024-11-19 06:43 | XMS_ITS | Encounter Summary ---
Author Organization [employer] Address [address] [facility] [address] 7[address] [place] [address] Care Team Providers Care Briefcase Sewer Name Role Phone Amber Quiroz MD Primary Care Provider [phone] Reason for Visit * Reason Comments Med Refill Encounter Details Date Type Department Care Team (Late st Contact Info) Description 11/18/2024 Refill [facility] CH[facility] MED & PEDS [address] [place], [place] [phone] Amber Quiroz MD [address] [place], [place] [phone] Nephrolithiasis Social History Tobacco Use Types Packs/Day [...] Description 12/04/2024 2:00 PM EDT Clinical Support [facility] MEDICINE [address] [place] [address] documented as of this encounter Visit Diagnoses Diagnosis Nephrolithiasis Calculus of kidney documented in this encounter Care Teams Briefcase Sewer Relationship Specialty Start Date End Date Amber Quiroz MD [address] [place] [address] PCP - General Family Medicine 07/03/18 documented as of this encounter
--- OUTSIDE RECORDS SUMMARY | 2024-11-19 06:43 | XMS_ITS | Encounter Summary ---
Author Organization [employer] Address 75 [facility] 7 [place] [address] Care Team Providers Care Lead Javascript Developer Name Role Phone Amber Quiroz MD Primary Care Provider [phone] Encounter Details Date Type Department Care Team ([facility] st Contact Info) Description 12/12/2023 Orders Only [facility] MEDICINE [address] [place], [place] [phone] Amber Quiroz MD [address] [place], [place] [phone] Nephrolithiasis (Primary Dx) Social History Tobacco Use [...] Description 12/04/2024 2:00 PM EDT Clinical Support [facility] MEDICINE [address] [place] [address] documented as of this encounter Visit Diagnoses Diagnosis Nephrolithiasis- Primary Calculus of kidney documented in this encounter Care Teams Lead Javascript Developer Relationship Specialty Start Date End Date Amber Quiroz MD [address] [place] [address] PCP - General Family Medicine 07/03/18 documented as of this encounter
--- OUTSIDE RECORDS SUMMARY | 2024-11-19 06:43 | XMS_ITS | Encounter Summary ---
Author Organization [employer] Address 75 [facility] 7 [place] [address] Care Team Providers Care Vat Packer Name Role Phone Amber Quiroz MD Primary Care Provider [phone] Reason for Visit * Reason Onset Date Comments Appointment Request 11/22/2023 Encounter Details Date Type Department Care Team ([facility] st Contact Info) Description 11/22/2023 Telephone [facility] MEDICINE [address] [place], [place] [phone] Amber Quiroz MD [address] [place], [place] [phone] Appointment Request Social History Tobacco Use Types [...] due tosleep difficulty. Please contact pt at [phone]. documented in this encounter Plan of Treatment Upcoming Encounters Date Type Department Care Team (Late st Contact Info) Description 12/04/2024 2:00 PM EDT Clinical Support [facility] MEDICINE [address] [place] [address] documented as of this encounter Visit Diagnoses Not on filedocumented in this encounter Care Teams Vat Packer Relationship Specialty Start Date End Date Amber Quiroz MD [address] [place] [address] PCP - General Family Medicine 07/03/18 documented as of this encounter
--- OUTSIDE RECORDS SUMMARY | 2024-11-19 06:43 | XMS_ITS | Encounter Summary ---
Author Organization [employer] Address 75 [facility] 7t [place] [address] Care Team Providers Care Chief Drafter Name Role Phone Amber Quiroz MD Primary Care Provider [phone] Encounter Details Date Type Department Care Team ([facility] st Contact Info) Description 11/24/2023 Telephone [facility] [address] [place] [address] Amber Quiroz MD [address] [place], [place] [phone] Social History Tobacco Use Types Packs/Day Years [...] 2:00 PM EDT Clinical Support [facility] [address] [place] [address] documented as of this encounter Visit Diagnoses Not on filedocumented in this encounter Care Teams Chief Drafter Relationship Specialty Start Date End Date Amber Quiroz MD [address] [place] [address] PCP - General Family Medicine 07/03/18 documented as of this encounter
--- OUTSIDE RECORDS SUMMARY | 2024-11-19 06:43 | XMS_ITS | Encounter Summary ---
Author Organization [employer] Address 75 [facility] 7 [place] [address] Care Team Providers Care Head Tennis Professional Name Role Phone Amber Quiroz MD Primary Care Provider [phone] Reason for Visit * Reason Onset Date Comments status of oral surgery appt 11/11/2024 Encounter Details Date Type Department Care Team ([facility] st Contact Info) Description 11/11/2024 Telephone [facility] ADULT DENTAL [address] [place] [address] Francisco Mohan, DMD [address] [place] [place], [place] [phone] status of oral surgery appt Social History [...] t he electric, gas, oil or water [employer] threatened to shut off services in your [...] Description 12/04/2024 2:00 PM EDT Clinical Support [facility] MEDICINE [address] [place] [address] documented as of this encounter Visit Diagnoses Not on filedocumented in this encounter Care Teams Head Tennis Professional Relationship Specialty Start Date End Date Amber Quiroz MD [address] [place] [address] PCP - General Family Medicine 07/03/18 documented as of this encounter
--- OUTSIDE RECORDS SUMMARY | 2024-11-19 06:43 | XMS_ITS | Encounter Summary ---
Author Organization [employer] Address [address] [facility] [facility] [address] 7t [place] [address] Care Team Providers Care Promotions Officer Name Role Phone Amber Quiroz MD Primary Care Provider [phone] Encounter Details Date Type Department Care Team [...] PM EDT Clinical Support [facility] [address] [place] [address] documented as of this encounter Procedures Procedure [...] EDT Narrative 11/14/2024 8:16 AM EDT ? [facility] ?[address] ?[place] [address] ?XRay Report ? Signed ? Patient: Marquez,Zelidez ?MR#: [id number] ?? 760 ? : 1965 ?Acct:[id number] ? Age/Sex: 58 / F ?ADM Date: 05/15/25 ? Loc: HO.ED ? Attending Dr: ? Ordering Physician: Bobby Ham MD ?? Date of Service: 11/14/24 ?? Procedure(s): XR chest 1V ?? Accession Number(s): [id number] ? cc: Bobby Ham MD; Amber Quiroz [...] DD/ 0754 ? TD/TT: 11/14/24 0800 ? Cattle Farmer: ? Procedure Note Nisha Biswas - 11/18/[address] [address] XRay Report Signed Patient: Heidi Marquez#: [id number] 760 : 1965Acct:[id number] Age/Sex: 58 / FADM Date: 11/14/24 Loc: HO.ED Attending Dr: Ordering Physician: Bobby Ham MD Date of Service: 11/14/24 Procedure(s): XR chest 1V Accession Number(s): [id number] cc: Bobby Ham MD; Amber Quiroz MD [...] 11/14/24 0814 DD/ 0754 TD/TT: 11/14/24 0800 Cattle Farmer: [facility] External Provider IMG XR PROCEDURES Edited Result - Final * High Sensitivity Troponin I (11/14/2024 7:49 AM EDT) [facility] TROPONIN I HIGH SENSITIVITY <2.7 <3.5 - 17.0 ng/L [facility] Comment:The [place] high sens itivity Troponin-I results should beused in conjunction with other diagnostic information suchas ECG, clinical observations and information, and patientsymptoms to aid in the diagnosis of SD. 11/14/2024 7:49 AM EDT 11/14/2024 7:51 AM EDT Generic External Data Provider LAB BLOOD ORDERAB LES Final Result Performing Organization Address [facility] Co de Phone Number [facility] [address] [place] [address] [phone] * D Dimer High Sensitivity (11/14/2024 7:49 AM EDT) [facility] D Dimer High Sensitivity 231 NG/ML [facility] Comment:D-DIMER HS REFERENCE RANGENote: Our [...] Provider LAB BLOOD ORDERAB LES Final Result [facility] [address] [place] [address] [phone] * High Sensitivity Troponin I (11/14/2024 5:36 AM EDT) Pathologist [facility] TROPONIN I HIGH SENSITIVITY <2.7 <3.5 - 17.0 ng/L [facility] Comment:The [place] high sens itivity Troponin-I results should beused in conjunction with other diagnostic information suchas ECG, clinical observations and information, and patientsymptoms to aid in the diagnosis of SD. 11/14/2024 5:36 AM EDT 11/14/2024 5:40 AM EDT us Generic External Data Provider LAB BLOOD ORDERAB LES Final Result [facility] [address] [place] [address] [phone] * (ABNORMAL) Comprehensive Metabolic Panel (11/14/2024 5:36 AM EDT) [facility] Sodium 143 135 - 145 mmol/L [facility] Potassium 3.8 3.3 - 5.1 mmol/L [facility] Chloride 110(H) 96 - 108 mmol/L [facility] Carbon Dioxide 23 22 - 29 mmol/L [facility] Anion Gap 14 12 - 20 [facility] Urea Nitrogen (BUN) 16 9 - 16 mg/dL [facility] Creatinine, Serum 0.64 0.5 - 1.4 mg/dL [facility] Creatinine Clr Calc Pharmacy 66.7 [facility] Comment:Provided height and weight: 154.94 cm,44.7 kg.eGFR (calculated from the MDRD study equation) and eCrCl(calculated from the Cockcroft-Gault equation) are based ondifferent parameters and may not yield comparable results.If eCrCl result is absurd, please check patient'sheight/weight. Estimated Glomerular Filt Rate >60 [facility] Comment:Chronic Kidney Disea se: Estimated GFR < 60 mL/min/1.75i7Mujvmd Kidney Disease: Estimated GFR < 15 mL/min/1.73m2 Glucose 97 60 - 115 mg/dL [facility] Calcium 9.3 8.4 - 10.2 mg/dL [facility] Bilirubin, Total 0.3 0.0 - 1.0 mg/dL [facility] Aspartate Amino Transferase 44(H) 5 - 31 U/L [facility] Alanine Aminotransferase 37(H) 0 - 31 U/L [facility] Total Protein 7.5 6.5 - 8.0 g/dL [facility] Albumin Level 4.4 3.5 - 5.0 g/dL [facility] Alkaline Phosphatase 107 39 - 117 U/L [facility] 11/14/2024 5:36 AM EDT 11/14/2024 5:40 AM EDT us Generic External Data Provider LAB BLOOD ORDERAB LES Final Result [facility] [address] [place] [phone] * CBC auto differential (11/14/2024 5:36 AM EDT) White Blood Count 5.3 4.8 - 10.8 X10*3/uL [facility] Red Blood Count 4.52 4.20 - 5.50 X10*6/uL [facility] Hemoglobin 12.4 12.0 - 16.0 g/dl [facility] Hematocrit 37.7 37.0 - 47.0 % [facility] Mean Corpuscular Volume 83.4 80.0 - 98.0 fL [facility] Mean Corpuscular Hemoglobin 27.4 27.0 - 33.0 pg [facility] Mean Corpuscular HGB Conc 32.9 31.0 - 35.0 g/dl [facility] Red Cell Distribution Width 15.2 11.0 - 16.0 % [facility] Platelet Count 270 160 - 400 X10*3/uL [facility] Mean Platelet Volume 9.5 9.4 - 12.3 fL [facility] Neutrophils Percent Auto 57.0 45 - 73 % [facility] Imm Gran Pct Auto 0.0 0.0 - 0.4 % [facility] Lymphocytes Percent Auto 32.8 20 - 40 % [facility] Monocytes Percent Auto 7.9 2 - 11 % [facility] Eosinophils Percent Auto 2.1 0 - 4 % [facility] Basophils Percent Auto 0.2 0 - 2 % [facility] NRBC Pct Auto 0.0 0.0 - 0.2 /100WBC [facility] Neutrophils Absolute Auto 3.1 2.0 - 8.3 x10*3/uL [facility] Imm Gran Abs Auto 0.00 0.00 - 0.03 X10*3/uL [facility] Lymphocytes Absolute Auto 1.8 1.2 - 4.9 X10*3/uL [facility] Monocytes Absolute Auto 0.4 0.1 - 1.2 X10*3/uL [facility] Eosinophils Absolute Auto 0.1 0.0 - 0.4 X10*3/uL [facility] Basophils Absolute Auto 0.0 0.0 - 0.2 X10*3/uL [facility] NRBC Abs Auto 0.000 0.0 - 0.012 X10*3/uL [facility] 11/14/2024 5:36 AM EDT 11/14/2024 5:40 AM EDT us Generic External Data Provider LAB BLOOD ORDERAB LES Final Result [facility] [address] [place] [address] [phone] documented in this encounter Visit Diagnoses Not on filedocumented in this encounter Care Teams Promotions Officer Relationship Specialty Start Date End Date Amber Quiroz MD [address] [place] [address] PCP - General Family Medicine 07/03/18 documented as of this encounter
--- OUTSIDE RECORDS SUMMARY | 2024-11-19 06:43 | XMS_ITS | Encounter Summary ---
Author Organization [employer] Address [address] [facility] 7 [place] [address] Care Team Providers Care Ultrasonographer Name Role Phone Amber Quiroz MD Primary Care Provider [phone] Reason for Visit * Reason Comments Med Refill Encounter Details Date Type Department Care Team ([facility] st Contact Info) Description 11/12/2024 Refill [facility] [address] [place], [place] [phone] Amber Quiroz MD [address] [place], [place] [phone] Moderate persistent asthma without complication Social History [...] Description 12/04/2024 2:00 PM EDT Clinical Support [facility] [address] [place] [address] documented as of this encounter Visit Diagnoses Diagnosis Moderate persistent asthma without complication documented in this encounter Care Teams Ultrasonographer Relationship Specialty Start Date End Date Amber Quiroz MD [address] [place] [address] PCP - General Family Medicine 07/03/18 documented as of this encounter
--- OUTSIDE RECORDS SUMMARY | 2024-11-19 06:43 | XMS_ITS | Encounter Summary ---
Author Organization [employer] Address [address] [facility] 7 [place] [address] Care Team Providers Care Retail Operations Manager Name Role Phone Amber Quiroz MD Primary Care Provider [phone] Reason for Visit * Reason Comments Med Refill Encounter Details Date Type Department Care Team ([facility] st Contact Info) Description 11/29/2023 Refill [facility] [address] [place], [place] [phone] Charleen Latif MD [address] [place], [place] [phone] Nephrolithiasis Social History Tobacco Use Types Packs/Day [...] t he electric, gas, oil or water [email or web address] threatened to shut off services in your [...] Description 12/04/2024 2:00 PM EDT Clinical Support [facility] [address] [place] [address] documented as of this encounter Visit Diagnoses Diagnosis Nephrolithiasis Calculus of kidney documented in this encounter Care Teams Retail Operations Manager Relationship Specialty Start Date End Date Amber Quiroz MD [address] [place] [address] PCP - General Family Medicine 07/03/18 documented as of this encounter
--- OUTSIDE RECORDS SUMMARY | 2024-11-19 06:43 | XMS_ITS | Clinical Summary ---
Author Organization [facility] Address [address] [place] [address] Phone Care Team Providers Care Tile Edger Name Role Phone Physician, No Pcp Primary Care Provider Unavaila ble Allergies Active Allergy Reactions Criticality Noted Date Comments Aspirin Congestion of the throat 08/21/2024 Ibuprofen Swallowing Problem 08/21/2024 Acetaminophen Swallowing Problem 08/21/2024 Medications No known medications Active Problems No known active problems Encounters Date Type Department Care Team Description 09/25/2024 Lab Requisition [facility] - Main Lab [address] [facility] [place] [address] Zachery Chi, PA Calculus of ureter from Last 3 Months Social History Tobacco [...] EDT Calculus of ureter ECG ANNOTATED 08/22/2024 COMPREHENSIVE METABOLIC PANEL STAT 08/21/2024 3:50 PM EST from Last 3 Months or Most Recently Relevant to Health Maintenance Results * Parathyroid hormone intact (09/25/2024 3:15 PM EDT) PTH 31.1 18.5 - 88.0 pcg/mL LAB CHEMISTRY METHOD 09/25/2024 7:10 PM EDT [facility] Blood Venous blood specimen / Unknown 09/25/2024 3:15 PM EDT 09/25/2024 6:18 PM EDT Zachery LUO LAB BLOOD ORDERABLES Final Res ult [facility] [address] [place] [address], * ECG-Annotated (08/22/2024) us Provider Onbase ECG ORDERABLES Final Result * (ABNORMAL) Comprehensive metabolic panel (08/21/2024 3:50 PM EST) Sodium 144 133 - 145 mmol/L LAB CHEMISTRY METHOD 08/21/2024 4:26 PM EST [facility] Potassium 3.5 3.5 - 5.5 mmol/L LAB CHEMISTRY METHOD 08/21/2024 4:26 PM EST [facility] Chloride 113(H) 96 - 110 mmol/L LAB CHEMISTRY METHOD 08/21/2024 4:26 PM [facility] CO2 23 21 - 32 mmol/L LAB CHEMISTRY METHOD 08/21/2024 4:26 PM [facility] Anion Gap 8 3 - 11 LAB CHEMISTRY METHOD 08/21/2024 4:26 PM [facility] Glucose 108(H) 70 - 100 mg/dL LAB CHEMISTRY METHOD 08/21/2024 4:26 PM [facility] BUN 13 5 - 25 mg/dL LAB CHEMISTRY METHOD 08/21/2024 4:26 PM [facility] Creatinine 0.54 0.50 - 1.10 mg/dL LAB CHEMISTRY METHOD 08/21/2024 4:26 PM [facility] eGFR 106 >=60 mL/min/1. 73m2 LAB CHEMISTRY METHOD 08/21/2024 4:26 PM [facility] Comment:Calculation based on the??Chronic Kidney Disease Epidemiology Collaboration (CKD-EPI) equation refit??without adjustment for race. BUN/Creatinine Ratio 24.1 LAB CHEMISTRY METHOD 08/21/2024 4:26 PM [facility] Calcium 9.3 8.5 - 10.5 mg/dL LAB CHEMISTRY METHOD 08/21/2024 4:26 PM [facility] AST (SGOT) 27 10 - 42 unit/L LAB CHEMISTRY METHOD 08/21/2024 4:26 PM [facility] ALT (SGPT) 36 10 - 60 unit/L LAB CHEMISTRY METHOD 08/21/2024 4:26 PM [facility] Alkaline Phosphatase 109 42 - 121 unit/L LAB CHEMISTRY METHOD 08/21/2024 4:26 PM [facility] Total Protein 7.2 6.0 - 8.0 g/dL LAB CHEMISTRY METHOD 08/21/2024 4:26 PM [facility] Albumin 3.9 3.2 - [...] DO LAB BLOOD ORDERABLES Final Resu lt [facility]) [facility] [address] [place] [address], [place] [phone] from Last 3 Months or Most Recently Relevant to Health Maintenance Insurance MEDICAID - [place] Care Teams Tile Edger Relationship Specialty Start Date End Date Physician, No Pcp PCP - General 08/21/24
--- OUTSIDE RECORDS SUMMARY | 2024-11-19 06:43 | XMS_ITS | Encounter Summary ---
Author Organization [employer] Address [address] [facility] 7 [place] [address] Care Team Providers Care Ash Pit Worker Name Role Phone Amber Quiroz MD Primary Care Provider Reason for Visit * Reason Onset Date Comments Med Refill 01/10/2024 Encounter Details Date Type Department Care Team ([facility] st Contact Info) Description 01/10/2024 Telephone [facility] [address] [place], [place] [phone] Amber Quiroz MD [address] [place], [place] [phone] Med Refill Social History Tobacco Use Types [...] immediate release tablet To be sent to: [facility] - [place], [place] - [address] [place] [address] documented in this encounter Plan of Treatment Upcoming Encounters Date Type Department Care Team (Late st Contact Info) Description 12/04/2024 2:00 PM EDT Clinical Support [facility] [address] [place] [address] documented as of this encounter Visit Diagnoses Not on filedocumented in this encounter Care Teams Ash Pit Worker Relationship Specialty Start Date End Date Amber Quiroz MD [address] [place] [phone] PCP - General Family Medicine 07/03/18 documented as of this encounter
--- OUTSIDE RECORDS SUMMARY | 2024-11-19 06:43 | XMS_ITS | Encounter Summary ---
Author Organization [employer] Address [address] [place] [address] 7 [place] [address] Care Team Providers Care Barrel Burner Name Role Phone Amber Quiroz MD Primary Care Provider [phone] Encounter Details Date Type Department Care Team (Late st Contact Info) Description 11/16/2022 Abstract [facility] [address] [place], [place] [phone] Amber Quiroz MD [address] [place] [address] Social History Tobacco Use Types Packs/Day Years [...] Clinical Support [facility] [address] [place], [place] [phone] documented as of this encounter Visit Diagnoses Not on filedocumented in this encounter Care Teams Barrel Burner Relationship Specialty Start Date End Date Amber Quiroz MD [address] [place], [place] [phone] PCP - General Family Medicine 07/03/18 documented as of this encounter
--- OUTSIDE RECORDS SUMMARY | 2024-11-19 06:43 | XMS_ITS | Encounter Summary ---
Author Organization [employer] Address [address] [facility] 7t [place] [address] Care Team Providers Care Spinning Mule Tender Name Role Phone Amber Quiroz MD Primary Care Provider [phone] Encounter Details Date Type Department Care Team ([facility] st Contact Info) Description 09/04/2024 Orders Only [facility] [address] [place], [place] [phone] Amber Quiroz MD [address] [place], [place] [phone] Routine screening for STI (sexually transmitted infection) [...] t he electric, gas, oil or water [employer] threatened to shut off services in your [...] 2:00 PM EDT Clinical Support [facility] [address] [place] [phone] Scheduled Orders Name Type Priority Associated Diagnoses [...] disease documented in this encounter Care Teams Spinning Mule Tender Relationship Specialty Start Date End Date Amber Quiroz MD [address] [place] [phone] PCP - General Family Medicine 07/03/18 documented as of this encounter
--- OUTSIDE RECORDS SUMMARY | 2024-11-19 06:43 | XMS_ITS | Encounter Summary ---
Author Organization [facility] Address [address] [facility] [address] [place] [address] Care Team Providers Care Air Pollution Control Engineer Name Role Phone Amber Quiroz MD Primary Care Provider [phone] Encounter Details Date Type Department Care Team (Late st Contact Info) Description 11/15/2024 Orders Only [facility] External Provider, [facility] Social History Tobacco Use Types Packs/Day Years [...] Description 12/04/2024 2:00 PM EDT Clinical Support [address] [address] documented as of this encounter Procedures Procedure [...] 8:26 PM EDT 11/15/2024 8:26 PM EDT Comment:[facility] Narrative [facility] - 11/17/2024 9:02 AM EDT Urine Culture Report Result Urine Culture 50,000 to 100,000 cfu/ml Urine Culture Mixed bacterial geovanny characteristic of Urine Culture urogenital contamination. Specimen Source: Urine clean catch us Generic External Data Provider LAB MICROBIOLOGY - GENERAL ORDERABLES Final Result [facility] [address] [place] [address] [phone] * (ABNORMAL) Urinalysis, Complete, with Reflex to Culture (11/15/2024 7:57 PM EDT) Color Urine [place](A) [facility] Appearance Urine Cloudy [facility] PH 6.5 5.0 - 9.0 [facility] Glucose Urine UA Negative Negative mg/dL [facility] Urine Blood Large (3+)(A) Negative [facility] Specific [place] - Urine 1.025 1.005 - 1.025 [facility] Urine Protein 30 (1+)(A) Neg-Trace mg/dL [facility] Urine Ketones Negative Negative mg/dL [facility] Nitrite Urine Negative Negative [facility] Leukocyte Esterase Urine Small (1+)(A) Negative [facility] RBC Urine >20(A) 0 - 2 /HPF [facility] Urine WBC 6-10(A) 0 - 5 /HPF [facility] Urine Squamous Epithelial Cell 11-20 0 - 2 /HPF [facility] Urine Bacteria 3+ None Seen [facility] Hyaline Casts, Urine 0-2 0 - 2 /LPF [facility] 11/15/2024 7:57 PM EDT 11/15/2024 8:00 PM EDT Narrative [facility] - 11/15/2024 8:17 PM EDT [id number], Clean Catch us Generic External Data Provider LAB URINE ORDERAB LES Final Result Performing Organization Address [facility] Co de Phone Number [facility] [address] [place] [address] [phone] * US RENAL BI (11/15/2024 7:44 PM EDT) Anatomical Region Laterality Modality Abdomen Ultrasound 11/15/2024 7:44 PM EDT Narrative 11/15/2024 7:46 PM EDT ? [facility] ?[address] [facility] ?[place] [address] ? Ultrasound Report ? Signed ? Patient: Marquez,Zelidez ?MR#: [id number] ?? 760 ? : 1965 ?Acct:[id number] ? Age/Sex: 58 / F ?ADM Date: 05/16/25 ? Loc: HO.ED ? Attending Dr: ? Ordering Physician: Jonathan Burgos ?? Date of Service: 11/15/24 ?? Procedure(s): US renal BI ?? Accession Number(s): [id number] ? cc: Jonathan Burgos; Amber Quiroz MD [...] ? DD/ 43 ? TD/TT: 11/15/241943 ? Special Ed Assistant: ? Procedure Note Nisha Biswas - 11/18/2024 [place] [address] Ultrasound Report Signed Patient: Heidi Marquez#: [id number] : 1965Acct:[id number] Age/Sex: 58 / FADM Date: 11/15/24 Loc: HO.ED Attending Dr: Ordering Physician: Jonathan Burgos Date of Service: 11/15/24 Procedure(s): US renal BI Accession Number(s): [id number] cc: Jonathan Burgos; Amber Quiroz MD CLINICAL [...] in OV> 11/15/241944 DD/ 43 TD/TT: 11/15/241943 Special Ed Assistant: [facility] External Provider IMG US PROCEDURES Edited Result - Final documented in this encounter Visit Diagnoses Not on filedocumented in this encounter Care Teams Air Pollution Control Engineer Relationship Specialty Start Date End Date Amber Quiroz MD [address] [place] [phone] PCP - General Family Medicine 07/03/18 documented as of this encounter
--- OUTSIDE RECORDS SUMMARY | 2024-11-19 06:43 | XMS_ITS | Encounter Summary ---
Author Organization [employer] Address [address] [place] [address] Care Team Providers Care Plant Science Professor Name Role Phone Amber Quiroz MD Primary Care Provider [phone] Reason for Visit * Reason Onset Date Comments Care Management 11/15/2024 C3CM- f/u call Encounter Details Date Type Department Care Team (Late st Contact Info) Description 11/15/2024 Telephone [facility] [address], [place] [phone] Amber Quiroz MD [address] [employer], [place] [phone] Care Management (C3CM- f/u call) Social History [...] t he electric, gas, oil or water [employer] threatened to shut off services in your [...] encounter Miscellaneous Notes * Telephone Encounter - Amber Quiroz MD - 11/18/2024 6:51 PM EDT Patient received oxycodone recently. We have agreement that tramadol is 15 tabs per month. * Telephone Encounter - Xuan Sinclair RN - 11/18/2024 11:03 AM EDT Pt evaluated in [facility] 11/15/24 Dx: Hematuria, chest pain, htn. Note indicates that blood work and US were reassuring. Urinalysis showed 3+ bacteria with hematuria, no leukocytosis. Pt afebrile in ED.Antibiotics deferred pending culture. Culture returned contaminated. T/C to pt for status check. Pt initially states that she is feeling much, much better. Pt then c/o hematuria, dysuria and having difficulty urinating. Reports temperature of 101F last night and reports she has been feeling feverish off and on. Pt c/o chronic low back pain in the area of her kidneys. No other symptoms reported. Reports Urology follow up is scheduled 12/03/24. Recommended that pt present to [facility] for evaluation. Pt declines stating she needs to take the bus that isn't there yet. Advised of extended hours. Pt requesting med refill for Tramadol. Advised RN will request med from pcp as appropriate. * Telephone Encounter - Marixa Eric RN - 11/15/2024 11:50 AM EDT CM Marixa Eric RN and CHW Roxanne Dsouza placed outbound call to patient. Patient's name, and address confirmed. Patient with multiple ED visits since last call with CM. Patient seen at [facility] 11/14 for eval of CP. Patient [...] provided on [facility] located in [facility]. Patient provided with after-hours line for [facility], , which offer night time triage service and option to transfer to psychologist educational provider if needed. Patient verbalizes understanding, and able to repeat back to chart writer. A follow up call will be [...] Description 12/04/2024 2:00 PM EDT Clinical Support [facility] [address] [place] [phone] documented as of this encounter Visit Diagnoses Not on filedocumented in this encounter Care Teams Plant Science Professor Relationship Specialty Start Date End Date Amber Quiroz MD [address] [place] [id number] PCP - General Family Medicine 07/03/18 documented as of this encounter
--- OUTSIDE RECORDS SUMMARY | 2024-11-19 06:43 | XMS_ITS | Clinical Summary ---
Author Organization [employer] Address [address] [place] [address] 7 [place] [address] Care Team Providers Care Department [employer] Name Role Phone Amber Quiroz MD Primary Care Provider [phone] Allergies Active Allergy Reactions Criticality Noted Date [...] 18 g 025 Active Blood Pressure Monitor [facility] Check BP daily 1 each 025 Active gabapentin (Neurontin) 100 MG capsule TOME [...] Date Type Department Care Team Description 11/18/2024 Telephone [facility] MEDICINE [address] [place] [address] Amber Quiroz MD Med Refill 11/18/2024 Refill [facility] CHC MED & PEDS [address], [place] [phone] Amber Quiroz MD Nephrolithiasis 11/15/2024 Orders Only [facility] External Provider, [facility] 11/15/2024 Telephone [facility] MEDICINE [address], [place] [phone] Kian Sevilla, PharmD 11/15/2024 Telephone [facility] MEDICINE [address], [place] [phone] Amber Quiroz MD Care Management (C3CM- f/u call) 11/14/2024 Orders Only GENERIC EXTERNAL DATA DEPARTMENT Provider, Generic External Data 11/12/2024 1:30 PM EDT Office Visit [address] [address] Amber Quiroz MD Essential hypertension (Primary Dx); Nephrolithiasis; Chronic pain of left knee; Iron deficiency anemia, unspecified iron deficiency anemia type; Impaired fasting glucose 11/12/[address] [address] Amber Quiroz MD Moderate persistent asthma without complication 11/12/2024 Travel 11/11/2024 Orders Only GENERIC EXTERNAL DATA DEPARTMENT Provider, Generic External Data 11/11/[address] [address] Amber Quiroz MD CHART PREP 11/11/2024 Telephone [facility] ADULT DENTAL [address], [place] [phone] Francisco Mohan DMD status of oral surgery appt 11/08/2024 Patient Outreach [address] [address] Amber Quiroz MD Care Coordination (PT1) 11/06/2024 Patient Outreach [address] [address] Roxanne Dsouza Care Coordination (SDOH) 11/05/[address] [address] Amber Quiroz MD Care Management (C3CM- initial assessment/ enrollment.) 11/04/2024 Patient Outreach [address] [address] Amber Quiroz MD Care Coordination (CM/CHW appt reminder) 11/04/2024 Patient Outreach [address] [address] Amber Quiroz MD 11/04/2024 Patient Outreach [address] [address] Amber Quiroz MD 11/04/2024 Patient Outreach [address] [address] Amber Quiroz MD 11/02/2024 Orders Only GENERIC EXTERNAL DATA DEPARTMENT Provider, Generic External Data 11/01/2024 2:00 PM EDT Office Visit [facility] OPTOMETRY [address] [place] [address] Bernardo, Comfort, OD 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); White without pressure of peripheral retina of both eyes; Hyperopia of both eyes 11/01/2024 Travel 10/30/2024 Refill [facility] MEDICINE [address] [place] [address] Amber Quiroz MD Moderate persistent asthma without complication 10/30/2024 Refill [facility] MEDICINE [address] [place] [address] Charleen Latif MD Nausea; Moderate persistent asthma without complication 10/30/2024 Refill [facility] CHC MED & PEDS [address] [place] [address] Dilcia Henry ANP Nephrolithiasis 10/30/[address] [address] Amber Quiroz MD Med Refill 10/28/2024 Telephone [facility] MED & PEDS [address] [place] [address] Rachelle Lucero RN 10/25/2024 10:00 AM EDT Office Visit [facility] ADULT DENTAL [address] [place] [address] Boom Franklin DDS Pain 10/24/2024 10:45 AM EDT Immunization [facility] MEDICINE [address] [place] [phone] Allison Montgomery RN Encounter for immunization 10/24/[address] [address] Amber Quiroz MD 10/18/2024 Refill [facility] CHC MED & PEDS [address], [place] [phone] Rachelle Lucero, DOROTA Nephrolithiasis 10/18/[address] [address] Amber Quiroz MD Social Security Form (I [...] completed by a psych provider.) 10/17/2024 Telephone [facility] MEDICINE [address] [place] [address] Cheryl Larkin, DOROTA Sent to ED from Office 10/16/[address] [address] Amber Quiroz MD Chart Prep 10/15/[address] [address] Amber Quiroz MD Nurse Triage 10/11/2024 Patient Outreach [address] [address] Amber Quiroz MD Care Coordination (CM/CHW outreach) 10/11/2024 Patient Outreach [address] [address] Amber Quiroz MD Care Coordination (CM/CHW outreach) 10/08/2024 Refill [facility] MED & PEDS [address] [place] [address] Rachelle Lucero, DOROTA Nephrolithiasis 10/08/2024 Telephone [facility] MED & PEDS [address] [place] [address] Amber Quiroz MD 10/07/2024 Refill [facility] MEDICINE [address] [place] [address] Amber Quiroz MD Nausea 10/02/2024 Telephone [facility] MEDICINE [address] [place] [phone] 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, accounts payable administrator Question 10/01/2024 11:30 AM EDT Telemedicine [facility] MEDICINE [address] [place] [address] 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 RN Essential hypertension 10/01/2024 Travel 10/01/2024 Telephone [facility] [place] [address] Amber Quiroz MD 09/26/2024 Telephone [facility] [address] [place] [phone] Amber Quiroz MD Nurse Triage 09/25/2024 Refill [facility] [place] [address] Amber Quiroz MD Moderate persistent asthma without complication 09/25/2024 Telephone [facility] [place] [address] Amber Quiroz MD Care Management (C3- initial assessment/ enrollment #2. lvm) 09/24/2024 Patient Outreach [facility] [place] [address] Amber Quiroz MD Care Coordination (CM/CHW appt reminder) 09/20/2024 Refill [facility] [place] [address] Amber Quiroz MD Nephrolithiasis 09/13/2024 Population Health [facility] () Department [address] [place] [phone] Provider, Population Health Generic 09/05/2024 Telephone [facility] [place] [address] 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 RN Results 09/04/2024 Orders Only [facility] [place] [address] Amber Quiroz MD Routine screening for STI (sexually transmitted infection) (Primary Dx) 09/04/2024 Patient Outreach [facility] [address] [place] [phone] Amber Quiroz MD Care Coordination (CM/CHW outreach) 09/04/2024 Refill [facility] [place] [address] Amber Quiroz MD 09/03/2024 3:00 PM EST Office Visit [facility] [place] [address] Amber Quiroz MD Loin pain hematuria syndrome (Primary Dx); Essential hypertension; Kidney stones; Nephrolithiasis; Mood disorder (CMS/HCC); Dyslipidemia; Encounter for immunization; Dietary counseling; Exercise counseling; Overweight; Panic disorder without agoraphobia; Anxiety; Iron deficiency anemia, unspecified iron deficiency anemia type 09/03/2024 Telephone [facility] MEDICINE [address] [place] [address] Amber Quiroz MD Appointment Request 09/03/2024 Travel 08/29/2024 Refill [facility] MEDICINE [address], [place] [phone] Amber Quiroz MD 08/28/[address] [address] Shellie Eric MA chart prep 08/28/2024 Patient Outreach [address] [phone] Amber Quiroz MD Care Coordination (CM/CHW outreach) 08/26/2024 Telephone [facility] [address] [place] [address] Amber Quiroz MD Nurse Triage 08/25/2024 Refill [facility] MED & PEDS [address], [place] [phone] Amber Quiroz MD Pain from Last 3 Months Immunizations Immunization Administration [...] Description 12/04/2024 2:00 PM EDT Clinical Support [address] [address] Health Maintenance Due Date Last Done Comments CT Colonography 1964 Dental Prophylaxis 1964 Depression Screening 1965 FIT DNA/Cologuard 1964 FIT 1965 FOBT 1965 HIV Screening 1965 Sigmoidoscopy 1965 Hepatitis C Screening 1982 Mammogram 2004 Dental X-Ray: Bitewings 11/24/2012 11/24/2011 Colonoscopy 07/31/2021 Colorectal Cancer Screening 07/31/2021 Colposcopy 07/31/2021 Zoster Vaccines (2 of 2) 05/29/2023 04/03/2023 Pap Smear 07/30/2024 07/30/2021 RSV Patients and Patients Aged 60 years or older (1 - Risk 60-74 years 1-dose series) 2024 Dental Oral Exam 04/27/2025 10/25/2024 Alcohol/Substance Use Screening 09/03/2025 09/03/2024 Disability Screening 11/12/2025 11/12/2024 SDOH Screening 11/12/2025 11/12/2024 Tobacco Screening 11/12/2025 11/12/2024 Cervical Cancer Screening 07/30/2026 HPV/Cotest 07/30/2026 07/30/2021, 01/28/2019 Dental X-Ray: Full Mouth 10/27/2027 025, 07/09/2012, 11/24/2011 DTaP/Tdap/Td Vaccines (5 - Td or Tdap) 03/15/2029 03/15/2019, 12/21/2012, 11/05/2012, Additional history exists Lipid Panel 09/03/2029 09/03/2024 Hepatitis B Vaccines Completed 11/29/2023, 04/18/2023, 03/22/2023 [...] Name Priority Date/Time Associated Diagnosis Comments XR KNEE 3 VIEWS LEFT Routine 11/18/2024 8:40 AM EDT Chronic pain of left knee CULTURE, URINE, ROUTINE Routine 11/15/2024 8:26 PM [...] Relevant to Health Maintenance Results * XR Knee 3 Views Left (11/18/2024 8:40 AM EDT) Anatomical Region Laterality Modality Lower Extremities, Knee Left Radiogra phic Imaging 11/18/2024 8:40 AM EDT Narrative 11/18/2024 9:26 AM EDT ?[facility] ?[address] ?[place] [address] ?XRay Report ? Signed ? Patient: Marquez,Zelidez ?MR#: [id number] ?? 760 ? : 1965 ?Acct:[id number] ? Age/Sex: 58 / F ?ADM Date: 05/19/25 ? Loc: HO.HHCX ? Attending Dr: Amber Quiroz MD ? Ordering Physician: Amber Quiroz MD ?? Date of Service: 11/18/24 ?? Procedure(s): XR knee LT 3V ?? Accession Number(s): [id number] ? cc: Amber Quiroz MD ? EXAMINATION: ?? XR KNEE, LEFT ? CLINICAL INFORMATION: ?? left knee pain, chronic. ??s/p TKR on right ? COMPARISON: ?? None available. ? TECHNIQUE: ?? Four views of the left knee. ? FINDINGS: ?? Normal bone mineralization. No fracture, dislocation, or suspicious ?? bone lesion. Normal alignment. ?? Mild to moderate medial compartment osteoarthrosis with mild joint ?? space narrowing and marginal osteophytic spurs. The lateral and ?? patellofemoral compartment appear relatively preserved. ?? There is spurring of the tibial spines. ? There is no joint effusion. ? Soft tissues appear normal. ? XR/XR knee LT 3V ?? IMPRESSION: ? 1. No acute bony abnormalities. ?? 2. Mild to moderate medial compartment osteoarthrosis. ?? 3. No joint effusion. ? Electronically signed by: ??Eliezer Whyte MD ??11/18/2024 09:23 AM EDT RP ? Dictated By: ?Eliezer Whyte MD ? Signed By: ?<Electronically signed by Eliezer Whyte MD in OV> ?11/18/24 0923 ? DD/ 0840 ? TD/TT: 11/18/24 0900 ? Lump Inspector: ? Procedure Note True, Image - 11/18/2024 [place] [address] XRay Report Signed Patient: John MarquezMR#: [id number] 760 : 1965Acct:[id number] Age/Sex: 58 / FADM Date: 11/18/24 Loc: HO.HHCX Attending Dr: Amber Quiroz MD Ordering Physician: Amber Quiroz MD Date of Service: 11/18/24 Procedure(s): XR knee LT 3V Accession Number(s): [id number] cc: Amber Quiroz MD EXAMINATION: XR KNEE, LEFT CLINICAL INFORMATION: left knee pain, chronic. s/p TKR on right COMPARISON: None available. TECHNIQUE: Four views of the left knee. FINDINGS: Normal bone mineralization. No fracture, dislocation, or suspicious bone lesion. Normal alignment. Mild to moderate medial compartment osteoarthrosis with mild joint space narrowing and marginal osteophytic spurs. The lateral and patellofemoral compartment appear relatively preserved. There is spurring of the tibial spines. There is no joint effusion. Soft tissues appear normal. XR/XR knee LT 3V IMPRESSION: 1. No acute bony abnormalities. 2. Mild to moderate medial compartment osteoarthrosis. 3. No joint effusion. Electronically signed by: Eliezer Whyte MD 11/18/2024 09:23 AM EDT RP Dictated By: Eliezer Whyte MD Signed By: <Electronically signed by Eliezer Whyte MD in OV> 11/18/24922 DD/ 0840 TD/TT: 11/18/24 0900 Lump Inspector: Amber Quiroz MD IMG XR PROCEDURES Edited Result - Final * Culture, Urine, Routine (11/15/2024 8:26 PM EDT) Urine Urine specimen obtained by clean catch procedure / Unknown 11/15/2024 8:26 PM EDT 11/15/2024 8:26 PM EDT Comment:[facility] Narrative [facility] - 11/17/2024 9:02 AM EDT Urine Culture Report Result Urine Culture 50,000 to 100,000 cfu/ml Urine Culture Mixed bacterial geovanny characteristic of Urine Culture urogenital contamination. Specimen Source: Urine clean catch us Generic External Data Provider LAB MICROBIOLOGY - GENERAL ORDERABLES Final Result [facility] [address] [place] [phone] * (ABNORMAL) Urinalysis, Complete, with Reflex to Culture (11/15/2024 7:57 PM EDT) Only the most recent of3 resultswithin the time period is included. Color Urine [place](A) [facility] Appearance Urine Cloudy [facility] PH 6.5 5.0 - 9.0 [facility] Glucose Urine UA Negative Negative mg/dL [facility] Urine Blood Large (3+)(A) Negative [facility] Specific [place] - Urine 1.025 1.005 - 1.025 [facility] Urine Protein 30 (1+)(A) Neg-Trace mg/dL [facility] Urine Ketones Negative Negative mg/dL [facility] Nitrite Urine Negative Negative [facility] Leukocyte Esterase Urine Small (1+)(A) Negative [facility] RBC Urine >20(A) 0 - 2 /HPF [facility] Urine WBC 6-10(A) 0 - 5 /HPF [facility] Urine Squamous Epithelial Cell 11-20 0 - 2 /HPF [facility] Urine Bacteria 3+ None Seen [facility] Hyaline Casts, Urine 0-2 0 - 2 /LPF [facility] 11/15/2024 7:57 PM EDT 11/15/2024 8:00 PM EDT Narrative [facility] - 11/15/2024 8:17 PM EDT [id number], Clean Catch us Generic External Data Provider LAB URINE ORDERAB LES Final Result Performing Organization Address City/State/RUST Co de Phone Number [facility] [address] [place] [phone] * US RENAL BI (11/15/2024 7:44 PM EDT) Anatomical Region Laterality Modality Abdomen Ultrasound 11/15/2024 7:44 PM EDT Narrative 11/15/2024 7:46 PM EDT ? [facility] ?[address] ?[place] [address] ? Ultrasound Report ? Signed ? Patient: Marquez,Zelidez ?MR#: [id number] ?? 760 ? : 1965 ?Acct:[id number] ? Age/Sex: 58 / F ?ADM Date: 05/16/25 ? Loc: HO.ED ? Attending Dr: ? Ordering Physician: Jonathan Burgos ?? Date of Service: 11/15/24 ?? Procedure(s): US renal BI ?? Accession Number(s): [id number] ? cc: Jonathan Burgos; Amber Qiuroz MD ? CLINICAL HISTORY: bilat flank pain [...] ? DD/ 43 ? TD/TT: 11/15/241943 ? Lump Inspector: ? Procedure Note Nisha Biswas - 11/18/2024 [place] [address] Ultrasound Report Signed Patient: John MarquezMR#: [id number] 760 : 1965Acct:[id number] Age/Sex: 58 / FADM Date: 11/15/24 Loc: HO.ED Attending Dr: Ordering Physician: Jonathan Burgos Date of Service: 11/15/24 Procedure(s): US renal BI Accession Number(s): [id number] cc: Jonathan Burgos; Amber Quiroz MD CLINICAL [...] in OV> 11/15/241944 DD/ 43 TD/TT: 11/15/241943 Lump Inspector: us [facility] External Provider IMG US PROCEDURES Edited Result - Final * XR Chest 1 View (11/14/2024 7:54 AM EDT) Anatomical Region Laterality Modality Chest Radiographic Shy ging 11/14/2024 7:54 AM EDT Narrative 11/14/2024 8:16 AM EDT ? [facility] ?[address] ?[place] [address] ?XRay Report ? Signed ? Patient: John Marquez ?MR#: [id number] ?? 760 ? : 1965 ?Acct:[id number] ? Age/Sex: 58 / F ?ADM Date: 11/14/24 ? Loc: HO.ED ? Attending Dr: ? Ordering Physician: Bobby Ham MD ?? Date of Service: 11/14/24 ?? Procedure(s): XR chest 1V ?? Accession Number(s): [id number] ? cc: Bobby Ham MD; Amber Quiroz [...] 0814 ? DD/ 0754 ? TD/TT: 11/14/24 08 ? Lump Inspector: ? Procedure Note Donrakel, Image - 11/18/[address] [address] XRay Report Signed Patient: Heidi Marquez#: [id number] 760 : 1965Acct:[id number] Age/Sex: 58 / FADM Date: 11/14/24 Loc: .ED Attending Dr: Ordering Physician: Bobby Ham MD Date of Service: 11/14/24 Procedure(s): XR chest 1V Accession Number(s): [id number] cc: Bobby Ham MD; Amber Quiroz MD [...] Misha Curtis MD 11/14/2024 08:14 AM EDT Dictated By: Misha Curtis MD Signed By: <Electronically signed by Misha Curtis MD in OV> 11/14/24813 DD/ 3 TD/TT: 11/14/24799 Lump Inspector: [facility] External Provider IMG XR PROCEDURES Edited Result - Final * D Dimer High Sensitivity (11/14/2024 7:49 AM EDT) Pathologist [facility] D Dimer High Sensitivity 231 NG/ML [facility] Comment:D-DIMER HS REFERENCE RANGENote: Our [...] ORDERAB LES Final Result Performing Organization Address [facility] de Phone Number [facility] [address] [place] [phone] * High Sensitivity Troponin I (11/14/2024 7:49 AM EDT) Only the most recent of2 resultswithin the time period is included. [facility] TROPONIN I HIGH SENSITIVITY <2.7 <3.5 - 17.0 ng/L [facility] Comment:The [place] high sens itivity Troponin-I results should beused in conjunction with other diagnostic information suchas ECG, clinical observations and information, and patientsymptoms to aid in the diagnosis of [place]. 11/14/2024 7:49 AM EDT 11/14/2024 7:51 AM EDT Generic External Data Provider LAB BLOOD ORDERAB LES Final Result Performing Organization Address [facility]/[place] Co de Phone Number [facility] [address] [place] [phone] * CBC auto differential (11/14/2024 5:36 AM EDT) Only the most recent of2 resultswithin the time period is included. [facility] White Blood Count 5.3 4.8 - 10.8 X10*3/uL [facility] Red Blood Count 4.52 4.20 - 5.50 X10*6/uL [facility] Hemoglobin 12.4 12.0 - 16.0 g/dl [facility] Hematocrit 37.7 37.0 - 47.0 % [facility] Mean Corpuscular Volume 83.4 80.0 - 98.0 fL [facility] Mean Corpuscular Hemoglobin 27.4 27.0 - 33.0 pg [facility] Mean Corpuscular HGB Conc 32.9 31.0 - 35.0 g/dl [facility] Red Cell Distribution Width 15.2 11.0 - 16.0 % [facility] Platelet Count 270 160 - 400 X10*3/uL [facility] Mean Platelet Volume 9.5 9.4 - 12.3 fL [facility] Neutrophils Percent Auto 57.0 45 - 73 % [facility] Imm Gran Pct Auto 0.0 0.0 - 0.4 % [facility] Lymphocytes Percent Auto 32.8 20 - 40 % [facility] Monocytes Percent Auto 7.9 2 - 11 % [facility] Eosinophils Percent Auto 2.1 0 - 4 % [facility] Basophils Percent Auto 0.2 0 - 2 % [facility] NRBC Pct Auto 0.0 0.0 - 0.2 /100WBC [facility] Neutrophils Absolute Auto 3.1 2.0 - 8.3 x10*3/uL [facility] Imm Gran Abs Auto 0.00 0.00 - 0.03 X10*3/uL [facility] Lymphocytes Absolute Auto 1.8 1.2 - 4.9 X10*3/uL [facility] Monocytes Absolute Auto 0.4 0.1 - 1.2 X10*3/uL [facility] Eosinophils Absolute Auto 0.1 0.0 - 0.4 X10*3/uL [facility] Basophils Absolute Auto 0.0 0.0 - 0.2 X10*3/uL [facility] NRBC Abs Auto 0.000 0.0 - 0.012 X10*3/uL [facility] 11/14/2024 5:36 AM EDT 11/14/2024 5:40 AM EDT us Generic External Data Provider LAB BLOOD ORDERAB LES Final Result [facility] [address] [place] [phone] * (ABNORMAL) Comprehensive Metabolic Panel (11/14/2024 5:36 AM EDT) Only the most recent of2 resultswithin the time period is included. Sodium 143 135 - 145 mmol/L [facility] Potassium 3.8 3.3 - 5.1 mmol/L [facility] Chloride 110(H) 96 - 108 mmol/L [facility] Carbon Dioxide 23 22 - 29 mmol/L [facility] Anion Gap 14 12 - 20 [facility] Urea Nitrogen (BUN) 16 9 - 16 mg/dL [facility] Creatinine, Serum 0.64 0.5 - 1.4 mg/dL [facility] Creatinine Clr Calc Pharmacy 66.7 [facility] Comment:Provided height and weight: 154.94 cm,44.7 kg.eGFR (calculated from the MDRD study equation) and eCrCl(calculated from the Cockcroft-Gault equation) are based ondifferent parameters and may not yield comparable results.If eCrCl result is absurd, please check patient'sheight/weight. Estimated Glomerular Filt Rate >60 [facility] Comment:Chronic Kidney Disea se: Estimated GFR < 60 mL/min/[id number] Kidney Disease: Estimated GFR < 15 mL/min/1.73m2 Glucose 97 60 - 115 mg/dL [facility] Calcium 9.3 8.4 - 10.2 mg/dL [facility] Bilirubin, Total 0.3 0.0 - 1.0 mg/dL [facility] Aspartate Amino Transferase 44(H) 5 - 31 U/L [facility] Alanine Aminotransferase 37(H) 0 - 31 U/L [facility] Total Protein 7.5 6.5 - 8.0 g/dL [facility] Albumin Level 4.4 3.5 - 5.0 g/dL [facility] Alkaline Phosphatase 107 39 - 117 U/L [facility] 11/14/2024 5:36 AM EDT 11/14/2024 5:40 AM EDT us Generic External Data Provider LAB BLOOD ORDERAB LES Final Result [facility] [address] [place] [phone] * CT Abdomen Pelvis w/o Contrast (11/11/2024 11:14 AM EDT) Only the most recent of2 resultswithin the time period is included. Anatomical Region Laterality Modality Body, Pelvis, Abdomen Computed T omography 11/11/2024 11:1 4 AM EDT Narrative 11/11/2024 11:55 AM EDT ? [facility] ?[address] ?[place] [address] ? CT Scan Report ? Signed ? Patient: John Marquez ?MR#: [id number] ?? 760 ? : 1965 ?Acct:[id number] ? Age/Sex: 58 / F ?ADM Date: 11/11/24 ? Loc: HO.ED ? Attending Dr: ? Ordering Physician: Felix Malik DO ?? Date of Service: 11/11/24 ?? Procedure(s): CT abdomen pelvis wo IV con ?? Accession Number(s): [id number] ? cc: Felix Malik DO; Amber Quiroz MD ? Report Number: ?? [id number]: Total DLP = ??447.00 mGy-cm ?? EXAMINATION: [...] DD/ 1114 ? TD/TT: 11/11/24 1139 ? Lump Inspector: ? Procedure Note Nisha Biswas - 11/11/[address] [place] [address] [address] Scan Report Signed Patient: John MarquezMR#: [id number] 760 : 1965Acct:[id number] Age/Sex: 58 / FADM Date: 11/11/24 Loc: HO.ED Attending Dr: Ordering Physician: Felix Malik DO Date of Service: 11/11/24 Procedure(s): CT abdomen pelvis wo IV con Accession Number(s): [id number] cc: Felix Malik DO; Amber Quiroz MD Report Number: [id number]: Total DLP = 447.00 mGy-cm EXAMINATION: CT [...] 11/11/24 1152 DD/ 1114 TD/TT: 11/11/24 1139 Lump Inspector: Result [facility] External Provider IMG CT PROCEDURES Final Result * Referral to Urology (09/25/2024) Result [facility] Amber Quiroz MD OUTPATIENT REFERRAL ORDERABLES F inal Result * Pathologist Review - CBC (09/03/2024 4:26 PM EST) Pathologist Review - CBC SEE NOTE [facility] Comment:Normochromic normocy tic anemia; white blood cells are mildlydecreased in number, but otherwise normal appearing.- Ray Viera M.D. Pathology Blood Venous blood specimen / Unknown 09/03/2024 4:26 PM EST 09/03/2024 6:14 PM EST Result [facility] Amber Quiroz MD LAB BLOOD ORDERABLES Final Resul t Performing Organization Address City/State/[place]UST Co de Phone Number [facility] [address] [place] [phone] * Vitamin B12/Folate, Serum Panel (09/03/2024 4:26 PM EST) Vitamin B12 247 200 - 900 pg/mL [facility] Comment:NORMAL 200-900 PG/ML INDETERMINATE 160-199 PG/ML DEFICIENT < 160 PG/ML Folate 9.9 > or = 4.0 ng/mL [facility] Comment:Reference Values:> o r = 4.0 ng/mL< 4.0 ng/mL suggests folate deficiency Methotrexate, aminopterin and folinic acid(leucovorin) are chemotherapeutic agents whose molecularstructures are similar to folate; therefore, the Architectfolate assay cannot be used for patients using these drugs. 09/03/2024 4:26 PM EST 09/03/2024 6:14 PM EST Result [facility] Amber Quiroz MD LAB BLOOD ORDERABLES Final Resul t [facility] [address] [place] [address] [phone] * TSH with Reflex to Free T4 (09/03/2024 4:26 PM EST) TSH reflex Free T4 1.08 0.32 - 4.0 uIU/mL [facility] Blood 09/03/2024 4:26 PM EST 09/03/2024 6:14 PM EST Amber Quiroz MD LAB BLOOD ORDERABLES Final Resul t Performing Organization Address [facility] Co de Phone Number [facility] [address] [place] [phone] * (ABNORMAL) Lipid Panel with Reflex to Direct LDL (09/03/2024 4:26 PM EST) Triglycerides 112 <150 mg/dL [facility] Comment:Desirable Triglyceri de: less than 150 mg/dLBorderline High Triglyceride 150-199 mg/dLHigh Triglyceride: 200-499 mg/dLVery High Triglyceride: greater than or equal to 5OO mg/dL Cholesterol 183 <200 mg/dL [facility] Comment:Desirable Cholestero l: less than 200 mg/dLBorderline High Cholesterol: 200-239 mg/dLHigh Cholesterol: greater than 239 mg/dL LDL Cholesterol Calculated 112(H) <100 mg/dL [facility] Comment:Desirable LDL: less than 100 mg/dLNear Optimal/Above Optimal LDL: 110- 129 mg/dLBorderline High LDL: 130-159 mg/dLHigh LDL: 160-189 mg/dLVery High LDL: greater than or equal to 190 mg/dL HDL Cholesterol 49 >40 mg/dL [facility] Comment:Desirable HDL: great er than 40 mg/dL Note: This HDL assay may give artificially low results in patients with liver disease. Blood 09/03/2024 4:26 PM EST 09/03/2024 6:14 PM EST Amber Quiroz MD LAB BLOOD ORDERABLES Final Resul t Performing Organization Address [facility] Co de Phone Number [facility] [address] [place] [address] [phone] * Iron And Total Iron Binding Capacity (09/03/2024 4:26 PM EST) Iron 69 30 - 160 mcg/dL [facility] Comment:Slight Hemolysis.Int erpret result with caution. Total Iron Binding Capacity 250 228 - 428 mcg/dL [facility] Percent Iron Saturation 28 15 - 50 % [facility] Unsaturated Iron Binding 181 ug/dL [facility] Blood Venous blood specimen / Unknown 09/03/2024 4:26 PM EST 09/03/2024 6:14 PM EST Amber Quiroz MD LAB BLOOD ORDERABLES Final Resul t Performing Organization Address [facility] Co de Phone Number [facility] [address] [place] [phone] * Hemoglobin A1c (09/03/2024 4:26 PM EST) Hemoglobin A1c 5.6 <6.0 % [facility] Comment:Hemoglobin A1C Refer ence Range Adults: 4.8 - 6.0 % Non diabetic: < 6.0 % Goal: < 7.0 %Additional Action Suggested: > 8.0 %Note: Hemoglobin A1c results are invalid for patients with abnormal amounts of HbF. Blood transfusions may impact the HbA1c concentration in the patient sample. Estimated Average Glucose 114 mg/dL [facility] Comment:eAG = Estimated ave rage glucose which is %A1C expressed asaverage glucose, using the formula of the [id number] Glucose study (ADAG), Diabetes Care, Vol.31,#8,Jan. 2007 Blood Venous blood specimen / Unknown 09/03/2024 4:26 PM EST 09/03/2024 6:14 PM EST Amber Quiroz MD LAB BLOOD ORDERABLES Final Resul t Performing Organization Address City/[facility]/ZIP Co de Phone Number [facility] [address] [place] [phone] * Ferritin (09/03/2024 4:26 PM EST) Ferritin 51 10 - 250 ng/mL [facility] Blood Venous blood specimen / Unknown 09/03/2024 4:26 PM EST 09/03/2024 6:14 PM EST us Amber Quiroz MD LAB BLOOD ORDERABLES Final Resul t Performing Organization Address [facility]/ZIP Co de Phone Number [facility] [address] [place] [phone] * (ABNORMAL) THINPREP TIS PAP AND [...] been evaluated with computer assisted technology. [facility] Nuclear Chemistry Technician: SEE COMMENT [facility] Comment: [facility], CT(ASCP) CT screening location: [address] ??[phone] General Categorization: EPITHELIAL CELL ABNORMALITY(A ) [facility] HPV nRNA E6/E7 Not Detected Not Detected [facility] Comment: Methodology: Extruder Operator Multiple-Mediated Amplification This assay detects E6/E7 viral messenger RNA (mRNA) from 14 high-risk HPV types (16,18,31,33,35,39,45,51,52,56,58,59,66,68). ? The analytical performance characteristics of this assay have been determined by [employer]. The modifications have not been cleared or approved by the FDA. This assay has been validated pursuant to the CLIA regulations and is used for clinical purposes. ?? For additional information, please refer to http://education.InComm/faq/UTY899z6 (This link if provided for information/ educational purposes only.) Infection Shift in vaginal geovanny suggestive of bacterial vaginosis. [facility] Interpretation/Res ult: SEE COMMENT(A) [facility] Comment: Atypical Squamous Cells of Undetermined Significance (ASC-US) Rare cells are approaching low grade dysplasia. LMP: NONE [facility] PATHOLOGIST: SEE COMMENT [facility] Comment: Jennifer Branch M.D., Board Certified in Anatomic and Clinical Pathology (electronic signature) Consulting Pathologist [facility] [phone] Prev. BX: NONE [facility] Prev. PAP: NONE [facility] SOURCE: None given [facility] Statement Of Adequacy: SEE COMMENT [facility] Comment: Satisfactory for evaluation. Endocervical/transformation zone component present. 07/30/2021 10:1 7 AM EST us Saleem Maier MD LAB PATHOLOGY ORDERABLES Final R esult [facility] [address] from Last 3 Months or Most Recently Relevant to Health Maintenance Insurance [facility] ST[facility] ADULT Care Teams Department Head College Or University Relationship Specialty Start Date End Date Amber Quiroz MD [address] [place] [phone] PCP - General Family Medicine 07/03/18
--- OUTSIDE RECORDS SUMMARY | 2024-11-19 06:43 | XMS_ITS | Encounter Summary ---
Author Organization [employer] Address [address] [facility] 7 [place] [address] Care Team Providers Care Benzene Operator Name Role Phone Amber Quiroz MD Primary Care Provider [phone] Reason for Visit * Reason Onset Date Comments Med Refill 06/21/2024 Encounter Details Date Type Department Care Team ([facility] st Contact Info) Description 06/21/2024 Telephone [facility] [address], [place] [phone] Amber Quiroz MD [address], [place] [phone] Med Refill Social History Tobacco Use Types [...] extra strength with no relief. Please advise. FOOD DEMONSTRATOR checked 06/21/24. Last refill of Oxycodone 5mg 11/30/23 qty 12. * Telephone Encounter - Gemma Oliveira - 06/21/2024 10:12 AM EST TC from pt requesting medication refill. Medications needing refill : oxyCODONE (Oxy-IR) 5 MG immediate release capsule To be sent to: [facility] - [place], [place] - [address] [facility] documented in this encounter Plan of Treatment Upcoming Encounters Date Type Department Care Team ([facility] st Contact Info) Description 12/04/2024 2:00 PM EDT Clinical Support [facility] [address] [place] [phone] documented as of this encounter Visit Diagnoses Not on filedocumented in this encounter Care Teams Benzene Operator Relationship Specialty Start Date End Date Amber Quiroz MD [address] [place] [phone] PCP - General Family Medicine 07/03/18 documented as of this encounter
--- OUTSIDE RECORDS SUMMARY | 2024-11-19 06:43 | XMS_ITS | Encounter Summary ---
Author Organization [employer] Address [address] [facility] 7 [place] [address] Care Team Providers Care Controller Repairer And Tester Name Role Phone Amber Quiroz MD Primary Care Provider [phone] Encounter Details Date Type Department Care Team (Late st Contact Info) Description 03/22/2023 Orders Only [facility] [address] [place] [phone] Amber Quiroz MD [address] [place] [phone] ASCUS of cervix with negative high risk [...] EDT Clinical Support [facility] [address] [place] [phone] documented as of this encounter Visit Diagnoses Diagnosis ASCUS of cervix with negative high risk HPV- Primary History of cervical dysplasia Personal history of cervical dysplasia documented in this encounter Care Teams Controller Repairer And Tester Relationship Specialty Start Date End Date Amber Quiroz MD [address] [place] [phone] PCP - General Family Medicine 07/03/18 documented as of this encounter
== END 2024-11-19 06:46 | disposition home or self-care (01) ==
LOC: HO.ED 06:41
PROVIDERS: Emergency Provider Emergency Medicine
DX: R31.9 Hematuria, unspecified (principal); R79.89 Other specified abnormal findings of blood chemistry; I10 Essential (primary) hypertension; F17.210 Nicotine dependence, cigarettes, uncomplicated; Z79.899 Other long term (current) drug therapy; Z51.81 Encounter for therapeutic drug level monitoring
CPT/HCPCS: 36415; 80048; 80076; 80307; 81001; 83690; 85025; 86140; 87086; 99283; 99284

== ENCOUNTER 2024-11-25 00:48 | Emergency (ER) | payer MEDICAID, SELFPAY ==
[2024-11-25 00:54] VITALS: BP 148/84; BP 152/84; PULSE 78; PULSE 94; RESP 20; TEMP 36.6; O2SAT 99; BMI 28.0
[2024-11-25] MEDS: HYDROmorphone HCl 2 MG TABLET 1 MG PO (01:32)
--- NOTE | 2024-11-25 01:34 | ED_ITS ---
HPI - Female Genitourinary General Chief complaint: Urogenital-Female Stated complaint: Kidney stones Time Seen by Provider: 11/25/24 00:50 Source: patient and EMS Mode of arrival: EMS Limitations: no limitations History of Present Illness ED Provider: Dr. Jonan Herman HPI Narrative: Patient comes to the emergency room via ambulance complaining of kidney stone pain. Patient states that the pain started right after coming out of [facility]. However, patient is very well known to the emergency room for complaining for chronic kidney stones, flank pain and hematuria. Since 2021, patient has had 16 CT scans and a few ultrasounds, always for the same complaint. And that is only here at [facility]. Patient also frequently goes to [facility] with the same complaint and they have done more imaging as well. Related Data Home Medications ?Medication ?Instructions ?Recorded ?Confirmed albuterol sulfate 90 mcg/actuation 2 puff PO Q4-6H PRN dyspnea 11/26/20 11/26/20 aerosol inhaler (ProAir HFA) amlodipine 10 mg tablet 1 tab PO DAILY 11/26/20 11/26/20 ascorbic acid (vitamin C) 250 mg 1 tab PO BID 11/26/20 11/26/20 tablet atorvastatin 10 mg tablet 1 tab PO DAILY 11/26/20 11/26/20 clonidine HCl 0.2 mg tablet 1 tab PO BID PRN panic attack 11/26/20 11/26/20 cyanocobalamin (vitamin B-12) 500 1 tab PO DAILY 11/26/20 11/26/20 mcg tablet docusate sodium 100 mg capsule 1 - 2 cap PO BEDTIME PRN 11/26/20 11/26/20 constipation fluoxetine 20 mg capsule 3 cap PO QAM 11/26/20 11/26/20 gabapentin 100 mg capsule 1 cap PO TID PRN anxiety 11/26/20 11/26/20 gabapentin 400 mg capsule 1 cap PO BEDTIME 11/26/20 11/26/20 loratadine 10 mg tablet 1 tab PO DAILY 11/26/20 11/26/20 loratadine 10 mg tablet 1 tab PO DAILY 11/26/20 11/26/20 mirtazapine 30 mg tablet 1 tab PO BEDTIME 11/26/20 11/26/20 mirtazapine 30 mg tablet 1 tab PO BEDTIME 11/26/20 11/26/20 ondansetron HCl 4 mg tablet 1 tab PO Q8H PRN nausea 11/26/20 11/26/20 polyvinyl alcohol 1.4 % eye drops 1 drp ophthalmic (eye) TID 11/26/20 11/26/20 (Artificial Tears (polyvinyl alcohol)) quetiapine 25 mg tablet 1 tab PO BID PRN anxiety 11/26/20 11/26/20 topiramate 25 mg tablet 1 tab PO BID 11/26/20 11/26/20 zolpidem 10 mg tablet 1 tab PO BEDTIME PRN insomnia 11/26/20 11/26/20 Previous Rx's ?Medication ?Instructions ?Recorded tramadol 50 mg tablet 50 mg PO Q8H PRN pain #3 tabs 11/26/20 nitrofurantoin 100 mg PO BID #14 caps 05/26/21 monohydrate/macrocrystals 100 mg capsule (Macrobid) phenazopyridine 100 mg tablet 100 mg PO TID PRN pain 6 doses #6 05/26/21 (Pyridium) tabs cefuroxime axetil 250 mg tablet 250 mg PO BID 7 days #14 tabs 07/15/21 morphine 15 mg immediate release 15 mg PO BID PRN pain #8 tabs 07/15/21 tablet docusate sodium 100 mg capsule 100 mg PO BID #20 caps 07/21/21 (Colace) sennosides 8.6 mg tablet (senna) 8.6 mg PO BEDTIME #14 tabs 07/21/21 docusate sodium 100 mg capsule 100 mg PO BID PRN Constipation #14 11/23/21 (Colace) caps nitrofurantoin 100 mg PO BID uti 7 days #14 caps 11/23/21 monohydrate/macrocrystals 100 mg capsule (Macrobid) ondansetron 4 mg disintegrating 4 mg PO Q6H nausea/vomiting #14 11/23/21 tablet tabs cephalexin 500 mg capsule 500 mg PO Q8H 7 days #21 caps 08/02/22 ondansetron 4 mg disintegrating 4 mg PO Q8H PRN nausea and 03/02/23 tablet vomiting #10 tabs phenazopyridine 200 mg tablet 200 mg PO TID PRN pain 6 doses #6 03/02/23 (Pyridium) tabs acetaminophen 325 mg capsule 650 mg (2 x 325 mg) PO Q6H PRN 04/01/24 (Tylenol) pain #30 caps cefdinir 300 mg capsule 300 mg PO BID 5 days #10 caps 04/01/24 cephalexin 500 mg capsule 500 mg PO BID #14 caps 07/15/24 ondansetron HCl 4 mg tablet 4 mg PO Q8H PRN nausea and 07/15/24 vomiting #10 tabs oxycodone 5 mg tablet 5 mg PO Q6H PRN pain, moderate #10 07/15/24 tabs tamsulosin 0.4 mg capsule (Flomax) 0.4 mg PO DAILY #6 caps 07/15/24 dicyclomine 10 mg capsule 10 mg PO BID #14 caps 08/14/24 ondansetron 4 mg disintegrating 4 mg PO Q8H PRN nausea and 08/14/24 tablet vomiting #10 tabs cefuroxime axetil 250 mg tablet 250 mg PO BID 7 days #14 tabs 10/17/24 ondansetron 4 mg disintegrating 4 mg PO Q8H PRN nausea and 10/17/24 tablet vomiting #7 tabs oxycodone 5 mg tablet 5 mg PO Q8H PRN severe pain (scale 10/17/24 score 7-10) #9 tabs tamsulosin 0.4 mg capsule (Flomax) 0.4 mg PO BEDTIME #14 caps 10/17/24 acetaminophen 500 mg capsule 1,000 mg (2 x 500 mg) PO Q8H PRN 11/19/24 fever or pain #14 caps cephalexin 500 mg capsule 500 mg PO BID #12 caps 11/19/24 ondansetron 4 mg disintegrating 4 mg PO Q6H PRN nausea and 11/19/24 tablet vomiting #10 tabs phenazopyridine 200 mg tablet 200 mg PO TID PRN Dysuria 6 doses 11/19/24 #6 tabs Allergies Allergy/AdvReac Type Severity Reaction Status Date / Time aspirin [ASA] Allergy Intermediate RASH, Verified 11/25/24 01:02 nausea and vomiting ibuprofen [IBUPROFEN] Allergy Intermediate RASH Verified 11/25/24 01:02 nicotine Allergy Intermediate RASH FROM Verified 11/25/24 01:02 NICOTINE PATCH, nausea and vomiting ketorolac [From TORADOL] Allergy Mild RAPID HR Verified 11/25/24 01:02 AND HIVES haloperidol [From Haldol] Allergy Anaphylaxis Verified 11/25/24 01:02 metoclopramide [From Reglan] Allergy Unknown Verified 11/25/24 01:02 Review of Systems 2 Review of Systems: Constitutional : No Weight loss, No Fever, No Chills, No Night Sweats, No Fatigue, No Malaise ENT/Mouth : No Hearing loss, No Ear Pain, No Nasal Congestion, No Sinus Pain, No Hoarseness, No sore throat, No Rhinorrhea, No Swallowing Difficulty Eyes: No Eye Pain, No Swelling, No Redness, No Foreign Body, No Discharge, No Vision Changes Cardiovascular : No Chest Pain, No SOB, No Dyspnea on Exertion, No Orthopnea, No Edema, No Palpitations Respiratory : No Cough, No Sputum, No Wheezing, No Smoke Exposure, No Dyspnea Gastrointestinal : No Nausea, No Vomiting, No Diarrhea, No Constipation, No abdominal Pain, No Hematochezia, No Melena Genitourinary : no irregular bleeding, No Dysuria, No Urinary Frequency, No Hematuria, No Urinary Incontinence, No Urgency, complaining of Flank Pain, No Urinary Flow Changes, No Hesitancy Musculoskeletal : No joint pain, No Myalgias, No Joint Swelling Skin : No Skin Lesions, No rash Neuro : No Weakness, No Numbness, No Paresthesias, No Loss of Consciousness, No Dizziness, No Headache Psych : No Anxiety/Panic, No Depression, No SI/HI/AH/VH, No Social Issues, Heme/Lymph: No Bruising, No Bleeding,No Lymphadenopathy Endocrine : No Polyuria, No Polydipsia, No Temperature Intolerance [facility] Past Medical History Medical History delivery delivered HTN (hypertension) Anemia Hypercholesteremia DVT (deep venous thrombosis) Kidney stones Surgical History Total knee replacement status Social History Social History Unable to assess alcohol history related to: Unknown Alcohol intake: never Patient Tobacco Use Status: Current everyday Tobacco user Substance Use Type: Prescription Drugs Advance Directives: No Do you have a plan to hurt others: No Plan Physical Exam 2 Vital Signs: Vital Signs: Last Vital Signs Temp 98 F 11/25/24 00:54 Pulse 75 11/25/24 03:46 Resp 20 11/25/24 03:46 BP 152/62 H 11/25/24 03:46 Pulse Ox 99 11/25/24 03:46 O2 Del Method Room Air 11/25/24 03:46 BMI result Body Mass Index 28.0 Const: Other: Appearance: Alert. Oriented X3. Patient crying, thrashing, rolling in bed Eyes: Pupils equal, round and reactive to light. ENT: Pharynx normal. Neck: Normal inspection. Neck supple. No lymph nodes noted. No crepitus CVS: Normal heart rate and rhythm. Pulses normal. Normal S1 and S2 Respiratory: No respiratory distress. Breath sounds normal. No Wheezing. No rales Abdomen: Soft and nontender. No rigidity. No distention. Bedside ultrasound does not show hydronephrosis. Skin: Skin warm and dry. Normal skin color. Normal skin turgor. Extremities: No lower extremity edema. No Lacerations. No Rash Neuro: Oriented X 3. No motor deficit. No sensory deficit. Moving all extremities. No slurred speech. CN 2 through 12 grossly intact Psych: calm, cooperative, normal affect Course Course Course Narrative: Patient was offered oxycodone, patient states that in [facility] she was seen on November 22, 2-1/2 days ago and she was given a prescription of oxycodone and she ran out of medications, patient states it does not help her pain. Patient states that the only thing that helps her is Dilaudid. I offered to the patient a dose of p.o. Dilaudid, patient states that that does not work, she needs IV Dilaudid. Reviewing our past medical records, seems that patient has a clear narcotic- seeking behavior. While we get lab work and records from [facility], I offered to the patient p.o. Dilaudid, patient accepted. Medications Administered Discontinued Medications Generic Name Dose Route Start Last Admin Trade Name Heq PRN Reason Stop Dose Admin Hydromorphone HCl 1 mg 11/25/24 01:27 11/25/24 01:32 Hydromorphone Hcl 2 Mg Tablet PO 11/25/24 01:28 1 mg ONCE ONE Administration Hydromorphone HCl 4 mg 11/25/24 04:12 11/25/24 04:18 Hydromorphone Hcl 2 Mg Tablet PO 11/25/24 04:13 4 mg ONCE ONE Administration Ondansetron HCl 4 mg 11/25/24 01:39 11/25/24 04:35 Ondansetron Odt 4 Mg Tab.Rapdis TRANSLINGU 11/25/24 01:40 Not Given ONCE ONE Potassium Chloride 40 meq 11/25/24 04:12 11/25/24 04:18 Potassium Chloride Packet 20 Meq Packet PO 11/25/24 04:13 40 meq ONCE ONE Administration Medical Decision Making Medical Decision Making [facility] Narrative: I was able to get records from [facility], patient was seen 2 days ago at [facility], patient had a CT scan done show wheezing no hydronephrosis or suspicious masses, puncture killed patient is in the right kidney and a few puncture, nonobstructing on the left kidney. Also, it was documented in patient's records from [facility] that the patient also frequently goes to the emergency room requesting Dilaudid. If she does not get Dilaudid, patient becomes very difficult. Patient grudgingly accepts oxycodone All of patient's labs are pending. Patient got labs done at [facility] 2 days ago, and 6 days ago here with us. I do not expect to see any significant abnormality from labs from 2 days ago from [facility]. I reviewed patient's mass pad, patient had 2 days ago a prescription for 10 tablets of oxycodone. Patient already ran out of them. Urinalysis pending. Patient usually has a large amount of blood in the urine, white blood cells and RBCs. Sometimes patient has leukocyte esterase, never nitrites. I reviewed patient's microbiology reports, patient has never grown specific bacteria in her urine. As mentioned above, patient is finish a course of antibiotics that was prescribed at [facility]. I do not believe that patient needs any further antibiotics or pain medications. All of patient's labs pending Sign out given to my colleague Dr. Prasad 11/25/2024 at 04:14 hours, Dr. Lang Prasad' note: I assumed care of this patient from my colleague, Dr. Joann Herman at 02:00 hours pending the patient's laboratory evaluation and urinalysis. My independent interpretation patient's laboratory evaluation is as follows: WBC low 4000. Normocytic anemia with an H&H of 10.1 and 30.4. Potassium low 3.0. BUN creatinine were normal. Urinalysis positive for protein, blood, leukocyte esterase. Microscopic greater than 20 RBCs, 11-20 WBCs, 6-10 squamous cells, calcium oxalate crystals present, 1+ bacteria. In reviewing the patient's previous microscopic reports, the patient's last 2 urinalysis/microscopic were very similar to today's . Microscopic report revealed no significant bacterial growth and the patient has had no positive cultures on any her previous urine samples. Therefore I will not start the patient on antibiotics at this time. Patient's hypokalemia was treated with potassium chloride 40 mEq orally. The patient is seen frequently here for renal colic and other painful issues. This is the patient's 6th visit this month. Patient has had multiple CT abdomen pelvis scans in the past and today had an bedside ultrasound by Dr. Herman which did not reveal any hydronephrosis. The patient was initially treated with Dilaudid 1 mg orally and I gave her a 2nd dose of Dilaudid 4 mg orally. The patient was discharged home. She was advised to strain her urine and to follow up with her PCP and her urologist for further treatment. 05:42 Patient is feeling better after the 2nd dose of Dilaudid orally. Patient was discharged home with printed and verbal instructions. Differential Diagnosis Differential Diagnoses: The differential diagnosis associated with the presentation includes (Chronic ureterolithiasis, nephrolithiasis, narcotic- seeking behavior) Lab Data 11/25/24 01:57 11/25/24 01:57 Labs: Lab Results 11/25/24 11/25/24 Range/Units 01:57 03:46 WBC 4.0 L (4.8-10.8) X10*3/uL RBC 3.60 L (4.20-5.50) X10*6/uL Hgb 10.1 L (12.0-16.0) g/dl Hct 30.4 L (37.0-47.0) % MCV 84.4 (80.0-98.0) fL MCH 28.1 (27.0-33.0) pg MCHC 33.2 (31.0-35.0) g/dl RDW 15.2 (11.0-16.0) % Plt Count 241 (160-400) X10*3/uL MPV 9.4 (9.4-12.3) fL Immature Gran % (Auto) 0.0 (0.0-0.4) % Neut % (Auto) 49.6 (45-73) % Lymph % (Auto) 38.5 (20-40) % [place] % (Auto) 8.4 (2-11) % Eos % (Auto) 3.0 (0-4) % Baso % (Auto) 0.5 (0-2) % Lymph # (Auto) 1.6 (1.2-4.9) X10*3/uL [place] # (Auto) 0.3 (0.1-1.2) X10*3/uL Eos # (Auto) 0.1 (0.0-0.4) X10*3/uL Baso # (Auto) 0.0 (0.0-0.2) X10*3/uL Abs Immat Gran (auto) 0.00 (0.00-0.03) X10*3/uL Absolute Neuts (auto) 2.0 (2.0-8.3) x10*3/uL Absolute Nucleated RBC 0.000 (0.0-0.012) X10*3/uL Nucleated RBC % (auto) 0.0 (0.0-0.2) /100WBC Sodium 145 (135-145) mmol/L Potassium 3.0 L D (3.3-5.1) mmol/L Chloride 111 H (96-108) mmol/L Carbon Dioxide 24 (22-29) mmol/L Anion Gap 13 (12-20) BUN 12 (9-16) mg/dL Creatinine 0.55 (0.5-1.4) mg/dL Estim Creat Clear Calc 95.4 Estimated GFR > 60 Random Glucose 97 (60-115) mg/dL Calcium 8.5 (8.4-10.2) mg/dL Urine Color Dark Yellow Urine Appearance Cloudy Urine pH 6.0 (5.0-9.0) Ur Specific [place] 1.025 (1.005-1.025) Urine Protein 30 (1+) H (Neg-Trace) mg/dL Urine Glucose (UA) Negative (Negative) mg/dL Urine Ketones Trace (Negative) mg/dL Urine Blood Large (3+) H (Negative) Urine Nitrite Negative (Negative) Ur Leukocyte Esterase Moderate (2+) H (Negative) Urine RBC >20 H (0-2) /HPF Urine WBC 11-20 H (0-5) /HPF Ur Squamous Epith Cells 6-10 (0-2) /HPF Calcium Oxalate Crystal Present Urine Bacteria 1+ (None Seen) Hyaline Casts 0-2 (0-2) /LPF Critical Care Time Critical Care Time Critical Care Time: Yes Total Critical Care Time: 35 Attestation: I have personally provided critical care time. Time includes review of lab data, radiology results, discussion with consultants, and monitoring for potential decompensation. Intervention performed as documented. Discharge Plan Discharge Clinical Impression: Chronic pain, Hematuria, Acute hypokalemia Patient Disposition: Home, Self-Care Instructions: Chronic Pain (ED) Additional Instructions: Your blood work did reveal low potassium in you were given potassium chloride here in the emergency department. Your urinalysis did reveal blood in your urine. You had similar urinalysis in the past in you did not grow any bacteria in your urine therefore I am not going to start you on an antibiotic at this time. If you grow a significant bacteria out of your urine, the emergency department will contact you and start you on antibiotics. Continue taking your pain medications as prescribed by your providers. You should ask your provider to refer you to a pain management clinic. Follow-up with your doctor in 2 days. Please return to the emergency department if your symptoms get worse or if you develop any symptoms that are concerning to you. Prescriptions: No Action quetiapine 25 mg tablet 1 tab PO BID PRN (Reason: anxiety) atorvastatin 10 mg tablet 1 tab PO DAILY polyvinyl alcohol [Artificial Tears (polyvin alc)] 1.4 % drops 1 drp ophthalmic (eye) TID ondansetron HCl 4 mg tablet 1 tab PO Q8H PRN (Reason: nausea) gabapentin 400 mg capsule 1 cap PO BEDTIME topiramate 25 mg tablet 1 tab PO BID clonidine HCl 0.2 mg tablet 1 tab PO BID PRN (Reason: panic attack) cyanocobalamin (vitamin B-12) 500 mcg tablet 1 tab PO DAILY ascorbic acid (vitamin C) 250 mg tablet 1 tab PO BID amlodipine 10 mg tablet 1 tab PO DAILY mirtazapine 30 mg tablet 1 tab PO BEDTIME mirtazapine 30 mg tablet 1 tab PO BEDTIME docusate sodium 100 mg capsule 1 - 2 cap PO BEDTIME PRN (Reason: constipation) gabapentin 100 mg capsule 1 cap PO TID PRN (Reason: anxiety) zolpidem 10 mg tablet 1 tab PO BEDTIME PRN (Reason: insomnia) albuterol sulfate [ProAir HFA] 90 mcg/actuation HFA aerosol inhaler 2 puff PO Q4-6H PRN (Reason: dyspnea) fluoxetine 20 mg capsule 3 cap PO QAM loratadine 10 mg tablet 1 tab PO DAILY loratadine 10 mg tablet 1 tab PO DAILY tramadol 50 mg tablet 50 mg PO Q8H PRN (Reason: pain) Qty: 3 0RF morphine 15 mg tablet 15 mg PO BID PRN (Reason: pain) Qty: 8 0RF cefuroxime axetil 250 mg tablet 250 mg PO BID 7 Days Qty: 14 0RF nitrofurantoin monohyd/m-cryst [Macrobid] 100 mg capsule 100 mg PO BID Qty: 14 0RF Rx Instructions: must administer with a meal/food phenazopyridine [Pyridium] 100 mg tablet 100 mg PO TID PRN (Reason: pain) Qty: 6 0RF sennosides [senna] 8.6 mg tablet 8.6 mg PO BEDTIME Qty: 14 0RF docusate sodium [Colace] 100 mg capsule 100 mg PO BID Qty: 20 0RF docusate sodium [Colace] 100 mg capsule 100 mg PO BID PRN (Reason: Constipation) Qty: 14 0RF ondansetron 4 mg tablet,disintegrating 4 mg PO Q6H Qty: 14 0RF nitrofurantoin monohyd/m-cryst [Macrobid] 100 mg capsule 100 mg PO BID 7 Days Qty: 14 0RF Rx Instructions: must administer with a meal/food cephalexin 500 mg capsule 500 mg PO Q8H 7 Days Qty: 21 0RF phenazopyridine [Pyridium] 200 mg tablet 200 mg PO TID PRN (Reason: pain) Qty: 6 0RF ondansetron 4 mg tablet,disintegrating 4 mg PO Q8H PRN (Reason: nausea and vomiting) Qty: 10 0RF cephalexin 500 mg capsule 500 mg PO BID Qty: 14 0RF ondansetron HCl 4 mg tablet 4 mg PO Q8H PRN (Reason: nausea and vomiting) Qty: 10 0RF tamsulosin [Flomax] 0.4 mg capsule 0.4 mg PO DAILY Qty: 6 0RF oxycodone 5 mg tablet 5 mg PO Q6H PRN (Reason: pain, moderate) Qty: 10 0RF Rx Instructions: Partial Fill upon patient request. ondansetron 4 mg tablet,disintegrating 4 mg PO Q8H PRN (Reason: nausea and vomiting) Qty: 10 0RF dicyclomine 10 mg capsule 10 mg PO BID Qty: 14 0RF cefuroxime axetil 250 mg tablet 250 mg PO BID 7 Days Qty: 14 0RF ondansetron 4 mg tablet,disintegrating 4 mg PO Q8H PRN (Reason: nausea and vomiting) Qty: 7 0RF tamsulosin [Flomax] 0.4 mg capsule 0.4 mg PO BEDTIME Qty: 14 0RF oxycodone 5 mg tablet 5 mg PO Q8H PRN (Reason: severe pain (scale score 7-10)) Qty: 9 0RF Rx Instructions: Partial Fill upon patient request. cephalexin 500 mg capsule 500 mg PO BID Qty: 12 0RF acetaminophen 500 mg capsule 1,000 mg PO Q8H PRN (Reason: fever or pain) Qty: 14 0RF phenazopyridine 200 mg tablet 200 mg PO TID PRN (Reason: Dysuria) Qty: 6 0RF ondansetron 4 mg tablet,disintegrating 4 mg PO Q6H PRN (Reason: nausea and vomiting) Qty: 10 0RF cefdinir 300 mg capsule 300 mg PO BID 5 Days Qty: 10 0RF acetaminophen [Tylenol] 325 mg capsule 650 mg PO Q6H PRN (Reason: pain) Qty: 30 0RF Print Language: Mohawk
[2024-11-25 02:04] LABS: Basophils Percent Auto 0.5 % (0-2); Eosinophils Absolute Auto 0.1 X10*3/uL (0.0-0.4); Hematocrit 30.4 % (37.0-47.0); Hemoglobin 10.1 g/dl (12.0-16.0); Lymphocytes Absolute Auto 1.6 X10*3/uL (1.2-4.9); Lymphocytes Percent Auto 38.5 % (20-40); MANUAL DIFF FLAG NO; Mean Corpuscular HGB Conc 33.2 g/dl (31.0-35.0); Mean Corpuscular Hemoglobin 28.1 pg (27.0-33.0); Mean Corpuscular Volume 84.4 fL (80.0-98.0); Mean Platelet Volume 9.4 fL (9.4-12.3); Monocytes Absolute Auto 0.3 X10*3/uL (0.1-1.2); Monocytes Percent Auto 8.4 % (2-11); Neutrophils Percent Auto 49.6 % (45-73); Platelet Count 241 X10*3/uL (160-400); Red Cell Distribution Width 15.2 % (11.0-16.0)
[2024-11-25 02:15] LABS: Anion Gap 13 (12-20); Blood Urea Nitrogen 12 mg/dL (9-16); Calcium 8.5 mg/dL (8.4-10.2); Carbon Dioxide 24 mmol/L (22-29); Chloride 111 mmol/L (96-108); Creatinine Clr Calc Pharmacy 95.4; Estimated Glomerular Filt Rate > 60; Glucose Random 97 mg/dL (60-115); Sodium 145 mmol/L (135-145)
[2024-11-25 02:32] VITALS: RESP 18
[2024-11-25 03:46] VITALS: BP 152/62; PULSE 75; RESP 20; O2SAT 99
[2024-11-25 03:52] LABS: Appearance Urine Cloudy; Color Urine Dark Yellow; Glucose Urine UA Negative (Negative); Leukocyte Esterase Urine Moderate (2+) (Negative); Nitrite Urine Negative (Negative); Specific Gravity - Urine 1.025 (1.005-1.025); UMIC TRIGGER UACC YES; Urine Blood Large (3+) (Negative); Urine Ketones Trace mg/dL (Negative); Urine Protein 30 (1+) mg/dL (Neg-Trace)
[2024-11-25 04:00] LABS: Bacteria Urine 1+ (None Seen); Calcium Oxalate Crystals Urine Present; Hyaline Casts Urine 0-2 /LPF (0-2); RBC Urine >20 /HPF (0-2); UACC Culture Trigger YES
[2024-11-25] MEDS: Potassium Chloride Packet 20 MEQ PACKET 40 MEQ PO (04:18)
[2024-11-25] MEDS: HYDROmorphone HCl 2 MG TABLET 4 MG PO (04:18)
[2024-11-25 05:55] VITALS: BP 140/72; PULSE 84; RESP 16; TEMP 36.4; O2SAT 99
== END 2024-11-25 05:56 | disposition home or self-care (01) ==
PROVIDERS: Emergency Medicine; Emergency Provider Emergency Medicine Emergency Medical Services
DX: G89.29 Other chronic pain (principal); R31.9 Hematuria, unspecified; E87.6 Hypokalemia; Z76.5 Malingerer [conscious simulation]; I10 Essential (primary) hypertension; E78.00 Pure hypercholesterolemia, unspecified; Z86.718 Personal history of other venous thrombosis and embolism; Z79.02 Long term (current) use of antithrombotics/antiplatelets; Z79.899 Other long term (current) drug therapy
CPT/HCPCS: 36415; 80048; 81001; 85025; 87086; 99283; 99284

== ENCOUNTER 2024-11-25 17:47 | Emergency (ER) | payer MEDICAID, SELFPAY ==
[2024-11-25 17:56] VITALS: BP 131/63; BP 156/96; PULSE 103; PULSE 92; RESP 18; O2SAT 95; O2SAT 97; BMI 26.1
--- NOTE | 2024-11-25 18:04 | ED.GENADULT ---
HPI - General Adult General Chief complaint: Abdominal Pain Stated complaint: kidney stone,blood in urine Time Seen by Provider: 11/25/24 18:24 Source: patient and EMS Limitations: no limitations History of Present Illness ED Provider: Dr. Joann Herman HPI narrative: Patient comes to the emergency room by ambulance. Patient was seen here yesterday for the same complaint. Patient complaining of chronic flank pain. However, when patient was EN route to the hospital, EMS gave her an IM dose of Toradol. Patient states that she is allergic to Toradol. Patient states that she is having an allergic reaction. Patient states that her tongue is deviating to the left and that her left eye is twitching. Of note, patient was seen here yesterday. Patient came in seeking pain medication for her chronic pain, specifically requested Dilaudid. Today, patient is asking for more Dilaudid, stating that this time she will like to have it IV rather than p.o. as noted yesterday, patient has had over 16 CT scans on ultrasounds of the abdomen/pelvis/renal and that is only at [facility]. Patient has gotten more imaging done at [facility] per notes that were requested from [facility] yesterday. Related Data Home Medications ?Medication ?Instructions ?Recorded ?Confirmed albuterol sulfate 90 mcg/actuation 2 puff PO Q4-6H PRN dyspnea 11/26/20 11/26/20 aerosol inhaler (ProAir HFA) amlodipine 10 mg tablet 1 tab PO DAILY 11/26/20 11/26/20 ascorbic acid (vitamin C) 250 mg 1 tab PO BID 11/26/20 11/26/20 tablet atorvastatin 10 mg tablet 1 tab PO DAILY 11/26/20 11/26/20 clonidine HCl 0.2 mg tablet 1 tab PO BID PRN panic attack 11/26/20 11/26/20 cyanocobalamin (vitamin B-12) 500 1 tab PO DAILY 11/26/20 11/26/20 mcg tablet fluoxetine 20 mg capsule 3 cap PO QAM 11/26/20 11/26/20 gabapentin 100 mg capsule 1 cap PO TID PRN anxiety 11/26/20 11/26/20 gabapentin 400 mg capsule 1 cap PO BEDTIME 11/26/20 11/26/20 loratadine 10 mg tablet 1 tab PO DAILY 11/26/20 11/26/20 mirtazapine 30 mg tablet 1 tab PO BEDTIME 11/26/20 11/26/20 polyvinyl alcohol 1.4 % eye drops 1 drp ophthalmic (eye) TID 11/26/20 11/26/20 (Artificial Tears (polyvinyl alcohol)) quetiapine 25 mg tablet 1 tab PO BID PRN anxiety 11/26/20 11/26/20 topiramate 25 mg tablet 1 tab PO BID 11/26/20 11/26/20 zolpidem 10 mg tablet 1 tab PO BEDTIME PRN insomnia 11/26/20 11/26/20 Previous Rx's ?Medication ?Instructions ?Recorded tramadol 50 mg tablet 50 mg PO Q8H PRN pain #3 tabs 11/26/20 sennosides 8.6 mg tablet (senna) 8.6 mg PO BEDTIME #14 tabs 07/21/21 docusate sodium 100 mg capsule 100 mg PO BID PRN Constipation #14 11/23/21 (Colace) caps dicyclomine 10 mg capsule 10 mg PO BID #14 caps 08/14/24 oxycodone 5 mg tablet 5 mg PO Q8H PRN severe pain (scale 10/17/24 score 7-10) #9 tabs tamsulosin 0.4 mg capsule (Flomax) 0.4 mg PO BEDTIME #14 caps 10/17/24 acetaminophen 500 mg capsule 1,000 mg (2 x 500 mg) PO Q8H PRN 11/19/24 fever or pain #14 caps ondansetron 4 mg disintegrating 4 mg PO Q6H PRN nausea and 11/19/24 tablet vomiting #10 tabs phenazopyridine 200 mg tablet 200 mg PO TID PRN Dysuria 6 doses 11/19/24 #6 tabs acetaminophen 325 mg tablet 650 mg (2 x 325 mg) PO Q6H PRN 12/20/24 fever or pain #20 tabs cyclobenzaprine 10 mg tablet 10 mg PO TID PRN muscle spasm #20 12/20/24 tabs Allergies Allergy/AdvReac Type Severity Reaction Status Date / Time aspirin (ASA) Allergy Intermediate RASH, Verified 12/20/24 00:58 nausea and vomiting ibuprofen (IBUPROFEN) Allergy Intermediate RASH Verified 12/20/24 00:58 nicotine Allergy Intermediate RASH FROM Verified 12/20/24 00:58 NICOTINE PATCH, nausea and vomiting ketorolac (From TORADOL) Allergy Mild RAPID HR Verified 12/20/24 00:58 AND HIVES haloperidol (From Haldol) Allergy Anaphylaxis Verified 12/20/24 00:58 metoclopramide (From Reglan) Allergy Unknown Verified 12/20/24 00:58 Review of Systems Review of Systems: Constitutional : No Weight loss, No Fever, No Chills, No Night Sweats, No Fatigue, No Malaise, complaining of an allergic reaction ENT/Mouth : No Hearing loss, No Ear Pain, No Nasal Congestion, No Sinus Pain, No Hoarseness, No sore throat, No Rhinorrhea, No Swallowing Difficulty Eyes: No Eye Pain, No Swelling, No Redness, No Foreign Body, No Discharge, No Vision Changes Cardiovascular : No Chest Pain, No SOB, No Dyspnea on Exertion, No Orthopnea, No Edema, No Palpitations Respiratory : No Cough, No Sputum, No Wheezing, No Smoke Exposure, No Dyspnea Gastrointestinal : No Nausea, No Vomiting, No Diarrhea, No Constipation, No abdominal Pain, No Hematochezia, No Melena Genitourinary : no irregular bleeding, No Dysuria, No Urinary Frequency, No Hematuria, No Urinary Incontinence, No Urgency, complaining of chronic bilateral Flank Pain, No Urinary Flow Changes, No Hesitancy Musculoskeletal : No joint pain, No Myalgias, No Joint Swelling Skin : No Skin Lesions, No rash Neuro : No Weakness, No Numbness, No Paresthesias, No Loss of Consciousness, No Dizziness, No Headache Psych : No Anxiety/Panic, No Depression, No SI/HI/AH/VH, No Social Issues, Heme/Lymph: No Bruising, No Bleeding,No Lymphadenopathy Endocrine : No Polyuria, No Polydipsia, No Temperature Intolerance [facility] Past Medical History Medical History Drug-seeking behavior delivery delivered HTN (hypertension) Anemia Hypercholesteremia DVT (deep venous thrombosis) Kidney stones Surgical History Total knee replacement status Social History Social History Unable to assess alcohol history related to: Unknown Alcohol intake: never Patient Tobacco Use Status: Current everyday Tobacco user Smoked in Last 30 Days: No Use of substances other than those prescribed or required for medical reasons: No Substance Use Type: Prescription Drugs Advance Directives: No Advance Directives Information Provided: Yes Do you have a plan to hurt others: No Plan Physical Exam ED Vital Signs: Vital Signs - 24 hr 11/25/24 17:56 Pulse Rate 92 Respiratory Rate 18 Blood Pressure 131/63 Pulse Oximetry 97 Oxygen Delivery Method Room Air BMI result Body Mass Index 26.1 Const Other: Appearance: Alert. Oriented X3. Eyes: Pupils equal, round and reactive to light. ENT: Pharynx normal. No angioedema Neck: Normal inspection. Neck supple. No lymph nodes noted. No crepitus CVS: Normal heart rate and rhythm. Pulses normal. Normal S1 and S2 Respiratory: No respiratory distress. Breath sounds normal. No Wheezing. No rales Abdomen: Soft and nontender. No rigidity. No distention. Skin: Skin warm and dry. Normal skin color. Normal skin turgor. Patient has no hives, but self-induced scratches around the neck, no were else in her body. Extremities: No lower extremity edema. No Lacerations. No Rash Neuro: Oriented X 3. No motor deficit. No sensory deficit. Moving all extremities. No slurred speech. CN 2 through 12 grossly intact. Patient forcefully deviating the tongue to the left. When asked to not forcefully deviate the tone, patient able to return to normal. Patient forcefully twitching her eye on the left Psych: Histrionic Course Course Course Narrative: Patient requesting IV Dilaudid. Unfortunately, patient has a clear pattern of behavior, seeking Dilaudid. I discussed with the patient that today we will not provide her with Dilaudid. I offered different medications to the patient, patient declined Patient was given IM Toradol today by the paramedics. Patient claimed to have an allergic reaction, patient did not have any signs of a hypersensitivity reaction or an allergic reaction. Patient was prophylactically given IV Solu-Medrol, Benadryl and Pepcid. However, I am not convinced that patient had an allergic reaction at all. Patient's vitals stable: Blood pressure 131/63, heart rate 92, respirations 18, oxygen saturation 97% on room air. Patient had a very thorough workup at [facility] 4 days ago, and yesterday when patient was here, patient had blood work and urine done. At this time, there is no need to repeat any labs or imaging. Patient is ready for discharge Medications Administered Discontinued Medications Generic Name Dose Route Start Last Admin Trade Name Kim PRN Reason Stop Dose Admin Diphenhydramine HCl 50 mg 11/25/24 17:58 11/25/24 18:08 Diphenhydramine Hcl 50 Mg/Ml Vial IVPUSH 11/25/24 17:59 50 mg ONCE ONE Administration Famotidine 20 mg 11/25/24 17:58 11/25/24 18:09 Famotidine/Pf 20 Mg/2 Ml Vial IVPUSH 11/25/24 17:59 20 mg ONCE ONE Administration Methylprednisolone Sodium Succinate 125 mg 11/25/24 17:58 11/25/24 18:09 Methylprednisolone Sod Succ 125 Mg Vial IVPUSH 11/25/24 17:59 125 mg ONCE ONE Administration Medical Decision Making Medical Decision Making MDM Narrative: Patient's vitals stable Patient was prophylactically treated for allergic reaction, given the patient the benefit of the doubt. Patient did not display any signs of an allergic reaction. Physical exam after IV medications, physical exam is normal, same as when patient arrived to the emergency room, no wheezing, no hives I Discussed with the patient that today she will not be given any p.o. Dilaudid, patient agrees and states that she is ready to go home, patient calm and cooperative Discharge Plan Discharge Clinical Impression: Chronic pain Patient Disposition: Home, Self-Care Instructions: Chronic Pain (ED) Additional Instructions: Please follow-up with your primary care physician tomorrow. If you have any worsening or new symptoms, please return to the emergency room or call 911 Prescriptions: No Action quetiapine 25 mg tablet 1 tab PO BID PRN (Reason: anxiety) atorvastatin 10 mg tablet 1 tab PO DAILY polyvinyl alcohol [Artificial Tears (polyvin alc)] 1.4 % drops 1 drp ophthalmic (eye) TID gabapentin 400 mg capsule 1 cap PO BEDTIME topiramate 25 mg tablet 1 tab PO BID clonidine HCl 0.2 mg tablet 1 tab PO BID PRN (Reason: panic attack) cyanocobalamin (vitamin B-12) 500 mcg tablet 1 tab PO DAILY ascorbic acid (vitamin C) 250 mg tablet 1 tab PO BID amlodipine 10 mg tablet 1 tab PO DAILY mirtazapine 30 mg tablet 1 tab PO BEDTIME gabapentin 100 mg capsule 1 cap PO TID PRN (Reason: anxiety) zolpidem 10 mg tablet 1 tab PO BEDTIME PRN (Reason: insomnia) albuterol sulfate [ProAir HFA] 90 mcg/actuation HFA aerosol inhaler 2 puff PO Q4-6H PRN (Reason: dyspnea) fluoxetine 20 mg capsule 3 cap PO QAM loratadine 10 mg tablet 1 tab PO DAILY tramadol 50 mg tablet 50 mg PO Q8H PRN (Reason: pain) Qty: 3 0RF sennosides [senna] 8.6 mg tablet 8.6 mg PO BEDTIME Qty: 14 0RF docusate sodium [Colace] 100 mg capsule 100 mg PO BID PRN (Reason: Constipation) Qty: 14 0RF dicyclomine 10 mg capsule 10 mg PO BID Qty: 14 0RF tamsulosin [Flomax] 0.4 mg capsule 0.4 mg PO BEDTIME Qty: 14 0RF oxycodone 5 mg tablet 5 mg PO Q8H PRN (Reason: severe pain (scale score 7-10)) Qty: 9 0RF Rx Instructions: Partial Fill upon patient request. acetaminophen 500 mg capsule 1,000 mg PO Q8H PRN (Reason: fever or pain) Qty: 14 0RF phenazopyridine 200 mg tablet 200 mg PO TID PRN (Reason: Dysuria) Qty: 6 0RF ondansetron 4 mg tablet,disintegrating 4 mg PO Q6H PRN (Reason: nausea and vomiting) Qty: 10 0RF cyclobenzaprine 10 mg tablet 10 mg PO TID PRN (Reason: muscle spasm) Qty: 20 0RF acetaminophen 325 mg tablet 650 mg PO Q6H PRN (Reason: fever or pain) Qty: 20 0RF Interventions: ED Discharge Assessment Last Done: 11/25/24 18:37 Discharge Date/Time: 11/25/24 18:39 Print Language: Danish
[2024-11-25] MEDS: diphenhydrAMINE HCL 50 MG/ML VIAL IVPUSH (18:08)
[2024-11-25] MEDS: Famotidine/PF 20 MG/2 ML VIAL IVPUSH (18:09)
--- OUTSIDE RECORDS SUMMARY | 2024-11-25 18:31 | XMS_ITS | Encounter Summary ---
Author Organization [facility] Address [address] [place] [address] Care Team Providers Care Grill Associate Name Role Phone Physician, No Pcp Primary Care Provider Unavaila ble Encounter Details Date Type Department Care Team (Late st Contact Info) Description 09/25/[address] [facility] Lab [address] [facility] [place] [address] Zachery Chi PA [address] [place] [address] Calculus of ureter Social History [...] PA LAB BLOOD ORDERABLES Final Res ult [facility] [address] [place] [address], documented in this encounter Visit Diagnoses Diagnosis Calculus of ureter documented in this encounter Care Teams Grill Associate Relationship Specialty Start Date End Date Physician, No Pcp PCP - General 08/21/24 documented as of this encounter
[2024-11-25 18:37] VITALS: BP 128/76; PULSE 93; RESP 18; TEMP 36.8; O2SAT 97
--- NOTE | 2024-11-25 18:38 | PC.NURSE ---
this nurse took over care of patient from [facility] at 620, pt discharging to home per provider, pt previously medicated by [facility]. pt refusing to answer questions and upset that she is being discharged. provider is aware and this was expected of the patient. pt ambulatory with steady gait.
== END 2024-11-25 18:39 | disposition home or self-care (01) ==
LOC: HO.ED 18:30
PROVIDERS: Emergency Provider Emergency Medicine
DX: G89.29 Other chronic pain (principal); R10.9 Unspecified abdominal pain; T78.40XA Allergy, unspecified, initial encounter; X58.XXXA Exposure to other specified factors, initial encounter; Z76.5 Malingerer [conscious simulation]
CPT/HCPCS: 96374; 96375; 99282; 99284; J1200; J1308; J2919

== ENCOUNTER 2024-11-29 03:06 | Emergency (ER) | payer MEDICAID, SELFPAY ==
--- NOTE | 2024-11-29 | ECG_ITS ---
Test Reason : CHEST PAIN Blood Pressure : */* mmHG Vent. Rate : 71 BPM Atrial Rate : 71 BPM P-R Int : 134 ms QRS Dur : 76 ms QT Int : 410 ms P-R-T Axes : 64 18 38 degrees QTcB Int : 445 ms Normal sinus rhythm Normal ECG When compared with ECG of 15-Nov-2024 18:12, No significant change was found Referred By: Generic ED Physician Electronically Signed By: BRENDEN KERN MD
--- NOTE | ~2024-11-29 | XR_ITS ---
CLINICAL HISTORY: cp 1 view chest x-ray Comparison: CR/SR - XR CHEST 1V - 11/14/24 07:54 EDT Findings: No consolidation or effusion. Heart size is normal. No acute fracture. IMPRESSION: 1. No acute findings. This document has been electronically signed by: Blossom Mejai MD on 11/29/2024 05:40:19
[2024-11-29 03:09] VITALS: BP 134/65; BP 149/83; PULSE 74; PULSE 81; RESP 16; TEMP 36.6; O2SAT 98; O2SAT 99; BMI 26.2
[2024-11-29 03:37] LABS: MANUAL DIFF FLAG NO
[2024-11-29 03:38] LABS: Basophils Percent Auto 0.3 % (0-2); Eosinophils Absolute Auto 0.1 X10*3/uL (0.0-0.4); Hematocrit 32.8 % (37.0-47.0); Hemoglobin 10.5 g/dl (12.0-16.0); Imm Gran Abs Auto 0.01 X10*3/uL (0.00-0.03); Imm Gran Pct Auto 0.2 % (0.0-0.4); Lymphocytes Absolute Auto 2.3 X10*3/uL (1.2-4.9); Lymphocytes Percent Auto 39.6 % (20-40); Mean Corpuscular Volume 84.3 fL (80.0-98.0); Mean Platelet Volume 9.8 fL (9.4-12.3); Monocytes Absolute Auto 0.4 X10*3/uL (0.1-1.2); Monocytes Percent Auto 6.3 % (2-11); Neutrophils Absolute Auto 3.1 x10*3/uL (2.0-8.3); Neutrophils Percent Auto 51.6 % (45-73); Platelet Count 251 X10*3/uL (160-400); Red Blood Count 3.89 X10*6/uL (4.20-5.50); Red Cell Distribution Width 15.6 % (11.0-16.0); White Blood Count 5.9 X10*3/uL (4.8-10.8)
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
--- OUTSIDE RECORDS SUMMARY | 2024-11-29 03:52 | XMS_ITS | Encounter Summary ---
Author Organization [facility] Address [address] [place] [address] Care Team Providers Care Director Paid Media Name Role Phone Physician, No Pcp Primary Care Provider Unavaila ble Encounter Details Date Type Department Care Team (Late st Contact Info) Description 09/25/2024 Lab Requisition [facility] Lab [address] [facility] [place] [address] Zachery Chi PA [address] [place] [address] Calculus of ureter Social History [...] PM EDT 09/25/2024 6:18 PM EDT us Zcahery Chi PA LAB BLOOD ORDERABLES Final Res ult [facility] [address] [place] [address], documented in this encounter Visit Diagnoses Diagnosis Calculus of ureter documented in this encounter Care Teams Director Paid Media Relationship Specialty Start Date End Date Physician, No Pcp PCP - General 08/21/24 documented as of this encounter
[2024-11-29 03:57] LABS: Alanine Aminotransferase 35 U/L (0-31); Albumin Level 4.2 g/dL (3.5-5.0); Anion Gap 12 (12-20); Aspartate Amino Transferase 34 U/L (5-31); Bilirubin Total 0.3 mg/dL (0.0-1.0); Blood Urea Nitrogen 18 mg/dL (9-16); Carbon Dioxide 26 mmol/L (22-29); Chloride 110 mmol/L (96-108); Creatinine Clr Calc Pharmacy 88.1; Estimated Glomerular Filt Rate > 60; Glucose Random 108 mg/dL (60-115); Sodium 144 mmol/L (135-145); Total Protein 6.7 g/dL (6.5-8.0)
[2024-11-29] MEDS: LORazepam 1 MG TABLET PO (04:00)
[2024-11-29 04:03] LABS: Troponin-I High Sensitivity < 2.7 ng/L (<3.5-17.0)
[2024-11-29 04:08] LABS: Alkaline Phosphatase 91 U/L (39-117)
[2024-11-29] MEDS: Ondansetron ODT 4 MG TAB.RAPDIS TRANSLINGU (04:17)
[2024-11-29 04:19] VITALS: BP 123/67; PULSE 61; RESP 16; TEMP 36.6; O2SAT 98
== END 2024-11-29 04:21 | disposition home or self-care (01) ==
PROVIDERS: Emergency Provider Emergency Medicine; PCP Family Medicine
DX: R07.9 Chest pain, unspecified (principal); F41.9 Anxiety disorder, unspecified; I10 Essential (primary) hypertension; I82.409 Acute embolism and thrombosis of unspecified deep veins of unspecified lower extremity
CPT/HCPCS: 36415; 71045; 80053; 84484; 85025; 93005; 99283

== ENCOUNTER → 2024-11-29 03:13 | Outpatient (BNV) | payer MEDICAID, SELFPAY | PROVIDERS: Emergency Provider Emergency Medicine; PCP Family Medicine; Visit Provider Internal Medicine Cardiovascular Disease | DX: R07.9 Chest pain, unspecified (principal) | CPT/HCPCS: 93010 ==

== ENCOUNTER → 2024-11-29 03:50 | Outpatient (BNV) | payer MEDICAID, SELFPAY | PROVIDERS: Emergency Provider Emergency Medicine; PCP Family Medicine; Visit Provider Radiology Diagnostic Radiology | DX: R07.9 Chest pain, unspecified (principal) | CPT/HCPCS: 71045 ==

== ENCOUNTER 2024-12-20 00:38 | Emergency (ER) | payer MEDICAID, SELFPAY ==
--- NOTE | ~2024-12-20 | XR_ITS ---
CLINICAL HISTORY: pian 2 views cervical spine Comparison: None provided Findings: Normal alignment. Multilevel disc height loss with reactive endplate change greatest at C5-6 and C6-7. No significant degenerative change. No prevertebral soft tissue swelling. Carotid calcium. IMPRESSION: Degenerative change in the lower cervical spine. This document has been electronically signed by: Blossom Mejia MD on 12/20/2024 03:05:09
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
[2024-12-20 00:48] VITALS: BP 122/78; BP 130/68; PULSE 90; PULSE 99; RESP 18; TEMP 36.6; O2SAT 99; BMI 26.1
--- NOTE | 2024-12-20 01:30 | PC.NURSE ---
pt self removed c collar stating it was too uncomfortable
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
[2024-12-20] MEDS: Cyclobenzaprine HCl 10 MG TABLET PO (02:08)
[2024-12-20] MEDS: Acetaminophen 325 MG TABLET 975 MG PO (02:09)
--- NOTE | 2024-12-20 03:00 | PC.NURSE ---
ambulating steadily, states pain is improved. alert, oriented, calm. states she wants to be discharged
[2024-12-20 03:12] VITALS: BP 125/76; PULSE 87; RESP 16; TEMP 36.6; O2SAT 99
== END 2024-12-20 03:14 | disposition home or self-care (01) ==
PROVIDERS: Emergency Provider Emergency Medicine
DX: S16.1XXA Strain of muscle, fascia and tendon at neck level, initial encounter (principal); R07.89 Other chest pain; M54.2 Cervicalgia; R10.2 Pelvic and perineal pain; V43.52XA Car driver injured in collision with other type car in traffic accident, initial encounter; Y93.9 Activity, unspecified; Y92.410 Unspecified street and highway as the place of occurrence of the external cause; Y99.8 Other external cause status; Z79.899 Other long term (current) drug therapy
CPT/HCPCS: 71046; 72040; 99283; 99284

== ENCOUNTER → 2024-12-20 01:44 | Outpatient (BNV) | payer MEDICAID, SELFPAY | PROVIDERS: Emergency Provider Emergency Medicine; Visit Provider Radiology Diagnostic Radiology | DX: M50.321 Other cervical disc degeneration at C4-C5 level (principal); M54.6 Pain in thoracic spine | CPT/HCPCS: 71046; 72040 ==

== ENCOUNTER 2024-12-28 13:02 | Emergency (ER) | payer MEDICAID, SELFPAY ==
[2024-12-28 13:06] VITALS: BP 150/110; PULSE 120; O2SAT 98
[2024-12-28 13:08] VITALS: BP 157/98; PULSE 109; RESP 24; TEMP 37; O2SAT 100; BMI 26.1
[2024-12-28 13:43] LABS: MANUAL DIFF FLAG NO
--- NOTE | 2024-12-28 13:43 | ED.ABDPAIN ---
HPI - Abdominal Pain General Chief Complaint: Abdominal Pain Stated Complaint: ABD PAIN,HEMATURIA,HX KIDNEY STONES PER EMS Time Seen by Provider: 12/28/24 13:35 Source: patient, EMS and old records reviewed Mode of arrival: EMS Limitations: no limitations History of Present Illness ED Provider: DR. Swan HPI narrative: 59-year-old female with history of kidney stones patient has a history of multiple emergency room visits related to possible kidney stone issue since 2021, had numerous CTs of the abdomen and pelvis over 6 CTs in the last 6 months, patient received 100 mcg of fentanyl by EMS with no relief of pain, patient always having same presentation seek for narcotic pain medication. +Hematuria, + dysuria. intra-abdominal surgical history significant for C-sections , normal bowel movement this morning, + passing flatus, +nausea, no vomiting. Related Data Home Medications ?Medication ?Instructions ?Recorded ?Confirmed albuterol sulfate 90 mcg/actuation 2 puff PO Q4-6H PRN dyspnea 11/26/20 11/26/20 aerosol inhaler (ProAir HFA) amlodipine 10 mg tablet 1 tab PO DAILY 11/26/20 11/26/20 ascorbic acid (vitamin C) 250 mg 1 tab PO BID 11/26/20 11/26/20 tablet atorvastatin 10 mg tablet 1 tab PO DAILY 11/26/20 11/26/20 clonidine HCl 0.2 mg tablet 1 tab PO BID PRN panic attack 11/26/20 11/26/20 cyanocobalamin (vitamin B-12) 500 1 tab PO DAILY 11/26/20 11/26/20 mcg tablet fluoxetine 20 mg capsule 3 cap PO QAM 11/26/20 11/26/20 gabapentin 100 mg capsule 1 cap PO TID PRN anxiety 11/26/20 11/26/20 gabapentin 400 mg capsule 1 cap PO BEDTIME 11/26/20 11/26/20 loratadine 10 mg tablet 1 tab PO DAILY 11/26/20 11/26/20 mirtazapine 30 mg tablet 1 tab PO BEDTIME 11/26/20 11/26/20 polyvinyl alcohol 1.4 % eye drops 1 drp ophthalmic (eye) TID 11/26/20 11/26/20 (Artificial Tears (polyvinyl alcohol)) quetiapine 25 mg tablet 1 tab PO BID PRN anxiety 05/27/21 05/27/21 topiramate 25 mg tablet 1 tab PO BID 11/26/20 11/26/20 zolpidem 10 mg tablet 1 tab PO BEDTIME PRN insomnia 11/26/20 11/26/20 Previous Rx's ?Medication ?Instructions ?Recorded tramadol 50 mg tablet 50 mg PO Q8H PRN pain #3 tabs 11/26/20 sennosides 8.6 mg tablet (senna) 8.6 mg PO BEDTIME #14 tabs 07/21/21 docusate sodium 100 mg capsule 100 mg PO BID PRN Constipation #14 11/23/21 (Colace) caps dicyclomine 10 mg capsule 10 mg PO BID #14 caps 08/14/24 oxycodone 5 mg tablet 5 mg PO Q8H PRN severe pain (scale 10/17/24 score 7-10) #9 tabs tamsulosin 0.4 mg capsule (Flomax) 0.4 mg PO BEDTIME #14 caps 10/17/24 acetaminophen 500 mg capsule 1,000 mg (2 x 500 mg) PO Q8H PRN 11/19/24 fever or pain #14 caps ondansetron 4 mg disintegrating 4 mg PO Q6H PRN nausea and 11/19/24 tablet vomiting #10 tabs phenazopyridine 200 mg tablet 200 mg PO TID PRN Dysuria 6 doses 11/19/24 #6 tabs acetaminophen 325 mg tablet 650 mg (2 x 325 mg) PO Q6H PRN 12/20/24 fever or pain #20 tabs cyclobenzaprine 10 mg tablet 10 mg PO TID PRN muscle spasm #20 12/20/24 tabs Allergies Allergy/AdvReac Type Severity Reaction Status Date / Time aspirin (ASA) Allergy Intermediate RASH, Verified 12/28/24 13:16 nausea and vomiting ibuprofen (IBUPROFEN) Allergy Intermediate RASH Verified 12/28/24 13:16 nicotine Allergy Intermediate RASH FROM Verified 12/28/24 13:16 NICOTINE PATCH, nausea and vomiting ketorolac (From TORADOL) Allergy Mild RAPID HR Verified 12/28/24 13:16 AND HIVES haloperidol (From Haldol) Allergy Anaphylaxis Verified 12/28/24 13:16 metoclopramide (From Reglan) Allergy Unknown Verified 12/28/24 13:16 Review of Systems Review of Systems all other systems are reviewed and are negative Constitutional: Reports as per HPI and Reports no additional constitutional complaints Eyes: Reports as per HPI and Reports no additional eye complaints Reports system reviewed and no additional complaints, except as documented Cardiovascular: Reports as per HPI and Reports no additional cardiovascular complaints Respiratory: Reports as per HPI and Reports no additional respiratory complaints Gastrointestinal: Reports as per HPI and Reports no additional gastrointestinal complaints Genitourinary: Reports no additional female genitourinary complaints Musculoskeletal: Reports no additional musculoskeletal complaints Skin/Breast: Reports system reviewed and no additional complaints, except as docu Psychiatric: Reports no additional psychiatric complaints Endocrine: Reports no additional endocrine complaints Hematologic/Lymphatic: Reports no additional hematologic/lymphatic complaints Allergic/Immunologic: Reports no additional allergic/immunologic complaints Reports system reviewed and no additional complaints, except as documented and Reports Abnormal speech present [facility] Past Medical History Medical History Drug-seeking behavior delivery delivered HTN (hypertension) Anemia Hypercholesteremia DVT (deep venous thrombosis) Kidney stones Surgical History Total knee replacement status Social History Social History Unable to assess alcohol history related to: Unknown Alcohol intake: never Patient Tobacco Use Status: Current everyday Tobacco user Smoked in Last 30 Days: Yes Use of substances other than those prescribed or required for medical reasons: No Substance Use Type: Prescription Drugs Advance Directives: No Advance Directives Information Provided: Yes Do you have a plan to hurt others: No Plan Patient : No Physical Exam ED Vital Signs: Vital Signs - 24 hr 12/28/24 13:08 12/28/24 15:51 Temperature 98.6 F 98.2 F Pulse Rate 109 H 78 Respiratory Rate 24 H 19 Blood Pressure 157/98 H 139/75 Pulse Oximetry 100 97 Oxygen Delivery Method Room Air Room Air BMI result Body Mass Index 26.1 Vital signs have been reviewed and appear to be correct. Blood pressure elevated. Heart rate normal. Respiratory rate normal. Temperature normal. Oxygen saturation normal. Appearance: Alert. Oriented X3. No acute distress. Head: Normal external exam. Normocephalic. Atraumatic. No Kong signs noted. No raccoon eyes noted Eyes: PERRLA. EOMI. Conjunctiva and sclera normal. Eyelids normal. ENT: TM's Normal. Pharynx normal. Uvula midline. Moist mucous membranes. No trismus noted. No drooling noted. No muffled voice noted. Neck: Normal inspection. Neck supple. FROM. No adenopathy. Thyroid Normal. No meningeal signs. No neck mass noted. CVS: Normal heart rate and rhythm. Heart sound normal. No murmurs noted. Pulses normal throughout. Respiratory: No respiratory distress. Painless inspiration. Breath sounds normal. No wheezes/rales/rhonchi noted. Chest nontender. No accessory muscle usage noted or decreased air movement noted. Abdomen: Soft and nontender. Bowel sounds normal in all 4 quadrants. No distention noted. No organomegaly noted. No visible injury noted. Back: No CVA tenderness. Full range of motion noted. Skin: Skin warm and dry. Normal skin color. Normal skin turgor. No rashes/lesions/lacerations noted. Extremities: No lower extremity edema. Extremities exhibit normal range of motion. Extremities nontender. Neuro: Oriented X 3. Cranial nerve exam: II-XII are grossly intact No motor deficit. No sensory deficit. Reflexes normal. Course Reevaluation(s) Reevaluation #1: Patient feels much better after was given IV Tylenol, labs is at baseline, no indication for UTI or pyelonephritis. Patient feels better asking to go home and she will follow-up with her urologist in [place]. Time: 16:09 Medical Decision Making Differential Diagnosis Differential Diagnoses: The differential diagnosis associated with the presentation includes ( UTI, hematuria, electrolyte derangement, severe anemia, pyelonephritis.) Admission/Observation Consideration of admission/observation: Escalation of care including admission/observation considered Lab Data [facility] Lab Attestation statement: I reviewed the patient's lab results. 12/28/24 13:38 12/28/24 13:38 Labs: Lab Results 12/28/24 12/28/24 Range/Units 13:38 14:41 WBC 4.7 L (4.8-10.8) X10*3/uL RBC 4.36 (4.20-5.50) X10*6/uL Hgb 11.7 L (12.0-16.0) g/dl Hct 35.7 L (37.0-47.0) % MCV 81.9 (80.0-98.0) fL MCH 26.8 L (27.0-33.0) pg MCHC 32.8 (31.0-35.0) g/dl RDW 14.2 (11.0-16.0) % Plt Count 304 (160-400) X10*3/uL MPV 9.1 L (9.4-12.3) fL Immature Gran % (Auto) 0.2 (0.0-0.4) % Neut % (Auto) 49.5 (45-73) % Lymph % (Auto) 42.4 H (20-40) % [place] % (Auto) 6.2 (2-11) % Eos % (Auto) 1.5 (0-4) % Baso % (Auto) 0.2 (0-2) % Lymph # (Auto) 2.0 (1.2-4.9) X10*3/uL [place] # (Auto) 0.3 (0.1-1.2) X10*3/uL Eos # (Auto) 0.1 (0.0-0.4) X10*3/uL Baso # (Auto) 0.0 (0.0-0.2) X10*3/uL Abs Immat Gran (auto) 0.01 (0.00-0.03) X10*3/uL Absolute Neuts (auto) 2.3 (2.0-8.3) x10*3/uL Absolute Nucleated RBC 0.000 (0.0-0.012) X10*3/uL Nucleated RBC % (auto) 0.0 (0.0-0.2) /100WBC Sodium 140 (135-145) mmol/L Potassium 3.6 (3.3-5.1) mmol/L Chloride 107 (96-108) mmol/L Carbon Dioxide 23 (22-29) mmol/L Anion Gap 14 (12-20) BUN 18 H (9-16) mg/dL Creatinine 0.61 (0.5-1.4) mg/dL Estim Creat Clear Calc 83.1 Estimated GFR > 60 Fasting Glucose 143 H (60-99) mg/dL Calcium 8.7 (8.4-10.2) mg/dL Total Bilirubin 0.3 (0.0-1.0) mg/dL AST 43 H (5-31) U/L ALT 60 H (0-31) U/L Alkaline Phosphatase 103 (39-117) U/L Total Protein 7.2 (6.5-8.0) g/dL Albumin 4.5 (3.5-5.0) g/dL Lipase 17 (8-78) U/L Urine Color Other A Urine Appearance Hazy Urine pH 5.5 (5.0-9.0) Ur Specific [place] 1.020 (1.005-1.025) Urine Protein 30 (1+) H (Neg-Trace) mg/dL Urine Glucose (UA) Negative (Negative) mg/dL Urine Ketones Negative (Negative) mg/dL Urine Blood Large (3+) H (Negative) Urine Nitrite Negative (Negative) Ur Leukocyte Esterase Trace H (Negative) Urine RBC >20 H (0-2) /HPF Urine WBC 0-5 (0-5) /HPF Ur Squamous Epith Cells 3-5 (0-2) /HPF Urine Bacteria None Seen (None Seen) Hyaline Casts 0-2 (0-2) /LPF Medications Administered Discontinued Medications Generic Name Dose Route Start Last Admin Trade Name Freq PRN Reason Stop Dose Admin Sodium Chloride 1,000 mls @ 999 mls/hr 12/28/24 13:38 12/28/24 15:09 Ns IV 12/28/24 14:38 Infused .Q1H1M ONE Infusion Acetaminophen 1,000 mg in 100 mls @ 400 mls/hr 12/28/24 15:29 12/28/24 15:58 Ofirmev IV 12/28/24 15:43 Infused ONCE ONE Infusion Morphine Sulfate 1 mg 12/28/24 13:42 12/28/24 13:46 Morphine Sulfate 2 Mg/Ml Cartridge IVPUSH 12/28/24 13:43 1 mg ONCE ONE Administration Protocol Discharge Plan Discharge Clinical Impression: Chronic flank pain Patient Disposition: Home, Self-Care Instructions: Chronic Pain (ED) Additional Instructions: follow-up with your urologist as discussed. Prescriptions: No Action quetiapine 25 mg tablet 1 tab PO BID PRN (Reason: anxiety) atorvastatin 10 mg tablet 1 tab PO DAILY polyvinyl alcohol [Artificial Tears (polyvin alc)] 1.4 % drops 1 drp ophthalmic (eye) TID gabapentin 400 mg capsule 1 cap PO BEDTIME topiramate 25 mg tablet 1 tab PO BID clonidine HCl 0.2 mg tablet 1 tab PO BID PRN (Reason: panic attack) cyanocobalamin (vitamin B-12) 500 mcg tablet 1 tab PO DAILY ascorbic acid (vitamin C) 250 mg tablet 1 tab PO BID amlodipine 10 mg tablet 1 tab PO DAILY mirtazapine 30 mg tablet 1 tab PO BEDTIME gabapentin 100 mg capsule 1 cap PO TID PRN (Reason: anxiety) zolpidem 10 mg tablet 1 tab PO BEDTIME PRN (Reason: insomnia) albuterol sulfate [ProAir HFA] 90 mcg/actuation HFA aerosol inhaler 2 puff PO Q4-6H PRN (Reason: dyspnea) fluoxetine 20 mg capsule 3 cap PO QAM loratadine 10 mg tablet 1 tab PO DAILY tramadol 50 mg tablet 50 mg PO Q8H PRN (Reason: pain) Qty: 3 0RF sennosides [senna] 8.6 mg tablet 8.6 mg PO BEDTIME Qty: 14 0RF docusate sodium [Colace] 100 mg capsule 100 mg PO BID PRN (Reason: Constipation) Qty: 14 0RF dicyclomine 10 mg capsule 10 mg PO BID Qty: 14 0RF tamsulosin [Flomax] 0.4 mg capsule 0.4 mg PO BEDTIME Qty: 14 0RF oxycodone 5 mg tablet 5 mg PO Q8H PRN (Reason: severe pain (scale score 7-10)) Qty: 9 0RF Rx Instructions: Partial Fill upon patient request. acetaminophen 500 mg capsule 1,000 mg PO Q8H PRN (Reason: fever or pain) Qty: 14 0RF phenazopyridine 200 mg tablet 200 mg PO TID PRN (Reason: Dysuria) Qty: 6 0RF ondansetron 4 mg tablet,disintegrating 4 mg PO Q6H PRN (Reason: nausea and vomiting) Qty: 10 0RF cyclobenzaprine 10 mg tablet 10 mg PO TID PRN (Reason: muscle spasm) Qty: 20 0RF acetaminophen 325 mg tablet 650 mg PO Q6H PRN (Reason: fever or pain) Qty: 20 0RF Referrals: Amber Quiroz MD [Primary Care Provider, Internal Medicine] Print Language: Tajik
[2024-12-28 13:44] LABS: Basophils Percent Auto 0.2 % (0-2); Eosinophils Absolute Auto 0.1 X10*3/uL (0.0-0.4); Eosinophils Percent Auto 1.5 % (0-4); Hematocrit 35.7 % (37.0-47.0); Hemoglobin 11.7 g/dl (12.0-16.0); Imm Gran Abs Auto 0.01 X10*3/uL (0.00-0.03); Imm Gran Pct Auto 0.2 % (0.0-0.4); Lymphocytes Percent Auto 42.4 % (20-40); Mean Corpuscular HGB Conc 32.8 g/dl (31.0-35.0); Mean Corpuscular Hemoglobin 26.8 pg (27.0-33.0); Mean Corpuscular Volume 81.9 fL (80.0-98.0); Mean Platelet Volume 9.1 fL (9.4-12.3); Monocytes Absolute Auto 0.3 X10*3/uL (0.1-1.2); Monocytes Percent Auto 6.2 % (2-11); Neutrophils Absolute Auto 2.3 x10*3/uL (2.0-8.3); Neutrophils Percent Auto 49.5 % (45-73); Platelet Count 304 X10*3/uL (160-400); Red Blood Count 4.36 X10*6/uL (4.20-5.50); Red Cell Distribution Width 14.2 % (11.0-16.0); White Blood Count 4.7 X10*3/uL (4.8-10.8)
[2024-12-28] MEDS: Morphine Sulfate 2 MG/ML CARTRIDGE 1 MG IVPUSH (13:46)
[2024-12-28] MEDS: 0.9 % Sodium Chloride 1,000 ML 999 ML IV (13:46)
[2024-12-28 14:04] LABS: Alanine Aminotransferase 60 U/L (0-31); Albumin Level 4.5 g/dL (3.5-5.0); Alkaline Phosphatase 103 U/L (39-117); Anion Gap 14 (12-20); Bilirubin Total 0.3 mg/dL (0.0-1.0); Blood Urea Nitrogen 18 mg/dL (9-16); Calcium 8.7 mg/dL (8.4-10.2); Carbon Dioxide 23 mmol/L (22-29); Chloride 107 mmol/L (96-108); Creatinine Clr Calc Pharmacy 83.1; Estimated Glomerular Filt Rate > 60; Glucose Fasting 143 mg/dL (60-99); Lipase 17 U/L (8-78); Potassium 3.6 mmol/L (3.3-5.1); Sodium 140 mmol/L (135-145); Total Protein 7.2 g/dL (6.5-8.0)
[2024-12-28 14:25] LABS: Aspartate Amino Transferase 43 U/L (5-31)
[2024-12-28 14:50] LABS: Bacteria Urine None Seen (None Seen); Hyaline Casts Urine 0-2 /LPF (0-2); RBC Urine >20 /HPF (0-2); WBC Urine 0-5 /HPF (0-5)
[2024-12-28 14:51] LABS: Appearance Urine Hazy; Color Urine Other; Glucose Urine UA Negative (Negative); PH 5.5 (5.0-9.0); Urine Blood Large (3+) (Negative); Urine Ketones Negative (Negative); Urine Protein 30 (1+) mg/dL (Neg-Trace)
[2024-12-28 14:52] LABS: Leukocyte Esterase Urine Trace (Negative); Nitrite Urine Negative (Negative); UMIC TRIGGER UACC YES
[2024-12-28] MEDS: Acetaminophen 1,000 MG/100 ML PIGGYBACK 400 MG IV (15:36)
[2024-12-28 15:51] VITALS: BP 139/75; PULSE 78; RESP 19; TEMP 36.8; O2SAT 97
--- NOTE | 2024-12-28 15:51 | PC.NURSE ---
IV Tylenol infusing per orders; aware of 6/10 LLQ pain per pt; pt eating/drinking in room at this time; vss
[2024-12-28 16:19] VITALS: BP 136/67; PULSE 82; RESP 19; TEMP 36.8; O2SAT 99
== END 2024-12-28 16:25 | disposition home or self-care (01) ==
PROVIDERS: Emergency Provider Emergency Medicine; PCP Family Medicine
DX: R10.9 Unspecified abdominal pain (principal); R31.9 Hematuria, unspecified; R30.0 Dysuria; R11.0 Nausea; F17.210 Nicotine dependence, cigarettes, uncomplicated; Z79.899 Other long term (current) drug therapy; Z87.442 Personal history of urinary calculi
CPT/HCPCS: 36415; 80053; 81001; 83690; 85025; 96361; 96365; 96375; 99284; J0131; J2270

== ENCOUNTER 2025-02-02 15:20 | Emergency (ER) | payer MEDICAID, SELFPAY ==
[2025-02-02 15:27] VITALS: BP 148/83; BP 163/76; PULSE 102; PULSE 98; RESP 22; TEMP 36.6; O2SAT 95; O2SAT 98; BMI 26.4
--- OUTSIDE RECORDS SUMMARY | 2025-02-02 15:40 | XMS_ITS | Encounter Summary ---
Author Organization [employer] Address [address] [place] [address] Care Team Providers Care Barker Operator Name Role Phone Amber Quiroz MD Primary Care Provider Reason for Visit * Reason Comments Med Refill Encounter Details Date Type Department Care Team (Late st Contact Info) Description 11/18/2024 Refill [facility] [address] [place], [place] [phone] Amber Quiroz MD [address], [place] [phone] Nephrolithiasis Social History Tobacco Use Types Packs/Day [...] Telephone Encounter - Amber Quiroz MD - 11/27/2024 6:19 PM EDT Patient received morphine on 11/26/24. documented in this encounter Plan of Treatment Upcoming Encounters Date Type Department Care Team (Late st Contact Info) Description 03/04/2025 1:15 PM EDT Office Visit [facility] [address] [place] [address] Amber Quiroz MD [address] [place] [address] documented as of this encounter Visit Diagnoses Diagnosis Nephrolithiasis Calculus of kidney documented in this encounter Care Teams Barker Operator Relationship Specialty Start Date End Date Amber Quiroz MD [address] [place] [address] PCP - General Family Medicine 07/03/18 documented as of this encounter
--- OUTSIDE RECORDS SUMMARY | 2025-02-02 15:40 | XMS_ITS | Encounter Summary ---
Author Organization [facility] Address [address] [place] [address] Care Team Providers Care Identification Officer Name Role Phone Physician, No Pcp Primary Care Provider Unavaila ble Encounter Details Date Type Department Care Team (Late st Contact Info) Description 09/25/2024 Lab Requisition [facility] - Main Lab [address] [facility] [place] [address] Zachery Chi PA [address] [place] [address] Calculus of ureter Social History [...] ult [facility] [address] [place] [address], documented in this encounter Visit Diagnoses Diagnosis Calculus of ureter documented in this encounter Care Teams Identification Officer Relationship Specialty Start Date End Date Physician, No Pcp PCP - General 08/21/24 documented as of this encounter
--- NOTE | 2025-02-02 15:46 | ED.GENADULT ---
HPI - General Adult General Chief complaint: Abdominal Pain Stated complaint: left side leg/abd pain, nausea Time Seen by Provider: 02/02/25 15:46 Source: patient, EMS, RN notes reviewed and old records reviewed Mode of arrival: EMS Limitations: no limitations History of Present Illness ED Provider: Lakesha HPI narrative: Patient is a 59-year-old female with documented history of drug-seeking behavior, multiple prior ED visits for flank pain, kidney stones, DVT, anemia, HTN presenting with complaint of severe left flank pain, nausea, and hematuria for 3 days. Reports fever at home of 100. States that she feels as though she is retaining urine. Received fentanyl from EMS prior to arrival which she states did not help at all and requested that RN here change her IV because she felt the IV placed by EMS was not working since she did not feel any pain relief after fentanyl. MD complaint: left flank pain Onset (ago): day(s) Related Data Home Medications ?Medication ?Instructions ?Recorded ?Confirmed albuterol sulfate 90 mcg/actuation 2 puff PO Q4-6H PRN dyspnea 11/26/20 11/26/20 aerosol inhaler (ProAir HFA) amlodipine 10 mg tablet 1 tab PO DAILY 11/26/20 11/26/20 ascorbic acid (vitamin C) 250 mg 1 tab PO BID 11/26/20 11/26/20 tablet atorvastatin 10 mg tablet 1 tab PO DAILY 11/26/20 11/26/20 clonidine HCl 0.2 mg tablet 1 tab PO BID PRN panic attack 11/26/20 11/26/20 cyanocobalamin (vitamin B-12) 500 1 tab PO DAILY 11/26/20 11/26/20 mcg tablet fluoxetine 20 mg capsule 3 cap PO QAM 11/26/20 11/26/20 gabapentin 100 mg capsule 1 cap PO TID PRN anxiety 11/26/20 11/26/20 gabapentin 400 mg capsule 1 cap PO BEDTIME 11/26/20 11/26/20 loratadine 10 mg tablet 1 tab PO DAILY 11/26/20 11/26/20 mirtazapine 30 mg tablet 1 tab PO BEDTIME 11/26/20 11/26/20 polyvinyl alcohol 1.4 % eye drops 1 drp ophthalmic (eye) TID 11/26/20 11/26/20 (Artificial Tears (polyvinyl alcohol)) quetiapine 25 mg tablet 1 tab PO BID PRN anxiety 11/26/20 11/26/20 topiramate 25 mg tablet 1 tab PO BID 11/26/20 11/26/20 zolpidem 10 mg tablet 1 tab PO BEDTIME PRN insomnia 11/26/20 11/26/20 Previous Rx's ?Medication ?Instructions ?Recorded tramadol 50 mg tablet 50 mg PO Q8H PRN pain #3 tabs 11/26/20 sennosides 8.6 mg tablet (senna) 8.6 mg PO BEDTIME #14 tabs 07/21/21 docusate sodium 100 mg capsule 100 mg PO BID PRN Constipation #14 11/23/21 (Colace) caps dicyclomine 10 mg capsule 10 mg PO BID #14 caps 08/14/24 oxycodone 5 mg tablet 5 mg PO Q8H PRN severe pain (scale 10/17/24 score 7-10) #9 tabs tamsulosin 0.4 mg capsule (Flomax) 0.4 mg PO BEDTIME #14 caps 10/17/24 acetaminophen 500 mg capsule 1,000 mg (2 x 500 mg) PO Q8H PRN 11/19/24 fever or pain #14 caps ondansetron 4 mg disintegrating 4 mg PO Q6H PRN nausea and 11/19/24 tablet vomiting #10 tabs phenazopyridine 200 mg tablet 200 mg PO TID PRN Dysuria 6 doses 11/19/24 #6 tabs acetaminophen 325 mg tablet 650 mg (2 x 325 mg) PO Q6H PRN 12/20/24 fever or pain #20 tabs cyclobenzaprine 10 mg tablet 10 mg PO TID PRN muscle spasm #20 12/20/24 tabs Allergies Allergy/AdvReac Type Severity Reaction Status Date / Time aspirin (ASA) Allergy Intermediate RASH, Verified 02/02/25 15:30 nausea and vomiting ibuprofen (IBUPROFEN) Allergy Intermediate RASH Verified 02/02/25 15:30 nicotine Allergy Intermediate RASH FROM Verified 02/02/25 15:30 NICOTINE PATCH, nausea and vomiting ketorolac (From TORADOL) Allergy Mild RAPID HR Verified 02/02/25 15:30 AND HIVES haloperidol (From Haldol) Allergy Anaphylaxis Verified 02/02/25 15:30 metoclopramide (From Reglan) Allergy Unknown Verified 02/02/25 15:30 Review of Systems Review of Systems: As per HPI Yes all other systems are reviewed and are negative Constitutional: Constitutional: Reports as per HPI PENDING SALE TO [facility] Past Medical History Medical History Drug-seeking behavior delivery delivered HTN (hypertension) Anemia Hypercholesteremia DVT (deep venous thrombosis) Kidney stones Surgical History Total knee replacement status Social History Social History Unable to assess alcohol history related to: Unknown Alcohol intake: never Patient Tobacco Use Status: Current everyday Tobacco user Substance Use Type: Prescription Drugs Advance Directives: No Advance Directives Information Provided: Yes Physical Exam ED Vital Signs: Vital Signs - 24 hr 02/02/25 15:27 Temperature 97.9 F Pulse Rate 98 Respiratory Rate 22 H Blood Pressure 148/83 H Pulse Oximetry 95 Oxygen Delivery Method Room Air BMI result Body Mass Index 26.4 Vital signs have been reviewed and appear to be correct. Blood pressure normal. Heart rate normal. Respiratory rate normal. Temperature normal. Oxygen saturation normal. Const General: healthy appearing and no acute distress Nutritional Appearance: average body habitus Orientation/consciousness: oriented to person, oriented to place, oriented to time and patient oriented x3 Limitations: no limitations HENMT Head: Yes normocephalic and Yes atraumatic Ears: external ears normal General nose exam: Normal external nose present Face and sinus: Yes face symmetric Mouth: oropharynx normal and moist mucous membranes Throat: Yes uvula midline Eyes Pupils: Equal, round and reactive pupils present Neck Neck: Yes normal visual inspection and Yes supple Resp Effort & Inspection: normal respiratory effort and able to speak in complete sentences Auscultation: clear to auscultation bilaterally Cardio Rate: regular rate Rhythm: regular rhythm Heart sounds: S1 normal heart sound present and S2 normal heart sound present GI Palpation (GI): Soft to palpation and nontender Auscultation: normoactive bowel sounds General: Yes no CVA tenderness Back/Spine/Pelvis Back: no CVA tenderness Skin General skin exam: elasticity normal and turgor normal Neuro General: oriented to person, oriented to place, oriented to time, patient oriented x3, moves all extremities, no focal motor deficits and CN's II-XI intact bilaterally Cranial nerves: Yes Equal, round and reactive pupils present Cognition (Neuro): normal cognition Extrem General: Yes full ROM, Yes no pedal edema and Yes no calf tenderness Psych Mental Status: mental status grossly normal Affect: normal affect Thought process: Normal thought process present Medications Administered Generic Name Dose Route Start Last Admin Trade Name Freq PRN Reason Stop Dose Admin Sodium Chloride 1,000 mls @ 999 mls/hr 02/02/25 16:00 02/02/25 16:11 Ns IV 02/02/25 17:00 999 mls/hr .Q1H1M ADELA Administration Discontinued Medications Generic Name Dose Route Start Last Admin Trade Name Freq PRN Reason Stop Dose Admin Morphine Sulfate 4 mg 02/02/25 15:54 02/02/25 16:13 Morphine Sulfate 4 Mg/Ml Cartridge IVPUSH 02/02/25 15:55 4 mg ONCE ONE Administration Protocol Ondansetron HCl 4 mg 02/02/25 15:54 02/02/25 16:13 Ondansetron Hcl 4 Mg/2 Ml Vial IVPUSH 02/02/25 15:55 4 mg ONCE ONE Administration Medical Decision Making Medical Decision Making MDM Narrative: Patient is a 59-year-old female with documented history of drug-seeking behavior, multiple prior ED visits for flank pain, kidney stones, DVT, anemia, HTN presenting with complaint of severe left flank pain, nausea, and hematuria for 3 days. On exam patient is awake, A+Ox3, VS WNL, afebrile, normal neurological exam without focal deficits, physical exam findings as above. Given reported symptoms and physical exam findings, initial differential includes but is not limited to UTI, pyelonephritis, renal colic, obstructing stone, hydronephrosis. Labs notable for no leukocytosis, chronic anemia, no evidence of ALL. Patient requesting additional pain medication after morphine. IV acetaminophen ordered as upon review of EMR, this was noted to provide good pain relief for patient at previous visit. When RN entered room to administer the IV acetaminophen, patient declined this. I then went back to speak with patient and advised her that this worked well for her pain at the last visit. She stated that she needed stronger pain medicine. Discussed with patient that she has already been medicated with fentanyl and morphine, and no additional opiate pain medication will be ordered until CT imaging is resulted and her medical condition requires that level of pain medication. Patient then stated that she was leaving and removed her IV, walked out of the emergency department. Patient left without signing AMA form. They have normal mental status and adequate capacity to make medical decisions. The patient refuses full ED evaluation and wants to be discharged. The risks have been explained to the patient, including infection, sepsis, worsening illness, chronic pain, permanent disability and . The benefits of ED evaluation have also been explained, including the availability and proximity of nurses, physicians, monitoring, diagnostic testing, treatment and pain control. The patient was able to understand and state the risks and benefits of ED evaluation. This was witnessed by nurse Saldivar and me. They had the opportunity to ask questions about their medical condition. The patient was treated to the extent that they would allow and knows that they may return for care at any time. Differential Diagnosis Differential Diagnoses: The differential diagnosis associated with the presentation includes As per [facility] Admission/Observation Consideration of admission/observation: Escalation of care including admission/observation considered Patient would have been admitted to the hospital had their clinical presentation warranted hospital admission. Lab Data [facility] Lab Attestation statement: I reviewed the patient's lab results. As per [facility] 02/02/25 16:01 02/02/25 16:01 Labs: Lab Results 02/02/25 Range/Units 16:01 WBC 4.0 L (4.8-10.8) X10*3/uL RBC 3.89 L (4.20-5.50) X10*6/uL Hgb 10.4 L (12.0-16.0) g/dl Hct 31.3 L (37.0-47.0) % MCV 80.5 (80.0-98.0) fL MCH 26.7 L (27.0-33.0) pg MCHC 33.2 (31.0-35.0) g/dl RDW 14.6 (11.0-16.0) % Plt Count 231 (160-400) X10*3/uL MPV 9.5 (9.4-12.3) fL Immature Gran % (Auto) 0.0 (0.0-0.4) % Neut % (Auto) 41.8 L (45-73) % Lymph % (Auto) 41.8 H (20-40) % [place] % (Auto) 13.4 H (2-11) % Eos % (Auto) 2.5 (0-4) % Baso % (Auto) 0.5 (0-2) % Lymph # (Auto) 1.7 (1.2-4.9) X10*3/uL [place] # (Auto) 0.5 (0.1-1.2) X10*3/uL Eos # (Auto) 0.1 (0.0-0.4) X10*3/uL Baso # (Auto) 0.0 (0.0-0.2) X10*3/uL Abs Immat Gran (auto) 0.00 (0.00-0.03) X10*3/uL Absolute Neuts (auto) 1.7 L (2.0-8.3) x10*3/uL Absolute Nucleated RBC 0.000 (0.0-0.012) X10*3/uL Nucleated RBC % (auto) 0.0 (0.0-0.2) /100WBC Sodium 142 (135-145) mmol/L Potassium 3.5 (3.3-5.1) mmol/L Chloride 106 (96-108) mmol/L Carbon Dioxide 25 (22-29) mmol/L Anion Gap 15 (12-20) BUN 11 (9-16) mg/dL Creatinine 0.65 (0.5-1.4) mg/dL Estim Creat Clear Calc 78.5 Estimated GFR > 60 Random Glucose 113 (60-115) mg/dL Calcium 8.9 (8.4-10.2) mg/dL Total Bilirubin 0.7 (0.0-1.0) mg/dL AST 45 H (5-31) U/L ALT 34 H (0-31) U/L Alkaline Phosphatase 93 (39-117) U/L Total Protein 7.0 (6.5-8.0) g/dL Albumin 4.2 (3.5-5.0) g/dL External Record Review External record reviewed: Inpatient record, Office record and Outpatient record Discharge Plan Discharge Clinical Impression: Left flank pain Patient Disposition: Left W/O Completing Treatment Prescriptions: No Action quetiapine 25 mg tablet 1 tab PO BID PRN (Reason: anxiety) atorvastatin 10 mg tablet 1 tab PO DAILY polyvinyl alcohol [Artificial Tears (polyvin alc)] 1.4 % drops 1 drp ophthalmic (eye) TID gabapentin 400 mg capsule 1 cap PO BEDTIME topiramate 25 mg tablet 1 tab PO BID clonidine HCl 0.2 mg tablet 1 tab PO BID PRN (Reason: panic attack) cyanocobalamin (vitamin B-12) 500 mcg tablet 1 tab PO DAILY ascorbic acid (vitamin C) 250 mg tablet 1 tab PO BID amlodipine 10 mg tablet 1 tab PO DAILY mirtazapine 30 mg tablet 1 tab PO BEDTIME gabapentin 100 mg capsule 1 cap PO TID PRN (Reason: anxiety) zolpidem 10 mg tablet 1 tab PO BEDTIME PRN (Reason: insomnia) albuterol sulfate [ProAir HFA] 90 mcg/actuation HFA aerosol inhaler 2 puff PO Q4-6H PRN (Reason: dyspnea) fluoxetine 20 mg capsule 3 cap PO QAM loratadine 10 mg tablet 1 tab PO DAILY tramadol 50 mg tablet 50 mg PO Q8H PRN (Reason: pain) Qty: 3 0RF sennosides [senna] 8.6 mg tablet 8.6 mg PO BEDTIME Qty: 14 0RF docusate sodium [Colace] 100 mg capsule 100 mg PO BID PRN (Reason: Constipation) Qty: 14 0RF dicyclomine 10 mg capsule 10 mg PO BID Qty: 14 0RF tamsulosin [Flomax] 0.4 mg capsule 0.4 mg PO BEDTIME Qty: 14 0RF oxycodone 5 mg tablet 5 mg PO Q8H PRN (Reason: severe pain (scale score 7-10)) Qty: 9 0RF Rx Instructions: Partial Fill upon patient request. acetaminophen 500 mg capsule 1,000 mg PO Q8H PRN (Reason: fever or pain) Qty: 14 0RF phenazopyridine 200 mg tablet 200 mg PO TID PRN (Reason: Dysuria) Qty: 6 0RF ondansetron 4 mg tablet,disintegrating 4 mg PO Q6H PRN (Reason: nausea and vomiting) Qty: 10 0RF cyclobenzaprine 10 mg tablet 10 mg PO TID PRN (Reason: muscle spasm) Qty: 20 0RF acetaminophen 325 mg tablet 650 mg PO Q6H PRN (Reason: fever or pain) Qty: 20 0RF
[2025-02-02 16:06] LABS: MANUAL DIFF FLAG NO
[2025-02-02 16:08] LABS: Hematocrit 31.3 % (37.0-47.0); Hemoglobin 10.4 g/dl (12.0-16.0); Imm Gran Abs Auto 0.00 X10*3/uL (0.00-0.03); Imm Gran Pct Auto 0.0 % (0.0-0.4); Lymphocytes Absolute Auto 1.7 X10*3/uL (1.2-4.9); Mean Corpuscular HGB Conc 33.2 g/dl (31.0-35.0); Mean Corpuscular Hemoglobin 26.7 pg (27.0-33.0); Mean Corpuscular Volume 80.5 fL (80.0-98.0); NRBC Abs Auto 0.000 X10*3/uL (0.0-0.012); NRBC Pct Auto 0.0 /100WBC (0.0-0.2); Platelet Count 231 X10*3/uL (160-400); Red Blood Count 3.89 X10*6/uL (4.20-5.50); White Blood Count 4.0 X10*3/uL (4.8-10.8)
[2025-02-02 16:23] LABS: Alanine Aminotransferase 34 U/L (0-31); Albumin Level 4.2 g/dL (3.5-5.0); Alkaline Phosphatase 93 U/L (39-117); Anion Gap 15 (12-20); Aspartate Amino Transferase 45 U/L (5-31); Blood Urea Nitrogen 11 mg/dL (9-16); Calcium 8.9 mg/dL (8.4-10.2); Carbon Dioxide 25 mmol/L (22-29); Chloride 106 mmol/L (96-108); Creatinine Clr Calc Pharmacy 78.5; Estimated Glomerular Filt Rate > 60; Potassium 3.5 mmol/L (3.3-5.1); Sodium 142 mmol/L (135-145); Total Protein 7.0 g/dL (6.5-8.0)
--- NOTE | 2025-02-02 17:01 | PC.NURSE ---
Pt walked out without completing treatment. She removed her own IV before leaving
== END 2025-02-02 17:04 | disposition left against medical advice (07) ==
PROVIDERS: Registered Nurse Emergency; Emergency Provider Emergency Medicine Emergency Medical Services; PCP Family Medicine
DX: R10.9 Unspecified abdominal pain (principal); Z76.5 Malingerer [conscious simulation]; I10 Essential (primary) hypertension
CPT/HCPCS: 36415; 80053; 85025; 96374; 96375; 99284; J2270; J2405

== ENCOUNTER 2025-03-08 10:25 | Emergency (ER) | payer MEDICAID, SELFPAY ==
--- NOTE | ~2025-03-08 | CT_ITS ---
CLINICAL HISTORY: abbd pain, flank pain CT abdomen and pelvis without contrast Comparison: CT/[place] - CT ABDOMEN PELVIS WO IV CON - 11/11/24 11:28 EDT Findings: No consolidation or effusion. Borderline dilatation of the left renal collecting system. Mild left-sided uroepithelial thickening. Multiple tiny nonobstructive calculi within the bilateral kidneys. 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 No ureteral calculus. The liver, spleen, pancreas and adrenal glands are unremarkable. There are no calcified gallstones. No bowel obstruction, pneumoperitoneum, or pneumatosis. Tiny umbilical hernia containing fat. There is moderate distention of the urinary bladder. Unremarkable uterus and bilateral adnexa. Normal appendix. The bones are intact. IMPRESSION: 1. Borderline dilatation of the left renal collecting system with mild left-sided uroepithelial thickening. Consider pyelonephritis or recently passed stone. 2. There are tiny nonobstructive calculi within the bilateral kidneys. This document has been electronically signed by: Xuan Paredes MD on 03/08/2025 13:06:41
[2025-03-08 10:28] VITALS: BP 140/70; PULSE 89
--- NOTE | 2025-03-08 10:35 | ED.ABDPAIN ---
HPI - Abdominal Pain General Chief Complaint: Abdominal Pain Stated Complaint: ABD PAIN,HX KIDNEY STONES PER EMS Time Seen by Provider: 03/08/25 10:27 Source: patient and EMS Mode of arrival: EMS Limitations: no limitations History of Present Illness ED Provider: PUJA Hamilton HPI narrative: 59 year old female presents with bilateral flank pain and diffuse abdominal pain with nausea, vomiting and hematuria ongoing x1 day. Patient remote she has a history of kidney stones last had a kidney stone years ago. She reports she is in severe 10/10 stabbing pain in her flanks. She appears very uncomfortable. Has not taken anything for pain. Denies fevers, chills, chest pain, shortness of breath, blood in vomit, blood in stool, changes in bowel habits. Related Data Home Medications ?Medication ?Instructions ?Recorded ?Confirmed albuterol sulfate 90 mcg/actuation 2 puff PO Q4-6H PRN dyspnea 11/26/20 11/26/20 aerosol inhaler (ProAir HFA) amlodipine 10 mg tablet 1 tab PO DAILY 11/26/20 11/26/20 ascorbic acid (vitamin C) 250 mg 1 tab PO BID 11/26/20 11/26/20 tablet atorvastatin 10 mg tablet 1 tab PO DAILY 11/26/20 11/26/20 clonidine HCl 0.2 mg tablet 1 tab PO BID PRN panic attack 11/26/20 11/26/20 cyanocobalamin (vitamin B-12) 500 1 tab PO DAILY 11/26/20 11/26/20 mcg tablet fluoxetine 20 mg capsule 3 cap PO QAM 11/26/20 11/26/20 gabapentin 100 mg capsule 1 cap PO TID PRN anxiety 11/26/20 11/26/20 gabapentin 400 mg capsule 1 cap PO BEDTIME 11/26/20 11/26/20 loratadine 10 mg tablet 1 tab PO DAILY 11/26/20 11/26/20 mirtazapine 30 mg tablet 1 tab PO BEDTIME 11/26/20 11/26/20 polyvinyl alcohol 1.4 % eye drops 1 drp ophthalmic (eye) TID 11/26/20 11/26/20 (Artificial Tears (polyvinyl alcohol)) quetiapine 25 mg tablet 1 tab PO BID PRN anxiety 11/26/20 11/26/20 topiramate 25 mg tablet 1 tab PO BID 11/26/20 11/26/20 zolpidem 10 mg tablet 1 tab PO BEDTIME PRN insomnia 11/26/20 11/26/20 Previous Rx's ?Medication ?Instructions ?Recorded tramadol 50 mg tablet 50 mg PO Q8H PRN pain #3 tabs 11/26/20 sennosides 8.6 mg tablet (senna) 8.6 mg PO BEDTIME #14 tabs 07/21/21 docusate sodium 100 mg capsule 100 mg PO BID PRN Constipation #14 11/23/21 (Colace) caps dicyclomine 10 mg capsule 10 mg PO BID #14 caps 08/14/24 oxycodone 5 mg tablet 5 mg PO Q8H PRN severe pain (scale 10/17/24 score 7-10) #9 tabs tamsulosin 0.4 mg capsule (Flomax) 0.4 mg PO BEDTIME #14 caps 10/17/24 acetaminophen 500 mg capsule 1,000 mg (2 x 500 mg) PO Q8H PRN 11/19/24 fever or pain #14 caps ondansetron 4 mg disintegrating 4 mg PO Q6H PRN nausea and 11/19/24 tablet vomiting #10 tabs phenazopyridine 200 mg tablet 200 mg PO TID PRN Dysuria 6 doses 11/19/24 #6 tabs acetaminophen 325 mg tablet 650 mg (2 x 325 mg) PO Q6H PRN 12/20/24 fever or pain #20 tabs cyclobenzaprine 10 mg tablet 10 mg PO TID PRN muscle spasm #20 12/20/24 tabs acetaminophen 325 mg tablet 650 mg (2 x 325 mg) PO Q6H PRN 03/08/25 (Tylenol) fever or pain #30 tabs cefuroxime axetil 250 mg tablet 250 mg PO BID 7 days #14 tabs 03/08/25 Allergies Allergy/AdvReac Type Severity Reaction Status Date / Time aspirin (ASA) Allergy Intermediate RASH, Verified 03/08/25 10:38 nausea and vomiting ibuprofen (IBUPROFEN) Allergy Intermediate RASH Verified 03/08/25 10:38 nicotine Allergy Intermediate RASH FROM Verified 03/08/25 10:38 NICOTINE PATCH, nausea and vomiting ketorolac (From TORADOL) Allergy Mild RAPID HR Verified 03/08/25 10:38 AND HIVES haloperidol (From Haldol) Allergy Anaphylaxis Verified 03/08/25 10:38 metoclopramide (From Reglan) Allergy Unknown Verified 03/08/25 10:38 Review of Systems Review of Systems Yes all other systems are reviewed and are negative [facility] Past Medical History Attestation statement: The following information was validated with the patient. Source: old records reviewed and nursing notes reviewed Medical History Drug-seeking behavior delivery delivered HTN (hypertension) Anemia Hypercholesteremia DVT (deep venous thrombosis) Kidney stones Surgical History Total knee replacement status Social History Social History Unable to assess alcohol history related to: Unknown Alcohol intake: never Patient Tobacco Use Status: Current everyday Tobacco user Substance Use Type: Prescription Drugs Advance Directives: No Advance Directives Information Provided: Yes Physical Exam ED Exam Exam: Appearance: Alert.? Oriented X3.? No acute distress.? Head: Normocephalic, atraumatic, no step-offs or deformities Eyes: Pupils equal, round and reactive to light.? ENT: Pharynx normal.? Neck: Normal inspection.? Neck supple.? CVS: Normal heart rate and rhythm.? Pulses normal.? Respiratory: No respiratory distress.? Breath sounds normal.? Abdomen: Soft and diffusely tender.? Skin: Skin warm and dry.? Normal skin color.? Normal skin turgor.? Extremities: No lower extremity edema.? No calf ttp. 5/5 strength to bilateral upper and lower extremities Back: No midline tenderness, no C-spine tenderness, full range of motion, bilateral CVA tenderness Neuro: Oriented X 3.? No motor deficit.? No sensory deficit. CN 2-12 intact Vital Signs: Vital Signs - 24 hr 03/08/25 10:37 03/08/25 11:37 03/08/25 12:02 Temperature 98.4 F 97.6 F Pulse Rate 97 70 Respiratory Rate 18 20 18 Blood Pressure 125/75 125/78 Pulse Oximetry 96 97 Oxygen Delivery Method Room Air Room Air BMI result Body Mass Index 29.0 vss Course Reevaluation(s) Reevaluation #1: Patient was given morphine, she is screaming in pain and states she needs something stronger. Time: 11:00 Reevaluation #2: Patient given Dilaudid and she still screaming in pain stating she needs something stronger. CBC with baseline leukopenia and normocytic anemia. Chemistry with no acute findings needing intervention. Urine pending. CT abdomen pelvis with borderline dilation of the left renal collecting system with mild left-sided eat uroepithelial thickening. Consider pyelonephritis or recently passed stone. Tiny nonobstructing calculi within bilateral kidneys. Time: 13:39 Reevaluation #3: I did discuss this with urology who recommends no more pain medicine and discharged home with antibiotics. She can follow up with them as needed. Patient continues to request Dilaudid. Educated patient on diagnosis and treatment plan, answered all question, patient verbalizes understanding. At this time patient will be discharged home, advised to return with new or worsening symptoms. Educated on worrisome signs and symptoms and when to return. At this time I feel comfortable discharge home. Time: 14:34 Medical Decision Making Medical Decision Making [facility] Narrative: 1032 This is a 74-year-old female presenting with bilateral flank pain, abdominal pain, nausea and vomiting ongoing for the past day. History of kidney stones Physical exam CVA tenderness bilaterally with diffuse abdominal discomfort. Patient appears uncomfortable. I suspect kidney stones. Unlikely pyelonephritis. Unlikely abdominal aortic dissection. Will rule out UTI. Will also rule out metabolic derangements. No signs of acute abdomen. Plan labs, imaging, urine Differential Diagnosis Differential Diagnoses: The differential diagnosis associated with the presentation includes (I suspect kidney stones. Unlikely pyelonephritis. Unlikely abdominal aortic dissection. Will rule out UTI. Will also rule out metabolic derangements. No signs of acute abdomen.) Admission/Observation Consideration of admission/observation: Escalation of care including admission/observation considered Lab Data [facility] Lab Attestation statement: I reviewed the patient's lab results. 03/08/25 10:46 03/08/25 10:46 Labs: Lab Results 03/08/25 03/08/25 Range/Units 10:46 13:53 WBC 4.5 L (4.8-10.8) X10*3/uL RBC 4.16 L (4.20-5.50) X10*6/uL Hgb 11.0 L (12.0-16.0) g/dl Hct 33.4 L (37.0-47.0) % MCV 80.3 (80.0-98.0) fL MCH 26.4 L (27.0-33.0) pg MCHC 32.9 (31.0-35.0) g/dl RDW 14.4 (11.0-16.0) % Plt Count 247 (160-400) X10*3/uL MPV 9.4 (9.4-12.3) fL Immature Gran % (Auto) 0.0 (0.0-0.4) % Neut % (Auto) 46.0 (45-73) % Lymph % (Auto) 44.1 H (20-40) % [place] % (Auto) 6.2 (2-11) % Eos % (Auto) 3.3 (0-4) % Baso % (Auto) 0.4 (0-2) % Lymph # (Auto) 2.0 (1.2-4.9) X10*3/uL [place] # (Auto) 0.3 (0.1-1.2) X10*3/uL Eos # (Auto) 0.2 (0.0-0.4) X10*3/uL Baso # (Auto) 0.0 (0.0-0.2) X10*3/uL Abs Immat Gran (auto) 0.00 (0.00-0.03) X10*3/uL Absolute Neuts (auto) 2.1 (2.0-8.3) x10*3/uL Absolute Nucleated RBC 0.000 (0.0-0.012) X10*3/uL Nucleated RBC % (auto) 0.0 (0.0-0.2) /100WBC Sodium 142 (135-145) mmol/L Potassium 3.3 (3.3-5.1) mmol/L Chloride 110 H (96-108) mmol/L Carbon Dioxide 24 (22-29) mmol/L Anion Gap 11 L (12-20) BUN 9 (9-16) mg/dL Creatinine 0.57 (0.5-1.4) mg/dL Estim Creat Clear Calc 93.6 Estimated GFR > 60 Random Glucose 120 H (60-115) mg/dL Calcium 8.7 (8.4-10.2) mg/dL Magnesium 1.8 (1.6-2.6) mg/dL Total Bilirubin 0.1 (0.0-1.0) mg/dL AST 22 (5-31) U/L ALT 14 (0-31) U/L Alkaline Phosphatase 102 (39-117) U/L Total Protein 6.8 (6.5-8.0) g/dL Albumin 4.1 (3.5-5.0) g/dL Urine Color [place] A Urine Appearance Clear Urine pH 5.0 (5.0-9.0) Ur Specific [place] 1.025 (1.005-1.025) Urine Protein Negative (Neg-Trace) mg/dL Urine Glucose (UA) >=1000 H (Negative) mg/dL Urine Ketones Negative (Negative) mg/dL Urine Blood Negative (Negative) Urine Nitrite Negative (Negative) Ur Leukocyte Esterase Negative (Negative) Urine RBC 0-2 (0-2) /HPF Urine WBC 0-5 (0-5) /HPF Ur Squamous Epith Cells 0-2 (0-2) /HPF Urine Bacteria 4+ (None Seen) Hyaline Casts 0-2 (0-2) /LPF Urine Yeast Present Independent Interpretation I performed an independent interpretation of an: CT Scan Radiology Impression Discussion of test interpretation with radiology: I have reviewed the radiologist's reading. Medications Administered Discontinued Medications Generic Name Dose Route Start Last Admin Trade Name eHq PRN Reason Stop Dose Admin Hydromorphone HCl 1 mg 03/08/25 11:31 03/08/25 11:37 Hydromorphone Hcl 1 Mg/Ml Syringe IVPUSH 03/08/25 11:32 1 mg ONCE ONE Administration Protocol Sodium Chloride 1,000 mls @ 999 mls/hr 03/08/25 11:00 03/08/25 10:55 Ns IV 03/08/25 12:00 999 mls/hr .Q1H1M ADELA Administration Morphine Sulfate 4 mg 03/08/25 10:48 03/08/25 10:55 Morphine Sulfate 4 Mg/Ml Cartridge IVPUSH 03/08/25 10:49 4 mg ONCE ONE Administration Protocol Critical Care Time Critical Care Time Critical Care Time: Yes Total Critical Care Time: 35 Attestation: I attest to this time spent taking care of the patient, obtaining history, physical, reviewing labs, imaging, treatment of patients condition +/- specialist/hospitalist consult +/- procedure Discharge Plan Discharge Clinical Impression: UTI (urinary tract infection), Acute flank pain, Abdominal pain Patient Disposition: Home, Self-Care Instructions: Urinary Tract Infection in Women (ED), Abdominal Pain (ED), Flank Pain (ED) Additional Instructions: Take your medications as prescribed. If you were prescribed antibiotics today, it is important that you take your medication to their entirety, do not skip any doses, do not finish them early. Follow-up with your primary care provider this week. Return to the emergency department with new or worsening symptoms. Such as fevers, chills, chest pain, shortness of breath, nausea, vomiting, dizziness, headache, vision changes, lethargy In case of emergency call 911 IMPRESSION: 1. Borderline dilatation of the left renal collecting system with mild left-sided uroepithelial thickening. Consider pyelonephritis or recently passed stone. 2. There are tiny nonobstructive calculi within the bilateral kidneys. Prescriptions: New cefuroxime axetil 250 mg tablet 250 mg PO BID 7 Days Qty: 14 0RF acetaminophen [Tylenol] 325 mg tablet 650 mg PO Q6H PRN (Reason: fever or pain) Qty: 30 0RF No Action quetiapine 25 mg tablet 1 tab PO BID PRN (Reason: anxiety) atorvastatin 10 mg tablet 1 tab PO DAILY polyvinyl alcohol [Artificial Tears (polyvin alc)] 1.4 % drops 1 drp ophthalmic (eye) TID gabapentin 400 mg capsule 1 cap PO BEDTIME topiramate 25 mg tablet 1 tab PO BID clonidine HCl 0.2 mg tablet 1 tab PO BID PRN (Reason: panic attack) cyanocobalamin (vitamin B-12) 500 mcg tablet 1 tab PO DAILY ascorbic acid (vitamin C) 250 mg tablet 1 tab PO BID amlodipine 10 mg tablet 1 tab PO DAILY mirtazapine 30 mg tablet 1 tab PO BEDTIME gabapentin 100 mg capsule 1 cap PO TID PRN (Reason: anxiety) zolpidem 10 mg tablet 1 tab PO BEDTIME PRN (Reason: insomnia) albuterol sulfate [ProAir HFA] 90 mcg/actuation HFA aerosol inhaler 2 puff PO Q4-6H PRN (Reason: dyspnea) fluoxetine 20 mg capsule 3 cap PO QAM loratadine 10 mg tablet 1 tab PO DAILY tramadol 50 mg tablet 50 mg PO Q8H PRN (Reason: pain) Qty: 3 0RF sennosides [senna] 8.6 mg tablet 8.6 mg PO BEDTIME Qty: 14 0RF docusate sodium [Colace] 100 mg capsule 100 mg PO BID PRN (Reason: Constipation) Qty: 14 0RF dicyclomine 10 mg capsule 10 mg PO BID Qty: 14 0RF tamsulosin [Flomax] 0.4 mg capsule 0.4 mg PO BEDTIME Qty: 14 0RF oxycodone 5 mg tablet 5 mg PO Q8H PRN (Reason: severe pain (scale score 7-10)) Qty: 9 0RF Rx Instructions: Partial Fill upon patient request. acetaminophen 500 mg capsule 1,000 mg PO Q8H PRN (Reason: fever or pain) Qty: 14 0RF phenazopyridine 200 mg tablet 200 mg PO TID PRN (Reason: Dysuria) Qty: 6 0RF ondansetron 4 mg tablet,disintegrating 4 mg PO Q6H PRN (Reason: nausea and vomiting) Qty: 10 0RF cyclobenzaprine 10 mg tablet 10 mg PO TID PRN (Reason: muscle spasm) Qty: 20 0RF acetaminophen 325 mg tablet 650 mg PO Q6H PRN (Reason: fever or pain) Qty: 20 0RF Referrals: [facility] [Provider Group, Urology] Amber Quiroz MD [Primary Care Provider, Internal Medicine] Print Language: [place]
[2025-03-08 10:37] VITALS: BP 125/75; PULSE 97; RESP 18; TEMP 36.9; O2SAT 96; BMI 29.0
[2025-03-08 10:51] LABS: MANUAL DIFF FLAG NO
[2025-03-08 10:52] LABS: Hematocrit 33.4 % (37.0-47.0); Hemoglobin 11.0 g/dl (12.0-16.0); Imm Gran Abs Auto 0.00 X10*3/uL (0.00-0.03); Imm Gran Pct Auto 0.0 % (0.0-0.4); Lymphocytes Absolute Auto 2.0 X10*3/uL (1.2-4.9); Mean Corpuscular HGB Conc 32.9 g/dl (31.0-35.0); Mean Corpuscular Hemoglobin 26.4 pg (27.0-33.0); Mean Corpuscular Volume 80.3 fL (80.0-98.0); NRBC Abs Auto 0.000 X10*3/uL (0.0-0.012); NRBC Pct Auto 0.0 /100WBC (0.0-0.2); Platelet Count 247 X10*3/uL (160-400); Red Blood Count 4.16 X10*6/uL (4.20-5.50); White Blood Count 4.5 X10*3/uL (4.8-10.8)
--- OUTSIDE RECORDS SUMMARY | 2025-03-08 11:07 | XMS_ITS | Clinical Summary ---
Author Organization [facility] Address [address] [place] [id number] Phone Care Team Providers Care Housing Management Officer Name Role Phone Physician, No Pcp Primary Care Provider Unavaila ble Allergies Active Allergy Reactions Criticality Noted Date Comments Aspirin Congestion of the throat 08/21/2024 Ibuprofen Swallowing Problem 08/21/2024 Acetaminophen Swallowing Problem 08/21/2024 Medications No known medications Active Problems No known active problems Social History Tobacco Use Types Packs/Day Years [...] 74 08/21/2024 4:25 PM EST Temperature 36.6 C (97.9 F) 08/21/2024 4:10 PM EST Respiratory Rate 16 08/21/2024 4:25 PM EST [...] Panel) 05/31/2022 Colorectal Cancer Screening: Colonoscopy 05/31/2022 HIV Screening 05/31/2022 Hepatitis C Screening 05/31/2022 Social Influencers of Health Screening 05/31/2022 Zoster Vaccines (2 of 2) 05/29/2023 04/03/2023 Depression Screening 07/03/2024 RSV Immunization Adult Patients (1 - Risk 60-74 years 1-dose series) 2024 COVID-19 Vaccine (4 - season) 2025 08/10/2021, 02/19/2021, 01/29/2021 Influenza Vaccine (#1) 2025 , 04/02/2021, 06/29/2020, Additional history exists Hypertension/CHF/CAD Annual BMP Blood Test 08/21/2025 08/21/2024 DTaP,Tdap,and Td Vaccines (5 - Td or Tdap) 03/15/2029 03/15/2019, 12/21/2012, 11/05/2012, Additional history exists Hepatitis B Vaccines Completed 11/29/2023, 04/18/2023, 03/22/2023 [...] Procedure Name Priority Date/Time Associated Diagnosis Comments COMPREHENSIVE METABOLIC PANEL STAT 08/21/2024 3:50 PM EST from Last 3 Months or Most Recently Relevant to Health Maintenance Results * (ABNORMAL) Comprehensive metabolic panel (08/21/2024 3:50 PM EST) Sodium 144 133 - 145 mmol/L LAB CHEMISTRY METHOD 08/21/2024 4:26 PM [facility] Potassium 3.5 3.5 - 5.5 mmol/L LAB CHEMISTRY METHOD 08/21/2024 4:26 PM [facility] Chloride 113(H) 96 - 110 mmol/L LAB CHEMISTRY METHOD 08/21/2024 4:26 PM [facility] CO2 23 21 - 32 mmol/L LAB CHEMISTRY METHOD 08/21/2024 4:26 PM [facility] Anion Gap 8 3 - 11 LAB CHEMISTRY METHOD 08/21/2024 4:26 PM [facility] Glucose 108(H) 70 - 100 mg/dL LAB CHEMISTRY METHOD 08/21/2024 4:26 PM [facility] BUN 13 5 - 25 mg/dL LAB CHEMISTRY METHOD 08/21/2024 4:26 PM [facility] Creatinine 0.54 0.50 - 1.10 mg/dL LAB CHEMISTRY METHOD 08/21/2024 4:26 PM [facility] eGFR 106 >=60 mL/min/1. 73m2 LAB CHEMISTRY METHOD 08/21/2024 4:26 PM [facility] Comment:Calculation based on the Chronic Kidney Disease Epidemiology Collaboration (CKD-EPI) equation refit without adjustment for race. BUN/Creatinine Ratio 24.1 LAB CHEMISTRY METHOD 08/21/2024 4:26 PM [facility] Calcium 9.3 8.5 - 10.5 mg/dL LAB CHEMISTRY METHOD 08/21/2024 4:26 PM [facility] AST (SGOT) 27 10 - 42 unit/L LAB CHEMISTRY METHOD 08/21/2024 4:26 PM EST [facility] ALT (SGPT) 36 10 - 60 unit/L LAB CHEMISTRY METHOD 08/21/2024 4:26 PM EST [facility] Alkaline Phosphatase 109 42 - 121 unit/L LAB CHEMISTRY METHOD 08/21/2024 4:26 PM [facility] Total Protein 7.2 6.0 - 8.0 g/dL LAB CHEMISTRY METHOD 08/21/2024 4:26 PM EST [facility] Albumin 3.9 3.2 - 5.0 g/dL LAB CHEMISTRY METHOD 08/21/2024 4:26 PM [facility] Total Bilirubin 0.2 0.0 - 1.4 mg/dL LAB CHEMISTRY METHOD 08/21/2024 4:26 PM [facility] Blood Venous blood specimen / Unknown Venipuncture / Unknown 08/21/2024 3:50 PM EST 08/21/2024 3:56 PM EST us Ramiro Maier DO LAB BLOOD ORDERABLES Final Resu lt [facility] [address] [place] [address], from Last 3 Months or Most Recently Relevant to Health Maintenance Insurance MEDICAID - [place] Care Teams Housing Management Officer Relationship Specialty Start Date End Date Physician, No Pcp PCP - General 08/21/24
--- OUTSIDE RECORDS SUMMARY | 2025-03-08 11:07 | XMS_ITS | Encounter Summary ---
Author Organization [facility] Address [address] [place] [address] Care Team Providers Care Wound Care Coordinator Name Role Phone Physician, No Pcp Primary Care Provider Unavaila ble Encounter Details Date Type Department Care Team (Late st Contact Info) Description 09/25/2024 Lab Requisition [facility] - Main Lab [address] [facility] [place] [address] Zachery Chi PA [address] [place] [address] Calculus of ureter Social History [...] LAB CHEMISTRY METHOD 09/25/2024 7:10 PM EDT [facility] Blood Venous blood specimen / Unknown 09/25/2024 3:15 PM EDT 09/25/2024 6:18 PM EDT us Zachery Chi PA LAB BLOOD ORDERABLES Final Res ult [facility] [address] [place] [address], documented in this encounter Visit Diagnoses Diagnosis Calculus of ureter documented in this encounter Care Teams Wound Care Coordinator Relationship Specialty Start Date End Date Physician, No Pcp PCP - General 08/21/24 documented as of this encounter
[2025-03-08 11:23] LABS: Alanine Aminotransferase 14 U/L (0-31); Albumin Level 4.1 g/dL (3.5-5.0); Alkaline Phosphatase 102 U/L (39-117); Anion Gap 11 (12-20); Aspartate Amino Transferase 22 U/L (5-31); Blood Urea Nitrogen 9 mg/dL (9-16); Calcium 8.7 mg/dL (8.4-10.2); Carbon Dioxide 24 mmol/L (22-29); Chloride 110 mmol/L (96-108); Creatinine Clr Calc Pharmacy 93.6; Estimated Glomerular Filt Rate > 60; Magnesium 1.8 mg/dL (1.6-2.6); Potassium 3.3 mmol/L (3.3-5.1); Sodium 142 mmol/L (135-145); Total Protein 6.8 g/dL (6.5-8.0)
[2025-03-08 11:37] VITALS: RESP 20
[2025-03-08 12:02] VITALS: BP 125/78; PULSE 70; RESP 18; TEMP 36.4; O2SAT 97
[2025-03-08 14:01] LABS: Appearance Urine Clear; Glucose Urine UA >=1000 mg/dL (Negative); PH 5.0 (5.0-9.0); Specific Gravity - Urine 1.025 (1.005-1.025); UMIC TRIGGER UACC YES
[2025-03-08 14:46] VITALS: BP 117/84; PULSE 65; RESP 18; O2SAT 98
[2025-03-08 15:05] VITALS: BP 117/84; PULSE 65; RESP 18; TEMP -17.7; TEMP 0; O2SAT 98
== END 2025-03-08 15:06 | disposition home or self-care (01) ==
PROVIDERS: Physician Assistant; Emergency Provider Emergency Medicine; PCP Family Medicine
DX: N39.0 Urinary tract infection, site not specified (principal); R10.9 Unspecified abdominal pain; R11.2 Nausea with vomiting, unspecified; Z87.442 Personal history of urinary calculi
CPT/HCPCS: 36415; 74176; 80053; 81001; 81003; 83735; 85025; 96361; 96374; 96375; 99284; J1171; J2270

== ENCOUNTER → 2025-03-08 10:27 | Outpatient (BNV) | payer MEDICAID, SELFPAY | PROVIDERS: Emergency Provider Emergency Medicine; PCP Family Medicine; Visit Provider Radiology Diagnostic Radiology | DX: N20.0 Calculus of kidney (principal) | CPT/HCPCS: 74176 ==

== ENCOUNTER 2025-04-17 01:50 | Emergency (ER) | payer MEDICAID, SELFPAY ==
[2025-04-17 01:58] VITALS: BP 170/80; PULSE 110; O2SAT 99
[2025-04-17 02:07] VITALS: BP 101/61; PULSE 102; RESP 20; TEMP 36.4; O2SAT 96
[2025-04-17 02:18] VITALS: BP 101/61; PULSE 95; RESP 18; TEMP 36.7; O2SAT 97; BMI 26.1
--- OUTSIDE RECORDS SUMMARY | 2025-04-17 02:43 | XMS_ITS | Encounter Summary ---
Author Organization [facility] Address [address] [place] [address] Care Team Providers Care Equestrian Trainer Name Role Phone Physician, No Pcp Primary Care Provider Unavaila ble Encounter Details Date Type Department Care Team (Late st Contact Info) Description 09/25/[address] [facility] - Main Lab [address] [facility] [place] [address] Zachery Chi PA [address] [place] [address] Calculus of ureter Social History [...] Author No 08/21/2024 3:20 PM EST Lynn Bentely RN * Do you have serious difficulty [...] LAB CHEMISTRY METHOD 09/25/2024 7:10 PM EDT [facility] Blood Venous blood specimen / Unknown 09/25/2024 3:15 PM EDT 09/25/2024 6:18 PM EDT us Zachery Chi PA LAB BLOOD ORDERABLES Final Res ult [facility] [address] [place] [address], documented in this encounter Visit Diagnoses Diagnosis Calculus of ureter documented in this encounter Care Teams Equestrian Trainer Relationship Specialty Start Date End Date Physician, No Pcp PCP - General 08/21/24 documented as of this encounter
--- OUTSIDE RECORDS SUMMARY | 2025-04-17 02:43 | XMS_ITS | Encounter Summary ---
Author Organization [employer] Address [address] [facility] 7 [place] [address] Care Team Providers Care Paper Tester Name Role Phone Amber Quiroz MD Primary Care Provider [phone] Fred Parker RN Unavailable [phone] Sherry Herbert Unavailable Reason for Visit * Reason Comments Med Refill Encounter Details Date Type Department Care Team (Late st Contact Info) Description 04/26/2023 Refill [facility] [address] [place], [place] [phone] Alan Partida MD [address] [place], [place] [phone] Moderate persistent asthma without complication; Nausea Social [...] alone documented in this encounter Care Teams Paper Tester Relationship Specialty Start Date End Date Amber Quiroz MD [address] [place], [place] [phone] PCP - General Family Medicine 07/03/18 Fred Parker, RN [address] [place] [id number] Registered Nurse Family Medicine 04/16/25 Sherry Herbert 04/16/25 documented as of this encounter
--- OUTSIDE RECORDS SUMMARY | 2025-04-17 02:43 | XMS_ITS ---
Author Organization [employer] Address [address] [facility] 7 [place] [address] Care Team Providers Care Family Consultant Name Role Phone Amber Quiroz MD Primary Care Provider [phone] Fred Parker RN Unavailable [phone] Sherry Herbert Unavailable CM Complex Status:Identified (Enrolling) Start date:04/16/2025 Enrollment reason:ADT Feed Overview [facility] ED 04/15/25 Case Team Name Relationship Phone Fred Parker RN(Responsible Staff) Registered Jeremie salgado [phone] Continued Care and Services Coordination
--- OUTSIDE RECORDS SUMMARY | 2025-04-17 02:43 | XMS_ITS ---
Author Organization [employer] Address [address] [facility] 7 [place] [address] Care Team Providers Care Laboratory Sampler Name Role Phone Amber Quiroz MD Primary Care Provider [phone] Fred Parker RN Unavailable Sherry Herbert Unavailable CHW Complex Status:Identified (Enrolling) Start date:04/16/2025 Enrollment reason:ADT Feed Overview [facility] 04/15/25 Case Team Name Relationship Phone Sherry Herbert(Responsible Staff) [phone] Continued Care and Services Coordination
--- OUTSIDE RECORDS SUMMARY | 2025-04-17 02:43 | XMS_ITS | Encounter Summary ---
Author Organization [employer] Address 75 [facility] 7t [place] [address] Care Team Providers Care Retail Stocker Name Role Phone Amber Quiroz MD Primary Care Provider [phone] Fred Parker RN Unavailable [phone] Sherry Herbert Unavailable Reason for Visit * Reason Onset Date Comments Appointment Request 11/22/2023 Encounter Details Date Type Department Care Team (Late st Contact Info) Description 11/22/2023 Telephone [facility] MEDICINE 230 [place] [address] Amber Quiroz MD 230 [place], [place] [phone] Appointment Request Social History Tobacco Use Types [...] due tosleep difficulty. Please contact pt at [phone]. documented in this encounter Plan of Treatment Not on file documented as of this encounter Visit Diagnoses Not on filedocumented in this encounter Care Teams Retail Stocker Relationship Specialty Start Date End Date Amber Quiroz MD 230 [place] [address] PCP - General Family Medicine 07/03/18 Fred Parker, DOROTA [address] [place] [address] Registered Nurse Family Medicine 04/16/25 Sherry Herbert 04/16/25 documented as of this encounter
--- OUTSIDE RECORDS SUMMARY | 2025-04-17 02:43 | XMS_ITS | Encounter Summary ---
Author Organization [employer] Address 75 [facility] 7t [place] [address] Care Team Providers Care Linseed Cake Trimmer Name Role Phone Amber Quiroz MD Primary Care Provider [phone] Fred Parker RN Unavailable [phone] Sherry Herbert Unavailable Reason for Visit * Reason Comments Med Refill Encounter Details Date Type Department Care Team (Late st Contact Info) Description 06/01/2023 Refill [facility] MEDICINE 230 [place], [place] [phone] Amber Quiroz MD 230 [place], [place] [phone] Pain Social History Tobacco Use Types Packs/Day [...] pain documented in this encounter Care Teams Linseed Cake Trimmer Relationship Specialty Start Date End Date Amber Quiroz MD [address] [place] [address] PCP - General Family Medicine 07/03/18 Fred Parker, DOROTA [address] [place] [address] Registered Nurse Family Medicine 04/16/25 Sherry Herbert 04/16/25 documented as of this encounter
--- OUTSIDE RECORDS SUMMARY | 2025-04-17 02:43 | XMS_ITS | Encounter Summary ---
Author Organization [employer] Address 75 [facility] 7t [place] [address] Care Team Providers Care Welder Shielded Metal Arc Name Role Phone Amber Quiroz MD Primary Care Provider [phone] Fred Parker RN Unavailable [phone] Sherry Herbert Unavailable Reason for Visit * Reason Comments Med Refill Encounter Details Date Type Department Care Team (Late st Contact Info) Description 11/18/2024 Refill [facility] [address] [place], [place] [phone] Amber Quiroz MD 230 [place], [place] [phone] Nephrolithiasis Social History Tobacco Use Types Packs/Day Years Used Date Smoking Tobacco: Former Cigarettes Housing Stability Answer Date Recorded What is your housing situation today? I have loy soria 05/08/[address] you [...] kidney documented in this encounter Care Teams Welder Shielded Metal Arc Relationship Specialty Start Date End Date Amber Quiroz MD 230 [place] [address] PCP - General Family Medicine 07/03/18 Fred Parker, RN [address] [place] [address] Registered Nurse Family Medicine 04/16/25 Sherry Herbert 04/16/25 documented as of this encounter
--- OUTSIDE RECORDS SUMMARY | 2025-04-17 02:43 | XMS_ITS | Encounter Summary ---
Author Organization [employer] Address [address] [place] [address] 7 [place] [address] Care Team Providers Care Compliance Lead Name Role Phone Amber Quiroz MD Primary Care Provider [phone] Fred Parker RN Unavailable [phone] Sherry Herbert Unavailable Reason for Visit * Reason Comments Med Refill Encounter Details Date Type Department Care Team (Late st Contact Info) Description 11/29/2023 Refill [facility] MEDICINE 230 [place], [place] [phone] Charleen Latif MD 230 [place], [place] [phone] Nephrolithiasis Social History Tobacco Use Types Packs/Day [...] kidney documented in this encounter Care Teams Compliance Lead Relationship Specialty Start Date End Date Amber Quiroz MD [address] [place] [address] PCP - General Family Medicine 07/03/18 Fred Parker RN [address] [place] [address] Registered Nurse Family Medicine 04/16/25 Sherry Herbert 04/16/25 documented as of this encounter
--- OUTSIDE RECORDS SUMMARY | 2025-04-17 02:43 | XMS_ITS | Encounter Summary ---
Author Organization [employer] Address 75 [facility] 7 [place] [address] Care Team Providers Care Wrapping Machine Helper Name Role Phone Amber Quiroz MD Primary Care Provider [phone] Fred Parker RN Unavailable [phone] Sherry Herbert Unavailable Reason for Visit * Reason Comments Care Coordination [facility] outreach Encounter Details Date Type Department Care Team (Latest Contact Info) Description 04/16/2025 Patient Outreach [facility] MEDICINE 230 [place], [place] [phone] Amber Quiroz MD 230 [place] [address] Care Coordination (C3 LEE Herbert telephone call outreach ) Social History Tobacco Use Types Packs/Day Years Used Date Smoking Tobacco: Former Cigarettes Depression Answer Date Recorded Patient Health Questionnaire-9 Score 9 12/02/2024 Patient Health Questionnaire-9 Score 9 12/02/2024 Last PHQ-9: Questionnaire Data Not on file 0 12/02/2024 Housing Stability Answer Date Recorded What is [...] off services in your home? No 05/08/2023 Depression Answer Date Recorded Patient Health Questionnaire-2 Score 3 12/02/2024 Internet Access Answer Date Recorded Internet Access Q1 Yes 02/27/2025 Internet Access Q2 Not on file 02/27/2025 Comments Unknown Sex and Gender Information Value Date Recorded Sex Assigned at Female 05/02/2022 10:14 AM EDT Legal Sex Female 10:14 AM EDT Gender Identity Female 05/02/2022 10:14 AM EDT Sexual Orientation Straight 05/02/2022 10 :14 AM EDT documented as of this encounter Progress Notes * Sherry Herbert - 04/16/2025 9:07 AM EDT [facility] ED 04/15/25. Please outreach pt for enrollment. CHW Sherry Herbert reviewed chart review completed by MARIE Parker RN documented in this encounter Plan of Treatment Not on file documented as of this encounter Visit Diagnoses Not on filedocumented in this encounter Additional Health Concerns Assessment Noted Time PHQ-9 Depression Total Score: 9 12/03/19 25 4:14 PM EDT documented as of this encounter Care Teams Wrapping Machine Helper Relationship Specialty Start Date End Date Amber Quiroz MD 230 [place] [address] PCP - General Family Medicine 07/03/18 Fred Parker RN [address] [place] [address] Registered Nurse Family Medicine 04/16/25 Sherry Herbert 04/16/25 documented as of this encounter
--- OUTSIDE RECORDS SUMMARY | 2025-04-17 02:43 | XMS_ITS | Clinical Summary ---
Author Organization [facility] Address [address] [place] [phone] Phone Care Team Providers Care Claims Adjuster Name Role Phone Physician, No Pcp Primary [...] Last Done Comments Breast Cancer Screening 1965 Colorectal Cancer Screening: Colonoscopy 1964 Cervical Cancer Screening: Pap Smear 1985 RSV Immunization Adult Patients (1 - Risk 50-74 years 1-dose series) 2014 Pneumococcal Vaccine: 50+ Years (3 of 3 - PCV20 or PCV21) 04/29/2022 04/29/2017, 09/14/2015, 09/21/2014, Additional history exists Cholesterol Screening (Lipid Panel) 05/31/2022 HIV Screening 05/31/2022 Hepatitis C Screening 05/31/2022 Social Influencers of Health Screening 05/31/2022 Zoster Vaccines (2 of 2) 05/29/2023 04/03/2023 Depression Screening 07/03/2024 COVID-19 Vaccine (4 - season) 2025 08/10/2021, 02/19/2021, 01/29/2021 Influenza Vaccine (#1) 2025 3, 04/02/2021, 06/29/2020, Additional history exists Hypertension/CHF/CAD [...] mmol/L LAB CHEMISTRY METHOD 08/21/2024 4:26 PM [facility] Potassium 3.5 3.5 - 5.5 mmol/L LAB CHEMISTRY METHOD 08/21/2024 4:26 PM [facility] Chloride 113(H) 96 - 110 mmol/L LAB CHEMISTRY METHOD 08/21/2024 4:26 PM [facility] CO2 23 21 - 32 mmol/L LAB CHEMISTRY METHOD 08/21/2024 4:26 PM [facility] Anion Gap 8 3 - 11 LAB CHEMISTRY METHOD 08/21/2024 4:26 PM [facility] Glucose 108(H) 70 - 100 mg/dL LAB CHEMISTRY METHOD 08/21/2024 4:26 PM [facility] BUN 13 5 - 25 mg/dL LAB CHEMISTRY METHOD 08/21/2024 4:26 PM [facility] Creatinine 0.54 0.50 - 1.10 mg/dL LAB CHEMISTRY METHOD 08/21/2024 4:26 PM [facility] eGFR 106 >=60 mL/min/1. 73m2 LAB CHEMISTRY METHOD 08/21/2024 4:26 PM [facility] Comment:Calculation based on the Chronic Kidney Disease Epidemiology Collaboration (CKD-EPI) equation refit without adjustment for race. BUN/Creatinine Ratio 24.1 LAB CHEMISTRY METHOD 08/21/2024 4:26 PM [facility] Calcium 9.3 8.5 - 10.5 mg/dL LAB CHEMISTRY METHOD 08/21/2024 4:26 PM [facility] AST (SGOT) 27 10 - 42 unit/L LAB CHEMISTRY METHOD 08/21/2024 4:26 PM [facility] ALT (SGPT) 36 10 - 60 unit/L LAB CHEMISTRY METHOD 08/21/2024 4:26 PM EST [facility] Alkaline Phosphatase 109 42 - 121 unit/L LAB CHEMISTRY METHOD 08/21/2024 4:26 PM [facility] Total Protein 7.2 6.0 - 8.0 g/dL LAB CHEMISTRY METHOD 08/21/2024 4:26 PM EST [facility] Albumin 3.9 3.2 - 5.0 g/dL LAB CHEMISTRY METHOD 08/21/2024 4:26 PM [facility] Total Bilirubin 0.2 0.0 - 1.4 mg/dL LAB CHEMISTRY METHOD 08/21/2024 4:26 PM [facility] Blood Venous blood specimen / Unknown Venipuncture / Unknown 08/21/2024 3:50 PM EST 08/21/2024 3:56 PM EST us Ramiro Maier DO LAB BLOOD ORDERABLES Final Resu lt [facility] [address] [place] [address], from Last 3 Months or Most Recently Relevant to Health Maintenance Insurance MEDICAID - [place] Care Teams Claims Adjuster Relationship Specialty Start Date End Date Physician, No Pcp PCP - General 08/21/24
--- OUTSIDE RECORDS SUMMARY | 2025-04-17 02:43 | XMS_ITS | Encounter Summary ---
Author Organization [employer] Address [address] [facility] [address] 7t [place] [address] Care Team Providers Care Registered Nurse Step Down Name Role Phone Amber Quiroz MD Primary Care Provider [phone] Fred Parker RN Unavailable [phone] Sherry Herbert Unavailable Encounter Details Date Type Department Care Team (Late st Contact Info) Description 11/24/2023 Telephone [facility] MEDICINE 230 [place] [address] Amber Quiroz MD 230 [place] [address] Social History Tobacco Use Types Packs/Day Years [...] on filedocumented in this encounter Care Teams Registered Nurse Step Down Relationship Specialty Start Date End Date Amber Quiroz MD [address] [place] [address] PCP - General Family Medicine 07/03/18 Fred Parker RN [address] [place] [address] Registered Nurse Family Medicine 04/16/25 Sherry Herbert 04/16/25 documented as of this encounter
--- OUTSIDE RECORDS SUMMARY | 2025-04-17 02:43 | XMS_ITS | Encounter Summary ---
Author Organization [employer] Address 75 [facility] 7 [place] [address] Care Team Providers Care School Cafeteria Cook Name Role Phone Amber Quiroz MD Primary Care Provider [phone] Fred Parker RN Unavailable [phone] Sherry Herbert Unavailable Reason for Visit * Reason Comments Med Refill Encounter Details Date Type Department Care Team (Late st Contact Info) Description 04/26/2023 Refill [facility] MEDICINE 230 [place], [place] [phone] Amber Quiroz MD 230 [place], [place] [phone] Nausea Social History Tobacco Use Types Packs/Day [...] alone documented in this encounter Care Teams School Cafeteria Cook Relationship Specialty Start Date End Date Amber Quiroz MD 230 [place], [place] [phone] PCP - General Family Medicine 07/03/18 Fred Parker, RN [address] [place] [address] Registered Nurse Family Medicine 04/16/25 Sherry Herbert 04/16/25 documented as of this encounter
--- OUTSIDE RECORDS SUMMARY | 2025-04-17 02:43 | XMS_ITS | Encounter Summary ---
Author Organization [employer] Address 75 [facility] 7t [place] [address] Care Team Providers Care Financial Services Auditor Name Role Phone Amber Quiroz MD Primary Care Provider [phone] Fred Parker RN Unavailable [phone] Sherry Herbert Unavailable Encounter Details Date Type Department Care Team (Late st Contact Info) Description 12/14/2024 Orders Only [facility] MEDICINE 230 [place], [place] [phone] Amber Quiroz MD 230 [place] [address] Hyperglycemia (Primary Dx); Flank pain; Chronic thoracic back pain, unspecified back pain laterality; Loin pain hematuria syndrome Social History Tobacco Use Types Packs/Day Years [...] as of this encounter Plan of Treatment Scheduled Orders Name Type Priority Associated Diagnoses Orde r Schedule Hemoglobin A1c Lab Routine Hyperglycemia Expected: 12/14/2024 (Approximate), Expires: 12/14/2025 Albumin, Random Urine W/Creatinine Lab Routine Hyperglycemia Expected: 12/14/2024 (Approximate), Expires: 12/14/2025 Drug Toxicology Monitoring 1 Screen, Urine Lab Routine Flank pain Chronic thoracic back pain, unspecified back pain laterality Loin pain hematuria syndrome Expected: 12/14/2024 (Approximate), Expires: 12/14/2025 documented as of this encounter Visit Diagnoses Diagnosis Hyperglycemia- Primary Other abnormal glucose Flank pain Abdominal pain, unspecified site Chronic thoracic back pain, unspecified back pain laterality Loin pain hematuria syndrome documented in this encounter Additional Health Concerns Assessment Noted Time PHQ-9 Depression Total Score: 9 12/03/19 25 4:14 PM EDT documented as of this encounter Care Teams Financial Services Auditor Relationship Specialty Start Date End Date Amber Quiroz MD 230 [place] [address] PCP - General Family Medicine 07/03/18 Fred Parker RN [address] [place] [address] Registered Nurse Family Medicine 04/16/25 Sherry Herbert 04/16/25 documented as of this encounter
--- OUTSIDE RECORDS SUMMARY | 2025-04-17 02:43 | XMS_ITS | Encounter Summary ---
Author Organization [employer] Address 75 [facility] 7t [place] [address] Care Team Providers Care Facility Technician Name Role Phone Amber Quiroz MD Primary Care Provider [phone] Fred Parker RN Unavailable [phone] Sherry Herbert Unavailable Reason for Visit * Reason Comments Med Refill Encounter Details Date Type Department Care Team (Late st Contact Info) Description 11/12/2024 Refill [facility] MEDICINE 230 [place], [place] [phone] Amber Quiroz MD 230 [place], [place] [phone] Moderate persistent asthma without complication Social History [...] complication documented in this encounter Care Teams Facility Technician Relationship Specialty Start Date End Date Amber Quiroz MD 230 [place] [address] PCP - General Family Medicine 07/03/18 Fred Parker, RN 505 [place] [address] Registered Nurse Family Medicine 04/16/25 Sherry Herbert 04/16/25 documented as of this encounter
--- OUTSIDE RECORDS SUMMARY | 2025-04-17 02:43 | XMS_ITS | Encounter Summary ---
Author Organization [employer] Address 75 [facility] 7 [place] [address] Care Team Providers Care Child Attendant Name Role Phone Amber Quiroz MD Primary Care Provider [phone] Fred Parker RN Unavailable [phone] Sherry Herbert Unavailable Reason for Referral * Consultation (Routine) - Authorized Specialty Diagnoses / Procedures Referred By Catalina savage Referred To Contact Urology Diagnoses Nephrolithiasis Loin pain hematuria syndrome Recurrent urinary tract infection Amber Quiroz MD 230 [place] [address] Phone: tel: fax: [facility] Referral ID Status Reason Start Date Expiration Date Visits Requested Visits Authorized [id number] Authorized Specialty Services Required 01/17/2025 01/17/2026 6 6 Encounter Details Date Type Department Care Team (Late st Contact Info) Description 01/17/2025 Orders Only [facility] MEDICINE [address], [place] [phone] Amber Quiroz MD 230 [place] [address] Nephrolithiasis (Primary Dx); Loin pain hematuria syndrome; Recurrent urinary tract infection Social History Tobacco Use Types Packs/Day Years [...] of this encounter Plan of Treatment Scheduled Referrals Name Type Priority Associated Diagnoses Orde r Schedule Referral to Urology Outpatient Referral Routine Nephrolithiasis Loin pain hematuria syndrome Recurrent urinary tract infection Expected: 01/17/2025 (Approximate), Expires: 01/17/2026 documented as of this encounter Visit Diagnoses Diagnosis Nephrolithiasis- Primary Calculus of kidney Loin pain hematuria syndrome Recurrent urinary tract infection Urinary tract infection, site not specified documented in this encounter Additional Health Concerns Assessment Noted Time PHQ-9 Depression Total Score: 9 12/03/19 25 4:14 PM EDT documented as of this encounter Care Teams Child Attendant Relationship Specialty Start Date End Date Amber Quiroz MD 230 [place] [address] PCP - General Family Medicine 07/03/18 Fred Parker, DOROTA [address] [place] [address] Registered Nurse Family Medicine 04/16/25 Sherry Herbert 04/16/25 documented as of this encounter
--- OUTSIDE RECORDS SUMMARY | 2025-04-17 02:43 | XMS_ITS | Encounter Summary ---
Author Organization [employer] Address 75 [facility] 7t [place] [address] Care Team Providers Care Head Control Clerk Name Role Phone Amber Quiroz MD Primary Care Provider [phone] Fred Parker RN Unavailable [phone] Sherry Herbert Unavailable Reason for Visit * Reason Onset Date Comments status of oral surgery appt 11/11/2024 Encounter Details Date Type Department Care Team ([facility] st Contact Info) Description 11/11/2024 Telephone [facility] ADULT DENTAL [address] [place], [place] [phone] Francisco Mohan, TRAY [address] [place], [place] [phone] status of oral surgery appt Social History [...] filedocumented in this encounter Care Teams Head Control Clerk Relationship Specialty Start Date End Date Amber Quiroz MD 230 [place] [address] PCP - General Family Medicine 07/03/18 Fred Parker, RN [address] [place] [address] Registered Nurse Family Medicine 04/16/25 Sherry Herbert 04/16/25 documented as of this encounter
--- OUTSIDE RECORDS SUMMARY | 2025-04-17 02:43 | XMS_ITS | Encounter Summary ---
Author Organization [employer] Address 75 [facility] 7t [place] [address] Care Team Providers Care Timber Cruiser Name Role Phone Amber Quiroz MD Primary Care Provider [phone] Fred Parker RN Unavailable [phone] Sherry Herbert Unavailable Encounter Details Date Type Department Care Team (Late st Contact Info) Description 04/16/2025 Patient Outreach [facility] MEDICINE 230 [place], [place] [phone] Amber Quiroz MD 230 [place], [place] [phone] Social History Tobacco Use Types Packs/Day Years [...] documented as of this encounter Care Teams Timber Cruiser Relationship Specialty Start Date End Date Amber Quiroz MD 230 [place] [address] PCP - General Family Medicine 07/03/18 Fred Parker, RN 505 [place] [address] Registered Nurse Family Medicine 04/16/25 Sherry Herbert 04/16/25 documented as of this encounter
--- OUTSIDE RECORDS SUMMARY | 2025-04-17 02:43 | XMS_ITS | Encounter Summary ---
Author Organization [employer] Address 75 [facility] 7t [place] [address] Care Team Providers Care Pecan Picker Name Role Phone Amber Quiroz MD Primary Care Provider [phone] Fred Parker RN Unavailable [phone] Sherry Herbert Unavailable Encounter Details Date Type Department Care Team (Late st Contact Info) Description 12/18/2024 Telephone [facility] MEDICINE 230 [place], [place] [phone] Amber Quiroz MD 230 [place], [place] [phone] Social History Tobacco Use Types Packs/Day Years [...] * Telephone Encounter - Dede Christine - 12/18/2024 11:55 AM EDT Tc from pt returning call. Pt provided temporary contact number [phone] documented in this encounter Plan of Treatment Not on file documented as of this encounter Visit Diagnoses Not on filedocumented in this encounter Additional Health Concerns Assessment Noted Time PHQ-9 Depression Total Score: 9 12/03/19 25 4:14 PM EDT documented as of this encounter Care Teams Pecan Picker Relationship Specialty Start Date End Date Amber Quiroz MD 230 [place] [address] PCP - General Family Medicine 07/03/18 Fred Parker, DOROTA [address] [place] [address] Registered Nurse Family Medicine 04/16/25 Sherry Herbert 04/16/25 documented as of this encounter
--- OUTSIDE RECORDS SUMMARY | 2025-04-17 02:43 | XMS_ITS | Encounter Summary ---
Author Organization [employer] Address [address] [place] [address] 7 [place] [address] Care Team Providers Care Risk Advisor Name Role Phone Amber Quiroz MD Primary Care Provider [phone] Fred Parker RN Unavailable [phone] Sherry Herbert Unavailable Encounter Details Date Type Department Care Team (Late st Contact Info) Description 12/12/2022 Orders Only [facility] MEDICINE 230 [place], [place] [phone] Anabell Martinez LPN Social History Tobacco Use [...] on filedocumented in this encounter Care Teams Risk Advisor Relationship Specialty Start Date End Date Amber Quiroz MD 230 [place], [place] [phone] PCP - General Family Medicine 07/03/18 Fred Parker, RN [address] [place] [address] Registered Nurse Family Medicine 04/16/25 Sherry Herbert 04/16/25 documented as of this encounter
--- OUTSIDE RECORDS SUMMARY | 2025-04-17 02:43 | XMS_ITS | Encounter Summary ---
Author Organization [employer] Address 75 [facility] 7t [place] [address] Care Team Providers Care Rehabilitation Coordinator Name Role Phone Amber Quiroz MD Primary Care Provider [phone] Fred Parker RN Unavailable [phone] Sherry Herbert Unavailable Reason for Visit * Reason Onset Date Comments Nurse Triage 01/11/2024 Encounter Details Date Type Department Care Team (Late st Contact Info) Description 01/11/2024 Telephone [facility] MEDICINE 230 [place] [address] Amber Quiroz MD 230 [place], [place] [phone] Nurse Triage Social History Tobacco Use Types [...] HDF appt tomorrow at 1030am with García FORRESTER. RX updated with pending HDF. Team tasked that if medication available from PCP [facility] * Telephone Encounter - Lacy Sahni LPN - 01/11/2024 3:31 PM EDT Triage in process. Patient requesting pain medication for kidney stone pain in [facility] 01/07/24-01/08/24. Patient not seeing any [...] worse Override Notes: Seen and treated at [facility] known kidney stones wants something [...] on filedocumented in this encounter Care Teams Rehabilitation Coordinator Relationship Specialty Start Date End Date Amber Quiroz MD [address] [place] [address] PCP - General Family Medicine 07/03/18 Fred Parker, RN [address] [place] [address] Registered Nurse Family Medicine 04/16/25 Sherry Herbert 04/16/25 documented as of this encounter
--- OUTSIDE RECORDS SUMMARY | 2025-04-17 02:43 | XMS_ITS | Encounter Summary ---
Author Organization [employer] Address [address] [facility] [address] [place] [address] Care Team Providers Care Assembly Machine Operator Name Role Phone Amber Quiroz MD Primary Care Provider [phone] Fred Parker RN Unavailable [phone] Sherry Herbert Unavailable Encounter Details Date Type Department Care Team (Late st Contact Info) Description 09/04/2024 Orders Only [facility] MEDICINE [address] [place], [place] [phone] Amber Quiroz MD [address] [place] [address] Routine screening for STI (sexually transmitted infection) [...] disease documented in this encounter Care Teams Assembly Machine Operator Relationship Specialty Start Date End Date Amber Quiroz MD [address] [place] [phone] PCP - General Family Medicine 07/03/18 Fred Parker RN [address] [place] [address], [place] [address] Registered Nurse Family Medicine 04/16/25 Sherry Herbert 04/16/25 documented as of this encounter
--- OUTSIDE RECORDS SUMMARY | 2025-04-17 02:43 | XMS_ITS | Encounter Summary ---
Author Organization [employer] Address [address] [facility] 7 [place] [address] Care Team Providers Care Marine Structural Designer Name Role Phone Amber Quiroz MD Primary Care Provider [phone] Fred Parker RN Unavailable [phone] Sherry Herbert Unavailable Reason for Visit * Reason Comments Care Coordination C3CM- chart review Encounter Details Date Type Department Care Team (Latest Contact Info) Description 04/16/2025 Patient Outreach [facility] [address] [place], [place] [phone] Amber Quiroz MD [address] [place], [place] [phone] Care Coordination (C3CM- chart review) Social History Tobacco Use Types [...] as of this encounter Progress Notes * Fred Parker RN - 04/16/2025 8:43 AM EDT MARIE Parker RN, performed chart review, in anticipation of initial assessment with patient, aspatient has stratified for C3 Adult Complex Care through the ADT feed. History significant for anemia, anxiety, asthma with COPD, cobalamin deficiency, chronic pancreatitis, dyslipidemia, hypertension, GERD, history of total knee arthroplasty, impaired fasting glucose, mood disorder, osteoarthritisof knee, panic disorder without agoraphobia, recurrent UTI, disorder of lung, lung mass, loin pain hematuria syndrome, allergic rhinitis, chronic generalized abdominal pain, arthralgia of hip. Specialists include [facility] [place], ophthalmology, [facility] orthopaedic [place] ED visits within [facility] last 12 months include [facility] 04/15/25, [facility] 03/27/25, [facility] 03/08/25, [facility] 02/19/25, [facility] 02/08/25, [facility] 02/02/25, [facility] 01/09/25, [facility] 12/28/24, [facility] 12/25/24, [facility] 12/12/24, [facility] 12/10/24, [facility] 12/07/24, [facility] 11/29/24, etc... Last appointmentin PCP office on . No future appointment scheduled at this time. documented in this encounter Plan of Treatment Not on file documented as of this encounter Visit Diagnoses Not on filedocumented in this encounter Additional Health Concerns Assessment Noted Time PHQ-9 Depression Total Score: 9 12/03/19 25 4:14 PM EDT documented as of this encounter Care Teams Marine Structural Designer Relationship Specialty Start Date End Date Amber Quiroz MD [address] [place] [phone] PCP - General Family Medicine 07/03/18 Fred Parker RN [address] [place] [phone] Registered Nurse Family Medicine 04/16/25 Sherry Herbert 04/16/25 documented as of this encounter
--- OUTSIDE RECORDS SUMMARY | 2025-04-17 02:43 | XMS_ITS | Encounter Summary ---
Author Organization [employer] Address [address] [facility] 7[address] [place] [address] Care Team Providers Care Surveillance Specialist Name Role Phone Amber Quiroz MD Primary Care Provider [phone] Fred Parker RN Unavailable [phone] Sherry Herbert Unavailable Encounter Details Date Type Department Care Team (Late st Contact Info) Description 07/28/2022 Orders Only [facility] MEDICINE [address] [place], [place] [phone] Anabell Martinez LPN Social History Tobacco Use [...] (08/02/2022 12:29 AM EST) Color Urine Yellow [facility] Appearance Urine Turbid [facility] PH 6.5 5.0 - 9.0 [facility] Glucose Urine UA Negative Negative mg/dL [facility] Urine Blood Trace(A) Negative [facility] Specific [place] - Urine 1.020 1.005 - 1.025 [facility] Urine Protein 30 (1+)(A) Neg-Trace mg/dL [facility] Urine Ketones Negative Negative mg/dL [facility] Nitrite Urine Negative Negative [facility] Leukocyte Esterase Urine Large (3+)(A) Negative [facility] RBC Urine 0-2 0 - 2 /HPF [facility] Urine WBC >50(A) 0 - 5 /HPF [facility] Urine Squamous Epithelial Cell 6-10 0 - 2 /HPF [facility] Urine Bacteria 1+ None Seen [facility] Hyaline Casts, Urine 3-5 0 - 2 /LPF [facility] 08/02/2022 12:2 9 AM EST 08/02/2022 12:31 AM EST Narrative [facility] - 08/02/2022 12:50 AM EST Urine, Clean Catch us [facility] External Provider LAB URI NE ORDERABLES Final Result [facility] [address] [place] [phone] * SARS-CoV-2 RNA, Influenza A/B, and RSV RNA, Ql NAAT (08/02/2022 12:17 AM EST) Influenza A PCR NEGATIVE Negative [facility] Influenza B PCR NEGATIVE Negative [facility] Resp Syncy Virus RNA Qual PCR NEGATIVE Negative [facility] SARS COV2 PCR NEGATIVE Negative [facility] SARS/Flu/RSV Note See Note [facility] Comment:All test results mus t be [...] use by authorized laboratories.Testing performed on the [employer] GeneXpert utilizingreal-time RT-PCR.All SARS CoV2 and positive influenza A/B results arereported to [facility]. 08/02/2022 12:1 7 AM EST 08/02/2022 12:19 AM EST us [facility] Exter nal Provider LAB MICROBIOLOGY - GENERAL ORDERABLES Final Result [facility] [address] [place] [phone] * (ABNORMAL) Basic Metabolic Panel (08/02/2022 12:17 AM EST) Sodium 140 135 - 145 mmol/L [facility] Potassium 3.9 3.3 - 5.1 mmol/L [facility] Chloride 105 96 - 108 mmol/L [facility] Carbon Dioxide 24 22 - 29 mmol/L [facility] Anion Gap 15 12 - 20 [facility] Urea Nitrogen (BUN) 14 9 - 16 mg/dL [facility] Creatinine, Serum 0.75 0.5 - 1.4 mg/dL [facility] Creatinine Clr Calc Pharmacy 71.4 [facility] Comment:Provided height and weight: 162.56 cm,63.503 kg.eGFR (calculated from the MDRD study equation) and eCrCl(calculated from the Cockcroft-Gault equation) are based ondifferent parameters and may not yield comparable results.If eCrCl result is absurd, please check patient'sheight/weight. Estimated Glomerular Filt Rate >60 [facility] Comment:NOTE: For -Am erican individuals, multiply the result by 1.210.Chronic Kidney Disease: Estimated GFR < 60 mL/min/[id number] Kidney Disease: Estimated GFR < 15 mL/min/1.73m2 Glucose 119(H) 60 - 115 mg/dL [facility] Calcium 9.0 8.4 - 10.2 mg/dL [facility] 08/02/2022 12:1 7 AM EST 08/02/2022 12:19 AM EST [facility] External Provider LAB BLO OD ORDERABLES Final Result [facility] [address] [place] [phone] * (ABNORMAL) CBC auto differential (08/02/2022 12:17 AM EST) White Blood Count 6.4 4.8 - 10.8 X10*3/uL [facility] Red Blood Count 3.96(L) 4.20 - 5.50 X10*6/uL [facility] Hemoglobin 10.8(L) 12.0 - 16.0 g/dl [facility] Hematocrit 33.0(L) 37.0 - 47.0 % [facility] Mean Corpuscular Volume 83.3 80.0 - 98.0 fL [facility] Mean Corpuscular Hemoglobin 27.3 27.0 - 33.0 pg [facility] Mean Corpuscular HGB Conc 32.7 31.0 - 35.0 g/dl [facility] Red Cell Distribution Width 14.2 11.0 - 16.0 % [facility] Platelet Count 202 160 - 400 X10*3/uL [facility] Mean Platelet Volume 9.2(L) 9.4 - 12.3 fL [facility] Neutrophils Percent Auto 68.5 45 - 73 % [facility] Imm Gran Pct Auto 0.2 0.0 - 0.4 % [facility] Lymphocytes Percent Auto 21.9 20 - 40 % [facility] Monocytes Percent Auto 8.6 2 - 11 % [facility] Eosinophils Percent Auto 0.5 0 - 4 % [facility] Basophils Percent Auto 0.3 0 - 2 % [facility] NRBC Pct Auto 0.0 0.0 - 0.2 /100WBC [facility] Neutrophils Absolute Auto 4.4 2.0 - 8.3 x10*3/uL [facility] Imm Gran Abs Auto 0.01 0.00 - 0.03 X10*3/uL [facility] Lymphocytes Absolute Auto 1.4 1.2 - 4.9 X10*3/uL [facility] Monocytes Absolute Auto 0.6 0.1 - 1.2 X10*3/uL [facility] Eosinophils Absolute Auto 0.0 0.0 - 0.4 X10*3/uL [facility] Basophils Absolute Auto 0.0 0.0 - 0.2 X10*3/uL [facility] NRBC Abs Auto 0.000 0.0 - 0.012 X10*3/uL [facility] 08/02/2022 12:1 7 AM EST 08/02/2022 12:19 AM EST us [facility] External Provider LAB BLO OD ORDERABLES Final Result [facility] [address] [place] [phone] * Culture, Urine, Routine (08/02/2022 12:00 AM EST) 08/02/2022 08/02/2022 7:3 1 AM EST Comment:UACC Narrative [facility] - 08/03/2022 9:19 AM EST Urine Culture No growth. Specimen Source: Urine clean catch us [facility] Exter nal Provider LAB MICROBIOLOGY - GENERAL ORDERABLES Final Result [facility] [address] [place] [address] [phone] documented in this encounter Visit Diagnoses Not on filedocumented in this encounter Care Teams Surveillance Specialist Relationship Specialty Start Date End Date Amber Quiroz MD [address] [place] [phone] PCP - General Family Medicine 07/03/18 Fred Parker RN [address] [place] [phone] Registered Nurse Family Medicine 04/16/25 Sherry Herbert 04/16/25 documented as of this encounter
--- OUTSIDE RECORDS SUMMARY | 2025-04-17 02:43 | XMS_ITS | Encounter Summary ---
Author Organization [employer] Address [address] [place] [address] 7 [place] [address] Care Team Providers Care House Fellow Name Role Phone Amber Quiroz MD Primary Care Provider [phone] Fred Parker RN Unavailable [phone] Sherry Herbert Unavailable Encounter Details Date Type Department Care Team ([facility] st Contact Info) Description 04/05/2023 Orders Only [facility] P[facility]S [address] [place], [place] [phone] Anabell Martinez LPN Social History Tobacco Use [...] on filedocumented in this encounter Care Teams House Fellow Relationship Specialty Start Date End Date Amber Quiroz MD [address] [place] [address] PCP - General Family Medicine 07/03/18 Fred Parker, RN [address] [place] [address] Registered Nurse Family Medicine 04/16/25 Sherry Herbert 04/16/25 documented as of this encounter
--- OUTSIDE RECORDS SUMMARY | 2025-04-17 02:43 | XMS_ITS | Clinical Summary ---
Author Organization [employer] Address [address] [place] [address] Care Team Providers Care Childcare Director Name Role Phone Amber Quiroz MD Primary Care Provider [phone] Fred Parker RN Unavailable [phone] Sherry Herbert Unavailable Allergies Active Allergy Reactions Criticality Noted Date [...] TODOS LOS D EN LA MA RICKY 04/09/20 23 Active clonazePAM (KlonoPIN) 0.5 MG tablet TAKE 1 TABLET BY MOUTH TWICE A DAY NEEDED FOR SEVERE ANXIETY 03/08/20 23 Active topiramate (Topamax) 25 MG tablet TOME BELINDA TABLETA DOS VECES AL D A 04/09/20 23 Active zolpidem (Ambien) 10 MG tablet TOME BELINDA TABLETA TODOS LOS D AL ACOSTARSE CUANDO SEA NECESARIO FOR INSOMNIA 04/09/20 23 Active naloxone (Narcan) 4 mg/0.1 mL nasal spray PLEASE SEE ATTACHED FOR DETAILED DIRECTIONS 12/25/19 24 Active potassium chloride ER (Micro-K) 10 MEQ ER capsule TOME BELINDA C PSULA TODOS LOS D POR 7 D 06/20/20 23 Active acetaminophen (Tylenol 8 Hour) 650 MG ER tabletIndications :Pain TAKE 1 TABLET BY MOUTH EVERY 8 HOURS NEEDED FOR PAIN OR FEVER 60 tablet 1 08/26/19 25 Active Advair Diskus 500-50 MCG/ACT aerosol powder INHALE 1 PUFF BY MOUTH TWICE DAILY 60 each 5 09/05/19 25 Active Melatonin 10 MG capsule TOME 1 C PSULA POR V A ORAL TODOS LOS D AL ACOSTARSE 08/20/19 25 Active mirtazapine (Remeron) 45 MG tablet TOME 1 TABLETA POR V A ORAL TODOS LOS D AL ACOSTARSE 08/20/19 25 Active gabapentin (Neurontin) 600 MG tablet TOME 1 TABLETA POR V A ORAL ELIZABETH VECES AL D A 09/03/19 25 Active ARIPiprazole (Abilify) 2 MG tablet Take 2 mg by mouth. 10/14/19 25 Active Blood Pressure Monitor [facility] [place] Check BP daily 1 each 11/13/19 25 Active tamsulosin (Flomax) 0.4 MG 24 hr capsule TAKE 1 CAPSULE BY MOUTH EVERY DAY FOR 14 DAYS. Active prazosin (Minipress) 2 MG capsule TOME 1 C PSULA POR V A ORAL TODOS LOS D AL ACOSTARSE 10/30/19 25 Active ondansetron (Zofran) 4 MG tabletIndications :Nausea TAKE 1 TABLET BY MOUTH EVERY 8 HOURS NEEDED FOR NAUSEA AND VOMITING 30 tablet 12/06/19 25 Active loratadine (Claritin) 10 MG tabletIndications :Allergic rhinitis, unspecified seasonality, unspecified trigger TAKE 1 TABLET BY MOUTH EVERY DAY 90 tablet 3 02/05/20 25 Active atorvastatin (Lipitor) 10 MG tablet TAKE 1 TABLET BY MOUTH EVERY DAY 90 tablet 1 03/17/20 25 Active amLODIPine (Norvasc) 10 MG tablet TAKE 1 TABLET BY MOUTH EVERY DAY 90 tablet 1 03/17/20 25 Active albuterol (Ventolin HFA) 108 (90 Base) MCG/ACT inhalerIndication s:Moderate persistent asthma without complication INHALE 2 PUFFS BY MOUTH EVERY 4 TO 6 HOURS NEEDED FOR DIFFICULTY BREATHING. DO NOT EXCEED 2 PUFFS FOUR TIMES DAILY OR 8 PUFFS IN 24 HOURS. 18 g 04/07/20 25 Active traMADol (Ultram) 50 MG tabletIndications :Flank pain,History of total knee replacement, unspecified laterality,Primar y osteoarthritis of left knee,Loin pain hematuria syndrome,Chronic back pain, unspecified back location, unspecified back pain laterality TAKE 1 TABLET BY MOUTH EVERY 8 HOURS NEEDED FOR SEVERE PAIN 10 tablet 04/07/20 25 Active albuterol (Ventolin HFA) 108 (90 Base) MCG/ACT inhalerIndication s:Moderate persistent asthma without complication INHALE 2 PUFFS BY MOUTH EVERY 4 TO 6 HOURS NEEDED FOR DIFFICULTY BREATHING DO NOT EXCEED 2 PUFFS FOUR TIMES DAILY (8 PUFFS IN 24 HOURS) 18 g 01/25/20 25 2024 Discontinued traMADol (Ultram) 50 MG tabletIndications :Flank pain,History of total knee replacement, unspecified laterality,Primar y osteoarthritis of left knee,Loin pain hematuria syndrome,Chronic back pain, unspecified back location, unspecified back pain laterality Take 1 tablet (50 mg) by mouth every 8 (eight) hours if needed for severe pain. 10 tablet 03/07/20 25 2024 Discontinued Active Problems Patient Care Coordination No te Formatting of this note migh t be different from the original. C3/CM Diane Pina RN Problem Noted Date Diagnosed Date Abdominal pain, chronic, generalized 04/01/2024 Flank pain 04/01/2024 Assessment & Plan (12/14/2024 5:58 PM EDT): Known history of nonobstructive kidney stone Follow-up with urology Patient has multiple ED visits due to flank pain, and has been receiving opioids. Previously we have discussed that she can take tramadol for short course for acute flank pain from kidney stone. We agreed 15 tablets of tramadol 50 mg per month. Patient was also referred to controlled substance treatment nurse for safe prescription. We discussed about our concern about her physical dependence which is now becoming addiction. Patient initially denied addiction. However, she expressed some interest in buprenorphine treatment for both pain and physical dependence. Patient states she is going to [place] tomorrow for about 1 week. Therefore, we agreed that she will be able to picker packer tramadol today, and after she returns from [place] we will discuss about buprenorphine. 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 Most recent CT scan was in October 2024, showing small bilateral renal calculi. - Seen by urologist, [facility] urology 10/08/24 - Pt states she has a follow up appointment tomorrow (? Pt might be going to [place] tomorrow as well). - Discussed about my concern about her pain mediation use, agreed to prescribe tramadol 15 tablets per month, for acute pain. - Pt was interested in suboxone for possible addiction treatment -We received a note later from her urologist's office that she is discharged from their practice due to 3 no-shows as of November 27, 2024. Assessment & Plan (11/17/2024 7:24 PM EDT): [...] of total knee arthroplasty 03/19/2018 Dyslipidemia 07/13/2016 Assessment & Plan (12/14/2024 5:52 PM EDT): - last lipid profile August 2024 - Current medication: Atorvastatin 10 mg nightly - Continue working on lifestyle modification and current medication Osteoarthritis of knee 07/13/2016 Assessment & Plan (12/02/2024 4:59 PM EDT): - Status Post right total knee replacement - Pt is currently having left knee pain, x-ray of left knee showed mild to moderate osteoarthritis - Referred to orthopedist on 11/12/24, waiting for appointment - Pt is currently taking tramadol and acetaminophen for pain. We discussed about taking suboxane for pain and addiction Essential hypertension 09/16/2015 Assessment & Plan (12/14/2024 5:50 PM EDT): -Goal BP < 130/80 per ACC/AHA guideline (Tx threshold > 140/90) -Continue Amlodipine 10 mg daily. (Prazosin for mood disorder). -Previously prescribed lisinopril 10 mg daily -Continue working on lifestyle modification. -Continue checking home BP -Follow up for BP check with our nurse. If home BP is persistently elevated (SBP > 130) or clinic SBP > 140, will add telmesartan 20 mg daily or valsartan 40 mg daily. Assessment & Plan (11/17/2024 7:27 PM EDT): [...] of lung 04/22/2013 05/04/2023 Asthma with COPD ([facility]) 10/22/2012 Lung mass 10/22/2012 05/04/2023 Anemia 06/05/2012 Assessment & Plan (11/17/2024 7:22 PM EDT): - Last CBC was normal Assessment & Plan (11/30/2023 8:31 AM EDT): - Labs ordered - Counseled on increasing consumption of iron rich foods Gastroesophageal reflux disease 06/05/2012 Impaired fasting glucose 06/05/2012 Assessment & Plan (12/14/2024 5:53 PM EDT): - most recent A1C 5.6% in August 2024 - Recently patient had random blood glucose of 300, which would meet the criteria of diabetes diagnosis - Will recheck A1c - lifestyle modification Assessment & Plan (11/17/2024 7:25 PM EDT): [...] Encounters Date Type Department Care Team Description 04/16/2025 Patient Outreach [facility] [address] [place] [phone] Amber Quiroz MD Care Coordination ([facility]3 [facility] Sherry Herbert telephone call outreach ) 04/16/2025 Patient Outreach [facility] [address] [place] [address] Amber Quiroz MD Care Coordination (C3CM- chart review) 04/16/2025 Patient Outreach [facility] [address] [place] [phone] Amber Quiroz MD 04/11/2025 Telephone [facility] [address] [place] [address] Rachelle Lucero RN 04/04/2025 Refill [facility] [address] [place] [address] Amber Quiroz MD Moderate persistent asthma without complication; Flank pain; History of total knee replacement, unspecified laterality; Primary osteoarthritis of left knee; Loin pain hematuria syndrome; Chronic back pain, unspecified back location, unspecified back pain laterality 03/16/2025 Refill [facility] [address] [place] [phone] Amber Quiroz MD 03/11/2025 Patient Outreach [address] [address] Amber Quiroz MD Care Coordination ([facility] f/u) 03/11/[address] [address] Amber Quiroz MD Care Management (C3- f/u call lv) 03/08/2025 Orders Only GENERIC EXTERNAL DATA DEPARTMENT Provider, Generic External Data 03/07/2025 Orders Only [address] [address] Amber Quiroz MD Flank pain (Primary Dx); History of total knee replacement, unspecified laterality; Primary osteoarthritis of left knee; Loin pain hematuria syndrome; Chronic back pain, unspecified back location, unspecified back pain laterality 03/07/2025 Travel 03/07/2025 Telephone [facility] [address] [place] [address] Rachelle Lucero, [employer] 03/06/2025 Refill [facility] [address] [place] [address] Amber Quiroz MD Flank pain 02/24/[address] [address] Amber Quiroz MD Care Management (C3CM- f/u call lvm) 02/12/[address] [address] Amber Quiroz MD No Show (Pt no show sick onsite/) 02/11/[address] [address] Cheryl Larkin, [employer] Follow-up 02/10/2025 Refill [facility] [address] [place] [address] Rachelle Lucero RN Flank pain (Primary Dx) 02/10/2025 Telephone [facility] [address] [place] [address] Amber Quiroz MD Med Refill 02/03/2025 Refill [facility] [address] [place] [phone] Amber Quiroz MD Allergic rhinitis, unspecified seasonality, unspecified trigger 02/02/2025 Orders Only GENERIC EXTERNAL DATA DEPARTMENT Provider, Generic External Data 01/24/2025 Patient Outreach [address] [address] Amber Quiroz MD Care Coordination ([facility] f/u) 01/24/[address] [address] Amber Quiroz MD Care Management ([facility]- f/u call) 01/23/2025 Refill [facility] [address], [place] [phone] Amber Quiroz MD Moderate persistent asthma without complication 01/17/2025 Orders Only [facility] [address] [place] [phone] Amber Quiroz MD Nephrolithiasis (Primary Dx); Loin pain hematuria syndrome; Recurrent urinary tract infection 01/17/[address] [address] Amber Quiroz MD Care Management (C3- f/u call) from Last 3 Months Immunizations Immunization Administration [...] Former Cigarettes Tobacco Cessation:Counseling Given: Not Answered Depression Answer Date Recorded Patient Health Questionnaire-9 [...] Sign Reading Time Taken Comments Blood Pressure 128/82 12/25/2024 10:27 AM EDT Pulse 80 12/25/2024 10:27 AM EDT Temperature 36.5 C (97.7 F) 12/25/2024 10:27 AM EDT Respiratory Rate 20 12/25/2024 10:27 AM EDT Oxygen Saturation 98% 12/25/2024 10:27 AM EDT Inhaled Oxygen Concentration - - Weight 62.7 kg (138 lb 3.2 oz) 12/25/2024 10:27 AM EDT Height 154.9 cm (5' 1 ) 12/25/2024 10:27 AM EDT Body Mass Index 26.11 12/25/2024 10:27 AM EDT Plan of Treatment Health Maintenance Due Date Last Done Comments CT Colonography 1965 Dental Prophylaxis 1965 FIT DNA/Cologuard 1964 FIT 1965 FOBT 1965 HIV Screening 1965 Sigmoidoscopy 1965 Hepatitis C Screening 1982 Mammogram 2004 Dental X-Ray: Bitewings 11/24/2012 11/24/2011 Colonoscopy 07/31/2021 Colorectal Cancer Screening 07/31/2021 Colposcopy 07/31/2021 Zoster Vaccines (2 of 2) 05/29/2023 04/03/2023 Pap Smear 07/30/2024 07/30/2021 RSV Patients and Patients Aged 60 years or older (1 - Risk 60-74 years 1-dose series) 2024 Influenza Vaccine (#1) 2025 , 03/22/2023, 04/02/2021, Additional history exists Dental Oral Exam 04/27/2025 10/25/2024 Depression Monitoring 06/03/2025 12/02/2024, 025 Alcohol/Substance Use Screening 09/03/2025 09/03/2024 Disability Screening 11/12/2025 11/12/2024 SDOH Screening 11/12/2025 11/12/2024 Tobacco Screening 12/14/2025 12/14/2024 Cervical Cancer Screening 07/30/2026 HPV/Cotest 07/30/2026 07/30/2021, 01/28/2019 Dental X-Ray: Full Mouth 10/27/2027 025, 07/09/2012, 11/24/2011 DTaP/Tdap/Td Vaccines (5 - Td or Tdap) 03/15/2029 03/15/2019, 12/21/2012, 11/05/2012, Additional history exists Lipid Panel 09/03/2029 09/03/2024 Hepatitis B Vaccines Completed 11/29/2023, 04/18/2023, 03/22/2023 Pneumococcal Vaccine: 50+ Years Completed 09/03/2024, 04/29/2017, [...] URINALYSIS, COMPLETE, WITH REFLEX TO CULTURE Routine 03/08/2025 1:[address] ABDOMEN PELVIS WO CONTRAST Routine 03/08/2025 1:06 PM EDT COMPREHENSIVE METABOLIC PANEL Routine 02/02/2025 4:01 PM EDT CBC WITH AUTO DIFFERENTIAL Routine 02/02/2025 4:01 PM EDT PANORAMIC RADIOGRAPHIC IMAGE Routine 10/25/2024 10:00 AM EDT PERIODIC ORAL EVALUATION - ESTABLISHED PATIENT Routine 10/25/2024 10:00 AM EDT LIPID PANEL WITH REFLEX TO DIRECT LDL Routine 09/03/2024 4:26 PM EST Dyslipidemia THINPREP IMAGING PAP AND HPV MRNA E6/E7 WITH REFLEX TO HPV 16,18/45 Routine 07/30/2021 10:17 AM EST INTRAORAL - COMPLETE SERIES OF RADIOGRAPHIC IMAGES Routine 11/24/2011 12:00 AM EDT from Last 3 Months or Most Recently Relevant to Health Maintenance Results * (ABNORMAL) Urinalysis, Complete, with Reflex to Culture (03/08/2025 1:53 PM EDT) Color Urine Chauncey(A) [facility] Appearance Urine Clear [facility] PH 5.0 5.0 - 9.0 [facility] Glucose Urine UA >=1000(A) Negative mg/dL [facility] Urine Blood Negative Negative [facility] Specific Hillister - Urine 1.025 1.005 - 1.025 [facility] Urine Protein Negative Neg-Trace mg/dL [facility] Urine Ketones Negative Negative mg/dL [facility] Nitrite Urine Negative Negative [facility] Leukocyte Esterase Urine Negative Negative [facility] RBC Urine 0-2 0 - 2 /HPF [facility] Urine WBC 0-5 0 - 5 /HPF [facility] Urine Squamous Epithelial Cell 0-2 0 - 2 /HPF [facility] Urine Bacteria 4+ None Seen [facility] Hyaline Casts, Urine 0-2 0 - 2 /LPF [facility] Urine Yeast Present [facility] 03/08/2025 1:53 PM EDT 03/08/2025 1:56 PM EDT Narrative [facility] - 03/08/2025 2:26 PM EDT [id number], Clean Catch us Generic External Data Provider LAB URINE ORDERAB LES Final Result Performing Organization Address City/State/[facility] Co de Phone Number [facility] [address] [place] [phone] * CT Abdomen Pelvis w/o Contrast (03/08/2025 1:06 PM EDT) Anatomical Region Laterality Modality Body, Pelvis, Abdomen Computed T omography 03/08/2025 1:06 PM EDT Narrative 03/08/2025 1:08 PM EDT [address] [address] [address] Scan Report Signed Patient: John Marquez MR#: [id number] 760 : 1965 Acct:[id number] Age/Sex: 59 / F ADM Date: 03/08/25 Loc: .ED Attending Dr: Ordering Physician: Kaia Hamilton Date of Service: 03/08/25 Procedure(s): CT abdomen pelvis wo IV con Accession Number(s): [id number] cc: Kaia Hamilton; Amber Quiroz MD Report Number: [id number]: Total DLP = 449.00 mGy-cm Reason for Exam: abbd pain, flank pain CLINICAL HISTORY: abbd pain, flank pain CT abdomen and pelvis without contrast Comparison: CT/SC/SR - CT ABDOMEN PELVIS WO IV CON - 11/11/24 11:28 EDT Findings: No consolidation or effusion. Borderline dilatation of the left renal collecting system. Mild left-sided uroepithelial thickening. Multiple tiny nonobstructive calculi within the bilateral kidneys. 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 No ureteral calculus. The liver, spleen, pancreas and adrenal glands are unremarkable. There are no calcified gallstones. No bowel obstruction, pneumoperitoneum, or pneumatosis. Tiny umbilical hernia containing fat. There is moderate distention of the urinary bladder. Unremarkable uterus and bilateral adnexa. Normal appendix. The bones are intact. IMPRESSION: 1. Borderline dilatation of the left renal collecting system with mild left-sided uroepithelial thickening. Consider pyelonephritis or recently passed stone. 2. There are tiny nonobstructive calculi within the bilateral kidneys. This document has been electronically signed by: Xuan Paredes MD on 03/08/2025 13:06:41 Dictated By: Xuan Paredes MD Signed By: <Electronically signed by Xuan Paredes MD in OV> 03/08/25 1307 DD/ 1306 TD/TT: 03/08/25 1306 Medical Insurance Clerk: Procedure Note Donotuseinterpreter, Image - 03/08/[address] [place] [id number] [address] Scan Report Signed Patient: Heidi Marquez#: [id number] 760 : 1965Acct:[id number] Age/Sex: 59 / FADM Date: 03/08/25 Loc: HO.ED Attending Dr: Ordering Physician: Kaia Hamilton Date of Service: 03/08/25 Procedure(s): CT abdomen pelvis wo IV con Accession Number(s): [id number] cc: Kaia Hamilton; Amber Quiroz MD Report Number: [id number]: Total DLP = 449.00 mGy-cm Reason for Exam: abbd pain, flank pain CLINICAL HISTORY: abbd pain, flank pain CT abdomen and pelvis without contrast Comparison: CT/SC/SR - CT ABDOMEN PELVIS WO IV CON - 11/11/24 11:28 EDT Findings: No consolidation or effusion. Borderline dilatation of the left renal collecting system. Mild left-sided uroepithelial thickening. Multiple tiny nonobstructive calculi within the bilateral kidneys. 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 No ureteral calculus. The liver, spleen, pancreas and adrenal glands are unremarkable. There are no calcified gallstones. No bowel obstruction, pneumoperitoneum, or pneumatosis. Tiny umbilical hernia containing fat. There is moderate distention of the urinary bladder. Unremarkable uterus and bilateral adnexa. Normal appendix. The bones are intact. IMPRESSION: 1. Borderline dilatation of the left renal collecting system with mild left-sided uroepithelial thickening. Consider pyelonephritis or recently passed stone. 2. There are tiny nonobstructive calculi within the bilateral kidneys. This document has been electronically signed by: Xuan Paredes MD on 03/08/2025 13:06:41 Dictated By: Xuan Paredes MD Signed By: <Electronically signed by Xuan Paredes MD in OV> 03/08/25 1307 DD/ 1306 TD/TT: 03/08/25 1306 Medical Insurance Clerk: [facility] External Provider IMG CT PROCEDURES Final Result * (ABNORMAL) CBC auto differential (02/02/2025 4:01 PM EDT) White Blood Count 4.0(L) 4.8 - 10.8 X10*3/uL [facility] Red Blood Count 3.89(L) 4.20 - 5.50 X10*6/uL [facility] Hemoglobin 10.4(L) 12.0 - 16.0 g/dl [facility] Hematocrit 31.3(L) 37.0 - 47.0 % [facility] Mean Corpuscular Volume 80.5 80.0 - 98.0 fL [facility] Mean Corpuscular Hemoglobin 26.7(L) 27.0 - 33.0 pg [facility] Mean Corpuscular HGB Conc 33.2 31.0 - 35.0 g/dl [facility] Red Cell Distribution Width 14.6 11.0 - 16.0 % [facility] Platelet Count 231 160 - 400 X10*3/uL [facility] Mean Platelet Volume 9.5 9.4 - 12.3 fL [facility] Neutrophils Percent Auto 41.8(L) 45 - 73 % [facility] Imm Gran Pct Auto 0.0 0.0 - 0.4 % [facility] Lymphocytes Percent Auto 41.8(H) 20 - 40 % [facility] Monocytes Percent Auto 13.4(H) 2 - 11 % [facility] Eosinophils Percent Auto 2.5 0 - 4 % [facility] Basophils Percent Auto 0.5 0 - 2 % [facility] NRBC Pct Auto 0.0 0.0 - 0.2 /100WBC [facility] Neutrophils Absolute Auto 1.7(L) 2.0 - 8.3 x10*3/uL [facility] Imm Gran Abs Auto 0.00 0.00 - 0.03 X10*3/uL [facility] Lymphocytes Absolute Auto 1.7 1.2 - 4.9 X10*3/uL [facility] Monocytes Absolute Auto 0.5 0.1 - 1.2 X10*3/uL [facility] Eosinophils Absolute Auto 0.1 0.0 - 0.4 X10*3/uL [facility] Basophils Absolute Auto 0.0 0.0 - 0.2 X10*3/uL [facility] NRBC Abs Auto 0.000 0.0 - 0.012 X10*3/uL [facility] 02/02/2025 4:01 PM EDT 02/02/2025 4:05 PM EDT us Generic External Data Provider LAB BLOOD ORDERAB LES Final Result [facility] [address] [place] [phone] * (ABNORMAL) Comprehensive Metabolic Panel (02/02/2025 4:01 PM EDT) Sodium 142 135 - 145 mmol/L [facility] Potassium 3.5 3.3 - 5.1 mmol/L [facility] Chloride 106 96 - 108 mmol/L [facility] Carbon Dioxide 25 22 - 29 mmol/L [facility] Anion Gap 15 12 - 20 [facility] Urea Nitrogen (BUN) 11 9 - 16 mg/dL [facility] Creatinine, Serum 0.65 0.5 - 1.4 mg/dL [facility] Creatinine Clr Calc Pharmacy 78.5 [facility] Comment:Provided height and weight: 154.94 cm,63.503 kg.eGFR (calculated from the MDRD study equation) and eCrCl(calculated from the Cockcroft-Gault equation) are based ondifferent parameters and may not yield comparable results.If eCrCl result is absurd, please check patient'sheight/weight. Estimated Glomerular Filt Rate >60 [facility] Comment:Chronic Kidney Disea se: Estimated GFR < 60 mL/min/1.50i4Kxvpty Kidney Disease: Estimated GFR < 15 mL/min/1.73m2 Glucose 113 60 - 115 mg/dL [facility] Calcium 8.9 8.4 - 10.2 mg/dL [facility] Bilirubin, Total 0.7 0.0 - 1.0 mg/dL [facility] Aspartate Amino Transferase 45(H) 5 - 31 U/L [facility] Alanine Aminotransferase 34(H) 0 - 31 U/L [facility] Total Protein 7.0 6.5 - 8.0 g/dL [facility] Albumin Level 4.2 3.5 - 5.0 g/dL [facility] Alkaline Phosphatase 93 39 - 117 U/L [facility] 02/02/2025 4:01 PM EDT 02/02/2025 4:05 PM EDT us Generic External Data Provider LAB BLOOD ORDERAB LES Final Result [facility] [address] [place] [phone] * (ABNORMAL) Lipid Panel with Reflex to Direct LDL (09/03/2024 4:26 PM EST) Triglycerides 112 <150 mg/dL [facility] Comment:Desirable Triglyceri de: less than 150 mg/dLBorderline High Triglyceride 150-199 mg/dLHigh Triglyceride: 200-499 mg/dLVery High Triglyceride: greater than or equal to 5OO mg/dL Cholesterol 183 <200 mg/dL [facility] Comment:Desirable Cholestero l: less than 200 mg/dLBorderline High Cholesterol: 200-239 mg/dLHigh Cholesterol: greater than 239 mg/dL LDL Cholesterol Calculated 112(H) <100 mg/dL [facility] Comment:Desirable LDL: less than 100 mg/dLNear Optimal/Above Optimal LDL: 110- 129 mg/dLBorderline High LDL: 130-159 mg/dLHigh LDL: 160-189 mg/dLVery High LDL: greater than or equal to 190 mg/dL HDL Cholesterol 49 >40 mg/dL [facility] Comment:Desirable HDL: great er than 40 mg/dL Note: This HDL assay may give artificially low results in patients with liver disease. Blood 09/03/2024 4:26 PM EST 09/03/2024 6:14 PM EST us Amber Quiroz MD LAB BLOOD ORDERABLES Final Resul t [facility] [address] [place] [phone] * (ABNORMAL) THINPREP TIS PAP AND HPV mRNA E6/E7 WITH REFLEX TO HPV 16,18/45 (07/30/2021 10:17 AM EST) Clinical Information: PM BLEEDING [facility] COMMENT SEE COMMENT [facility] Comment: EXPLANATORY NOTE: The Pap is a screening test for cervical cancer. It is not a diagnostic test and is subject to false negative and false positive results. It is most reliable when a satisfactory sample, regularly obtained, is submitted with relevant clinical findings and history, and when the Pap result is evaluated along with historic and current clinical information. COMMENT: This Pap test has been evaluated with computer assisted technology. [facility] Laser Operator: SEE COMMENT [facility] Comment: CHRISTIE CT(ASCP) CT screening location: [address] [address] General Categorization: EPITHELIAL CELL ABNORMALITY(A ) [facility] HPV nRNA E6/E7 Not Detected Not Detected [facility] Comment: Methodology: Glycerine Plant Operator-Mediated Amplification This assay detects E6/E7 viral messenger RNA (mRNA) from 14 high-risk HPV types (16,18,31,33,35,39,45,51,52,56,58,59,66,68). The analytical performance characteristics of this assay have been determined by [employer]. The modifications have not been cleared or approved by the FDA. This assay has been validated pursuant to the CLIA regulations and is used for clinical purposes. For additional information, please refer to http://education.[employer]/faq/YSZ018q0 (This link if provided for information/ educational purposes only.) Infection Shift in vaginal geovanny suggestive of bacterial vaginosis. [facility] Interpretation/Res ult: SEE COMMENT([facility]) [facility] Comment: Atypical Squamous Cells of Undetermined Significance (ASC-US) Rare cells are approaching low grade dysplasia. LMP: NONE GIVEN [facility] PATHOLOGIST: SEE COMMENT [facility] Comment: Jennifer Branch M.D., Board Certified in Anatomic and Clinical Pathology (electronic signature) Consulting Pathologist [facility] [phone] Prev. BX: NONE [facility]IVEN [facility] Prev. PAP: NONE [facility]IVEN [facility] SOURCE: None given [facility] Statement Of Adequacy: SEE COMMENT [facility] Comment: Satisfactory for evaluation. Endocervical/transformation zone component present. 07/30/2021 10:1 7 AM EST us Saleem Maier MD LAB PATHOLOGY ORDERABLES Final R esult [facility] [address] from Last 3 Months or Most Recently Relevant to Health Maintenance Insurance [employer] [facility] MEDICA[facility] STAND ADULT Care Teams Childcare Director Relationship Specialty Start Date End Date Amber Quiroz MD [address] [place] [phone] PCP - General Family Medicine 07/03/18 Fred Parker, DOROTA [address] [place] [address] Registered Nurse Family Medicine 04/16/25 Sherry Herbert 04/16/25
--- OUTSIDE RECORDS SUMMARY | 2025-04-17 02:43 | XMS_ITS | Encounter Summary ---
Author Organization [employer] Address [address] [facility] 7t [place] [address] Care Team Providers Care Oiling Machine Operator Name Role Phone Amber Quiroz MD Primary Care Provider [phone] Fred Parker RN Unavailable [phone] Sherry Herbert Unavailable Encounter Details Date Type Department Care Team (Late st Contact Info) Description 03/07/2025 Orders Only [facility] [address] [place], [place] [phone] Amber Quiroz MD [address] [place], [place] [phone] Flank pain (Primary Dx); History of total knee replacement, unspecified laterality; Primary osteoarthritis of left knee; Loin pain hematuria syndrome; Chronic back pain, unspecified back location, unspecified back pain laterality Social History Tobacco Use Types Packs/Day Years [...] Comments CT ABDOMEN PELVIS WO CONTRAST Routine 03/08/2025 1:06 PM EDT documented in this encounter Results * CT Abdomen Pelvis w/o Contrast (03/08/2025 1:06 PM EDT) Anatomical Region Laterality Modality Body, Pelvis, Abdomen Computed T omography 03/08/2025 1:06 PM EDT Narrative 03/08/2025 1:08 PM EDT [address] [address] [address] Scan Report Signed Patient: John Marquez MR#: [id number] [id number] : 1965 Acct:[id number] Age/Sex: 59 / F ADM Date: 03/08/25 Loc: HO.ED Attending Dr: Ordering Physician: Kaia Hamilton Date of Service: 03/08/25 Procedure(s): CT abdomen pelvis wo IV con Accession Number(s): [id number] cc: Kaia Hamilton; Amber Quiroz MD Report Number: [id number]: Total DLP = 449.00 mGy-cm Reason for Exam: abbd pain, flank pain CLINICAL HISTORY: abbd pain, flank pain CT abdomen and pelvis without contrast Comparison: CT/[place] - CT ABDOMEN PELVIS WO IV CON [...] 03/08/25 1307 DD/ 1306 TD/TT: 03/08/25 1306 Welder And Fitter: Procedure Note Donotuseinterpreter, Image - 03/08/[address] [place] [address] [address] Scan Report Signed Patient: John MarquezMR#: [id number] : 1965Acct:[id number] Age/Sex: 59 / FADM Date: 03/08/25 Loc: .ED Attending Dr: Ordering Physician: Kaia Hamilton Date of Service: 03/08/25 Procedure(s): CT abdomen pelvis wo IV con Accession Number(s): [id number] cc: aKia Hamilton; Amber Quiroz MD Report Number: [id number]: Total DLP = 449.00 mGy-cm Reason for Exam: abbd pain, flank pain CLINICAL HISTORY: abbd pain, flank pain CT abdomen and pelvis without contrast Comparison: CT/[place] - CT ABDOMEN PELVIS WO IV CON [...] 03/08/25 1307 DD/ 1306 TD/TT: 03/08/25 1306 Welder And Fitter: [facility] External Provider IMG CT PROCEDURES Final Result documented in this encounter Visit Diagnoses Diagnosis Flank pain- Primary Abdominal pain, unspecified site History of total knee replacement, unspecified laterality Primary osteoarthritis of left knee Loin pain hematuria syndrome Chronic back pain, unspecified back location, unspecified back pain laterality documented in this encounter Additional Health Concerns Assessment Noted Time PHQ-9 Depression Total Score: 9 12/03/19 25 4:14 PM EDT documented as of this encounter Care Teams Oiling Machine Operator Relationship Specialty Start Date End Date Amber Quiroz MD [address] [place] [address] PCP - General Family Medicine 07/03/18 Fred Parker RN [address] [place] [address] TESHA Call [phone] Registered Nurse Family Medicine 04/16/25 Sherry Herbert 04/16/25 documented as of this encounter
--- OUTSIDE RECORDS SUMMARY | 2025-04-17 02:43 | XMS_ITS | Encounter Summary ---
Author Organization [employer] Address 75 [facility] 7t [place] [address] Care Team Providers Care Mop Man Name Role Phone Amber Quiroz MD Primary Care Provider [phone] Fred Parker RN Unavailable [phone] Sherry Herbert Unavailable Reason for Visit * Reason Onset Date Comments Med Refill 01/10/2024 Encounter Details Date Type Department Care Team (Late st Contact Info) Description 01/10/2024 Telephone [facility] MEDICINE [address] [place] [address] Amber Quiroz MD [address] [place], [place] [phone] Med Refill Social History Tobacco Use Types [...] immediate release tablet To be sent to: [facility] - [place], [place] - [address] [place] [address] documented in this encounter Plan of Treatment Not on file documented as of this encounter Visit Diagnoses Not on filedocumented in this encounter Care Teams Mop Man Relationship Specialty Start Date End Date Amber Quiroz MD [address] [place] [address] PCP - General Family Medicine 07/03/18 Fred Parker RN [address] [place] [address] Registered Nurse Family Medicine 04/16/25 Sherry Herbert 04/16/25 documented as of this encounter
--- OUTSIDE RECORDS SUMMARY | 2025-04-17 02:43 | XMS_ITS | Encounter Summary ---
Author Organization [employer] Address [address] [facility] 7 [place] [address] Care Team Providers Care Customer Advisor Name Role Phone Amber Quiroz MD Primary Care Provider [phone] Fred Parker RN Unavailable [phone] Sherry Herbert Unavailable Reason for Visit * Reason Comments Med Refill Encounter Details Date Type Department Care Team (Late st Contact Info) Description 12/20/2024 Refill [facility] MEDICINE 230 [place], [place] [phone] Amber Quiroz MD [address] [place], [place] [phone] Nephrolithiasis Social History Tobacco Use Types Packs/Day [...] Calculus of kidney documented in this encounter Additional Health Concerns Assessment Noted Time PHQ-9 Depression Total Score: 9 12/03/19 25 4:14 PM EDT documented as of this encounter Care Teams Customer Advisor Relationship Specialty Start Date End Date Amber Quiroz MD [address] [place] [address] PCP - General Family Medicine 07/03/18 Fred Parker, RN [address] [place] [address] Registered Nurse Family Medicine 04/16/25 Sherry Herbert 04/16/25 documented as of this encounter
--- OUTSIDE RECORDS SUMMARY | 2025-04-17 02:43 | XMS_ITS | Encounter Summary ---
Author Organization [employer] Address 75 [facility] 7t [place] [address] Care Team Providers Care Gas Engineer Name Role Phone Amber Quiroz MD Primary Care Provider [phone] Fred Parker RN Unavailable [phone] Sherry Herbert Unavailable Reason for Visit * Reason Onset Date Comments Med Refill 06/21/2024 Encounter Details Date Type Department Care Team (Late st Contact Info) Description 06/21/2024 Telephone [facility] MEDICINE 230 [place] [address] Amber Quiroz MD [address] [place], [place] [phone] Med Refill Social History Tobacco Use Types [...] extra strength with no relief. Please advise. BLOOD TESTER checked 06/21/24. Last refill of Oxycodone 5mg 11/30/23 qty 12. * Telephone Encounter - Gemma Oliveira - 06/21/2024 10:12 AM EST TC from pt requesting medication refill. Medications needing refill : oxyCODONE (Oxy-IR) 5 MG immediate release capsule To be sent to: [facility] - [place] - [address] [facility] documented in this encounter Plan of Treatment Not on file documented as of this encounter Visit Diagnoses Not on filedocumented in this encounter Care Teams Gas Engineer Relationship Specialty Start Date End Date Amber Quiroz MD [address] [place] [phone] PCP - General Family Medicine 07/03/18 Fred Parker, DOROTA [address] [place] [address] Registered Nurse Family Medicine 04/16/25 Sherry Herbert 04/16/25 documented as of this encounter
--- OUTSIDE RECORDS SUMMARY | 2025-04-17 02:43 | XMS_ITS | Encounter Summary ---
Author Organization [employer] Address [address] [facility] [address] 7t [place] [address] Care Team Providers Care Window Shade Cutter Name Role Phone Amber Quiroz MD Primary Care Provider [phone] Fred Parker RN Unavailable [phone] Sherry Herbert Unavailable Encounter Details Date Type Department Care Team (Late st Contact Info) Description 12/12/2023 Orders Only [facility] MEDICINE [address] [place], [place] [phone] Amber Quiroz MD [address] [place] [address] Nephrolithiasis (Primary Dx) Social History Tobacco Use [...] kidney documented in this encounter Care Teams Window Shade Cutter Relationship Specialty Start Date End Date Amber Quiroz MD [address] [place] [address] PCP - General Family Medicine 07/03/18 Fred Parker, DOROTA [address] [place] [phone] Registered Nurse Family Medicine 04/16/25 Sherry Herbert 04/16/25 documented as of this encounter
--- OUTSIDE RECORDS SUMMARY | 2025-04-17 02:43 | XMS_ITS | Encounter Summary ---
Author Organization [employer] Address 75 [facility] 7 [place] [address] Care Team Providers Care Cable Television Installer Name Role Phone Amber Quiroz MD Primary Care Provider Fred Parker RN Unavailable [phone] Sherry Herbert Unavailable Encounter Details Date Type Department Care Team (Late st Contact Info) Description 11/16/2022 Abstract [facility] MEDICINE 230 [place], [place] [phone] Amber Quiroz MD [address] [place], [place] [phone] Social History Tobacco Use Types Packs/Day Years [...] on filedocumented in this encounter Care Teams Cable Television Installer Relationship Specialty Start Date End Date Amber Quiroz MD [address] [place], [place] [phone] PCP - General Family Medicine 07/03/18 Fred Parker, DOROTA [address] [place] [address] TESHA Call [phone] Registered Nurse Family Medicine 04/16/25 Sherry Herbert 04/16/25 documented as of this encounter
--- OUTSIDE RECORDS SUMMARY | 2025-04-17 02:43 | XMS_ITS | Encounter Summary ---
Author Organization [employer] Address [address] [facility] 7t [place] [address] Care Team Providers Care Materials Tech Name Role Phone Amber Quiroz MD Primary Care Provider Fred Parker RN Unavailable [phone] Sherry Herbert Unavailable Encounter Details Date Type Department Care Team (Late st Contact Info) Description 03/22/2023 Orders Only [facility] MEDICINE [address] [place] [phone] Amber Quiroz MD [address] [place], [place] [phone] ASCUS of cervix with negative high risk [...] dysplasia documented in this encounter Care Teams Materials Tech Relationship Specialty Start Date End Date Amber Quiroz MD [address] [place] [address] [phone] PCP - General Family Medicine 07/03/18 Fred Parker, DOROTA [address] [place] [address] Registered Nurse Family Medicine 04/16/25 Sherry Herbert 04/16/25 documented as of this encounter
--- NOTE | 2025-04-17 03:02 | ED.FEMALEGU ---
HPI - Female Genitourinary General Chief complaint: Urogenital-Female Stated complaint: R sided flank pain Time Seen by Provider: 04/17/25 03:02 Source: patient and EMS Mode of arrival: EMS Limitations: no limitations History of Present Illness ED Provider: HPI Narrative: Patient reports history of recurrent renal colic, presenting with right-sided flank pain radiating to the abdomen started 3 days ago yesterday went to [facility] because the waiting room was too busy. Intermittent hematuria reported. Related Data Home Medications ?Medication ?Instructions ?Recorded ?Confirmed albuterol sulfate 90 mcg/actuation 2 puff PO Q4-6H PRN dyspnea 11/26/20 11/26/20 aerosol inhaler (ProAir HFA) amlodipine 10 mg tablet 1 tab PO DAILY 11/26/20 11/26/20 ascorbic acid (vitamin C) 250 mg 1 tab PO BID 11/26/20 11/26/20 tablet atorvastatin 10 mg tablet 1 tab PO DAILY 11/26/20 11/26/20 clonidine HCl 0.2 mg tablet 1 tab PO BID PRN panic attack 11/26/20 11/26/20 cyanocobalamin (vitamin B-12) 500 1 tab PO DAILY 11/26/20 11/26/20 mcg tablet fluoxetine 20 mg capsule 3 cap PO QAM 11/26/20 11/26/20 gabapentin 100 mg capsule 1 cap PO TID PRN anxiety 11/26/20 11/26/20 gabapentin 400 mg capsule 1 cap PO BEDTIME 11/26/20 11/26/20 loratadine 10 mg tablet 1 tab PO DAILY 11/26/20 11/26/20 mirtazapine 30 mg tablet 1 tab PO BEDTIME 11/26/20 11/26/20 polyvinyl alcohol 1.4 % eye drops 1 drp ophthalmic (eye) TID 11/26/20 11/26/20 (Artificial Tears (polyvinyl alcohol)) quetiapine 25 mg tablet 1 tab PO BID PRN anxiety 11/26/20 11/26/20 topiramate 25 mg tablet 1 tab PO BID 11/26/20 11/26/20 zolpidem 10 mg tablet 1 tab PO BEDTIME PRN insomnia 11/26/20 11/26/20 Previous Rx's ?Medication ?Instructions ?Recorded tramadol 50 mg tablet 50 mg PO Q8H PRN pain #3 tabs 11/26/20 sennosides 8.6 mg tablet (senna) 8.6 mg PO BEDTIME #14 tabs 07/21/21 docusate sodium 100 mg capsule 100 mg PO BID PRN Constipation #14 11/23/21 (Colace) caps dicyclomine 10 mg capsule 10 mg PO BID #14 caps 08/14/24 oxycodone 5 mg tablet 5 mg PO Q8H PRN severe pain (scale 10/17/24 score 7-10) #9 tabs tamsulosin 0.4 mg capsule (Flomax) 0.4 mg PO BEDTIME #14 caps 10/17/24 acetaminophen 500 mg capsule 1,000 mg (2 x 500 mg) PO Q8H PRN 11/19/24 fever or pain #14 caps ondansetron 4 mg disintegrating 4 mg PO Q6H PRN nausea and 11/19/24 tablet vomiting #10 tabs phenazopyridine 200 mg tablet 200 mg PO TID PRN Dysuria 6 doses 11/19/24 #6 tabs acetaminophen 325 mg tablet 650 mg (2 x 325 mg) PO Q6H PRN 12/20/24 fever or pain #20 tabs cyclobenzaprine 10 mg tablet 10 mg PO TID PRN muscle spasm #20 12/20/24 tabs acetaminophen 325 mg tablet 650 mg (2 x 325 mg) PO Q6H PRN 03/08/25 (Tylenol) fever or pain #30 tabs cefuroxime axetil 250 mg tablet 250 mg PO BID 7 days #14 tabs 03/08/25 Allergies Allergy/AdvReac Type Severity Reaction Status Date / Time aspirin (ASA) Allergy Intermediate RASH, Verified 04/17/25 02:19 nausea and vomiting ibuprofen (IBUPROFEN) Allergy Intermediate RASH Verified 04/17/25 02:19 nicotine Allergy Intermediate RASH FROM Verified 04/17/25 02:19 NICOTINE PATCH, nausea and vomiting ketorolac (From TORADOL) Allergy Mild RAPID HR Verified 04/17/25 02:19 AND HIVES haloperidol (From Haldol) Allergy Anaphylaxis Verified 04/17/25 02:19 metoclopramide (From Reglan) Allergy Unknown Verified 04/17/25 02:19 Review of Systems Constitutional: Constitutional: Reports as per [facility] Past Medical History Medical History Drug-seeking behavior delivery delivered HTN (hypertension) Anemia Hypercholesteremia DVT (deep venous thrombosis) Kidney stones Surgical History Total knee replacement status Social History Social History Alcohol intake: never Patient Tobacco Use Status: Current everyday Tobacco user Smoked in Last 30 Days: No Use of substances other than those prescribed or required for medical reasons: No Substance Use Type: Prescription Drugs Advance Directives: No Advance Directives Information Provided: Yes Patient : No Physical Exam Exam: Exam: General: ?Appears of stated age ? ?PERRLA, EOMI, MMM, ? Neck: Supple, no LAD ? ?CV: RRR, no obvious murmurs appreciated ? ?Resp: ?No wheezing rales rhonchi no stridor moving air well ? Abd: ?Bowel sounds are present, no tenderness no rebound no rigidity, no CVA tenderness ? ?MSK: FROM, strength 5/5 all extremities ? Skin: Warm, dry, intact, ? ?Neuro: ?Alert and oriented x3, moving upper and lower extremities symmetrically, no obvious facial asymmetry noted, cranial nerves 2-12 intact Vital Signs: Vital Signs: Last Vital Signs Temp 98.1 F 04/17/25 02:18 Pulse 95 04/17/25 02:18 Resp 20 04/17/25 03:41 BP 101/61 04/17/25 02:18 Pulse Ox 97 04/17/25 02:18 O2 Del Method Room Air 04/17/25 02:18 BMI result Body Mass Index 26.1 Medications Administered Discontinued Medications Generic Name Dose Route Start Last Admin Trade Name Freq PRN Reason Stop Dose Admin Sodium Chloride 1,000 mls @ 999 mls/hr 04/17/25 03:15 04/17/25 03:42 Ns IV 04/17/25 04:15 999 mls/hr .Q1H1M ADELA Administration Morphine Sulfate 4 mg 04/17/25 03:09 04/17/25 03:41 Morphine Sulfate 4 Mg/Ml Cartridge IVPUSH 04/17/25 03:10 4 mg ONCE ONE Administration Protocol Ondansetron HCl 4 mg 04/17/25 03:10 04/17/25 03:41 Ondansetron Hcl 4 Mg/2 Ml Vial IVPUSH 04/17/25 03:11 4 mg ONCE ONE Administration Medical Decision Making Medical Decision Making [facility] Narrative: 3:39 AM 04/17/2025 (Dr. Chuck Lobo): Patient has documented history of drug-seeking behavior but also history of kidney stones on prior CTs, we will obtaining imaging, we will give 1 time dose of morphine 4 mg, and antiemetic, states she had hematuria earlier today, currently urine without any evidence of infection but blood is present, she has no ALL, 4:24 AM 04/17/2025 (Dr. Chuck Lobo): Patient has been requesting additional doses of morphine, and she does have documented history of drug-seeking behavior, I canceled the CT and she had 7 CTs of the abdomen and pelvis this year alone, bedside ultrasound without hydronephrosis, bladder is empty Differential Diagnosis Differential Diagnoses: The differential diagnosis associated with the presentation includes (Renal colic, diverticulitis, drug-seeking behavior, pyelonephritis, UTI) Admission/Observation Consideration of admission/observation: Escalation of care including admission/observation considered Lab Data [facility] Lab Attestation statement: I reviewed the patient's lab results. 04/17/25 02:35 04/17/25 02:35 Labs: Lab Results 04/17/25 04/17/25 Range/Units 02:35 03:16 WBC 7.8 (4.8-10.8) X10*3/uL RBC 4.37 (4.20-5.50) X10*6/uL Hgb 11.3 L (12.0-16.0) g/dl Hct 35.6 L (37.0-47.0) % MCV 81.5 (80.0-98.0) fL MCH 25.9 L (27.0-33.0) pg MCHC 31.7 (31.0-35.0) g/dl RDW 15.2 (11.0-16.0) % Plt Count 284 (160-400) X10*3/uL MPV 9.6 (9.4-12.3) fL Immature Gran % (Auto) 0.4 (0.0-0.4) % Neut % (Auto) 68.9 (45-73) % Lymph % (Auto) 22.8 (20-40) % Richardson % (Auto) 7.1 (2-11) % Eos % (Auto) 0.5 (0-4) % Baso % (Auto) 0.3 (0-2) % Lymph # (Auto) 1.8 (1.2-4.9) X10*3/uL Richardson # (Auto) 0.6 (0.1-1.2) X10*3/uL Eos # (Auto) 0.0 (0.0-0.4) X10*3/uL Baso # (Auto) 0.0 (0.0-0.2) X10*3/uL Abs Immat Gran (auto) 0.03 (0.00-0.03) X10*3/uL Absolute Neuts (auto) 5.4 (2.0-8.3) x10*3/uL Absolute Nucleated RBC 0.000 (0.0-0.012) X10*3/uL Nucleated RBC % (auto) 0.0 (0.0-0.2) /100WBC Sodium 147 H (135-145) mmol/L Potassium 3.2 L (3.3-5.1) mmol/L Chloride 110 H (96-108) mmol/L Carbon Dioxide 24 (22-29) mmol/L Anion Gap 16 (12-20) BUN 25 H (9-16) mg/dL Creatinine 0.62 (0.5-1.4) mg/dL Estim Creat Clear Calc 81.8 Estimated GFR > 60 Random Glucose 136 H (60-115) mg/dL Calcium 9.1 (8.4-10.2) mg/dL Total Bilirubin 0.3 (0.0-1.0) mg/dL AST 44 H (5-31) U/L ALT 39 H (0-31) U/L Alkaline Phosphatase 94 (39-117) U/L Total Protein 7.1 (6.5-8.0) g/dL Albumin 4.4 (3.5-5.0) g/dL Urine Color Yellow Urine Appearance Cloudy Urine pH 6.5 (5.0-9.0) Ur Specific [place] <= 1.005 (1.005-1.025) Urine Protein Negative (Neg-Trace) mg/dL Urine Glucose (UA) Negative (Negative) mg/dL Urine Ketones Negative (Negative) mg/dL Urine Blood Moderate (2+) H (Negative) Urine Nitrite Negative (Negative) Ur Leukocyte Esterase Large (3+) H (Negative) Urine RBC 3-5 H (0-2) /HPF Urine WBC 6-10 (0-5) /HPF Ur Squamous Epith Cells 0-2 (0-2) /HPF Urine Bacteria 3+ (None Seen) Hyaline Casts 0-2 (0-2) /LPF Procedures Ultrasound ED POC Ultrasound: EMERGENCY ULTRASOUND REPORT?Point of Care Urinary Tract (Renal) Indication: Right renal colic Bladder:? Empty Right Kidney:? No hydronephrosis Left Kidney: No hydronephrosis Impression: Unremarkable ultrasound without hydronephrosis Critical Care Time Critical Care Time Total Critical Care Time: 32 Attestation: Time is exclusive of separately billable procedures. Time includes: direct patient care, patient reassessment, coordination of patient care, interpretation of data (laboratory data, pulse oximetry, arterial blood gases and chest xrays), review of patient's medical records, medical consultation and documentation of patient care. Procedures excluded from critical care time: central intravenous line placement and electrocardiography. Discharge Plan Discharge Clinical Impression: Flank pain, right side Patient Disposition: Home, Self-Care Instructions: Flank Pain (ED) Additional Instructions: You have had multiple CTs this year alone for this recurrent pain, around 7 CAT scans, last 1 was done in the beginning of March, bedside ultrasound without abnormalities of the kidneys today there was no evidence that you have any passage of kidney stones, urine without any evidence of infection and blood work without worsening kidney function Please follow up with the PCP and your urologist and for additional pain control please contact your PCP Prescriptions: No Action quetiapine 25 mg tablet 1 tab PO BID PRN (Reason: anxiety) atorvastatin 10 mg tablet 1 tab PO DAILY polyvinyl alcohol [Artificial Tears (polyvin alc)] 1.4 % drops 1 drp ophthalmic (eye) TID gabapentin 400 mg capsule 1 cap PO BEDTIME topiramate 25 mg tablet 1 tab PO BID clonidine HCl 0.2 mg tablet 1 tab PO BID PRN (Reason: panic attack) cyanocobalamin (vitamin B-12) 500 mcg tablet 1 tab PO DAILY ascorbic acid (vitamin C) 250 mg tablet 1 tab PO BID amlodipine 10 mg tablet 1 tab PO DAILY mirtazapine 30 mg tablet 1 tab PO BEDTIME gabapentin 100 mg capsule 1 cap PO TID PRN (Reason: anxiety) zolpidem 10 mg tablet 1 tab PO BEDTIME PRN (Reason: insomnia) albuterol sulfate [ProAir HFA] 90 mcg/actuation HFA aerosol inhaler 2 puff PO Q4-6H PRN (Reason: dyspnea) fluoxetine 20 mg capsule 3 cap PO QAM loratadine 10 mg tablet 1 tab PO DAILY tramadol 50 mg tablet 50 mg PO Q8H PRN (Reason: pain) Qty: 3 0RF sennosides [senna] 8.6 mg tablet 8.6 mg PO BEDTIME Qty: 14 0RF docusate sodium [Colace] 100 mg capsule 100 mg PO BID PRN (Reason: Constipation) Qty: 14 0RF dicyclomine 10 mg capsule 10 mg PO BID Qty: 14 0RF tamsulosin [Flomax] 0.4 mg capsule 0.4 mg PO BEDTIME Qty: 14 0RF oxycodone 5 mg tablet 5 mg PO Q8H PRN (Reason: severe pain (scale score 7-10)) Qty: 9 0RF Rx Instructions: Partial Fill upon patient request. acetaminophen 500 mg capsule 1,000 mg PO Q8H PRN (Reason: fever or pain) Qty: 14 0RF phenazopyridine 200 mg tablet 200 mg PO TID PRN (Reason: Dysuria) Qty: 6 0RF ondansetron 4 mg tablet,disintegrating 4 mg PO Q6H PRN (Reason: nausea and vomiting) Qty: 10 0RF cefuroxime axetil 250 mg tablet 250 mg PO BID 7 Days Qty: 14 0RF acetaminophen [Tylenol] 325 mg tablet 650 mg PO Q6H PRN (Reason: fever or pain) Qty: 30 0RF cyclobenzaprine 10 mg tablet 10 mg PO TID PRN (Reason: muscle spasm) Qty: 20 0RF acetaminophen 325 mg tablet 650 mg PO Q6H PRN (Reason: fever or pain) Qty: 20 0RF Print Language: Thai
[2025-04-17 03:17] LABS: Hematocrit 35.6 % (37.0-47.0); Hemoglobin 11.3 g/dl (12.0-16.0); Imm Gran Abs Auto 0.03 X10*3/uL (0.00-0.03); Imm Gran Pct Auto 0.4 % (0.0-0.4); Lymphocytes Absolute Auto 1.8 X10*3/uL (1.2-4.9); MANUAL DIFF FLAG NO; Mean Corpuscular HGB Conc 31.7 g/dl (31.0-35.0); Mean Corpuscular Hemoglobin 25.9 pg (27.0-33.0); Mean Corpuscular Volume 81.5 fL (80.0-98.0); NRBC Abs Auto 0.000 X10*3/uL (0.0-0.012); NRBC Pct Auto 0.0 /100WBC (0.0-0.2); Platelet Count 284 X10*3/uL (160-400); Red Blood Count 4.37 X10*6/uL (4.20-5.50); White Blood Count 7.8 X10*3/uL (4.8-10.8)
[2025-04-17 03:23] LABS: Appearance Urine Cloudy; Glucose Urine UA Negative (Negative); PH 6.5 (5.0-9.0); Specific Gravity - Urine <= 1.005 (1.005-1.025); UMIC TRIGGER UACC YES
[2025-04-17 03:41] VITALS: RESP 20
[2025-04-17 03:42] LABS: Alanine Aminotransferase 39 U/L (0-31); Albumin Level 4.4 g/dL (3.5-5.0); Alkaline Phosphatase 94 U/L (39-117); Anion Gap 16 (12-20); Aspartate Amino Transferase 44 U/L (5-31); Blood Urea Nitrogen 25 mg/dL (9-16); Calcium 9.1 mg/dL (8.4-10.2); Carbon Dioxide 24 mmol/L (22-29); Chloride 110 mmol/L (96-108); Creatinine Clr Calc Pharmacy 81.8; Estimated Glomerular Filt Rate > 60; Potassium 3.2 mmol/L (3.3-5.1); Sodium 147 mmol/L (135-145); Total Protein 7.1 g/dL (6.5-8.0)
[2025-04-17 04:09] LABS: UACC Culture Trigger YES
[2025-04-17 04:48] VITALS: BP 144/99; PULSE 0; RESP 16; TEMP -17.7; TEMP 0; O2SAT 0
== END 2025-04-17 04:50 | disposition home or self-care (01) ==
PROVIDERS: Emergency Provider Emergency Medicine
DX: R10.A1 Flank pain, right side (principal); R31.9 Hematuria, unspecified; R11.0 Nausea; Z87.442 Personal history of urinary calculi; F17.210 Nicotine dependence, cigarettes, uncomplicated; Z79.899 Other long term (current) drug therapy
CPT/HCPCS: 36415; 76775; 80053; 81001; 85025; 87086; 96361; 96374; 96375; 99284; J2270; J2405

== ENCOUNTER 2025-04-19 03:02 | Emergency (ER) | payer MEDICAID, SELFPAY ==
--- OUTSIDE RECORDS SUMMARY | 2025-04-18 16:48 | XMS_ITS | Encounter Summary ---
Author Organization [facility] Address [address] [place] [address] Care Team Providers Care Posting Specialist Name Role Phone Physician, Pcp Unknown Primary Care Provider Faye vailable Reason for Visit * Reason Comments Abdominal Pain Encounter Details Date Type Department Care Team (Late st Contact Info) Description 04/18/2025 4:48 PM EDT - 04/18/2025 8:[address] [facility] [address] [place] [id number] Teo Holly MD [address] [place] [address] Pyelonephritis (Primary Dx) Discharge Disposition: Home or Self Care Social [...] Sign Reading Time Taken Comments Blood Pressure 145/71 04/18/2025 8:10 PM EDT Pulse 82 04/18/2025 8:10 PM EDT Temperature 36.9 C (98.5 F) 04/18/2025 5:00 PM EDT Respiratory Rate 16 04/18/2025 8:10 PM EDT Oxygen Saturation 97% 04/18/2025 8:10 PM EDT Inhaled Oxygen Concentration - - Weight - - Height - - Body Mass Index - - documented in this encounter Functional Status * Are you deaf or do you have serious difficulty hearing? Answer Date of Assessment Author No 08/21/2024 3:20 PM Lynn Mason RN * Are you blind or do you have serious difficulty seeing, even when wearing glasses? Answer Date of Assessment Author No 08/21/2024 3:20 PM Lynn Mason RN * Do you have serious difficulty walking or climbing stairs? Answer Date of Assessment Author No 08/21/2024 3:20 PM Lynn Mason RN * Do you have serious difficulty dressing or bathing? Answer Date of Assessment Author No 08/21/2024 3:20 PM Lynn Mason RN * Because of a physical, mental, or emotional condition, do you have serious difficulty doing errandsalone such as visiting the doctor? Answer Date of Assessment Author No 08/21/2024 3:20 PM Lynn Mason RN * Calculated C-SSRS Risk Score (Lifetime/Recent) Answer Date of Assessment Author No Risk Indicated 04/18/2025 4:56 PM EDT Nicole Mcginnis RN * [place]ole Suicide Severity Rating Scale (Screener/Recent Self-Report) Question Answer Date of Assessment Author 1. Wish to be (Past 1 Month) No 025 4:56 PM EDT Nicole Mcginnis RN 2. Non-Specific Active Suici bam Thoughts (Past 1 Month) No 04/18/2025 4:56 PM EDT Nicole Mcginnis RN 6. Suicidal Behavior (Lifetime) No 4:56 PM EDT Nicole Mcginnis RN documented as of this encounter Mental Status * Because of a physical, mental, or emotional condition, do you have serious difficulty concentrating, remembering, or making decisions? (5 years old or older) Answer Entry Date Author No 08/21/2024 3:20 PM Lynn Mason RN documented in this encounter Discharge Instructions * Discharge Instructions* Teo Holly MD - 04/18/2025 8:[address] scan did not show evidence of a kidney stone. You do have a urinary tract infection, you will take an antibiotic called Keflex 3 times a day for 7 days to treat this. Follow up with your primary care doctor. Return with any new or worsening symptoms. * Attachments The following attachments cannot be sent through Care Everywhere. * Pyelonephritis (Kinyarwanda) documented in this encounter Medications at Time of Discharge cephalexin (KEFLEX) 500 mg capsule Take 1 capsule (500 mg total) by mouth 3 (three) times a day for 7 days. 21 each 04/18/2025 04/25/2025 documented as of this encounter Ordered Prescriptions Prescription Sig Dispense Quantity Refills Last Filled Start Date End Date cephalexin (KEFLEX) 500 mg capsule Take 1 capsule (500 mg total) by mouth 3 (three) times a day for 7 days. 21 each 04/18/2025 documented in this encounter Discharge Disposition Disposition Code Departure Means Destination Comment s Home or Self Care documented in this encounter Progress Notes * Nicole Mcginnis RN - 04/18/2025 4:52 PM EDT Bibesmer coming from home reports left flank pain radiating to her groin. Patient states it is caused by kidney stone and states she get them frequently. Patient has 10 out of 10 pain. Received 60mcg of fentanyl as well as 4mg of Zofran. Patient reports blood in urine as well as N/V for 3 days. * Teo Holly MD - 04/18/2025 4:44 PM EDT HPI Chief Complaint Patient presents with Abdominal Pain Patient is a 59-year-old female with history of asthma, nephrolithiasis, C- section who is presenting to the ER via EMS with flank pain. Patient states for the last 3 days she has had left-sided flankpain radiating to the left lower abdomen and groin with associated nausea/vomiting and hematuria. No fevers. She received fentanyl and Zofran with EMS for which she reports no relief. No chest pain, shortness of breath, diarrhea. Atiya Coma Scale Score: 15 Patient History Medical History[1] Surgical History[2] Family History[3] Social History Tobacco Use Smoking status: Not on file Smokeless tobacco: Not on file Substance Use Topics Alcohol use: Not on file Drug use: Not on file Review of Systems Review of Systems Constitutional: Negative for chills and fever. Respiratory: Negative for shortness of breath. Cardiovascular: Negative for chest pain. Gastrointestinal: Positive for abdominal pain, nausea and vomiting. Negative for blood in stool, constipation and diarrhea. Genitourinary: Positive for flank pain and hematuria. Negative for dysuria, frequency and urgency. Musculoskeletal: Negative for back pain and neck pain. Physical Exam ED Triage Vitals Temp Heart Rate Resp BP 04/18/25 1700 04/18/25 1659 04/18/25 16504/18/251658 36.9 ??C (98.5 ??F) 100 15 (!) 163/84 SpO2 Temp src Heart Rate Source Patient Position 04/18/251658 -- -- -- 98 % BP Location FiO2 (%) -- -- Physical Exam Vitals and nursing note reviewed. Constitutional: Appearance: She is not ill-appearing or toxic-appearing. Comments: Appears uncomfortable HENT: Head: Normocephalic and atraumatic. Right Ear: External ear normal. Left Ear: External ear normal. Nose: Nose normal. Mouth/Throat: Mouth: Mucous membranes are moist. Eyes: General: No scleral icterus. Extraocular Movements: Extraocular movements intact. Conjunctiva/sclera: Conjunctivae normal. Cardiovascular: Rate and Rhythm: Regular rhythm. Tachycardia present. Pulmonary: Effort: Pulmonary effort is normal. Breath sounds: Normal breath sounds. Abdominal: General: Abdomen is flat. Palpations: Abdomen is soft. There is no hepatomegaly or splenomegaly. Tenderness: There is abdominal tenderness in the suprapubic area and left lower quadrant. There is left CVA tenderness. There is no right CVA tenderness, guarding or rebound. Skin: General: Skin is warm and dry. Capillary Refill: Capillary refill takes less than 2 seconds. Coloration: Skin is not jaundiced or pale. Findings: No rash. Neurological: General: No focal deficit present. Mental Status: She is alert and oriented to person, place, and time. Psychiatric: Mood and Affect: Mood normal. Behavior: Behavior normal. ED Course & MDM ED Course as of 10/17/25 2048 Fri Apr 18, 2025 1749 Auto WBC: 7.1 [CL] 1749 Hemoglobin(!): 11.3 [CL] 1832 Creatinine: 0.69 [CL] 1832 Lipase: 35 [CL] 1956 CT Abdomen Pelvis w Contrast Impression: 1. No acute abnormality or CT explanation for reported history of left flank pain and hematuria. Specifically, punctate nonobstructing left renal calculus is present. No ureteral stones or hydroureteronephrosis appreciated. [CL] 2023 Urinalysis with reflex microscopic ([id number])(!) Contaminated but we will plan to treat given her symptoms and send culture [CL] 2045 CT without acute findings, nonobstructing renal calculi noted. UA with possible UTI, will planto treat withKeflex 3 times daily for 7 days. Supportive care instructions given. Close PCP follow-up advised. Strict return precautions given. [CL] ED Course User Index [CL] Teo Holly MD Clinical Impressions as of 04/18/252047 Pyelonephritis Medical Decision Making Patient with history of nephrolithiasis presenting with several days of left- sided flank and abdominal pain with associated hematuria and nausea/vomiting. Vitals notable for mild tachycardia and hypertension here. No fever. She does have left-sided flank pain and abdominal pain on exam. Presentation most consistent with nephrolithiasis versus pyelonephritis. Will further evaluate with abdominal labs, UA and a CT abdomen pelvis with contrast. Will treat symptomatically with IV fluids, Reglan, Benadryl and morphine to start. Teo Holly MD 04/18/251754 [1] No past medical history on file. [2] No past surgical history on file. [3] No family history on file. Teo Holly MD 04/18/252047 documented in this encounter Plan of Treatment Not on file documented as of this encounter Procedures Procedure Name Priority Date/Time Associated Diagnosis Comments URINALYSIS WITH REFLEX MICROSCOPIC STAT 04/18/2025 7:57 PM EDT URINALYSIS WITH REFLEX MICROSCOPIC STAT 04/18/2025 7:[address] ABDOMEN PELVIS W CONTRAST STAT 04/18/2025 7:21 PM EDT CBC WITH AUTO DIFFERENTIAL STAT 04/18/2025 4:59 PM EDT CBC AND DIFFERENTIAL STAT 04/18/2025 4:59 PM EDT MAGNESIUM STAT 04/18/2025 4:59 PM EDT LIPASE STAT 04/18/2025 4:59 PM EDT COMPREHENSIVE METABOLIC PANEL STAT 04/18/2025 4:59 PM EDT documented in this encounter Results * (ABNORMAL) Urinalysis with reflex microscopic (04/18/2025 7:57 PM EDT) Specific [place] Urine 1.033(H) 1.003 - 1.030 LAB URINALYSIS - AUTOMATED METHOD 04/18/2025 8:23 PM [facility] pH, Urine 6.0 5.0 - 8.0 pH LAB URINALYSIS - AUTOMATED METHOD 04/18/2025 8:23 PM [facility] Leukocytes, Urine Trace(A) Negative LAB URINALYSIS - AUTOMATED METHOD 04/18/2025 8:23 PM [facility] Nitrite, Urine Negative Negative LAB URINALYSIS - AUTOMATED METHOD 04/18/2025 8:23 PM [facility] Protein, Urine Trace <=Trace mg/dL LAB URINALYSIS - AUTOMATED METHOD 04/18/2025 8:23 PM [facility] Glucose, Urine Negative Negative mg/dL LAB URINALYSIS - AUTOMATED METHOD 04/18/2025 8:23 PM [facility] Ketones, Urine Negative Negative mg/dL LAB URINALYSIS - AUTOMATED METHOD 04/18/2025 8:23 PM [facility] Urobilinogen , Urine 0.2 0.2 - 1.0 mg/dL LAB URINALYSIS - AUTOMATED METHOD 04/18/2025 8:23 PM EDT [facility] Bilirubin, Urine Negative Negative LAB URINALYSIS - AUTOMATED METHOD 04/18/2025 8:23 PM EDT [facility] Blood, Urine Negative Negative LAB URINALYSIS - AUTOMATED METHOD 04/18/2025 8:23 PM EDT [facility] RBC, Urine 1.5 0 - 4 /HPF LAB URINALYSIS - AUTOMATED METHOD 04/18/2025 8:23 PM EDT [facility] WBC, Urine 16.5(H) 0 - 4 /HPF LAB URINALYSIS - AUTOMATED METHOD 04/18/2025 8:23 PM EDT [facility] Squamous Epithelial, Urine >100(H) 0 - 60 /LPF LAB URINALYSIS - AUTOMATED METHOD 04/18/2025 8:23 PM [facility] Bacteria, Urine Moderate(A) Negative /HPF LAB URINALYSIS - AUTOMATED METHOD 04/18/2025 8:23 PM T [facility] Hyaline Casts, Urine 8.8(H) 0 - 3 /LPF LAB [facility]YSIS - [facility]OM[facility] Urine specimen obtained by clean catch procedure / Unknown Non-blood Collection / Unknown 04/18/2025 7:57 PM EDT 04/18/2025 8:01 PM EDT us Teo Holly MD LAB URINE ORDERABLES Final R esult [facility] [address] [place] [address], * CT Abdomen Pelvis w Contrast (04/18/2025 7:21 PM EDT) Anatomical Region Laterality Modality Body Computed Tomogra phy 04/18/2025 7:55 PM EDT Impressions 04/18/2025 7:55 PM EDT Impression: 1. No acute abnormality or CT explanation for reported history of left flank pain and hematuria. Specifically, punctate nonobstructing left renal calculus is present. No ureteral stones or hydroureteronephrosis appreciated. This document has been electronically signed by: Alexandre Ying MD on 04/18/2025 19:55:34 Narrative 04/18/2025 7:55 PM EDT INDICATION: left flank pain, n/v, hematuria Exam: Contrast-enhanced CT abdomen and pelvis with multiplanar reformats. Comparison: 07/06/2023. Findings: CT abdomen: Lung bases are clear. Liver is free of focal lesions and ductal dilatation. Gallbladder is unremarkable. Spleen appears unremarkable. Pancreas and adrenal glands appear unremarkable. 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 A punctate nonobstructing left renal upper pole calculus (3; 55) is noted. No ureteral stones or hydroureteronephrosis. No free intraperitoneal fluid or retroperitoneal masses or adenopathy. Abdominal aorta is normal caliber. Bowel loops reveal no abnormal wall thickening or distention. The appendix is unremarkable. No significant diverticular disease. CT pelvis: Uterus and adnexal structures appear unremarkable. Urinary bladder is free of filling defects. No pelvic masses, fluid or adenopathy. Osseous structures reveal no destructive osseous lesions. Procedure Note Alexandre Ying MD - 04/18/2025 INDICATION: left flank pain, n/v, hematuria Exam: Contrast-enhanced CT abdomen and pelvis with multiplanarreformats. Comparison: 07/06/2023. Findings: CT abdomen: Lung bases are clear. Liver is free of focal lesions and ductal dilatation. Gallbladder is unremarkable. Spleen appears unremarkable. Pancreas and adrenal glands appear unremarkable. 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 A punctate nonobstructing left renal upper pole calculus (3; 55) is noted. No ureteral stones or hydroureteronephrosis. No free intraperitoneal fluid or retroperitoneal masses or adenopathy. Abdominal aorta is normal caliber. Bowel loops reveal no abnormal wall thickening or distention. Theappendix is unremarkable. No significant diverticular disease. CT pelvis: Uterus and adnexal structures appear unremarkable. Urinary bladder is free of filling defects. No pelvic masses, fluid oradenopathy. Osseous structures reveal no destructive osseous lesions. IMPRESSION: Impression: 1. No acute abnormality or CT explanation for reported history of left flank pain and hematuria. Specifically, punctate nonobstructing leftrenal calculus is present. No ureteral stones or hydroureteronephrosis appreciated. This document has been electronically signed by: Alexandre Ying MD on 04/18/2025 19:55:34 Teo Holly MD IM CT PROCEDURES Final Resu lt * (ABNORMAL) CBC auto differential (04/18/2025 4:59 PM EDT) WBC 7.1 4.8 - 10.8 K/mcL LAB HEMETOLOGY METHOD 04/18/2025 5:48 PM EDT [facility] RBC 4.30 3.80 - 4.80 M/mcL LAB HEMETOLOGY METHOD 04/18/2025 5:48 PM EDT [facility] Hemoglobin 11.3(L) 11.5 - 16.0 g/dL LAB HEMETOLOGY METHOD 04/18/2025 5:48 PM EDT [facility] Hematocrit 36.1 35.0 - 47.0 % LAB HEMETOLOGY METHOD 04/18/2025 5:48 PM EDT [facility] MCV 84.0 79.0 - 98.0 FL LAB HEMETOLOGY METHOD 04/18/2025 5:48 PM EDT [facility] MCH 26.3(L) 27.0 - 32.0 pcg LAB HEMETOLOGY METHOD 04/18/2025 5:48 PM EDT [facility] MCHC 31.3(L) 32.0 - 37.0 g/dL LAB HEMETOLOGY METHOD 04/18/2025 5:48 PM EDT [facility] RDW 15.7(H) 11.0 - 15.0 % LAB HEMETOLOGY METHOD 04/18/2025 5:48 PM EDT [facility] Platelets 303 130 - 400 K/mcL LAB HEMETOLOGY METHOD 04/18/2025 5:48 PM EDT [facility] MPV 9.9 7.0 - 11.0 FL LAB HEMETOLOGY METHOD 04/18/2025 5:48 PM EDT [facility] NRBC 0.0 <1.0 % LAB HEMETOLOGY METHOD 04/18/2025 5:48 PM EDT [facility] NRBC Absolute 0.00 <0.10 K/mcL LAB HEMETOLOGY METHOD 04/18/2025 5:48 PM EDT [facility] Neutrophils Relative 50.8 % LAB HEMETOLOGY METHOD 04/18/2025 5:48 PM EDT [facility] Lymphocytes Relative 36.9 % LAB HEMETOLOGY METHOD 04/18/2025 5:48 PM EDT [facility] Monocytes Relative 7.8 % LAB HEMETOLOGY METHOD 04/18/2025 5:48 PM EDT [facility] Eosinophils Relative 3.7 % LAB HEMETOLOGY METHOD 04/18/2025 5:48 PM EDT [facility] Basophils Relative 0.4 % LAB HEMETOLOGY METHOD 04/18/2025 5:48 PM EDT [facility] Immature Granulocytes Relative 0.4 % LAB HEMETOLOGY METHOD 04/18/2025 5:48 PM EDT [facility] Neutrophils Absolute 3.59 1.50 - 7.00 K/mcL LAB HEMETOLOGY METHOD 04/18/2025 5:48 PM EDT [facility] Lymphocytes Absolute 2.61 1.00 - 5.00 K/mcL LAB HEMETOLOGY METHOD 04/18/2025 5:48 PM EDT [facility] Monocytes Absolute 0.55 0.20 - 1.00 K/mcL LAB HEMETOLOGY METHOD 04/18/2025 5:48 PM EDT [facility] Eosinophils Absolute 0.26 0.00 - 0.50 K/[facility] LAB HEMETOLOGY METHOD 04/18/2025 5:48 PM EDT [facility] Basophils Absolute 0.03 0.00 - 0.20 K/[facility] LAB HEMETOLOGY METHOD 04/18/2025 5:48 PM EDT [facility] Immature Granulocytes Absolute 0.03 0.00 - 0.03 K/[facility] HEMETOLOGY METHOD 04/18/2025 5:48 PM EDT [facility] Blood Venous blood specimen / Unknown Venipuncture / Unknown 04/18/2025 4:59 PM EDT 04/18/2025 5:34 PM EDT Teo Holly MD LAB BLOOD ORDERABLES Final R esult Performing Organization Address City/[facility]/ZIP Co de Phone Number [facility] [address] [place] [address], [place] [phone] * Lipase (04/18/2025 4:59 PM EDT) Lipase 35 13 - 75 unit/L LAB CHEMISTRY METHOD 04/18/2025 6:28 PM EDT [facility] Blood Venous blood specimen / Unknown Venipuncture / Unknown 04/18/2025 4:59 PM EDT 04/18/2025 5:34 PM EDT Teo Holly MD LAB BLOOD ORDERABLES Final R esult [facility] [address] [place] [address], [place] [phone] * Magnesium (04/18/2025 4:59 PM EDT) Magnesium 2.1 1.9 - 2.6 mg/dL LAB CHEMISTRY METHOD 04/18/2025 6:28 PM EDT [facility] Blood Venous blood specimen / Unknown Venipuncture / Unknown 04/18/2025 4:59 PM EDT 04/18/2025 5:34 PM EDT us Teo Holly MD LAB BLOOD ORDERABLES Final R esult [facility] [address] [place] [address], * (ABNORMAL) Comprehensive Metabolic Panel (CMP) (04/18/2025 4:59 PM EDT) Sodium 144 133 - 145 mmol/L LAB CHEMISTRY METHOD 04/18/2025 6:30 PM [facility] Potassium 3.8 3.5 - 5.5 mmol/L LAB CHEMISTRY METHOD 04/18/2025 6:30 PM [facility] Chloride 112(H) 96 - 110 mmol/L LAB CHEMISTRY METHOD 04/18/2025 6:30 PM [facility] CO2 27 21 - 32 mmol/L LAB CHEMISTRY METHOD 04/18/2025 6:30 PM [facility] Anion Gap 5 3 - 11 LAB CHEMISTRY METHOD 04/18/2025 6:30 PM [facility] Glucose 119(H) 70 - 100 mg/dL LAB CHEMISTRY METHOD 04/18/2025 6:30 PM [facility] BUN 11 5 - 25 mg/dL LAB CHEMISTRY METHOD 04/18/2025 6:30 PM [facility] Creatinine 0.69 0.50 - 1.10 mg/dL LAB CHEMISTRY METHOD 04/18/2025 6:30 PM [facility] eGFR 99 >=60 mL/min/1. 73m2 LAB CHEMISTRY METHOD 04/18/2025 6:30 PM [facility] Comment:Calculation based on the Chronic Kidney Disease Epidemiology Collaboration (CKD-EPI) equation refit without adjustment for race. BUN/Creatinine Ratio 15.9 LAB CHEMISTRY METHOD 04/18/2025 6:30 PM EDT [facility] Calcium 8.7 8.5 - 10.5 mg/dL LAB CHEMISTRY METHOD 04/18/2025 6:30 PM EDT [facility] AST (SGOT) 26 10 - 42 unit/L LAB CHEMISTRY METHOD 04/18/2025 6:30 PM EDT [facility] ALT (SGPT) 36 10 - 60 unit/L LAB [facility]STR[facility]25 6:[facility] Alkaline Phosphatase 138(H) 42 - 121 unit/L LAB CHEMISTRY METHOD 04/18/2025 6:30 PM EDT [facility] Total Protein 7.0 6.0 - 8.0 g/dL LAB CHEMISTRY METHOD 04/18/2025 6:30 PM EDT [facility] Albumin 3.8 3.2 - 5.0 g/dL LAB CHEMISTRY METHOD 04/18/2025 6:30 PM EDT [facility] Total Bilirubin 0.2 0.0 - 1.4 mg/dL LAB CHEMISTRY METHOD 04/18/2025 6:30 PM EDT [facility] Blood Venous blood specimen / Unknown Venipuncture / Unknown 04/18/2025 4:59 PM EDT 04/18/2025 5:34 PM EDT us Teo Holly MD LAB BLOOD ORDERABLES Final R esult [facility] [address] [place] [address], documented in this encounter Visit Diagnoses Diagnosis Pyelonephritis- Primary Unspecified pyelonephritis documented in this encounter Administered Medications Inactive Administered Medications - up to 3 most recent administrations Medication Order MAR Action Action Date Dose Rate Site cephalexin (KEFLEX) capsule 500 mg 500 mg, oral, Once, On Mon04/18/25 at 2026, For 1 dose, Indication: Urinary Tract/Genitourinary Given 04/18/2025 8:43 PM EDT 500 mg diphenhydrAMINE (BENADRYL) injection 25 mg 25 mg, intravenous, Once, On Mon04/18/25 at 1707, For 1 dose Given 04/18/2025 5:13 PM EDT 25 mg HYDROmorphone (DILAUDID) injection 0.5 mg 0.5 mg, intravenous, Once, On Mon04/18/25 at 1732, For 1 dose Given 04/18/2025 5:46 PM EDT 0.5 mg iopamidoL (ISOVUE-370) 370 mg iodine /mL (76 %) injection 90 mL 90 mL, intravenous, Once in imaging, Starting on Mon04/18/25 at 1918, For 1 dose Given 04/18/2025 7:18 PM EDT 90 mL methocarbamoL (ROBAXIN) tablet 1,000 mg 1,000 mg, oral, Once, On Mon04/18/25 at 2019, For 1 dose Given 04/18/2025 8:43 PM EDT 1,000 mg metoclopramide (REGLAN) injection 10 mg 10 mg, intravenous, Once, On Mon04/18/25 at 1707, For 1 dose, Doses LESS than or equal to 10 mg can be given IV push undiluted over 1 minute Given 04/18/2025 5:12 PM EDT 10 mg morphine 4 mg/mL injection - ADS Override Pull Starting on Mon04/18/25 at 1711, For 1 dose, Created by jimi override morphine injection 4 mg 4 mg, intravenous, Once, On Mon04/18/25 at 1707, For 1 dose Given 04/18/2025 5:14 PM EDT 4 mg sodium chloride 0.9 % bolus 1,000 mL 1,000 mL, intravenous, at 1,000 mL/hr, Administer over 1 Hours, Once, On Mon04/18/25 at 1707, For 1 dose New Bag 04/18/2025 5:12 PM EDT 1,000 mL 1000 mL/hr sodium chloride 0.9 % flush 10 mL 10 mL, intravenous, Once, On Mon04/18/25 at 1919, For 1 dose Given 04/18/2025 7:18 PM EDT 10 mL documented in this encounter Active and Recently Administered Medications Times are shown in EDT. Scheduled Medication Order 04/16/2025 04/17/2025 04/18/2025 cephalexin (KEFLEX) capsule 500 mg (COMPLETED) 500 mg, oral, Once, On Mon04/18/25 at 2026, For 1 dose, Indication: Urinary Tract/Genitourinary 2042 (Given - Provid er: Nicole Mcginnis RN) diphenhydrAMINE (BENADRYL) injection 25 mg (COMPLETED) 25 mg, intravenous, Once, On Mon04/18/25 at 1707, For 1 dose 1712 (Given - Provid er: Nicole Mcginnis RN) HYDROmorphone (DILAUDID) injection 0.5 mg (COMPLETED) 0.5 mg, intravenous, Once, On Mon04/18/25 at 1732, For 1 dose 1745 (Given - Provid er: Nicole Mcginnis RN) iopamidoL (ISOVUE-370) 370 mg iodine /mL (76 %) injection 90 mL (COMPLETED) 90 mL, intravenous, Once in imaging, Starting on Mon04/18/25 at 1918, For 1 dose 1917 (Given - Provid er: Alex Steele) methocarbamoL (ROBAXIN) tablet 1,000 mg (COMPLETED) 1,000 mg, oral, Once, On Mon04/18/25 at 2019, For 1 dose 2042 (Given - Provid er: Nicole Mcginnis RN) metoclopramide (REGLAN) injection 10 mg (COMPLETED) 10 mg, intravenous, Once, On Mon04/18/25 at 1707, For 1 dose, Doses LESS than or equal to 10 mg can be given IV push undiluted over 1 minute 1711 (Given - Provid er: Nicole Mcginnis RN) morphine injection 4 mg (COMPLETED) 4 mg, intravenous, Once, On Mon04/18/25 at 1707, For 1 dose 1713 (Given - Provid er: Nicole Mcginnis RN) sodium chloride 0.9 % bolus 1,000 mL (COMPLETED) 1,000 mL, intravenous, at 1,000 mL/hr, Administer over 1 Hours, Once, On Mon04/18/25 at 1707, For 1 dose 1711 (New Bag - Prov ider: Nicole Mcginnis, RN)1954 (Stopped - Provider: Nicole Mcginnis, RN) sodium chloride 0.9 % flush 10 mL (COMPLETED) 10 mL, intravenous, Once, On Mon04/18/25 at 1919, For 1 dose 1917 (Given - Provid er: Alex Steele) documented in this encounter Orders Nursing Count Last Ordered Date First Orde red Date BLADDER SCAN 1 04/18/2025 IV Count Last Ordered Date First Orde red Date INSERT PERIPHERAL IV 1 04/18/2025 documented in this encounter Care Teams Posting Specialist Relationship Specialty Start Date End Date Physician, Pcp Unknown PCP - General 04/18/25 documented as of this encounter
--- NOTE | ~2025-04-19 | CT_ITS ---
CLINICAL HISTORY: Flank Pain; Hx Kidney Stone CT abdomen and pelvis with contrast Comparison: 03/08/2025 Findings: The lung bases are clear. Contracted gallbladder. Small number of tiny bilateral nonobstructive renal stones. Mild prominence of the renal collecting systems bilaterally without obstructive urinary tract stone likely due to the distended urinary bladder distention. No perinephric fat stranding. 13 mm right renal lipoma versus angiomyolipoma along with too small to characterize right renal hypodensity redemonstrated. Mild left renal scarring. [id number] colonic stool. No bowel obstruction. Atherosclerotic calcifications. Small uncomplicated fat containing umbilical hernia. No appendicitis. No significant change in mild fat stranding (likely due to scarring) anterior to the urinary bladder. Rest of the abdominopelvic viscera are unremarkable. No acute fracture. Spinal degenerative changes. L3 vertebral body hemangioma. IMPRESSION: Small number of tiny bilateral nonobstructive renal stones. Mild prominence of the renal collecting systems bilaterally without obstructive urinary tract stone likely due to the distended urinary bladder distention. No perinephric fat stranding. This document has been electronically signed by: Anupama Yung MD on 04/19/2025 08:04:22
[2025-04-19 03:16] VITALS: BP 163/71; BP 193/102; PULSE 102; PULSE 97; RESP 21; TEMP 36.7; O2SAT 98; BMI 26.4
[2025-04-19 03:23] LABS: MANUAL DIFF FLAG NO
[2025-04-19 03:27] LABS: Hematocrit 34.0 % (37.0-47.0); Hemoglobin 10.9 g/dl (12.0-16.0); Imm Gran Abs Auto 0.04 X10*3/uL (0.00-0.03); Imm Gran Pct Auto 0.5 % (0.0-0.4); Lymphocytes Absolute Auto 1.4 X10*3/uL (1.2-4.9); Mean Corpuscular HGB Conc 32.1 g/dl (31.0-35.0); Mean Corpuscular Hemoglobin 26.7 pg (27.0-33.0); Mean Corpuscular Volume 83.3 fL (80.0-98.0); NRBC Abs Auto 0.000 X10*3/uL (0.0-0.012); NRBC Pct Auto 0.0 /100WBC (0.0-0.2); Platelet Count 264 X10*3/uL (160-400); Red Blood Count 4.08 X10*6/uL (4.20-5.50); White Blood Count 8.5 X10*3/uL (4.8-10.8)
[2025-04-19 03:42] LABS: Alanine Aminotransferase 28 U/L (0-31); Albumin Level 4.2 g/dL (3.5-5.0); Alkaline Phosphatase 130 U/L (39-117); Anion Gap 14 (12-20); Aspartate Amino Transferase 24 U/L (5-31); Blood Urea Nitrogen 10 mg/dL (9-16); Calcium 8.4 mg/dL (8.4-10.2); Carbon Dioxide 24 mmol/L (22-29); Chloride 109 mmol/L (96-108); Creatinine Clr Calc Pharmacy 83.7; Estimated Glomerular Filt Rate > 60; Lipase 35 U/L (8-78); Potassium 4.2 mmol/L (3.3-5.1); Sodium 143 mmol/L (135-145); Total Protein 6.7 g/dL (6.5-8.0)
--- OUTSIDE RECORDS SUMMARY | 2025-04-19 03:45 | XMS_ITS | Encounter Summary ---
Author Organization [employer] Address [address] [facility] 7 [place] [address] Care Team Providers Care Player Services Representative Name Role Phone Amber Quiroz MD Primary Care Provider [phone] Fred Parker RN Unavailable [phone] Sherry Herbert Unavailable Reason for Visit * Reason Comments Care [facility]ination [facility] outreach Encounter Details Date Type Department Care Team (Latest Contact Info) Description 04/18/2025 Patient Outreach [facility] MEDICINE [address] [place], [place] [phone] Amber Quiroz MD [address] [place] [address] Care Coordination (C3 LEE Herbert telephone call outreach) Social History Tobacco Use Types Packs/Day [...] encounter Progress Notes * Sherry Herbert - 04/18/2025 1:51 PM EDT CHW Sherry Herbert, placed outbound call to patient in regards to offer services. CHW introducing herself from [facility] CM Department with CHW's name, department and direct contact [...] documented as of this encounter Care Teams Player Services Representative Relationship Specialty Start Date End Date Amber Quiroz MD [address] [place] [address] PCP - General Family Medicine 07/03/18 Fred Parker RN [address] [place] [address] TESHA Benavides [address] Registered Nurse Family Medicine 04/16/25 Sherry Herbert 04/16/25 documented as of this encounter
--- OUTSIDE RECORDS SUMMARY | 2025-04-19 03:45 | XMS_ITS | Encounter Summary ---
Author Organization [employer] Address [address] [facility] [address] 7[address] [place] [address] Care Team Providers Care Board Member Name Role Phone Amber Quiroz MD Primary Care Provider [phone] Fred Parker RN Unavailable [phone] Sherry Herbert Unavailable Encounter Details Date Type Department Care Team (Late st Contact Info) Description 12/12/2023 Orders Only [facility] MEDICINE [address] [place], [place] [phone] Amber Quiroz MD [address] [place] [address] Nephrolithiasis (Primary Dx) Social History [...] kidney documented in this encounter Care Teams Board Member Relationship Specialty Start Date End Date Amber Quiroz MD [address] [place] [address] PCP - General Family Medicine 07/03/18 Fred Parker, DOROTA [address] [place] [address] Registered Nurse Family Medicine 04/16/25 Sherry Herbert 04/16/25 documented as of this encounter
--- OUTSIDE RECORDS SUMMARY | 2025-04-19 03:45 | XMS_ITS ---
Author Organization [employer] Address [address] [facility] 7 [place] [address] Care Team Providers Care Engineering Teacher Name Role Phone Amber Quiroz MD Primary Care Provider [phone] Fred Parker RN Unavailable [phone] Sherry Herbert Unavailable CM Complex Status:Outreach In Progress (Enrolling) Start date:04/16/2025 Enrollment reason:ADT Feed Overview ADT-[facility] ED 04/15/25 Case Team Name Relationship Phone Fred Parker RN(Responsible Staff) Registered Jeremie salgado [phone] Continued Care and Services Coordination
--- OUTSIDE RECORDS SUMMARY | 2025-04-19 03:45 | XMS_ITS | Encounter Summary ---
Author Organization [employer] Address [address] [facility] [address] 7[address] [place] [address] Care Team Providers Care Lumber Chain Offbearer Name Role Phone Amber Quiroz MD Primary Care Provider [phone] Fred Parker RN Unavailable [phone] Sherry Herbert Unavailable Encounter Details Date Type Department Care Team (Late st Contact Info) Description 04/17/2025 Orders Only GENERIC EXTERNAL DATA DEPARTMENT Provider, [...] Associated Diagnosis Comments CULTURE, URINE, ROUTINE Routine 04/17/2025 8:56 AM EDT URINALYSIS, COMPLETE, WITH REFLEX TO CULTURE Routine 04/17/2025 3:16 AM EDT CBC WITH AUTO DIFFERENTIAL Routine 04/17/2025 2:35 AM EDT COMPREHENSIVE METABOLIC PANEL Routine 04/17/2025 2:35 AM EDT documented in this encounter Results * Culture, Urine, Routine (04/17/2025 8:56 AM EDT) Urine Urine specimen obtained by clean catch procedure / Unknown 04/17/2025 8:56 AM EDT 04/17/2025 8:56 AM EDT Comment:UACC Narrative [facility] - 04/18/2025 10:33 AM EDT Urine Culture No growth. Specimen Source: Urine clean catch us Generic External Data Provider LAB MICROBIOLOGY - GENERAL ORDERABLES Final Result [facility] [address] [place] [phone] * (ABNORMAL) Urinalysis, Complete, with Reflex to Culture (04/17/2025 3:16 AM EDT) Color Urine Yellow [facility] Appearance Urine Cloudy [facility] PH 6.5 5.0 - 9.0 [facility] Glucose Urine UA Negative Negative mg/dL [facility] Urine Blood Moderate (2+)(A) Negative [facility] Specific Scheller - Urine <=1.005 1.005 - 1.025 [facility] Urine Protein Negative Neg-Trace mg/dL [facility] Urine Ketones Negative Negative mg/dL [facility] Nitrite Urine Negative Negative [facility] Leukocyte Esterase Urine Large (3+)(A) Negative [facility] RBC Urine 3-5(A) 0 - 2 /HPF [facility] Urine WBC 6-10 0 - 5 /HPF [facility] Urine Squamous Epithelial Cell 0-2 0 - 2 /HPF [facility] Urine Bacteria 3+ None Seen [facility] Hyaline Casts, Urine 0-2 0 - 2 /LPF [facility] 04/17/2025 3:16 AM EDT 04/17/2025 3:20 AM EDT Narrative [facility] - 04/17/2025 4:12 AM EDT [id number], Clean Catch us Generic External Data Provider LAB URINE ORDERAB LES Final Result [facility] [address] [place] [phone] * (ABNORMAL) Comprehensive Metabolic Panel (04/17/2025 2:35 AM EDT) Sodium 147(H) 135 - 145 mmol/L [facility] Potassium 3.2(L) 3.3 - 5.1 mmol/L [facility] Chloride 110(H) 96 - 108 mmol/L [facility] Carbon Dioxide 24 22 - 29 mmol/L [facility] Anion Gap 16 12 - 20 [facility] Urea Nitrogen (BUN) 25(H) 9 - 16 mg/dL [facility] Creatinine, Serum 0.62 0.5 - 1.4 mg/dL [facility] Creatinine Clr Calc Pharmacy 81.8 [facility] Comment:Provided height and weight: 154.94 cm,62.596 kg.eGFR (calculated from the MDRD study equation) and eCrCl(calculated from the Cockcroft-Gault equation) are based ondifferent parameters and may not yield comparable results.If eCrCl result is absurd, please check patient'sheight/weight. Estimated Glomerular Filt Rate >60 [facility] Comment:Chronic Kidney Disea se: Estimated GFR < 60 mL/min/1.18e1Wmmtsu Kidney Disease: Estimated GFR < 15 mL/min/1.73m2 Glucose 136(H) 60 - 115 mg/dL [facility] Calcium 9.1 8.4 - 10.2 mg/dL [facility] Bilirubin, Total 0.3 0.0 - 1.0 mg/dL [facility] Aspartate Amino Transferase 44(H) 5 - 31 U/L [facility] Alanine Aminotransferase 39(H) 0 - 31 U/L [facility] Total Protein 7.1 6.5 - 8.0 g/dL [facility] Albumin Level 4.4 3.5 - 5.0 g/dL [facility] Alkaline Phosphatase 94 39 - 117 U/L [facility] 04/17/2025 2:35 AM EDT 04/17/2025 3:16 AM EDT us Generic External Data Provider LAB BLOOD ORDERAB LES Final Result [facility] [address] [place] [phone] * (ABNORMAL) CBC auto differential (04/17/2025 2:35 AM EDT) White Blood Count 7.8 4.8 - 10.8 X10*3/uL [facility] Red Blood Count 4.37 4.20 - 5.50 X10*6/uL [facility] Hemoglobin 11.3(L) 12.0 - 16.0 g/dl [facility] Hematocrit 35.6(L) 37.0 - 47.0 % [facility] Mean Corpuscular Volume 81.5 80.0 - 98.0 fL [facility] Mean Corpuscular Hemoglobin 25.9(L) 27.0 - 33.0 pg [facility] Mean Corpuscular HGB Conc 31.7 31.0 - 35.0 g/dl [facility] Red Cell Distribution Width 15.2 11.0 - 16.0 % [facility] Platelet Count 284 160 - 400 X10*3/uL [facility] Mean Platelet Volume 9.6 9.4 - 12.3 fL [facility] Neutrophils Percent Auto 68.9 45 - 73 % [facility] Imm Gran Pct Auto 0.4 0.0 - 0.4 % [facility] Lymphocytes Percent Auto 22.8 20 - 40 % [facility] Monocytes Percent Auto 7.1 2 - 11 % [facility] Eosinophils Percent Auto 0.5 0 - 4 % [facility] Basophils Percent Auto 0.3 0 - 2 % [facility] NRBC Pct Auto 0.0 0.0 - 0.2 /100WBC [facility] Neutrophils Absolute Auto 5.4 2.0 - 8.3 x10*3/uL [facility] Imm Gran Abs Auto 0.03 0.00 - 0.03 X10*3/uL [facility] Lymphocytes Absolute Auto 1.8 1.2 - 4.9 X10*3/uL [facility] Monocytes Absolute Auto 0.6 0.1 - 1.2 X10*3/uL [facility] Eosinophils Absolute Auto 0.0 0.0 - 0.4 X10*3/uL [facility] Basophils Absolute Auto 0.0 0.0 - 0.2 X10*3/uL [facility] NRBC Abs Auto 0.000 0.0 - 0.012 X10*3/uL [facility] 04/17/2025 2:35 AM EDT 04/17/2025 3:16 AM EDT us Generic External Data Provider LAB BLOOD ORDERAB LES Final Result [facility] [address] [place] [address] [phone] documented in this encounter Visit Diagnoses Not on filedocumented in this encounter Additional Health Concerns Assessment Noted Time PHQ-9 Depression Total Score: 9 12/03/19 25 4:14 PM EDT documented as of this encounter Care Teams Lumber Chain Offbearer Relationship Specialty Start Date End Date Amber Quiroz MD [address] [place] [address] PCP - General Family Medicine 07/03/18 Fred Parker, RN [address] [place] [address] Registered Nurse Family Medicine 04/16/25 Sherry Herbert 04/16/25 documented as of this encounter
--- OUTSIDE RECORDS SUMMARY | 2025-04-19 03:45 | XMS_ITS | Encounter Summary ---
Author Organization [employer] Address [address] [facility] 7t [place] [address] Care Team Providers Care Graduate Civil Engineer Name Role Phone Amber Quiroz MD Primary Care Provider [phone] Fred Parker RN Unavailable [phone] Sherry Herbert Unavailable Reason for Visit * Reason Onset Date Comments status of oral surgery appt 11/11/2024 Encounter Details Date Type Department Care Team ([facility] st Contact Info) Description 11/11/2024 Telephone [facility] ADULT DENTAL [address] [place], [place] [phone] Francisco Mohan, TRAY [address] [place], [place] [phone] status of oral surgery appt Social History [...] on filedocumented in this encounter Care Teams Graduate Civil Engineer Relationship Specialty Start Date End Date Amber Quiroz MD [address] [place] [address] PCP - General Family Medicine 07/03/18 Fred Parker, RN [address] [place] [address] Registered Nurse Family Medicine 04/16/25 Sherry Herbert 04/16/25 documented as of this encounter
--- OUTSIDE RECORDS SUMMARY | 2025-04-19 03:45 | XMS_ITS ---
Author Organization [employer] Address [address] [facility] 7 [place] [address] Care Team Providers Care Garbage Truck Driver Name Role Phone Amber Quiroz MD Primary Care Provider [phone] Fred Parker RN Unavailable [phone] Sherry Herbert Unavailable CHW Complex Status:Outreach In Progress (Enrolling) Start date:04/16/2025 Enrollment reason:ADT Feed Overview ADT-[facility] ED 04/15/25 Case Team Name Relationship Phone Sherry Herbert(Responsible Staff) Continued Care and Services Coordination
--- OUTSIDE RECORDS SUMMARY | 2025-04-19 03:45 | XMS_ITS | Encounter Summary ---
Author Organization [employer] Address [address] [facility] [address] 7t [place] [address] Care Team Providers Care Director Building Name Role Phone Amber Quiroz MD Primary Care Provider [phone] Fred Parker RN Unavailable [phone] Sherry Herbert Unavailable Encounter Details Date Type Department Care Team (Late st Contact Info) Description 04/19/2025 Orders Only GENERIC EXTERNAL DATA DEPARTMENT Provider, [...] Procedure Name Priority Date/Time Associated Diagnosis Comments CBC WITH AUTO DIFFERENTIAL Routine 04/19/2025 3:19 AM EDT LIPASE Routine 04/19/2025 3:19 AM EDT COMPREHENSIVE METABOLIC PANEL Routine 04/19/2025 3:19 AM EDT documented in this encounter Results * Lipase (04/19/2025 3:19 AM EDT) Lipase 35 8 - 78 U/L [facility] 04/19/2025 3:19 AM EDT 04/19/2025 3:22 AM EDT us Generic External Data Provider LAB BLOOD ORDERAB LES Final Result [facility] [address] [place] [phone] * (ABNORMAL) Comprehensive Metabolic Panel (04/19/2025 3:19 AM EDT) Sodium 143 135 - 145 mmol/L [facility] Potassium 4.2 3.3 - 5.1 mmol/L [facility] Chloride 109(H) 96 - 108 mmol/L [facility] Carbon Dioxide 24 22 - 29 mmol/L [facility] Anion Gap 14 12 - 20 [facility] Urea Nitrogen (BUN) 10 9 - 16 mg/dL [facility] Creatinine, Serum 0.61 0.5 - 1.4 mg/dL [facility] Creatinine Clr Calc Pharmacy 83.7 [facility] Comment:Provided height and weight: 154.94 cm,63.503 kg.eGFR (calculated from the MDRD study equation) and eCrCl(calculated from the Cockcroft-Gault equation) are based ondifferent parameters and may not yield comparable results.If eCrCl result is absurd, please check patient'sheight/weight. Estimated Glomerular Filt Rate >60 [facility] Comment:Chronic Kidney Disea se: Estimated GFR < 60 mL/min/1.35e7Azwhxn Kidney Disease: Estimated GFR < 15 mL/min/1.73m2 Glucose 286(H) 60 - 115 mg/dL [facility] Calcium 8.4 8.4 - 10.2 mg/dL [facility] Bilirubin, Total 0.2 0.0 - 1.0 mg/dL [facility] Aspartate Amino Transferase 24 5 - 31 U/L [facility] Alanine Aminotransferase 28 0 - 31 U/L [facility] Total Protein 6.7 6.5 - 8.0 g/dL [facility] Albumin Level 4.2 3.5 - 5.0 g/dL [facility] Alkaline Phosphatase 130(H) 39 - 117 U/L [facility] 04/19/2025 3:19 AM EDT 04/19/2025 3:22 AM EDT us Generic External Data Provider LAB BLOOD ORDERAB LES Final Result [facility] [address] [place] [address] [phone] * (ABNORMAL) CBC auto differential (04/19/2025 3:19 AM EDT) White Blood Count 8.5 4.8 - 10.8 X10*3/uL [facility] Red Blood Count 4.08(L) 4.20 - 5.50 X10*6/uL [facility] Hemoglobin 10.9(L) 12.0 - 16.0 g/dl [facility] Hematocrit 34.0(L) 37.0 - 47.0 % [facility] Mean Corpuscular Volume 83.3 80.0 - 98.0 fL [facility] Mean Corpuscular Hemoglobin 26.7(L) 27.0 - 33.0 pg [facility] Mean Corpuscular HGB Conc 32.1 31.0 - 35.0 g/dl [facility] Red Cell Distribution Width 15.6 11.0 - 16.0 % [facility] Platelet Count 264 160 - 400 X10*3/uL [facility] Mean Platelet Volume 9.1(L) 9.4 - 12.3 fL [facility] Neutrophils Percent Auto 80.9(H) 45 - 73 % [facility] Imm Gran Pct Auto 0.5(H) 0.0 - 0.4 % [facility] Lymphocytes Percent Auto 16.1(L) 20 - 40 % [facility] Monocytes Percent Auto 2.1 2 - 11 % [facility] Eosinophils Percent Auto 0.2 0 - 4 % [facility] Basophils Percent Auto 0.2 0 - 2 % [facility] NRBC Pct Auto 0.0 0.0 - 0.2 /100WBC [facility] Neutrophils Absolute Auto 6.9 2.0 - 8.3 x10*3/uL [facility] Imm Gran Abs Auto 0.04(H) 0.00 - 0.03 X10*3/uL [facility] Lymphocytes Absolute Auto 1.4 1.2 - 4.9 X10*3/uL [facility] Monocytes Absolute Auto 0.2 0.1 - 1.2 X10*3/uL [facility] Eosinophils Absolute Auto 0.0 0.0 - 0.4 X10*3/uL [facility] Basophils Absolute Auto 0.0 0.0 - 0.2 X10*3/uL [facility] NRBC Abs Auto 0.000 0.0 - 0.012 X10*3/uL [facility] 04/19/2025 3:19 AM EDT 04/19/2025 3:22 AM EDT us Generic External Data Provider LAB BLOOD ORDERAB LES Final Result [facility] [address] [place] [phone] documented in this encounter Visit Diagnoses Not on filedocumented in this encounter Additional Health Concerns Assessment Noted Time PHQ-9 Depression Total Score: 9 12/03/19 25 4:14 PM EDT documented as of this encounter Care Teams Director Building Relationship Specialty Start Date End Date Amber Quiroz MD [address] [place] [address] PCP - General Family Medicine 07/03/18 Fred Parker, RN [address] [place] [address] Registered Nurse Family Medicine 04/16/25 Sherry Herbert 04/16/25 documented as of this encounter
--- OUTSIDE RECORDS SUMMARY | 2025-04-19 03:45 | XMS_ITS | Encounter Summary ---
Author Organization [employer] Address [address] [facility] 7t [place] [address] Care Team Providers Care Packing Room Inspector Name Role Phone Amber Quiroz MD Primary Care Provider [phone] Fred Parker RN Unavailable [phone] Sherry Herbert Unavailable Reason for Visit * Reason Comments Med Refill Encounter Details Date Type Department Care Team (Late st Contact Info) Description 11/18/2024 Refill [facility] MED & PEDS [address] [place], [place] [phone] Amber Quiroz MD [address] [place], [place] [phone] Nephrolithiasis Social History Tobacco Use Types Packs/Day [...] kidney documented in this encounter Care Teams Packing Room Inspector Relationship Specialty Start Date End Date Amber Quiroz MD [address] [place] [address] PCP - General Family Medicine 07/03/18 Fred Parker, RN [address] [place] [address] Registered Nurse Family Medicine 04/16/25 Sherry Herbert 04/16/25 documented as of this encounter
--- OUTSIDE RECORDS SUMMARY | 2025-04-19 03:46 | XMS_ITS | Encounter Summary ---
Author Organization [employer] Address [address] [facility] [address] [place] [address] Care Team Providers Care Cassandra Architect Name Role Phone Amber Quiroz MD Primary Care Provider [phone] Fred Parker RN Unavailable [phone] Sherry Herbert Unavailable Encounter Details Date Type Department Care Team (Late st Contact Info) Description 11/24/2023 Telephone [facility] MEDICINE [address] [place] [address] Amber Quiroz MD [address] [place] [address] Social History Tobacco Use Types [...] on filedocumented in this encounter Care Teams Cassandra Architect Relationship Specialty Start Date End Date Amber Quiroz MD [address] [place] [address] PCP - General Family Medicine 07/03/18 Fred Parker RN [address] [place] [address] Registered Nurse Family Medicine 04/16/25 Sherry Herbert 04/16/25 documented as of this encounter
--- OUTSIDE RECORDS SUMMARY | 2025-04-19 03:46 | XMS_ITS | Encounter Summary ---
Author Organization [employer] Address [address] [place] [address] 7 [place] [address] Care Team Providers Care Tenant Selector Name Role Phone Amber Quiroz MD Primary Care Provider [phone] Fred Parker RN Unavailable [phone] hSerry Herbert Unavailable Reason for Visit * Reason Comments Med Refill Encounter Details Date Type Department Care Team (Late st Contact Info) Description 11/29/2023 Refill [facility] MEDICINE [address] [place], [place] [phone] Charleen Latif MD [address] [place], [place] [phone] Nephrolithiasis Social History Tobacco Use Types Packs/Day [...] kidney documented in this encounter Care Teams Tenant Selector Relationship Specialty Start Date End Date Amber Quiroz MD [address] [place] [address] PCP - General Family Medicine 07/03/18 Fred Parker RN [address] [place] [address] Registered Nurse Family Medicine 04/16/25 Sherry Herbert 04/16/25 documented as of this encounter
--- OUTSIDE RECORDS SUMMARY | 2025-04-19 03:46 | XMS_ITS | Encounter Summary ---
Author Organization [employer] Address [address] [place] [address] 7 [place] [address] Care Team Providers Care Refrigeration Engineer Name Role Phone Amber Quiroz MD Primary Care Provider [phone] Fred Parker RN Unavailable [phone] Sherry Herbert Unavailable Encounter Details Date Type Department Care Team ([facility] st Contact Info) Description 04/05/2023 Orders Only [facility] CHC MED & PEDS [address] [place], [place] [phone] Anabell Martinez LPN Social History Tobacco Use [...] on filedocumented in this encounter Care Teams Refrigeration Engineer Relationship Specialty Start Date End Date Amber Quiroz MD [address] [place] [address] PCP - General Family Medicine 07/03/18 Fred Parker, RN [address] [place] [address] Registered Nurse Family Medicine 04/16/25 Sherry Herbert 04/16/25 documented as of this encounter
--- OUTSIDE RECORDS SUMMARY | 2025-04-19 03:46 | XMS_ITS | Encounter Summary ---
Author Organization [employer] Address [address] [facility] 7t [place] [address] Care Team Providers Care Business Process Analyst Name Role Phone Amber Quiroz MD Primary Care Provider [phone] Fred Parker RN Unavailable [phone] Sherry Herbert Unavailable Reason for Visit * Reason Onset Date Comments Med Refill 06/21/2024 Encounter Details Date Type Department Care Team (Late st Contact Info) Description 06/21/2024 Telephone [facility] MEDICINE [address] [place] [address] Amber Quiroz MD [address] [place], [place] [phone] Med Refill Social History Tobacco Use Types [...] extra strength with no relief. Please advise. [employer] checked 06/21/24. Last refill of Oxycodone 5mg 11/30/23 qty 12. * Telephone Encounter - Gemma Oliveira - 06/21/2024 10:12 AM EST TC from pt requesting medication refill. Medications needing refill : oxyCODONE (Oxy-IR) 5 MG immediate release capsule To be sent to: [facility] [place] - [address] [facility] documented in this encounter Plan of Treatment Not on file documented as of this encounter Visit Diagnoses Not on filedocumented in this encounter Care Teams Business Process Analyst Relationship Specialty Start Date End Date Amber Quiroz MD [address] [place] [phone] PCP - General Family Medicine 07/03/18 Fred Parker, D[place] [address] [place] [phone] Registered Nurse Family Medicine 04/16/25 Sherry Herbert 04/16/25 documented as of this encounter
--- OUTSIDE RECORDS SUMMARY | 2025-04-19 03:46 | XMS_ITS | Encounter Summary ---
Author Organization [employer] Address [address] [facility] 7t [place] [address] Care Team Providers Care Machine Load Clerk Name Role Phone Amber Quiroz MD Primary Care Provider [phone] Fred Parker RN Unavailable [phone] Sherry Herbert Unavailable Encounter Details Date Type Department Care Team (Late st Contact Info) Description 12/14/2024 Orders Only [facility] MEDICINE [address] [place], [place] [phone] Amber Quiroz MD [address] [place] [address] Hyperglycemia (Primary Dx); Flank pain; [...] documented as of this encounter Care Teams Machine Load Clerk Relationship Specialty Start Date End Date Amber Quiroz MD [address] [place] [address] PCP - General Family Medicine 07/03/18 Fred Parker RN [address] [place] [phone] Registered Nurse Family Medicine 04/16/25 Sherry Herbert 04/16/25 documented as of this encounter
--- OUTSIDE RECORDS SUMMARY | 2025-04-19 03:46 | XMS_ITS | Encounter Summary ---
Author Organization [employer] Address [address] [facility] 7t [place] [address] Care Team Providers Care Dairy Manufacturing Technologist Name Role Phone Amber Quiroz MD Primary Care Provider [phone] Fred Parker RN Unavailable [phone] Sherry Herbert Unavailable Reason for Visit * Reason Onset Date Comments Appointment Request 11/22/2023 Encounter Details Date Type Department Care Team (Late st Contact Info) Description 11/22/2023 Telephone [facility] MEDICINE [address] [place] [address] Amber Quiroz MD [address] [place], [place] [phone] Appointment Request Social History Tobacco Use Types [...] due tosleep difficulty. Please contact pt at [phone]. documented in this encounter Plan of Treatment Not on file documented as of this encounter Visit Diagnoses Not on filedocumented in this encounter Care Teams Dairy Manufacturing Technologist Relationship Specialty Start Date End Date Amber Quiroz MD [address] [place] [address] PCP - General Family Medicine 07/03/18 Fred Parker, DOR[place] [address] [place] [phone] Registered Nurse Family Medicine 04/16/25 Sherry Herbert 04/16/25 documented as of this encounter
--- OUTSIDE RECORDS SUMMARY | 2025-04-19 03:46 | XMS_ITS | Encounter Summary ---
Author Organization [employer] Address [address] [facility] 7t [place] [address] Care Team Providers Care Photograph Mounter Name Role Phone Amber Quiroz MD Primary Care Provider [phone] Fred Parker RN Unavailable Sherry Herbert Unavailable Reason for Visit * Reason Comments Med Refill Encounter Details Date Type Department Care Team (Late st Contact Info) Description 06/01/2023 Refill [facility] MEDICINE [address] [place], [place] [phone] Amber Quiroz MD 230 [place], [place] [phone] Pain Social History Tobacco Use Types Packs/Day [...] pain documented in this encounter Care Teams Photograph Mounter Relationship Specialty Start Date End Date Amber Quiroz MD [address] [place] [phone] PCP - General Family Medicine 07/03/18 Fred Parker, DOR[place] [address] [place] [phone] Registered Nurse Family Medicine 04/16/25 Sherry Herbert 04/16/25 documented as of this encounter
--- OUTSIDE RECORDS SUMMARY | 2025-04-19 03:46 | XMS_ITS | Encounter Summary ---
Author Organization [employer] Address [address] [place] [address] 7 [place] [address] Care Team Providers Care Cotton Ginner Helper Name Role Phone Amber Quiroz MD Primary Care Provider [phone] Fred Parker RN Unavailable [phone] Sherry Herbert Unavailable Encounter Details Date Type Department Care Team (Late st Contact Info) Description 12/12/2022 Orders Only [facility] MEDICINE [address] [place], [place] [phone] Anabell Martinez LPN Social History Tobacco Use [...] on filedocumented in this encounter Care Teams Cotton Ginner Helper Relationship Specialty Start Date End Date Amber Quiroz MD [address] [place], [place] [phone] PCP - General Family Medicine 07/03/18 Fred Parker, RN [address] [place] [phone] Registered Nurse Family Medicine 04/16/25 Sherry Herbert 04/16/25 documented as of this encounter
--- OUTSIDE RECORDS SUMMARY | 2025-04-19 03:46 | XMS_ITS | Encounter Summary ---
Author Organization [employer] Address [address] [facility] 7t [place] [address] Care Team Providers Care Fruit And Vegetable Parer Name Role Phone Amber Quiroz MD Primary Care Provider [phone] Fred Parker RN Unavailable [phone] Sherry Herbert Unavailable Encounter Details Date Type Department Care Team (Late st Contact Info) Description 07/28/2022 Orders Only [facility] MEDICINE 230 [place], [place] [phone] Anabell Martinez LPN Social History Tobacco Use [...] (08/02/2022 12:29 AM EST) Color Urine Yellow [facility] Appearance Urine Turbid [facility] PH 6.5 5.0 - 9.0 [facility] Glucose Urine UA Negative Negative mg/dL [facility] Urine Blood Trace(A) Negative [facility] Specific [place] - Urine 1.020 1.005 - 1.025 [facility] Urine Protein 30 (1+)(A) Neg-Trace mg/dL [facility] Urine Ketones Negative Negative mg/dL [facility] Nitrite Urine Negative Negative [facility] Leukocyte Esterase Urine Large (3+)(A) Negative [facility] RBC Urine 0-2 0 - 2 /HPF [facility] Urine WBC >50(A) 0 - 5 /HPF [facility] Urine Squamous Epithelial Cell 6-10 0 - 2 /HPF [facility] Urine Bacteria 1+ None Seen [facility] Hyaline Casts, Urine 3-5 0 - 2 /LPF [facility] 08/02/2022 12:2 9 AM EST 08/02/2022 12:31 AM EST Narrative [facility] - 08/02/2022 12:50 AM EST Urine, Clean Catch us [facility] External Provider LAB URI NE ORDERABLES Final Result [facility] [address] [place] [phone] * SARS-CoV-2 RNA, Influenza A/B, and RSV RNA, Ql NAAT (08/02/2022 12:17 AM EST) Influenza A PCR NEGATIVE Negative [facility] Influenza B PCR NEGATIVE Negative [facility] Resp Syncy Virus RNA Qual PCR NEGATIVE Negative [facility] SARS COV2 PCR NEGATIVE Negative [facility] SARS/Flu/RSV Note See Note [facility] Comment:All test results mus [...] use by authorized laboratories.Testing performed on the [employer] GeneXpert utilizingreal-time RT-PCR.All SARS CoV2 and positive influenza A/B results arereported to [facility]. 08/02/2022 12:1 7 AM EST 08/02/2022 12:19 AM EST us [facility] Exter nal Provider LAB MICROBIOLOGY - GENERAL ORDERABLES Final Result [facility] [address] [place] [phone] * (ABNORMAL) Basic Metabolic Panel (08/02/2022 12:17 AM EST) Sodium 140 135 - 145 mmol/L [facility] Potassium 3.9 3.3 - 5.1 mmol/L [facility] Chloride 105 96 - 108 mmol/L [facility] Carbon Dioxide 24 22 - 29 mmol/L [facility] Anion Gap 15 12 - 20 [facility] Urea Nitrogen (BUN) 14 9 - 16 mg/dL [facility] Creatinine, Serum 0.75 0.5 - 1.4 mg/dL [facility] Creatinine Clr Calc Pharmacy 71.4 [facility] Comment:Provided height and weight: 162.56 cm,63.503 kg.eGFR (calculated from the MDRD study equation) and eCrCl(calculated from the Cockcroft-Gault equation) are based ondifferent parameters and may not yield comparable results.If eCrCl result is absurd, please check patient'sheight/weight. Estimated Glomerular Filt Rate >60 [facility] Comment:NOTE: For -Am erican individuals, multiply the result by 1.210.Chronic Kidney Disease: Estimated GFR < 60 mL/min/1.99e5Bczakn Kidney Disease: Estimated GFR < 15 mL/min/1.73m2 Glucose 119(H) 60 - 115 mg/dL [facility] Calcium 9.0 8.4 - 10.2 mg/dL [facility] 08/02/2022 12:1 7 AM EST 08/02/2022 12:19 AM EST [facility] External Provider LAB BLO OD ORDERABLES Final Result [facility] [address] [place] [phone] * (ABNORMAL) CBC auto differential (08/02/2022 12:17 AM EST) White Blood Count 6.4 4.8 - 10.8 X10*3/uL [facility] Red Blood Count 3.96(L) 4.20 - 5.50 X10*6/uL [facility] Hemoglobin 10.8(L) 12.0 - 16.0 g/dl [facility] Hematocrit 33.0(L) 37.0 - 47.0 % [facility] Mean Corpuscular Volume 83.3 80.0 - 98.0 fL [facility] Mean Corpuscular Hemoglobin 27.3 27.0 - 33.0 pg [facility] Mean Corpuscular HGB Conc 32.7 31.0 - 35.0 g/dl [facility] Red Cell Distribution Width 14.2 11.0 - 16.0 % [facility] Platelet Count 202 160 - 400 X10*3/uL [facility] Mean Platelet Volume 9.2(L) 9.4 - 12.3 fL [facility] Neutrophils Percent Auto 68.5 45 - 73 % [facility] Imm Gran Pct Auto 0.2 0.0 - 0.4 % [facility] Lymphocytes Percent Auto 21.9 20 - 40 % [facility] Monocytes Percent Auto 8.6 2 - 11 % [facility] Eosinophils Percent Auto 0.5 0 - 4 % [facility] Basophils Percent Auto 0.3 0 - 2 % [facility] NRBC Pct Auto 0.0 0.0 - 0.2 /100WBC [facility] Neutrophils Absolute Auto 4.4 2.0 - 8.3 x10*3/uL [facility] Imm Gran Abs Auto 0.01 0.00 - 0.03 X10*3/uL [facility] Lymphocytes Absolute Auto 1.4 1.2 - 4.9 X10*3/uL [facility] Monocytes Absolute Auto 0.6 0.1 - 1.2 X10*3/uL [facility] Eosinophils Absolute Auto 0.0 0.0 - 0.4 X10*3/uL [facility] Basophils Absolute Auto 0.0 0.0 - 0.2 X10*3/uL [facility] NRBC Abs Auto 0.000 0.0 - 0.012 X10*3/uL [facility] 08/02/2022 12:1 7 AM EST 08/02/2022 12:19 AM EST us [facility] External Provider LAB BLO OD ORDERABLES Final Result [facility] [address] [place] [phone] * Culture, Urine, Routine (08/02/2022 12:00 AM EST) 08/02/2022 08/02/2022 7:3 1 AM EST Comment:UACC Narrative [facility] - 08/03/2022 9:19 AM EST Urine Culture No growth. Specimen Source: Urine clean catch us [facility] Exter nal Provider LAB MICROBIOLOGY - GENERAL ORDERABLES Final Result [facility] [address] [place] [phone] documented in this encounter Visit Diagnoses Not on filedocumented in this encounter Care Teams Fruit And Vegetable Parer Relationship Specialty Start Date End Date Amber Quiroz MD [address] [place] [phone] PCP - General Family Medicine 07/03/18 Fred Parker RN [address] [place] [phone] Registered Nurse Family Medicine 04/16/25 Sherry Herbert 04/16/25 documented as of this encounter
--- OUTSIDE RECORDS SUMMARY | 2025-04-19 03:46 | XMS_ITS | Clinical Summary ---
Author Organization [employer] Address [address] [facility] 7t [place] [address] Care Team Providers Care [place] Machine Operator Name Role Phone Amber Quiroz MD Primary Care Provider [phone] Fred Parker RN Unavailable [phone] Sherry Herbert Unavailable Allergies Active Allergy [...] mouth. 10/14/19 25 Active Blood Pressure Monitor [facility] Check BP daily 1 each 11/13/19 25 [...] dependence. Patient states she is going to [place] tomorrow for about 1 week. 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 - Seen by urologist, [facility] 10/08/24 - Pt states she has a follow up appointment tomorrow (? Pt might be going to [place] tomorrow as well). - Discussed about my [...] of lung 04/22/2013 05/04/2023 Asthma with COPD ([facility]) 10/22/2012 Lung mass 10/22/2012 05/04/2023 Anemia 06/05/2012 [...] Encounters Date Type Department Care Team Description 04/19/2025 Orders Only GENERIC EXTERNAL DATA DEPARTMENT Provider, Generic External Data 04/18/2025 Patient Outreach [address] [address] Amber Quiroz MD Care Coordination ([address] Sherry Herbert telephone call outreach) 04/17/2025 Orders Only GENERIC EXTERNAL DATA DEPARTMENT Provider, Generic External Data 04/16/2025 Patient Outreach [facility] [address] [place] [address] Amber Quiroz MD Care Coordination (C3 [facility] Sherry Herbert telephone call outreach ) 04/16/2025 Patient Outreach [facility] [address] [place] [address] Amber Quiroz MD Care Coordination (C3- chart review) 04/16/2025 Patient Outreach [facility] [address] [place] [address] Amber Quiroz MD 04/11/2025 Telephone [facility] [address] [place] [address] Rachelle Lucero RN 04/04/2025 Refill [facility] [address] [place], [place] [phone] Amber Quiroz MD Moderate persistent asthma without complication; Flank pain; History of total knee replacement, unspecified laterality; Primary osteoarthritis of left knee; Loin pain hematuria syndrome; Chronic back pain, unspecified back location, unspecified back pain laterality 03/16/2025 Refill [facility] [address] [place] [address] Amber Quiroz MD 03/11/2025 Patient Outreach [address] [address] Amber Quiroz MD Care Coordination (SDOH f/u) 03/11/[address] [address] Amber Quiroz MD Care Management (C3CM- f/u call lvm) 03/08/2025 Orders Only GENERIC EXTERNAL DATA DEPARTMENT Provider, Generic External Data 03/07/2025 Orders Only [address] [address] Amber Quiroz MD Flank pain (Primary Dx); History of total knee replacement, unspecified laterality; Primary osteoarthritis of left knee; Loin pain hematuria syndrome; Chronic back pain, unspecified back location, unspecified back pain laterality 03/07/2025 Travel 03/07/2025 Telephone [facility] [address] [place] [address] Rachelle Lucero, RN GAS TRANSFER OPERATOR 03/06/2025 Refill [facility] [address] [place] [address] Amber Quiroz MD Flank pain 02/24/[address] [address] Amber Quiroz MD Care Management (C3CM- f/u call lvm) 02/12/[address] [address] Amber Quiroz MD No Show (Pt no show sick onsite/) 02/11/[address] [address] Cheryl Larkin, CASING BLOWER Follow-up 02/10/2025 Refill [facility] [address] [place] [address] Rachelle Lucero RN Flank pain (Primary Dx) 02/10/2025 Telephone [facility] [address] [place], [place] [phone] Amber Quiroz MD Med Refill 02/03/[address] [address] Amber Quiroz MD Allergic rhinitis, unspecified seasonality, unspecified trigger 02/02/2025 Orders Only GENERIC EXTERNAL DATA DEPARTMENT Provider, Generic External Data 01/24/2025 Patient Outreach [address] [address] Amber Quiroz MD Care Coordination (SDOH f/u) 01/24/[address] [address] Amber Quiroz MD Care Management (C3CM- f/u call) 01/23/2025 Refill [facility] [address] [place], [place] [phone] Amber Quiroz MD Moderate persistent asthma without complication 01/17/2025 Orders Only [address] [address] Amber Quiroz MD Nephrolithiasis (Primary Dx); Loin pain hematuria syndrome; Recurrent urinary tract infection 01/17/[address] [address] Amber Quiroz MD Care Management (C3CM- f/u call) from Last 3 Months Immunizations [...] Procedure Name Priority Date/Time Associated Diagnosis Comments LIPASE Routine 04/19/2025 3:19 AM EDT COMPREHENSIVE METABOLIC PANEL Routine 04/19/2025 3:19 AM EDT CBC WITH AUTO DIFFERENTIAL Routine 04/19/2025 3:19 AM EDT CULTURE, URINE, ROUTINE Routine 04/17/2025 8:56 AM EDT URINALYSIS, COMPLETE, WITH REFLEX TO CULTURE Routine 04/17/2025 3:16 AM EDT COMPREHENSIVE METABOLIC PANEL Routine 04/17/2025 2:35 AM EDT CBC WITH AUTO DIFFERENTIAL Routine 04/17/2025 2:35 AM EDT URINALYSIS, COMPLETE, WITH REFLEX TO [...] Relevant to Health Maintenance Results * (ABNORMAL) CBC auto differential (04/19/2025 3:19 AM EDT) Only the most recent of3 resultswithin the time period is included. White Blood Count 8.5 4.8 - 10.8 X10*3/uL [facility] Red Blood Count 4.08(L) 4.20 - 5.50 X10*6/uL [facility] Hemoglobin 10.9(L) 12.0 - 16.0 g/dl [facility] Hematocrit 34.0(L) 37.0 - 47.0 % [facility] Mean Corpuscular Volume 83.3 80.0 - 98.0 fL [facility] Mean Corpuscular Hemoglobin 26.7(L) 27.0 - 33.0 pg [facility] Mean Corpuscular HGB Conc 32.1 31.0 - 35.0 g/dl [facility] Red Cell Distribution Width 15.6 11.0 - 16.0 % [facility] Platelet Count 264 160 - 400 X10*3/uL [facility] Mean Platelet Volume 9.1(L) 9.4 - 12.3 fL [facility] Neutrophils Percent Auto 80.9(H) 45 - 73 % [facility] Imm Gran Pct Auto 0.5(H) 0.0 - 0.4 % [facility] Lymphocytes Percent Auto 16.1(L) 20 - 40 % [facility] Monocytes Percent Auto 2.1 2 - 11 % [facility] Eosinophils Percent Auto 0.2 0 - 4 % [facility] Basophils Percent Auto 0.2 0 - 2 % [facility] NRBC Pct Auto 0.0 0.0 - 0.2 /100WBC [facility] Neutrophils Absolute Auto 6.9 2.0 - 8.3 x10*3/uL [facility] Imm Gran Abs Auto 0.04(H) 0.00 - 0.03 X10*3/uL [facility] Lymphocytes Absolute Auto 1.4 1.2 - 4.9 X10*3/uL [facility] Monocytes Absolute Auto 0.2 0.1 - 1.2 X10*3/uL [facility] Eosinophils Absolute Auto 0.0 0.0 - 0.4 X10*3/uL [facility] Basophils Absolute Auto 0.0 0.0 - 0.2 X10*3/uL [facility] NRBC Abs Auto 0.000 0.0 - 0.012 X10*3/uL [facility] 04/19/2025 3:19 AM EDT 04/19/2025 3:22 AM EDT Generic External Data Provider LAB BLOOD ORDERAB LES Final Result Performing Organization Address [facility]/ZIP Co de Phone Number [facility] [address] [place] [address] [phone] * Lipase (04/19/2025 3:19 AM EDT) Pathologist [facility] Lipase 35 8 - 78 U/L [facility] 04/19/2025 3:19 AM EDT 04/19/2025 3:22 AM EDT Generic External Data Provider LAB BLOOD ORDERAB LES Final Result Performing Organization Address [facility] de Phone Number [facility] [address] [place] [phone] * (ABNORMAL) Comprehensive Metabolic Panel (04/19/2025 3:19 AM EDT) Only the most recent of3 resultswithin the time period is included. Sodium 143 135 - 145 mmol/L [facility] Potassium 4.2 3.3 - 5.1 mmol/L [facility] Chloride 109(H) 96 - 108 mmol/L [facility] Carbon Dioxide 24 22 - 29 mmol/L [facility] Anion Gap 14 12 - 20 [facility] Urea Nitrogen (BUN) 10 9 - 16 mg/dL [facility] Creatinine, Serum 0.61 0.5 - 1.4 mg/dL [facility] Creatinine Clr Calc Pharmacy 83.7 [facility] Comment:Provided height and weight: 154.94 cm,63.503 kg.eGFR (calculated from the MDRD study equation) and eCrCl(calculated from the Cockcroft-Gault equation) are based ondifferent parameters and may not yield comparable results.If eCrCl result is absurd, please check patient'sheight/weight. Estimated Glomerular Filt Rate >60 [facility] Comment:Chronic Kidney Disea se: Estimated GFR < 60 mL/min/1.35s9Drgect Kidney Disease: Estimated GFR < 15 mL/min/1.73m2 Glucose 286(H) 60 - 115 mg/dL [facility] Calcium 8.4 8.4 - 10.2 mg/dL [facility] Bilirubin, Total 0.2 0.0 - 1.0 mg/dL [facility] Aspartate Amino Transferase 24 5 - 31 U/L [facility] Alanine Aminotransferase 28 0 - 31 U/L [facility] Total Protein 6.7 6.5 - 8.0 g/dL [facility] Albumin Level 4.2 3.5 - 5.0 g/dL [facility] Alkaline Phosphatase 130(H) 39 - 117 U/L [facility] 04/19/2025 3:19 AM EDT 04/19/2025 3:22 AM EDT us Generic External Data Provider LAB BLOOD ORDERAB LES Final Result [facility] [address] [place] [phone] * Culture, Urine, Routine (04/17/2025 8:56 AM EDT) Urine Urine specimen obtained by clean catch procedure / Unknown 04/17/2025 8:56 AM EDT 04/17/2025 8:56 AM EDT Comment:UACC Narrative [facility] - 04/18/2025 10:33 AM EDT Urine Culture No growth. Specimen Source: Urine clean catch us Generic External Data Provider LAB MICROBIOLOGY - GENERAL ORDERABLES Final Result Performing Organization Address City/[facility]/ZIP Co de Phone Number [facility] [address] [place] [address] [phone] * (ABNORMAL) Urinalysis, Complete, with Reflex to Culture (04/17/2025 3:16 AM EDT) Only the most recent of2 resultswithin the time period is included. Color Urine Yellow [facility] Appearance Urine Cloudy [facility] PH 6.5 5.0 - 9.0 [facility] Glucose Urine UA Negative Negative mg/dL [facility] Urine Blood Moderate (2+)(A) Negative [facility] Specific [place] - Urine <=1.005 1.005 - 1.025 [facility] Urine Protein Negative Neg-Trace mg/dL [facility] Urine Ketones Negative Negative mg/dL [facility] Nitrite Urine Negative Negative [facility] Leukocyte Esterase Urine Large (3+)(A) Negative [facility] RBC Urine 3-5(A) 0 - 2 /HPF [facility] Urine WBC 6-10 0 - 5 /HPF [facility] Urine Squamous Epithelial Cell 0-2 0 - 2 /HPF [facility] Urine Bacteria 3+ None Seen [facility] Hyaline Casts, Urine 0-2 0 - 2 /LPF [facility] 04/17/2025 3:16 AM EDT 04/17/2025 3:20 AM EDT Narrative [facility] - 04/17/2025 4:12 AM EDT [id number], Clean Catch us Generic External Data Provider LAB URINE ORDERAB LES Final Result Performing Organization Address [facility]/ZIP Co de Phone Number [facility] [address] [place] [address] [phone] * CT Abdomen Pelvis w/o Contrast (03/08/2025 1:06 PM EDT) Anatomical Region Laterality Modality Body, Pelvis, Abdomen Computed T omography 03/08/2025 1:06 PM EDT Narrative 03/08/2025 1:08 PM EDT [place] [address] CT Scan Report Signed Patient: John Marquez MR#: [id number] [id number] : 1965 Acct:[id number] Age/Sex: 59 / F ADM Date: 03/08/25 Loc: HO.ED Attending Dr: Ordering Physician: Kaia Hamilton Date of Service: 03/08/25 Procedure(s): CT abdomen pelvis wo IV con Accession Number(s): [id number] cc: Kaia Hamilton; Amber Quiroz MD Report Number: [id number]: Total DLP = 449.00 mGy-cm Reason for [...] Paredes MD in OV> 03/08/25 1307 DD/ 130 TD/TT: 03/08/25 130 Pyrometallurgical Engineer: Procedure Note Donotuseinterpreter, Image - 03/08/[address] [place] [address] [address] Scan Report Signed Patient: Heidi Marqeuz#: [id number] : 1965Acct:[id number] Age/Sex: 59 / FADM Date: 03/08/25 Loc: HO.ED Attending Dr: Ordering Physician: Kaia Hamilton Date of Service: 03/08/25 Procedure(s): CT abdomen pelvis wo IV con Accession Number(s): [id number] cc: Kaia Hamilton; Amber Quiroz MD Report Number: [id number]: Total DLP = 449.00 mGy-cm Reason for [...] 03/08/25 1307 DD/ 1306 TD/TT: 03/08/25 1306 Pyrometallurgical Engineer: [facility] External Provider IMG CT PROCEDURES Final Result * (ABNORMAL) Lipid Panel with Reflex to Direct LDL (09/03/2024 4:26 PM EST) Triglycerides 112 <150 mg/dL [facility] Comment:Desirable Triglyceri de: less than 150 mg/dLBorderline High Triglyceride 150-199 mg/dLHigh Triglyceride: 200-499 mg/dLVery High Triglyceride: greater than or equal to 5OO mg/dL Cholesterol 183 <200 mg/dL [facility] Comment:Desirable Cholestero l: less than 200 mg/dLBorderline High Cholesterol: 200-239 mg/dLHigh Cholesterol: greater than 239 mg/dL LDL Cholesterol Calculated 112(H) <100 mg/dL [facility] Comment:Desirable LDL: less than 100 [...] MD LAB BLOOD ORDERABLES Final Resul t [facility] [address] [place] [phone] * (ABNORMAL) THINPREP TIS PAP AND HPV mRNA E6/E7 WITH REFLEX TO HPV 16,18/45 (07/30/2021 10:17 AM EST) Clinical Information: [facility] COMMENT SEE COMMENT [facility]OUNDAT[facility] [...] has been evaluated with computer assisted technology. [facility] Programmable Logic Controller Assembler: SEE COMMENT [facility] Comment: [facility], CT(ASCP) CT screening location: [place] [address] General Categorization: EPITHELIAL CELL ABNORMALITY(A ) [facility] HPV nRNA E6/E7 Not Detected Not Detected [facility] Comment: Methodology: Plane Tender-Mediated Amplification This assay detects E6/E7 viral messenger RNA (mRNA) from 14 high-risk HPV types (16,18,31,33,35,39,45,51,52,56,58,59,66,68). The analytical performance characteristics of this assay have been determined by [employer]. The modifications have not been cleared or approved by the FDA. This assay has been validated pursuant to the CLIA regulations and is used for clinical purposes. For additional information, please refer to http://education.[employer]/faq/NAA725b4 (This link if provided for information/ educational purposes only.) Infection Shift in vaginal geovanny suggestive of bacterial vaginosis. [facility] Interpretation/Res ult: SEE COMMENT(A) [facility] Comment: Atypical Squamous Cells of Undetermined Significance (ASC-US) Rare cells are approaching low grade dysplasia. LMP: NONE GIVEN [facility] PATHOLOGIST: SEE COMMENT [facility]OUND [facility] Comment: Jennifer Branch M.D., Board Certified in Anatomic and Clinical Pathology (electronic signature) Consulting Pathologist [facility] Pathology [phone] Prev. BX: NONE GIVEN [facility] Prev. PAP: NONE GIVEN [facility] ON [facility] SOURCE: None given [facility] Statement Of Adequacy: SEE COMMENT [facility] Comment: Satisfactory for evaluation. Endocervical/transformation zone component present. 07/30/2021 10:1 7 AM EST us Saleem Maier MD LAB PATHOLOGY ORDERABLES Final R esult [facility] [address] [place] [id number], from Last 3 Months or Most Recently Relevant to Health Maintenance Insurance [facility] C3 DENTAL-[facility] MEDICAID STAND ADULT Care Teams [place] Machine Operator Relationship Specialty Start Date End Date Amber Quiroz MD [address] [place] [address] PCP - General Family Medicine 07/03/18 Fred Parker, DOR[place] [address] [place] [address] Registered Nurse Family Medicine 04/16/25 Sherry Herbert 04/16/25
--- OUTSIDE RECORDS SUMMARY | 2025-04-19 03:46 | XMS_ITS | Encounter Summary ---
Author Organization [employer] Address [address] [facility] 7 [place] [address] Care Team Providers Care Fish Header Name Role Phone Amber Quiroz MD Primary Care Provider Fred Parker RN Unavailable [phone] Sherry Herbert Unavailable Encounter Details Date Type Department Care Team (Late st Contact Info) Description 11/16/2022 Abstract [facility] [address] [place], [place] [phone] Amber Quiroz MD [address] [place], [place] [phone] Social History Tobacco Use Types Packs/Day Years [...] on filedocumented in this encounter Care Teams Fish Header Relationship Specialty Start Date End Date Amber Quiroz MD [address] [place], [place] [phone] PCP - General Family Medicine 07/03/18 Fred Parker, DOROTA [address] [place] [address] [place] Call [phone] Registered Nurse Family Medicine 04/16/25 Sherry Herbert 04/16/25 documented as of this encounter
--- OUTSIDE RECORDS SUMMARY | 2025-04-19 03:46 | XMS_ITS | Encounter Summary ---
Author Organization [employer] Address [address] [facility] 7 [place] [address] Care Team Providers Care Stemhole Borer Name Role Phone Amber Quiroz MD Primary Care Provider [phone] Fred Parker RN Unavailable [phone] Sherry Herbert Unavailable Reason for Visit * Reason Comments Med Refill Encounter Details Date Type Department Care Team (Late st Contact Info) Description 04/26/2023 Refill [facility] [address] [place], [place] [phone] Alan Partida MD [address] [place], [place] [phone] Moderate persistent asthma without complication; Nausea Social [...] alone documented in this encounter Care Teams Stemhole Borer Relationship Specialty Start Date End Date Amber Quiroz MD [address] [place], [place] [phone] PCP - General Family Medicine 07/03/18 Fred Parker, RN [address] [place] [address] Registered Nurse Family Medicine 04/16/25 Sherry Herbert 04/16/25 documented as of this encounter
--- OUTSIDE RECORDS SUMMARY | 2025-04-19 03:46 | XMS_ITS | Encounter Summary ---
Author Organization [employer] Address [address] [facility] 7t [place] [address] Care Team Providers Care Agitator Operator Name Role Phone Amber Quiroz MD Primary Care Provider [phone] Fred Parker RN Unavailable [phone] Sherry Herbert Unavailable Reason for Visit * Reason Onset Date Comments Nurse Triage 01/11/2024 Encounter Details Date Type Department Care Team (Late st Contact Info) Description 01/11/2024 Telephone [facility] [address] [place] [address] Amber Quiroz MD [address] [place], [place] [phone] Nurse Triage Social History Tobacco Use Types [...] [facility]. * Telephone Encounter - Lacy Sahni LPN - 01/11/2024 3:31 PM EDT Triage in process. Patient requesting pain medication for kidney stone pain in [facility] 01/07/24-01/08/24. Patient not seeing any [...] worse Override Notes: Seen and treated at [facility] known kidney stones wants something [...] on filedocumented in this encounter Care Teams Agitator Operator Relationship Specialty Start Date End Date Amber Quiroz MD [address] [place] [address] PCP - General Family Medicine 07/03/18 Fred Parker, RN [address] [place] [address] Registered Nurse Family Medicine 04/16/25 Sherry Herbert 04/16/25 documented as of this encounter
--- OUTSIDE RECORDS SUMMARY | 2025-04-19 03:46 | XMS_ITS | Encounter Summary ---
Author Organization [employer] Address [address] [facility] 7t [place] [address] Care Team Providers Care Beach Attendant Name Role Phone Amber Quiroz MD Primary Care Provider [phone] Fred Parker RN Unavailable [phone] Sherry Herbert Unavailable Reason for Visit * Reason Comments Med Refill Encounter Details Date Type Department Care Team (Late st Contact Info) Description 11/12/2024 Refill [facility] [address] [place], [place] [phone] Amber Quiroz MD [address] [place], [place] [phone] Moderate persistent asthma without complication Social History [...] complication documented in this encounter Care Teams Beach Attendant Relationship Specialty Start Date End Date Amber Quiroz MD [address] [place] [address] PCP - General Family Medicine 07/03/18 Fred Parker, RN [address] [place] [address] Registered Nurse Family Medicine 04/16/25 Sherry Herbert 04/16/25 documented as of this encounter
--- OUTSIDE RECORDS SUMMARY | 2025-04-19 03:46 | XMS_ITS | Encounter Summary ---
Author Organization [facility] Address [address] [facility] 7t [place] [address] Care Team Providers Care Predatory Animal Exterminator Name Role Phone Amber Quiroz MD Primary Care Provider [phone] Fred Parker RN Unavailable [phone] Sherry Herbert Unavailable Encounter Details Date Type Department Care Team (Late st Contact Info) Description 09/04/2024 Orders Only [facility] MED[facility]INE [address] [place], [place] [phone] Amber Quiroz MD [address] [place] [address] Routine screening for STI (sexually [...] disease documented in this encounter Care Teams Predatory Animal Exterminator Relationship Specialty Start Date End Date Amber Quiroz MD [address] [place] [address] PCP - General Family Medicine 07/03/18 Fred Parker RN [address] [place] [address], [place] [address] Registered Nurse Family Medicine 04/16/25 Sherry Herbert 04/16/25 documented as of this encounter
--- OUTSIDE RECORDS SUMMARY | 2025-04-19 03:46 | XMS_ITS | Encounter Summary ---
Author Organization [employer] Address [address] [facility] 7t [place] [address] Care Team Providers Care Crusher And Blender Operator Name Role Phone Amber Quiroz MD Primary Care Provider [phone] Fred Parker RN Unavailable [phone] Sherry Herbert Unavailable Encounter Details Date Type Department Care Team (Late st Contact Info) Description 04/16/2025 Patient Outreach [facility] MED[facility]INE [address] [place], [place] [phone] Amber Quiroz MD [address] [place], [place] [phone] Social History Tobacco Use Types Packs/Day Years [...] documented as of this encounter Care Teams Crusher And Blender Operator Relationship Specialty Start Date End Date Amber Quiroz MD [address] [place] [address] PCP - General Family Medicine 07/03/18 Fred Parker, RN [address] [place] [address] Registered Nurse Family Medicine 04/16/25 Sherry Herbert 04/16/25 documented as of this encounter
--- OUTSIDE RECORDS SUMMARY | 2025-04-19 03:46 | XMS_ITS | Encounter Summary ---
Author Organization [employer] Address 75 [facility] 7t [place] [address] Care Team Providers Care Bilingual Teacher Assistant Name Role Phone Amber Quiroz MD Primary Care Provider [phone] Fred Parker RN Unavailable [phone] Sherry Herbert Unavailable Reason for Visit * Reason Onset Date Comments Med Refill 01/10/2024 Encounter Details Date Type Department Care Team (Late st Contact Info) Description 01/10/2024 Telephone [facility]INE [address] [place] [address] Amber Quiroz MD [address] [place], [place] [phone] Med Refill Social History Tobacco Use Types [...] immediate release tablet To be sent to: [facility] - [place], [place] - [address] [place] [address] documented in this encounter Plan of Treatment Not on file documented as of this encounter Visit Diagnoses Not on filedocumented in this encounter Care Teams Bilingual Teacher Assistant Relationship Specialty Start Date End Date Amber Quiroz MD [address] [place] [address] PCP - General Family Medicine 07/03/18 Fred Parker RN [address] [place] [address] Registered Nurse Family Medicine 04/16/25 Sherry Herbert 04/16/25 documented as of this encounter
--- OUTSIDE RECORDS SUMMARY | 2025-04-19 03:46 | XMS_ITS | Encounter Summary ---
Author Organization [employer] Address 75 [facility] 7t [place] [address] Care Team Providers Care Pastoral Ministries Professor Name Role Phone Amber Quiroz MD Primary Care Provider [phone] Fred Parker RN Unavailable [phone] Sherry Herbert Unavailable Encounter Details Date Type Department Care Team (Late st Contact Info) Description 03/07/2025 Orders Only [facility] 230 [place], [place] [phone] Amber Quiroz MD 230 [place], [place] [phone] Flank pain (Primary Dx); History of total [...] PM EDT Narrative 03/08/2025 1:08 PM EDT [address] [address] [address] Scan Report Signed Patient: John Marquez MR#: [id number] : 1965 Acct:[id number] Age/Sex: 59 / F ADM Date: 03/08/25 Loc: HO.ED Attending Dr: Ordering Physician: Kaia Hamilton Date of Service: 03/08/25 Procedure(s): CT abdomen pelvis wo IV con Accession Number(s): [id number] cc: Kaia Hamilton; Amber Quiroz MD Report Number: [id number]: Total DLP = 449.00 mGy-cm Reason for Exam: abbd pain, flank pain CLINICAL HISTORY: abbd pain, flank pain CT abdomen and pelvis without contrast Comparison: CT/ND/SR - CT ABDOMEN PELVIS WO IV CON [...] 03/08/25 1307 DD/ 1306 TD/TT: 03/08/25 1306 Or Assistant: Procedure Note Donotuseinterpreter, Image - 03/08/[address] [place] [address] [address] Scan Report Signed Patient: John MarquezMR#: [id number] : 1965Acct:[id number] Age/Sex: 59 / FADM Date: 03/08/25 Loc: .ED Attending Dr: Ordering Physician: Kaia Hamilton Date of Service: 03/08/25 Procedure(s): CT abdomen pelvis wo IV con Accession Number(s): [id number] cc: Kaai Hamilton; Amber Quiroz MD Report Number: [id number]: Total DLP = 449.00 mGy-cm Reason for Exam: abbd pain, flank pain CLINICAL HISTORY: abbd pain, flank pain CT abdomen and pelvis without contrast Comparison: CT/ND/SR - CT ABDOMEN PELVIS WO IV CON [...] 03/08/25 1307 DD/ 1306 TD/TT: 03/08/25 1306 Or Assistant: [facility] External Provider IMG CT PROCEDURES Final [...] documented as of this encounter Care Teams Pastoral Ministries Professor Relationship Specialty Start Date End Date Amber Quiroz MD [address] [place] [address] PCP - General Family Medicine 07/03/18 Fred Parker RN [address] [place] [address] T[place] Call [phone] Registered Nurse Family Medicine 04/16/25 Sherry Herbert 04/16/25 documented as of this encounter
--- OUTSIDE RECORDS SUMMARY | 2025-04-19 03:46 | XMS_ITS | Clinical Summary ---
Author Organization [facility] Address [address] [place] [address] Phone Care Team Providers Care Marketing Communications Coordinator Name Role Phone Physician, Pcp Unknown Primary Care Provider Faye vailable Allergies Active Allergy Reactions Criticality Noted Date Comments Aspirin Congestion of the throat 08/21/2024 Ibuprofen Swallowing Problem 08/21/2024 Acetaminophen Swallowing Problem 08/21/2024 Medications cephalexin (KEFLEX) 500 mg capsule Take 1 capsule (500 mg total) by mouth 3 (three) times a day for 7 days. 21 each 04/18/2025 Active Active Problems No known active problems Encounters Date Type Department Care Team Description 04/18/2025 4:48 PM EDT - 04/18/2025 8:58 PM EDT Emergency [facility] Emergency [address] [place] [address] Teo Holly MD Pyelonephritis (Primary Dx) Discharge Disposition: Home or Self Care from [...] - Risk 50-74 years 1-dose series) 2014 Cholesterol Screening (Lipid Panel) 05/31/2022 HIV Screening 05/31/2022 Hepatitis C Screening 05/31/2022 Social Influencers of Health Screening 05/31/2022 Zoster Vaccines (2 of 2) 05/29/2023 04/03/2023 Depression Screening 07/03/2024 Influenza Vaccine (#1) 2025 , 03/22/2023, 04/02/2021, Additional history exists Hypertension/CHF/CAD Annual BMP Blood Test 04/18/2026 04/18/2025, 04/17/2025, 02/02/2025, Additional history exists DTaP,Tdap,and Td Vaccines (5 - Td or [...] AUTO DIFFERENTIAL STAT 04/18/2025 4:59 PM EDT LIPASE STAT 04/18/2025 4:59 PM EDT MAGNESIUM STAT 04/18/2025 4:59 PM EDT COMPREHENSIVE METABOLIC PANEL STAT 04/18/2025 4:59 PM EDT CBC AND DIFFERENTIAL STAT 04/18/2025 4:59 PM EDT from Last 3 Months Results * (ABNORMAL) Urinalysis with reflex microscopic (04/18/2025 7:57 PM EDT) Specific [place] Urine 1.033(H) 1.003 - 1.030 LAB URINALYSIS - AUTOMATED METHOD 04/18/2025 8:23 PM EDT [facility] pH, Urine 6.0 5.0 - 8.0 pH LAB URINALYSIS - AUTOMATED METHOD 04/18/2025 8:23 PM EDT [facility] Leukocytes, Urine Trace(A) Negative LAB URINALYSIS - AUTOMATED METHOD 04/18/2025 8:23 PM [facility] Nitrite, Urine Negative Negative LAB URINALYSIS - AUTOMATED METHOD 04/18/2025 8:23 PM [facility] Protein, Urine Trace <=Trace mg/dL LAB URINALYSIS - AUTOMATED METHOD 04/18/2025 8:23 PM [facility] Glucose, Urine Negative Negative mg/dL LAB URINALYSIS - AUTOMATED METHOD 04/18/2025 8:23 PM [facility] Ketones, Urine Negative Negative mg/dL LAB URINALYSIS - AUTOMATED METHOD 04/18/2025 8:23 PM [facility] Urobilinogen , Urine 0.2 0.2 - 1.0 mg/dL LAB URINALYSIS - AUTOMATED METHOD 04/18/2025 8:23 PM [facility] Bilirubin, Urine Negative Negative LAB URINALYSIS - AUTOMATED METHOD 04/18/2025 8:23 PM [facility] Blood, Urine Negative Negative LAB URINALYSIS - AUTOMATED METHOD 04/18/2025 8:23 PM [facility] RBC, Urine 1.5 0 - 4 /HPF LAB URINALYSIS - AUTOMATED METHOD 04/18/2025 8:23 PM [facility] WBC, Urine 16.5(H) 0 - 4 /HPF LAB URINALYSIS - AUTOMATED METHOD 04/18/2025 8:23 PM [facility] Squamous Epithelial, Urine >100(H) 0 - 60 /LPF LAB URINALYSIS - AUTOMATED METHOD 04/18/2025 8:23 PM [facility] Bacteria, Urine Moderate(A) Negative /HPF LAB URINALYSIS - AUTOMATED METHOD 04/18/2025 8:23 PM [facility] Hyaline Casts, Urine 8.8(H) 0 - 3 /LPF LAB URINALYSIS - AUTOMATED METHOD 04/18/2025 8:23 PM [facility] Urine Urine specimen obtained by clean catch procedure / Unknown Non-blood Collection / Unknown 04/18/2025 7:57 PM EDT 04/18/2025 8:01 PM EDT us Teo Holly MD LAB URINE ORDERABLES Final R esult [facility] ([facility]) [facility] [address] [place] [address], [place] [phone] * CT Abdomen Pelvis w Contrast (04/18/2025 [...] reveal no destructive osseous lesions. Procedure Note Aelxandre Ying MD - 04/18/2025 INDICATION: left flank [...] by: Alexandre Ying MD on 04/18/2025 19:55:34 us Teo Holly MD IMG CT PROCEDURES Final Resu lt * (ABNORMAL) CBC auto differential (04/18/2025 4:59 PM EDT) WBC 7.1 4.8 - 10.8 K/mcL LAB HEMETOLOGY METHOD 04/18/2025 5:48 PM EDT [facility] RBC 4.30 3.80 - 4.80 M/mcL LAB HEMETOLOGY METHOD 04/18/2025 5:48 PM EDT [facility] Hemoglobin 11.3(L) 11.5 - 16.0 g/dL LAB HEMETOLOGY METHOD 04/18/2025 5:48 PM EDT [facility] Hematocrit 36.1 35.0 - 47.0 % LAB HEMETOLOGY METHOD 04/18/2025 5:48 PM EDT [facility] MCV 84.0 79.0 - 98.0 FL LAB HEMETOLOGY METHOD 04/18/2025 5:48 PM EDT [facility] MCH 26.3(L) 27.0 - 32.0 pcg LAB HEMETOLOGY METHOD 04/18/2025 5:48 PM EDT [facility] MCHC 31.3(L) 32.0 - 37.0 g/dL LAB HEMETOLOGY METHOD 04/18/2025 5:48 PM EDT [facility] RDW 15.7(H) 11.0 - 15.0 % LAB HEMETOLOGY METHOD 04/18/2025 5:48 PM EDT [facility] Platelets 303 130 - 400 K/mcL LAB HEMETOLOGY METHOD 04/18/2025 5:48 PM EDT [facility] MPV 9.9 7.0 - 11.0 FL LAB HEMETOLOGY METHOD 04/18/2025 5:48 PM EDT [facility] NRBC 0.0 <1.0 % LAB HEMETOLOGY [facility] 04/18[facility]25 [facility] NRBC Absolute 0.00 <0.10 K/mcL LAB HEMETOLOGY METHOD 04/18/2025 5:48 PM EDT [facility] Neutrophils Relative 50.8 % LAB HEMETOLOGY METHOD 04/18/2025 5:48 PM EDT [facility] Lymphocytes Relative 36.9 % LAB HEMETOLOGY METHOD 04/18/2025 5:48 PM EDT [facility] Monocytes Relative 7.8 % LAB HEMETOLOGY METHOD 04/18/2025 5:48 PM EDT [facility] Eosinophils Relative 3.7 % LAB HEMETOLOGY METHOD 04/18/2025 5:48 PM EDT [facility] Basophils Relative 0.4 % LAB HEMETOLOGY METHOD 04/18/2025 5:48 PM EDT [facility] Immature Granulocytes Relative 0.4 % LAB HEMETOLOGY METHOD 04/18/2025 5:48 PM EDT [facility] Neutrophils Absolute 3.59 1.50 - 7.00 K/mcL LAB HEMETOLOGY METHOD 04/18/2025 5:48 PM EDT [facility] Lymphocytes Absolute 2.61 1.00 - 5.00 K/mcL LAB HEMETOLOGY METHOD 04/18/2025 5:48 PM EDT [facility] Monocytes Absolute 0.55 0.20 - 1.00 K/mcL LAB HEMETOLOGY METHOD 04/18/2025 5:48 PM EDT [facility] Eosinophils Absolute 0.26 0.00 - 0.50 K/mcL LAB HEMETOLOGY METHOD 04/18/2025 5:48 PM EDT [facility] Basophils Absolute 0.03 0.00 - 0.20 K/mcL LAB HEMETOLOGY METHOD 04/18/2025 5:48 PM EDT [facility] Immature Granulocytes Absolute 0.03 0.00 - 0.03 K/mcL LAB HEMETOLOGY METHOD 04/18/2025 5:48 PM EDT [facility] Blood Venous blood specimen / Unknown Venipuncture / Unknown 04/18/2025 4:59 PM EDT 04/18/2025 5:34 PM EDT us Teo Holly MD LAB BLOOD ORDERABLES Final R esult [facility] [address] [place] [address], * Magnesium (04/18/2025 4:59 PM EDT) Magnesium 2.1 1.9 - 2.6 mg/dL LAB CHEMISTRY METHOD 04/18/2025 6:28 PM EDT [facility] Blood Venous blood specimen / Unknown Venipuncture / Unknown 04/18/2025 4:59 PM EDT 04/18/2025 5:34 PM EDT Teo Holly MD LAB BLOOD ORDERABLES Final R esult Performing Organization Address City/[facility]/ZIP Co de Phone Number [facility] [address] [place] [address], [place] [phone] * Lipase (04/18/2025 4:59 PM EDT) Pathologist [facility] Lipase 35 13 - 75 unit/L LAB CHEMISTRY METHOD 04/18/2025 6:28 PM EDT [facility] Blood Venous blood specimen / Unknown Venipuncture / Unknown 04/18/2025 4:59 PM EDT 04/18/2025 5:34 PM EDT Teo Holly MD LAB BLOOD ORDERABLES Final R esult Performing Organization Address City/[facility] Co de Phone Number [facility] [address] [place] [address], [place] [phone] * (ABNORMAL) Comprehensive Metabolic Panel (CMP) (04/18/2025 4:59 PM EDT) Sodium 144 133 - 145 mmol/L LAB CHEMISTRY METHOD 04/18/2025 6:30 PM EDT [facility] Potassium 3.8 3.5 - 5.5 mmol/L LAB CHEMISTRY METHOD 04/18/2025 6:30 PM EDT [facility] Chloride 112(H) 96 - 110 mmol/L LAB CHEMISTRY METHOD 04/18/2025 6:30 PM EDT [facility] CO2 27 21 - 32 mmol/L LAB CHEMISTRY METHOD 04/18/2025 6:30 PM EDT [facility] Anion Gap 5 3 - 11 LAB CHEMISTRY METHOD 04/18/2025 6:30 PM [facility] Glucose 119(H) 70 - 100 mg/dL LAB CHEMISTRY METHOD 04/18/2025 6:30 PM [facility] BUN 11 5 - 25 mg/dL LAB CHEMISTRY METHOD 04/18/2025 6:30 PM [facility] Creatinine 0.69 0.50 - 1.10 mg/dL LAB CHEMISTRY METHOD 04/18/2025 6:30 PM [facility] eGFR 99 >=60 mL/min/1. 73m2 LAB CHEMISTRY METHOD 04/18/2025 6:30 PM [facility] Comment:Calculation based on the Chronic Kidney Disease Epidemiology Collaboration (CKD-EPI) equation refit without adjustment for race. BUN/Creatinine Ratio 15.9 LAB CHEMISTRY METHOD 04/18/2025 6:30 PM [facility] Calcium 8.7 8.5 - 10.5 mg/dL LAB CHEMISTRY METHOD 04/18/2025 6:30 PM [facility] AST (SGOT) 26 10 - 42 unit/L LAB CHEMISTRY METHOD 04/18/2025 6:30 PM [facility] ALT (SGPT) 36 10 - 60 unit/L LAB CHEMISTRY METHOD 04/18/2025 6:30 PM [facility] Alkaline Phosphatase 138(H) 42 - 121 unit/L LAB CHEMISTRY METHOD 04/18/2025 6:30 PM [facility] Total Protein 7.0 6.0 - 8.0 g/dL LAB CHEMISTRY METHOD 04/18/2025 6:30 PM [facility] Albumin 3.8 3.2 - 5.0 g/dL LAB CHEMISTRY METHOD 04/18/2025 6:30 PM [facility] Total Bilirubin 0.2 0.0 - 1.4 mg/dL LAB CHEMISTRY METHOD 04/18/2025 6:30 PM EDT [facility] Blood Venous blood specimen / Unknown Venipuncture / Unknown 04/18/2025 4:59 PM EDT 04/18/2025 5:34 PM EDT us Teo Holly MD LAB BLOOD ORDERABLES Final R esult [facility] [address] [place] [address], [place] [phone] from Last 3 Months Insurance MEDICAID - [place] Care Teams Marketing Communications Coordinator Relationship Specialty Start Date End Date Physician, Pcp Unknown PCP - General 04/18/25
--- OUTSIDE RECORDS SUMMARY | 2025-04-19 03:46 | XMS_ITS | Encounter Summary ---
Author Organization [employer] Address [address] [facility] 7t [place] [address] Care Team Providers Care Tailer In Name Role Phone Amber Quiroz MD Primary Care Provider [phone] Fred Parker RN Unavailable [phone] Sherry Herbert Unavailable Encounter Details Date Type Department Care Team (Late st Contact Info) Description 12/18/2024 Telephone [facility] MEDICINE [address] [place], [place] [phone] Amber Quiroz MD [address] [place], [place] [phone] Social History Tobacco Use Types Packs/Day Years [...] returning call. Pt provided temporary contact number [phone] documented in this encounter Plan of Treatment Not on file documented as of this encounter Visit Diagnoses Not on filedocumented in this encounter Additional Health Concerns Assessment Noted Time PHQ-9 Depression Total Score: 9 12/03/19 25 4:14 PM EDT documented as of this encounter Care Teams Tailer In Relationship Specialty Start Date End Date Amber Quiroz MD [address] [place] [address] PCP - General Family Medicine 07/03/18 Fred Parker, DOROTA [address] [place] [address] Registered Nurse Family Medicine 04/16/25 Sherry Herbert 04/16/25 documented as of this encounter
--- OUTSIDE RECORDS SUMMARY | 2025-04-19 03:46 | XMS_ITS | Encounter Summary ---
Author Organization [facility] Address [address] [place] [address] Care Team Providers Care Dental Claims Processor Name Role Phone Physician, Pcp Unknown Primary Care Provider Faye vailable Encounter Details Date Type Department Care Team (Late st Contact Info) Description 09/25/2024 Lab Requisition [facility] - Main Lab [address] [facility] [place] [address] Zachery Chi PA [address] [place] [address] Calculus of ureter Social History [...] [facility] [address] [place] [address], documented in this encounter Visit Diagnoses Diagnosis Calculus of ureter documented in this encounter Care Teams Dental Claims Processor Relationship Specialty Start Date End Date Physician, Pcp Unknown PCP - General 04/18/25 documented as of this encounter
--- OUTSIDE RECORDS SUMMARY | 2025-04-19 03:46 | XMS_ITS | Encounter Summary ---
Author Organization [employer] Address [address] [facility] 7t [place] [address] Care Team Providers Care Lift Truck Mechanic Name Role Phone Amber Quiroz MD Primary Care Provider Fred Parker RN Unavailable [phone] Sherry Herbert Unavailable Encounter Details Date Type Department Care Team (Late st Contact Info) Description 03/22/2023 Orders Only [facility] MEDICINE [address] [place] [address] [phone] Amber Quiroz MD [address] [place], [place] [phone] ASCUS of cervix with negative high risk [...] dysplasia documented in this encounter Care Teams Lift Truck Mechanic Relationship Specialty Start Date End Date Amber Quiroz MD [address] [place] [address] [phone] PCP - General Family Medicine 07/03/18 Fred Parker, DOROTA [address] [place] [address] Registered Nurse Family Medicine 04/16/25 Sherry Herbert 04/16/25 documented as of this encounter
--- OUTSIDE RECORDS SUMMARY | 2025-04-19 03:46 | XMS_ITS | Encounter Summary ---
Author Organization [employer] Address 75 [facility] 7 [place] [address] Care Team Providers Care Agile Scrum Coach Name Role Phone Amber Quiroz MD Primary Care Provider [phone] Fred Parker RN Unavailable [phone] Sherry Herbert Unavailable Reason for Visit * Reason Comments Med Refill Encounter Details Date Type Department Care Team (Late st Contact Info) Description 12/20/2024 Refill [facility] MEDICINE [address] [place], [place] [phone] Amber Quiroz MD [address] [place], [place] [phone] Nephrolithiasis Social History Tobacco Use Types Packs/Day [...] documented as of this encounter Care Teams Agile Scrum Coach Relationship Specialty Start Date End Date Amber Quiroz MD [address] [place] [address] PCP - General Family Medicine 07/03/18 Fred Parker, RN [address] [place] [address] Registered Nurse Family Medicine 04/16/25 Sherry Herbert 04/16/25 documented as of this encounter
--- OUTSIDE RECORDS SUMMARY | 2025-04-19 03:46 | XMS_ITS | Encounter Summary ---
Author Organization [employer] Address [address] [facility] 7 [place] [address] Care Team Providers Care Vegetable Loader Name Role Phone Amber Quiroz MD Primary Care Provider [phone] Fred Parker RN Unavailable [phone] Sherry Herbert Unavailable Reason for Visit * Reason Comments Med Refill Encounter Details Date Type Department Care Team (Late st Contact Info) Description 04/26/2023 Refill [facility] MEDICINE [address] [place], [place] [phone] Amber Quiroz MD [address] [place], [place] [phone] Nausea Social History Tobacco Use Types Packs/Day [...] alone documented in this encounter Care Teams Vegetable Loader Relationship Specialty Start Date End Date Amber Quiroz MD [address] [place], [place] [phone] PCP - General Family Medicine 07/03/18 Fred Parker, RN [address] [place] [address] Registered Nurse Family Medicine 04/16/25 Sherry Herbert 04/16/25 documented as of this encounter
--- OUTSIDE RECORDS SUMMARY | 2025-04-19 03:46 | XMS_ITS | Encounter Summary ---
Author Organization [employer] Address [address] [facility] 7 [place] [address] Care Team Providers Care Link Trainer Maintenance Man Name Role Phone Amber Quiroz MD Primary Care Provider [phone] Fred Parker RN Unavailable [phone] Sherry Herbert Unavailable Reason for Visit * Reason Comments [facility] call outreach Encounter Details Date Type Department Care Team (Latest Contact Info) Description 04/16/2025 Patient Outreach [facility] MEDICINE [address] [place], [place] [phone] Amber Quiroz MD [address] [place] [address] Care Coordination (C3 LEE Herbert telephone call [...] Sherry Herbert - 04/16/2025 9:07 AM EDT [facility] 04/15/25. Please outreach pt for enrollment. [...] documented as of this encounter Care Teams Link Trainer Maintenance Man Relationship Specialty Start Date End Date Amber Quiroz MD [address] [place] [address] PCP - General Family Medicine 07/03/18 Fred Parker RN [address] [place] [address] Registered Nurse Family Medicine 04/16/25 Sherry Herbert 04/16/25 documented as of this encounter
--- OUTSIDE RECORDS SUMMARY | 2025-04-19 03:46 | XMS_ITS | Encounter Summary ---
Author Organization [employer] Address [address] [facility] 7 [place] [address] Care Team Providers Care Gravel Screener Name Role Phone Amber Quiroz MD Primary Care Provider [phone] Fred Parkre RN Unavailable [phone] Sherry Herbert Unavailable Reason for Referral * Consultation (Routine) - Authorized Specialty Diagnoses / Procedures Referred By Catalina savage Referred To Contact Urology Diagnoses Nephrolithiasis Loin pain hematuria syndrome Recurrent urinary tract infection Amber Quiroz MD [address] [place] [address] Phone: tel: fax: [facility] Referral ID Status Reason Start Date Expiration Date Visits Requested Visits Authorized [id number] Authorized Specialty Services Required 01/17/2025 01/17/2026 6 6 Encounter Details Date Type Department Care Team (Late st Contact Info) Description 01/17/2025 Orders Only [facility] MEDICINE [address] [place], [place] [phone] Amber Quiroz MD [address] [place] [address] Nephrolithiasis (Primary Dx); Loin pain [...] documented as of this encounter Care Teams Gravel Screener Relationship Specialty Start Date End Date Amber Quiroz MD [address] [place] [address] PCP - General Family Medicine 07/03/18 Fred Parker, DOROTA [address] [place] [address] Registered Nurse Family Medicine 04/16/25 Sherry Herbert 04/16/25 documented as of this encounter
--- OUTSIDE RECORDS SUMMARY | 2025-04-19 03:46 | XMS_ITS | Encounter Summary ---
Author Organization [employer] Address [address] [facility] 7 [place] [address] Care Team Providers Care Motor Expert Name Role Phone Amber Quiroz MD Primary Care Provider [phone] Fred Parker RN Unavailable [phone] Sherry Herbert Unavailable Reason for Visit * Reason Comments Care Coordination C3CM- chart review Encounter Details Date Type Department Care Team (Latest Contact Info) Description 04/16/2025 Patient Outreach [facility] [address] [place], [place] [id number] Amber Quiroz MD [address] [place], [place] [id number] Care Coordination (C3CM- chart review) Social History [...] abdominal pain, arthralgia of hip. Specialists include [facility] [place], [place]mology, [facility] [place]. ED visits within the last 12 months include [facility] 04/15/25, [facility] 03/27/25, [facility] 03/08/25, [facility] 02/19/25, [facility] 02/08/25, [facility] 02/02/25[facility] 01/09/25, [facility] 12/28/24, [facility] 12/25/24, [facility] 12/12/24, [facility] 12/10/24, [facility] 12/07/24, [facility] 11/29/24, etc... Last appointmentin PCP office on . No future appointment scheduled at this time. documented in this encounter Plan of Treatment Not on file documented as of this encounter Visit Diagnoses Not on filedocumented in this encounter Additional Health Concerns Assessment Noted Time PHQ-9 Depression Total Score: 9 12/03/19 25 4:14 PM EDT documented as of this encounter Care Teams Motor Expert Relationship Specialty Start Date End Date Amber Quiroz MD [address] [place] [id number] PCP - General Family Medicine 07/03/18 Fred Parker RN [address] [place] [id number] Registered Nurse Family Medicine 04/16/25 Sherry Herbert 04/16/25 documented as of this encounter
--- NOTE | 2025-04-19 04:17 | ED.GENADULT ---
HPI - General Adult General Chief complaint: General Medical Stated complaint: SOB Time Seen by Provider: 04/19/25 04:15 Source: patient Mode of arrival: ambulatory Limitations: no limitations History of Present Illness ED Provider: Eliezer LUO HPI narrative: The patient is a 59-year-old female with history of kidney stones, presenting to the ED for evaluation of left-sided abdominal pain radiating to the flank. The patient reports she was seen at [facility] earlier today for her pain, received fentanyl by EMS, however reports she was waiting too long at [facility] and left without being seen. The patient returned home and reports pain was intolerable, activated EMS and requested to be brought to [place]. The patient denies associated fever, vomiting, hematuria, dysuria, recent sick contacts, or recent trauma. The patient reports history of , denies other surgical abdominal history. Related Data Home Medications ?Medication ?Instructions ?Recorded ?Confirmed albuterol sulfate 90 mcg/actuation 2 puff PO Q4-6H PRN dyspnea 11/26/20 11/26/20 aerosol inhaler (ProAir HFA) amlodipine 10 mg tablet 1 tab PO DAILY 11/26/20 11/26/20 ascorbic acid (vitamin C) 250 mg 1 tab PO BID 11/26/20 11/26/20 tablet atorvastatin 10 mg tablet 1 tab PO DAILY 11/26/20 11/26/20 clonidine HCl 0.2 mg tablet 1 tab PO BID PRN panic attack 11/26/20 11/26/20 cyanocobalamin (vitamin B-12) 500 1 tab PO DAILY 11/26/20 11/26/20 mcg tablet fluoxetine 20 mg capsule 3 cap PO QAM 11/26/20 11/26/20 gabapentin 100 mg capsule 1 cap PO TID PRN anxiety 11/26/20 11/26/20 gabapentin 400 mg capsule 1 cap PO BEDTIME 11/26/20 11/26/20 loratadine 10 mg tablet 1 tab PO DAILY 11/26/20 11/26/20 mirtazapine 30 mg tablet 1 tab PO BEDTIME 11/26/20 11/26/20 polyvinyl alcohol 1.4 % eye drops 1 drp ophthalmic (eye) TID 11/26/20 11/26/20 (Artificial Tears (polyvinyl alcohol)) quetiapine 25 mg tablet 1 tab PO BID PRN anxiety 11/26/20 11/26/20 topiramate 25 mg tablet 1 tab PO BID 11/26/20 11/26/20 zolpidem 10 mg tablet 1 tab PO BEDTIME PRN insomnia 11/26/20 11/26/20 Previous Rx's ?Medication ?Instructions ?Recorded tramadol 50 mg tablet 50 mg PO Q8H PRN pain #3 tabs 11/26/20 sennosides 8.6 mg tablet (senna) 8.6 mg PO BEDTIME #14 tabs 07/21/21 docusate sodium 100 mg capsule 100 mg PO BID PRN Constipation #14 11/23/21 (Colace) caps dicyclomine 10 mg capsule 10 mg PO BID #14 caps 08/14/24 oxycodone 5 mg tablet 5 mg PO Q8H PRN severe pain (scale 10/17/24 score 7-10) #9 tabs tamsulosin 0.4 mg capsule (Flomax) 0.4 mg PO BEDTIME #14 caps 10/17/24 acetaminophen 500 mg capsule 1,000 mg (2 x 500 mg) PO Q8H PRN 11/19/24 fever or pain #14 caps ondansetron 4 mg disintegrating 4 mg PO Q6H PRN nausea and 11/19/24 tablet vomiting #10 tabs phenazopyridine 200 mg tablet 200 mg PO TID PRN Dysuria 6 doses 11/19/24 #6 tabs acetaminophen 325 mg tablet 650 mg (2 x 325 mg) PO Q6H PRN 12/20/24 fever or pain #20 tabs cyclobenzaprine 10 mg tablet 10 mg PO TID PRN muscle spasm #20 12/20/24 tabs acetaminophen 325 mg tablet 650 mg (2 x 325 mg) PO Q6H PRN 03/08/25 (Tylenol) fever or pain #30 tabs cefuroxime axetil 250 mg tablet 250 mg PO BID 7 days #14 tabs 03/08/25 Allergies Allergy/AdvReac Type Severity Reaction Status Date / Time aspirin (ASA) Allergy Intermediate RASH, Verified 04/19/25 03:21 nausea and vomiting ibuprofen (IBUPROFEN) Allergy Intermediate RASH Verified 04/19/25 03:21 nicotine Allergy Intermediate RASH FROM Verified 04/19/25 03:21 NICOTINE PATCH, nausea and vomiting ketorolac (From TORADOL) Allergy Mild RAPID HR Verified 04/17/25 02:19 AND HIVES haloperidol (From Haldol) Allergy Anaphylaxis Verified 04/19/25 03:21 metoclopramide (From Reglan) Allergy Unknown Verified 04/19/25 03:21 Review of Systems Review of Systems: Yes all other systems are reviewed and are negative [facility] Past Medical History Medical History Drug-seeking behavior delivery delivered HTN (hypertension) Anemia Hypercholesteremia DVT (deep venous thrombosis) Kidney stones Surgical History Total knee replacement status Social History Social History Alcohol intake: never Patient Tobacco Use Status: Current everyday Tobacco user Substance Use Type: Prescription Drugs Advance Directives: No Advance Directives Information Provided: Yes Do you have a plan to hurt others: No Plan Physical Exam ED Vital Signs: Vital Signs - 24 hr 04/19/25 03:16 04/19/25 04:36 04/19/25 05:28 Temperature 98.0 F 97.6 F Pulse Rate 97 100 Respiratory Rate 21 H 16 22 H Blood Pressure 163/71 H 176/89 H Pulse Oximetry 98 96 Oxygen Delivery Method Room Air Room Air BMI result Body Mass Index 26.4 CONSTITUTIONAL: The patient appears uncomfortable but otherwise non-toxic, well nourished and in no acute distress. Vital signs as documented. HEAD: Atraumatic, normocephalic. EYES: EOMs grossly intact, pupils equal, conjunctiva clear, no exudate. ENT: Nares patent, no discharge. Airway patent, no audible stridor, visible mucosa is pink and moist without noted lesions. NECK: Trachea is midline, no obvious masses or gross abnormalities. CHEST: Symmetric movement, normal appearance. LUNGS: LS present and CTAB, no w/r/r. Non-labored work of breathing. CARDIAC: Regular Rhythm, S1/S2 appreciated, no murmurs, rubs or gallops. ABDOMEN: Abdomen soft x4 quadrants, positive tenderness to palpation of the right upper and lower quadrant, negative rebound, negative guarding, no palpable masses or organomegaly. : Deferred. EXTREMITIES: Normal tone, moves all extremities spontaneously without reported pain. No obvious acute injury or deformity noted. NEURO: Alert and oriented x3, CN II-XII appear grossly intact. Cerebellar Functioning grossly intact. No obvious sensory or motor deficits. Speech clear and appropriate. PSYCH: normal affect, appropriate eye contact, fluid speech, with appropriate response to questioning. No reported suicidality or homicidality. SKIN: Warm, dry, color appropriate, normal turgor. No rashes noted. Medications Administered Discontinued Medications Generic Name Dose Route Start Last Admin Trade Name Kim PRN Reason Stop Dose Admin Sodium Chloride 1,000 mls @ 999 mls/hr 04/19/25 04:30 04/19/25 06:19 Ns IV 04/19/25 05:30 Infused .Q1H1M ADELA Infusion Iohexol 85 ml 04/19/25 05:19 04/19/25 05:20 Iohexol 350 Mg/Ml 100 Ml Infus..Btl IV 04/19/25 05:20 85 ml ONCE ONE Administration Morphine Sulfate 4 mg 04/19/25 04:18 04/19/25 04:36 Morphine Sulfate 4 Mg/Ml Cartridge IVPUSH 04/19/25 04:19 4 mg ONCE ONE Administration Protocol Ondansetron HCl 4 mg 04/19/25 04:18 04/19/25 04:36 Ondansetron Hcl 4 Mg/2 Ml Vial IVPUSH 04/19/25 04:19 4 mg ONCE ONE Administration Medical Decision Making Medical Decision Making [facility] Narrative: 4:31 AM 04/19/2025 (Jamila LUO): The patient is a 59-year-old female with history of kidney stones, presenting to the ED for evaluation of left-sided abdominal pain radiating to the flank. The patient reports she was seen at [facility] earlier today for her pain, received fentanyl by EMS, however reports she was waiting too long at [facility] and left without being seen. The patient returned home and reports pain was intolerable, activated EMS and requested to be brought to [place]. The patient denies associated fever, vomiting, hematuria, dysuria, recent sick contacts, or recent trauma. The patient reports history of , denies other surgical abdominal history. On exam the patient appears uncomfortable, but in no acute distress. Patient reports pain with palpation of the upper and lower left quadrants, negative rebound, negative guarding. The patient's laboratory evaluation shows no leukocytosis or significant anemia, no electrolyte abnormality or ALL, LFTs are unremarkable, lipase is normal. The patient was advised she would be receiving IV fluid hydration, IV pain control, and IV nausea control. Patient immediately stated ?I have lots of allergies, only give me Dilaudid, just Dilaudid. Patient was advised she would receive morphine, Zofran, and IV fluid hydration prior to undergoing CT abdomen and pelvis. The patient stated she was comfortable with this plan of care. On chart review the patient was seen at this facility 2 days ago for the same complaints but at that time the symptoms were on the right side. During that visit the patient advised she had been taken by ambulance to [facility] earlier that day, and left due to wait times. The patient has a documented history of drug-seeking behavior but also a history of kidney stones. During most recent visit the patient was evaluated with ultrasound which showed no hydronephrosis and the patient was discharged with instructions to follow up with PCP and Urology. The patient has been evaluated by ultrasound or CT 9 times this year. Patient's presentation is highly concerning for drug-seeking behavior, however due to her last CT at this facility being over a month ago, and given the patient's history of kidney stones, we will obtain a repeat CT to rule out repeat stone. Patient will only be treated with additional narcotic pain medication as indicated by the results of CT. 6:16 AM 04/19/2025 (Jamila LUO): The patient's CT has been obtained in his still pending Radiology interpretation, this provider's interpretation shows no evidence of active ureterolithiasis. There is a full bladder and significant stool burden noted. The patient is again demanding Dilaudid and only Dilaudid by name. Patient was advised multiple times that her vital signs are reassuring, her laboratory evaluation is reassuring, and there was no evidence of an acute emergent process requiring additional narcotic medication. Patient was informed that she would receive additional narcotic medication if her CT indicated there was an active diagnosis requiring that level of pain control. Upon being denied Dilaudid, the patient became agitated with this provider, announced her intention to leave the ED against medical advice, and demanded her IV be removed. This provider recommended the patient wait in the ED for CT imaging interpretation to ensure there was no active process requiring emergent intervention. Patient stated she did not wish to stay in the ED any longer and again demanded her IV be removed. Throughout her ED course the patient has been oriented to person, time, and place, and has exhibited no clinical evidence of exogenous intoxication to a level that would impair her ability to delineate a choice. The patient was able to communicate her reason to forgo urinalysis or waiting for pending results. The patient demonstrated her understanding of this provider's concern for an acute intra-abdominal process. The patient was able to state her understanding of the potential negative outcomes of failing to diagnose and treat the cause of her symptoms, including continued or worsening pain, permanent disability or disfigurement, a decreased quality of life, or . As such, the patient has demonstrated capacity to make her own medical decisions regardless of whether this provider agrees with her reasoning. After an extensive discussion as noted above, the patient decided to leave the ED against medical advice. The patient was strongly encouraged to follow up with her PCP or specialist for continued care, but was also informed that she is welcome to return to the ED at any time for re-evaluation, regardless of her decision to leave against medical advice at this time. Patient stated her understanding. AMA paperwork was signed prior to leaving the department. Of note, patient was reassessed just prior sign AMA paperwork, approximately less than 20 minutes after she had previously been crying, holding her stomach, hyperventilating, and demanding dilaudid. At the time of reassment prior to signing AMA paperwork the patient was noted to now be sitting comfortably in a chair with her legs crossed, with no evidence of discomfort, the patient's previously exhibited crying and holding of her stomach had completely resolved without any additional pain management or other intervention, this abrupt change in behavior presents additional concern that the patient was exhibiting drug-seeking behavior. Admission/Observation Consideration of admission/observation: Escalation of care including admission/observation considered Lab Data MDM Lab Attestation statement: I reviewed the patient's lab results. 04/19/25 03:19 04/19/25 03:19 Labs: Lab Results 04/19/25 Range/Units 03:19 WBC 8.5 (4.8-10.8) X10*3/uL RBC 4.08 L (4.20-5.50) X10*6/uL Hgb 10.9 L (12.0-16.0) g/dl Hct 34.0 L (37.0-47.0) % MCV 83.3 (80.0-98.0) fL MCH 26.7 L (27.0-33.0) pg MCHC 32.1 (31.0-35.0) g/dl RDW 15.6 (11.0-16.0) % Plt Count 264 (160-400) X10*3/uL MPV 9.1 L (9.4-12.3) fL Immature Gran % (Auto) 0.5 H (0.0-0.4) % Neut % (Auto) 80.9 H (45-73) % Lymph % (Auto) 16.1 L (20-40) % [place] % (Auto) 2.1 (2-11) % Eos % (Auto) 0.2 (0-4) % Baso % (Auto) 0.2 (0-2) % Lymph # (Auto) 1.4 (1.2-4.9) X10*3/uL Providence # (Auto) 0.2 (0.1-1.2) X10*3/uL Eos # (Auto) 0.0 (0.0-0.4) X10*3/uL Baso # (Auto) 0.0 (0.0-0.2) X10*3/uL Abs Immat Gran (auto) 0.04 H (0.00-0.03) X10*3/uL Absolute Neuts (auto) 6.9 (2.0-8.3) x10*3/uL Absolute Nucleated RBC 0.000 (0.0-0.012) X10*3/uL Nucleated RBC % (auto) 0.0 (0.0-0.2) /100WBC Sodium 143 (135-145) mmol/L Potassium 4.2 D (3.3-5.1) mmol/L Chloride 109 H (96-108) mmol/L Carbon Dioxide 24 (22-29) mmol/L Anion Gap 14 (12-20) BUN 10 (9-16) mg/dL Creatinine 0.61 (0.5-1.4) mg/dL Estim Creat Clear Calc 83.7 Estimated GFR > 60 Random Glucose 286 H (60-115) mg/dL Calcium 8.4 D (8.4-10.2) mg/dL Total Bilirubin 0.2 (0.0-1.0) mg/dL AST 24 (5-31) U/L ALT 28 (0-31) U/L Alkaline Phosphatase 130 H (39-117) U/L Total Protein 6.7 (6.5-8.0) g/dL Albumin 4.2 (3.5-5.0) g/dL Lipase 35 (8-78) U/L External Record Review External record reviewed: Outpatient record and Prior outpatient labs Prescription Management I considered prescription management with: Pain Medication Discharge Plan Discharge Clinical Impression: Abdominal pain Patient Disposition: Left Against Medical Advice Instructions: Abdominal Pain (ED) Additional Instructions: Thank you for choosing [facility]'s Emergency Department for your care today. It was recommended that you remain in the ED for the results of your CT imaging and urinalysis. You have declined this recommended care plan and instead are choosing to leave the ED against medical advice. You have stated your understanding that by not completing your recommended evaluation or treatment we are unable to fully exclude all potential emergent processes which may be contributing to your symptoms. Failure to exclude dangerous causes of your symptoms could result in worsening pain, decreased quality of life, and . Please understand that your decision to leave against medical advice today does not preclude you from returning to the ED for re-evaluation if you change your mind at any time. It is extremely important that you follow up with your primary care physician and urologist for re-evaluation, additional management of your symptoms, and continued preventative care. If you do not have a primary care physician, please call the [facility] at [phone] to establish a new primary care physician. While waiting to establish your new primary care physician, you can call our [facility]in [facility] at [phone] for non-emergency needs. Please return to the emergency department if you change your mind regarding her care, develop a severe or sudden change in your symptoms, a fever over 100.4 that does not improve with Tylenol or Ibuprofen, recurrent vomiting, or any other new or worsening symptoms or concerns. Prescriptions: No Action quetiapine 25 mg tablet 1 tab PO BID PRN (Reason: anxiety) atorvastatin 10 mg tablet 1 tab PO DAILY polyvinyl alcohol [Artificial Tears (polyvin alc)] 1.4 % drops 1 drp ophthalmic (eye) TID gabapentin 400 mg capsule 1 cap PO BEDTIME topiramate 25 mg tablet 1 tab PO BID clonidine HCl 0.2 mg tablet 1 tab PO BID PRN (Reason: panic attack) cyanocobalamin (vitamin B-12) 500 mcg tablet 1 tab PO DAILY ascorbic acid (vitamin C) 250 mg tablet 1 tab PO BID amlodipine 10 mg tablet 1 tab PO DAILY mirtazapine 30 mg tablet 1 tab PO BEDTIME gabapentin 100 mg capsule 1 cap PO TID PRN (Reason: anxiety) zolpidem 10 mg tablet 1 tab PO BEDTIME PRN (Reason: insomnia) albuterol sulfate [ProAir HFA] 90 mcg/actuation HFA aerosol inhaler 2 puff PO Q4-6H PRN (Reason: dyspnea) fluoxetine 20 mg capsule 3 cap PO QAM loratadine 10 mg tablet 1 tab PO DAILY tramadol 50 mg tablet 50 mg PO Q8H PRN (Reason: pain) Qty: 3 0RF sennosides [senna] 8.6 mg tablet 8.6 mg PO BEDTIME Qty: 14 0RF docusate sodium [Colace] 100 mg capsule 100 mg PO BID PRN (Reason: Constipation) Qty: 14 0RF dicyclomine 10 mg capsule 10 mg PO BID Qty: 14 0RF tamsulosin [Flomax] 0.4 mg capsule 0.4 mg PO BEDTIME Qty: 14 0RF oxycodone 5 mg tablet 5 mg PO Q8H PRN (Reason: severe pain (scale score 7-10)) Qty: 9 0RF Rx Instructions: Partial Fill upon patient request. acetaminophen 500 mg capsule 1,000 mg PO Q8H PRN (Reason: fever or pain) Qty: 14 0RF phenazopyridine 200 mg tablet 200 mg PO TID PRN (Reason: Dysuria) Qty: 6 0RF ondansetron 4 mg tablet,disintegrating 4 mg PO Q6H PRN (Reason: nausea and vomiting) Qty: 10 0RF cefuroxime axetil 250 mg tablet 250 mg PO BID 7 Days Qty: 14 0RF acetaminophen [Tylenol] 325 mg tablet 650 mg PO Q6H PRN (Reason: fever or pain) Qty: 30 0RF cyclobenzaprine 10 mg tablet 10 mg PO TID PRN (Reason: muscle spasm) Qty: 20 0RF acetaminophen 325 mg tablet 650 mg PO Q6H PRN (Reason: fever or pain) Qty: 20 0RF Referrals: Name,MD Mike [Primary Care Provider, Internal Medicine] Clinical Impression: Abdominal pain Stand Alone Forms: Against Medical Advice Print Language: Welsh
[2025-04-19 04:36] VITALS: RESP 16
[2025-04-19] MEDS: iohexoL 350 MG/ML 100 ML INFUS..BTL 85 ML IV (05:20)
[2025-04-19 05:28] VITALS: BP 176/89; PULSE 100; RESP 22; TEMP 36.4; O2SAT 96
--- NOTE | 2025-04-19 05:34 | PC.NURSE ---
This RN went in to talk with pt who was refusing to get CT done without more pain meds, PA had already told pt that she needed to get the CT scan done before he was going to order more medications, pt in agreement for CT. On return pt asking for medications again, pt give emotional support and again alerted that the provider is aware, that this RN can not order medications for her and that I will bring them in once the order is placed. PA aware, wanting to wait until CT results are back prior to providing more medications. Pt noted to be on phone while staff is not in room. Pt placed back on monitor vitals obtained at this time. Call vazquez within reach.
--- NOTE | 2025-04-19 06:10 | PC.NURSE ---
Pt continues to ring call vazquez every 2-5 minutes repeatedly asking for pain medications, provider aware, pt told multiple times that we needed to wait for the scan to come back, pt getting out of bed walking out to staff to repeat the same information. Pt came out to reg and stated that she wants to leave, PUJA Martins aware. Pt advised to wait in room until provider comes to talk with her.
--- NOTE | 2025-04-19 06:46 | PC.NURSE ---
reviewed discharge instructions with pt. pt verbalized understanding and leaving against medical.
--- NOTE | 2025-04-19 06:58 | PC.NURSE ---
Back documentation: Provider at bedside, pt alerted again that he was not going to give more narcotics until CT results were back. Pt requesting to leave AMA, after deciding on AMA, pt requesting food, mood and behavior completely changed and was laughing and conversing with staff. IV removed, pt signed AMA paperwork and was able to ambulate out of ED stable on RA.
[2025-04-19 07:00] VITALS: BP 176/89; PULSE 100; RESP 22; TEMP 36.4; O2SAT 96
== END 2025-04-19 07:01 | disposition left against medical advice (07) ==
PROVIDERS: Emergency Provider Emergency Medicine; PCP Internal Medicine Geriatric Medicine
DX: R10.A2 Flank pain, left side (principal); R06.02 Shortness of breath; F17.200 Nicotine dependence, unspecified, uncomplicated; Z87.442 Personal history of urinary calculi; Z71.6 Tobacco abuse counseling; Z53.29 Procedure and treatment not carried out because of patient's decision for other reasons
CPT/HCPCS: 36415; 74177; 80053; 83690; 85025; 96361; 96374; 96375; 99283; 99284; J2270; J2405; Q9967

== ENCOUNTER → 2025-04-19 04:18 | Outpatient (BNV) | payer MEDICAID, SELFPAY | PROVIDERS: Emergency Provider Emergency Medicine; PCP Internal Medicine Geriatric Medicine; Visit Provider Radiology Diagnostic Radiology | DX: N20.0 Calculus of kidney (principal) | CPT/HCPCS: 74177 ==

== ENCOUNTER 2025-04-29 10:37 | Emergency (ER) | payer MEDICAID, SELFPAY ==
[2025-04-29 10:41] VITALS: BP 144/76; PULSE 96; O2SAT 97
[2025-04-29 10:43] VITALS: BP 126/59; PULSE 87; RESP 18; TEMP 37; O2SAT 100; BMI 27.0
[2025-04-29 10:45] VITALS: BP 126/59; PULSE 87; RESP 18; TEMP 37; O2SAT 100; BMI 27.0
--- NOTE | 2025-04-29 10:49 | ED.FEMALEGU ---
HPI - Female Genitourinary General Chief complaint: Urogenital-Female Stated complaint: R FLANK PAIN,BLOODY URINE,?STONE,FROM [facility] PER EMS Time Seen by Provider: 04/29/25 10:49 Related Data Home Medications ?Medication ?Instructions ?Recorded ?Confirmed albuterol sulfate 90 mcg/actuation 2 puff PO Q4-6H PRN dyspnea 11/26/20 11/26/20 aerosol inhaler (ProAir HFA) amlodipine 10 mg tablet 1 tab PO DAILY 11/26/20 11/26/20 ascorbic acid (vitamin C) 250 mg 1 tab PO BID 11/26/20 11/26/20 tablet atorvastatin 10 mg tablet 1 tab PO DAILY 11/26/20 11/26/20 clonidine HCl 0.2 mg tablet 1 tab PO BID PRN panic attack 11/26/20 11/26/20 cyanocobalamin (vitamin B-12) 500 1 tab PO DAILY 11/26/20 11/26/20 mcg tablet fluoxetine 20 mg capsule 3 cap PO QAM 11/26/20 11/26/20 gabapentin 100 mg capsule 1 cap PO TID PRN anxiety 11/26/20 11/26/20 gabapentin 400 mg capsule 1 cap PO BEDTIME 11/26/20 11/26/20 loratadine 10 mg tablet 1 tab PO DAILY 11/26/20 11/26/20 mirtazapine 30 mg tablet 1 tab PO BEDTIME 11/26/20 11/26/20 polyvinyl alcohol 1.4 % eye drops 1 drp ophthalmic (eye) TID 11/26/20 11/26/20 (Artificial Tears (polyvinyl alcohol)) quetiapine 25 mg tablet 1 tab PO BID PRN anxiety 11/26/20 11/26/20 topiramate 25 mg tablet 1 tab PO BID 11/26/20 11/26/20 zolpidem 10 mg tablet 1 tab PO BEDTIME PRN insomnia 11/26/20 11/26/20 Previous Rx's ?Medication ?Instructions ?Recorded tramadol 50 mg tablet 50 mg PO Q8H PRN pain #3 tabs 11/26/20 sennosides 8.6 mg tablet (senna) 8.6 mg PO BEDTIME #14 tabs 07/21/21 docusate sodium 100 mg capsule 100 mg PO BID PRN Constipation #14 11/23/21 (Colace) caps dicyclomine 10 mg capsule 10 mg PO BID #14 caps 08/14/24 oxycodone 5 mg tablet 5 mg PO Q8H PRN severe pain (scale 10/17/24 score 7-10) #9 tabs tamsulosin 0.4 mg capsule (Flomax) 0.4 mg PO BEDTIME #14 caps 10/17/24 acetaminophen 500 mg capsule 1,000 mg (2 x 500 mg) PO Q8H PRN 11/19/24 fever or pain #14 caps ondansetron 4 mg disintegrating 4 mg PO Q6H PRN nausea and 11/19/24 tablet vomiting #10 tabs phenazopyridine 200 mg tablet 200 mg PO TID PRN Dysuria 6 doses 11/19/24 #6 tabs acetaminophen 325 mg tablet 650 mg (2 x 325 mg) PO Q6H PRN 12/20/24 fever or pain #20 tabs cyclobenzaprine 10 mg tablet 10 mg PO TID PRN muscle spasm #20 12/20/24 tabs acetaminophen 325 mg tablet 650 mg (2 x 325 mg) PO Q6H PRN 03/08/25 (Tylenol) fever or pain #30 tabs cefuroxime axetil 250 mg tablet 250 mg PO BID 7 days #14 tabs 03/08/25 Allergies Allergy/AdvReac Type Severity Reaction Status Date / Time aspirin (ASA) Allergy Intermediate RASH, Verified 04/29/25 10:46 nausea and vomiting ibuprofen (IBUPROFEN) Allergy Intermediate RASH Verified 04/29/25 10:46 nicotine Allergy Intermediate RASH FROM Verified 04/29/25 10:46 NICOTINE PATCH, nausea and vomiting ketorolac (From TORADOL) Allergy Mild RAPID HR Verified 04/29/25 10:46 AND HIVES haloperidol (From Haldol) Allergy Anaphylaxis Verified 04/29/25 10:46 metoclopramide (From Reglan) Allergy Unknown Verified 04/29/25 10:46 [facility] Past Medical History Medical History Drug-seeking behavior delivery delivered HTN (hypertension) Anemia Hypercholesteremia DVT (deep venous thrombosis) Kidney stones Surgical History Total knee replacement status Social History Social History Alcohol intake: never Patient Tobacco Use Status: Current everyday Tobacco user Smoked in Last 30 Days: No Use of substances other than those prescribed or required for medical reasons: No Substance Use Type: Prescription Drugs Patient : No Physical Exam Vital Signs: Vital Signs: Last Vital Signs Temp 98.6 F 04/29/25 10:45 Pulse 87 04/29/25 10:45 Resp 18 04/29/25 10:45 BP 126/59 L 04/29/25 10:45 Pulse Ox 100 04/29/25 10:45 O2 Del Method Room Air 04/29/25 10:45 BMI result Body Mass Index 27.0 Discharge Plan Discharge Prescriptions: No Action quetiapine 25 mg tablet 1 tab PO BID PRN (Reason: anxiety) atorvastatin 10 mg tablet 1 tab PO DAILY polyvinyl alcohol [Artificial Tears (polyvin alc)] 1.4 % drops 1 drp ophthalmic (eye) TID gabapentin 400 mg capsule 1 cap PO BEDTIME topiramate 25 mg tablet 1 tab PO BID clonidine HCl 0.2 mg tablet 1 tab PO BID PRN (Reason: panic attack) cyanocobalamin (vitamin B-12) 500 mcg tablet 1 tab PO DAILY ascorbic acid (vitamin C) 250 mg tablet 1 tab PO BID amlodipine 10 mg tablet 1 tab PO DAILY mirtazapine 30 mg tablet 1 tab PO BEDTIME gabapentin 100 mg capsule 1 cap PO TID PRN (Reason: anxiety) zolpidem 10 mg tablet 1 tab PO BEDTIME PRN (Reason: insomnia) albuterol sulfate [ProAir HFA] 90 mcg/actuation HFA aerosol inhaler 2 puff PO Q4-6H PRN (Reason: dyspnea) fluoxetine 20 mg capsule 3 cap PO QAM loratadine 10 mg tablet 1 tab PO DAILY tramadol 50 mg tablet 50 mg PO Q8H PRN (Reason: pain) Qty: 3 0RF sennosides [senna] 8.6 mg tablet 8.6 mg PO BEDTIME Qty: 14 0RF docusate sodium [Colace] 100 mg capsule 100 mg PO BID PRN (Reason: Constipation) Qty: 14 0RF dicyclomine 10 mg capsule 10 mg PO BID Qty: 14 0RF tamsulosin [Flomax] 0.4 mg capsule 0.4 mg PO BEDTIME Qty: 14 0RF oxycodone 5 mg tablet 5 mg PO Q8H PRN (Reason: severe pain (scale score 7-10)) Qty: 9 0RF Rx Instructions: Partial Fill upon patient request. acetaminophen 500 mg capsule 1,000 mg PO Q8H PRN (Reason: fever or pain) Qty: 14 0RF phenazopyridine 200 mg tablet 200 mg PO TID PRN (Reason: Dysuria) Qty: 6 0RF ondansetron 4 mg tablet,disintegrating 4 mg PO Q6H PRN (Reason: nausea and vomiting) Qty: 10 0RF cefuroxime axetil 250 mg tablet 250 mg PO BID 7 Days Qty: 14 0RF acetaminophen [Tylenol] 325 mg tablet 650 mg PO Q6H PRN (Reason: fever or pain) Qty: 30 0RF cyclobenzaprine 10 mg tablet 10 mg PO TID PRN (Reason: muscle spasm) Qty: 20 0RF acetaminophen 325 mg tablet 650 mg PO Q6H PRN (Reason: fever or pain) Qty: 20 0RF Print Language: Latvian
[2025-04-29 11:13] LABS: MANUAL DIFF FLAG NO
[2025-04-29 11:14] LABS: Hematocrit 37.2 % (37.0-47.0); Hemoglobin 12.0 g/dl (12.0-16.0); Imm Gran Abs Auto 0.01 X10*3/uL (0.00-0.03); Imm Gran Pct Auto 0.2 % (0.0-0.4); Lymphocytes Absolute Auto 1.6 X10*3/uL (1.2-4.9); Mean Corpuscular HGB Conc 32.3 g/dl (31.0-35.0); Mean Corpuscular Hemoglobin 26.7 pg (27.0-33.0); Mean Corpuscular Volume 82.7 fL (80.0-98.0); NRBC Abs Auto 0.000 X10*3/uL (0.0-0.012); NRBC Pct Auto 0.0 /100WBC (0.0-0.2); Platelet Count 321 X10*3/uL (160-400); Red Blood Count 4.50 X10*6/uL (4.20-5.50); White Blood Count 6.2 X10*3/uL (4.8-10.8)
--- NOTE | 2025-04-29 11:23 | ED.FEMALEGU ---
HPI - Female Genitourinary General Chief complaint: Urogenital-Female Stated complaint: R FLANK PAIN,BLOODY URINE,?STONE,FROM [facility] PER EMS Time Seen by Provider: 04/29/25 10:49 History of Present Illness ED Provider: Jeovany Cunningham MD HPI Narrative: 59-year-old female with recurrent kidney stones with right-sided flank pain. Denies fever or chills urine is dark. Denies dysuria. Related Data Home Medications ?Medication ?Instructions ?Recorded ?Confirmed albuterol sulfate 90 mcg/actuation 2 puff PO Q4-6H PRN dyspnea 11/26/20 11/26/20 aerosol inhaler (ProAir HFA) amlodipine 10 mg tablet 1 tab PO DAILY 11/26/20 11/26/20 ascorbic acid (vitamin C) 250 mg 1 tab PO BID 11/26/20 11/26/20 tablet atorvastatin 10 mg tablet 1 tab PO DAILY 11/26/20 11/26/20 clonidine HCl 0.2 mg tablet 1 tab PO BID PRN panic attack 11/26/20 11/26/20 cyanocobalamin (vitamin B-12) 500 1 tab PO DAILY 11/26/20 11/26/20 mcg tablet fluoxetine 20 mg capsule 3 cap PO QAM 11/26/20 11/26/20 gabapentin 100 mg capsule 1 cap PO TID PRN anxiety 11/26/20 11/26/20 gabapentin 400 mg capsule 1 cap PO BEDTIME 11/26/20 11/26/20 loratadine 10 mg tablet 1 tab PO DAILY 11/26/20 11/26/20 mirtazapine 30 mg tablet 1 tab PO BEDTIME 11/26/20 11/26/20 polyvinyl alcohol 1.4 % eye drops 1 drp ophthalmic (eye) TID 11/26/20 11/26/20 (Artificial Tears (polyvinyl alcohol)) quetiapine 25 mg tablet 1 tab PO BID PRN anxiety 11/26/20 11/26/20 topiramate 25 mg tablet 1 tab PO BID 11/26/20 11/26/20 zolpidem 10 mg tablet 1 tab PO BEDTIME PRN insomnia 11/26/20 11/26/20 Previous Rx's ?Medication ?Instructions ?Recorded tramadol 50 mg tablet 50 mg PO Q8H PRN pain #3 tabs 11/26/20 sennosides 8.6 mg tablet (senna) 8.6 mg PO BEDTIME #14 tabs 07/21/21 docusate sodium 100 mg capsule 100 mg PO BID PRN Constipation #14 11/23/21 (Colace) caps dicyclomine 10 mg capsule 10 mg PO BID #14 caps 08/14/24 oxycodone 5 mg tablet 5 mg PO Q8H PRN severe pain (scale 10/17/24 score 7-10) #9 tabs tamsulosin 0.4 mg capsule (Flomax) 0.4 mg PO BEDTIME #14 caps 10/17/24 acetaminophen 500 mg capsule 1,000 mg (2 x 500 mg) PO Q8H PRN 11/19/24 fever or pain #14 caps ondansetron 4 mg disintegrating 4 mg PO Q6H PRN nausea and 11/19/24 tablet vomiting #10 tabs phenazopyridine 200 mg tablet 200 mg PO TID PRN Dysuria 6 doses 11/19/24 #6 tabs acetaminophen 325 mg tablet 650 mg (2 x 325 mg) PO Q6H PRN 12/20/24 fever or pain #20 tabs cyclobenzaprine 10 mg tablet 10 mg PO TID PRN muscle spasm #20 12/20/24 tabs acetaminophen 325 mg tablet 650 mg (2 x 325 mg) PO Q6H PRN 03/08/25 (Tylenol) fever or pain #30 tabs cefuroxime axetil 250 mg tablet 250 mg PO BID 7 days #14 tabs 03/08/25 cefuroxime axetil 500 mg tablet 500 mg PO BID 7 days #14 tabs 04/29/25 morphine 15 mg immediate release 15 mg PO BID PRN pain #7 tabs 04/29/25 tablet ondansetron 4 mg disintegrating 4 mg PO Q8H PRN nausea and 04/29/25 tablet vomiting #7 tabs Allergies Allergy/AdvReac Type Severity Reaction Status Date / Time aspirin (ASA) Allergy Intermediate RASH, Verified 04/29/25 10:46 nausea and vomiting ibuprofen (IBUPROFEN) Allergy Intermediate RASH Verified 04/29/25 10:46 nicotine Allergy Intermediate RASH FROM Verified 04/29/25 10:46 NICOTINE PATCH, nausea and vomiting ketorolac (From TORADOL) Allergy Mild RAPID HR Verified 04/29/25 10:46 AND HIVES haloperidol (From Haldol) Allergy Anaphylaxis Verified 04/29/25 10:46 metoclopramide (From Reglan) Allergy Unknown Verified 04/29/25 10:46 [facility] Past Medical History Medical History Drug-seeking behavior delivery delivered HTN (hypertension) Anemia Hypercholesteremia DVT (deep venous thrombosis) Kidney stones Surgical History Total knee replacement status Social History Social History Alcohol intake: never Patient Tobacco Use Status: Current everyday Tobacco user Substance Use Type: Prescription Drugs Physical Exam Exam: Exam: EXAM: Gen: Alert, awake, well appearing, well hydrated. Appears uncomfortable not severely distressed Head: Atraumatic Eyes: Anicteric, Normal conjunctiva. ENT: Moist mucosa, no pallor. ? Neck: Supple. Skin: ?No observable rash or bruising on exposed or examined skin Respiratory: Breathing comfortably, No distress.Clear to auscultation bilaterally, symmetric chest expansion, No wheeze, rales, ronchi. Cardiovascular: Regular rate and rhythm. No murmurs or rub. Well perfused periphery, warm extremities. No edema. ? Abdominal: No focal tenderness. Soft, no objective distension. No palpable masses or obvious organomegaly. ?No guarding, no rebound tenderness or other peritoneal findings. : Mild right flank tenderness Neuro: Alert. Gross movement of all extremities intact. ? Psych: Calm. Cooperative. MSK: No grossly visible deformity. Vital signs: See flowsheet Vital Signs: Vital Signs: Last Vital Signs Temp 0 F L 04/29/25 12:37 Pulse 75 04/29/25 12:37 Resp 16 04/29/25 12:37 BP 114/69 04/29/25 12:37 Pulse Ox 100 04/29/25 10:45 O2 Del Method Room Air 04/29/25 10:45 BMI result Body Mass Index 27.0 Medications Administered Discontinued Medications Generic Name Dose Route Start Last Admin Trade Name Freq PRN Reason Stop Dose Admin Cefuroxime Axetil 500 mg 04/29/25 12:14 04/29/25 12:19 Cefuroxime Axetil 500 Mg Tablet PO 04/29/25 12:15 500 mg ONCE ONE Administration Morphine Sulfate 5 mg 04/29/25 11:23 04/29/25 11:38 Morphine Sulfate 10 Mg/Ml Cartridge IVPUSH 04/29/25 11:24 5 mg ONCE ONE Administration Protocol Ondansetron HCl 4 mg 04/29/25 11:23 04/29/25 11:38 Ondansetron Hcl 4 Mg/2 Ml Vial IVPUSH 04/29/25 11:24 4 mg ONCE ONE Administration Medical Decision Making Medical Decision Making MDM Narrative: Medical Decision Making: [age] female with your chronic bilateral flank pain she has chronic sometimes obstructing sometimes nonobstructing stones and chronic flank pain. Did not report fever does have some dysuria. She did not meet sepsis criteria and is comfortable after morphine. Plain plan for oral antibiotics for presumed pyelonephritis given the urinalysis. Culture is sent and pending. Preliminary Favored Differential Diagnosis: Kidney stones, flank pain hematuria syndrome, passed kidney stone without obstruction, pyelonephritis among additional considered etiologies Testing Interpreted Independently: ?See below for details Radiology or Lab testing Results Reviewed: ?See below for details Consults: ?See below for details Independent Historians/External Chart Reviews: ?See below for details Social Determinants of Health Impacting MDM/Planning: ?See below for details Lab Data MDM Lab Attestation statement: I reviewed the patient's lab results. 04/29/25 11:05 04/29/25 12:14 Labs: Lab Results 04/29/25 04/29/25 04/29/25 Range/Units 11:05 11:15 12:14 WBC 6.2 (4.8-10.8) X10*3/uL RBC 4.50 (4.20-5.50) X10*6/uL Hgb 12.0 (12.0-16.0) g/dl Hct 37.2 (37.0-47.0) % MCV 82.7 (80.0-98.0) fL MCH 26.7 L (27.0-33.0) pg MCHC 32.3 (31.0-35.0) g/dl RDW 15.6 (11.0-16.0) % Plt Count 321 (160-400) X10*3/uL MPV 9.3 L (9.4-12.3) fL Immature Gran % (Auto) 0.2 (0.0-0.4) % Neut % (Auto) 68.1 (45-73) % Lymph % (Auto) 26.0 (20-40) % [place] % (Auto) 4.8 (2-11) % Eos % (Auto) 0.6 (0-4) % Baso % (Auto) 0.3 (0-2) % Lymph # (Auto) 1.6 (1.2-4.9) X10*3/uL [place] # (Auto) 0.3 (0.1-1.2) X10*3/uL Eos # (Auto) 0.0 (0.0-0.4) X10*3/uL Baso # (Auto) 0.0 (0.0-0.2) X10*3/uL Abs Immat Gran (auto) 0.01 (0.00-0.03) X10*3/uL Absolute Neuts (auto) 4.3 (2.0-8.3) x10*3/uL Absolute Nucleated RBC 0.000 (0.0-0.012) X10*3/uL Nucleated RBC % (auto) 0.0 (0.0-0.2) /100WBC Sodium 144 (135-145) mmol/L Potassium 3.3 D (3.3-5.1) mmol/L Chloride 111 H (96-108) mmol/L Carbon Dioxide 26 (22-29) mmol/L Anion Gap 10 L (12-20) BUN 14 (9-16) mg/dL Creatinine 0.61 (0.5-1.4) mg/dL Estim Creat Clear Calc 84.5 Estimated GFR > 60 Random Glucose 92 (60-115) mg/dL Calcium 8.9 (8.4-10.2) mg/dL Total Bilirubin 0.5 (0.0-1.0) mg/dL AST 22 (5-31) U/L ALT 13 (0-31) U/L Alkaline Phosphatase 110 (39-117) U/L Total Protein 7.1 (6.5-8.0) g/dL Albumin 4.4 (3.5-5.0) g/dL Urine Color BROWN Urine Appearance Clear Urine pH 6.0 (5.0-9.0) Ur Specific [place] <= 1.005 (1.005-1.025) Urine Protein 30 (1+) H (Neg-Trace) mg/dL Urine Glucose (UA) Negative (Negative) mg/dL Urine Ketones Negative (Negative) mg/dL Urine Blood Large (3+) H (Negative) Urine Nitrite Positive H (Negative) Ur Leukocyte Esterase Negative (Negative) Urine RBC 6-10 H (0-2) /HPF Urine WBC 0-5 (0-5) /HPF Ur Squamous Epith Cells 0-2 (0-2) /HPF Urine Bacteria 1+ (None Seen) Hyaline Casts 0-2 (0-2) /LPF Procedures Procedure Narrative Procedure Narrative: EMERGENCY ULTRASOUND INTERPRETATION-Limited Retroperitoneal (Renal) [This study was ordered, performed, and interpreted by myself. The study reveals: Impression: NO EVIDENCE OF UROLOGIC OBSTRUCTION] [Indication: FLANK PAIN Bladder: ANECHOIC URINE. Intact jets Right Kidney: NO HYDRONEPHROSIS Performed by: Jeovany Cunningham MD Images were stored CPT: 09526] Discharge Plan Discharge Clinical Impression: Acute flank pain, Pyelonephritis Patient Disposition: Home, Self-Care Instructions: Urinary Tract Infection in Women (DC), Abdominal Pain (ED), Flank Pain (ED) Additional Instructions: You were evaluated for recurrent flank pain today you had right-sided flank pain earlier this week you had left-sided flank pain. You did have signs of urinary infection likely a kidney infection. There was no evidence of urologic obstruction or a kidney stone obstructing your ureters or kidneys or bladder. Did not have fever or other concerning vital signs. You have chronic recurrent and sometimes severe pain that is difficult to control. We have limited to us to do any additional testing for this and it is crucial you follow up with your primary doctor as well as your urologist to develop an outpatient plan Prescriptions: New morphine 15 mg tablet 15 mg PO BID PRN (Reason: pain) Qty: 7 0RF Rx Instructions: Partial Fill upon patient request. ondansetron 4 mg tablet,disintegrating 4 mg PO Q8H PRN (Reason: nausea and vomiting) Qty: 7 0RF cefuroxime axetil 500 mg tablet 500 mg PO BID 7 Days Qty: 14 0RF No Action quetiapine 25 mg tablet 1 tab PO BID PRN (Reason: anxiety) atorvastatin 10 mg tablet 1 tab PO DAILY polyvinyl alcohol [Artificial Tears (polyvin alc)] 1.4 % drops 1 drp ophthalmic (eye) TID gabapentin 400 mg capsule 1 cap PO BEDTIME topiramate 25 mg tablet 1 tab PO BID clonidine HCl 0.2 mg tablet 1 tab PO BID PRN (Reason: panic attack) cyanocobalamin (vitamin B-12) 500 mcg tablet 1 tab PO DAILY ascorbic acid (vitamin C) 250 mg tablet 1 tab PO BID amlodipine 10 mg tablet 1 tab PO DAILY mirtazapine 30 mg tablet 1 tab PO BEDTIME gabapentin 100 mg capsule 1 cap PO TID PRN (Reason: anxiety) zolpidem 10 mg tablet 1 tab PO BEDTIME PRN (Reason: insomnia) albuterol sulfate [ProAir HFA] 90 mcg/actuation HFA aerosol inhaler 2 puff PO Q4-6H PRN (Reason: dyspnea) fluoxetine 20 mg capsule 3 cap PO QAM loratadine 10 mg tablet 1 tab PO DAILY tramadol 50 mg tablet 50 mg PO Q8H PRN (Reason: pain) Qty: 3 0RF sennosides [senna] 8.6 mg tablet 8.6 mg PO BEDTIME Qty: 14 0RF docusate sodium [Colace] 100 mg capsule 100 mg PO BID PRN (Reason: Constipation) Qty: 14 0RF dicyclomine 10 mg capsule 10 mg PO BID Qty: 14 0RF tamsulosin [Flomax] 0.4 mg capsule 0.4 mg PO BEDTIME Qty: 14 0RF oxycodone 5 mg tablet 5 mg PO Q8H PRN (Reason: severe pain (scale score 7-10)) Qty: 9 0RF Rx Instructions: Partial Fill upon patient request. acetaminophen 500 mg capsule 1,000 mg PO Q8H PRN (Reason: fever or pain) Qty: 14 0RF phenazopyridine 200 mg tablet 200 mg PO TID PRN (Reason: Dysuria) Qty: 6 0RF ondansetron 4 mg tablet,disintegrating 4 mg PO Q6H PRN (Reason: nausea and vomiting) Qty: 10 0RF cefuroxime axetil 250 mg tablet 250 mg PO BID 7 Days Qty: 14 0RF acetaminophen [Tylenol] 325 mg tablet 650 mg PO Q6H PRN (Reason: fever or pain) Qty: 30 0RF cyclobenzaprine 10 mg tablet 10 mg PO TID PRN (Reason: muscle spasm) Qty: 20 0RF acetaminophen 325 mg tablet 650 mg PO Q6H PRN (Reason: fever or pain) Qty: 20 0RF Interventions: ED Discharge Assessment Last Done: 04/29/25 12:37 Discharge Date/Time: 04/29/25 12:38 Print Language: Greek
[2025-04-29 11:38] VITALS: BP 114/69; PULSE 75; RESP 16
[2025-04-29 12:06] LABS: Appearance Urine Clear; Glucose Urine UA Negative (Negative); PH 6.0 (5.0-9.0); Specific Gravity - Urine <= 1.005 (1.005-1.025); UMIC TRIGGER UACC YES
[2025-04-29 12:21] LABS: UACC Culture Trigger YES
[2025-04-29 12:37] VITALS: BP 114/69; PULSE 75; RESP 16; TEMP -17.7; TEMP 0
[2025-04-29 12:38] LABS: Alanine Aminotransferase 13 U/L (0-31); Albumin Level 4.4 g/dL (3.5-5.0); Alkaline Phosphatase 110 U/L (39-117); Anion Gap 10 (12-20); Aspartate Amino Transferase 22 U/L (5-31); Blood Urea Nitrogen 14 mg/dL (9-16); Calcium 8.9 mg/dL (8.4-10.2); Carbon Dioxide 26 mmol/L (22-29); Chloride 111 mmol/L (96-108); Creatinine Clr Calc Pharmacy 84.5; Estimated Glomerular Filt Rate > 60; Potassium 3.3 mmol/L (3.3-5.1); Sodium 144 mmol/L (135-145); Total Protein 7.1 g/dL (6.5-8.0)
--- OUTSIDE RECORDS SUMMARY | 2025-04-29 14:18 | XMS_ITS ---
Author Organization [employer] Address [address] [facility] 7 [place] [address] Care Team Providers Care Microelectronics Engineer Name Role Phone Amber Quiroz MD Primary Care Provider [phone] Fred Parker RN Unavailable [phone] Sherry Herbert Unavailable CM Complex Status:Outreach In Progress (Enrolling) Start date:04/16/2025 Enrollment reason:ADT Feed Overview [facility] ED 04/15/25 Case Team Name Relationship Phone Fred Parker RN(Responsible Staff) Registered Jeremie salgado [phone] Continued Care and Services Coordination
--- OUTSIDE RECORDS SUMMARY | 2025-04-29 14:18 | XMS_ITS | Encounter Summary ---
Author Organization [employer] Address [address] [facility] [address] [place] [address] Care Team Providers Care Barrel Brander Name Role Phone Amber Quiroz MD Primary Care Provider [phone] Fred Parker RN Unavailable [phone] Sherry Herbert Unavailable Reason for Visit * Reason Comments Med Refill Encounter Details Date Type Department Care Team (Late st Contact Info) Description 11/18/2024 Refill [facility] [address] [place], [place] [id number] Amber Quiroz MD [address] [place], [place] [phone] Nephrolithiasis Social History Tobacco Use Types Packs/Day [...] Care Team (Late st Contact Info) Description 04/30/2025 9:30 AM EDT Clinical Support [facility] [address] [place] [address] Rachelle Lucero RN [address] [place] [address] 05/26/2025 10:00 AM EST Office Visit [facility] [address] [place] [address] Amber Quiroz MD [address] [place] [address] documented as of this encounter Visit Diagnoses Diagnosis Nephrolithiasis Calculus of kidney documented in this encounter Care Teams Barrel Brander Relationship Specialty Start Date End Date Amber Quiroz MD [address] [place] [address] PCP - General Family Medicine 07/03/18 Fred Parker, DOROTA [address] [place] [address] Registered Nurse Family Medicine 04/16/25 Sherry Herbert 04/16/25 documented as of this encounter
--- OUTSIDE RECORDS SUMMARY | 2025-04-29 14:18 | XMS_ITS ---
Author Organization [employer] Address [address] [facility] [address] [place] [address] Care Team Providers Care Service Coordinator Name Role Phone Amber Quiroz MD Primary Care Provider [phone] Fred Parker RN Unavailable Sherry Herbert Unavailable CHW Complex Status:Outreach In Progress (Enrolling) Start date:04/16/2025 Enrollment reason:ADT Feed Overview [facility] ED 04/15/25 Case Team Name Relationship Phone Sherry Herbert(Responsible Staff) Continued Care and Services Coordination
--- OUTSIDE RECORDS SUMMARY | 2025-04-29 14:19 | XMS_ITS | Encounter Summary ---
Author Organization [employer] Address [address] [facility] [place] [address] Care Team Providers Care Assistant Technician Name Role Phone Amber Quiroz MD Primary Care Provider [phone] Fred Parker RN Unavailable [phone] Sherry Herbert Unavailable Encounter Details Date Type Department Care Team (Late st Contact Info) Description 12/12/2023 Orders Only [facility] [address] [place], [place] [phone] Amber Quiroz MD [address] [place] [address] Nephrolithiasis (Primary Dx) Social History [...] Upcoming Encounters Date Type Department Care Team ([facility] st Contact Info) Description 04/30/2025 9:30 AM EDT Clinical Support [facility] [address] [place] [address] Rachelle Lucero RN [address] [place] [address] 05/26/2025 10:00 AM EST Office Visit [facility] [address] [place] [address] Amber Quiroz MD [address] [place] [address] documented as of this encounter Visit Diagnoses Diagnosis Nephrolithiasis- Primary Calculus of kidney documented in this encounter Care Teams Assistant Technician Relationship Specialty Start Date End Date Amber Quiroz MD [address] [place] [address] PCP - General Family Medicine 07/03/18 Fred Parker, RN [address] [place] [address] Registered Nurse Family Medicine 04/16/25 Sherry Herbert 04/16/25 documented as of this encounter
--- OUTSIDE RECORDS SUMMARY | 2025-04-29 14:19 | XMS_ITS | Encounter Summary ---
Author Organization [employer] Address [address] [facility] [address] [place] [address] Care Team Providers Care Movement Assembly Final Inspector Name Role Phone Amber Quiroz MD Primary Care Provider [phone] Fred Parker RN Unavailable [phone] Sherry Herbert Unavailable Reason for Referral * Consultation (Routine) - Closed Specialty Diagnoses / Procedures Referred By Catalina savage Referred To Contact Urology Diagnoses Nephrolithiasis Loin pain hematuria syndrome Recurrent urinary tract infection Amber Quiroz MD [address] [place] [address] Phone: tel: fax: [facility] Referral ID Status Reason Start Date Expiration Date V isits Requested Visits Authorized [id number] Closed Specialty Services Required 01/17/2025 01/17/2026 6 6 Encounter Details Date Type Department Care Team (Late st Contact Info) Description 01/17/2025 Orders Only [facility] [address] [place] [address] Amber Quiroz MD [address] [place] [address] Nephrolithiasis (Primary Dx); Loin pain [...] Description 04/30/2025 9:30 AM EDT Clinical Support [facility] [address] [place] [address] Rachelle Lucero RN [address] [place] [address] 05/26/2025 10:00 AM EST Office Visit [facility] [address] [place] [address] Amber Quiroz MD [address] [place] [address] Scheduled Referrals Name Type Priority Associated Diagnoses [...] documented as of this encounter Care Teams Movement Assembly Final Inspector Relationship Specialty Start Date End Date Amber Quiroz MD [address] [place] [address] PCP - General Family Medicine 07/03/18 Fred Parker, DOROTA [address] [place] [address] Registered Nurse Family Medicine 04/16/25 Sherry Herbert 04/16/25 documented as of this encounter
--- OUTSIDE RECORDS SUMMARY | 2025-04-29 14:19 | XMS_ITS | Encounter Summary ---
Author Organization [employer] Address [address] [facility] 7t [place] [address] Care Team Providers Care Senior Financial Accountant Name Role Phone Amber Quiroz MD Primary Care Provider [phone] Fred Parker RN Unavailable [phone] Sherry Herbert Unavailable Reason for Visit * Reason Comments Med Refill Encounter Details Date Type Department Care Team (Late st Contact Info) Description 06/01/2023 Refill [facility] MEDICINE [address] [place], [place] [phone] Amber Quiroz MD 230 [place], [place] [phone] Pain Social History Tobacco Use Types Packs/Day [...] Description 04/30/2025 9:30 AM EDT Clinical Support [facility] CHC MED & PEDS 505 [place] [address] Rachelle Lucero RN 505 [place] [address] 05/26/2025 10:00 AM EST Office Visit [facility] MEDICINE [address] [place] [address] Amber Quiroz MD 230 [place] [address] documented as of this encounter Visit Diagnoses Diagnosis Pain Generalized pain documented in this encounter Care Teams Senior Financial Accountant Relationship Specialty Start Date End Date Amber Quiroz MD 230 [place] [address] PCP - General Family Medicine 07/03/18 Fred Parker, RN 505 [place] [address] Registered Nurse Family Medicine 04/16/25 Sherry Herbert 04/16/25 documented as of this encounter
--- OUTSIDE RECORDS SUMMARY | 2025-04-29 14:19 | XMS_ITS | Encounter Summary ---
Author Organization [employer] Address [address] [place] [address] 7 [place] [address] Care Team Providers Care Diet Attendant Name Role Phone Amber Quiroz MD Primary Care Provider Fred Parker RN Unavailable [phone] Sherry Herbert Unavailable Reason for Visit * Reason Comments Med Refill Encounter Details Date Type Department Care Team (Late st Contact Info) Description 11/29/2023 Refill [facility] MEDICINE [address] [place], [place] [phone] Charleen Latif MD 230 [place], [place] [phone] Nephrolithiasis Social History Tobacco Use Types Packs/Day [...] Description 04/30/2025 9:30 AM EDT Clinical Support [facility] CHC MED & PEDS [address] [place] [address] Rcahelle Lucero RN 505 [place] [address] 05/26/2025 10:00 AM EST Office Visit [facility] MEDICINE [address] [place] [address] Amber Quiroz MD 230 [place] [address] documented as of this encounter Visit Diagnoses Diagnosis Nephrolithiasis Calculus of kidney documented in this encounter Care Teams Diet Attendant Relationship Specialty Start Date End Date Amber Quiroz MD 230 [place] [address] PCP - General Family Medicine 07/03/18 Fred Parker, RN 505 [place] [address] Registered Nurse Family Medicine 04/16/25 Sherry Herbert 04/16/25 documented as of this encounter
--- OUTSIDE RECORDS SUMMARY | 2025-04-29 14:19 | XMS_ITS | Encounter Summary ---
Author Organization [employer] Address [address] [facility] 7t [place] [address] Care Team Providers Care Mail Truck Driver Name Role Phone Amber Quiroz MD Primary Care Provider [phone] Fred Parker RN Unavailable [phone] Sherry Herbert Unavailable Encounter Details Date Type Department Care Team (Late st Contact Info) Description 09/04/2024 Orders Only [facility] MEDICINE 230 [place], [place] [phone] Amber Quiroz MD 230 [place] [address] Routine screening for STI (sexually [...] Upcoming Encounters Date Type Department Care Team ([facility] st Contact Info) Description 04/30/2025 9:30 AM EDT Clinical Support [facility] CHC MED & PEDS 505 [place] [address] Rachelle Lucero, DOROTA [address] [place] [address] 05/26/2025 10:00 AM EST Office Visit [facility] MEDICINE 230 [place] [address] Amber Quiroz MD 230 [place] [address] Scheduled Orders Name Type Priority Associated Diagnoses [...] disease documented in this encounter Care Teams Mail Truck Driver Relationship Specialty Start Date End Date Amber Quiroz MD 230 [place] [address] PCP - General Family Medicine 07/03/18 Fred Parker, DOROTA [address] [place] [address] Registered Nurse Family Medicine 04/16/25 Sherry Herbert 04/16/25 documented as of this encounter
--- OUTSIDE RECORDS SUMMARY | 2025-04-29 14:19 | XMS_ITS | Encounter Summary ---
Author Organization [employer] Address [address] [facility] 7t [place] [address] Care Team Providers Care Banking Services Officer Name Role Phone Amber Quiroz MD Primary Care Provider [phone] Fred Parker RN Unavailable [phone] Sherry Herbert Unavailable Encounter Details Date Type Department Care Team (Late st Contact Info) Description 04/29/2025 Orders Only GENERIC EXTERNAL DATA DEPARTMENT Provider, [...] Upcoming Encounters Date Type Department Care Team ([facility] st Contact Info) Description 04/30/2025 9:30 AM EDT Clinical Support [facility] CHC MED & PEDS 505 [place] [address] Rachelle Lucero RN 505 [place] [address] 05/26/2025 10:00 AM EST Office Visit [facility] MEDICINE [address] [place] [address] Amber Quiroz MD 230 [place], [place] [phone] documented as of this encounter Procedures Procedure Name Priority Date/Time Associated Diagnosis Comments COMPREHENSIVE METABOLIC PANEL Routine 04/29/2025 12:14 PM EDT URINALYSIS, COMPLETE, WITH REFLEX TO CULTURE Routine 04/29/2025 11:15 AM EDT CBC WITH AUTO DIFFERENTIAL Routine 04/29/2025 11:05 AM EDT documented in this encounter Results * (ABNORMAL) Comprehensive Metabolic Panel (04/29/2025 12:14 PM EDT) Sodium 144 135 - 145 mmol/L [facility] Potassium 3.3 3.3 - 5.1 mmol/L [facility] Chloride 111(H) 96 - 108 mmol/L [facility] Carbon Dioxide 26 22 - 29 mmol/L [facility] Anion Gap 10(L) 12 - 20 [facility] Urea Nitrogen (BUN) 14 9 - 16 mg/dL [facility] Creatinine, Serum 0.61 0.5 - 1.4 mg/dL [facility] Creatinine Clr Calc Pharmacy 84.5 [facility] Comment:Provided height and weight: 154.94 cm,64.8 kg.eGFR (calculated from the MDRD study equation) and eCrCl(calculated from the Cockcroft-Gault equation) are based ondifferent parameters and may not yield comparable results.If eCrCl result is absurd, please check patient'sheight/weight. Estimated Glomerular Filt Rate >60 [facility] Comment:Chronic Kidney Disea se: Estimated GFR < 60 mL/min/1.83w5Hilbqw Kidney Disease: Estimated GFR < 15 mL/min/1.73m2 Glucose 92 60 - 115 mg/dL [facility] Calcium 8.9 8.4 - 10.2 mg/dL [facility] Bilirubin, Total 0.5 0.0 - 1.0 mg/dL [facility] Aspartate Amino Transferase 22 5 - 31 U/L [facility] Alanine Aminotransferase 13 0 - 31 U/L [facility] Total Protein 7.1 6.5 - 8.0 g/dL [facility] Albumin Level 4.4 3.5 - 5.0 g/dL [facility] Alkaline Phosphatase 110 39 - 117 U/L [facility] 04/29/2025 12:1 4 PM EDT 04/29/2025 12:17 PM EDT us Generic External Data Provider LAB BLOOD ORDERAB LES Final Result [facility] [address] [place] [address] [phone] * (ABNORMAL) Urinalysis, Complete, with Reflex to Culture (04/29/2025 11:15 AM EDT) Color Urine BROWN [facility] Appearance Urine Clear [facility] PH 6.0 5.0 - 9.0 [facility] Glucose Urine UA Negative Negative mg/dL [facility] Urine Blood Large (3+)(A) Negative [facility] Specific [place] - Urine <=1.005 1.005 - 1.025 [facility] Urine Protein 30 (1+)(A) Neg-Trace mg/dL [facility] Urine Ketones Negative Negative mg/dL [facility] Nitrite Urine Positive(A) Negative [facility] Leukocyte Esterase Urine Negative Negative [facility] RBC Urine 6-10(A) 0 - 2 /HPF [facility] Urine WBC 0-5 0 - 5 /HPF [facility] Urine Squamous Epithelial Cell 0-2 0 - 2 /HPF [facility] Urine Bacteria 1+ None Seen [facility] Hyaline Casts, Urine 0-2 0 - 2 /LPF [facility] 04/29/2025 11:1 5 AM EDT 04/29/2025 11:18 AM EDT Narrative [facility] - 04/29/2025 12:22 PM EDT Urine, Clean Catch us Generic External Data Provider LAB URINE ORDERAB LES Final Result [facility] [address] [place], [place] [phone] * (ABNORMAL) CBC auto differential (04/29/2025 11:05 AM EDT) White Blood Count 6.2 4.8 - 10.8 X10*3/uL [facility] Red Blood Count 4.50 4.20 - 5.50 X10*6/uL [facility] Hemoglobin 12.0 12.0 - 16.0 g/dl [facility] Hematocrit 37.2 37.0 - 47.0 % [facility] Mean Corpuscular Volume 82.7 80.0 - 98.0 fL [facility] Mean Corpuscular Hemoglobin 26.7(L) 27.0 - 33.0 pg [facility] Mean Corpuscular HGB Conc 32.3 31.0 - 35.0 g/dl [facility] Red Cell Distribution Width 15.6 11.0 - 16.0 % [facility] Platelet Count 321 160 - 400 X10*3/uL [facility] Mean Platelet Volume 9.3(L) 9.4 - 12.3 fL [facility] Neutrophils Percent Auto 68.1 45 - 73 % [facility] Imm Gran Pct Auto 0.2 0.0 - 0.4 % [facility] Lymphocytes Percent Auto 26.0 20 - 40 % [facility] Monocytes Percent Auto 4.8 2 - 11 % [facility] Eosinophils Percent Auto 0.6 0 - 4 % [facility] Basophils Percent Auto 0.3 0 - 2 % [facility] NRBC Pct Auto 0.0 0.0 - 0.2 /100WBC [facility] Neutrophils Absolute Auto 4.3 2.0 - 8.3 x10*3/uL [facility] Imm Gran Abs Auto 0.01 0.00 - 0.03 X10*3/uL [facility] Lymphocytes Absolute Auto 1.6 1.2 - 4.9 X10*3/uL [facility] Monocytes Absolute Auto 0.3 0.1 - 1.2 X10*3/uL [facility] Eosinophils Absolute Auto 0.0 0.0 - 0.4 X10*3/uL [facility] Basophils Absolute Auto 0.0 0.0 - 0.2 X10*3/uL [facility] NRBC Abs Auto 0.000 0.0 - 0.012 X10*3/uL [facility] 04/29/2025 11:0 5 AM EDT 04/29/2025 11:11 AM EDT us Generic External Data Provider LAB BLOOD ORDERAB LES Final Result [facility] [address] [place] [address] [phone] documented in this encounter Visit Diagnoses Not on filedocumented in this encounter Additional Health Concerns Assessment Noted Time PHQ-9 Depression Total Score: 9 12/03/19 25 4:14 PM EDT documented as of this encounter Care Teams Banking Services Officer Relationship Specialty Start Date End Date Amber Quiroz MD [address] [place] [address] PCP - General Family Medicine 07/03/18 Fred Parker, RN [address] [place] [address] Registered Nurse Family Medicine 04/16/25 Sherry Herbert 04/16/25 documented as of this encounter
--- OUTSIDE RECORDS SUMMARY | 2025-04-29 14:19 | XMS_ITS | Encounter Summary ---
Author Organization [employer] Address [address] [facility] 7t [place] [address] Care Team Providers Care Insert Cutter Name Role Phone Amber Quiorz MD Primary Care Provider Fred Parker RN Unavailable [phone] Sherry Herbert Unavailable Reason for Visit * Reason Onset Date Comments status of oral surgery appt 11/11/2024 Encounter Details Date Type Department Care Team ([facility] st Contact Info) Description 11/11/2024 Telephone [facility] CH[facility] ADULT DENTAL [address] [place], [place] [phone] Francisco Mohan, TRAY [address] [place], [place] [phone] status of oral surgery appt Social History [...] 9:30 AM EDT Clinical Support [facility] CHC MED & PEDS [address] [place] [address] Rachelle Lucero, RN 505 [place] [address] 05/26/2025 10:00 AM EST Office Visit [facility] MEDICINE [address] [place] [address] Amber Quiroz MD [address] [place] [address] documented as of this encounter Visit Diagnoses Not on filedocumented in this encounter Care Teams Insert Cutter Relationship Specialty Start Date End Date Amber Quiroz MD [address] [place] [address] PCP - General Family Medicine 07/03/18 Fred Parker, RN 505 [facility] [place] [address] Registered Nurse Family Medicine 04/16/25 Sherry Herbert 04/16/25 documented as of this encounter
--- OUTSIDE RECORDS SUMMARY | 2025-04-29 14:19 | XMS_ITS | Encounter Summary ---
Author Organization [employer] Address [address] [facility] [address] 7t [place] [address] Care Team Providers Care Administrative Underwriter Name Role Phone Amber Quiroz MD Primary Care Provider Fred Parker RN Unavailable [phone] Sherry Herbert Unavailable Encounter Details Date Type Department Care Team (Late st Contact Info) Description 11/24/2023 Telephone [facility] MEDICINE [address] [place] [address] Amber Quiroz MD [address] [place] [address] Social History Tobacco Use Types [...] Description 04/30/2025 9:30 AM EDT Clinical Support [facility] CHC MED & PEDS [address] [place] [address] Rachelle Lucero RN 505 [place] [address] 05/26/2025 10:00 AM EST Office Visit [facility] MEDICINE [address] [place] [address] Amber Quiroz MD [address] [place] [address] documented as of this encounter Visit Diagnoses Not on filedocumented in this encounter Care Teams Administrative Underwriter Relationship Specialty Start Date End Date Amber Quiroz MD [address] [place] [address] PCP - General Family Medicine 07/03/18 Fred Parker, DOROTA [address] [place] [address] Registered Nurse Family Medicine 04/16/25 Sherry Herbert 04/16/25 documented as of this encounter
--- OUTSIDE RECORDS SUMMARY | 2025-04-29 14:19 | XMS_ITS | Encounter Summary ---
Author Organization [employer] Address [address] [facility] 7t [place] [address] Care Team Providers Care Office Lead Name Role Phone Amber Quiroz MD Primary Care Provider [phone] Fred Parker RN Unavailable [phone] Sherry Herbert Unavailable Reason for Visit * Reason Onset Date Comments Triage 04/29/2025 Encounter Details Date Type Department Care Team (Late st Contact Info) Description 04/29/2025 Telephone [facility] [address] [place] [address] Amber Quiroz MD [address] [place], [place] [phone] Triage Social History Tobacco Use Types Packs/Day [...] encounter Miscellaneous Notes * Telephone Encounter - Krupa Serna RN - 04/29/2025 10:19 AM EDT Patient presented to walk in [place] and placed on schedule to be seen for asthma then pt took a seat. Within minutes of being seated pt came to the front sight attacher crunched over holding right side states please call an ambulance, front sight attacher came for a nurse pt was brought back to triage room in a wheel chair to assess. Patient was crying loudly reporting 10/10 pain. Pt reports history of kidney stateshas been having right sided kidney pain for three days which is now worse and has blood in her urine she then ask for ambulance again 911 initiated and pt transported to [facility]. Will forward to green team nurse for follow up and LINEN CHECKER nurse as patient has an appointment tomorrow. documented in this encounter Plan of Treatment Upcoming Encounters Date Type Department Care Team (Late st Contact Info) Description 04/30/2025 9:30 AM EDT Clinical Support [facility] MED & PEDS [address] [place] [address] Rachelle Lucero RN 505 [place] [address] 05/26/2025 10:00 AM EST Office Visit [facility] MEDICINE 230 [facility] [place] [address] Amber Quiroz MD 230 [facility] [place] [address] documented as of this encounter Visit Diagnoses Not on filedocumented in this encounter Additional Health Concerns Assessment Noted Time PHQ-9 Depression Total Score: 9 12/03/19 25 4:14 PM EDT documented as of this encounter Care Teams Office Lead Relationship Specialty Start Date End Date Amber Quiroz MD [address] [place] [address] PCP - General Family Medicine 07/03/18 Fred Parker, RN [address] [place] [address] Registered Nurse Family Medicine 04/16/25 Sherry Herbert 04/16/25 documented as of this encounter
--- OUTSIDE RECORDS SUMMARY | 2025-04-29 14:19 | XMS_ITS | Clinical Summary ---
Author Organization [facility] Address [address] [place] [address] Phone Care Team Providers Care Neonatal Social Worker Name Role Phone Physician, Pcp Unknown Primary Care Provider Faye vailable Allergies Active Allergy Reactions Criticality Noted Date Comments Aspirin Congestion of the throat 08/21/2024 Ibuprofen Swallowing Problem 08/21/2024 Acetaminophen Swallowing Problem 08/21/2024 Medications cephalexin (KEFLEX) 500 mg capsule Take 1 capsule (500 mg total) by mouth 3 (three) times a day for 7 days. 21 each 04/18/2025 04/25/20 25 Active Problems No known active problems Encounters Date Type Department Care Team Description 04/18/2025 4:48 PM EDT - 04/18/2025 8:58 PM EDT Emergency [facility] Emergency [address] [place] [address] Teo Holly MD Pyelonephritis (Primary [...] reflex microscopic (04/18/2025 7:57 PM EDT) Specific [place] Urine 1.033(H) 1.003 - 1.030 LAB URINALYSIS - AUTOMATED METHOD 04/18/2025 8:23 PM EDT [facility] pH, Urine 6.0 5.0 - 8.0 pH LAB URINALYSIS - AUTOMATED METHOD 04/18/2025 8:23 PM EDT [facility] Leukocytes, Urine Trace(A) Negative LAB URINALYSIS - AUTOMATED METHOD 04/18/2025 8:23 PM [facility] Nitrite, Urine Negative Negative LAB URINALYSIS - AUTOMATED METHOD 04/18/2025 8:23 PM [facility] Protein, Urine Trace <=Trace mg/dL LAB URINALYSIS - AUTOMATED METHOD 04/18/2025 8:23 PM [facility] Glucose, Urine Negative Negative mg/dL LAB URINALYSIS - AUTOMATED METHOD 04/18/2025 8:23 PM [facility] Ketones, Urine Negative Negative mg/dL LAB URINALYSIS - AUTOMATED METHOD 04/18/2025 8:23 PM [facility] Urobilinogen , Urine 0.2 0.2 - 1.0 mg/dL LAB URINALYSIS - AUTOMATED METHOD 04/18/2025 8:23 PM [facility] Bilirubin, Urine Negative Negative LAB URINALYSIS - AUTOMATED METHOD 04/18/2025 8:23 PM [facility] Blood, Urine Negative Negative LAB URINALYSIS - AUTOMATED METHOD 04/18/2025 8:23 PM [facility] RBC, Urine 1.5 0 - 4 /HPF LAB URINALYSIS - AUTOMATED METHOD 04/18/2025 8:23 PM [facility] WBC, Urine 16.5(H) 0 - 4 /HPF LAB URINALYSIS - AUTOMATED METHOD 04/18/2025 8:23 PM [facility] Squamous Epithelial, Urine >100(H) 0 - 60 /LPF LAB URINALYSIS - AUTOMATED METHOD 04/18/2025 8:23 PM [facility] Bacteria, Urine Moderate(A) Negative /HPF LAB URINALYSIS - AUTOMATED METHOD 04/18/2025 8:23 PM [facility] Hyaline Casts, Urine 8.8(H) 0 - 3 /LPF LAB URINALYSIS - AUTOMATED METHOD 04/18/2025 8:23 PM [facility] Urine Urine specimen obtained by clean catch procedure / Unknown Non-blood Collection / Unknown 04/18/2025 7:57 PM EDT 04/18/2025 8:01 PM EDT us Teo Holly MD LAB URINE ORDERABLES Final R esult [facility] ([facility]) [facility] [address] [place] [address], [place] [phone] * CT Abdomen Pelvis w Contrast (04/18/2025 [...] LAB HEMETOLOGY METHOD 04/18/2025 5:48 PM EDT [facility] RBC 4.30 3.80 - 4.80 M/mcL LAB HEMETOLOGY METHOD 04/18/2025 5:48 PM EDT [facility] Hemoglobin 11.3(L) 11.5 - 16.0 g/dL LAB HEMETOLOGY METHOD 04/18/2025 5:48 PM EDT [facility] Hematocrit 36.1 35.0 - 47.0 % LAB HEMETOLOGY METHOD 04/18/2025 5:48 PM EDT [facility] MCV 84.0 79.0 - 98.0 FL LAB HEMETOLOGY METHOD 04/18/2025 5:48 PM EDT [facility] MCH 26.3(L) 27.0 - 32.0 pcg LAB HEMETOLOGY METHOD 04/18/2025 5:48 PM EDT [facility] MCHC 31.3(L) 32.0 - 37.0 g/dL LAB HEMETOLOGY METHOD 04/18/2025 5:48 PM EDT [facility] RDW 15.7(H) 11.0 - 15.0 % LAB HEMETOLOGY METHOD 04/18/2025 5:48 PM EDT [facility] Platelets 303 130 - 400 K/mcL LAB HEMETOLOGY METHOD 04/18/2025 5:48 PM EDT [facility] MPV 9.9 7.0 - 11.0 FL LAB HEMETOLOGY METHOD 04/18/2025 5:48 PM EDT [facility] NRBC 0.0 <1.0 % LAB HEMETOLOGY METHOD 04/18/2025 5:48 PM EDT [facility] NRBC Absolute 0.00 <0.10 K/mcL LAB HEMETOLOGY METHOD 04/18/2025 5:48 PM EDT [facility] Neutrophils Relative 50.8 % LAB HEMETOLOGY METHOD 04/18/2025 5:48 PM EDT [facility] Lymphocytes Relative 36.9 % LAB HEMETOLOGY METHOD 04/18/2025 5:48 PM EDT [facility] Monocytes Relative 7.8 % LAB HEMETOLOGY METHOD 04/18/2025 5:48 PM EDT [facility] Eosinophils Relative 3.7 % LAB HEMETOLOGY METHOD 04/18/2025 5:48 PM EDT [facility] Basophils Relative 0.4 % LAB HEMETOLOGY METHOD 04/18/2025 5:48 PM EDT [facility] Immature Granulocytes Relative 0.4 % LAB HEMETOLOGY METHOD 04/18/2025 5:48 PM EDT [facility] Neutrophils Absolute 3.59 1.50 - 7.00 K/mcL LAB HEMETOLOGY METHOD 04/18/2025 5:48 PM EDT [facility] Lymphocytes Absolute 2.61 1.00 - 5.00 K/mcL LAB HEMETOLOGY METHOD 04/18/2025 5:48 PM EDT [facility] Monocytes Absolute 0.55 0.20 - 1.00 K/mcL LAB HEMETOLOGY METHOD 04/18/2025 5:48 PM EDT [facility] Eosinophils Absolute 0.26 0.00 - 0.50 K/mcL LAB HEMETOLOGY METHOD 04/18/2025 5:48 PM EDT [facility] Basophils Absolute 0.03 0.00 - 0.20 K/mcL LAB HEMETOLOGY METHOD 04/18/2025 5:48 PM EDT [facility] Immature Granulocytes Absolute 0.03 0.00 - 0.03 K/mcL LAB HEMETOLOGY METHOD 04/18/2025 5:48 PM EDT [facility] Blood Venous blood specimen / Unknown Venipuncture / Unknown 04/18/2025 4:59 PM EDT 04/18/2025 5:34 PM EDT us Teo Holly MD LAB BLOOD ORDERABLES Final R esult [facility] [address] [place] [address], * Magnesium (04/18/2025 4:59 PM EDT) Magnesium 2.1 1.9 - 2.6 mg/dL LAB CHEMISTRY METHOD 04/18/2025 6:28 PM EDT [facility] Blood Venous blood specimen / Unknown Venipuncture / Unknown 04/18/2025 4:59 PM EDT 04/18/2025 5:34 PM EDT Teo Holly MD LAB BLOOD ORDERABLES Final R esult Performing Organization Address City/[facility]/ZIP Co de Phone Number [facility] [address] [place] [address], [place] [phone] * Lipase (04/18/2025 4:59 PM EDT) Lipase 35 13 - 75 unit/L LAB CHEMISTRY METHOD 04/18/2025 6:28 PM EDT [facility] Blood Venous blood specimen / Unknown Venipuncture / Unknown 04/18/2025 4:59 PM EDT 04/18/2025 5:34 PM EDT Teo Holly MD LAB BLOOD ORDERABLES Final R esult Performing Organization Address City/[facility]/ZIP Co de Phone Number [facility] [address] [place] [address], [place] [phone] * (ABNORMAL) Comprehensive Metabolic Panel (CMP) (04/18/2025 4:59 PM EDT) Sodium 144 133 - 145 mmol/L LAB CHEMISTRY METHOD 04/18/2025 6:30 PM EDT [facility] Potassium 3.8 3.5 - 5.5 mmol/L LAB CHEMISTRY METHOD 04/18/2025 6:30 PM EDT [facility] Chloride 112(H) 96 - 110 mmol/L LAB CHEMISTRY METHOD 04/18/2025 6:30 PM EDT [facility] CO2 27 21 - 32 mmol/L LAB CHEMISTRY METHOD [facility]/18[facility]25 [facility] Anion Gap 5 3 - 11 LAB CHEMISTRY METHOD 04/18/2025 6:30 PM [facility] Glucose 119(H) 70 - 100 mg/dL LAB CHEMISTRY METHOD 04/18/2025 6:30 PM [facility] BUN 11 5 - 25 mg/dL LAB CHEMISTRY METHOD 04/18/2025 6:30 PM [facility] Creatinine 0.69 0.50 - 1.10 mg/dL LAB CHEMISTRY METHOD 04/18/2025 6:30 PM [facility] eGFR 99 >=60 mL/min/1. 73m2 LAB CHEMISTRY METHOD 04/18/2025 6:30 PM [facility] Comment:Calculation based on the Chronic Kidney Disease Epidemiology Collaboration (CKD-EPI) equation refit without adjustment for race. BUN/Creatinine Ratio 15.9 LAB CHEMISTRY METHOD 04/18/2025 6:30 PM [facility] Calcium 8.7 8.5 - 10.5 mg/dL LAB CHEMISTRY METHOD 04/18/2025 6:30 PM [facility] AST (SGOT) 26 10 - 42 unit/L LAB CHEMISTRY METHOD 04/18/2025 6:30 PM [facility] ALT (SGPT) 36 10 - 60 unit/L LAB CHEMISTRY METHOD 04/18/2025 6:30 PM [facility] Alkaline Phosphatase 138(H) 42 - 121 unit/L LAB CHEMISTRY METHOD 04/18/2025 6:30 PM [facility] Total Protein 7.0 6.0 - 8.0 g/dL LAB CHEMISTRY METHOD 04/18/2025 6:30 PM [facility] Albumin 3.8 3.2 - 5.0 g/dL LAB CHEMISTRY METHOD 04/18/2025 6:30 PM [facility] Total Bilirubin 0.2 0.0 - 1.4 mg/dL LAB CHEMISTRY METHOD 04/18/2025 6:30 PM EDT [facility] Blood Venous blood specimen / Unknown Venipuncture / Unknown 04/18/2025 4:59 PM EDT 04/18/2025 5:34 PM EDT us Teo Holly MD LAB BLOOD ORDERABLES Final R esult [facility] ([facility] [address] [place] [address], [place] [phone] from Last 3 Months Insurance MEDICAID - [place] Care Teams Neonatal Social Worker Relationship Specialty Start Date End Date Physician, Pcp Unknown PCP - General 04/18/25
--- OUTSIDE RECORDS SUMMARY | 2025-04-29 14:19 | XMS_ITS | Encounter Summary ---
Author Organization [employer] Address [address] [facility] 7t [place] [address] Care Team Providers Care Manager Net Name Role Phone Amber Quiroz MD Primary Care Provider [phone] Fred Parker RN Unavailable [phone] Sherry Herbert Unavailable Reason for Visit * Reason Onset Date Comments Appointment Request 11/22/2023 Encounter Details Date Type Department Care Team (Late st Contact Info) Description 11/22/2023 Telephone [facility] MEDICINE [address] [place] [address] Amber Quiroz MD [address] [place], [place] [phone] Appointment Request Social History Tobacco Use Types [...] due tosleep difficulty. Please contact pt at [phone]. documented in this encounter Plan of Treatment Upcoming Encounters Date Type Department Care Team (Late st Contact Info) Description 04/30/2025 9:30 AM EDT Clinical Support [facility] CHC MED & PEDS [address] [place] [address] Rachelle Lucero RN [address] [place] [address] 05/26/2025 10:00 AM EST Office Visit [facility] MEDICINE [address] [place] [address] Amber Quiroz MD [address] [place] [address] documented as of this encounter Visit Diagnoses Not on filedocumented in this encounter Care Teams Manager Net Relationship Specialty Start Date End Date Amber Quiroz MD [address] [place] [address] PCP - General Family Medicine 07/03/18 Fred Parker, RN [address] [place] [address] Registered Nurse Family Medicine 04/16/25 Sherry Herbert 04/16/25 documented as of this encounter
--- OUTSIDE RECORDS SUMMARY | 2025-04-29 14:19 | XMS_ITS | Encounter Summary ---
Author Organization [facility] Address [address] [place] [address] Care Team Providers Care Lead Programmer Name Role Phone Physician, Pcp Unknown Primary Care Provider Faye vailable Encounter Details Date Type Department Care Team (Late st Contact Info) Description 09/25/2024 Lab Requisition [facility] - Main Lab [address] [facility] [place] [address] Zachery Chi PA [address] [place] [address] [place] [address] Calculus of ureter Social History [...] ult [facility] [address] [place] [address], documented in this encounter Visit Diagnoses Diagnosis Calculus of ureter documented in this encounter Care Teams Lead Programmer Relationship Specialty Start Date End Date Physician, Pcp Unknown PCP - General 04/18/25 documented as of this encounter
--- OUTSIDE RECORDS SUMMARY | 2025-04-29 14:19 | XMS_ITS | Encounter Summary ---
Author Organization [employer] Address [address] [facility] 7t [place] [address] Care Team Providers Care Soldering Technician Name Role Phone Amber Quiroz MD Primary Care Provider [phone] Fred Parker RN Unavailable [phone] Sherry Herbert Unavailable Encounter Details Date Type Department Care Team (Latest Contact Info) Description 04/29/2025 Travel Social History Tobacco Use Types Packs/Day [...] Description 04/30/2025 9:30 AM EDT Clinical Support [facility] CHC MED & PEDS [address] [place] [address] Rachelle Lucero RN [address] [place] [address] 05/26/2025 10:00 AM EST Office Visit [facility] MEDICINE [address] [place] [address] Amber Quiroz MD [address] [place] [address] documented as of this encounter Visit Diagnoses Not on filedocumented in this encounter Additional Health Concerns Assessment Noted Time PHQ-9 Depression Total Score: 9 12/03/19 25 4:14 PM EDT documented as of this encounter Care Teams Soldering Technician Relationship Specialty Start Date End Date Amber Quiroz MD [address] [place] [address] PCP - General Family Medicine 07/03/18 Fred Parker, RN [address] [place] [address] Registered Nurse Family Medicine 04/16/25 Sherry Herbert 04/16/25 documented as of this encounter
--- OUTSIDE RECORDS SUMMARY | 2025-04-29 14:20 | XMS_ITS | Encounter Summary ---
Author Organization [employer] Address [address] [facility] 7t [place] [address] Care Team Providers Care Photography Teacher Name Role Phone Amber Quiroz MD Primary Care Provider [phone] Fred Parker RN Unavailable [phone] Sherry Herbert Unavailable Reason for Visit * Reason Comments Med Refill Encounter Details Date Type Department Care Team (Late st Contact Info) Description 04/24/[address] [facility] CHC MED & PEDS [address] [place], [place] [phone] Amber Quiroz MD [address] [place], [place] [phone] Moderate persistent asthma without complication; Flank pain; [...] Telephone Encounter - Rachelle Lucero RN - 04/24/2025 1:59 PM EDT Tc back to pt. [facility] [place] scheduled for 04/30 at 9:30am at [facility]. Pt states she lives in [place]. Pt reminded of the importance to keep this appointment, advised we can do a refill of Tramadol once she keept=s the appointment, pt verbalized understanding, documented in this encounter Plan of Treatment Upcoming Encounters Date Type Department Care Team (Late st Contact Info) Description 04/30/2025 9:30 AM EDT Clinical Support [facility] MED & PEDS [address] [place] [address] Rachelle Lucero, [place] [address] [place] [address] 05/26/2025 10:00 AM EST Office Visit [facility] MEDICINE [address] [place] [phone] Amber Quiroz MD [address] [place] [address] documented as of this encounter Visit Diagnoses Diagnosis Moderate persistent asthma without complication Flank pain Abdominal pain, unspecified site History of total knee replacement, unspecified laterality Primary osteoarthritis of left knee Loin pain hematuria syndrome Chronic back pain, unspecified back location, unspecified back pain laterality documented in this encounter Additional Health Concerns Assessment Noted Time PHQ-9 Depression Total Score: 9 12/03/19 25 4:14 PM EDT documented as of this encounter Care Teams Photography Teacher Relationship Specialty Start Date End Date Amber Quiroz MD [address] [place] [address] PCP - General Family Medicine 07/03/18 Fred Parker, DOR[place] [address] [place] [address] Registered Nurse Family Medicine 04/16/25 Sherry Herbert 04/16/25 documented as of this encounter
--- OUTSIDE RECORDS SUMMARY | 2025-04-29 14:20 | XMS_ITS | Encounter Summary ---
Author Organization [employer] Address [address] [facility] 7t [place] [address] Care Team Providers Care Receptionist Name Role Phone Amber Quiroz MD Primary Care Provider [phone] Fred Parker RN Unavailable Sherry Herbert Unavailable Reason for Visit * Reason Onset Date Comments Med Refill 01/10/2024 Encounter Details Date Type Department Care Team (Late st Contact Info) Description 01/10/2024 Telephone [facility] MEDICINE [address] [place] [address] Amber Qiuroz MD [address] [place], [place] [phone] Med Refill Social History Tobacco Use Types [...] immediate release tablet To be sent to: [facility] - [place], [place] - [address] [place] [address] documented in this encounter Plan of Treatment Upcoming Encounters Date Type Department Care Team (Late st Contact Info) Description 04/30/2025 9:30 AM EDT Clinical Support [facility] CHC MED & PEDS [address] [place] [address] Rachelle Lucero RN [address] [place] [address] 05/26/2025 10:00 AM EST Office Visit [facility] MEDICINE [address] [place] [address] Amber Quiroz MD [address] [place] [address] documented as of this encounter Visit Diagnoses Not on filedocumented in this encounter Care Teams Receptionist Relationship Specialty Start Date End Date Amber Quiroz MD [address] [place] [address] PCP - General Family Medicine 07/03/18 Fred Parker RN [address] [place] [address] Registered Nurse Family Medicine 04/16/25 Sherry Herbert 04/16/25 documented as of this encounter
--- OUTSIDE RECORDS SUMMARY | 2025-04-29 14:20 | XMS_ITS | Encounter Summary ---
Author Organization [employer] Address [address] [facility] 7 [place] [address] Care Team Providers Care Machine Welt Butter Name Role Phone Amber Quiroz MD Primary Care Provider [phone] Fred Parker RN Unavailable [phone] Sherry Herbert Unavailable Reason for Visit * Reason Comments Med Refill Encounter Details Date Type Department Care Team (Late st Contact Info) Description 04/26/2023 Refill [facility] MEDICINE [address] [place], [place] [phone] Amber Quiroz MD [address] [place], [place] [phone] Nausea Social History Tobacco Use Types Packs/Day [...] 9:30 AM EDT Clinical Support [facility] CHC MED & PEDS [address] [place] [address] Rachelle Lucero, [place] [address] [place] [address] 05/26/2025 10:00 AM EST Office Visit [facility] MEDICINE [address] [place] [address] Amber Quiroz MD [address] [place] [address] documented as of this encounter Visit Diagnoses Diagnosis Nausea Nausea alone documented in this encounter Care Teams Machine Welt Butter Relationship Specialty Start Date End Date Amber Quiroz MD [address] [place] [address] PCP - General Family Medicine 07/03/18 Fred Parker RN [address] [place] [address] Registered Nurse Family Medicine 04/16/25 Sherry Herbert 04/16/25 documented as of this encounter
--- OUTSIDE RECORDS SUMMARY | 2025-04-29 14:20 | XMS_ITS | Encounter Summary ---
Author Organization [employer] Address [address] [facility] 7t [place] [address] Care Team Providers Care Architectural Wood Model Maker Name Role Phone Amber Quiroz MD Primary Care Provider [phone] Fred Parker RN Unavailable [phone] Sherry Herbert Unavailable Reason for Visit * Reason Onset Date Comments Nurse Triage 01/11/2024 Encounter Details Date Type Department Care Team (Late st Contact Info) Description 01/11/2024 Telephone [facility] MEDICINE [address] [place] [address] Amber Quiroz MD [address] [place], [place] [phone] Nurse Triage Social History Tobacco Use Types [...] [facility]. * Telephone Encounter - Lacy Sahni LPN - 01/11/2024 3:31 PM EDT Triage in process. Patient requesting pain medication for kidney stone pain in [facility] 01/07/24-01/08/24. Patient not seeing any stones passing. [...] worse Override Notes: Seen and treated at [facility] known kidney stones wants something for pain [...] Description 04/30/2025 9:30 AM EDT Clinical Support [facility] CHC MED & PEDS [address] [place] [address] Rachelle Lucero RN [address] [place] [address] 05/26/2025 10:00 AM EST Office Visit [facility] MEDICINE [address] [place] [address] Amber Quiroz MD [address] [place] [address] documented as of this encounter Visit Diagnoses Not on filedocumented in this encounter Care Teams Architectural Wood Model Maker Relationship Specialty Start Date End Date Amber Quiroz MD [address] [place] [address] PCP - General Family Medicine 07/03/18 Fred Parker, RN [address] [place] [address] Registered Nurse Family Medicine 04/16/25 Sherry Herbert 04/16/25 documented as of this encounter
--- OUTSIDE RECORDS SUMMARY | 2025-04-29 14:20 | XMS_ITS | Encounter Summary ---
Author Organization [employer] Address 75 [facility] 7 [place] [address] Care Team Providers Care Fender Finisher Name Role Phone Amber Quiroz MD Primary Care Provider [phone] Fred Parker RN Unavailable [phone] Sherry Herbert Unavailable Reason for Visit * Reason Onset Date Comments Med Refill 04/24/2025 Encounter Details Date Type Department Care Team (Late st Contact Info) Description 04/24/2025 Telephone [facility] MEDICINE [address] [place] [address] Amber Quiroz MD [address] [place], [place] [phone] Med Refill Social History Tobacco Use Types [...] encounter Miscellaneous Notes * Telephone Encounter - Lauri Dsouza - 04/24/2025 1:27 PM EDT Patient walked in requesting a refill on the following medication: traMADol (Ultram) 50 MG tablet Patient is also requesting to reschedule the missed appointment with Rachelle. documented in this encounter Plan of Treatment Upcoming Encounters Date Type Department Care Team (Late st Contact Info) Description 04/30/2025 9:30 AM EDT Clinical Support [facility] CHC MED & PEDS [address] [place] [address] Rachelle Lucero RN [address] [place] [address] 05/26/2025 10:00 AM EST Office Visit [facility] MEDICINE [address] [place], [place] [phone] Amber Quiroz MD [address] [place] [address] documented as of this encounter Visit Diagnoses Not on filedocumented in this encounter Additional Health Concerns Assessment Noted Time PHQ-9 Depression Total Score: 9 12/03/19 25 4:14 PM EDT documented as of this encounter Care Teams Fender Finisher Relationship Specialty Start Date End Date Amber Quiroz MD [address] [place] [address] PCP - General Family Medicine 07/03/18 Fred Parker RN [address] [place] [address] Registered Nurse Family Medicine 04/16/25 Sherry Herbert 04/16/25 documented as of this encounter
--- OUTSIDE RECORDS SUMMARY | 2025-04-29 14:20 | XMS_ITS | Encounter Summary ---
Author Organization [employer] Address [address] [facility] 7t [place] [address] Care Team Providers Care Informaticist Name Role Phone Amber Quiroz MD Primary Care Provider [phone] Fred Parker RN Unavailable [phone] Sherry Herbert Unavailable Encounter Details Date Type Department Care Team (Late st Contact Info) Description 12/18/2024 Telephone [facility] MEDICINE [address] [place], [place] [phone] Amber Quiroz MD [address] [place], [place] [phone] Social History Tobacco Use Types Packs/Day Years [...] returning call. Pt provided temporary contact number [phone] documented in this encounter Plan of Treatment Upcoming Encounters Date Type Department Care Team (Late st Contact Info) Description 04/30/2025 9:30 AM EDT Clinical Support [facility] CHC MED & PEDS [address] [place] [address] Rachelle Lucero, RN [address] [place] [address] 05/26/2025 10:00 AM EST Office Visit [facility] MEDICINE [address] [place] [address] Amber Quiroz MD [address] [place] [address] documented as of this encounter Visit Diagnoses Not on filedocumented in this encounter Additional Health Concerns Assessment Noted Time PHQ-9 Depression Total Score: 9 12/03/19 25 4:14 PM EDT documented as of this encounter Care Teams Informaticist Relationship Specialty Start Date End Date Amber Quiroz MD [address] [place] [address] PCP - General Family Medicine 07/03/18 Fred Parker, DOR[place] [address] [place] [address] Registered Nurse Family Medicine 04/16/25 Sherry Herbert 04/16/25 documented as of this encounter
--- OUTSIDE RECORDS SUMMARY | 2025-04-29 14:20 | XMS_ITS | Encounter Summary ---
Author Organization [employer] Address 75 [facility] 7 [place] [address] Care Team Providers Care Rubbish Collection Supervisor Name Role Phone Amber Quiroz MD Primary Care Provider [phone] Fred Parker RN Unavailable [phone] Sherry Herbert Unavailable Encounter Details Date Type Department Care Team (Late st Contact Info) Description 11/16/[address] [facility] MEDICINE [address] [place] [phone] Amber Quiroz MD [address] [place], [place] [phone] Social History Tobacco Use Types Packs/Day Years [...] 9:30 AM EDT Clinical Support [facility] MED & PEDS 505 [place] [address] Rachelle Lucero, RN 505 [place] [address] 05/26/2025 10:00 AM EST Office Visit [facility] MEDICINE 230 [place] [address] Amber Quiroz MD 230 [place] [address] documented as of this encounter Visit Diagnoses Not on filedocumented in this encounter Care Teams Rubbish Collection Supervisor Relationship Specialty Start Date End Date Amber Quiroz MD 230 [place] [address] PCP - General Family Medicine 07/03/18 Fred Parker, DOROTA 505 [place] [address] Registered Nurse Family Medicine 04/16/25 Sherry Herbert 04/16/25 documented as of this encounter
--- OUTSIDE RECORDS SUMMARY | 2025-04-29 14:20 | XMS_ITS | Encounter Summary ---
Author Organization [employer] Address 75 [facility] 7t [place] [address] Care Team Providers Care Child Monitor Name Role Phone Amber Quiroz MD Primary Care Provider [phone] Fred Parker RN Unavailable [phone] Sherry Herbert Unavailable Encounter Details Date Type Department Care Team (Latest Contact Info) Description 04/24/2025 Travel Social History Tobacco Use Types Packs/Day Years Used Date Smoking Tobacco: Former Cigarettes Depression Answer Date Recorded Patient Health Questionnaire-9 Score 9 12/02/2024 Patient Health Questionnaire-9 Score 9 12/02/2024 Last PHQ-9: Questionnaire Data Not on file 0 12/02/2024 Housing Stability Answer Date Recorded What is your housing situation today? I have oly soira 05/08/[address] you li [...] Description 04/30/2025 9:30 AM EDT Clinical Support [facility] CHC MED & PEDS 505 [place] [address] Rachelle Lucero RN 505 [place] [address] 05/26/2025 10:00 AM EST Office Visit [facility] MEDICINE 230 [place] [address] Amber Quiroz MD 230 [place] [address] documented as of this encounter Visit Diagnoses Not on filedocumented in this encounter Additional Health Concerns Assessment Noted Time PHQ-9 Depression Total Score: 9 12/03/19 25 4:14 PM EDT documented as of this encounter Care Teams Child Monitor Relationship Specialty Start Date End Date Amber Quiroz MD 230 [place] [address] PCP - General Family Medicine 07/03/18 Fred Parker, RN 505 [place] [address] Registered Nurse Family Medicine 04/16/25 Sherry Herbert 04/16/25 documented as of this encounter
--- OUTSIDE RECORDS SUMMARY | 2025-04-29 14:20 | XMS_ITS | Encounter Summary ---
Author Organization [employer] Address 75 [facility] 7 [place] [address] Care Team Providers Care Facilities Plant Engineer Name Role Phone Amber Quiroz MD Primary Care Provider [phone] Fred Parker RN Unavailable [phone] Sherry Herbert Unavailable Reason for Visit * Reason Comments Care Coordination C3CM- chart review Encounter Details Date Type Department Care Team (Latest Contact Info) Description 04/16/2025 Patient Outreach [facility] CHC MED & PEDS [address] [place], [place] [phone] Amber Quiroz MD 230 [place], [place] [phone] Care Coordination (C3CM- chart review) Social History [...] abdominal pain, arthralgia of hip. Specialists include [facility] urology, ophthalmology, [facility] orthopaedic surgery. ED visits within the last 12 months include [facility] 04/15/25, [facility] 03/27/25, [facility] 03/08/25, [facility] 02/19/25[facility] 02/08/25, [facility] 02/02/25, [facility] 01/09/25, [facility] 12/28/24, [facility] 12/25/24, [facility] 12[facility]12/24, [facility] 12/10/24, [facility] 12/07/24, [facility] 11/29/24, etc... Last appointmentin PCP office on . No future appointment scheduled at this time. documented in this encounter Plan of Treatment Upcoming Encounters Date Type Department Care Team (Late st Contact Info) Description 04/30/2025 9:30 AM EDT Clinical Support [facility] CH[facility] MED & PEDS 505 [place] [address] Rachelle Lucero RN 505 [place] [address] 05/26/2025 10:00 AM EST Office Visit [facility] MEDICINE 230 [place] [address] Amber Quiroz MD 230 [place] [address] documented as of this encounter Visit Diagnoses Not on filedocumented in this encounter Additional Health Concerns Assessment Noted Time PHQ-9 Depression Total Score: 9 12/03/19 4:14 PM EDT documented as of this encounter Care Teams Facilities Plant Engineer Relationship Specialty Start Date End Date Amber Quiroz MD 230 [place] [address] PCP - General Family Medicine 07/03/18 Ferd Parker, DOROTA 505 [place] [address] Registered Nurse Family Medicine 04/16/25 Sherry Herbert 04/16/25 documented as of this encounter
--- OUTSIDE RECORDS SUMMARY | 2025-04-29 14:20 | XMS_ITS | Encounter Summary ---
Author Organization [employer] Address 75 [facility] 7t [place] [address] Care Team Providers Care Driveway Sealer Name Role Phone Amber Quiroz MD Primary Care Provider [phone] Fred Parker RN Unavailable [phone] Sherry Herbert Unavailable Encounter Details Date Type Department Care Team (Late st Contact Info) Description 12/14/2024 Orders Only [facility] MEDICINE 230 [place], [place] [phone] Amber Quiroz MD 230 [place] [address] Hyperglycemia (Primary Dx); Flank pain; [...] Description 04/30/2025 9:30 AM EDT Clinical Support [facility] CHC MED & PEDS 505 [place] [address] Rachelle Lucero, DOROTA 505 [place] [address] 05/26/2025 10:00 AM EST Office Visit [facility] MEDICINE 230 [place] [address] Amber Quiroz MD 230 [place] [address] Scheduled Orders Name Type Priority Associated Diagnoses [...] documented as of this encounter Care Teams Driveway Sealer Relationship Specialty Start Date End Date Amber Quiroz MD 230 [place] [address] PCP - General Family Medicine 07/03/18 Fred Parker, DOROTA 505 [place] [address] Registered Nurse Family Medicine 04/16/25 Sherry Herbert 04/16/25 documented as of this encounter
--- OUTSIDE RECORDS SUMMARY | 2025-04-29 14:20 | XMS_ITS | Encounter Summary ---
Author Organization [employer] Address [address] [place] [address] 7 [place] [address] Care Team Providers Care Assembler Show Motor Name Role Phone Amber Quiroz MD Primary Care Provider [phone] Fred Parker RN Unavailable [phone] Sherry Herbert Unavailable Encounter Details Date Type Department Care Team (Late st Contact Info) Description 07/28/2022 Orders Only [facility] MEDICINE [address] [place] [address] [phone] Anabell Martinez LPN Social History Tobacco Use [...] Description 04/30/2025 9:30 AM EDT Clinical Support [facility] CHC MED & PEDS 505 [place] [address] Rachelle Lucero, DOROTA 505 [place] [address] 05/26/2025 10:00 AM EST Office Visit [facility] MEDICINE [address] [place] [address] [phone] Amber Quiroz MD 230 [place] [address] documented as of this encounter Procedures Procedure [...] (08/02/2022 12:29 AM EST) Color Urine Yellow [facility] Appearance Urine Turbid [facility] PH 6.5 5.0 - 9.0 [facility] Glucose Urine UA Negative Negative mg/dL [facility] Urine Blood Trace(A) Negative [facility] Specific [place] - Urine 1.020 1.005 - 1.025 [facility] Urine Protein 30 (1+)(A) Neg-Trace mg/dL [facility] Urine Ketones Negative Negative mg/dL [facility] Nitrite Urine Negative Negative [facility] Leukocyte Esterase Urine Large (3+)(A) Negative [facility] RBC Urine 0-2 0 - 2 /HPF [facility] Urine WBC >50(A) 0 - 5 /HPF [facility] Urine Squamous Epithelial Cell 6-10 0 - 2 /HPF [facility] Urine Bacteria 1+ None Seen [facility] Hyaline Casts, Urine 3-5 0 - 2 /LPF [facility] 08/02/2022 12:2 9 AM EST 08/02/2022 12:31 AM EST Narrative [facility] - 08/02/2022 12:50 AM EST Urine, Clean Catch [facility] External Provider LAB URI NE ORDERABLES Final Result Performing Organization Address [facility] de Phone Number [facility] [address] [place] [phone] * SARS-CoV-2 RNA, Influenza A/B, and RSV RNA, Ql NAAT (08/02/2022 12:17 AM EST) Influenza A PCR NEGATIVE Negative [facility] Influenza B PCR NEGATIVE Negative [facility] Resp Syncy Virus RNA Qual PCR NEGATIVE Negative [facility] SARS COV2 PCR NEGATIVE Negative [facility] SARS/Flu/RSV Note See Note [facility] Comment:All test results mus t be [...] use by authorized laboratories.Testing performed on the [employer] GeneXpert utilizingreal-time RT-PCR.All SARS CoV2 and positive influenza A/B results arereported to [facility]. 08/02/2022 12:1 7 AM EST 08/02/2022 12:19 AM EST [facility] Exter nal Provider LAB MICROBIOLOGY - GENERAL ORDERABLES Final Result Performing Organization Address [facility] de Phone Number [facility] [address] [place] [phone] * (ABNORMAL) Basic Metabolic Panel (08/02/2022 12:17 AM EST) Sodium 140 135 - 145 mmol/L [facility] Potassium 3.9 3.3 - 5.1 mmol/L [facility] Chloride 105 96 - 108 mmol/L [facility] Carbon Dioxide 24 22 - 29 mmol/L [facility] Anion Gap 15 12 - 20 [facility] Urea Nitrogen (BUN) 14 9 - 16 mg/dL [facility] Creatinine, Serum 0.75 0.5 - 1.4 mg/dL [facility] Creatinine Clr Calc Pharmacy 71.4 [facility] Comment:Provided height and weight: 162.56 cm,63.503 kg.eGFR (calculated from the MDRD study equation) and eCrCl(calculated from the Cockcroft-Gault equation) are based ondifferent parameters and may not yield comparable results.If eCrCl result is absurd, please check patient'sheight/weight. Estimated Glomerular Filt Rate >60 [facility] Comment:NOTE: For -Am erican individuals, multiply the result by 1.210.Chronic Kidney Disease: Estimated GFR < 60 mL/min/1.68y8Nuewzj Kidney Disease: Estimated GFR < 15 mL/min/1.73m2 Glucose 119(H) 60 - 115 mg/dL [facility] Calcium 9.0 8.4 - 10.2 mg/dL [facility] 08/02/2022 12:1 7 AM EST 08/02/2022 12:19 AM EST us [facility] External Provider LAB BLO OD ORDERABLES Final Result [facility] [address] [place] [phone] * (ABNORMAL) CBC auto differential (08/02/2022 12:17 AM EST) White Blood Count 6.4 4.8 - 10.8 X10*3/uL [facility] Red Blood Count 3.96(L) 4.20 - 5.50 X10*6/uL [facility] Hemoglobin 10.8(L) 12.0 - 16.0 g/dl [facility] Hematocrit 33.0(L) 37.0 - 47.0 % [facility] Mean Corpuscular Volume 83.3 80.0 - 98.0 fL [facility] Mean Corpuscular Hemoglobin 27.3 27.0 - 33.0 pg [facility] Mean Corpuscular HGB Conc 32.7 31.0 - 35.0 g/dl [facility] Red Cell Distribution Width 14.2 11.0 - 16.0 % [facility] Platelet Count 202 160 - 400 X10*3/uL [facility] Mean Platelet Volume 9.2(L) 9.4 - 12.3 fL [facility] Neutrophils Percent Auto 68.5 45 - 73 % [facility] Imm Gran Pct Auto 0.2 0.0 - 0.4 % [facility] Lymphocytes Percent Auto 21.9 20 - 40 % [facility] Monocytes Percent Auto 8.6 2 - 11 % [facility] Eosinophils Percent Auto 0.5 0 - 4 % [facility] Basophils Percent Auto 0.3 0 - 2 % [facility] NRBC Pct Auto 0.0 0.0 - 0.2 /100WBC [facility] Neutrophils Absolute Auto 4.4 2.0 - 8.3 x10*3/uL [facility] Imm Gran Abs Auto 0.01 0.00 - 0.03 X10*3/uL [facility] Lymphocytes Absolute Auto 1.4 1.2 - 4.9 X10*3/uL [facility] Monocytes Absolute Auto 0.6 0.1 - 1.2 X10*3/uL [facility] Eosinophils Absolute Auto 0.0 0.0 - 0.4 X10*3/uL [facility] Basophils Absolute Auto 0.0 0.0 - 0.2 X10*3/uL [facility] NRBC Abs Auto 0.000 0.0 - 0.012 X10*3/uL [facility] 08/02/2022 12:1 7 AM EST 08/02/2022 12:19 AM EST [facility] External Provider LAB BLO OD ORDERABLES Final Result Performing Organization Address City/[facility]/ZIP Co de Phone Number [facility] [address] [place] [address] [phone] * Culture, Urine, Routine (08/02/2022 12:00 AM EST) 08/02/2022 08/02/2022 7:3 1 AM EST Comment:UA Narrative [facility] - 08/03/2022 9:19 AM EST Urine Culture No growth. Specimen Source: Urine clean catch [facility] Exter nal Provider LAB MICROBIOLOGY - GENERAL ORDERABLES Final Result Performing Organization Address [facility] [employer] de Phone Number [facility] [address] [place] [phone] [phone] documented in this encounter Visit Diagnoses Not on filedocumented in this encounter Care Teams Assembler Show Motor Relationship Specialty Start Date End Date Amber Quiroz MD [address] [place] [address] PCP - General Family Medicine 07/03/18 Fred Parker, RN 505 [place] [address] Registered Nurse Family Medicine 04/16/25 Sherry Herbert 04/16/25 documented as of this encounter
--- OUTSIDE RECORDS SUMMARY | 2025-04-29 14:21 | XMS_ITS | Encounter Summary ---
Author Organization [employer] Address 75 [facility] 7t [place] [address] Care Team Providers Care Plastic Welder Name Role Phone Amber Quiroz MD Primary Care Provider [phone] Fred Parker RN Unavailable [phone] Sherry Herbert Unavailable Reason for Visit * Reason Onset Date Comments Med Refill 06/21/2024 Encounter Details Date Type Department Care Team (Late st Contact Info) Description 06/21/2024 Telephone [facility] MEDICINE [address] [place] [address] Amber Quiroz MD [address] [place], [place] [phone] Med Refill Social History Tobacco Use Types [...] extra strength with no relief. Please advise. RN PARALEGAL checked 06/21/24. Last refill of Oxycodone 5mg 11/30/23 qty 12. * Telephone Encounter - Gemma Oliveira - 06/21/2024 10:12 AM EST TC from pt requesting medication refill. Medications needing refill : oxyCODONE (Oxy-IR) 5 MG immediate release capsule To be sent to: [facility] [place] - [address] documented in this encounter Plan of Treatment Upcoming Encounters Date Type Department Care Team (Late st Contact Info) Description 04/30/2025 9:30 AM EDT Clinical Support [facility] MED & PEDS [address] [facility] [place] [address] Rachelle Lucero RN 505 [facility] [place] [address] 05/26/2025 10:00 AM EST Office Visit [facility] MEDICINE 230 [place] [address] Amber Quiroz MD [address] [place] [address] documented as of this encounter Visit Diagnoses Not on filedocumented in this encounter Care Teams Plastic Welder Relationship Specialty Start Date End Date Amber Quiroz MD [address] [place] [address] PCP - General Family Medicine 07/03/18 Fred Parker, DOROTA 505 [facility] [place] [address] Registered Nurse Family Medicine 04/16/25 Sherry Herbert 04/16/25 documented as of this encounter
--- OUTSIDE RECORDS SUMMARY | 2025-04-29 14:21 | XMS_ITS | Encounter Summary ---
Author Organization [employer] Address [address] [place] [address] 7 [place] [address] Care Team Providers Care Energy Systems Engineer Name Role Phone Amber Quiroz MD Primary Care Provider [phone] Fred Parker RN Unavailable [phone] Sherry Herbert Unavailable Encounter Details Date Type Department Care Team (Late st Contact Info) Description 04/05/2023 Orders Only [facility] MED & PEDS 505 [place] [address] Anabell Martinez LPN Social History Tobacco Use [...] Description 04/30/2025 9:30 AM EDT Clinical Support [facility] MED & PEDS [address] [place] [address] Rachelle Lucero RN 505 [place] [address] 05/26/2025 10:00 AM EST Office Visit [facility] MEDICINE 230 [place] [address] Amber Quiroz MD [address] [place] [address] documented as of this encounter Visit Diagnoses Not on filedocumented in this encounter Care Teams Energy Systems Engineer Relationship Specialty Start Date End Date Amber Quiroz MD [address] [place] [address] [phone] PCP - General Family Medicine 07/03/18 Fred Parker, DOROTA [address] [place] [address] Registered Nurse Family Medicine 04/16/25 Sherry Herbert 04/16/25 documented as of this encounter
--- OUTSIDE RECORDS SUMMARY | 2025-04-29 14:21 | XMS_ITS | Encounter Summary ---
Author Organization [employer] Address 75 [facility] 7 [place] [address] Care Team Providers Care Superintendent Production Name Role Phone Amber Quiroz MD Primary Care Provider [phone] Fred Parker RN Unavailable [phone] Sherry Herbert Unavailable Reason for Visit * Reason Comments Med Refill Encounter Details Date Type Department Care Team (Late st Contact Info) Description 12/20/2024 Refill [facility] MEDICINE 230 [place], [place] [phone] Amber Quiroz MD 230 [place], [place] [phone] Nephrolithiasis Social History Tobacco Use Types Packs/Day [...] Description 04/30/2025 9:30 AM EDT Clinical Support [facility] MED & PEDS 505 [place] [address] Rachelle Lucero RN 505 [place] [address] 05/26/2025 10:00 AM EST Office Visit [facility] MEDICINE 230 [place] [address] Amber Quiroz MD [address] [place] [address] documented as of this encounter Visit Diagnoses Diagnosis Nephrolithiasis Calculus of kidney documented in this encounter Additional Health Concerns Assessment Noted Time PHQ-9 Depression Total Score: 9 12/03/19 25 4:14 PM EDT documented as of this encounter Care Teams Superintendent Production Relationship Specialty Start Date End Date Amber Quiroz MD [address] [place] [address] PCP - General Family Medicine 07/03/18 Fred Parker, DOROTA [address] [facility] [address] Registered Nurse Family Medicine 04/16/25 Sherry Herbert 04/16/25 documented as of this encounter
--- OUTSIDE RECORDS SUMMARY | 2025-04-29 14:21 | XMS_ITS | Encounter Summary ---
Author Organization [employer] Address 75 [facility] 7t [place] [address] Care Team Providers Care Wheel Polisher Name Role Phone Amber Quiroz MD Primary Care Provider [phone] Fred Parker RN Unavailable [phone] Sherry Herbert Unavailable Encounter Details Date Type Department Care Team (Late st Contact Info) Description 03/07/2025 Orders Only [facility] MEDICINE 230 [place], [place] [phone] Amber Quiroz MD 230 [place], [place] [phone] Flank pain (Primary Dx); History of total [...] 04/30/2025 9:30 AM EDT Clinical Support [facility] CH[facility] MED & PEDS 505 [place] [address] Rachelle Lucero, DOROTA 505 [place] [address] 05/26/2025 10:00 AM EST Office Visit [facility] MEDICINE 230 [place] [address] Amber Quiroz MD [address] [place] [address] documented as of this encounter Procedures Procedure Name Priority Date/Time Associated Diagnosis Comments CT ABDOMEN PELVIS WO CONTRAST Routine 03/08/2025 1:06 PM EDT documented in this encounter Results * CT Abdomen Pelvis w/o Contrast (03/08/2025 1:06 PM EDT) Anatomical Region Laterality Modality Body, Pelvis, Abdomen Computed T omography 03/08/2025 1:06 PM EDT Narrative 03/08/2025 1:08 PM EDT [place] [address] CT Scan Report Signed Patient: John Marquez MR#: [id number] [id number] : 1965 Acct:[id number] Age/Sex: 59 / F ADM Date: 03/08/25 Loc: HO.ED Attending Dr: Ordering Physician: Kaia Hamilton Date of Service: 03/08/25 Procedure(s): CT abdomen pelvis wo IV con Accession Number(s): [id number] cc: Kaia Hamilton; Amber Quiroz MD Report Number: [id number]: Total DLP = 449.00 mGy-cm Reason for Exam: abbd pain, flank pain CLINICAL HISTORY: abbd pain, flank pain CT abdomen and pelvis without contrast Comparison: CT/SD/SR - CT ABDOMEN PELVIS WO IV CON [...] 03/08/25 1307 DD/ 1306 TD/TT: 03/08/25 1306 Maintenance Welder: Procedure Note Donotuseinterpreter, Image - 03/08/[address] [address] [address] Scan Report Signed Patient: Heidi Marquez#: [id number] : 1965Acct:[id number] Age/Sex: 59 / FADM Date: 03/08/25 Loc: HO.ED Attending Dr: Ordering Physician: Kaia Hamilton Date of Service: 03/08/25 Procedure(s): CT abdomen pelvis wo IV con Accession Number(s): [id number] cc: Kaia Hamilton; Amber Quiroz MD Report Number: [id number]: Total DLP = 449.00 mGy-cm Reason for Exam: abbd pain, flank pain CLINICAL HISTORY: abbd pain, flank pain CT abdomen and pelvis without contrast Comparison: CT/SD/SR - CT ABDOMEN PELVIS WO IV CON [...] 03/08/25 1307 DD/ 1306 TD/TT: 03/08/25 1306 Maintenance Welder: [facility] External Provider IMG CT PROCEDURES Final [...] documented as of this encounter Care Teams Wheel Polisher Relationship Specialty Start Date End Date Amber Quiroz MD 230 [place] [address] PCP - General Family Medicine 07/03/18 Fred Parker, DOROTA [address] [place] [address] Registered Nurse Family Medicine 04/16/25 Sherry Herbert 04/16/25 documented as of this encounter
--- OUTSIDE RECORDS SUMMARY | 2025-04-29 14:21 | XMS_ITS | Encounter Summary ---
Author Organization [employer] Address 75 [facility] 7 [place] [address] Care Team Providers Care Warp Picker Name Role Phone Amber Quiroz MD Primary Care Provider [phone] Fred Parker RN Unavailable [phone] Sherry Herbert Unavailable Reason for Visit * Reason Comments Med Refill Encounter Details Date Type Department Care Team (Late st Contact Info) Description 04/26/2023 Refill [facility] MEDICINE [address] [place], [place] [phone] Alan Partida MD 230 [place], [place] [phone] Moderate persistent asthma without complication; Nausea Social [...] Description 04/30/2025 9:30 AM EDT Clinical Support [facility] MED & PEDS 505 [place], [place] [phone] Rachelle Lucero, DOROTA 505 [place], [place] [phone] 05/26/2025 10:00 AM EST Office Visit [facility] MEDICINE [address] [place] [address] Amber Quiroz MD [address] [place] [address] [phone] documented as of this encounter Visit Diagnoses Diagnosis Moderate persistent asthma without complication Nausea Nausea alone documented in this encounter Care Teams Warp Picker Relationship Specialty Start Date End Date Amber Quiroz MD [address] [place] [address] [phone] PCP - General Family Medicine 07/03/18 Fred Parker, DOROTA [address] [place] [address] Registered Nurse Family Medicine 04/16/25 Sherry Herbert 04/16/25 documented as of this encounter
--- OUTSIDE RECORDS SUMMARY | 2025-04-29 14:21 | XMS_ITS | Encounter Summary ---
Author Organization [employer] Address [address] [place] [address] 7 [place] [address] Care Team Providers Care Human Resource Manager Name Role Phone Amber Quiroz MD Primary Care Provider [phone] Fred Parker RN Unavailable [phone] Sherry Herbert Unavailable Encounter Details Date Type Department Care Team (Late st Contact Info) Description 12/12/2022 Orders Only [facility] MEDICINE [address] [place] [address] [phone] Anabell Martinez LPN Social History Tobacco Use [...] Description 04/30/2025 9:30 AM EDT Clinical Support [facility] MED & PEDS [address] [place] [address] Rachelle Lucero, DOROTA [address] [place] [address] 05/26/2025 10:00 AM EST Office Visit [facility] [address] [place] [address] [phone] Amber Quiroz MD [address] [place] [address] documented as of this encounter Visit Diagnoses Not on filedocumented in this encounter Care Teams Human Resource Manager Relationship Specialty Start Date End Date Amber Quiroz MD [address] [place] [address] PCP - General Family Medicine 07/03/18 Fred Parker RN [address] [place] [phone] Registered Nurse Family Medicine 04/16/25 Sherry Herbert 04/16/25 documented as of this encounter
--- OUTSIDE RECORDS SUMMARY | 2025-04-29 14:21 | XMS_ITS | Clinical Summary ---
Author Organization [employer] Address [address] [facility] 7t [place] [address] Care Team Providers Care Hand Polisher Name Role Phone Amber Quiroz MD Primary Care Provider Fred Parker RN Unavailable Sherry Herbert Unavailable Allergies Active Allergy Reactions [...] mouth. 10/14/19 25 Active Blood Pressure Monitor [facility] Check BP daily 1 each 11/13/19 25 [...] 8 PUFFS IN 24 HOURS. 18 g 04/25/20 25 Active traMADol (Ultram) 50 MG tabletIndications :Flank pain,History of total knee replacement, unspecified laterality,Primar y osteoarthritis of left knee,Loin pain hematuria syndrome,Chronic back pain, unspecified back location, unspecified back pain laterality TAKE 1 TABLET BY MOUTH EVERY 8 HOURS NEEDED FOR SEVERE PAIN 10 tablet 04/25/20 25 Active albuterol (Ventolin HFA) 108 (90 [...] pain. 10 tablet 03/07/20 25 2024 Discontinued albuterol (Ventolin HFA) 108 (90 Base) MCG/ACT inhalerIndication s:Moderate persistent asthma without complication INHALE 2 PUFFS BY MOUTH EVERY 4 TO 6 HOURS NEEDED FOR DIFFICULTY BREATHING. DO NOT EXCEED 2 PUFFS FOUR TIMES DAILY OR 8 PUFFS IN 24 HOURS. 18 g 04/07/20 25 2024 Discontinued traMADol (Ultram) 50 MG tabletIndications :Flank pain,History of total knee replacement, unspecified laterality,Primar y osteoarthritis of left knee,Loin pain hematuria syndrome,Chronic back pain, unspecified back location, unspecified back pain laterality TAKE 1 TABLET BY MOUTH EVERY 8 HOURS NEEDED FOR SEVERE PAIN 10 tablet 04/07/20 25 2024 Discontinued Active Problems Patient Care [...] dependence. Patient states she is going to [place] tomorrow for about 1 week. Therefore, we agreed that she will be able to olive picker tramadol today, and after she returns from [place] we will discuss about buprenorphine. 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 Most recent CT scan was in October 2024, showing small bilateral renal calculi. - Seen by urologist, [facility] 10/08/24 - Pt states she has a follow up appointment tomorrow (? Pt might be going to [place] tomorrow as well). - Discussed about my [...] 04/22/2013 05/04/2023 Asthma with COPD ([facility]/HCC) 10/22/2012 Lung mass 10/22/2012 05/04/2023 Anemia 06/05/2012 [...] Encounters Date Type Department Care Team Description 04/29/2025 Orders Only GENERIC EXTERNAL DATA DEPARTMENT Provider, Generic External Data 04/29/2025 Telephone [facility] [address] [place] [phone] Amber Quiroz MD Triage 04/29/2025 Travel 04/24/2025 Travel 04/24/[address] [address] Amber Quiroz MD Med Refill 04/24/2025 Refill [facility] MED & PEDS [address] [place] [address] Amber Quiroz MD Moderate persistent asthma without complication; Flank pain; History of total knee replacement, unspecified laterality; Primary osteoarthritis of left knee; Loin pain hematuria syndrome; Chronic back pain, unspecified back location, unspecified back pain laterality 04/19/2025 Orders Only GENERIC EXTERNAL DATA DEPARTMENT Provider, Generic External Data 04/18/2025 Patient Outreach [address] [address] Amber Quiroz MD Care Coordination ([facility] telephone call outreach) 04/17/2025 Orders Only GENERIC EXTERNAL DATA DEPARTMENT Provider, Generic External Data 04/16/2025 Patient Outreach [address] [address] Amber Quiroz MD Care Coordination ([facility] telephone call outreach ) 04/16/2025 Patient Outreach [facility] MED & PEDS [address] [place] [address] Amber Quiroz MD Care Coordination ([facility]- chart review) 04/16/2025 Patient Outreach [address] [address] Amber Quiroz MD 04/11/2025 Telephone [facility] MED & PEDS [address] [place] [address] Rachelle Lucero RN 04/04/2025 Refill [facility] MED & PEDS [address] [place] [address] Amber Quiroz MD Moderate persistent asthma without complication; Flank pain; History of total knee replacement, unspecified laterality; Primary osteoarthritis of left knee; Loin pain hematuria syndrome; Chronic back pain, unspecified back location, unspecified back pain laterality 03/16/[address] [address] Amber Quiroz MD 03/11/2025 Patient Outreach [address] [address] Amber Quiroz MD Care Coordination ([facility] f/u) 03/11/[address] [address] Amber Quiroz MD Care Management ([facility]- f/u call lv) 03/08/2025 Orders Only GENERIC EXTERNAL DATA DEPARTMENT Provider, Generic External Data 03/07/2025 Orders Only [address] [address] Amber Quiroz MD Flank pain (Primary Dx); History of total knee replacement, unspecified laterality; Primary osteoarthritis of left knee; Loin pain hematuria syndrome; Chronic back pain, unspecified back location, unspecified back pain laterality 03/07/2025 Travel 03/07/2025 Telephone [facility] MED & PEDS [address] [place] [address] Rachelle Lucero RN MEDICAL OFFICE SECRETARY 03/06/2025 Refill [facility] MED & PEDS [address] [place], [place] [phone] Amber Quiroz MD Flank pain 02/24/[address] [address] Amber Quiroz MD Care Management ([facility]- f/u call lv) 02/12/[address] [address] Amber Quiroz MD No Show (Pt no show sick onsite/) 02/11/[address] [address] Cheryl Larkin, REGIONAL BUSINESS DEVELOPMENT MANAGER Follow-up 02/10/2025 Refill [facility] MED & PEDS [address] [place] [address] Rachelle Lucero, DOROTA Flank pain (Primary Dx) 02/10/2025 Telephone [facility] MED & PEDS [address] [place] [address] Amber Quiroz MD Med Refill 02/03/2025 Refill [facility] [address] [place] [address] Amber Quiroz MD Allergic rhinitis, unspecified seasonality, unspecified trigger 02/02/2025 Orders Only GENERIC EXTERNAL DATA DEPARTMENT Provider, Generic External Data from Last 3 Months Immunizations Immunization Administration [...] Sign Reading Time Taken Comments Blood Pressure 114/71 04/24/2025 2:09 PM EDT Pulse 107 04/24/2025 2:09 PM EDT Temperature 37.4 C (99.3 F) 04/24/2025 2:09 PM EDT Respiratory Rate 12 04/24/2025 2:09 PM EDT Oxygen Saturation 98% 04/24/2025 2:09 PM EDT Inhaled Oxygen Concentration - - Weight 67 kg (147 lb 12.8 oz) 04/24/2025 2:09 PM EDT Height 154.9 cm (5' 1 ) 04/24/2025 2:09 PM EDT Body Mass Index 27.93 04/24/2025 2:09 PM EDT Plan of Treatment Upcoming Encounters Date Type Department Care Team ([facility] st Contact Info) Description 04/30/2025 9:30 AM EDT Clinical Support [facility] [address] [place] [address] Rachelle Lucero, RN [address] [place], [place] 05/26/2025 10:00 AM EST Office Visit [facility] [address] [place] [address] Amber Quiroz MD [address] [place] [address] Health Maintenance Due Date Last Done Comments [...] 11/12/2024 SDOH Screening 11/12/2025 11/12/2024 Tobacco Screening 04/24/2026 04/24/2025 Cervical Cancer Screening 07/30/2026 HPV/Cotest 07/30/2026 07/30/2021, [...] AUTO DIFFERENTIAL Routine 04/29/2025 11:[address] ABDOMEN PELVIS W CONTRAST Routine 04/19/2025 8:04 AM EDT LIPASE Routine 04/19/2025 3:19 AM [...] to Health Maintenance Results * (ABNORMAL) Comprehensive Metabolic Panel (04/29/2025 12:14 PM EDT) Only the most recent of4 resultswithin the time period is included. Sodium 144 135 - 145 mmol/L [facility] Potassium 3.3 3.3 - 5.1 mmol/L [facility] Chloride 111(H) 96 - 108 mmol/L [facility] Carbon Dioxide 26 22 - 29 mmol/L [facility] Anion Gap 10(L) 12 - 20 [facility] Urea Nitrogen (BUN) 14 9 - 16 mg/dL [facility] Creatinine, Serum 0.61 0.5 - 1.4 mg/dL [facility] Creatinine Clr Calc Pharmacy 84.5 [facility] Comment:Provided height and weight: 154.94 cm,64.8 kg.eGFR (calculated from the MDRD study equation) and eCrCl(calculated from the Cockcroft-Gault equation) are based ondifferent parameters and may not yield comparable results.If eCrCl result is absurd, please check patient'sheight/weight. Estimated Glomerular Filt Rate >60 [facility] Comment:Chronic Kidney Disea se: Estimated GFR < 60 mL/min/1.89k8Muncfh Kidney Disease: Estimated GFR < 15 mL/min/1.73m2 Glucose 92 60 - 115 mg/dL [facility] Calcium 8.9 8.4 - 10.2 mg/dL [facility] Bilirubin, Total 0.5 0.0 - 1.0 mg/dL [facility] Aspartate Amino Transferase 22 5 - 31 U/L [facility] Alanine Aminotransferase 13 0 - 31 U/L [facility] Total Protein 7.1 6.5 - 8.0 g/dL [facility] Albumin Level 4.4 3.5 - 5.0 g/dL [facility] Alkaline Phosphatase 110 39 - 117 U/L [facility] 04/29/2025 12:1 4 PM EDT 04/29/2025 12:17 PM EDT us Generic External Data Provider LAB BLOOD ORDERAB LES Final Result [facility] [address] [place] [address] [phone] * (ABNORMAL) Urinalysis, Complete, with Reflex to Culture (04/29/2025 11:15 AM EDT) Only the most recent of3 resultswithin the time period is included. Color Urine BROWN [facility] Appearance Urine Clear [facility] PH 6.0 5.0 - 9.0 [facility] Glucose Urine UA Negative Negative mg/dL [facility] Urine Blood Large (3+)(A) Negative [facility] Specific [place] - Urine <=1.005 1.005 - 1.025 [facility] Urine Protein 30 (1+)(A) Neg-Trace mg/dL [facility] Urine Ketones Negative Negative mg/dL [facility] Nitrite Urine Positive(A) Negative [facility] Leukocyte Esterase Urine Negative Negative [facility] RBC Urine 6-10(A) 0 - 2 /HPF [facility] Urine WBC 0-5 0 - 5 /HPF [facility] Urine Squamous Epithelial Cell 0-2 0 - 2 /HPF [facility] Urine Bacteria 1+ None Seen [facility] Hyaline Casts, Urine 0-2 0 - 2 /LPF [facility] 04/29/2025 11:1 5 AM EDT 04/29/2025 11:18 AM EDT Narrative [facility] - 04/29/2025 12:22 PM EDT Urine, Clean Catch us Generic External Data Provider LAB URINE ORDERAB LES Final Result [facility] [address] [place] [phone] * (ABNORMAL) CBC auto differential (04/29/2025 11:05 AM EDT) Only the most recent of4 resultswithin the time period is included. White Blood Count 6.2 4.8 - 10.8 X10*3/uL [facility] Red Blood Count 4.50 4.20 - 5.50 X10*6/uL [facility] Hemoglobin 12.0 12.0 - 16.0 g/dl [facility] Hematocrit 37.2 37.0 - 47.0 % [facility] Mean Corpuscular Volume 82.7 80.0 - 98.0 fL [facility] Mean Corpuscular Hemoglobin 26.7(L) 27.0 - 33.0 pg [facility] Mean Corpuscular HGB Conc 32.3 31.0 - 35.0 g/dl [facility] Red Cell Distribution Width 15.6 11.0 - 16.0 % [facility] Platelet Count 321 160 - 400 X10*3/uL [facility] Mean Platelet Volume 9.3(L) 9.4 - 12.3 fL [facility] Neutrophils Percent Auto 68.1 45 - 73 % [facility] Imm Gran Pct Auto 0.2 0.0 - 0.4 % [facility] Lymphocytes Percent Auto 26.0 20 - 40 % [facility] Monocytes Percent Auto 4.8 2 - 11 % [facility] Eosinophils Percent Auto 0.6 0 - 4 % [facility] Basophils Percent Auto 0.3 0 - 2 % [facility] NRBC Pct Auto 0.0 0.0 - 0.2 /100WBC [facility] Neutrophils Absolute Auto 4.3 2.0 - 8.3 x10*3/uL [facility] Imm Gran Abs Auto 0.01 0.00 - 0.03 X10*3/uL [facility] Lymphocytes Absolute Auto 1.6 1.2 - 4.9 X10*3/uL [facility] Monocytes Absolute Auto 0.3 0.1 - 1.2 X10*3/uL [facility] Eosinophils Absolute Auto 0.0 0.0 - 0.4 X10*3/uL [facility] Basophils Absolute Auto 0.0 0.0 - 0.2 X10*3/uL [facility] NRBC Abs Auto 0.000 0.0 - 0.012 X10*3/uL [facility] 04/29/2025 11:0 5 AM EDT 04/29/2025 11:11 AM EDT us Generic External Data Provider LAB BLOOD ORDERAB LES Final Result [facility] [address] [place] [phone] * CT Abdomen Pelvis w/ Contrast (04/19/2025 8:04 AM EDT) Anatomical Region Laterality Modality Body, Pelvis, Abdomen Computed T omography 04/19/2025 8:04 AM EDT Narrative 04/19/2025 8:05 AM EDT [address] [address] [address] Scan Report Signed Patient: John Marquez MR#: [id number] 760 : 1965 Acct:[id number] Age/Sex: 59 / F ADM Date: 04/19/25 Loc: HO.ED Attending Dr: Ordering Physician: Eliezer Steen PA-C Date of Service: 04/19/25 Procedure(s): CT abdomen pelvis w IV con Accession Number(s): [id number] cc: Eliezer Steen PA-C; Name,Mike GARCIA Report Number: [id number]: Total DLP = 0.00 mGy-cm Reason for Exam: Flank Pain; Hx Kidney Stone CLINICAL HISTORY: Flank Pain; Hx Kidney Stone CT abdomen and pelvis with contrast Comparison: 03/08/2025 Findings: The lung bases are clear. Contracted gallbladder. Small number of tiny bilateral nonobstructive renal stones. Mild prominence of the renal collecting systems bilaterally without obstructive urinary tract stone likely due to the distended urinary bladder distention. No perinephric fat stranding. 13 mm right renal lipoma versus angiomyolipoma along with too small to characterize right renal hypodensity redemonstrated. Mild left renal scarring. Ilyu-zk-xptqbznh colonic stool. No bowel obstruction. Atherosclerotic calcifications. Small uncomplicated fat containing umbilical hernia. No appendicitis. No significant change in mild fat stranding (likely due to scarring) anterior to the urinary bladder. Rest of the abdominopelvic viscera are unremarkable. No acute fracture. Spinal degenerative changes. L3 vertebral body hemangioma. IMPRESSION: Small number of tiny bilateral nonobstructive renal stones. Mild prominence of the renal collecting systems bilaterally without obstructive urinary tract stone likely due to the distended urinary bladder distention. No perinephric fat stranding. This document has been electronically signed by: Anupama Yung MD on 04/19/2025 08:04:22 Dictated By: Anupama Yung MD Signed By: <Electronically signed by Anupama Yung MD in OV> 04/19/25 08 DD/ 3 TD/TT: 04/19/25803 Hospice Team Lead: Procedure Note Donotuseinterpreter, Image - 04/19/[address] [place] [address] [address] Scan Report Signed Patient: Heidi Marquez#: [id number] 760 : 1965Acct:[id number] Age/Sex: 59 / FADM Date: 04/19/25 Loc: HO.ED Attending Dr: Ordering Physician: Eliezer Steen PA-C Date of Service: 04/19/25 Procedure(s): CT abdomen pelvis w IV con Accession Number(s): [id number] cc: Eliezer Steen PA-C; Name,Mike GARCIA Report Number: [id number]: Total DLP = 0.00 mGy-cm Reason for Exam: Flank Pain; Hx Kidney Stone CLINICAL HISTORY: Flank Pain; Hx Kidney Stone CT abdomen and pelvis with contrast Comparison: 03/08/2025 Findings: The lung bases are clear. Contracted gallbladder. Small number of tiny bilateral nonobstructive renal stones. Mild prominence of the renal collecting systems bilaterally without obstructive urinary tract stone likely due to the distended urinary bladder distention. No perinephric fat stranding. 13 mm right renal lipoma versus angiomyolipoma along with too small to characterize right renal hypodensity redemonstrated. Mild left renal scarring. Wkho-lf-fdrkbksa colonic stool. No bowel obstruction. Atherosclerotic calcifications. Small uncomplicated fat containing umbilical hernia. No appendicitis. No significant change in mild fat stranding (likely due to scarring) anterior to the urinary bladder. Rest of the abdominopelvic viscera are unremarkable. No acute fracture. Spinal degenerative changes. L3 vertebral body hemangioma. IMPRESSION: Small number of tiny bilateral nonobstructive renal stones. Mild prominence of the renal collecting systems bilaterally without obstructive urinary tract stone likely due to the distended urinary bladder distention. No perinephric fat stranding. This document has been electronically signed by: Anupama Yung MD on 04/19/2025 08:04:22 Dictated By: Anupama Yung MD Signed By: <Electronically signed by Anupama Yung MD in OV> 04/19/25804 DD/ 3 TD/TT: 04/19/25803 Hospice Team Lead: [facility] External Provider IMG CT PROCEDURES Final Result * Lipase (04/19/2025 3:19 AM EDT) Lipase 35 8 - 78 U/L [facility] 04/19/2025 3:19 AM EDT 04/19/2025 3:22 AM EDT Generic External Data Provider LAB BLOOD ORDERAB LES Final Result Performing Organization Address City/[facility]/ZIP Co de Phone Number [facility] [address] [place] [address] [phone] * Culture, Urine, Routine (04/17/2025 8:56 AM EDT) Urine Urine specimen obtained by clean catch procedure / Unknown 04/17/2025 8:56 AM EDT 04/17/2025 8:56 AM EDT Comment:UACC Narrative [facility] - 04/18/2025 10:33 AM EDT Urine Culture No growth. Specimen Source: Urine clean catch Generic External Data Provider LAB MICROBIOLOGY - GENERAL ORDERABLES Final Result Performing Organization Address City/[facility] Co de Phone Number [facility] [address] [place] [phone] * CT Abdomen Pelvis w/o Contrast (03/08/2025 1:06 PM EDT) Anatomical Region Laterality Modality Body, Pelvis, Abdomen Computed T omography 03/08/2025 1:06 PM EDT Narrative 03/08/2025 1:08 PM EDT [place] [address] CT Scan Report Signed Patient: John Marquez MR#: [id number] 760 : 1965 Acct:[id number] Age/Sex: 59 / F ADM Date: 03/08/25 Loc: HO.ED Attending Dr: Ordering Physician: Kaia Hamilton Date of Service: 03/08/25 Procedure(s): CT abdomen pelvis wo IV con Accession Number(s): [id number] cc: Kaia Hamilton; Abmer Quiroz MD Report Number: [id number]: Total DLP = 449.00 mGy-cm Reason for Exam: abbd pain, flank pain CLINICAL HISTORY: abbd pain, flank pain CT abdomen and pelvis without contrast Comparison: CT/MS/SR - CT ABDOMEN PELVIS WO IV CON [...] 03/08/25 1307 DD/ 1306 TD/TT: 03/08/25 1306 Hospice Team Lead: Procedure Note Donotuseinterpreter, Image - 03/08/[address] [place] [address] [address] Scan Report Signed Patient: Heidi Marquez#: [id number] 760 : 1965Acct:[id number] Age/Sex: 59 / FADM Date: 03/08/25 Loc: HO.ED Attending Dr: Ordering Physician: Kaia Hamilton Date of Service: 03/08/25 Procedure(s): CT abdomen pelvis wo IV con Accession Number(s): [id number] cc: Kaia Hamilton; Amber Quiroz MD Report Number: [id number]: Total DLP = 449.00 mGy-cm Reason for Exam: abbd pain, flank pain CLINICAL HISTORY: abbd pain, flank pain CT abdomen and pelvis without contrast Comparison: CT/MS/SR - CT ABDOMEN PELVIS WO IV CON [...] 03/08/25 1307 DD/ 1306 TD/TT: 03/08/25 1306 Hospice Team Lead: [facility] External Provider IMG CT PROCEDURES Final Result * (ABNORMAL) Lipid Panel with Reflex to Direct LDL (09/03/2024 4:26 PM EST) Triglycerides 112 <150 mg/dL [facility] Comment:Desirable Triglyceri de: less than 150 mg/dLBorderline High Triglyceride 150-199 mg/dLHigh Triglyceride: 200-499 mg/dLVery High Triglyceride: greater than or equal to 5OO mg/dL Cholesterol 183 <200 mg/dL [facility] Comment:Desirable Cholestero l: less than 200 mg/dLBorderline High Cholesterol: 200-239 mg/dLHigh Cholesterol: greater than 239 mg/dL LDL Cholesterol Calculated 112(H) <100 mg/dL [facility] Comment:Desirable LDL: less than 100 mg/dLNear Optimal/Above Optimal LDL: 110- 129 mg/dLBorderline High LDL: 130-159 mg/dLHigh LDL: 160-189 mg/dLVery High LDL: greater than or equal to 190 mg/dL HDL Cholesterol 49 >40 mg/dL [facility] Comment:Desirable HDL: great er than 40 mg/dL Note: This HDL assay may give artificially low results in patients with liver disease. Blood 09/03/2024 4:26 PM EST 09/03/2024 6:14 PM EST us Amber Quiroz MD LAB BLOOD ORDERABLES Final Resul t [facility] [address] [place] [phone] * (ABNORMAL) THINPREP TIS PAP AND [...] evaluated with computer assisted technology. [facility] Boat Garnisher: SEE COMMENT [facility] Comment: [facility], CT(ASCP) CT screening location: [place] [address] General Categorization: EPITHELIAL CELL ABNORMALITY(A ) [facility] HPV nRNA E6/E7 Not Detected Not Detected [facility] Comment: Methodology: Cost Accountant-Mediated Amplification This assay detects E6/E7 viral messenger RNA (mRNA) from 14 high-risk HPV types (16,18,31,33,35,39,45,51,52,56,58,59,66,68). The analytical performance characteristics of this assay have been determined by [employer]. The modifications have not been cleared or approved by the FDA. This assay has been validated pursuant to the CLIA regulations and is used for clinical purposes. For additional information, please refer to http://education.My Visual Brief/faq/EYZ409t9 (This link if provided for information/ educational purposes only.) Infection Shift in vaginal geovanny suggestive of bacterial vaginosis. [facility] Interpretation/Res ult: SEE COMMENT(A) [facility] Comment: Atypical Squamous Cells of Undetermined Significance (ASC-US) Rare cells are approaching low grade dysplasia. LMP: NONE [facility] PATHOLOGIST: SEE COMMENT [facility] Comment: Jennifer Branch M.D., Board Certified in Anatomic and Clinical Pathology (electronic signature) Consulting Pathologist [facility] [phone] Prev. BX: NONE [facility] Prev. PAP: NONE [facility]IV[facility] SOURCE: None given [facility] Statement Of Adequacy: SEE COMMENT [facility] Comment: Satisfactory for evaluation. Endocervical/transformation zone component present. 07/30/2021 10:1 7 AM EST us Saleem Maier MD LAB PATHOLOGY ORDERABLES Final R esult [facility] [address] from Last 3 Months or Most Recently Relevant to Health Maintenance Insurance [facility] C3 DENTAL-[facility] MEDICAID STAND ADULT Care Teams Hand Polisher Relationship Specialty Start Date End Date Amber Quiroz MD [address] [place] [address] PCP - General Family Medicine 07/03/18 Fred Parker, RN [address] [place] [address] Registered Nurse Family Medicine 04/16/25 Sherry Herbert 04/16/25
--- OUTSIDE RECORDS SUMMARY | 2025-04-29 14:21 | XMS_ITS | Encounter Summary ---
Author Organization [employer] Address 75 [facility] 7 [place] [address] Care Team Providers Care Circulation Assistant Name Role Phone Amber Quiroz MD Primary Care Provider Fred Parker RN Unavailable [phone] Sherry Herbert Unavailable Encounter Details Date Type Department Care Team (Late st Contact Info) Description 03/22/2023 Orders Only [facility] MEDICINE [address] [place], [place] [phone] Amber Quiroz MD 230 [place], [place] [phone] ASCUS of cervix with negative high risk [...] 9:30 AM EDT Clinical Support [facility] CHC MED & PEDS 505 [place], [place] [phone] Rachelle Lucero, RN 505 [place], [place] [phone] 05/26/2025 10:00 AM EST Office Visit [facility] MEDICINE [address] [place] [address] Amber Quiroz MD [address] [place] [address] [phone] documented as of this encounter Visit Diagnoses Diagnosis ASCUS of cervix with negative high risk HPV- Primary History of cervical dysplasia Personal history of cervical dysplasia documented in this encounter Care Teams Circulation Assistant Relationship Specialty Start Date End Date Amber Quiroz MD [address] [place] [address] PCP - General Family Medicine 07/03/18 Fred Parker, RN [address] [place] [address] Registered Nurse Family Medicine 04/16/25 Sherry Herbert 04/16/25 documented as of this encounter
--- OUTSIDE RECORDS SUMMARY | 2025-04-29 14:21 | XMS_ITS | Encounter Summary ---
Author Organization [employer] Address 75 [facility] 7t [place] [address] Care Team Providers Care Nylon Mender Name Role Phone Amber Quiroz MD Primary Care Provider [phone] Fred Parker RN Unavailable [phone] Sherry Herbert Unavailable Reason for Visit * Reason Comments Med Refill Encounter Details Date Type Department Care Team (Late st Contact Info) Description 11/12/2024 Refill [facility] MEDICINE 230 [place], [place] [phone] Amber Quiroz MD 230 [place], [place] [phone] Moderate persistent asthma without complication Social History [...] Description 04/30/2025 9:30 AM EDT Clinical Support [facility] CHC MED & PEDS 505 [place] [address] Rachelle Lucero RN 505 [place] [address] 05/26/2025 10:00 AM EST Office Visit [facility] MEDICINE 230 [place] [address] Amber Quiroz MD 230 [place] [address] documented as of this encounter Visit Diagnoses Diagnosis Moderate persistent asthma without complication documented in this encounter Care Teams Nylon Mender Relationship Specialty Start Date End Date Amber Quiroz MD 230 [place] [address] PCP - General Family Medicine 07/03/18 Fred Parker, RN [address] [place] [address] Registered Nurse Family Medicine 04/16/25 Sherry Herbert 04/16/25 documented as of this encounter
== END 2025-04-29 12:38 | disposition home or self-care (01) ==
PROVIDERS: Emergency Medicine; Emergency Provider Emergency Medicine; PCP Family Medicine
DX: R10.A1 Flank pain, right side (principal); N12 Tubulo-interstitial nephritis, not specified as acute or chronic; I10 Essential (primary) hypertension; F17.200 Nicotine dependence, unspecified, uncomplicated; Z87.442 Personal history of urinary calculi; Z71.6 Tobacco abuse counseling
CPT/HCPCS: 36415; 76775; 80053; 81001; 81003; 85025; 87086; 96374; 96375; 99284; 99285; J2270; J2405

== ENCOUNTER 2025-05-01 11:55 | Observation (INO) | payer MEDICAID, SELFPAY ==
--- NOTE | ~2025-05-01 | CT_ITS ---
EXAMINATION: CT ABDOMEN ANGIOGRAPHY WITH IV CONTRAST HISTORY: R flank pain, stone hx. Pain out of proportion COMPARISON: Comparison is made with the prior examination dated 04/19/2025. TECHNIQUE: CT angiography of the abdomen was performed following administration of 80 mL Omnipaque 350 using standard departmental protocol. Coronal and sagittal reformatted images were generated and reviewed. This CT exam was performed with one or more of the following dose reduction techniques: automated exposure control, adjustment of the mA and/or kV according to patient size, use of iterative reconstruction technique. DLP: 197 mGy-cm FINDINGS: LOWER CHEST: The visualized lung bases are clear. There is no pleural effusion. CARDIOVASCULATURE: The heart is normal in size. There is no pericardial effusion. LIVER: The liver is normal in size and contour. No liver mass is identified. The hepatic and portal veins are patent. GALLBLADDER / BILE DUCTS: The gallbladder is unremarkable. There is no intra or extrahepatic biliary ductal dilatation. SPLEEN: The spleen is normal in size. No focal splenic lesion is identified. PANCREAS: The pancreas is unremarkable in appearance. ADRENAL GLANDS: Within normal limits. KIDNEYS/RETROPERITONEUM: No renal calculi are identified. There is no hydronephrosis. Again seen is a 1.2 cm fat density lesion at the upper pole of the right kidney, consistent with an angiomyolipoma. LYMPH NODES: No abdominal lymphadenopathy. VASCULATURE: The abdominal aorta is normal in caliber. The celiac axis, superior mesenteric artery, inferior mesenteric artery are patent. A single renal artery is noted on the right. There are 2 renal arteries on the left. All renal arteries are patent. The common iliac arteries are normal in caliber. MESENTERY/PERITONEUM: No free fluid. No masses. There is no free intraperitoneal gas. STOMACH: The stomach is collapsed, limiting evaluation. SMALL BOWEL: The visualized small bowel is normal in caliber. COLON: The visualized portion of the colon is unremarkable. BONES / SOFT TISSUES: No suspicious bony or soft tissue abnormalities. CT/CT angio abdomen IMPRESSION: 1. Unremarkable CT angiogram of the abdomen. 2. 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 Electronically signed by: Misha Curtis MD 05/01/2025 02:14 PM EDT
--- NOTE | 2025-05-01 12:06 | ED.ABDPAIN ---
HPI - Abdominal Pain General Chief Complaint: Urogenital-Female Stated Complaint: Rec diag kidney infection, lower back pain Time Seen by Provider: 05/01/25 12:00 History of Present Illness ED Provider: Jeovany Cunningham MD HPI narrative: [age] female with chronic abdominal pain flank pain history of stones. I personally saw this patient on the for right flank pain looked like she may have had pyelonephritis at put her on morphine and antibiotics she returns with right-sided flank pain intractable at home. Related Data Home Medications ?Medication ?Instructions ?Recorded ?Confirmed ascorbic acid (vitamin C) 250 mg 1 tab PO BID 11/26/20 05/01/25 tablet loratadine 10 mg tablet 10 mg PO DAILY 11/26/20 05/01/25 albuterol sulfate 90 mcg/actuation 2 puff inhalation Q4-6H PRN dyspnea 05/01/25 05/01/25 aerosol inhaler (Ventolin HFA) amlodipine 10 mg tablet 10 mg PO DAILY 05/01/25 05/01/25 atorvastatin 10 mg tablet 10 mg PO DAILY 05/01/25 05/01/25 clonazepam 0.5 mg tablet 0.5 mg PO BID PRN anxiety attack 05/01/25 05/01/25 fluoxetine 20 mg capsule 60 mg PO DAILY 05/01/25 05/01/25 gabapentin 300 mg capsule 300 mg PO TID 05/01/25 05/01/25 mirtazapine 45 mg tablet 45 mg PO BEDTIME 05/01/25 05/01/25 prazosin 2 mg capsule 2 mg PO BEDTIME 05/01/25 05/01/25 quetiapine 200 mg tablet 200 mg PO BEDTIME 05/01/25 05/01/25 zolpidem 10 mg tablet 10 mg PO BEDTIME PRN insomnia 05/01/25 05/01/25 Allergies Allergy/AdvReac Type Severity Reaction Status Date / Time aspirin (ASA) Allergy Intermediate RASH, Verified 05/01/25 12:13 nausea and vomiting ibuprofen (IBUPROFEN) Allergy Intermediate RASH Verified 05/01/25 12:13 nicotine Allergy Intermediate RASH FROM Verified 05/01/25 12:13 NICOTINE PATCH, nausea and vomiting ketorolac (From TORADOL) Allergy Mild RAPID HR Verified 05/01/25 12:13 AND HIVES haloperidol (From Haldol) Allergy Anaphylaxis Verified 05/01/25 12:13 metoclopramide (From Reglan) Allergy Unknown Verified 05/01/25 12:13 [facility] Past Medical History Medical History Drug-seeking behavior delivery delivered HTN (hypertension) Anemia Hypercholesteremia DVT (deep venous thrombosis) Kidney stones Surgical History Total knee replacement status Social History Social History Household Members: None Housing: Apartment Do you presently have visiting nurse or other home services: Yes ([employer]) Alcohol intake: never Patient Tobacco Use Status: Never used Tobacco Use of substances other than those prescribed or required for medical reasons: No Substance Use Type: Prescription Drugs Have you been hit, kicked, punched, or otherwise hurt by someone within the past year? If so, by whom?: No Do you feel safe in your current relationship?: No Is there a partner from a previous relationship who is making you feel unsafe now?: No Are you made to feel afraid or neglected: No Advance Directives: No Advance Directives Information Provided: Yes Do you have a plan to hurt others: No Plan Recently lost weight without trying: No Nutrition Risks: No Nutritional Risk Patient : No Physical Exam ED Exam Exam: EXAM: Gen: Alert, awake, looks uncomfortable pain Head: Atraumatic Eyes: Anicteric, Normal conjunctiva. ENT: Moist mucosa, no pallor. ? Neck: Supple. Skin: ?No observable rash or bruising on exposed or examined skin Respiratory: Breathing comfortably, No distress.Clear to auscultation bilaterally, symmetric chest expansion, No wheeze, rales, ronchi. Cardiovascular: Regular rate and rhythm. No murmurs or rub. Well perfused periphery, warm extremities. No edema. ? Abdominal: No focal tenderness. Soft, no objective distension. No palpable masses or obvious organomegaly. ?No guarding, no rebound tenderness or other peritoneal findings. : Right CVA tenderness mild Neuro: Alert. Gross movement of all extremities intact. ? Psych: Calm. Cooperative. MSK: No grossly visible deformity. Vital signs: See flowsheet Vital Signs: Vital Signs - 24 hr 05/01/25 12:10 05/01/25 14:16 Temperature 98.5 F 98.3 F Pulse Rate 86 63 Respiratory Rate 16 14 Blood Pressure 166/88 H 148/82 H Pulse Oximetry 95 95 Oxygen Delivery Method Room Air Room Air BMI result Body Mass Index 26.9 Medical Decision Making Medical Decision Making MDM Narrative: Medical Decision Making: [age] female this is her 4th or 5th visit in the last 2 weeks for current the patient has not had any urologic obstruction yes she has known kidney stones and recurrent intractable pain today's intractable requiring Dilaudid despite the home antibiotics oral morphine. No fever. No sepsis criteria. I think her pain is going to be very difficult to fall at patient would benefit from nonemergent urology consultation possibly flank pain hematuria syndrome. She may also need to see pain management Reassessment pain still uncontrolled we will patient needs repeated Dilaudid dosing. Admit for intractable pain hematuria unclear explanation could be passing small stones could be flank pain hematuria syndrome. Preliminary Favored Differential Diagnosis: Kidney stone, flank pain hematuria syndrome, pyelonephritis among additional considered etiologies Testing Interpreted Independently: ?See below for details Radiology or Lab testing Results Reviewed: ?See below for details Consults: ?See below for details Independent Historians/External Chart Reviews: ?See below for details Social Determinants of Health Impacting MDM/Planning: ?See below for details Lab Data MDM Lab Attestation statement: I reviewed the patient's lab results. 05/01/25 12:25 05/01/25 12:25 Labs: Lab Results 05/01/25 05/01/25 Range/Units 12:25 12:34 WBC 7.5 (4.8-10.8) X10*3/uL RBC 4.56 (4.20-5.50) X10*6/uL Hgb 12.2 (12.0-16.0) g/dl Hct 38.9 (37.0-47.0) % MCV 85.3 (80.0-98.0) fL MCH 26.8 L (27.0-33.0) pg MCHC 31.4 (31.0-35.0) g/dl RDW 15.1 (11.0-16.0) % Plt Count 277 (160-400) X10*3/uL MPV 9.2 L (9.4-12.3) fL Immature Gran % (Auto) 0.3 (0.0-0.4) % Neut % (Auto) 68.2 (45-73) % Lymph % (Auto) 23.4 (20-40) % Traverse % (Auto) 6.5 (2-11) % Eos % (Auto) 1.5 (0-4) % Baso % (Auto) 0.1 (0-2) % Lymph # (Auto) 1.8 (1.2-4.9) X10*3/uL Traverse # (Auto) 0.5 (0.1-1.2) X10*3/uL Eos # (Auto) 0.1 (0.0-0.4) X10*3/uL Baso # (Auto) 0.0 (0.0-0.2) X10*3/uL Abs Immat Gran (auto) 0.02 (0.00-0.03) X10*3/uL Absolute Neuts (auto) 5.1 (2.0-8.3) x10*3/uL Absolute Nucleated RBC 0.000 (0.0-0.012) X10*3/uL Nucleated RBC % (auto) 0.0 (0.0-0.2) /100WBC Sodium 143 (135-145) mmol/L Potassium 3.9 (3.3-5.1) mmol/L Chloride 111 H (96-108) mmol/L Carbon Dioxide 25 (22-29) mmol/L Anion Gap 11 L (12-20) BUN 9 (9-16) mg/dL Creatinine 0.62 (0.5-1.4) mg/dL Estim Creat Clear Calc 83.0 Estimated GFR > 60 Random Glucose 105 (60-115) mg/dL Lactic Acid 1.0 (0.5-2.0) mmol/L Calcium 8.7 (8.4-10.2) mg/dL Total Creatine Kinase 148 H (26-140) U/L Procalcitonin 0.02 ng/mL Urine Color Red A Urine Appearance Cloudy Urine pH 6.5 (5.0-9.0) Ur Specific [place] <= 1.005 (1.005-1.025) Urine Protein 300 (3+) H (Neg-Trace) mg/dL Urine Glucose (UA) Negative (Negative) mg/dL Urine Ketones Negative (Negative) mg/dL Urine Blood Large (3+) H (Negative) Urine Nitrite Not Reportable Ur Leukocyte Esterase Not Reportable Urine RBC 3-5 H (0-2) /HPF Urine WBC 0-5 (0-5) /HPF Ur Squamous Epith Cells 0-2 (0-2) /HPF Urine Bacteria None Seen (None Seen) Hyaline Casts 0-2 (0-2) /LPF Medications Administered Generic Name Dose Route Start Last Admin Trade Name Freq PRN Reason Stop Dose Admin Hydromorphone HCl 1 mg 05/01/25 16:24 05/01/25 18:08 Hydromorphone Hcl 1 Mg/Ml Syringe IVPUSH 1 mg Q4H PRN Administration Pain, Severe (Pain Scale 7-10) Protocol Lactated Ringer's 1,000 mls @ 100 mls/hr 05/01/25 16:15 05/01/25 18:12 Lr IVCONT 100 mls/hr .Q10H ADELA Administration Discontinued Medications Generic Name Dose Route Start Last Admin Trade Name Freq PRN Reason Stop Dose Admin Hydromorphone HCl 1 mg 05/01/25 12:04 05/01/25 12:17 Hydromorphone Hcl 1 Mg/Ml Syringe IVPUSH 05/01/25 12:05 1 mg ONCE ONE Administration Protocol Hydromorphone HCl 1 mg 05/01/25 14:46 05/01/25 14:51 Hydromorphone Hcl 1 Mg/Ml Syringe IVPUSH 05/01/25 14:47 1 mg ONCE ONE Administration Protocol Lactated Ringer's 1,000 mls @ 999 mls/hr 05/01/25 12:15 05/01/25 18:30 Lr IV 05/01/25 13:15 Infused .Q1H1M ADELA Infusion Ceftriaxone Sodium 2 gm/ 50 mls @ 100 mls/hr 05/01/25 12:04 05/01/25 13:07 Sodium Chloride IV 05/01/25 12:33 Infused ONCE ONE Infusion Iohexol 100 ml 05/01/25 14:04 05/01/25 14:05 Iohexol 350 Mg/Ml 100 Ml Infus..Btl IV 05/01/25 14:05 80 ml ONCE ONE Administration Discharge Plan Discharge Clinical Impression: Acute flank pain Patient Disposition: Home, Self-Care Discharge Date/Time: 05/01/25 17:22
[2025-05-01 12:07] VITALS: BP 130/63; PULSE 80; O2SAT 99
[2025-05-01 12:10] VITALS: BP 166/88; PULSE 86; RESP 16; TEMP 36.9; O2SAT 95; BMI 26.9
[2025-05-01] MEDS: Lactated Ringers 1,000 ML 999 ML IV (12:17)
[2025-05-01 12:29] LABS: MANUAL DIFF FLAG NO
[2025-05-01 12:30] LABS: Hematocrit 38.9 % (37.0-47.0); Hemoglobin 12.2 g/dl (12.0-16.0); Imm Gran Abs Auto 0.02 X10*3/uL (0.00-0.03); Imm Gran Pct Auto 0.3 % (0.0-0.4); Lymphocytes Absolute Auto 1.8 X10*3/uL (1.2-4.9); Mean Corpuscular HGB Conc 31.4 g/dl (31.0-35.0); Mean Corpuscular Hemoglobin 26.8 pg (27.0-33.0); Mean Corpuscular Volume 85.3 fL (80.0-98.0); NRBC Abs Auto 0.000 X10*3/uL (0.0-0.012); NRBC Pct Auto 0.0 /100WBC (0.0-0.2); Platelet Count 277 X10*3/uL (160-400); Red Blood Count 4.56 X10*6/uL (4.20-5.50); White Blood Count 7.5 X10*3/uL (4.8-10.8)
--- NOTE | 2025-05-01 12:35 | HO.NURTONUR ---
Pt was seen here yesterday for c/o bilat flank pain and dysuria x 2 days. Pt was sent home on abx and oral morphine. Pt called EMS today c/o N/V and worsening pain. Pt was medicated w/ 100mcq of Fentanyl enroute by EMS and still arrived to ED 10 pain. Pt was medicated w/ dilaudid 1mg w/ good effect.
[2025-05-01 12:54] LABS: Anion Gap 11 (12-20); Blood Urea Nitrogen 9 mg/dL (9-16); Calcium 8.7 mg/dL (8.4-10.2); Carbon Dioxide 25 mmol/L (22-29); Chloride 111 mmol/L (96-108); Creatinine Clr Calc Pharmacy 83.0; Estimated Glomerular Filt Rate > 60; Potassium 3.9 mmol/L (3.3-5.1); Sodium 143 mmol/L (135-145)
[2025-05-01 13:06] LABS: Appearance Urine Cloudy; Glucose Urine UA Negative (Negative); PH 6.5 (5.0-9.0); Specific Gravity - Urine <= 1.005 (1.005-1.025); UACC Culture Trigger YES; UMIC TRIGGER UACC YES
[2025-05-01 13:08] LABS: Procalcitonin 0.02 ng/mL
[2025-05-01] MEDS: iohexoL 350 MG/ML 100 ML INFUS..BTL IV (14:05)
[2025-05-01 14:16] VITALS: BP 148/82; PULSE 63; RESP 14; TEMP 36.8; O2SAT 95
--- OUTSIDE RECORDS SUMMARY | 2025-05-01 15:25 | XMS_ITS | Encounter Summary ---
Author Organization [employer] Address [address] [facility] [address] 7t [place] [address] Care Team Providers Care Repair Technician Name Role Phone Amber Quiroz MD Primary Care Provider [phone] Fred Parker RN Unavailable [phone] Sherry Herbert Unavailable Encounter Details Date Type Department Care Team (Late st Contact Info) Description 11/24/2023 Telephone [facility] MEDICINE 230 [place] [address] Amber Quiroz MD 230 [place] [address] Social History Tobacco Use Types [...] Care Team (Late st Contact Info) Description 05/15/2025 11:00 AM EST Clinical Support [facility] CHC MED & PEDS 505 [place] [address] Rachelle Lucero RN 505 [place] [address] 05/26/2025 10:00 AM EST Office Visit [facility] MEDICINE 230 [place] [address] Amber Quiroz MD [address] [place] [address] documented as of this encounter Visit Diagnoses Not on filedocumented in this encounter Care Teams Repair Technician Relationship Specialty Start Date End Date Amber Quiroz MD [address] [place] [address] PCP - General Family Medicine 07/03/18 Fred Parker, DOROTA 505 [place] [address] Registered Nurse Family Medicine 04/16/25 Sherry Herbert 04/16/25 documented as of this encounter
--- OUTSIDE RECORDS SUMMARY | 2025-05-01 15:25 | XMS_ITS ---
Author Organization [employer] Address 75 [facility] 7 [place] [address] Care Team Providers Care Technical Services Assistant Name Role Phone Amber Quiroz MD Primary Care Provider Fred Parker RN Unavailable [phone] Sherry Herbert Unavailable CM Complex Status:Outreach In Progress (Enrolling) Start date:04/16/2025 Enrollment reason:ADT Feed Overview ADT-[facility] ED 04/15/25 Case Team Name Relationship Phone Fred Parker RN(Responsible Staff) Registered Jeremie salgado [phone] Continued Care and Services Coordination
--- OUTSIDE RECORDS SUMMARY | 2025-05-01 15:25 | XMS_ITS | Encounter Summary ---
Author Organization [employer] Address 75 [facility] 7t [place] [address] Care Team Providers Care Pizza Delivery Driver Name Role Phone Amber Quiroz MD Primary Care Provider [phone] Fred Parker RN Unavailable [phone] Sherry Herbert Unavailable Reason for Visit * Reason Onset Date Comments status of oral surgery appt 11/11/2024 Encounter Details Date Type Department Care Team ([facility] st Contact Info) Description 11/11/2024 Telephone [facility] CHC ADULT DENTAL [address] [place], [place] [phone] Francisco Mohan, TRAY [address] [place], [place] [phone] status of oral surgery appt Social History [...] Description 05/15/2025 11:00 AM EST Clinical Support [facility] CHC MED & PEDS [address] [place] [address] Rachelle Lucero, RN 505 [place] [address] 05/26/2025 10:00 AM EST Office Visit [facility] MEDICINE 230 [place] [address] Amber Quiroz MD 230 [place] [address] documented as of this encounter Visit Diagnoses Not on filedocumented in this encounter Care Teams Pizza Delivery Driver Relationship Specialty Start Date End Date Amber Quiroz MD [address] [place] [address] PCP - General Family Medicine 07/03/18 Fred Parker, RN [address] [place] [address] Registered Nurse Family Medicine 04/16/25 Sherry Herbert 04/16/25 documented as of this encounter
--- OUTSIDE RECORDS SUMMARY | 2025-05-01 15:25 | XMS_ITS | Encounter Summary ---
Author Organization [facility] Address [address] [place] [address] Care Team Providers Care Residential Advisor Name Role Phone Physician, Pcp Unknown Primary Care Provider Faye vailable Encounter Details Date Type Department Care Team (Late st Contact Info) Description 09/25/[address] [facility] - Main Lab [address] [facility] [place] [address] Zachery Chi PA [address] [place] [address] [place] [address] Calculus of ureter Social History [...] ult [facility] LAB [address] [place] [address], documented in this encounter Visit Diagnoses Diagnosis Calculus of ureter documented in this encounter Care Teams Residential Advisor Relationship Specialty Start Date End Date Physician, Pcp Unknown PCP - General 04/18/25 documented as of this encounter
--- OUTSIDE RECORDS SUMMARY | 2025-05-01 15:25 | XMS_ITS | Encounter Summary ---
Author Organization [employer] Address [address] [place] [address] 7 [place] [address] Care Team Providers Care Provider Network Manager Name Role Phone Amber Quiroz MD Primary Care Provider [phone] Fred Parker RN Unavailable [phone] Sherry Herbert Unavailable Reason for Visit * Reason Comments Med Refill Encounter Details Date Type Department Care Team (Late st Contact Info) Description 11/29/2023 Refill [facility] MEDICINE 230 [place], [place] [phone] Charleen Latif MD 230 [place], [place] [phone] Nephrolithiasis Social History Tobacco Use Types Packs/Day [...] Description 05/15/2025 11:00 AM EST Clinical Support [facility] CHC MED & PEDS 505 [place] [address] Rachelle Lucero RN 505 [place] [address] 05/26/2025 10:00 AM EST Office Visit [facility] MEDICINE [address] [place] [address] Amber Quiroz MD [address] [place] [address] documented as of this encounter Visit Diagnoses Diagnosis Nephrolithiasis Calculus of kidney documented in this encounter Care Teams Provider Network Manager Relationship Specialty Start Date End Date Amber Quiroz MD [address] [place] [address] PCP - General Family Medicine 07/03/18 Fred Parker, RN 505 [place] [address] Registered Nurse Family Medicine 04/16/25 Sherry Herbert 04/16/25 documented as of this encounter
--- OUTSIDE RECORDS SUMMARY | 2025-05-01 15:25 | XMS_ITS | Encounter Summary ---
Author Organization [employer] Address [address] [facility] [address] 7t [place] [address] Care Team Providers Care Residential Property Tax Appraiser Name Role Phone Amber Quiroz MD Primary Care Provider [phone] rFed Parker RN Unavailable [phone] Sherry Herbert Unavailable Encounter Details Date Type Department Care Team (Late st Contact Info) Description 12/12/2023 Orders Only [facility] MEDICINE 230 [place], [place] [phone] Amber Quiroz MD 230 [place] [address] Nephrolithiasis (Primary Dx) Social History [...] Upcoming Encounters Date Type Department Care Team ([facility] st Contact Info) Description 05/15/2025 11:00 AM EST Clinical Support [facility] CHC MED & PEDS 505 [place] [address] Rachelle Lucero RN 505 [place] [address] 05/26/2025 10:00 AM EST Office Visit [facility] MEDICINE 230 [place] [address] Amber Quiroz MD 230 [place] [address] documented as of this encounter Visit Diagnoses Diagnosis Nephrolithiasis- Primary Calculus of kidney documented in this encounter Care Teams Residential Property Tax Appraiser Relationship Specialty Start Date End Date Amber Quiroz MD 230 [place] [address] PCP - General Family Medicine 07/03/18 Fred Parker, RN 505 [place] [address] Registered Nurse Family Medicine 04/16/25 Sherry Herbert 04/16/25 documented as of this encounter
--- OUTSIDE RECORDS SUMMARY | 2025-05-01 15:25 | XMS_ITS | Encounter Summary ---
Author Organization [employer] Address 75 [facility] 7 [place] [address] Care Team Providers Care Chemical Compounder Name Role Phone Amber Quiroz MD Primary Care Provider [phone] Fred Parker RN Unavailable [phone] Sherry Herbert Unavailable Reason for Referral * Consultation (Routine) - Closed Specialty Diagnoses / Procedures Referred By Catalina savage Referred To Contact Urology Diagnoses Nephrolithiasis Loin pain hematuria syndrome Recurrent urinary tract infection Amber Quiroz MD [address] [place] [address] Phone: tel: fax: [facility] Referral ID Status Reason Start Date Expiration Date V isits Requested Visits Authorized [id number] Closed Specialty Services Required 01/17/2025 01/17/2026 6 6 Encounter Details Date Type Department Care Team (Late st Contact Info) Description 01/17/2025 Orders Only [facility] MEDICINE 230 [place] [address] Amber Quiroz MD [address] [place] [address] Nephrolithiasis (Primary Dx); Loin pain [...] Description 05/15/2025 11:00 AM EST Clinical Support [facility] CHC MED & PEDS 505 [place] [address] Rachelle Lucero RN 505 [place] [address] 05/26/2025 10:00 AM EST Office Visit [facility] MEDICINE 230 [place] [address] Amber Quiroz MD [address] [place] [address] Scheduled Referrals Name Type Priority Associated Diagnoses [...] documented as of this encounter Care Teams Chemical Compounder Relationship Specialty Start Date End Date Amber Quiroz MD [address] [place] [address] PCP - General Family Medicine 07/03/18 Fred Parker, DOROTA [address] [place] [address] Registered Nurse Family Medicine 04/16/25 Sherry Herbert 04/16/25 documented as of this encounter
--- OUTSIDE RECORDS SUMMARY | 2025-05-01 15:25 | XMS_ITS | Encounter Summary ---
Author Organization [employer] Address 75 [facility] 7t [place] [address] Care Team Providers Care Costume Designer Name Role Phone Amber Quiroz MD Primary Care Provider [phone] Fred Parker RN Unavailable [phone] Sherry Herbret Unavailable Reason for Visit * Reason Onset Date Comments Appointment Request 11/22/2023 Encounter Details Date Type Department Care Team (Late st Contact Info) Description 11/22/2023 Telephone [facility] MEDICINE 230 [place] [address] Amber Quiroz MD 230 [place], [place] [phone] Appointment Request Social History Tobacco Use Types [...] due tosleep difficulty. Please contact pt at [phone]. documented in this encounter Plan of Treatment Upcoming Encounters Date Type Department Care Team (Late st Contact Info) Description 05/15/2025 11:00 AM EST Clinical Support [facility] CHC MED & PEDS 505 [place] [address] Rachelle Lucero RN [address] [place] [address] 05/26/2025 10:00 AM EST Office Visit [facility] MEDICINE [address] [place] [address] Amber Quiroz MD 230 [place] [address] documented as of this encounter Visit Diagnoses Not on filedocumented in this encounter Care Teams Costume Designer Relationship Specialty Start Date End Date Amber Quiroz MD 230 [place] [address] PCP - General Family Medicine 07/03/18 Fred Parker, RN 505 [place] [address] Registered Nurse Family Medicine 04/16/25 Sherry Herbert 04/16/25 documented as of this encounter
--- OUTSIDE RECORDS SUMMARY | 2025-05-01 15:25 | XMS_ITS ---
Author Organization [employer] Address 75 [facility] 7 [place] [address] Care Team Providers Care Commercial Relationship Manager Name Role Phone Amber Quiroz MD Primary Care Provider [phone] Fred Parker RN Unavailable [phone] Sherry Herbert Unavailable CHW Complex Status:Outreach In Progress (Enrolling) Start date:04/16/2025 Enrollment reason:ADT Feed Overview ADT-[facility] ED 04/15/25 Case Team Name Relationship Phone Sherry Herbert(Responsible Staff) Continued Care and Services Coordination
--- OUTSIDE RECORDS SUMMARY | 2025-05-01 15:25 | XMS_ITS | Encounter Summary ---
Author Organization [employer] Address [address] [facility] 7t [place] [address] Care Team Providers Care Education Program Manager Name Role Phone Amber Quiroz MD Primary Care Provider [phone] Fred Parker RN Unavailable [phone] Sherry Herbert Unavailable Reason for Visit * Reason Comments Med Refill Encounter Details Date Type Department Care Team (Late st Contact Info) Description 11/18/2024 Refill [facility] MED & PEDS [address] [place], [place] [phone] Amber Quiroz MD [address] [place], [place] [phone] Nephrolithiasis Social History Tobacco Use Types Packs/Day [...] Description 05/15/2025 11:00 AM EST Clinical Support [facility] MED & PEDS [address] [place] [address] Rachelle Lucero RN [address] [place] [address] 05/26/2025 10:00 AM EST Office Visit [facility] MEDICINE [address] [place] [address] Amber Quiroz MD [address] [place] [address] documented as of this encounter Visit Diagnoses Diagnosis Nephrolithiasis Calculus of kidney documented in this encounter Care Teams Education Program Manager Relationship Specialty Start Date End Date Amber Quiroz MD [address] [place] [address] PCP - General Family Medicine 07/03/18 Fred Parker, DOR[place] [address] [place] [address] Registered Nurse Family Medicine 04/16/25 Sherry Herbert 04/16/25 documented as of this encounter
--- OUTSIDE RECORDS SUMMARY | 2025-05-01 15:25 | XMS_ITS | Clinical Summary ---
Author Organization [facility] Address [address] [place] [address] Phone Care Team Providers Care Freight Loading Supervisor Name Role Phone Physician, Pcp Unknown Primary [...] EDT - 04/18/2025 8:58 PM EDT Emergency [facility] Emergency [address] [place] [address] Teo Holly MD Pyelonephritis (Primary [...] reflex microscopic (04/18/2025 7:57 PM EDT) Specific [place] Urine 1.033(H) 1.003 - 1.030 LAB URINALYSIS - AUTOMATED METHOD 04/18/2025 8:23 PM EDT [facility] pH, Urine 6.0 5.0 - 8.0 pH LAB URINALYSIS - AUTOMATED METHOD 04/18/2025 8:23 PM EDT [facility] Leukocytes, Urine Trace(A) Negative LAB URINALYSIS - AUTOMATED METHOD 04/18/2025 8:23 PM [facility] Nitrite, Urine Negative Negative LAB URINALYSIS - AUTOMATED METHOD 04/18/2025 8:23 PM [facility] Protein, Urine Trace <=Trace mg/dL LAB URINALYSIS - AUTOMATED METHOD 04/18/2025 8:23 PM [facility] Glucose, Urine Negative Negative mg/dL LAB URINALYSIS - AUTOMATED METHOD 04/18/2025 8:23 PM [facility] Ketones, Urine Negative Negative mg/dL LAB URINALYSIS - AUTOMATED METHOD 04/18/2025 8:23 PM [facility] Urobilinogen , Urine 0.2 0.2 - 1.0 mg/dL LAB URINALYSIS - AUTOMATED METHOD 04/18/2025 8:23 PM [facility] Bilirubin, Urine Negative Negative LAB URINALYSIS - AUTOMATED METHOD 04/18/2025 8:23 PM [facility] Blood, Urine Negative Negative LAB URINALYSIS - AUTOMATED METHOD 04/18/2025 8:23 PM [facility] RBC, Urine 1.5 0 - 4 /HPF LAB URINALYSIS - AUTOMATED METHOD 04/18/2025 8:23 PM [facility] WBC, Urine 16.5(H) 0 - 4 /HPF LAB URINALYSIS - AUTOMATED METHOD 04/18/2025 8:23 PM [facility] Squamous Epithelial, Urine >100(H) 0 - 60 /LPF LAB URINALYSIS - AUTOMATED METHOD 04/18/2025 8:23 PM [facility] Bacteria, Urine Moderate(A) Negative /HPF LAB URINALYSIS - AUTOMATED METHOD 04/18/2025 8:23 PM [facility] Hyaline Casts, Urine 8.8(H) 0 - 3 /LPF LAB URINALYSIS - AUTOMATED METHOD 04/18/2025 8:23 PM [facility] Urine Urine specimen obtained by clean catch procedure / Unknown Non-blood Collection / Unknown 04/18/2025 7:57 PM EDT 04/18/2025 8:01 PM EDT us Teo Holly MD LAB URINE ORDERABLES Final R esult [facility]) [facility] [address] [place] [address], [place] [phone] * CT Abdomen Pelvis w Contrast (04/18/2025 [...] LAB HEMETOLOGY METHOD 04/18/2025 5:48 PM EDT [facility] RBC 4.30 3.80 - 4.80 M/mcL LAB HEMETOLOGY METHOD 04/18/2025 5:48 PM EDT [facility] Hemoglobin 11.3(L) 11.5 - 16.0 g/dL LAB HEMETOLOGY METHOD 04/18/2025 5:48 PM EDT [facility] Hematocrit 36.1 35.0 - 47.0 % LAB HEMETOLOGY METHOD 04/18/2025 5:48 PM EDT [facility] MCV 84.0 79.0 - 98.0 FL LAB HEMETOLOGY METHOD 04/18/2025 5:48 PM EDT [facility] MCH 26.3(L) 27.0 - 32.0 pcg LAB HEMETOLOGY METHOD 04/18/2025 5:48 PM EDT [facility] MCHC 31.3(L) 32.0 - 37.0 g/dL LAB HEMETOLOGY METHOD 04/18/2025 5:48 PM EDT [facility] RDW 15.7(H) 11.0 - 15.0 % LAB HEMETOLOGY METHOD 04/18/2025 5:48 PM EDT [facility] Platelets 303 130 - 400 K/mcL LAB HEMETOLOGY METHOD 04/18/2025 5:48 PM EDT [facility] MPV 9.9 7.0 - 11.0 FL LAB HEMETOLOGY METHOD 04/18/2025 5:48 PM EDT [facility] NRBC 0.0 <1.0 % LAB HEMETOLOGY METHOD 04/18/2025 5:48 PM EDT [facility] NRBC Absolute 0.00 <0.10 K/mcL LAB HEMETOLOGY METHOD 04/18/2025 5:48 PM EDT [facility] Neutrophils Relative 50.8 % LAB HEMETOLOGY METHOD 04/18/2025 5:48 PM EDT [facility] Lymphocytes Relative 36.9 % LAB HEMETOLOGY METHOD 04/18/2025 5:48 PM EDT [facility] Monocytes Relative 7.8 % LAB HEMETOLOGY METHOD 04/18/2025 5:48 PM EDT [facility] Eosinophils Relative 3.7 % LAB HEMETOLOGY METHOD 04/18/2025 5:48 PM EDT [facility] Basophils Relative 0.4 % LAB HEMETOLOGY METHOD 04/18/2025 5:48 PM EDT [facility] Immature Granulocytes Relative 0.4 % LAB HEMETOLOGY METHOD 04/18/2025 5:48 PM EDT [facility] Neutrophils Absolute 3.59 1.50 - 7.00 K/mcL LAB HEMETOLOGY METHOD 04/18/2025 5:48 PM EDT [facility] Lymphocytes Absolute 2.61 1.00 - 5.00 K/mcL LAB HEMETOLOGY METHOD 04/18/2025 5:48 PM EDT [facility] Monocytes Absolute 0.55 0.20 - 1.00 K/mcL LAB HEMETOLOGY METHOD 04/18/2025 5:48 PM EDT [facility] Eosinophils Absolute 0.26 0.00 - 0.50 K/mcL LAB HEMETOLOGY METHOD 04/18/2025 5:48 PM EDT [facility] Basophils Absolute 0.03 0.00 - 0.20 K/mcL LAB HEMETOLOGY METHOD 04/18/2025 5:48 PM EDT [facility] Immature Granulocytes Absolute 0.03 0.00 - 0.03 K/mcL LAB HEMETOLOGY METHOD 04/18/2025 5:48 PM EDT [facility] Blood Venous blood specimen / Unknown Venipuncture / Unknown 04/18/2025 4:59 PM EDT 04/18/2025 5:34 PM EDT us Teo Holly MD LAB BLOOD ORDERABLES Final R esult [facility] [address] [place] [address], * Magnesium (04/18/2025 4:59 PM EDT) Magnesium 2.1 1.9 - 2.6 mg/dL LAB CHEMISTRY METHOD 04/18/2025 6:28 PM EDT [facility] Blood Venous blood specimen / Unknown Venipuncture / Unknown 04/18/2025 4:59 PM EDT 04/18/2025 5:34 PM EDT Teo Holly MD LAB BLOOD ORDERABLES Final R esult Performing Organization Address City/[facility]/ZIP Co de Phone Number [facility] [address] [place] [address], [place] [phone] * Lipase (04/18/2025 4:59 PM EDT) Lipase 35 13 - 75 unit/L LAB CHEMISTRY METHOD 04/18/2025 6:28 PM EDT [facility] Blood Venous blood specimen / Unknown Venipuncture / Unknown 04/18/2025 4:59 PM EDT 04/18/2025 5:34 PM EDT Teo Holly MD LAB BLOOD ORDERABLES Final R esult Performing Organization Address City/[facility]/ZIP Co de Phone Number [facility] [address] [place] [address], [place] [phone] * (ABNORMAL) Comprehensive Metabolic Panel (CMP) (04/18/2025 4:59 PM EDT) Sodium 144 133 - 145 mmol/L LAB CHEMISTRY METHOD 04/18/2025 6:30 PM EDT [facility] Potassium 3.8 3.5 - 5.5 mmol/L LAB CHEMISTRY METHOD 04/18/2025 6:30 PM EDT [facility] Chloride 112(H) 96 - 110 mmol/L LAB CHEMISTRY METHOD 04/18/2025 6:30 PM EDT [facility] CO2 27 21 - 32 mmol/L LAB CHEMISTRY METHOD 04/18[facility]2025 6:[facility] Anion Gap 5 3 - 11 LAB CHEMISTRY METHOD 04/18/2025 6:30 PM [facility] Glucose 119(H) 70 - 100 mg/dL LAB CHEMISTRY METHOD 04/18/2025 6:30 PM [facility] BUN 11 5 - 25 mg/dL LAB CHEMISTRY METHOD 04/18/2025 6:30 PM [facility] Creatinine 0.69 0.50 - 1.10 mg/dL LAB CHEMISTRY METHOD 04/18/2025 6:30 PM [facility] eGFR 99 >=60 mL/min/1. 73m2 LAB CHEMISTRY METHOD 04/18/2025 6:30 PM [facility] Comment:Calculation based on the Chronic Kidney Disease Epidemiology Collaboration (CKD-EPI) equation refit without adjustment for race. BUN/Creatinine Ratio 15.9 LAB CHEMISTRY METHOD 04/18/2025 6:30 PM [facility] Calcium 8.7 8.5 - 10.5 mg/dL LAB CHEMISTRY METHOD 04/18/2025 6:30 PM [facility] AST (SGOT) 26 10 - 42 unit/L LAB CHEMISTRY METHOD 04/18/2025 6:30 PM [facility] ALT (SGPT) 36 10 - 60 unit/L LAB CHEMISTRY METHOD 04/18/2025 6:30 PM [facility] Alkaline Phosphatase 138(H) 42 - 121 unit/L LAB CHEMISTRY METHOD 04/18/2025 6:30 PM [facility] Total Protein 7.0 6.0 - 8.0 g/dL LAB CHEMISTRY METHOD 04/18/2025 6:30 PM [facility] Albumin 3.8 3.2 - 5.0 g/dL LAB CHEMISTRY METHOD 04/18/2025 6:30 PM [facility] Total Bilirubin 0.2 0.0 - 1.4 mg/dL LAB CHEMISTRY METHOD 04/18/2025 6:30 PM EDT [facility] Blood Venous blood specimen / Unknown Venipuncture / Unknown 04/18/2025 4:59 PM EDT 04/18/2025 5:34 PM EDT us Teo Holly MD LAB BLOOD ORDERABLES Final R esult [facility] ([facility] [address] [place] [address], [place] [phone] from Last 3 Months Insurance MEDICAID - [place] Care Teams Freight Loading Supervisor Relationship Specialty Start Date End Date Physician, Pcp Unknown PCP - General 04/18/25
--- OUTSIDE RECORDS SUMMARY | 2025-05-01 15:26 | XMS_ITS | Encounter Summary ---
Author Organization [employer] Address [address] [facility] 7t [place] [address] Care Team Providers Care Hygiene Assistant Name Role Phone Amber Quiroz MD Primary Care Provider [phone] Fred Parker RN Unavailable [phone] Sherry Herbert Unavailable Reason for Visit * Reason Onset Date Comments Triage 04/29/2025 Encounter Details Date Type Department Care Team (Late st Contact Info) Description 04/29/[address] [facility] [address] [place] [address] Amber Quiroz MD [address] [place], [place] [phone] Triage Social History Tobacco Use Types Packs/Day [...] AM EDT Patient presented to walk in [place] and placed on schedule to be seen for asthma then pt took a seat. Within minutes of being seated pt came to the front office medical assistant crunched over holding right side states please call an ambulance, front office medical assistant came for a nurse pt was brought back to triage room in a wheel chair to assess. Patient was crying loudly reporting 10/10 pain. Pt reports history of kidney stateshas been having right sided kidney pain for three days which is now worse and has blood in her urine she then ask for ambulance again 911 initiated and pt transported to [facility]. Will forward to green team nurse for follow up and RECRUITING CONSULTANT nurse as patient has an appointment tomorrow. documented in this encounter Plan of Treatment Upcoming Encounters Date Type Department Care Team (Late st Contact Info) Description 05/15/2025 11:00 AM EST Clinical Support [facility] MED & PEDS [address] [place] [address] Rachelle Lucero RN [address] [place] [address] 05/26/2025 10:00 AM EST Office Visit [facility] MEDICINE [address] [place] [address] Amber Quiroz MD [address] [place] [address] documented as of this encounter Visit Diagnoses Not on filedocumented in this encounter Additional Health Concerns Assessment Noted Time PHQ-9 Depression Total Score: 9 12/03/19 25 4:14 PM EDT documented as of this encounter Care Teams Hygiene Assistant Relationship Specialty Start Date End Date Amber Quiroz MD [address] [place] [address] PCP - General Family Medicine 07/03/18 Fred Parker, RN [address] [place] [address] Registered Nurse Family Medicine 04/16/25 Sherry Herbert 04/16/25 documented as of this encounter
--- OUTSIDE RECORDS SUMMARY | 2025-05-01 15:26 | XMS_ITS | Encounter Summary ---
Author Organization [employer] Address [address] [facility] 7 [place] [address] Care Team Providers Care It Support Technician Name Role Phone Amber Quiroz MD Primary Care Provider [phone] Fred Parker RN Unavailable [phone] Sherry Herbert Unavailable Reason for Visit * Reason Comments Med Refill Encounter Details Date Type Department Care Team (Late st Contact Info) Description 04/26/2023 Refill [facility] MEDICINE [address] [place], [place] [phone] Alan Partida MD [address] [place], [place] [phone] Moderate persistent asthma without complication; Nausea Social [...] Department Care Team (Late Contact Info) Description 05/15/2025 11:00 AM EST Clinical Support [facility] CH[facility] MED & PEDS [address] [place], [place] [phone] Rachelle Lucero, DOR[place] [address] [place], [place] [phone] 05/26/2025 10:00 AM EST Office Visit [facility] MEDICINE [address] [place] [address] Amber Quiroz MD [address] [place] [phone] documented as of this encounter Visit Diagnoses Diagnosis Moderate persistent asthma without complication Nausea Nausea alone documented in this encounter Care Teams It Support Technician Relationship Specialty Start Date End Date Amber Quiroz MD [address] [place] [address] PCP - General Family Medicine 07/03/18 Fred Parker, RN [address] [place] [address] Registered Nurse Family Medicine 04/16/25 Sherry Herbert 04/16/25 documented as of this encounter
--- OUTSIDE RECORDS SUMMARY | 2025-05-01 15:26 | XMS_ITS | Encounter Summary ---
Author Organization [employer] Address 75 [facility] 7t [place] [address] Care Team Providers Care Entrepreneurial Finance Professor Name Role Phone Amber Quiroz MD Primary Care Provider [phone] Fred Parker RN Unavailable [phone] Sherry Herbert Unavailable Encounter Details Date [...] Description 05/15/2025 11:00 AM EST Clinical Support [facility] CH[facility] MED & PEDS [address] [place] [address] Rachelle Lucero RN [address] [place] [address] 05/26/2025 10:00 AM EST Office Visit [facility] MEDICINE [address] [place] [address] Amber Quiroz MD [address] [place] [address] documented as of this encounter Visit Diagnoses Not on filedocumented in this encounter Additional Health Concerns Assessment Noted Time PHQ-9 Depression Total Score: 9 12/03/19 25 4:14 PM EDT documented as of this encounter Care Teams Entrepreneurial Finance Professor Relationship Specialty Start Date End Date Amber Quiroz MD [address] [place] [address] PCP - General Family Medicine 07/03/18 Fred Parker, RN [address] [place] [address] Registered Nurse Family Medicine 04/16/25 Sherry Herbert 04/16/25 documented as of this encounter
--- OUTSIDE RECORDS SUMMARY | 2025-05-01 15:26 | XMS_ITS | Encounter Summary ---
Author Organization [email or web address] Address 75 [facility] 7 [place] [address] Care Team Providers Care Research Microbiologist Name Role Phone Amber Quiroz MD Primary Care Provider [phone] Fred Parker RN Unavailable [phone] Sherry Herbert Unavailable Reason for Visit * Reason Comments Med Refill Encounter Details Date Type Department Care Team (Late st Contact Info) Description 12/20/2024 Refill [facility] MEDICINE [address] [place], [place] [phone] Amber Quiroz MD [address] [place], [place] [phone] Nephrolithiasis Social History Tobacco Use Types Packs/Day [...] 11:00 AM EST Clinical Support [facility] MED & PEDS [address] [place] [address] Rachelle Lucero RN [address] [place] [address] 05/26/2025 10:00 AM EST Office Visit [facility] MEDICINE [address] [place] [address] Amber Quiroz MD [address] [place] [address] documented as of this encounter Visit Diagnoses Diagnosis Nephrolithiasis Calculus of kidney documented in this encounter Additional Health Concerns Assessment Noted Time PHQ-9 Depression Total Score: 9 12/03/19 25 4:14 PM EDT documented as of this encounter Care Teams Research Microbiologist Relationship Specialty Start Date End Date Amber Quiroz MD [address] [place] [address] PCP - General Family Medicine 07/03/18 Fred Parker, DOROTA 505 [facility] [place] [address] Registered Nurse Family Medicine 04/16/25 Sherry Herbert 04/16/25 documented as of this encounter
--- OUTSIDE RECORDS SUMMARY | 2025-05-01 15:26 | XMS_ITS | Encounter Summary ---
Author Organization [employer] Address 75 [facility] 7t [place] [address] Care Team Providers Care Cloth Hand Name Role Phone Amber Quiroz MD Primary Care Provider [phone] Fred Parker RN Unavailable [phone] Sherry Herbert Unavailable Encounter Details Date Type Department Care Team (Late st Contact Info) Description 12/18/2024 Telephone [facility] MEDICINE [address] [place], [place] [phone] Amber Quiroz MD [address] [place], [place] [phone] Social History Tobacco Use Types Packs/Day Years [...] returning call. Pt provided temporary contact number [phone] documented in this encounter Plan of Treatment Upcoming Encounters Date Type Department Care Team (Late st Contact Info) Description 05/15/2025 11:00 AM EST Clinical Support [facility] CHC MED & PEDS [address] [place] [address] Rachelle Lucero, RN [address] [place] [address] 05/26/2025 10:00 AM EST Office Visit [facility] MEDICINE [address] [place] [address] Amber Quiroz MD [address] [place] [address] documented as of this encounter Visit Diagnoses Not on filedocumented in this encounter Additional Health Concerns Assessment Noted Time PHQ-9 Depression Total Score: 9 12/03/19 25 4:14 PM EDT documented as of this encounter Care Teams Cloth Hand Relationship Specialty Start Date End Date Amber Quiroz MD [address] [place] [address] PCP - General Family Medicine 07/03/18 Fred Parker, DOROTA [address] [place] [address] Registered Nurse Family Medicine 04/16/25 Sherry Herbert 04/16/25 documented as of this encounter
--- OUTSIDE RECORDS SUMMARY | 2025-05-01 15:26 | XMS_ITS | Encounter Summary ---
Author Organization [employer] Address 75 [facility] 7 [place] [address] Care Team Providers Care Driller Portable Name Role Phone Amber Quiroz MD Primary Care Provider [phone] Fred Parker RN Unavailable Sherry Herbert Unavailable Reason for Visit * Reason Comments Care Coordination C3CM- chart review Encounter Details Date Type Department Care Team (Latest Contact Info) Description 04/16/2025 Patient Outreach [facility]C MED & PEDS [address] [place], [place] [phone] Amber Quiroz MD [address] [place], [place] [phone] Care Coordination (C3CM- chart review) Social History [...] abdominal pain, arthralgia of hip. Specialists include [facility] urology, ophthalmology, [facility] orthopaedic surgery. ED visits within the last 12 months include [facility] 04/15/25, [facility] 03/27/25, [facility] 03/08/25, [facility] 02/19/25, [facility] 02/08/25, [facility] 02/02/25, [facility] 01/09/25, [facility] 12/28/24, [facility] 12/25/24, [facility] 12/12/24, [facility] 12/10/24, [facility] 12/07/24, [facility] 11/29/24, etc... Last appointmentin PCP office on . No future appointment scheduled at this time. documented in this encounter Plan of Treatment Upcoming Encounters Date Type Department Care Team (Late st Contact Info) Description 05/15/2025 11:00 AM EST Clinical Support [facility] MED & PEDS [address] [place] [address] Rachelle Lucero RN [address] [place] [address] 05/26/2025 10:00 AM EST Office Visit [facility] MEDICINE [address] [place] [address] Amber Quiroz MD [address] [place] [address] documented as of this encounter Visit Diagnoses Not on filedocumented in this encounter Additional Health Concerns Assessment Noted Time PHQ-9 Depression Total Score: 9 12/03/19 25 4:14 PM EDT documented as of this encounter Care Teams Driller Portable Relationship Specialty Start Date End Date Amber Quiroz MD [address] [place] [address] PCP - General Family Medicine 07/03/18 Fred Parker, RN [address] [place] [address] Registered Nurse Family Medicine 04/16/25 Sherry Herbert 04/16/25 documented as of this encounter
--- OUTSIDE RECORDS SUMMARY | 2025-05-01 15:26 | XMS_ITS | Encounter Summary ---
Author Organization [employer] Address [address] [facility] 7t [place] [address] Care Team Providers Care Mill And Coal Transport Operator Name Role Phone Amber Quiroz MD Primary Care Provider [phone] Fred Parker RN Unavailable [phone] Sherry Herbert Unavailable Encounter Details Date Type Department Care Team (Late st Contact Info) Description 09/04/2024 Orders Only [facility] MEDICINE [address] [place], [place] [phone] Amber Quiroz MD [address] [place] [address] Routine screening for STI (sexually [...] Upcoming Encounters Date Type Department Care Team ([facility] st Contact Info) Description 05/15/2025 11:00 AM EST Clinical Support [facility] MED & PEDS [address] [place] [address] Rachelle Lucero, DOROTA [address] [place] [address] 05/26/2025 10:00 AM EST Office Visit [facility] MEDICINE [address] [place] [address] Amber Quiroz MD [address] [place] [address] Scheduled Orders Name Type Priority Associated Diagnoses [...] disease documented in this encounter Care Teams Mill And Coal Transport Operator Relationship Specialty Start Date End Date Amber Quiroz MD [address] [place] [address] PCP - General Family Medicine 07/03/18 Fred Parker, DOROTA [address] [place] [address] Registered Nurse Family Medicine 04/16/25 Sherry Herbert 04/16/25 documented as of this encounter
--- OUTSIDE RECORDS SUMMARY | 2025-05-01 15:26 | XMS_ITS | Encounter Summary ---
Author Organization [employer] Address [address] [place] [address] 7 [place] [address] Care Team Providers Care Cam Specialist Name Role Phone Amber Quiroz MD Primary Care Provider [phone] Fred Parker RN Unavailable [phone] Sherry Herbert Unavailable Encounter Details Date Type Department Care Team (Late st Contact Info) Description 07/28/2022 Orders Only [facility] MEDICINE [address] [place] [address] [phone] Anabell Martinez LPN Social History Tobacco Use [...] Description 05/15/2025 11:00 AM EST Clinical Support [facility] MED & PEDS [address] [place] [address] Rachelle Lucero, DOROTA [address] [place] [address] 05/26/2025 10:00 AM EST Office Visit [facility] MEDICINE [address] [place], [place] [phone] Amber Quiroz MD [address] [place] [address] documented as of this encounter Procedures Procedure [...] (08/02/2022 12:29 AM EST) Color Urine Yellow [facility] Appearance Urine Turbid [facility] PH 6.5 5.0 - 9.0 [facility] Glucose Urine UA Negative Negative mg/dL [facility] Urine Blood Trace(A) Negative [facility] Specific Fountain - Urine 1.020 1.005 - 1.025 [facility] Urine Protein 30 (1+)(A) Neg-Trace mg/dL [facility] Urine Ketones Negative Negative mg/dL [facility] Nitrite Urine Negative Negative [facility] Leukocyte Esterase Urine Large (3+)(A) Negative [facility] RBC Urine 0-2 0 - 2 /HPF [facility] Urine WBC >50(A) 0 - 5 /HPF [facility] Urine Squamous Epithelial Cell 6-10 0 - 2 /HPF [facility] Urine Bacteria 1+ None Seen [facility] Hyaline Casts, Urine 3-5 0 - 2 /LPF [facility] 08/02/2022 12:2 9 AM EST 08/02/2022 12:31 AM EST Narrative [facility] - 08/02/2022 12:50 AM EST Urine, Clean Catch [facility] External Provider LAB URI NE ORDERABLES Final Result Performing Organization Address [facility] Co de Phone Number [facility] [address] [place] [phone] SARS-CoV-2 RNA, Influenza A/B, and RSV RNA, Ql NAAT (08/02/2022 12:17 AM EST) Influenza A PCR NEGATIVE Negative [facility] Influenza B PCR NEGATIVE Negative [facility] Resp Syncy Virus RNA Qual PCR NEGATIVE Negative [facility] SARS COV2 PCR NEGATIVE Negative [facility] SARS/Flu/RSV Note See Note [facility] Comment:All test results mus t [...] use by authorized laboratories.Testing performed on the W-21 GeneXpert utilizingreal-time RT-PCR.All SARS CoV2 and positive influenza A/B results arereported to [facility]. 08/02/2022 12:1 7 AM EST 08/02/2022 12:19 AM EST [facility] Exter nal Provider LAB MICROBIOLOGY - GENERAL ORDERABLES Final Result Performing Organization Address [facility] Co de Phone Number [facility] [address] [place] [phone] * (ABNORMAL) Basic Metabolic Panel (08/02/2022 12:17 AM EST) Sodium 140 135 - 145 mmol/L [facility] Potassium 3.9 3.3 - 5.1 mmol/L [facility] Chloride 105 96 - 108 mmol/L [facility] Carbon Dioxide 24 22 - 29 mmol/L [facility] Anion Gap 15 12 - 20 [facility] Urea Nitrogen (BUN) 14 9 - 16 mg/dL [facility] Creatinine, Serum 0.75 0.5 - 1.4 mg/dL [facility] Creatinine Clr Calc Pharmacy 71.4 [facility] Comment:Provided height and weight: 162.56 cm,63.503 kg.eGFR (calculated from the MDRD study equation) and eCrCl(calculated from the Cockcroft-Gault equation) are based ondifferent parameters and may not yield comparable results.If eCrCl result is absurd, please check patient'sheight/weight. Estimated Glomerular Filt Rate >60 [facility] Comment:NOTE: For -Am erican individuals, multiply the result by 1.210.Chronic Kidney Disease: Estimated GFR < 60 mL/min/1.28l2Gxpctk Kidney Disease: Estimated GFR < 15 mL/min/1.73m2 Glucose 119(H) 60 - 115 mg/dL [facility] Calcium 9.0 8.4 - 10.2 mg/dL [facility] 08/02/2022 12:1 7 AM EST 08/02/2022 12:19 AM EST [facility] External Provider LAB BLO OD ORDERABLES Final Result [facility] [address] [place] [address] [phone] * (ABNORMAL) CBC auto differential (08/02/2022 12:17 AM EST) White Blood Count 6.4 4.8 - 10.8 X10*3/uL [facility] Red Blood Count 3.96(L) 4.20 - 5.50 X10*6/uL [facility] Hemoglobin 10.8(L) 12.0 - 16.0 g/dl [facility] Hematocrit 33.0(L) 37.0 - 47.0 % [facility] Mean Corpuscular Volume 83.3 80.0 - 98.0 fL [facility] Mean Corpuscular Hemoglobin 27.3 27.0 - 33.0 pg [facility] Mean Corpuscular HGB Conc 32.7 31.0 - 35.0 g/dl [facility] Red Cell Distribution Width 14.2 11.0 - 16.0 % [facility] Platelet Count 202 160 - 400 X10*3/uL [facility] Mean Platelet Volume 9.2(L) 9.4 - 12.3 fL [facility] Neutrophils Percent Auto 68.5 45 - 73 % [facility] Imm Gran Pct Auto 0.2 0.0 - 0.4 % [facility] Lymphocytes Percent Auto 21.9 20 - 40 % [facility] Monocytes Percent Auto 8.6 2 - 11 % [facility] Eosinophils Percent Auto 0.5 0 - 4 % [facility] Basophils Percent Auto 0.3 0 - 2 % [facility] NRBC Pct Auto 0.0 0.0 - 0.2 /100WBC [facility] Neutrophils Absolute Auto 4.4 2.0 - 8.3 x10*3/uL [facility] Imm Gran Abs Auto 0.01 0.00 - 0.03 X10*3/uL [facility] Lymphocytes Absolute Auto 1.4 1.2 - 4.9 X10*3/uL [facility] Monocytes Absolute Auto 0.6 0.1 - 1.2 X10*3/uL [facility] Eosinophils Absolute Auto 0.0 0.0 - 0.4 X10*3/uL [facility] Basophils Absolute Auto 0.0 0.0 - 0.2 X10*3/uL [facility] NRBC Abs Auto 0.000 0.0 - 0.012 X10*3/uL [facility] 08/02/2022 12:1 7 AM EST 08/02/2022 12:19 AM EST [facility] External Provider LAB BLO OD ORDERABLES Final Result Performing Organization Address City/[facility]/ZIP Co de Phone Number [facility] [address] [place] [address] [phone] * Culture, Urine, Routine (08/02/2022 12:00 AM EST) 08/02/2022 08/02/2022 7:3 1 AM EST Comment:[facility] Narrative [facility] - 08/03/2022 9:19 AM EST Urine Culture No growth. Specimen Source: Urine clean catch [facility] Exter nal Provider LAB MICROBIOLOGY - GENERAL ORDERABLES Final Result Performing Organization Address [facility] Co de Phone Number [facility] [address] [place] [address] [phone] documented in this encounter Visit Diagnoses Not on filedocumented in this encounter Care Teams Cam Specialist Relationship Specialty Start Date End Date Amber Quiroz MD [address] [place] [address] PCP - General Family Medicine 07/03/18 Fred Parker, RN [address] [place] [phone] Registered Nurse Family Medicine 04/16/25 Sherry Herbert 04/16/25 documented as of this encounter
--- OUTSIDE RECORDS SUMMARY | 2025-05-01 15:26 | XMS_ITS | Encounter Summary ---
Author Organization [employer] Address [address] [facility] 7 [place] [address] Care Team Providers Care Adult Parole Officer Name Role Phone Ambre Quiroz MD Primary Care Provider [phone] Fred Parker RN Unavailable [phone] Sherry Herbert Unavailable Encounter Details Date Type Department Care Team (Late st Contact Info) Description 11/16/2022 Abstract [facility] MEDICINE [address] [place] [address] Amber Quiroz MD [address] [place], [place] [phone] Social History Tobacco Use Types Packs/Day Years [...] [facility]EDS [address] [place] [address] Rachelle Lucero, DOROTA [address] [place] [address] 05/26/2025 10:00 AM EST Office Visit [facility] [address] [place] [address] Amber Quiroz MD [address] [place] [address] documented as of this encounter Visit Diagnoses Not on filedocumented in this encounter Care Teams Adult Parole Officer Relationship Specialty Start Date End Date Amber Quiroz MD [address] [place] [address] PCP - General Family Medicine 07/03/18 Fred Parker, DOROTA [address] [place] [phone] Registered Nurse Family Medicine 04/16/25 Sherry Herbert 04/16/25 documented as of this encounter
--- OUTSIDE RECORDS SUMMARY | 2025-05-01 15:26 | XMS_ITS | Encounter Summary ---
Author Organization [employer] Address [address] [place] [address] Care Team Providers Care Grocery Clerk Name Role Phone Amber Quiroz MD Primary Care Provider Fred Parker RN Unavailable [phone] Sherry Herbert Unavailable Encounter Details Date Type Department Care Team (Late st Contact Info) Description 05/01/2025 Orders Only [facility] External Provider, [facility] Social History Tobacco Use Types Packs/Day [...] Description 05/15/2025 11:00 AM EST Clinical Support [facility] CHC MED & PEDS [address] [place] [address] Rachelle Lucero RN [address] [place], [place] [phone] 05/26/2025 10:00 AM EST Office Visit [facility] MEDICINE [address] [place], [place] [phone] Amber Quiroz MD [address] [place], [place] [phone] documented as of this encounter Procedures Procedure Name Priority Date/Time Associated Diagnosis Comments CTA ABDOMEN W AND WO CONTRAST Routine 05/01/2025 1:50 PM EDT documented in this encounter Results * CTA Abdomen w/ and w/o Contrast (05/01/2025 1:50 PM EDT) Anatomical Region Laterality Modality Body, Abdomen Computed Tomogra phy 05/01/2025 1:50 PM EDT Narrative 05/01/2025 2:17 PM EDT [facility] [address] [place] [address] Scan Report Signed Patient: John Marquez MR#: [id number] 760 : 1965 Acct:[id number] Age/Sex: 59 / F ADM Date: 05/01/25 Loc: HO.ED Attending Dr: Ordering Physician: Jeovany Cunningham MD Date of Service: 05/01/25 Procedure(s): CT angio abdomen Accession Number(s): [id number] cc: Jeovany Cunningham MD; Amber Quiroz MD Report Number: [id number]: Total DLP = 197.00 mGy-cm Reason for Exam: R flank pain, stone hx. pain out of proportion EXAMINATION: CT ABDOMEN ANGIOGRAPHY WITH IV CONTRAST HISTORY: R flank pain, stone hx. Pain out of proportion COMPARISON: Comparison is made with the prior examination dated 04/19/2025. TECHNIQUE: CT angiography of the abdomen was performed following administration of 80 mL Omnipaque 350 using standard departmental protocol. Coronal and sagittal reformatted images were generated and reviewed. This CT exam was performed with one or more of the following dose reduction techniques: automated exposure control, adjustment of the mA and/or kV according to patient size, use of iterative reconstruction technique. DLP: 197 mGy-cm FINDINGS: LOWER CHEST: The visualized lung bases are clear. There is no pleural effusion. CARDIOVASCULATURE: The heart is normal in size. There is no pericardial effusion. LIVER: The liver is normal in size and contour. No liver mass is identified. The hepatic and portal veins are patent. GALLBLADDER / BILE DUCTS: The gallbladder is unremarkable. There is no intra or extrahepatic biliary ductal dilatation. SPLEEN: The spleen is normal in size. No focal splenic lesion is identified. PANCREAS: The pancreas is unremarkable in appearance. ADRENAL GLANDS: Within normal limits. KIDNEYS/RETROPERITONEUM: No renal calculi are identified. There is no hydronephrosis. Again seen is a 1.2 cm fat density lesion at the upper pole of the right kidney, consistent with an angiomyolipoma. LYMPH NODES: No abdominal lymphadenopathy. VASCULATURE: The abdominal aorta is normal in caliber. The celiac axis, superior mesenteric artery, inferior mesenteric artery are patent. A single renal artery is noted on the right. There are 2 renal arteries on the left. All renal arteries are patent. The common iliac arteries are normal in caliber. MESENTERY/PERITONEUM: No free fluid. No masses. There is no free intraperitoneal gas. STOMACH: The stomach is collapsed, limiting evaluation. SMALL BOWEL: The visualized small bowel is normal in caliber. COLON: The visualized portion of the colon is unremarkable. BONES / SOFT TISSUES: No suspicious bony or soft tissue abnormalities. CT/CT angio abdomen IMPRESSION: 1. Unremarkable CT angiogram of the abdomen. 2. 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 Electronically signed by: Misha Curtis MD 05/01/2025 02:14 PM EDT RP Dictated By: Misha Curtis MD Signed By: <Electronically signed by Misha Curtis MD in OV> 05/01/25 1414 DD/ 1350 TD/TT: 05/01/25 1405 Buggy Ladle Tender: Procedure Note Donotuseinterpreter, Image - 05/01/[address] [place] [address] [address] Scan Report Signed Patient: Heidi Marquez#: [id number] 760 : 1965Acct:[id number] Age/Sex: 59 / FADM Date: 05/01/25 Loc: HO.ED Attending Dr: Ordering Physician: Jeovany Cunningham MD Date of Service: 05/01/25 Procedure(s): CT angio abdomen Accession Number(s): [id number] cc: Jeovany Cunningham MD; Amber Quiroz MD Report Number: [id number]: Total DLP = 197.00 mGy-cm Reason for Exam: R flank pain, stone hx. pain out of proportion EXAMINATION: CT ABDOMEN ANGIOGRAPHY WITH IV CONTRAST HISTORY: R flank pain, stone hx. Pain out of proportion COMPARISON: Comparison is made with the prior examination dated 04/19/2025. TECHNIQUE: CT angiography of the abdomen was performed following administration of 80 mL Omnipaque 350 using standard departmental protocol. Coronal and sagittal reformatted images were generated and reviewed. This CT exam was performed with one or more of the following dose reduction techniques: automated exposure control, adjustment of the mA and/or kV according to patient size, use of iterative reconstruction technique. DLP: 197 mGy-cm FINDINGS: LOWER CHEST: The visualized lung bases are clear. There is no pleural effusion. CARDIOVASCULATURE: The heart is normal in size. There is no pericardial effusion. LIVER: The liver is normal in size and contour. No liver mass is identified. The hepatic and portal veins are patent. GALLBLADDER / BILE DUCTS: The gallbladder is unremarkable. There is no intra or extrahepatic biliary ductal dilatation. SPLEEN: The spleen is normal in size. No focal splenic lesion is identified. PANCREAS: The pancreas is unremarkable in appearance. ADRENAL GLANDS: Within normal limits. KIDNEYS/RETROPERITONEUM: No renal calculi are identified. There is no hydronephrosis. Again seen is a 1.2 cm fat density lesion at the upper pole of the right kidney, consistent with an angiomyolipoma. LYMPH NODES: No abdominal lymphadenopathy. VASCULATURE: The abdominal aorta is normal in caliber. The celiac axis, superior mesenteric artery, inferior mesenteric artery are patent. A single renal artery is noted on the right. There are 2 renal arteries on the left. All renal arteries are patent. The common iliac arteries are normal in caliber. MESENTERY/PERITONEUM: No free fluid. No masses. There is no free intraperitoneal gas. STOMACH: The stomach is collapsed, limiting evaluation. SMALL BOWEL: The visualized small bowel is normal in caliber. COLON: The visualized portion of the colon is unremarkable. BONES / SOFT TISSUES: No suspicious bony or soft tissue abnormalities. CT/CT angio abdomen IMPRESSION: 1. Unremarkable CT angiogram of the abdomen. 2. 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 Electronically signed by: Misha Curtis MD 05/01/2025 02:14 PM EDT Dictated By: Misha Curtis MD Signed By: <Electronically signed by Misha Curtis MD in OV> 05/01/25 1414 DD/ 1350 TD/TT: 05/01/25 1405 Buggy Ladle Tender: [facility] External Provider IMG CT PROCEDURES Final Result documented in this encounter Visit Diagnoses Not on filedocumented in this encounter Additional Health Concerns Assessment Noted Time PHQ-9 Depression Total Score: 9 12/03/19 4:14 PM EDT documented as of this encounter Care Teams Grocery Clerk Relationship Specialty Start Date End Date Amber Quiroz MD [address] [place] [address] PCP - General Family Medicine 07/03/18 Fred Parker, DOROTA [address] [place] [address] Registered Nurse Family Medicine 04/16/25 Sherry Herbert 04/16/25 documented as of this encounter
--- OUTSIDE RECORDS SUMMARY | 2025-05-01 15:26 | XMS_ITS | Encounter Summary ---
Author Organization [employer] Address [address] [place] [address] 7 [place] [address] Care Team Providers Care Lumber Stacker Driver Name Role Phone Amber Quiroz MD Primary Care Provider [phone] Fred Parker RN Unavailable [phone] Sherry Herbert Unavailable Encounter Details Date Type Department Care Team (Late st Contact Info) Description 04/05/2023 Orders Only [facility] MED & PEDS [address] [place] [address] Anabell Martinez LPN Social History Tobacco Use [...] Description 05/15/2025 11:00 AM EST Clinical Support [facility] MED & PEDS [address] [place] [address] Rachelle Lucero RN [address] [place] [address] 05/26/2025 10:00 AM EST Office Visit [facility] MEDICINE [address] [place] [address] Amber Quiroz MD [address] [place] [address] documented as of this encounter Visit Diagnoses Not on filedocumented in this encounter Care Teams Lumber Stacker Driver Relationship Specialty Start Date End Date Amber Quiroz MD [address] [place] [address] [phone] PCP - General Family Medicine 07/03/18 Fred Parker, DOROTA [address] [place] [phone] Registered Nurse Family Medicine 04/16/25 Sherry Herbert 04/16/25 documented as of this encounter
--- OUTSIDE RECORDS SUMMARY | 2025-05-01 15:26 | XMS_ITS | Encounter Summary ---
Author Organization [employer] Address [address] [facility] 7t [place] [address] Care Team Providers Care Financial Administrative Assistant Name Role Phone Amber Quiroz MD Primary Care Provider [phone] Fred Parker RN Unavailable [phone] Sherry Herbert Unavailable Encounter Details Date Type Department Care Team (Late st Contact Info) Description 03/07/2025 Orders Only [facility] MEDICINE [address] [place], [place] [phone] Amber Quiroz MD [address] [place], [place] [phone] Flank pain (Primary Dx); History of total [...] Description 05/15/2025 11:00 AM EST Clinical Support [facility] CHC MED & PEDS [address] [place] [address] Rachelle Lucero, DOROTA [address] [place] [address] 05/26/2025 10:00 AM EST Office Visit [facility] MEDICINE [address] [place] [address] Amber Quiroz MD [address] [place] [address] documented as of this encounter Procedures Procedure Name Priority Date/Time Associated Diagnosis Comments CT ABDOMEN PELVIS WO CONTRAST Routine 03/08/2025 1:06 PM EDT documented in this encounter Results * CT Abdomen Pelvis w/o Contrast (03/08/2025 1:06 PM EDT) Anatomical Region Laterality Modality Body, Pelvis, Abdomen Computed T omography 03/08/2025 1:06 PM EDT Narrative 03/08/2025 1:08 PM EDT [address] [address] [address] Scan Report Signed Patient: John Marquez MR#: [id number] 760 : 1965 Acct:[id number] Age/Sex: 59 / F ADM Date: 03/08/25 Loc: HO.ED Attending Dr: Ordering Physician: Kaia Hamilton Date of Service: 03/08/25 Procedure(s): CT abdomen pelvis wo IV con Accession Number(s): [id number] cc: Kaia Hamilton; Amber Quiroz MD Report Number: [id number]: Total DLP = 449.00 mGy-cm Reason for Exam: abbd pain, flank pain CLINICAL HISTORY: abbd pain, flank pain CT abdomen and pelvis without contrast Comparison: CT/DE/SR - CT ABDOMEN PELVIS WO IV CON [...] 03/08/25 1307 DD/ 1306 TD/TT: 03/08/25 1306 Applications Intern: Procedure Note Donotuseinterpreter, Image - 03/08/[address] [address] [address] Scan Report Signed Patient: Heidi Marquez#: [id number] 760 : 1965Acct:[id number] Age/Sex: 59 / FADM Date: 03/08/25 Loc: HO.ED Attending Dr: Ordering Physician: Kaia Hamilton Date of Service: 03/08/25 Procedure(s): CT abdomen pelvis wo IV con Accession Number(s): [id number] cc: Kaia Hamilton; Amber Quiroz MD Report Number: [id number]: Total DLP = 449.00 mGy-cm Reason for Exam: abbd pain, flank pain CLINICAL HISTORY: abbd pain, flank pain CT abdomen and pelvis without contrast Comparison: CT/DE/SR - CT ABDOMEN PELVIS WO IV CON [...] 03/08/25 1307 DD/ 1306 TD/TT: 03/08/25 1306 Applications Intern: [facility] External Provider IMG CT PROCEDURES Final [...] as of this encounter Care Teams Financial Administrative Assistant Relationship Specialty Start Date End Date Amber Quiroz MD [address] [place] [address] PCP - General Family Medicine 07/03/18 Fred Parker RN [address] [place] [address] Registered Nurse Family Medicine 04/16/25 Sherry Herbert 04/16/25 documented as of this encounter
--- OUTSIDE RECORDS SUMMARY | 2025-05-01 15:26 | XMS_ITS | Encounter Summary ---
Author Organization [employer] Address [address] [facility] 7 [place] [address] Care Team Providers Care Service Counter Cashier Name Role Phone Amber Quiroz MD Primary Care Provider [phone] Fred Parker RN Unavailable [phone] Sherry Herbert Unavailable Reason for Visit * Reason Comments Med Refill Encounter Details Date Type Department Care Team (Late st Contact Info) Description 04/26/2023 Refill [facility] MEDICINE [address] [place], [place] [phone] Amber Quiroz MD [address] [place], [place] [phone] Nausea Social History Tobacco Use Types Packs/Day [...] 11:00 AM EST Clinical Support [facility] CHC MED & PEDS [address] [place] [address] Rachelle Lucero, DOROTA [address] [place] [address] 05/26/2025 10:00 AM EST Office Visit [facility] MEDICINE [address] [place] [address] Amber Quiroz MD [address] [place] [address] documented as of this encounter Visit Diagnoses Diagnosis Nausea Nausea alone documented in this encounter Care Teams Service Counter Cashier Relationship Specialty Start Date End Date Amber Quiroz MD [address] [place] [address] PCP - General Family Medicine 07/03/18 Fred Parker RN [address] [place] [address] Registered Nurse Family Medicine 04/16/25 Sherry Herbert 04/16/25 documented as of this encounter
--- OUTSIDE RECORDS SUMMARY | 2025-05-01 15:26 | XMS_ITS | Clinical Summary ---
Author Organization [employer] Address [address] [facility] 7t [place] [address] Care Team Providers Care Employee Communications Manager Name Role Phone Amber Quiroz MD Primary Care Provider [phone] Fred Parker RN Unavailable [phone] Sherry Herbert Unavailable Allergies Active Allergy [...] mouth. 10/14/19 25 Active Blood Pressure Monitor [facility] Check BP daily 1 each 11/13/19 25 [...] dependence. Patient states she is going to [place] tomorrow for about 1 week. Therefore, we agreed that she will be able to berry picker tramadol today, and after she returns from [place] we will discuss about buprenorphine. 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 - Seen by urologist, [facility] urology 10/08/24 - Pt states she has a follow up appointment tomorrow (? Pt might be going to [place] tomorrow as well). - Discussed about my [...] of lung 04/22/2013 05/04/2023 Asthma with COPD ([facility]/HCC) 10/22/2012 Lung mass 10/22/2012 05/04/2023 Anemia 06/05/2012 [...] Encounters Date Type Department Care Team Description 05/01/2025 Orders Only [facility] External Provider, [facility] 04/30/2025 Telephone [facility] [address] [place], [place] [phone] Rachelle Lucero, DOROTA 04/29/2025 Orders Only GENERIC EXTERNAL DATA DEPARTMENT Provider, Generic External Data 04/29/2025 Telephone [facility] [address] [place] [address] Amber Quiroz MD Triage 04/29/2025 Travel 04/24/2025 Travel 04/24/[address] [address] Amber Quiroz MD Med Refill 04/24/2025 Refill [facility] [address] [place] [address] Amber Quiroz MD Moderate persistent asthma without complication; Flank pain; History of total knee replacement, unspecified laterality; Primary osteoarthritis of left knee; Loin pain hematuria syndrome; Chronic back pain, unspecified back location, unspecified back pain laterality 04/19/2025 Orders Only GENERIC EXTERNAL DATA DEPARTMENT Provider, Generic External Data 04/18/2025 Patient Outreach [address] [address] Amber Quiroz MD Care Coordination ([facility] telephone call outreach) 04/17/2025 Orders Only GENERIC EXTERNAL DATA DEPARTMENT Provider, Generic External Data 04/16/2025 Patient Outreach [address] [address] Amber Quiroz MD Care Coordination ([facility] telephone call outreach ) 04/16/2025 Patient Outreach [facility] [address] [place] [address] Amber Quiroz MD Care Coordination ([facility]- chart review) 04/16/2025 Patient Outreach [address] [address] Amber Quiroz MD 04/11/2025 Telephone [facility] [address] [place] [address] Rachelle Lucero, DOROTA 04/04/2025 Refill [facility] [address] [place] [address] Amber Quiroz MD Moderate persistent asthma without complication; Flank pain; History of total knee replacement, unspecified laterality; Primary osteoarthritis of left knee; Loin pain hematuria syndrome; Chronic back pain, unspecified back location, unspecified back pain laterality 03/16/2025 Refill [facility] [address] [place] [address] Amber Quiroz MD 03/11/2025 Patient Outreach [address] [address] Amber Quiroz MD Care Coordination ([facility] f/u) 03/11/[address] [address] Amber Quiroz MD Care Management ([facility]- f/u call lv) 03/08/2025 Orders Only GENERIC EXTERNAL DATA DEPARTMENT Provider, Generic External Data 03/07/2025 Orders Only [address] [address] Amber Quiroz MD Flank pain (Primary Dx); History of total knee replacement, unspecified laterality; Primary osteoarthritis of left knee; Loin pain hematuria syndrome; Chronic back pain, unspecified back location, unspecified back pain laterality 03/07/2025 Travel 03/07/2025 Telephone [facility] [address] [place] [address] Rachelle Lucero RN CLIENT SERVICE CONSULTANT 03/06/2025 Refill [facility] [address] [place] [address] Amber Quiroz MD Flank pain 02/24/[address] [address] Amber Quiroz MD Care Management ([facility]- f/u call lvm) 02/12/[address] [address] Amber Quiroz MD No Show (Pt no show sick onsite/) 02/11/[address] [address] Cheryl Larkin, CYTOGENETIC TECHNICIAN Follow-up 02/10/2025 Refill [facility] [address] [place] [address] Rachelle Lucero RN Flank pain (Primary Dx) 02/10/2025 Telephone [facility] [address] [place] [address] Amber Quiroz MD Med Refill 02/03/2025 Refill [facility] [address] [place], [place] [phone] Amber Quiroz MD Allergic rhinitis, unspecified seasonality, [...] Description 05/15/2025 11:00 AM EST Clinical Support [facility] [address] [place] [address] Rachelle Lucero, RN [address] [place] [address] 05/26/2025 10:00 AM EST Office Visit [facility] [address] [place] [address] Amber Quiroz MD [address] [place] [address] Health Maintenance Due Date Last Done Comments [...] WO CONTRAST Routine 05/01/2025 1:50 PM EDT COMPREHENSIVE METABOLIC PANEL Routine 04/29/2025 12:14 PM EDT URINALYSIS, COMPLETE, WITH REFLEX TO CULTURE Routine 04/29/2025 11:15 AM EDT CBC WITH AUTO DIFFERENTIAL Routine 04/29/2025 11:05 AM EDT CULTURE, URINE, ROUTINE Routine 04/29/2025 12:[address] ABDOMEN PELVIS W CONTRAST [...] Recently Relevant to Health Maintenance Results * CTA Abdomen w/ and w/o Contrast (05/01/2025 1:50 PM EDT) Anatomical Region Laterality Modality Body, Abdomen Computed Tomogra phy 05/01/2025 1:50 PM EDT Narrative 05/01/2025 2:17 PM EDT [address] [address] [address] Scan Report Signed Patient: John Marquez MR#: [id number] 760 : 1965 Acct:[id number] Age/Sex: 59 / F ADM Date: 05/01/25 Loc: HO.ED Attending Dr: Ordering Physician: Jeovany Cunningham MD Date of Service: 05/01/25 Procedure(s): CT angio abdomen Accession Number(s): [id number] cc: Jeovany Cunningham MD; Amber Quiroz MD Report Number: [id number]: Total DLP = 197.00 mGy-cm Reason for [...] 05/01/25 1414 DD/ 1350 TD/TT: 05/01/25 1405 Sheet Taker: Procedure Note Donotuseinterpreter, Image - 05/01/[address] [address] [address] Scan Report Signed Patient: Heidi Marquez#: [id number] 760 : 1965Acct:[id number] Age/Sex: 59 / FADM Date: 05/01/25 Loc: HO.ED Attending Dr: Ordering Physician: Jeovany Cunningham MD Date of Service: 05/01/25 Procedure(s): CT angio abdomen Accession Number(s): [id number] cc: Jeovany Cunningham MD; Amber Quiroz MD Report Number: [id number]: Total DLP = 197.00 mGy-cm Reason for [...] 05/01/25 1414 DD/ 1350 TD/TT: 05/01/25 1405 Sheet Taker: [facility] External Provider IMG CT PROCEDURES Final Result * (ABNORMAL) Comprehensive Metabolic Panel (04/29/2025 12:14 PM EDT) Only the most recent of4 resultswithin the time period is included. Sodium 144 135 - 145 mmol/L [facility] Potassium 3.3 3.3 - 5.1 mmol/L [facility] Chloride 111(H) 96 - 108 mmol/L [facility] Carbon Dioxide 26 22 - 29 mmol/L [facility] Anion Gap 10(L) 12 - 20 [facility] Urea Nitrogen (BUN) 14 9 - 16 mg/dL [facility] Creatinine, Serum 0.61 0.5 - 1.4 mg/dL [facility] Creatinine Clr Calc Pharmacy 84.5 [facility] Comment:Provided height and weight: 154.94 cm,64.8 kg.eGFR (calculated from the MDRD study equation) and eCrCl(calculated from the Cockcroft-Gault equation) are based ondifferent parameters and may not yield comparable results.If eCrCl result is absurd, please check patient'sheight/weight. Estimated Glomerular Filt Rate >60 [facility] Comment:Chronic Kidney Disea se: Estimated GFR < 60 mL/min/1.13g0Kpjuey Kidney Disease: Estimated GFR < 15 mL/min/1.73m2 Glucose 92 60 - 115 mg/dL [facility] Calcium 8.9 8.4 - 10.2 mg/dL [facility] Bilirubin, Total 0.5 0.0 - 1.0 mg/dL [facility] Aspartate Amino Transferase 22 5 - 31 U/L [facility] Alanine Aminotransferase 13 0 - 31 U/L [facility] Total Protein 7.1 6.5 - 8.0 g/dL [facility] Albumin Level 4.4 3.5 - 5.0 g/dL [facility] Alkaline Phosphatase 110 39 - 117 U/L [facility] 04/29/2025 12:1 4 PM EDT 04/29/2025 12:17 PM EDT us Generic External Data Provider LAB BLOOD ORDERAB LES Final Result [facility] [address] [place] [address] [phone] * (ABNORMAL) Urinalysis, Complete, with Reflex to Culture (04/29/2025 11:15 AM EDT) Only the most recent of3 resultswithin the time period is included. Color Urine BROWN [facility] Appearance Urine Clear [facility] PH 6.0 5.0 - 9.0 [facility] Glucose Urine UA Negative Negative mg/dL [facility] Urine Blood Large (3+)(A) Negative [facility] Specific [place] - Urine <=1.005 1.005 - 1.025 [facility] Urine Protein 30 (1+)(A) Neg-Trace mg/dL [facility] Urine Ketones Negative Negative mg/dL [facility] Nitrite Urine Positive(A) Negative [facility] Leukocyte Esterase Urine Negative Negative [facility] RBC Urine 6-10(A) 0 - 2 /HPF [facility] Urine WBC 0-5 0 - 5 /HPF [facility] Urine Squamous Epithelial Cell 0-2 0 - 2 /HPF [facility] Urine Bacteria 1+ None Seen [facility] Hyaline Casts, Urine 0-2 0 - 2 /LPF [facility] 04/29/2025 11:1 5 AM EDT 04/29/2025 11:18 AM EDT Narrative [facility] - 04/29/2025 12:22 PM EDT Urine, Clean Catch us Generic External Data Provider LAB URINE ORDERAB LES Final Result [facility] [address] [place] [address] [phone] * (ABNORMAL) CBC auto differential (04/29/2025 11:05 AM EDT) Only the most recent of4 resultswithin the time period is included. White Blood Count 6.2 4.8 - 10.8 X10*3/uL [facility] Red Blood Count 4.50 4.20 - 5.50 X10*6/uL [facility] Hemoglobin 12.0 12.0 - 16.0 g/dl [facility] Hematocrit 37.2 37.0 - 47.0 % [facility] Mean Corpuscular Volume 82.7 80.0 - 98.0 fL [facility] Mean Corpuscular Hemoglobin 26.7(L) 27.0 - 33.0 pg [facility] Mean Corpuscular HGB Conc 32.3 31.0 - 35.0 g/dl [facility] Red Cell Distribution Width 15.6 11.0 - 16.0 % [facility] Platelet Count 321 160 - 400 X10*3/uL [facility] Mean Platelet Volume 9.3(L) 9.4 - 12.3 fL [facility] Neutrophils Percent Auto 68.1 45 - 73 % [facility] Imm Gran Pct Auto 0.2 0.0 - 0.4 % [facility] Lymphocytes Percent Auto 26.0 20 - 40 % [facility] Monocytes Percent Auto 4.8 2 - 11 % [facility] Eosinophils Percent Auto 0.6 0 - 4 % [facility] Basophils Percent Auto 0.3 0 - 2 % [facility] NRBC Pct Auto 0.0 0.0 - 0.2 /100WBC [facility] Neutrophils Absolute Auto 4.3 2.0 - 8.3 x10*3/uL [facility] Imm Gran Abs Auto 0.01 0.00 - 0.03 X10*3/uL [facility] Lymphocytes Absolute Auto 1.6 1.2 - 4.9 X10*3/uL [facility] Monocytes Absolute Auto 0.3 0.1 - 1.2 X10*3/uL [facility] Eosinophils Absolute Auto 0.0 0.0 - 0.4 X10*3/uL [facility] Basophils Absolute Auto 0.0 0.0 - 0.2 X10*3/uL [facility] NRBC Abs Auto 0.000 0.0 - 0.012 X10*3/uL [facility] 04/29/2025 11:0 5 AM EDT 04/29/2025 11:11 AM EDT Generic External Data Provider LAB BLOOD ORDERAB LES Final Result Performing Organization Address City/[facility]/ZIP Co de Phone Number [facility] [address] [place] [phone] * Culture, Urine, Routine (04/29/2025 12:00 AM EDT) Only the most recent of2 resultswithin the time period is included. Urine Urine specimen obtained by clean catch procedure / Unknown 04/29/2025 04/29/2025 Comment:CC Narrative [facility] - 04/30/2025 12:14 PM EDT Urine Culture No growth. Specimen Source: Urine clean catch Generic External Data Provider LAB MICROBIOLOGY - GENERAL ORDERABLES Final Result Performing Organization Address [facility]/ZIP Co de Phone Number [facility] [address] [place] [phone] * CT Abdomen Pelvis w/ Contrast (04/19/2025 8:04 AM EDT) Anatomical Region Laterality Modality Body, Pelvis, Abdomen Computed T omography 04/19/2025 8:04 AM EDT Narrative 04/19/2025 8:05 AM EDT [place] [address] [address] Scan Report Signed Patient: John Marquez MR#: [id number] 760 : 1965 Acct:[id number] Age/Sex: 59 / F ADM Date: 04/19/25 Loc: HO.ED Attending Dr: Ordering Physician: Eliezer Steen PA-C Date of Service: 04/19/25 Procedure(s): CT abdomen pelvis w IV con Accession Number(s): [id number] cc: Eliezer Steen PA-C; Name,Mike GARCIA Report Number: [id number]: Total DLP = 0.00 mGy-cm Reason for [...] renal hypodensity redemonstrated. Mild left renal scarring. Cqvo-km-iekojnqu colonic stool. No bowel obstruction. Atherosclerotic calcifications. [...] OV> 04/19/25 08 DD/ 3 TD/TT: 04/19/25803 Sheet Taker: Procedure Note Donotuseinterpreter, Image - 04/19/[address] [address] [address] Scan Report Signed Patient: Heidi Marquez#: [id number] 760 : 1965Acct:[id number] Age/Sex: 59 / FADM Date: 04/19/25 Loc: HO.ED Attending Dr: Ordering Physician: Eliezer Steen PA-C Date of Service: 04/19/25 Procedure(s): CT abdomen pelvis w IV con Accession Number(s): [id number] cc: Eliezer Steen PA-C; Name,Mike GARCIA Report Number: [id number]: Total DLP = 0.00 mGy-cm Reason for [...] renal hypodensity redemonstrated. Mild left renal scarring. Jamy-xk-hamvyusi colonic stool. No bowel obstruction. Atherosclerotic calcifications. [...] in OV> 04/19/25804 DD/ 3 TD/TT: 04/19/25803 Sheet Taker: [facility] External Provider IMG CT PROCEDURES Final Result * Lipase (04/19/2025 3:19 AM EDT) Lipase 35 8 - 78 U/L [facility] 04/19/2025 3:19 AM EDT 04/19/2025 3:22 AM EDT Generic External Data Provider LAB BLOOD ORDERAB LES Final Result Performing Organization Address City/State/[facility] Co de Phone Number [facility] [address] [place] [phone] * CT Abdomen Pelvis w/o Contrast (03/08/2025 1:06 PM EDT) Anatomical Region Laterality Modality Body, Pelvis, Abdomen Computed T omography 03/08/2025 1:06 PM EDT Narrative 03/08/2025 1:08 PM EDT [place] [address] CT Scan Report Signed Patient: John Marquez MR#: [id number] 760 : 1965 Acct:[id number] Age/Sex: 59 / F ADM Date: 03/08/25 Loc: .ED Attending Dr: Ordering Physician: Kaia Hamilton Date of Service: 03/08/25 Procedure(s): CT abdomen pelvis wo IV con Accession Number(s): [id number] cc: Kaia Hamilton; Amber Quiroz MD Report Number: [id number]: Total DLP = 449.00 mGy-cm Reason for Exam: abbd pain, flank pain CLINICAL HISTORY: abbd pain, flank pain CT abdomen and pelvis without contrast Comparison: CT/OK/SR - CT ABDOMEN PELVIS WO IV CON [...] 03/08/25 1307 DD/ 1306 TD/TT: 03/08/25 1306 Sheet Taker: Procedure Note Donotuseinterpreter, Image - 03/08/[address] [place] [address] [address] Scan Report Signed Patient: Heidi Marquez#: [id number] 760 : 1965Acct:[id number] Age/Sex: 59 / FADM Date: 03/08/25 Loc: .ED Attending Dr: Ordering Physician: Kaia Hamilton Date of Service: 03/08/25 Procedure(s): CT abdomen pelvis wo IV con Accession Number(s): [id number] cc: Kaia Hamilton; Amber Quiroz MD Report Number: [id number]: Total DLP = 449.00 mGy-cm Reason for Exam: abbd pain, flank pain CLINICAL HISTORY: abbd pain, flank pain CT abdomen and pelvis without contrast Comparison: CT/OK/SR - CT ABDOMEN PELVIS WO IV CON [...] 03/08/25 1307 DD/ 1306 TD/TT: 03/08/25 1306 Sheet Taker: [facility] External Provider IMG CT PROCEDURES Final Result * (ABNORMAL) Lipid Panel with Reflex to Direct LDL (09/03/2024 4:26 PM EST) Triglycerides 112 <150 mg/dL [facility] Comment:Desirable Triglyceri de: less than 150 mg/dLBorderline High Triglyceride 150-199 mg/dLHigh Triglyceride: 200-499 mg/dLVery High Triglyceride: greater than or equal to 5OO mg/dL Cholesterol 183 <200 mg/dL [facility] Comment:Desirable Cholestero l: less than 200 mg/dLBorderline High Cholesterol: 200-239 mg/dLHigh Cholesterol: greater than 239 mg/dL LDL Cholesterol Calculated 112(H) <100 mg/dL [facility] Comment:Desirable LDL: less than 100 mg/dLNear Optimal/Above Optimal LDL: 110- 129 mg/dLBorderline High LDL: 130-159 mg/dLHigh LDL: 160-189 mg/dLVery High LDL: greater than or equal to 190 mg/dL HDL Cholesterol 49 >40 mg/dL [facility] Comment:Desirable HDL: great er than 40 mg/dL Note: This HDL assay may give artificially low results in patients with liver disease. Blood 09/03/2024 4:26 PM EST 09/03/2024 6:14 PM EST us Amber Quiroz MD LAB BLOOD ORDERABLES Final Resul t [facility] [address] [place] [phone] * (ABNORMAL) THINPREP TIS PAP AND [...] with computer assisted technology. [facility] Supplier Quality Engineering Manager: SEE COMMENT [facility] Comment: BJ, CT(ASCP) CT screening location: [place] [address] General Categorization: EPITHELIAL CELL ABNORMALITY(A ) [facility] HPV nRNA E6/E7 Not Detected Not Detected [facility] Comment: Methodology: Broadband Engineer-Mediated Amplification This assay detects E6/E7 viral messenger RNA (mRNA) from 14 high-risk HPV types (16,18,31,33,35,39,45,51,52,56,58,59,66,68). The analytical performance characteristics of this assay have been determined by [employer]. The modifications have not been cleared or approved by the FDA. This assay has been validated pursuant to the CLIA regulations and is used for clinical purposes. For additional information, please refer to http://education.Dailyevent/faq/IWB253j9 (This link if provided for information/ educational [...] Clinical Pathology (electronic signature) Consulting Pathologist [facility] [phone] Prev. BX: NONE GIVEN [facility] Prev. PAP: NONE GIVEN [facility] SOURCE: None given [facility] Statement Of Adequacy: [facility] Comment: Satisfactory for evaluation. Endocervical/transformation zone component present. 07/30/2021 10:1 7 AM EST us Saleem Maier MD LAB PATHOLOGY ORDERABLES Final R esult [facility] [address] [place] [address], from Last 3 Months or Most Recently Relevant to Health Maintenance Insurance [facility] C3 DENTAL-[facility] MEDICAID STAND ADULT Care Teams Employee Communications Manager Relationship Specialty Start Date End Date Amber Quiroz MD [address] [place] [phone] PCP - General Family Medicine 07/03/18 Fred Parker, RN [address] [place] [phone] Registered Nurse Family Medicine 04/16/25 Sherry Herbert 04/16/25
--- OUTSIDE RECORDS SUMMARY | 2025-05-01 15:26 | XMS_ITS | Encounter Summary ---
Author Organization [employer] Address [address] [facility] [address] [place] [address] Care Team Providers Care Lower In Supervisor Name Role Phone Amber Quiroz MD Primary Care Provider [phone] Fred Parker RN Unavailable [phone] Sherry Herbert Unavailable Encounter Details Date Type Department Care Team (Late st Contact Info) Description 12/14/2024 Orders Only [facility] [address] [place], [place] [phone] Amber Quiroz MD [address] [place] [address] Hyperglycemia (Primary Dx); Flank pain; [...] Description 05/15/2025 11:00 AM EST Clinical Support [facility] [address] [place] [address] Rachelle Lucero, DOROTA [address] [place] [address] 05/26/2025 10:00 AM EST Office Visit [facility] [address] [place] [address] Amber Quiroz MD [address] [place] [address] Scheduled Orders Name Type Priority Associated Diagnoses [...] documented as of this encounter Care Teams Lower In Supervisor Relationship Specialty Start Date End Date Amber Quiroz MD [address] [place] [address] PCP - General Family Medicine 07/03/18 Fred Parker, DOROTA [address] [place] [phone] Registered Nurse Family Medicine 04/16/25 Sherry Herbert 04/16/25 documented as of this encounter
--- OUTSIDE RECORDS SUMMARY | 2025-05-01 15:26 | XMS_ITS | Encounter Summary ---
Author Organization [employer] Address [address] [place] [address] [address] [place] [address] Care Team Providers Care Cardiology Teacher Name Role Phone Amber Quiroz MD Primary Care Provider [phone] Fred Parker RN Unavailable [phone] Sherry Herbert Unavailable Encounter Details Date Type Department Care Team (Late st Contact Info) Description 12/12/2022 Orders Only [facility] [address] [place] [phone] Anabell Martinez LPN Social History Tobacco Use [...] Description 05/15/2025 11:00 AM EST Clinical Support [facility] [address] [place] [address] Rachelle Lucero, DOROTA [address] [place] [address] 05/26/2025 10:00 AM EST Office Visit [facility] [address] [place], [place] [phone] Amber Quiroz MD [address] [place] [address] documented as of this encounter Visit Diagnoses Not on filedocumented in this encounter Care Teams Cardiology Teacher Relationship Specialty Start Date End Date Amber Quiroz MD [address] [place] [address] PCP - General Family Medicine 07/03/18 Fred Parker RN [address] [place] [phone] Registered Nurse Family Medicine 04/16/25 Sherry Herbert 04/16/25 documented as of this encounter
--- OUTSIDE RECORDS SUMMARY | 2025-05-01 15:26 | XMS_ITS | Encounter Summary ---
Author Organization [employer] Address 75 [facility] 7t [place] [address] Care Team Providers Care Energy And Conservation Technician Name Role Phone Amber Quiroz MD Primary Care Provider [phone] Fred Parker RN Unavailable [phone] Sherry Herbert Unavailable Reason for Visit * Reason Comments Med Refill Encounter Details Date Type Department Care Team (Late st Contact Info) Description 11/12/2024 Refill [facility] MEDICINE [address] [place], [place] [phone] Amber Quiroz MD [address] [place], [place] [phone] Moderate persistent asthma without complication Social History [...] Description 05/15/2025 11:00 AM EST Clinical Support [facility] CHC MED & PEDS 505 [place] [address] Rachelle Lucero RN 505 [place] [address] 05/26/2025 10:00 AM EST Office Visit [facility] MEDICINE [address] [place] [address] Amber Quiroz MD [address] [place] [address] documented as of this encounter Visit Diagnoses Diagnosis Moderate persistent asthma without complication documented in this encounter Care Teams Energy And Conservation Technician Relationship Specialty Start Date End Date Amber Quiroz MD [address] [place] [address] PCP - General Family Medicine 07/03/18 Fred Parker, RN [address] [place] [address] Registered Nurse Family Medicine 04/16/25 Sherry Herbert 04/16/25 documented as of this encounter
--- OUTSIDE RECORDS SUMMARY | 2025-05-01 15:26 | XMS_ITS | Encounter Summary ---
Author Organization [employer] Address 75 [facility] 7t [place] [address] Care Team Providers Care Steward/Stewardess Name Role Phone Amber Quiroz MD Primary Care Provider [phone] Fred Parker RN Unavailable [phone] Sherry Herbert Unavailable Encounter Details Date [...] Upcoming Encounters Date Type Department Care Team ([facility] st Contact Info) Description 05/15/2025 11:00 AM EST Clinical Support [facility] CHC MED & PEDS 505 [place] [address] Rachelle Lucero, DOROTA 505 [place] [address] 05/26/2025 10:00 AM EST Office Visit [facility] MEDICINE [address] [place] [address] Amber Quiroz MD [address] [place] [address] documented as of this encounter Procedures Procedure Name Priority Date/Time Associated Diagnosis Comments COMPREHENSIVE METABOLIC PANEL Routine 04/29/2025 12:14 PM EDT URINALYSIS, COMPLETE, WITH REFLEX TO CULTURE Routine 04/29/2025 11:15 AM EDT CBC WITH AUTO DIFFERENTIAL Routine 04/29/2025 11:05 AM EDT CULTURE, URINE, ROUTINE Routine 04/29/2025 12:00 AM EDT documented in this encounter Results * (ABNORMAL) Comprehensive Metabolic Panel (04/29/2025 12:14 PM EDT) Sodium 144 135 - 145 mmol/L [facility] Potassium 3.3 3.3 - 5.1 mmol/L [facility] Chloride 111(H) 96 - 108 mmol/L [facility] Carbon Dioxide 26 22 - 29 mmol/L [facility] Anion Gap 10(L) 12 - 20 [facility] Urea Nitrogen (BUN) 14 9 - 16 mg/dL [facility] Creatinine, Serum 0.61 0.5 - 1.4 mg/dL [facility] Creatinine Clr Calc Pharmacy 84.5 [facility] Comment:Provided height and weight: 154.94 cm,64.8 kg.eGFR (calculated from the MDRD study equation) and eCrCl(calculated from the Cockcroft-Gault equation) are based ondifferent parameters and may not yield comparable results.If eCrCl result is absurd, please check patient'sheight/weight. Estimated Glomerular Filt Rate >60 [facility] Comment:Chronic Kidney Disea se: Estimated GFR < 60 mL/min/1.63q1Gomald Kidney Disease: Estimated GFR < 15 mL/min/1.73m2 Glucose 92 60 - 115 mg/dL [facility] Calcium 8.9 8.4 - 10.2 mg/dL [facility] Bilirubin, Total 0.5 0.0 - 1.0 mg/dL [facility] Aspartate Amino Transferase 22 5 - 31 U/L [facility] Alanine Aminotransferase 13 0 - 31 U/L [facility] Total Protein 7.1 6.5 - 8.0 g/dL [facility] Albumin Level 4.4 3.5 - 5.0 g/dL [facility] Alkaline Phosphatase 110 39 - 117 U/L [facility] 04/29/2025 12:1 4 PM EDT 04/29/2025 12:17 PM EDT us Generic External Data Provider LAB BLOOD ORDERAB LES Final Result [facility] [address] [place] [address] [phone] * (ABNORMAL) Urinalysis, Complete, with Reflex to Culture (04/29/2025 11:15 AM EDT) Color Urine [facility] Appearance Urine Clear [facility] PH 6.0 5.0 - 9.0 [facility] Glucose Urine UA Negative Negative mg/dL [facility] Urine Blood Large (3+)(A) Negative [facility] Specific [place] - Urine <=1.005 1.005 - 1.025 [facility] Urine Protein 30 (1+)(A) Neg-Trace mg/dL [facility] Urine Ketones Negative Negative mg/dL [facility] Nitrite Urine Positive(A) Negative [facility] Leukocyte Esterase Urine Negative Negative [facility] RBC Urine 6-10(A) 0 - 2 /HPF [facility] Urine WBC 0-5 0 - 5 /HPF [facility] Urine Squamous Epithelial Cell 0-2 0 - 2 /HPF [facility] Urine Bacteria 1+ None Seen [facility] Hyaline Casts, Urine 0-2 0 - 2 /LPF [facility] 04/29/2025 11:1 5 AM EDT 04/29/2025 11:18 AM EDT Narrative [facility] - 04/29/2025 12:22 PM EDT Urine, Clean Catch us Generic External Data Provider LAB URINE ORDERAB LES Final Result Performing Organization Address City/State/[facility] Co de Phone Number [facility] [address] [place] [phone] * (ABNORMAL) CBC auto differential (04/29/2025 11:05 AM EDT) White Blood Count 6.2 4.8 - 10.8 X10*3/uL [facility] Red Blood Count 4.50 4.20 - 5.50 X10*6/uL [facility] Hemoglobin 12.0 12.0 - 16.0 g/dl [facility] Hematocrit 37.2 37.0 - 47.0 % [facility] Mean Corpuscular Volume 82.7 80.0 - 98.0 fL [facility] Mean Corpuscular Hemoglobin 26.7(L) 27.0 - 33.0 pg [facility] Mean Corpuscular HGB Conc 32.3 31.0 - 35.0 g/dl [facility] Red Cell Distribution Width 15.6 11.0 - 16.0 % [facility] Platelet Count 321 160 - 400 X10*3/uL [facility] Mean Platelet Volume 9.3(L) 9.4 - 12.3 fL [facility] Neutrophils Percent Auto 68.1 45 - 73 % [facility] Imm Gran Pct Auto 0.2 0.0 - 0.4 % [facility] Lymphocytes Percent Auto 26.0 20 - 40 % [facility] Monocytes Percent Auto 4.8 2 - 11 % [facility] Eosinophils Percent Auto 0.6 0 - 4 % [facility] Basophils Percent Auto 0.3 0 - 2 % [facility] NRBC Pct Auto 0.0 0.0 - 0.2 /100WBC [facility] Neutrophils Absolute Auto 4.3 2.0 - 8.3 x10*3/uL [facility] Imm Gran Abs Auto 0.01 0.00 - 0.03 X10*3/uL [facility] Lymphocytes Absolute Auto 1.6 1.2 - 4.9 X10*3/uL [facility] Monocytes Absolute Auto 0.3 0.1 - 1.2 X10*3/uL [facility] Eosinophils Absolute Auto 0.0 0.0 - 0.4 X10*3/uL [facility] Basophils Absolute Auto 0.0 0.0 - 0.2 X10*3/uL [facility] NRBC Abs Auto 0.000 0.0 - 0.012 X10*3/uL [facility] 04/29/2025 11:0 5 AM EDT 04/29/2025 11:11 AM EDT us Generic External Data Provider LAB BLOOD ORDERAB LES Final Result Performing Organization Address City/State/[facility] Co de Phone Number [facility] [address] [place] [address] [phone] * Culture, Urine, Routine (04/29/2025 12:00 AM EDT) Urine Urine specimen obtained by clean catch procedure / Unknown 04/29/2025 04/29/2025 Comment:UACC Narrative [facility] - 04/30/2025 12:14 PM EDT Urine Culture No growth. Specimen Source: Urine clean catch us Generic External Data Provider LAB MICROBIOLOGY - GENERAL ORDERABLES Final Result Performing Organization Address [facility] Co de Phone Number [facility] [address] [place] [address] [phone] documented in this encounter Visit Diagnoses Not on filedocumented in this encounter Additional Health Concerns Assessment Noted Time PHQ-9 Depression Total Score: 9 12/03/19 25 4:14 PM EDT documented as of this encounter Care Teams Steward/Stewardess Relationship Specialty Start Date End Date Amber Quiroz MD [address] [place] [address] PCP - General Family Medicine 07/03/18 Fred Parker, RN [address] [place] [address] Registered Nurse Family Medicine 04/16/25 Sherry Herbert 04/16/25 documented as of this encounter
--- OUTSIDE RECORDS SUMMARY | 2025-05-01 15:26 | XMS_ITS | Encounter Summary ---
Author Organization [employer] Address 75 [facility] 7t [place] [address] Care Team Providers Care Machine Operator Packaging Name Role Phone Amber Quiroz MD Primary Care Provider [phone] Fred Parker RN Unavailable [phone] Sherry Herbert Unavailable Reason for Visit * Reason Onset Date Comments Med Refill 01/10/2024 Encounter Details Date Type Department Care Team (Late st Contact Info) Description 01/10/[address] [facility] MEDICINE [address] [place] [address] Amber Quiroz MD [address] [place], [place] [phone] Med Refill Social History Tobacco Use Types [...] immediate release tablet To be sent to: [facility] - [place], [place] - [address] [place] [address] documented in this encounter Plan of Treatment Upcoming Encounters Date Type Department Care Team (Late st Contact Info) Description 05/15/2025 11:00 AM EST Clinical Support [facility] CHC MED & PEDS [address] [place] [address] Rachelle Lucero RN [address] [place] [address] 05/26/2025 10:00 AM EST Office Visit [facility] MEDICINE [address] [place] [address] Amber Quiroz MD [address] [place] [address] documented as of this encounter Visit Diagnoses Not on filedocumented in this encounter Care Teams Machine Operator Packaging Relationship Specialty Start Date End Date Amber Quiroz MD [address] [place] [place] [address] PCP - General Family Medicine 07/03/18 Fred Parker, DOROTA [address] [place] [address] Registered Nurse Family Medicine 04/16/25 Sherry Herbert 04/16/25 documented as of this encounter
--- OUTSIDE RECORDS SUMMARY | 2025-05-01 15:26 | XMS_ITS | Encounter Summary ---
Author Organization [employer] Address 75 [facility] 7t [place] [address] Care Team Providers Care Dimension Specification Inspector Name Role Phone Amber Quiroz MD Primary Care Provider [phone] Fred Parker RN Unavailable [phone] Sherry Herbert Unavailable Reason for Visit * Reason Onset Date Comments Nurse Triage 01/11/2024 Encounter Details Date Type Department Care Team (Late st Contact Info) Description 01/11/2024 Telephone [facility] MEDICINE [address] [place] [address] Amber Quiroz MD [address] [place], [place] [phone] Nurse Triage Social History Tobacco Use Types [...] [facility]. * Telephone Encounter - Lacy Sahni LPN - 01/11/2024 3:31 PM EDT Triage in process. Patient requesting pain medication for kidney stone pain in [facility] 01/07/24-01/08/24. Patient not seeing any stones [...] Override Notes: Seen and treated at [facility] known kidney stones wants something for [...] Description 05/15/2025 11:00 AM EST Clinical Support [facility] MED & PEDS [address] [place] [address] Rachelle Lucero RN [address] [place] [address] 05/26/2025 10:00 AM EST Office Visit [facility] MEDICINE [address] [place] [address] Amber Quiroz MD [address] [place] [address] documented as of this encounter Visit Diagnoses Not on filedocumented in this encounter Care Teams Dimension Specification Inspector Relationship Specialty Start Date End Date Amber Quiroz MD [address] [place] [address] PCP - General Family Medicine 07/03/18 Fred Parker, RN [address] [place] [address] Registered Nurse Family Medicine 04/16/25 Sherry Herbert 04/16/25 documented as of this encounter
--- OUTSIDE RECORDS SUMMARY | 2025-05-01 15:26 | XMS_ITS | Encounter Summary ---
Author Organization [employer] Address 75 [facility] 7t [place] [address] Care Team Providers Care Email Marketing Coordinator Name Role Phone Amber Quiroz MD Primary Care Provider [phone] Fred Parker RN Unavailable [phone] Sherry Herbert Unavailable Encounter Details Date Type Department Care Team ([facility] Contact Info) Description 04/30/2025 Telephone [facility] MED & PEDS [address] [place] [address] Rachelle Lucero, RN [address] [place] [address] Social History Tobacco Use Types Packs/Day Years [...] Telephone Encounter - Rachelle Lucero RN - 04/30/2025 8:01 AM EDT Please see message below. TC to pt, pt states she is home now, in a lot of pain. States received Morphine at the hospital. 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 documented in this encounter Plan of Treatment Upcoming Encounters Date Type Department Care Team (Late st Contact Info) Description 05/15/2025 11:00 AM EST Clinical Support [facility] MED & PEDS [address] [place] [address] Rachelle Lucero, DOROTA [address] [place] [address] 05/26/2025 10:00 AM EST Office Visit [facility] MEDICINE [address] [place] [address] Amber Quiroz MD [address] [place] [address] documented as of this encounter Visit Diagnoses Not on filedocumented in this encounter Additional Health Concerns Assessment Noted Time PHQ-9 Depression Total Score: 9 12/03/19 25 4:14 PM EDT documented as of this encounter Care Teams Email Marketing Coordinator Relationship Specialty Start Date End Date Amber Quiroz MD [address] [place] [address] PCP - General Family Medicine 07/03/18 Fred Parker, DOROTA [address] [place] [address] Registered Nurse Family Medicine 04/16/25 Sherry Herbert 04/16/25 documented as of this encounter
--- OUTSIDE RECORDS SUMMARY | 2025-05-01 15:26 | XMS_ITS | Encounter Summary ---
Author Organization [employer] Address 75 [facility] 7t [place] [address] Care Team Providers Care Cylinder Machine Operator Name Role Phone Amber Quiroz MD Primary Care Provider [phone] Fred Parker RN Unavailable [phone] Sherry Herbert Unavailable Reason for Visit * Reason Onset Date Comments Med Refill 06/21/2024 Encounter Details Date Type Department Care Team (Late st Contact Info) Description 06/21/2024 Telephone [facility] MEDICINE [address] [place] [address] Amber Quiroz MD [address] [place], [place] [phone] Med Refill Social History Tobacco Use Types [...] extra strength with no relief. Please advise. TAR HEATER OPERATOR checked 06/21/24. Last refill of Oxycodone 5mg 11/30/23 qty 12. * Telephone Encounter - Gemma Oliveira - 06/21/2024 10:12 AM EST TC from pt requesting medication refill. Medications needing refill : oxyCODONE (Oxy-IR) 5 MG immediate release capsule To be sent to: [facility] - [place] - [address] documented in this encounter Plan of Treatment Upcoming Encounters Date Type Department Care Team (Late st Contact Info) Description 05/15/2025 11:00 AM EST Clinical Support [facility] MED & PEDS [address] [place] [address] Rachelle Lucero, DOROTA [address] [place] [address] 05/26/2025 10:00 AM EST Office Visit [facility] MEDICINE [address] [place] [address] Amber Quiroz MD [address] [place] [address] documented as of this encounter Visit Diagnoses Not on filedocumented in this encounter Care Teams Cylinder Machine Operator Relationship Specialty Start Date End Date Amber Quiroz MD [address] [place] [address] PCP - General Family Medicine 07/03/18 Fred Parker, DOROTA 505 [place] [address] Registered Nurse Family Medicine 04/16/25 Sherry Herbert 04/16/25 documented as of this encounter
--- OUTSIDE RECORDS SUMMARY | 2025-05-01 15:26 | XMS_ITS | Encounter Summary ---
Author Organization [employer] Address 75 [facility] 7 [place] [address] Care Team Providers Care Stand In Name Role Phone Amber Quiroz MD Primary Care Provider Fred Parker RN Unavailable [phone] Sherry Herbert Unavailable Encounter Details Date Type Department Care Team (Late st Contact Info) Description 03/22/2023 Orders Only [facility] MEDICINE [address] [place], [place] [phone] Amber Quiroz MD [address] [place], [place] [phone] ASCUS of cervix with negative high risk [...] Description 05/15/2025 11:00 AM EST Clinical Support [facility] CHC MED & PEDS [address] [place], [place] [phone] Rachelle Lcuero, DOROTA [address] [place], [place] [phone] 05/26/2025 10:00 AM EST Office Visit [facility] MEDICINE [address] [place] [address] Amber Quiroz MD [address] [place] [phone] documented as of this encounter Visit Diagnoses Diagnosis ASCUS of cervix with negative high risk HPV- Primary History of cervical dysplasia Personal history of cervical dysplasia documented in this encounter Care Teams Stand In Relationship Specialty Start Date End Date Amber Quiroz MD [address] [place] [address] PCP - General Family Medicine 07/03/18 Fred Parker, RN [address] [place] [address] Registered Nurse Family Medicine 04/16/25 Sherry Herbert 04/16/25 documented as of this encounter
--- OUTSIDE RECORDS SUMMARY | 2025-05-01 15:26 | XMS_ITS | Encounter Summary ---
Author Organization [employer] Address 75 [facility] 7t [place] [address] Care Team Providers Care Chocolate Temperer Name Role Phone Amber Quiroz MD Primary Care Provider [phone] Fred Parker RN Unavailable [phone] Sherry Herbert Unavailable Reason for Visit * Reason Comments Med Refill Encounter Details Date Type Department Care Team (Late st Contact Info) Description 06/01/[address] [facility] MEDICINE [address] [place] [address] Amber Quiroz MD [address] [place], [place] [phone] Pain Social History Tobacco Use Types Packs/Day [...] 11:00 AM EST Clinical Support [facility] CHC MED & PEDS [address] [place] [address] Rachelle Lucero RN [address] [place] [address] 05/26/2025 10:00 AM EST Office Visit [facility] MEDICINE [address] [place] [address] Amber Quiroz MD [address] [place] [address] documented as of this encounter Visit Diagnoses Diagnosis Pain Generalized pain documented in this encounter Care Teams Chocolate Temperer Relationship Specialty Start Date End Date Amber Quiroz MD [address] [place] [address] PCP - General Family Medicine 07/03/18 Fred Parker, RN [address] [place] [address] Registered Nurse Family Medicine 04/16/25 Sherry Herbert 04/16/25 documented as of this encounter
--- NOTE | 2025-05-01 16:04 | PM.IMHP ---
History of Present Illness Date of Service: 05/01/25 Attending physician on admission: Jonas Shahid Chief Complaint: flank pain This is a 59-year-old female who presents to the emergency department with abdominal pain. Patient reports bilateral flank pain. She was initially seen in the emergency department on April 29, at that time she had a CT scan which showed a small number of tiny bilateral nonobstructive renal stones with prominence of the renal collecting system with no obstructing stones and no perinephric fat stranding. Her urinalysis positive and she was diagnosed with pyelonephritis, she was discharged home with oral antibiotics. Her urine culture failed to grow any bacteria. She returned to the emergency department today with ongoing bilateral flank pain as well as hematuria. She is afebrile with no leukocytosis. In the ED she had an abdominal CTA which was unremarkable. She required multiple doses of IV narcotics for adequate pain control and she will be admitted overnight for observation due to persistent pain. Review of Systems Review of Systems: Yes all other systems are reviewed and are negative Constitutional: Constitutional: Denies chills and Denies fever(s) Cardiovascular: Cardiovascular: Denies chest pain Gastrointestinal: Gastrointestinal: Reports abdominal pain [facility] Medical History Drug-seeking behavior delivery delivered HTN (hypertension) Anemia Hypercholesteremia DVT (deep venous thrombosis) Kidney stones Surgical History Total knee replacement status Social History Household Members: None Housing: Apartment Do you presently have visiting nurse or other home services: Yes ([facility]) Alcohol intake: never Patient Tobacco Use Status: Never used Tobacco Use of substances other than those prescribed or required for medical reasons: No Substance Use Type: Prescription Drugs Have you been hit, kicked, punched, or otherwise hurt by someone within the past year? If so, by whom?: No Do you feel safe in your current relationship?: No Is there a partner from a previous relationship who is making you feel unsafe now?: No Are you made to feel afraid or neglected: No Advance Directives: No Advance Directives Information Provided: Yes Do you have a plan to hurt others: No Plan Recently lost weight without trying: No Nutrition Risks: No Nutritional Risk Patient : No Meds Allergies Allergy/AdvReac Type Severity Reaction Status Date / Time aspirin (ASA) Allergy Intermediate RASH, Verified 05/01/25 12:13 nausea and vomiting ibuprofen (IBUPROFEN) Allergy Intermediate RASH Verified 05/01/25 12:13 nicotine Allergy Intermediate RASH FROM Verified 05/01/25 12:13 NICOTINE PATCH, nausea and vomiting ketorolac (From TORADOL) Allergy Mild RAPID HR Verified 05/01/25 12:13 AND HIVES haloperidol (From Haldol) Allergy Anaphylaxis Verified 05/01/25 12:13 metoclopramide (From Reglan) Allergy Unknown Verified 05/01/25 12:13 Home Medications ?Medication ?Instructions ?Recorded ?Confirmed ?Last Taken ?Type ascorbic acid (vitamin C) 250 mg 1 tab PO BID 11/26/20 05/01/25 04/30/25 History tablet loratadine 10 mg tablet 10 mg PO DAILY 11/26/20 05/01/25 04/30/25 History albuterol sulfate 90 mcg/actuation 2 puff inhalation Q4-6H PRN dyspnea 05/01/25 05/01/25 Unknown History aerosol inhaler (Ventolin HFA) amlodipine 10 mg tablet 10 mg PO DAILY 05/01/25 05/01/25 04/30/25 History atorvastatin 10 mg tablet 10 mg PO DAILY 05/01/25 05/01/25 04/30/25 History clonazepam 0.5 mg tablet 0.5 mg PO BID PRN anxiety attack 05/01/25 05/01/25 Unknown History fluoxetine 20 mg capsule 60 mg PO DAILY 05/01/25 05/01/25 04/30/25 History gabapentin 300 mg capsule 300 mg PO TID 05/01/25 05/01/25 04/30/25 History mirtazapine 45 mg tablet 45 mg PO BEDTIME 05/01/25 05/01/25 04/30/25 History prazosin 2 mg capsule 2 mg PO BEDTIME 05/01/25 05/01/25 04/30/25 History quetiapine 200 mg tablet 200 mg PO BEDTIME 05/01/25 05/01/25 04/30/25 History zolpidem 10 mg tablet 10 mg PO BEDTIME PRN insomnia 05/01/25 05/01/25 Unknown History Physical Exam Vital Signs and Narrative: Vital Signs: Last Vital Signs Temp 98.3 F 05/01/25 14:16 Pulse 63 05/01/25 14:16 Resp 14 05/01/25 14:16 BP 148/82 H 05/01/25 14:16 Pulse Ox 95 05/01/25 14:16 O2 Del Method Room Air 05/01/25 14:16 BMI result Body Mass Index 26.9 Const: General: cooperative, alert and awake Nutritional Appearance: average body habitus Orientation/consciousness: patient oriented x3 Resp: Effort & Inspection: normal respiratory effort, able to speak in complete sentences, no respiratory distress and no use of accessory muscles Cardio: Rate: regular rate GI: Inspection: No distended Palpation (GI): Soft to palpation and nontender : Other: reported b/l CVAT Neuro: General: patient oriented x3, moves all extremities and CN's II-XI intact bilaterally Results Labs 05/01/25 12:25 05/01/25 12:25 Labs: Laboratory Results - last 24 hr 05/01/25 05/01/25 12:25 12:34 MCV 85.3 MCH 26.8 L MCHC 31.4 RDW 15.1 Plt Count 277 MPV 9.2 L Immature Gran % (Auto) 0.3 Neut % (Auto) 68.2 Lymph % (Auto) 23.4 [place] % (Auto) 6.5 Eos % (Auto) 1.5 Baso % (Auto) 0.1 Lymph # (Auto) 1.8 [place] # (Auto) 0.5 Eos # (Auto) 0.1 Baso # (Auto) 0.0 Abs Immat Gran (auto) 0.02 Absolute Neuts (auto) 5.1 Absolute Nucleated RBC 0.000 Nucleated RBC % (auto) 0.0 Anion Gap 11 L Estim Creat Clear Calc 83.0 Estimated GFR > 60 Random Glucose 105 Lactic Acid 1.0 Calcium 8.7 Procalcitonin 0.02 Urine Color Red A Urine Appearance Cloudy Urine pH 6.5 Ur Specific [place] <= 1.005 Urine Protein 300 (3+) H Urine Glucose (UA) Negative Urine Ketones Negative Urine Blood Large (3+) H Urine Nitrite Not Reportable Ur Leukocyte Esterase Not Reportable Urine RBC 3-5 H Urine WBC 0-5 Ur Squamous Epith Cells 0-2 Urine Bacteria None Seen Hyaline Casts 0-2 Imaging Radiologist's Impressions: Impressions Abdomen CTA 05/01/25 13:50 IMPRESSION: 1. Unremarkable CT angiogram of the abdomen. 2. 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 Electronically signed by: Misha Curtis MD 05/01/2025 02:14 PM EDT RP Assessment and Plan (1) Acute flank pain: Status: Acute Plan This is a 59-year-old female with history of kidney stones recently seen in the emergency department on April 29 and diagnosed to have pyelonephritis who returns with ongoing pain and now with hematuria Flank pain with hematuria Recent urine culture negative Hematuria possibly due to kidney stones, nonobstructive Continue oral antibiotics IV fluid, pain control if no improvement can consider urology consult Med reconciliation pending at the time of admission dvt ppx - avoid chemoprophylaxis due to hematuria; mechanical devices. Quality Stroke Does the patient have a stroke diagnosis?: No VTE Prior VTE?: No VTE Risk Level:: Medical - moderate - high VTE Device Contraindication: N/A - Device Ordered VTE Drug Contraindication: Treatment Not Indicated
--- NOTE | 2025-05-01 17:14 | PHA.MEDREC ---
Addendum entered by Sridhar Wyman RPh 05/01/25 17:58: Reviewed by [facility] Original Note: Pharmacy Consult ? Medication Reconciliation Pharmacy has completed the medication reconciliation. Patient was able to name all of her medications. Patient states she is no longer taking Acetaminophen 1,000mg, Clonidine 0.1 mg, Vitamin B-12, Cyclobenzaprine 10 mg, Dicyclomine 10 mg, Colace 100 mg, Flomax 0.4 mg, and Tramadol 50 mg. Patient confirmed Gabapentin 300 mg TID NOT 600 mg TID. Patient last had her medications last night.
[2025-05-01 17:19] VITALS: BMI 28.8
[2025-05-01 18:03] VITALS: BP 143/70; PULSE 66; RESP 18; TEMP 36.6; O2SAT 93
[2025-05-01] MEDS: Lactated Ringers 1,000 ML 100 ML IVCONT (18:12)
[2025-05-01 20:00] VITALS: BP 154/73; PULSE 76; RESP 18; TEMP 36.7; O2SAT 93
[2025-05-02 03:15] VITALS: BP 132/64; PULSE 67; RESP 18; TEMP 36.6; O2SAT 97
[2025-05-02] MEDS: Lactated Ringers 1,000 ML 100 ML IVCONT (03:19)
[2025-05-02 04:00] VITALS: RESP 18
[2025-05-02 06:50] VITALS: BP 121/60; PULSE 90; RESP 17; TEMP 36.6; O2SAT 93
--- NOTE | 2025-05-02 07:28 | HO.PM.IMPN ---
Subjective Subjective Date of Service: 05/02/25 Interval History: Hematuria/flank pain Review of Systems Review of Systems: Yes all other systems are reviewed and are negative Physical Exam Exam: Exam: Appearance: Alert.? Oriented X3.? cvs: rrr, [id number] , no murmur res: clear to auscultation ,no rhonchii or wheezing abd: no rebound or guarding ,nt, bs present. ext pulses present , no cyanosis . neuro: axo3 , nonfocal. Vital Signs: Vital Signs: Last Vital Signs Temp 97.8 F 05/02/25 06:50 Pulse 90 05/02/25 06:50 Resp 17 05/02/25 06:50 BP 121/60 05/02/25 06:50 Pulse Ox 93 05/02/25 06:50 O2 Del Method Room Air 05/02/25 06:50 BMI result Body Mass Index 28.8 Objective Data Active Medications Acetaminophen (Acetaminophen 325 Mg Tablet) 650 mg PO Q6H PRN PRN Reason: Pain, Mild 1-3,fever,headache Albuterol Sulfate (Albuterol Sulfate 90 Mcg 8 Gm Inhaler) 2 puff INHALE Q4H PRN PRN Reason: Dyspnea Amlodipine Besylate (Amlodipine Besylate 10 Mg Tablet) 10 mg PO DAILY [facility]; Protocol Ascorbic Acid (Ascorbic Acid 250 Mg Tablet) 250 mg PO BID [facility] Last Admin: 05/01/25 20:23 Dose: 250 mg Documented By: ELSA Atorvastatin Calcium (Atorvastatin Calcium 10 Mg Tablet) 10 mg PO DAILY [facility] Calcium Carbonate (Calcium Carbonate 750 Mg Tab.Chew) 750 mg PO Q4H PRN PRN Reason: Heartburn Clonazepam (Clonazepam 0.5 Mg Tablet) 0.5 mg PO BID PRN PRN Reason: anxiety attack Fluoxetine HCl (Fluoxetine Hcl 20 Mg Capsule) 60 mg PO DAILY [facility] Gabapentin (Gabapentin 300 Mg Capsule) 300 mg PO TID [facility] Last Admin: 05/01/25 20:23 Dose: 300 mg Documented By: ELSA Hydromorphone HCl (Hydromorphone Hcl 1 Mg/Ml Syringe) 1 mg IVPUSH Q4H PRN; Protocol PRN Reason: Pain, Severe (Pain Scale 7-10) Last Admin: 05/02/25 03:18 Dose: 1 mg Documented By: ELSA Lactated Ringer's (Lr) 1,000 mls @ 100 mls/hr IVCONT .Q10H [facility] Last Admin: 05/02/25 03:19 Dose: 100 mls/hr Documented By: ELSA Loratadine (Loratadine 10 Mg Tablet) 10 mg PO DAILY [facility] Magnesium Hydroxide (Milk Of Magnesia 30 Ml Oral.Susp) 30 ml PO DAILY PRN PRN Reason: Constipation Mirtazapine (Mirtazapine 15 Mg Tablet) 45 mg PO BEDTIME [facility] Last Admin: 05/01/25 20:23 Dose: 45 mg Documented By: ELSA Prazosin HCl (Prazosin Hcl 1 Mg Capsule) 2 mg PO BEDTIME [facility]; Protocol Last Admin: 05/01/25 20:22 Dose: 2 mg Documented By: ELSA Quetiapine Fumarate (Quetiapine Fumarate 200 Mg Tablet) 200 mg PO BEDTIME [facility] Last Admin: 05/01/25 20:23 Dose: 200 mg Documented By: ELSA Sodium Chloride (0.9 % Sodium Chloride Flush 3 Ml Syringe) 3 ml IVFLUSH QSHIFT [facility] Last Admin: 05/02/25 00:47 Dose: Not Given Documented By: ELSA Non-Admin Reason: IV Running Zolpidem Tartrate (Zolpidem Tartrate 5 Mg Tablet) 10 mg PO BEDTIME PRN PRN Reason: Insomnia Labs 05/01/25 12:25 05/01/25 12:25 Labs: Laboratory Results - last 24 hr 05/01/25 05/01/25 12:25 12:34 MCV 85.3 MCH 26.8 L MCHC 31.4 RDW 15.1 Plt Count 277 MPV 9.2 L Immature Gran % (Auto) 0.3 Neut % (Auto) 68.2 Lymph % (Auto) 23.4 [place] % (Auto) 6.5 Eos % (Auto) 1.5 Baso % (Auto) 0.1 Lymph # (Auto) 1.8 [place] # (Auto) 0.5 Eos # (Auto) 0.1 Baso # (Auto) 0.0 Abs Immat Gran (auto) 0.02 Absolute Neuts (auto) 5.1 Absolute Nucleated RBC 0.000 Nucleated RBC % (auto) 0.0 Anion Gap 11 L Estim Creat Clear Calc 83.0 Estimated GFR > 60 Random Glucose 105 Lactic Acid 1.0 Calcium 8.7 Total Creatine Kinase 148 H Procalcitonin 0.02 Urine Color Red A Urine Appearance Cloudy Urine pH 6.5 Ur Specific [place] <= 1.005 Urine Protein 300 (3+) H Urine Glucose (UA) Negative Urine Ketones Negative Urine Blood Large (3+) H Urine Nitrite Not Reportable Ur Leukocyte Esterase Not Reportable Urine RBC 3-5 H Urine WBC 0-5 Ur Squamous Epith Cells 0-2 Urine Bacteria None Seen Hyaline Casts 0-2 Assessment and Plan Plan 59-year-old female with history of kidney stones recently seen in the emergency department on April 29 and diagnosed to have pyelonephritis who returns with ongoing pain and now with hematuria Flank pain with hematuria Recent urine culture negative Hematuria possibly due to kidney stones, nonobstructive Continue oral antibiotics IV fluid, pain control if no improvement can consider urology consult Med reconciliation pending at the time of admission dvt ppx - avoid chemoprophylaxis due to hematuria; mechanical devices. Quality Stroke Does the patient have a stroke diagnosis?: No VTE Prior VTE?: No VTE Risk Level:: Medical - moderate - high VTE Device Contraindication: N/A - Device Ordered VTE Drug Contraindication: Treatment Not Indicated
[2025-05-02 08:12] VITALS: BP 121/60
--- NOTE | 2025-05-02 08:53 | P.CNUR_ITS ---
History of Present Illness Consult details Consult date: 05/02/25 Narrative: 59-year-old female who presented to the emergency department with abdominal pain and bilateral flank pain. She was initially seen in the emergency department on April 29, at that time she had a CT scan which showed a small number of tiny bilateral nonobstructive renal stones with prominence of the renal collecting system with no obstructing stones and no perinephric fat stranding. Her urinalysis positive and she was diagnosed with pyelonephritis, she was discharged home with oral antibiotics. Her urine culture failed to grow any bacteria. She returned to the emergency department with ongoing bilateral flank pain as well as hematuria. Review of Systems 2 Review of Systems: Yes all other systems are reviewed and are negative Constitutional: Constitutional: Reports no additional constitutional complaints Eyes: Eyes: Reports no additional eye complaints ENT: Reports system reviewed and no additional complaints, except as documented Cardiovascular: Cardiovascular: Reports no additional cardiovascular complaints Respiratory: Respiratory: Reports no additional respiratory complaints Gastrointestinal: Gastrointestinal: Reports no additional gastrointestinal complaints Genitourinary: Genitourinary: Reports as per HPI Musculoskeletal: Musculoskeletal: Reports no additional musculoskeletal complaints Integumentary/Breasts: Skin/Breast: Reports system reviewed and no additional complaints, except as docu Neurologic: Reports system reviewed and no additional complaints, except as documented Psychiatric: Psychiatric: Reports no additional psychiatric complaints Endocrine: Endocrine: Reports no additional endocrine complaints Hematologic/Lymphatic: Hematologic/Lymphatic: Reports no additional hematologic/lymphatic complaints Allergic/Immunologic: Allergic/Immunologic: Reports no additional allergic/immunologic complaints PMFSH Past Medical History Medical History Drug-seeking behavior delivery delivered HTN (hypertension) Anemia Hypercholesteremia DVT (deep venous thrombosis) Kidney stones Surgical History Surgical History Total knee replacement status Social History Social History Household Members: None Housing: Apartment Do you presently have visiting nurse or other home services: Yes ([facility]) Alcohol intake: never Patient Tobacco Use Status: Never used Tobacco Substance Use Type: Prescription Drugs Advance Directives: No Advance Directives Information Provided: Yes Patient : No service: No Meds Allergies Allergy/AdvReac Type Severity Reaction Status Date / Time aspirin (ASA) Allergy Intermediate RASH, Verified 05/03/25 04:10 nausea and vomiting ibuprofen (IBUPROFEN) Allergy Intermediate RASH Verified 05/03/25 04:10 nicotine Allergy Intermediate RASH FROM Verified 05/03/25 04:10 NICOTINE PATCH, nausea and vomiting ketorolac (From TORADOL) Allergy Mild RAPID HR Verified 05/03/25 04:10 AND HIVES haloperidol (From Haldol) Allergy Anaphylaxis Verified 05/03/25 04:10 metoclopramide (From Reglan) Allergy Unknown Verified 05/03/25 04:10 Active Medications: Current Medications Acetaminophen (Acetaminophen 325 Mg Tablet) 975 mg PO Q6H [facility] Last Admin: 05/02/25 08:20 Dose: Not Given Albuterol Sulfate (Albuterol Sulfate 90 Mcg 8 Gm Inhaler) 2 puff INHALE Q4H PRN PRN Reason: Dyspnea Amlodipine Besylate (Amlodipine Besylate 10 Mg Tablet) 10 mg PO DAILY [facility]; Protocol Last Admin: 05/02/25 08:12 Dose: 10 mg Ascorbic Acid (Ascorbic Acid 250 Mg Tablet) 250 mg PO BID [facility] Last Admin: 05/02/25 08:12 Dose: 250 mg Atorvastatin Calcium (Atorvastatin Calcium 10 Mg Tablet) 10 mg PO DAILY [facility] Last Admin: 05/02/25 08:12 Dose: 10 mg Calcium Carbonate (Calcium Carbonate 750 Mg Tab.Chew) 750 mg PO Q4H PRN PRN Reason: Heartburn Clonazepam (Clonazepam 0.5 Mg Tablet) 0.5 mg PO BID PRN PRN Reason: anxiety attack Fluoxetine HCl (Fluoxetine Hcl 20 Mg Capsule) 60 mg PO DAILY [facility] Last Admin: 05/02/25 08:12 Dose: 60 mg Gabapentin (Gabapentin 300 Mg Capsule) 300 mg PO TID [facility] Last Admin: 05/02/25 08:12 Dose: 300 mg Lactated Ringer's (Lr) 1,000 mls @ 100 mls/hr IVCONT .Q10H [facility] Last Admin: 05/02/25 03:19 Dose: 100 mls/hr Lidocaine (Lidocaine 4 % Patch Adh..Patch) 2 patch TRANSDERMA DAILY [facility]; Protocol Loratadine (Loratadine 10 Mg Tablet) 10 mg PO DAILY [facility] Last Admin: 05/02/25 08:12 Dose: 10 mg Magnesium Hydroxide (Milk Of Magnesia 30 Ml Oral.Susp) 30 ml PO DAILY PRN PRN Reason: Constipation Mirtazapine (Mirtazapine 15 Mg Tablet) 45 mg PO BEDTIME [facility] Last Admin: 05/01/25 20:23 Dose: 45 mg Prazosin HCl (Prazosin Hcl 1 Mg Capsule) 2 mg PO BEDTIME [facility]; Protocol Last Admin: 05/01/25 20:22 Dose: 2 mg Quetiapine Fumarate (Quetiapine Fumarate 200 Mg Tablet) 200 mg PO BEDTIME [facility] Last Admin: 05/01/25 20:23 Dose: 200 mg Sodium Chloride (0.9 % Sodium Chloride Flush 3 Ml Syringe) 3 ml IVFLUSH QSHIFT [facility] Last Admin: 05/02/25 07:33 Dose: Not Given Tramadol HCl (Tramadol Hcl 50 Mg Tablet) 25 mg PO Q6H PRN PRN Reason: Pain, Severe (Pain Scale 7-10) Zolpidem Tartrate (Zolpidem Tartrate 5 Mg Tablet) 10 mg PO BEDTIME PRN PRN Reason: Insomnia Home Medications ?Medication ?Instructions ?Recorded ?Confirmed ?Last Taken ?Type ascorbic acid (vitamin C) 250 mg 1 tab PO BID 11/26/20 05/01/25 04/30/25 History tablet loratadine 10 mg tablet 10 mg PO DAILY 11/26/2004/0404/30/25 History albuterol sulfate 90 mcg/actuation 2 puff inhalation Q 4-6H PRN dyspnea 05/01/25 05/01/25 Unknown History aerosol inhaler (Ventolin HFA) amlodipine 10 mg tablet 10 mg PO DAILY 05/01/2504/0404/30/25 History atorvastatin 10 mg tablet 10 mg PO DAILY 05/01/2504/0404/30/25 History clonazepam 0.5 mg tablet 0.5 mg PO BID PRN anxiety at tack 05/01/25 05/01/25 Unknown History fluoxetine 20 mg capsule 60 mg PO DAILY 05/01/2504/0404/30/25 History gabapentin 300 mg capsule 300 mg PO TID 05/01/2505/0104/30/25 History mirtazapine 45 mg tablet 45 mg PO BEDTIME 05/01/2504/30/25 History prazosin 2 mg capsule 2 mg PO BEDTIME 05/01/2504/30/25 History quetiapine 200 mg tablet 200 mg PO BEDTIME 05/01/25 1 04/30/25 History zolpidem 10 mg tablet 10 mg PO BEDTIME PRN insomni a 05/01/25 05/01/25 Unknown History Physical Exam 2 Vital Signs: Vital Signs: Last Vital Signs Temp 97.8 F 05/02/25 06:50 Pulse 90 05/02/25 06:50 Resp 17 05/02/25 06:50 BP 121/60 05/02/25 08:12 Pulse Ox 93 05/02/25 06:50 O2 Del Method Room Air 05/02/25 06:50 BMI result Body Mass Index 28.8 Const: General: cooperative, healthy appearing and no acute distress O rientation/consciousness: patient oriented x3 HEENT: Head: Yes normal to inspection, Yes normocephalic and Yes atraumatic Eyes: Conjunctivae: conjunctivae normal Neck: Neck: Yes normal visual inspection and Yes trachea midline Chest: Chest palpation & inspection: normal inspection of the chest Resp: Effort & Inspection: normal respiratory effort GI: Inspection: Yes normal to inspection Palpation (GI): Soft to palpation Neuro: General: patient oriented x3 Psych: Appearance: grossly normal Results Labs 05/01/25 12:25 05/01/25 12:25 Labs: Abnormal lab results 05/01/25 05/01/25 Range/Units 12:25 12:34 MCH 26.8 L (27.0-33.0) pg MPV 9.2 L (9.4-12.3) fL Chloride 111 H (96-108) mmol/L Anion Gap 11 L (12-20) Total Creatine Kinase 148 H (26-140) U/L Urine Color Red A Urine Protein 300 (3+) H (Neg-Trace) mg/dL Urine Blood Large (3+) H (Negative) Urine RBC 3-5 H (0-2) /HPF Short CBC 05/01/25 Range/Units 12:25 WBC 7.5 (4.8-10.8) X10*3/uL Hgb 12.2 (12.0-16.0) g/dl Hct 38.9 (37.0-47.0) % Plt Count 277 (160-400) X10*3/uL BMP 05/01/25 12:25 Sodium 143 Potassium 3.9 Chloride 111 H Carbon Dioxide 25 BUN 9 Creatinine 0.62 Calcium 8.7 Cardiac Enzymes 05/01/25 Range/Units 12:25 Total Creatine Kinase 148 H (26-140) U/L Urine 05/01/25 Range/Units 12:34 Urine Color Red A Urine Appearance Cloudy Urine pH 6.5 (5.0-9.0) Ur Specific [place] <= 1.005 (1.005-1.025) Urine Protein 300 (3+) H (Neg-Trace) mg/dL Urine Glucose (UA) Negative (Negative) mg/dL Imaging Abdomen CT scan report/results: report reviewed and image reviewed CT scan - pelvis: report reviewed and image reviewed Additional studies: Date of Service: 04/19/25 Reason for Exam: Flank Pain; Hx Kidney Stone CLINICAL HISTORY: Flank Pain; Hx Kidney Stone CT abdomen and pelvis with contrast Comparison: 03/08/2025 Findings: The lung bases are clear. Contracted gallbladder. Small number of tiny bilateral nonobstructive renal stones. Mild prominence of the renal collecting systems bilaterally without obstructive urinary tract stone likely due to the distended urinary bladder distention. No perinephric fat stranding. 13 mm right renal lipoma versus angiomyolipoma along with too small to characterize right renal hypodensity redemonstrated. Mild left renal scarring. [id number] colonic stool. No bowel obstruction. Atherosclerotic calcifications. Small uncomplicated fat containing umbilical hernia. No appendicitis. No significant change in mild fat stranding (likely due to scarring) anterior to the urinary bladder. Rest of the abdominopelvic viscera are unremarkable. No acute fracture. Spinal degenerative changes. L3 vertebral body hemangioma. IMPRESSION: Small number of tiny bilateral nonobstructive renal stones. Mild prominence of the renal collecting systems bilaterally without obstructive urinary tract stone likely due to the distended urinary bladder distention. No perinephric fat stranding. Assessment and Plan (1) Kidney stones: Status: Acute (2) Acute flank pain: Status: Acute (3) Bilateral kidney stones: Status: Acute Plan The patient received IV abx, urine and blood c/s no growth. No need to continue abx. Pt already has outpatient appointment scheduled. Procedures Date of Service Date of Service: 05/07/25
--- NOTE | 2025-05-02 09:31 | PM.DS ---
DS: Providers Provider Date of Service: 05/02/25 Date of admission: 05/01/25 15:00 Date of discharge: 05/02/25 Primary care physician: Amber Quiroz MD Consults: 05/01/25 16:23 Consult to Urology Routine Consulting Provider: [facility] Reason for consultation: b/l flank pain/hematuria Has provider been notified: No Attending physician on discharge: Jonas Shahid Discharging clinician: Jonas Shahid DS: Diagnosis Discharge Diagnosis (1) Acute flank pain: Status: Acute DS: Summary Hospital Course Hospital Course: HPI: 59-year-old female who presents to the emergency department with abdominal pain. Patient reports bilateral flank pain. She was initially seen in the emergency department on April 29, at that time she had a CT scan which showed a small number of tiny bilateral nonobstructive renal stones with prominence of the renal collecting system with no obstructing stones and no perinephric fat stranding. Her urinalysis positive and she was diagnosed with pyelonephritis, she was discharged home with oral antibiotics. Her urine culture failed to grow any bacteria. She returned to the emergency department today with ongoing bilateral flank pain as well as hematuria. She is afebrile with no leukocytosis. In the ED she had an abdominal CTA which was unremarkable. She required multiple doses of IV narcotics for adequate pain control and she will be admitted overnight for observation due to persistent pain. Hospital course: 59-year-old female with history of kidney stones recently seen in the emergency department on April 29 and diagnosed to have pyelonephritis who returns with ongoing pain and mild hematuria: Patient was started started iv antibiotics by ed and urine /blood culture sent ( suspicion is low) :patient improvedwith IV fluid, pain control, iv antibiotics , Ct abd -Unremarkable CT angiogram of the abdomen(please see detialed results below in imaging secttion). With the above supportive care patient seems to be improved significantly-Flank pain with hematuria resolved -Recent urine culture negative Hematuria possibly due to kidney stones, nonobstructive. 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 patient will go home with tylenol ,lidocaine patch, comoplete po antibiotics ,low suspicion for bacteremia ,currently asymptomatic. Patient also seen by Urology-since patient's symptoms are improved, follow up outpatient. Above management discussed with the patient in detail length she understand and in agreement with the above plan, time spent 45 minute. Time Attestation Total time managing care of this patient today: 45 mintues. Discharge Coordination Time (in mins): 45 min Quality: Safe Use of Opioids Does Pt have an Active Cancer Diagnosis on the Problem List?: No Quality: Stroke Does the patient have a stroke diagnosis?: No Physical Exam Vital Signs: Vital Signs: Last Vital Signs Temp 97.8 F 05/02/25 06:50 Pulse 90 05/02/25 06:50 Resp 17 05/02/25 06:50 BP 121/60 05/02/25 08:12 Pulse Ox 93 05/02/25 06:50 O2 Del Method Room Air 05/02/25 06:50 BMI result Body Mass Index 28.8 Appearance: Alert.? Oriented X3.? cvs: rrr, [id number] , no murmur res: clear to auscultation ,no rhonchii or wheezing abd: no rebound or guarding ,nt, bs present. ext pulses present , no cyanosis . neuro: axo3 , nonfocal. DS: Data Data Completed and Pending Labs on day of discharge: Laboratory Results - last 24 hr 05/01/25 05/01/25 12:25 12:34 WBC 7.5 RBC 4.56 Hgb 12.2 Hct 38.9 MCV 85.3 MCH 26.8 L MCHC 31.4 RDW 15.1 Plt Count 277 MPV 9.2 L Immature Gran % (Auto) 0.3 Neut % (Auto) 68.2 Lymph % (Auto) 23.4 [place] % (Auto) 6.5 Eos % (Auto) 1.5 Baso % (Auto) 0.1 Lymph # (Auto) 1.8 [place] # (Auto) 0.5 Eos # (Auto) 0.1 Baso # (Auto) 0.0 Abs Immat Gran (auto) 0.02 Absolute Neuts (auto) 5.1 Absolute Nucleated RBC 0.000 Nucleated RBC % (auto) 0.0 Sodium 143 Potassium 3.9 Chloride 111 H Carbon Dioxide 25 Anion Gap 11 L BUN 9 Creatinine 0.62 Estim Creat Clear Calc 83.0 Estimated GFR > 60 Random Glucose 105 Lactic Acid 1.0 Calcium 8.7 Total Creatine Kinase 148 H Procalcitonin 0.02 Urine Color Red A Urine Appearance Cloudy Urine pH 6.5 Ur Specific [place] <= 1.005 Urine Protein 300 (3+) H Urine Glucose (UA) Negative Urine Ketones Negative Urine Blood Large (3+) H Urine Nitrite Not Reportable Ur Leukocyte Esterase Not Reportable Urine RBC 3-5 H Urine WBC 0-5 Ur Squamous Epith Cells 0-2 Urine Bacteria None Seen Hyaline Casts 0-2 Imaging Chest x-ray: Radiologist's impression: ITS Impressions Abdomen CTA 05/01/25 13:50 IMPRESSION: 1. Unremarkable CT angiogram of the abdomen. 2. 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 Discharge Plan Discharge Anticipated Discharge Date/Time: 05/02/25 09:23 Patient Disposition: Home Health Service Discharge Diagnosis: hematuria /flank pain Referrals: Radha Stephens MD [Physician, Urology] - 1 Week Amber Quiroz MD [Primary Care Provider, Internal Medicine] - 1 Week Discharge Medications: New acetaminophen 325 mg Tablet 975 mg PO Q6H PRN (Reason: pain) Qty: 10 0RF lidocaine [Lidocaine Pain Relief] 4 % Adhesive Patch,Medicated 2 patch transdermal DAILY Qty: 10 0RF Protocol: Apply to: Apply to: affected area Continued ascorbic acid (vitamin C) 250 mg tablet 1 tab PO BID loratadine 10 mg tablet 10 mg PO DAILY atorvastatin 10 mg tablet 10 mg PO DAILY clonazepam 0.5 mg tablet 0.5 mg PO BID PRN (Reason: anxiety attack) quetiapine 200 mg tablet 200 mg PO BEDTIME amlodipine 10 mg tablet 10 mg PO DAILY gabapentin 300 mg capsule 300 mg PO TID mirtazapine 45 mg tablet 45 mg PO BEDTIME zolpidem 10 mg tablet 10 mg PO BEDTIME PRN (Reason: insomnia) albuterol sulfate [Ventolin HFA] 90 mcg/actuation HFA aerosol inhaler 2 puff INHALATION Q4-6H PRN (Reason: dyspnea) fluoxetine 20 mg capsule 60 mg PO DAILY prazosin 2 mg capsule 2 mg PO BEDTIME Discharge Orders: Discharge Order (Routine); Ordered 05/02/25 Ordered By: Jonas Shahid Diet: Advance to usual diet Activity on Discharge: As tolerated Stand Alone Forms: Patient Portal Discharge page Print Language: Kyrgyz Care Plan Goals: Flank pain with hematuria -Recent urine culture negative Hematuria possibly due to kidney stones, nonobstructive started iv antibiotics by ed and urine /blood culture sent ( suspicion is low) :patient improvedwith IV fluid, pain control, iv antibiotics . patient will go home with tylenol ,lidocaine patch, comoplete po antibiotics ,low suspicion for bacteremia ,currently asymptomatic. Health Concerns: as above. Plan of Treatment: as above. Assessment: as above. Discharge Date/Time: 05/02/25 10:00
--- NOTE | 2025-05-02 09:57 | MHC.CM.PN ---
pt is indepdent has own ride dc plan home self care
== END 2025-05-02 10:00 | disposition home health service (06) ==
LOC: HO.ED 13:31 → HO.EDOVER 15:02 → HO.S3 16:09
PROVIDERS: Admitting Provider Physician Assistant Medical; Emergency Provider Emergency Medicine; PCP Family Medicine; Visit Provider Internal Medicine
DX: R10.A3 Flank pain, bilateral (principal); M54.50 Low back pain, unspecified; I10 Essential (primary) hypertension; E78.00 Pure hypercholesterolemia, unspecified; D64.9 Anemia, unspecified; Z87.442 Personal history of urinary calculi; Z86.718 Personal history of other venous thrombosis and embolism; Z79.899 Other long term (current) drug therapy
CPT/HCPCS: 36415; 74175; 80048; 81001; 82550; 83605; 84145; 85025; 87040; 87086; 96361; 96365; 96375; 96376; 99221; 99284; J0696; J1171; J7120; Q9967

== ENCOUNTER → 2025-05-01 12:08 | Outpatient (BNV) | payer MEDICAID, SELFPAY | PROVIDERS: Admitting Provider Physician Assistant Medical; Emergency Provider Emergency Medicine; PCP Family Medicine; Visit Provider Radiology Diagnostic Radiology | DX: D17.71 Benign lipomatous neoplasm of kidney (principal) | CPT/HCPCS: 74175 ==

== ENCOUNTER → 2025-05-01 15:00 | Outpatient (BNV) | payer MEDICAID, SELFPAY | PROVIDERS: Admitting Provider Physician Assistant Medical; Emergency Provider Emergency Medicine; PCP Family Medicine; Visit Provider Urology | DX: N20.0 Calculus of kidney (principal); R10.9 Unspecified abdominal pain | CPT/HCPCS: 99222 ==

== ENCOUNTER → 2025-05-01 15:00 | Outpatient (BNV) | payer MEDICAID, SELFPAY | PROVIDERS: Admitting Provider Physician Assistant Medical; Emergency Provider Emergency Medicine; PCP Family Medicine; Visit Provider Physician Assistant Medical | DX: R10.9 Unspecified abdominal pain (principal) | CPT/HCPCS: 99223; 99239 ==

== ENCOUNTER 2025-05-03 03:46 | Emergency (ER) | payer MEDICAID, SELFPAY ==
[2025-05-03 03:53] VITALS: BP 174/80; PULSE 110; O2SAT 96; BMI 34.7
[2025-05-03 03:55] VITALS: BP 146/69; PULSE 100; RESP 22; TEMP 36.7; O2SAT 97
--- NOTE | 2025-05-03 03:55 | ED.GENADULT ---
HPI - General Adult General Chief complaint: Abdominal Pain Stated complaint: bilateral flank pain Time Seen by Provider: 05/03/25 03:53 Source: patient and EMS Mode of arrival: EMS Limitations: no limitations History of Present Illness ED Provider: Dr. Joann Herman HPI narrative: Patient comes to the emergency room complaining of bilateral flank pain and hematuria. Patient was discharged yesterday from the hospital for the same complaint. Every time that the patient comes to the emergency room, when she gives a urine sample, there is blood in the urine. However, she has not had a single urine analysis that grows bacteria. This is patient's 6th visit in this month for the same complaint. Patient complaining of pain and requesting Dilaudid. Patient states that she is allergic to ibuprofen, Tylenol, ketorolac. Related Data Home Medications ?Medication ?Instructions ?Recorded ?Confirmed ascorbic acid (vitamin C) 250 mg 1 tab PO BID 11/26/20 05/01/25 tablet loratadine 10 mg tablet 10 mg PO DAILY 11/26/20 05/01/25 albuterol sulfate 90 mcg/actuation 2 puff inhalation Q4-6H PRN dyspnea 05/01/25 05/01/25 aerosol inhaler (Ventolin HFA) amlodipine 10 mg tablet 10 mg PO DAILY 05/01/25 05/01/25 atorvastatin 10 mg tablet 10 mg PO DAILY 05/01/25 05/01/25 clonazepam 0.5 mg tablet 0.5 mg PO BID PRN anxiety attack 05/01/25 05/01/25 fluoxetine 20 mg capsule 60 mg PO DAILY 05/01/25 05/01/25 gabapentin 300 mg capsule 300 mg PO TID 05/01/25 05/01/25 mirtazapine 45 mg tablet 45 mg PO BEDTIME 05/01/25 05/01/25 prazosin 2 mg capsule 2 mg PO BEDTIME 05/01/25 05/01/25 quetiapine 200 mg tablet 200 mg PO BEDTIME 05/01/25 05/01/25 zolpidem 10 mg tablet 10 mg PO BEDTIME PRN insomnia 05/01/25 05/01/25 Previous Rx's ?Medication ?Instructions ?Recorded acetaminophen 325 mg tablet 975 mg (3 x 325 mg) PO Q6H PRN 05/02/25 pain #10 tabs lidocaine 4 % topical patch 2 patch transdermal DAILY #10 ea 05/02/25 (Lidocaine Pain Relief) Allergies Allergy/AdvReac Type Severity Reaction Status Date / Time aspirin (ASA) Allergy Intermediate RASH, Verified 05/03/25 04:10 nausea and vomiting ibuprofen (IBUPROFEN) Allergy Intermediate RASH Verified 05/03/25 04:10 nicotine Allergy Intermediate RASH FROM Verified 05/03/25 04:10 NICOTINE PATCH, nausea and vomiting ketorolac (From TORADOL) Allergy Mild RAPID HR Verified 05/03/25 04:10 AND HIVES haloperidol (From Haldol) Allergy Anaphylaxis Verified 05/03/25 04:10 metoclopramide (From Reglan) Allergy Unknown Verified 05/03/25 04:10 Review of Systems Review of Systems: Constitutional : No Weight loss, No Fever, No Chills, No Night Sweats, No Fatigue, No Malaise ENT/Mouth : No Hearing loss, No Ear Pain, No Nasal Congestion, No Sinus Pain, No Hoarseness, No sore throat, No Rhinorrhea, No Swallowing Difficulty Eyes: No Eye Pain, No Swelling, No Redness, No Foreign Body, No Discharge, No Vision Changes Cardiovascular : No Chest Pain, No SOB, No Dyspnea on Exertion, No Orthopnea, No Edema, No Palpitations Respiratory : No Cough, No Sputum, No Wheezing, No Smoke Exposure, No Dyspnea Gastrointestinal : No Nausea, No Vomiting, No Diarrhea, No Constipation, No abdominal Pain, No Hematochezia, No Melena Genitourinary : no irregular bleeding, complaining of hematuria and bilateral flank pain Musculoskeletal : No joint pain, No Myalgias, No Joint Swelling Skin : No Skin Lesions, No rash Neuro : No Weakness, No Numbness, No Paresthesias, No Loss of Consciousness, No Dizziness, No Headache Psych : No Anxiety/Panic, No Depression, No SI/HI/AH/VH, No Social Issues, Heme/Lymph: No Bruising, No Bleeding,No Lymphadenopathy Endocrine : No Polyuria, No Polydipsia, No Temperature Intolerance PMFSH Past Medical History Medical History Drug-seeking behavior delivery delivered HTN (hypertension) Anemia Hypercholesteremia DVT (deep venous thrombosis) Kidney stones Surgical History Total knee replacement status Social History Social History Household Members: None Housing: Apartment Do you presently have visiting nurse or other home services: Yes ([employer]) Alcohol intake: never Patient Tobacco Use Status: Never used Tobacco Substance Use Type: Prescription Drugs Advance Directives: No Advance Directives Information Provided: Yes Patient : No service: No Physical Exam ED Exam Exam: Appearance: Alert. Oriented X3. Crying, writhing in the bed stretcher Eyes: Pupils equal, round and reactive to light. ENT: Pharynx normal. Neck: Normal inspection. Neck supple. No lymph nodes noted. No crepitus CVS: Normal heart rate and rhythm. Pulses normal. Normal S1 and S2 Respiratory: No respiratory distress. Breath sounds normal. No Wheezing. No rales Abdomen: Soft and nontender. No rigidity. No distention. Patient states that she can not sit up because she is in so much pain Skin: Skin warm and dry. Normal skin color. Normal skin turgor. Extremities: No lower extremity edema. No Lacerations. No Rash Neuro: Oriented X 3. No motor deficit. No sensory deficit. Moving all extremities. No slurred speech. CN 2 through 12 grossly intact Psych: calm, cooperative, normal affect Vital Signs: Vital Signs - 24 hr 05/03/25 03:55 Temperature 98.1 F Pulse Rate 100 Respiratory Rate 22 H Blood Pressure 146/69 H Pulse Oximetry 97 Oxygen Delivery Method Room Air BMI result Body Mass Index 34.7 Course Course Course Narrative: Patient has had 26 CT scans of the abdomen/ultrasounds that has been documented in our system. This is without counting any other possible visits to other hospitals. The CT scan from 1 day ago, did not did not show any ureterolithiasis Medical Decision Making Medical Decision Making MDM Narrative: This is the patient's 6th ED visit for the same complaint. The patient was discharged yesterday from this hospital, inpatient floor, for the same complaint. According to hospitalist note, she was treated with IV narcotics. Patient's urinalysis was red, had blood in the urine but no signs of UTI. No bacterial growth I discussed with the patient that we will give her pain medication but it would not be morphine or Dilaudid. Patient got upset. I discussed with the patient that for this month, we already have labs, the latest are from 1.5 days ago at this time, blood work is not indicated. I discussed with the patient that the best way to obtain a urine would be to do a straight catheterization to obtain a clean sample. Patient refused. I discussed with the patient that if she is urinating the huge amount of blood that she is claiming to, we would probably have to do a CBI. Patient refused I discussed with the patient that we would do a urinalysis. Patient agreed. Patient states that she is ready to urinate. However, I told the patient that we would have a tech or nurse go in with her to do a supervised urine catch. Patient refused and walked out Interestingly, the patient came in writhing in the stretcher and crying and screaming. Then, as mentioned above, she was asked to give us urine sample. Patient agreed at first stating that she was ready to go to the bathroom to give us a urine sample. However, when the patient was informed that we were going to supervised urine clean catch, patient said that she no longer had to urinate and became upset. I informed the patient, that initially this is the only lab that we will be obtaining, since we have fairly recent blood work labs and images, both ultrasounds and CAT scans. I told the patient that we are willing to wait as long as needed for her to urinate, but the urine catch is still going to be supervised. The patient walked out with normal steady gait, no crying, no writhing, not holding her flanks or abdomen, yelling that she will come back during another shift Discharge Plan Discharge Clinical Impression: Drug-seeking behavior Patient Disposition: Elopement Prescriptions: No Action ascorbic acid (vitamin C) 250 mg tablet 1 tab PO BID loratadine 10 mg tablet 10 mg PO DAILY atorvastatin 10 mg tablet 10 mg PO DAILY clonazepam 0.5 mg tablet 0.5 mg PO BID PRN (Reason: anxiety attack) quetiapine 200 mg tablet 200 mg PO BEDTIME amlodipine 10 mg tablet 10 mg PO DAILY gabapentin 300 mg capsule 300 mg PO TID mirtazapine 45 mg tablet 45 mg PO BEDTIME zolpidem 10 mg tablet 10 mg PO BEDTIME PRN (Reason: insomnia) albuterol sulfate [Ventolin HFA] 90 mcg/actuation HFA aerosol inhaler 2 puff INHALATION Q4-6H PRN (Reason: dyspnea) fluoxetine 20 mg capsule 60 mg PO DAILY prazosin 2 mg capsule 2 mg PO BEDTIME acetaminophen 325 mg Tablet 975 mg PO Q6H PRN (Reason: pain) Qty: 10 0RF lidocaine [Lidocaine Pain Relief] 4 % Adhesive Patch,Medicated 2 patch transdermal DAILY Qty: 10 0RF Protocol: Apply to: Apply to: affected area Print Language: Serbian
--- NOTE | 2025-05-03 04:12 | PC.NURSE ---
provider at bedside, advised pt we would be doing a UA when she was able to urinate, pt agreed, pt ambulated to bathroom and then refused to pee. Pt was bladder scanned and during this she stated she would come back another day. provider and bellows charger assembler aware. Pt ambulated pt of ED with steady gate.
--- OUTSIDE RECORDS SUMMARY | 2025-05-03 04:23 | XMS_ITS | Encounter Summary ---
Author Organization [employer] Address [address] [facility] [address] [place] [address] Care Team Providers Care Smoking Pipe Liner Name Role Phone Amber Quiroz MD Primary Care Provider [phone] Fred Parker RN Unavailable [phone] Sherry Herbert Unavailable Encounter Details Date [...] Upcoming Encounters Date Type Department Care Team ([facility] st Contact Info) Description 05/15/2025 11:00 AM EST Clinical Support [facility] [address] [place] [address] Rachelle Lucero, DOROTA [address] [place] [address] 05/26/2025 10:00 AM EST Office Visit [facility] [address] [place] [address] Amber Quiroz MD [address] [place] [address] documented as of this encounter Procedures Procedure [...] EDT) Sodium 144 135 - 145 mmol/L [facility] Potassium 3.3 3.3 - 5.1 mmol/L [facility] Chloride 111(H) 96 - 108 mmol/L [facility] Carbon Dioxide 26 22 - 29 mmol/L [facility] Anion Gap 10(L) 12 - 20 [facility] Urea Nitrogen (BUN) 14 9 - 16 mg/dL [facility] Creatinine, Serum 0.61 0.5 - 1.4 mg/dL [facility] Creatinine Clr Calc Pharmacy 84.5 [facility] Comment:Provided height and weight: 154.94 cm,64.8 kg.eGFR (calculated from the MDRD study equation) and eCrCl(calculated from the Cockcroft-Gault equation) are based ondifferent parameters and may not yield comparable results.If eCrCl result is absurd, please check patient'sheight/weight. Estimated Glomerular Filt Rate >60 [facility] Comment:Chronic Kidney Disea se: Estimated GFR < 60 mL/min/1.29b5Wfhkhc Kidney Disease: Estimated GFR < 15 mL/min/1.73m2 Glucose 92 60 - 115 mg/dL [facility] Calcium 8.9 8.4 - 10.2 mg/dL [facility] Bilirubin, Total 0.5 0.0 - 1.0 mg/dL [facility] Aspartate Amino Transferase 22 5 - 31 U/L [facility] Alanine Aminotransferase 13 0 - 31 U/L [facility] Total Protein 7.1 6.5 - 8.0 g/dL [facility] Albumin Level 4.4 3.5 - 5.0 g/dL [facility] Alkaline Phosphatase 110 39 - 117 U/L [facility] 04/29/2025 12:1 4 PM EDT 04/29/2025 12:17 PM EDT us Generic External Data Provider LAB BLOOD ORDERAB LES Final Result [facility] [address] [place] [address] [phone] * (ABNORMAL) Urinalysis, Complete, with Reflex to Culture (04/29/2025 11:15 AM EDT) Color Urine BROWN [facility] Appearance Urine Clear [facility] PH 6.0 5.0 - 9.0 [facility] Glucose Urine UA Negative Negative mg/dL [facility] Urine Blood Large (3+)(A) Negative [facility] Specific [employer] - Urine <=1.005 1.005 - 1.025 [facility] Urine Protein 30 (1+)(A) Neg-Trace mg/dL [facility] Urine Ketones Negative Negative mg/dL [facility] Nitrite Urine Positive(A) Negative [facility] Leukocyte Esterase Urine Negative Negative [facility] RBC Urine 6-10(A) 0 - 2 /HPF [facility] Urine WBC 0-5 0 - 5 /HPF [facility] Urine Squamous Epithelial Cell 0-2 0 - 2 /HPF [facility] Urine Bacteria 1+ None Seen [facility] Hyaline Casts, Urine 0-2 0 - 2 /LPF [facility] 04/29/2025 11:1 5 AM EDT 04/29/2025 11:18 AM EDT Narrative [facility] - 04/29/2025 12:22 PM EDT Urine, Clean Catch us Generic External Data Provider LAB URINE ORDERAB LES Final Result Performing Organization Address City/State/[facility] Co de Phone Number [facility] [address] [place] [phone] * (ABNORMAL) CBC auto differential (04/29/2025 11:05 AM EDT) White Blood Count 6.2 4.8 - 10.8 X10*3/uL [facility] Red Blood Count 4.50 4.20 - 5.50 X10*6/uL [facility] Hemoglobin 12.0 12.0 - 16.0 g/dl [facility] Hematocrit 37.2 37.0 - 47.0 % [facility] Mean Corpuscular Volume 82.7 80.0 - 98.0 fL [facility] Mean Corpuscular Hemoglobin 26.7(L) 27.0 - 33.0 pg [facility] Mean Corpuscular HGB Conc 32.3 31.0 - 35.0 g/dl [facility] Red Cell Distribution Width 15.6 11.0 - 16.0 % [facility] Platelet Count 321 160 - 400 X10*3/uL [facility] Mean Platelet Volume 9.3(L) 9.4 - 12.3 fL [facility] Neutrophils Percent Auto 68.1 45 - 73 % [facility] Imm Gran Pct Auto 0.2 0.0 - 0.4 % [facility] Lymphocytes Percent Auto 26.0 20 - 40 % [facility] Monocytes Percent Auto 4.8 2 - 11 % [facility] Eosinophils Percent Auto 0.6 0 - 4 % [facility] Basophils Percent Auto 0.3 0 - 2 % [facility] NRBC Pct Auto 0.0 0.0 - 0.2 /100WBC [facility] Neutrophils Absolute Auto 4.3 2.0 - 8.3 x10*3/uL [facility] Imm Gran Abs Auto 0.01 0.00 - 0.03 X10*3/uL [facility] Lymphocytes Absolute Auto 1.6 1.2 - 4.9 X10*3/uL [facility] Monocytes Absolute Auto 0.3 0.1 - 1.2 X10*3/uL [facility] Eosinophils Absolute Auto 0.0 0.0 - 0.4 X10*3/uL [facility] Basophils Absolute Auto 0.0 0.0 - 0.2 X10*3/uL [facility] NRBC Abs Auto 0.000 0.0 - 0.012 X10*3/uL [facility] 04/29/2025 11:0 5 AM EDT 04/29/2025 11:11 AM EDT us Generic External Data Provider LAB BLOOD ORDERAB LES Final Result Performing Organization Address City/State/[facility] Co de Phone Number [facility] [address] [place] [phone] * Culture, Urine, Routine (04/29/2025 12:00 AM EDT) Urine Urine specimen obtained by clean catch procedure / Unknown 04/29/2025 04/29/2025 Comment:UACC Narrative [facility] - 04/30/2025 12:14 PM EDT Urine Culture No growth. Specimen Source: Urine clean catch us Generic External Data Provider LAB MICROBIOLOGY - GENERAL ORDERABLES Final Result Performing Organization Address [facility] Co de Phone Number [facility] [address] [place] [phone] documented in this encounter Visit Diagnoses Not on filedocumented in this encounter Additional Health Concerns Assessment Noted Time PHQ-9 Depression Total Score: 9 12/03/19 25 4:14 PM EDT documented as of this encounter Care Teams Smoking Pipe Liner Relationship Specialty Start Date End Date Amber Quiroz MD [address] [place] [address] PCP - General Family Medicine 07/03/18 Fred Parker, RN [address] [place] [address] Registered Nurse Family Medicine 04/16/25 Sherry Herbert 04/16/25 documented as of this encounter
--- OUTSIDE RECORDS SUMMARY | 2025-05-03 04:23 | XMS_ITS ---
Author Organization [employer] Address [address] [facility] 7 [place] [address] Care Team Providers Care Option Trader Name Role Phone Amber Quiroz MD Primary Care Provider [phone] Fred Parker RN Unavailable [phone] Sherry Herbert Unavailable CHW Complex Status:Outreach In Progress (Enrolling) Start date:04/16/2025 Enrollment reason:ADT Feed Overview ADT-[facility] 04/15/25 Case Team Name Relationship Phone Sherry Herbert(Responsible Staff) [phone] Continued Care and Services Coordination
--- OUTSIDE RECORDS SUMMARY | 2025-05-03 04:23 | XMS_ITS | Encounter Summary ---
Author Organization [employer] Address [address] [facility] 7t [place] [address] Care Team Providers Care Stationary Boiler Fireman Name Role Phone Amber Quiroz MD Primary Care Provider [phone] Fred Parker RN Unavailable [phone] Sherry Herbert Unavailable Encounter Details Date Type Department Care Team (Late st Contact Info) Description 09/04/2024 Orders Only [facility] [address] [place], [place] [phone] Amber Quiroz MD [address] [place] [address] Routine screening for STI (sexually [...] Upcoming Encounters Date Type Department Care Team ([facility] st Contact Info) Description 05/15/2025 11:00 AM EST Clinical Support [facility]EDS [address] [place] [address] Rachelle Lucero, DOROTA [address] [place] [address] 05/26/2025 10:00 AM EST Office Visit [facility] [address] [place] [address] Amber Quiroz MD [address] [place] [address] Scheduled Orders Name Type Priority Associated Diagnoses [...] disease documented in this encounter Care Teams Stationary Boiler Fireman Relationship Specialty Start Date End Date Amber Quiroz MD [address] [place] [address] PCP - General Family Medicine 07/03/18 Fred Parker, DROOTA [address] [place] [address] Registered Nurse Family Medicine 04/16/25 Sherry Herbert 04/16/25 documented as of this encounter
--- OUTSIDE RECORDS SUMMARY | 2025-05-03 04:23 | XMS_ITS | Encounter Summary ---
Author Organization [employer] Address [address] [facility] 7t [place] [address] Care Team Providers Care Talent Development Analyst Name Role Phone Amber Quiroz MD Primary Care Provider [phone] Fred Parker RN Unavailable [phone] Sherry Herbert Unavailable Reason for Visit * Reason Comments Med Refill Encounter Details Date Type Department Care Team (Late st Contact Info) Description 11/18/[address] [facility] [address] [place], [place] [phone] Amber Quiroz MD [address] [place], [place] [phone] Nephrolithiasis Social History Tobacco Use Types Packs/Day [...] Description 05/15/2025 11:00 AM EST Clinical Support [facility] [address] [place] [address] Rachelle Lucero RN [address] [place] [address] 05/26/2025 10:00 AM EST Office Visit [facility] [address] [place] [address] Amber Quiroz MD [address] [place] [address] documented as of this encounter Visit Diagnoses Diagnosis Nephrolithiasis Calculus of kidney documented in this encounter Care Teams Talent Development Analyst Relationship Specialty Start Date End Date Amber Quiroz MD [address] [place] [address] PCP - General Family Medicine 07/03/18 Fred Parker, DOROTA [address] [place] [address] Registered Nurse Family Medicine 04/16/25 Sherry Herbert 04/16/25 documented as of this encounter
--- OUTSIDE RECORDS SUMMARY | 2025-05-03 04:23 | XMS_ITS | Encounter Summary ---
Author Organization [facility] Address [address] [place] [address] Care Team Providers Care Customs Inspector Name Role Phone Physician, Pcp Unknown Primary Care Provider Faye vailable Encounter Details Date Type Department Care Team (Late st Contact Info) Description 09/25/2024 Lab Requisition [facility] - Main Lab [address] [facility] [place] [address] Zachery Chi PA [address] [place] [address] [place] [address] Calculus of ureter Social History [...] Res ult [facility] [address] [place] [address], documented in this encounter Visit Diagnoses Diagnosis Calculus of ureter documented in this encounter Care Teams Customs Inspector Relationship Specialty Start Date End Date Physician, Pcp Unknown PCP - General 04/18/25 documented as of this encounter
--- OUTSIDE RECORDS SUMMARY | 2025-05-03 04:23 | XMS_ITS | Encounter Summary ---
Author Organization [employer] Address [address] [facility] 7t [place] [address] Care Team Providers Care Lamination Operator Name Role Phone Amber Quiroz MD Primary Care Provider [phone] Fred Parker RN Unavailable Sherry Herbert Unavailable Reason for Visit * Reason Onset Date Comments Triage 04/29/2025 Encounter Details Date Type Department Care Team (Late st Contact Info) Description 04/29/2025 Telephone [facility] [address] [place] [phone] Amber Quiroz MD [address] [place], [place] [phone] Triage Social History Tobacco Use Types Packs/Day [...] Telephone Encounter - Cheryl Larkin RN - 05/02/2025 1:36 PM EDT Pt currently admitted. To follow up upon discharge. * Telephone Encounter - Briana Mitchell RN - 05/01/2025 3:32 PM EDT Pt at [facility] ED today 05/01/25 for acute flank pain. Will task to status check after discharge. * Telephone Encounter - Krupa Serna RN - 04/29/2025 10:19 AM EDT Patient presented to walk in center and placed on schedule to be seen for asthma then pt took a seat. Within minutes of being seated pt came to the motel front desk clerk crunched over holding right side states please call an ambulance, motel front desk clerk came for a nurse pt was brought back to triage room in a wheel chair to assess. Patient was crying loudly reporting 10/10 pain. Pt reports history of kidney stateshas been having right sided kidney pain for three days which is now worse and has blood in her urine she then ask for ambulance again 911 initiated and pt transported to [facility]. Will forward to green team nurse for follow up and [employer] nurse as patient has an appointment tomorrow. documented in this encounter Plan of Treatment Upcoming Encounters Date Type Department Care Team (Late st Contact Info) Description 05/15/2025 11:00 AM EST Clinical Support [facility] [address] [place] [address] Rachelle Lucero RN [address] [place] [address] 05/26/2025 10:00 AM EST Office Visit [facility] [address] [place] [address] Amber Quiroz MD [address] [place] [address] documented as of this encounter Visit Diagnoses Not on filedocumented in this encounter Additional Health Concerns Assessment Noted Time PHQ-9 Depression Total Score: 9 12/03/19 25 4:14 PM EDT documented as of this encounter Care Teams Lamination Operator Relationship Specialty Start Date End Date Amber Quiroz MD [address] [place] [address] PCP - General Family Medicine 07/03/18 Fred Parker, DOROTA [address] [place] [address] Registered Nurse Family Medicine 04/16/25 hSerry Herbert 04/16/25 documented as of this encounter
--- OUTSIDE RECORDS SUMMARY | 2025-05-03 04:23 | XMS_ITS | Encounter Summary ---
Author Organization [employer] Address 75 [facility] 7t [place] [address] Care Team Providers Care City Superintendent Name Role Phone Amber Quiroz MD Primary Care Provider [phone] Fred Parker RN Unavailable [phone] Sherry Herbert Unavailable Reason for Visit * Reason Onset Date Comments Nurse Triage 01/11/2024 Encounter Details Date Type Department Care Team (Late st Contact Info) Description 01/11/2024 Telephone [facility] MEDICINE 230 [place] [address] Amber Quiroz MD 230 [place], [place] [phone] Nurse Triage Social History Tobacco Use Types [...] [facility]. * Telephone Encounter - Lacy Sahni LPN - 01/11/2024 3:31 PM EDT Triage in process. Patient requesting pain medication for kidney stone pain in [facility] 01/07/24-01/08/24. Patient not seeing any [...] worse Override Notes: Seen and treated at [facility] known kidney stones wants something [...] 11:00 AM EST Clinical Support [facility] MED & PEDS 505 [place] [address] Rachelle Lucero RN 505 [place] [address] 05/26/2025 10:00 AM EST Office Visit [facility] MEDICINE 230 [place] [address] Amber Quiroz MD 230 [place] [address] documented as of this encounter Visit Diagnoses Not on filedocumented in this encounter Care Teams City Superintendent Relationship Specialty Start Date End Date Amber Quiroz MD 230 [place] [address] PCP - General Family Medicine 07/03/18 Fred Parker, RN 505 [place] [address] Registered Nurse Family Medicine 04/16/25 Sherry Herbert 04/16/25 documented as of this encounter
--- OUTSIDE RECORDS SUMMARY | 2025-05-03 04:23 | XMS_ITS | Encounter Summary ---
Author Organization [employer] Address 75 [facility] 7t [place] [address] Care Team Providers Care Cinder Pit Crane Operator Name Role Phone Amber Quiroz MD Primary Care Provider [phone] Fred Parker RN Unavailable [phone] Sherry Herbert Unavailable Encounter Details Date Type Department Care Team (Late st Contact Info) Description 12/14/2024 Orders Only [facility] MEDICINE [address] [place], [place] [phone] Amber Quiroz MD 230 [place] [address] Hyperglycemia (Primary Dx); Flank pain; [...] Description 05/15/2025 11:00 AM EST Clinical Support [facility] MED & PEDS 505 [place] [address] Rachelle Lucero, DOROTA 505 [place] [address] 05/26/2025 10:00 AM EST Office Visit [facility] MEDICINE [address] [place] [address] Amber Quiroz MD [address] [place] [address] Scheduled Orders Name Type Priority Associated Diagnoses [...] documented as of this encounter Care Teams Cinder Pit Crane Operator Relationship Specialty Start Date End Date Amber Quiroz MD [address] [place] [address] PCP - General Family Medicine 07/03/18 Fred Parker, DOROTA [address] [place] [address] Registered Nurse Family Medicine 04/16/25 Sherry Herbert 04/16/25 documented as of this encounter
--- OUTSIDE RECORDS SUMMARY | 2025-05-03 04:23 | XMS_ITS | Encounter Summary ---
Author Organization [employer] Address [address] [facility] [facility] [address] 7t [place] [address] Care Team Providers Care Tellers Supervisor Name Role Phone Amber Quiroz MD Primary Care Provider Fred Parker RN Unavailable [phone] Sherry Herbert Unavailable Encounter Details Date Type Department Care Team (Late st Contact Info) Description 11/24/2023 Telephone [facility] MEDICINE 230 [place] [address] Amber Quiroz MD 230 [place] [address] Social History Tobacco Use Types [...] Description 05/15/2025 11:00 AM EST Clinical Support [facility] MED & PEDS 505 [place] [address] Rachelle Lucero RN 505 [place] [address] 05/26/2025 10:00 AM EST Office Visit [facility] MEDICINE [address] [place] [address] Amber Quiroz MD 230 [place] [address] documented as of this encounter Visit Diagnoses Not on filedocumented in this encounter Care Teams Tellers Supervisor Relationship Specialty Start Date End Date Amber Quiroz MD 230 [place] [address] PCP - General Family Medicine 07/03/18 Fred Parker, DOROTA 505 [place] [address] Registered Nurse Family Medicine 04/16/25 Sherry Herbert 04/16/25 documented as of this encounter
--- OUTSIDE RECORDS SUMMARY | 2025-05-03 04:23 | XMS_ITS | Encounter Summary ---
Author Organization [employer] Address 75 [facility] 7t [place] [address] Care Team Providers Care Psychologist Counseling Name Role Phone Amber Quiroz MD Primary Care Provider [phone] Fred Parker RN Unavailable [phone] Sherry Herbert Unavailable Encounter Details Date Type Department Care Team (Late st Contact Info) Description 12/18/2024 Telephone [facility] MEDICINE 230 [place], [place] [phone] Amber Quiroz MD 230 [place], [place] [phone] Social History Tobacco Use Types Packs/Day Years [...] returning call. Pt provided temporary contact number [phone] documented in this encounter Plan of Treatment Upcoming Encounters Date Type Department Care Team (Late st Contact Info) Description 05/15/2025 11:00 AM EST Clinical Support [facility] CH[facility] MED & PEDS 505 [place] [address] Rachelle Lucero, RN 505 [place] [address] 05/26/2025 10:00 AM EST Office Visit [facility] MEDICINE 230 [place] [address] Amber Quiroz MD [address] [place] [address] documented as of this encounter Visit Diagnoses Not on filedocumented in this encounter Additional Health Concerns Assessment Noted Time PHQ-9 Depression Total Score: 9 12/03/19 25 4:14 PM EDT documented as of this encounter Care Teams Psychologist Counseling Relationship Specialty Start Date End Date Amber Quiroz MD 230 [place] [address] PCP - General Family Medicine 07/03/18 Fred Parker, DOROTA 505 [place] [address] Registered Nurse Family Medicine 04/16/25 Sherry Herbert 04/16/25 documented as of this encounter
--- OUTSIDE RECORDS SUMMARY | 2025-05-03 04:23 | XMS_ITS | Encounter Summary ---
Author Organization [employer] Address 75 [facility] 7 [place] [address] Care Team Providers Care Insole Reinforcer Name Role Phone Amber Quiroz MD Primary Care Provider [phone] Fred Parker RN Unavailable [phone] Sherry Herbert Unavailable Encounter Details Date Type Department Care Team (Late st Contact Info) Description 11/16/2022 Abstract [facility] MEDICINE 230 [place] [address] Amber Quiroz MD 230 [place], [place] [phone] Social History Tobacco Use Types Packs/Day Years [...] 11:00 AM EST Clinical Support [facility] CH[facility] MED & PEDS [address] [place] [address] Rachelle Lucero, DOROTA 505 [place] [address] 05/26/2025 10:00 AM EST Office Visit [facility] 230 [place] [address] Amber Quiroz MD [address] [place] [address] documented as of this encounter Visit Diagnoses Not on filedocumented in this encounter Care Teams Insole Reinforcer Relationship Specialty Start Date End Date Amber Quiroz MD 230 [place] [address] PCP - General Family Medicine 07/03/18 Fred Parker, DOROTA [address] [place] [address] Registered Nurse Family Medicine 04/16/25 Sherry Herbert 04/16/25 documented as of this encounter
--- OUTSIDE RECORDS SUMMARY | 2025-05-03 04:23 | XMS_ITS ---
Author Organization [employer] Address 75 [facility] 7 [place] [address] Care Team Providers Care Electrical Appliance Servicer Name Role Phone Amber Quiroz MD Primary Care Provider [phone] Fred Parker RN Unavailable [phone] Sherry Herbert Unavailable CM Complex Status:Outreach In Progress (Enrolling) Start date:04/16/2025 Enrollment reason:ADT Feed Overview [facility] 04/15/25 Case Team Name Relationship Phone Fred Parker RN(Responsible Staff) Registered Jeremie salgado [phone] Continued Care and Services Coordination
--- OUTSIDE RECORDS SUMMARY | 2025-05-03 04:23 | XMS_ITS | Encounter Summary ---
Author Organization [employer] Address 75 [facility] 7t [place] [address] Care Team Providers Care Veterinary Virus Serum Inspector Name Role Phone Amber Quiroz MD Primary Care Provider [phone] Fred Parker RN Unavailable [phone] Sherry Herbert Unavailable Reason for Visit * Reason Onset Date Comments Med Refill 01/10/2024 Encounter Details Date Type Department Care Team (Late st Contact Info) Description 01/10/2024 Telephone [facility] MEDICINE 230 [place] [address] Amber Quiroz MD 230 [place], [place] [phone] Med Refill Social History Tobacco Use Types [...] immediate release tablet To be sent to: [facility] - [place], [place] - [address] [place] [address] documented in this encounter Plan of Treatment Upcoming Encounters Date Type Department Care Team (Late st Contact Info) Description 05/15/2025 11:00 AM EST Clinical Support [facility] MED & PEDS 505 [place] [address] Rachelle Lucero RN 505 [place] [address] 05/26/2025 10:00 AM EST Office Visit [facility] MEDICINE 230 [place] [address] Amber Quiroz MD 230 [place] [address] documented as of this encounter Visit Diagnoses Not on filedocumented in this encounter Care Teams Veterinary Virus Serum Inspector Relationship Specialty Start Date End Date Amber Quiroz MD [address] [place] [address] PCP - General Family Medicine 07/03/18 Fred Parker, DOROTA [address] [place] [address] Registered Nurse Family Medicine 04/16/25 Sherry Herbert 04/16/25 documented as of this encounter
--- OUTSIDE RECORDS SUMMARY | 2025-05-03 04:23 | XMS_ITS | Encounter Summary ---
Author Organization [employer] Address [address] [place] [address] 7 [place] [address] Care Team Providers Care Healthcare Insurance Sales Agent Name Role Phone Amber Quiroz MD Primary Care Provider [phone] Fred Parker RN Unavailable [phone] Sherry Herbert Unavailable Reason for Visit * Reason Comments Med Refill Encounter Details Date Type Department Care Team (Late st Contact Info) Description 11/29/2023 Refill [facility] MEDICINE 230 [place], [place] [phone] Charleen Latif MD 230 [place], [place] [phone] Nephrolithiasis Social History Tobacco Use Types Packs/Day [...] Description 05/15/2025 11:00 AM EST Clinical Support [facility] CH[facility] MED & PEDS 505 [place] [address] Rachelle Lucero RN 505 [place] [address] 05/26/2025 10:00 AM EST Office Visit [facility] MEDICINE 230 [place] [address] Amber Quiroz MD 230 [place] [address] documented as of this encounter Visit Diagnoses Diagnosis Nephrolithiasis Calculus of kidney documented in this encounter Care Teams Healthcare Insurance Sales Agent Relationship Specialty Start Date End Date Amber Quiroz MD 230 [place] [address] PCP - General Family Medicine 07/03/18 Fred Parker, RN 505 [place] [address] Registered Nurse Family Medicine 04/16/25 Sherry Herbert 04/16/25 documented as of this encounter
--- OUTSIDE RECORDS SUMMARY | 2025-05-03 04:23 | XMS_ITS | Encounter Summary ---
Author Organization [employer] Address 75 [facility] 7t [place] [address] Care Team Providers Care Stem Shaper Name Role Phone Amber Quiroz MD Primary Care Provider [phone] Fred Parker RN Unavailable [phone] Sherry Herbert Unavailable Reason for Visit * Reason Comments Med Refill Encounter Details Date Type Department Care Team (Late st Contact Info) Description 06/01/[address] [facility] MEDICINE [address] [place], [place] [phone] Amber Quiroz MD 230 [place], [place] [phone] Pain Social History Tobacco Use Types Packs/Day [...] Description 05/15/2025 11:00 AM EST Clinical Support [facility] CHC MED & PEDS 505 [place] [address] Rachelle Lucero RN 505 [place] [address] 05/26/2025 10:00 AM EST Office Visit [facility] MEDICINE 230 [place] [address] Amber Quiroz MD 230 [place] [address] documented as of this encounter Visit Diagnoses Diagnosis Pain Generalized pain documented in this encounter Care Teams Stem Shaper Relationship Specialty Start Date End Date Amber Quiroz MD 230 [place] [address] PCP - General Family Medicine 07/03/18 Fred Parker, RN 505 [place] [address] Registered Nurse Family Medicine 04/16/25 Sherry Herbert 04/16/25 documented as of this encounter
--- OUTSIDE RECORDS SUMMARY | 2025-05-03 04:23 | XMS_ITS | Encounter Summary ---
Author Organization [employer] Address 75 [facility] 7 [place] [address] Care Team Providers Care Imaging Technician Name Role Phone Amber Quiroz MD Primary Care Provider [phone] Fred Parker RN Unavailable [phone] Sherry Herbert Unavailable Reason for Visit * Reason Comments Care Coordination C3CM- chart review Encounter Details Date Type Department Care Team (Latest Contact Info) Description 04/16/2025 Patient Outreach [facility] MED & PEDS [address] [place], [place] [phone] Amber Quiroz MD 230 [place], [place] [phone] Care Coordination (C3CM- chart review) Social History [...] abdominal pain, arthralgia of hip. Specialists include [facility] urology, ophthalmology, [facility] orthopaedic surgery. ED visits within the last 12 months include [facility] 04/15/25, [facility] 03/27/25, [facility] 03/08/25, [facility] 02/19/25, [facility] 02/08/25, [facility] 02/02/25, [facility] 01/09/25, [facility] 12/28/24, [facility] 12/25/24, [facility] 12/12/24, [facility] 12/10/24, [facility] 12/07/24, [facility] 11/29/24, etc... Last appointmentin PCP office on . No future appointment scheduled at this time. documented in this encounter Plan of Treatment Upcoming Encounters Date Type Department Care Team (Late st Contact Info) Description 05/15/2025 11:00 AM EST Clinical Support [facility] MED & PEDS 505 [place] [address] Rachelle Lucero RN 505 [place] [address] 05/26/2025 10:00 AM EST Office Visit [facility] MEDICINE 230 [place] [address] Amber Quiroz MD 230 [place] [address] documented as of this encounter Visit Diagnoses Not on filedocumented in this encounter Additional Health Concerns Assessment Noted Time PHQ-9 Depression Total Score: 9 12/03/19 25 4:14 PM EDT documented as of this encounter Care Teams Imaging Technician Relationship Specialty Start Date End Date Amber Quiroz MD 230 [place] [address] PCP - General Family Medicine 07/03/18 Fred Parker, RN [address] [place] [address] Registered Nurse Family Medicine 04/16/25 Sherry Herbert 04/16/25 documented as of this encounter
--- OUTSIDE RECORDS SUMMARY | 2025-05-03 04:23 | XMS_ITS | Encounter Summary ---
Author Organization [employer] Address 75 [facility] 7t [place] [address] Care Team Providers Care Weapons Mechanic Name Role Phone Amber Quiroz MD Primary Care Provider [phone] Fred Parker RN Unavailable [phone] Sherry Herbert Unavailable Reason for Visit * Reason Onset Date Comments status of oral surgery appt 11/11/2024 Encounter Details Date Type Department Care Team ([facility] st Contact Info) Description 11/11/2024 Telephone [facility] CH[facility] ADULT DENTAL 505 [place], [place] [phone] Francisco Mohan, TRAY 505 [place], [place] [phone] status of oral surgery appt Social History [...] Description 05/15/2025 11:00 AM EST Clinical Support [facility] CH[facility] MED & PEDS 505 [place] [address] Rachelle Lucero, RN 505 [place] [address] 05/26/2025 10:00 AM EST Office Visit [facility] MEDICINE 230 [place] [address] Amber Quiroz MD 230 [place] [address] documented as of this encounter Visit Diagnoses Not on filedocumented in this encounter Care Teams Weapons Mechanic Relationship Specialty Start Date End Date Amber Quiroz MD 230 [place] [address] PCP - General Family Medicine 07/03/18 Fred Parker, RN [address] [place] [address] Registered Nurse Family Medicine 04/16/25 Sherry Herbert 04/16/25 documented as of this encounter
--- OUTSIDE RECORDS SUMMARY | 2025-05-03 04:23 | XMS_ITS | Encounter Summary ---
Author Organization [employer] Address 75 [facility] 7t [place] [address] Care Team Providers Care Master Steam Yacht Name Role Phone Amber Quiroz MD Primary Care Provider [phone] Fred Parker RN Unavailable [phone] Sherry Herbert Unavailable Encounter Details Date Type Department Care Team (Late st Contact Info) Description 03/07/2025 Orders Only [facility] MEDICINE 230 [place], [place] [phone] Amber Quiroz MD 230 [place], [place] [phone] Flank pain (Primary Dx); History of total [...] Description 05/15/2025 11:00 AM EST Clinical Support [facility] CHC MED & PEDS 505 [place] [address] Rachelle Lucero, DOROTA 505 [place] [address] 05/26/2025 10:00 AM EST Office Visit [facility] MEDICINE 230 [place] [address] Amber Quiroz MD 230 [place] [address] documented as of this encounter Procedures Procedure Name Priority Date/Time Associated Diagnosis Comments CT ABDOMEN PELVIS WO CONTRAST Routine 03/08/2025 1:06 PM EDT documented in this encounter Results * CT Abdomen Pelvis w/o Contrast (03/08/2025 1:06 PM EDT) Anatomical Region Laterality Modality Body, Pelvis, Abdomen Computed T omography 03/08/2025 1:06 PM EDT Narrative 03/08/2025 1:08 PM EDT [address] [address] [address] Scan Report Signed Patient: John Marquez MR#: [id number] 760 : 1965 Acct:[id number] Age/Sex: 59 / F ADM Date: 03/08/25 Loc: HO.ED Attending Dr: Ordering Physician: Kaia Hamilton Date of Service: 03/08/25 Procedure(s): CT abdomen pelvis wo IV con Accession Number(s): [id number] cc: Kaia Hamilton; Amber Quiroz MD Report Number: [id number]: Total DLP = 449.00 mGy-cm Reason for Exam: abbd pain, flank pain CLINICAL HISTORY: abbd pain, flank pain CT abdomen and pelvis without contrast Comparison: CT/[place]/SR - CT ABDOMEN PELVIS WO IV CON [...] 03/08/25 1307 DD/ 1306 TD/TT: 03/08/25 1306 Spool Hauler: Procedure Note Donotuseinterpreter, Image - 03/08/[address] [address] [address] Scan Report Signed Patient: Heidi Marquez#: [id number] : 1965Acct:[id number] Age/Sex: 59 / FADM Date: 03/08/25 Loc: HO.ED Attending Dr: Ordering Physician: Kaia Hamilton Date of Service: 03/08/25 Procedure(s): CT abdomen pelvis wo IV con Accession Number(s): [id number] cc: Kaia Hamilton; Amber Quiroz MD Report Number: [id number]: Total DLP = 449.00 mGy-cm Reason for Exam: abbd pain, flank pain CLINICAL HISTORY: abbd pain, flank pain CT abdomen and pelvis without contrast Comparison: CT/[place]/SR - CT ABDOMEN PELVIS WO IV CON [...] 03/08/25 1307 DD/ 1306 TD/TT: 03/08/25 1306 Spool Hauler: [facility] External Provider IMG CT PROCEDURES Final [...] documented as of this encounter Care Teams Master Steam Yacht Relationship Specialty Start Date End Date Amber Quiroz MD 230 [place] [address] PCP - General Family Medicine 07/03/18 Fred Parker RN 505 [place] [address] Registered Nurse Family Medicine 04/16/25 Sherry Herbert 04/16/25 documented as of this encounter
--- OUTSIDE RECORDS SUMMARY | 2025-05-03 04:23 | XMS_ITS | Encounter Summary ---
Author Organization [employer] Address 75 [facility] 7t [place] [address] Care Team Providers Care Personnel Clerk Name Role Phone Amber Quiroz MD Primary Care Provider [phone] Fred Parker RN Unavailable [phone] Sherry Herbert Unavailable Reason for Visit * Reason Onset Date Comments Appointment Request 11/22/2023 Encounter Details Date Type Department Care Team (Late st Contact Info) Description 11/22/2023 Telephone [facility] MEDICINE 230 [place] [address] Amber Quiroz MD 230 [place], [place] [phone] Appointment Request Social History Tobacco Use Types [...] due tosleep difficulty. Please contact pt at [phone]. documented in this encounter Plan of Treatment Upcoming Encounters Date Type Department Care Team (Late st Contact Info) Description 05/15/2025 11:00 AM EST Clinical Support [facility] CH[facility] MED & PEDS 505 [place] [address] Rachelle Lucero RN 505 [place] [address] 05/26/2025 10:00 AM EST Office Visit [facility] MEDICINE 230 [place] [address] Amber Quiroz MD 230 [place] [address] documented as of this encounter Visit Diagnoses Not on filedocumented in this encounter Care Teams Personnel Clerk Relationship Specialty Start Date End Date Amber Quiroz MD 230 [place] [address] PCP - General Family Medicine 07/03/18 Fred Parker, RN 505 [place] [address] Registered Nurse Family Medicine 04/16/25 Sherry Herbert 04/16/25 documented as of this encounter
--- OUTSIDE RECORDS SUMMARY | 2025-05-03 04:23 | XMS_ITS | Encounter Summary ---
Author Organization [employer] Address 75 [facility] 7t [place] [address] Care Team Providers Care Stuffer Name Role Phone Amber Quiroz MD Primary Care Provider [phone] Fred Parker RN Unavailable [phone] Sherry Herbert Unavailable Encounter Details Date [...] 05/15/2025 11:00 AM EST Clinical Support [facility] CHC MED & PEDS 505 [place] [address] Rachelle Lucero RN 505 [place] [address] 05/26/2025 10:00 AM EST Office Visit [facility] MEDICINE 230 [place] [address] Amber Quiroz MD 230 [place] [address] documented as of this encounter Visit Diagnoses Not on filedocumented in this encounter Additional Health Concerns Assessment Noted Time PHQ-9 Depression Total Score: 9 12/03/19 25 4:14 PM EDT documented as of this encounter Care Teams Stuffer Relationship Specialty Start Date End Date Amber Quiroz MD 230 [place] [address] PCP - General Family Medicine 07/03/18 Fred Parker, RN 505 [place] [address] Registered Nurse Family Medicine 04/16/25 Sherry Herbert 04/16/25 documented as of this encounter
--- OUTSIDE RECORDS SUMMARY | 2025-05-03 04:23 | XMS_ITS | Encounter Summary ---
Author Organization [employer] Address [address] [facility] [address] 7t [place] [address] Care Team Providers Care Customer Service Correspondence Clerk Name Role Phone Amber Quiroz MD Primary Care Provider [phone] Fred Parker RN Unavailable [phone] Sherry Herbert Unavailable Encounter Details Date Type Department Care Team (Late st Contact Info) Description 12/12/2023 Orders Only [facility] MEDICINE 230 [place], [place] [phone] Amber Quiroz MD 230 [place] [address] Nephrolithiasis (Primary Dx) Social History [...] Upcoming Encounters Date Type Department Care Team ([facility] st Contact Info) Description 05/15/2025 11:00 AM EST Clinical Support [facility] CHC MED & PEDS 505 [place] [address] Rachelle Lucero RN 505 [place] [address] 05/26/2025 10:00 AM EST Office Visit [facility] MEDICINE 230 [place] [address] Amber Quiroz MD 230 [place] [address] documented as of this encounter Visit Diagnoses Diagnosis Nephrolithiasis- Primary Calculus of kidney documented in this encounter Care Teams Customer Service Correspondence Clerk Relationship Specialty Start Date End Date Amber Quiroz MD 230 [place] [address] PCP - General Family Medicine 07/03/18 Fred Parker, RN 505 [place] [address] Registered Nurse Family Medicine 04/16/25 Sherry Herbert 04/16/25 documented as of this encounter
--- OUTSIDE RECORDS SUMMARY | 2025-05-03 04:23 | XMS_ITS | Clinical Summary ---
Author Organization [facility] Address [address] [place] [address] Phone Care Team Providers Care Court Reporter Name Role Phone Physician, Pcp Unknown Primary [...] EDT Emergency [facility] Emergency [address] [place] [address] Teo Holly MD Pyelonephritis (Primary [...] reflex microscopic (04/18/2025 7:57 PM EDT) Specific [place] Urine 1.033(H) 1.003 - 1.030 LAB URINALYSIS - AUTOMATED METHOD 04/18/2025 8:23 PM EDT [facility] pH, Urine 6.0 5.0 - 8.0 pH LAB URINALYSIS - AUTOMATED METHOD 04/18/2025 8:23 PM EDT [facility] Leukocytes, Urine Trace(A) Negative LAB URINALYSIS - AUTOMATED METHOD 04/18/2025 8:[address] [facility] Nitrite, Urine Negative Negative LAB URINALYSIS - AUTOMATED METHOD 04/18/2025 8:[address] [facility] Protein, Urine Trace <=Trace mg/dL LAB URINALYSIS - AUTOMATED METHOD 04/18/2025 8:[address] [facility] Glucose, Urine Negative Negative mg/dL LAB URINALYSIS - AUTOMATED METHOD 04/18/2025 8:[address] [facility] Ketones, Urine Negative Negative mg/dL LAB URINALYSIS - AUTOMATED METHOD 04/18/2025 8:[address] [facility] Urobilinogen , Urine 0.2 0.2 - 1.0 mg/dL LAB URINALYSIS - AUTOMATED METHOD 04/18/2025 8:[address] [facility] Bilirubin, Urine Negative Negative LAB URINALYSIS - AUTOMATED METHOD 04/18/2025 8:[address] [facility] Blood, Urine Negative Negative LAB URINALYSIS - AUTOMATED METHOD 04/18/2025 8:[address] [facility] RBC, Urine 1.5 0 - 4 /HPF LAB URINALYSIS - AUTOMATED METHOD 04/18/2025 8:[address] [facility] WBC, Urine 16.5(H) 0 - 4 /HPF LAB URINALYSIS - AUTOMATED METHOD 04/18/2025 8:[address] [facility] Squamous Epithelial, Urine >100(H) 0 - 60 /LPF LAB URINALYSIS - AUTOMATED METHOD 04/18/2025 8:[address] [facility] Bacteria, Urine Moderate(A) Negative /HPF LAB URINALYSIS - AUTOMATED METHOD 04/18/2025 8:[address] [facility] Hyaline Casts, Urine 8.8(H) 0 - 3 /LPF LAB URINALYSIS - AUTOMATED METHOD 04/18/2025 8:[address] [facility] Urine Urine specimen obtained by clean catch procedure / Unknown Non-blood Collection / Unknown 04/18/2025 7:57 PM EDT 04/18/2025 8:01 PM EDT us Teo Holly MD LAB URINE ORDERABLES Final R esult [facility] ([facility] [address] [place] [address], [place] [phone] * CT Abdomen Pelvis w Contrast (04/18/2025 [...] LAB HEMETOLOGY METHOD 04/18/2025 5:48 PM EDT [facility] RBC 4.30 3.80 - 4.80 M/mcL LAB HEMETOLOGY METHOD 04/18/2025 5:48 PM EDT [facility] Hemoglobin 11.3(L) 11.5 - 16.0 g/dL LAB HEMETOLOGY METHOD 04/18/2025 5:48 PM EDT [facility] Hematocrit 36.1 35.0 - 47.0 % LAB HEMETOLOGY METHOD 04/18/2025 5:48 PM EDT [facility] MCV 84.0 79.0 - 98.0 FL LAB HEMETOLOGY METHOD 04/18/2025 5:48 PM EDT [facility] MCH 26.3(L) 27.0 - 32.0 pcg LAB HEMETOLOGY METHOD 04/18/2025 5:48 PM EDT [facility] MCHC 31.3(L) 32.0 - 37.0 g/dL LAB HEMETOLOGY METHOD 04/18/2025 5:48 PM EDT [facility] RDW 15.7(H) 11.0 - 15.0 % LAB HEMETOLOGY METHOD 04/18/2025 5:48 PM EDT [facility] Platelets 303 130 - 400 K/mcL LAB HEMETOLOGY METHOD 04/18/2025 5:48 PM EDT [facility] MPV 9.9 7.0 - 11.0 FL LAB HEMETOLOGY METHOD 04/18/2025 5:48 PM EDT [facility] NRBC 0.0 <1.0 % LAB HEMETOLOGY METHOD 04/18/2025 5:48 PM EDT [facility] NRBC Absolute 0.00 <0.10 K/mcL LAB HEMETOLOGY METHOD 04/18/2025 5:48 PM EDT [facility] Neutrophils Relative 50.8 % LAB HEMETOLOGY METHOD 04/18/2025 5:48 PM EDT [facility] Lymphocytes Relative 36.9 % LAB HEMETOLOGY METHOD 04/18/2025 5:48 PM EDT [facility] Monocytes Relative 7.8 % LAB HEMETOLOGY METHOD 04/18/2025 5:48 PM EDT [facility] Eosinophils Relative 3.7 % LAB HEMETOLOGY METHOD 04/18/2025 5:48 PM EDT [facility] Basophils Relative 0.4 % LAB HEMETOLOGY METHOD 04/18/2025 5:48 PM EDT [facility] Immature Granulocytes Relative 0.4 % LAB HEMETOLOGY METHOD 04/18/2025 5:48 PM EDT [facility] Neutrophils Absolute 3.59 1.50 - 7.00 K/mcL LAB HEMETOLOGY METHOD 04/18/2025 5:48 PM EDT [facility] Lymphocytes Absolute 2.61 1.00 - 5.00 K/mcL LAB HEMETOLOGY METHOD 04/18/2025 5:48 PM EDT [facility] Monocytes Absolute 0.55 0.20 - 1.00 K/mcL LAB HEMETOLOGY METHOD 04/18/2025 5:48 PM EDT [facility] Eosinophils Absolute 0.26 0.00 - 0.50 K/mcL LAB HEMETOLOGY METHOD 04/18/2025 5:48 PM EDT [facility] Basophils Absolute 0.03 0.00 - 0.20 K/mcL LAB HEMETOLOGY METHOD 04/18/2025 5:48 PM EDT [facility] Immature Granulocytes Absolute 0.03 0.00 - 0.03 K/mcL LAB HEMETOLOGY METHOD 04/18/2025 5:48 PM EDT [facility] Blood Venous blood specimen / Unknown Venipuncture / Unknown 04/18/2025 4:59 PM EDT 04/18/2025 5:34 PM EDT us Teo Holly MD LAB BLOOD ORDERABLES Final R esult [facility] [address] [place] [address], * Magnesium (04/18/2025 4:59 PM EDT) Magnesium 2.1 1.9 - 2.6 mg/dL LAB CHEMISTRY METHOD 04/18/2025 6:28 PM EDT [facility] Blood Venous blood specimen / Unknown Venipuncture / Unknown 04/18/2025 4:59 PM EDT 04/18/2025 5:34 PM EDT Teo Holly MD LAB BLOOD ORDERABLES Final R esult Performing Organization Address City/[facility]/ZIP Co de Phone Number [facility] [address] [place] [address], [place] [phone] * Lipase (04/18/2025 4:59 PM EDT) Lipase 35 13 - 75 unit/L LAB CHEMISTRY METHOD 04/18/2025 6:28 PM EDT [facility] Blood Venous blood specimen / Unknown Venipuncture / Unknown 04/18/2025 4:59 PM EDT 04/18/2025 5:34 PM EDT Teo Holly MD LAB BLOOD ORDERABLES Final R esult Performing Organization Address City/[facility]/ZIP Co de Phone Number [facility] [address] [place] [address], [place] [phone] * (ABNORMAL) Comprehensive Metabolic Panel (CMP) (04/18/2025 4:59 PM EDT) Sodium 144 133 - 145 mmol/L LAB CHEMISTRY METHOD 04/18/2025 6:30 PM EDT [facility] Potassium 3.8 3.5 - 5.5 mmol/L LAB CHEMISTRY METHOD 04/18/2025 6:30 PM EDT [facility] Chloride 112(H) 96 - 110 mmol/L LAB CHEMISTRY METHOD 04/18/2025 6:30 PM EDT [facility] CO2 27 21 - 32 mmol/L LAB CHEMISTRY METHOD [facility]/18[facility]25 [facility] Anion Gap 5 3 - 11 LAB CHEMISTRY METHOD 04/18/2025 6:[address] [facility] Glucose 119(H) 70 - 100 mg/dL LAB CHEMISTRY METHOD 04/18/2025 6:[address] [facility] BUN 11 5 - 25 mg/dL LAB CHEMISTRY METHOD 04/18/2025 6:[address] [facility] Creatinine 0.69 0.50 - 1.10 mg/dL LAB CHEMISTRY METHOD 04/18/2025 6:[address] [facility] eGFR 99 >=60 mL/min/1. 73m2 LAB CHEMISTRY METHOD 04/18/2025 6:[address] [facility] Comment:Calculation based on the Chronic Kidney Disease Epidemiology Collaboration (CKD-EPI) equation refit without adjustment for race. BUN/Creatinine Ratio 15.9 LAB CHEMISTRY METHOD 04/18/2025 6:[address] [facility] Calcium 8.7 8.5 - 10.5 mg/dL LAB CHEMISTRY METHOD 04/18/2025 6:[address] [facility] AST (SGOT) 26 10 - 42 unit/L LAB CHEMISTRY METHOD 04/18/2025 6:[address] [facility] ALT (SGPT) 36 10 - 60 unit/L LAB CHEMISTRY METHOD 04/18/2025 6:[address] [facility] Alkaline Phosphatase 138(H) 42 - 121 unit/L LAB CHEMISTRY METHOD 04/18/2025 6:[address] [facility] Total Protein 7.0 6.0 - 8.0 g/dL LAB CHEMISTRY METHOD 04/18/2025 6:[address] [facility] Albumin 3.8 3.2 - 5.0 g/dL LAB CHEMISTRY METHOD 04/18/2025 6:[address] [facility] Total Bilirubin 0.2 0.0 - 1.4 mg/dL LAB CHEMISTRY METHOD 04/18/2025 6:30 PM EDT [facility] Blood Venous blood specimen / Unknown Venipuncture / Unknown 04/18/2025 4:59 PM EDT 04/18/2025 5:34 PM EDT us Teo Holly MD LAB BLOOD ORDERABLES Final R esult [facility] ([facility] [address] [place] [address], [place] [phone] from Last 3 Months Insurance MEDICAID - [place] Care Teams Court Reporter Relationship Specialty Start Date End Date Physician, Pcp Unknown PCP - General 04/18/25
--- OUTSIDE RECORDS SUMMARY | 2025-05-03 04:23 | XMS_ITS | Encounter Summary ---
Author Organization [employer] Address [address] [facility] 7 [place] [address] Care Team Providers Care Business Services Vice President Name Role Phone Amber Quiroz MD Primary Care Provider [phone] Fred Parker RN Unavailable [phone] Sherry Herbert Unavailable Reason for Referral * Consultation (Routine) - Closed Specialty Diagnoses / Procedures Referred By Catalina savage Referred To Contact Urology Diagnoses Nephrolithiasis Loin pain hematuria syndrome Recurrent urinary tract infection Amber Quiroz MD [address] [place] [address] Phone: tel: fax: [facility] Referral ID Status Reason Start Date Expiration Date V isits Requested Visits Authorized [id number] Closed Specialty Services Required 01/17/2025 01/17/2026 6 6 Encounter Details Date Type Department Care Team (Late st Contact Info) Description 01/17/2025 Orders Only [facility] MEDIC[facility] [address] [place] [address] Amber Quiroz MD [address] [place] [address] Nephrolithiasis (Primary Dx); Loin pain [...] 05/15/2025 11:00 AM EST Clinical Support [facility] PEDS [address] [place] [address] Rachelle Lucero RN [address] [place] [address] 05/26/2025 10:00 AM EST Office Visit [facility] [address] [place] [address] Amber Quiroz MD [address] [place] [address] Scheduled Referrals Name Type Priority Associated Diagnoses [...] documented as of this encounter Care Teams Business Services Vice President Relationship Specialty Start Date End Date Amber Quiroz MD [address] [place] [phone] PCP - General Family Medicine 07/03/18 Fred Parker, DOROTA [address] [place] [phone] Registered Nurse Family Medicine 04/16/25 Sherry Herbert 04/16/25 documented as of this encounter
--- OUTSIDE RECORDS SUMMARY | 2025-05-03 04:23 | XMS_ITS | Encounter Summary ---
Author Organization [employer] Address [address] [place] [address] 7 [place] [address] Care Team Providers Care Housemaid Name Role Phone Amber Quiroz MD Primary Care Provider [phone] Fred Parker RN Unavailable [phone] Sherry Herbert Unavailable Encounter Details Date Type Department Care Team (Late st Contact Info) Description 07/28/2022 Orders Only [facility] [address] [place] [address] [phone] Anabell Martinez LPN Social History Tobacco Use [...] 11:00 AM EST Clinical Support [facility]S [address] [place] [address] Rachelle Lucero, DOROTA [address] [place] [address] 05/26/2025 10:00 AM EST Office Visit [facility] [address] [place] [address] [phone] Amber Quiroz MD [address] [place] [address] documented as of this encounter Procedures Procedure [...] (08/02/2022 12:29 AM EST) Color Urine Yellow [facility] Appearance Urine Turbid [facility] PH 6.5 5.0 - 9.0 [facility] Glucose Urine UA Negative Negative mg/dL [facility] Urine Blood Trace(A) Negative [facility] Specific [place] - Urine 1.020 1.005 - 1.025 [facility] Urine Protein 30 (1+)(A) Neg-Trace mg/dL [facility] Urine Ketones Negative Negative mg/dL [facility] Nitrite Urine Negative Negative [facility] Leukocyte Esterase Urine Large (3+)(A) Negative [facility] RBC Urine 0-2 0 - 2 /HPF [facility] Urine WBC >50(A) 0 - 5 /HPF [facility] Urine Squamous Epithelial Cell 6-10 0 - 2 /HPF [facility] Urine Bacteria 1+ None Seen [facility] Hyaline Casts, Urine 3-5 0 - 2 /LPF [facility] 08/02/2022 12:2 9 AM EST 08/02/2022 12:31 AM EST Narrative [facility] - 08/02/2022 12:50 AM EST Urine, Clean Catch [facility] External Provider LAB URI NE ORDERABLES Final Result Performing Organization Address [facility] Co de Phone Number [facility] [address] [place] [phone] * SARS-CoV-2 RNA, Influenza A/B, and RSV RNA, Ql NAAT (08/02/2022 12:17 AM EST) Influenza A PCR NEGATIVE Negative [facility] Influenza B PCR NEGATIVE Negative [facility] Resp Syncy Virus RNA Qual PCR NEGATIVE Negative [facility] SARS COV2 PCR NEGATIVE Negative [facility] SARS/Flu/RSV Note See Note [facility] Comment:All test results mus t be [...] use by authorized laboratories.Testing performed on the [employer] GeneXpert utilizingreal-time RT-PCR.All SARS CoV2 and positive influenza A/B results arereported to [facility]. 08/02/2022 12:1 7 AM EST 08/02/2022 12:19 AM EST [facility] Exter nal Provider LAB MICROBIOLOGY - GENERAL ORDERABLES Final Result Performing Organization Address [facility] Co de Phone Number [facility] [address] [place] [phone] * (ABNORMAL) Basic Metabolic Panel (08/02/2022 12:17 AM EST) Sodium 140 135 - 145 mmol/L [facility] Potassium 3.9 3.3 - 5.1 mmol/L [facility] Chloride 105 96 - 108 mmol/L [facility] Carbon Dioxide 24 22 - 29 mmol/L [facility] Anion Gap 15 12 - 20 [facility] Urea Nitrogen (BUN) 14 9 - 16 mg/dL [facility] Creatinine, Serum 0.75 0.5 - 1.4 mg/dL [facility] Creatinine Clr Calc Pharmacy 71.4 [facility] Comment:Provided height and weight: 162.56 cm,63.503 kg.eGFR (calculated from the MDRD study equation) and eCrCl(calculated from the Cockcroft-Gault equation) are based ondifferent parameters and may not yield comparable results.If eCrCl result is absurd, please check patient'sheight/weight. Estimated Glomerular Filt Rate >60 [facility] Comment:NOTE: For -Am erican individuals, multiply the result by 1.210.Chronic Kidney Disease: Estimated GFR < 60 mL/min/[id number] Kidney Disease: Estimated GFR < 15 mL/min/1.73m2 Glucose 119(H) 60 - 115 mg/dL [facility] Calcium 9.0 8.4 - 10.2 mg/dL [facility] 08/02/2022 12:1 7 AM EST 08/02/2022 12:19 AM EST us [facility] External Provider LAB BLO OD ORDERABLES Final Result [facility] [address] [place] [address] [phone] * (ABNORMAL) CBC auto differential (08/02/2022 12:17 AM EST) White Blood Count 6.4 4.8 - 10.8 X10*3/uL [facility] Red Blood Count 3.96(L) 4.20 - 5.50 X10*6/uL [facility] Hemoglobin 10.8(L) 12.0 - 16.0 g/dl [facility] Hematocrit 33.0(L) 37.0 - 47.0 % [facility] Mean Corpuscular Volume 83.3 80.0 - 98.0 fL [facility] Mean Corpuscular Hemoglobin 27.3 27.0 - 33.0 pg [facility] Mean Corpuscular HGB Conc 32.7 31.0 - 35.0 g/dl [facility] Red Cell Distribution Width 14.2 11.0 - 16.0 % [facility] Platelet Count 202 160 - 400 X10*3/uL [facility] Mean Platelet Volume 9.2(L) 9.4 - 12.3 fL [facility] Neutrophils Percent Auto 68.5 45 - 73 % [facility] Imm Gran Pct Auto 0.2 0.0 - 0.4 % [facility] Lymphocytes Percent Auto 21.9 20 - 40 % [facility] Monocytes Percent Auto 8.6 2 - 11 % [facility] Eosinophils Percent Auto 0.5 0 - 4 % [facility] Basophils Percent Auto 0.3 0 - 2 % [facility] NRBC Pct Auto 0.0 0.0 - 0.2 /100WBC [facility] Neutrophils Absolute Auto 4.4 2.0 - 8.3 x10*3/uL [facility] Imm Gran Abs Auto 0.01 0.00 - 0.03 X10*3/uL [facility] Lymphocytes Absolute Auto 1.4 1.2 - 4.9 X10*3/uL [facility] Monocytes Absolute Auto 0.6 0.1 - 1.2 X10*3/uL [facility] Eosinophils Absolute Auto 0.0 0.0 - 0.4 X10*3/uL [facility] Basophils Absolute Auto 0.0 0.0 - 0.2 X10*3/uL [facility] NRBC Abs Auto 0.000 0.0 - 0.012 X10*3/uL [facility] 08/02/2022 12:1 7 AM EST 08/02/2022 12:19 AM EST [facility] External Provider LAB BLO OD ORDERABLES Final Result Performing Organization Address City/[facility]/ZIP Co de Phone Number [facility] [address] [place] [address] [phone] * Culture, Urine, Routine (08/02/2022 12:00 AM EST) 08/02/2022 08/02/2022 7:3 1 AM EST Comment:[facility] Narrative [facility] - 08/03/2022 9:19 AM EST Urine Culture No growth. Specimen Source: Urine clean catch [facility] Exter nal Provider LAB MICROBIOLOGY - GENERAL ORDERABLES Final Result Performing Organization Address [facility] Co de Phone Number [facility] [address] [place] [address] [phone] documented in this encounter Visit Diagnoses Not on filedocumented in this encounter Care Teams Housemaid Relationship Specialty Start Date End Date Amber Quiroz MD [address] [place] [address] PCP - General Family Medicine 07/03/18 Fred Parker, RN [address] [place] [phone] Registered Nurse Family Medicine 04/16/25 Sherry Herbert 04/16/25 documented as of this encounter
--- OUTSIDE RECORDS SUMMARY | 2025-05-03 04:23 | XMS_ITS | Encounter Summary ---
Author Organization [employer] Address [address] [facility] [address] [address] [place] [address] Care Team Providers Care Keg Washer Name Role Phone Amber Quiroz MD Primary Care Provider [phone] Fred Parker RN Unavailable [phone] Sherry Herbert Unavailable Encounter Details Date Type Department Care Team (Late st Contact Info) Description 05/01/2025 Orders Only [facility] External Provider, Social History Tobacco Use Types Packs/Day Years [...] Description 05/15/2025 11:00 AM EST Clinical Support [facility] MED & PEDS [address] [place] [address] Rachelle Lucero RN [address] [place], [place] [phone] 05/26/2025 10:00 AM EST Office Visit [facility] MEDICINE [address] [place], [place] [phone] Amber Quiroz MD [address] [place], [place] [phone] documented as of this encounter Procedures Procedure Name Priority Date/Time Associated Diagnosis Comments CTA ABDOMEN W AND WO CONTRAST Routine 05/01/2025 1:50 PM EDT documented in this encounter Results * CTA Abdomen w/ and w/o Contrast (05/01/2025 1:50 PM EDT) Anatomical Region Laterality Modality Body, Abdomen Computed Tomogra phy 05/01/2025 1:50 PM EDT Narrative 05/01/2025 2:17 PM EDT [address] [place] [address] Scan Report Signed Patient: John Marquez MR#: [id number] : 1965 Acct:[id number] Age/Sex: 59 / F ADM Date: 05/01/25 Loc: HO.ED Attending Dr: Ordering Physician: Jeovany Cunningham MD Date of Service: 05/01/25 Procedure(s): CT angio abdomen Accession Number(s): [id number] cc: Jeovany Cunningham MD; Amber Quiorz MD Report Number: [id number]: Total DLP = 197.00 mGy-cm Reason for [...] 05/01/25 1414 DD/ 1350 TD/TT: 05/01/25 1405 Blindstitch Hemmer: Procedure Note Donotuseinterpreter, Image - 05/01/[address] [place] [address] [address] Scan Report Signed Patient: Heidi Marquez#: [id number] : 1965Acct:[id number] Age/Sex: 59 / FADM Date: 05/01/25 Loc: HO.ED Attending Dr: Ordering Physician: Jeovany Cunningham MD Date of Service: 05/01/25 Procedure(s): CT angio abdomen Accession Number(s): [id number] cc: Jeovany Cunningham MD; Amber Quiroz MD Report Number: [id number]: Total DLP = 197.00 mGy-cm Reason for [...] 05/01/25 1414 DD/ 1350 TD/TT: 05/01/25 1405 Blindstitch Hemmer: [facility] External Provider IMG CT PROCEDURES Final Result documented in this encounter Visit Diagnoses Not on filedocumented in this encounter Additional Health Concerns Assessment Noted Time PHQ-9 Depression Total Score: 9 12/03/19 4:14 PM EDT documented as of this encounter Care Teams Keg Washer Relationship Specialty Start Date End Date Amber Quiroz MD [address] [place] [address] PCP - General Family Medicine 07/03/18 Fred Parker, DOROTA [address] [place] [phone] Registered Nurse Family Medicine 04/16/25 Sherry Herbert 04/16/25 documented as of this encounter
--- OUTSIDE RECORDS SUMMARY | 2025-05-03 04:24 | XMS_ITS | Encounter Summary ---
Author Organization [employer] Address [address] [facility] 7t [place] [address] Care Team Providers Care Collar Baster Jumpbasting Name Role Phone Amber Quiroz MD Primary Care Provider [phone] Fred Parker RN Unavailable [phone] Sherry Herbert Unavailable Reason for Visit * Reason Comments Med Refill Encounter Details Date Type Department Care Team (Late st Contact Info) Description 11/12/2024 Refill [facility] MED[facility] [address] [place], [place] [phone] Amber Quiroz MD [address] [place], [place] [phone] Moderate persistent asthma without complication Social History [...] Description 05/15/2025 11:00 AM EST Clinical Support [facility] MED [facility] PEDS [address] [place] [address] Rachelle Lucero RN [address] [place] [address] 05/26/2025 10:00 AM EST Office Visit [facility] MEDICINE [address] [place] [address] Amber Quiroz MD [address] [place] [address] documented as of this encounter Visit Diagnoses Diagnosis Moderate persistent asthma without complication documented in this encounter Care Teams Collar Baster Jumpbasting Relationship Specialty Start Date End Date Amber Quiroz MD [address] [place] [address] PCP - General Family Medicine 07/03/18 Fred Parker, RN [address] [place] [address] Registered Nurse Family Medicine 04/16/25 Sherry Herbert 04/16/25 documented as of this encounter
--- OUTSIDE RECORDS SUMMARY | 2025-05-03 04:24 | XMS_ITS | Encounter Summary ---
Author Organization [employer] Address [address] [facility] 7 [place] [address] Care Team Providers Care Ichthyologist Name Role Phone Amber Quiroz MD Primary Care Provider [phone] Fred Parker RN Unavailable [phone] Sherry Herbert Unavailable Reason for Visit * Reason Comments Med Refill Encounter Details Date Type Department Care Team (Late st Contact Info) Description 04/26/2023 Refill [facility] MEDICINE [address] [place], [place] [phone] Amber Quiroz MD [address] [place], [place] [phone] Nausea Social History Tobacco Use Types Packs/Day [...] Description 05/15/2025 11:00 AM EST Clinical Support [facility]C MED & PEDS [address] [place] [address] Rachelle Lucero, DOROTA 505 [place] [address] 05/26/2025 10:00 AM EST Office Visit [facility] MEDICINE [address] [place] [address] Amber Quiroz MD 230 [place] [address] documented as of this encounter Visit Diagnoses Diagnosis Nausea Nausea alone documented in this encounter Care Teams Ichthyologist Relationship Specialty Start Date End Date Amber Quiroz MD [address] [place] [address] PCP - General Family Medicine 07/03/18 Fred Parker RN [address] [place] [phone] Registered Nurse Family Medicine 04/16/25 Sherry Herbert 04/16/25 documented as of this encounter
--- OUTSIDE RECORDS SUMMARY | 2025-05-03 04:24 | XMS_ITS | Clinical Summary ---
Author Organization [employer] Address [address] [facility] 7t [place] [address] Care Team Providers Care Braider Setter Name Role Phone Amber Quiroz MD Primary Care Provider [phone] Fred Parker RN Unavailable [phone] Sherry Herbert Unavailable Allergies Active Allergy [...] mouth. 10/14/19 25 Active Blood Pressure Monitor [facility] Check BP daily 1 each 11/13/19 25 [...] dependence. Patient states she is going to [place] tomorrow for about 1 week. 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 - Seen by urologist, [facility] urology 10/08/24 - Pt states she has a follow up appointment tomorrow (? Pt might be going to [place] tomorrow as well). - Discussed about my [...] of lung 04/22/2013 05/04/2023 Asthma with COPD ([facility]/HCC) 10/22/2012 Lung mass 10/22/2012 05/04/2023 Anemia 06/05/2012 [...] Department Care Team Description 05/01/2025 Orders Only [facility] External Provider, [facility] 04/30/2025 Telephone [facility] [address] [place], [place] [phone] Rachelle Lucero, DOROTA 04/29/2025 Orders Only GENERIC EXTERNAL DATA DEPARTMENT Provider, Generic External Data 04/29/2025 Telephone [facility] [address] [place] [address] Amber Quiroz MD Triage 04/29/2025 Travel 04/24/2025 Travel 04/24/[address] [address] Amber Quiroz MD Med Refill 04/24/2025 Refill [facility] MED & PEDS [address] [place] [address] Amber Quiroz MD Moderate persistent asthma without complication; Flank pain; History of total knee replacement, unspecified laterality; Primary osteoarthritis of left knee; Loin pain hematuria syndrome; Chronic back pain, unspecified back location, unspecified back pain laterality 04/19/2025 Orders Only GENERIC EXTERNAL DATA DEPARTMENT Provider, Generic External Data 04/18/2025 Patient Outreach [address] [address] Amber Quiroz MD Care Coordination ([facility] telephone call outreach) 04/17/2025 Orders Only GENERIC EXTERNAL DATA DEPARTMENT Provider, Generic External Data 04/16/2025 Patient Outreach [address] [address] Amber Quiroz MD Care Coordination ([facility] telephone call outreach ) 04/16/2025 Patient Outreach [facility] [address] [place] [address] Amber Quiroz MD Care Coordination ([facility]- chart review) 04/16/2025 Patient Outreach [address] [address] Amber Quiroz MD 04/11/2025 Telephone [facility] [address] [place] [address] Rachelle Lucero, DOROTA 04/04/2025 Refill [facility] PEDS [address] [place] [address] Amber Quiroz MD Moderate persistent asthma without complication; Flank pain; History of total knee replacement, unspecified laterality; Primary osteoarthritis of left knee; Loin pain hematuria syndrome; Chronic back pain, unspecified back location, unspecified back pain laterality 03/16/2025 Refill [facility] [address] [place] [address] Amber Quiroz MD 03/11/2025 Patient Outreach [address] [address] Amber Quiroz MD Care Coordination ([facility] f/u) 03/11/[address] [address] Amber Quiroz MD Care Management ([facility]- f/u call lv) 03/08/2025 Orders Only GENERIC EXTERNAL DATA DEPARTMENT Provider, Generic External Data 03/07/2025 Orders Only [address] [address] Amber Quiroz MD Flank pain (Primary Dx); History of total knee replacement, unspecified laterality; Primary osteoarthritis of left knee; Loin pain hematuria syndrome; Chronic back pain, unspecified back location, unspecified back pain laterality 03/07/2025 Travel 03/07/2025 Telephone [facility] [address] [place] [address] Rachelle Lucero RN VECTOR CONTROL ASSISTANT 03/06/2025 Refill [facility] [address] [place] [address] Amber Quiroz MD Flank pain 02/24/[address] [address] Amber Quiroz MD Care Management ([facility]- f/u call lvm) 02/12/[address] [address] Amber Quiroz MD No Show (Pt no show sick onsite/) 02/11/[address] [address] Cheryl Larkin, CERTIFIED HISTOLOGIC TECHNICIAN Follow-up 02/10/2025 Refill [facility]S [address] [place] [address] Rachelle Lucero RN Flank pain (Primary Dx) 02/10/2025 Telephone [facility] [address] [place] [address] Amber Quiroz MD Med Refill 02/03/2025 Refill [facility] [address] [place], [place] [phone] Amber Quiroz MD Allergic rhinitis, unspecified seasonality, [...] 11:00 AM EST Clinical Support [facility] MED [facility] PEDS [address] [place] [address] Rachelle Lucero, RN 505 [place] [address] 05/26/2025 10:00 AM EST Office Visit [facility] MEDICINE 230 [place] [address] Amber Quiroz MD 230 [place] [address] Health Maintenance Due Date Last Done Comments [...] PM EDT Narrative 05/01/2025 2:17 PM EDT [address] [address] [address] Scan Report Signed Patient: John Marquez MR#: [id number] 760 : 1965 Acct:[id number] Age/Sex: 59 / F ADM Date: 05/01/25 Loc: HO.ED Attending Dr: Ordering Physician: Jeovany Cunningham MD Date of Service: 05/01/25 Procedure(s): CT angio abdomen Accession Number(s): [id number] cc: Jeovany Cunningham MD; Amber Quiroz MD Report Number: [id number]: Total DLP = 197.00 mGy-cm Reason for [...] 05/01/25 1414 DD/ 1350 TD/TT: 05/01/25 1405 Surveillance Agent: Procedure Note Donotuseinterpreter, Image - 05/01/[address] [address] [address] Scan Report Signed Patient: Heidi Marquez#: [id number] 760 : 1965Acct:[id number] Age/Sex: 59 / FADM Date: 05/01/25 Loc: HO.ED Attending Dr: Ordering Physician: Jeovany Cunningham MD Date of Service: 05/01/25 Procedure(s): CT angio abdomen Accession Number(s): [id number] cc: Jeovany Cunningham MD; Amber Quiroz MD Report Number: [id number]: Total DLP = 197.00 mGy-cm Reason for [...] 05/01/25 1414 DD/ 1350 TD/TT: 05/01/25 1405 Surveillance Agent: [facility] External Provider IMG CT PROCEDURES Final Result * (ABNORMAL) Comprehensive Metabolic Panel (04/29/2025 12:14 PM EDT) Only the most recent of4 resultswithin the time period is included. Sodium 144 135 - 145 mmol/L [facility] Potassium 3.3 3.3 - 5.1 mmol/L [facility] Chloride 111(H) 96 - 108 mmol/L [facility] Carbon Dioxide 26 22 - 29 mmol/L [facility] Anion Gap 10(L) 12 - 20 [facility] Urea Nitrogen (BUN) 14 9 - 16 mg/dL [facility] Creatinine, Serum 0.61 0.5 - 1.4 mg/dL [facility] Creatinine Clr Calc Pharmacy 84.5 [facility] Comment:Provided height and weight: 154.94 cm,64.8 kg.eGFR (calculated from the MDRD study equation) and eCrCl(calculated from the Cockcroft-Gault equation) are based ondifferent parameters and may not yield comparable results.If eCrCl result is absurd, please check patient'sheight/weight. Estimated Glomerular Filt Rate >60 [facility] Comment:Chronic Kidney Disea se: Estimated GFR < 60 mL/min/1.05r9Blzdfk Kidney Disease: Estimated GFR < 15 mL/min/1.73m2 Glucose 92 60 - 115 mg/dL [facility] Calcium 8.9 8.4 - 10.2 mg/dL [facility] Bilirubin, Total 0.5 0.0 - 1.0 mg/dL [facility] Aspartate Amino Transferase 22 5 - 31 U/L [facility] Alanine Aminotransferase 13 0 - 31 U/L [facility] Total Protein 7.1 6.5 - 8.0 g/dL [facility] Albumin Level 4.4 3.5 - 5.0 g/dL [facility] Alkaline Phosphatase 110 39 - 117 U/L [facility] 04/29/2025 12:1 4 PM EDT 04/29/2025 12:17 PM EDT us Generic External Data Provider LAB BLOOD ORDERAB LES Final Result [facility] [address] [place] [phone] [phone] * (ABNORMAL) Urinalysis, Complete, with Reflex to Culture (04/29/2025 11:15 AM EDT) Only the most recent of3 resultswithin the time period is included. Color Urine BROWN [facility] Appearance Urine Clear [facility] PH 6.0 5.0 - 9.0 [facility] Glucose Urine UA Negative Negative mg/dL [facility] Urine Blood Large (3+)(A) Negative [facility] Specific [place] - Urine <=1.005 1.005 - 1.025 [facility] Urine Protein 30 (1+)(A) Neg-Trace mg/dL [facility] Urine Ketones Negative Negative mg/dL [facility] Nitrite Urine Positive(A) Negative [facility] Leukocyte Esterase Urine Negative Negative [facility] RBC Urine 6-10(A) 0 - 2 /HPF [facility] Urine WBC 0-5 0 - 5 /HPF [facility] Urine Squamous Epithelial Cell 0-2 0 - 2 /HPF [facility] Urine Bacteria 1+ None Seen [facility] Hyaline Casts, Urine 0-2 0 - 2 /LPF [facility] 04/29/2025 11:1 5 AM EDT 04/29/2025 11:18 AM EDT Narrative [facility] - 04/29/2025 12:22 PM EDT Urine, Clean Catch us Generic External Data Provider LAB URINE ORDERAB LES Final Result [facility] [address] [place] [phone] * (ABNORMAL) CBC auto differential (04/29/2025 11:05 AM EDT) Only the most recent of4 resultswithin the time period is included. White Blood Count 6.2 4.8 - 10.8 X10*3/uL [facility] Red Blood Count 4.50 4.20 - 5.50 X10*6/uL [facility] Hemoglobin 12.0 12.0 - 16.0 g/dl [facility] Hematocrit 37.2 37.0 - 47.0 % [facility] Mean Corpuscular Volume 82.7 80.0 - 98.0 fL [facility] Mean Corpuscular Hemoglobin 26.7(L) 27.0 - 33.0 pg [facility] Mean Corpuscular HGB Conc 32.3 31.0 - 35.0 g/dl [facility] Red Cell Distribution Width 15.6 11.0 - 16.0 % [facility] Platelet Count 321 160 - 400 X10*3/uL [facility] Mean Platelet Volume 9.3(L) 9.4 - 12.3 fL [facility] Neutrophils Percent Auto 68.1 45 - 73 % [facility] Imm Gran Pct Auto 0.2 0.0 - 0.4 % [facility] Lymphocytes Percent Auto 26.0 20 - 40 % [facility] Monocytes Percent Auto 4.8 2 - 11 % [facility] Eosinophils Percent Auto 0.6 0 - 4 % [facility] Basophils Percent Auto 0.3 0 - 2 % [facility] NRBC Pct Auto 0.0 0.0 - 0.2 /100WBC [facility] Neutrophils Absolute Auto 4.3 2.0 - 8.3 x10*3/uL [facility] Imm Gran Abs Auto 0.01 0.00 - 0.03 X10*3/uL [facility] Lymphocytes Absolute Auto 1.6 1.2 - 4.9 X10*3/uL [facility] Monocytes Absolute Auto 0.3 0.1 - 1.2 X10*3/uL [facility] Eosinophils Absolute Auto 0.0 0.0 - 0.4 X10*3/uL [facility] Basophils Absolute Auto 0.0 0.0 - 0.2 X10*3/uL [facility] NRBC Abs Auto 0.000 0.0 - 0.012 X10*3/uL [facility] 04/29/2025 11:0 5 AM EDT 04/29/2025 11:11 AM EDT Generic External Data Provider LAB BLOOD ORDERAB LES Final Result Performing Organization Address City/[facility]/ZIP Co de Phone Number [facility] [address] [place] [phone] * Culture, Urine, Routine (04/29/2025 12:00 AM EDT) Only the most recent of2 resultswithin the time period is included. Urine Urine specimen obtained by clean catch procedure / Unknown 04/29/2025 04/29/2025 Comment:CC Narrative [facility] - 04/30/2025 12:14 PM EDT Urine Culture No growth. Specimen Source: Urine clean catch Generic External Data Provider LAB MICROBIOLOGY - GENERAL ORDERABLES Final Result Performing Organization Address [facility]/ZIP Co de Phone Number [facility] [address] [place] [phone] * CT Abdomen Pelvis w/ Contrast (04/19/2025 8:04 AM EDT) Anatomical Region Laterality Modality Body, Pelvis, Abdomen Computed T omography 04/19/2025 8:04 AM EDT Narrative 04/19/2025 8:05 AM EDT [place] [address] CT Scan Report Signed Patient: John Marquez MR#: [id number] 760 : 1965 Acct:[id number] Age/Sex: 59 / F ADM Date: 04/19/25 Loc: HO.ED Attending Dr: Ordering Physician: Eliezer Steen PA-C Date of Service: 04/19/25 Procedure(s): CT abdomen pelvis w IV con Accession Number(s): [id number] cc: Eliezer Steen PA-C; Name,Mike GARCIA Report Number: [id number]: Total DLP = 0.00 mGy-cm Reason for [...] renal hypodensity redemonstrated. Mild left renal scarring. Serk-yu-mmidhvih colonic stool. No bowel obstruction. Atherosclerotic calcifications. [...] OV> 04/19/25 08 DD/ 3 TD/TT: 04/19/25803 Surveillance Agent: Procedure Note Donotuseinterpreter, Image - 04/19/[address] [address] [address] Scan Report Signed Patient: Heidi Marquez#: [id number] 760 : 1965Acct:[id number] Age/Sex: 59 / FADM Date: 04/19/25 Loc: HO.ED Attending Dr: Ordering Physician: Eliezer Steen PA-C Date of Service: 04/19/25 Procedure(s): CT abdomen pelvis w IV con Accession Number(s): [id number] cc: Eliezer Steen PA-C; Name,Mike GARCAI Report Number: [id number]: Total DLP = 0.00 mGy-cm Reason for [...] renal hypodensity redemonstrated. Mild left renal scarring. Rqlg-yy-zzrlyzzp colonic stool. No bowel obstruction. Atherosclerotic calcifications. [...] in OV> 04/19/25804 DD/ 3 TD/TT: 04/19/25803 Surveillance Agent: [facility] External Provider IMG CT PROCEDURES Final Result * Lipase (04/19/2025 3:19 AM EDT) Lipase 35 8 - 78 U/L [facility] 04/19/2025 3:19 AM EDT 04/19/2025 3:22 AM EDT Generic External Data Provider LAB BLOOD ORDERAB LES Final Result Performing Organization Address City/State/[facility] Co de Phone Number [facility] [address] [place] [phone] * CT Abdomen Pelvis w/o Contrast (03/08/2025 1:06 PM EDT) Anatomical Region Laterality Modality Body, Pelvis, Abdomen Computed T omography 03/08/2025 1:06 PM EDT Narrative 03/08/2025 1:08 PM EDT [place] [address] CT Scan Report Signed Patient: John Marquez MR#: [id number] 760 : 1965 Acct:[id number] Age/Sex: 59 / F ADM Date: 03/08/25 Loc: .ED Attending Dr: Ordering Physician: Kaia Hamilton Date of Service: 03/08/25 Procedure(s): CT abdomen pelvis wo IV con Accession Number(s): [id number] cc: Kaia Hamilton; Amber Quiroz MD Report Number: [id number]: Total DLP = 449.00 mGy-cm Reason for Exam: abbd pain, flank pain CLINICAL HISTORY: abbd pain, flank pain CT abdomen and pelvis without contrast Comparison: CT/MD/SR - CT ABDOMEN PELVIS WO IV CON [...] 03/08/25 1307 DD/ 1306 TD/TT: 03/08/25 1306 Surveillance Agent: Procedure Note Donotuseinterpreter, Image - 03/08/[address] [place] [address] [address] Scan Report Signed Patient: Heidi Marquez#: [id number] 760 : 1965Acct:[id number] Age/Sex: 59 / FADM Date: 03/08/25 Loc: .ED Attending Dr: Ordering Physician: Kaia Hamilton Date of Service: 03/08/25 Procedure(s): CT abdomen pelvis wo IV con Accession Number(s): [id number] cc: Kaia Hamilton; Amber Quiroz MD Report Number: [id number]: Total DLP = 449.00 mGy-cm Reason for Exam: abbd pain, flank pain CLINICAL HISTORY: abbd pain, flank pain CT abdomen and pelvis without contrast Comparison: CT/MD/SR - CT ABDOMEN PELVIS WO IV CON [...] 03/08/25 1307 DD/ 1306 TD/TT: 03/08/25 1306 Surveillance Agent: [facility] External Provider IMG CT PROCEDURES Final Result * (ABNORMAL) Lipid Panel with Reflex to Direct LDL (09/03/2024 4:26 PM EST) Triglycerides 112 <150 mg/dL [facility] Comment:Desirable Triglyceri de: less than 150 mg/dLBorderline High Triglyceride 150-199 mg/dLHigh Triglyceride: 200-499 mg/dLVery High Triglyceride: greater than or equal to 5OO mg/dL Cholesterol 183 <200 mg/dL [facility] Comment:Desirable Cholestero l: less than 200 mg/dLBorderline High Cholesterol: 200-239 mg/dLHigh Cholesterol: greater than 239 mg/dL LDL Cholesterol Calculated 112(H) <100 mg/dL [facility] Comment:Desirable LDL: less than 100 mg/dLNear Optimal/Above Optimal LDL: 110- 129 mg/dLBorderline High LDL: 130-159 mg/dLHigh LDL: 160-189 mg/dLVery High LDL: greater than or equal to 190 mg/dL HDL Cholesterol 49 >40 mg/dL [facility] Comment:Desirable HDL: great er than 40 mg/dL Note: This HDL assay may give artificially low results in patients with liver disease. Blood 09/03/2024 4:26 PM EST 09/03/2024 6:14 PM EST us Amber Quiroz MD LAB BLOOD ORDERABLES Final Resul t [facility] [address] [place] [phone] * (ABNORMAL) THINPREP TIS PAP AND [...] has been evaluated with computer assisted technology. [facility] Mortgage Processor: SEE COMMENT [facility] Comment: BJ, CT(ASCP) CT screening location: [place] [address] General Categorization: EPITHELIAL CELL ABNORMALITY(A ) [facility] HPV nRNA E6/E7 Not Detected Not Detected [facility] Comment: Methodology: Statistical Programmer Analyst-Mediated Amplification This assay detects E6/E7 viral messenger RNA (mRNA) from 14 high-risk HPV types (16,18,31,33,35,39,45,51,52,56,58,59,66,68). The analytical performance characteristics of this assay have been determined by [employer]. The modifications have not been cleared or approved by the FDA. This assay has been validated pursuant to the CLIA regulations and is used for clinical purposes. For additional information, please refer to http://education.[employer]/faq/KTP811i4 (This link if provided for information/ educational [...] and Clinical Pathology (electronic signature) Consulting Pathologist [facility] [phone] Prev. BX: NONE GIVEN [facility] Prev. PAP: NONE GIVEN [facility] SOURCE: None given [facility] Statement Of Adequacy: SEE [facility] Comment: Satisfactory for evaluation. Endocervical/transformation zone component present. 07/30/2021 10:1 7 AM EST us Saleem Maier MD LAB PATHOLOGY ORDERABLES Final R esult [facility] [address] [place] [address], from Last 3 Months or Most Recently Relevant to Health Maintenance Insurance [facility] C3 DENTAL-[facility] MEDICAID STAND ADULT Care Teams Braider Setter Relationship Specialty Start Date End Date Amber Quiroz MD [address] [place] [phone] PCP - General Family Medicine 07/03/18 Fred Parker, RN [address] [place] [phone] Registered Nurse Family Medicine 04/16/25 Sherry Herbert 04/16/25
--- OUTSIDE RECORDS SUMMARY | 2025-05-03 04:24 | XMS_ITS | Encounter Summary ---
Author Organization [employer] Address [address] [place] [address] 7 [place] [address] Care Team Providers Care Terrazzo Layer Helper Name Role Phone Amber Quiroz MD Primary Care Provider [phone] Fred Parker RN Unavailable [phone] Sherry Herbert Unavailable Encounter Details Date Type Department Care Team (Late st Contact Info) Description 04/05/2023 Orders Only [facility] [address] [place] [address] Anabell Martinez LPN Social History Tobacco Use [...] [facility] [address] [place] [address] Rachelle Lucero RN [address] [place] [address] 05/26/2025 10:00 AM EST Office Visit [facility] [address] [place] [address] Amber Quiroz MD [address] [place] [phone] documented as of this encounter Visit Diagnoses Not on filedocumented in this encounter Care Teams Terrazzo Layer Helper Relationship Specialty Start Date End Date Amber Quiroz MD [address] [place] [address] [phone] PCP - General Family Medicine 07/03/18 Fred Parker, DOROTA [address] [place] [phone] Registered Nurse Family Medicine 04/16/25 Sherry Herbert 04/16/25 documented as of this encounter
--- OUTSIDE RECORDS SUMMARY | 2025-05-03 04:24 | XMS_ITS | Encounter Summary ---
Author Organization [employer] Address [address] [facility] 7 [place] [address] Care Team Providers Care Driver Helper Name Role Phone Amber Quiroz MD Primary Care Provider [phone] Fred Parker RN Unavailable [phone] Sherry Herbert Unavailable Reason for Visit * Reason Comments Med Refill Encounter Details Date Type Department Care Team (Late st Contact Info) Description 04/26/2023 Refill [facility] [address] [place], [place] [phone] Alan Partida MD [address] [place], [place] [phone] Moderate persistent asthma without complication; Nausea Social [...] [facility] [address] [place], [place] [phone] Rachelle Lucero, DOROTA [address] [place], [place] [phone] 05/26/2025 10:00 AM EST Office Visit [facility] [address] [place] [phone] Amber Quiroz MD [address] [place] [address] [phone] documented as of this encounter Visit Diagnoses Diagnosis Moderate persistent asthma without complication Nausea Nausea alone documented in this encounter Care Teams Driver Helper Relationship Specialty Start Date End Date Amber Quiroz MD [address] [place] [phone] PCP - General Family Medicine 07/03/18 Fred Parker, RN [address] [place] [phone] Registered Nurse Family Medicine 04/16/25 Sherry Herbert 04/16/25 documented as of this encounter
--- OUTSIDE RECORDS SUMMARY | 2025-05-03 04:24 | XMS_ITS | Encounter Summary ---
Author Organization [employer] Address [address] [facility] 7 [place] [address] Care Team Providers Care Motor Coach Tour Operator Name Role Phone Amber Quiroz MD Primary Care Provider Fred Parker RN Unavailable [phone] Sherry Herbert Unavailable Encounter Details Date Type Department Care Team (Late st Contact Info) Description 03/22/2023 Orders Only [facility] [address] [place], [place] [phone] Amber Quiroz MD 230 [place], [place] [phone] ASCUS of cervix with negative high risk [...] 05/15/2025 11:00 AM EST Clinical Support [facility] MED & PEDS [address] [place], [place] [phone] Rachelle Lucero, DOROTA 505 [place], [place] [phone] 05/26/2025 10:00 AM EST Office Visit [facility] [address] [place] [phone] Amber Quiroz MD [address] [place] [address] [phone] documented as of this encounter Visit Diagnoses Diagnosis ASCUS of cervix with negative high risk HPV- Primary History of cervical dysplasia Personal history of cervical dysplasia documented in this encounter Care Teams Motor Coach Tour Operator Relationship Specialty Start Date End Date Amber Quiroz MD [address] [place] [phone] PCP - General Family Medicine 07/03/18 Fred Parker, RN [address] [place] [id number] Registered Nurse Family Medicine 04/16/25 Sherry Herbetr 04/16/25 documented as of this encounter
--- OUTSIDE RECORDS SUMMARY | 2025-05-03 04:24 | XMS_ITS | Encounter Summary ---
Author Organization [employer] Address 75 [facility] 7 [place] [address] Care Team Providers Care Dye Machine Tender Name Role Phone Amber Quiroz MD Primary Care Provider [phone] Fred Parker RN Unavailable [phone] Sherry Herbert Unavailable Reason for Visit * Reason Comments Med Refill Encounter Details Date Type Department Care Team (Late st Contact Info) Description 12/20/2024 Refill [facility] [address] [place], [place] [phone] Amber Quiroz MD [address] [place], [place] [phone] Nephrolithiasis Social History Tobacco Use Types Packs/Day [...] Support [facility] 505 [place] [address] Rachelle Lucero RN 505 [place] [address] 05/26/2025 10:00 AM EST Office Visit [facility] [address] [place] [address] Amber Quiroz MD [address] [place] [address] documented as of this encounter Visit Diagnoses Diagnosis Nephrolithiasis Calculus of kidney documented in this encounter Additional Health Concerns Assessment Noted Time PHQ-9 Depression Total Score: 9 12/03/19 25 4:14 PM EDT documented as of this encounter Care Teams Dye Machine Tender Relationship Specialty Start Date End Date Amber Quiroz MD [address] [place] [phone] PCP - General Family Medicine 07/03/18 Fred Parker, DOROTA 505 [place] [address] Registered Nurse Family Medicine 04/16/25 Sherry Herbert 04/16/25 documented as of this encounter
--- OUTSIDE RECORDS SUMMARY | 2025-05-03 04:24 | XMS_ITS | Encounter Summary ---
Author Organization [employer] Address 75 [facility] 7t [place] [address] Care Team Providers Care Cottage Parent Name Role Phone Amber Quiroz MD Primary Care Provider [phone] Fred Parker RN Unavailable [phone] Sherry Herbert Unavailable Encounter Details Date Type Department Care Team (Special [facility] Contact Info) Description 04/30/2025 Telephone [facility] MED & PEDS [address] [place] [address] Rachelle Lucero, RN [address] [place] [address] Social History Tobacco Use Types Packs/Day Years [...] pain. States received Morphine at the hospital. PULP DRIER initial appointment r/s to 05/15/25 @ 11am at [facility]. documented in this encounter Plan of Treatment Upcoming Encounters Date Type Department Care Team (Late st Contact Info) Description 05/15/2025 11:00 AM EST Clinical Support [facility] MED & PEDS [address] [place] [address] Rachelle Lucero, DOROTA [address] [place] [address] 05/26/2025 10:00 AM EST Office Visit [facility] [address] [place] [address] Amber Quiroz MD [address] [place] [address] documented as of this encounter Visit Diagnoses Not on filedocumented in this encounter Additional Health Concerns Assessment Noted Time PHQ-9 Depression Total Score: 9 12/03/19 25 4:14 PM EDT documented as of this encounter Care Teams Cottage Parent Relationship Specialty Start Date End Date Amber Quiroz MD [address] [place] [address] PCP - General Family Medicine 07/03/18 Fred Parker, DOROTA [address] [place] [address] Registered Nurse Family Medicine 04/16/25 Sherry Herbert 04/16/25 documented as of this encounter
--- OUTSIDE RECORDS SUMMARY | 2025-05-03 04:24 | XMS_ITS | Encounter Summary ---
Author Organization [employer] Address 75 [facility] 7t [place] [address] Care Team Providers Care Pin Ticket Machine Operator Name Role Phone Amber Quiroz MD Primary Care Provider [phone] Fred Parker RN Unavailable Sherry Herbert Unavailable Reason for Visit * Reason Onset Date Comments Med Refill 06/21/2024 Encounter Details Date Type Department Care Team (Late st Contact Info) Description 06/21/2024 Telephone [facility] MEDICINE [address] [place] [address] Amber Quiroz MD [address] [place], [place] [phone] Med Refill Social History Tobacco Use Types [...] extra strength with no relief. Please advise. STAIN APPLICATOR checked 06/21/24. Last refill of Oxycodone 5mg 11/30/23 qty 12. * Telephone Encounter - Gemma Oliveira - 06/21/2024 10:12 AM EST TC from pt requesting medication refill. Medications needing refill : oxyCODONE (Oxy-IR) 5 MG immediate release capsule To be sent to: [facility] [place] - [address] documented in this encounter Plan of Treatment Upcoming Encounters Date Type Department Care Team (Late st Contact Info) Description 05/15/2025 11:00 AM EST Clinical Support [facility] MED & PEDS [address] [place] [address] Rachelle Lucero, DOROTA 505 [place] [address] 05/26/2025 10:00 AM EST Office Visit [facility] MEDICINE 230 [place] [address] Amber Quiroz MD [address] [place] [address] documented as of this encounter Visit Diagnoses Not on filedocumented in this encounter Care Teams Pin Ticket Machine Operator Relationship Specialty Start Date End Date Amber Quiroz MD [address] [place] [address] PCP - General Family Medicine 07/03/18 Fred Parker, DOROTA 505 [place] [address] Registered Nurse Family Medicine 04/16/25 Sherry Herbert 04/16/25 documented as of this encounter
--- OUTSIDE RECORDS SUMMARY | 2025-05-03 04:24 | XMS_ITS | Encounter Summary ---
Author Organization [employer] [facility] [employer] Address [address] [place] [address] 7 [place] [address] Care Team Providers Care Mainframe Software Developer Name Role Phone Amber Quiroz MD Primary Care Provider [phone] Fred Parker RN Unavailable [phone] Sherry Herbert Unavailable Encounter Details Date Type Department Care Team (Late st Contact Info) Description 12/12/2022 Orders Only [facility] MEDICINE [address] [place] [address] [phone] Anabell Martinez LPN Social History Tobacco Use [...] Description 05/15/2025 11:00 AM EST Clinical Support [facility] MED [facility] PEDS [address] [place] [address] Rachelle Lucero, DOROTA 505 [place] [address] 05/26/2025 10:00 AM EST Office Visit [facility] MEDICINE 230 [place], [place] [phone] Amber Quiroz MD [address] [place] [address] documented as of this encounter Visit Diagnoses Not on filedocumented in this encounter Care Teams Mainframe Software Developer Relationship Specialty Start Date End Date Amber Quiroz MD [address] [place] [address] PCP - General Family Medicine 07/03/18 Fred Parker RN [address] [place] [phone] Registered Nurse Family Medicine 04/16/25 Sherry Herbert 04/16/25 documented as of this encounter
[2025-05-03 05:32] VITALS: BP 146/69; PULSE 100; RESP 22; TEMP 36.7; O2SAT 97
== END 2025-05-03 05:33 | disposition left against medical advice (07) ==
PROVIDERS: Emergency Provider Emergency Medicine; PCP Family Medicine
DX: R10.A3 Flank pain, bilateral (principal); I10 Essential (primary) hypertension; Z76.5 Malingerer [conscious simulation]
CPT/HCPCS: 99282; 99284

== ENCOUNTER 2025-05-20 05:06 | Emergency (ER) | payer MEDICAID, SELFPAY ==
--- NOTE | ~2025-05-20 | US_ITS ---
EXAMINATION: US ABDOMEN LIMITED CLINICAL INFORMATION: Right upper quadrant abdominal pain. Hematuria.. COMPARISON: None available. Correlation made with CT abdomen and pelvis 05/01/2025. TECHNIQUE: Real-time imaging of the gallbladder, bile ducts, and right kidney were performed. FINDINGS: LIVER: Image aspects grossly normal. No intrahepatic biliary ductal dilatation or suspicious lesion. Right hepatic lobe measures 14.5 cm. GALLBLADDER: The gallbladder is physiologically distended without evidence of stones, sludge, polyps, wall thickening or pericholecystic fluid. Of note, technologist reported a positive sonographic Dominguez's sign. COMMON BILE DUCT: Normal in caliber measuring 0.3 cm in diameter. RIGHT KIDNEY: No hydronephrosis. No suspicious focal parenchymal lesions. The kidney measures 10.6 cm in maximum dimension. Nonobstructing mid pole calculus measuring 2 x 3 mm. 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 FREE FLUID: None. US/US abdomen limited IMPRESSION: 1. Although the gallbladder appears normal, the technologist reported a positive sonographic Dominguez sign. 2. No biliary dilatation. 3. No hydronephrosis. There is a nonobstructing 2 x 3 mm mid pole right renal calculus. 4. 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 Electronically signed by: Eliezer Whyte MD 05/20/2025 08:22 AM [facility]
[2025-05-20 05:13] VITALS: BP 124/76; PULSE 87; RESP 18; TEMP 36.6; O2SAT 100
[2025-05-20 05:14] VITALS: BP 140/96; PULSE 99; O2SAT 100
[2025-05-20 05:17] VITALS: BMI 28.0
[2025-05-20 05:35] LABS: MANUAL DIFF FLAG NO
[2025-05-20 05:37] LABS: Hematocrit 37.3 % (37.0-47.0); Hemoglobin 11.9 g/dl (12.0-16.0); Imm Gran Abs Auto 0.00 X10*3/uL (0.00-0.03); Imm Gran Pct Auto 0.0 % (0.0-0.4); Lymphocytes Absolute Auto 2.0 X10*3/uL (1.2-4.9); Mean Corpuscular HGB Conc 31.9 g/dl (31.0-35.0); Mean Corpuscular Hemoglobin 26.7 pg (27.0-33.0); Mean Corpuscular Volume 83.6 fL (80.0-98.0); NRBC Abs Auto 0.000 X10*3/uL (0.0-0.012); NRBC Pct Auto 0.0 /100WBC (0.0-0.2); Platelet Count 299 X10*3/uL (160-400); Red Blood Count 4.46 X10*6/uL (4.20-5.50); White Blood Count 4.1 X10*3/uL (4.8-10.8)
[2025-05-20 05:49] LABS: Appearance Urine Cloudy; Glucose Urine UA Negative (Negative); PH 6.5 (5.0-9.0); Specific Gravity - Urine 1.010 (1.005-1.025); UMIC TRIGGER UACC YES
[2025-05-20 05:57] LABS: Alanine Aminotransferase 18 U/L (0-31); Albumin Level 4.4 g/dL (3.5-5.0); Alkaline Phosphatase 101 U/L (39-117); Anion Gap 13 (12-20); Aspartate Amino Transferase 24 U/L (5-31); Blood Urea Nitrogen 10 mg/dL (9-16); Calcium 9.0 mg/dL (8.4-10.2); Carbon Dioxide 19 mmol/L (22-29); Chloride 112 mmol/L (96-108); Creatinine Clr Calc Pharmacy 83.3; Estimated Glomerular Filt Rate > 60; Lipase 21 U/L (8-78); Potassium 3.4 mmol/L (3.3-5.1); Sodium 141 mmol/L (135-145); Total Protein 7.2 g/dL (6.5-8.0)
--- NOTE | 2025-05-20 06:05 | ED.ABDPAIN ---
HPI - Abdominal Pain General Chief Complaint: Abdominal Pain Stated Complaint: abdominal pain Time Seen by Provider: 05/20/25 05:58 Source: patient, EMS and old records reviewed Mode of arrival: EMS Limitations: no limitations History of Present Illness ED Provider: SHEKHAR BELLE narrative: 59-year-old female with past medical history of UTI, kidney stones, flank pain, recurrent visits for similar complaints and requesting IV narcotics. She comes in today with complaint of 2 days of right-sided abdominal pain that radiates down to the lower abdomen as well as noticing blood in the urine today. She states she had a fever yesterday of 100. She reports nausea. She states she follows with Dr. Wing for Urology. She states she has had prior UTI but I did review micro from 2019 and on and I see no positive urine cultures. Her last CT scan of the abdomen was a CTA on 05/01/2025 at that time no renal calculi were identified and there was no hydro nephrosis her vasculature was also unremarkable in 2024 alone she had 9 CT scans of her abdomen for the same symptoms. MD elicited complaint: flank pain Pertinent past history: other Onset (ago): day(s) (To) Pain Consistency: constant Location: RUQ Severity: severe Quality: stabbing Radiation: RLQ Migration to: RLQ Exacerbating factors: nothing Relieving factors: nothing Context: history of similar episodes Associated symptoms: nausea, fever, chills and hematuria Related Data Home Medications ?Medication ?Instructions ?Recorded ?Confirmed ascorbic acid (vitamin C) 250 mg 1 tab PO BID 11/26/20 05/01/25 tablet loratadine 10 mg tablet 10 mg PO DAILY 11/26/20 05/01/25 albuterol sulfate 90 mcg/actuation 2 puff inhalation Q4-6H PRN dyspnea 05/01/25 05/01/25 aerosol inhaler (Ventolin HFA) amlodipine 10 mg tablet 10 mg PO DAILY 05/01/25 05/01/25 atorvastatin 10 mg tablet 10 mg PO DAILY 05/01/25 05/01/25 clonazepam 0.5 mg tablet 0.5 mg PO BID PRN anxiety attack 05/01/25 05/01/25 fluoxetine 20 mg capsule 60 mg PO DAILY 05/01/25 05/01/25 gabapentin 300 mg capsule 300 mg PO TID 05/01/25 05/01/25 mirtazapine 45 mg tablet 45 mg PO BEDTIME 05/01/25 05/01/25 prazosin 2 mg capsule 2 mg PO BEDTIME 05/01/25 05/01/25 quetiapine 200 mg tablet 200 mg PO BEDTIME 05/01/25 05/01/25 zolpidem 10 mg tablet 10 mg PO BEDTIME PRN insomnia 05/01/25 05/01/25 Previous Rx's ?Medication ?Instructions ?Recorded acetaminophen 325 mg tablet 975 mg (3 x 325 mg) PO Q6H PRN 05/02/25 pain #10 tabs lidocaine 4 % topical patch 2 patch transdermal DAILY #10 ea 05/02/25 (Lidocaine Pain Relief) cyclobenzaprine 10 mg tablet 10 mg PO TID PRN muscle spasm #20 05/20/25 tabs Allergies Allergy/AdvReac Type Severity Reaction Status Date / Time aspirin (ASA) Allergy Intermediate RASH, Verified 05/20/25 05:24 nausea and vomiting ibuprofen (IBUPROFEN) Allergy Intermediate RASH Verified 05/20/25 05:24 nicotine Allergy Intermediate RASH FROM Verified 05/20/25 05:24 NICOTINE PATCH, nausea and vomiting ketorolac (From TORADOL) Allergy Mild RAPID HR Verified 05/20/25 05:24 AND HIVES haloperidol (From Haldol) Allergy Anaphylaxis Verified 05/20/25 05:24 metoclopramide (From Reglan) Allergy Unknown Verified 05/20/25 05:24 Review of Systems Review of Systems Constitutional : positive Fever, No Chills ENT/Mouth : No sore throat, No Rhinorrhea Eyes: No Swelling, No Redness Cardiovascular : No Chest Pain, No SOB, No Edema Respiratory : No Cough, No Sputum, No Wheezing Gastrointestinal : Positive Nausea, no Vomiting, no Diarrhea, positive abdominal Pain, No Hematochezia, No Melena Genitourinary : No Dysuria, No Urinary Frequency, pos Hematuria, No Urgency Musculoskeletal : No joint pain, No Myalgias, No Joint Swelling Skin : No Skin Lesions, No rash Neuro : No Weakness, No Numbness, No Dizziness, No Headache All other systems reviewed and are negative. [facility] Past Medical History Attestation statement: The following information was validated with the patient. Source: old records reviewed Medical History Drug-seeking behavior delivery delivered HTN (hypertension) Anemia Hypercholesteremia DVT (deep venous thrombosis) Kidney stones Surgical History Total knee replacement status Social History Social History Household Members: None Housing: Apartment Do you presently have visiting nurse or other home services: Yes ([employer]) Alcohol intake: never Patient Tobacco Use Status: Never used Tobacco Smoked in Last 30 Days: No Use of substances other than those prescribed or required for medical reasons: No Substance Use Type: Prescription Drugs Advance Directives: No Advance Directives Information Provided: Yes service: No Physical Exam ED Vital Signs: Vital Signs - 24 hr 05/20/25 05:13 05/20/25 08:00 Temperature 97.9 F Pulse Rate 87 82 Respiratory Rate 18 18 Blood Pressure 124/76 122/70 Pulse Oximetry 100 100 Oxygen Delivery Method Room Air BMI result Body Mass Index 28.0 Appearance: Alert. Oriented X3. No acute distress. Anxious Eyes: Pupils equal, round and reactive to light. ENT: Pharynx normal. Neck: Normal inspection. Neck supple. CVS: Normal heart rate and rhythm. Pulses normal. Respiratory: No respiratory distress. Breath sounds normal. Abdomen: Soft and mild right upper quadrant and right lower quadrant tenderness to palpation, no rebound Skin: Skin warm and dry. Normal skin color. Normal skin turgor. Extremities: No lower extremity edema. No calf ttp Neuro: Oriented X 3. No motor deficit. No sensory deficit. CN2-12 intact Medical Decision Making Medical Decision Making MDM Narrative: 59-year-old female with past medical history of UTI, kidney stones, flank pain, recurrent visits for similar complaints and requesting IV narcotics. She comes in with complaint of fever to 100, hematuria, right-sided abdominal pain radiating down to the groin. On exam I appreciate no rebound, guarding, hernia. At this time are going to avoid IV narcotics given her [employer] as well as recurrent visits for similar complaints that did not result in anything acutely positive. I am going to avoid CT scans given she has had 9 this year alone. We are going to obtain ultrasound of right kidney as well as gallbladder. I have ordered IV Tylenol and IV Valium to treat her pain. Possible recurrent renal colic, biliary colic, chronic pain, UTI. Differential Diagnosis Differential Diagnoses: The differential diagnosis associated with the presentation includes Flank pain, UTI, chronic pain, biliary colic Admission/Observation Consideration of admission/observation: Escalation of care including admission/observation considered At this time her labs and urine are reassuring. She continues to ask for more pain medicine but I do not feel given the workup that it is indicated She can follow up with the urologist and primary care she has passed a p.o. challenge She has no signs of infection on exam her LFTs are normal and there is no obstructing stone Lab Data MDM Lab Attestation statement: I reviewed the patient's lab results. WBC count is at baseline Her urine is not consistent with a UTI 05/20/25 05:30 05/20/25 05:30 Labs: Lab Results 05/20/25 05/20/25 Range/Units 05:30 05:34 WBC 4.1 L (4.8-10.8) X10*3/uL RBC 4.46 (4.20-5.50) X10*6/uL Hgb 11.9 L (12.0-16.0) g/dl Hct 37.3 (37.0-47.0) % MCV 83.6 (80.0-98.0) fL MCH 26.7 L (27.0-33.0) pg MCHC 31.9 (31.0-35.0) g/dl RDW 14.7 (11.0-16.0) % Plt Count 299 (160-400) X10*3/uL MPV 9.0 L (9.4-12.3) fL Immature Gran % (Auto) 0.0 (0.0-0.4) % Neut % (Auto) 40.7 L (45-73) % Lymph % (Auto) 50.4 H (20-40) % Nye % (Auto) 6.2 (2-11) % Eos % (Auto) 2.0 (0-4) % Baso % (Auto) 0.7 (0-2) % Lymph # (Auto) 2.0 (1.2-4.9) X10*3/uL Nye # (Auto) 0.3 (0.1-1.2) X10*3/uL Eos # (Auto) 0.1 (0.0-0.4) X10*3/uL Baso # (Auto) 0.0 (0.0-0.2) X10*3/uL Abs Immat Gran (auto) 0.00 (0.00-0.03) X10*3/uL Absolute Neuts (auto) 1.7 L (2.0-8.3) x10*3/uL Absolute Nucleated RBC 0.000 (0.0-0.012) X10*3/uL Nucleated RBC % (auto) 0.0 (0.0-0.2) /100WBC Sodium 141 (135-145) mmol/L Potassium 3.4 (3.3-5.1) mmol/L Chloride 112 H (96-108) mmol/L Carbon Dioxide 19 L (22-29) mmol/L Anion Gap 13 (12-20) BUN 10 (9-16) mg/dL Creatinine 0.63 (0.5-1.4) mg/dL Estim Creat Clear Calc 83.3 Estimated GFR > 60 Random Glucose 159 H (60-115) mg/dL Calcium 9.0 (8.4-10.2) mg/dL Total Bilirubin 0.2 (0.0-1.0) mg/dL AST 24 (5-31) U/L ALT 18 (0-31) U/L Alkaline Phosphatase 101 (39-117) U/L Total Protein 7.2 (6.5-8.0) g/dL Albumin 4.4 (3.5-5.0) g/dL Lipase 21 (8-78) U/L Urine Color Dark Yellow Urine Appearance Cloudy Urine pH 6.5 (5.0-9.0) Ur Specific Victoria 1.010 (1.005-1.025) Urine Protein 100 (2+) H (Neg-Trace) mg/dL Urine Glucose (UA) Negative (Negative) mg/dL Urine Ketones Negative (Negative) mg/dL Urine Blood Large (3+) H (Negative) Urine Nitrite Negative (Negative) Ur Leukocyte Esterase Trace H (Negative) Urine RBC >20 H (0-2) /HPF Urine WBC 0-5 (0-5) /HPF Ur Squamous Epith Cells 3-5 (0-2) /HPF Urine Bacteria Trace (None Seen) Hyaline Casts 0-2 (0-2) /LPF Independent Interpretation I performed an independent interpretation of an: Ultrasound (No signs of acute pathology) Radiology Impression Discussion of test interpretation with radiology: I have reviewed the radiologist's reading. Independent Historian Clinical information obtained from an independent historian. History obtained from or confirmed by: EMS External Record Review External record reviewed: Inpatient record, Outpatient record, Prior outpatient labs and Prior outpatient radiology Medications Administered Discontinued Medications Generic Name Dose Route Start Last Admin Trade Name Freq PRN Reason Stop Dose Admin Diazepam 5 mg 05/20/25 06:26 05/20/25 06:59 Diazepam 10 Mg/2 Ml Cartridge IVPUSH 05/20/25 06:27 5 mg STAT STA Administration Acetaminophen 1,000 mg in 100 mls @ 400 mls/hr 05/20/25 06:25 05/20/25 08:19 Ofirmev IV 05/20/25 06:39 Infused ONCE ONE Infusion Ondansetron HCl 4 mg 05/20/25 06:25 05/20/25 06:58 Ondansetron Hcl 4 Mg/2 Ml Vial IVPUSH 05/20/25 06:26 4 mg ONCE ONE Administration Discharge Plan Discharge Clinical Impression: Acute flank pain Patient Disposition: Home, Self-Care Instructions: Abdominal Pain (ED) Additional Instructions: There was no acute findings on your labs Your urine did have blood but no signs of infection Your ultrasound showed a small stone in the right kidney but nothing obstructing and that should not be causing your pain given lack of obstruction No stones or inflammation of the gallbladder No other acute findings Please follow up with urologist, return for any worsening symptoms or concerns Stay hydrated Prescriptions: New cyclobenzaprine 10 mg tablet 10 mg PO TID PRN (Reason: muscle spasm) Qty: 20 0RF No Action ascorbic acid (vitamin C) 250 mg tablet 1 tab PO BID loratadine 10 mg tablet 10 mg PO DAILY atorvastatin 10 mg tablet 10 mg PO DAILY clonazepam 0.5 mg tablet 0.5 mg PO BID PRN (Reason: anxiety attack) quetiapine 200 mg tablet 200 mg PO BEDTIME amlodipine 10 mg tablet 10 mg PO DAILY gabapentin 300 mg capsule 300 mg PO TID mirtazapine 45 mg tablet 45 mg PO BEDTIME zolpidem 10 mg tablet 10 mg PO BEDTIME PRN (Reason: insomnia) albuterol sulfate [Ventolin HFA] 90 mcg/actuation HFA aerosol inhaler 2 puff INHALATION Q4-6H PRN (Reason: dyspnea) fluoxetine 20 mg capsule 60 mg PO DAILY prazosin 2 mg capsule 2 mg PO BEDTIME acetaminophen 325 mg Tablet 975 mg PO Q6H PRN (Reason: pain) Qty: 10 0RF lidocaine [Lidocaine Pain Relief] 4 % Adhesive Patch,Medicated 2 patch transdermal DAILY Qty: 10 0RF Protocol: Apply to: Apply to: affected area Print Language: Thai
[2025-05-20] MEDS: diazePAM 10 MG/2 ML CARTRIDGE 5 MG IVPUSH (06:59)
--- NOTE | 2025-05-20 07:22 | PC.NURSE ---
report taken from previous rn. pt is caox4, has just been medicated for pain but is already reporting iv tylenol is not sufficient. she has wpd skin and a strong and regular radial pulse. will reval.
[2025-05-20 08:00] VITALS: BP 122/70; PULSE 82; RESP 18; O2SAT 100
[2025-05-20] MEDS: oxyCODONE HCl Immed Release 5 MG TABLET PO (08:59)
[2025-05-20 09:10] VITALS: BP 122/68; PULSE 78; RESP 16; TEMP 37; O2SAT 98
== END 2025-05-20 09:12 | disposition home or self-care (01) ==
PROVIDERS: Emergency Provider Emergency Medicine
DX: R10.A1 Flank pain, right side (principal); I10 Essential (primary) hypertension; Z87.440 Personal history of urinary (tract) infections; Z87.442 Personal history of urinary calculi; Z88.5 Allergy status to narcotic agent; Z88.6 Allergy status to analgesic agent; Z88.8 Allergy status to other drugs, medicaments and biological substances
CPT/HCPCS: 36415; 76705; 80053; 81001; 83690; 85025; 96365; 96374; 96375; 99284; J0131; J2405; J3360

== ENCOUNTER → 2025-05-20 06:25 | Outpatient (BNV) | payer MEDICAID, SELFPAY | PROVIDERS: Emergency Provider Emergency Medicine; Visit Provider Radiology Diagnostic Radiology | DX: D17.71 Benign lipomatous neoplasm of kidney (principal); N20.0 Calculus of kidney | CPT/HCPCS: 76705 ==

== ENCOUNTER 2025-06-15 07:06 | Emergency (ER) | payer MEDICAID, SELFPAY ==
--- OUTSIDE RECORDS SUMMARY | 2025-06-10 13:00 | XMS_ITS | Encounter Summary ---
Author Organization [employer] Address [address] [place] [address] 7 [place] [address] Care Team Providers Care Director Of Psychiatry Name Role Phone Amber Quiroz MD Primary Care Provider [phone] Fred Parker RN Unavailable [phone] Sherry Herbert Unavailable Reason for Referral * - Authorized Specialty Diagnoses / Procedures Referred By Catalina savage Referred To Contact Procedures CASE PRESENTATION, DETAILED AND EXTENSIVE TREATMENT PLANNING Bob Morel DDS [address] [place] [address] Phone: tel: fax: Referral ID Status Reason Start Date Expiration Date V isits Requested Visits Authorized [id number] Authorized 06/10/2025 06/10/2026 1 1 * - Authorized Specialty Diagnoses / Procedures Referred By Catalina savage Referred To Contact Procedures Max COMPLETE DENTURE - MAXILLARY Bob Morel DDS [address] [place] [address] Phone: tel: fax: Referral ID Status Reason Start Date Expiration Date V isits Requested Visits Authorized [id number] Authorized 06/10/2025 06/10/2026 1 1 * - Authorized Specialty Diagnoses / Procedures Referred By Catalina savage Referred To Contact Procedures Meka COMPLETE DENTURE - MANDIBULAR Bob Morel DDS [address] [place] [address] Phone: tel: fax: Referral ID Status Reason Start Date Expiration Date V isits Requested Visits Authorized [id number] Authorized 06/10/2025 06/10/2026 1 1 * - Authorized Specialty Diagnoses / Procedures Referred By Contac t Referred To Contact Procedures WAX TRY IN Bob Morel DDS [address] [place] [address] Phone: tel: fax: Referral ID Status Reason Start Date Expiration Date V isits Requested Visits Authorized [id number] Authorized 06/10/2025 06/10/2026 1 1 * - Authorized Specialty Diagnoses / Procedures Referred By Contac t Referred To Contact Procedures BITE REGISTRATION Bob Morel DDS [address] [place] [address] Phone: tel: fax: Referral ID Status Reason Start Date Expiration Date V isits Requested Visits Authorized [id number] Authorized 06/10/2025 06/10/2026 1 1 * - Authorized Specialty Diagnoses / Procedures Referred By Contevelyne t Referred To Contact Procedures DENTURE IMPRESSION Bob Morel DDS [address] [place] [address] Phone: tel: fax: Referral ID Status Reason Start Date Expiration Date V isits Requested Visits Authorized [id number] Authorized 06/10/2025 06/10/2026 1 1 Encounter Details Date Type Department Care Team (Late st Contact Info) Description 06/10/2025 1:00 PM EST Office Visit [facility] ADULT DENTAL [address] [place] [address] Bob Morel, DDS [address] [place] [address] Pain, dental (Primary Dx); History of tooth extraction, unspecified edentulism class Social History Tobacco Use Types Packs/Day Years [...] as of this encounter Progress Notes * Ron Kamara - 06/10/2025 1:00 PM EST Patient ID: John Marquez is a 59 y.o. female. Time Out: No data recorded Location: [facility] Tooth: #6, #11, #20, #21, #22, #23, #24, #25, #26, #27, and #29 Procedure: Extraction Verified the above with patient, butcher assistant, and provider. Confirmed via patient's chart, intraorally and by radiographs. Computer Forensics Investigator: not applicable No chief complaint on file. Medical Hx: Vitals: There were no vitals taken for this visit. Medical History[1] Medications: Encounter Medications[2] Consent Obtained: The risks, benefits, indications, potential complications, and alternatives were explained to the patient and informed consent was obtained with good understanding. Treatment Provided: Dental procedures in this visit D7140 - EXTRACTION, ERUPTED TOOTH OR EXPOSED ROOT (ELEVATION/FORCEPS REMOVAL) 11 (Completed) Service provider: Ron Kamara Billing provider: Bob Morel DDS D7140 - EXTRACTION, ERUPTED TOOTH OR EXPOSED ROOT (ELEVATION/FORCEPS REMOVAL) 6 (Completed) Service provider: Ron Kamara Billing provider: Bob Morel DDS D7140 - EXTRACTION, ERUPTED TOOTH OR EXPOSED ROOT (ELEVATION/FORCEPS REMOVAL) 27 (Completed) Service provider: Ron Kamara Billing provider: Bob Morel DDS [id number] - EXTRACTION, ERUPTED TOOTH OR EXPOSED ROOT (ELEVATION/FORCEPS REMOVAL) 29 (Completed) Service provider: Ron Kamara Billing provider: Bob Morel DDS D7140 - EXTRACTION, ERUPTED TOOTH OR EXPOSED ROOT (ELEVATION/FORCEPS REMOVAL) 20 (Completed) Service provider: Ron Kamara Billing provider: Bob Morel DDS D7140 - EXTRACTION, ERUPTED TOOTH OR EXPOSED ROOT (ELEVATION/FORCEPS REMOVAL) 21 (Completed) Service provider: Ron Kamara Billing provider: Bob Morel DDS [id number] - EXTRACTION, ERUPTED TOOTH OR EXPOSED ROOT (ELEVATION/FORCEPS REMOVAL) 22 (Completed) Service provider: Ron Kamara Billing provider: Bob Morel DDS D7140 - EXTRACTION, ERUPTED TOOTH OR EXPOSED ROOT (ELEVATION/FORCEPS REMOVAL) 23 (Completed) Service provider: Ron Kamara Billing provider: Bob Morel DDS [id number] - EXTRACTION, ERUPTED TOOTH OR EXPOSED ROOT (ELEVATION/FORCEPS REMOVAL) 24 (Completed) Service provider: Ron Kamara Billing provider: Bob Morel DDS D7140 - EXTRACTION, ERUPTED TOOTH OR EXPOSED ROOT (ELEVATION/FORCEPS REMOVAL) 25 (Completed) Service provider: Ron Kamara Billing provider: Bob Morel DDS D7140 - EXTRACTION, ERUPTED TOOTH OR EXPOSED ROOT (ELEVATION/FORCEPS REMOVAL) 26 (Completed) Service provider: Ron Kamara Billing provider: Bob Morel DDS [id number] - CASE PRESENTATION, DETAILED AND EXTENSIVE TREATMENT PLANNING (Completed) Service provider: Ron Kamara Billing provider: Bob Morel DDS Diagnosis: Non-restorable teeth. Topical: 20% Benzocaine Anesthesia: 2% Lidocaine (Xylocaine) w/ 1:100,000 epinephrine and 4% Septocaine (Articaine) w/ 1:200,000 epinephrine Number of Cartridges: 6 Injection Type: Buccal infiltration, Palatal infiltration, and Inferior alveolar nerve block Confirmed profound anesthesia. Pharyngeal curtain and bite block placed. Removed tooth with elevators and forceps. Apices intact. Surgical Extraction: N/A Socket curetted & irrigated with sterile water. Compressed alveolar bone. Sutures: None Needed All adjacent teeth intact. Hemostasis achieved. Complications: None Written and verbal post-op instructions given. Patient discharged in stable condition; ambulatory, alert, and oriented. NV: Re-evaluation of extraction sites, preliminary impression for upper and lower dentures. Marketing Information Manager: Ana Dentist: Ron Kamara [1] Past Medical History: Diagnosis Date Anemia Anxiety Asthma Constipation DVT (deep venous thrombosis) ([facility]) H/O total knee replacement Hematuria History of section HTN (hypertension) Panic attack Renal calculi Tubal ligation status done [2] Outpatient Encounter Medications as of 06/10/2025 Medication Sig Dispense Refill Advair Diskus 500-50 MCG/ACT aerosol powder INHALE 1 PUFF BY MOUTH TWICE DAILY 60 each 5 albuterol (Ventolin HFA) 108 (90 Base) MCG/ACT inhaler INHALE 2 PUFFS BY MOUTH EVERY 4 TO 6 HOURS NEEDED FOR DIFFICULTY BREATHING. DO NOT EXCEED 2 PUFFS FOUR TIMES DAILY OR 8 PUFFS IN 24 HOURS. 18g 0 amLODIPine (Norvasc) 10 MG tablet TAKE 1 TABLET BY MOUTH EVERY DAY 90 tablet 1 atorvastatin (Lipitor) 10 MG tablet TAKE 1 TABLET BY MOUTH EVERY DAY 90 tablet 1 Blood Pressure Monitor misc Check BP daily 1 each 0 clonazePAM (KlonoPIN) 0.5 MG tablet TAKE 1 TABLET BY MOUTH TWICE A DAY NEEDED FOR SEVERE ANXIETY FLUoxetine (PROzac) 20 MG capsule TOME ELIZABETH C PSULAS POR V A ORAL TODOS LOS D EN LA [place] RICKY gabapentin (Neurontin) 600 MG tablet TOME 1 TABLETA POR V A ORAL ELIZABETH VECES AL D A loratadine (Claritin) 10 MG tablet TAKE 1 TABLET BY MOUTH EVERY DAY 90 tablet 3 Melatonin 10 MG capsule TOME 1 C PSULA POR V A ORAL TODOS LOS D AL ACOSTARSE mirtazapine (Remeron) 45 MG tablet TOME 1 TABLETA POR V A ORAL TODOS LOS D AL ACOSTARSE ondansetron (Zofran) 4 MG tablet TAKE 1 TABLET BY MOUTH EVERY 8 HOURS NEEDED FOR NAUSEA AND VOMITING 30 tablet 0 topiramate (Topamax) 25 MG tablet TOME BELINDA TABLETA DOS VECES AL D A zolpidem (Ambien) 10 MG tablet TOME BELINDA TABLETA TODOS LOS D AL ACOSTARSE CUANDO SEA NECESARIO FOR INSOMNIA acetaminophen (Tylenol 8 Hour) 650 MG ER tablet TAKE 1 TABLET BY MOUTH EVERY 8 HOURS NEEDED FOR PAIN OR FEVER (Patient not taking: Reported on 06/10/2025) 60 tablet 1 amoxicillin (Amoxil) 500 MG capsule Take 1 capsule (500 mg) by mouth every 12 (twelve) hours for 7 days. 14 capsule 0 ARIPiprazole (Abilify) 2 MG tablet Take 2 mg by mouth. (Patient not taking: Reported on 06/10/2025) [] chlorhexidine (Peridex) 0.12 % solution Use 15 mL in the mouth or throat if needed (for mouthwash 15 ml for 30 seconds, swish and spit) for up to 14 days. 473 mL 0 clonazePAM (KlonoPIN) 1 MG tablet TAKE 1 TABLET BY MOUTH ONCE A DAY NEEDED FOR SEVERE ANXIETY. UP TO 15 TIMES PER MONTH. (Patient not taking: Reported on 06/10/2025) naloxone (Narcan) 4 mg/0.1 mL nasal spray PLEASE SEE ATTACHED FOR DETAILED DIRECTIONS (Patient not taking: Reported on 06/10/2025) potassium chloride ER (Micro-K) 10 MEQ ER capsule TOME BELINDA C PSULA TODOS LOS D POR 7 D (Patient not taking: Reported on 06/10/2025) prazosin (Minipress) 2 MG capsule TOME 1 C PSULA POR V A ORAL TODOS LOS D AL ACOSTARSE (Patient not taking: Reported on 06/10/2025) tamsulosin (Flomax) 0.4 MG 24 hr capsule TAKE 1 CAPSULE BY MOUTH EVERY DAY FOR 14 DAYS. (Patient not taking: Reported on 06/10/2025) traMADol (Ultram) 50 MG tablet TAKE 1 TABLET BY MOUTH EVERY 8 HOURS NEEDED FOR SEVERE PAIN (Patient not taking: Reported on 06/10/2025) 10 tablet 0 No facility-administered encounter medications on file as of 06/10/2025. documented in this encounter Plan of Treatment Upcoming Encounters Date Type Department Care Team (Late st Contact Info) Description 06/25/2025 11:00 AM EST Clinical Support [facility] MED & PEDS [address] [place] [address] Rachelle Lucero, RN [address] [place] [address] 11/04/2025 1:30 PM EDT Office Visit [facility] OPTOMETRY [address] [place] [address] Bernardo, Comfort, OD [address] [place] [address] Scheduled Orders Name Type Priority Associated Diagnoses Orde r Schedule DENTURE IMPRESSION Dental Routine 1 Occu rrences starting 06/10/2025 BITE REGISTRATION Dental Routine 1 Occur rences starting 06/10/2025 WAX TRY IN Dental Routine 1 Occurrences starting 06/10/2025 Meka Meka COMPLETE DENTURE - MANDIBULAR Dental Routine 1 Occurrenc es starting 06/10/2025 Max Max COMPLETE DENTURE - MAXILLARY Dental Routine [address] arting 06/10/2025 documented as of this encounter Procedures Procedure Name Priority Date/Time Associated Diagnosis Comments 26 EXTRACTION, ERUPTED TOOTH OR EXPOSED ROOT (ELEVATION/FORCEPS REMOVAL) Routine 06/10/2025 1:00 PM EST 25 EXTRACTION, ERUPTED TOOTH OR EXPOSED ROOT (ELEVATION/FORCEPS REMOVAL) Routine 06/10/2025 1:00 PM EST 24 EXTRACTION, ERUPTED TOOTH OR EXPOSED ROOT (ELEVATION/FORCEPS REMOVAL) Routine 06/10/2025 1:00 PM EST 23 EXTRACTION, ERUPTED TOOTH OR EXPOSED ROOT (ELEVATION/FORCEPS REMOVAL) Routine 06/10/2025 1:00 PM EST 22 EXTRACTION, ERUPTED TOOTH OR EXPOSED ROOT (ELEVATION/FORCEPS REMOVAL) Routine 06/10/2025 1:00 PM EST 21 EXTRACTION, ERUPTED TOOTH OR EXPOSED ROOT (ELEVATION/FORCEPS REMOVAL) Routine 06/10/2025 1:00 PM EST 20 EXTRACTION, ERUPTED TOOTH OR EXPOSED ROOT (ELEVATION/FORCEPS REMOVAL) Routine 06/10/2025 1:00 PM EST 29 EXTRACTION, ERUPTED TOOTH OR EXPOSED ROOT (ELEVATION/FORCEPS REMOVAL) Routine 06/10/2025 1:00 PM EST 27 EXTRACTION, ERUPTED TOOTH OR EXPOSED ROOT (ELEVATION/FORCEPS REMOVAL) Routine 06/10/2025 1:00 PM EST 6 EXTRACTION, ERUPTED TOOTH OR EXPOSED ROOT (ELEVATION/FORCEPS REMOVAL) Routine 06/10/2025 1:00 PM EST 11 EXTRACTION, ERUPTED TOOTH OR EXPOSED ROOT (ELEVATION/FORCEPS REMOVAL) Routine 06/10/2025 1:00 PM EST CASE PRESENTATION, DETAILED AND EXTENSIVE TREATMENT PLANNING Routine 06/10/2025 1:00 PM EST documented in this encounter Visit Diagnoses Diagnosis Pain, dental- Primary History of tooth extraction, unspecified edentulism class documented in this encounter Additional Health Concerns Assessment Noted Time PHQ-9 Depression Total Score: 9 12/03/19 25 4:14 PM EDT documented as of this encounter Care Teams Director Of Psychiatry Relationship Specialty Start Date End Date Amber Quiroz MD [address] [place] [id number] PCP - General Family Medicine 07/03/18 Fred Parker, RN [address] [place] [id number] Registered Nurse Family Medicine 04/16/25 Sherry Herbert 04/16/25 documented as of this encounter
--- OUTSIDE RECORDS SUMMARY | 2025-06-14 22:27 | XMS_ITS | Continuity of Care Document ---
Author Organization [facility] ter Address [address] [place] [id number]- Care Team Providers Care Drawing Instructor Name Role Phone Marian Frost MD Primary [id number] Date[facility]): [facility]14[facility] - 06/14/[address] [address]- Discharge Disposition: A-D/C Walkout Attending Physician: Not on Staff, Attending MD Admitting Physician: Not on Staff, Admitting MD Referring Physician: Not on Staff, Referring MD Encounter Type: Disch ES Allergies, Adverse Reactions, Alerts Substance Criticality Severity Reaction Reaction Severity Status aspirin Rash Active ketorolac Active Toradol Active Motrin Rash Active Haldol Unable to assess criticality Unknown Active Tylenol Active Reglan Active Immunizations Given and Recorded Vaccine Date Status Refusal Reason pneumococcal 23-valent vaccine 09/21/14 Given Medications Advair Diskus 500 mcg-50 mcg inhalation powder 1, inhalation, Inhalation, Every 12 hours, rinse mouth and throat after use Start Date: 10/27/23 Status: Ordered Medication Dispense Status: Completed Total Allowed Fills: 1 Fills Dispensed: 0 amLODIPine 10 mg oral tablet 1 tablet = 10 mg, By Mouth, Daily, 0 Refills, Maintenance, 12/13/20 4:37:00 AM EDT, Tablet, ; Start Date: 12/13/20 Status: Ordered Medication Dispense Status: Completed Total Allowed Fills: 1 Fills Dispensed: 0 ARIPiprazole 2 mg oral tablet 2 mg, 1, tablet, By Mouth, Daily, # 30 tablet, Refills 0, Maintenance, 10/13/24 11:58:00 AM EDT, Partial fill upon patient request if the prescription is for a schedule II opioid drug. Start Date: 10/13/24 Status: Ordered Medication Dispense Status: Completed Quantity: 30.0 Unit: tablet Total Allowed Fills: 1 Fills Dispensed: 0 atorvastatin 10 mg oral tablet 1 tablet = 10 mg, By Mouth, Daily, 0 Refills, Maintenance, 12/13/20 4:37:00 AM EDT, ; Start Date: 12/13/20 Status: Ordered Medication Dispense Status: Completed Total Allowed Fills: 1 Fills Dispensed: 0 clonazePAM 0.5 mg oral tablet 1 tablet = 0.5 mg, By Mouth, 2 times a day, PRN Anxiety, 0 Refills, Maintenance, 12/13/20 4:37:00 AMEDT, Tablet, ; Start Date: 12/13/20 Status: Ordered Medication Dispense Status: Completed Total Allowed Fills: 1 Fills Dispensed: 0 FLUoxetine 20 mg oral capsule 60 mg, 3, capsule, By Mouth, Daily, Refills 0, Maintenance, 12/13/20 4:37:00 AM EDT, ; Start Date: 12/13/20 Status: Ordered Medication Dispense Status: Completed Total Allowed Fills: 1 Fills Dispensed: 0 gabapentin 300 mg oral capsule 600 mg, 2, capsule, By Mouth, 3 times a day Start Date: 10/13/24 Status: Ordered Medication Dispense Status: Completed Total Allowed Fills: 1 Fills Dispensed: 0 loratadine 10 mg oral tablet 10 mg, 1, tablet, By Mouth, Daily Start Date: 10/27/23 Status: Ordered Medication Dispense Status: Completed Total Allowed Fills: 1 Fills Dispensed: 0 melatonin 10 mg oral capsule 1 capsule = 10 mg, By Mouth, Daily at bedtime, Maintenance, 03/27/25 2:25:00 PM EDT, Partial fill upon patient request if the prescription is for a schedule II opioid drug. Start Date: 03/27/25 Status: Ordered Medication Dispense Status: Completed Total Allowed Fills: 1 Fills Dispensed: 0 mirtazapine 45 mg oral tablet 1 tablet = 45 mg, By Mouth, Daily at bedtime, Maintenance, 03/27/25 2:25:00 PM EDT, Partial fill upon patient request if the prescription is for a schedule II opioid drug. Start Date: 03/27/25 Status: Ordered Medication Dispense Status: Completed Total Allowed Fills: 1 Fills Dispensed: 0 Narcan 4 mg/0.1 mL nasal spray 1 sprays = 4 mg, Nares, Both, Once, PRN As Needed, Maintenance, 03/27/25 2:26:00 PM EDT, Partial fill upon patient request if the prescription is for a schedule II opioid drug. Start Date: 03/27/25 Status: Ordered Medication Dispense Status: Completed Total Allowed Fills: 1 Fills Dispensed: 0 prazosin 2 mg oral capsule 1 capsule = 2 mg, By Mouth, Daily at bedtime, 0 Refills, Maintenance, 10/13/24 11:59:00 AM EDT, Capsule, Partial fill upon patient request if the prescription is for a schedule II opioid drug. Start Date: 10/13/24 Status: Ordered Medication Dispense Status: Completed Total Allowed Fills: 1 Fills Dispensed: 0 SEROquel 200 mg oral tablet 200 mg, 1, tablet, By Mouth, Daily at bedtime, Maintenance, 03/27/25 2:26:00 PM EDT, Partial fill upon patient request if the prescription is for a schedule II opioid drug. Start Date: 03/27/25 Status: Ordered Medication Dispense Status: Completed Total Allowed Fills: 1 Fills Dispensed: 0 topiramate 25 mg oral tablet 1 tablet = 25 mg, By Mouth, 2 times a day Start Date: 10/27/23 Status: Ordered Medication Dispense Status: Completed Total Allowed Fills: 1 Fills Dispensed: 0 Tylenol 325 mg oral tablet 650 mg, 2, tablet, By Mouth, Every 6 hours, PRN, Maintenance, Mild Pain/Fever, 03/27/25 2:26:00 PM EDT, Partial fill upon patient request if the prescription is for a schedule II opioid drug. Start Date: 03/27/25 Status: Ordered Medication Dispense Status: Completed Total Allowed Fills: 1 Fills Dispensed: 0 Ventolin HFA 108 mcg/inh inhalation aerosol with adapter 2 inhalation = 180 mcg, Inhalation, Every 4 hours, PRN Wheezing/Shortness of Breath, DO NOT EXCEED 4 TIMES DAILY Start Date: 10/27/23 Status: Ordered Medication Dispense Status: Completed Total Allowed Fills: 1 Fills Dispensed: 0 Vitamin B-12 500 mcg oral tablet 1 tablet = 500 mcg, By Mouth, Daily, 0 Refills, Maintenance, 12/13/20 4:37:00 AM EDT, Tablet, ; Start Date: 12/13/20 Status: Ordered Medication Dispense Status: Completed Total Allowed Fills: 1 Fills Dispensed: 0 zolpidem 10 mg oral tablet 1 tablet = 10 mg, By Mouth, Daily at bedtime, PRN as needed for insomnia Start Date: 10/27/23 Status: Ordered Medication Dispense Status: Completed Total Allowed Fills: 1 Fills Dispensed: 0 Mental Status Mental Status Assessment Assessment Assessment Component Result Effecti ve Date Atiya coma score total 15 Problem List Condition Confirmation Course Effective Dates Status H ealth Status Informant Anxiety and depression Confirmed Active Asthma Confirmed Active Atypical chest pain Confirmed Active CP (chronic pancreatitis) Confirmed Active Delivery By Elective Caesarean Section Confirmed Active GERD (gastroesophageal reflux disease) Confirmed Active H/O tubal ligation Confirmed Active Hx of renal calculi Confirmed Active Hyperlipidemia Confirmed Active Hypertension Confirmed Active Vital Signs Most recent to oldest [Reference Range]: 1 Height 155 cm (06/14/25: PM) Weight 63.7 kg (06/14/25: PM) Oxygen Saturation [94-100 %] 99 % (06/14/25: PM) Pulse Rate [55-90 bpm] 119 bpm *H* (06/14/25: PM) Body Mass Index [18.5-24.99 kg/m2] 26.51 kg/m2 *H* (06/14/25: PM) Blood Pressure [90-138/55-84 mm Hg] 136/ 105mm Hg (06/14/25: PM) Respiratory Rate [16-30 br/min] 18 br/mi n (06/14/25: PM) Temperature [96.8-100.4 DegF] 97.5 DegF (06/14/25: PM) Mode of Delivery (Oxygen) Room air (06/14/25: PM) Blood pressure sites Arm, left (06/14/25: PM) Temperature Route Oral (06/14/25: PM) Dry Weight 63.7 kg (06/14/25: PM) Weight Obtained Via Patient/family state d (06/14/25: PM) Dry Weight Obtained Via Patient/family s tated (12/13/25 9:26 PM) Social History Social History Type Response Sexual Sexually involved in last 6 months: Yes. Gender identity: Identifies as female. Smoking Status Former smoker, quit more than 30 days ago entered on: 11/12/23 Sex Female Sex Representation Female (finding) Status Not Patient Care team information Care Team Personnel Name: June Damian RN Position: [facility] RN Member Role: Primary Care Nurse Name: Mellissa Palomino RN Position: [facility] RN Member Role: Primary Care Nurse Name: Kelin Downing RN Position: [facility] RN Member Role: Primary Care Nurse Name: Jeana Stanley RN Position: [facility] RN Member Role: Primary Care Nurse Name: Angel Carbajal RN Position: [facility] RN Member Role: Primary Care Nurse Name: Bisi Dwyer RN Position: [facility] RN Member Role: Primary Care Nurse Name: Barbara Ceja RN Position: [facility] RN Member Role: Primary Care Nurse Name: Krupa Zavala RN Position: [facility] RN Member Role: Primary Care Nurse Name: Cherelle Odom RN Position: [facility] RN Member Role: Primary Care Nurse Name: Wai Olson RN Position: [facility] SN RN Member Role: Primary Care Nurse Name: Virginia Dominguez NP Position: [facility] PCO Associate Professional Member Role: Primary Care Nurse Address: [address] [place] [address] Telecom: Name: Audie Driscoll MD Position: [facility] Outreach Member Role: Lifetime Consulting Physician Address: [address] [place] [address] [address] [facility], [place], [place] [address] Telecom: Name: Michelle Carroll RN Position: [facility] RN Member Role: Primary Care Nurse Name: Marimar Villalpando Position: [facility] Outreach Member Role: Lifetime Consulting Physician Name: Serenity Sales RN Position: [facility] RN Member Role: Primary Care Nurse Name: Millie Solomon LPN Position: [facility] RN Member Role: Primary Care Nurse Care Team Related Persons Name: MARISOL RODRIGUES Name: SAVANNA TABARES Insurance Providers Guarantor name: ARABELLA [facility] Plan Information #: 1 Payer: [employer] Payer Identifier: RENNY Member Number: [id number] Group Number: [id number] Subscriber Identifier: [id number] Relationship to Subscriber: self Coverage Type: Self-pay (Includes applicants for insurance and Medicaid applicants) Coverage Verification Date: NA Telecom: RENNY Address: NA
--- NOTE | ~2025-06-15 | CT_ITS ---
CLINICAL HISTORY: right-sided abd pain, GB disease v. renal colic CT abdomen and pelvis without contrast Comparison: CT/REG/SR - CT ABDOMEN PELVIS W IV CON - 04/19/25 05:14 EDT Findings: The lung bases are clear. The gallbladder, Liver, spleen, pancreas, and bilateral adrenal glands are within normal limits. Multiple bilateral punctate intrarenal stones are present measuring up to 3 mm in the right lower pole and 3 mm in the left upper pole. No hydronephrosis, ureteral stones, or hydroureter are identified. No abdominal or pelvic free fluid. No retroperitoneal lymphadenopathy. Aorta is nonaneurysmal. No bowel obstruction, pneumoperitoneum, or pneumatosis. Appendix is normal. Pelvic contents unremarkable. L3 vertebral body hemangioma, unchanged in appearance. No acute or suspicious osseous lesions. IMPRESSION: No acute intra-abdominal or pelvic findings. Multiple bilateral punctate nonobstructing renal calculi measuring up to 3 mm bilaterally. This document has been electronically signed by: Marcelo Salmon MD on 06/15/2025 09:04:08
[2025-06-15 07:16] VITALS: BP 145/92; BP 170/96; PULSE 112; PULSE 98; RESP 20; TEMP 36.6; O2SAT 95; O2SAT 98; BMI 25.3
--- NOTE | 2025-06-15 07:18 | ED.ABDPAIN ---
HPI - Abdominal Pain General Chief Complaint: Abdominal Pain Stated Complaint: ? KIDNEY STONES,BP 176/98 PER EMS Time Seen by Provider: 06/15/25 07:10 Source: patient and EMS Mode of arrival: EMS Limitations: no limitations History of Present Illness ED Provider: DR. Swan HPI narrative: a 59-year-old female with a PMHx of UTI, kidney stone, acute on chronic flank pain, recurrent visit for similar complaints and requesting IV pain medication, patient come in for evaluation of 2 days of right-sided abdominal pain, patient also is complaining of dysuria, hematuria, and frequency urination, normal bowel movement last bowel movement was this morning, passing flatus normally, intra-abdominal surgical history significant for . Patient attempt to go to [facility] this morning and left before been seen To come to [facility] for further evaluation. Related Data Home Medications ?Medication ?Instructions ?Recorded ?Confirmed ascorbic acid (vitamin C) 250 mg 1 tab PO BID 11/26/20 05/01/25 tablet loratadine 10 mg tablet 10 mg PO DAILY 11/26/20 05/01/25 albuterol sulfate 90 mcg/actuation 2 puff inhalation Q4-6H PRN dyspnea 05/01/25 05/01/25 aerosol inhaler (Ventolin HFA) amlodipine 10 mg tablet 10 mg PO DAILY 05/01/25 05/01/25 atorvastatin 10 mg tablet 10 mg PO DAILY 05/01/25 05/01/25 clonazepam 0.5 mg tablet 0.5 mg PO BID PRN anxiety attack 05/01/25 05/01/25 fluoxetine 20 mg capsule 60 mg PO DAILY 05/01/25 05/01/25 gabapentin 300 mg capsule 300 mg PO TID 05/01/25 05/01/25 mirtazapine 45 mg tablet 45 mg PO BEDTIME 05/01/25 05/01/25 prazosin 2 mg capsule 2 mg PO BEDTIME 05/01/25 05/01/25 quetiapine 200 mg tablet 200 mg PO BEDTIME 05/01/25 05/01/25 zolpidem 10 mg tablet 10 mg PO BEDTIME PRN insomnia 05/01/25 05/01/25 Previous Rx's ?Medication ?Instructions ?Recorded acetaminophen 325 mg tablet 975 mg (3 x 325 mg) PO Q6H PRN 05/02/25 pain #10 tabs lidocaine 4 % topical patch 2 patch transdermal DAILY #10 ea 05/02/25 (Lidocaine Pain Relief) cyclobenzaprine 10 mg tablet 10 mg PO TID PRN muscle spasm #20 05/20/25 tabs Allergies Allergy/AdvReac Type Severity Reaction Status Date / Time aspirin (ASA) Allergy Intermediate RASH, Verified 06/15/25 07:18 nausea and vomiting ibuprofen (IBUPROFEN) Allergy Intermediate RASH Verified 06/15/25 07:18 nicotine Allergy Intermediate RASH FROM Verified 06/15/25 07:18 NICOTINE PATCH, nausea and vomiting ketorolac (From TORADOL) Allergy Mild RAPID HR Verified 06/15/25 07:18 AND HIVES acetaminophen Allergy Rash Verified 06/15/25 08:03 haloperidol (From Haldol) Allergy Anaphylaxis Verified 06/15/25 07:18 metoclopramide (From Reglan) Allergy Unknown Verified 06/15/25 07:18 Review of Systems Review of Systems All other systems are reviewed and are negative Constitutional: Reports as per HPI and Reports no additional constitutional complaints Eyes: Reports as per HPI and Reports no additional eye complaints Reports system reviewed and no additional complaints, except as documented Cardiovascular: Reports as per HPI and Reports no additional cardiovascular complaints Respiratory: Reports as per HPI and Reports no additional respiratory complaints Gastrointestinal: Reports as per HPI and Reports no additional gastrointestinal complaints Genitourinary: Reports no additional female genitourinary complaints Musculoskeletal: Reports no additional musculoskeletal complaints Skin/Breast: Reports system reviewed and no additional complaints, except as docu Psychiatric: Reports no additional psychiatric complaints Endocrine: Reports no additional endocrine complaints Hematologic/Lymphatic: Reports no additional hematologic/lymphatic complaints Allergic/Immunologic: Reports no additional allergic/immunologic complaints Reports system reviewed and no additional complaints, except as documented and Reports Abnormal speech present [facility] Past Medical History Medical History Drug-seeking behavior delivery delivered HTN (hypertension) Anemia Hypercholesteremia DVT (deep venous thrombosis) Kidney stones Surgical History Total knee replacement status Social History Social History Household Members: None Housing: Apartment Do you presently have visiting nurse or other home services: Yes (Testin) Alcohol intake: never Patient Tobacco Use Status: Never used Tobacco Smoked in Last 30 Days: No Use of substances other than those prescribed or required for medical reasons: No Substance Use Type: Prescription Drugs Advance Directives: No Advance Directives Information Provided: Yes Do you have a plan to hurt others: No Plan Patient : No service: No Physical Exam ED Vital Signs: Vital Signs - 24 hr 06/15/25 07:16 06/15/25 07:16 Temperature 97.8 F 97.8 F Pulse Rate 112 H 112 H Respiratory Rate 20 20 Blood Pressure 145/92 H 145/92 H Pulse Oximetry 95 95 Oxygen Delivery Method Room Air Room Air BMI result Body Mass Index 25.3 Vital signs have been reviewed and appear to be correct. Blood pressure elevated. Heart rate normal. Respiratory rate normal. Temperature normal. Oxygen saturation normal. Appearance: Alert. Oriented X3. No acute distress. Head: Normal external exam. Normocephalic. Atraumatic. No Kong signs noted. No raccoon eyes noted Eyes: PERRLA. EOMI. Conjunctiva and sclera normal. Eyelids normal. ENT: TM's Normal. Pharynx normal. Uvula midline. Moist mucous membranes. No trismus noted. No drooling noted. No muffled voice noted. Neck: Normal inspection. Neck supple. FROM. No adenopathy. Thyroid Normal. No meningeal signs. No neck mass noted. CVS: Normal heart rate and rhythm. Heart sound normal. No murmurs noted. Pulses normal throughout. Respiratory: No respiratory distress. Painless inspiration. Breath sounds normal. No wheezes/rales/rhonchi noted. Chest nontender. No accessory muscle usage noted or decreased air movement noted. Abdomen: Mild right upper quadrant abdominal tenderness, no rebound tenderness, no guarding. Bowel sounds normal in all 4 quadrants. No distention noted. No organomegaly noted. No visible injury noted. Back: No CVA tenderness. Full range of motion noted. Skin: Skin warm and dry. Normal skin color. Normal skin turgor. No rashes/lesions/lacerations noted. Extremities: No lower extremity edema. Extremities exhibit normal range of motion. Extremities nontender. Neuro: Oriented X 3. Cranial nerve exam: II-XII are grossly intact No motor deficit. No sensory deficit. Reflexes normal. Course Reevaluation(s) Reevaluation #1: Acute exacerbation of chronic abdominal pain, 59-year-old female with multiple ED visit for same complaint and negative workup usually, appears that the patient is in drug-seeking behavior. Patient was instructed to follow-up with PCP. all the workup and a CT of the abdomen and pelvis is unremarkable with no clear underlying cause of patient's chronic symptoms. Time: 09:17 Medical Decision Making Differential Diagnosis Differential Diagnoses: The differential diagnosis associated with the presentation includes ( Cholelithiasis, acute cholecystitis, pancreatitis, colitis, diverticulitis, kidney stone, acute appendicitis, hematuria, UTI, pyelonephritis.) Admission/Observation Consideration of admission/observation: Escalation of care including admission/observation considered Lab Data MDM Lab Attestation statement: I reviewed the patient's lab results. 06/15/25 07:24 06/15/25 07:24 Labs: Lab Results 06/15/25 06/15/25 Range/Units 07:24 07:26 WBC 5.3 (4.8-10.8) X10*3/uL RBC 4.79 (4.20-5.50) X10*6/uL Hgb 12.8 (12.0-16.0) g/dl Hct 39.7 (37.0-47.0) % MCV 82.9 (80.0-98.0) fL MCH 26.7 L (27.0-33.0) pg MCHC 32.2 (31.0-35.0) g/dl RDW 14.2 (11.0-16.0) % Plt Count 278 (160-400) X10*3/uL MPV 9.3 L (9.4-12.3) fL Immature Gran % (Auto) 0.0 (0.0-0.4) % Neut % (Auto) 39.5 L (45-73) % Lymph % (Auto) 48.2 H (20-40) % [place] % (Auto) 9.3 (2-11) % Eos % (Auto) 2.6 (0-4) % Baso % (Auto) 0.4 (0-2) % Lymph # (Auto) 2.6 (1.2-4.9) X10*3/uL [place] # (Auto) 0.5 (0.1-1.2) X10*3/uL Eos # (Auto) 0.1 (0.0-0.4) X10*3/uL Baso # (Auto) 0.0 (0.0-0.2) X10*3/uL Abs Immat Gran (auto) 0.00 (0.00-0.03) X10*3/uL Absolute Neuts (auto) 2.1 (2.0-8.3) x10*3/uL Absolute Nucleated RBC 0.000 (0.0-0.012) X10*3/uL Nucleated RBC % (auto) 0.0 (0.0-0.2) /100WBC Sodium 144 (135-145) mmol/L Potassium 4.0 (3.3-5.1) mmol/L Chloride 109 H (96-108) mmol/L Carbon Dioxide 24 (22-29) mmol/L Anion Gap 15 (12-20) BUN 5 L (9-16) mg/dL Creatinine 0.60 (0.5-1.4) mg/dL Estim Creat Clear Calc 93.3 Estimated GFR > 60 Random Glucose 138 H (60-115) mg/dL Calcium 9.4 (8.4-10.2) mg/dL Magnesium 1.9 (1.6-2.6) mg/dL Total Bilirubin 0.2 (0.0-1.0) mg/dL Direct Bilirubin < 0.2 (0.0-0.5) mg/dL AST 31 (5-31) U/L ALT 15 (0-31) U/L Alkaline Phosphatase 106 (39-117) U/L Total Protein 7.8 (6.5-8.0) g/dL Albumin 4.7 (3.5-5.0) g/dL Lipase 26 (8-78) U/L Beta HCG, Quant < 2 mIU/mL Urine Color Yellow Urine Appearance Cloudy Urine pH 8.0 (5.0-9.0) Ur Specific [place] 1.010 (1.005-1.025) Urine Protein Negative (Neg-Trace) mg/dL Urine Glucose (UA) Negative (Negative) mg/dL Urine Ketones Negative (Negative) mg/dL Urine Blood Negative (Negative) Urine Nitrite Negative (Negative) Ur Leukocyte Esterase Negative (Negative) Independent Interpretation I performed an independent interpretation of an: CT Scan ( Abdomen pelvis: No acute intra-abdominal pathology.) Radiology Impression Discussion of test interpretation with radiology: I have reviewed the radiologist's reading. Medications Administered Discontinued Medications Generic Name Dose Route Start Last Admin Trade Name Kim PRN Reason Stop Dose Admin Al Hydroxide/Mg Hydroxide 30 ml 06/15/25 07:15 06/15/25 07:34 Magnesium Hydrox/Alum Hydrox 30 Ml Oral.Susp PO 06/15/25 07:16 30 ml ONCE ONE Administration Famotidine 20 mg 06/15/25 07:15 06/15/25 07:40 Famotidine/Pf 20 Mg/2 Ml Vial IVPUSH 06/15/25 07:16 20 mg ONCE ONE Administration Acetaminophen 1,000 mg in 100 mls @ 400 mls/hr 06/15/25 07:15 06/15/25 07:39 Ofirmev IV 06/15/25 07:29 Not Given ONCE ONE Iohexol 100 ml 06/15/25 08:04 06/15/25 08:04 Iohexol 350 Mg/Ml 100 Ml Infus..Btl IV 06/15/25 08:05 85 ml ONCE ONE Administration Ondansetron HCl 4 mg 06/15/25 07:15 06/15/25 07:35 Ondansetron Hcl 4 Mg/2 Ml Vial IVPUSH 06/15/25 07:16 4 mg ONCE ONE Administration Discharge Plan Discharge Clinical Impression: Acute exacerbation of chronic abdominal pain Patient Disposition: Home, Self-Care Instructions: Abdominal Pain (ED) Additional Instructions: drink plenty of fluids. Follow-up with your PCP. Prescriptions: No Action ascorbic acid (vitamin C) 250 mg tablet 1 tab PO BID loratadine 10 mg tablet 10 mg PO DAILY atorvastatin 10 mg tablet 10 mg PO DAILY clonazepam 0.5 mg tablet 0.5 mg PO BID PRN (Reason: anxiety attack) quetiapine 200 mg tablet 200 mg PO BEDTIME amlodipine 10 mg tablet 10 mg PO DAILY gabapentin 300 mg capsule 300 mg PO TID mirtazapine 45 mg tablet 45 mg PO BEDTIME zolpidem 10 mg tablet 10 mg PO BEDTIME PRN (Reason: insomnia) albuterol sulfate [Ventolin HFA] 90 mcg/actuation HFA aerosol inhaler 2 puff INHALATION Q4-6H PRN (Reason: dyspnea) fluoxetine 20 mg capsule 60 mg PO DAILY prazosin 2 mg capsule 2 mg PO BEDTIME acetaminophen 325 mg Tablet 975 mg PO Q6H PRN (Reason: pain) Qty: 10 0RF lidocaine [Lidocaine Pain Relief] 4 % Adhesive Patch,Medicated 2 patch transdermal DAILY Qty: 10 0RF Protocol: Apply to: Apply to: affected area cyclobenzaprine 10 mg tablet 10 mg PO TID PRN (Reason: muscle spasm) Qty: 20 0RF Referrals: Amber Quiroz MD [Primary Care Provider, Internal Medicine] Print Language: Dominican
[2025-06-15 07:31] LABS: MANUAL DIFF FLAG NO
[2025-06-15 07:33] LABS: Hematocrit 39.7 % (37.0-47.0); Hemoglobin 12.8 g/dl (12.0-16.0); Imm Gran Abs Auto 0.00 X10*3/uL (0.00-0.03); Imm Gran Pct Auto 0.0 % (0.0-0.4); Lymphocytes Absolute Auto 2.6 X10*3/uL (1.2-4.9); Mean Corpuscular HGB Conc 32.2 g/dl (31.0-35.0); Mean Corpuscular Hemoglobin 26.7 pg (27.0-33.0); Mean Corpuscular Volume 82.9 fL (80.0-98.0); NRBC Abs Auto 0.000 X10*3/uL (0.0-0.012); NRBC Pct Auto 0.0 /100WBC (0.0-0.2); Platelet Count 278 X10*3/uL (160-400); Red Blood Count 4.79 X10*6/uL (4.20-5.50); White Blood Count 5.3 X10*3/uL (4.8-10.8)
[2025-06-15] MEDS: Magnesium Hydrox/Alum Hydrox 30 ML ORAL.SUSP PO (07:34)
[2025-06-15 07:39] LABS: Appearance Urine Cloudy; Glucose Urine UA Negative (Negative); PH 8.0 (5.0-9.0); Specific Gravity - Urine 1.010 (1.005-1.025)
[2025-06-15 07:52] LABS: Alanine Aminotransferase 15 U/L (0-31); Albumin Level 4.7 g/dL (3.5-5.0); Alkaline Phosphatase 106 U/L (39-117); Anion Gap 15 (12-20); Aspartate Amino Transferase 31 U/L (5-31); Blood Urea Nitrogen 5 mg/dL (9-16); Calcium 9.4 mg/dL (8.4-10.2); Carbon Dioxide 24 mmol/L (22-29); Chloride 109 mmol/L (96-108); Creatinine Clr Calc Pharmacy 93.3; Estimated Glomerular Filt Rate > 60; Lipase 26 U/L (8-78); Magnesium 1.9 mg/dL (1.6-2.6); Potassium 4.0 mmol/L (3.3-5.1); Sodium 144 mmol/L (135-145); Total Protein 7.8 g/dL (6.5-8.0)
[2025-06-15] MEDS: iohexoL 350 MG/ML 100 ML INFUS..BTL IV (08:04)
--- OUTSIDE RECORDS SUMMARY | 2025-06-15 08:14 | XMS_ITS ---
Author Organization [employer] Address [address] [facility] 7 [place] [address] Care Team Providers Care Oncology Admin Name Role Phone Amber Quiroz MD Primary Care Provider [phone] Fred Parker RN Unavailable [phone] Sherry Herbert Unavailable CHW Complex Status:Outreach In Progress (Enrolling) Start date:04/16/2025 Enrollment reason:ADT Feed Overview ADT-[facility] ED 04/15/25 Case Team Name Relationship Phone Sherry Herbert(Responsible Staff) Continued Care and Services Coordination
--- OUTSIDE RECORDS SUMMARY | 2025-06-15 08:14 | XMS_ITS ---
Author Organization [employer] Address [address] [facility] 7 [place] [address] Care Team Providers Care Sewer And Inspector Name Role Phone Amber Quiroz MD Primary Care Provider [phone] Fred Parker RN Unavailable Sherry Herbert Unavailable CM Complex Status:Outreach In Progress (Enrolling) Start date:04/16/2025 Enrollment reason:ADT Feed Overview ADT-[facility] ED 04/15/25 Case Team Name Relationship Phone Fred Parker RN(Responsible Staff) Registered Jeremie salgado [phone] Continued Care and Services Coordination
--- OUTSIDE RECORDS SUMMARY | 2025-06-15 08:15 | XMS_ITS | Encounter Summary ---
Author Organization [employer] Address [address] [place] [address] Care Team Providers Care Sports Team Manager Name Role Phone Amber Quiroz MD Primary Care Provider Encounter Details Date Type Department Care Team (Late st Contact Info) Description 09/25/2024 Lab Requisition [facility] - Main Lab [address] [facility] [place] [address] Zachery Chi, PUJA [address] [place] [id number] Calculus of ureter Social History Tobacco Use [...] ult [facility] [address] [place] [address], documented in this encounter Visit Diagnoses Diagnosis Calculus of ureter documented in this encounter Care Teams Sports Team Manager Relationship Specialty Start Date End Date Amber Quiroz MD [address] [place] [id number] PCP - General Family Medicine 05/13/25 documented as of this encounter
--- OUTSIDE RECORDS SUMMARY | 2025-06-15 08:15 | XMS_ITS | Encounter Summary ---
Author Organization [employer] Address [address] [place] [address] 7 [place] [address] Care Team Providers Care Customs Appraiser Name Role Phone Amber Quiroz MD Primary Care Provider [phone] Fred Parker RN Unavailable Sherry Herbert Unavailable Reason for Visit * Reason Comments Med Refill Encounter Details Date Type Department Care Team (Late st Contact Info) Description 11/29/2023 Refill [facility] MEDICINE [address] [place], [place] [phone] Charleen Latif MD [address] [place], [place] [phone] Nephrolithiasis Social History Tobacco Use Types Packs/Day [...] Description 06/25/2025 11:00 AM EST Clinical Support [facility] CHC MED & PEDS [address] [place] [address] Rachelle Lucero RN [address] [place] [address] 11/04/2025 1:30 PM EDT Office Visit [facility] OPTOMETRY [address] [place] [address] Bernardo, Comfort, OD [address] [place] [address] documented as of this encounter Visit Diagnoses Diagnosis Nephrolithiasis Calculus of kidney documented in this encounter Care Teams Customs Appraiser Relationship Specialty Start Date End Date Amber Quiroz MD [address] [place] [address] PCP - General Family Medicine 07/03/18 Fred Parker, RN [address] [place] [address] Registered Nurse Family Medicine 04/16/25 Sherry Herbert 04/16/25 documented as of this encounter
--- OUTSIDE RECORDS SUMMARY | 2025-06-15 08:15 | XMS_ITS | Encounter Summary ---
Author Organization [employer] Address [address] [facility] 7t [place] [address] Care Team Providers Care Brush Stainer Name Role Phone Amber Quiroz MD Primary Care Provider [phone] Fred Parker RN Unavailable [phone] Sherry Herbert Unavailable Reason for Visit * Reason Comments Med Refill Encounter Details Date Type Department Care Team (Late st Contact Info) Description 05/12/2025 Refill [facility] CHC MED & PEDS [address] [place], [place] [phone] Amber Quiroz MD [address] [place], [place] [phone] Flank pain; History of total knee replacement, [...] Telephone Encounter - Rachelle Lucero RN - 05/15/2025 2:49 PM EST Fyi. REDMAN to pt via S ID# [id number]. Pt reminded again of the importance of keeping [facility]ER appointment. R/s for 06/19/25 @1pm at [facility]. Pt informed this life insurance underwriter has limited availability at [facility] for last minute appointments. Pt stated she will have her daughter bring her to the appointment on 06/19 at [facility]. Initial [facility]ER appointment was schedule at [facility]. * Telephone Encounter - Rachelle Lucero RN - 05/15/2025 11:39 AM EST Pt has been calling for Tramadol refill. No showed again to initial [facility] appointment today. No refills? Also Oxycodone 5mg qty 12 was sent today by dentist, Bob Morel. Pt has a f/u with you on 05/26. Please advise. documented in this encounter Plan of Treatment Upcoming Encounters Date Type Department Care Team ([facility] st Contact Info) Description 06/25/2025 11:00 AM EST Clinical Support [facility] CHC MED & PEDS [address] [place] [address] Rachelle Lucero RN [address] [place] [address] 11/04/2025 1:30 PM EDT Office Visit [facility] OPTOMETRY [address] [place] [address] Comfort Chang, OD [address] [place] [address] documented as of this encounter Visit Diagnoses Diagnosis Flank pain Abdominal pain, unspecified site History of total knee replacement, unspecified laterality Primary osteoarthritis of left knee Loin pain hematuria syndrome Chronic back pain, unspecified back location, unspecified back pain laterality documented in this encounter Additional Health Concerns Assessment Noted Time PHQ-9 Depression Total Score: 9 12/03/19 25 4:14 PM EDT documented as of this encounter Care Teams Brush Stainer Relationship Specialty Start Date End Date Amber Quiroz MD [address] [place] [address] PCP - General Family Medicine 07/03/18 Fred Parker RN [address] [place] [address] Registered Nurse Family Medicine 04/16/25 Sherry Herbert 04/16/25 documented as of this encounter
--- OUTSIDE RECORDS SUMMARY | 2025-06-15 08:15 | XMS_ITS | Encounter Summary ---
Author Organization [employer] Address [address] [facility] 7t [place] [address] Care Team Providers Care Information Systems Security Manager Name Role Phone Amber Quiroz MD Primary Care Provider [phone] Fred Parker RN Unavailable [phone] Sherry Herbert Unavailable Reason for Visit * Reason Onset Date Comments Appointment Request 11/22/2023 Encounter Details Date Type Department Care Team (Late st Contact Info) Description 11/22/2023 Telephone [facility] MEDICINE [address] [place] [address] Amber Quiroz MD [address] [place], [place] [phone] Appointment Request Social History Tobacco Use Types [...] due tosleep difficulty. Please contact pt at [phone]. documented in this encounter Plan of Treatment Upcoming Encounters Date Type Department Care Team (Late st Contact Info) Description 06/25/2025 11:00 AM EST Clinical Support [facility] CHC MED & PEDS [address] [place] [address] Rachelle Lucero RN [address] [place], [place] 11/04/2025 1:30 PM EDT Office Visit [facility] OPTOMETRY [address] [place] [address] Comfort Chang, OD [address] [place] [address] documented as of this encounter Visit Diagnoses Not on filedocumented in this encounter Care Teams Information Systems Security Manager Relationship Specialty Start Date End Date Amber Quiroz MD [address] [place] [address] PCP - General Family Medicine 07/03/18 Fred Parker, RN [address] [place] [address] Registered Nurse Family Medicine 04/16/25 Sherry Herbert 04/16/25 documented as of this encounter
--- OUTSIDE RECORDS SUMMARY | 2025-06-15 08:15 | XMS_ITS | Encounter Summary ---
Author Organization [employer] Address [address] [facility] 7 [place] [address] Care Team Providers Care Front End Technician Name Role Phone Amber Quiroz MD Primary Care Provider [phone] Fred Parker RN Unavailable [phone] Sherry Herbert Unavailable Reason for Referral * Consultation (Routine) - Closed Specialty Diagnoses / Procedures Referred By Catalina savage Referred To Contact Urology Diagnoses Nephrolithiasis Loin pain hematuria syndrome Recurrent urinary tract infection Amber Quiroz MD [address] [place] [address] Phone: tel: fax: [facility] Referral ID Status Reason Start Date Expiration Date V isits Requested Visits Authorized [id number] Closed Specialty Services Required 01/17/2025 01/17/2026 6 6 Encounter Details Date Type Department Care Team (Late st Contact Info) Description 01/17/2025 Orders Only [facility] MEDICINE [address] [place] [address] Amber Quiroz MD [address] [place] [address] Nephrolithiasis (Primary Dx); Loin pain [...] Description 06/25/2025 11:00 AM EST Clinical Support [facility] CHC MED & PEDS [address] [place] [address] Rachelle Lucero, DOROTA [address] [place] [address] 11/04/2025 1:30 PM EDT Office Visit [facility] OPTOMETRY [address] [place], [place] [phone] Comfort Chang, OD [address] [place] [address] Scheduled Referrals Name Type Priority Associated Diagnoses [...] documented as of this encounter Care Teams Front End Technician Relationship Specialty Start Date End Date Amber Quiroz MD [address] [place] [address] PCP - General Family Medicine 07/03/18 Fred Parker, DOROTA [address] [place] [phone] Registered Nurse Family Medicine 04/16/25 Sherry Herbert 04/16/25 documented as of this encounter
--- OUTSIDE RECORDS SUMMARY | 2025-06-15 08:15 | XMS_ITS | Encounter Summary ---
Author Organization [employer] Address [address] [facility] 7 [place] [address] Care Team Providers Care Mortgage Loan Coordinator Name Role Phone Amber Quiroz MD Primary Care Provider [phone] Fred Parker RN Unavailable [phone] Sherry Herbert Unavailable Reason for Visit * Reason Onset Date Comments Dr. Morel oxycodone medication 06/10/2025 Encounter Details Date Type Department Care Team (Late st Contact Info) Description 06/10/2025 Refill [facility] D[facility]AL [address] [place], [place] [phone] Bob Morel DDS [address] [place] [address] Pain, dental; Severe dental caries Social History Tobacco Use Types Packs/Day Years [...] * Telephone Encounter - Raven Jeffers - 06/10/2025 3:23 PM EST Message for Dr. Morel Patient is calling in stating that oxycodone was going to be sent to pharmacy for pain relief. Onlyantibiotic has been sent DR documented in this encounter Plan of Treatment Upcoming Encounters Date Type Department Care Team (Late st Contact Info) Description 06/25/2025 11:00 AM EST Clinical Support [facility] CHC MED & PEDS [address] [place] [address] Rachelle Lucero, DOROTA [address] [place] [address] 11/04/2025 1:30 PM EDT Office Visit [facility] OPTOMETRY [address] [place] [address] Bernardo, Comfort, OD [address] [place] [address] documented as of this encounter Visit Diagnoses Diagnosis Pain, dental Severe dental caries documented in this encounter Additional Health Concerns Assessment Noted Time PHQ-9 Depression Total Score: 9 12/03/19 25 4:14 PM EDT documented as of this encounter Care Teams Mortgage Loan Coordinator Relationship Specialty Start Date End Date Amber Quiroz MD [address] [place] [address] PCP - General Family Medicine 07/03/18 Fred Parker RN [address] [place] [id number] Registered Nurse Family Medicine 04/16/25 Sherry Herbert 04/16/25 documented as of this encounter
--- OUTSIDE RECORDS SUMMARY | 2025-06-15 08:15 | XMS_ITS | Encounter Summary ---
Author Organization [employer] Address [address] [place] [address] 7 [address] [place] [address] Care Team Providers Care Suction Dredge Dumping Supervisor Name Role Phone Amber Quiroz MD Primary Care Provider [phone] Fred Parker RN Unavailable [phone] Sherry Herbert Unavailable Encounter Details Date Type Department Care Team (Late st Contact Info) Description 05/13/2025 Orders Only [facility] 230 [place], [place] [phone] Provider, MD Inez Social History Tobacco Use Types Packs/Day Years [...] Upcoming Encounters Date Type Department Care Team ([facility] st Contact Info) Description 06/25/2025 11:00 AM EST Clinical Support [facility] CHC MED & PEDS 505 [place] [address] Rachelle Lucero, DOROTA 505 [place] [address] 11/04/2025 1:30 PM EDT Office Visit [facility] OPTOMETRY [address] [place] [address] Comfort Chang, OD 230 [place] [address] documented as of this encounter Procedures Procedure Name Priority Date/Time Associated Diagnosis Comments CT ABDOMEN PELVIS W CONTRAST Routine 05/13/2025 11:45 AM EST documented in this encounter Results * CT Abdomen Pelvis w/ Contrast (05/13/2025 11:45 AM EST) Anatomical Region Laterality Modality Body, Pelvis, Abdomen Computed T omography us Historical Provider MD COTTO CT PROCEDURES Final R esult documented in this encounter Visit Diagnoses Not on filedocumented in this encounter Additional Health Concerns Assessment Noted Time PHQ-9 Depression Total Score: 9 12/03/19 25 4:14 PM EDT documented as of this encounter Care Teams Suction Dredge Dumping Supervisor Relationship Specialty Start Date End Date Amber Quiroz MD 230 [place] [address] PCP - General Family Medicine 07/03/18 Fred Parker, RN [address] [facility] [place] [address] Registered Nurse Family Medicine 04/16/25 Sherry Herbert 04/16/25 documented as of this encounter
--- OUTSIDE RECORDS SUMMARY | 2025-06-15 08:15 | XMS_ITS | Encounter Summary ---
Author Organization [employer] Address 75 [facility] 7t [place] [address] Care Team Providers Care Asw/Asuw Tactical Air Controller Name Role Phone Amber Quiroz MD Primary Care Provider [phone] Fred Parker RN Unavailable [phone] Sherry Herbert Unavailable Reason for Visit * Reason Comments Med Refill Encounter Details Date Type Department Care Team (Late st Contact Info) Description 06/01/2023 Refill [facility] MEDICINE 230 [place], [place] [phone] Amber Quiroz MD 230 [place], [place] [phone] Pain Social History Tobacco Use Types Packs/Day [...] Description 06/25/2025 11:00 AM EST Clinical Support [facility] CHC MED & PEDS 505 [place] [address] Rachelle Lucero RN 505 [place] [address] 11/04/2025 1:30 PM EDT Office Visit [facility] OPTOMETRY [address] [place] [address] Bernardo, Comfort, OD 230 [place] [address] documented as of this encounter Visit Diagnoses Diagnosis Pain Generalized pain documented in this encounter Care Teams Asw/Asuw Tactical Air Controller Relationship Specialty Start Date End Date Amber Quiroz MD 230 [place] [address] PCP - General Family Medicine 07/03/18 Fred Parker, RN 505 [place] [address] Registered Nurse Family Medicine 04/16/25 Sherry Herbert 04/16/25 documented as of this encounter
--- OUTSIDE RECORDS SUMMARY | 2025-06-15 08:15 | XMS_ITS | Encounter Summary ---
Author Organization [employer] Address 75 [facility] 7 [place] [address] Care Team Providers Care Trimmer Press Clippings Name Role Phone Amber Quiorz MD Primary Care Provider [phone] Fred Parker RN Unavailable [phone] Sherry Herbert Unavailable Reason for Visit * Reason Onset Date Comments DR BABIN 05/19/2025 Encounter Details Date Type Department Care Team (Late st Contact Info) Description 05/19/2025 Telephone [facility] ADULT DENTAL 230 [place], [place] [phone] Laurita Wilder DDS [address] [place] [address] DR BABIN Social History Tobacco Use Types Packs/Day Years [...] AM EDT documented as of this encounter Functional Status * Over the last 2 weeks, how often have you been bothered by any of the following problems? Question Answer Date of Assessment Author Feeling nervous, anxious, or on edge 3 05/20/2025 1:15 PM Rachelle Randle RN Not being able to stop or co ntrol worrying 2 05/20/2025 1:15 PM Rachelle Randle RN Worrying too much about diff erent things 3 05/20/2025 1:15 PM Rachelle Randle RN Trouble relaxing 3 05/20/2025 1:15 PM Rachelle Lewis RN Being so restless that it is hard to sit still 3 05/20/2025 1:15 PM Rachelle Randle RN Becoming easily annoyed or irritable 0 05/20/2025 1:15 PM Rachelle Randle RN Feeling afraid as if somethi ng awful might happen 1 05/20/2025 1:15 PM Rachelle Randle RN ALTON-7 Total Score 15 05/20/2025 1:15 PM Rachelle Randle RN documented as of this encounter Miscellaneous Notes * Telephone Encounter - Kiera Bey - 05/19/2025 8:21 AM EST PT is calling in to request refill of past medication she's staing she's having pain again. If not able to fill please let pt know so she can come in for an emergency. Thank you documented in this encounter Plan of Treatment Upcoming Encounters Date Type Department Care Team (Late st Contact Info) Description 06/25/2025 11:00 AM EST Clinical Support [facility] CHC MED & PEDS 505 [place] [address] Rachelle Lucero, DOROTA 505 [place] [address] 11/04/2025 1:30 PM EDT Office Visit [facility] OPTOMETRY [address] [place] [address] Bernardo, Comfort, OD 230 [place] [address] documented as of this encounter Visit Diagnoses Not on filedocumented in this encounter Additional Health Concerns Assessment Noted Time PHQ-9 Depression Total Score: 9 12/03/19 25 4:14 PM EDT documented as of this encounter Care Teams Trimmer Press Clippings Relationship Specialty Start Date End Date Amber Quiroz MD 230 [place] [address] PCP - General Family Medicine 07/03/18 Fred Parker, RN 505 [place] [address] Registered Nurse Family Medicine 04/16/25 Sherry Herbert 04/16/25 documented as of this encounter
--- OUTSIDE RECORDS SUMMARY | 2025-06-15 08:15 | XMS_ITS | Encounter Summary ---
Author Organization [employer] Address [address] [place] [address] 7 [place] [address] Care Team Providers Care Returned Goods Sorter Name Role Phone Amber Quiroz MD Primary Care Provider [phone] Fred Parker RN Unavailable [phone] Sherry Herbert Unavailable Encounter Details Date Type Department Care Team (Late st Contact Info) Description 05/22/2025 Orders Only [facility] 230 [place], [place] [phone] Provider, MD Inez Social History Tobacco Use [...] ([facility] st Contact Info) Description 06/25/2025 11:00 AM EST Clinical Support [facility] CHC MED & PEDS 505 [place] [address] Rachelle Lucero, RN 505 [place] [address] 11/04/2025 1:30 PM EDT Office Visit [facility] OPTOMETRY [address] [place] [address] Comfort Chang, OD 230 [place] [address] documented as of this encounter Procedures Procedure Name Priority Date/Time Associated Diagnosis Comments CT ABDOMEN PELVIS WO CONTRAST Routine 05/22/2025 documented in this encounter Results * CT Abdomen Pelvis w/o Contrast (05/22/2025) Anatomical Region Laterality Modality Body, Pelvis, Abdomen Computed T omography us Historical Provider MD COTTO CT PROCEDURES Edited Result - Final documented in this encounter Visit Diagnoses Not on filedocumented in this encounter Additional Health Concerns Assessment Noted Time PHQ-9 Depression Total Score: 9 12/03/19 25 4:14 PM EDT documented as of this encounter Care Teams Returned Goods Sorter Relationship Specialty Start Date End Date Amber Quiroz MD 230 [place] [address] PCP - General Family Medicine 07/03/18 Fred Parker, RN [address] [place] [address] Registered Nurse Family Medicine 04/16/25 Sherry Herbert 04/16/25 documented as of this encounter
--- OUTSIDE RECORDS SUMMARY | 2025-06-15 08:15 | XMS_ITS | Encounter Summary ---
Author Organization [employer] Address [address] [place] [address] 7 [place] [address] Care Team Providers Care Gallery Director Name Role Phone Amber Quiroz MD Primary Care Provider [phone] Fred Parker RN Unavailable [phone] Sherry Herbert Unavailable Encounter Details Date Type Department Care Team (Late st Contact Info) Description 07/28/2022 Orders Only [facility] MEDICINE 230 [place], [place] [phone] Anabell Martinez LPN Social History Tobacco Use [...] Description 06/25/2025 11:00 AM EST Clinical Support [facility] CHC MED & PEDS 505 [place], [place] [phone] Rachelle Lucero, DOROTA 505 [place], [place] [phone] 11/04/2025 1:30 PM EDT Office Visit [facility] OPTOMETRY [address] [place] [address] Comfort Chang, OD 230 [place] [address] documented as of this encounter Procedures Procedure [...] (08/02/2022 12:29 AM EST) Color Urine Yellow [facility] Appearance Urine Turbid [facility] PH 6.5 5.0 - 9.0 [facility] Glucose Urine UA Negative Negative mg/dL [facility] Urine Blood Trace(A) Negative [facility] Specific Goodwin - Urine 1.020 1.005 - 1.025 [facility] Urine Protein 30 (1+)(A) Neg-Trace mg/dL [facility] Urine Ketones Negative Negative mg/dL [facility] Nitrite Urine Negative Negative [facility] Leukocyte Esterase Urine Large (3+)(A) Negative [facility] RBC Urine 0-2 0 - 2 /HPF [facility] Urine WBC >50(A) 0 - 5 /HPF [facility] Urine Squamous Epithelial Cell 6-10 0 - 2 /HPF [facility] Urine Bacteria 1+ None Seen [facility] Hyaline Casts, Urine 3-5 0 - 2 /LPF [facility] 08/02/2022 12:2 9 AM EST 08/02/2022 12:31 AM EST Narrative [facility] - 08/02/2022 12:50 AM EST Urine, Clean Catch [facility] External Provider LAB URI NE ORDERABLES Final Result Performing Organization Address [facility] [place]/[facility] Co de Phone Number [facility] [address] [place] [phone] * SARS-CoV-2 RNA, Influenza A/B, and RSV RNA, Ql NAAT (08/02/2022 12:17 AM EST) Influenza A PCR NEGATIVE Negative [facility] Influenza B PCR NEGATIVE Negative [facility] Resp Syncy Virus RNA Qual PCR NEGATIVE Negative [facility] SARS COV2 PCR NEGATIVE Negative [facility] SARS/Flu/RSV Note See Note [place] [...] use by authorized laboratories.Testing performed on the [employer] GeneXpert utilizingreal-time RT-PCR.All SARS CoV2 and positive influenza A/B results arereported to [facility]. 08/02/2022 12:1 7 AM EST 08/02/2022 12:19 AM EST [facility] Exter nal Provider LAB MICROBIOLOGY - GENERAL ORDERABLES Final Result Performing Organization Address [facility] [place]/[facility] Co de Phone Number [facility] [address] [place] [phone] * (ABNORMAL) Basic Metabolic Panel (08/02/2022 12:17 AM EST) Sodium 140 135 - 145 mmol/L [facility] Potassium 3.9 3.3 - 5.1 mmol/L [facility] Chloride 105 96 - 108 mmol/L [facility] Carbon Dioxide 24 22 - 29 mmol/L [facility] Anion Gap 15 12 - 20 [facility] Urea Nitrogen (BUN) 14 9 - 16 mg/dL [facility] Creatinine, Serum 0.75 0.5 - 1.4 mg/dL [facility] Creatinine Clr Calc Pharmacy 71.4 [facility] Comment:Provided height and weight: 162.56 cm,63.503 kg.eGFR (calculated from the MDRD study equation) and eCrCl(calculated from the Cockcroft-Gault equation) are based ondifferent parameters and may not yield comparable results.If eCrCl result is absurd, please check patient'sheight/weight. Estimated Glomerular Filt Rate >60 [facility] Comment:NOTE: For -Am erican individuals, multiply the result by 1.210.Chronic Kidney Disease: Estimated GFR < 60 mL/min/[id number] Kidney Disease: Estimated GFR < 15 mL/min/1.73m2 Glucose 119(H) 60 - 115 mg/dL [facility] Calcium 9.0 8.4 - 10.2 mg/dL [facility] 08/02/2022 12:1 7 AM EST 08/02/2022 12:19 AM EST us [facility] External Provider LAB BLO OD ORDERABLES Final Result [facility] [address] [place] [address] [phone] * (ABNORMAL) CBC auto differential (08/02/2022 12:17 AM EST) White Blood Count 6.4 4.8 - 10.8 X10*3/uL [facility] Red Blood Count 3.96(L) 4.20 - 5.50 X10*6/uL [facility] Hemoglobin 10.8(L) 12.0 - 16.0 g/dl [facility] Hematocrit 33.0(L) 37.0 - 47.0 % [facility] Mean Corpuscular Volume 83.3 80.0 - 98.0 fL [facility] Mean Corpuscular Hemoglobin 27.3 27.0 - 33.0 pg [facility] Mean Corpuscular HGB Conc 32.7 31.0 - 35.0 g/dl [facility] Red Cell Distribution Width 14.2 11.0 - 16.0 % [facility] Platelet Count 202 160 - 400 X10*3/uL [facility] Mean Platelet Volume 9.2(L) 9.4 - 12.3 fL [facility] Neutrophils Percent Auto 68.5 45 - 73 % [facility] Imm Gran Pct Auto 0.2 0.0 - 0.4 % [facility] Lymphocytes Percent Auto 21.9 20 - 40 % [facility] Monocytes Percent Auto 8.6 2 - 11 % [facility] Eosinophils Percent Auto 0.5 0 - 4 % [facility] Basophils Percent Auto 0.3 0 - 2 % [facility] NRBC Pct Auto 0.0 0.0 - 0.2 /100WBC [facility] Neutrophils Absolute Auto 4.4 2.0 - 8.3 x10*3/uL [facility] Imm Gran Abs Auto 0.01 0.00 - 0.03 X10*3/uL [facility] Lymphocytes Absolute Auto 1.4 1.2 - 4.9 X10*3/uL [facility] Monocytes Absolute Auto 0.6 0.1 - 1.2 X10*3/uL [facility] Eosinophils Absolute Auto 0.0 0.0 - 0.4 X10*3/uL [facility] Basophils Absolute Auto 0.0 0.0 - 0.2 X10*3/uL [facility] NRBC Abs Auto 0.000 0.0 - 0.012 X10*3/uL [facility] 08/02/2022 12:1 7 AM EST 08/02/2022 12:19 AM EST [facility] External Provider LAB BLO OD ORDERABLES Final Result Performing Organization Address [place]/[facility]/ZIP Co de Phone Number [facility] [address] [place] [address] [phone] * Culture, Urine, Routine (08/02/2022 12:00 AM EST) 08/02/2022 08/02/2022 7:3 1 AM EST Comment:[facility] Narrative [facility] - 08/03/2022 9:19 AM EST Urine Culture No growth. Specimen Source: Urine clean catch [facility] Exter nal Provider LAB MICROBIOLOGY - GENERAL ORDERABLES Final Result Performing Organization Address [facility] [place]/[facility] Co de Phone Number [facility] [address] [place] [address] [phone] documented in this encounter Visit Diagnoses Not on filedocumented in this encounter Care Teams Gallery Director Relationship Specialty Start Date End Date Amber Quiroz MD 230 [place] [address] PCP - General Family Medicine 07/03/18 Fred Parker, RN [address] [place] [address] Registered Nurse Family Medicine 04/16/25 Sherry Herbert 04/16/25 documented as of this encounter
--- OUTSIDE RECORDS SUMMARY | 2025-06-15 08:15 | XMS_ITS | Encounter Summary ---
Author Organization [employer] Address 75 [facility] 7t [place] [address] Care Team Providers Care Literacy Specialist Name Role Phone Amber Qiuroz MD Primary Care Provider [phone] Fred Parker RN Unavailable [phone] Sherry Herbert Unavailable Reason for Visit * Reason Onset Date Comments Med Refill 01/10/2024 Encounter Details Date Type Department Care Team (Late st Contact Info) Description 01/10/2024 Telephone [facility] MEDICINE 230 [place] [address] Amber Quiroz MD 230 [place], [place] [phone] Med Refill Social History Tobacco Use Types [...] immediate release tablet To be sent to: [facility] - [place], [place] - 230 [facility] documented in this encounter Plan of Treatment Upcoming Encounters Date Type Department Care Team (Late st Contact Info) Description 06/25/2025 11:00 AM EST Clinical Support [facility] CHC MED & PEDS 505 [place] [address] Rachelle Lucero, DOROTA 505 [place] [address] 11/04/2025 1:30 PM EDT Office Visit [facility] OPTOMETRY [address] [place] [address] Comfort Chang, OD 230 [place] [address] documented as of this encounter Visit Diagnoses Not on filedocumented in this encounter Care Teams Literacy Specialist Relationship Specialty Start Date End Date Amber Quiroz MD [address] [place] [address] PCP - General Family Medicine 07/03/18 Fred Parker, DOROTA [address] [place] [address] Registered Nurse Family Medicine 04/16/25 Sherry Herbert 04/16/25 documented as of this encounter
--- OUTSIDE RECORDS SUMMARY | 2025-06-15 08:15 | XMS_ITS | Encounter Summary ---
Author Organization [employer] Address 75 [facility] 7t [place] [address] Care Team Providers Care Insight Leader Name Role Phone Amber Quiroz MD Primary Care Provider [phone] Fred Parker RN Unavailable [phone] Sherry Herbert Unavailable Reason for Visit * Reason Onset Date Comments status of oral surgery appt 11/11/2024 Encounter Details Date Type Department Care Team ([facility] st Contact Info) Description 11/11/2024 Telephone [facility] ADULT DENTAL 505 [place], [place] [phone] Francisco Mohan, TRAY 505 [place], [place] [phone] status of oral surgery appt Social History [...] 11:00 AM EST Clinical Support [facility] CHC MED & PEDS [address] [place] [address] Rachelle Lucero, RN 505 [place] [address] 11/04/2025 1:30 PM EDT Office Visit [facility] OPTOMETRY [address] [place] [address] Comfort Chang, OD 230 [place] [address] documented as of this encounter Visit Diagnoses Not on filedocumented in this encounter Care Teams Insight Leader Relationship Specialty Start Date End Date Amber Quiroz MD 230 [place] [address] PCP - General Family Medicine 07/03/18 Fred Parker, RN [address] [place] [address] Registered Nurse Family Medicine 04/16/25 Sherry Herbert 04/16/25 documented as of this encounter
--- OUTSIDE RECORDS SUMMARY | 2025-06-15 08:15 | XMS_ITS | Encounter Summary ---
Author Organization [employer] Address [address] [facility] [address] 7t [place] [address] Care Team Providers Care Construction Ironworker Name Role Phone Amber Quiroz MD Primary Care Provider [phone] Fred Parker RN Unavailable [phone] Sherry Herbert Unavailable Encounter Details Date Type Department Care Team (Late st Contact Info) Description 12/12/2023 Orders Only [facility] MEDICINE 230 [place], [place] [phone] Amber Quiroz MD 230 [place] [address] Nephrolithiasis (Primary Dx) Social History [...] Description 06/25/2025 11:00 AM EST Clinical Support [facility] CHC MED & PEDS 505 [place] [address] Rachelle Lucero, DOROTA 505 [place] [address] 11/04/2025 1:30 PM EDT Office Visit [facility] OPTOMETRY [address] [place] [address] Comfort Chang, OD 230 [place] [address] documented as of this encounter Visit Diagnoses Diagnosis Nephrolithiasis- Primary Calculus of kidney documented in this encounter Care Teams Construction Ironworker Relationship Specialty Start Date End Date Amber Quiroz MD 230 [place] [address] PCP - General Family Medicine 07/03/18 Fred Parker, RN 505 [place] [address] Registered Nurse Family Medicine 04/16/25 Sherry Herbert 04/16/25 documented as of this encounter
--- OUTSIDE RECORDS SUMMARY | 2025-06-15 08:15 | XMS_ITS | Encounter Summary ---
Author Organization [employer] Address [address] [facility] [address] 7t [place] [address] Care Team Providers Care Prospecting Observer Name Role Phone Amber Quiroz MD Primary Care Provider Fred Parker RN Unavailable [phone] Sherry Herbert Unavailable Encounter Details Date Type Department Care Team (Late st Contact Info) Description 11/24/2023 Telephone [facility] MEDICINE 230 [place] [address] Amber Quiroz MD 230 [place] [address] Social History Tobacco Use Types [...] 06/25/2025 11:00 AM EST Clinical Support [facility] CHC MED & PEDS 505 [place] [address] Rachelle Lucero RN 505 [place] [address] 11/04/2025 1:30 PM EDT Office Visit [facility] OPTOMETRY [address] [place] [address] Comfort Chang, OD 230 [place] [address] documented as of this encounter Visit Diagnoses Not on filedocumented in this encounter Care Teams Prospecting Observer Relationship Specialty Start Date End Date Amber Quiroz MD 230 [place] [address] PCP - General Family Medicine 07/03/18 Fred Parker, DOROTA [address] [place] [address] Registered Nurse Family Medicine 04/16/25 Sherry Herbert 04/16/25 documented as of this encounter
--- OUTSIDE RECORDS SUMMARY | 2025-06-15 08:15 | XMS_ITS | Encounter Summary ---
Author Organization [employer] Address 75 [facility] 7t [place] [address] Care Team Providers Care Shake Feeder Name Role Phone Amber Quiroz MD Primary Care Provider [phone] Fred Parker RN Unavailable [phone] Sherry Herbert Unavailable Encounter Details Date Type Department Care Team (Late st Contact Info) Description 09/04/2024 Orders Only [facility] MEDICINE 230 [place], [place] [phone] Amber Quiroz MD 230 [place] [address] Routine screening for STI (sexually [...] Upcoming Encounters Date Type Department Care Team ([facility] st Contact Info) Description 06/25/2025 11:00 AM EST Clinical Support [facility] CHC MED & PEDS 505 [place] [address] Rachelle Lucero, RN 505 [place] [address] 11/04/2025 1:30 PM EDT Office Visit [facility] OPTOMETRY [address] [place] [address] Bernardo, Comfort, OD [address] [place] [address] Scheduled Orders Name Type Priority Associated Diagnoses [...] disease documented in this encounter Care Teams Shake Feeder Relationship Specialty Start Date End Date Amber Quiroz MD 230 [place] [address] PCP - General Family Medicine 07/03/18 Fred Parker, DOROTA [address] [place] [address] Registered Nurse Family Medicine 04/16/25 Sherry Herbert 04/16/25 documented as of this encounter
--- OUTSIDE RECORDS SUMMARY | 2025-06-15 08:15 | XMS_ITS | Encounter Summary ---
Author Organization [employer] Address [address] [facility] 7t [place] [address] Care Team Providers Care Farm Appraiser Name Role Phone Amber Quiroz MD Primary Care Provider [phone] Fred Parker RN Unavailable [phone] Sherry Herbert Unavailable Reason for Visit * Reason Comments Med Refill Encounter Details Date Type Department Care Team (Late st Contact Info) Description 11/18/[address] [facility] MED & PEDS [address] [place], [place] [phone] Amber Quiroz MD [address] [place], [place] [phone] Nephrolithiasis Social History Tobacco Use Types Packs/Day [...] Description 06/25/2025 11:00 AM EST Clinical Support [facility] MED & PEDS [address] [place] [address] Rachelle Lucero RN [address] [place] [address] 11/04/2025 1:30 PM EDT Office Visit [facility] OPTOMETRY [address] [place] [address] Bernardo, Comfort, OD [address] [place] [address] documented as of this encounter Visit Diagnoses Diagnosis Nephrolithiasis Calculus of kidney documented in this encounter Care Teams Farm Appraiser Relationship Specialty Start Date End Date Amber Quiroz MD [address] [place] [address] PCP - General Family Medicine 07/03/18 Fred Parker, DOROTA [address] [place] [address] Registered Nurse Family Medicine 04/16/25 Sherry Herbert 04/16/25 documented as of this encounter
--- OUTSIDE RECORDS SUMMARY | 2025-06-15 08:15 | XMS_ITS | Encounter Summary ---
Author Organization [employer] Address [address] [facility] 7t [place] [address] Care Team Providers Care Fastener Sewing Machine Operator Name Role Phone Amber Quiroz MD Primary Care Provider [phone] Fred Parker RN Unavailable [phone] Sherry Herbert Unavailable Encounter Details Date Type Department Care Team (Late st Contact Info) Description 03/07/2025 Orders Only [facility] MEDICINE [address] [place], [place] [phone] Amber Quiroz MD [address] [place], [place] [phone] Flank pain (Primary Dx); History of total [...] 11:00 AM EST Clinical Support [facility] MED & PEDS [address] [place] [address] Rachelle Lucero, RN [address] [place] [address] 11/04/2025 1:30 PM EDT Office Visit [facility] OPTOMETRY [address] [place] [address] Comofrt Chang, OD [address] [place] [address] documented as of this encounter Procedures Procedure Name Priority Date/Time Associated Diagnosis Comments CT ABDOMEN PELVIS WO CONTRAST Routine 03/08/2025 1:06 PM EDT documented in this encounter Results * CT Abdomen Pelvis w/o Contrast (03/08/2025 1:06 PM EDT) Anatomical Region Laterality Modality Body, Pelvis, Abdomen Computed T omography 03/08/2025 1:06 PM EDT Narrative 03/08/2025 1:08 PM EDT [address] [address] [address] Scan Report Signed Patient: John Marquez MR#: [id number] : 1965 Acct:[id number] Age/Sex: 59 / F ADM Date: 03/08/25 Loc: HO.ED Attending Dr: Ordering Physician: Kaia [place] Date of Service: 03/08/25 Procedure(s): CT abdomen pelvis wo IV con Accession Number(s): [id number] cc: Kaia [place]; Amber Quiroz MD Report Number: [id number]: Total DLP = 449.00 mGy-cm Reason for Exam: abbd pain, flank pain CLINICAL HISTORY: abbd pain, flank pain CT abdomen and pelvis without contrast Comparison: CT/AK/SR - CT ABDOMEN PELVIS WO IV CON [...] 03/08/25 1307 DD/ 1306 TD/TT: 03/08/25 1306 Cloth Measurer Machine: Procedure Note Donotuseinterpreter, Image - 03/08/[address] [address] [address] Scan Report Signed Patient: Heidi Marquez#: [id number] : 1965Acct:[id number] Age/Sex: 59 / FADM Date: 03/08/25 Loc: HO.ED Attending Dr: Ordering Physician: Kaia [place] Date of Service: 03/08/25 Procedure(s): CT abdomen pelvis wo IV con Accession Number(s): [id number] cc: Kaia [place]; Amber Quiroz MD Report Number: [id number]: Total DLP = 449.00 mGy-cm Reason for Exam: abbd pain, flank pain CLINICAL HISTORY: abbd pain, flank pain CT abdomen and pelvis without contrast Comparison: CT/AK/SR - CT ABDOMEN PELVIS WO IV CON [...] 03/08/25 1307 DD/ 1306 TD/TT: 03/08/25 1306 Cloth Measurer Machine: [facility] External Provider IMG CT PROCEDURES Final [...] documented as of this encounter Care Teams Fastener Sewing Machine Operator Relationship Specialty Start Date End Date Amber Quiroz MD [address] [place] [address] PCP - General Family Medicine 07/03/18 Fred Parker RN [address] [place] [address] Registered Nurse Family Medicine 04/16/25 Sherry Herbert 04/16/25 documented as of this encounter
--- OUTSIDE RECORDS SUMMARY | 2025-06-15 08:15 | XMS_ITS | Encounter Summary ---
Author Organization [employer] Address [address] [facility] 7t [place] [address] Care Team Providers Care Still Operator Whiskey Name Role Phone Amber Quiroz MD Primary Care Provider [phone] Fred Parker RN Unavailable [phone] Sherry Herbert Unavailable Encounter Details Date Type Department Care Team (Late st Contact Info) Description 12/14/2024 Orders Only [facility] MEDICINE [address] [place], [place] [phone] Amber Quiroz MD [address] [place], [place] [phone] Hyperglycemia (Primary Dx); Flank pain; Chronic thoracic [...] Description 06/25/2025 11:00 AM EST Clinical Support [facility] CHC MED & PEDS [address] [place] [address] Rachelle Lucero, RN [address] [place] [address] 11/04/2025 1:30 PM EDT Office Visit [facility] OPTOMETRY [address] [place] [address] BernardoComfort martinez, OD [address] [place] [address] Scheduled Orders Name Type Priority Associated Diagnoses [...] documented as of this encounter Care Teams Still Operator Whiskey Relationship Specialty Start Date End Date Amber Quiroz MD [address] [place] [address] PCP - General Family Medicine 07/03/18 Fred Parker, DOROTA [address] [place] [address] Registered Nurse Family Medicine 04/16/25 Sherry Herbert 04/16/25 documented as of this encounter
--- OUTSIDE RECORDS SUMMARY | 2025-06-15 08:15 | XMS_ITS | Encounter Summary ---
Author Organization [employer] Address [address] [facility] 7 [place] [address] Care Team Providers Care Distribution Designer Name Role Phone Amber Quiroz MD Primary Care Provider Fred Parker RN Unavailable [phone] Sherry Herbert Unavailable Encounter Details Date Type Department Care Team (Late st Contact Info) Description 11/16/2022 Abstract [facility] MEDICINE [address] [place], [place] [phone] Amber Quiroz MD [address] [place], [place] [phone] Social History Tobacco Use Types Packs/Day Years [...] Description 06/25/2025 11:00 AM EST Clinical Support [facility] CHC MED & PEDS [address] [place] [address] Rachelle Lucero, RN [address] [place] [address] 11/04/2025 1:30 PM EDT Office Visit [facility] OPTOMETRY [address] [place], [place] [phone] Comfort Chang, OD [address] [place] [address] documented as of this encounter Visit Diagnoses Not on filedocumented in this encounter Care Teams Distribution Designer Relationship Specialty Start Date End Date Amber Quiroz MD [address] [place], [place] [phone] PCP - General Family Medicine 07/03/18 Fred Parker, DOROTA [address] [place] [address] Registered Nurse Family Medicine 04/16/25 Sherry Herbert 04/16/25 documented as of this encounter
--- OUTSIDE RECORDS SUMMARY | 2025-06-15 08:15 | XMS_ITS | Encounter Summary ---
Author Organization [employer] Address [address] [facility] [address] [place] [address] Care Team Providers Care Rebar Worker Name Role Phone Amber Quiroz MD Primary Care Provider [phone] Fred Parker RN Unavailable [phone] Sherry Herbert Unavailable Reason for Visit * Reason Onset Date Comments Nurse Triage 01/11/2024 Encounter Details Date Type Department Care Team (Late st Contact Info) Description 01/11/2024 Telephone [facility] MEDICINE [address] [place] [address] Amber Quiroz MD [address] [place], [place] [phone] Nurse Triage Social History Tobacco Use Types [...] [facility]. * Telephone Encounter - Lacy Sahni LPN - 01/11/2024 3:31 PM EDT Triage in process. Patient requesting pain medication for kidney stone pain in [facility] 01/07/24-01/08/24. Patient not seeing any stones [...] worse Override Notes: Seen and treated at [facility] known kidney stones wants something for [...] Description 06/25/2025 11:00 AM EST Clinical Support [facility] CHC MED & PEDS [address] [place] [address] Rachelle Lucero, DOROTA [address] [place] [address] 11/04/2025 1:30 PM EDT Office Visit [facility] OPTOMETRY [address] [place] [address] Bernardo, Comfort, OD [address] [place] [address] documented as of this encounter Visit Diagnoses Not on filedocumented in this encounter Care Teams Rebar Worker Relationship Specialty Start Date End Date Amber Quiroz MD [address] [place] [address] PCP - General Family Medicine 07/03/18 Fred Parker, RN [address] [place] [address] Registered Nurse Family Medicine 04/16/25 Sherry Herbert 04/16/25 documented as of this encounter
--- OUTSIDE RECORDS SUMMARY | 2025-06-15 08:15 | XMS_ITS | Encounter Summary ---
Author Organization [employer] Address [address] [facility] 7 [place] [address] Care Team Providers Care Tool And Die Maker Apprentice Name Role Phone Amber Quiroz MD Primary Care Provider [phone] Fred Parker RN Unavailable [phone] Sherry Herbert Unavailable Reason for Visit * Reason Onset Date Comments Med Refill 05/14/2025 Encounter Details Date Type Department Care Team (Late st Contact Info) Description 05/14/2025 Telephone [facility] MEDICINE [address] [place] [address] Amber Quiroz MD [address] [place], [place] [phone] Med Refill Social History Tobacco Use Types [...] encounter Miscellaneous Notes * Telephone Encounter - Anastasia Jarrell - 05/14/2025 1:55 PM EST Tc from requesting a med refill : traMADol (Ultram) [address] Quiroz documented in this encounter Plan of Treatment Upcoming Encounters Date Type Department Care Team (Late st Contact Info) Description 06/25/2025 11:00 AM EST Clinical Support [facility] CHC MED & PEDS [address] [place] [address] Rachelle Lucero, DOROTA [address] [place] [address] 11/04/2025 1:30 PM EDT Office Visit [facility] OPTOMETRY [address] [place], [place] [phone] Comfort Chang, OD 230 [facility] [place] [address] documented as of this encounter Visit Diagnoses Not on filedocumented in this encounter Additional Health Concerns Assessment Noted Time PHQ-9 Depression Total Score: 9 12/03/19 25 4:14 PM EDT documented as of this encounter Care Teams Tool And Die Maker Apprentice Relationship Specialty Start Date End Date Amber Quiroz MD [address] [place] [address] PCP - General Family Medicine 07/03/18 Fred Parker, DOROTA [address] [place] [address] Registered Nurse Family Medicine 04/16/25 Sherry Herbert 04/16/25 documented as of this encounter
--- OUTSIDE RECORDS SUMMARY | 2025-06-15 08:15 | XMS_ITS | Clinical Summary ---
Author Organization [facility] Address [address] [place] [address] Phone Care Team Providers Care Sales Attendant Name Role Phone Amber Quiroz MD Primary Care Provider [phone] Allergies Active Allergy Reactions Criticality Noted Date Comments Aspirin Congestion of the throat 08/21/2024 Haloperidol 05/22/2025 Ibuprofen Swallowing Problem 08/21/2024 Ketorolac 05/22/2025 Acetaminophen Swallowing Problem 08/21/2024 Medications saccharomyces boulardii (FLORASTOR) 250 mg capsule Take 1 capsule (250 mg total) by mouth 2 (two) times a day. 60 capsule 5 07/08/19 26 Active cefpodoxime (VANTIN) 200 mg tablet Take 1 tablet (200 mg total) by mouth 2 (two) times a day for 10 days. 20 each 5 05/22/20 25 Discontinue d(Duplicate order) cefpodoxime (VANTIN) 200 mg tablet Take 1 tablet (200 mg total) by mouth 2 (two) times a day for 10 days. 20 each 5 06/01/20 25 cephalexin (KEFLEX) 500 mg capsule Take 1 capsule (500 mg total) by mouth 4 (four) times a day for 5 days. 20 each 5 06/13/20 25 Active Problems No known active problems Encounters Date Type Department Care Team Description 06/08/2025 12:32 PM EST - 06/08/2025 5:17 PM EST Emergency [facility] Emergency [address] [place] [address] Alirio Page MD Acute flank pain (Primary Dx); Hematuria, unspecified type; Urinary tract infection in female Discharge Disposition: Home or Self Care 05/22/2025 10:50 AM EST - 05/22/2025 4:22 PM EST [facility] Emergency [address] [place] [phone] Simon Dalal MD Right flank pain (Primary Dx) Discharge Disposition: Home or Self Care 05/17/2025 4:35 AM EST - 05/17/2025 8:43 AM EST [facility] Emergency [address] [place] [phone] Francisco Walters MD Goebel, Mathew, MD Pyelonephritis (Primary Dx) Discharge Disposition: Home or Self Care 05/13/2025 5:03 AM EST - 05/13/2025 11:23 AM [facility] Emergency [address] [place] [phone] Felix Martino MD Reid, Oswald George, MD Abnormal urinalysis (Primary Dx); Drug-seeking behavior; Poorly-controlled hypertension; Pyelonephritis; Urinary tract infection with hematuria, site unspecified Discharge Disposition: Home or Self Care 04/18/2025 4:48 PM EDT - 04/18/2025 8:58 PM EDT [facility] Emergency [address] [place] [phone] Teo Holly MD Pyelonephritis (Primary Dx) Discharge Disposition: Home or Self Care from Last 3 Months Surgical History Surgery Date Site/Laterality Comments SECTION JOINT REPLACEMENT Medical History Medical History Date Comments Kidney stones Hypertension Social History Tobacco Use Types Packs/Day Years Used Date Smoking Tobacco: Never Smokeless Tobacco: Never Tobacco Cessation:Counseling Given: Not Answered Alcohol Use Standard Drinks/Week Comments Never 0 (1 standard drink = 0.6 oz pur e alcohol) Comments No Sex and Gender Information Value Date Recorded Sex Assigned at Female 08/21/2024 5:24 PM EST Legal Sex Female 1:51 PM EST Gender Identity Female 08/21/2024 5:15 PM EST Sexual Orientation Straight 08/21/2024 5: 24 PM EST Last Filed Vital Signs Vital Sign Reading Time Taken Comments Blood Pressure 112/74 06/08/2025 2:03 PM EST Pulse 73 06/08/2025 2:03 PM EST Temperature 36.3 C (97.3 F) 06/08/2025 2:03 PM EST Respiratory Rate 18 06/08/2025 2:03 PM EST Oxygen Saturation 95% 06/08/2025 2:03 PM EST Inhaled Oxygen Concentration - - Weight 63.5 kg (140 lb) 05/22/2025 11:06 AM EST Height 154.9 cm (5' 1 ) 05/22/2025 11:06 AM EST Body Mass Index 26.45 05/22/2025 11:06 AM EST Plan of Treatment Health Maintenance Due [...] 05/29/2023 04/03/2023 Depression Screening 07/03/2024 COVID-19 Vaccine ( - 2024- season) 2025 10/24/2024, 08/10/2021, 02/19/2021, Additional history exists Hypertension/CHF/CAD Annual BMP Blood Test 06/08/2026 06/08/2025, 05/22/2025, 05/17/2025, Additional history exists DTaP,Tdap,and Td Vaccines (5 - Td or Tdap) 03/15/2029 03/15/2019, 12/21/2012, 11/05/2012, Additional history exists Hepatitis B Vaccines Completed 11/29/2023, 04/18/2023, 03/22/2023 Pneumococcal Vaccine: 50+ Years Completed 09/03/2024, 04/29/2017, 09/14/2015, Additional history exists Influenza Vaccine Completed 05/13/2025, , 03/22/2023, Additional history exists HIB Vaccines Aged Out [...] Priority Date/Time Associated Diagnosis Comments ECG ANNOTATED 06/10/2025 VAUGHN URINE CULTURE TUBE STAT 06/08/20 25 4:08 PM EST URINALYSIS WITH REFLEX MICROSCOPIC AND CULTURE STAT 06/08/2025 4:08 PM EST URINALYSIS WITH REFLEX MICROSCOPIC AND CULTURE STAT 06/08/2025 4:[address] ABDOMEN PELVIS W CONTRAST STAT 06/08/2025 3:23 PM EST XR CHEST 1 VIEW STAT 06/08/2025 1:39 PM EST ECG 12-LEAD STAT 06/08/2025 1:33 PM EST CBC WITH AUTO DIFFERENTIAL STAT 06/08/2025 1:23 PM EST LIPASE STAT 06/08/2025 1:23 PM EST COMPREHENSIVE METABOLIC PANEL STAT 06/08/2025 1:23 PM EST MAGNESIUM STAT 06/08/2025 1:23 PM EST TROPONIN I HIGH SENSITIVITY STAT 06/08/2025 1:23 PM EST CBC AND DIFFERENTIAL STAT 06/08/2025 1:[address] ABDOMEN PELVIS WO CONTRAST STAT 05/22/2025 12:25 PM EST VAUGHN URINE CULTURE TUBE STAT 05/22/20 12:02 PM EST URINALYSIS WITH REFLEX MICROSCOPIC AND CULTURE STAT 05/22/2025 12:02 PM EST URINALYSIS WITH REFLEX MICROSCOPIC AND CULTURE STAT 05/22/2025 12:02 PM EST CULTURE URINE STAT 05/22/2025 12:02 PM EST CBC WITH AUTO DIFFERENTIAL STAT 05/22/2025 11:39 AM EST COMPREHENSIVE METABOLIC PANEL STAT 05/22/2025 11:39 AM EST CBC AND DIFFERENTIAL STAT 05/22/2025 11:39 AM EST US RETROPERITONEAL LIMITED STAT 05/17/2025 7:03 AM EST DRUG ABUSE SCREEN 8A PANEL, URINE STAT 05/17/2025 6:55 AM EST URINALYSIS WITH REFLEX MICROSCOPIC STAT 05/17/2025 6:07 AM EST URINALYSIS WITH REFLEX MICROSCOPIC STAT 05/17/2025 6:07 AM EST CBC WITH AUTO DIFFERENTIAL STAT 05/17/2025 4:52 AM EST COMPREHENSIVE METABOLIC PANEL STAT 05/17/2025 4:52 AM EST CBC AND DIFFERENTIAL STAT 05/17/2025 4:[address] ABDOMEN PELVIS W CONTRAST STAT 05/13/2025 7:42 AM EST CULTURE URINE STAT 05/13/2025 6:12 AM EST LACTATE, WITH REFLEX STAT 05/13/2025 6:02 AM EST PROTHROMBIN TIME WITH INR STAT 05/13/2025 6:02 AM EST CULTURE BLOOD STAT 05/13/2025 6:02 AM EST CULTURE BLOOD STAT 05/13/2025 6:02 AM EST URINALYSIS WITH REFLEX MICROSCOPIC STAT 05/13/2025 4:46 AM EST URINALYSIS WITH REFLEX MICROSCOPIC STAT 05/13/2025 4:46 AM EST MAGNESIUM STAT Add-on 05/13/2025 4:44 AM EST CBC WITH AUTO DIFFERENTIAL STAT 05/13/2025 4:44 AM EST LIPASE STAT 05/13/2025 4:44 AM EST COMPREHENSIVE METABOLIC PANEL STAT 05/13/2025 4:44 AM EST CBC AND DIFFERENTIAL STAT 05/13/2025 4:44 AM EST URINALYSIS WITH REFLEX MICROSCOPIC STAT 04/18/2025 7:57 [...] EDT from Last 3 Months Results * ECG-Annotated (06/10/2025) us Provider Onbase MD ECG ORDERABLES Final Result * (ABNORMAL) Urinalysis with reflex microscopic and culture (06/08/2025 4:08 PM EST) Only the most recent of2 resultswithin the time period is included. Specific [place] Urine >1.045(H) 1.003 - 1.030 LAB URINALYSIS - AUTOMATED METHOD 06/08/2025 5:13 PM [facility] pH, Urine 6.5 5.0 - 8.0 pH LAB URINALYSIS - AUTOMATED METHOD 06/08/2025 5:13 PM [facility] Leukocytes, Urine Negative Negative LAB URINALYSIS - AUTOMATED METHOD 06/08/2025 5:13 PM [facility] Nitrite, Urine Negative Negative LAB URINALYSIS - AUTOMATED METHOD 06/08/2025 5:13 PM [facility] Protein, Urine Negative <=Trace mg/dL LAB URINALYSIS - AUTOMATED METHOD 06/08/2025 5:13 PM [facility] Glucose, Urine Negative Negative mg/dL LAB URINALYSIS - AUTOMATED METHOD 06/08/2025 5:13 PM [facility] Ketones, Urine Negative Negative mg/dL LAB URINALYSIS - AUTOMATED METHOD 06/08/2025 5:13 PM [facility] Urobilinogen , Urine 0.2 0.2 - 1.0 mg/dL LAB URINALYSIS - AUTOMATED METHOD 06/08/2025 5:13 PM [facility] Bilirubin, Urine Negative Negative LAB URINALYSIS - AUTOMATED METHOD 06/08/2025 5:13 PM [facility] Blood, Urine Negative Negative LAB URINALYSIS - AUTOMATED METHOD 06/08/2025 5:13 PM EST [facility] Urine Urine specimen obtained by clean catch procedure / Unknown Non-blood Collection / Unknown 06/08/2025 4:08 PM EST 06/08/2025 4:47 PM EST us Alirio Page MD LAB URINE ORDERABLES Final Result Performing Organization Address [facility] de Phone Number [facility] [address] [place] [address], [place] [phone] * Vaughn urine culture tube (06/08/2025 4:08 PM EST) Only the most recent of2 resultswithin the time period is included. Extra Tube Hold for add-ons. 06/08/2025 6:02 PM EST [facility] Comment:Auto resulted. Urine Urine specimen obtained by clean catch procedure / Unknown Non-blood Collection / Unknown 06/08/2025 4:08 PM EST 06/08/2025 4:47 PM EST us Alirio Page MD LAB URINE ORDERABLES Final Result Performing Organization Address [facility] de Phone Number [facility] [address] [place] [address], [place] [phone] * CT Abdomen Pelvis w Contrast (06/08/2025 3:23 PM EST) Only the most recent of3 resultswithin the time period is included. Anatomical Region Laterality Modality Body Computed Tomogra phy 06/08/2025 3:31 PM EST Impressions 06/08/2025 3:37 PM EST No acute findings in the abdomen/pelvis. -------- FINAL REPORT -------- Dictated By: CARLOS DORAN Dictated Date: 06/08/2025 15:31 ET Assigned Physician: CARLOS DORAN Reviewed and Electronically Signed By: CARLOS DORAN Signed Date: 06/08/2025 15:37 ET Workstation ID: [id number] Transcribed By: Self Edit Transcribed Date: 06/08/2025 15:31 ET Narrative 06/08/2025 3:37 PM EST PROCEDURE: CT ABDOMEN/PELVIS INDICATION: Left flank pain TECHNIQUE: CT of the abdomen and pelvis following the intravenous administration of 90cc Isovue 370. Multiplanar reformats. The examination was performed utilizing dose reduction techniques. Total DLP 628 COMPARISON: 05/22/2025 FINDINGS: LOWER THORAX: Bibasilar atelectasis. HEPATOBILIARY: No focal liver lesions. No cholelithiasis or biliary duct dilatation. SPLEEN: No splenomegaly. PANCREAS: No focal mass or ductal dilatation. ADRENALS: No nodules. KIDNEYS/URETERS: No hydronephrosis, ureteral calculi, or solid mass. Unchanged multifocal left renal cortical scarring. Punctate bilateral nonobstructive renal calculi are unchanged. PELVIC ORGANS/BLADDER: Uterus and bladder are within normal limits. Small left adnexal cyst is unchanged. PERITONEUM / RETROPERITONEUM: No ascites or free air. No retroperitoneal lymphadenopathy. VESSELS: Portal vein is patent. Abdominal aorta is normal in size GI TRACT: No bowel obstruction or wall thickening. Normal appendix. BONES AND SOFT TISSUES: Small fat-containing periumbilical hernia. Lower lumbar facet arthropathy. No acute fracture. Procedure Note Carlos Doran MD - 06/08/2025 PROCEDURE: CT ABDOMEN/PELVIS INDICATION: Left flank pain TECHNIQUE: CT of the abdomen and pelvis following the intravenousadministration of 90cc Isovue 370. Multiplanar reformats. The examinationwas performed utilizing dose reduction techniques. Total DLP 628 COMPARISON: 05/22/2025 FINDINGS: LOWER THORAX: Bibasilar atelectasis. HEPATOBILIARY: No focal liver lesions. No cholelithiasis or biliary ductdilatation. SPLEEN: No splenomegaly. PANCREAS: No focal mass or ductal dilatation. ADRENALS: No nodules. KIDNEYS/URETERS: No hydronephrosis, ureteral calculi, or solid mass.Unchanged multifocal left renal cortical scarring. Punctate bilateralnonobstructive renal calculi are unchanged. PELVIC ORGANS/BLADDER: Uterus and bladder are within normal limits. Smallleft adnexal cyst is unchanged. PERITONEUM / RETROPERITONEUM: No ascites or free air. No retroperitoneallymphadenopathy. VESSELS: Portal vein is patent. Abdominal aorta is normal in size GI TRACT: No bowel obstruction or wall thickening. Normal appendix. BONES AND SOFT TISSUES: Small fat-containing periumbilical hernia. Lowerlumbar facet arthropathy. No acute fracture. IMPRESSION: No acute findings in the abdomen/pelvis. -------- FINAL REPORT -------- Dictated By: CARLOS DORAN Dictated Date: 06/08/2025 15:31 ET Assigned Physician: CARLOS DORAN Reviewed and Electronically Signed By: CARLOS DORAN Signed Date: 06/08/2025 15:37 ET Workstation ID: [id number] Transcribed By: Self Edit Transcribed Date: 06/08/2025 15:31 ET Alirio Page MD IMG CT PROCEDURES Final Res ult * XR Chest 1 View (06/08/2025 1:39 PM EST) Anatomical Region Laterality Modality Body Radiographic Shy ging 06/08/2025 1:49 PM EST Impressions 06/08/2025 1:51 PM EST FINDINGS/IMPRESSION: Lungs are clear. No pleural effusion or pneumothorax. Cardiac silhouette and bones are normal. -------- FINAL REPORT -------- Dictated By: CARLOS DORAN Dictated Date: 06/08/2025 13:49 ET Assigned Physician: CARLOS DORAN Reviewed and Electronically Signed By: CARLOS DORAN Signed Date: 06/08/2025 13:51 ET Workstation ID: [id number] Transcribed By: Self Edit Transcribed Date: 06/08/2025 13:50 ET Narrative 06/08/2025 1:51 PM EST XR CHEST 1 VIEW INDICATION: Pain TECHNIQUE: XR CHEST 1 VIEW COMPARISON: 09/16/2021 Procedure Note Carlos Doran MD - 06/08/2025 XR CHEST 1 VIEW INDICATION: Pain TECHNIQUE: XR CHEST 1 VIEW COMPARISON: 09/16/2021 IMPRESSION: FINDINGS/IMPRESSION: Lungs are clear. No pleural effusion orpneumothorax. Cardiac silhouette and bones are normal. -------- FINAL REPORT -------- Dictated By: CARLOS DORAN Dictated Date: 06/08/2025 13:49 ET Assigned Physician: CARLOS DORAN Reviewed and Electronically Signed By: CARLOS DORAN Signed Date: 06/08/2025 13:51 ET Workstation ID: [id number] Transcribed By: Self Edit Transcribed Date: 06/08/2025 13:50 ET Alirio Page MD IMG XR PROCEDURES Final Res ult * 12-Lead ECG (06/08/2025 1:33 PM EST) Pathologist [facility] Ventricular Rate ECG 70 BPM GEMUSE Atrial Rate 70 BPM GEMUSE P-R Interval 134 ms GEMUSE QRS Duration 86 ms GEMUSE Q-T Interval 400 ms GEMUSE QTc 432 ms GEMUSE P Wave [place] 4 degrees GEMUSE R [place] 23 degrees GEMUSE T [place] 43 degrees GEMUSE ECG Interpretation Normal sinus rhythm Normal ECG When compared with ECG of 21-AUG-2024 16:34, No significant change was found Confirmed by Jerson ROSE YUFENG ([id number]) on 06/08/2025 5:55:53 PM GEMUSE 06/08/2025 1:33 PM EST 06/08/2025 5:55 PM EST us Alirio Page MD ECG ORDERABLES Final Resul t GEMUSE * Troponin I High Sensitivity (06/08/2025 1:23 PM EST) Pathologist [facility] High Sensitivity Troponin I <3 <=34 ng/L 06/08/2025 2:00 PM EST [facility] Blood Venous blood specimen / Unknown Venipuncture / Unknown 06/08/2025 1:23 PM EST 06/08/2025 1:34 PM EST Alirio Page MD LAB BLOOD ORDERABLES Final Result [facility] [address] [place] [address], * (ABNORMAL) CBC auto differential (06/08/2025 1:23 PM EST) Only the most recent of5 resultswithin the time period is included. WBC 3.2(L) 4.8 - 10.8 K/mcL LAB HEMETOLOGY METHOD 06/08/2025 1:41 PM [facility] RBC 4.20 3.80 - 4.80 M/mcL LAB HEMETOLOGY METHOD 06/08/2025 1:41 PM [facility] Hemoglobin 11.4(L) 11.5 - 16.0 g/dL LAB HEMETOLOGY METHOD 06/08/2025 1:41 PM [facility] Hematocrit 35.3 35.0 - 47.0 % LAB HEMETOLOGY METHOD 06/08/2025 1:41 PM EST [facility] MCV 83.6 79.0 - 98.0 FL LAB HEMETOLOGY METHOD 06/08/2025 1:41 PM [facility] MCH 27.0 27.0 - 32.0 pcg LAB HEMETOLOGY METHOD 06/08/2025 1:41 PM [facility] MCHC 32.3 32.0 - 37.0 g/dL LAB HEMETOLOGY METHOD 06/08/2025 1:41 PM [facility] RDW 14.6 11.0 - 15.0 % LAB HEMETOLOGY METHOD 06/08/2025 1:41 PM [facility] Platelets 227 130 - 400 K/mcL LAB HEMETOLOGY METHOD 06/08/2025 1:41 PM [facility] MPV 9.3 7.0 - 11.0 FL LAB HEMETOLOGY METHOD 06/08/2025 1:41 PM [facility] NRBC 0.0 <1.0 % LAB HEMETOLOGY METHOD 06/08/2025 1:41 PM [facility] NRBC Absolute 0.00 <0.10 K/mcL LAB HEMETOLOGY METHOD 06/08/2025 1:41 PM [facility] Neutrophils Relative 41.2 % LAB HEMETOLOGY METHOD 06/08/2025 1:41 PM [facility] Lymphocytes Relative 47.4 % LAB HEMETOLOGY METHOD 06/08/2025 1:41 PM [facility] Monocytes Relative 7.7 % LAB HEMETOLOGY METHOD 06/08/2025 1:41 PM [facility] Eosinophils Relative 3.1 % LAB HEMETOLOGY METHOD 06/08/2025 1:41 PM [facility] Basophils Relative 0.6 % LAB HEMETOLOGY METHOD 06/08/2025 1:41 PM [facility] Immature Granulocytes Relative 0.0 % LAB HEMETOLOGY METHOD 06/08/2025 1:41 PM [facility] Neutrophils Absolute 1.33(L) 1.50 - 7.00 K/mcL LAB HEMETOLOGY METHOD 06/08/2025 1:41 PM [facility] Lymphocytes Absolute 1.53 1.00 - 5.00 K/mcL LAB HEMETOLOGY METHOD 06/08/2025 1:41 PM [facility] Monocytes Absolute 0.25 0.20 - 1.00 K/mcL LAB HEMETOLOGY METHOD 06/08/2025 1:41 PM [facility] Eosinophils Absolute 0.10 0.00 - 0.50 K/mcL LAB HEMETOLOGY METHOD 06/08/2025 1:41 PM [facility] Basophils Absolute 0.02 0.00 - 0.20 K/mcL LAB HEMETOLOGY METHOD 06/08/2025 1:41 PM EST [facility] Immature Granulocytes Absolute 0.00 0.00 - 0.03 K/mcL LAB HEMETOLOGY METHOD 06/08/2025 1:41 PM EST [facility] Blood Venous blood specimen / Unknown Venipuncture / Unknown 06/08/2025 1:23 PM EST 06/08/2025 1:34 PM EST us Alirio Page MD LAB BLOOD ORDERABLES Final Result Performing Organization Address City/[facility]/ZIP Co de Phone Number [facility] [address] [place] [address], [place] [phone] * Magnesium (06/08/2025 1:23 PM EST) Only the most recent of3 resultswithin the time period is included. Magnesium 1.9 1.9 - 2.6 mg/dL 06/08/2025 2:03 PM EST [facility] Blood Venous blood specimen / Unknown Venipuncture / Unknown 06/08/2025 1:23 PM EST 06/08/2025 1:34 PM EST us Alirio Page MD LAB BLOOD ORDERABLES Final Result Performing Organization Address [facility]/ZIP Co de Phone Number [facility] [address] [place] [address], [place] [phone] * Lipase (06/08/2025 1:23 PM EST) Only the most recent of3 resultswithin the time period is included. Lipase 30 12 - 53 unit/L 06/08/2025 2:03 PM EST [facility] Blood Venous blood specimen / Unknown Venipuncture / Unknown 06/08/2025 1:23 PM EST 06/08/2025 1:34 PM EST us Alirio Page MD LAB BLOOD ORDERABLES Final Result [facility] [address] [place] [address], [place] [phone] * (ABNORMAL) Comprehensive Metabolic Panel (CMP) (06/08/2025 1:23 PM EST) Only the most recent of5 resultswithin the time period is included. Sodium 143 133 - 145 mmol/L 06/08/2025 2:03 PM [facility] Potassium 3.8 3.5 - 5.5 mmol/L 06/08/2025 2:03 PM [facility] Chloride 110 96 - 110 mmol/L 06/08/2025 2:03 PM [facility] CO2 25 21 - 32 mmol/L 06/08/2025 2:03 PM [facility] Anion Gap 8 3 - 11 06/08/2025 2:03 PM [facility] Glucose 109(H) 70 - 100 mg/dL 06/08/2025 2:03 PM [facility] BUN 11 5 - 25 mg/dL 06/08/2025 2:03 PM [facility] Creatinine 0.63 0.50 - 1.10 mg/dL 06/08/2025 2:03 PM [facility] eGFR 102 >=60 mL/min/1. 73m2 06/08/2025 2:03 PM [facility] Comment:Calculation based on the Chronic Kidney Disease Epidemiology Collaboration (CKD-EPI) equation refit without adjustment for race. BUN/Creatinine Ratio 17.5 06/08/2025 2:03 PM [facility] Calcium 8.3(L) 8.5 - 10.5 mg/dL 06/08/2025 2:03 PM [facility] AST (SGOT) 20 10 - 42 unit/L 06/08/2025 2:03 PM [facility] ALT (SGPT) 13 10 - 60 unit/L 06/08/2025 2:03 PM [facility] Alkaline Phosphatase 95 42 - 121 unit/L 06/08/2025 2:03 PM [facility] Total Protein 6.2 6.0 - 8.0 g/dL 06/08/2025 2:03 PM [facility] Albumin 3.9 3.2 - 5.0 g/dL 06/08/2025 2:03 PM [facility] Total Bilirubin 0.3 0.0 - 1.4 mg/dL 06/08/2025 2:03 PM [facility] Blood Venous blood specimen / Unknown Venipuncture / Unknown 06/08/2025 1:23 PM EST 06/08/2025 1:34 PM EST us Alirio Page MD LAB BLOOD ORDERABLES Final Result [facility] [address] [place] [address], * CT Abdomen Pelvis wo Contrast (05/22/2025 12:25 PM EST) Anatomical Region Laterality Modality Body Computed Tomogra phy 05/22/2025 12:5 2 PM EST Impressions 05/22/2025 1:03 PM EST 1. No acute abnormality in the abdomen or pelvis. 2. Nonobstructing punctate bilateral renal calculi. No ureteral calculi. No hydronephrosis. 3. Prominent stool burden throughout the colon. -------- FINAL REPORT -------- Dictated By: Kal Shahid Dictated Date: 05/22/2025 12:52 ET Assigned Physician: Kal Shahid Reviewed and Electronically Signed By: Kal Shahid Signed Date: 05/22/2025 13:03 ET Workstation ID: [id number] Transcribed By: Self Edit Transcribed Date: 05/22/2025 12:59 ET Narrative 05/22/2025 1:03 PM EST PROCEDURE: CT Abdomen and Pelvis without contrast INDICATION: Abdominal pain, acute, no prior medical history TECHNIQUE: CT of the abdomen and pelvis without contrast. Multiplanar reformats. The examination was performed utilizing dose reduction techniques. DLP: 669 mGy/cm COMPARISON: No priors available. FINDINGS: LOWER THORAX: Lung bases are clear. HEPATOBILIARY: No focal liver lesions. No cholelithiasis or biliary duct dilatation. SPLEEN: No splenomegaly. PANCREAS: No focal mass or ductal dilatation. ADRENALS: No nodules. KIDNEYS/URETERS: Nonobstructing punctate bilateral renal calculi. No ureteral calculi. No hydronephrosis. PELVIC ORGANS/BLADDER: Unremarkable. PERITONEUM / RETROPERITONEUM: No ascites or free air. No retroperitoneal lymphadenopathy. VESSELS: Scattered atherosclerotic calcifications throughout the aorta and its major branches. No aneurysm. GI TRACT: Prominent stool burden throughout the colon. Normal caliber appendix. No small bowel obstruction. BONES AND SOFT TISSUES: Scattered degenerative changes seen throughout the bones. Soft tissues are unremarkable. Procedure Note Kal Shahid MD - 05/22/2025 PROCEDURE: CT Abdomen and Pelvis without contrast INDICATION: Abdominal pain, acute, no prior medical history TECHNIQUE: CT of the abdomen and pelvis without contrast. Multiplanarreformats. The examination was performed utilizing dose reductiontechniques. DLP: 669 mGy/cm COMPARISON: No priors available. FINDINGS: LOWER THORAX: Lung bases are clear. HEPATOBILIARY: No focal liver lesions. No cholelithiasis or biliary ductdilatation. SPLEEN: No splenomegaly. PANCREAS: No focal mass or ductal dilatation. ADRENALS: No nodules. KIDNEYS/URETERS: Nonobstructing punctate bilateral renal calculi. Noureteral calculi. No hydronephrosis. PELVIC ORGANS/BLADDER: Unremarkable. PERITONEUM / RETROPERITONEUM: No ascites or free air. No retroperitoneallymphadenopathy. VESSELS: Scattered atherosclerotic calcifications throughout the aorta andits major branches. No aneurysm. GI TRACT: Prominent stool burden throughout the colon. Normal caliberappendix. No small bowel obstruction. BONES AND SOFT TISSUES: Scattered degenerative changes seen throughout thebones. Soft tissues are unremarkable. IMPRESSION: 1. No acute abnormality in the abdomen or pelvis. 2. Nonobstructing punctate bilateral renal calculi. No ureteral calculi.No hydronephrosis. 3. Prominent stool burden throughout the colon. -------- FINAL REPORT -------- Dictated By: Kal Shahid Dictated Date: 05/22/2025 12:52 ET Assigned Physician: aKl Shahid Reviewed and Electronically Signed By: Kal Shahid Signed Date: 05/22/2025 13:03 ET Workstation ID: [id number] Transcribed By: Self Edit Transcribed Date: 05/22/2025 12:59 ET Simon Dalal MD IMG CT PROCEDURES Final Re sult * Culture urine (05/22/2025 12:02 PM EST) Only the most recent of2 resultswithin the time period is included. Culture, Urine 10,000-49,000 CFU/mL Mixed urogenital geovanny, no uropathogens present. Suggest repeat specimen if clinically indicated. 05/23/2025 11:05 AM EST [facility] Urine Urine specimen obtained by clean catch procedure / Unknown Non-blood Collection / Unknown 05/22/2025 12:02 PM EST 05/22/2025 12:39 PM EST Simon Dalal MD LAB MICROBIOLOGY - GENERAL ORDERABLES Final Result [facility] [address] [place] [address], [place] [phone] * US Retroperitoneal Limited (05/17/2025 7:03 AM EST) Anatomical Region Laterality Modality Body Ultrasound 05/17/2025 7:54 AM EST Impressions 05/17/2025 7:58 AM EST Bilateral small echogenic calcifications without any calyxes identified since. Known AML upper pole right kidney. Similar findings were seen on the recent CT abdomen exam 05/13/2025. -------- FINAL REPORT -------- Dictated By: Isaías Fairchild Dictated Date: 05/17/2025 07:54 ET Assigned Physician: Isaías Fairchild Reviewed and Electronically Signed By: Isaías Fairchild Signed Date: 05/17/2025 07:58 ET Workstation ID: [id number] Transcribed By: Self Edit Transcribed Date: 05/17/2025 07:54 ET Narrative 05/17/2025 7:58 AM EST Examination: Ultrasound retroperitoneal Limited. CLINICAL INDICATION: Bilateral flank pain. COMPARISON: CT abdomen pelvis 05/13/2025. TECHNIQUE: Limited imaging of both kidneys was performed. FINDINGS: The right kidney measures 10.5 cm in length with normal cortical thickness. There is a echogenic lesion upper pole measuring 1.4 x 1.5 x 1.6 cm suggestive of AML. No anechoic cyst seen. A small echogenic calcification in mid pole measuring 0.6 x 0.4 x 0.6 cm. There is no hydronephrosis. Left kidney: Left kidney measures 10.6 cm in no normal cortical thickness. This is a nonobstructive echogenic calcification in upper/mid pole measuring 0.6 x 0.4 x 0.6 cm. Limited imaging through the bladder reveals normal bilateral ureteral jets. Procedure Note Isaías Fairchild MD - 05/17/2025 Examination: Ultrasound retroperitoneal Limited. CLINICAL INDICATION: Bilateral flank pain. COMPARISON: CT abdomen pelvis 05/13/2025. TECHNIQUE: Limited imaging of both kidneys was performed. FINDINGS: The right kidney measures 10.5 cm in length with normal corticalthickness. There is a echogenic lesion upper pole measuring 1.4 x 1.5 x1.6 cm suggestive of AML. No anechoic cyst seen. A small echogeniccalcification in mid pole measuring 0.6 x 0.4 x 0.6 cm. There is nohydronephrosis. Left kidney: Left kidney measures 10.6 cm in no normal cortical thickness.This is a nonobstructive echogenic calcification in upper/mid polemeasuring 0.6 x 0.4 x 0.6 cm. Limited imaging through the bladder reveals normal bilateral ureteraljets. IMPRESSION: Bilateral small echogenic calcifications without any calyxes identifiedsince. Known AML upper pole right kidney. Similar findings were seen on therecent CT abdomen exam 05/13/2025. -------- FINAL REPORT -------- Dictated By: Isaías Fairchild Dictated Date: 05/17/2025 07:54 ET Assigned Physician: Isaías Fairchild Reviewed and Electronically Signed By: Isaías Fairchild Signed Date: 05/17/2025 07:58 ET Workstation ID: [id number] Transcribed By: Self Edit Transcribed Date: 05/17/2025 07:54 ET us Francisco Walters MD [facility] PROCEDURES Final Res ult * (ABNORMAL) Drug abuse screen 8a panel, urine (05/17/2025 6:55 AM EST) Amphetamine Screen, Ur Negative Negative LAB CHEMISTRY METHOD 5 7:43 AM [facility] Comment:Certain OTC medicati ons containing ephedrine, phenylephrine, pseudoephedrine and phenylpropanolamine can cause false positive results. Barbiturate Screen, Ur Negative Negative LAB CHEMISTRY METHOD 5 7:43 AM [facility] Benzodiazepine Screen, Ur Positive(A ) Negative LAB CHEMISTRY METHOD 5 7:43 AM [facility] Cocaine Screen, Ur Positive(A ) Negative LAB CHEMISTRY METHOD 5 7:43 AM [facility] Opiate Screen, Ur Positive(A ) Negative LAB CHEMISTRY METHOD 5 7:43 AM [facility] Cannabinoid (THC) Screen, Ur Positive(A ) Negative LAB CHEMISTRY METHOD 5 7:43 AM [facility] Comment:Specimens from patie nts taking pantoprazole sodium (Protonix) have been shown to produce false positive results. Oxycodone Screen, Ur Positive(A ) Negative LAB CHEMISTRY METHOD 5 7:43 AM [facility] Fentanyl, Ur Negative Negative LAB CHEMISTRY METHOD 5 7:43 AM [facility] Urine Urine specimen obtained by clean catch procedure / Unknown Non-blood Collection / Unknown 05/17/2025 6:55 AM EST 05/17/2025 7:13 AM EST Narrative [facility] - 05/17/2025 7:43 AM EST Assay cutoffs: Amphetamines 1000 ng/mL Barbiturates 200 ng/mL Benzodiazepines 200 ng/mL Cocaine 300 ng/mL Fentanyl 1 ng/mL Opiates 300 ng/mL Oxycodone 100 ng/mL THC 50 ng/mL Semi-quantitative assay for screening purposes only. Unconfirmed screening result should not be used for non-medical purposes. *ALTERNATE METHOD CONFIRMATION DONE UPON REQUEST ONLY* us Francisco Walters MD LAB URINE ORDERABLES Final Result [facility] [address] [place] [address], [place] [phone] * (ABNORMAL) Urinalysis with reflex microscopic (05/17/2025 6:07 AM EST) Only the most recent of3 resultswithin the time period is included. Specific [place] Urine 1.024 1.003 - 1.030 LAB URINALYSIS - AUTOMATED METHOD 05/17/2025 7:58 AM [facility] pH, Urine 6.0 5.0 - 8.0 pH LAB URINALYSIS - AUTOMATED METHOD 05/17/2025 7:58 AM [facility] Leukocytes, Urine Small(A) Negative LAB URINALYSIS - AUTOMATED METHOD 05/17/2025 7:58 AM [facility] Nitrite, Urine Negative Negative LAB URINALYSIS - AUTOMATED METHOD 05/17/2025 7:58 AM [facility] Protein, Urine 100(A) <=Trace mg/dL LAB URINALYSIS - AUTOMATED METHOD 05/17/2025 7:58 AM [facility] Glucose, Urine Negative Negative mg/dL LAB URINALYSIS - AUTOMATED METHOD 05/17/2025 7:58 AM [facility] Ketones, Urine Negative Negative mg/dL LAB URINALYSIS - AUTOMATED METHOD 05/17/2025 7:58 AM [facility] Urobilinogen, Urine 1.0 0.2 - 1.0 mg/dL LAB URINALYSIS - AUTOMATED METHOD 05/17/2025 7:58 AM [facility] Bilirubin, Urine Negative Negative LAB URINALYSIS - AUTOMATED METHOD 05/17/2025 7:58 AM [facility] Blood, Urine Large(A) Negative LAB URINALYSIS - AUTOMATED METHOD 05/17/2025 7:58 AM [facility] RBC, Urine 20(H) 0 - 4 /HPF 05/17/2025 7:58 AM [facility] WBC, Urine 10(H) 0 - 4 /HPF 05/17/2025 7:58 AM [facility] Squamous Epithelial, Urine >100(H) 0 - 60 /LPF 05/17/2025 7:58 AM [facility] Bacteria, Urine Negative Negative /HPF 05/17/2025 7:58 AM [facility] Mucus, Urine Moderate None /HPF 05/17/2025 7:58 AM [facility] Urine Urine specimen obtained by clean catch procedure / Unknown Non-blood Collection / Unknown 05/17/2025 6:07 AM EST 05/17/2025 6:32 AM EST us Francisco Walters MD LAB URINE ORDERABLES Final Result [facility] [address] [place] [address], * Lactate, with reflex (05/13/2025 6:02 AM EST) LACTIC ACID 1.2 0.4 - 2.0 mmol/L LAB CHEMISTRY METHOD 05/13/2025 6:43 AM [facility] Blood Venous blood specimen / Unknown Venipuncture / Unknown 05/13/2025 6:02 AM EST 05/13/2025 6:16 AM EST us Felix Martino MD LAB BLOOD ORDERABLES Final Res ult Performing Organization Address City/[facility]/ZIP Co de Phone Number [facility] [address] [place] [address], [place] [phone] * Blood Culture, Peripheral #2 (05/13/2025 6:02 AM EST) Only the most recent of2 resultswithin the time period is included. Culture, Blood No growth at 5 days LAB MICROBIOLOGY METHOD 05/18/2025 8:01 AM EST [facility] Blood Venous blood specimen / Unknown Venipuncture / Unknown 05/13/2025 6:02 AM EST 05/13/2025 6:17 AM EST us Felix Martino MD LAB MICROBIOLOGY - GENERAL ORD ERABLES Final Result Performing Organization Address [facility] Co de Phone Number [facility] [address] [place] [address], [place] [phone] * Prothrombin time with INR (05/13/2025 6:02 AM EST) Protime 12.0 10.6 - 13.9 sec LAB COAGULATION METHOD 05/13/2025 6:26 AM EST [facility] INR 1.0 LAB COAGULATION METHOD 05/13/2025 6:26 AM EST [facility] Blood Venous blood specimen / Unknown Venipuncture / Unknown 05/13/2025 6:02 AM EST 05/13/2025 6:17 AM EST us Felix Martino MD LAB BLOOD ORDERABLES Final Res ult Performing Organization Address City/[facility]/ZIP Co de Phone Number [facility] [address] [place] [address], from Last 3 Months Insurance [employer] LEANN ANA L[place] [id number] MEDICA[place] - [place] Care Teams Sales Attendant Relationship Specialty Start Date End Date Amber Quiroz MD [address] [place] [phone] PCP - General Family Medicine 05/13/25
--- OUTSIDE RECORDS SUMMARY | 2025-06-15 08:16 | XMS_ITS | Encounter Summary ---
Author Organization [employer] Address [address] [place] [address] 7 [place] [address] Care Team Providers Care Nursing Surgical Services Director Name Role Phone Amber Quiroz MD Primary Care Provider [phone] Fred Parker RN Unavailable [phone] Sherry Herbert Unavailable Encounter Details Date Type Department Care Team (Late st Contact Info) Description 04/05/2023 Orders Only [facility] [address] [place] [address] Anabell Martinez LPN Social History Tobacco Use [...] Upcoming Encounters Date Type Department Care Team ([facility] Contact Info) Description 06/25/2025 11:00 AM EST Clinical Support [facility] [address] [place] [address] Rachelle Lucero, RN [address] [place] [address] 11/04/2025 1:30 PM EDT Office Visit [facility] OPT[facility] [address] [place], [place] [phone] Comfort Chang, OD [address] [place] [address] documented as of this encounter Visit Diagnoses Not on filedocumented in this encounter Care Teams Nursing Surgical Services Director Relationship Specialty Start Date End Date Amber Quiroz MD [address] [place] [address] PCP - General Family Medicine 07/03/18 Fred Parker, DOROTA [address] [place] [address] Registered Nurse Family Medicine 04/16/25 Sherry Herbert 04/16/25 documented as of this encounter
--- OUTSIDE RECORDS SUMMARY | 2025-06-15 08:16 | XMS_ITS | Encounter Summary ---
Author Organization [employer] Address [address] [place] [address] 7 [place] [address] Care Team Providers Care Planning Director Name Role Phone Amber Quiroz MD Primary Care Provider Fred Parker RN Unavailable [phone] Sherry Herbert Unavailable Reason for Visit * Reason Comments Med Refill Encounter Details Date Type Department Care Team (Late st Contact Info) Description 04/26/2023 Refill [facility] [address] [place], [place] [phone] Alan Partida MD [address] [place], [place] [phone] Moderate persistent asthma without complication; Nausea Social [...] Department Care Team (Late Contact Info) Description 06/25/2025 11:00 AM EST Clinical Support [facility] [address] [place], [place] [phone] Rachelle Lucero, DOROTA [address] [place], [place] [phone] 11/04/2025 1:30 PM EDT Office Visit [facility] OPTOMETRY [address] [place] [address] Comfort Chang, OD [address] [place] [address] documented as of this encounter Visit Diagnoses Diagnosis Moderate persistent asthma without complication Nausea Nausea alone documented in this encounter Care Teams Planning Director Relationship Specialty Start Date End Date Amber Quiroz MD [address] [place], [place] [phone] PCP - General Family Medicine 07/03/18 Fred Parker, RN [address] [place] [address] Registered Nurse Family Medicine 04/16/25 Sherry Herbert 04/16/25 documented as of this encounter
--- OUTSIDE RECORDS SUMMARY | 2025-06-15 08:16 | XMS_ITS | Encounter Summary ---
Author Organization [employer] Address [address] [facility] [address]t [place] [address] Care Team Providers Care Change Over Name Role Phone Amber Quiroz MD Primary Care Provider [phone] Fred Parker RN Unavailable [phone] Sherry Herbert Unavailable Reason for Visit * Reason Onset Date Comments Med Refill 06/21/2024 Encounter Details Date Type Department Care Team (Late st Contact Info) Description 06/21/2024 Telephone [facility] [address] [place] [address] Amber Quiroz MD [address] [place], [place] [phone] Med Refill Social History Tobacco Use Types [...] extra strength with no relief. Please advise. REJECTOR checked 06/21/24. Last refill of Oxycodone 5mg 11/30/23 qty 12. * Telephone Encounter - Gemma Oliveira - 06/21/2024 10:12 AM EST TC from pt requesting medication refill. Medications needing refill : oxyCODONE (Oxy-IR) 5 MG immediate release capsule To be sent to: [facility] [place] - [address] documented in this encounter Plan of Treatment Upcoming Encounters Date Type Department Care Team (Late st Contact Info) Description 06/25/2025 11:00 AM EST Clinical Support [facility] [address] [place], [place] [phone] Rachelle Lucero, DOROTA [address] [place] [address] 11/04/2025 1:30 PM EDT Office Visit [facility] OPTOMETRY [address] [place] [address] Comfort Chang, OD [address] [place] [address] documented as of this encounter Visit Diagnoses Not on filedocumented in this encounter Care Teams Change Over Relationship Specialty Start Date End Date Amber Quiroz MD [address] [place] [address] PCP - General Family Medicine 07/03/18 Fred Parker, DOROTA [address] [place] [address] Registered Nurse Family Medicine 04/16/25 Sherry Herbert 04/16/25 documented as of this encounter
--- OUTSIDE RECORDS SUMMARY | 2025-06-15 08:16 | XMS_ITS | Encounter Summary ---
Author Organization [employer] Address [address] [place] [address] 7 [place] [address] Care Team Providers Care Inspector Mechanical Name Role Phone Amber Quiroz MD Primary Care Provider [phone] Fred Parker RN Unavailable [phone] Sherry Herbert Unavailable Reason for Visit * Reason Comments Med Refill Encounter Details Date Type Department Care Team (Late st Contact Info) Description 04/26/2023 Refill [facility] [address] [place], [place] [phone] Amber Quiroz MD [address] [place], [place] [phone] Nausea Social History Tobacco Use Types Packs/Day [...] Description 06/25/2025 11:00 AM EST Clinical Support [facility] MED [facility] PEDS [address] [place], [place] [phone] Rachelle Lucero, DOR[place] [address] [place], [place] [phone] 11/04/2025 1:30 PM EDT Office Visit [facility] OPTOMETRY [address] [place] [address] Comfort Chang, OD [address] [place] [address] documented as of this encounter Visit Diagnoses Diagnosis Nausea Nausea alone documented in this encounter Care Teams Inspector Mechanical Relationship Specialty Start Date End Date Amber Quiroz MD [address] [place], [place] [phone] PCP - General Family Medicine 07/03/18 Fred Parker, DOROTA [address] [place] [address] Registered Nurse Family Medicine 04/16/25 Sherry Herbert 04/16/25 documented as of this encounter
--- OUTSIDE RECORDS SUMMARY | 2025-06-15 08:16 | XMS_ITS | Encounter Summary ---
Author Organization [employer] Address [address] [facility] 7t [place] [address] Care Team Providers Care Plant Propagator Name Role Phone Amber Quiroz MD Primary Care Provider [phone] Fred Parker RN Unavailable [phone] Sherry Herbert Unavailable Encounter Details Date Type Department Care Team (Late st Contact Info) Description 12/18/2024 Telephone [facility] MEDICINE [address] [place], [place] [phone] Amber Quiroz MD [address] [place], [place] [phone] Social History Tobacco Use Types Packs/Day Years [...] returning call. Pt provided temporary contact number [phone] documented in this encounter Plan of Treatment Upcoming Encounters Date Type Department Care Team ([facility] st Contact Info) Description 06/25/2025 11:00 AM EST Clinical Support [facility] MED [facility] P[facility]S [address] [place] [address] Rachelle Lucero, RN [address] [place] [address] 11/04/2025 1:30 PM EDT Office Visit [facility] OPTOMETRY [address] [place] [address] Bernardo, Comfort, OD [address] [place] [address] documented as of this encounter Visit Diagnoses Not on filedocumented in this encounter Additional Health Concerns Assessment Noted Time PHQ-9 Depression Total Score: 9 12/03/19 25 4:14 PM EDT documented as of this encounter Care Teams Plant Propagator Relationship Specialty Start Date End Date Amber Quiroz MD [address] [place] [address] PCP - General Family Medicine 07/03/18 Fred Parker, DOROTA [address] [place] [address] Registered Nurse Family Medicine 04/16/25 Sherry Herbert 04/16/25 documented as of this encounter
--- OUTSIDE RECORDS SUMMARY | 2025-06-15 08:16 | XMS_ITS | Encounter Summary ---
Author Organization [employer] Address [address] [facility] 7t [place] [address] Care Team Providers Care Cash Applications Clerk Name Role Phone Amber Quiroz MD Primary Care Provider [phone] Fred Parker RN Unavailable [phone] Sherry Herbert Unavailable Reason for Visit * Reason Comments Med Refill Encounter Details Date Type Department Care Team (Late st Contact Info) Description 11/12/2024 Refill [facility] MEDICINE [address] [place], [place] [phone] Amber Quiroz MD [address] [place], [place] [phone] Moderate persistent asthma without complication Social History [...] Description 06/25/2025 11:00 AM EST Clinical Support [facility] MED [facility] PEDS [address] [place] [address] Rachelle Lucero RN [address] [place] [address] 11/04/2025 1:30 PM EDT Office Visit [facility] OPTOMETRY [address] [place] [address] Bernardo, Comfort, OD [address] [place] [address] documented as of this encounter Visit Diagnoses Diagnosis Moderate persistent asthma without complication documented in this encounter Care Teams Cash Applications Clerk Relationship Specialty Start Date End Date Amber Quiroz MD [address] [place] [address] PCP - General Family Medicine 07/03/18 Fred Parker, RN [address] [place] [address] Registered Nurse Family Medicine 04/16/25 Sherry Herbert 04/16/25 documented as of this encounter
--- OUTSIDE RECORDS SUMMARY | 2025-06-15 08:16 | XMS_ITS | Encounter Summary ---
Author Organization [employer] Address [address] [facility] 7 [place] [address] Care Team Providers Care Sap Plant Maintenance Consultant Name Role Phone Amber Quiroz MD Primary Care Provider [phone] Fred Parker RN Unavailable [phone] Sherry Herbert Unavailable Reason for Visit * Reason Comments Med Refill Encounter Details Date Type Department Care Team (Late st Contact Info) Description 12/20/2024 Refill [facility] [address] [place], [place] [phone] Amber Quiroz MD [address] [place], [place] [phone] Nephrolithiasis Social History Tobacco Use Types Packs/Day [...] Description 06/25/2025 11:00 AM EST Clinical Support [facility]EDS [address] [place] [address] Rachelle Lucero RN [address] [place] [address] 11/04/2025 1:30 PM EDT Office Visit [facility] OPTOMETRY [address] [place] [address] Bernardo, Comfort, OD [address] [place] [address] documented as of this encounter Visit Diagnoses Diagnosis Nephrolithiasis Calculus of kidney documented in this encounter Additional Health Concerns Assessment Noted Time PHQ-9 Depression Total Score: 9 12/03/19 25 4:14 PM EDT documented as of this encounter Care Teams Sap Plant Maintenance Consultant Relationship Specialty Start Date End Date Amber Quiroz MD [address] [place] [address] PCP - General Family Medicine 07/03/18 Fred Parker, DOROTA [address] [facility] [place] [address] Registered Nurse Family Medicine 04/16/25 Sherry Herbert 04/16/25 documented as of this encounter
--- OUTSIDE RECORDS SUMMARY | 2025-06-15 08:16 | XMS_ITS | Encounter Summary ---
Author Organization [employer] Address [address] [place] [address] 7 [place] [address] Care Team Providers Care Fishing Lure Assembler Name Role Phone Amber Quiroz MD Primary Care Provider [phone] Fred Parker RN Unavailable [phone] Sherry Herbert Unavailable Encounter Details Date Type Department Care Team (Late st Contact Info) Description 12/12/2022 Orders Only [facility] MEDICINE [address] [place], [place] [phone] Anabell Martinez LPN Social History Tobacco Use [...] Description 06/25/2025 11:00 AM EST Clinical Support [facility] MED [facility] PEDS [address] [place], [place] [phone] Rachelle Lucero, DOROTA [address] [place], [place] [phone] 11/04/2025 1:30 PM EDT Office Visit [facility] OPTOMETRY [address] [place] [address] Comfort Chang, OD [address] [place] [address] documented as of this encounter Visit Diagnoses Not on filedocumented in this encounter Care Teams Fishing Lure Assembler Relationship Specialty Start Date End Date Amber Quiroz MD [address] [place] [address] PCP - General Family Medicine 07/03/18 Fred Parker RN [address] [place] [address] Registered Nurse Family Medicine 04/16/25 Sherry Herbert 04/16/25 documented as of this encounter
--- OUTSIDE RECORDS SUMMARY | 2025-06-15 08:16 | XMS_ITS | Encounter Summary ---
Author Organization [employer] Address [address] [facility] 7 [place] [address] Care Team Providers Care Plug Drill Operator Name Role Phone Amber Quiroz MD Primary Care Provider Fred Parker RN Unavailable [phone] Sherry Herbert Unavailable Encounter Details Date Type Department Care Team (Late st Contact Info) Description 03/22/2023 Orders Only [facility] MEDICINE [address] [place], [place] [phone] Amber Quiroz MD [address] [place], [place] [phone] ASCUS of cervix with negative high risk [facility] [address] [place], [place] [phone] Rachelle Lucero, [place] [address] [place], [place] [phone] 11/04/2025 1:30 PM EDT Office Visit [facility] OPTOMETRY [address] [place] [address] Comfort Chang, OD [address] [place] [address] documented as of this encounter Visit Diagnoses Diagnosis ASCUS of cervix with negative high risk HPV- Primary History of cervical dysplasia Personal history of cervical dysplasia documented in this encounter Care Teams Plug Drill Operator Relationship Specialty Start Date End Date Amber Quiroz MD [address] [place], [place] [phone] PCP - General Family Medicine 07/03/18 Fred Parker, RN [address] [place] [id number] Registered Nurse Family Medicine 04/16/25 Sherry Herbert 04/16/25 documented as of this encounter
--- OUTSIDE RECORDS SUMMARY | 2025-06-15 08:16 | XMS_ITS | Clinical Summary ---
Author Organization [employer] Address [address] [place] [address] [address] [place] [address] Care Team Providers Care Coal Trimmer Name Role Phone Amber Quiroz MD Primary Care Provider [phone] Fred Parker RN Unavailable [phone] Sherry Herbert Unavailable Allergies Active Allergy Reactions Criticality Noted Date Comments Acetaminophen 04/24/2023 Aspirin Rash High 03/02/2023 Other Reaction(s): RASH, nausea and vomiting Side Effects Haloperidol Anaphylaxis High 04/24/2023 Ibuprofen Rash High 04/22/2013 Iodinated Contrast Media Hives 03/02/2023 Iodine Rash Low 03/02/2023 Ketorolac Low 12/28/2024 Other Reaction(s): RAPID HR AND HIVES Ketorolac Tromethamine Other 03/02/2023 Increased heart rate Metoclopramide 04/24/2023 Other Reaction(s): Unknown Nicotine Rash High 03/02/2023 Nicotine patch Other Reaction(s): RASH FROM NICOTINE PATCH, nausea and vomiting Side Effects Medications FLUoxetine (PROzac) 20 MG capsule TOME ELIZABETH C PSULAS POR V A ORAL TODOS LOS D EN LA TESHA GARCÍA 023 Active clonazePAM (KlonoPIN) 0.5 MG tablet TAKE 1 TABLET BY MOUTH TWICE A DAY NEEDED FOR SEVERE ANXIETY 023 Active topiramate (Topamax) 25 MG tablet TOME BELINDA TABLETA DOS VECES AL D A 023 Active zolpidem (Ambien) 10 MG tablet TOME BELINDA TABLETA TODOS LOS D AL ACOSTARSE CUANDO SEA NECESARIO FOR INSOMNIA 023 Active naloxone (Narcan) 4 mg/0.1 mL nasal spray PLEASE SEE ATTACHED FOR DETAILED DIRECTIONS 024 Active potassium chloride ER (Micro-K) 10 MEQ ER capsule TOME BELINDA C PSULA TODOS LOS D POR 7 D 023 Active acetaminophen (Tylenol 8 Hour) 650 MG ER tabletIndications :Pain TAKE 1 TABLET BY MOUTH EVERY 8 HOURS NEEDED FOR PAIN OR FEVER 60 tablet 1 025 Active Additional Information Patient not taking.Reported on 06/10/2025 Advair Diskus 500-50 MCG/ACT aerosol powder INHALE 1 PUFF BY MOUTH TWICE DAILY 60 each 5 5 10:07 AM EST 025 Active Melatonin 10 MG capsule TOME 1 C PSULA POR V A ORAL TODOS LOS D AL ACOSTARSE 025 Active mirtazapine (Remeron) 45 MG tablet TOME 1 TABLETA POR V A ORAL TODOS LOS D AL ACOSTARSE 025 Active gabapentin (Neurontin) 600 MG tablet TOME 1 TABLETA POR V A ORAL ELIZABETH VECES AL D A 025 Active ARIPiprazole (Abilify) 2 MG tablet Take 2 mg by mouth. 025 Active Blood Pressure Monitor misc Check BP daily 1 each 025 Active tamsulosin (Flomax) 0.4 MG 24 hr capsule TAKE 1 CAPSULE BY MOUTH EVERY DAY FOR 14 DAYS. Active prazosin (Minipress) 2 MG capsule TOME 1 C PSULA POR V A ORAL TODOS LOS D AL ACOSTARSE 025 Active ondansetron (Zofran) 4 MG tabletIndications :Nausea TAKE 1 TABLET BY MOUTH EVERY 8 HOURS NEEDED FOR NAUSEA AND VOMITING 30 tablet 025 Active loratadine (Claritin) 10 MG tabletIndications :Allergic rhinitis, unspecified seasonality, unspecified trigger TAKE 1 TABLET BY MOUTH EVERY DAY 90 tablet 3 5 10:07 AM EST 025 Active atorvastatin (Lipitor) 10 MG tablet TAKE 1 TABLET BY MOUTH EVERY DAY 90 tablet 1 09/15/2 025 Active amLODIPine (Norvasc) 10 MG tablet TAKE 1 TABLET BY MOUTH EVERY DAY 90 tablet 1 Active albuterol (Ventolin HFA) 108 (90 Base) MCG/ACT inhalerIndication s:Moderate persistent asthma without complication INHALE 2 PUFFS BY MOUTH EVERY 4 TO 6 HOURS NEEDED FOR DIFFICULTY BREATHING. DO NOT EXCEED 2 PUFFS FOUR TIMES DAILY OR 8 PUFFS IN 24 HOURS. 18 g Active traMADol (Ultram) 50 MG tabletIndications :Flank pain,History of total knee replacement, unspecified laterality,Primar y osteoarthritis of left knee,Loin pain hematuria syndrome,Chronic back pain, unspecified back location, unspecified back pain laterality TAKE 1 TABLET BY MOUTH EVERY 8 HOURS NEEDED FOR SEVERE PAIN 10 tablet Active Additional Information Patient not taking.Reported on 06/10/2025 clonazePAM (KlonoPIN) 1 MG tablet TAKE 1 TABLET BY MOUTH ONCE A DAY NEEDED FOR SEVERE ANXIETY. UP TO 15 TIMES PER MONTH. Active amoxicillin (Amoxil) 500 MG capsule Take 1 capsule (500 mg) by mouth every 12 (twelve) hours for 7 days. 14 capsule 5 4:30 PM EST 2024 Active traMADol (Ultram) 50 MG tabletIndications :Flank pain,History of total knee replacement, unspecified laterality,Primar y osteoarthritis of left knee,Loin pain hematuria syndrome,Chronic back pain, unspecified back location, unspecified back pain laterality TAKE 1 TABLET BY MOUTH EVERY 8 HOURS NEEDED FOR SEVERE PAIN 10 tablet 2024 Discontinued oxyCODONE (Roxicodone) 5 MG immediate release tabletIndications :Pain, dental,Severe dental caries Take 1 tablet (5 mg) by mouth every 6 (six) hours if needed for severe pain for up to 5 days. 12 tablet 5 10:07 AM EST 2024 chlorhexidine (Peridex) 0.12 % solution Use 15 mL in the mouth or throat if needed (for mouthwash 15 ml for 30 seconds, swish and spit) for up to 14 days. 473 mL 5 10:12 AM EST 025 2024 traMADol (Ultram) 50 MG tabletIndications :Flank pain,History of total knee replacement, unspecified laterality,Primar y osteoarthritis of left knee,Loin pain hematuria syndrome,Chronic back pain, unspecified back location, unspecified back pain laterality TAKE 1 TABLET BY MOUTH EVERY 8 HOURS NEEDED FOR SEVERE PAIN 10 tablet 025 2024 Discontinued oxyCODONE (Roxicodone) 5 MG immediate release tabletIndications :Pain, dental,History of tooth extraction, unspecified edentulism class Take 1 tablet (5 mg) by mouth every 6 (six) hours if needed for severe pain for up to 3 days. 12 tablet 5 4:51 PM EST 025 2024 Active Problems Patient Care Coordination No te Formatting of this note migh t be different from the original. C3/CM Diane Pina RN Problem Noted Date Diagnosed Date History of tooth extraction 06/10/2025 Long-term current use of opiate analgesic 2024 Abnormal urinalysis 05/15/2025 Drug-seeking behavior 05/15/2025 Pyelonephritis 05/15/2025 Underweight 05/15/2025 Pain, dental 05/15/2025 Chronic flank pain 04/01/2024 Flank pain 04/01/2024 Assessment & Plan [...] dependence. Patient states she is going to [place] tomorrow for about 1 week. 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 - Seen [facility]rolog[facility] 10/08/24 - Pt states she has a follow up appointment tomorrow (? Pt might be going to [place] tomorrow as well). - Discussed about my [...] of lung 04/22/2013 05/04/2023 Asthma with COPD ([facility]) 10/22/2012 Lung mass 10/22/2012 05/04/2023 Anemia 06/05/2012 [...] Encounters Date Type Department Care Team Description 06/10/2025 1:00 PM EST Office Visit [facility] [address] [place] [address] Bob Morel DDS Pain, dental (Primary Dx); History of tooth extraction, unspecified edentulism class 06/10/2025 Refill [facility] [address] [place] [address] Bob Morel DDS Pain, dental; Severe dental caries 06/03/2025 Refill [facility] [address] [place] [address] Amber Quiroz MD Flank pain; History of total knee replacement, unspecified laterality; Primary osteoarthritis of left knee; Loin pain hematuria syndrome; Chronic back pain, unspecified back location, unspecified back pain laterality 05/23/2025 Telephone [facility] [address] [place] [address] Niurka Logan MA 05/22/2025 Orders Only [facility] Health Information Management [address] [place] [phone] ProviderInez MD 05/20/2025 1:00 PM EST Clinical Support [facility] [address] [place] [address] Rachelle Lucero stress engineer pain of left knee (Primary Dx); Long-term current use of opiate analgesic 05/20/2025 Refill [facility] [address] [place] [address] Amber Quiroz MD Flank pain; History of total knee replacement, unspecified laterality; Primary osteoarthritis of left knee; Loin pain hematuria syndrome; Chronic back pain, unspecified back location, unspecified back pain laterality 05/20/2025 Travel 05/19/2025 Patient Outreach [address] [address] Amber Quiroz MD Pre-visit Planning (SDOH screening was completed on 11/12/2024) 05/19/2025 Telephone [facility] [address] [place] [phone] ACOSTA 05/16/2025 2:30 PM EST Office Visit [facility] [address] [place] [phone] Laurita Wilder DDS Lip biting (Primary Dx) 05/15/2025 9:30 AM EST Office Visit [facility] [address] [place] [phone] Zakhary, Ron Pain, dental (Primary Dx); Severe dental caries 05/14/[address] [address] Amber Quiroz MD Nurse Triage 05/14/[address] [phone] Amber Quiroz MD Med Refill 05/13/2025 Orders Only [facility] Information [facility] [address] [place] [address] ProviderInez MD 05/12/2025 Refill [facility] [address] [place] [address] Amber Quiroz MD Flank pain; History of total knee replacement, unspecified laterality; Primary osteoarthritis of left knee; Loin pain hematuria syndrome; Chronic back pain, unspecified back location, unspecified back pain laterality 05/01/2025 Orders Only [facility] External Provider, [facility] 04/30/2025 Telephone [facility] [address] [place] [address] Rachelle Lucero RN 04/29/2025 Orders Only GENERIC EXTERNAL DATA DEPARTMENT Provider, Generic External Data 04/29/2025 Telephone [facility] [address] [place] [address] Amber Quiroz MD Triage 04/29/2025 Travel 04/24/2025 Travel 04/24/[address] [address] Amber Quiroz MD Med Refill 04/24/2025 Refill [facility] [address] [place] [address] Amber Quiroz MD Moderate persistent asthma without complication; Flank pain; History of total knee replacement, unspecified laterality; Primary osteoarthritis of left knee; Loin pain hematuria syndrome; Chronic back pain, unspecified back location, unspecified back pain laterality 04/19/2025 Orders Only GENERIC EXTERNAL DATA DEPARTMENT Provider, Generic External Data 04/18/2025 Patient Outreach [address] [address] Amber Quiroz MD Care Coordination ([facility]3 -[facility] Sherry Herbert telephone call outreach) 04/17/2025 Orders Only GENERIC EXTERNAL DATA DEPARTMENT Provider, Generic External Data 04/16/2025 Patient Outreach [address] [address] Amber Quiroz MD Care Coordination (C3 CM-[facility] Sherry Herbert telephone call outreach ) 04/16/2025 Patient Outreach [facility] [address] [place] [address] Amber Quiroz MD Care Coordination (C3CM- chart review) 04/16/2025 Patient Outreach [facility] MEDIC[facility] [address] [place] [address] Amber Quiroz MD 04/11/2025 Telephone [facility] [address] [place] [address] Rachelle Lucero RN 04/04/2025 Refill [facility] [address], [place] [phone] Amber Quiroz MD Moderate persistent asthma without complication; Flank pain; History of total knee replacement, unspecified laterality; Primary osteoarthritis of left knee; Loin pain hematuria syndrome; Chronic back pain, unspecified back location, unspecified back pain laterality 03/16/2025 Refill [facility] MEDIC[facility] [address] [place], [place] [phone] Amber Quiroz MD from Last 3 Months Immunizations Immunization Administration [...] Sign Reading Time Taken Comments Blood Pressure 118/66 05/15/2025 8:24 AM EST Pulse 107 04/24/2025 2:09 PM EDT Temperature [...] Description 06/25/2025 11:00 AM EST Clinical Support [facility] [address] [place] [address] Rachelle Lucero, RN [address] [place] [address] 11/04/2025 1:30 PM EDT Office Visit [facility] OPTOMETRY [address] [place] [address] BernardoComfort, OD [address] [place] [address] Health Maintenance Due Date Last Done Comments CT Colonography 1965 Colonoscopy 1965 Colorectal Cancer Screening 1965 Dental Prophylaxis 1965 FIT DNA/Cologuard 1965 FIT 1965 FOBT 1965 HIV Screening 1965 Sigmoidoscopy 1965 Hepatitis C Screening 1982 Mammogram 2004 Dental X-Ray: Bitewings 11/24/2012 11/24/2011 RSV Patients and Patients Aged 60 years or older (1 - Risk 50-74 years 1-dose series) 2014 Colposcopy 07/31/2021 Zoster Vaccines (2 of 2) 05/29/2023 04/03/2023 Pap Smear 07/30/2024 07/30/2021 COVID-19 Vaccine ( season) 2025 10/24/2024, 08/10/2021, 02/19/2021, Additional history exists Dental Oral Exam 04/27/2025 10/25/2024 Depression Monitoring 06/03/2025 12/02/2024, 025 Alcohol/Substance Use Screening 09/03/2025 09/03/2024 Disability Screening 11/12/2025 11/12/2024 SDOH Screening 11/12/2025 11/12/2024 Tobacco Screening 06/10/2026 06/10/2025 Cervical Cancer Screening 07/30/2026 HPV/Cotest 07/30/2026 07/30/2021, [...] TREATMENT PLANNING Routine 06/10/2025 1:00 PM EST 26 EXTRACTION, ERUPTED TOOTH OR EXPOSED ROOT [...] (ELEVATION/FORCEPS REMOVAL) Routine 06/10/2025 1:[address] ABDOMEN PELVIS WO CONTRAST Routine 05/22/2025 POCT YAAKOV-14 URINE DRUG SCREEN Routine 05/20/2025 1:22 PM EST Chronic pain of left knee CASE PRESENTATION, DETAILED AND EXTENSIVE TREATMENT PLANNING Routine 05/16/2025 2:30 PM EST PALLIATIVE (EMERGENCY) TREATMENT OF DENTAL PAIN - MINOR PROCEDURE Routine 05/16/2025 2:30 PM EST CASE PRESENTATION, DETAILED AND EXTENSIVE TREATMENT PLANNING Routine 05/15/2025 9:30 AM EST Pain, dental 28 EXTRACTION, ERUPTED TOOTH OR EXPOSED ROOT (ELEVATION/FORCEPS REMOVAL) Routine 05/15/2025 9:30 AM EST Pain, dental 9 EXTRACTION, ERUPTED TOOTH OR EXPOSED ROOT (ELEVATION/FORCEPS REMOVAL) Routine 05/15/2025 9:30 AM EST Pain, dental 8 EXTRACTION, ERUPTED TOOTH OR EXPOSED ROOT (ELEVATION/FORCEPS REMOVAL) Routine 05/15/2025 9:30 AM EST Pain, dental CT ABDOMEN PELVIS W CONTRAST Routine 05/13/2025 11:45 AM EST CTA ABDOMEN W AND WO CONTRAST Routine [...] AUTO DIFFERENTIAL Routine 04/17/2025 2:35 AM EDT PANORAMIC RADIOGRAPHIC IMAGE Routine 10/25/2024 [...] Modality Body, Pelvis, Abdomen Computed T omography Historical Provider MD COTTO CT PROCEDURES Edited Result - Final * (ABNORMAL) POCT YAAKOV-14 Urine Drug Screen (05/20/2025 1:22 PM EST) THC Positive(A) Negative Cocaine Screen, Urine Negative Negative Opiate Screen, Urine Negative Negative Methamphetamine Screen Urine Negative Negative Amphetamine Screen, Urine Negative Negative Benzodiazepines Screen, Urine Positive(A) Negative Comment:Rx psych. Barbiturate Screen, Urine Negative Negative Methadone Screen, Urine Negative Negative Buprenophine Screen, Urine Negative Negative TCA, Urine Negative Negative MDMA Urine Negative Negative ng/mL Oxycodone Screen, Urine Positive(A) Negative Comment:Rx Phencyclidine (PCP), Urine Negative Negative Propoxyphene, Urine Negative Negative Fentanyl, Urine Negative Negative Urine Urine specimen obtained by clean catch procedure / Unknown 05/20/2025 1:22 PM EST Narrative Rachelle Lucero RN - 05/20/2025 1:22 PM EST . Internal Pass Control Lot# [id number] Exp: 04-08-26 Amber Quiroz MD POINT OF CARE TEST ENTER/EDIT OR DERABLES Final Result * CT Abdomen Pelvis w/ Contrast (05/13/2025 11:45 AM EST) Only the most recent of2 resultswithin the time period is included. Anatomical Region Laterality Modality Body, Pelvis, Abdomen Computed T omography Historical Provider MD COTTO CT PROCEDURES Final R esult * CTA Abdomen w/ and w/o Contrast (05/01/2025 1:50 PM EDT) Anatomical Region Laterality Modality Body, Abdomen Computed Tomogra phy 05/01/2025 1:50 PM EDT Narrative 05/01/2025 2:17 PM EDT [address] [address] [address] Scan Report Signed Patient: John Marquez MR#: [id number] [id number] : 1965 Acct:[id number] Age/Sex: 59 / F ADM Date: 05/01/25 Loc: HO.ED Attending Dr: Ordering Physician: Jeovany Cunningham MD Date of Service: 05/01/25 Procedure(s): CT angio abdomen Accession Number(s): [id number] cc: Jeovany Cunningham MD; Amber Quiroz MD Report Number: [id number]: Total DLP = 197.00 mGy-cm Reason for [...] 05/01/25 1414 DD/ 1350 TD/TT: 05/01/25 1405 Contracts Advisor: Procedure Note Donotuseinterpreter, Image - 05/01/[address] [place] [address] [address] Scan Report Signed Patient: Heidi Marquez#: [id number] : 1965Acct:[id number] Age/Sex: 59 / FADM Date: 05/01/25 Loc: HO.ED Attending Dr: Ordering Physician: Jeovany Cunningham MD Date of Service: 05/01/25 Procedure(s): CT angio abdomen Accession Number(s): [id number] cc: Jeovany Cunningham MD; Amber Quiroz MD Report Number: [id number]: Total DLP = 197.00 mGy-cm Reason for [...] 05/01/25 1414 DD/ 1350 TD/TT: 05/01/25 1405 Contracts Advisor: [facility] External Provider IMG CT PROCEDURES Final Result * (ABNORMAL) Comprehensive Metabolic Panel (04/29/2025 12:14 PM EDT) Only the most recent of3 resultswithin the time period is included. Sodium 144 135 - 145 mmol/L [facility] Potassium 3.3 3.3 - 5.1 mmol/L [facility] Chloride 111(H) 96 - 108 mmol/L [facility] Carbon Dioxide 26 22 - 29 mmol/L [facility] Anion Gap 10(L) 12 - 20 [facility] Urea Nitrogen (BUN) 14 9 - 16 mg/dL [facility] Creatinine, Serum 0.61 0.5 - 1.4 mg/dL [facility] Creatinine Clr Calc Pharmacy 84.5 [facility] Comment:Provided height and weight: 154.94 cm,64.8 kg.eGFR (calculated from the MDRD study equation) and eCrCl(calculated from the Cockcroft-Gault equation) are based ondifferent parameters and may not yield comparable results.If eCrCl result is absurd, please check patient'sheight/weight. Estimated Glomerular Filt Rate >60 [facility] Comment:Chronic Kidney Disea se: Estimated GFR < 60 mL/min/1.29w7Hgkikl Kidney Disease: Estimated GFR < 15 mL/min/1.73m2 Glucose 92 60 - 115 mg/dL [facility] Calcium 8.9 8.4 - 10.2 mg/dL [facility] Bilirubin, Total 0.5 0.0 - 1.0 mg/dL [facility] Aspartate Amino Transferase 22 5 - 31 U/L [facility] Alanine Aminotransferase 13 0 - 31 U/L [facility] Total Protein 7.1 6.5 - 8.0 g/dL [facility] Albumin Level 4.4 3.5 - 5.0 g/dL [facility] Alkaline Phosphatase 110 39 - 117 U/L [facility] 04/29/2025 12:1 4 PM EDT 04/29/2025 12:17 PM EDT us Generic External Data Provider LAB BLOOD ORDERAB LES Final Result Performing Organization Address City/[facility]/ZIP Co de Phone Number [facility] [address] [place] [address] [phone] * (ABNORMAL) Urinalysis, Complete, with Reflex to Culture (04/29/2025 11:15 AM EDT) Only the most recent of2 resultswithin the time period is included. Color Urine BROWN [facility] Appearance Urine Clear [facility] PH 6.0 5.0 - 9.0 [facility] Glucose Urine UA Negative Negative mg/dL [facility] Urine Blood Large (3+)(A) Negative [facility] Specific Carter - Urine <=1.005 1.005 - 1.025 [facility] Urine Protein 30 (1+)(A) Neg-Trace mg/dL [facility] Urine Ketones Negative Negative mg/dL [facility] Nitrite Urine Positive(A) Negative [facility] Leukocyte Esterase Urine Negative Negative [facility] RBC Urine 6-10(A) 0 - 2 /HPF [facility] Urine WBC 0-5 0 - 5 /HPF [facility] Urine Squamous Epithelial Cell 0-2 0 - 2 /HPF [facility] Urine Bacteria 1+ None Seen [facility] Hyaline Casts, Urine 0-2 0 - 2 /LPF [facility] 04/29/2025 11:1 5 AM EDT 04/29/2025 11:18 AM EDT Narrative [facility] - 04/29/2025 12:22 PM EDT Urine, Clean Catch us Generic External Data Provider LAB URINE ORDERAB LES Final Result Performing Organization Address City/[facility]/ZIP Co de Phone Number [facility] [address] [place] [address] [phone] * (ABNORMAL) CBC auto differential (04/29/2025 11:05 AM EDT) Only the most recent of3 resultswithin the time period is included. White Blood Count 6.2 4.8 - 10.8 X10*3/uL [facility] Red Blood Count 4.50 4.20 - 5.50 X10*6/uL [facility] Hemoglobin 12.0 12.0 - 16.0 g/dl [facility] Hematocrit 37.2 37.0 - 47.0 % [facility] Mean Corpuscular Volume 82.7 80.0 - 98.0 fL [facility] Mean Corpuscular Hemoglobin 26.7(L) 27.0 - 33.0 pg [facility] Mean Corpuscular HGB Conc 32.3 31.0 - 35.0 g/dl [facility] Red Cell Distribution Width 15.6 11.0 - 16.0 % [facility] Platelet Count 321 160 - 400 X10*3/uL [facility] Mean Platelet Volume 9.3(L) 9.4 - 12.3 fL [facility] Neutrophils Percent Auto 68.1 45 - 73 % [facility] Imm Gran Pct Auto 0.2 0.0 - 0.4 % [facility] Lymphocytes Percent Auto 26.0 20 - 40 % [facility] Monocytes Percent Auto 4.8 2 - 11 % [facility] Eosinophils Percent Auto 0.6 0 - 4 % [facility] Basophils Percent Auto 0.3 0 - 2 % [facility] NRBC Pct Auto 0.0 0.0 - 0.2 /100WBC [facility] Neutrophils Absolute Auto 4.3 2.0 - 8.3 x10*3/uL [facility] Imm Gran Abs Auto 0.01 0.00 - 0.03 X10*3/uL [facility] Lymphocytes Absolute Auto 1.6 1.2 - 4.9 X10*3/uL [facility] Monocytes Absolute Auto 0.3 0.1 - 1.2 X10*3/uL [facility] Eosinophils Absolute Auto 0.0 0.0 - 0.4 X10*3/uL [facility] Basophils Absolute Auto 0.0 0.0 - 0.2 X10*3/uL [facility] NRBC Abs Auto 0.000 0.0 - 0.012 X10*3/uL [facility] 04/29/2025 11:0 5 AM EDT 04/29/2025 11:11 AM EDT Generic External Data Provider LAB BLOOD ORDERAB LES Final Result Performing Organization Address [facility] Co de Phone Number [facility] [address] [place] [phone] * Culture, Urine, Routine (04/29/2025 12:00 AM EDT) Only the most recent of2 resultswithin the time period is included. Urine Urine specimen obtained by clean catch procedure / Unknown 04/29/2025 04/29/2025 Comment:UACC Narrative [facility] - 04/30/2025 12:14 PM EDT Urine Culture No growth. Specimen Source: Urine clean catch Generic External Data Provider LAB MICROBIOLOGY - GENERAL ORDERABLES Final Result Performing Organization Address [facility] Co de Phone Number [facility] [address] [place] [phone] * Lipase (04/19/2025 3:19 AM EDT) Lipase 35 8 - 78 U/L [facility] 04/19/2025 3:19 AM EDT 04/19/2025 3:22 AM EDT Generic External Data Provider LAB BLOOD ORDERAB LES Final Result Performing Organization Address [facility] Co de Phone Number [facility] [address] [place] [phone] * (ABNORMAL) Lipid Panel with Reflex to Direct LDL (09/03/2024 4:26 PM EST) Triglycerides 112 <150 mg/dL [facility] Comment:Desirable Triglyceri de: less than 150 mg/dLBorderline High Triglyceride 150-199 mg/dLHigh Triglyceride: 200-499 mg/dLVery High Triglyceride: greater than or equal to 5OO mg/dL Cholesterol 183 <200 mg/dL [facility] Comment:Desirable Cholestero l: less than 200 mg/dLBorderline High Cholesterol: 200-239 mg/dLHigh Cholesterol: greater than 239 mg/dL LDL Cholesterol Calculated 112(H) <100 mg/dL [facility] Comment:Desirable LDL: less than 100 mg/dLNear Optimal/Above Optimal LDL: 110- 129 mg/dLBorderline High LDL: 130-159 mg/dLHigh LDL: 160-189 mg/dLVery High LDL: greater than or equal to 190 mg/dL HDL Cholesterol 49 >40 mg/dL [facility] Comment:Desirable HDL: great er than 40 mg/dL Note: This HDL assay may give artificially low results in patients with liver disease. Blood 09/03/2024 4:26 PM EST 09/03/2024 6:14 PM EST us Amber Quiroz MD LAB BLOOD ORDERABLES Final Resul t [facility] [address] [place] [phone] * (ABNORMAL) THINPREP TIS PAP AND [...] along with historic and current clinical information. Comment: This Pap test has been evaluated with computer assisted technology. [facility] Laborer Ammunition Assembly: SEE COMMENT [facility] Comment: [facility], CT(ASCP) CT screening location: [place] [address] General Categorization: EPITHELIAL CELL ABNORMALITY(A ) [facility] HPV nRNA E6/E7 Not Detected Not Detected [facility] Comment: Methodology: Customer Experience Consultant-Mediated Amplification This assay detects E6/E7 viral messenger RNA (mRNA) from 14 high-risk HPV types (16,18,31,33,35,39,45,51,52,56,58,59,66,68). The analytical performance characteristics of this assay have been determined by [employer]. The modifications have not been cleared or approved by the FDA. This assay has been validated pursuant to the CLIA regulations and is used for clinical purposes. For additional information, please refer to http://education.[employer]/faq/QRB527e3 (This link if provided for information/ educational [...] N LAB SYSTEM PATHOLOGIST: SEE COMMENT [facility] Comment: Jennifer Branch M.D., Board Certified in Anatomic and Clinical Pathology (electronic signature) Consulting Pathologist [facility] [phone] Prev. BX: NONE GIVEN FOUNDATIO N LAB [...] CAMPUS EMERGENCY DEPARTMENT LAB SYSTEM [address] from Last 3 Months or Most Recently Relevant to Health Maintenance Insurance [facility] C3 DENTAL-[facility] MEDICAID STAND ADULT Care Teams Coal Trimmer Relationship Specialty Start Date End Date Amber Quiroz MD [address] [place] [address] PCP - General Family Medicine 07/03/18 Fred Parker, DOROTA [address] [place] [address] Registered Nurse Family Medicine 04/16/25 Sherry Herbert 04/16/25
--- NOTE | 2025-06-15 08:41 | PC.NURSE ---
Pt arrives to ED for c/o abd pain, n/v, and hematuria. Blood work completed, CT scan performed, and Pt medicated per MAR. Pt reports allergies to many non-narcotic options and and requests pain medications. ED provider aware and speaks with Pt re: this. After CT completed, Pt reports to ED provider that she wishes to be d/c'd. D/C paperwork brought to Pt to which then she refuses to allow this RN to remove her IV and states she wishes to wait for her CT results. ED provider and grassland conservationist aware.
[2025-06-15 09:50] VITALS: BP 145/92; PULSE 112; RESP 20; TEMP 36.6; O2SAT 95
== END 2025-06-15 09:50 | disposition home or self-care (01) ==
PROVIDERS: Emergency Provider Emergency Medicine; PCP Family Medicine
DX: R10.11 Right upper quadrant pain (principal); R30.0 Dysuria; R35.0 Frequency of micturition; Z87.442 Personal history of urinary calculi; I10 Essential (primary) hypertension; E78.00 Pure hypercholesterolemia, unspecified
CPT/HCPCS: 36415; 74176; 80048; 80076; 81003; 83690; 83735; 84702; 85025; 96374; 96375; 99284; J1308; J2405; Q9967

== ENCOUNTER → 2025-06-15 07:15 | Outpatient (BNV) | payer MEDICAID, SELFPAY | PROVIDERS: Emergency Provider Emergency Medicine; PCP Family Medicine; Visit Provider Radiology Vascular & Interventional Radiology | DX: R10.31 Right lower quadrant pain (principal) | CPT/HCPCS: 74176 ==

== ENCOUNTER → 2025-06-30 00:02 | Outpatient (BNV) | payer MEDICAID, SELFPAY | PROVIDERS: Emergency Provider Emergency Medicine; Visit Provider Student in an Organized Health Care Education/Training Program | DX: M79.661 Pain in right lower leg (principal) | CPT/HCPCS: 73590 ==

== ENCOUNTER 2025-06-30 22:25 | Emergency (ER) | payer MEDICAID, SELFPAY ==
--- NOTE | ~2025-06-30 | XR_ITS ---
CLINICAL HISTORY: fall, pain 2 view right tibia-fibula Comparison: None provided Findings Postsurgical changes of total knee arthroplasty. No evidence of acute hardware complication. Small suprapatellar joint effusion. Remote healed tibial and fibular fracture deformities. No acute fracture. Joint spaces of the visualized ankle are preserved. IMPRESSION: No acute findings. This document has been electronically signed by: Chava Suggs MD on 07/01/2025 01:54:00
[2025-06-30 22:40] VITALS: BP 142/86; PULSE 89; O2SAT 97
[2025-06-30 22:44] VITALS: BP 108/58; PULSE 84; RESP 20; TEMP 36.5; O2SAT 98; BMI 26.4
--- OUTSIDE RECORDS SUMMARY | 2025-07-01 00:48 | XMS_ITS ---
Author Organization [employer] Address [address] [facility] 7 [place] [address] Care Team Providers Care Underwear Cutter Name Role Phone Amber Quiroz MD Primary Care Provider [phone] Fred Parker RN Unavailable [phone] Sherry Herbert Unavailable CM Complex Status:Outreach In Progress (Enrolling) Start date:04/16/2025 Enrollment reason:ADT Feed Overview [facility] 04/15/25 Case Team Name Relationship Phone Fred Parker RN(Responsible Staff) Registered Jeremie salgado [phone] Continued Care and Services Coordination
--- OUTSIDE RECORDS SUMMARY | 2025-07-01 00:49 | XMS_ITS | Encounter Summary ---
Author Organization [employer] Address [address] [facility] 7t [place] [address] Care Team Providers Care Retort Load Expediter Name Role Phone Amber Quiroz MD Primary Care Provider [phone] Fred Parker RN Unavailable [phone] Sherry Herbert Unavailable Reason for Visit * Reason Comments Med Refill Encounter Details Date Type Department Care Team (Late st Contact Info) Description 06/30/2025 Refill [facility] MED & PEDS [address] [place], [place] [phone] Amber Quiroz MD [address] [place], [place] [phone] Moderate persistent asthma without complication Social History [...] got money to buy more: Sometimes True 2024 Within the past 12 months,th e food you bought just didn't last and you didn't have enough money to get more: Sometimes True 06/23/2025 Transportation Answer Date Recorded In the past 12 months, has l ack of transportation kept you from medical appts, meetings, work or from getting things needed for daily living? Yes, it has kept me from medical appointments or getting medications. 06/23/2025 Utilities Answer Date Recorded In the past [...] Care Team (Late st Contact Info) Description 07/31/2025 3:00 PM EST Clinical Support [facility] MED & PEDS [address] [place] [address] Rachelle Lucero RN [address] [place] [address] 11/04/2025 1:30 PM EDT Office Visit [facility] OPTOMETRY [address] [place] [address] Comfort Chang, OD [address] [place] [address] documented as of this encounter Visit Diagnoses Diagnosis Moderate persistent asthma without complication documented in this encounter Additional Health Concerns Assessment Noted Time PHQ-9 Depression Total Score: 9 12/03/19 25 4:14 PM EDT documented as of this encounter Care Teams Retort Load Expediter Relationship Specialty Start Date End Date Amber Quiroz MD [address] [place] [address] PCP - General Family Medicine 07/03/18 Fred Parker, RN [address] [place] [address] Registered Nurse Family Medicine 04/16/25 Sherry Herbert 04/16/25 documented as of this encounter
--- OUTSIDE RECORDS SUMMARY | 2025-07-01 00:49 | XMS_ITS | Encounter Summary ---
Author Organization [employer] Address [address] [facility] 7t [place] [address] Care Team Providers Care Pararescue Manager Name Role Phone Amber Quiroz MD Primary Care Provider [phone] Fred Parker RN Unavailable [phone] Sherry Herbert Unavailable Reason for Visit * Reason Onset Date Comments Med Refill 01/10/2024 Encounter Details Date Type Department Care Team (Late st Contact Info) Description 01/10/2024 Telephone [facility] MEDICINE 230 [place] [address] Amber Quiroz MD [address] [place], [place] [phone] Med Refill Social History Tobacco Use Types [...] immediate release tablet To be sent to: [facility] - [place], [place] - [address] [facility] documented in this encounter Plan of Treatment Upcoming Encounters Date Type Department Care Team (Late st Contact Info) Description 07/31/2025 3:00 PM EST Clinical Support [facility] CHC MED & PEDS [address] [place] [address] Rachelle Lucero RN 505 [place] [address] 11/04/2025 1:30 PM EDT Office Visit [facility] OPTOMETRY [address] [place] [address] Comfort Chang, OD 230 [place] [address] documented as of this encounter Visit Diagnoses Not on filedocumented in this encounter Care Teams Pararescue Manager Relationship Specialty Start Date End Date Amber Quiroz MD [address] [place] [address] PCP - General Family Medicine 07/03/18 Fred Parker, DOROTA [address] [place] [address] Registered Nurse Family Medicine 04/16/25 Sherry Herbert 04/16/25 documented as of this encounter
--- OUTSIDE RECORDS SUMMARY | 2025-07-01 00:49 | XMS_ITS | Encounter Summary ---
Author Organization [employer] Address [address] [facility] [address] 7t [place] [address] Care Team Providers Care Director Of Consumer Marketing Name Role Phone Amber Quiroz MD Primary Care Provider [phone] Fred Parker RN Unavailable [phone] Sherry Herbert Unavailable Encounter Details Date Type Department Care Team (Late st Contact Info) Description 11/24/2023 Telephone [facility] MEDICINE [address] [place] [address] Amber Quiroz MD [address] [place] [address] Social History Tobacco Use Types [...] Description 07/31/2025 3:00 PM EST Clinical Support [facility] CHC MED & PEDS [address] [place] [address] Rachelle Lucero RN 505 [place] [address] 11/04/2025 1:30 PM EDT Office Visit [facility] OPTOMETRY [address] [place] [address] Comfort Chang, OD [address] [place] [address] documented as of this encounter Visit Diagnoses Not on filedocumented in this encounter Care Teams Director Of Consumer Marketing Relationship Specialty Start Date End Date Amber Quiroz MD [address] [place] [address] PCP - General Family Medicine 07/03/18 Fred Parker, DOROTA [address] [place] [address] Registered Nurse Family Medicine 04/16/25 Sherry Herbert 04/16/25 documented as of this encounter
--- OUTSIDE RECORDS SUMMARY | 2025-07-01 00:49 | XMS_ITS | Encounter Summary ---
Author Organization [employer] Address [address] [facility] 7t [place] [address] Care Team Providers Care Passenger Elevator Operator Name Role Phone Amber Quiroz MD Primary Care Provider [phone] Fred Parker RN Unavailable [phone] Sherry Herbert Unavailable Encounter Details Date Type Department Care Team (Late st Contact Info) Description 12/12/2023 Orders Only [facility] MEDICINE [address] [place], [place] [phone] Amber Quiroz MD [address] [place] [address] Nephrolithiasis (Primary Dx) Social History [...] Description 07/31/2025 3:00 PM EST Clinical Support [facility] CHC MED & PEDS 505 [place] [address] Rachelle Lucero, DOROTA [address] [place] [address] 11/04/2025 1:30 PM EDT Office Visit [facility] OPTOMETRY [address] [place] [address] Comfort Chang, OD 230 [place] [address] documented as of this encounter Visit Diagnoses Diagnosis Nephrolithiasis- Primary Calculus of kidney documented in this encounter Care Teams Passenger Elevator Operator Relationship Specialty Start Date End Date Amber Quiroz MD [address] [place] [address] PCP - General Family Medicine 07/03/18 Fred Parker, RN [address] [place] [address] Registered Nurse Family Medicine 04/16/25 Sherry Herbert 04/16/25 documented as of this encounter
--- OUTSIDE RECORDS SUMMARY | 2025-07-01 00:49 | XMS_ITS | Encounter Summary ---
Author Organization [employer] Address [address] [facility] 7t [place] [address] Care Team Providers Care Forensic Manager Name Role Phone Amber Quiroz MD Primary Care Provider [phone] Fred Parker RN Unavailable [phone] Sherry Herbert Unavailable Reason for Visit * Reason Comments Med Refill Encounter Details Date Type Department Care Team (Late st Contact Info) Description 06/01/2023 Refill [facility] MEDICINE 230 [place], [place] [phone] Amber Quiroz MD [address] [place], [place] [phone] Pain Social History Tobacco Use Types Packs/Day [...] Description 07/31/2025 3:00 PM EST Clinical Support [facility] CHC MED & PEDS 505 [place] [address] Rachelle Lucero RN [address] [place] [address] 11/04/2025 1:30 PM EDT Office Visit [facility] OPTOMETRY [address] [place] [address] Bernardo, Comfort, OD 230 [place] [address] documented as of this encounter Visit Diagnoses Diagnosis Pain Generalized pain documented in this encounter Care Teams Forensic Manager Relationship Specialty Start Date End Date Amber Quiroz MD [address] [place] [address] PCP - General Family Medicine 07/03/18 Fred Parker, RN [address] [place] [address] Registered Nurse Family Medicine 04/16/25 Sherry Herbert 04/16/25 documented as of this encounter
--- OUTSIDE RECORDS SUMMARY | 2025-07-01 00:49 | XMS_ITS | Encounter Summary ---
Author Organization [employer] Address [address] [facility] 7 [place] [address] Care Team Providers Care Programmer Engineering And Scientific Name Role Phone Amber Quiroz MD Primary Care Provider [phone] Fred Parker RN Unavailable [phone] Sherry Herbert Unavailable Reason for Visit * Reason Onset Date Comments Med Refill 05/14/2025 Encounter Details Date Type Department Care Team (Late st Contact Info) Description 05/14/2025 Telephone [facility] MEDICINE 230 [place] [address] Amber Quiroz MD 230 [place], [place] [phone] Med Refill Social History Tobacco Use Types [...] Description 07/31/2025 3:00 PM EST Clinical Support [facility] CHC MED & PEDS 505 [place] [address] Rachelle Lucero, DOROTA [address] [place] [address] 11/04/2025 1:30 PM EDT Office Visit [facility] OPTOMETRY [address] [place], [place] [phone] Comfort Chang, OD 230 [facility] [place] [address] documented as of this encounter Visit Diagnoses Not on filedocumented in this encounter Additional Health Concerns Assessment Noted Time PHQ-9 Depression Total Score: 9 12/03/19 25 4:14 PM EDT documented as of this encounter Care Teams Programmer Engineering And Scientific Relationship Specialty Start Date End Date Amber Quiroz MD 230 [place] [address] PCP - General Family Medicine 07/03/18 Fred Parker, DOROTA [address] [place] [address] Registered Nurse Family Medicine 04/16/25 Sherry Herbert 04/16/25 documented as of this encounter
--- OUTSIDE RECORDS SUMMARY | 2025-07-01 00:49 | XMS_ITS | Encounter Summary ---
Author Organization [employer] Address [address] [facility] 7t [place] [address] Care Team Providers Care Pricer Bagger Name Role Phone Amber Quiroz MD Primary Care Provider [phone] Fred Parker RN Unavailable [phone] Sherry Herbert Unavailable Reason for Visit * Reason Comments Med Refill Encounter Details Date Type Department Care Team (Late st Contact Info) Description 11/18/2024 Refill [facility] CHC MED & PEDS [address] [place], [place] [phone] Amber Quiroz MD 230 [place], [place] [phone] Nephrolithiasis Social History Tobacco Use Types Packs/Day [...] Description 07/31/2025 3:00 PM EST Clinical Support [facility] CHC MED & PEDS 505 [place] [address] Rachelle Lucero RN 505 [place] [address] 11/04/2025 1:30 PM EDT Office Visit [facility] OPTOMETRY [address] [place] [address] Bernardo, Comfort, OD [address] [place] [address] documented as of this encounter Visit Diagnoses Diagnosis Nephrolithiasis Calculus of kidney documented in this encounter Care Teams Pricer Bagger Relationship Specialty Start Date End Date Amber uQiroz MD 230 [place] [address] PCP - General Family Medicine 07/03/18 Fred Parker, DOROTA [address] [place] [address] Registered Nurse Family Medicine 04/16/25 Sherry Herbert 04/16/25 documented as of this encounter
--- OUTSIDE RECORDS SUMMARY | 2025-07-01 00:49 | XMS_ITS | Encounter Summary ---
Author Organization [employer] Address [address] [facility] 7t [place] [address] Care Team Providers Care Cigar Packer And Shader Name Role Phone Amber Quiroz MD Primary Care Provider Fred Parker RN Unavailable [phone] Sherry Herbert Unavailable Reason for Visit * Reason Onset Date Comments Appointment Request 11/22/2023 Encounter Details Date Type Department Care Team (Late st Contact Info) Description 11/22/2023 Telephone [facility] MEDICINE [address] [place] [address] Amber Quiroz MD [address] [place], [place] [phone] Appointment Request Social History Tobacco Use Types [...] due tosleep difficulty. Please contact pt at [phone]. documented in this encounter Plan of Treatment Upcoming Encounters Date Type Department Care Team (Late st Contact Info) Description 07/31/2025 3:00 PM EST Clinical Support [facility] CHC MED & PEDS [address] [place] [address] Rachelle Lucero RN [address] [place], [place] 11/04/2025 1:30 PM EDT Office Visit [facility] OPTOMETRY [address] [place] [address] Comfort Chang, OD 230 [place] [address] documented as of this encounter Visit Diagnoses Not on filedocumented in this encounter Care Teams Cigar Packer And Shader Relationship Specialty Start Date End Date Amber Quiroz MD [address] [place] [address] PCP - General Family Medicine 07/03/18 Fred Parker, RN 505 [place] [address] Registered Nurse Family Medicine 04/16/25 Sherry Herbert 04/16/25 documented as of this encounter
--- OUTSIDE RECORDS SUMMARY | 2025-07-01 00:49 | XMS_ITS | Encounter Summary ---
Author Organization [email or web address] Address [address] [place] [address] Care Team Providers Care Media Executive Name Role Phone Amber Quiroz MD Primary Care Provider [phone] Encounter Details Date Type Department Care Team (Late st Contact Info) Description 09/25/2024 Lab Requisition [facility] - Main Lab [address] [facility] [address] Zachery Chi, PUJA [address] [place] [address] Calculus of ureter Social History [...] LAB CHEMISTRY METHOD 09/25/2024 7:10 PM EDT [facility] Blood Venous blood specimen / Unknown 09/25/2024 3:15 PM EDT 09/25/2024 6:18 PM EDT us Zachery Chi PA LAB BLOOD ORDERABLES Final Res ult [facility] [address] [place] [address], documented in this encounter Visit Diagnoses Diagnosis Calculus of ureter documented in this encounter Care Teams Media Executive Relationship Specialty Start Date End Date Amber Quiroz MD [address] [place] [phone] PCP - General Family Medicine 05/13/25 documented as of this encounter
--- OUTSIDE RECORDS SUMMARY | 2025-07-01 00:49 | XMS_ITS | Encounter Summary ---
Author Organization [employer] Address [address] [facility] 7t [place] [address] Care Team Providers Care Marketing Services Manager Name Role Phone Amber Quiroz MD Primary Care Provider [phone] Fred Parker RN Unavailable [phone] Sherry Herbert Unavailable Reason for Visit * Reason Comments Med Refill Encounter Details Date Type Department Care Team (Late st Contact Info) Description 05/12/2025 Refill [facility] CHC MED & PEDS [address] [place], [place] [phone] Amber Quiroz MD [address] [place], [place] [phone] Flank pain; History of total knee replacement, [...] Fyi. REDMAN to pt via S ID# [id number]. Pt reminded again of the importance of keeping DIGITAL MEDIA SALES CONSULTANT appointment. R/s for 06/19/25 @1pm at [facility]. Pt informed this securities underwriter has limited availability at [facility] for last minute appointments. Pt stated she will have her daughter bring her to the appointment on 06/19 at [facility]. Initial DIGITAL MEDIA SALES CONSULTANT appointment was schedule at [facility]. * Telephone Encounter - Rachelle Lucero RN - 05/15/2025 11:39 AM EST Pt has been calling for Tramadol refill. No showed again to initial DIGITAL MEDIA SALES CONSULTANT appointment today. No refills? Also Oxycodone 5mg qty 12 was sent today by dentist, Bob Morel. Pt has a f/u with you on 05/26. Please advise. documented in this encounter Plan of Treatment Upcoming Encounters Date Type Department Care Team ([facility] st Contact Info) Description 07/31/2025 3:00 PM EST Clinical Support [facility] MED & PEDS [address] [place] [address] Rachelle Lucero RN [address] [place] [address] 11/04/2025 1:30 PM EDT Office Visit [facility] OPTOMETRY [address] [place] [address] Comfort Chang, OD [address] [place] [address] documented as of this encounter Visit Diagnoses [...] documented as of this encounter Care Teams Marketing Services Manager Relationship Specialty Start Date End Date Amber Quiroz MD [address] [place] [address] PCP - General Family Medicine 07/03/18 Fred Parker RN [address] [place] [address] Registered Nurse Family Medicine 04/16/25 Sherry Herbert 04/16/25 documented as of this encounter
--- OUTSIDE RECORDS SUMMARY | 2025-07-01 00:49 | XMS_ITS | Encounter Summary ---
Author Organization [employer] Address [address] [facility] 7t [place] [address] Care Team Providers Care Senior Branch Manager Name Role Phone Amber Quiroz MD Primary Care Provider [phone] Fred Parker RN Unavailable [phone] Shrery Herbert Unavailable Reason for Visit * Reason Onset Date Comments Nurse Triage 01/11/2024 Encounter Details Date Type Department Care Team (Late st Contact Info) Description 01/11/2024 Telephone [facility] MEDICINE [address] [place] [address] Amber Quiroz MD 230 [place], [place] [phone] Nurse Triage Social History Tobacco Use Types [...] [facility]. * Telephone Encounter - Lacy Sahni LPN - 01/11/2024 3:31 PM EDT Triage in process. Patient requesting pain medication for kidney stone pain in [facility] 01/07/24-01/08/24. Patient not seeing any [...] worse Override Notes: Seen and treated at [facility] known kidney stones wants something [...] Description 07/31/2025 3:00 PM EST Clinical Support [facility] CHC MED & PEDS [address] [place] [address] Rachelle Lucero, DOROTA [address] [place] [address] 11/04/2025 1:30 PM EDT Office Visit [facility] OPTOMETRY [address] [place] [address] Bernardo, Comfort, OD 230 [place] [address] documented as of this encounter Visit Diagnoses Not on filedocumented in this encounter Care Teams Senior Branch Manager Relationship Specialty Start Date End Date Amber Quiroz MD 230 [place] [address] PCP - General Family Medicine 07/03/18 Fred Parker, RN [address] [place] [address] Registered Nurse Family Medicine 04/16/25 Sherry Herbert 04/16/25 documented as of this encounter
--- OUTSIDE RECORDS SUMMARY | 2025-07-01 00:49 | XMS_ITS | Encounter Summary ---
Author Organization [employer] Address [address] [facility] 7t [place] [address] Care Team Providers Care Resin Remover Name Role Phone Amber Quiroz MD Primary Care Provider [phone] Fred Parker RN Unavailable [phone] Sherry Herbert Unavailable Reason for Visit * Reason Comments Med Refill Encounter Details Date Type Department Care Team (Late st Contact Info) Description 06/30/[address] [facility] [address] [place], [place] [phone] Dilcia Henry, ANP [address] [place] [address] Flank pain; History of total knee replacement, unspecified laterality; Primary osteoarthritis of left knee; Loin pain hematuria syndrome; Chronic back pain, unspecified back location, unspecified back pain laterality; Moderate persistent asthma without complication Social History [...] the past 12 months, has t he [employer] gas, oil or water company threatened to [...] Telephone Encounter - Amber Quiroz MD - 06/30/2025 3:42 PM EST Patient received oxycodone on 06/10 and tramadol on 06/17. She can only get up to 10 tabs every month. Too early to request. documented in this encounter Plan of Treatment Upcoming Encounters Date Type Department Care Team (Late st Contact Info) Description 07/31/2025 3:00 PM EST Clinical Support [facility] [address] [place] [address] Rachelle Lucero, DOROTA [address] [place] [address] 11/04/2025 1:30 PM EDT Office Visit [facility] [address] [place], [place] [phone] Comfort Chang, OD [address] [place] [address] documented as of this encounter Visit Diagnoses Diagnosis Flank pain Abdominal pain, unspecified site History of total knee replacement, unspecified laterality Primary osteoarthritis of left knee Loin pain hematuria syndrome Chronic back pain, unspecified back location, unspecified back pain laterality Moderate persistent asthma without complication documented in this encounter Additional Health Concerns Assessment Noted Time PHQ-9 Depression Total Score: 9 12/03/19 25 4:14 PM EDT documented as of this encounter Care Teams Resin Remover Relationship Specialty Start Date End Date Amber Quiroz MD [address] [place] [address] PCP - General Family Medicine 07/03/18 Fred Parker, RN [address] [place] [address] Registered Nurse Family Medicine 04/16/25 Sherry Herbert 04/16/25 documented as of this encounter
--- OUTSIDE RECORDS SUMMARY | 2025-07-01 00:49 | XMS_ITS | Encounter Summary ---
Author Organization [employer] Address [address] [place] [address] 7 [place] [address] Care Team Providers Care Live In Housekeeper Name Role Phone Amber Quiroz MD Primary Care Provider Fred Parker RN Unavailable [phone] Sherry Herbert Unavailable Encounter Details Date Type Department Care Team (Late st Contact Info) Description 05/13/2025 Orders Only [facility] [address] [place], [place] [phone] Provider, MD Inez Social History Tobacco Use [...] Upcoming Encounters Date Type Department Care Team ([facility] st Contact Info) Description 07/31/2025 3:00 PM EST Clinical Support [facility]EDS [address] [place] [address] Rachelle Lucero, DOROTA [address] [place] [address] 11/04/2025 1:30 PM EDT Office Visit [facility] OPTOM[facility] [address] [place] [address] Comfort Chang, OD [address] [place] [address] documented as of this encounter Procedures Procedure [...] documented as of this encounter Care Teams Live In Housekeeper Relationship Specialty Start Date End Date Amber Quiroz MD [address] [place] [address] PCP - General Family Medicine 07/03/18 Fred Parker, RN [address] [facility] [place] [address] Registered Nurse Family Medicine 04/16/25 Sherry Herbert 04/16/25 documented as of this encounter
--- OUTSIDE RECORDS SUMMARY | 2025-07-01 00:49 | XMS_ITS | Encounter Summary ---
Author Organization [employer] Address [address] [facility] 7t [place] [address] Care Team Providers Care It Admin Name Role Phone Amber Quiroz MD Primary Care Provider [phone] Fred Parker RN Unavailable [phone] Sherry Herbert Unavailable Encounter Details Date Type Department Care Team (Late st Contact Info) Description 09/04/2024 Orders Only [facility] MED[facility] [address] [place], [place] [phone] Amber Quiroz MD [address] [place], [place] [phone] Routine screening for STI (sexually transmitted infection) [...] Upcoming Encounters Date Type Department Care Team ([facility] st Contact Info) Description 07/31/2025 3:00 PM EST Clinical Support [facility] MED [facility] PEDS [address] [place] [address] Rachelle Lucero, RN [address] [place] [address] 11/04/2025 1:30 PM EDT Office Visit [facility] [address] [place] [address] Bernardo, Comfort, OD [address] [place] [address] Scheduled Orders Name Type Priority Associated Diagnoses [...] disease documented in this encounter Care Teams It Admin Relationship Specialty Start Date End Date Amber Quiroz MD [address] [place] [address] PCP - General Family Medicine 07/03/18 Fred Parker, DOROTA [address] [place] [address] Registered Nurse Family Medicine 04/16/25 Sherry Herbert 04/16/25 documented as of this encounter
--- OUTSIDE RECORDS SUMMARY | 2025-07-01 00:49 | XMS_ITS | Encounter Summary ---
Author Organization [employer] Address [address] [facility] 7 [place] [address] Care Team Providers Care Trolley Coach Driver Name Role Phone Amber Quiroz MD Primary Care Provider Fred Parker RN Unavailable [phone] Sherry Herbert Unavailable Encounter Details Date Type Department Care Team (Late st Contact Info) Description 11/16/2022 Abstract [facility] MEDICINE [address] [place], [place] [phone] Amber Quiroz MD [address] [place], [place] [phone] Social History Tobacco Use Types Packs/Day Years [...] Description 07/31/2025 3:00 PM EST Clinical Support [facility] MED & PEDS [address] [place] [address] Rachelle Lucero, RN [address] [place] [address] 11/04/2025 1:30 PM EDT Office Visit [facility] OPTOMETRY [address] [place], [place] [phone] Comfort Chang, OD [address] [place] [address] documented as of this encounter Visit Diagnoses Not on filedocumented in this encounter Care Teams Trolley Coach Driver Relationship Specialty Start Date End Date Amber Quiroz MD [address] [place], [place] [phone] PCP - General Family Medicine 07/03/18 Fred Parker, DOROTA [address] [place] [address] Registered Nurse Family Medicine 04/16/25 Sherry Herbert 04/16/25 documented as of this encounter
--- OUTSIDE RECORDS SUMMARY | 2025-07-01 00:49 | XMS_ITS | Encounter Summary ---
Author Organization [employer] Address 75 [facility] 7t [place] [address] Care Team Providers Care Taping Supervisor Name Role Phone Amber Quiroz MD Primary Care Provider [phone] Fred Parker RN Unavailable [phone] Sherry Herbert Unavailable Encounter Details Date Type Department Care Team (Late st Contact Info) Description 12/18/2024 Telephone [facility] MEDICINE [address] [place], [place] [phone] Amber Quiroz MD [address] [place], [place] [phone] Social History Tobacco Use Types Packs/Day Years [...] returning call. Pt provided temporary contact number [phone] documented in this encounter Plan of Treatment Upcoming Encounters Date Type Department Care Team (Late st Contact Info) Description 07/31/2025 3:00 PM EST Clinical Support [facility] MED [facility] PEDS [address] [place] [address] Rachelle Lucero, RN [address] [place] [address] 11/04/2025 1:30 PM EDT Office Visit [facility] OPTOMETRY [address] [place] [address] Bernardo, Comfort, OD [address] [place] [address] documented as of this encounter Visit Diagnoses Not on filedocumented in this encounter Additional Health Concerns Assessment Noted Time PHQ-9 Depression Total Score: 9 12/03/19 25 4:14 PM EDT documented as of this encounter Care Teams Taping Supervisor Relationship Specialty Start Date End Date Amber Quiroz MD [address] [place] [address] PCP - General Family Medicine 07/03/18 Fred Parker, DOROTA [address] [place] [address] Registered Nurse Family Medicine 04/16/25 Sherry Herbert 04/16/25 documented as of this encounter
--- OUTSIDE RECORDS SUMMARY | 2025-07-01 00:49 | XMS_ITS | Encounter Summary ---
Author Organization [employer] Address [address] [facility] [address]t [place] [address] Care Team Providers Care Deputy Commissioner Name Role Phone Amber Quiroz MD Primary Care Provider [phone] Fred Parker RN Unavailable [phone] Sherry Herbert Unavailable Encounter Details Date Type Department Care Team (Late st Contact Info) Description 12/14/2024 Orders Only [facility] MEDICINE [address] [place], [place] [phone] Amber Quiroz MD [address] [place], [place] [phone] Hyperglycemia (Primary Dx); Flank pain; Chronic thoracic [...] Description 07/31/2025 3:00 PM EST Clinical Support [facility] MED [facility] PEDS [address] [place] [address] Rachelle Lucero, RN [address] [place] [address] 11/04/2025 1:30 PM EDT Office Visit [facility] OPTOMETRY [address] [place] [address] BernardoComfort martinez, OD [address] [place] [address] Scheduled Orders Name Type Priority Associated Diagnoses [...] documented as of this encounter Care Teams Deputy Commissioner Relationship Specialty Start Date End Date Amber Quiroz MD [address] [place] [address] PCP - General Family Medicine 07/03/18 Fred Parker, DOROTA [address] [place] [address] Registered Nurse Family Medicine 04/16/25 Sherry Herbert 04/16/25 documented as of this encounter
--- OUTSIDE RECORDS SUMMARY | 2025-07-01 00:49 | XMS_ITS | Clinical Summary ---
Author Organization [facility] Address [address] [place] [address] Phone Care Team Providers Care Spool Winder Name Role Phone Amber Quiroz MD Primary Care Provider [phone] Allergies Active Allergy Reactions Criticality Noted Date Comments Aspirin Congestion of the throat 08/21/2024 Haloperidol 05/22/2025 Ibuprofen Swallowing Problem 08/21/2024 Ketorolac 05/22/2025 Acetaminophen Swallowing Problem 08/21/2024 Medications saccharomyces boulardii (FLORASTOR) 250 mg capsule Take 1 capsule (250 mg total) by mouth 2 (two) times a day. 60 capsule 06/08/2025 07/08/19 26 Active cefpodoxime (VANTIN) 200 mg tablet Take 1 tablet (200 mg total) by mouth 2 (two) times a day for 10 days. 20 each 05/22/2025 06/01/20 25 cephalexin (KEFLEX) 500 mg capsule Take 1 capsule (500 mg total) by mouth 4 (four) times a day for 5 days. 20 each 06/08/2025 06/13/20 25 Active Problems No known active problems Encounters Date Type Department Care Team Description 06/15/2025 10:54 PM EST - 06/16/2025 1:34 AM EST Emergency [facility] Emergency [address] [place] [address] Efren Ramesh MD Chronic pain syndrome (Primary Dx) Discharge Disposition: Home or Self Care 06/08/2025 12:32 PM EST - 06/08/2025 5:17 PM EST [facility] Emergency [address] [place] [phone] Alirio Page MD Acute flank pain (Primary Dx); Hematuria, unspecified type; Urinary tract infection in female Discharge Disposition: Home or Self Care 05/22/2025 10:50 AM EST - 05/22/2025 4:22 PM EST [facility] Emergency [address] [place] [phone] Simon Dalal MD Right flank pain (Primary Dx) Discharge Disposition: Home or Self Care 05/17/2025 4:35 AM EST - 05/17/2025 8:43 AM [facility] Emergency [address] [place] [phone] Francisco Walters MD Goebel, Mathew, MD Pyelonephritis (Primary Dx) Discharge Disposition: Home or Self Care 05/13/2025 5:03 AM EST - 05/13/2025 11:23 AM [facility] Emergency [address] [place] [phone] Felix Martino MD Reid, Oswald George, MD Abnormal urinalysis (Primary Dx); Drug-seeking behavior; Poorly-controlled hypertension; Pyelonephritis; Urinary tract infection with hematuria, site unspecified Discharge Disposition: Home or Self Care 04/18/2025 4:48 PM EDT - 04/18/2025 8:58 PM EDT [facility] Emergency [address] [place] [phone] Teo Holly MD Pyelonephritis (Primary Dx) Discharge [...] Sign Reading Time Taken Comments Blood Pressure 129/95 06/15/2025 11:02 PM EST Pulse 131 06/15/2025 11:02 PM EST Temperature 36.7 C (98 F) 06/15/2025 11:02 PM EST Respiratory Rate 22 06/15/2025 11:02 PM EST Oxygen Saturation 96% 06/15/2025 11:02 PM EST Inhaled Oxygen Concentration - - Weight 63.5 kg (140 lb) 06/16/2025 1:32 AM EST Height 154.9 cm (5' 0.98 ) 06/16/2025 1:32 AM ES T Body Mass Index 26.47 06/16/2025 1:32 AM EST Plan of Treatment Health Maintenance Due Date Last Done Comments Breast Cancer Screening 1965 Colorectal Cancer Screening: Colonoscopy 1964 Opioid Substance Agreement 1964 Pain Assessment 1964 Cervical Cancer Screening: Pap Smear 1985 RSV Immunization Adult Patients (1 - Risk 50-74 years 1-dose series) 2014 Cholesterol Screening (Lipid Panel) 05/31/2022 HIV Screening 05/31/2022 Hepatitis C Screening 05/31/2022 Social Influencers of Health Screening 05/31/2022 Zoster Vaccines (2 of 2) 05/29/2023 04/03/2023 Depression Screening 07/03/2024 COVID-19 Vaccine ( season) 2025 10/24/2024, 08/10/2021, 02/19/2021, Additional history exists Naloxone Order 03/27/2026 03/27/2025 Drug Screen 05/20/2026 05/20/2025, 05/03, 08/21/2024 Hypertension/CHF/CAD Annual BMP Blood Test 06/08/2026 06/08/2025, [...] Procedure Name Priority Date/Time Associated Diagnosis Comments VAUGHN URINE CULTURE TUBE Routine 06/15/20 11:39 PM EST EXTRA TUBES Routine 06/15/2025 11:39 PM EST URINALYSIS WITH REFLEX MICROSCOPIC STAT 06/15/2025 11:39 PM EST URINALYSIS WITH REFLEX MICROSCOPIC STAT 06/15/2025 11:39 PM EST ECG ANNOTATED 06/10/2025 VAUGHN URINE CULTURE TUBE STAT 06/08/20 4:08 PM EST URINALYSIS WITH REFLEX MICROSCOPIC [...] Results * (ABNORMAL) Urinalysis with reflex microscopic (06/15/2025 11:39 PM EST) Only the most recent of4 resultswithin the time period is included. Specific [place] Urine 1.015 1.003 - 1.030 LAB URINALYSIS - AUTOMATED METHOD 06/16/2025 1:10 AM [facility] pH, Urine 8.0 5.0 - 8.0 pH LAB URINALYSIS - AUTOMATED METHOD 06/16/2025 1:10 AM [facility] Leukocytes, Urine Trace(A) Negative LAB URINALYSIS - AUTOMATED METHOD 06/16/2025 1:10 AM [facility] Nitrite, Urine Negative Negative LAB URINALYSIS - AUTOMATED METHOD 06/16/2025 1:10 AM [facility] Protein, Urine 100(A) <=Trace mg/dL LAB URINALYSIS - AUTOMATED METHOD 06/16/2025 1:10 AM [facility] Glucose, Urine Negative Negative mg/dL LAB URINALYSIS - AUTOMATED METHOD 06/16/2025 1:10 AM [facility] Ketones, Urine Negative Negative mg/dL LAB URINALYSIS - AUTOMATED METHOD 06/16/2025 1:10 AM [facility] Urobilinogen, Urine 1.0 0.2 - 1.0 mg/dL LAB URINALYSIS - AUTOMATED METHOD 06/16/2025 1:10 AM [facility] Bilirubin, Urine Negative Negative LAB URINALYSIS - AUTOMATED METHOD 06/16/2025 1:10 AM [facility] Blood, Urine Large(A) Negative LAB URINALYSIS - AUTOMATED METHOD 06/16/2025 1:10 AM [facility] RBC, Urine >100(H) 0 - 4 /HPF 06/16/2025 1:10 AM [facility] WBC, Urine 20(H) 0 - 4 /HPF 06/16/2025 1:10 AM [facility] Squamous Epithelial, Urine 10 0 - 60 /LPF 06/16/2025 1:10 AM [facility] Bacteria, Urine Many(A) Negative /HPF 06/16/2025 1:10 AM [facility] Hyaline Casts, Urine 4(H) 0 - 3 /LPF 06/16/2025 1:10 AM [facility] Mucus, Urine Negative None /HPF 06/16/2025 1:10 AM [facility] Urine Urine specimen obtained by clean catch procedure / Unknown Non-blood Collection / Unknown 06/15/2025 11:39 PM EST 06/16/2025 12:20 AM EST us Efren Ramesh MD LAB URINE ORDERABLES Leidy l Result [facility] [address] [place] [address], [place] [phone] * Vaughn urine culture tube (06/15/2025 11:39 PM EST) Only the most recent of3 resultswithin the time period is included. [facility] Extra Tube Hold for add-ons. 06/16/2025 2:01 AM EST [facility] Comment:Auto resulted. Urine Urine specimen obtained by clean catch procedure / Unknown Non-blood Collection / Unknown 06/15/2025 11:39 PM EST 06/16/2025 12:21 AM EST Efren Ramesh MD LAB URINE ORDERABLES Leidy l Result [facility] [address] [place] [address], [place] [phone] * ECG-Annotated (06/10/2025) Provider Onbase ECG ORDERABLES Final Result * (ABNORMAL) Urinalysis with reflex microscopic and culture (06/08/2025 4:08 PM EST) Only the most recent of2 resultswithin the time period is included. [facility] Specific [place] Urine >1.045(H) 1.003 - 1.030 LAB URINALYSIS - AUTOMATED METHOD 06/08/2025 5:13 PM [facility] pH, Urine 6.5 5.0 - 8.0 pH LAB URINALYSIS - AUTOMATED METHOD 06/08/2025 5:13 PM [facility] Leukocytes, Urine Negative Negative LAB URINALYSIS - AUTOMATED METHOD 06/08/2025 5:13 PM [facility] Nitrite, Urine Negative Negative LAB URINALYSIS - AUTOMATED METHOD 06/08/2025 5:13 PM [facility] Protein, Urine Negative <=Trace mg/dL LAB URINALYSIS - AUTOMATED METHOD 06/08/2025 5:13 PM [facility] Glucose, Urine Negative Negative mg/dL LAB URINALYSIS - AUTOMATED METHOD 06/08/2025 5:13 PM EST [facility] Ketones, Urine Negative Negative mg/dL LAB URINALYSIS - AUTOMATED METHOD 06/08/2025 5:13 PM [facility] Urobilinogen , Urine 0.2 0.2 - 1.0 mg/dL LAB URINALYSIS - AUTOMATED METHOD 06/08/2025 5:13 PM [facility] Bilirubin, Urine Negative Negative LAB URINALYSIS - AUTOMATED METHOD 06/08/2025 5:13 PM [facility] Blood, Urine Negative Negative LAB URINALYSIS - AUTOMATED METHOD 06/08/2025 5:13 PM [facility] Urine Urine specimen obtained by clean catch procedure / Unknown Non-blood Collection / Unknown 06/08/2025 4:08 PM EST 06/08/2025 4:47 PM EST us Alirio Page MD LAB URINE ORDERABLES Final Result [facility] [address] [place] [address], * CT Abdomen Pelvis w Contrast (06/08/2025 [...] Signed Date: 06/08/2025 15:37 ET Workstation ID: [id number] Transcribed By: Self Edit Transcribed Date: 06/08/2025 [...] Signed Date: 06/08/2025 15:37 ET Workstation ID: [id number] Transcribed By: Self Edit Transcribed Date: 06/08/2025 15:31 ET us Alirio Page MD IMG CT PROCEDURES Final [...] Signed Date: 06/08/2025 13:51 ET Workstation ID: [id number] Transcribed By: Self Edit Transcribed Date: 06/08/2025 [...] normal. -------- FINAL REPORT -------- Dictated By: GINGER, CARLOS Dictated Date: 06/08/2025 13:49 ET Assigned Physician: CARLOS DORAN Reviewed and Electronically Signed By: CARLOS DORAN Signed Date: 06/08/2025 13:51 ET Workstation ID: [id number] Transcribed By: Self Edit Transcribed Date: 06/08/2025 13:50 ET us Alirio Page MD IMG XR PROCEDURES Final Res ult * 12-Lead ECG (06/08/2025 1:33 PM EST) [facility] Ventricular Rate ECG 70 BPM GEMUSE Atrial Rate 70 BPM GEMUSE P-R Interval 134 ms GEMUSE QRS Duration 86 ms GEMUSE Q-T Interval 400 ms GEMUSE QTc 432 ms GEMUSE P Wave [place] 4 degrees GEMUSE R [place] 23 degrees GEMUSE T [place] 43 degrees GEMUSE ECG Interpretation Normal sinus rhythm Normal ECG When compared with ECG of 21-AUG-2024 16:34, No significant change was found Confirmed by Jerson ROSE, KODI ([id number]) on 06/08/2025 5:55:53 PM GEMUSE 06/08/2025 1:33 PM EST 06/08/2025 5:55 PM EST us Alirio Page MD ECG ORDERABLES Final Resul t Performing Organization Address City/[facility]/ZIP Co de Phone Number GEMUSE * Troponin I High Sensitivity (06/08/2025 1:23 PM EST) [facility] High Sensitivity Troponin I <3 <=34 ng/L 06/08/2025 2:00 PM EST [facility] Blood Venous blood specimen / Unknown Venipuncture / Unknown 06/08/2025 1:23 PM EST 06/08/2025 1:34 PM EST us Alirio Page MD LAB BLOOD ORDERABLES Final Result [facility] [address] [place] [address], [place] [phone] * (ABNORMAL) CBC auto differential (06/08/2025 1:23 PM EST) Only the most recent of5 resultswithin the time period is included. WBC 3.2(L) 4.8 - 10.8 K/mcL LAB HEMETOLOGY METHOD 06/08/2025 1:41 PM [facility] RBC 4.20 3.80 - 4.80 M/mcL LAB HEMETOLOGY METHOD 06/08/2025 1:41 PM [facility] Hemoglobin 11.4(L) 11.5 - 16.0 g/dL LAB HEMETOLOGY METHOD 06/08/2025 1:41 PM [facility] Hematocrit 35.3 35.0 - 47.0 % LAB HEMETOLOGY METHOD 06/08/2025 1:41 PM [facility] MCV 83.6 79.0 - 98.0 FL LAB HEMETOLOGY METHOD 06/08/2025 1:41 PM [facility] MCH 27.0 27.0 - 32.0 pcg LAB HEMETOLOGY METHOD 06/08/2025 1:41 PM [facility] MCHC 32.3 32.0 - 37.0 g/dL LAB HEMETOLOGY METHOD 06/08/2025 1:41 PM [facility] RDW 14.6 11.0 - 15.0 % LAB HEMETOLOGY METHOD 06/08/2025 1:41 PM [facility] Platelets 227 130 - 400 K/mcL LAB HEMETOLOGY METHOD 06/08/2025 1:41 PM [facility] MPV 9.3 7.0 - 11.0 FL LAB HEMETOLOGY METHOD 06/08/2025 1:41 PM [facility] NRBC 0.0 <1.0 % LAB HEMETOLOGY METHOD 06/08/2025 1:41 PM [facility] NRBC Absolute 0.00 <0.10 K/mcL LAB HEMETOLOGY METHOD 06/08/2025 1:41 PM [facility] Neutrophils Relative 41.2 % LAB HEMETOLOGY METHOD 06/08/2025 1:41 PM [facility] Lymphocytes Relative 47.4 % LAB HEMETOLOGY METHOD 06/08/2025 1:41 PM [facility] Monocytes Relative 7.7 % LAB HEMETOLOGY METHOD 06/08/2025 1:41 PM [facility] Eosinophils Relative 3.1 % LAB HEMETOLOGY METHOD 06/08/2025 1:41 PM [facility] Basophils Relative 0.6 % LAB HEMETOLOGY METHOD 06/08/2025 1:41 PM [facility] Immature Granulocytes Relative 0.0 % LAB HEMETOLOGY METHOD 06/08/2025 1:41 PM [facility] Neutrophils Absolute 1.33(L) 1.50 - 7.00 K/mcL LAB HEMETOLOGY METHOD 06/08/2025 1:41 PM [facility] Lymphocytes Absolute 1.53 1.00 - 5.00 K/mcL LAB HEMETOLOGY METHOD 06/08/2025 1:41 PM [facility] Monocytes Absolute 0.25 0.20 - 1.00 K/mcL LAB HEMETOLOGY METHOD 06/08/2025 1:41 PM [facility] Eosinophils Absolute 0.10 0.00 - 0.50 K/mcL LAB HEMETOLOGY METHOD 06/08/2025 1:41 PM [facility] Basophils Absolute 0.02 0.00 - 0.20 K/mcL LAB HEMETOLOGY METHOD 06/08/2025 1:41 PM [facility] Immature Granulocytes Absolute 0.00 0.00 - 0.03 K/mcL LAB HEMETOLOGY METHOD 06/08/2025 1:41 PM EST [facility] Blood Venous blood specimen / Unknown Venipuncture / Unknown 06/08/2025 1:23 PM EST 06/08/2025 1:34 PM EST us Alirio Page MD LAB BLOOD ORDERABLES Final Result Performing Organization Address City/[facility]/ZIP Co de Phone Number [facility] [address] [place] [address], [place] [phone] * Magnesium (06/08/2025 1:23 PM EST) Only the most recent of3 resultswithin the time period is included. Magnesium 1.9 1.9 - 2.6 mg/dL 06/08/2025 2:03 PM EST [facility] Blood Venous blood specimen / Unknown Venipuncture / Unknown 06/08/2025 1:23 PM EST 06/08/2025 1:34 PM EST us Alirio Page MD LAB BLOOD ORDERABLES Final Result Performing Organization Address [facility] Co de Phone Number [facility] [address] [place] [address], [place] [phone] * Lipase (06/08/2025 1:23 PM EST) Only the most recent of3 resultswithin the time period is included. Lipase 30 12 - 53 unit/L 06/08/2025 2:03 PM EST [facility] Blood Venous blood specimen / Unknown Venipuncture / Unknown 06/08/2025 1:23 PM EST 06/08/2025 1:34 PM EST us Alirio Page MD LAB BLOOD ORDERABLES Final Result Performing Organization Address City/[facility]/ZIP Co de Phone Number [facility] [address] [place] [address], [place] [phone] * (ABNORMAL) Comprehensive Metabolic Panel (CMP) (06/08/2025 1:23 PM EST) Only the most recent of5 resultswithin the time period is included. Sodium 143 133 - 145 mmol/L 06/08/2025 2:03 PM [facility] Potassium 3.8 3.5 - 5.5 mmol/L 06/08/2025 2:03 PM [facility] Chloride 110 96 - 110 mmol/L 06/08/2025 2:03 PM [facility] CO2 25 21 - 32 mmol/L 06/08/2025 2:03 PM [facility] Anion Gap 8 3 - 11 06/08/2025 2:03 PM [facility] Glucose 109(H) 70 - 100 mg/dL 06/08/2025 2:03 PM [facility] BUN 11 5 - 25 mg/dL 06/08/2025 2:03 PM [facility] Creatinine 0.63 0.50 - 1.10 mg/dL 06/08/2025 2:03 PM [facility] eGFR 102 >=60 mL/min/1. 73m2 06/08/2025 2:03 PM [facility] Comment:Calculation based on the Chronic Kidney Disease Epidemiology Collaboration (CKD-EPI) equation refit without adjustment for race. BUN/Creatinine Ratio 17.5 06/08/2025 2:03 PM [facility] Calcium 8.3(L) 8.5 - 10.5 mg/dL 06/08/2025 2:03 PM [facility] AST (SGOT) 20 10 - 42 unit/L 06/08/2025 2:03 PM [facility] ALT (SGPT) 13 10 - 60 unit/L 06/08/2025 2:03 PM [facility] Alkaline Phosphatase 95 42 - 121 unit/L 06/08/2025 2:03 PM EST [facility] Total Protein 6.2 6.0 - 8.0 g/dL 06/08/2025 2:03 PM EST [facility] Albumin 3.9 3.2 - 5.0 g/dL 06/08/2025 2:03 PM EST [facility] Total Bilirubin 0.3 0.0 - 1.4 mg/dL 06/08/2025 2:03 PM EST [facility] Blood Venous blood specimen / Unknown Venipuncture / Unknown 06/08/2025 1:23 PM EST 06/08/2025 1:34 PM EST us Alirio Page MD LAB BLOOD ORDERABLES Final Result Performing Organization Address City/State/[facility] Co de Phone Number [facility] [address] [place] [address], * CT Abdomen Pelvis wo Contrast (05/22/2025 [...] Signed Date: 05/22/2025 13:03 ET Workstation ID: [id number] Transcribed By: Self Edit Transcribed Date: 05/22/2025 [...] Signed Date: 05/22/2025 13:03 ET Workstation ID: [id number] Transcribed By: Self Edit Transcribed Date: 05/22/2025 12:59 ET us Simon Dalal MD IMG CT PROCEDURES Final Re sult * Culture urine (05/22/2025 12:02 PM EST) Only the most recent of2 resultswithin the time period is included. Culture, Urine 10,000-49,000 CFU/mL Mixed urogenital geovanny, no uropathogens present. Suggest repeat specimen if clinically indicated. 05/23/2025 11:05 AM EST [facility] Urine Urine specimen obtained by clean catch procedure / Unknown Non-blood Collection / Unknown 05/22/2025 12:02 PM EST 05/22/2025 12:39 PM EST Simon Dalal MD LAB MICROBIOLOGY - GENERAL ORDERABLES Final Result [facility] [address] [place] [address], [place] [phone] * [place] Retroperitoneal Limited (05/17/2025 7:03 AM [...] Signed Date: 05/17/2025 07:58 ET Workstation ID: [id number] Transcribed By: Self Edit Transcribed Date: 05/17/2025 [...] Signed Date: 05/17/2025 07:58 ET Workstation ID: [id number] Transcribed By: Self Edit Transcribed Date: 05/17/2025 07:54 ET us Francisco Walters MD [facility] PROCEDURES Final Res ult * (ABNORMAL) Drug abuse screen 8a panel, urine (05/17/2025 6:55 AM EST) [facility] Amphetamine Screen, Ur Negative Negative LAB CHEMISTRY METHOD 7:43 AM [facility] Comment:Certain OTC medicati ons containing ephedrine, phenylephrine, pseudoephedrine and phenylpropanolamine can cause false positive results. Barbiturate Screen, Ur Negative Negative LAB CHEMISTRY METHOD 5 7:43 AM [facility] Benzodiazepine Screen, Ur Positive(A ) Negative LAB CHEMISTRY METHOD 7:43 AM [facility] Cocaine Screen, Ur Positive(A ) Negative LAB CHEMISTRY METHOD 7:43 AM [facility] Opiate Screen, Ur Positive(A ) Negative LAB CHEMISTRY METHOD 5 7:43 AM [facility] Cannabinoid (THC) Screen, Ur Positive(A ) Negative LAB CHEMISTRY METHOD 5 7:43 AM [facility] Comment:Specimens from patie nts taking pantoprazole sodium (Protonix) have been shown to produce false positive results. Oxycodone Screen, Ur Positive(A ) Negative LAB CHEMISTRY METHOD 5 7:43 AM [facility] Fentanyl, Ur Negative Negative LAB CHEMISTRY METHOD 5 7:43 AM [facility] Urine Urine specimen obtained by clean catch procedure / Unknown Non-blood Collection / Unknown 05/17/2025 6:55 AM EST 05/17/2025 7:13 AM EST [facility] - 05/17/2025 7:43 AM EST Assay cutoffs: Amphetamines 1000 ng/mL Barbiturates 200 ng/mL Benzodiazepines 200 ng/mL Cocaine 300 ng/mL Fentanyl 1 ng/mL Opiates 300 ng/mL Oxycodone 100 ng/mL THC 50 ng/mL Semi-quantitative assay for screening purposes only. Unconfirmed screening result should not be used for non-medical purposes. *ALTERNATE METHOD CONFIRMATION DONE UPON REQUEST ONLY* Francisco Walters MD LAB URINE ORDERABLES Final Result [facility] [address] [place] [address], [place] [phone] * Lactate, with reflex (05/13/2025 6:02 AM EST) LACTIC ACID 1.2 0.4 - 2.0 mmol/L LAB CHEMISTRY METHOD 05/13/2025 6:43 AM EST [facility] Blood Venous blood specimen / Unknown Venipuncture / Unknown 05/13/2025 6:02 AM EST 05/13/2025 6:16 AM EST Felix Martino MD LAB BLOOD ORDERABLES Final Res ult Performing Organization Address [facility]/ZIP Co de Phone Number [facility] [address] [place] [address], [place] [phone] * Blood Culture, Peripheral #2 (05/13/2025 6:02 AM EST) Only the most recent of2 resultswithin the time period is included. Culture, Blood No growth at 5 days LAB MICROBIOLOGY METHOD 05/18/2025 8:01 AM EST [facility] Blood Venous blood specimen / Unknown Venipuncture / Unknown 05/13/2025 6:02 AM EST 05/13/2025 6:17 AM EST us Felix Martino MD LAB MICROBIOLOGY - GENERAL ORD ERABLES Final Result [facility] [address] [place] [address], [place] [phone] * Prothrombin time with INR (05/13/2025 6:02 AM EST) Protime 12.0 10.6 - 13.9 sec LAB COAGULATION METHOD 05/13/2025 6:26 AM EST [facility] INR 1.0 LAB COAGULATION METHOD 05/13/2025 6:26 AM EST [facility] Blood Venous blood specimen / Unknown Venipuncture / Unknown 05/13/2025 6:02 AM EST 05/13/2025 6:17 AM EST Felix Martino MD LAB BLOOD ORDERABLES Final Res ult Performing Organization Address [facility]/ZIP Co de Phone Number [facility] [address] [place] [address], from Last 3 Months Insurance [place] [id number] MEDICAID - [place] Care Teams Spool Winder Relationship Specialty Start Date End Date Amber Quiroz MD [address] [place] [phone] PCP - General Family Medicine 05/13/25
--- OUTSIDE RECORDS SUMMARY | 2025-07-01 00:49 | XMS_ITS | Encounter Summary ---
Author Organization [employer] Address [address] [facility] 7 [place] [address] Care Team Providers Care Paper Mill Superintendent Name Role Phone Amber Quiroz MD Primary Care Provider [phone] Fred Parker RN Unavailable Sherry Herbert Unavailable Reason for Referral * Consultation (Routine) - Closed Specialty Diagnoses / Procedures Referred By Catalina savage Referred To Contact Urology Diagnoses Nephrolithiasis Loin pain hematuria syndrome Recurrent urinary tract infection Amber Quiroz MD [address] [place] [address] Phone: tel: fax: [facility] Referral ID Status Reason Start Date Expiration Date V isits Requested Visits Authorized [id number] Closed Specialty Services Required 01/17/2025 01/17/2026 6 6 Encounter Details Date Type Department Care Team (Late st Contact Info) Description 01/17/2025 Orders Only [facility] MEDICINE [address] [place] [address] Amber Quiroz MD [address] [place] [address] Nephrolithiasis (Primary Dx); Loin pain [...] Description 07/31/2025 3:00 PM EST Clinical Support [facility] MED & PEDS [address] [place] [address] Rachelle Lucero, D[place] [address] [place] [address] 11/04/2025 1:30 PM EDT Office Visit [facility] OPTOMETRY [address] [place], [place] [phone] Comfort Chang, OD [address] [place] [address] Scheduled Referrals Name Type Priority Associated Diagnoses [...] documented as of this encounter Care Teams Paper Mill Superintendent Relationship Specialty Start Date End Date Amber Quiroz MD [address] [place] [phone] PCP - General Family Medicine 07/03/18 Fred Parker, D[place] [address] [place] [phone] Registered Nurse Family Medicine 04/16/25 Sherry Herbert 04/16/25 documented as of this encounter
--- OUTSIDE RECORDS SUMMARY | 2025-07-01 00:49 | XMS_ITS | Encounter Summary ---
Author Organization [employer] Address 75 [facility] 7 [place] [address] Care Team Providers Care Advertising Layout Worker Name Role Phone Amber Quiroz MD Primary Care Provider [phone] Frde Parker RN Unavailable [phone] Sherry Herbert Unavailable Reason for Visit * Reason Onset Date Comments Med Refill Dr. Morel continued pain medication 06/17/2025 Encounter Details Date Type Department Care Team (Late st Contact Info) Description 06/17/2025 Refill [facility] ADULT DENTAL [address] [place], [place] [phone] Bob Morel DDS [address] [place] [address] Pain, dental; History of tooth extraction, unspecified edentulism class [...] * Telephone Encounter - Raven Jeffers - 06/17/2025 12:45 PM EST Patient called in stating she is waiting for more medication for pain to be sent to pharmacy. She has called prior to as well. Please reach out to patient for medication clarification or to inform that medication has been sent DR documented in this encounter Plan of Treatment Upcoming Encounters Date Type Department Care Team (Late st Contact Info) Description 07/31/2025 3:00 PM EST Clinical Support [facility] CHC MED & PEDS 505 [place] [address] Rachelle Lucero, DOROTA 505 [place] [address] 11/04/2025 1:30 PM EDT Office Visit [facility] OPTOMETRY [address] [place] [address] Bernardo, Comfort, OD [address] [place] [address] documented as of this encounter Visit Diagnoses Diagnosis Pain, dental History of tooth extraction, unspecified edentulism class documented in this encounter Additional Health Concerns Assessment Noted Time PHQ-9 Depression Total Score: 9 12/03/19 25 4:14 PM EDT documented as of this encounter Care Teams Advertising Layout Worker Relationship Specialty Start Date End Date Amber Quiroz MD 230 [place] [address] PCP - General Family Medicine 07/03/18 Fred Parker, DOROTA [address] [place] [address] Registered Nurse Family Medicine 04/16/25 Sherry Herbert 04/16/25 documented as of this encounter
--- OUTSIDE RECORDS SUMMARY | 2025-07-01 00:49 | XMS_ITS | Encounter Summary ---
Author Organization [employer] Address 75 [facility] 7t [place] [address] Care Team Providers Care Legislative Director Name Role Phone Amber Quiroz MD Primary Care Provider [phone] Fred Parker RN Unavailable Sherry Herbert Unavailable Reason for Visit * Reason Onset Date Comments status of oral surgery appt 11/11/2024 Encounter Details Date Type Department Care Team ([facility] st Contact Info) Description 11/11/2024 Telephone [facility] CHC ADULT DENTAL [address] [place], [place] [phone] Francisco Mohan, TRAY [address] [place], [place] [phone] status of oral surgery appt Social History [...] Description 07/31/2025 3:00 PM EST Clinical Support [facility] CHC MED & PEDS [address] [place] [address] Rachelle Lucero, RN 505 [place] [address] 11/04/2025 1:30 PM EDT Office Visit [facility] OPTOMETRY [address] [place] [address] Comfort Chang, OD [address] [place] [address] documented as of this encounter Visit Diagnoses Not on filedocumented in this encounter Care Teams Legislative Director Relationship Specialty Start Date End Date Amber Quiroz MD 230 [place] [address] PCP - General Family Medicine 07/03/18 Fred Parker, RN [address] [place] [address] Registered Nurse Family Medicine 04/16/25 Sherry Herbert 04/16/25 documented as of this encounter
--- OUTSIDE RECORDS SUMMARY | 2025-07-01 00:49 | XMS_ITS | Encounter Summary ---
Author Organization [employer] Address [address] [place] [address] 7 [place] [address] Care Team Providers Care [facility] [employer] [facility] Lab Technician Name Role Phone Amber Quiroz MD Primary Care Provider [phone] Fred Parker RN Unavailable [phone] Sherry Herbert Unavailable Encounter Details Date Type Department Care Team (Late st Contact Info) Description 07/28/2022 Orders Only [facility] MEDICINE 230 [place], [place] [phone] Anabell Martinez LPN Social History Tobacco Use [...] Description 07/31/2025 3:00 PM EST Clinical Support [facility] CHC MED & PEDS [address] [place], [place] [phone] Rachelle Lucero, DOROTA 505 [place], [place] [phone] 11/04/2025 1:30 PM EDT Office Visit [facility] OPTOMETRY [address] [place] [address] Comfort Chang, OD 230 [place] [address] documented as of this encounter Procedures Procedure [...] (08/02/2022 12:29 AM EST) Color Urine Yellow [facility] Appearance Urine Turbid [facility] PH 6.5 5.0 - 9.0 [facility] Glucose Urine UA Negative Negative mg/dL [facility] Urine Blood Trace(A) Negative [facility] Specific [place] - Urine 1.020 1.005 - 1.025 [facility] Urine Protein 30 (1+)(A) Neg-Trace mg/dL [facility] Urine Ketones Negative Negative mg/dL [facility] Nitrite Urine Negative Negative [facility] Leukocyte Esterase Urine Large (3+)(A) Negative [facility] RBC Urine 0-2 0 - 2 /HPF [facility] Urine WBC >50(A) 0 - 5 /HPF [facility] Urine Squamous Epithelial Cell 6-10 0 - 2 /HPF [facility] Urine Bacteria 1+ None Seen [facility] Hyaline Casts, Urine 3-5 0 - 2 /LPF [facility] 08/02/2022 12:2 9 AM EST 08/02/2022 12:31 AM EST Narrative [facility] - 08/02/2022 12:50 AM EST Urine, Clean Catch [facility] External Provider LAB URI NE ORDERABLES Final Result Performing Organization Address [facility] Co de Phone Number [facility] [address] [place] [phone] * SARS-CoV-2 RNA, Influenza A/B, and RSV RNA, Ql NAAT (08/02/2022 12:17 AM EST) Influenza A PCR NEGATIVE Negative [facility] Influenza B PCR NEGATIVE Negative [facility] Resp Syncy Virus RNA Qual PCR NEGATIVE Negative [facility] SARS COV2 PCR NEGATIVE Negative [facility] SARS/Flu/RSV Note See Note [facility] Comment:All test results mus t [...] use by authorized laboratories.Testing performed on the [employer] GeneXpert utilizingreal-time RT-PCR.All SARS CoV2 and positive influenza A/B results arereported to [facility]. 08/02/2022 12:1 7 AM EST 08/02/2022 12:19 AM EST [facility] Exter nal Provider LAB MICROBIOLOGY - GENERAL ORDERABLES Final Result Performing Organization Address [facility] Co de Phone Number [facility] [address] [place] [phone] * (ABNORMAL) Basic Metabolic Panel (08/02/2022 12:17 AM EST) Sodium 140 135 - 145 mmol/L [facility] Potassium 3.9 3.3 - 5.1 mmol/L [facility] Chloride 105 96 - 108 mmol/L [facility] Carbon Dioxide 24 22 - 29 mmol/L [facility] Anion Gap 15 12 - 20 [facility] Urea Nitrogen (BUN) 14 9 - 16 mg/dL [facility] Creatinine, Serum 0.75 0.5 - 1.4 mg/dL [facility] Creatinine Clr Calc Pharmacy 71.4 [facility] Comment:Provided height and weight: 162.56 cm,63.503 kg.eGFR (calculated from the MDRD study equation) and eCrCl(calculated from the Cockcroft-Gault equation) are based ondifferent parameters and may not yield comparable results.If eCrCl result is absurd, please check patient'sheight/weight. Estimated Glomerular Filt Rate >60 [facility] Comment:NOTE: For -Am erican individuals, multiply the result by 1.210.Chronic Kidney Disease: Estimated GFR < 60 mL/min/1.95d5Heuhyl Kidney Disease: Estimated GFR < 15 mL/min/1.73m2 Glucose 119(H) 60 - 115 mg/dL [facility] Calcium 9.0 8.4 - 10.2 mg/dL [facility] 08/02/2022 12:1 7 AM EST 08/02/2022 12:19 AM EST [facility] External Provider LAB BLO OD ORDERABLES Final Result [facility] [address] [place] [phone] [phone] * (ABNORMAL) CBC auto differential (08/02/2022 12:17 AM EST) White Blood Count 6.4 4.8 - 10.8 X10*3/uL [facility] Red Blood Count 3.96(L) 4.20 - 5.50 X10*6/uL [facility] Hemoglobin 10.8(L) 12.0 - 16.0 g/dl [facility] Hematocrit 33.0(L) 37.0 - 47.0 % [facility] Mean Corpuscular Volume 83.3 80.0 - 98.0 fL [facility] Mean Corpuscular Hemoglobin 27.3 27.0 - 33.0 pg [facility] Mean Corpuscular HGB Conc 32.7 31.0 - 35.0 g/dl [facility] Red Cell Distribution Width 14.2 11.0 - 16.0 % [facility] Platelet Count 202 160 - 400 X10*3/uL [facility] Mean Platelet Volume 9.2(L) 9.4 - 12.3 fL [facility] Neutrophils Percent Auto 68.5 45 - 73 % [facility] Imm Gran Pct Auto 0.2 0.0 - 0.4 % [facility] Lymphocytes Percent Auto 21.9 20 - 40 % [facility] Monocytes Percent Auto 8.6 2 - 11 % [facility] Eosinophils Percent Auto 0.5 0 - 4 % [facility] Basophils Percent Auto 0.3 0 - 2 % [facility] NRBC Pct Auto 0.0 0.0 - 0.2 /100WBC [facility] Neutrophils Absolute Auto 4.4 2.0 - 8.3 x10*3/uL [facility] Imm Gran Abs Auto 0.01 0.00 - 0.03 X10*3/uL [facility] Lymphocytes Absolute Auto 1.4 1.2 - 4.9 X10*3/uL [facility] Monocytes Absolute Auto 0.6 0.1 - 1.2 X10*3/uL [facility] Eosinophils Absolute Auto 0.0 0.0 - 0.4 X10*3/uL [facility] Basophils Absolute Auto 0.0 0.0 - 0.2 X10*3/uL [facility] NRBC Abs Auto 0.000 0.0 - 0.012 X10*3/uL [facility] 08/02/2022 12:1 7 AM EST 08/02/2022 12:19 AM EST [facility] External Provider LAB BLO OD ORDERABLES Final Result Performing Organization Address City/[facility]/ZIP Co de Phone Number [facility] [address] [place] [phone] * Culture, Urine, Routine (08/02/2022 12:00 AM EST) 08/02/2022 08/02/2022 7:3 1 AM EST Comment:[facility] Narrative [facility] - 08/03/2022 9:19 AM EST Urine Culture No growth. Specimen Source: Urine clean catch [facility] Exter nal Provider LAB MICROBIOLOGY - GENERAL ORDERABLES Final Result Performing Organization Address [facility] Co de Phone Number [facility] [address] [place] [phone] documented in this encounter Visit Diagnoses Not on filedocumented in this encounter Care Teams [facility] [employer] [facility] Lab Technician Relationship Specialty Start Date End Date Amber Quiroz MD [address] [place] [address] PCP - General Family Medicine 07/03/18 Fred Parker, RN [address] [place] [address] Registered Nurse Family Medicine 04/16/25 Sherry Herbert 04/16/25 documented as of this encounter
--- OUTSIDE RECORDS SUMMARY | 2025-07-01 00:49 | XMS_ITS ---
Author Organization [employer] Address 75 [facility] 7 [place] [address] Care Team Providers Care Recoil Spring Winder Name Role Phone Amber Quiroz MD Primary Care Provider [phone] Fred Parker RN Unavailable [phone] Sherry Herbert Unavailable [facility] Status:Enrolled (Active) Start date:04/16/2025 Enrollment date:06/23/2025 Enrollment reason:ADT Feed Overview [facility] ED 04/15/25 Case Team Name Relationship Phone Sherry Herbert(Responsible Staff) Continued Care and Services Coordination
--- OUTSIDE RECORDS SUMMARY | 2025-07-01 00:49 | XMS_ITS | Encounter Summary ---
Author Organization [employer] Address 75 [facility] 7 [place] [address] Care Team Providers Care Balloon Seller Name Role Phone Amber Quiroz MD Primary Care Provider [phone] Fred Parker RN Unavailable [phone] Sherry Herbert Unavailable Reason for Visit * Reason Onset Date Comments DR BABIN 05/19/2025 Encounter Details Date Type Department Care Team (Late st Contact Info) Description 05/19/2025 Telephone [facility] ADULT DENTAL [address] [place], [place] [phone] Laurita Wilder DDS [address] [place] [address] DR BABIN Social History Tobacco Use Types [...] Description 07/31/2025 3:00 PM EST Clinical Support [facility] CHC MED & PEDS [address] [place] [address] Rachelle Lucero, DOROTA 505 [place] [address] 11/04/2025 1:30 PM EDT Office Visit [facility] OPTOMETRY [address] [place] [address] Comfort Chang, OD [address] [place] [address] documented as of this encounter Visit Diagnoses Not on filedocumented in this encounter Additional Health Concerns Assessment Noted Time PHQ-9 Depression Total Score: 9 12/03/19 25 4:14 PM EDT documented as of this encounter Care Teams Balloon Seller Relationship Specialty Start Date End Date Amber Quiroz MD [address] [place] [address] PCP - General Family Medicine 07/03/18 Fred Parker RN [address] [place] [address] Registered Nurse Family Medicine 04/16/25 Sherry Herbert 04/16/25 documented as of this encounter
--- OUTSIDE RECORDS SUMMARY | 2025-07-01 00:49 | XMS_ITS | Encounter Summary ---
Author Organization [employer] Address [address] [place] [address] 7 [place] [address] Care Team Providers Care Psychologist Counseling Name Role Phone Amber Quiroz MD Primary Care Provider [phone] Fred Parker RN Unavailable [phone] Sherry Herbert Unavailable Encounter Details Date Type Department Care Team (Late st Contact Info) Description 05/22/2025 Orders Only [facility] [address] [place], [place] [phone] Provider, MD Inez Social History Tobacco Use [...] Upcoming Encounters Date Type Department Care Team ([facility] st Contact Info) Description 07/31/2025 3:00 PM EST Clinical Support [facility] CHC MED & PEDS [address] [place] [address] Rachelle Lucero, RN 505 [place] [address] 11/04/2025 1:30 PM EDT Office Visit [facility] OPTOMETRY [address] [place] [address] Bernardo, Comfort, OD [address] [place] [address] documented as of this encounter Procedures Procedure Name Priority Date/Time Associated Diagnosis Comments CT ABDOMEN PELVIS WO CONTRAST Routine 06/15/2025 9:[address] ABDOMEN PELVIS WO CONTRAST Routine 05/22/2025 documented in this encounter Results * CT Abdomen Pelvis w/o Contrast (06/15/2025 9:04 AM EST) Anatomical Region Laterality Modality Body, Pelvis, Abdomen Computed T omography 06/15/2025 9:04 AM EST Narrative 06/15/2025 9:06 AM EST [facility] [address] [place] [address] CT Scan Report Signed Patient: John Marquez MR#: [id number] 760 : 1965 Acct:[id number] Age/Sex: 59 / F ADM Date: 06/15/25 Loc: HO.ED Attending Dr: Ordering Physician: Ariane Swan MD Date of Service: 06/15/25 Procedure(s): CT abdomen pelvis wo IV con Accession Number(s): [id number] cc: Ariane Swan MD; Amber Quiroz MD Report Number: [id number]: Total DLP = 468.00 mGy-cm Reason for Exam: right-sided abd pain, GB disease v. renal colic CLINICAL HISTORY: right-sided abd pain, GB disease v. renal colic CT abdomen and pelvis without contrast Comparison: CT/REG/SR - CT ABDOMEN PELVIS W IV CON - 04/19/25 05:14 EDT Findings: The lung bases are clear. The gallbladder, Liver, spleen, pancreas, and bilateral adrenal glands are within normal limits. Multiple bilateral punctate intrarenal stones are present measuring up to 3 mm in the right lower pole and 3 mm in the left upper pole. No hydronephrosis, ureteral stones, or hydroureter are identified. No abdominal or pelvic free fluid. No retroperitoneal lymphadenopathy. Aorta is nonaneurysmal. No bowel obstruction, pneumoperitoneum, or pneumatosis. Appendix is normal. Pelvic contents unremarkable. L3 vertebral body hemangioma, unchanged in appearance. No acute or suspicious osseous lesions. IMPRESSION: No acute intra-abdominal or pelvic findings. Multiple bilateral punctate nonobstructing renal calculi measuring up to 3 mm bilaterally. This document has been electronically signed by: Marcelo Salmon MD on 06/15/2025 09:04:08 Dictated By: Marcelo Salmon MD Signed By: <Electronically signed by Marcelo Salmon MD in OV> 06/15/25904 DD/ 3 TD/TT: 06/15/25903 Student Records Coordinator: Procedure Note Donotuseinterpreter, Image - 06/15/[address] [place] [address] [address] Scan Report Signed Patient: Heidi Marquez#: [id number] 760 : 1965Acct:[id number] Age/Sex: 59 / FADM Date: 06/15/25 Loc: HO.ED Attending Dr: Ordering Physician: Ariane Swan MD Date of Service: 06/15/25 Procedure(s): CT abdomen pelvis wo IV con Accession Number(s): [id number] cc: Ariane Swan MD; Amber Quiroz MD Report Number: [id number]: Total DLP = 468.00 mGy-cm Reason for Exam: right-sided abd pain, GB disease v. renal colic CLINICAL HISTORY: right-sided abd pain, GB disease v. renal colic CT abdomen and pelvis without contrast Comparison: CT/REG/SR - CT ABDOMEN PELVIS W IV CON - 04/19/25 05:14 EDT Findings: The lung bases are clear. The gallbladder, Liver, spleen, pancreas, and bilateral adrenal glands are within normal limits. Multiple bilateral punctate intrarenal stones are present measuring up to 3 mm in the right lower pole and 3 mm in the left upper pole. No hydronephrosis, ureteral stones, or hydroureter are identified. No abdominal or pelvic free fluid. No retroperitoneal lymphadenopathy. Aorta is nonaneurysmal. No bowel obstruction, pneumoperitoneum, or pneumatosis. Appendix isnormal. Pelvic contents unremarkable. L3 vertebral body hemangioma, unchanged in appearance. No acute or suspicious osseous lesions. IMPRESSION: No acute intra-abdominal or pelvic findings. Multiple bilateral punctate nonobstructing renal calculi measuring up to 3 mm bilaterally. This document has been electronically signed by: Marcelo Salmon MD on 06/15/2025 09:04:08 Dictated By: Marcelo Salmon MD Signed By: <Electronically signed by Marcelo Salmon MD in OV> 06/15/25904 DD/ 3 TD/TT: 06/15/25 09 Student Records Coordinator: [facility] External Provider IMG CT PROCEDURES Final Result * CT Abdomen Pelvis w/o Contrast (05/22/2025) [...] Date End Date Amber Quiroz MD [address] [place] [address] PCP - General Family Medicine 07/03/18 Fred Parker RN [address] [place] [phone] Registered Nurse Family Medicine 04/16/25 Sherry Herbert 04/16/25 documented as of this encounter
--- OUTSIDE RECORDS SUMMARY | 2025-07-01 00:49 | XMS_ITS | Encounter Summary ---
Author Organization [employer] Address [address] [place] [address] 7 [place] [address] Care Team Providers Care Gluing Crew Leader Name Role Phone Amber Quiroz MD Primary Care Provider Fred Parker RN Unavailable [phone] Sherry Herbert Unavailable Reason for Visit * Reason Comments Med Refill Encounter Details Date Type Department Care Team (Late st Contact Info) Description 11/29/2023 Refill [facility] MEDICINE [address] [place], [place] [phone] Charleen Latif MD [address] [place], [place] [phone] Nephrolithiasis Social History Tobacco Use Types Packs/Day [...] 07/31/2025 3:00 PM EST Clinical Support [facility] CHC MED & PEDS [address] [place] [address] Rachelle Lucero RN 505 [place] [address] 11/04/2025 1:30 PM EDT Office Visit [facility] OPTOMETRY [address] [place] [address] Bernardo, Comfort, OD [address] [place] [address] documented as of this encounter Visit Diagnoses Diagnosis Nephrolithiasis Calculus of kidney documented in this encounter Care Teams Gluing Crew Leader Relationship Specialty Start Date End Date Amber Quiroz MD [address] [place] [address] PCP - General Family Medicine 07/03/18 Fred Parker, RN [address] [place] [address] Registered Nurse Family Medicine 04/16/25 Sherry Herbert 04/16/25 documented as of this encounter
--- OUTSIDE RECORDS SUMMARY | 2025-07-01 00:49 | XMS_ITS | Encounter Summary ---
Author Organization [employer] Address 75 [facility] 7t [place] [address] Care Team Providers Care Housekeeper And Laundry Assistant Name Role Phone Amber Quiroz MD Primary Care Provider [phone] Fred Parker RN Unavailable [phone] Sherry Herbert Unavailable Encounter Details Date Type Department Care Team (Late st Contact Info) Description 03/07/2025 Orders Only [facility] MEDICINE 230 [place], [place] [phone] Amber Quiroz MD [address] [place], [place] [phone] Flank pain (Primary Dx); History of total [...] Description 07/31/2025 3:00 PM EST Clinical Support [facility] CHC MED & PEDS [address] [place] [address] Rachelle Lucero, RN [address] [place] [address] 11/04/2025 1:30 PM EDT Office Visit [facility] OPTOMETRY [address] [place] [address] Comfort Chang, OD [address] [place] [address] documented as of this encounter Procedures Procedure Name Priority Date/Time Associated Diagnosis Comments CT ABDOMEN PELVIS WO CONTRAST Routine 03/08/2025 1:06 PM EDT documented in this encounter Results * CT Abdomen Pelvis w/o Contrast (03/08/2025 1:06 PM EDT) Anatomical Region Laterality Modality Body, Pelvis, Abdomen Computed T omography 03/08/2025 1:06 PM EDT Narrative 03/08/2025 1:08 PM EDT [address] [address] [address] Scan Report Signed Patient: John Marquez MR#: [id number] 760 : 1965 Acct:[id number] Age/Sex: 59 / F ADM Date: 03/08/25 Loc: HO.ED Attending Dr: Ordering Physician: Kaia Hamilton Date of Service: 03/08/25 Procedure(s): CT abdomen pelvis wo IV con Accession Number(s): [id number] cc: Kaia Hamilton; Amber Quiroz MD Report Number: [id number]: Total DLP = 449.00 mGy-cm Reason for [...] 03/08/25 1307 DD/ 1306 TD/TT: 03/08/25 1306 Mental Health Professional: Procedure Note Donotuseinterpreter, Image - 03/08/[address] [address] [address] Scan Report Signed Patient: Heidi Marquez#: [id number] 760 : 1965Acct:[id number] Age/Sex: 59 / FADM Date: 03/08/25 Loc: HO.ED Attending Dr: Ordering Physician: Kaia Hamilton Date of Service: 03/08/25 Procedure(s): CT abdomen pelvis wo IV con Accession Number(s): [id number] cc: Kaia Hamilton; Amber Quiroz MD Report Number: [id number]: Total DLP = 449.00 mGy-cm Reason for [...] 03/08/25 1307 DD/ 1306 TD/TT: 03/08/25 1306 Mental Health Professional: [facility] External Provider IMG CT PROCEDURES [...] documented as of this encounter Care Teams Housekeeper And Laundry Assistant Relationship Specialty Start Date End Date Amber Quiroz MD [address] [place] [address] PCP - General Family Medicine 07/03/18 Fred Parker RN [address] [place] [address] Registered Nurse Family Medicine 04/16/25 Sherry Herbert 04/16/25 documented as of this encounter
--- OUTSIDE RECORDS SUMMARY | 2025-07-01 00:49 | XMS_ITS | Encounter Summary ---
Author Organization [employer] Address [address] [place] [address] 7 [place] [address] Care Team Providers Care Construction Site Manager Name Role Phone Amber Quiroz MD Primary Care Provider [phone] Fred Parker RN Unavailable [phone] Sherry Herbert Unavailable Reason for Visit * Reason Comments Med Refill Encounter Details Date Type Department Care Team (Late st Contact Info) Description 04/26/2023 Refill [facility] MEDICINE [address] [place], [place] [phone] Amber Quiroz MD [address] [place], [place] [phone] Nausea Social History Tobacco Use Types Packs/Day [...] Description 07/31/2025 3:00 PM EST Clinical Support [facility] MED & PEDS [address] [place], [place] [phone] Rachelle Lucero, DOROTA 505 [place], [place] [phone] 11/04/2025 1:30 PM EDT Office Visit [facility] OPTOMETRY [address] [place] [address] Comfort Chang, OD 230 [place] [address] documented as of this encounter Visit Diagnoses Diagnosis Nausea Nausea alone documented in this encounter Care Teams Construction Site Manager Relationship Specialty Start Date End Date Amber Quiroz MD [address] [place], [place] [phone] PCP - General Family Medicine 07/03/18 Fred Parker, DOROTA [address] [place] [address] Registered Nurse Family Medicine 04/16/25 Sherry Herbert 04/16/25 documented as of this encounter
--- OUTSIDE RECORDS SUMMARY | 2025-07-01 00:50 | XMS_ITS | Encounter Summary ---
Author Organization [employer] Address [address] [facility] 7 [place] [address] Care Team Providers Care Tufting Creeler Name Role Phone Amber Quiroz MD Primary Care Provider [phone] Fred Parker RN Unavailable [phone] Sherry Herbert Unavailable Reason for Visit * Reason Comments Med Refill Encounter Details Date Type Department Care Team (Late st Contact Info) Description 12/20/2024 Refill [facility] MEDICINE 230 [place], [place] [phone] Amber Quiroz MD 230 [place], [place] [phone] Nephrolithiasis Social History Tobacco Use Types Packs/Day [...] Description 07/31/2025 3:00 PM EST Clinical Support [facility] CHC MED & PEDS [address] [place] [address] Rachelle Lucero RN 505 [place] [address] 11/04/2025 1:30 PM EDT Office Visit [facility] OPTOMETRY [address] [place] [address] Bernardo, Comfort, OD [address] [place] [address] documented as of this encounter Visit Diagnoses Diagnosis Nephrolithiasis Calculus of kidney documented in this encounter Additional Health Concerns Assessment Noted Time PHQ-9 Depression Total Score: 9 12/03/19 25 4:14 PM EDT documented as of this encounter Care Teams Tufting Creeler Relationship Specialty Start Date End Date Amber Quiroz MD [address] [place] [address] PCP - General Family Medicine 07/03/18 Fred Parker, DOROTA 505 [place] [address] Registered Nurse Family Medicine 04/16/25 Sherry Herbert 04/16/25 documented as of this encounter
--- OUTSIDE RECORDS SUMMARY | 2025-07-01 00:50 | XMS_ITS | Encounter Summary ---
Author Organization [email or web address] Address [address] [facility] 7t [place] [address] Care Team Providers Care Crop Production Advisor Name Role Phone Amber Quiroz MD Primary Care Provider [phone] Fred Parker RN Unavailable [phone] Sherry Herbert Unavailable Reason for Visit * Reason Onset Date Comments Med Refill 06/21/2024 Encounter Details Date Type Department Care Team (Late st Contact Info) Description 06/21/2024 Telephone [facility] MEDICINE [address] [place] [address] Amber Quiroz MD 230 [place], [place] [phone] Med Refill Social History Tobacco Use Types [...] extra strength with no relief. Please advise. READING INSTRUCTOR checked 06/21/24. Last refill of Oxycodone 5mg 11/30/23 qty 12. * Telephone Encounter - Gemma Oliveira - 06/21/2024 10:12 AM EST TC from pt requesting medication refill. Medications needing refill : oxyCODONE (Oxy-IR) 5 MG immediate release capsule To be sent to: [facility] - [place] - [address] documented in this encounter Plan of Treatment Upcoming Encounters Date Type Department Care Team (Late st Contact Info) Description 07/31/2025 3:00 PM EST Clinical Support [facility] MED & PEDS [address] [place] Call [phone] Rachelle Lucero, DOR[place] 505 [place] [address] 11/04/2025 1:30 PM EDT Office Visit [facility] OPTOMETRY [address] [place] [address] Comfort Chang, OD 230 [place] [address] documented as of this encounter Visit Diagnoses Not on filedocumented in this encounter Care Teams Crop Production Advisor Relationship Specialty Start Date End Date Amber Quiroz MD 230 [place] [address] PCP - General Family Medicine 07/03/18 Fred Parker, DOROTA [address] [place] [address] Registered Nurse Family Medicine 04/16/25 Sherry Herbert 04/16/25 documented as of this encounter
--- OUTSIDE RECORDS SUMMARY | 2025-07-01 00:50 | XMS_ITS | Encounter Summary ---
Author Organization [employer] Address [address] [place] [address] 7 [place] [address] Care Team Providers Care Breeding Technician Name Role Phone Amber Quiroz MD Primary Care Provider [phone] Fred Parker RN Unavailable [phone] Sherry Herbert Unavailable Encounter Details Date Type Department Care Team (Late st Contact Info) Description 12/12/2022 Orders Only [facility] MEDICINE [address] [place], [place] [phone] Anabell Martinez LPN Social History Tobacco Use [...] Description 07/31/2025 3:00 PM EST Clinical Support [facility] CHC MED & PEDS [address] [place], [place] [phone] Rachelle Lucero, DOR[place] [address] [place], [place] [phone] 11/04/2025 1:30 PM EDT Office Visit [facility] OPTOMETRY [address] [place] [address] Comfort Chang, OD [address] [place] [address] documented as of this encounter Visit Diagnoses Not on filedocumented in this encounter Care Teams Breeding Technician Relationship Specialty Start Date End Date Amber Quiroz MD 230 [place] [address] PCP - General Family Medicine 07/03/18 Fred Parker RN [address] [place] [id number] Registered Nurse Family Medicine 04/16/25 Sherry Herbert 04/16/25 documented as of this encounter
--- OUTSIDE RECORDS SUMMARY | 2025-07-01 00:50 | XMS_ITS | Encounter Summary ---
Author Organization [employer] Address [address] [place] [address] 7 [place] [address] Care Team Providers Care Surgical Services Tech Name Role Phone Amber Quiroz MD Primary Care Provider [phone] Fred Parker RN Unavailable [phone] Sherry Herbert Unavailable Encounter Details Date Type Department Care Team (Late st Contact Info) Description 04/05/2023 Orders Only [facility] MED & PEDS [address] [place] [address] Anabell Martinez LPN Social History Tobacco Use [...] Upcoming Encounters Date Type Department Care Team ([facility] [place] Contact Info) Description 07/31/2025 3:00 PM EST Clinical Support [facility] MED & PEDS 505 [place] [address] Rachelle Lucero, RN 505 [place] [address] 11/04/2025 1:30 PM EDT Office Visit [facility] OPTOMETRY [address] [place], [place] [phone] Comfort Chang, OD 230 [place] [address] documented as of this encounter Visit Diagnoses Not on filedocumented in this encounter Care Teams Surgical Services Tech Relationship Specialty Start Date End Date Amber Quiroz MD 230 [place] [address] PCP - General Family Medicine 07/03/18 Fred Parker, DOROTA [address] [place] [address] Registered Nurse Family Medicine 04/16/25 Sherry Herbert 04/16/25 documented as of this encounter
--- OUTSIDE RECORDS SUMMARY | 2025-07-01 00:50 | XMS_ITS | Encounter Summary ---
Author Organization [employer] Address [address] [facility] 7t [place] [address] Care Team Providers Care Hearings Reporter Name Role Phone Amber Quiroz MD Primary Care Provider [phone] Fred Parker RN Unavailable [phone] Sherry Herbert Unavailable Reason for Visit * Reason Comments Med Refill Encounter Details Date Type Department Care Team (Late st Contact Info) Description 11/12/2024 Refill [facility] MEDICINE [address] [place], [place] [phone] Amber Quiroz MD [address] [place], [place] [phone] Moderate persistent asthma without complication Social History [...] 3:00 PM EST Clinical Support [facility] CHC MED & PEDS [address] [place] [address] Rachelle Lucero RN 505 [place] [address] 11/04/2025 1:30 PM EDT Office Visit [facility] OPTOMETRY [address] [place] [address] Bernardo, Comfort, OD [address] [place] [address] documented as of this encounter Visit Diagnoses Diagnosis Moderate persistent asthma without complication documented in this encounter Care Teams Hearings Reporter Relationship Specialty Start Date End Date Amber Quiroz MD 230 [place] [address] PCP - General Family Medicine 07/03/18 Fred Parker, RN [address] [place] [address] Registered Nurse Family Medicine 04/16/25 Sherry Herbert 04/16/25 documented as of this encounter
--- OUTSIDE RECORDS SUMMARY | 2025-07-01 00:50 | XMS_ITS | Clinical Summary ---
Author Organization [employer] Address [address] [place] [address] 7[address] [place] [address] Care Team Providers Care Fiberglass Grinder Name Role Phone Amber Quiroz MD Primary Care Provider [phone] Fred Parker RN Unavailable [phone] Sherry Herbert Unavailable Allergies Active Allergy [...] V A ORAL TODOS LOS D EN SHIMON GARCÍA 023 Active clonazePAM (KlonoPIN) 0.5 MG [...] PUFFS IN 24 HOURS. 18 g Active clonazePAM (KlonoPIN) 1 MG tablet TAKE 1 TABLET BY MOUTH ONCE A DAY NEEDED FOR SEVERE ANXIETY. UP TO 15 TIMES PER MONTH. Active traMADol (Ultram) 50 MG tabletIndications :Flank pain,History of total knee replacement, unspecified laterality,Primar y osteoarthritis of left knee,Loin pain hematuria syndrome,Chronic back pain, unspecified back location, unspecified back pain laterality TAKE 1 TABLET BY MOUTH EVERY 8 HOURS NEEDED FOR SEVERE PAIN 10 tablet Active chlorhexidine (Peridex) 0.12 % solution Use 15 mL in the mouth or throat if needed (for mouthwash 15 ml for 30 seconds, swish and spit) for up to 14 days. 473 mL 5 10:12 AM EST 2024 traMADol (Ultram) 50 MG tabletIndications :Flank pain,History of total knee replacement, unspecified laterality,Primar y osteoarthritis of left knee,Loin pain hematuria syndrome,Chronic back pain, unspecified back location, unspecified back pain laterality TAKE 1 TABLET BY MOUTH EVERY 8 HOURS NEEDED FOR SEVERE PAIN 10 tablet 2024 Discontinued traMADol (Ultram) 50 MG tabletIndications :Flank pain,History of total knee replacement, unspecified laterality,Primar y osteoarthritis of left knee,Loin pain hematuria syndrome,Chronic back pain, unspecified back location, unspecified back pain laterality TAKE 1 TABLET BY MOUTH EVERY 8 HOURS NEEDED FOR SEVERE PAIN 10 tablet 2024 Discontinued amoxicillin (Amoxil) 500 MG capsule Take 1 capsule (500 mg) by mouth every 12 (twelve) hours for 7 days. 14 capsule 5 4:30 PM EST /16/ 2025 oxyCODONE (Roxicodone) 5 MG immediate release tabletIndications :Pain, dental,History of tooth extraction, unspecified edentulism class Take 1 tablet (5 mg) by mouth every 6 (six) hours if needed for severe pain for up to 3 days. 12 tablet 4:51 PM EST 025 2024 Active Problems [...] dependence. Patient states she is going to [place] tomorrow for about 1 week. Therefore, we agreed that she will be able to chart picker tramadol today, and after she returns from [place] we will discuss about buprenorphine. 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 - Seen by urologist, [facility] 10/08/24 - Pt states she has a follow up appointment tomorrow (? Pt might be going to [place] tomorrow as well). - Discussed about my [...] of lung 04/22/2013 05/04/2023 Asthma with COPD ([facility]) 10/22/2012 Lung mass 10/22/2012 05/04/2023 Anemia 06/05/2012 [...] Encounters Date Type Department Care Team Description 06/30/2025 Refill [facility] [address] [place] [address] mAber Quiroz MD Moderate persistent asthma without complication 06/30/2025 Refill [facility] [address] [place] [address] Dilcia Henry ANP Flank pain; History of total knee replacement, unspecified laterality; Primary osteoarthritis of left knee; Loin pain hematuria syndrome; Chronic back pain, unspecified back location, unspecified back pain laterality; Moderate persistent asthma without complication 06/25/2025 Telephone [facility] [address] [place] [address] Rachelle Lucero RN 06/23/2025 Patient Outreach [facility] [address] [place] [phone] Amber Quiroz MD 06/23/2025 Patient Outreach [facility] [address] [place] [phone] Amber Quiroz MD Care Coordination ([address] Sherry Herbert telephone call outreach) 06/19/2025 Patient Outreach [facility] [address] [place] [address] Amber Quiroz MD 06/17/2025 Refill [facility] [address] [place] [address], [place] [address] Bob Morel DDS Pain, dental; History of tooth extraction, unspecified edentulism class 06/16/2025 Telephone [facility] [address] [place] [address] BOLANO 06/16/2025 Refill [facility] [address] [place] [address] Dilcia Henry ANP Flank pain; History of total knee replacement, unspecified laterality; Primary osteoarthritis of left knee; Loin pain hematuria syndrome; Chronic back pain, unspecified back location, unspecified back pain laterality 06/16/2025 Telephone [facility] [address] [place] [address] BOLANO 06/10/2025 1:00 PM EST Office Visit [facility] [address] [place] [phone] Bob Morel DDS Pain, dental (Primary Dx); History of tooth extraction, unspecified edentulism class 06/10/2025 Refill [facility] [address] [place] [phone] Bob Morel DDS Pain, dental; Severe dental caries 06/03/2025 Refill [facility] [address] [place] [address] Amber Quiroz MD Flank pain; History of total knee replacement, unspecified laterality; Primary osteoarthritis of left knee; Loin pain hematuria syndrome; Chronic back pain, unspecified back location, unspecified back pain laterality 05/23/2025 Telephone [facility] [address] [place] [phone] Niurka Logan MA 05/22/2025 Orders Only [facility] [address] [place] [address] Inez Welch MD 05/20/2025 1:00 PM EST Clinical Support [facility] [address], [place] [phone] Rachelle Lucero RN Chronic pain of left knee (Primary Dx); Long-term current use of opiate analgesic 05/20/2025 Refill [facility] [address] [place] [address] Amber Quiroz MD Flank pain; History of total knee replacement, unspecified laterality; Primary osteoarthritis of left knee; Loin pain hematuria syndrome; Chronic back pain, unspecified back location, unspecified back pain laterality 05/20/2025 Travel 05/19/2025 Patient Outreach [facility] [address] [place] [phone] Amber Quiroz MD Pre-visit Planning (SDOH screening was completed on 11/12/2024) 05/19/2025 Telephone [facility] [address] [place] [address] [phone] ACOSTA 05/16/2025 2:30 PM EST Office Visit [facility] [address] [place] [phone] Laurita Wilder DDS Lip biting (Primary Dx) 05/15/2025 9:30 AM EST Office Visit [facility] [address] [place] [phone] Zakhary, Ron Pain, dental (Primary Dx); Severe dental caries 05/14/[address] [address] Amber Quiroz MD Nurse Triage 05/14/[address] [address] Amber Quiroz MD Med Refill 05/13/2025 Orders Only [facility] [address] [place] [address] Inez Welch MD 05/12/2025 Refill [facility] [address] [place] [address] Amber Quiroz MD Flank pain; History of total knee replacement, unspecified laterality; Primary osteoarthritis of left knee; Loin pain hematuria syndrome; Chronic back pain, unspecified back location, unspecified back pain laterality 05/01/2025 Orders Only [facility] External Provider, [facility] 04/30/2025 Telephone [facility] [address] [place] [address] Rachelle Lucero RN 04/29/2025 Orders Only GENERIC EXTERNAL DATA DEPARTMENT Provider, Generic External Data 04/29/2025 Telephone [facility] [address] [place] [address] Amber Quiroz MD Triage 04/29/2025 Travel 04/24/2025 Travel 04/24/[address] [address] Amber Quiroz MD Med Refill 04/24/2025 Refill [facility] [address] [place] [address] Amber Quiroz MD Moderate persistent asthma without complication; Flank pain; History of total knee replacement, unspecified laterality; Primary osteoarthritis of left knee; Loin pain hematuria syndrome; Chronic back pain, unspecified back location, unspecified back pain laterality 04/19/2025 Orders Only GENERIC EXTERNAL DATA DEPARTMENT Provider, Generic External Data 04/18/2025 Patient Outreach [address] [address] Amber Quiroz MD Care Coordination ([facility]3 -[facility] telephone call outreach) 04/17/2025 Orders Only GENERIC EXTERNAL DATA DEPARTMENT Provider, Generic External Data 04/16/2025 Patient Outreach [address] [address] Amber Quiorz MD Care Coordination ([facility] -[facility] telephone call outreach ) 04/16/2025 Patient Outreach [facility] [address] [place] [address] Amber Quiroz MD Care Coordination (C3- chart review) 04/16/2025 Patient Outreach [address] [address] Amber Quiroz MD 04/11/2025 Telephone [facility] [address] [place] [address] Rachelle Lucero RN 04/04/2025 Refill [facility] [address] [place] [address] Amber Quiroz MD Moderate persistent asthma without complication; Flank pain; History of total knee replacement, unspecified laterality; Primary osteoarthritis of left knee; Loin pain hematuria syndrome; Chronic back pain, unspecified back location, unspecified back pain laterality from Last 3 Months Immunizations Immunization Administration [...] Description 07/31/2025 3:00 PM EST Clinical Support [facility] [address] [place] [address] Rachelle Lucero, RN [address] [place], [place] 11/04/2025 1:30 PM EDT Office Visit [facility] [address] [place] [address] Comfort Chang, OD [address] [place] [address] Health Maintenance Due Date Last Done Comments [...] Screening 09/03/2025 09/03/2024 Disability Screening 11/12/2025 11/12/2024 Tobacco Screening 06/10/2026 06/10/2025 SDOH Screening 06/23/2026 06/23/2025 Cervical Cancer Screening 07/30/2026 HPV/Cotest 07/30/2026 07/30/2021, [...] WO CONTRAST Routine 06/15/2025 9:04 AM EST CASE PRESENTATION, DETAILED AND EXTENSIVE TREATMENT [...] Pelvis w/o Contrast (06/15/2025 9:04 AM EST) Only the most recent of2 resultswithin the time period is included. Anatomical Region Laterality Modality Body, Pelvis, Abdomen Computed T omography 06/15/2025 9:04 AM EST Narrative 06/15/2025 9:06 AM EST [address] [address] [address] Scan Report Signed Patient: John Marquez MR#: [id number] 760 : 1965 Acct:[id number] Age/Sex: 59 / F ADM Date: 06/15/25 Loc: HO.ED Attending Dr: Ordering Physician: Ariane Swan MD Date of Service: 06/15/25 Procedure(s): CT abdomen pelvis wo IV con Accession Number(s): [id number] cc: Ariane Swan MD; Amber Quiroz MD Report Number: [id number]: Total DLP = 468.00 mGy-cm Reason for [...] in OV> 06/15/25904 DD/ 3 TD/TT: 06/15/25903 Slope Tender: Procedure Note Donotuseinterpreter, Image - 06/15/[address] [place] [address] [address] Scan Report Signed Patient: Heidi Marquez#: [id number] 760 : 1965Acct:[id number] Age/Sex: 59 / FADM Date: 06/15/25 Loc: HO.ED Attending Dr: Ordering Physician: Ariane Swan MD Date of Service: 06/15/25 Procedure(s): CT abdomen pelvis wo IV con Accession Number(s): [id number] cc: Ariane Swan MD; Amber Quiroz MD Report Number: [id number]: Total DLP = 468.00 mGy-cm Reason for [...] in OV> 06/15/25904 DD/ 3 TD/TT: 06/15/25903 Slope Tender: us [facility] External Provider IMG CT PROCEDURES Final Result * (ABNORMAL) POCT [id number] Urine Drug Screen [...] PM EST . Internal Pass Control Lot# [id number] Exp: 04-08-26 Amber Quiroz MD POINT OF CARE TEST ENTER/EDIT OR DERABLES Final Result * CT Abdomen Pelvis w/ Contrast (05/13/2025 11:45 AM EST) Only the most recent of2 resultswithin the time period is included. Anatomical Region Laterality Modality Body, Pelvis, Abdomen Computed T omography Historical Provider IMG CT PROCEDURES Final R esult * CTA Abdomen w/ and w/o Contrast (05/01/2025 1:50 PM EDT) Anatomical Region Laterality Modality Body, Abdomen Computed Tomogra phy 05/01/2025 1:50 PM EDT Narrative 05/01/2025 2:17 PM EDT [address] [address] [address] Scan Report Signed Patient: John Marquez MR#: [id number] 760 : 1965 Acct:[id number] Age/Sex: 59 / F ADM Date: 05/01/25 Loc: HO.ED Attending Dr: Ordering Physician: Jeovany Cunningham MD Date of Service: 05/01/25 Procedure(s): CT angio abdomen Accession Number(s): [id number] cc: Jeovany Cunningham MD; Amber Quiroz MD Report Number: [id number]: Total DLP = 197.00 mGy-cm Reason for [...] 05/01/25 1414 DD/ 1350 TD/TT: 05/01/25 1405 Slope Tender: Procedure Note Donotuseinterpreter, Image - 05/01/[address] [place] [address] [address] Scan Report Signed Patient: Heidi Marquez#: [id number] 760 : 1965Acct:[id number] Age/Sex: 59 / FADM Date: 05/01/25 Loc: HO.ED Attending Dr: Ordering Physician: Jeovany Cunningham MD Date of Service: 05/01/25 Procedure(s): CT angio abdomen Accession Number(s): [id number] cc: Jeovany Cunningham MD; Amber Quiroz MD Report Number: [id number]: Total DLP = 197.00 mGy-cm Reason for [...] 05/01/25 1414 DD/ 1350 TD/TT: 05/01/25 1405 Slope Tender: [facility] External Provider IMG CT PROCEDURES Final Result * (ABNORMAL) Comprehensive Metabolic Panel (04/29/2025 12:14 PM EDT) Only the most recent of3 resultswithin the time period is included. Sodium 144 135 - 145 mmol/L [facility] Potassium 3.3 3.3 - 5.1 mmol/L [facility] Chloride 111(H) 96 - 108 mmol/L [facility] Carbon Dioxide 26 22 - 29 mmol/L [facility] Anion Gap 10(L) 12 - 20 [facility] Urea Nitrogen (BUN) 14 9 - 16 mg/dL [facility] Creatinine, Serum 0.61 0.5 - 1.4 mg/dL [facility] Creatinine Clr Calc Pharmacy 84.5 [facility] Comment:Provided height and weight: 154.94 cm,64.8 kg.eGFR (calculated from the MDRD study equation) and eCrCl(calculated from the Cockcroft-Gault equation) are based ondifferent parameters and may not yield comparable results.If eCrCl result is absurd, please check patient'sheight/weight. Estimated Glomerular Filt Rate >60 [facility] Comment:Chronic Kidney Disea se: Estimated GFR < 60 mL/min/1.22h5Ppprjq Kidney Disease: Estimated GFR < 15 mL/min/1.73m2 Glucose 92 60 - 115 mg/dL [facility] Calcium 8.9 8.4 - 10.2 mg/dL [facility] Bilirubin, Total 0.5 0.0 - 1.0 mg/dL [facility] Aspartate Amino Transferase 22 5 - 31 U/L [facility] Alanine Aminotransferase 13 0 - 31 U/L [facility] Total Protein 7.1 6.5 - 8.0 g/dL [facility] Albumin Level 4.4 3.5 - 5.0 g/dL [facility] Alkaline Phosphatase 110 39 - 117 U/L [facility] 04/29/2025 12:1 4 PM EDT 04/29/2025 12:17 PM EDT us Generic External Data Provider LAB BLOOD ORDERAB LES Final Result [facility] [address] [place] [address] [phone] * (ABNORMAL) Urinalysis, Complete, with Reflex to Culture (04/29/2025 11:15 AM EDT) Only the most recent of2 resultswithin the time period is included. Color Urine BROWN [facility] Appearance Urine Clear [facility] PH 6.0 5.0 - 9.0 [facility] Glucose Urine UA Negative Negative mg/dL [facility] Urine Blood Large (3+)(A) Negative [facility] Specific [place] - Urine <=1.005 1.005 - 1.025 [facility] Urine Protein 30 (1+)(A) Neg-Trace mg/dL [facility] Urine Ketones Negative Negative mg/dL [facility] Nitrite Urine Positive(A) Negative [facility] Leukocyte Esterase Urine Negative Negative [facility] RBC Urine 6-10(A) 0 - 2 /HPF [facility] Urine WBC 0-5 0 - 5 /HPF [facility] Urine Squamous Epithelial Cell 0-2 0 - 2 /HPF [facility] Urine Bacteria 1+ None Seen [facility] Hyaline Casts, Urine 0-2 0 - 2 /LPF [facility] 04/29/2025 11:1 5 AM EDT 04/29/2025 11:18 AM EDT Narrative [facility] - 04/29/2025 12:22 PM EDT Urine, Clean Catch us Generic External Data Provider LAB URINE ORDERAB LES Final Result [facility] [address] [place] [address] [phone] * (ABNORMAL) CBC auto differential (04/29/2025 11:05 AM EDT) Only the most recent of3 resultswithin the time period is included. White Blood Count 6.2 4.8 - 10.8 X10*3/uL [facility] Red Blood Count 4.50 4.20 - 5.50 X10*6/uL [facility] Hemoglobin 12.0 12.0 - 16.0 g/dl [facility] Hematocrit 37.2 37.0 - 47.0 % [facility] Mean Corpuscular Volume 82.7 80.0 - 98.0 fL [facility] Mean Corpuscular Hemoglobin 26.7(L) 27.0 - 33.0 pg [facility] Mean Corpuscular HGB Conc 32.3 31.0 - 35.0 g/dl [facility] Red Cell Distribution Width 15.6 11.0 - 16.0 % [facility] Platelet Count 321 160 - 400 X10*3/uL [facility] Mean Platelet Volume 9.3(L) 9.4 - 12.3 fL [facility] Neutrophils Percent Auto 68.1 45 - 73 % [facility] Imm Gran Pct Auto 0.2 0.0 - 0.4 % [facility] Lymphocytes Percent Auto 26.0 20 - 40 % [facility] Monocytes Percent Auto 4.8 2 - 11 % [facility] Eosinophils Percent Auto 0.6 0 - 4 % [facility] Basophils Percent Auto 0.3 0 - 2 % [facility] NRBC Pct Auto 0.0 0.0 - 0.2 /100WBC [facility] Neutrophils Absolute Auto 4.3 2.0 - 8.3 x10*3/uL [facility] Imm Gran Abs Auto 0.01 0.00 - 0.03 X10*3/uL [facility] Lymphocytes Absolute Auto 1.6 1.2 - 4.9 X10*3/uL [facility] Monocytes Absolute Auto 0.3 0.1 - 1.2 X10*3/uL [facility] Eosinophils Absolute Auto 0.0 0.0 - 0.4 X10*3/uL [facility] Basophils Absolute Auto 0.0 0.0 - 0.2 X10*3/uL [facility] NRBC Abs Auto 0.000 0.0 - 0.012 X10*3/uL [facility] 04/29/2025 11:0 5 AM EDT 04/29/2025 11:11 AM EDT Generic External Data Provider LAB BLOOD ORDERAB LES Final Result Performing Organization Address [facility] Co de Phone Number [facility] [address] [place] [phone] * Culture, Urine, Routine (04/29/2025 12:00 AM EDT) Only the most recent of2 resultswithin the time period is included. Urine Urine specimen obtained by clean catch procedure / Unknown 04/29/2025 04/29/2025 Comment:UACC Narrative [facility] - 04/30/2025 12:14 PM EDT Urine Culture No growth. Specimen Source: Urine clean catch Generic External Data Provider LAB MICROBIOLOGY - GENERAL ORDERABLES Final Result Performing Organization Address [place] Co hi Phone Number [facility] [address] [place] [phone] * Lipase (04/19/2025 3:19 AM EDT) Lipase 35 8 - 78 U/L [facility] 04/19/2025 3:19 AM EDT 04/19/2025 3:22 AM EDT Generic External Data Provider LAB BLOOD ORDERAB LES Final Result Performing Organization Address [facility] Co de Phone Number [facility] [address] [place] [phone] * (ABNORMAL) Lipid Panel with Reflex to Direct LDL (09/03/2024 4:26 PM EST) Triglycerides 112 <150 mg/dL [facility] Comment:Desirable Triglyceri de: less than 150 mg/dLBorderline High Triglyceride 150-199 mg/dLHigh Triglyceride: 200-499 mg/dLVery High Triglyceride: greater than or equal to 5OO mg/dL Cholesterol 183 <200 mg/dL [facility] Comment:Desirable Cholestero l: less than 200 mg/dLBorderline High Cholesterol: 200-239 mg/dLHigh Cholesterol: greater than 239 mg/dL LDL Cholesterol Calculated 112(H) <100 mg/dL [facility] Comment:Desirable LDL: less than 100 mg/dLNear Optimal/Above Optimal LDL: 110- 129 mg/dLBorderline High LDL: 130-159 mg/dLHigh LDL: 160-189 mg/dLVery High LDL: greater than or equal to 190 mg/dL HDL Cholesterol 49 >40 mg/dL [facility] Comment:Desirable HDL: great er than 40 mg/dL Note: This HDL assay may give artificially low results in patients with liver disease. Blood 09/03/2024 4:26 PM EST 09/03/2024 6:14 PM EST us Amber Quiroz MD LAB BLOOD ORDERABLES Final Resul t [facility] [address] [place] [phone] * (ABNORMAL) THINPREP TIS PAP AND HPV mRNA E6/E7 WITH REFLEX TO HPV 16,18/45 (07/30/2021 10:17 AM EST) Clinical Information: PM BLEEDING [facility] COMMENT SEE COMMENT FOUNDAT[facility] [...] computer assisted technology. [facility] Rac Specialist: SEE COMMENT [facility] Comment: CHELO SORIANO(ASCP) CT screening location: [place] [address] General Categorization: EPITHELIAL CELL ABNORMALITY(A ) [facility] HPV nRNA E6/E7 Not Detected Not Detected [facility] Comment: Methodology: Lumber Sorter-Mediated Amplification This assay detects E6/E7 viral messenger RNA (mRNA) from 14 high-risk HPV types (16,18,31,33,35,39,45,51,52,56,58,59,66,68). The analytical performance characteristics of this assay have been determined by [employer]. The modifications have not been cleared or approved by the FDA. This assay has been validated pursuant to the CLIA regulations and is used for clinical purposes. For additional information, please refer to http://education.[employer]/faq/KPV728v6 (This link if provided for information/ educational purposes only.) Infection Shift in vaginal geovanny suggestive of bacterial vaginosis. [facility] Interpretation/Res ult: SEE COMMENT(A) [facility] Comment: Atypical Squamous Cells of Undetermined Significance (ASC-US) Rare cells are approaching low grade dysplasia. LMP: NONE GIVEN [facility] PATHOLOGIST: SEE COMMENT [facility] Comment: Jennifer Branch M.D., Board Certified in Anatomic and Clinical Pathology (electronic signature) Consulting Pathologist [facility] [phone] Prev. BX: NONE GIVEN [facility] Prev. PAP: NONE GIVEN [facility] SOURCE: None given [facility] Statement Of Adequacy: SEE COMMENT [facility] Comment: Satisfactory for evaluation. Endocervical/transformation zone component present. 07/30/2021 10:1 7 AM EST us Saleem Maier MD LAB PATHOLOGY ORDERABLES Final R esult [facility] [address] from Last 3 Months or Most Recently Relevant to Health Maintenance Insurance [facility] C3 DENTAL-[facility] MEDICAID STAND ADULT Care Teams Fiberglass Grinder Relationship Specialty Start Date End Date Amber Quiroz MD [address] [place] [phone] PCP - General Family Medicine 07/03/18 Fred Parker, D[place] [address] [place] [phone] Registered Nurse Family Medicine 04/16/25 Sherry Herbert 04/16/25
--- OUTSIDE RECORDS SUMMARY | 2025-07-01 00:50 | XMS_ITS | Encounter Summary ---
Author Organization [employer] Address [address] [place] [address] 7 [place] [address] Care Team Providers Care Supervisor Steffen House Name Role Phone Amber Quiroz MD Primary Care Provider [phone] Fred Parker RN Unavailable [phone] Sherry Herbert Unavailable Reason for Visit * Reason Comments Med Refill Encounter Details Date Type Department Care Team (Late st Contact Info) Description 04/26/2023 Refill [facility] MEDICINE [address] [place], [place] [phone] Alan Partida MD [address] [place], [place] [phone] Moderate persistent asthma without complication; Nausea Social [...] Department Care Team (Late Contact Info) Description 07/31/2025 3:00 PM EST Clinical Support [facility] MED [facility] PEDS [address] [place], [place] [phone] Rachelle Lucero, [place] [address] [place], [place] [phone] 11/04/2025 1:30 PM EDT Office Visit [facility] OPTOMETRY [address] [place] [address] Comfort Chang, OD [address] [place] [address] documented as of this encounter Visit Diagnoses Diagnosis Moderate persistent asthma without complication Nausea Nausea alone documented in this encounter Care Teams Supervisor Steffen House Relationship Specialty Start Date End Date Amber Quiroz MD [address] [place], [place] [phone] PCP - General Family Medicine 07/03/18 Fred Parker, RN [address] [place] [id number] Registered Nurse Family Medicine 04/16/25 Sherry Herbert 04/16/25 documented as of this encounter
--- OUTSIDE RECORDS SUMMARY | 2025-07-01 00:50 | XMS_ITS | Encounter Summary ---
Author Organization [employer] Address [address] [facility] [address] [address] 7 [place] [address] Care Team Providers Care Trekking Guide Name Role Phone Amber Quiroz MD Primary Care Provider Fred Parker RN Unavailable [phone] Sherry Herbert Unavailable Encounter Details Date Type Department Care Team (Late st Contact Info) Description 03/22/2023 Orders Only [facility] MEDICINE [address] [place], [place] [phone] Amber Quiroz MD [address] [place], [place] [phone] ASCUS of cervix with negative high risk [...] Description 07/31/2025 3:00 PM EST Clinical Support [facility]ED[facility] [address] [place], [place] [phone] Rachelle Lucero, [place] [address] [place], [place] [phone] 11/04/2025 1:30 PM EDT Office Visit [facility] OPTOMETRY [address] [place] [address] Comfort Chang, OD [address] [place] [address] documented as of this encounter Visit Diagnoses Diagnosis ASCUS of cervix with negative high risk HPV- Primary History of cervical dysplasia Personal history of cervical dysplasia documented in this encounter Care Teams Trekking Guide Relationship Specialty Start Date End Date Amber Quiroz MD [address] [place], [place] [phone] PCP - General Family Medicine 07/03/18 Fred Parker, RN [address] [place] [id number] Registered Nurse Family Medicine 04/16/25 Sherry Herbert 04/16/25 documented as of this encounter
--- NOTE | 2025-07-01 00:58 | ED.FALL ---
HPI - Fall General Chief Complaint: Fall Stated Complaint: Fall Time Seen by Provider: 07/01/25 00:45 Source: patient and EMS Mode of arrival: EMS Limitations: no limitations History of Present Illness ED Provider: Dr. Joann Herman HPI Narrative: Patient comes to the emergency room complaining lou pain. Patient states that she slipped when she was walking outside. Patient states that she has not been able to ambulance since the incident. However, patient picked her up from the 3rd floor in her apartment. Patient states that she has pain head to toe. However, what hurts her the most is the lou ar Related Data Home Medications ?Medication ?Instructions ?Recorded ?Confirmed ascorbic acid (vitamin C) 250 mg 1 tab PO BID 11/26/20 05/01/25 tablet loratadine 10 mg tablet 10 mg PO DAILY 11/26/20 05/01/25 albuterol sulfate 90 mcg/actuation 2 puff inhalation Q4-6H PRN dyspnea 05/01/25 05/01/25 aerosol inhaler (Ventolin HFA) amlodipine 10 mg tablet 10 mg PO DAILY 05/01/25 05/01/25 atorvastatin 10 mg tablet 10 mg PO DAILY 05/01/25 05/01/25 clonazepam 0.5 mg tablet 0.5 mg PO BID PRN anxiety attack 05/01/25 05/01/25 fluoxetine 20 mg capsule 60 mg PO DAILY 05/01/25 05/01/25 gabapentin 300 mg capsule 300 mg PO TID 05/01/25 05/01/25 mirtazapine 45 mg tablet 45 mg PO BEDTIME 05/01/25 05/01/25 prazosin 2 mg capsule 2 mg PO BEDTIME 05/01/25 05/01/25 quetiapine 200 mg tablet 200 mg PO BEDTIME 05/01/25 05/01/25 zolpidem 10 mg tablet 10 mg PO BEDTIME PRN insomnia 05/01/25 05/01/25 Previous Rx's ?Medication ?Instructions ?Recorded acetaminophen 325 mg tablet 975 mg (3 x 325 mg) PO Q6H PRN 05/02/25 pain #10 tabs lidocaine 4 % topical patch 2 patch transdermal DAILY #10 ea 05/02/25 (Lidocaine Pain Relief) cyclobenzaprine 10 mg tablet 10 mg PO TID PRN muscle spasm #20 05/20/25 tabs Allergies Allergy/AdvReac Type Severity Reaction Status Date / Time aspirin (ASA) Allergy Intermediate RASH, Verified 06/30/25 22:46 nausea and vomiting ibuprofen (IBUPROFEN) Allergy Intermediate RASH Verified 06/30/25 22:46 nicotine Allergy Intermediate RASH FROM Verified 06/30/25 22:46 NICOTINE PATCH, nausea and vomiting ketorolac (From TORADOL) Allergy Mild RAPID HR Verified 06/30/25 22:46 AND HIVES acetaminophen Allergy Rash Verified 06/30/25 22:46 haloperidol (From Haldol) Allergy Anaphylaxis Verified 06/30/25 22:46 metoclopramide (From Reglan) Allergy Unknown Verified 06/30/25 22:46 Review of Systems Review of Systems: Constitutional : No Weight loss, No Fever, No Chills, No Night Sweats, No Fatigue, No Malaise ENT/Mouth : No Hearing loss, No Ear Pain, No Nasal Congestion, No Sinus Pain, No Hoarseness, No sore throat, No Rhinorrhea, No Swallowing Difficulty Eyes: No Eye Pain, No Swelling, No Redness, No Foreign Body, No Discharge, No Vision Changes Cardiovascular : No Chest Pain, No SOB, No Dyspnea on Exertion, No Orthopnea, No Edema, No Palpitations Respiratory : No Cough, No Sputum, No Wheezing, No Smoke Exposure, No Dyspnea Gastrointestinal : No Nausea, No Vomiting, No Diarrhea, No Constipation, No abdominal Pain, No Hematochezia, No Melena Genitourinary : no irregular bleeding, No Dysuria, No Urinary Frequency, No Hematuria, No Urinary Incontinence, No Urgency, No Flank Pain, No Urinary Flow Changes, No Hesitancy Musculoskeletal : complaining of right lou pain, No Myalgias, No Joint Swelling Skin : No Skin Lesions, No rash Neuro : No Weakness, No Numbness, No Paresthesias, No Loss of Consciousness, No Dizziness, No Headache Psych : No Anxiety/Panic, No Depression, No SI/HI/AH/VH, No Social Issues, Heme/Lymph: No Bruising, No Bleeding,No Lymphadenopathy Endocrine : No Polyuria, No Polydipsia, No Temperature Intolerance [facility] Past Medical History Medical History Drug-seeking behavior delivery delivered HTN (hypertension) Anemia Hypercholesteremia DVT (deep venous thrombosis) Kidney stones Surgical History Total knee replacement status Social History Social History Household Members: None Housing: Apartment Do you presently have visiting nurse or other home services: Yes ([employer]) Alcohol intake: never Patient Tobacco Use Status: Never used Tobacco Substance Use Type: Prescription Drugs Advance Directives: No Advance Directives Information Provided: Yes service: No Physical Exam Exam: Exam: Appearance: Alert. Oriented X3. No acute distress. Eyes: Pupils equal, round and reactive to light. ENT: Pharynx normal. Neck: Normal inspection. Neck supple. No lymph nodes noted. No crepitus CVS: Normal heart rate and rhythm. Pulses normal. Normal S1 and S2 Respiratory: No respiratory distress. Breath sounds normal. No Wheezing. No rales Abdomen: Soft and nontender. No rigidity. No distention. Skin: there is ecchymosis around the right lou area. Extremities: No lower extremity edema. No Lacerations. No Rash Neuro: Oriented X 3. No motor deficit. No sensory deficit. Moving all extremities. No slurred speech. CN 2 through 12 grossly intact Psych: calm, cooperative, normal affect Vital Signs: Vital Signs: Last Vital Signs Temp 97.7 F 06/30/25 22:44 Pulse 84 06/30/25 22:44 Resp 20 06/30/25 22:44 BP 108/58 L 06/30/25 22:44 Pulse Ox 98 06/30/25 22:44 O2 Del Method Room Air 06/30/25 22:44 BMI result Body Mass Index 26.4 Course Course Course Narrative: Patient states that she is allergic to aspirin, ibuprofen, Tylenol, tramadol x-rays have been taken lidocaine patch pending - of note, patient's notes will be on a paper chart, we will be going on down time Medications Administered Discontinued Medications Generic Name Dose Route Start Last Admin Trade Name Heq PRN Reason Stop Dose Admin Cyclobenzaprine HCl 5 mg 07/01/25 01:01 07/01/25 01:06 Cyclobenzaprine Hcl 5 Mg Tablet PO 07/01/25 01:02 Not Given ONCE ONE Lidocaine 1 patch 07/01/25 00:50 07/01/25 01:06 Lidocaine 4 % Patch Adh..Patch TRANSDERMA 07/01/25 00:51 Not Given ONCE ONE Protocol Medical Decision Making Medical Decision Making MDM Narrative: an x-ray has been ordered. Results pending. Patient demanding pain medication, states that she can not walk because of so much pain. Patient was given a lidocaine patch, cyclobenzaprine pain and also gabapentin has been considered. the patient's nurse went to apply the patch, patient states that she has that at home and did not want anything else. although patient has had earlier today that she could not walk because of pain, patient stood up and walked out of the ED with normal steady gait Discharge Plan Discharge Clinical Impression: Pain in lou Patient Disposition: Elopement Prescriptions: No Action ascorbic acid (vitamin C) 250 mg tablet 1 tab PO BID loratadine 10 mg tablet 10 mg PO DAILY atorvastatin 10 mg tablet 10 mg PO DAILY clonazepam 0.5 mg tablet 0.5 mg PO BID PRN (Reason: anxiety attack) quetiapine 200 mg tablet 200 mg PO BEDTIME amlodipine 10 mg tablet 10 mg PO DAILY gabapentin 300 mg capsule 300 mg PO TID mirtazapine 45 mg tablet 45 mg PO BEDTIME zolpidem 10 mg tablet 10 mg PO BEDTIME PRN (Reason: insomnia) albuterol sulfate [Ventolin HFA] 90 mcg/actuation HFA aerosol inhaler 2 puff INHALATION Q4-6H PRN (Reason: dyspnea) fluoxetine 20 mg capsule 60 mg PO DAILY prazosin 2 mg capsule 2 mg PO BEDTIME acetaminophen 325 mg Tablet 975 mg PO Q6H PRN (Reason: pain) Qty: 10 0RF lidocaine [Lidocaine Pain Relief] 4 % Adhesive Patch,Medicated 2 patch transdermal DAILY Qty: 10 0RF Protocol: Apply to: Apply to: affected area cyclobenzaprine 10 mg tablet 10 mg PO TID PRN (Reason: muscle spasm) Qty: 20 0RF Print Language: Luxembourgish
--- NOTE | 2025-07-01 01:07 | PC.NURSE ---
pt refused everything and walked out of department. MD Herman made aware.
== END 2025-07-01 01:07 | disposition left against medical advice (07) ==
PROVIDERS: Emergency Provider Emergency Medicine
DX: M79.661 Pain in right lower leg (principal); I10 Essential (primary) hypertension; Z86.718 Personal history of other venous thrombosis and embolism
CPT/HCPCS: 73590; 99281; 99283